=== PATIENT | female | born 1995 | race Caucasian/White ===

== ENCOUNTER 2021-11-12 14:47 | Emergency (ER) | payer MEDICAID, SELFPAY ==
[2021-11-12 14:54] VITALS: BP 137/81; BP 140/83; PULSE 105; PULSE 92; RESP 16; TEMP 36.3; O2SAT 100; BMI 18.7
--- NOTE | 2021-11-12 15:05 | ECG_ITS ---
Test Reason : WEAKNESS Blood Pressure : / mmHG Vent. Rate : 087 BPM Atrial Rate : 087 BPM P-R Int : 122 ms QRS Dur : 086 ms QT Int : 400 ms P-R-T Axes : 047 082 -14 degrees QTc Int : 481 ms Normal sinus rhythm T wave abnormality, consider inferior ischemia Prolonged QT Abnormal ECG No previous ECGs available Referred By: Ashley Mark Electronically Signed By:ROSIO BURTON
--- NOTE | 2021-11-12 15:08 | ED_ITS ---
HPI - Arrhythmia/Palpitations General Chief Complaint: Weakness Stated Complaint: increased hr Time Seen by Provider: 11/12/21 14:55 Source: patient Mode of arrival: EMS Limitations: no limitations History of Present Illness HPI narrative: Patient presents emergency department for evaluation of palpitations. She s tates that palpitations began 1 hour prior to arrival, and has associated intermittent shortness of breath and tingling sensation to the bilateral hands. She reports a history of anemia and the thyroid problem. Last blood transfusion was 1.5 years ago. Not currently taking any medications for her thyroid. Denies possibility of , history of tubal ligation currently menstruating. Denies heavy menstrual bleeding at this time. MD complaint: heart racing Onset (ago): hour(s) Duration: constant Associated symptoms: shortness of breath and paresthesias Related Data Allergies Allergy/AdvReac Type Severity Reaction Status Date / Time Penicillins Allergy Intermediate Unknown Verified 11/12/21 15:08 oxycodone Allergy Unknown Unknown Verified 11/12/21 15:08 codeine Allergy Unknown Verified 11/12/21 15:08 Review of Systems Review of Systems: Constitutional: No weight loss. No fever. No chills. No weakness. No fatigue. Eye: No swelling. No redness. ENT: No sore throat. No rhinorrhea. No nasal congestion. No sore throat. No difficulty swallowing. Skin: No rash. No itching. Cardiovascular: No chest pain. No chest pressure. Positive palpitations. No pedal edema. Respiratory: No shortness of breath. No cough. No sputum production. Gastrointestinal: No anorexia. No nausea. No vomiting. No diarrhea. No abdominal pain. No blood in stool. Genitourinary: No burning micturition. No urinary frequency. No incontinence. Neurologic: No headache. No dizziness. No pre-syncope/ syncope. No unilateral weakness. No ataxia. No numbness. Positive tingling. No change in bowel or bladder control. Musculoskeletal: No muscle pain. No back pain. No joint pain. No stiffness. Hematologic: No bleeding. No bruising. Lymphatics: No enlarged lymph nodes. Psychiatric:No depression. No anxiety. Endocrine: No reports of sweating. No cold or heat intolerance. No polyuria. No polydipsia. Yes all other systems are reviewed and are negative PMFSH Past Medical History Attestation statement: The following information was validated with the patient. Source: old records reviewed Social History Social History Advance Directives: No Advance Directives Information Provided: No Patient : No Physical Exam Vital Signs: Vital Signs: Last Vital Signs Temp 97.4 F 11/12/21 14:54 Pulse 87 11/12/21 16:44 Resp 20 11/12/21 16:44 BP 124/73 11/12/21 16:44 Pulse Ox 100 11/12/21 16:44 O2 Del Method 11/12/21 16:44 BMI result Body Mass Index 18.7 Vital signs have been reviewed as normal and appeared to be correct. Mild hyper tension.? Heart rate normal.? Respiration rate normal. Temperature normal.? Oxygen saturation normal. Appearance: Alert.?Oriented to person, place and time. No acute distress.?Normal affect. Eyes: Pupils equal, round and reactive to light.? ENT: Pharynx normal.?? Neck: Normal inspection.? Neck supple.?? CVS: Heart sounds normal. Mild tachycardia.? Pulses normal.?? Respiratory: No respiratory distress.? Lung sounds clear to auscultation bilat erally?? Abdomen: Soft and non-tender. Normoactive bowel sounds. No pulsatile mass.?? Skin: Skin warm and dry.? Skin appears pale.? Normal skin turgor.?? Extremities: No lower extremity edema.? No calf ttp? Neuro: Moves all extremities spontaneously. Sensation intact bilaterally. No motor deficits Ambulates with normal steady gait. Course Course Course Narrative: Patient is a 26-year-old female with a past medical history of anemia, abnormal thyroid function, presenting for evaluation of palpitations x1 hour. She is overall well appearing, hemodynamically stable mild hypertension and tachycardia with heart rate no greater than 105. Will obtain CBC to evaluate for leukocytosis/ anemia, CMP to evaluate for abnormal electrolytes /abnormal renal function/ abnormal hepatic function, EKG and troponin to evaluate for ischemia/ACS. Urinalysis to evaluate for infection/ . Reevaluation(s) Reevaluation #1: Microcytic anemia hemoglobin 10.8 hematocrit 34.5. CMP is overall unremarkable. EKG with T-wave inversions in the inferior and anterior leads no prior EKGs available for review, patient unaware whether this is been present in the past when asked, no active chest pain, Troponin <3.5, HEART score 0, unlikely ACS. TSH is normal. No further reports of palpitations. Urinalysis unable to be obtained, patient declines waiting to have urinalysis sent, denies possibility of as she has a tubal ligation. Discussed plan of care for patient to establish care with a new primary care provider she has recently moved to this area, discussed reasons that she should return back to the emergency department, all questions were answered, and she was discharged home in stable condition. Time: 16:22 [facility] - Arrhythmia/Palpitations Medical Records Attestation: I reviewed the patient's medical records. Lab Data Attestation: I reviewed the patient's lab results. Result diagrams: 11/12/21 15:43 11/12/21 15:43 Labs: Lab Results 11/12/21 11/12/21 11/12/21 Range/Units 15:43 15:43 15:43 WBC 7.5 (4.8-10.8) X10*3/uL RBC 4.36 (4.20-5.50) X10*6/uL Hgb 10.8 L (12.0-16.0) g/dl Hct 34.5 L (37.0-47.0) % MCV 79.1 L (80.0-98.0) fL MCH 24.8 L (27.0-33.0) pg MCHC 31.3 (31.0-35.0) g/dl RDW 16.3 H (11.0-16.0) % Plt Count 312 (160-400) X10*3/uL MPV 10.0 (9.4-12.3) fL Immature Gran % (Auto) 0.1 (0.0-0.4) % Neut % (Auto) 84.1 H (45-73) % Lymph % (Auto) 10.9 L (20-40) % [place] % (Auto) 4.4 (2-11) % Eos % (Auto) 0.1 (0-4) % Baso % (Auto) 0.4 (0-2) % Lymph # (Auto) 0.8 L (1.2-4.9) X10*3/uL [place] # (Auto) 0.3 (0.1-1.2) X10*3/uL Eos # (Auto) 0.0 (0.0-0.4) X10*3/uL Baso # (Auto) 0.0 (0.0-0.2) X10*3/uL Abs Immat Gran (auto) 0.01 (0.00-0.03) X10*3/uL Absolute Neuts (auto) 6.3 (2.0-8.3) x10*3/uL Absolute Nucleated RBC 0.000 (0.0-0.012) X10*3/uL Nucleated RBC % (auto) 0.0 (0.0-0.2) /100WBC Sodium 139 (135-145) mmol/L Potassium 4.0 (3.3-5.1) mmol/L Chloride 108 (96-108) mmol/L Carbon Dioxide 21 L (22-29) mmol/L Anion Gap 14 (12-20) BUN 7 L (9-16) mg/dL Creatinine 0.73 (0.5-1.4) mg/dL Estim Creat Clear Calc 94.0 Estimated GFR > 60 Random Glucose 92 (60-115) mg/dL Calcium 8.9 (8.4-10.2) mg/dL Magnesium 1.7 (1.6-2.6) mg/dL Total Bilirubin 0.3 (0.0-1.0) mg/dL AST 21 (5-31) U/L ALT 10 (0-31) U/L Alkaline Phosphatase 95 (39-117) U/L Troponin I High Sens < 3.5 (<3.5-17.0) ng/L Total Protein 6.8 (6.5-8.0) g/dL Albumin 4.4 (3.5-5.0) g/dL TSH 0.72 (0.32-4.0) uIU/mL ECG Data Attestation: I personally reviewed and interpreted this ECG as follows: ECG interpretation date: 11/12/21 Prior ECG tracings: not available for review Interpretation: Rate: 87 Rhythm:? Normal sinus rhythm [place]:? Normal Normal P waves.? Normal [place].?? Normal QRS complex.?? ST T wave :? T-wave inversion in inferior and anterior leads, no prior EKGs available. qTC: 481 prior studies:? None available for review. The study has been interpreted contemporaneously by me. Discharge Plan Discharge Clinical Impression: Palpitations, Anemia Patient Disposition: Home, Self-Care Instructions: Heart Palpitations (ED), Anemia (ED) Additional Instructions: As we discussed, you are anemic, you should contact local primary care offices to establish care as a new patient. You may return to the emergency department with any new or worsening symptoms or concerns. Interventions: ED Discharge Assessment Last Done: 11/12/21 17:13 Discharge Date/Time: 11/12/21 17:13
[2021-11-12 15:49] LABS: MANUAL DIFF FLAG NO
[2021-11-12 15:51] LABS: Basophils Percent Auto 0.4 % (0-2); Eosinophils Percent Auto 0.1 % (0-4); Hematocrit 34.5 % (37.0-47.0); Hemoglobin 10.8 g/dl (12.0-16.0); Imm Gran Abs Auto 0.01 X10*3/uL (0.00-0.03); Imm Gran Pct Auto 0.1 % (0.0-0.4); Lymphocytes Absolute Auto 0.8 X10*3/uL (1.2-4.9); Lymphocytes Percent Auto 10.9 % (20-40); Mean Corpuscular HGB Conc 31.3 g/dl (31.0-35.0); Mean Corpuscular Hemoglobin 24.8 pg (27.0-33.0); Mean Corpuscular Volume 79.1 fL (80.0-98.0); Monocytes Absolute Auto 0.3 X10*3/uL (0.1-1.2); Monocytes Percent Auto 4.4 % (2-11); Neutrophils Absolute Auto 6.3 x10*3/uL (2.0-8.3); Neutrophils Percent Auto 84.1 % (45-73); Platelet Count 312 X10*3/uL (160-400); Red Blood Count 4.36 X10*6/uL (4.20-5.50); Red Cell Distribution Width 16.3 % (11.0-16.0); White Blood Count 7.5 X10*3/uL (4.8-10.8)
[2021-11-12 16:19] LABS: Alanine Aminotransferase 10 U/L (0-31); Albumin Level 4.4 g/dL (3.5-5.0); Alkaline Phosphatase 95 U/L (39-117); Anion Gap 14 (12-20); Aspartate Amino Transferase 21 U/L (5-31); Bilirubin Total 0.3 mg/dL (0.0-1.0); Blood Urea Nitrogen 7 mg/dL (9-16); Calcium 8.9 mg/dL (8.4-10.2); Carbon Dioxide 21 mmol/L (22-29); Chloride 108 mmol/L (96-108); Estimated Glomerular Filt Rate > 60; Glucose Random 92 mg/dL (60-115); Magnesium 1.7 mg/dL (1.6-2.6); Sodium 139 mmol/L (135-145); Total Protein 6.8 g/dL (6.5-8.0)
[2021-11-12 16:22] LABS: Troponin-I High Sensitivity < 3.5 ng/L (<3.5-17.0)
[2021-11-12 16:39] LABS: TSH reflex Free T4 0.72 uIU/mL (0.32-4.0)
[2021-11-12 16:44] VITALS: BP 124/73; PULSE 87; RESP 20; O2SAT 100
[2021-11-12 18:35] LABS: Glucose, Whole Blood 97 mg/dL (60-115)
== END 2021-11-12 17:13 | disposition home or self-care (01) ==
PROVIDERS: Nurse Practitioner Family; Emergency Provider Emergency Medicine
DX: R00.2 Palpitations (principal); D64.9 Anemia, unspecified; E07.9 Disorder of thyroid, unspecified
CPT/HCPCS: 36415; 80053; 82947; 83735; 84443; 84484; 85025; 93005; 99283; 99284

== ENCOUNTER 2021-11-26 12:05 | Emergency (ER) | payer MEDICAID, SELFPAY ==
[2021-11-26 12:08] VITALS: BP 120/70; PULSE 84; O2SAT 99
--- NOTE | 2021-11-26 12:10 | ECG_ITS ---
Test Reason : TACHYCARDIA Blood Pressure : / mmHG Vent. Rate : 077 BPM Atrial Rate : 077 BPM P-R Int : 110 ms QRS Dur : 072 ms QT Int : 402 ms P-R-T Axes : 070 079 019 degrees QTc Int : 454 ms poor\ Sinus rhythm with short ND Otherwise normal ECG When compared with ECG of 12-NOV-2021 15:23, T wave inversion no longer evident in Inferior leads T wave inversion no longer evident in Anterior leads Referred By: Rohan Collins Electronically Signed By:JANICE COLE MD
[2021-11-26 12:17] VITALS: BP 115/71; PULSE 70; RESP 18; TEMP 36.1; O2SAT 100; BMI 17.1
[2021-11-26 14:50] LABS: MANUAL DIFF FLAG NO
[2021-11-26 14:54] LABS: Basophils Percent Auto 0.4 % (0-2); Eosinophils Percent Auto 0.1 % (0-4); Hematocrit 35.1 % (37.0-47.0); Hemoglobin 10.9 g/dl (12.0-16.0); Imm Gran Abs Auto 0.02 X10*3/uL (0.00-0.03); Imm Gran Pct Auto 0.3 % (0.0-0.4); Lymphocytes Absolute Auto 1.5 X10*3/uL (1.2-4.9); Lymphocytes Percent Auto 19.5 % (20-40); Mean Corpuscular HGB Conc 31.1 g/dl (31.0-35.0); Mean Corpuscular Hemoglobin 24.4 pg (27.0-33.0); Mean Corpuscular Volume 78.7 fL (80.0-98.0); Mean Platelet Volume 10.5 fL (9.4-12.3); Monocytes Absolute Auto 0.4 X10*3/uL (0.1-1.2); Monocytes Percent Auto 5.8 % (2-11); Neutrophils Absolute Auto 5.5 x10*3/uL (2.0-8.3); Neutrophils Percent Auto 73.9 % (45-73); Platelet Count 291 X10*3/uL (160-400); Red Blood Count 4.46 X10*6/uL (4.20-5.50); Red Cell Distribution Width 15.7 % (11.0-16.0); White Blood Count 7.5 X10*3/uL (4.8-10.8)
[2021-11-26 15:11] LABS: Alanine Aminotransferase 11 U/L (0-31); Albumin Level 4.6 g/dL (3.5-5.0); Alkaline Phosphatase 101 U/L (39-117); Anion Gap 14 (12-20); Aspartate Amino Transferase 24 U/L (5-31); Bilirubin Total 0.9 mg/dL (0.0-1.0); Blood Urea Nitrogen 9 mg/dL (9-16); Calcium 9.3 mg/dL (8.4-10.2); Carbon Dioxide 23 mmol/L (22-29); Chloride 104 mmol/L (96-108); Creatinine Clr Calc Pharmacy 93.7; Estimated Glomerular Filt Rate > 60; Glucose Random 101 mg/dL (60-115); Potassium 4.3 mmol/L (3.3-5.1); Sodium 137 mmol/L (135-145); Total Protein 7.5 g/dL (6.5-8.0)
[2021-11-26 15:14] LABS: Troponin-I High Sensitivity < 3.5 ng/L (<3.5-17.0)
--- NOTE | 2021-11-26 15:40 | ED_ITS ---
HPI - Arrhythmia/Palpitations General Chief Complaint: Arrhythmia/Palpitations Stated Complaint: tachycardia Time Seen by Provider: 11/26/21 15:05 Source: patient Mode of arrival: ambulatory Limitations: no limitations History of Present Illness HPI narrative: 26-year-old female with history of anxiety, asthma, anemia here with reports of episode of chest pain, shortness of breath, palpitations, hand and feet tingling and numbness and cramping which happened earlier today. Symptoms are improved on arrival to the emergency department. Patient reports similar episode 2 weeks ago seen here in the emergency department. Had labs EKG at that time which are reassuring. Patient denies any recent travel. No sick contact. No associated fevers, chills, cough, leg swelling or leg pain. Patient reports she recently moved here with her 3 children and her partner. She reports here trying to find a living situation, a new job. She has children at home that do cause some stress. She also reports stress living with her in-laws. Related Data Previous Rx's Medication Instructions Recorded lorazepam 0.5 mg tablet 0.5 mg PO TID PRN anxiety #10 tabs 11/26/21 Allergies Allergy/AdvReac Type Severity Reaction Status Date / Time Penicillins Allergy Intermediate Unknown Verified 11/12/21 15:08 oxycodone Allergy Unknown Unknown Verified 11/12/21 15:08 codeine Allergy Unknown Verified 11/12/21 15:08 Review of Systems Review of Systems: Yes all other systems are reviewed and are negative Constitutional: Constitutional: Reports no additional constitutional complaints, Denies body ache(s), Denies chills, Denies fever(s), Denies headache(s) and Denies weakness Eyes: Eyes: Reports no additional eye complaints and Denies change in vision ENT: Reports system reviewed and no additional complaints, except as documented, Denies dizziness, Denies headache(s), Denies nasal congestion, Denies nasal discharge and Denies neck pain Cardiovascular: Cardiovascular: Reports no additional cardiovascular complaints, Reports chest pain, Denies leg edema, Reports palpitations and Reports dyspnea Respiratory: Respiratory: Reports no additional respiratory complaints, Denies cough and Reports dyspnea Gastrointestinal: Gastrointestinal: Reports no additional gastrointestinal complaints, Denies abdominal pain, Denies diarrhea, Denies nausea and Denies vomiting Genitourinary: Genitourinary: Reports no additional female genitourinary complaints and Denies urinary incontinence Musculoskeletal: Musculoskeletal: Reports no additional musculoskeletal complaints, Denies back pain, Denies arthralgias, Denies joint swelling, Denies neck pain, Reports numbness and Reports tingling Integumentary/Breasts: Skin/Breast: Reports system reviewed and no additional complaints, except as docu and Denies rash Neurologic: Reports system reviewed and no additional complaints, except as documented, Denies Abnormal speech present, Denies dizziness, Denies head ache(s), Reports numbness, Reports tingling and Denies weakness Endocrine: Endocrine: Reports palpitations [facility] Past Medical History Attestation statement: The following information was validated with the patient. Source: old records reviewed Social History Social History Advance Directives: No Advance Directives Information Provided: No Physical Exam Vital Signs: Vital Signs: Last Vital Signs Temp 97.0 F 11/26/21 12:17 Pulse 70 11/26/21 12:17 Resp 18 11/26/21 12:17 BP 115/71 11/26/21 12:17 Pulse Ox 100 11/26/21 12:17 O2 Del Method 11/26/21 12:17 BMI result Body Mass Index 17.1 Const: General: cooperative, healthy appearing, comfortable and no acute distress Orientation/consciousness: patient oriented x3 Limitations: no limitations HEENT: Head: Yes normal to inspection Ears: hearing grossly normal bilaterally General nose exam: Normal external nose present Face and sinus: Yes normal facial exam Mouth: Normal oral and palatal mucosa present Throat: Yes posterior oropharynx normal Eyes: General: appearance normal, both eyes and all related structures Pupils: Equal, round and reactive pupils present Neck: Neck: Yes normal visual inspection Chest: Chest palpation & inspection: normal inspection of the chest Resp: Effort & Inspection: normal respiratory effort Auscultation: clear to auscultation bilaterally Cardio: Rate: regular rate Rhythm: regular rhythm Peripheral pulses: Peripheral pulses 2+ throughout GI: Inspection: Yes normal to inspection Palpation (GI): Soft to palpation and nontender Auscultation: normal bowel sounds Back/Spine/Pelvis: Thoracic/Lumbar Spine: thoracic and lumbar spine normal to inspection Skin: General skin exam: no rashes or lesions noted Neuro: General: patient oriented x3, no focal motor deficits and normal sensation to monofilament Cranial nerves: Yes Equal, round and reactive pupils present Cognition (Neuro): normal cognition Speech: No Abnormal speech present Gait exam (Neuro): Normal gait present Motor exam (neuro): 5/5 motor strength present throughout Extrem: General: Yes normal to inspection, Yes no pedal edema and Yes no calf tenderness Course Course Course Narrative: Reviewed labs show mild anemia. Unchanged from previous. Additional labs unremarkable. EKG shows no ischemic changes. Patient reports improvement after receiving a dose of lorazepam. Likely anxiety. Recommend follow-up outpatient with primary care doctor. Reviewed worrisome signs and symptoms when to return to the emergency department. Comfortable discharge home. MDM - Arrhythmia/Palpitations MDM Narrative Medical decision making narrative: 26-year-old female here with episode of shortness of breath, chest pain, palpitations and numbness and tingling of bilateral hands and feet which occurred prior to arrival and is now resolved. Patient reports feeling anxious but overall is improved. Normal neuro exam. Vitals are stable. Will check EKG, labs. -low concern for ACS due to age, atypical symptoms. -low concern for PE with no reports of hypoxia, tachypnea, tachycardia and no cl inical findings concerning for DVT Medical Records Attestation: I reviewed the patient's medical records. Lab Data Attestation: I reviewed the patient's lab results. Result diagrams: 11/26/21 14:32 11/26/21 14:32 Labs: Lab Results 11/26/21 11/26/21 11/26/21 Range/Units 14:32 14:32 14:32 WBC 7.5 (4.8-10.8) X10*3/uL RBC 4.46 (4.20-5.50) X10*6/uL Hgb 10.9 L (12.0-16.0) g/dl Hct 35.1 L (37.0-47.0) % MCV 78.7 L (80.0-98.0) fL MCH 24.4 L (27.0-33.0) pg MCHC 31.1 (31.0-35.0) g/dl RDW 15.7 (11.0-16.0) % Plt Count 291 (160-400) X10*3/uL MPV 10.5 (9.4-12.3) fL Immature Gran % (Auto) 0.3 (0.0-0.4) % Neut % (Auto) 73.9 H (45-73) % Lymph % (Auto) 19.5 L (20-40) % [place] % (Auto) 5.8 (2-11) % Eos % (Auto) 0.1 (0-4) % Baso % (Auto) 0.4 (0-2) % Lymph # (Auto) 1.5 (1.2-4.9) X10*3/uL [place] # (Auto) 0.4 (0.1-1.2) X10*3/uL Eos # (Auto) 0.0 (0.0-0.4) X10*3/uL Baso # (Auto) 0.0 (0.0-0.2) X10*3/uL Abs Immat Gran (auto) 0.02 (0.00-0.03) X10*3/uL Absolute Neuts (auto) 5.5 (2.0-8.3) x10*3/uL Absolute Nucleated RBC 0.000 (0.0-0.012) X10*3/uL Nucleated RBC % (auto) 0.0 (0.0-0.2) /100WBC Sodium 137 (135-145) mmol/L Potassium 4.3 (3.3-5.1) mmol/L Chloride 104 (96-108) mmol/L Carbon Dioxide 23 (22-29) mmol/L Anion Gap 14 (12-20) BUN 9 (9-16) mg/dL Creatinine 0.67 (0.5-1.4) mg/dL Estim Creat Clear Calc 93.7 Estimated GFR > 60 Random Glucose 101 (60-115) mg/dL Calcium 9.3 (8.4-10.2) mg/dL Total Bilirubin 0.9 (0.0-1.0) mg/dL AST 24 (5-31) U/L ALT 11 (0-31) U/L Alkaline Phosphatase 101 (39-117) U/L Troponin I High Sens < 3.5 (<3.5-17.0) ng/L Total Protein 7.5 (6.5-8.0) g/dL Albumin 4.6 (3.5-5.0) g/dL ECG Data Attestation: I personally reviewed and interpreted this ECG as follows: ECG interpretation date: 11/26/21 ECG interpretation time: 12:18 Interpretation: Sinus rhythm with short [place] with rate of 77, normal QRS, normal QT Discharge Plan Discharge Clinical Impression: Anxiety Patient Disposition: Home, Self-Care Instructions: Anxiety (ED) Additional Instructions: Your lab work, EKG are reassuring Establish a primary care doctor as discussed Eat frequent small meals throughout the day Drink fluids Prescriptions: New lorazepam 0.5 mg tablet 0.5 mg PO TID PRN (Reason: anxiety) Qty: 10 0RF Referrals: Physician,Unknown J [Primary Care Provider] - Interventions: ED Discharge Assessment Last Done: 11/26/21 15:49 Discharge Date/Time: 11/26/21 15:52
[2021-11-26] MEDS: LORazepam 1 MG TABLET PO (15:50)
== END 2021-11-26 15:52 | disposition home or self-care (01) ==
PROVIDERS: Emergency Provider Emergency Medicine Emergency Medical Services
DX: R00.2 Palpitations (principal); R07.89 Other chest pain; F41.1 Generalized anxiety disorder; F43.0 Acute stress reaction; Z79.899 Other long term (current) drug therapy
CPT/HCPCS: 36415; 80053; 84484; 85025; 93005; 99283

== ENCOUNTER 2022-01-17 01:15 | Emergency (ER) | payer MEDICAID, SELFPAY ==
--- NOTE | 2022-01-17 | ECG_ITS ---
Test Reason : palpations Blood Pressure : / mmHG Vent. Rate : 082 BPM Atrial Rate : 082 BPM P-R Int : 128 ms QRS Dur : 076 ms QT Int : 394 ms P-R-T Axes : 081 067 001 degrees QTc Int : 460 ms Normal sinus rhythm Normal ECG When compared with ECG of 26-NOV-2021 12:18, No significant change was found Referred By: Generic ED Physician Electronically Signed By:DANIEL SCHULZ
[2022-01-17 01:45] VITALS: BP 143/90; PULSE 87; RESP 18; TEMP 36.9; O2SAT 97; BMI 17.8
[2022-01-17 02:20] LABS: MANUAL DIFF FLAG NO
[2022-01-17 02:24] LABS: Basophils Absolute Auto 0.1 X10*3/uL (0.0-0.2); Basophils Percent Auto 0.9 % (0-2); Eosinophils Absolute Auto 0.1 X10*3/uL (0.0-0.4); Eosinophils Percent Auto 1.3 % (0-4); Hematocrit 38.4 % (37.0-47.0); Hemoglobin 12.3 g/dl (12.0-16.0); Imm Gran Abs Auto 0.01 X10*3/uL (0.00-0.03); Imm Gran Pct Auto 0.1 % (0.0-0.4); Lymphocytes Absolute Auto 2.9 X10*3/uL (1.2-4.9); Lymphocytes Percent Auto 41.8 % (20-40); Mean Corpuscular Volume 81.2 fL (80.0-98.0); Mean Platelet Volume 10.7 fL (9.4-12.3); Monocytes Absolute Auto 0.5 X10*3/uL (0.1-1.2); Neutrophils Absolute Auto 3.4 x10*3/uL (2.0-8.3); Neutrophils Percent Auto 48.9 % (45-73); Platelet Count 349 X10*3/uL (160-400); Red Blood Count 4.73 X10*6/uL (4.20-5.50); Red Cell Distribution Width 17.8 % (11.0-16.0)
[2022-01-17 02:38] LABS: Alanine Aminotransferase 12 U/L (0-31); Albumin Level 4.4 g/dL (3.5-5.0); Alkaline Phosphatase 101 U/L (39-117); Anion Gap 15 (12-20); Aspartate Amino Transferase 24 U/L (5-31); Bilirubin Total 0.2 mg/dL (0.0-1.0); Blood Urea Nitrogen 11 mg/dL (9-16); Calcium 9.3 mg/dL (8.4-10.2); Carbon Dioxide 22 mmol/L (22-29); Chloride 103 mmol/L (96-108); Creatinine Clr Calc Pharmacy 59.3; Estimated Glomerular Filt Rate > 60; Glucose Random 98 mg/dL (60-115); Sodium 136 mmol/L (135-145); Total Protein 7.3 g/dL (6.5-8.0)
[2022-01-17 02:41] LABS: Troponin-I High Sensitivity < 3.5 ng/L (<3.5-17.0)
[2022-01-17 02:57] LABS: Thyroid Stimulating Hormone 3.32 uIU/mL (0.32-4.0)
[2022-01-17 03:12] VITALS: BP 110/70; PULSE 74; RESP 14; TEMP 36.8; O2SAT 98
--- NOTE | 2022-01-17 03:23 | ED.GENADULT ---
HPI - General Adult General Chief complaint: General Medical Stated complaint: hyperthyroidism, heart racing,difficulty breathing Time Seen by Provider: 01/17/22 03:15 Source: patient Limitations: no limitations History of Present Illness HPI narrative: This is a 26-year-old female who states she has history of ?subclinical hyperthyroidism?, who complains of her heart racing off and on. The patient states she has been referred to an stained glass painter but cannot see him and pull May. She states she had relocated here from [place] about 3 months ago. She states she has worn a heart monitor in the past, earlier this year for only about 4 days. She also states that she has hot flashes, is chronically losing weight. She states that back when she was 19 she lost a lot of her hair. She notes that she is a mother of 3 healing children and wants to get this issue taken care of as soon as possible. She states she has had thyroid ultrasound in the past. Related Data Previous Rx's Medication Instructions Recorded lorazepam 0.5 mg tablet 0.5 mg PO TID PRN anxiety #10 tabs 11/26/21 Allergies Allergy/AdvReac Type Severity Reaction Status Date / Time Penicillins Allergy Intermediate Unknown Verified 11/12/21 15:08 oxycodone Allergy Unknown Unknown Verified 11/12/21 15:08 codeine Allergy Unknown Verified 11/12/21 15:08 Review of Systems Review of Systems: Yes all other systems are reviewed and are negative Constitutional: Constitutional: Reports as per HPI, Reports fatigue and Denies fever(s) Eyes: Eyes: Reports as per HPI and Reports no additional eye complaints ENT: Reports system reviewed and no additional complaints, except as documented, Reports as per HPI, Denies nasal congestion, Denies nasal discharge and Denies sore throat Cardiovascular: Cardiovascular: Reports as per HPI, Denies chest pain, Reports rapid heart rate and Denies dyspnea Respiratory: Respiratory: Reports as per HPI, Denies cough and Denies dyspnea Gastrointestinal: Gastrointestinal: Reports as per HPI, Denies abdominal pain, Denies diarrhea and Denies vomiting Genitourinary: Genitourinary: Reports as per HPI Musculoskeletal: Musculoskeletal: Reports no additional musculoskeletal complaints Integumentary/Breasts: Skin/Breast: Reports as per HPI and Denies rash Neurologic: Reports as per HPI and Denies focal weakness Psychiatric: Psychiatric: Reports no additional psychiatric complaints and Reports as per HPI Endocrine: Endocrine: Reports no additional endocrine complaints, Reports as per HPI and Reports fatigue Hematologic/Lymphatic: Hematologic/Lymphatic: Reports no additional hematologic/lymphatic complaints, Reports as per HPI and Reports other (No peripheral edema) [facility] Social History Social History Advance Directives: No Physical Exam ED Vital Signs: Vital Signs - 24 hr 01/17/22 01:45 01/17/22 03:12 Temperature 98.4 F 98.3 F Pulse Rate 87 74 Respiratory Rate 18 14 Blood Pressure 143/90 H 110/70 Pulse Oximetry 97 98 Oxygen Delivery Method Room Air Room Air BMI result Body Mass Index 17.8 Const Other: Patient somewhat thin-appearing General: no acute distress Orientation/consciousness: patient oriented x3 HENMT Head: Yes normal to inspection General nose exam: Normal external nose present Mouth: moist mucous membranes Throat: Yes posterior oropharynx normal, Yes tonsils normal and Yes uvula midline Eyes Eyelids: Yes eyelids normal Conjunctivae: conjunctivae normal Pupils: Equal, round and reactive pupils present Neck Neck: Yes supple Resp Effort & Inspection: normal respiratory effort Auscultation: clear to auscultation bilaterally Cardio Rate: regular rate Rhythm: regular rhythm Heart sounds: S1 normal heart sound present, S2 normal heart sound present, no gallops, no murmurs and no rubs GI Inspection: No distended Palpation (GI): Soft to palpation and nontender Auscultation: normal bowel sounds Skin General skin exam: other (Warm and dry) Neuro General: patient oriented x3 and CN's II-XI intact bilaterally Cranial nerves: Yes Equal, round and reactive pupils present Extrem General: Yes no pedal edema Psych Other: Appears somewhat anxious Affect: normal affect Attitude: cooperative Course Course Course Narrative: Patient with complaint of her heart racing at times, has been seen for the same previously, diagnosed with anxiety. Patient states she has subclinical hyperthyroidism. TSH is normal, heart rate is normal, EKG is normal. Patient states she has history of anemia however her CBC is normal here Medical Decision Making Lab Data Lab results reviewed: Yes I reviewed the patient's lab results. Result diagrams: 01/17/22 02:14 01/17/22 02:14 Labs: Lab Results 08/16/22 08/16/22 08/16/22 Range/Units 02:14 02:14 02:14 WBC 7.0 (4.8-10.8) X10*3/uL RBC 4.73 (4.20-5.50) X10*6/uL Hgb 12.3 (12.0-16.0) g/dl Hct 38.4 (37.0-47.0) % MCV 81.2 (80.0-98.0) fL MCH 26.0 L (27.0-33.0) pg MCHC 32.0 (31.0-35.0) g/dl RDW 17.8 H (11.0-16.0) % Plt Count 349 (160-400) X10*3/uL MPV 10.7 (9.4-12.3) fL Immature Gran % (Auto) 0.1 (0.0-0.4) % Neut % (Auto) 48.9 (45-73) % Lymph % (Auto) 41.8 H (20-40) % [place] % (Auto) 7.0 (2-11) % Eos % (Auto) 1.3 (0-4) % Baso % (Auto) 0.9 (0-2) % Lymph # (Auto) 2.9 (1.2-4.9) X10*3/uL [place] # (Auto) 0.5 (0.1-1.2) X10*3/uL Eos # (Auto) 0.1 (0.0-0.4) X10*3/uL Baso # (Auto) 0.1 (0.0-0.2) X10*3/uL Abs Immat Gran (auto) 0.01 (0.00-0.03) X10*3/uL Absolute Neuts (auto) 3.4 (2.0-8.3) x10*3/uL Absolute Nucleated RBC 0.000 (0.0-0.012) X10*3/uL Nucleated RBC % (auto) 0.0 (0.0-0.2) /100WBC Sodium 136 (135-145) mmol/L Potassium 4.0 (3.3-5.1) mmol/L Chloride 103 (96-108) mmol/L Carbon Dioxide 22 (22-29) mmol/L Anion Gap 15 (12-20) BUN 11 (9-16) mg/dL Creatinine 1.07 (0.5-1.4) mg/dL Estim Creat Clear Calc 59.3 Estimated GFR > 60 Random Glucose 98 (60-115) mg/dL Calcium 9.3 (8.4-10.2) mg/dL Total Bilirubin 0.2 (0.0-1.0) mg/dL AST 24 (5-31) U/L ALT 12 (0-31) U/L Alkaline Phosphatase 101 (39-117) U/L Troponin I High Sens < 3.5 (<3.5-17.0) ng/L Total Protein 7.3 (6.5-8.0) g/dL Albumin 4.4 (3.5-5.0) g/dL TSH 3.32 (0.32-4.0) uIU/mL ECG Data Attestation: I personally reviewed and interpreted this ECG as follows: Interpretation: Sinus rhythm with a rate of 82. No ST elevation or depression. No ectopy. Normal QRS axis. Normal EKG Discharge Plan Discharge Clinical Impression: Palpitations Patient Disposition: Home, Self-Care Instructions: Heart Palpitations (ED) Additional Instructions: Follow-up with your primary care physician, and with the stained glass painter. Your TSH level was normal here tonight, as was your blood count. Her heart rate is normal. Your primary care physician may want to have you wear an event monitor for a month to ascertain whether you are having heart arrhythmias (irregular or fast heart rate). Return for any new or worsened symptoms Prescriptions: No Action lorazepam 0.5 mg tablet 0.5 mg PO TID PRN (Reason: anxiety) Qty: 10 0RF
== END 2022-01-17 03:35 | disposition home or self-care (01) ==
PROVIDERS: Emergency Provider Emergency Medicine; PCP Family Medicine
DX: R00.2 Palpitations (principal); R06.02 Shortness of breath; Z79.899 Other long term (current) drug therapy
CPT/HCPCS: 36415; 80053; 84443; 84484; 85025; 93005; 99283; 99284

== ENCOUNTER 2022-02-07 13:06 | Emergency (ER) | payer MEDICAID, SELFPAY ==
--- NOTE | ~2022-02-07 | XR_ITS ---
EXAMINATION: XR CHEST CLINICAL INFORMATION: Chest pain. COMPARISON: None TECHNIQUE: Frontal view of the chest was obtained. FINDINGS: No significant abnormality is noted involving the heart, lungs, mediastinum, bony thorax or soft tissues. XR/XR chest 1V IMPRESSION: Unremarkable examination.
[2022-02-07 13:11] VITALS: BP 120/86; PULSE 98; O2SAT 98
[2022-02-07 13:39] VITALS: BP 129/78; PULSE 87; RESP 18; TEMP 36.6; O2SAT 99; BMI 17.6
--- NOTE | 2022-02-07 13:43 | ECG_ITS ---
Test Reason : CHEST PAIN Blood Pressure : / mmHG Vent. Rate : 084 BPM Atrial Rate : 084 BPM P-R Int : 126 ms QRS Dur : 082 ms QT Int : 386 ms P-R-T Axes : 077 075 -39 degrees QTc Int : 456 ms Normal sinus rhythm T wave abnormality, consider inferior ischemia Abnormal ECG When compared with ECG of 17-JAN-2022 01:24, T wave inversion more evident in Inferior leads Nonspecific T wave abnormality now evident in Anterolateral leads Referred By: Generic ED Physician Electronically Signed By:DANIEL SCHULZ
[2022-02-07 14:02] LABS: MANUAL DIFF FLAG NO
[2022-02-07 14:03] LABS: Basophils Percent Auto 0.6 % (0-2); Eosinophils Percent Auto 0.4 % (0-4); Hematocrit 40.6 % (37.0-47.0); Imm Gran Abs Auto 0.01 X10*3/uL (0.00-0.03); Imm Gran Pct Auto 0.2 % (0.0-0.4); Lymphocytes Absolute Auto 0.9 X10*3/uL (1.2-4.9); Lymphocytes Percent Auto 19.6 % (20-40); Mean Corpuscular Hemoglobin 26.4 pg (27.0-33.0); Mean Corpuscular Volume 82.5 fL (80.0-98.0); Mean Platelet Volume 10.1 fL (9.4-12.3); Monocytes Absolute Auto 0.5 X10*3/uL (0.1-1.2); Monocytes Percent Auto 10.1 % (2-11); Neutrophils Absolute Auto 3.3 x10*3/uL (2.0-8.3); Neutrophils Percent Auto 69.1 % (45-73); Platelet Count 314 X10*3/uL (160-400); Red Blood Count 4.92 X10*6/uL (4.20-5.50); Red Cell Distribution Width 17.2 % (11.0-16.0); White Blood Count 4.7 X10*3/uL (4.8-10.8)
[2022-02-07 14:20] LABS: COVID-19 Test Negative (Negative)
[2022-02-07 14:21] LABS: Troponin-I High Sensitivity < 3.5 ng/L (<3.5-17.0)
[2022-02-07 14:28] LABS: Anion Gap 16 (12-20); Blood Urea Nitrogen 6 mg/dL (9-16); Calcium 9.4 mg/dL (8.4-10.2); Carbon Dioxide 23 mmol/L (22-29); Chloride 105 mmol/L (96-108); Creatinine Clr Calc Pharmacy 80.6; Estimated Glomerular Filt Rate > 60; Glucose Random 84 mg/dL (60-115); Potassium 3.7 mmol/L (3.3-5.1); Sodium 140 mmol/L (135-145)
--- NOTE | 2022-02-07 16:27 | ED_ITS ---
HPI - Chest Pain General Chief Complaint: Chest Pain Stated Complaint: SOB,100% RA FROM PCP OFFICE PER EMS Time Seen by Provider: 02/07/22 16:25 Source: patient Limitations: no limitations History of Present Illness HPI narrative: This is a 26-year-old female with a history of ?subclinical hypothyroidism and ?, as well as anxiety and palpitations, who this morning had felt tingling in her hands, tried to lie down but felt worse with shortness of breath and chest tightness, and when she stood up she felt very dizzy, felt like she was bumping into things. Patient with your primary care physician who took her vital signs and referred her to the emergency department. The patient has been seen here before for similar symptoms, the last time January 17. Patient feels better now, has a little bit of chest pain, denies pleuritic pain, denies any pain or swelling in her legs. She is scheduled to wear a heart monitor next week. She also has follow-up with an sewing teacher in May. The patient is on hydroxyzine, and venlafaxine Related Data Previous Rx's Medication Instructions Recorded lorazepam 0.5 mg tablet 0.5 mg PO TID PRN anxiety #10 tabs 11/26/21 lorazepam 1 mg tablet 1 mg PO TID PRN anxiety #10 tabs 02/07/22 Allergies Allergy/AdvReac Type Severity Reaction Status Date / Time Penicillins Allergy Intermediate Unknown Verified 11/12/21 15:08 oxycodone Allergy Unknown Unknown Verified 11/12/21 15:08 codeine Allergy Unknown Verified 11/12/21 15:08 Review of Systems Review of Systems: Yes all other systems are reviewed and are negative Constitutional: Constitutional: Reports as per HPI and Denies fever(s) Eyes: Eyes: Reports as per HPI and Reports no additional eye complaints ENT: Reports system reviewed and no additional complaints, except as documented, Reports as per HPI, Reports dizziness, Denies nasal congestion, Denies nasal discharge and Denies sore throat Cardiovascular: Cardiovascular: Reports as per HPI, Reports chest pain and Reports dyspnea Respiratory: Respiratory: Reports as per HPI, Denies cough and Reports dyspnea Gastrointestinal: Gastrointestinal: Reports as per HPI, Denies abdominal pain, Denies diarrhea and Denies vomiting Genitourinary: Genitourinary: Reports as per HPI, Denies hematuria, Denies urinary frequency and Denies dysuria Musculoskeletal: Musculoskeletal: Reports no additional musculoskeletal complaints Integumentary/Breasts: Skin/Breast: Reports as per HPI and Denies rash Neurologic: Reports as per HPI, Reports dizziness, Denies focal weakness and Reports paresthesias Psychiatric: Psychiatric: Reports no additional psychiatric complaints and Reports as per HPI Endocrine: Endocrine: Reports no additional endocrine complaints and Reports as per HPI Hematologic/Lymphatic: Hematologic/Lymphatic: Reports no additional mery tologic/lymphatic complaints, Reports as per HPI and Reports other (No peripheral edema) [facility] Social History Social History Advance Directives: No Advance Directives Information Provided: Yes Physical Exam Vital Signs: Vital Signs: Last Vital Signs Temp 98 F 02/07/22 13:39 Pulse 87 02/07/22 13:39 Resp 18 02/07/22 13:39 BP 129/78 02/07/22 13:39 Pulse Ox 99 02/07/22 13:39 O2 Del Method 02/07/22 13:39 BMI result Body Mass Index 17.6 MDM - Chest Pain MDM Narrative Medical decision making narrative: Patient with her 3rd visit here for similar symptoms of palpitations, chest discomfort. Patient does have T-wave changes on her EKG but these appear to be chronic, slightly worse today but could be related to hyperventilation. Patient feels better now. Troponin negative. Heart rate and pulse oximetry normal. No pleuritic symptoms. No lower extremity pain or swelling. Patient has follow-up with cardiac monitoring ordered as well as endocrinology a patient consultation. Patient may benefit from cardiology evaluation, though I suspect that main problem is anxiety, for which she is already on venlafaxine and hydroxyzine. Will prescribe lorazepam to use p.r.n. panic attack Lab Data Attestation: I reviewed the patient's lab results. Result diagrams: 02/07/22 13:48 02/07/22 13:48 Labs: Lab Results 02/07/22 02/07/22 02/07/22 Range/Units 13:48 13:48 13:48 WBC 4.7 L (4.8-10.8) X10*3/uL RBC 4.92 (4.20-5.50) X10*6/uL Hgb 13.0 (12.0-16.0) g/dl Hct 40.6 (37.0-47.0) % MCV 82.5 (80.0-98.0) fL MCH 26.4 L (27.0-33.0) pg MCHC 32.0 (31.0-35.0) g/dl RDW 17.2 H (11.0-16.0) % Plt Count 314 (160-400) X10*3/uL MPV 10.1 (9.4-12.3) fL Immature Gran % (Auto) 0.2 (0.0-0.4) % Neut % (Auto) 69.1 (45-73) % Lymph % (Auto) 19.6 L (20-40) % [place] % (Auto) 10.1 (2-11) % Eos % (Auto) 0.4 (0-4) % Baso % (Auto) 0.6 (0-2) % Lymph # (Auto) 0.9 L (1.2-4.9) X10*3/uL [place] # (Auto) 0.5 (0.1-1.2) X10*3/uL Eos # (Auto) 0.0 (0.0-0.4) X10*3/uL Baso # (Auto) 0.0 (0.0-0.2) X10*3/uL Abs Immat Gran (auto) 0.01 (0.00-0.03) X10*3/uL Absolute Neuts (auto) 3.3 (2.0-8.3) x10*3/uL Absolute Nucleated RBC 0.000 (0.0-0.012) X10*3/uL Nucleated RBC % (auto) 0.0 (0.0-0.2) /100WBC Sodium 140 (135-145) mmol/L Potassium 3.7 (3.3-5.1) mmol/L Chloride 105 (96-108) mmol/L Carbon Dioxide 23 (22-29) mmol/L Anion Gap 16 (12-20) BUN 6 L (9-16) mg/dL Creatinine 0.78 (0.5-1.4) mg/dL Estim Creat Clear Calc 80.6 Estimated GFR > 60 Random Glucose 84 (60-115) mg/dL Calcium 9.4 (8.4-10.2) mg/dL Troponin I High Sens < 3.5 (<3.5-17.0) ng/L COVID-19 ([facility]) (Negative) COVID-19 Clin Com 02/07/22 Range/Units 13:48 WBC (4.8-10.8) X10*3/uL RBC (4.20-5.50) X10*6/uL Hgb (12.0-16.0) g/dl Hct (37.0-47.0) % MCV (80.0-98.0) fL MCH (27.0-33.0) pg MCHC (31.0-35.0) g/dl RDW (11.0-16.0) % Plt Count (160-400) X10*3/uL MPV (9.4-12.3) fL Immature Gran % (Auto) (0.0-0.4) % Neut % (Auto) (45-73) % Lymph % (Auto) (20-40) % [place] % (Auto) (2-11) % Eos % (Auto) (0-4) % Baso % (Auto) (0-2) % Lymph # (Auto) (1.2-4.9) X10*3/uL [place] # (Auto) (0.1-1.2) X10*3/uL Eos # (Auto) (0.0-0.4) X10*3/uL Baso # (Auto) (0.0-0.2) X10*3/uL Abs Immat Gran (auto) (0.00-0.03) X10*3/uL Absolute Neuts (auto) (2.0-8.3) x10*3/uL Absolute Nucleated RBC (0.0-0.012) X10*3/uL Nucleated RBC % (auto) (0.0-0.2) /100WBC Sodium (135-145) mmol/L Potassium (3.3-5.1) mmol/L Chloride (96-108) mmol/L Carbon Dioxide (22-29) mmol/L Anion Gap (12-20) BUN (9-16) mg/dL Creatinine (0.5-1.4) mg/dL Estim Creat Clear Calc Estimated GFR Random Glucose (60-115) mg/dL Calcium (8.4-10.2) mg/dL Troponin I High Sens (<3.5-17.0) ng/L COVID-19 ([facility]) Negative (Negative) COVID-19 Clin Com See Note Imaging Data Chest x-ray: Radiologist's impression: No acute pathology ECG Data ECG #1: Attestation: I personally reviewed and interpreted this ECG as follows: ECG interpretation date: 02/07/22 ECG interpretation time: 16:28 Prior ECG tracings: available for review Interpretation: Sinus rhythm with a rate of 84. Diffuse T-wave changes with T-wave inversion in leads 2 3 and AVF. Compared to 01/17/2022 T-wave inversion more evident in inferior leads Discharge Plan Discharge Clinical Impression: Anxiety, Palpitation Patient Disposition: Home, Self-Care Instructions: Heart Palpitations (ED), Anxiety (ED) Additional Instructions: Follow-up with primary care physician, and where the heart monitor as ordered by your primary care physician. Since your EKG has subtle changes, referral to a receiving tank operator by her primary care physician may be indicated. Prescriptions: New lorazepam 1 mg tablet 1 mg PO TID PRN (Reason: anxiety) Qty: 10 0RF No Action lorazepam 0.5 mg tablet 0.5 mg PO TID PRN (Reason: anxiety) Qty: 10 0RF
== END 2022-02-07 16:56 | disposition home or self-care (01) ==
PROVIDERS: Emergency Provider Emergency Medicine; PCP Family Medicine
DX: R07.89 Other chest pain (principal); R06.02 Shortness of breath; F41.1 Generalized anxiety disorder; F43.0 Acute stress reaction; R00.2 Palpitations; Z20.822 Contact with and (suspected) exposure to COVID-19; Z79.899 Other long term (current) drug therapy
CPT/HCPCS: 36415; 71045; 80048; 84484; 85025; 87635; 93005; 99283; 99284

== ENCOUNTER → 2022-02-15 12:05 | Outpatient (REF) | payer MEDICAID, SELFPAY ==
--- NOTE | 2022-02-15 11:39 | ECG_ITS ---
Hook-up date: 2022-02-15 11:16:00 Duration: 47:57:00 Test Indications: palpitations Medications: 398430 QRS complexes 111 Ventricular ectopics which represent <1 % of total QRS comp. 3 Supraventricular ectopics which represent <1 % of total QRS comp. * Paced QRS complexs which represent % of total QRS comp. VENTRICULAR ECTOPY 105 Isolated 8 Bigeminal Cycles 3 Couplets 0 Runs 0 Beats in Runs * Beats LONGEST at * BPM at :: -- * Beats FASTEST at * BPM at :: -- SUPRAVENTRICULAR ECTOPY 3 Isolated 0 Couplets 0 Runs 0 Beats in Runs * Beats LONGEST at * BPM at :: -- * Beats FASTEST at * BPM at :: -- HEART RATES 67 MIN at 06:39:24 2022-02-16 100 AVG 169 MAX at 22:06:34 2022-02-15 LONGEST RR 1.0320 secs at 11:48:58 2022-02-16 S-T LEVELS Channel 1 - 128 mm at 11:16:00 2022-02-15 - 128 mm at 11:16:00 2022-02-15 Channel 2 - 128 mm at 11:16:00 2022-02-15 - 128 mm at 11:16:00 2022-02-15 Channel 3 - 128 mm at 03:03:51 -- - 128 mm at 03:03:51 Basic rhythm Normal sinus rhythm No long pause or profound bradycardia Frequent Sinus tachycardia , 49% of time HR > 100 bpm Rare Premature ventricular complexes Patient did not report any symptoms in the diary Referred By: Ibeth Lassiter Overread By: JANICE COLE MD
== END ==
LOC: HO.CARD 12:05
PROVIDERS: PCP Family Medicine; Visit Provider Family Medicine
DX: R00.2 Palpitations (principal)
CPT/HCPCS: 36415; 71045; 80048; 80076; 83880; 84443; 84484; 84702; 85025; 85379; 87635; 93005; 93226; 99283

== ENCOUNTER 2022-02-15 12:18 | Emergency (ER) | payer MEDICAID, SELFPAY ==
--- NOTE | ~2022-02-15 | XR_ITS ---
EXAMINATION: XR CHEST CLINICAL INFORMATION: Shortness of breath and chest pain. COMPARISON: Chest radiograph dated from 02/07/2022. TECHNIQUE: Frontal view of the chest was obtained. FINDINGS: No significant abnormality is noted involving the heart, lungs, mediastinum, bony thorax or soft tissues. XR/XR chest 1V IMPRESSION: Unremarkable examination.
--- NOTE | 2022-02-15 12:23 | ECG_ITS ---
Test Reason : chest pain Blood Pressure : / mmHG Vent. Rate : 076 BPM Atrial Rate : 076 BPM P-R Int : 132 ms QRS Dur : 082 ms QT Int : 418 ms P-R-T Axes : 085 076 -14 degrees QTc Int : 470 ms Normal sinus rhythm T wave abnormality, consider inferior ischemia Abnormal ECG When compared with ECG of 07-FEB-2022 13:45, No significant change was found Referred By: Nadia Abad Electronically Signed By:DANIEL SCHULZ
[2022-02-15 12:53] VITALS: BP 133/89; PULSE 76; RESP 18; TEMP 36.6; O2SAT 98; BMI 17.5
[2022-02-15 13:11] LABS: MANUAL DIFF FLAG NO
[2022-02-15 13:17] LABS: Basophils Percent Auto 0.4 % (0-2); Eosinophils Percent Auto 0.6 % (0-4); Hematocrit 38.9 % (37.0-47.0); Hemoglobin 12.8 g/dl (12.0-16.0); Imm Gran Abs Auto 0.01 X10*3/uL (0.00-0.03); Imm Gran Pct Auto 0.2 % (0.0-0.4); Lymphocytes Absolute Auto 1.4 X10*3/uL (1.2-4.9); Lymphocytes Percent Auto 31.1 % (20-40); Mean Corpuscular HGB Conc 32.9 g/dl (31.0-35.0); Mean Corpuscular Hemoglobin 26.8 pg (27.0-33.0); Mean Corpuscular Volume 81.4 fL (80.0-98.0); Mean Platelet Volume 9.7 fL (9.4-12.3); Monocytes Absolute Auto 0.2 X10*3/uL (0.1-1.2); Monocytes Percent Auto 5.2 % (2-11); Neutrophils Absolute Auto 2.9 x10*3/uL (2.0-8.3); Neutrophils Percent Auto 62.5 % (45-73); Platelet Count 306 X10*3/uL (160-400); Red Blood Count 4.78 X10*6/uL (4.20-5.50); Red Cell Distribution Width 16.5 % (11.0-16.0); White Blood Count 4.6 X10*3/uL (4.8-10.8)
[2022-02-15 13:27] LABS: Alanine Aminotransferase 15 U/L (0-31); Albumin Level 4.3 g/dL (3.5-5.0); Alkaline Phosphatase 93 U/L (39-117); Anion Gap 13 (12-20); Aspartate Amino Transferase 25 U/L (5-31); Bilirubin Direct 0.4 mg/dL (0.0-0.5); Bilirubin Total 0.9 mg/dL (0.0-1.0); Blood Urea Nitrogen 5 mg/dL (9-16); Calcium 9.2 mg/dL (8.4-10.2); Carbon Dioxide 25 mmol/L (22-29); Chloride 103 mmol/L (96-108); Estimated Glomerular Filt Rate > 60; Glucose Random 99 mg/dL (60-115); Potassium 3.3 mmol/L (3.3-5.1); Sodium 138 mmol/L (135-145); Total Protein 6.9 g/dL (6.5-8.0)
[2022-02-15 13:29] LABS: COVID-19 Test Negative (Negative); D Dimer High Sensitivity 399 NG/ML
[2022-02-15 13:33] LABS: B Type Natriuretic Peptide 32 pg/mL (<100); Troponin-I High Sensitivity < 3.5 ng/L (<3.5-17.0)
[2022-02-15 13:48] LABS: HCG Quantitative < 2 mIU/mL; TSH reflex Free T4 2.13 uIU/mL (0.32-4.0)
== END 2022-02-15 20:06 | disposition left against medical advice (07) ==
PROVIDERS: Emergency Medicine; Emergency Provider Emergency Medicine; PCP Family Medicine
DX: R07.89 Other chest pain (principal); R42 Dizziness and giddiness; R06.02 Shortness of breath; Z20.822 Contact with and (suspected) exposure to COVID-19; Z79.899 Other long term (current) drug therapy
CPT/HCPCS: 36415; 71045; 80048; 80076; 83880; 84443; 84484; 84702; 85025; 85379; 87635; 93005; 99283

== ENCOUNTER 2022-06-26 09:59 | Emergency (ER) | payer MEDICAID, SELFPAY ==
[2022-06-26 10:03] VITALS: BP 117/36; PULSE 84; RESP 16; TEMP 36.1; O2SAT 97; BMI 23.1
--- NOTE | 2022-06-26 10:03 | ECG_ITS ---
Test Reason : chest pain Blood Pressure : / mmHG Vent. Rate : 077 BPM Atrial Rate : 077 BPM P-R Int : 120 ms QRS Dur : 082 ms QT Int : 412 ms P-R-T Axes : 024 073 -14 degrees QTc Int : 466 ms Normal sinus rhythm T wave abnormality, consider inferior ischemia Abnormal ECG When compared with ECG of 15-FEB-2022 12:31, No significant change was found Referred By: Generic ED Physician Electronically Signed By:ROSIO BURTON
--- NOTE | 2022-06-26 10:12 | ED.CHESTPAIN ---
HPI - Chest Pain General Chief Complaint: Chest Pain Stated Complaint: Chest pain Time Seen by Provider: 06/26/22 10:12 Source: patient Mode of arrival: ambulatory Limitations: no limitations History of Present Illness HPI narrative: Patient is a 26 year old assigned female at with a history of asthma presenting to the emergency department today requesting a refill of her inhaler and states that she has a lump under her left breast. Patient states that over the last month, she has felt as though she has a lump under her left breast. Patient states that she is also out of her albuterol inhaler and her asthma has been acting up. Patient denies any nipple discharge, nipple pain, skin changes to the breast, or any feelings of lumps in the breast tissue or axilla. Patient denies any dizziness, lightheadedness, abdominal pain, nausea, vomiting, fever, chills, blurry vision, double vision, loss of vision, chest pain, difficulty breathing, shortness of breath, back pain, night sweats, pain with urination, increased urinary frequency, increased urinary urgency, blood in her urine or stool, syncope or a near syncopal episode, recent trauma or falls, bowel incontinence, bladder incontinence, bowel retention, bladder retention, or any other complaints at this time. Pain radiation: none Treatment prior to arrival: none Risk Factors Coronary artery disease risk factors: none Thoracic aortic dissection risk factors: none Related Data Previous Rx's Medication Instructions Recorded lorazepam 0.5 mg tablet 0.5 mg PO TID PRN anxiety #10 tabs 11/26/21 lorazepam 1 mg tablet 1 mg PO TID PRN anxiety #10 tabs 02/07/22 albuterol sulfate 90 mcg/actuation 1 inh inhalation QID #8.5 grams 06/26/22 aerosol inhaler Allergies Allergy/AdvReac Type Severity Reaction Status Date / Time Penicillins Allergy Intermediate Unknown Verified 06/26/22 10:05 oxycodone Allergy Unknown Unknown Verified 06/26/22 10:05 codeine Allergy Unknown Verified 06/26/22 10:05 Review of Systems Constitutional: Constitutional: Reports no additional constitutional complaints, Denies chills, Denies fever(s) and Denies night sweats Eyes: Eyes: Reports no additional eye complaints, Denies blurry vision, Denies change in vision, Denies diplopia, Denies eye discharge, Denies loss of vision and Denies eye pain ENT: Denies dizziness Cardiovascular: Cardiovascular: Reports no additional cardiovascular complaints, Denies chest pain, Denies lightheadedness, Denies Loss of Consciousness and Denies dyspnea Respiratory: Respiratory: Reports no additional respiratory complaints and Denies dyspnea Gastrointestinal: Gastrointestinal: Reports no additional gastrointestinal complaints, Denies abdominal pain, Denies melena, Denies hematochezia, Denies change in bowel habits and Denies change in stool character Genitourinary: Genitourinary: Denies hematuria, Denies urinary frequency, Denies dysuria, Denies urinary incontinence, Denies urinary hesitancy and Denies urinary urgency Musculoskeletal: Musculoskeletal: Reports no additional musculoskeletal complaints, Denies numbness and Denies tingling Integumentary/Breasts: Comments: lump under left breast Neurologic: Denies dizziness, Denies loss of vision, Denies numbness and Denies tingling Psychiatric: Psychiatric: Reports no additional psychiatric complaints Endocrine: Endocrine: Reports no additional endocrine complaints Hematologic/Lymphatic: Hematologic/Lymphatic: Reports no additional hematologic/lymphatic complaints Allergic/Immunologic: Allergic/Immunologic: Reports no additional allergic/immunologic complaints [facility] Past Medical History Attestation statement: The following information was validated with the patient. Source: old records reviewed and nursing notes reviewed Surgical History No history of previous surgery Social History Social History Patient Tobacco Use Status: Never used Tobacco Advance Directives: No Advance Directives Information Provided: Yes Physical Exam Vital Signs: Vital Signs: Last Vital Signs Temp 97 F 06/26/22 10:03 Pulse 84 06/26/22 10:03 Resp 16 06/26/22 10:03 BP 117/36 L 06/26/22 10:03 Pulse Ox 97 06/26/22 10:03 O2 Del Method 06/26/22 10:03 BMI result Body Mass Index 23.1 Const: General: cooperative, no acute distress, alert and awake Nutritional Appearance: well nourished Orientation/consciousness: patient oriented x3 Limitations: no limitations HEENT: Head: Yes normal to inspection and Yes atraumatic Ears: hearing grossly normal bilaterally and external ears normal General nose exam: Normal external nose present, no nasal discharge noted and no epistaxis Face and sinus: Yes normal facial exam, No abrasion and No laceration Mouth: Normal oral and palatal mucosa present, no drooling and no muffled voice Eyes: General: appearance normal, both eyes and all related structures Periorbital: periorbital findings normal Eyelids: Yes eyelids normal Conjunctivae: conjunctivae normal Pupils: Equal, round and reactive pupils present EOM: EOMs intact bilaterally Neck: Neck: Yes normal visual inspection, Yes full ROM and Yes no lymphadenopathy Chest: Chest palpation & inspection: normal inspection of the chest and normal palpation of entire chest wall Breast/axilla inspection: normal inspection of the breasts and normal inspection of the axillae Breast/axilla palpation: normal palpation of the breasts, normal palpation of the axillae and no axillary lymphadenopathy Resp: Effort & Inspection: normal respiratory effort and able to speak in complete sentences Auscultation: clear to auscultation bilaterally Cardio: Rate: regular rate Rhythm: regular rhythm GI: Inspection: Yes normal to inspection Palpation (GI): Soft to palpation, not firm, nontender, no guarding and not rigid Neuro: General: patient oriented x3 and moves all extremities Cranial nerves: Yes Equal, round and reactive pupils present Cognition (Neuro): normal cognition Motor exam (neuro): 5/5 motor strength present throughout Sensory Exam: Normal double simultaneous stimulation for sensation Coordination: [id number] test normal Extrem: General: Yes normal to inspection, Yes full ROM and Yes capillary refill normal Psych: Appearance: grossly normal Mental Status: mental status grossly normal Affect: normal affect Attitude: cooperative Thought process: Normal thought process present Thought content: Normal thought content present Insight: Good insight present (Psych) Medical Decision Making Medical Decision Making MDM Narrative: Patient is a 26 year old assigned female at with a history of asthma presenting to the emergency department today with a lump under her left breast. Patient's physical exam was performed with RN at the bed side and showed a fibrous ridge under both breasts with no felt abnormalities. Skin of both breasts was appropriate, no discolorations or textures changes. Patient's EKG was unremarkable. I explained my physical exam findings and all test results to the patient. I answered all questions asked by the patient. I stressed the importance of the patient taking her medication as prescribed. I stressed the importance of the patient following up with her primary care provider. I stressed the importance of the patient returning to the emergency department immediately if her symptoms were to worsen or if she were to develop any dizziness, shortness of breath, difficulty breathing, chest pain, blurry vision, loss of vision, nausea, vomiting, abdominal pain, fever, chills, back pain, or any other complaints. Patient verbalized agreement and understanding with this treatment plan and discharge. Differential Diagnosis Differential Diagnoses: The differential diagnosis associated with the presentation includes normal breast anatomy, fibrous breasts, medication refill Independent Interpretation I performed an independent interpretation of an: EKG Interpretation: Vent. Rate: 077 BPM ? ? Atrial Rate: 077 BPM P-R Int: 120 ms? QRS Dur: 082 ms QT Int: 412 ms ? ? ? P-R-T Axes: 024 073 -14 degrees QTc Int: 466 ms ? Normal sinus rhythm T wave abnormality, consider inferior ischemia Abnormal ECG When compared with ECG of 15-FEB-2022 12:31, No significant change was found DD/ [id number] Discharge Plan Discharge Clinical Impression: Fibrous breast lumps, Asthma Patient Disposition: Home, Self-Care Instructions: Asthma (ED), Fibrocystic Breast Changes (ED) Additional Instructions: Follow up with your primary care provider. Return to the emergency department immediately if your symptoms worsen or if you develop any dizziness, shortness of breath, difficulty breathing, chest pain, blurry vision, loss of vision, nausea, vomiting, abdominal pain, fever, chills, back pain, or any other complaints. Prescriptions: New albuterol sulfate 90 mcg/actuation HFA aerosol inhaler 1 inh inhalation QID Qty: 8.5 0RF No Action lorazepam 0.5 mg tablet 0.5 mg PO TID PRN (Reason: anxiety) Qty: 10 0RF lorazepam 1 mg tablet 1 mg PO TID PRN (Reason: anxiety) Qty: 10 0RF Referrals: Ibeth Lassiter MD [Primary Care Provider] - Stand Alone Forms: Work/School Release Print Language: E[place]re[place]
== END 2022-06-26 10:55 | disposition home or self-care (01) ==
PROVIDERS: Emergency Provider Emergency Medicine; PCP Family Medicine
DX: J45.909 Unspecified asthma, uncomplicated (principal); N60.32 Fibrosclerosis of left breast; N60.31 Fibrosclerosis of right breast
CPT/HCPCS: 93005; 99283

== ENCOUNTER 2022-06-30 09:48 | Outpatient (REF) | payer MEDICAID, SELFPAY ==
--- NOTE | ~2022-06-30 | XR_ITS ---
EXAMINATION: XR CHEST 2 VIEWS CLINICAL INFORMATION: Chest pain. COMPARISON: Chest radiograph dated 02/15/2022. TECHNIQUE: Frontal and lateral views of the chest were obtained. FINDINGS: The heart, great vessels, pulmonary vasculature and mediastinum are normal. The lungs show no focal infiltrate, effusion or pneumothorax. There is no acute osseous abnormality. XR/XR chest 2V IMPRESSION: No active cardiopulmonary disease.
== END 2022-06-30 09:49 | disposition home or self-care (01) ==
LOC: HO.XRAY 09:48
PROVIDERS: PCP Family Medicine; Visit Provider Family Medicine
DX: M94.0 Chondrocostal junction syndrome [Tietze] (principal)
CPT/HCPCS: 71046

== ENCOUNTER 2022-09-18 11:05 | Emergency (ER) | payer MEDICAID, SELFPAY ==
--- NOTE | ~2022-09-18 | XR_ITS ---
EXAMINATION: XR CHEST CLINICAL INFORMATION: Cough COMPARISON: Prior chest June 2022. TECHNIQUE: 2 views of the chest were obtained. FINDINGS: No acute significant abnormality is noted involving the heart, lungs, mediastinum, bony thorax or soft tissues. Metallic objects overlying the anterior chest compatible with nipple piercings XR/XR chest 2V IMPRESSION: Unremarkable examination.
--- NOTE | ~2022-09-18 | CT_ITS ---
EXAMINATION: CT CHEST WITHOUT CONTRAST CLINICAL INFORMATION: Left-sided chest wall pain x3 weeks COMPARISON: Chest x-ray 09/18/2022 TECHNIQUE: Multidetector volumetric CT imaging of the chest was done. Axial MIP volume rendering provided. Sagittal and coronal reformatted images were obtained. This CT examination was performed using dose optimization techniques as appropriate, variously including the following: *Automated exposure control *Adjustment of mA and/or kV according to patient size (this includes techniques or standardized protocols for targeted exams where dose is matched to indication/reason for exam; i.e. extremities or head) *Use of iterative reconstruction technique DLP: 184 mGy-cm FINDINGS: MECHANICAL PROJECT ENGINEER: Well-expanded lungs without acute process. LUNGS: The lungs are well-expanded and clear of acute pneumonic process. There is no pulmonary nodule, mass or consolidation. MEDIASTINUM: The thyroid lobes are symmetrical and normal. The central trachea and bronchi are widely patent. No abnormal size mediastinal or hilar lymph nodes seen. There is residual thymus in the anterior mediastinum. Heart size and the great vessels are normal. No pericardial effusion seen. CORONARY ARTERY CALCIFICATION: None visualized on this study. PLEURA: There is no pleural effusion. No pleural mass or thickening. AXILLA: No lymphadenopathy. The chest wall is unremarkable. There are bilateral nipple rods. UPPER ABDOMEN: Visualized liver, spleen, pancreas and bilateral adrenal glands unremarkable. OSSEOUS STRUCTURES: There is no visible rib fracture. There is unfused the xiphisternum.. CT/CT chest wo IV con IMPRESSION: Unremarkable CT chest. Fleischner guidelines were followed.
[2022-09-18 11:39] VITALS: BP 133/68; PULSE 88; RESP 18; TEMP 36.7; O2SAT 99; BMI 24.9
--- NOTE | 2022-09-18 11:39 | ED_ITS ---
HPI - General Adult General Chief complaint: General Medical <PRISCILLA Cabrera - Last Filed: 09/18/22 11:43> Stated complaint: Chest pain/Nausea/Vomiting <PRISCILLA Cabrera - Last Filed: 09/18/22 11:43> Time Seen by Provider: 09/18/22 18:25 <PRISCILLA Cabrera - Last Filed: 09/18/22 11:43> Source: patient <Jameel Walker MD - Last Filed: 09/18/22 20:15> Mode of arrival: ambulatory <Jameel Walker MD - Last Filed: 09/18/22 20:15> Limitations: no limitations <Jameel Walker MD - Last Filed: 09/18/22 20:15> History of Present Illness HPI narrative: 27-year-old female presents with 2 complaints. First, patient plans of lower extremity pain. This been going on for approximately 3 weeks. The pain is worse with ambulation. She noticed some slightly mottled skin but she is unsure when that started. The pain is bilateral. It is left greater than r ight. The pain does not radiate. Is not associated with any swelling. She denies any numbness or tingling. She denies any weakness. Additionally, patient is complaining of some left lower chest pain. This is also been going on for approximately 3 weeks. The pain is moderate to severe. The pain is intermittent and worse with movement, palpation and deep inspiration. She reports some slight shortness of breath associated with a. She feels like there is a bump in the area of the discomfort. Pain does not radiate. She has no history of PE or DVT. She denies any risk factors for venous thromboembolism. <Jameel Walker MD - Last Filed: 09/18/22 20:15> Related Data Home medications: Previous Rx's Medication Instructions Recorded lorazepam 0.5 mg tablet 0.5 mg PO TID PRN anxiety #10 tabs 11/26/21 lorazepam 1 mg tablet 1 mg PO TID PRN anxiety #10 tabs 02/07/22 albuterol sulfate 90 mcg/actuation 1 inh inhalation QID #8.5 grams 06/26/22 aerosol inhaler meloxicam 15 mg tablet 15 mg PO DAILY #14 tabs 09/18/22 <PRISCILLA Cabrera - Last Filed: 09/18/22 11:43> Allergies/adverse reactions: Allergies Allergy/AdvReac Type Severity Reaction Status Date / Time Penicillins Allergy Intermediate Unknown Verified 06/26/22 10:05 oxycodone Allergy Unknown Unknown Verified 06/26/22 10:05 codeine Allergy Unknown Verified 06/26/22 10:05 <PRISCILLA Cabrera - Last Filed: 09/18/22 11:43> [facility] Past Medical History Surgical History: Surgical History No history of previous surgery <PRISCILLA Cabrera - Last Filed: 09/18/22 11:43> Social History Social History: Social History Patient Tobacco Use Status: Never used Tobacco Advance Directives: No Advance Directives Information Provided: Yes <PRISCILLA Cabrera - Last Filed: 09/18/22 11:43> Physical Exam ED Vital Signs: Vital Signs - 24 hr 09/18/22 11:39 09/18/22 18:20 Temperature 98.0 F Pulse Rate 88 78 Respiratory Rate 18 16 Blood Pressure 133/68 134/71 Pulse Oximetry 99 100 Oxygen Delivery Method Room Air Room Air BMI result Body Mass Index 24.9 <PRISCILLA Cabrera - Last Filed: 09/18/22 11:43> Vital Signs - 24 hr 09/18/22 11:39 09/18/22 18:20 Temperature 98.0 F Pulse Rate 88 78 Respiratory Rate 18 16 Blood Pressure 133/68 134/71 Pulse Oximetry 99 100 Oxygen Delivery Method Room Air Room Air BMI result Body Mass Index 24.9 <Jameel Walker MD - Last Filed: 09/18/22 20:15> GEN: Well developed, no acute distress, alert, oriented HEENT: Normocephalic, atraumatic, normal external ears, nose appears normal, no oropharyngeal edema or exudates Eyes: Normal to appearance Neck: Supple, no lymphadenopathy Respiratory: Talks in complete sentences, no respiratory distress, clear to auscultation bilaterally Cardiovascular: Regular rate and rhythm, no murmurs rubs or gallops Abdomen: Soft, nontender, nondistended, no guarding, no rebound Back: No CVA tenderness Extremities: No clubbing cyanosis or edema Neurologic: No focal neurologic deficits, cranial nerves 2-12 intact, strength is 5/5 bilaterally, gait normal Skin: No rash Chest wall: Point tenderness left midclavicular line lower chest. <Jameel Walker MD - Last Filed: 09/18/22 20:15> Course Course Course Narrative: RME - 27yo female with history of anemia and thyroid problems presenting for left epigastric/ left lower chest pain for months. She endorses vomiting that began today. Patient endorsed constant coughing and occasional phlegm. Patient also complains of bilateral lower leg pain for months. Plan: CXR, labs <PRISCILLA Cabrera - Last Filed: 09/18/22 11:43> Reevaluation(s) Reevaluation #1: Chest x-ray is unremarkable. Lab work does not reveal an etiology of her symptoms. She has normal distal pulses. I doubt patient has peripheral artery disease causing her symptoms although discussed having her follow-up with her primary care provider to order ABIs. Sparse or chest pain, it appears to be musculoskeletal in nature. She has point tenderness. Chest x-ray did not reveal collapse along. Will order CT scan for follow-up and re-evaluate patient. <Jameel Walker MD - Last Filed: 09/18/22 20:15> Time: 19:04 <Jameel Walker MD - Last Filed: 09/18/22 20:15> Reevaluation #2: Discussed results with the patient. She is aware of the findings on CT scan. She will follow up with her primary care provider. Will start her on meloxicam daily for 2 weeks. <Jameel Walker MD - Last Filed: 09/18/22 20:15> Time: 20:14 <Jameel Walker MD - Last Filed: 09/18/22 20:15> Medical Decision Making Medical Decision Making MDM Narrative: 27-year-old female presents with 2 complaints. She has lower extremity pain as well as left-sided chest pain. Examination revealed very reproducible chest wall pain that is most consistent with acute costochondritis or separation of the costochondral area. I doubt PE, DVT, pneumothorax, pleurisy, pericarditis or cardiac etiology. Additionally, patient is complaining of lower extremity pain. She has normal pulses. There is no edema. Doubt DVT or arterial insufficiency. Patient will have routine laboratory analysis, chest x- ray, CT scan of the chest will be considered. <Jameel Walker MD - Last Filed: 09/18/22 20:15> Differential Diagnosis Differential Diagnoses: The differential diagnosis associated with the presentation includes (Chest wall pain, costochondritis, musculoskeletal chest pain, atypical chest pain, cardiac chest pain, angina, less likely PE, pericarditis, venous insufficiency, arterial insufficiency, musculoskeletal lower extremity pain) <Jameel Walker MD - Last Filed: 09/18/22 20:15> Bilateral leg pain, chest wall pain <Jameel Walker MD - Last Filed: 09/18/22 20:15> Admission/Observation Consideration of admission/observation: Escalation of care including admission/observation considered <Jameel Walker MD - Last Filed: 09/18/22 20:15> Lab Data MDM Lab Attestation statement: I reviewed the patient's lab results. <Jameel Walker MD - Last Filed: 09/18/22 20:15> Result Diagrams: 09/18/22 11:50 09/18/22 11:50 <PRISCILLA Cabrera - Last Filed: 09/18/22 11:43> Labs: Lab Results 09/18/22 09/18/22 09/18/22 Range/Units 11:50 11:50 11:50 WBC 7.0 (4.8-10.8) X10*3/uL RBC 5.00 (4.20-5.50) X10*6/uL Hgb 12.2 (12.0-16.0) g/dl Hct 39.1 (37.0-47.0) % MCV 78.2 L (80.0-98.0) fL MCH 24.4 L (27.0-33.0) pg MCHC 31.2 (31.0-35.0) g/dl RDW 16.3 H (11.0-16.0) % Plt Count 332 (160-400) X10*3/uL MPV 9.8 (9.4-12.3) fL Immature Gran % (Auto) 0.3 (0.0-0.4) % Neut % (Auto) 76.9 H (45-73) % Lymph % (Auto) 17.9 L (20-40) % [place] % (Auto) 4.1 (2-11) % Eos % (Auto) 0.1 (0-4) % Baso % (Auto) 0.7 (0-2) % Lymph # (Auto) 1.3 (1.2-4.9) X10*3/uL [place] # (Auto) 0.3 (0.1-1.2) X10*3/uL Eos # (Auto) 0.0 (0.0-0.4) X10*3/uL Baso # (Auto) 0.1 (0.0-0.2) X10*3/uL Abs Immat Gran (auto) 0.02 (0.00-0.03) X10*3/uL Absolute Neuts (auto) 5.4 (2.0-8.3) x10*3/uL Absolute Nucleated RBC 0.000 (0.0-0.012) X10*3/uL Nucleated RBC % (auto) 0.0 (0.0-0.2) /100WBC Sodium 139 (135-145) mmol/L Potassium 4.1 D (3.3-5.1) mmol/L Chloride 107 (96-108) mmol/L Carbon Dioxide 24 (22-29) mmol/L Anion Gap 12 (12-20) BUN 9 (9-16) mg/dL Creatinine 0.69 (0.5-1.4) mg/dL Estim Creat Clear Calc 114.2 Estimated GFR > 60 Random Glucose 89 (60-115) mg/dL Calcium 8.8 (8.4-10.2) mg/dL Magnesium 1.9 (1.6-2.6) mg/dL Total Bilirubin 0.4 (0.0-1.0) mg/dL Direct Bilirubin 0.1 (0.0-0.5) mg/dL AST 24 (5-31) U/L ALT 13 (0-31) U/L Alkaline Phosphatase 113 (39-117) U/L Total Protein 7.0 (6.5-8.0) g/dL Albumin 4.5 (3.5-5.0) g/dL Lipase 15 (8-78) U/L Beta HCG, Quant < 2 mIU/mL Urine Color Urine Appearance Urine pH (5.0-9.0) Ur Specific [place] (1.005-1.025) Urine Protein (Neg-Trace) mg/dL Urine Glucose (UA) (Negative) mg/dL Urine Ketones (Negative) mg/dL Urine Blood (Negative) Urine Nitrite (Negative) Ur Leukocyte Esterase (Negative) Urine RBC (0-2) /HPF Urine WBC (0-5) /HPF Ur Squamous Epith Cells (0-2) /HPF Urine Bacteria (None Seen) Hyaline Casts 09/18/22 Range/Units 15:33 WBC (4.8-10.8) X10*3/uL RBC (4.20-5.50) X10*6/uL Hgb (12.0-16.0) g/dl Hct (37.0-47.0) % MCV (80.0-98.0) fL MCH (27.0-33.0) pg MCHC (31.0-35.0) g/dl RDW (11.0-16.0) % Plt Count (160-400) X10*3/uL MPV (9.4-12.3) fL Immature Gran % (Auto) (0.0-0.4) % Neut % (Auto) (45-73) % Lymph % (Auto) (20-40) % [place] % (Auto) (2-11) % Eos % (Auto) (0-4) % Baso % (Auto) (0-2) % Lymph # (Auto) (1.2-4.9) X10*3/uL [place] # (Auto) (0.1-1.2) X10*3/uL Eos # (Auto) (0.0-0.4) X10*3/uL Baso # (Auto) (0.0-0.2) X10*3/uL Abs Immat Gran (auto) (0.00-0.03) X10*3/uL Absolute Neuts (auto) (2.0-8.3) x10*3/uL Absolute Nucleated RBC (0.0-0.012) X10*3/uL Nucleated RBC % (auto) (0.0-0.2) /100WBC Sodium (135-145) mmol/L Potassium (3.3-5.1) mmol/L Chloride (96-108) mmol/L Carbon Dioxide (22-29) mmol/L Anion Gap (12-20) BUN (9-16) mg/dL Creatinine (0.5-1.4) mg/dL Estim Creat Clear Calc Estimated GFR Random Glucose (60-115) mg/dL Calcium (8.4-10.2) mg/dL Magnesium (1.6-2.6) mg/dL Total Bilirubin (0.0-1.0) mg/dL Direct Bilirubin (0.0-0.5) mg/dL AST (5-31) U/L ALT (0-31) U/L Alkaline Phosphatase (39-117) U/L Total Protein (6.5-8.0) g/dL Albumin (3.5-5.0) g/dL Lipase (8-78) U/L Beta HCG, Quant mIU/mL Urine Color Yellow Urine Appearance Clear Urine pH 7.0 (5.0-9.0) Ur Specific [place] 1.015 (1.005-1.025) Urine Protein Trace (Neg-Trace) mg/dL Urine Glucose (UA) Negative (Negative) mg/dL Urine Ketones >=80 (Negative) mg/dL Urine Blood Trace (Negative) Urine Nitrite Negative (Negative) Ur Leukocyte Esterase Negative (Negative) Urine RBC 0-2 (0-2) /HPF Urine WBC 0-5 (0-5) /HPF Ur Squamous Epith Cells 0-2 (0-2) /HPF Urine Bacteria None Seen (None Seen) Hyaline Casts Not Reportable <PRISCILLA Cabrera - Last Filed: 09/18/22 11:43> Lab Results 09/18/22 09/18/22 09/18/22 Range/Units 11:50 11:50 11:50 WBC 7.0 (4.8-10.8) X10*3/uL RBC 5.00 (4.20-5.50) X10*6/uL Hgb 12.2 (12.0-16.0) g/dl Hct 39.1 (37.0-47.0) % MCV 78.2 L (80.0-98.0) fL MCH 24.4 L (27.0-33.0) pg MCHC 31.2 (31.0-35.0) g/dl RDW 16.3 H (11.0-16.0) % Plt Count 332 (160-400) X10*3/uL MPV 9.8 (9.4-12.3) fL Immature Gran % (Auto) 0.3 (0.0-0.4) % Neut % (Auto) 76.9 H (45-73) % Lymph % (Auto) 17.9 L (20-40) % [place] % (Auto) 4.1 (2-11) % Eos % (Auto) 0.1 (0-4) % Baso % (Auto) 0.7 (0-2) % Lymph # (Auto) 1.3 (1.2-4.9) X10*3/uL [place] # (Auto) 0.3 (0.1-1.2) X10*3/uL Eos # (Auto) 0.0 (0.0-0.4) X10*3/uL Baso # (Auto) 0.1 (0.0-0.2) X10*3/uL Abs Immat Gran (auto) 0.02 (0.00-0.03) X10*3/uL Absolute Neuts (auto) 5.4 (2.0-8.3) x10*3/uL Absolute Nucleated RBC 0.000 (0.0-0.012) X10*3/uL Nucleated RBC % (auto) 0.0 (0.0-0.2) /100WBC Sodium 139 (135-145) mmol/L Potassium 4.1 D (3.3-5.1) mmol/L Chloride 107 (96-108) mmol/L Carbon Dioxide 24 (22-29) mmol/L Anion Gap 12 (12-20) BUN 9 (9-16) mg/dL Creatinine 0.69 (0.5-1.4) mg/dL Estim Creat Clear Calc 114.2 Estimated GFR > 60 Random Glucose 89 (60-115) mg/dL Calcium 8.8 (8.4-10.2) mg/dL Magnesium 1.9 (1.6-2.6) mg/dL Total Bilirubin 0.4 (0.0-1.0) mg/dL Direct Bilirubin 0.1 (0.0-0.5) mg/dL AST 24 (5-31) U/L ALT 13 (0-31) U/L Alkaline Phosphatase 113 (39-117) U/L Total Protein 7.0 (6.5-8.0) g/dL Albumin 4.5 (3.5-5.0) g/dL Lipase 15 (8-78) U/L Beta HCG, Quant < 2 mIU/mL Urine Color Urine Appearance Urine pH (5.0-9.0) Ur Specific [place] (1.005-1.025) Urine Protein (Neg-Trace) mg/dL Urine Glucose (UA) (Negative) mg/dL Urine Ketones (Negative) mg/dL Urine Blood (Negative) Urine Nitrite (Negative) Ur Leukocyte Esterase (Negative) Urine RBC (0-2) /HPF Urine WBC (0-5) /HPF Ur Squamous Epith Cells (0-2) /HPF Urine Bacteria (None Seen) Hyaline Casts 09/18/22 Range/Units 15:33 WBC (4.8-10.8) X10*3/uL RBC (4.20-5.50) X10*6/uL Hgb (12.0-16.0) g/dl Hct (37.0-47.0) % MCV (80.0-98.0) fL MCH (27.0-33.0) pg MCHC (31.0-35.0) g/dl RDW (11.0-16.0) % Plt Count (160-400) X10*3/uL MPV (9.4-12.3) fL Immature Gran % (Auto) (0.0-0.4) % Neut % (Auto) (45-73) % Lymph % (Auto) (20-40) % [place] % (Auto) (2-11) % Eos % (Auto) (0-4) % Baso % (Auto) (0-2) % Lymph # (Auto) (1.2-4.9) X10*3/uL [place] # (Auto) (0.1-1.2) X10*3/uL Eos # (Auto) (0.0-0.4) X10*3/uL Baso # (Auto) (0.0-0.2) X10*3/uL Abs Immat Gran (auto) (0.00-0.03) X10*3/uL Absolute Neuts (auto) (2.0-8.3) x10*3/uL Absolute Nucleated RBC (0.0-0.012) X10*3/uL Nucleated RBC % (auto) (0.0-0.2) /100WBC Sodium (135-145) mmol/L Potassium (3.3-5.1) mmol/L Chloride (96-108) mmol/L Carbon Dioxide (22-29) mmol/L Anion Gap (12-20) BUN (9-16) mg/dL Creatinine (0.5-1.4) mg/dL Estim Creat Clear Calc Estimated GFR Random Glucose (60-115) mg/dL Calcium (8.4-10.2) mg/dL Magnesium (1.6-2.6) mg/dL Total Bilirubin (0.0-1.0) mg/dL Direct Bilirubin (0.0-0.5) mg/dL AST (5-31) U/L ALT (0-31) U/L Alkaline Phosphatase (39-117) U/L Total Protein (6.5-8.0) g/dL Albumin (3.5-5.0) g/dL Lipase (8-78) U/L Beta HCG, Quant mIU/mL Urine Color Yellow Urine Appearance Clear Urine pH 7.0 (5.0-9.0) Ur Specific [place] 1.015 (1.005-1.025) Urine Protein Trace (Neg-Trace) mg/dL Urine Glucose (UA) Negative (Negative) mg/dL Urine Ketones >=80 (Negative) mg/dL Urine Blood Trace (Negative) Urine Nitrite Negative (Negative) Ur Leukocyte Esterase Negative (Negative) Urine RBC 0-2 (0-2) /HPF Urine WBC 0-5 (0-5) /HPF Ur Squamous Epith Cells 0-2 (0-2) /HPF Urine Bacteria None Seen (None Seen) Hyaline Casts Not Reportable <Jameel Walker MD - Last Filed: 09/18/22 20:15> Independent Interpretation I performed an independent interpretation of an: Plain X-Ray (No acute cardiopulmonary disease) <Jameel Walker MD - Last Filed: 09/18/22 20:15> Prescription Management I considered prescription management with: Pain Medication <Jameel Walker MD - Last Filed: 09/18/22 20:15> Discharge Plan Discharge Clinical Impression: Bilateral leg pain, Acute chest wall pain <PRISCLILA Cabrera - Last Filed: 09/18/22 11:43> Patient Disposition: Home, Self-Care <PRISCILLA Cabrera - Last Filed: 09/18/22 11:43> Instructions: Chest Pain (ED), Chest Wall Pain (ED), Leg Pain (ED) <PRISCILLA Cabrera - Last Filed: 09/18/22 11:43> Additional Instructions: You should follow-up with her primary care provider. Her chest pain appears to be musculoskeletal in nature. Should he develop worsening uncontro lled pain or increasing shortness of breath, please return for re-evaluation. Additionally of lower extremity pain. He could consider vascular consultation, orthopedic consultation. Her primary care provider could order ankle-brachial indexes. In the meantime, Tylenol and ibuprofen will be appropriate for pain relief. <PRISCILLA Cabrera - Last Filed: 09/18/22 11:43> Prescriptions: New meloxicam 15 mg tablet 15 mg PO DAILY Qty: 14 0RF No Action lorazepam 0.5 mg tablet 0.5 mg PO TID PRN (Reason: anxiety) Qty: 10 0RF lorazepam 1 mg tablet 1 mg PO TID PRN (Reason: anxiety) Qty: 10 0RF albuterol sulfate 90 mcg/actuation HFA aerosol inhaler 1 inh inhalation QID Qty: 8.5 0RF <PRISCILLA Cabrera - Last Filed: 09/18/22 11:43> Referrals: Ibeth Lassiter MD [Primary Care Provider] - 3 days <PRISCILLA Cabrera - Last Filed: 09/18/22 11:43>
[2022-09-18 11:54] LABS: MANUAL DIFF FLAG NO
[2022-09-18 11:55] LABS: Basophils Absolute Auto 0.1 X10*3/uL (0.0-0.2); Basophils Percent Auto 0.7 % (0-2); Eosinophils Percent Auto 0.1 % (0-4); Hematocrit 39.1 % (37.0-47.0); Hemoglobin 12.2 g/dl (12.0-16.0); Imm Gran Abs Auto 0.02 X10*3/uL (0.00-0.03); Imm Gran Pct Auto 0.3 % (0.0-0.4); Lymphocytes Absolute Auto 1.3 X10*3/uL (1.2-4.9); Lymphocytes Percent Auto 17.9 % (20-40); Mean Corpuscular HGB Conc 31.2 g/dl (31.0-35.0); Mean Corpuscular Hemoglobin 24.4 pg (27.0-33.0); Mean Corpuscular Volume 78.2 fL (80.0-98.0); Mean Platelet Volume 9.8 fL (9.4-12.3); Monocytes Absolute Auto 0.3 X10*3/uL (0.1-1.2); Monocytes Percent Auto 4.1 % (2-11); Neutrophils Absolute Auto 5.4 x10*3/uL (2.0-8.3); Neutrophils Percent Auto 76.9 % (45-73); Platelet Count 332 X10*3/uL (160-400); Red Cell Distribution Width 16.3 % (11.0-16.0)
[2022-09-18 12:15] LABS: Alanine Aminotransferase 13 U/L (0-31); Albumin Level 4.5 g/dL (3.5-5.0); Alkaline Phosphatase 113 U/L (39-117); Anion Gap 12 (12-20); Aspartate Amino Transferase 24 U/L (5-31); Bilirubin Direct 0.1 mg/dL (0.0-0.5); Bilirubin Total 0.4 mg/dL (0.0-1.0); Blood Urea Nitrogen 9 mg/dL (9-16); Calcium 8.8 mg/dL (8.4-10.2); Carbon Dioxide 24 mmol/L (22-29); Chloride 107 mmol/L (96-108); Creatinine Clr Calc Pharmacy 114.2; Estimated Glomerular Filt Rate > 60; Glucose Random 89 mg/dL (60-115); Lipase 15 U/L (8-78); Magnesium 1.9 mg/dL (1.6-2.6); Potassium 4.1 mmol/L (3.3-5.1); Sodium 139 mmol/L (135-145)
[2022-09-18 12:21] LABS: HCG Quantitative < 2 mIU/mL
[2022-09-18 15:43] LABS: Appearance Urine Clear; Color Urine Yellow; Glucose Urine UA Negative (Negative); Leukocyte Esterase Urine Negative (Negative); Nitrite Urine Negative (Negative); Specific Gravity - Urine 1.015 (1.005-1.025); UMIC TRIGGER UACC YES; Urine Blood Trace (Negative); Urine Ketones >=80 mg/dL (Negative); Urine Protein Trace mg/dL (Neg-Trace)
[2022-09-18 16:06] LABS: WBC Urine 0-5 /HPF (0-5)
[2022-09-18 16:07] LABS: Bacteria Urine None Seen (None Seen); RBC Urine 0-2 /HPF (0-2); Squamous Epithelial Cell Urine 0-2 /HPF (0-2)
[2022-09-18 18:20] VITALS: BP 134/71; PULSE 78; RESP 16; O2SAT 100
--- NOTE | 2022-09-18 18:24 | PC.NURSE ---
NEDORSES PAIN IN L LRIB AREA, WHERE THERE IS A LUMP AREA UNDER L BRST HAS BEEN TENDER X 2 MONTHS. ALSO STATES BILAT LEG NUMBNESS X 1 MONTH, DUE FOR CT SCAN IN OCTOBER. LEGS APPEAR DISCOLOURED, SKIN WARM, + PEDAL PULSES.
== END 2022-09-18 20:35 | disposition home or self-care (01) ==
PROVIDERS: Physician Assistant; Emergency Provider Emergency Medicine; PCP Family Medicine
DX: R07.89 Other chest pain (principal); M79.662 Pain in left lower leg; M79.661 Pain in right lower leg; Z79.899 Other long term (current) drug therapy
CPT/HCPCS: 36415; 71046; 71250; 80048; 80076; 81001; 81003; 83690; 83735; 84702; 85025; 99284

== ENCOUNTER 2022-10-02 18:12 | Emergency (ER) | payer MEDICAID, SELFPAY ==
--- NOTE | ~2022-10-02 | CT_ITS ---
EXAMINATION: CT ABDOMEN AND PELVIS WITHOUT CONTRAST CLINICAL INFORMATION: right flank pain, N/V/D. COMPARISON: No pertinent prior studies are available for comparison. TECHNIQUE: Multidetector volumetric imaging was performed from the superior aspect of the liver through the pubic symphysis without contrast per request. Sagittal and coronal reformatted images were obtained on the technologist workstation. This CT examination was performed using dose optimization techniques as appropriate, variously including the following: *Automated exposure control *Adjustment of mA and/or kV according to patient size (this includes techniques or standardized protocols for targeted exams where dose is matched to indication/reason for exam; i.e. extremities or head) *Use of iterative reconstruction technique DLP: 457 mGy-cm. FINDINGS: LUNG BASES: The visualized lung bases are unremarkable. LIVER, GALLBLADDER, BILIARY TREE: The non-contrast liver is normal in size, shape, and attenuation. No focal hepatic lesion or biliary ductal dilatation is present. The gallbladder is unremarkable with no evidence of radiopaque gallstones, gallbladder wall thickening, or obvious pericholecystic inflammatory changes. PANCREAS: Unremarkable. SPLEEN: Unremarkable. ADRENAL GLANDS: Unremarkable. KIDNEYS AND URETERS: The kidneys are normal in size, shape, and attenuation. No hydronephrosis or hydroureter. No perinephric stranding. Tiny 2 mm no hydroureter or ureteric calculi seen nonobstructing calculi incidentally seen in the right lower pole calyx. BLADDER: Completely decompressed GASTROINTESTINAL TRACT: Distal colon is mostly decompressed but I do not appreciate any colonic wall thickening or pericolonic inflammatory changes the appendix is not well delineated although there is a tiny tubular structure which may represent normal-appearing appendix directly adjacent to and inseparable from bowel loops in the right lower quadrant. Visualized small bowel unremarkable ABDOMINAL WALL: No significant hernia is appreciated. LYMPHOVASCULAR STRUCTURES: No lymphadenopathy. The aorta is unremarkable.. PELVIC VISCERA: Unremarkable. OSSEUS STRUCTURES: Unremarkable. CT/CT abdomen pelvis wo IV con IMPRESSION: I do not appreciate any acute intra-abdominal process on this noncontrast study. Tiny nonobstructing right-sided renal calculi are incidentally noted. No obstructive changes to the kidneys. The appendix is not well delineated although there is a tiny tubular structure which may represent a normal-appearing appendix directly adjacent to and inseparable from bowel loops in the right lower quadrant.
[2022-10-02 19:35] LABS: MANUAL DIFF FLAG NO
[2022-10-02 19:38] LABS: Basophils Absolute Auto 0.1 X10*3/uL (0.0-0.2); Basophils Percent Auto 0.7 % (0-2); Eosinophils Percent Auto 0.6 % (0-4); Hemoglobin 13.2 g/dl (12.0-16.0); Imm Gran Abs Auto 0.02 X10*3/uL (0.00-0.03); Imm Gran Pct Auto 0.3 % (0.0-0.4); Lymphocytes Absolute Auto 1.6 X10*3/uL (1.2-4.9); Lymphocytes Percent Auto 21.5 % (20-40); Mean Corpuscular HGB Conc 31.4 g/dl (31.0-35.0); Mean Corpuscular Hemoglobin 24.4 pg (27.0-33.0); Mean Corpuscular Volume 77.8 fL (80.0-98.0); Mean Platelet Volume 10.2 fL (9.4-12.3); Monocytes Absolute Auto 0.4 X10*3/uL (0.1-1.2); Monocytes Percent Auto 5.7 % (2-11); Neutrophils Absolute Auto 5.2 x10*3/uL (2.0-8.3); Neutrophils Percent Auto 71.2 % (45-73); Platelet Count 358 X10*3/uL (160-400); Red Cell Distribution Width 15.6 % (11.0-16.0); White Blood Count 7.2 X10*3/uL (4.8-10.8)
[2022-10-02 20:03] LABS: Alanine Aminotransferase 12 U/L (0-31); Albumin Level 4.8 g/dL (3.5-5.0); Alkaline Phosphatase 126 U/L (39-117); Anion Gap 13 (12-20); Aspartate Amino Transferase 23 U/L (5-31); Bilirubin Direct 0.3 mg/dL (0.0-0.5); Bilirubin Total 0.8 mg/dL (0.0-1.0); Blood Urea Nitrogen 5 mg/dL (9-16); Calcium 9.9 mg/dL (8.4-10.2); Carbon Dioxide 26 mmol/L (22-29); Chloride 103 mmol/L (96-108); Estimated Glomerular Filt Rate > 60; Glucose Random 114 mg/dL (60-115); Lipase 15 U/L (8-78); Potassium 3.9 mmol/L (3.3-5.1); Sodium 138 mmol/L (135-145); Total Protein 7.7 g/dL (6.5-8.0)
[2022-10-02 20:06] LABS: HCG Quantitative < 2 mIU/mL
[2022-10-02 20:28] VITALS: BP 120/72; PULSE 75; RESP 18; TEMP 36.3; O2SAT 98; BMI 24.9
--- NOTE | 2022-10-02 20:28 | ED.ABDPAIN ---
HPI - Abdominal Pain General Chief Complaint: Urogenital-Female <PRISCILLA Cabrera - Last Filed: 10/02/22 20:30> Stated Complaint: abd/back pain <PRISCILLA Cabrera - Last Filed: 10/02/22 20:30> Time Seen by Provider: 10/03/22 02:33 <PRISCILLA Cabrera - Last Filed: 10/02/22 20:30> Source: patient <Franklin Chiu MD - Last Filed: 10/03/22 02:49> Mode of arrival: ambulatory <Franklin Chiu MD - Last Filed: 10/03/22 02:49> Limitations: no limitations <Franklin Chiu MD - Last Filed: 10/03/22 02:49> History of Present Illness HPI narrative: Patient history of kidney stone noticed pain in the right flank since yesterday when she woke up no history of trauma no injuries no urinary complaints no fever or chills no abdominal pain no radiation of the pain pain get worse on movement and palpation <Franklin Chiu MD - Last Filed: 10/03/22 02:49> Related Data Home Medications: Previous Rx's Medication Instructions Recorded lorazepam 0.5 mg tablet 0.5 mg PO TID PRN anxiety #10 tabs 11/26/21 lorazepam 1 mg tablet 1 mg PO TID PRN anxiety #10 tabs 02/07/22 albuterol sulfate 90 mcg/actuation 1 inh inhalation QID #8.5 grams 06/26/22 aerosol inhaler meloxicam 15 mg tablet 15 mg PO DAILY #14 tabs 09/18/22 cyclobenzaprine 10 mg tablet 10 mg PO Q8H #20 tabs 10/03/22 ibuprofen 600 mg tablet 600 mg PO Q6H PRN fever or pain 10/03/22 #30 tabs <PRISCILLA Cabrera - Last Filed: 10/02/22 20:30> Allergies/Adverse Reactions: Allergies Allergy/AdvReac Type Severity Reaction Status Date / Time Penicillins Allergy Intermediate Unknown Verified 10/02/22 20:28 oxycodone Allergy Unknown Unknown Verified 10/02/22 20:28 codeine Allergy Unknown Verified 10/02/22 20:28 <PRISCILLA Cabrera - Last Filed: 10/02/22 20:30> Review of Systems Review of Systems Yes all other systems are reviewed and are negative <Franklin Chiu MD - Last Filed: 10/03/22 02:49> [facility] Past Medical History Surgical History: Surgical History No history of previous surgery <PRISCILLA Cabrera - Last Filed: 10/02/22 20:30> Social History Social History: Social History Patient Tobacco Use Status: Never used Tobacco Advance Directives: No Advance Directives Information Provided: Yes <PRISCILLA Cabrera - Last Filed: 10/02/22 20:30> Physical Exam ED Vital Signs: Vital Signs - 24 hr 10/02/22 20:28 10/03/22 02:27 Temperature 97.4 F 97.6 F Pulse Rate 75 97 Respiratory Rate 18 16 Blood Pressure 120/72 121/62 Pulse Oximetry 98 97 Oxygen Delivery Method Room Air Room Air BMI result Body Mass Index 24.9 <PRISCILLA Cabrera - Last Filed: 10/02/22 20:30> Vital Signs - 24 hr 10/02/22 20:28 10/03/22 02:27 Temperature 97.4 F 97.6 F Pulse Rate 75 97 Respiratory Rate 18 16 Blood Pressure 120/72 121/62 Pulse Oximetry 98 97 Oxygen Delivery Method Room Air Room Air BMI result Body Mass Index 24.9 <Franklin Chiu MD - Last Filed: 10/03/22 02:49> Appearance: Alert. Oriented X3. No acute distress. ENT: Pharynx normal. Oral Mucosa moist Neck: Normal inspection. Neck supple. CVS: Normal heart rate and rhythm. Pulses normal. Respiratory: No respiratory distress. Equal air entry bilateral, no wheezing/rales/rhonchi Abdomen: Soft and nontender. Bowel sounds are present, no mass palpable, right CVA tenderness ++ Skin: Skin warm and dry. Normal skin color. Normal skin turgor. Extremities: No lower extremity edema. No calf tenderness Neuro: Oriented X 3. No motor deficit. <Franklin Chiu MD - Last Filed: 10/03/22 02:49> Course Course Course Narrative: RME - 27 yo female wiht history of kidney stones presents to the ER for evaluation of 2 days of right flank pain along with 4 days of epigastric pain. Also reports 3 days of nausea, vomiting and diarrhea. Currently 7/10 pain. Denies urinary symptoms. Plan: labs, UA, CT scan for further evaluation. <PRISCILLA Cabrera - Last Filed: 10/02/22 20:30> Medical Decision Making Medical Decision Making [facility] Narrative: Patient was stable labs normal urine normal CT scan showing only 2 mm nonobstructive stone in right kidney patient has pain on palpation and movements likely musculoskeletal discharge patient home on ibuprofen and Flexeril <Franklin Chiu MD - Last Filed: 10/03/22 02:49> Lab Data [facility] Lab Attestation statement: I reviewed the patient's lab results. <Franklin Chiu MD - Last Filed: 10/03/22 02:49> Result Diagrams: 10/02/22 19:27 10/02/22 19:27 <PRISCILLA Cabrera - Last Filed: 10/02/22 20:30> Labs: Lab Results 10/02/22 10/02/22 10/02/22 Range/Units 19:27 19:27 23:52 WBC 7.2 (4.8-10.8) X10*3/uL RBC 5.40 (4.20-5.50) X10*6/uL Hgb 13.2 (12.0-16.0) g/dl Hct 42.0 (37.0-47.0) % MCV 77.8 L (80.0-98.0) fL MCH 24.4 L (27.0-33.0) pg MCHC 31.4 (31.0-35.0) g/dl RDW 15.6 (11.0-16.0) % Plt Count 358 (160-400) X10*3/uL MPV 10.2 (9.4-12.3) fL Immature Gran % (Auto) 0.3 (0.0-0.4) % Neut % (Auto) 71.2 (45-73) % Lymph % (Auto) 21.5 (20-40) % [place] % (Auto) 5.7 (2-11) % Eos % (Auto) 0.6 (0-4) % Baso % (Auto) 0.7 (0-2) % Lymph # (Auto) 1.6 (1.2-4.9) X10*3/uL [place] # (Auto) 0.4 (0.1-1.2) X10*3/uL Eos # (Auto) 0.0 (0.0-0.4) X10*3/uL Baso # (Auto) 0.1 (0.0-0.2) X10*3/uL Abs Immat Gran (auto) 0.02 (0.00-0.03) X10*3/uL Absolute Neuts (auto) 5.2 (2.0-8.3) x10*3/uL Absolute Nucleated RBC 0.000 (0.0-0.012) X10*3/uL Nucleated RBC % (auto) 0.0 (0.0-0.2) /100WBC Sodium 138 (135-145) mmol/L Potassium 3.9 (3.3-5.1) mmol/L Chloride 103 (96-108) mmol/L Carbon Dioxide 26 (22-29) mmol/L Anion Gap 13 (12-20) BUN 5 L (9-16) mg/dL Creatinine 0.79 (0.5-1.4) mg/dL Estim Creat Clear Calc TNP Estimated GFR > 60 Random Glucose 114 (60-115) mg/dL Calcium 9.9 D (8.4-10.2) mg/dL Magnesium 2.0 (1.6-2.6) mg/dL Total Bilirubin 0.8 (0.0-1.0) mg/dL Direct Bilirubin 0.3 (0.0-0.5) mg/dL AST 23 (5-31) U/L ALT 12 (0-31) U/L Alkaline Phosphatase 126 H (39-117) U/L Total Protein 7.7 (6.5-8.0) g/dL Albumin 4.8 (3.5-5.0) g/dL Lipase 15 (8-78) U/L Beta HCG, Quant < 2 mIU/mL Urine Color Dark Yellow Urine Appearance Cloudy Urine pH 7.0 (5.0-9.0) Ur Specific Treadwell >= 1.030 H (1.005-1.025) Urine Protein 30 (1+) H (Neg-Trace) mg/dL Urine Glucose (UA) Negative (Negative) mg/dL Urine Ketones 40 (Negative) mg/dL Urine Blood Negative (Negative) Urine Nitrite Negative (Negative) Ur Leukocyte Esterase Negative (Negative) Urine RBC 0-2 (0-2) /HPF Urine WBC 0-5 (0-5) /HPF Ur Squamous Epith Cells 3-5 (0-2) /HPF Calcium Oxalate Crystal Present Urine Bacteria None Seen (None Seen) Hyaline Casts 0-2 (0-2) /LPF <PRISCILLA Cabrera - Last Filed: 10/02/22 20:30> Lab Results 10/02/22 10/02/22 10/02/22 Range/Units 19:27 19:27 23:52 WBC 7.2 (4.8-10.8) X10*3/uL RBC 5.40 (4.20-5.50) X10*6/uL Hgb 13.2 (12.0-16.0) g/dl Hct 42.0 (37.0-47.0) % MCV 77.8 L (80.0-98.0) fL MCH 24.4 L (27.0-33.0) pg MCHC 31.4 (31.0-35.0) g/dl RDW 15.6 (11.0-16.0) % Plt Count 358 (160-400) X10*3/uL MPV 10.2 (9.4-12.3) fL Immature Gran % (Auto) 0.3 (0.0-0.4) % Neut % (Auto) 71.2 (45-73) % Lymph % (Auto) 21.5 (20-40) % [place] % (Auto) 5.7 (2-11) % Eos % (Auto) 0.6 (0-4) % Baso % (Auto) 0.7 (0-2) % Lymph # (Auto) 1.6 (1.2-4.9) X10*3/uL [place] # (Auto) 0.4 (0.1-1.2) X10*3/uL Eos # (Auto) 0.0 (0.0-0.4) X10*3/uL Baso # (Auto) 0.1 (0.0-0.2) X10*3/uL Abs Immat Gran (auto) 0.02 (0.00-0.03) X10*3/uL Absolute Neuts (auto) 5.2 (2.0-8.3) x10*3/uL Absolute Nucleated RBC 0.000 (0.0-0.012) X10*3/uL Nucleated RBC % (auto) 0.0 (0.0-0.2) /100WBC Sodium 138 (135-145) mmol/L Potassium 3.9 (3.3-5.1) mmol/L Chloride 103 (96-108) mmol/L Carbon Dioxide 26 (22-29) mmol/L Anion Gap 13 (12-20) BUN 5 L (9-16) mg/dL Creatinine 0.79 (0.5-1.4) mg/dL Estim Creat Clear Calc TNP Estimated GFR > 60 Random Glucose 114 (60-115) mg/dL Calcium 9.9 D (8.4-10.2) mg/dL Magnesium 2.0 (1.6-2.6) mg/dL Total Bilirubin 0.8 (0.0-1.0) mg/dL Direct Bilirubin 0.3 (0.0-0.5) mg/dL AST 23 (5-31) U/L ALT 12 (0-31) U/L Alkaline Phosphatase 126 H (39-117) U/L Total Protein 7.7 (6.5-8.0) g/dL Albumin 4.8 (3.5-5.0) g/dL Lipase 15 (8-78) U/L Beta HCG, Quant < 2 mIU/mL Urine Color Dark Yellow Urine Appearance Cloudy Urine pH 7.0 (5.0-9.0) Ur Specific T[place] >= 1.030 H (1.005-1.025) Urine Protein 30 (1+) H (Neg-Trace) mg/dL Urine Glucose (UA) Negative (Negative) mg/dL Urine Ketones 40 (Negative) mg/dL Urine Blood Negative (Negative) Urine Nitrite Negative (Negative) Ur Leukocyte Esterase Negative (Negative) Urine RBC 0-2 (0-2) /HPF Urine WBC 0-5 (0-5) /HPF Ur Squamous Epith Cells 3-5 (0-2) /HPF Calcium Oxalate Crystal Present Urine Bacteria None Seen (None Seen) Hyaline Casts 0-2 (0-2) /LPF <Franklin Chiu MD - Last Filed: 10/03/22 02:49> Radiology Impression Discussion of test interpretation with radiology: I have reviewed the radiologist's reading. <Franklin Chiu MD - Last Filed: 10/03/22 02:49> Radiologist Impression: CT/CT abdomen pelvis wo IV con IMPRESSION: I do not appreciate any acute intra-abdominal process on this noncontrast study. Tiny nonobstructing right-sided renal calculi are incidentally noted. No obstructive changes to the kidneys. The appendix is not well delineated although there is a tiny tubular structure which may represent a normal-appearing appendix directly adjacent to and inseparable from bowel loops in the right lower quadrant. <Franklin Chiu MD - Last Filed: 10/03/22 02:49> Discharge Plan Discharge Clinical Impression: Flank pain, acute <PRISCILLA Cabrera - Last Filed: 10/02/22 20:30> Patient Disposition: Home, Self-Care <PRISCILLA Cabrera - Last Filed: 10/02/22 20:30> Instructions: Flank Pain (ED) <PRISCILLA Cabrera - Last Filed: 10/02/22 20:30> Additional Instructions: Cause of flank pain is not very clear likely musculoskeletal the CT scan did not show any obstructive stone Take pain medication and muscle relaxant as prescribed <PRISCILLA Cabrera - Last Filed: 10/02/22 20:30> Prescriptions: New cyclobenzaprine 10 mg tablet 10 mg PO Q8H Qty: 20 0RF ibuprofen 600 mg tablet 600 mg PO Q6H PRN (Reason: fever or pain) Qty: 30 0RF No Action lorazepam 0.5 mg tablet 0.5 mg PO TID PRN (Reason: anxiety) Qty: 10 0RF lorazepam 1 mg tablet 1 mg PO TID PRN (Reason: anxiety) Qty: 10 0RF albuterol sulfate 90 mcg/actuation HFA aerosol inhaler 1 inh inhalation QID Qty: 8.5 0RF meloxicam 15 mg tablet 15 mg PO DAILY Qty: 14 0RF <PRISCILLA Cabrera - Last Filed: 10/02/22 20:30>
--- OUTSIDE RECORDS SUMMARY | 2022-10-02 23:29 | XMS_ITS | Continuity of Care Document ---
Author Name Unknown Organization [facility] ter Address [address] [place] [id number]- Care Team Providers Care Mold Release Worker Name Role Phone Ibeth Lassiter MD Primary Care Physician Encounter [facility] Date(s): 08/16/22 - 08/16/[address] [id number]- Discharge Disposition: A-D/C Walkout Attending Physician: Not on Staff, Attending MD Admitting Physician: Not on Staff, Admitting MD Referring Physician: Not on Staff, Referring MD Allergies, Adverse Reactions, Alerts Substance Reaction Severity Status codeine Active penicillin Active oxyCODONE Active Medications Atarax Tablet By Mouth, 4 times a day, 0 Refills, Maintenance, 08/16/22 20:19:00 EDT, Partial fill upon patient request if the prescription is for a schedule II opioid drug. Start Date: 08/16/22 Status: Ordered Vital Signs Most recent to oldest [Reference Range]: 1 Oxygen Saturation [94-100 %] 100 % (08/16/22 7:51 PM) Pulse Rate [55-90 bpm] 108 bpm *H* (08/16/22 7:51 PM) Respiratory Rate [16-30 br/min] 18 br/mi n (08/16/22 7:51 PM) Mode of Delivery (Oxygen) Room air (08/16/22 7:51 PM) Patient Care team information Care Team Personnel Name: Ibeth Lassiter MD Position: Reference Physician Member Role: PCP Address: Address: [address] [place] [id number]
--- OUTSIDE RECORDS SUMMARY | 2022-10-02 23:29 | XMS_ITS | Continuity of Care Document ---
Author Name Unknown Organization [facility] ter Address [address] [place] [id number]- Care Team Providers Care Optical Technician Name Role Phone Ibeth Lassiter MD Primary Care Physician Encounter [facility] Date(s): 08/16/22 - 08/17/[address] [address]- Encounter Diagnosis Acute chest pain(Final) - 08/17/22 Discharge Disposition: A-D/C Home Attending Physician: Evy Egan MD Admitting Physician: Evy Egan MD Referring Physician: Not on Staff, Referring MD Allergies, Adverse Reactions, Alerts Substance Reaction Severity Status codeine Active penicillin Active oxyCODONE Active Medications Atarax Tablet By Mouth, 4 times a day, 0 Refills, Maintenance, 08/16/22 20:19:00 EDT, Partial fill upon patient request if the prescription is for a schedule II opioid drug. Start Date: 08/16/22 Status: Ordered Results Radiology Reports * Exam Date Time Procedure Performing Provider Status 08/16/22 8:54 PM Chest 2 Views Frontal and Lat Justin Self; Dora (Verified) Notes: (Chest 2 Views Frontal and Lat) Reason For Exam: Shortness of Breath, Fever;Other: RESULT: Chest 2 Views Frontal and Lat Chest 2 Views Frontal and Lat Hx of Present Illness: Shortness of breath. COMPARISON: None. FINDINGS: LINES AND TUBES: None. LUNGS AND PLEURA: Clear lungs. Normal pulmonary vascularity. No pleural effusion. No pneumothorax. HEART, MEDIASTINUM AND NAYELI: Heart is normal in size. Normal mediastinal and hilar contour. BONES AND SOFT TISSUES: No acute abnormality. IMPRESSION: No acute abnormality. WSN: [id number] Ordering Physician: Lucius Elliott Dictated By: Nik Gonzalez MD Dictated Date/Time: 08/16/22 9:06 pm Reviewed By: Nik Gonzalez MD Signed By: Nik Gonzalez MD Signed Date/Time: 08/16/22 9:06 pm Transcribed By: MIIK Transcribed Date/Time: 08/16/22 9:03 pm Vital Signs Most recent to oldest [Reference Range]: 1 2 3 Weight 64 kg (08/16/22 11:57 PM) 64 kg (08/16/22 10:06 PM) 64 kg (08/16/22 8:13 PM) Oxygen Saturation [94-100 %] 100 % (08/16/22 11:57 PM) 97 % (08/16/22 10:06 PM) Pulse Rate [55-90 bpm] 83 bpm (08/16/22 11:57 PM) 96 bpm *H* (08/16/22 10:06 PM) 79 bpm (08/16/22 8:13 PM) Blood Pressure [90-138/55-84 mm Hg] 106/63mm Hg (08/16/22 11:57 PM) 121/84mm Hg (08/16/22 10:06 PM) 123/85mm Hg (08/16/22 8:13 PM) Respiratory Rate [16-30 br/min] 18 br/min (08/16/22 11:57 PM) 19 br/min (08/16/22 10:06 PM) 17 br/min (08/16/22 8:13 PM) Temperature [96.8-100.4 DegF] 98.2 DegF (08/16/22 11:57 PM) 98.5 DegF (08/16/22 10:06 PM) 97.9 DegF (08/16/22 8:13 PM) Mode of Delivery (Oxygen) Room air (08/16/22 11:57 PM) Room air (08/16/22 10:06 PM) Blood pressure sites Arm, left (08/16/22 11:57 PM) Arm, left (08/16/22 10:06 PM) Temperature Route Oral (08/16/22 11:57 PM) Oral (08/16/22 10:06 PM) Oral (08/16/22 8:13 PM) Dry Weight 64 kg (08/16/22 11:57 PM) 64 kg (08/16/22 10:06 PM) 64 kg (08/16/22 8:13 PM) Note * Lucius Elliott MD: PERFORM Event Display: Patient Education Leaflets Authored Date: [id number] Noncardiac Chest Pain ?? [id number] Noncardiac Chest Pain In most cases, people who come to the emergency room with chest pain don???t have a problem with their heart. Instead, the pain is caused by other conditions. It's important for the healthcare team to be sure you are not having a life-threatening cause for chest pain such as: ??? Heart attack ??? Blood clot in the lungs ??? Collapsed lung ??? Ruptured esophagus ??? Tearing of the aorta Once these major causes have been ruled out, you may have further evaluation for other causes of chest pain. These may be problems with the lungs, muscles, bones, digestive tract, nerves, or mental health. They include: ??? Inflammation around the lungs (pleurisy) ??? Collapsed lung (pneumothorax) ??? Lung inflammation (pleuritis or pneumonitis) ??? Fluid around the lung (pleural effusion) ??? Lung cancer (rare cause of chest pain) ??? Inflamed cartilage between the ribs (costochondritis) ??? Fibromyalgia ??? Rheumatoid arthritis ??? Chest wall strain ??? Reflux ??? Stomach ulcer ??? Spasms of the esophagus ??? Gall stones ??? Gallbladder inflammation ??? Panic or anxiety attacks ??? Emotional distress Your pain doesn???t seem to be coming from your heart. But sometimes the signs of a serious problemtake more time to appear. Continue to watch for the warning signs listed below. Home care Follow these guidelines when caring for yourself at home: ??? Rest today and don't do any strenuousactivity. ??? Take any prescribed medicine as directed. ?? Follow-up care Follow up with your healthcare provider as advised. ?? Call 911 Call 911 if any of these occur: ??? A change in the type of pain: if it feels different, becomes more severe, lasts longer, or begins to spread into your shoulder, arm, neck, jaw or back ??? Shortness of breath or increased pain with breathing ??? Weakness, dizziness, or fainting ??? Rapid heart beat ??? Crushing sensation in your chest ?? When to seek medical advice Call your healthcare provider right away if any of these occur: ??? Cough with dark colored sputum (phlegm) or blood ??? Fever of 100.4??F (38??C) or higher, or as directed by your healthcare provider ??? Swelling, pain or redness in one leg ?? Last Reviewed Date: 2021 ?? [id number] [employer]. All rights reserved. This information is not intended as a substitute for professional medical care. Always follow your healthcare professional's instructions. ?? * [employer]SP[employer]ers[employer] , CIS S: TRANSCRIBE Carlos REN, Nik W: VERIFY Event Display: Result: Authored Date: [id number] Chest 2 Views Frontal and Lat Hx of Present Illness: Shortness of breath. COMPARISON: None. FINDINGS: LINES AND TUBES: None. LUNGS AND PLEURA: Clear lungs. Normal pulmonary vascularity. No pleural effusion. No pneumothorax. HEART, MEDIASTINUM AND NAYELI: Heart is normal in size. Normal mediastinal and hilar contour. BONES AND SOFT TISSUES: No acute abnormality. IMPRESSION: No acute abnormality. WSN: [id number] Ordering Physician: Lucius Elliott Dictated By: Nik Gonzalez MD Dictated Date/Time: 08/16/22 9:06 pm Reviewed By: Nik Gonzalez MD Signed By: Nik Gonzalez MD Signed Date/Time: 08/16/22 9:06 pm Transcribed By: MIKI Transcribed Date/Time: 08/16/22 9:03 pm Patient Care team information Care Team Personnel Name: Ibeth Lassiter MD Position: Reference Physician Member Role: PCP Address: Address: [address] [place] [address] Name: Pennie Witt RN Position: [facility] ED RN W/OE and Tasks Member Role: Patient Care Provider Name: Evy Egan MD Position: [facility] ED Medicine MD Member Role: ED Attending Physician Address: Address: [address] [place] [address] Name: Lucius Elliott MD Position: S Resident Member Role: ED Resident Address: Address: [address] [place] [address] Name: Owen Chao RN Position: [facility] ED RN W/OE and Tasks
[2022-10-03 00:11] LABS: Appearance Urine Cloudy; Color Urine Dark Yellow; Glucose Urine UA Negative (Negative); Leukocyte Esterase Urine Negative (Negative); Nitrite Urine Negative (Negative); Specific Gravity - Urine >= 1.030 (1.005-1.025); UMIC TRIGGER UACC YES; Urine Blood Negative (Negative); Urine Ketones 40 mg/dL (Negative); Urine Protein 30 (1+) mg/dL (Neg-Trace)
[2022-10-03 00:22] LABS: Bacteria Urine None Seen (None Seen); Calcium Oxalate Crystals Urine Present; Hyaline Casts Urine 0-2 /LPF (0-2); RBC Urine 0-2 /HPF (0-2); WBC Urine 0-5 /HPF (0-5)
[2022-10-03 02:27] VITALS: BP 121/62; PULSE 97; RESP 16; TEMP 36.4; O2SAT 97
--- NOTE | 2022-10-03 02:28 | MHC.EDTECH ---
THIS PCT JUST ASSUMED CARE OF PATIENT ,VITALS SIGN TAKEN .
[2022-10-03] MEDS: Cyclobenzaprine HCl 10 MG TABLET PO (03:23)
[2022-10-03] MEDS: Ibuprofen 600 MG TABLET PO (03:23)
== END 2022-10-03 03:25 | disposition home or self-care (01) ==
PROVIDERS: Physician Assistant; Emergency Provider Internal Medicine; PCP Family Medicine
DX: R10.13 Epigastric pain (principal); M54.50 Low back pain, unspecified; R11.2 Nausea with vomiting, unspecified; Z79.899 Other long term (current) drug therapy
CPT/HCPCS: 36415; 74176; 80048; 80076; 81001; 83690; 83735; 84702; 85025; 99283; 99284

== ENCOUNTER 2022-10-27 08:31 | Outpatient (REF) | payer MEDICAID, SELFPAY ==
--- NOTE | ~2022-10-27 | CT_ITS ---
EXAMINATION: CT ABDOMEN WITH CONTRAST CLINICAL INFORMATION: Left upper quadrant pain COMPARISON: Previous CT of the abdomen and pelvis October 2022 TECHNIQUE: Contiguous axial thin section helical images of the abdomen were performed following the administration of oral contrast and 85 mL of Omnipaque 350 intravenous contrast. The data set was reformatted in the coronal and sagittal planes and reviewed on an independent workstation. This CT examination was performed using dose optimization techniques as appropriate, variously including the following: *Automated exposure control *Adjustment of mA and/or kV according to patient size (this includes techniques or standardized protocols for targeted exams where dose is matched to indication/reason for exam; i.e. extremities or head) *Use of iterative reconstruction technique DLP: 157 mGy-cm FINDINGS: LUNG BASES: Normal LIVER, GALLBLADDER, AND BILIARY TREE: Normal PANCREAS: Normal SPLEEN: Normal ADRENAL GLANDS AND KIDNEYS: Small nonobstructing right lower pole renal stones measuring 1 to 2 mm. Adrenal glands and kidneys are otherwise normal. BOWEL LOOPS: There is diastasis of the rectus muscles. Small bowel loops are seen in this region. No definite hernia is seen. LYMPH NODES: Normal. VASCULAR: Unremarkable. BONES: Normal CT/CT abdomen w IV con IMPRESSION: Small nonobstructing right renal stone. Diastasis of the rectus muscles. Fleischner guidelines were followed.
[2022-10-27] MEDS: iohexoL 350 MG/ML 100 ML INFUS..BTL 85 ML IV (10:11)
[2022-10-27] MEDS: Barium Sulfate Oral (Vanilla) 450 ML ORAL.SUSP PO (10:11)
== END 2022-10-27 08:32 | disposition home or self-care (01) ==
LOC: HO.CT 08:31
PROVIDERS: PCP Family Medicine; Visit Provider Family Medicine
DX: R10.12 Left upper quadrant pain (principal)
CPT/HCPCS: 74160; Q9967

== ENCOUNTER 2022-12-08 15:29 | Outpatient (REF) | payer MEDICAID, SELFPAY ==
--- NOTE | ~2022-12-08 | US_ITS ---
EXAMINATION: US PELVIS COMPLETE CLINICAL INFORMATION: Pain COMPARISON: CT abdomen pelvis 10/02/2022 TECHNIQUE: Transabdominal and transvaginal imaging was performed. FINDINGS: The uterus is of normal size and echogenicity measuring 8.6 x 4.2 x 5.1 cm. A regular homogeneous endometrium is identified measuring 0.8 cm. Both ovaries are of normal size and echogenicity. The right measures 1.2 x 1.1 x 1.4 cm for a volume of 1.0 mL. The left measures 3.5 x 2.1 x 2.3 cm for a volume of 8.8 mL. There is no pelvic free fluid. US/US pelvic and transvaginal IMPRESSION: Unremarkable pelvic ultrasound.
== END 2022-12-08 15:30 | disposition home or self-care (01) ==
LOC: HO.HMGCX 15:29
PROVIDERS: PCP Family Medicine; Visit Provider Advanced Practice Midwife
DX: N92.0 Excessive and frequent menstruation with regular cycle (principal); R10.2 Pelvic and perineal pain
CPT/HCPCS: 76830; 76856

== ENCOUNTER 2023-01-16 14:26 | Outpatient (REF) | payer MEDICAID, SELFPAY ==
--- NOTE | ~2023-01-16 | US_ITS ---
EXAMINATION: US DIAGNOSTIC ULTRASOUND BREAST, LEFT CLINICAL INFORMATION: Patient complaining of left breast pain lower quadrant 4:00-8:00 axis. COMPARISON: None available. TECHNIQUE: Ultrasound of the left breast is performed in the area indicated by the patient with real-time ashraf scale imaging and color Doppler. FINDINGS: There is no focal suspicious finding. There is no solid mass, architectural abnormality, duct ectasia, or edema in the soft tissue planes. No cystic abnormalities. Only normal fibroglandular breast parenchyma is identified. Results were discussed with the patient at time of visit. US/US breast LT limited mamm only IMPRESSION: No findings suspicious for malignancy. Negative exam. No sonographic correlate to the region of breast pain left breast lower quadrant. Recommend clinical management. ASSESSMENT: BI-RADS 1: Negative RECOMMENDATION: Clinical management.
== END 2023-01-16 14:27 | disposition home or self-care (01) ==
LOC: HO.MAMMO 14:26
PROVIDERS: PCP Family Medicine; Visit Provider Advanced Practice Midwife
DX: N64.4 Mastodynia (principal)
CPT/HCPCS: 76642

== ENCOUNTER → 2023-01-16 14:30 | Outpatient (BNV) | payer MEDICAID, SELFPAY | PROVIDERS: PCP Family Medicine; Visit Provider Radiology Diagnostic Radiology | DX: N64.4 Mastodynia (principal) | CPT/HCPCS: 76642 ==

== ENCOUNTER 2023-02-28 17:25 | Outpatient (REF) | payer MEDICAID, SELFPAY | END 2023-02-28 17:26 | disposition home or self-care (01) | LOC: HO.HHCLNP 17:25 | PROVIDERS: Visit Provider Family Medicine | DX: R35.0 Frequency of micturition (principal) | CPT/HCPCS: 87086 ==

== ENCOUNTER 2023-08-27 09:16 | Emergency (ER) | payer MEDICAID, SELFPAY ==
--- NOTE | ~2023-08-27 | XR_ITS ---
EXAMINATION: XR CHEST CLINICAL INFORMATION: Chest pain COMPARISON: Chest radiograph from 09/18/2022 TECHNIQUE: 2 views of the chest were obtained. FINDINGS: No focal consolidation. No pneumothorax. Trachea is midline. Cardiac mediastinal silhouette is not enlarged. No large pleural effusion. Osseous structures are intact. Soft tissues are unremarkable. Bilateral nipple piercings. XR/XR chest 2V IMPRESSION: No acute cardiopulmonary process.
--- NOTE | 2023-08-27 09:18 | ECG_ITS ---
Test Reason : cp Blood Pressure : / mmHG Vent. Rate : 083 BPM Atrial Rate : 083 BPM P-R Int : 120 ms QRS Dur : 082 ms QT Int : 408 ms P-R-T Axes : 055 052 -29 degrees QTc Int : 479 ms Normal sinus rhythm ST & T wave abnormality, consider inferior ischemia Abnormal ECG When compared with ECG of 26-JUN-2022 10:10, No significant changes seen Referred By: Generic ED Physician Electronically Signed By:Ilia Monte
[2023-08-27 09:29] VITALS: BP 138/99; PULSE 87; RESP 17; TEMP 36.8; O2SAT 99; BMI 25.2
[2023-08-27 09:49] LABS: MANUAL DIFF FLAG NO
[2023-08-27 09:51] LABS: Basophils Absolute Auto 0.1 X10*3/uL (0.0-0.2); Basophils Percent Auto 0.6 % (0-2); Eosinophils Percent Auto 0.4 % (0-4); Hematocrit 40.9 % (37.0-47.0); Imm Gran Abs Auto 0.03 X10*3/uL (0.00-0.03); Imm Gran Pct Auto 0.3 % (0.0-0.4); Lymphocytes Percent Auto 21.9 % (20-40); Mean Corpuscular HGB Conc 34.2 g/dl (31.0-35.0); Mean Corpuscular Hemoglobin 30.2 pg (27.0-33.0); Mean Corpuscular Volume 88.1 fL (80.0-98.0); Mean Platelet Volume 9.7 fL (9.4-12.3); Monocytes Absolute Auto 0.6 X10*3/uL (0.1-1.2); Monocytes Percent Auto 6.5 % (2-11); Neutrophils Absolute Auto 6.3 x10*3/uL (2.0-8.3); Neutrophils Percent Auto 70.3 % (45-73); Platelet Count 371 X10*3/uL (160-400); Red Blood Count 4.64 X10*6/uL (4.20-5.50); Red Cell Distribution Width 15.6 % (11.0-16.0); White Blood Count 8.9 X10*3/uL (4.8-10.8)
[2023-08-27 10:24] LABS: Troponin-I High Sensitivity < 2.7 ng/L (<3.5-17.0)
[2023-08-27 10:27] LABS: Anion Gap 16 (12-20); Blood Urea Nitrogen 4 mg/dL (9-16); Calcium 9.2 mg/dL (8.4-10.2); Carbon Dioxide 22 mmol/L (22-29); Chloride 102 mmol/L (96-108); Estimated Glomerular Filt Rate > 60; Glucose Random 116 mg/dL (60-115); HCG Quantitative < 2 mIU/mL; Magnesium 1.6 mg/dL (1.6-2.6); Potassium 2.9 mmol/L (3.3-5.1); Sodium 137 mmol/L (135-145)
--- NOTE | 2023-08-27 14:04 | ED.GENADULT ---
HPI - General Adult General Chief complaint: General Medical Stated complaint: chest pain high bp Time Seen by Provider: 08/27/23 13:44 Source: patient Mode of arrival: ambulatory Limitations: no limitations History of Present Illness HPI narrative: 28-year-old female presents to the ER for evaluation of elevated blood pressure and pounding headache. She states last night she said she did not feel well. She felt like her blood pressure was off. She took her blood pressure multiple times and it was reading in the 140s/100s. She was having a pounding headache and acute on chronic pain under her left breast. This has been on and off for months and is worse with palpation. She was not short of breath. She states she has been under lot of stress lately. She has 3 children at home. She admits to drinking 6 nips of liquor per day. She wants to quit drinking but is not interested in any acute treatments. She states she has diarrhea almost every day and intermittently vomits. She has poor p.o. intake and has early satiety. No abdominal pain. She had not on any medication for hypertension. She came to the ER once her blood pressure reached 165/115 at home MD complaint: High blood pressure and headache Onset (ago): hour(s) Location: head Radiation: non-radiation Severity: moderate Quality: aching Pain Consistency: now resolved Relieving factors: rest Exacerbating factors: other (Stress) Associated symptoms: headaches, loss of appetite, malaise and nausea/vomiting Treatments prior to arrival: none Related Data Previous Rx's Medication Instructions Recorded lorazepam 0.5 mg tablet 0.5 mg PO TID PRN anxiety #10 tabs 11/26/21 lorazepam 1 mg tablet 1 mg PO TID PRN anxiety #10 tabs 02/07/22 albuterol sulfate 90 mcg/actuation 1 inh inhalation QID #8.5 grams 06/26/22 aerosol inhaler meloxicam 15 mg tablet 15 mg PO DAILY #14 tabs 09/18/22 cyclobenzaprine 10 mg tablet 10 mg PO Q8H #20 tabs 10/03/22 ibuprofen 600 mg tablet 600 mg PO Q6H PRN fever or pain 10/03/22 #30 tabs Allergies Allergy/AdvReac Type Severity Reaction Status Date / Time Penicillins Allergy Intermediate Unknown Verified 10/02/22 20:28 oxycodone Allergy Unknown Unknown Verified 10/02/22 20:28 codeine Allergy Unknown Verified 10/02/22 20:28 Review of Systems Review of Systems: Yes all other systems are reviewed and are negative FORMERLY [facility], [facility] Past Medical History Surgical History No history of previous surgery Social History Social History Patient Tobacco Use Status: Never used Tobacco Smoked in Last 30 Days: No Use of substances other than those prescribed or required for medical reasons: No Advance Directives: No Advance Directives Information Provided: No Patient : No Physical Exam ED Vital Signs: Vital Signs - 24 hr 08/27/23 09:29 08/27/23 14:27 08/27/23 14:41 Temperature 98.2 F 98.7 F Pulse Rate 87 79 80 Respiratory Rate 17 13 17 Blood Pressure 138/99 H 123/87 128/89 Pulse Oximetry 99 94 98 Oxygen Delivery Method Room Air Room Air Room Air BMI result Body Mass Index 25.2 Appearance: Alert. Oriented X3. No acute distress. Head: normocephalic, atraumatic. Eyes: Pupils equal, round and reactive to light. Nonicteric ENT: normal external inspection Neck: Normal inspection. Neck supple. CVS: Normal heart rate and rhythm. Pulses normal. Left anterior chest wall tender to palpation Respiratory: No respiratory distress. Breath sounds normal. Abdomen: Soft and nontender. +BS x4 Skin: Skin warm and dry. Normal skin color. Normal skin turgor. No rashes. Extremities: No lower extremity edema. No joint swelling. Neuro/psych: Oriented X 3. No motor deficit. No sensory deficit. CN II-XII intact. Normal speech and cognition. Medications Administered Discontinued Medications Generic Name Dose Route Start Last Admin Trade Name Freq PRN Reason Stop Dose Admin Potassium Chloride 60 meq 08/27/23 14:01 08/27/23 14:28 Potassium Chloride Er 20 Meq Tab.Er.Prt PO 08/27/23 14:02 60 meq ONCE ONE Administration Medical Decision Making Medical Decision Making MDM Narrative: 28-year-old female presents to the ER for evaluation of elevated blood pressure readings at home along with headache and left-sided chest pains. The chest pain is acute on chronic. It is reproducible on examination. She had a negative troponin here. Her blood pressure was significantly improved on arrival 130s/80s. Repeat blood pressure 128/89 without any intervention. Her lab work was only significant for hypokalemia. Potassium was 2.9. No vomiting today. Her history is significant for alcohol abuse. This is most likely the cause of her hypokalemia. She was given oral repletion in the ER. We discussed importance of cutting back and possible quitting and resources were provided to the patient. She has not interested in acute treatment at this time. At this time patient is stable for discharge home with continued blood pressure monitoring at home. No need for medication initiation today. She is feeling better and is stable for discharge home Differential Diagnosis Differential Diagnoses: The differential diagnosis associated with the presentation includes Alcohol abuse, alcohol dependence, alcohol withdrawal, cluster headache, migraine headache, dehydration Admission/Observation Consideration of admission/observation: Escalation of care including admission/observation considered Lab Data MDM Lab Attestation statement: I reviewed the patient's lab results. Hypokalemia 08/27/23 09:40 08/27/23 09:40 Labs: Lab Results 08/27/23 Range/Units 09:40 WBC 8.9 (4.8-10.8) X10*3/uL RBC 4.64 (4.20-5.50) X10*6/uL Hgb 14.0 (12.0-16.0) g/dl Hct 40.9 (37.0-47.0) % MCV 88.1 (80.0-98.0) fL MCH 30.2 (27.0-33.0) pg MCHC 34.2 (31.0-35.0) g/dl RDW 15.6 (11.0-16.0) % Plt Count 371 (160-400) X10*3/uL MPV 9.7 (9.4-12.3) fL Immature Gran % (Auto) 0.3 (0.0-0.4) % Neut % (Auto) 70.3 (45-73) % Lymph % (Auto) 21.9 (20-40) % [place] % (Auto) 6.5 (2-11) % Eos % (Auto) 0.4 (0-4) % Baso % (Auto) 0.6 (0-2) % Lymph # (Auto) 2.0 (1.2-4.9) X10*3/uL [place] # (Auto) 0.6 (0.1-1.2) X10*3/uL Eos # (Auto) 0.0 (0.0-0.4) X10*3/uL Baso # (Auto) 0.1 (0.0-0.2) X10*3/uL Abs Immat Gran (auto) 0.03 (0.00-0.03) X10*3/uL Absolute Neuts (auto) 6.3 (2.0-8.3) x10*3/uL Absolute Nucleated RBC 0.000 (0.0-0.012) X10*3/uL Nucleated RBC % (auto) 0.0 (0.0-0.2) /100WBC Sodium 137 (135-145) mmol/L Potassium 2.9 L* (3.3-5.1) mmol/L Chloride 102 (96-108) mmol/L Carbon Dioxide 22 (22-29) mmol/L Anion Gap 16 (12-20) BUN 4 L (9-16) mg/dL Creatinine 0.66 (0.5-1.4) mg/dL Estim Creat Clear Calc 119.0 Estimated GFR > 60 Random Glucose 116 H (60-115) mg/dL Calcium 9.2 D (8.4-10.2) mg/dL Magnesium 1.6 (1.6-2.6) mg/dL Troponin I High Sens < 2.7 (<3.5-17.0) ng/L Beta HCG, Quant < 2 mIU/mL Independent Interpretation I performed an independent interpretation of an: EKG and Plain X-Ray Interpretation: EKG with normal sinus rhythm, ventricular rate 83 beats per minute, T-wave inversions in leads 3 and AVF, no ST segment elevations or depressions X-ray reviewed, normal-appearing chest x-ray Radiology Impression Discussion of test interpretation with radiology: I have reviewed the radiologist's reading. Radiologist Impression: EXAMINATION: XR CHEST CLINICAL INFORMATION: Chest pain COMPARISON: Chest radiograph from 09/18/2022 TECHNIQUE: 2 views of the chest were obtained. FINDINGS: No focal consolidation. No pneumothorax. Trachea is midline. Cardiac mediastinal silhouette is not enlarged. No large pleural effusion. Osseous structures are intact. Soft tissues are unremarkable. Bilateral nipple piercings. XR/XR chest 2V IMPRESSION: No acute cardiopulmonary process. External Record Review External record reviewed: Outpatient record, Prior outpatient labs and Prior outpatient radiology Prescription Management I considered prescription management with: Pain Medication and Other (Considered antihypertensive however she was much improved without intervention) Chronic Conditions Patient?s care impacted by: Other (Alcohol abuse) Social Determinants Patient?s care significantly limited by Social Determinants of Health including: Other Social Determinant of Health Critical Care Time Critical Care Time Critical Care Time: No Discharge Plan Discharge Clinical Impression: Hypokalemia, Alcohol abuse, Atypical chest pain Patient Disposition: Home, Self-Care Instructions: Hypokalemia (ED), How to Take a Blood Pressure (ED) Additional Instructions: Your EKG and lab workup today were reassuring against any problems with your heart Your potassium was low Make sure you are eating a well balanced diet - some foods rich in potassium are bananas and raisins. you can also have electrolyte rich drinks like Gatorade Recommend cutting back on your alcohol intake. This will help your overall health Monitor your blood pressure once or twice per day and keep track for your doctor Follow up with your doctor If you develop new or worsening symptoms call 911 or come back to the ER for further evaluation. Prescriptions: No Action lorazepam 0.5 mg tablet 0.5 mg PO TID PRN (Reason: anxiety) Qty: 10 0RF lorazepam 1 mg tablet 1 mg PO TID PRN (Reason: anxiety) Qty: 10 0RF albuterol sulfate 90 mcg/actuation HFA aerosol inhaler 1 inh inhalation QID Qty: 8.5 0RF meloxicam 15 mg tablet 15 mg PO DAILY Qty: 14 0RF cyclobenzaprine 10 mg tablet 10 mg PO Q8H Qty: 20 0RF ibuprofen 600 mg tablet 600 mg PO Q6H PRN (Reason: fever or pain) Qty: 30 0RF Interventions: ED Discharge Assessment Last Done: 08/27/23 14:41 Discharge Date/Time: 08/27/23 14:42
[2023-08-27 14:27] VITALS: BP 123/87; PULSE 79; RESP 13; O2SAT 94
[2023-08-27] MEDS: Potassium Chloride ER 20 MEQ TAB.ER.PRT 60 MEQ PO (14:28)
[2023-08-27 14:41] VITALS: BP 128/89; PULSE 80; RESP 17; TEMP 37.1; O2SAT 98
== END 2023-08-27 14:42 | disposition home or self-care (01) ==
PROVIDERS: Emergency Provider Emergency Medicine; PCP Family Medicine
DX: R07.89 Other chest pain (principal); E87.6 Hypokalemia; F10.10 Alcohol abuse, uncomplicated; R51.9 Headache, unspecified
CPT/HCPCS: 36415; 71046; 80048; 83735; 84484; 84702; 85025; 93005; 99283; 99284

== ENCOUNTER → 2023-08-27 09:18 | Outpatient (BNV) | payer MEDICAID, SELFPAY | PROVIDERS: Emergency Provider Emergency Medicine; PCP Family Medicine; Visit Provider Internal Medicine Cardiovascular Disease | DX: R94.31 Abnormal electrocardiogram [ECG] [EKG] (principal) | CPT/HCPCS: 93010 ==

== ENCOUNTER 2023-09-03 22:45 | Inpatient (IN) | payer MEDICAID, SELFPAY ==
--- NOTE | ~2023-09-03 | CT_ITS ---
EXAMINATION: CT ABDOMEN AND PELVIS WITH CONTRAST CLINICAL INFORMATION: Acute pancreatitis question necrotizing or cysts COMPARISON: 09/04/2023 TECHNIQUE: Multidetector volumetric images were obtained from the superior aspect of the liver through the pubic symphysis following administration 85 mL of Omnipaque 350 intravenous contrast. Sagittal and coronal reformatted images were obtained on the technologist's workstation. Oral contrast: No This CT examination was performed using dose optimization techniques as appropriate, variously including the following: *Automated exposure control *Adjustment of mA and/or kV according to patient size (this includes techniques or standardized protocols for targeted exams where dose is matched to indication/reason for exam; i.e. extremities or head) *Use of iterative reconstruction technique DLP: 480 mGy-cm FINDINGS: LUNG BASES: There is new since previous examination moderate bilateral pleural effusions with adjacent compressive atelectasis. LIVER, GALLBLADDER, AND BILIARY TREE: Liver is of low attenuation due to hepatic steatosis without intrahepatic masses or ductal dilatation. Gallbladder is distended with no obvious stones but increase attenuation of bile due to vicarious excretion of previously injected intravenous contrast PANCREAS: There is significant destruction of the pancreas replaced by fluid due to pancreatic necrosis there are foci of pancreatic tissue seen in the distal body and tail but the most of the body and pancreatic head replaced by fluid. The fluid is extending cephalad and caudad. There is developing thrombosis of portal vein and splenic vein SPLEEN: Unremarkable. ADRENAL GLANDS: Unremarkable. KIDNEYS AND URETERS: There is a nonobstructing punctate calculus in the lower pole of right kidney. The left kidney is unremarkable. BLADDER: Unremarkable. GASTROINTESTINAL TRACT: Loops of bowel are distended due to ileus without perforation or wall thickening. Apparent is unremarkable. ABDOMINAL WALL: No significant hernia is appreciated. LYMPH NODES: Normal. VASCULAR: Unremarkable. PELVIC VISCERA: There is pelvic ascites surrounding uterus. OSSEOUS STRUCTURES: Unremarkable. CT/CT abdomen pelvis w IV con IMPRESSION: Severe pancreatitis with necrosis portal and splenic venous thrombosis Growing amount of ascites and pleural effusion. Bibasilar atelectasis. This critical result was discussed with Matt Syed M.D. at 2:50 PM on 09/07/2023 and it was ascertained that the content and urgency of the report was understood at the time of direct communication. Fleischner guidelines were followed.
--- NOTE | ~2023-09-03 | XR_ITS ---
EXAMINATION: XR CHEST CLINICAL INFORMATION: Hypoxia COMPARISON: Portable chest 08/27/2023 TECHNIQUE: AP upright portable view of the chest was obtained, 2 AP views. 7:55 AM FINDINGS: Lung volumes are low. Increased opacity in the lung bases may be due to compressive atelectasis. Slight increased opacity at the left lung base could be due to atelectasis and/or pneumonia. No interstitial pulmonary edema or pneumothorax. No gross pleural effusion. The patient's right nipple ornament obscure the right cardiophrenic angle. The left costophrenic angle is sharp. The cardiomediastinal silhouette is stable. No acute osseous abnormality. XR/XR chest 1V IMPRESSION: 1. Low lung volumes with bibasilar atelectasis. 2. Left lower lobe atelectasis and/or pneumonia.
--- NOTE | ~2023-09-03 | CT_ITS ---
EXAMINATION: CT ABDOMEN AND PELVIS WITH CONTRAST CLINICAL INFORMATION: Epigastric pain. COMPARISON: 10/27/2022 TECHNIQUE: Multidetector volumetric images were obtained from the superior aspect of the liver through the pubic symphysis following administration 85 mL of Omnipaque 350 intravenous contrast. Sagittal and coronal reformatted images were obtained on the technologist's workstation. Oral contrast: No This CT examination was performed using dose optimization techniques as appropriate, variously including the following: *Automated exposure control *Adjustment of mA and/or kV according to patient size (this includes techniques or standardized protocols for targeted exams where dose is matched to indication/reason for exam; i.e. extremities or head) *Use of iterative reconstruction technique DLP: 502 mGy-cm FINDINGS: LUNG BASES: The visualized lung bases are unremarkable. LIVER, GALLBLADDER, AND BILIARY TREE: The liver is of diminished attenuation. No focal liver lesions are seen. The gallbladder is unremarkable with no evidence of radiopaque gallstones, gallbladder wall thickening, or obvious pericholecystic inflammatory changes. PANCREAS: There is significant infiltration/fluid along the pancreas. The pancreatic parenchyma is of heterogeneous diminished attenuation. SPLEEN: Unremarkable. ADRENAL GLANDS: Unremarkable. KIDNEYS AND URETERS: The kidneys are normal in size, shape, and attenuation. No hydronephrosis, hydroureter, or calculi seen. No perinephric stranding. BLADDER: Unremarkable. GASTROINTESTINAL TRACT: The small and large bowel are unremarkable. The appendix is unremarkable. ABDOMINAL WALL: No significant hernia is appreciated. LYMPH NODES: Normal. VASCULAR: Unremarkable. PELVIC VISCERA: The uterus and adnexal regions are within normal limits. There is minimal free fluid within the pelvis. OSSEOUS STRUCTURES: Unremarkable. CT/CT abdomen pelvis w IV con IMPRESSION: 1. Significant infiltration/fluid along the pancreas consistent with acute pancreatitis. The pancreatic parenchyma is of heterogeneous diminished attenuation. Consider early pancreatic necrosis. 2. Hepatic steatosis. 3. Minimal free fluid within the pelvis. Fleischner guidelines were followed.
[2023-09-03 22:55] VITALS: BP 132/86; PULSE 116; O2SAT 98
[2023-09-03 23:12] LABS: Basophils Absolute Auto 0.1 X10*3/uL (0.0-0.2); Basophils Percent Auto 0.6 % (0-2); Eosinophils Percent Auto 0.1 % (0-4); Hematocrit 42.5 % (37.0-47.0); Imm Gran Abs Auto 0.02 X10*3/uL (0.00-0.03); Imm Gran Pct Auto 0.2 % (0.0-0.4); Lymphocytes Absolute Auto 2.5 X10*3/uL (1.2-4.9); MANUAL DIFF FLAG NO; Mean Corpuscular HGB Conc 35.3 g/dl (31.0-35.0); Mean Corpuscular Hemoglobin 30.4 pg (27.0-33.0); Mean Platelet Volume 9.4 fL (9.4-12.3); Monocytes Absolute Auto 0.4 X10*3/uL (0.1-1.2); Neutrophils Absolute Auto 5.6 x10*3/uL (2.0-8.3); Neutrophils Percent Auto 65.1 % (45-73); Platelet Count 438 X10*3/uL (160-400); Red Blood Count 4.94 X10*6/uL (4.20-5.50); Red Cell Distribution Width 15.9 % (11.0-16.0); White Blood Count 8.6 X10*3/uL (4.8-10.8)
[2023-09-03 23:34] LABS: Alanine Aminotransferase 21 U/L (0-31); Albumin Level 4.1 g/dL (3.5-5.0); Alkaline Phosphatase 163 U/L (39-117); Anion Gap 19 (12-20); Aspartate Amino Transferase 31 U/L (5-31); Bilirubin Total 0.4 mg/dL (0.0-1.0); Blood Urea Nitrogen 5 mg/dL (9-16); Calcium 8.6 mg/dL (8.4-10.2); Carbon Dioxide 20 mmol/L (22-29); Chloride 100 mmol/L (96-108); Estimated Glomerular Filt Rate > 60; Glucose Random 154 mg/dL (60-115); HCG Quantitative < 2 mIU/mL; Magnesium 1.9 mg/dL (1.6-2.6); Potassium 3.1 mmol/L (3.3-5.1); Sodium 136 mmol/L (135-145); Total Protein 7.1 g/dL (6.5-8.0)
[2023-09-03 23:46] VITALS: BP 128/67; PULSE 126; RESP 20; TEMP 37; O2SAT 97; BMI 22.3
[2023-09-03 23:49] LABS: Lipase 275 U/L (8-78)
[2023-09-04] VITALS (13 sets, daily range): BP systolic 133–149; BP diastolic 68–111; PULSE 109–140; RESP 17–32; TEMP 36.5–37.4; O2SAT 96–100
[2023-09-04] MEDS: ondansetron HCL 4 MG/2 ML VIAL IVPUSH (03:06)
[2023-09-04] MEDS: 0.9 % Sodium Chloride 1,000 ML 999 ML IV (03:07)
--- NOTE | 2023-09-04 03:17 | ED.ABDPAIN ---
HPI - Abdominal Pain General Chief Complaint: Abdominal Pain Stated Complaint: NAUSEA VOMITING LIGHTHEADED ABD PAIN Time Seen by Provider: 09/04/23 03:09 Source: patient Mode of arrival: ambulatory Limitations: no limitations History of Present Illness HPI narrative: Patient comes emergency room complaining of nausea vomiting and abdominal pain for almost 24 hours now. Patient denies diarrhea. Patient denies sick contacts Related Data Previous Rx's Medication Instructions Recorded lorazepam 0.5 mg tablet 0.5 mg PO TID PRN anxiety #10 tabs 11/26/21 lorazepam 1 mg tablet 1 mg PO TID PRN anxiety #10 tabs 02/07/22 albuterol sulfate 90 mcg/actuation 1 inh inhalation QID #8.5 grams 06/26/22 aerosol inhaler meloxicam 15 mg tablet 15 mg PO DAILY #14 tabs 09/18/22 cyclobenzaprine 10 mg tablet 10 mg PO Q8H #20 tabs 10/03/22 ibuprofen 600 mg tablet 600 mg PO Q6H PRN fever or pain 10/03/22 #30 tabs Allergies Allergy/AdvReac Type Severity Reaction Status Date / Time Penicillins Allergy Intermediate Unknown Verified 09/03/23 23:46 oxycodone Allergy Unknown Unknown Verified 09/03/23 23:46 codeine Allergy Unknown Verified 09/03/23 23:46 Review of Systems Review of Systems Constitutional : No Weight loss, No Fever, No Chills, No Night Sweats, No Fatigue, No Malaise ENT/Mouth : No Hearing loss, No Ear Pain, No Nasal Congestion, No Sinus Pain, No Hoarseness, No sore throat, No Rhinorrhea, No Swallowing Difficulty Eyes: No Eye Pain, No Swelling, No Redness, No Foreign Body, No Discharge, No Vision Changes Cardiovascular : No Chest Pain, No SOB, No Dyspnea on Exertion, No Orthopnea, No Edema, No Palpitations Respiratory : No Cough, No Sputum, No Wheezing, No Smoke Exposure, No Dyspnea Gastrointestinal : Complaining of nausea vomiting and epigastric pain, no diarrhea Genitourinary : no irregular bleeding, No Dysuria, No Urinary Frequency, No Hematuria, No Urinary Incontinence, No Urgency, complaining of right-sided Flank Pain, No Urinary Flow Changes, No Hesitancy Musculoskeletal : No joint pain, No Myalgias, No Joint Swelling Skin : No Skin Lesions, No rash Neuro : No Weakness, No Numbness, No Paresthesias, No Loss of Consciousness, No Dizziness, No Headache Psych : No Anxiety/Panic, No Depression, No SI/HI/AH/VH, No Social Issues, Heme/Lymph: No Bruising, No Bleeding,No Lymphadenopathy Endocrine : No Polyuria, No Polydipsia, No Temperature Intolerance [facility] Past Medical History Medical History (Updated 09/04/23 @ 04:59 by Nadia Abad MD) Alcohol abuse Asthma Anxiety Surgical History No history of previous surgery Social History Social History Patient Tobacco Use Status: Never used Tobacco Advance Directives: No Advance Directives Information Provided: Yes Physical Exam ED Vital Signs: Vital Signs - 24 hr 09/03/23 23:46 09/04/23 02:53 Temperature 98.6 F Pulse Rate 126 H 140 H Respiratory Rate 20 32 H Blood Pressure 128/67 134/68 Pulse Oximetry 97 96 Oxygen Delivery Method Room Air Room Air BMI result Body Mass Index 22.3 Const Other: Appearance: Alert. Oriented X3. Seems uncomfortable Eyes: Pupils equal, round and reactive to light. ENT: Pharynx normal. Neck: Normal inspection. Neck supple. No lymph nodes noted. No crepitus CVS: Normal heart rate and rhythm. Pulses normal. Normal S1 and S2 Respiratory: No respiratory distress. Breath sounds normal. No Wheezing. No rales Abdomen: Soft , no rigidity, no distention, exaggerated response to very mild palpation in all quadrants Skin: Skin warm and dry. Normal skin color. Normal skin turgor. Extremities: No lower extremity edema. No Lacerations. No Rash Neuro: Oriented X 3. No motor deficit. No sensory deficit. Moving all extremities. No slurred speech. CN 2 through 12 grossly intact Psych: calm, cooperative, normal affect Course Course Course Narrative: -patient was asked not to drink anything . Patient drinking water and vomiting despite asking her not to drink or eat anything until we have the results Medical Decision Making Medical Decision Making MDM Narrative: -receiving IV fluids and Zofran when ketorolac -my interpretation of labs: Normal hematology, chemistry shows a potassium of 3.1, being repleted IV. At this time patient unable to tolerate p.o.. Lipase 275, CT scan pending -patient states that she does not drink that much, only occasionally for nips per day when she drinks -my interpretation of CT scan of the abdomen: Positive for pancreatitis -patient continues vomiting, more pain medication and master medications provided for the patient -I discussed the above-mentioned with our hospitalist Dr. Hedrick, patient being admitted -of note, patient requesting help for alcohol abuse/detox once medically cleared Differential Diagnosis Differential Diagnoses: The differential diagnosis associated with the presentation includes (Pancreatitis, peptic ulcer disease, SBO) Admission/Observation Consideration of admission/observation: Escalation of care including admission/observation considered (Given patient's presentation, patient considered) Consult Healthcare Provider Management of the patient was discussed with: Hospitalist Lab Data MDM Lab Attestation statement: I reviewed the patient's lab results. 09/03/23 23:08 09/03/23 23:08 Labs: Lab Results 09/03/23 09/04/23 Range/Units 23:08 03:53 WBC 8.6 (4.8-10.8) X10*3/uL RBC 4.94 (4.20-5.50) X10*6/uL Hgb 15.0 (12.0-16.0) g/dl Hct 42.5 (37.0-47.0) % MCV 86.0 (80.0-98.0) fL MCH 30.4 (27.0-33.0) pg MCHC 35.3 H (31.0-35.0) g/dl RDW 15.9 (11.0-16.0) % Plt Count 438 H (160-400) X10*3/uL MPV 9.4 (9.4-12.3) fL Immature Gran % (Auto) 0.2 (0.0-0.4) % Neut % (Auto) 65.1 (45-73) % Lymph % (Auto) 29.0 (20-40) % [place] % (Auto) 5.0 (2-11) % Eos % (Auto) 0.1 (0-4) % Baso % (Auto) 0.6 (0-2) % Lymph # (Auto) 2.5 (1.2-4.9) X10*3/uL [place] # (Auto) 0.4 (0.1-1.2) X10*3/uL Eos # (Auto) 0.0 (0.0-0.4) X10*3/uL Baso # (Auto) 0.1 (0.0-0.2) X10*3/uL Abs Immat Gran (auto) 0.02 (0.00-0.03) X10*3/uL Absolute Neuts (auto) 5.6 (2.0-8.3) x10*3/uL Absolute Nucleated RBC 0.000 (0.0-0.012) X10*3/uL Nucleated RBC % (auto) 0.0 (0.0-0.2) /100WBC Sodium 136 (135-145) mmol/L Potassium 3.1 L (3.3-5.1) mmol/L Chloride 100 (96-108) mmol/L Carbon Dioxide 20 L (22-29) mmol/L Anion Gap 19 (12-20) BUN 5 L (9-16) mg/dL Creatinine 0.72 (0.5-1.4) mg/dL Estim Creat Clear Calc TNP Estimated GFR > 60 Random Glucose 154 H (60-115) mg/dL Calcium 8.6 D (8.4-10.2) mg/dL Magnesium 1.9 (1.6-2.6) mg/dL Total Bilirubin 0.4 (0.0-1.0) mg/dL AST 31 (5-31) U/L ALT 21 (0-31) U/L Alkaline Phosphatase 163 H (39-117) U/L Total Protein 7.1 (6.5-8.0) g/dL Albumin 4.1 (3.5-5.0) g/dL Lipase 275 H (8-78) U/L Beta HCG, Quant < 2 mIU/mL Urine Opiates Screen Not Detected (Not Detect) Urine Fentanyl Screen Not Detected (Not Detect) Ur Barbiturates Screen Not Detected (Not Detect) Ur Phencyclidine Scrn Not Detected (Not Detect) Ur Amphetamines Screen Not Detected (Not Detect) U Benzodiazepines Scrn Not Detected (Not Detect) Urine Cocaine Screen Not Detected (Not Detect) U Marijuana (THC) Screen Not Detected (Not Detect) Ethyl Alcohol 164 mg/dL Independent Interpretation I performed an independent interpretation of an: CT Scan Radiology Impression Discussion of test interpretation with radiology: I have reviewed the radiologist's reading. Radiologist Impression: FINDINGS: LUNG BASES: The visualized lung bases are unremarkable. LIVER, GALLBLADDER, AND BILIARY TREE: The liver is of diminished attenuation. No focal liver lesions are seen. The gallbladder is unremarkable with no evidence of radiopaque gallstones, gallbladder wall thickening, or obvious pericholecystic inflammatory changes. PANCREAS: There is significant infiltration/fluid along the pancreas. The pancreatic parenchyma is of heterogeneous diminished attenuation. SPLEEN: Unremarkable. ADRENAL GLANDS: Unremarkable. KIDNEYS AND URETERS: The kidneys are normal in size, shape, and attenuation. No hydronephrosis, hydroureter, or calculi seen. No perinephric stranding. BLADDER: Unremarkable. GASTROINTESTINAL TRACT: The small and large bowel are unremarkable. The appendix is unremarkable. ABDOMINAL WALL: No significant hernia is appreciated. LYMPH NODES: Normal. VASCULAR: Unremarkable. PELVIC VISCERA: The uterus and adnexal regions are within normal limits. There is minimal free fluid within the pelvis. OSSEOUS STRUCTURES: Unremarkable. CT/CT abdomen pelvis w IV con IMPRESSION: 1. Significant infiltration/fluid along the pancreas consistent with acute pancreatitis. The pancreatic parenchyma is of heterogeneous diminished attenuation. Consider early pancreatic necrosis. 2. Hepatic steatosis. 3. Minimal free fluid within the pelvis. Fleischner guidelines were followed. Medications Administered Discontinued Medications Generic Name Dose Route Start Last Admin Trade Name Freq PRN Reason Stop Dose Admin Sodium Chloride 1,000 mls @ 999 mls/hr 09/04/23 03:15 09/04/23 03:07 Ns IV 09/04/23 04:15 999 mls/hr .Q1H1M TRUONG Administration Potassium Chloride 10 meq in 100 mls @ 100 mls/hr 09/04/23 03:16 09/04/23 03:29 Potassium Chloride/H20 IV 09/04/23 04:15 100 mls/hr ONCE ONE Administration Iohexol 85 ml 09/04/23 03:43 09/04/23 03:43 Iohexol 350 Mg/Ml 100 Ml Infus..Btl IV 09/04/23 03:44 85 ml ONCE ONE Administration Ketorolac Tromethamine 30 mg 09/04/23 03:15 09/04/23 03:29 Ketorolac Tromethamine 30 Mg/Ml Vial IVPUSH 04/02/24 03:16 30 mg ONCE ONE Administration Ondansetron HCl 4 mg 09/04/23 03:02 09/04/23 03:06 Ondansetron Hcl 4 Mg/2 Ml Vial IVPUSH 09/04/23 03:03 4 mg ONCE ONE Administration Critical Care Time Critical Care Time Critical Care Time: Yes Total Critical Care Time: 75 Attestation: I have personally provided critical care time. Time includes review of lab data, radiology results, discussion with consultants, and monitoring for potential decompensation. Intervention performed as documented. Discharge Plan Discharge Clinical Impression: Acute pancreatitis, Acute hypokalemia, Alcohol abuse Patient Disposition: Admitted As Inpatient Prescriptions: No Action lorazepam 0.5 mg tablet 0.5 mg PO TID PRN (Reason: anxiety) Qty: 10 0RF lorazepam 1 mg tablet 1 mg PO TID PRN (Reason: anxiety) Qty: 10 0RF albuterol sulfate 90 mcg/actuation HFA aerosol inhaler 1 inh inhalation QID Qty: 8.5 0RF meloxicam 15 mg tablet 15 mg PO DAILY Qty: 14 0RF cyclobenzaprine 10 mg tablet 10 mg PO Q8H Qty: 20 0RF ibuprofen 600 mg tablet 600 mg PO Q6H PRN (Reason: fever or pain) Qty: 30 0RF
[2023-09-04] MEDS: Ketorolac Tromethamine 30 MG/ML VIAL IVPUSH (03:29)
[2023-09-04] MEDS: Potassium Chloride/H20 10 MEQ/100 ML PIGGYBACK 100 MEQ IV (03:29)
[2023-09-04] MEDS: iohexoL 350 MG/ML 100 ML INFUS..BTL 85 ML IV (03:43)
--- NOTE | 2023-09-04 03:58 | PC.NURSE ---
Pt in room, vomiting bile, c/o 10/[address] Discuss[address] with Dr[address] Abad and order for IV fluids and zofran. IV access obtained #20 L-AC. Meds given as ordered. Urine collected and sent to lab. Pt reported to this RN tht she drinks 12 nips of rum daily and would like to quit, wants detox. notified.
[2023-09-04 04:10] LABS: Amphetamine Screen Urine Not Detected (Not Detect); Barbiturates, Urine Not Detected (Not Detect); Benzodiazepines Screen Urine Not Detected (Not Detect); Cannabinoid Screen Urine Not Detected (Not Detect); Cocaine Screen Urine Not Detected (Not Detect); Fentanyl, urine Not Detected (Not Detect); Opiate Screen Urine Not Detected (Not Detect); Phencyclidine Screen Urine Not Detected (Not Detect)
[2023-09-04 04:35] LABS: Ethanol 164 mg/dL
[2023-09-04] MEDS: Prochlorperazine Edisylate 10 MG/2 ML VIAL IVPUSH (04:57)
[2023-09-04] MEDS: Morphine Sulfate 4 MG/ML CARTRIDGE IVPUSH (04:57)
[2023-09-04 06:43] LABS: C Reactive Protein < 0.04 mg/dL (< or = 0.50)
[2023-09-04] MEDS: HYDROmorphone HCl 1 MG/ML SYRINGE 0.5 MG IVPUSH ×2 (07:20→11:31)
--- NOTE | 2023-09-04 07:20 | PC.NURSE ---
pt is alert and oriented, skin appropriate for ethnicity-slightly pale in color, respirations even and unlabored, pt reports all over abd pain 15/10, abd soft but tender, denies nausea at this time, sinus tach on the monitor in the 120's
[2023-09-04] MEDS: 0.9 % Sodium Chloride 1,000 ML 999 ML IVCONT ×2 (07:22→14:32)
[2023-09-04] MEDS: KCl 40 mEq in 0.9 % Sodium Chl 40 MEQ/1,000 ML IV.SOLN 150 MEQ IVCONT (07:24)
[2023-09-04] MEDS: 0.9 % Sodium Chloride Flush 3 ML SYRINGE IVFLUSH (07:24)
--- NOTE | 2023-09-04 08:37 | P.HPHOSP_ITS ---
History of Present Illness Date of Service: 09/04/23 Chief Complaint: Abdominal pain 28/F with alcohol dependence drinks 1 sleeve a day. She presents with acute severe, epigastric pain for nearly 24 hours and associated with nausea and vomitting and not able keep anything down. No fever, no diarrhea. Lab work show Lipase of 275, K 3.1, CT of abdomen and pelvis show finding of acute pancreatitis with possible early necrosis, see details below. Review of Systems 2 Review of Systems: Gen: no fever Resp: no sob, no cough CV: no chest, no PORTER, no leg edema GI: No n/v, no abd pain Neuro: No confusion [facility] Medical History (Updated 09/04/23 @ 04:59 by Nadia Abad MD) Alcohol abuse Asthma Anxiety Surgical History No history of previous surgery Social History Alcohol intake: current Alcohol intake frequency: 3 or more drinks per day Alcohol type: hard liquor Patient Tobacco Use Status: Never used Tobacco Smoked in Last 30 Days: No Use of substances other than those prescribed or required for medical reasons: No Advance Directives: No Advance Directives Information Provided: Yes Patient : No service: No Meds Allergies Allergy/AdvReac Type Severity Reaction Status Date / Time Penicillins Allergy Intermediate Unknown Verified 09/03/23 23:46 oxycodone Allergy Unknown Unknown Verified 09/03/23 23:46 codeine Allergy Unknown Verified 09/03/23 23:46 Active Medications: Current Medications Enoxaparin Sodium (Enoxaparin Sodium 40 Mg/0.4 Ml Syringe) 40 mg SUBCUT Q24H TRUONG Hydromorphone HCl (Hydromorphone Hcl 1 Mg/Ml Syringe) 0.5 mg IVPUSH Q4H PRN; Protocol PRN Reason: Pain, Severe (Pain Scale 7-10) Last Admin: 09/04/23 07:20 Dose: 0.5 mg Potassium Chloride/Sodium Chloride (Kcl 40 Meq In 0.9 % Sodium Chl) 40 meq in 1,000 mls @ 150 mls/hr IVCONT .Q6H40M TRUONG Last Admin: 09/04/23 07:24 Dose: 150 mls/hr Sodium Chloride (0.9 % Sodium Chloride Flush 3 Ml Syringe) 3 ml IVFLUSH QSHIFT TRUONG Last Admin: 09/04/23 07:24 Dose: 3 ml Home Medications Medication Instructions Recorded Confirmed Last Taken Type hydroxyzine pamoate 50 mg capsule 50 mg PO Q6H PRN anxiety 09/04/23 09/04/23 Unknown History Physical Exam 2 Vital Signs and Narrative: Vital Signs: Last Vital Signs Temp 97.7 F 09/04/23 07:18 Pulse 129 H 09/04/23 07:18 Resp 20 09/04/23 07:18 BP 138/95 H 09/04/23 07:18 Pulse Ox 96 09/04/23 07:18 O2 Del Method Room Air 09/04/23 07:18 BMI result Body Mass Index 22.3 Constitutional: Alert, in no distress, Mental Status: Oriented to person, place and time. Eyes: Pupils are equal, round and reactive to light. Ear, Nose and Throat: Oropharynx clear, mucous membranes moist. Respiratory: Clear to auscultation. No wheezing, rales or rhonchi. Cardiovascular: S1 S2 regular. No murmurs, rubs or gallops. Gastrointestinal: Abdomen soft, moderate epig tenderness, non-distended. Normal bowel sounds.?and no guarding Neurologic: Cranial nerves II-XII grossly intact. No focal neurological deficits. Moves all extremities spontaneously.? Skin: No rashes or lesions.? Musculoskeletal: No cyanosis or clubbing. Psychiatric: Normal mood and affect? Results Labs 09/03/23 23:08 09/03/23 23:08 Labs: Laboratory Results - last 24 hr 09/03/23 09/04/23 23:08 03:53 MCV 86.0 MCH 30.4 MCHC 35.3 H RDW 15.9 Plt Count 438 H MPV 9.4 Immature Gran % (Auto) 0.2 Neut % (Auto) 65.1 Lymph % (Auto) 29.0 [place] % (Auto) 5.0 Eos % (Auto) 0.1 Baso % (Auto) 0.6 Lymph # (Auto) 2.5 [place] # (Auto) 0.4 Eos # (Auto) 0.0 Baso # (Auto) 0.1 Abs Immat Gran (auto) 0.02 Absolute Neuts (auto) 5.6 Absolute Nucleated RBC 0.000 Nucleated RBC % (auto) 0.0 Anion Gap 19 Estim Creat Clear Calc TNP Estimated GFR > 60 Random Glucose 154 H Calcium 8.6 D Magnesium 1.9 Total Bilirubin 0.4 AST 31 ALT 21 Alkaline Phosphatase 163 H C-Reactive Protein < 0.04 Total Protein 7.1 Albumin 4.1 Lipase 275 H Beta HCG, Quant < 2 Urine Opiates Screen Not Detected Urine Fentanyl Screen Not Detected Ur Barbiturates Screen Not Detected Ur Phencyclidine Scrn Not Detected Ur Amphetamines Screen Not Detected U Benzodiazepines Scrn Not Detected Urine Cocaine Screen Not Detected U Marijuana (THC) Screen Not Detected Ethyl Alcohol 164 Imaging Radiologist's Impressions: Impressions Abdomen/Pelvis CT 09/04/23 03:45 IMPRESSION: 1. Significant infiltration/fluid along the pancreas consistent with acute pancreatitis. The pancreatic parenchyma is of heterogeneous diminished attenuation. Consider early pancreatic necrosis. 2. Hepatic steatosis. 3. Minimal free fluid within the pelvis. Fleischner guidelines were followed. Assessment and Plan (1) Alcohol abuse: Status: Acute (2) Acute hypokalemia: Status: Acute (3) Acute pancreatitis: Status: Acute Plan / with alcohol use disorder being admitted for acute alcoholic pancreaitis Acute alcoholic pancreatitis -NPO -IVF -Analgesic -Advance diet when pain improvs Hypokalemia--repleted orally, will rechec Alcohol use disorder and high risk for withdrawal -Phenobarbital protocol, folic acid and thiamine replacement -addiction med consult DVT prophylaxis--lovenox Full code Admission for at least 2 midnights for management of acute pancreatits, with IVF while NPO Quality Stroke Does the patient have a stroke diagnosis?: No VTE Prior VTE?: No VTE Risk Level:: Medical - moderate - high VTE Device Contraindication: Treatment Not Indicated VTE Drug Contraindication: N/A - Med Ordered
--- NOTE | 2023-09-04 08:55 | PHA.MEDREC ---
Pharmacy Consult ? Medication Reconciliation Pharmacy has completed the medication reconciliation. Spoke to patient at bedside, poor historian. She mentioned sertraline 50mg but has not filled that since Feb x 30 days and had a more recent fill for fluoxetine 10mg in Mar, provider aware
[2023-09-04] MEDS: Enoxaparin Sodium 40 MG/0.4 ML SYRINGE SUBCUT (08:59)
--- NOTE | 2023-09-04 09:47 | PC.NURSE ---
pt denies nausea and vomiting and c/o strong abd pain 9/10 throughout abdomen. per ALEC Ramirez to give PO meds.
[2023-09-04] MEDS: Thiamine HCL 100 MG TABLET PO (09:49)
[2023-09-04] MEDS: PHENobarbitaL sodium 130 MG/ML IM ONCE 153 MG IM (09:49)
[2023-09-04] MEDS: Folic Acid 1 MG TABLET PO (09:49)
--- NOTE | 2023-09-04 12:04 | MHC.CM.PN ---
CM met with Patient at bedside in the ED. Patient lives in a house with her [employer]p, Tobias, and 3 children ages 3,4,and 9 years of age. Home/self care is the goal and CM has initiated and will follow for dc planning. PCP is Dr. Ibeth Lassiter.
[2023-09-04] MEDS: PHENobarbitaL sodium 65 MG/ML VIAL Q3Hx2 115 MG IM ×2 (13:37→16:00)
--- NOTE | 2023-09-04 14:53 | PM.EVENT ---
Event Note Date of Service: 09/04/23 Event Note: pt remains in sinus tach, with peristnt pain. given IVF, repeat labs and may need repeat imagings if not improving, adjust pain med for better pain, control obtain gi consultation. exam unchanged, abd is soft, epig tendernessk no distention, no guarding at this time. Will continue to closely moitor Time Spent With Patient Time: Total time managing care of this patient today ____ minutes.
[2023-09-04 14:56] LABS: Hematocrit 44.8 % (37.0-47.0); Mean Corpuscular HGB Conc 33.5 g/dl (31.0-35.0); Mean Corpuscular Hemoglobin 30.7 pg (27.0-33.0); Mean Corpuscular Volume 91.8 fL (80.0-98.0); Mean Platelet Volume 9.8 fL (9.4-12.3); Platelet Count 250 X10*3/uL (160-400); Red Blood Count 4.88 X10*6/uL (4.20-5.50); Red Cell Distribution Width 16.4 % (11.0-16.0); White Blood Count 23.2 X10*3/uL (4.8-10.8)
[2023-09-04] MEDS: HYDROmorphone HCl 1 MG/ML SYRINGE IVPUSH (15:09)
--- NOTE | 2023-09-04 15:09 | PC.NURSE ---
dr. Garza called to pts room due to resting HR being consistently above 130. 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 additional labs ordered. Per Dr. Garza, increase Dilaudid to 1.0mg Q4H, and OK to give first dose now
[2023-09-04 15:29] LABS: Anion Gap 20 (12-20); Blood Urea Nitrogen 4 mg/dL (9-16); Calcium 8.5 mg/dL (8.4-10.2); Carbon Dioxide 12 mmol/L (22-29); Chloride 108 mmol/L (96-108); Estimated Glomerular Filt Rate > 60; Glucose Random 184 mg/dL (60-115); Potassium 4.8 mmol/L (3.3-5.1); Sodium 135 mmol/L (135-145)
--- NOTE | 2023-09-04 15:34 | PM.GICN ---
History of Present Illness Data of Consult Service Date: 09/04/23 Requesting physician: Alexandro Yu Primary Care Provider: Ibeth Lassiter MD [facility] Reason for consult: Acute pancreatitis This is a 20-year-old female past medical history of alcohol use disorder, presented to the emergency room for severe abdominal pain and was found to have acute pancreatitis. Gastroenterology has been consulted for further evaluation and management. Patient reports history of heavy drinking for the past 2-3 months. Was drinking least 24 oz of rum every day. Last drink was yesterday morning. In fact, had 1 nip in her bag at the time of assessment as well (which the pt wishes to throw away). Reports pain started suddenly yesterday morning with nausea and vomiting. Has not been able to keep anything down since then. Does not report similar history, although has had intermittent pain in the past which she attributed to gastritis. No family history of pancreatic cancer. [facility] Past Medical History Medical History (Updated 09/04/23 @ 04:59 by Nadia Abad MD) Alcohol abuse Asthma Anxiety Surgical History Surgical History No history of previous surgery Social History Social History Alcohol intake: current Alcohol intake frequency: 3 or more drinks per day Alcohol type: hard liquor Patient Tobacco Use Status: Never used Tobacco Smoked in Last 30 Days: No Use of substances other than those prescribed or required for medical reasons: No Advance Directives: No Advance Directives Information Provided: Yes Patient : No service: No Meds Allergies Allergy/AdvReac Type Severity Reaction Status Date / Time Penicillins Allergy Intermediate Unknown Verified 09/03/23 23:46 oxycodone Allergy Unknown Unknown Verified 09/03/23 23:46 codeine Allergy Unknown Verified 09/03/23 23:46 Active Medications: Current Medications Enoxaparin Sodium (Enoxaparin Sodium 40 Mg/0.4 Ml Syringe) 40 mg SUBCUT Q24H [facility] Last Admin: 09/04/23 08:59 Dose: 40 mg Folic Acid (Folic Acid 1 Mg Tablet) 1 mg PO DAILY ROSEANNA Stop: 09/06/23 09:01 Last Admin: 09/04/23 09:49 Dose: 1 mg Hydromorphone HCl (Hydromorphone Hcl 1 Mg/Ml Syringe) 1 mg IVPUSH Q4H PRN; Protocol PRN Reason: Pain, Severe (Pain Scale 7-10) Last Admin: 09/04/23 15:09 Dose: 1 mg Hydroxyzine HCl (Hydroxyzine Hcl 50 Mg Tablet) 50 mg PO Q6H PRN PRN Reason: anxiety Potassium Chloride/Sodium Chloride (Kcl 40 Meq In 0.9 % Sodium Chl) 40 meq in 1,000 mls @ 150 mls/hr IVCONT .Q6H40M [facility] Last Admin: 09/04/23 07:24 Dose: 150 mls/hr Cefepime HCl 2 gm/ Sodium (Chloride) 50 mls @ 100 mls/hr IV Q8H [facility] Pharmacy Consult (Consult Rx Etoh Phenob Im/Po) 1 each MISCELLANE ONCE PRN; Protocol PRN Reason: Consult order Phenobarbital (Phenobarbital 15 Mg Tablet) 45 mg PO BID [facility] Stop: 09/06/23 09:01 Phenobarbital (Phenobarbital 30 Mg Tablet) 30 mg PO BID [facility] Stop: 09/08/23 09:01 Phenobarbital (Phenobarbital 30 Mg Tablet) 30 mg PO DAILY [facility] Stop: 09/10/23 09:01 Sodium Chloride (0.9 % Sodium Chloride Flush 3 Ml Syringe) 3 ml IVFLUSH QSHIFT [facility] Last Admin: 09/04/23 07:24 Dose: 3 ml Thiamine HCl (Thiamine Hcl 100 Mg Tablet) 100 mg PO DAILY [facility] Stop: 09/06/23 09:01 Last Admin: 09/04/23 09:49 Dose: 100 mg Home Medications Medication Instructions Recorded Confirmed Last Taken Type hydroxyzine pamoate 50 mg capsule 50 mg PO Q6H PRN anxiety 09/04/23 09/04/23 Unknown History Physical Exam Vital Signs: Vital Signs: Last Vital Signs Temp 97.7 F 09/04/23 07:18 Pulse 138 H 09/04/23 13:35 Resp 20 09/04/23 13:35 BP 146/105 H 09/04/23 13:35 Pulse Ox 97 09/04/23 13:35 O2 Del Method Room Air 09/04/23 13:35 BMI result Body Mass Index 22.3 Results Labs 09/04/23 14:39 09/04/23 14:39 Labs: Short CBC 09/03/23 09/04/23 Range/Units 23:08 14:39 WBC 8.6 23.2 H (4.8-10.8) X10*3/uL Hgb 15.0 15.0 (12.0-16.0) g/dl Hct 42.5 44.8 (37.0-47.0) % Plt Count 438 H 250 D (160-400) X10*3/uL BMP 09/03/23 09/04/23 23:08 14:39 Sodium 136 135 Potassium 3.1 L 4.8 D Chloride 100 108 Carbon Dioxide 20 L 12 L BUN 5 L 4 L Creatinine 0.72 0.73 Calcium 8.6 D 8.5 Liver Function 09/03/23 Range/Units 23:08 Total Bilirubin 0.4 (0.0-1.0) mg/dL AST 31 (5-31) U/L ALT 21 (0-31) U/L Alkaline Phosphatase 163 H (39-117) U/L Albumin 4.1 (3.5-5.0) g/dL Assessment and Plan (1) Alcohol abuse: Status: Acute (2) Acute pancreatitis: Status: Acute Plan Has acute interstitial pancreatitis with parenchymal necrosis not ruled out. Appears to be related to alcohol use disorder. Other differentials include biliary pancreatitis, triglyceridemia, hypercalcemia, drug-induced, autoimmune. Plan: -aggressive IV resuscitation with LR 250 per hour today and then reduce to 150cc/h tmrw. Aim for decrease in hematocrit and BUN -ok to cont NPO but introduce CLD tomorrow as tolerated - early enteric nutrition may lower risk of local bacterial complications from AIP -Monitor blood sugars and enforce tight glycemic control -pain management with roseanna tylenol 650 TID and oxy 5mg q6h PRN x2-3 days -serial abd exams -given CT appearance of pancreas, will benefit from repeat imaging in 72h to r/o panc necrosis and peripancreatic fluid -lipid profile, ionized and igG ordered to r/o other causes though less likely. -patient also requested to get rid of the alcohol nip that she has in her bag. RN made aware to ensure proper protocol is followed for discarding this. Thank you for allowing me to participate in her care. Please do not hesitate to reach out for any questions or concerns Procedures Date of Service Date of Service: 09/04/23
[2023-09-04 15:45] LABS: Lipase 476 U/L (8-78); TSH reflex Free T4 1.72 uIU/mL (0.32-4.0)
[2023-09-04 15:48] LABS: Lactic Acid 7.7 mmol/L (0.5-2.0)
[2023-09-04 15:55] LABS: ABG HCO3 12 mmol/L (22-26); ABG pCO2 29 mmHg (32-45); ABG pH 7.21 (7.35-7.45); ABG pO2 106 mmHg (83-108)
[2023-09-04] MEDS: cefEPime HCl 2 GM in 0.9 % Sodium Chloride 50 ML IV (15:59)
[2023-09-04] MEDS: 0.9 % Sodium Chloride 1,769.01 ML 1769.01 ML IV (16:00)
[2023-09-04 16:08] LABS: Beta-Hydroxybutyrate 0.17 mmol/L (0.02-0.27); Cholesterol 127 mg/dL (<200); HDL Cholesterol 48 mg/dL (>40); LDL Cholesterol Calculated 10 mg/dL (<100); Triglycerides 347 mg/dL (<150)
[2023-09-04 16:08] LABS: Estimated Average Glucose 91 mg/dL; Hemoglobin A1c % 4.8 % (<6.0)
--- NOTE | 2023-09-04 16:23 | P.EN_ITS ---
Event Note Date of Service: 09/04/23 Event Note: Patient's repeat lab show WBC of 23 from 8 earlier today, Bicab 12, Lactic acid 7.7, ABG: pH7.2/Co2 29, PO2 106. Repeat Lipase 476, up from 275, TG 347, B- Hydroxybuyrate 0.17.. normal saline bolus, in addition to sepsis protocol, bolus, empiric Cefepime started, Discussed with Optometry Professor and she will be monitored in the ICU Overnight, Time Spent With Patient Time: Total time managing care of this patient today ____ minutes.
--- NOTE | 2023-09-04 16:40 | P.PNCC_ITS ---
Subjective Subjective Date of Service: 09/04/23 Interval History: 28-year-old lady with underlying alcohol dependence admitted today for 1 day history of acute abdominal pain secondary to acute alcoholic pancreatitis with early necrosis, now with worsening acidosis and electrolyte abnormalities, being transferred to intensive care unit for close monitoring. Critical Care Time (minutes): 45 Physical Exam 2 Vital Signs: Vital Signs: Last Vital Signs Temp 99.3 F 09/04/23 16:10 Pulse 128 H 09/04/23 16:10 Resp 18 09/04/23 16:10 BP 135/86 09/04/23 16:10 Pulse Ox 97 09/04/23 16:10 O2 Del Method Room Air 09/04/23 16:10 BMI result Body Mass Index 22.3 Const: General: no acute distress, alert and awake Eyes: Sclerae: sclerae normal EOM: EOMs intact bilaterally Neck: Neck: Yes no lymphadenopathy, Yes trachea midline and Yes supple Resp: Effort & Inspection: tachypneic Auscultation: clear to auscultation bilaterally Cardio: Rate: regular rate Rhythm: regular rhythm Heart sounds: no gallops, no murmurs and no rubs GI: Palpation (GI): Soft to palpation, Tenderness to palpation present (GI) (Mild diffuse), no guarding and not rigid Auscultation: normal bowel sounds Extrem: General: Yes no pedal edema, No clubbing and No cyanosis Objective Data Labs 09/04/23 14:39 09/04/23 14:39 Labs: Laboratory Results - last 24 hr 09/03/23 09/04/23 09/04/23 23:08 03:53 14:36 WBC 8.6 RBC 4.94 Hgb 15.0 Hct 42.5 MCV 86.0 MCH 30.4 MCHC 35.3 H RDW 15.9 Plt Count 438 H MPV 9.4 Immature Gran % (Auto) 0.2 Neut % (Auto) 65.1 Lymph % (Auto) 29.0 [place] % (Auto) 5.0 Eos % (Auto) 0.1 Baso % (Auto) 0.6 Lymph # (Auto) 2.5 [place] # (Auto) 0.4 Eos # (Auto) 0.0 Baso # (Auto) 0.1 Abs Immat Gran (auto) 0.02 Absolute Neuts (auto) 5.6 Absolute Nucleated RBC 0.000 Nucleated RBC % (auto) 0.0 O2 Saturation ABG pH at Pt Temp ABG pCO2 at Pt Temp ABG pO2 at Pt Temp ABG HCO3 ABG Base Excess (Actual) Sodium 136 Potassium 3.1 L Chloride 100 Carbon Dioxide 20 L Anion Gap 19 BUN 5 L Creatinine 0.72 Estim Creat Clear Calc TNP Estimated GFR > 60 Random Glucose 154 H Estimat Average Glucose 91 Hemoglobin A1c % 4.8 Lactic Acid Calcium 8.6 D Magnesium 1.9 Total Bilirubin 0.4 AST 31 ALT 21 Alkaline Phosphatase 163 H C-Reactive Protein < 0.04 Total Protein 7.1 Albumin 4.1 Triglycerides Cholesterol LDL Cholesterol, Calc HDL Cholesterol Lipase 275 H Beta-Hydroxybutyrate TSH Beta HCG, Quant < 2 Urine Opiates Screen Not Detected Urine Fentanyl Screen Not Detected Ur Barbiturates Screen Not Detected Ur Phencyclidine Scrn Not Detected Ur Amphetamines Screen Not Detected U Benzodiazepines Scrn Not Detected Urine Cocaine Screen Not Detected U Marijuana (THC) Screen Not Detected Ethyl Alcohol 164 09/04/23 09/04/23 09/04/23 14:39 15:28 15:47 WBC 23.2 H RBC 4.88 Hgb 15.0 Hct 44.8 MCV 91.8 D MCH 30.7 MCHC 33.5 RDW 16.4 H Plt Count 250 D MPV 9.8 Immature Gran % (Auto) Neut % (Auto) Lymph % (Auto) [place] % (Auto) Eos % (Auto) Baso % (Auto) Lymph # (Auto) [place] # (Auto) Eos # (Auto) Baso # (Auto) Abs Immat Gran (auto) Absolute Neuts (auto) Absolute Nucleated RBC 0.000 Nucleated RBC % (auto) 0.0 O2 Saturation 100.0 ABG pH at Pt Temp 7.21 L ABG pCO2 at Pt Temp 29 L ABG pO2 at Pt Temp 106 ABG HCO3 12 L ABG Base Excess (Actual) -14.0 Sodium 135 Potassium 4.8 D Chloride 108 Carbon Dioxide 12 L Anion Gap 20 BUN 4 L Creatinine 0.73 Estim Creat Clear Calc 99.0 Estimated GFR > 60 Random Glucose 184 H Estimat Average Glucose Hemoglobin A1c % Lactic Acid 7.7 H* Calcium 8.5 Magnesium Total Bilirubin AST ALT Alkaline Phosphatase C-Reactive Protein Total Protein Albumin Triglycerides Cholesterol LDL Cholesterol, Calc HDL Cholesterol Lipase 476 H Beta-Hydroxybutyrate TSH 1.72 Beta HCG, Quant Urine Opiates Screen Urine Fentanyl Screen Ur Barbiturates Screen Ur Phencyclidine Scrn Ur Amphetamines Screen U Benzodiazepines Scrn Urine Cocaine Screen U Marijuana (THC) Screen Ethyl Alcohol 09/04/23 15:49 WBC RBC Hgb Hct MCV MCH MCHC RDW Plt Count MPV Immature Gran % (Auto) Neut % (Auto) Lymph % (Auto) [place] % (Auto) Eos % (Auto) Baso % (Auto) Lymph # (Auto) [place] # (Auto) Eos # (Auto) Baso # (Auto) Abs Immat Gran (auto) Absolute Neuts (auto) Absolute Nucleated RBC Nucleated RBC % (auto) O2 Saturation ABG pH at Pt Temp ABG pCO2 at Pt Temp ABG pO2 at Pt Temp ABG HCO3 ABG Base Excess (Actual) Sodium Potassium Chloride Carbon Dioxide Anion Gap BUN Creatinine Estim Creat Clear Calc Estimated GFR Random Glucose Estimat Average Glucose Hemoglobin A1c % Lactic Acid Calcium Magnesium Total Bilirubin AST ALT Alkaline Phosphatase C-Reactive Protein Total Protein Albumin Triglycerides 347 H Cholesterol 127 LDL Cholesterol, Calc 10 HDL Cholesterol 48 Lipase Beta-Hydroxybutyrate 0.17 TSH Beta HCG, Quant Urine Opiates Screen Urine Fentanyl Screen Ur Barbiturates Screen Ur Phencyclidine Scrn Ur Amphetamines Screen U Benzodiazepines Scrn Urine Cocaine Screen U Marijuana (THC) Screen Ethyl Alcohol Progress Note: A&P Assessment and plan (1) Acute pancreatitis: Status: Acute (2) Alcohol abuse: Status: Acute (3) KIAN (acute kidney injury): Status: Acute Plan Assessment: 28-year-old lady with acute alcoholic pancreatitis clinically worsening 1st 24 hours, now being monitored in the intensive care unit. Plan: Neuro: No acute issues. Cardiac: No acute issues. Pulmonary: No acute issues. Renal: Metabolic lactic acidosis with significant tachypnea. Add bicarbonate drip. Endo: No acute issues. GI: Acute alcoholic pancreatitis with early necrosis. Gastroenterology service care appreciated. Continue IV fluid support. Pain control. ID: No acute issues Heme/Onc: No acute issues. Psych: No acute issues. Miscellaneous: No acute issues. Prophylaxis: Heparin Diet: NPO Critical care time spent: 45 minutes Quality Stroke Does the patient have a stroke diagnosis?: No VTE Prior VTE?: No VTE Risk Level:: Medical - moderate - high VTE Device Contraindication: Treatment Not Indicated VTE Drug Contraindication: N/A - Med Ordered
[2023-09-04 17:31] LABS: Reflex Lactate? Lactic Acid Added
[2023-09-04] MEDS: fentaNYL citrate/PF 100 MCG/2 ML VIAL 50 MCG IVPUSH ×3 (17:36→22:10)
--- NOTE | 2023-09-04 17:38 | PC.NURSE ---
pt reports 10/10 abd pain. prn fentanyl given
[2023-09-04] MEDS: Acetaminophen 1,000 MG/100 ML PIGGYBACK 400 MG IV ×2 (17:40→23:11)
[2023-09-04 17:59] LABS: ~Lactic Acid-LAB USE ONLY 5.4 mmol/L (0.5-2.0)
[2023-09-04] MEDS: Sodium Bicarbonate 8.4% 150 MEQ in Dextrose 5 % 850 ML 250 MEQ IV ×2 (18:28→22:15)
[2023-09-04 19:43] LABS: Reflex Lactate? 2 Y
[2023-09-04 20:09] LABS: ABG Refer to POC result
[2023-09-04] MEDS: PHENobarbitaL 15 MG TABLET 45 MG PO (20:20)
[2023-09-04 20:28] LABS: ~Lactic Acid-LAB USE ONLY 5.6 mmol/L (0.5-2.0)
[2023-09-04 20:31] LABS: Anion Gap 12 (12-20); Blood Urea Nitrogen 4 mg/dL (9-16); Calcium 7.7 mg/dL (8.4-10.2); Carbon Dioxide 15 mmol/L (22-29); Chloride 110 mmol/L (96-108); Creatinine Clr Calc Pharmacy 129.1; Estimated Glomerular Filt Rate > 60; Glucose Random 227 mg/dL (60-115); Potassium 4.4 mmol/L (3.3-5.1); Sodium 133 mmol/L (135-145)
[2023-09-05] VITALS (24 sets, daily range): BP systolic 118–147; BP diastolic 66–111; PULSE 27–133; RESP 18–28; TEMP 36.2–37.1; O2SAT 91–100
[2023-09-05] MEDS: cefEPime HCl 2 GM in 0.9 % Sodium Chloride 50 ML IV ×4 (00:22→23:13)
[2023-09-05] MEDS: fentaNYL citrate/PF 100 MCG/2 ML VIAL 50 MCG IVPUSH ×12 (00:23→23:29)
[2023-09-05] MEDS: 0.9 % Sodium Chloride Flush 3 ML SYRINGE IVFLUSH ×4 (00:26→23:13)
[2023-09-05] MEDS: Calcium Gluconate/NaCl,Iso-Osm 2 GM/100 ML PLAST..BAG IV ×2 (00:31→15:03)
[2023-09-05 01:05] LABS: Lipase 587 U/L (8-78); Magnesium 1.1 mg/dL (1.6-2.6); Phosphorus 1.3 mg/dL (2.7-4.5)
[2023-09-05 01:06] LABS: Lactic Acid 6.3 mmol/L (0.5-2.0)
[2023-09-05] MEDS: Magnesium Sulfate/H2O 2 GM/50 ML PIGGYBACK IV (01:54)
[2023-09-05] MEDS: Potassium Phosphate/NS 15 MMOL/250 ML PLAST..BAG 62.5 MMOL IV ×4 (01:58→15:07)
[2023-09-05 02:36] LABS: Reflex Lactate? Lactic Acid Added
[2023-09-05] MEDS: Sodium Bicarbonate 8.4% 150 MEQ in Dextrose 5 % 850 ML 250 MEQ IV ×3 (02:55→12:05)
[2023-09-05 03:24] LABS: ~Lactic Acid-LAB USE ONLY 5.6 mmol/L (0.5-2.0)
[2023-09-05] MEDS: Acetaminophen 1,000 MG/100 ML PIGGYBACK 400 MG IV (04:36)
[2023-09-05 05:05] LABS: Reflex Lactate? 2 Y
[2023-09-05 05:31] LABS: VBG Base Excess 0.9 mmol/L; VBG HCO3 23 mmol/L (22-26); VBG pCO2 33 mmHg; VBG pH 7.46 (7.32-7.43); VBG pO2 80 mmHg
[2023-09-05 05:32] LABS: Venous Blood Gas Refer to POC result
[2023-09-05 05:38] LABS: MANUAL DIFF FLAG NO
[2023-09-05 05:42] LABS: Basophils Absolute Auto 0.1 X10*3/uL (0.0-0.2); Basophils Percent Auto 0.5 % (0-2); Eosinophils Absolute Auto 0.1 X10*3/uL (0.0-0.4); Eosinophils Percent Auto 0.6 % (0-4); Hematocrit 40.2 % (37.0-47.0); Hemoglobin 13.9 g/dl (12.0-16.0); Imm Gran Abs Auto 0.16 X10*3/uL (0.00-0.03); Lymphocytes Absolute Auto 1.5 X10*3/uL (1.2-4.9); Lymphocytes Percent Auto 8.9 % (20-40); Mean Corpuscular HGB Conc 34.6 g/dl (31.0-35.0); Mean Corpuscular Hemoglobin 30.8 pg (27.0-33.0); Mean Corpuscular Volume 89.1 fL (80.0-98.0); Monocytes Absolute Auto 0.3 X10*3/uL (0.1-1.2); Monocytes Percent Auto 1.8 % (2-11); Neutrophils Absolute Auto 14.5 x10*3/uL (2.0-8.3); Neutrophils Percent Auto 87.2 % (45-73); Platelet Count 153 X10*3/uL (160-400); Red Blood Count 4.51 X10*6/uL (4.20-5.50); Red Cell Distribution Width 15.8 % (11.0-16.0); White Blood Count 16.7 X10*3/uL (4.8-10.8)
[2023-09-05 05:57] LABS: Alanine Aminotransferase 10 U/L (0-31); Albumin Level 2.5 g/dL (3.5-5.0); Alkaline Phosphatase 101 U/L (39-117); Anion Gap 13 (12-20); Aspartate Amino Transferase 29 U/L (5-31); Bilirubin Total 0.8 mg/dL (0.0-1.0); Blood Urea Nitrogen 7 mg/dL (9-16); Calcium 7.9 mg/dL (8.4-10.2); Carbon Dioxide 24 mmol/L (22-29); Chloride 100 mmol/L (96-108); Creatinine Clr Calc Pharmacy 111.3; Estimated Glomerular Filt Rate > 60; Glucose Random 257 mg/dL (60-115); Magnesium 1.8 mg/dL (1.6-2.6); Potassium 3.9 mmol/L (3.3-5.1); Sodium 133 mmol/L (135-145); Total Protein 4.3 g/dL (6.5-8.0)
[2023-09-05 05:59] LABS: ~Lactic Acid-LAB USE ONLY 5.9 mmol/L (0.5-2.0)
[2023-09-05 06:10] LABS: Lipase 550 U/L (8-78)
[2023-09-05] MEDS: Enoxaparin Sodium 40 MG/0.4 ML SYRINGE SUBCUT (08:35)
[2023-09-05] MEDS: Folic Acid 1 MG TABLET PO (08:36)
[2023-09-05] MEDS: Thiamine HCL 100 MG TABLET PO (08:36)
[2023-09-05] MEDS: PHENobarbitaL 15 MG TABLET 45 MG PO ×2 (08:36→20:27)
--- NOTE | 2023-09-05 09:59 | P.PNCC_ITS ---
Subjective Subjective Date of Service: 09/05/23 Interval History: 28-year-old lady with underlying alcohol dependence admitted on 09/04/2023 for 1 day history of acute abdominal pain secondary to acute alcoholic pancreatitis with early necrosis, after admission to telemetry petty patient with worsening acidosis and electrolyte abnormalities, transferred to intensive care unit for close monitoring in the afternoon 09/04/2023. No events overnight. Acidosis resolved. Critical Care Time (minutes): 0 Physical Exam 2 Vital Signs: Vital Signs: Last Vital Signs Temp 98.8 F 09/05/23 08:00 Pulse 113 H 09/05/23 09:00 Resp 25 H 09/05/23 09:00 BP 134/96 H 09/05/23 09:00 Pulse Ox 96 09/05/23 09:00 O2 Del Method Room Air 09/05/23 09:00 BMI result Body Mass Index 22.3 Const: General: no acute distress, alert and awake Eyes: Sclerae: sclerae normal EOM: EOMs intact bilaterally Neck: Neck: Yes no lymphadenopathy, Yes trachea midline and Yes supple Resp: Effort & Inspection: normal respiratory effort and no respiratory distress Auscultation: clear to auscultation bilaterally Cardio: Rate: tachycardic Rhythm: regular rhythm Heart sounds: no gallops, no murmurs and no rubs GI: Palpation (GI): Soft to palpation, Tenderness to palpation present (GI) (Mild diffuse), no guarding and not rigid Auscultation: normal bowel sounds Extrem: General: Yes no pedal edema, No clubbing and No cyanosis Objective Data Labs 09/05/23 05:27 09/05/23 05:27 Labs: Laboratory Results - last 24 hr 09/04/23 09/04/23 09/04/23 14:36 14:39 15:28 WBC 23.2 H RBC 4.88 Hgb 15.0 Hct 44.8 MCV 91.8 D MCH 30.7 MCHC 33.5 RDW 16.4 H Plt Count 250 D MPV 9.8 Immature Gran % (Auto) Neut % (Auto) Lymph % (Auto) [place] % (Auto) Eos % (Auto) Baso % (Auto) Lymph # (Auto) [place] # (Auto) Eos # (Auto) Baso # (Auto) Abs Immat Gran (auto) Absolute Neuts (auto) Absolute Nucleated RBC 0.000 Nucleated RBC % (auto) 0.0 O2 Saturation ABG pH at Pt Temp ABG pCO2 at Pt Temp ABG pO2 at Pt Temp ABG HCO3 ABG Base Excess (Actual) VBG pH VBG pCO2 VBG pO2 VBG HCO3 VBG O2 Saturation VBG Base Excess Sodium 135 Potassium 4.8 D Chloride 108 Carbon Dioxide 12 L Anion Gap 20 BUN 4 L Creatinine 0.73 Estim Creat Clear Calc 99.0 Estimated GFR > 60 Random Glucose 184 H Estimat Average Glucose 91 Hemoglobin A1c % 4.8 Lactic Acid 7.7 H* Lactic Acid F/U @ 2Hr Lactic Acid F/U @ 4Hr Calcium 8.5 Phosphorus Magnesium Total Bilirubin AST ALT Alkaline Phosphatase Total Protein Albumin Triglycerides Cholesterol LDL Cholesterol, Calc HDL Cholesterol Lipase 476 H Beta-Hydroxybutyrate TSH 1.72 09/04/23 09/04/23 09/04/23 15:47 15:49 17:41 WBC RBC Hgb Hct MCV MCH MCHC RDW Plt Count MPV Immature Gran % (Auto) Neut % (Auto) Lymph % (Auto) [place] % (Auto) Eos % (Auto) Baso % (Auto) Lymph # (Auto) [place] # (Auto) Eos # (Auto) Baso # (Auto) Abs Immat Gran (auto) Absolute Neuts (auto) Absolute Nucleated RBC Nucleated RBC % (auto) O2 Saturation 100.0 ABG pH at Pt Temp 7.21 L ABG pCO2 at Pt Temp 29 L ABG pO2 at Pt Temp 106 ABG HCO3 12 L ABG Base Excess (Actual) -14.0 VBG pH VBG pCO2 VBG pO2 VBG HCO3 VBG O2 Saturation VBG Base Excess Sodium Potassium Chloride Carbon Dioxide Anion Gap BUN Creatinine Estim Creat Clear Calc Estimated GFR Random Glucose Estimat Average Glucose Hemoglobin A1c % Lactic Acid Lactic Acid F/U @ 2Hr 5.4 H* Lactic Acid F/U @ 4Hr Calcium Phosphorus Magnesium Total Bilirubin AST ALT Alkaline Phosphatase Total Protein Albumin Triglycerides 347 H Cholesterol 127 LDL Cholesterol, Calc 10 HDL Cholesterol 48 Lipase Beta-Hydroxybutyrate 0.17 TSH 09/04/23 09/05/23 09/05/23 19:57 00:31 02:58 WBC RBC Hgb Hct MCV MCH MCHC RDW Plt Count MPV Immature Gran % (Auto) Neut % (Auto) Lymph % (Auto) [place] % (Auto) Eos % (Auto) Baso % (Auto) Lymph # (Auto) [place] # (Auto) Eos # (Auto) Baso # (Auto) Abs Immat Gran (auto) Absolute Neuts (auto) Absolute Nucleated RBC Nucleated RBC % (auto) O2 Saturation ABG pH at Pt Temp ABG pCO2 at Pt Temp ABG pO2 at Pt Temp ABG HCO3 ABG Base Excess (Actual) VBG pH VBG pCO2 VBG pO2 VBG HCO3 VBG O2 Saturation VBG Base Excess Sodium 133 L Potassium 4.4 Chloride 110 H Carbon Dioxide 15 L Anion Gap 12 BUN 4 L Creatinine 0.56 Estim Creat Clear Calc 129.1 Estimated GFR > 60 Random Glucose 227 H Estimat Average Glucose Hemoglobin A1c % Lactic Acid 6.3 H* Lactic Acid F/U @ 2Hr 5.6 H* Lactic Acid F/U @ 4Hr 5.6 H* Calcium 7.7 L D Phosphorus 1.3 L Magnesium 1.1 L* Total Bilirubin AST ALT Alkaline Phosphatase Total Protein Albumin Triglycerides Cholesterol LDL Cholesterol, Calc HDL Cholesterol Lipase 587 H Beta-Hydroxybutyrate TSH 09/05/23 09/05/23 05:23 05:27 WBC 16.7 H RBC 4.51 Hgb 13.9 Hct 40.2 MCV 89.1 MCH 30.8 MCHC 34.6 RDW 15.8 Plt Count 153 L D MPV 10.0 Immature Gran % (Auto) 1.0 H Neut % (Auto) 87.2 H Lymph % (Auto) 8.9 L [place] % (Auto) 1.8 L Eos % (Auto) 0.6 Baso % (Auto) 0.5 Lymph # (Auto) 1.5 [place] # (Auto) 0.3 Eos # (Auto) 0.1 Baso # (Auto) 0.1 Abs Immat Gran (auto) 0.16 H Absolute Neuts (auto) 14.5 H Absolute Nucleated RBC 0.000 Nucleated RBC % (auto) 0.0 O2 Saturation ABG pH at Pt Temp ABG pCO2 at Pt Temp ABG pO2 at Pt Temp ABG HCO3 ABG Base Excess (Actual) VBG pH 7.46 H VBG pCO2 33 VBG pO2 80 VBG HCO3 23 VBG O2 Saturation 100.0 VBG Base Excess 0.9 Sodium 133 L Potassium 3.9 Chloride 100 Carbon Dioxide 24 Anion Gap 13 BUN 7 L Creatinine 0.65 Estim Creat Clear Calc 111.3 Estimated GFR > 60 Random Glucose 257 H Estimat Average Glucose Hemoglobin A1c % Lactic Acid Lactic Acid F/U @ 2Hr Lactic Acid F/U @ 4Hr 5.9 H* Calcium 7.9 L Phosphorus 2.0 L Magnesium 1.8 Total Bilirubin 0.8 AST 29 ALT 10 Alkaline Phosphatase 101 Total Protein 4.3 L Albumin 2.5 L Triglycerides Cholesterol LDL Cholesterol, Calc HDL Cholesterol Lipase 550 H Beta-Hydroxybutyrate TSH Progress Note: A&P Assessment and plan (1) KIAN (acute kidney injury): Status: Acute (2) Alcohol abuse: Status: Acute (3) Acute pancreatitis: Status: Acute Plan Assessment: 28-year-old lady with acute alcoholic pancreatitis clinically worsening 1st 24 hours, now being monitored in the intensive care unit. Plan: Neuro: No acute issues. Cardiac: No acute issues. Pulmonary: No acute issues. Renal: Metabolic lactic acidosis, resolved. Continue to monitor renal indices and urine output. Endo: No acute issues. GI: Acute alcoholic pancreatitis with early necrosis. Gastroenterology service care appreciated. Continue IV fluid support. Pain control. ID: No acute issues Heme/Onc: No acute issues. Psych: No acute issues. Miscellaneous: No acute issues. Prophylaxis: Heparin Diet: NPO Quality Stroke Does the patient have a stroke diagnosis?: No VTE Prior VTE?: No VTE Risk Level:: Medical - moderate - high VTE Device Contraindication: Treatment Not Indicated VTE Drug Contraindication: N/A - Med Ordered
[2023-09-05] MEDS: hydrOXYzine HCL 50 MG TABLET PO ×2 (11:36→19:34)
--- NOTE | 2023-09-05 13:19 | P.CDIM_ITS ---
PROVIDER RESPONSE TEXT: To clarify, the appropriate diagnosis supported by the clinical indicators: Acute QUERY TEXT: PHYSICIAN'S DOCUMENTATION REQUEST Date of Query: 09/05/2023 01:06 PM EDT Patient Name: Deepti Aguilar Admit Date: 09/04/2023 Dear Matt Syed, A review of the medical record indicates additional documentation may be needed. Please review below and update the documentation accordingly. Clinical Indicators: On 09/05/23, lactic acid 6.3, 5.6, 5.9 Per Critical Care Progress Note 09/05/23: Metabolic lactic acidosis, resolved. Continue to monitor renal indices and urine output Clarify which of the following accurately represents the acuity of the lactic acidosis. Possible options might include: Acute Acute on chronic Compensated Chronic stable condition Remission Other (explain) Clinically unable to determine (explain) Thank you, Hetal Stephen RN Use of terms such as suspected, likely, concern for, or probable (associated with a specific diagnosi s that is being evaluated, monitored, or treated as if it exists) are acceptable and can be coded in the inpatient se tting, when documented at the time of discharge. Please use your independent medical judgment in providing your response. THIS QUERY IS PART OF THE PERMANENT MEDICAL RECORD
[2023-09-05 14:13] LABS: Venous Blood Gas Refer to POC result
[2023-09-05 14:17] LABS: VBG pCO2 43 mmHg; VBG pH 7.56 (7.32-7.43); VBG pO2 70 mmHg
[2023-09-05 14:18] LABS: VBG Base Excess 15.5 mmol/L; VBG HCO3 39 mmol/L (22-26)
[2023-09-05 14:28] LABS: Lactic Acid 4.2 mmol/L (0.5-2.0)
[2023-09-05 14:37] LABS: Alanine Aminotransferase 10 U/L (0-31); Albumin Level 2.2 g/dL (3.5-5.0); Alkaline Phosphatase 83 U/L (39-117); Anion Gap 11 (12-20); Aspartate Amino Transferase 33 U/L (5-31); Blood Urea Nitrogen 8 mg/dL (9-16); Calcium 7.1 mg/dL (8.4-10.2); Carbon Dioxide 33 mmol/L (22-29); Chloride 93 mmol/L (96-108); Creatinine Clr Calc Pharmacy 136.4; Estimated Glomerular Filt Rate > 60; Glucose Random 205 mg/dL (60-115); Potassium 3.7 mmol/L (3.3-5.1); Sodium 133 mmol/L (135-145); Total Protein 4.1 g/dL (6.5-8.0)
[2023-09-05 14:46] LABS: Lipase 523 U/L (8-78)
[2023-09-05 16:03] LABS: Reflex Lactate? Lactic Acid Added
--- NOTE | 2023-09-05 16:05 | MHC.CM.PN ---
Per ICU rounds no discharge today. Patient continues to require IV Dilauded for ab pain. She continues to score 4 on CIWA scale and Phenobarb protocol. DP goal is home with family support. Patient will arrange for transport home Mother. CM will follow..
[2023-09-05 17:24] LABS: ~Lactic Acid-LAB USE ONLY 3.1 mmol/L (0.5-2.0)
[2023-09-05 18:59] LABS: Reflex Lactate? 2 Y
[2023-09-05 19:57] LABS: ~Lactic Acid-LAB USE ONLY 2.5 mmol/L (0.5-2.0)
[2023-09-05 21:31] LABS: Alanine Aminotransferase 12 U/L (0-31); Albumin Level 2.5 g/dL (3.5-5.0); Alkaline Phosphatase 93 U/L (39-117); Anion Gap 14 (12-20); Aspartate Amino Transferase 35 U/L (5-31); Bilirubin Total 1.4 mg/dL (0.0-1.0); Blood Urea Nitrogen 9 mg/dL (9-16); Calcium 7.8 mg/dL (8.4-10.2); Carbon Dioxide 33 mmol/L (22-29); Chloride 91 mmol/L (96-108); Creatinine Clr Calc Pharmacy 144.6; Estimated Glomerular Filt Rate > 60; Glucose Random 144 mg/dL (60-115); Magnesium 1.6 mg/dL (1.6-2.6); Potassium 3.8 mmol/L (3.3-5.1); Sodium 134 mmol/L (135-145); Total Protein 4.7 g/dL (6.5-8.0)
[2023-09-06] VITALS (24 sets, daily range): BP systolic 110–140; BP diastolic 62–101; PULSE 100–145; RESP 18–31; TEMP 36.6–37; O2SAT 93–97; BMI 31.9
[2023-09-06] MEDS: hydrOXYzine HCL 50 MG TABLET PO (02:10)
[2023-09-06] MEDS: fentaNYL citrate/PF 100 MCG/2 ML VIAL 50 MCG IVPUSH ×7 (04:00→23:23)
[2023-09-06 05:47] LABS: VBG Base Excess 14.1 mmol/L; VBG HCO3 38 mmol/L (22-26); VBG pCO2 47 mmHg; VBG pH 7.52 (7.32-7.43); VBG pO2 38 mmHg
[2023-09-06 05:59] LABS: Alanine Aminotransferase 11 U/L (0-31); Albumin Level 2.3 g/dL (3.5-5.0); Alkaline Phosphatase 98 U/L (39-117); Anion Gap 11 (12-20); Aspartate Amino Transferase 35 U/L (5-31); Bilirubin Total 0.9 mg/dL (0.0-1.0); Blood Urea Nitrogen 10 mg/dL (9-16); Calcium 7.9 mg/dL (8.4-10.2); Carbon Dioxide 34 mmol/L (22-29); Chloride 89 mmol/L (96-108); Creatinine Clr Calc Pharmacy 157.1; Estimated Glomerular Filt Rate > 60; Glucose Random 133 mg/dL (60-115); Lipase 418 U/L (8-78); Magnesium 1.6 mg/dL (1.6-2.6); Phosphorus 3.4 mg/dL (2.7-4.5); Potassium 3.9 mmol/L (3.3-5.1); Sodium 130 mmol/L (135-145); Total Protein 4.7 g/dL (6.5-8.0)
[2023-09-06 06:04] LABS: Hematocrit 36.6 % (37.0-47.0); Hemoglobin 12.5 g/dl (12.0-16.0); Mean Corpuscular HGB Conc 34.2 g/dl (31.0-35.0); Mean Corpuscular Hemoglobin 30.1 pg (27.0-33.0); Mean Corpuscular Volume 88.2 fL (80.0-98.0); Mean Platelet Volume 10.2 fL (9.4-12.3); Platelet Count 106 X10*3/uL (160-400); Red Blood Count 4.15 X10*6/uL (4.20-5.50); Red Cell Distribution Width 15.9 % (11.0-16.0); White Blood Count 10.9 X10*3/uL (4.8-10.8)
[2023-09-06 06:14] LABS: Band Neutrophils Percent 14 % (3-5); Lymphocytes Absolute Manual 0.4 X10*3/uL (1.2-4.9); Lymphocytes Percent Manual 4 % (20-40); Monocytes Absolute Manual 0.4 X10*3/uL (0.1-1.2); Monocytes Percent Manual 4 % (2-11); Neutrophils Percent Manual 78 % (45-73)
[2023-09-06 06:16] LABS: Dohle Bodies PRESENT; Large Platelet PRESENT; Platelet Estimate DECREASED (NORMAL); Platelet Morphology Comment NOTED; RBC Morphology NORMAL; Toxic Vacuolation PRESENT
--- NOTE | 2023-09-06 06:23 | PC.NURSE ---
CARE ASSUMED 7PM...ALERT..ORIENTED X3...REMAINS TACHYCARDIC AND TACHYPNEIC AND ELEVATED DBP PER REPORT...MILDLY ANXIOUS...PRN ATARAX FOR ANXIETY AND PRN FENTANYL PER MAR FOR C/O ABDOMINAL PAIN...PER REPORT O2 2 L/M REQUIRED FOR MARGINAL/LOW SAO2 ON DAY SHIFT...SAO2 95-97% WITH O2 2 L/M...TRIALED ON ROOM AIR THIS AM BUT SAO2 88%-89%..LUNGS DIMINISHED BUT NO CRACKLES AUSCULTATED..FLUID BALANCE (+) 12.5 LITERS SINCE ARRIVAL TO ER...ICU PA UPDATED..FOR CXR AND LASIX 20MG IV X1 PER PA
[2023-09-06 06:32] LABS: Venous Blood Gas Refer to POC result
[2023-09-06] MEDS: Furosemide 20 MG/2 ML VIAL IVPUSH (06:39)
[2023-09-06] MEDS: 0.9 % Sodium Chloride Flush 3 ML SYRINGE IVFLUSH ×3 (07:51→23:27)
[2023-09-06] MEDS: cefEPime HCl 2 GM in 0.9 % Sodium Chloride 50 ML IV ×3 (07:51→23:27)
[2023-09-06] MEDS: Folic Acid 1 MG TABLET PO (08:04)
[2023-09-06] MEDS: PHENobarbitaL 15 MG TABLET 45 MG PO (08:04)
[2023-09-06] MEDS: Thiamine HCL 100 MG TABLET PO (08:04)
[2023-09-06] MEDS: Calcium Gluconate/NaCl,Iso-Osm 2 GM/100 ML PLAST..BAG IV (08:35)
[2023-09-06] MEDS: Albumin Human 25 % 100 ML IV ×3 (08:35→19:54)
[2023-09-06] MEDS: Enoxaparin Sodium 40 MG/0.4 ML SYRINGE SUBCUT (08:35)
[2023-09-06] MEDS: Furosemide 40 MG/4 ML VIAL IVPUSH ×2 (08:35→16:02)
--- NOTE | 2023-09-06 09:34 | P.PNCC_ITS ---
Subjective Subjective Date of Service: 09/06/23 Interval History: 28-year-old lady with underlying alcohol dependence admitted on 09/04/2023 for 1 day history of acute abdominal pain secondary to acute alcoholic pancreatitis with early necrosis, after admission to telemetry petty patient with worsening acidosis and electrolyte abnormalities, transferred to intensive care unit for close monitoring in the afternoon 09/04/2023. No events overnight. Critical Care Time (minutes): 0 Physical Exam 2 Vital Signs: Vital Signs: Last Vital Signs Temp 98.0 F 09/06/23 08:00 Pulse 119 H 09/06/23 09:00 Resp 25 H 09/06/23 09:00 BP 140/90 H 09/06/23 09:00 Pulse Ox 95 09/06/23 09:00 O2 Del Method Nasal Cannula 09/06/23 09:00 O2 Flow Rate 2 09/06/23 09:00 BMI result Body Mass Index 31.9 Const: General: no acute distress, alert and awake Eyes: Sclerae: sclerae normal EOM: EOMs intact bilaterally Neck: Neck: Yes no lymphadenopathy, Yes trachea midline and Yes supple Resp: Effort & Inspection: tachypneic Auscultation: crackles bilateral Cardio: Rate: tachycardic Rhythm: regular rhythm Heart sounds: no gallops, no murmurs and no rubs GI: Palpation (GI): Firmness to palpation present (GI), Tenderness to palpation present (GI) (Mild diffuse), no guarding, not rigid and Other GI palpation findings present ( Nontender) Auscultation: normal bowel sounds Extrem: General: No clubbing, No cyanosis and Yes edema (1+ bilateral) Objective Data Labs 09/06/23 04:59 09/06/23 04:59 Labs: Laboratory Results - last 24 hr 09/05/23 09/05/23 09/05/23 13:59 16:59 19:11 WBC RBC Hgb Hct MCV MCH MCHC RDW Plt Count MPV Absolute Nucleated RBC Nucleated RBC % (auto) Neutrophils % (Manual) Band Neutrophils % Lymphocytes % (Manual) Monocytes % (Manual) Abs Neuts (Manual) Lymphocytes # (Manual) Monocytes # (Manual) Toxic Vacuolation Dohle Bodies Platelet Estimate Large Platelets Plt Morphology Comment RBC Morphology VBG pH 7.56 H VBG pCO2 43 VBG pO2 70 VBG HCO3 39 H VBG O2 Saturation 99.0 VBG Base Excess 15.5 Sodium 133 L Potassium 3.7 Chloride 93 L Carbon Dioxide 33 H Anion Gap 11 L BUN 8 L Creatinine 0.53 Estim Creat Clear Calc 136.4 Estimated GFR > 60 Random Glucose 205 H Lactic Acid 4.2 H* Lactic Acid F/U @ 2Hr 3.1 H* Lactic Acid F/U @ 4Hr 2.5 H* Calcium 7.1 L D Phosphorus Magnesium Total Bilirubin 1.0 AST 33 H ALT 10 Alkaline Phosphatase 83 Total Protein 4.1 L Albumin 2.2 L Lipase 523 H 09/05/23 09/06/23 09/06/23 21:09 04:59 05:06 WBC 10.9 H RBC 4.15 L Hgb 12.5 Hct 36.6 L MCV 88.2 MCH 30.1 MCHC 34.2 RDW 15.9 Plt Count 106 L D MPV 10.2 Absolute Nucleated RBC 0.000 Nucleated RBC % (auto) 0.0 Neutrophils % (Manual) 78 H Band Neutrophils % 14 H Lymphocytes % (Manual) 4 L Monocytes % (Manual) 4 Abs Neuts (Manual) 10.0 H Lymphocytes # (Manual) 0.4 L Monocytes # (Manual) 0.4 Toxic Vacuolation PRESENT Dohle Bodies PRESENT Platelet Estimate DECREASED Large Platelets PRESENT Plt Morphology Comment NOTED RBC Morphology NORMAL VBG pH 7.52 H VBG pCO2 47 VBG pO2 38 VBG HCO3 38 H VBG O2 Saturation 67.0 VBG Base Excess 14.1 Sodium 134 L 130 L Potassium 3.8 3.9 Chloride 91 L 89 L Carbon Dioxide 33 H 34 H Anion Gap 14 11 L BUN 9 10 Creatinine 0.50 0.56 Estim Creat Clear Calc 144.6 157.1 Estimated GFR > 60 > 60 Random Glucose 144 H 133 H Lactic Acid Lactic Acid F/U @ 2Hr Lactic Acid F/U @ 4Hr Calcium 7.8 L D 7.9 L Phosphorus 3.0 3.4 Magnesium 1.6 1.6 Total Bilirubin 1.4 H 0.9 AST 35 H 35 H ALT 12 11 Alkaline Phosphatase 93 98 Total Protein 4.7 L 4.7 L Albumin 2.5 L 2.3 L Lipase 418 H Microbiology Microbiology Results: Microbiology 09/04/23 15:28 Blood - Venous Blood Culture - Preliminary No growth after 24 hours. 09/04/23 15:28 Blood - Venous Blood Culture - Preliminary No growth after 24 hours. Progress Note: A&P Assessment and plan (1) Acute respiratory failure with hypoxia: Status: Acute (2) Acute pancreatitis: Status: Acute Plan Assessment: 28-year-old lady with acute alcoholic pancreatitis clinically worsening 1st 24 hours, now being monitored in the intensive care unit. Plan: Neuro: No acute issues. Cardiac: No acute issues. Pulmonary: Acute hypoxic respiratory failure with pulmonary edema secondary to IV fluid resuscitation of underlying pancreatitis, improving with diuresis. Renal: Metabolic lactic acidosis, resolved. Continue to monitor renal indices and urine output. Endo: No acute issues. GI: Acute alcoholic pancreatitis with early necrosis. Gastroenterology service care appreciated. Continue IV fluid support. Pain control. ID: No acute issues Heme/Onc: No acute issues. Psych: No acute issues. Miscellaneous: No acute issues. Prophylaxis: Heparin Diet: Full liquid Quality Stroke Does the patient have a stroke diagnosis?: No VTE Prior VTE?: No VTE Risk Level:: Medical - moderate - high VTE Device Contraindication: Treatment Not Indicated VTE Drug Contraindication: N/A - Med Ordered
[2023-09-06 14:58] LABS: Calcium, Ionized 4.4 mg/dL (4.7-5.5)
[2023-09-06] MEDS: Magnesium Hydrox/Alum Hydrox 30 ML ORAL.SUSP 15 ML PO (16:34)
[2023-09-06] MEDS: PHENobarbitaL 30 MG TABLET PO (20:41)
[2023-09-07] VITALS (19 sets, daily range): BP systolic 109–139; BP diastolic 52–92; PULSE 107–150; RESP 18–27; TEMP 36.4–37.5; O2SAT 92–97; BMI 29.7
[2023-09-07] MEDS: Albumin Human 25 % 100 ML IV (01:59)
[2023-09-07] MEDS: hydrOXYzine HCL 50 MG TABLET PO ×2 (02:11→16:39)
[2023-09-07] MEDS: fentaNYL citrate/PF 100 MCG/2 ML VIAL 50 MCG IVPUSH ×6 (02:12→14:39)
[2023-09-07 05:46] LABS: Hematocrit 25.6 % (37.0-47.0); Hemoglobin 8.9 g/dl (12.0-16.0); Mean Corpuscular HGB Conc 34.8 g/dl (31.0-35.0); Mean Corpuscular Hemoglobin 30.8 pg (27.0-33.0); Mean Corpuscular Volume 88.6 fL (80.0-98.0); Mean Platelet Volume 10.8 fL (9.4-12.3); Platelet Count 65 X10*3/uL (160-400); Red Blood Count 2.89 X10*6/uL (4.20-5.50); Red Cell Distribution Width 16.2 % (11.0-16.0); White Blood Count 6.9 X10*3/uL (4.8-10.8)
[2023-09-07 05:47] LABS: Alanine Aminotransferase 7 U/L (0-31); Albumin Level 3.7 g/dL (3.5-5.0); Alkaline Phosphatase 78 U/L (39-117); Anion Gap 9 (12-20); Aspartate Amino Transferase 30 U/L (5-31); Bilirubin Total 1.2 mg/dL (0.0-1.0); Blood Urea Nitrogen 6 mg/dL (9-16); Calcium 8.7 mg/dL (8.4-10.2); Carbon Dioxide 34 mmol/L (22-29); Chloride 95 mmol/L (96-108); Creatinine Clr Calc Pharmacy 169.2; Estimated Glomerular Filt Rate > 60; Glucose Random 103 mg/dL (60-115); Lipase 283 U/L (8-78); Magnesium 2.1 mg/dL (1.6-2.6); Phosphorus 1.5 mg/dL (2.7-4.5); Potassium 3.4 mmol/L (3.3-5.1); Sodium 135 mmol/L (135-145); Total Protein 5.7 g/dL (6.5-8.0)
[2023-09-07] MEDS: Potassium Phosphate/NS 15 MMOL/250 ML PLAST..BAG 62.5 MMOL IV ×2 (06:24→11:10)
[2023-09-07 06:28] LABS: Band Neutrophils Percent 9 % (3-5); Lymphocytes Percent Manual 15 % (20-40); Macrocytosis 1+ (5-14) /OIF; Monocytes Absolute Manual 0.3 X10*3/uL (0.1-1.2); Monocytes Percent Manual 5 % (2-11); Neutrophils Absolute Manual 5.5 X10*3/uL (2.0-8.3); Neutrophils Percent Manual 71 % (45-73); Nucleated Red Blood Cells 1 /100WBC (0-0); Platelet Estimate DECREASED (NORMAL); Platelet Morphology Comment NORMAL; RBC Morphology NOTED; Spherocytes 1+ (0-2) /OIF
[2023-09-07 06:29] LABS: Basophilic Stippling 1+ (0-2) /OIF; Burr Cells 1+ (0-2) /OIF; Dohle Bodies PRESENT; Polychromasia 1+ (0-2) /OIF; Smudge Cells PRESENT; Toxic Vacuolation PRESENT
[2023-09-07] MEDS: Enoxaparin Sodium 40 MG/0.4 ML SYRINGE SUBCUT (08:24)
[2023-09-07] MEDS: 0.9 % Sodium Chloride Flush 3 ML SYRINGE IVFLUSH (08:25)
[2023-09-07] MEDS: PHENobarbitaL 30 MG TABLET PO (08:25)
--- NOTE | 2023-09-07 09:52 | P.PNCC_ITS ---
Subjective Subjective Date of Service: 09/07/23 Interval History: 28-year-old lady with underlying alcohol dependence admitted on 09/04/2023 for 1 day history of acute abdominal pain secondary to acute alcoholic pancreatitis with early necrosis, after admission to telemetry petty patient with worsening acidosis and electrolyte abnormalities, transferred to intensive care unit for close monitoring in the afternoon 09/04/2023. No events overnight. Improving slowly. Critical Care Time (minutes): 0 Physical Exam 2 Vital Signs: Vital Signs: Last Vital Signs Temp 98.3 F 09/07/23 05:00 Pulse 119 H 09/07/23 08:53 Resp 27 H 09/07/23 08:53 BP 121/71 09/07/23 08:53 Pulse Ox 96 09/07/23 08:53 O2 Del Method Nasal Cannula 09/07/23 08:53 O2 Flow Rate 2 09/07/23 08:53 BMI result Body Mass Index 29.7 Const: General: no acute distress, alert and awake Eyes: Sclerae: sclerae normal EOM: EOMs intact bilaterally Neck: Neck: Yes no lymphadenopathy, Yes trachea midline and Yes supple Resp: Effort & Inspection: normal respiratory effort and no respiratory distress Auscultation: clear to auscultation bilaterally Cardio: Rate: tachycardic Rhythm: regular rhythm Heart sounds: no gallops, no murmurs and no rubs GI: Palpation (GI): Soft to palpation, Tenderness to palpation present (GI) (Mildly diffuse), no guarding and not rigid Auscultation: normal bowel sounds Extrem: General: Yes no pedal edema, No clubbing and No cyanosis Objective Data Labs 09/07/23 05:40 09/07/23 04:35 Labs: Laboratory Results - last 24 hr 09/04/23 09/07/23 09/07/23 15:49 04:35 05:40 WBC 6.9 RBC 2.89 L D Hgb 8.9 L D Hct 25.6 L D MCV 88.6 MCH 30.8 MCHC 34.8 RDW 16.2 H Plt Count 65 L D MPV 10.8 Immature Gran % (Auto) Cancelled Neut % (Auto) Cancelled Lymph % (Auto) Cancelled [place] % (Auto) Cancelled Eos % (Auto) Cancelled Baso % (Auto) Cancelled Lymph # (Auto) Cancelled [place] # (Auto) Cancelled Eos # (Auto) Cancelled Baso # (Auto) Cancelled Abs Immat Gran (auto) Cancelled Absolute Neuts (auto) Cancelled Absolute Nucleated RBC 0.000 Nucleated RBC % (auto) 0.0 Neutrophils % (Manual) 71 Band Neutrophils % 9 H Lymphocytes % (Manual) 15 L Monocytes % (Manual) 5 Abs Neuts (Manual) 5.5 Lymphocytes # (Manual) 1.0 L Monocytes # (Manual) 0.3 Nucleated RBCs 1 H Smudge Cells PRESENT Toxic Vacuolation PRESENT Dohle Bodies PRESENT Platelet Estimate DECREASED Plt Morphology Comment NORMAL RBC Morphology NOTED Polychromasia 1+ (0-2) Basophilic Stippling 1+ (0-2) Macrocytosis 1+ (5-14) Spherocytes 1+ (0-2) [place] Cells 1+ (0-2) Sodium 135 Potassium 3.4 Chloride 95 L Carbon Dioxide 34 H Anion Gap 9 L BUN 6 L Creatinine 0.52 Estim Creat Clear Calc 169.2 Estimated GFR > 60 Random Glucose 103 Calcium 8.7 D Ionized Calcium 4.4 L Phosphorus 1.5 L Magnesium 2.1 Total Bilirubin 1.2 H AST 30 ALT 7 Alkaline Phosphatase 78 Total Protein 5.7 L Albumin 3.7 Lipase 283 H Microbiology Microbiology Results: Microbiology 09/04/23 15:28 Blood - Venous Blood Culture - Preliminary No growth after 48 hours. 09/04/23 15:28 Blood - Venous Blood Culture - Preliminary No growth after 48 hours. Progress Note: A&P Assessment and plan (1) Acute hypokalemia: Status: Acute (2) Alcohol abuse: Status: Acute Plan Assessment: 28-year-old lady with acute alcoholic pancreatitis clinically worsening 1st 24 hours, now being monitored in the intensive care unit. Plan: Neuro: No acute issues. Cardiac: No acute issues. Pulmonary: Acute hypoxic respiratory failure with pulmonary edema secondary to IV fluid resuscitation of underlying pancreatitis, improving with diuresis. Renal: Metabolic lactic acidosis, resolved. Continue to monitor renal indices and urine output. Endo: No acute issues. GI: Acute alcoholic pancreatitis with early necrosis. Gastroenterology service care appreciated. Continue IV fluid support. Pain control. ID: No acute issues Heme/Onc: No acute issues. Psych: No acute issues. Miscellaneous: No acute issues. Prophylaxis: Heparin Diet: Full liquid Quality Stroke Does the patient have a stroke diagnosis?: No VTE Prior VTE?: No VTE Risk Level:: Medical - moderate - high VTE Device Contraindication: Treatment Not Indicated VTE Drug Contraindication: N/A - Med Ordered
--- NOTE | 2023-09-07 10:00 | P.CDIM_ITS ---
PROVIDER RESPONSE TEXT: To clarify, the appropriate diagnosis supported by the clinical indicators: Acute QUERY TEXT: PHYSICIAN'S DOCUMENTATION REQUEST Date of Query: 09/07/2023 08:54 AM EDT Patient Name: Deepti Aguilar Admit Date: 09/04/2023 Dear Matt Syed, A review of the medical record indicates additional documentation may be needed. Please review below and update the documentation accordingly. Clinical Indicators: Per Critical Care Progress Note 09/06/23: pulmonary edema secondary to IVF resuscitation improving with diuresis Clarify which of the following accurately represents the acuity of the Pulmonary edema. Possible options might include: Acute Acute on chronic Compensated Chronic stable condition Remission Other (explain) Clinically unable to determine (explain) Thank you, Hetal Stephen RN Use of terms such as suspected, likely, concern for, or probable (associated with a specific diagnosi s that is being evaluated, monitored, or treated as if it exists) are acceptable and can be coded in the inpatient se tting, when documented at the time of discharge. Please use your independent medical judgment in providing your response. THIS QUERY IS PART OF THE PERMANENT MEDICAL RECORD
[2023-09-07] MEDS: Furosemide 40 MG/4 ML VIAL IVPUSH (10:31)
[2023-09-07] MEDS: iohexoL 350 MG/ML 100 ML INFUS..BTL IV (13:29)
--- NOTE | 2023-09-07 15:51 | PM.EVENT ---
Event Note Date of Service: 09/07/23 Event Note: The patient was seen and evaluated CT scan reviewed showing worsening necrosis with associated Portal and Splenic veins thrombosis Started on Heparin drip get surgical evaluation continue IVF and pain medications Advance diet as tolerated Check UA for reported frequency and pain repeat CMP Time Spent With Patient Time: Total time managing care of this patient today ____ minutes.
[2023-09-07 15:59] LABS: INTERNATIONAL NORM RATIO 1.4 (0.9-1.1); Prothrombin Time 16.8 SEC (11.1-13.3)
[2023-09-07 16:01] LABS: PTT Heparin Drip 39.6 SEC (53-77.9)
[2023-09-07] MEDS: Heparin Sodium,Porcine/1/2NS 25,000 UNIT/250 ML IV.SOLN 11 UNIT IVCONT (16:04)
[2023-09-07 16:18] LABS: Immunoglobulin G Subclass 1 470 mg/dL (382-929); Immunoglobulin G Subclass 2 174 mg/dL (241-700); Immunoglobulin G Subclass 3 71 mg/dL (22-178); Immunoglobulin G Subclass 4 8.7 mg/dL (4-86); Immunoglobulin G Total 731 mg/dL (600-1640)
[2023-09-07] MEDS: HYDROmorphone HCl 1 MG/ML SYRINGE IVPUSH ×3 (16:39→20:28)
--- NOTE | 2023-09-07 16:48 | PM.CNGS ---
History of Present Illness Consult details Consult date: 09/07/23 Narrative: 28F referred for alcohol pancreatitis. She is a known ETOH abuser. According to her [id number], she has been drinking very heavily recently, specifically rhum. She also used to smoke marijuan a lot. She started to have severe abdominal last weekend and eventually was brought to the ED on September 03, 2022. She was admtted to the ICU because of electrolyteimbalance and acidosis and was just transferred to Telemetry now. She does describe abdominal pain,mostly on the upper abdomen. She says that this has been severe as on admission. She is now on full liquid and according to report by nursing, she does have intermittent nausea. She did have a ffup CT today showing that the pancreatic parenchyma is mostly gone and replaced by fluid. She has developed portal vein and splenic thrombosis as well. Review of Systems Constitutional: Constitutional: Denies chills and Denies fever(s) Cardiovascular: Cardiovascular: Denies chest pain Respiratory: Respiratory: Denies cough Gastrointestinal: Gastrointestinal: Reports abdominal pain Genitourinary: Genitourinary: Denies difficulty voiding Psychiatric: Psychiatric: Reports anxiety [facility] Past Medical History Medical History (Updated 09/07/23 @ 17:02 by Jose Rivera MD) Necrotizing pancreatitis Benign tumor of breast Alcohol abuse Asthma Anxiety Surgical History Surgical History No history of previous surgery Social History Social History Household Members: Family Housing: House Do you presently have visiting nurse or other home services: No Alcohol intake: current Alcohol intake frequency: 3 or more drinks per day Alcohol type: hard liquor Patient Tobacco Use Status: Never used Tobacco service: No Meds Allergies Allergy/AdvReac Type Severity Reaction Status Date / Time Penicillins Allergy Intermediate Unknown Verified 09/03/23 23:46 oxycodone Allergy Unknown Unknown Verified 09/03/23 23:46 codeine Allergy Unknown Verified 09/03/23 23:46 Active Medications: Current Medications Heparin Sodium (Porcine) (Heparin Sodium,Porcine 5,000 Unit/Ml Vial) 3,100 unit 40 unit/kg (3100 unit) IVPUSH PROTOCOL BOLUS PRN; Protocol PRN Reason: 40 unit/kg - Heparin Protocol Heparin Sodium (Porcine) (Heparin Sodium,Porcine 5,000 Unit/Ml Vial) 6,300 unit 80 unit/kg (6300 unit) IVPUSH PROTOCOL BOLUS PRN; Protocol PRN Reason: 80 unit/kg - Heparin Protocol Hydromorphone HCl (Hydromorphone Hcl 1 Mg/Ml Syringe) 1 mg IVPUSH Q4H PRN; Protocol PRN Reason: Pain, Severe (Pain Scale 7-10) Last Admin: 09/07/23 16:39 Dose: 1 mg Hydroxyzine HCl (Hydroxyzine Hcl 50 Mg Tablet) 50 mg PO Q6H PRN PRN Reason: anxiety Last Admin: 09/07/23 16:39 Dose: 50 mg Heparin Sodium/Sodium Chloride (Heparin Sodium,Porcine/1/2ns) 25,000 unit in 250 mls @ 0 mls/hr IVCONT .Q0M [facility]; Protocol Last Admin: 09/07/23 16:04 Dose: 14 units/kg/hr, 11 mls/hr Pharmacy Consult (Consult Rx Etoh Phenob Im/Po) 1 each MISCELLANE ONCE PRN; Protocol PRN Reason: Consult order Phenazopyridine HCl (Phenazopyridine Hcl 100 Mg Tablet) 100 mg PO TIDWM [facility] Stop: 09/09/23 12:01 Phenobarbital (Phenobarbital 30 Mg Tablet) 30 mg PO BID [facility] Stop: 09/08/23 09:01 Last Admin: 09/07/23 08:25 Dose: 30 mg Phenobarbital (Phenobarbital 30 Mg Tablet) 30 mg PO DAILY [facility] Stop: 09/10/23 09:01 Sodium Chloride (0.9 % Sodium Chloride Flush 3 Ml Syringe) 3 ml IVFLUSH QSHIFT [facility] Last Admin: 09/07/23 16:10 Dose: Not Given Physical Exam Vital Signs: Vital Signs: Last Vital Signs Temp 98.6 F 09/07/23 16:26 Pulse 123 H 09/07/23 16:26 Resp 18 09/07/23 16:26 BP 127/76 09/07/23 16:26 Pulse Ox 95 09/07/23 16:26 O2 Del Method Nasal Cannula 09/07/23 16:26 O2 Flow Rate 2 09/07/23 16:26 BMI result Body Mass Index 29.7 Const: Other: appears anxious General: no acute distress Resp: Effort & Inspection: normal respiratory effort Cardio: Rate: tachycardic GI: Palpation (GI): Tenderness to palpation present (GI) (diffusely,mostly upper) Results Labs 09/07/23 05:40 09/07/23 04:35 Labs: Abnormal lab results 09/04/23 09/07/23 09/07/23 Range/Units 15:49 04:35 05:40 RBC 2.89 L D (4.20-5.50) X10*6/uL Hgb 8.9 L D (12.0-16.0) g/dl Hct 25.6 L D (37.0-47.0) % RDW 16.2 H (11.0-16.0) % Plt Count 65 L D (160-400) X10*3/uL Band Neutrophils % 9 H (3-5) % Lymphocytes % (Manual) 15 L (20-40) % Lymphocytes # (Manual) 1.0 L (1.2-4.9) X10*3/uL Nucleated RBCs 1 H (0-0) /100WBC PT (11.1-13.3) SEC INR (0.9-1.1) aPTT Heparin Protocol (53-77.9) SEC Chloride 95 L (96-108) mmol/L Carbon Dioxide 34 H (22-29) mmol/L Anion Gap 9 L (12-20) BUN 6 L (9-16) mg/dL Phosphorus 1.5 L (2.7-4.5) mg/dL Total Bilirubin 1.2 H (0.0-1.0) mg/dL Total Protein 5.7 L (6.5-8.0) g/dL Lipase 283 H (8-78) U/L IgG Subclass 2 174 L (241-700) mg/dL 09/07/23 Range/Units 15:15 RBC (4.20-5.50) X10*6/uL Hgb (12.0-16.0) g/dl Hct (37.0-47.0) % RDW (11.0-16.0) % Plt Count (160-400) X10*3/uL Band Neutrophils % (3-5) % Lymphocytes % (Manual) (20-40) % Lymphocytes # (Manual) (1.2-4.9) X10*3/uL Nucleated RBCs (0-0) /100WBC PT 16.8 H (11.1-13.3) SEC INR 1.4 H (0.9-1.1) aPTT Heparin Protocol 39.6 L (53-77.9) SEC Chloride (96-108) mmol/L Carbon Dioxide (22-29) mmol/L Anion Gap (12-20) BUN (9-16) mg/dL Phosphorus (2.7-4.5) mg/dL Total Bilirubin (0.0-1.0) mg/dL Total Protein (6.5-8.0) g/dL Lipase (8-78) U/L IgG Subclass 2 (241-700) mg/dL Short CBC 09/07/23 Range/Units 05:40 WBC 6.9 (4.8-10.8) X10*3/uL Hgb 8.9 L D (12.0-16.0) g/dl Hct 25.6 L D (37.0-47.0) % Plt Count 65 L D (160-400) X10*3/uL BMP 09/07/23 04:35 Sodium 135 Potassium 3.4 Chloride 95 L Carbon Dioxide 34 H BUN 6 L Creatinine 0.52 Calcium 8.7 D Liver Function 09/07/23 Range/Units 04:35 Total Bilirubin 1.2 H (0.0-1.0) mg/dL AST 30 (5-31) U/L ALT 7 (0-31) U/L Alkaline Phosphatase 78 (39-117) U/L Albumin 3.7 (3.5-5.0) g/dL All other labs normal. Imaging Abdomen CT scan report/results: report reviewed and image reviewed CT scan - pelvis: report reviewed and image reviewed Additional studies: Laboratory Results WBC 6.9 X10*3/uL (4.8-10.8) 09/07/23 05:40 RBC 2.89 X10*6/uL (4.20-5.50) L D 09/07/23 05:40 Hgb 8.9 g/dl (12.0-16.0) L D 09/07/23 05:40 Hct 25.6 % (37.0-47.0) L D 09/07/23 05:40 MCV 88.6 fL (80.0-98.0) 09/07/23 05:40 MCH 30.8 pg (27.0-33.0) 09/07/23 05:40 MCHC 34.8 g/dl (31.0-35.0) 09/07/23 05:40 RDW 16.2 % (11.0-16.0) H 09/07/23 05:40 Plt Count 65 X10*3/uL (160-400) L D 09/07/23 05:40 MPV 10.8 fL (9.4-12.3) 09/07/23 05:40 Immature Gran % (Auto) Cancelled 09/07/23 05:40 Neut % (Auto) Cancelled 09/07/23 05:40 Lymph % (Auto) Cancelled 09/07/23 05:40 [place] % (Auto) Cancelled 09/07/23 05:40 Eos % (Auto) Cancelled 09/07/23 05:40 Baso % (Auto) Cancelled 09/07/23 05:40 Lymph # (Auto) Cancelled 09/07/23 05:40 [place] # (Auto) Cancelled 09/07/23 05:40 Eos # (Auto) Cancelled 09/07/23 05:40 Baso # (Auto) Cancelled 09/07/23 05:40 Abs Immat Gran (auto) Cancelled 09/07/23 05:40 Absolute Neuts (auto) Cancelled 09/07/23 05:40 Absolute Nucleated RBC 0.000 X10*3/uL (0.0-0.012) 09/07/23 05:40 Nucleated RBC % (auto) 0.0 /100WBC (0.0-0.2) 09/07/23 05:40 Neutrophils % (Manual) 71 % (45-73) 09/07/23 05:40 Band Neutrophils % 9 % (3-5) H 09/07/23 05:40 Lymphocytes % (Manual) 15 % (20-40) L 09/07/23 05:40 Monocytes % (Manual) 5 % (2-11) 09/07/23 05:40 Abs Neuts (Manual) 5.5 X10*3/uL (2.0-8.3) 09/07/23 05:40 Lymphocytes # (Manual) 1.0 X10*3/uL (1.2-4.9) L 09/07/23 05:40 Monocytes # (Manual) 0.3 X10*3/uL (0.1-1.2) 09/07/23 05:40 Nucleated RBCs 1 /100WBC (0-0) H 09/07/23 05:40 Smudge Cells PRESENT 09/07/23 05:40 Toxic Vacuolation PRESENT 09/07/23 05:40 Dohle Bodies PRESENT 09/07/23 05:40 Platelet Estimate DECREASED (NORMAL) 09/07/23 05:40 Large Platelets PRESENT 09/06/23 04:59 Plt Morphology Comment NORMAL 09/07/23 05:40 RBC Morphology NOTED 09/07/23 05:40 Polychromasia 1+ (0-2) /OIF 09/07/23 05:40 Basophilic Stippling 1+ (0-2) /OIF 09/07/23 05:40 Macrocytosis 1+ (5-14) /OIF 09/07/23 05:40 Spherocytes 1+ (0-2) /OIF 09/07/23 05:40 [place] Cells 1+ (0-2) /OIF 09/07/23 05:40 PT 16.8 SEC (11.1-13.3) H 09/07/23 15:15 INR 1.4 (0.9-1.1) H 09/07/23 15:15 aPTT Heparin Protocol 39.6 SEC (53-77.9) L 09/07/23 15:15 O2 Saturation 100.0 % 09/04/23 15:47 ABG pH at Pt Temp 7.21 (7.35-7.45) L 09/04/23 15:47 ABG pCO2 at Pt Temp 29 mmHg (32-45) L 09/04/23 15:47 ABG pO2 at Pt Temp 106 mmHg (83-108) 09/04/23 15:47 ABG HCO3 12 mmol/L (22-26) L 09/04/23 15:47 ABG Base Excess (Actual) -14.0 mmol/L 09/04/23 15:47 VBG pH 7.52 (7.32-7.43) H 09/06/23 05:06 VBG pCO2 47 mmHg 09/06/23 05:06 VBG pO2 38 mmHg 09/06/23 05:06 VBG HCO3 38 mmol/L (22-26) H 09/06/23 05:06 VBG O2 Saturation 67.0 % 09/06/23 05:06 VBG Base Excess 14.1 mmol/L 09/06/23 05:06 Sodium 135 mmol/L (135-145) 09/07/23 04:35 Potassium 3.4 mmol/L (3.3-5.1) 09/07/23 04:35 Chloride 95 mmol/L (96-108) L 09/07/23 04:35 Carbon Dioxide 34 mmol/L (22-29) H 09/07/23 04:35 Anion Gap 9 (12-20) L 09/07/23 04:35 BUN 6 mg/dL (9-16) L 09/07/23 04:35 Creatinine 0.52 mg/dL (0.5-1.4) 09/07/23 04:35 Estim Creat Clear Calc 169.2 09/07/23 04:35 Estimated GFR > 60 09/07/23 04:35 Random Glucose 103 mg/dL (60-115) 09/07/23 04:35 Estimat Average Glucose 91 mg/dL 09/04/23 14:36 Hemoglobin A1c % 4.8 % (<6.0) 09/04/23 14:36 Lactic Acid 4.2 mmol/L (0.5-2.0) H* 09/05/23 13:59 Lactic Acid F/U @ 2Hr 3.1 mmol/L (0.5-2.0) H* 09/05/23 16:59 Lactic Acid F/U @ 4Hr 2.5 mmol/L (0.5-2.0) H* 09/05/23 19:11 Calcium 8.7 mg/dL (8.4-10.2) D 09/07/23 04:35 Ionized Calcium 4.4 mg/dL (4.7-5.5) L 09/04/23 15:49 Phosphorus 1.5 mg/dL (2.7-4.5) L 09/07/23 04:35 Magnesium 2.1 mg/dL (1.6-2.6) 09/07/23 04:35 Total Bilirubin 1.2 mg/dL (0.0-1.0) H 09/07/23 04:35 AST 30 U/L (5-31) 09/07/23 04:35 ALT 7 U/L (0-31) 09/07/23 04:35 Alkaline Phosphatase 78 U/L (39-117) 09/07/23 04:35 C-Reactive Protein < 0.04 mg/dL (< or = 0.50) 09/03/23 23:08 Total Protein 5.7 g/dL (6.5-8.0) L 09/07/23 04:35 Albumin 3.7 g/dL (3.5-5.0) 09/07/23 04:35 Triglycerides 347 mg/dL (<150) H 09/04/23 15:49 Cholesterol 127 mg/dL (<200) 09/04/23 15:49 LDL Cholesterol, Calc 10 mg/dL (<100) 09/04/23 15:49 HDL Cholesterol 48 mg/dL (>40) 09/04/23 15:49 Lipase 283 U/L (8-78) H 09/07/23 04:35 Beta-Hydroxybutyrate 0.17 mmol/L (0.02-0.27) 09/04/23 15:49 TSH 1.72 uIU/mL (0.32-4.0) 09/04/23 14:39 Beta HCG, Quant < 2 mIU/mL 09/03/23 23:08 Urine Opiates Screen Not Detected (Not Detect) 09/04/23 03:53 Urine Fentanyl Screen Not Detected (Not Detect) 09/04/23 03:53 Ur Barbiturates Screen Not Detected (Not Detect) 09/04/23 03:53 Ur Phencyclidine Scrn Not Detected (Not Detect) 09/04/23 03:53 Ur Amphetamines Screen Not Detected (Not Detect) 09/04/23 03:53 U Benzodiazepines Scrn Not Detected (Not Detect) 09/04/23 03:53 Urine Cocaine Screen Not Detected (Not Detect) 09/04/23 03:53 U Marijuana (THC) Screen Not Detected (Not Detect) 09/04/23 03:53 Ethyl Alcohol 164 mg/dL 09/03/23 23:08 IgG Total 731 mg/dL (600-1640) 09/04/23 15:49 IgG Subclass 1 470 mg/dL (382-929) 09/04/23 15:49 IgG Subclass 2 174 mg/dL (241-700) L 09/04/23 15:49 IgG Subclass 3 71 mg/dL (22-178) 09/04/23 15:49 IgG Subclass 4 8.7 mg/dL (4-86) 09/04/23 15:49 Impressions Chest X-Ray 09/06/23 08:11 IMPRESSION: 1. Low lung volumes with bibasilar atelectasis. 2. Left lower lobe atelectasis and/or pneumonia. Abdomen/Pelvis CT 09/07/23 13:27 IMPRESSION: Severe pancreatitis with necrosis portal and splenic venous thrombosis Growing amount of ascites and pleural effusion. Bibasilar atelectasis. This critical result was discussed with Matt Syed M.D. at 2:50 PM on 09/07/2023 and it was ascertained that the content and urgency of the report was understood at the time of direct communication. Fleischner guidelines were followed. Assessment and Plan (1) Necrotizing pancreatitis: Status: Acute 28F admitted for ETOH pancreatitis. I have reviewed her CT scan images,and her ffup study compared to the inital CT actually shows worsening of her necrotizing pancreatitis. Most of her pancreatic parenchyma is gone and replaced by inflammatory fluid. She remains tachycardic although seems to be hemodynamically stable,and has just been transferred to [facility] from the ICU. She still is signficantly tender and asks for narcotics. The ongoing necrotizing process is concerning. She has also developed portal vein and splenic vein thrombosis. She was just started on heparin drip for this. She has had a drop in Hg earlier, which me be hemodilutional from IV fluid replacement. I would have a very low threshold for transferring her to a tertiary care center for her necrotizing pancreatitis. If there is a high index of suspicion for an infected necrotizing process, she will benefit from debridement. Ideally, she should have needle aspiration for cultures of the pancreatic fluid by IR. She will have senior living sequelae from loss of pancreatic parenchyma including problems with oral intake and nutrition from pancreatic insuffiiciency, and chronic pain. I have explained the above at length with her mother -in-law who also feels she is at high risk for narcotic dependence down the line as she has been getting pain meds during admisson. I have discussed the above with the hospitalist service. Procedures Date of Service Date of Service: 09/11/23
[2023-09-07 17:33] LABS: Appearance Urine Clear; Color Urine Yellow; Glucose Urine UA Negative (Negative); Leukocyte Esterase Urine Negative (Negative); Nitrite Urine Negative (Negative); PH >= 9.0 (5.0-9.0); Specific Gravity - Urine 1.025 (1.005-1.025); UMIC TRIGGER UACC YES; Urine Blood Small (1+) (Negative); Urine Ketones Negative (Negative); Urine Protein 30 (1+) mg/dL (Neg-Trace)
[2023-09-07 17:51] LABS: Bacteria Urine None Seen (None Seen); Hyaline Casts Urine 0-2 /LPF (0-2); RBC Urine 0-2 /HPF (0-2); Squamous Epithelial Cell Urine 0-2 /HPF (0-2); WBC Urine 0-5 /HPF (0-5)
[2023-09-07] MEDS: Lactated Ringers 1,000 ML 150 ML IVCONT (18:28)
--- NOTE | 2023-09-07 19:34 | PM.DS ---
DS: Providers Provider Date of Service: 09/07/23 Date of admission: 09/04/23 06:21 Date of discharge: 09/07/23 Primary care physician: Ibeth Lassiter MD Consults: 09/04/23 08:50 Addiction Medicine Routine Consulting Provider: Addiction Covering Reason for consultation: alcohol dependency Has provider been notified: Yes 09/04/23 15:03 Consult to Gastroenterology Routine Consulting Provider: Gisela Koroma Reason for consultation: acute pancreatitis Has provider been notified: No 09/04/23 15:09 Addiction Medicine Routine Consulting Provider: Addiction Covering Reason for consultation: alcohol dependency Has provider been notified: No 09/07/23 15:40 Consult to General Surgery Routine Consulting Provider: [facility] [place] General Surgeons Reason for consultation: Necrotic pancreatitis for eval and monitoring. DS: Diagnosis Discharge Diagnosis (1) Necrotizing pancreatitis: Status: Acute (2) KIAN (acute kidney injury): Status: Acute (3) Alcohol abuse: Status: Acute DS: Summary Hospital Course Hospital Course: with alcohol dependence drinks 1 sleeve a day. She presents with acute severe, epigastric pain for nearly 24 hours and associated with nausea and vomitting and not able keep anything down. No fever, no diarrhea. Lab work show Lipase of 275, K 3.1, CT of abdomen and pelvis show finding of acute pancreatitis with possible early necrosis; Abdomen/Pelvis CT 09/04/23 03:45 IMPRESSION: 1. Significant infiltration/fluid along the pancreas consistent with acute pancreatitis. The pancreatic parenchyma is of heterogeneous diminished attenuation. Consider early pancreatic necrosis. 2. Hepatic steatosis. 3. Minimal free fluid within the pelvis. Patient admitted on phenobarb protocol for alcohol withdrawal and kept NPO with analgesics and IV fluids. The afternoon of admission patient's condition worsened with a white count increasing to 23,000 and a bicarb of 12 with a lactic acid of 7.7. ABGs demonstrate a pH 7.2 CO2 of 29 and PO2 of 106. Lipase increased to 476. Given these numbers patient was transferred to ICU for more intensive care. Over the next 48 hours she remained hemodynamically stable with correction of PH and divalent; she was transferred out of the ICU on 09/07/2023. She continued to complain of abdominal pain that was worsened along with the tachycardia. Repeat CT of abdomen was done 09/06 @1300: PANCREAS: There is significant destruction of the pancreas replaced by fluid due to pancreatic necrosis there are foci of pancreatic tissue seen in the distal body and tail but the most of the body and pancreatic head replaced by fluid. The fluid is extending cephalad and caudad. There is developing thrombosis of portal vein and splenic vein Patient subsequently started on heparin drip and consult to General surgery was obtained. Discussed with General surgery/GI; given the findings on the recent CT scan and the patient's presentation. .. Patient would benefit from transfer to tertiary care center where pancreatic resection could be performed if necessary. The patient has remained hemodynamically stable at this time and is medically acceptable for transfer to tertiary care facility. Time Attestation Discharge Coordination Time (in mins): 45 Quality: Safe Use of Opioids Does Pt have an Active Cancer Diagnosis on the Problem List?: No Quality: Stroke Does the patient have a stroke diagnosis?: No Physical Exam Vital Signs: Vital Signs: Last Vital Signs Temp 99.5 F 09/07/23 19:27 Pulse 131 H 09/07/23 19:27 Resp 20 09/07/23 19:27 BP 132/72 09/07/23 19:27 Pulse Ox 92 09/07/23 19:27 O2 Del Method Nasal Cannula 09/07/23 19:27 O2 Flow Rate 2 09/07/23 19:27 BMI result Body Mass Index 29.7 Const: Other: Awake alert uncomfortable appearing Resp: Other: Clear to auscultation bilaterally no rales rhonchi or wheezes Cardio: Other: Tachycardic; no S4; positive S1-S2; no S3 murmurs rubs or gallops GI: Other: Slightly distended firm and tender to minimal palpation. Bowel sounds quiet Neuro: Other: Cranial nerves 2-12 grossly intact as tested. Motor is 5/5 all extremities. Sensation is intact. Cognition is appropriate. Gait not observed Extrem: Other: No edema bilaterally DS: Data Data Completed and Pending Labs on day of discharge: Laboratory Results - last 24 hr 09/04/23 09/07/23 09/07/23 15:49 04:35 05:40 WBC 6.9 RBC 2.89 L D Hgb 8.9 L D Hct 25.6 L D MCV 88.6 MCH 30.8 MCHC 34.8 RDW 16.2 H Plt Count 65 L D MPV 10.8 Immature Gran % (Auto) Cancelled Neut % (Auto) Cancelled Lymph % (Auto) Cancelled Shoshone % (Auto) Cancelled Eos % (Auto) Cancelled Baso % (Auto) Cancelled Lymph # (Auto) Cancelled Shoshone # (Auto) Cancelled Eos # (Auto) Cancelled Baso # (Auto) Cancelled Abs Immat Gran (auto) Cancelled Absolute Neuts (auto) Cancelled Absolute Nucleated RBC 0.000 Nucleated RBC % (auto) 0.0 Neutrophils % (Manual) 71 Band Neutrophils % 9 H Lymphocytes % (Manual) 15 L Monocytes % (Manual) 5 Abs Neuts (Manual) 5.5 Lymphocytes # (Manual) 1.0 L Monocytes # (Manual) 0.3 Nucleated RBCs 1 H Smudge Cells PRESENT Toxic Vacuolation PRESENT Dohle Bodies PRESENT Platelet Estimate DECREASED Plt Morphology Comment NORMAL RBC Morphology NOTED Polychromasia 1+ (0-2) Basophilic Stippling 1+ (0-2) Macrocytosis 1+ (5-14) Spherocytes 1+ (0-2) Tawanna Cells 1+ (0-2) PT INR aPTT Heparin Protocol Sodium 135 Potassium 3.4 Chloride 95 L Carbon Dioxide 34 H Anion Gap 9 L BUN 6 L Creatinine 0.52 Estim Creat Clear Calc 169.2 Estimated GFR > 60 Random Glucose 103 Calcium 8.7 D Phosphorus 1.5 L Magnesium 2.1 Total Bilirubin 1.2 H AST 30 ALT 7 Alkaline Phosphatase 78 Total Protein 5.7 L Albumin 3.7 Lipase 283 H Urine Color Urine Appearance Urine pH Ur Specific Occidental Urine Protein Urine Glucose (UA) Urine Ketones Urine Blood Urine Nitrite Ur Leukocyte Esterase Urine RBC Urine WBC Ur Squamous Epith Cells Urine Bacteria Hyaline Casts IgG Total 731 IgG Subclass 1 470 IgG Subclass 2 174 L IgG Subclass 3 71 IgG Subclass 4 8.7 09/07/23 09/07/23 15:15 17:10 WBC RBC Hgb Hct MCV MCH MCHC RDW Plt Count MPV Immature Gran % (Auto) Neut % (Auto) Lymph % (Auto) Shoshone % (Auto) Eos % (Auto) Baso % (Auto) Lymph # (Auto) Shoshone # (Auto) Eos # (Auto) Baso # (Auto) Abs Immat Gran (auto) Absolute Neuts (auto) Absolute Nucleated RBC Nucleated RBC % (auto) Neutrophils % (Manual) Band Neutrophils % Lymphocytes % (Manual) Monocytes % (Manual) Abs Neuts (Manual) Lymphocytes # (Manual) Monocytes # (Manual) Nucleated RBCs Smudge Cells Toxic Vacuolation Dohle Bodies Platelet Estimate Plt Morphology Comment RBC Morphology Polychromasia Basophilic Stippling Macrocytosis Spherocytes Tawanna Cells PT 16.8 H INR 1.4 H aPTT Heparin Protocol 39.6 L Sodium Potassium Chloride Carbon Dioxide Anion Gap BUN Creatinine Estim Creat Clear Calc Estimated GFR Random Glucose Calcium Phosphorus Magnesium Total Bilirubin AST ALT Alkaline Phosphatase Total Protein Albumin Lipase Urine Color Yellow Urine Appearance Clear Urine pH >= 9.0 Ur Specific Occidental 1.025 Urine Protein 30 (1+) H Urine Glucose (UA) Negative Urine Ketones Negative Urine Blood Small (1+) H Urine Nitrite Negative Ur Leukocyte Esterase Negative Urine RBC 0-2 Urine WBC 0-5 Ur Squamous Epith Cells 0-2 Urine Bacteria None Seen Hyaline Casts 0-2 IgG Total IgG Subclass 1 IgG Subclass 2 IgG Subclass 3 IgG Subclass 4 Preliminary micro results at discharge 09/04/23 15:28 Blood Culture - Preliminary Blood - Venous No growth after 48 hours. 09/04/23 15:28 Blood Culture - Preliminary Blood - Venous No growth after 48 hours. Discharge Plan Discharge Anticipated Discharge Date/Time: 09/07/23 20:09 Patient Disposition: [facility] Discharge Diagnosis: Necrotizing pancreatitis Referrals: Ibeth Lassiter MD [Primary Care Provider] - 1 Week Discharge Medications: New heparin (porcine) 5,000 unit/mL Solution 6,300 unit IVPUSH PROTOCOL BOLUS PRN (Reason: 80 Unit/Kg - Heparin Protocol) Qty: 100 0RF heparin (porcine) 5,000 unit/mL Solution 3,100 unit IVPUSH PROTOCOL BOLUS PRN (Reason: 40 Unit/Kg - Heparin Protocol) Qty: 100 0RF hydromorphone 1 mg/mL Syringe 1 mg IVPUSH Q2H PRN (Reason: Pain, Moderate(Pain Scale 4-6)) Qty: 5 0RF Protocol: Hold for RR < HOLD and contact provider for RR < (bpm): 12 Rx Instructions: Partial Fill upon patient request. heparin(porcine) in 0.45% NaCl 25,000 unit/250 mL Parenteral Solution 25,000 unit continuous IV infusion .Q0M Qty: 100 0RF lactated Ringers Parenteral Solution 150 ml IV .per hour 2 Days Rx Instructions: until hemodynamically stable Discontinued hydroxyzine pamoate 50 mg capsule 50 mg PO Q6H PRN (Reason: anxiety) Discharge Orders: Discharge Order (Routine); Ordered 09/07/23 Ordered By: Raphael Apple Diet: NPO Activity on Discharge: bedrest Stand Alone Forms: Patient Portal Discharge page Print Language: Vietnamese Care Plan Goals: Continue heparin drip as ordered; transfer to tertiary care facility Health Concerns: As per receiving facility Plan of Treatment: As ordered Assessment: See discharge summary
[2023-09-07] MEDS: Lactated Ringers 1,000 ML 250 ML IVCONT (20:29)
--- NOTE | 2023-09-07 21:43 | PC.NURSE ---
Pt. drowsy but awake and conversant. Dr. Apple at bedside as pt to be transferred to [facility]. Pt. VVS at this time. Per Dr. Apple, hold Phenobarbitol prior to d/c ambulance ride. Per Dr. Apple Dilaudid ok to give-1mg IV push given at 2027 for 8/10 abd. pain. Stach up to 148 on campus monitor after ambulated from bathroom. Report to ambulance crew at 2029. Heparin drip at 14 units/kg/hr and IVF of LR at 250ml/hr.
[2023-09-10 10:34] LABS: Phosphatidylethanol 16:0-18:1 >400; Phosphatidylethanol 16:0-18:2 >400
== END 2023-09-07 20:30 | disposition short-term general hospital (02) | DRG 282 ==
LOC: HO.ED 09-04 04:59 → HO.EDOVER 09-04 06:38 → HO.ICU 09-04 16:50 → HO.IMC 09-07 14:11
PROVIDERS: Internal Medicine; Internal Medicine Pulmonary Disease; Physician Assistant; Physician Assistant Medical; Admitting Provider Internal Medicine; Emergency Provider Emergency Medicine; PCP Family Medicine; Visit Provider Student in an Organized Health Care Education/Training Program
DX: K85.21 Alcohol induced acute pancreatitis with uninfected necrosis (principal); J96.01 Acute respiratory failure with hypoxia; I81 Portal vein thrombosis; N17.9 Acute kidney failure, unspecified; F10.20 Alcohol dependence, uncomplicated; J81.0 Acute pulmonary edema; I82.890 Acute embolism and thrombosis of other specified veins; E87.6 Hypokalemia; Y90.6 Blood alcohol level of 120-199 mg/100 ml; E87.21 Acute metabolic acidosis; Z79.899 Other long term (current) drug therapy
CPT/HCPCS: 36415; 36600; 71045; 74177; 80048; 80053; 80061; 80307; 80321; 81001; 82010; 82330; 82784; 82803; 83036; 83605; 83690; 83735; 84100; 84443; 84702; 85007; 85025; 85027; 85610; 85730; 86140; 87040; 99285; C1758; J0131; J0613; J0692; J0737; J1170; J1644; J1650; J1885; J1940; J2270; J2405; J2560; J3010; J3475; J3480; J7120; P9047; Q9967

== ENCOUNTER → 2023-09-04 06:21 | Outpatient (BNV) | payer MEDICAID, SELFPAY | PROVIDERS: Admitting Provider Internal Medicine; Emergency Provider Emergency Medicine; PCP Family Medicine; Visit Provider Internal Medicine | DX: F10.10 Alcohol abuse, uncomplicated (principal); K85.90 Acute pancreatitis without necrosis or infection, unspecified | CPT/HCPCS: 99222 ==

== ENCOUNTER → 2023-09-04 06:21 | Outpatient (BNV) | payer MEDICAID, SELFPAY | PROVIDERS: Admitting Provider Internal Medicine; Emergency Provider Emergency Medicine; PCP Family Medicine; Visit Provider Internal Medicine | DX: K85.21 Alcohol induced acute pancreatitis with uninfected necrosis (principal); F10.10 Alcohol abuse, uncomplicated; N17.9 Acute kidney failure, unspecified | CPT/HCPCS: 99223; 99239; 99499 ==

== ENCOUNTER → 2023-09-04 06:21 | Outpatient (BNV) | payer MEDICAID, SELFPAY | PROVIDERS: Admitting Provider Internal Medicine; Emergency Provider Emergency Medicine; PCP Family Medicine; Visit Provider Internal Medicine Pulmonary Disease | DX: K85.20 Alcohol induced acute pancreatitis without necrosis or infection (principal); J96.01 Acute respiratory failure with hypoxia | CPT/HCPCS: 99233; 99291 ==

== ENCOUNTER → 2023-09-04 06:21 | Outpatient (BNV) | payer MEDICAID, SELFPAY | PROVIDERS: Admitting Provider Internal Medicine; Emergency Provider Emergency Medicine; PCP Family Medicine; Visit Provider Surgery | DX: K85.91 Acute pancreatitis with uninfected necrosis, unspecified (principal) | CPT/HCPCS: 99222 ==

== ENCOUNTER 2023-09-18 11:16 | Outpatient (REF) | payer MEDICAID, SELFPAY ==
[2023-09-18 14:28] LABS: MANUAL DIFF FLAG NO
[2023-09-18 14:40] LABS: Basophils Absolute Auto 0.1 X10*3/uL (0.0-0.2); Basophils Percent Auto 0.6 % (0-2); Eosinophils Absolute Auto 0.1 X10*3/uL (0.0-0.4); Eosinophils Percent Auto 1.6 % (0-4); Hematocrit 29.5 % (37.0-47.0); Imm Gran Abs Auto 0.09 X10*3/uL (0.00-0.03); Imm Gran Pct Auto 1.1 % (0.0-0.4); Lymphocytes Absolute Auto 1.8 X10*3/uL (1.2-4.9); Lymphocytes Percent Auto 21.3 % (20-40); Mean Corpuscular HGB Conc 30.5 g/dl (31.0-35.0); Mean Corpuscular Hemoglobin 29.1 pg (27.0-33.0); Mean Corpuscular Volume 95.5 fL (80.0-98.0); Mean Platelet Volume 11.7 fL (9.4-12.3); Monocytes Absolute Auto 0.6 X10*3/uL (0.1-1.2); Monocytes Percent Auto 6.9 % (2-11); Neutrophils Absolute Auto 5.7 x10*3/uL (2.0-8.3); Neutrophils Percent Auto 68.5 % (45-73); Platelet Count 466 X10*3/uL (160-400); Red Blood Count 3.09 X10*6/uL (4.20-5.50); Red Cell Distribution Width 18.6 % (11.0-16.0); White Blood Count 8.3 X10*3/uL (4.8-10.8)
[2023-09-18 14:57] LABS: Estimated Average Glucose 111 mg/dL; Hemoglobin A1c % 5.5 % (<6.0)
[2023-09-18 15:35] LABS: Alanine Aminotransferase 33 U/L (0-31); Albumin Level 3.5 g/dL (3.5-5.0); Alkaline Phosphatase 146 U/L (39-117); Anion Gap 13 (12-20); Aspartate Amino Transferase 40 U/L (5-31); Bilirubin Total 0.3 mg/dL (0.0-1.0); Blood Urea Nitrogen 3 mg/dL (9-16); C Reactive Protein 5.29 mg/dL (< or = 0.50); Calcium 8.8 mg/dL (8.4-10.2); Carbon Dioxide 22 mmol/L (22-29); Chloride 106 mmol/L (96-108); Estimated Glomerular Filt Rate > 60; Glucose Random 107 mg/dL (60-115); Potassium 3.7 mmol/L (3.3-5.1); Sodium 137 mmol/L (135-145); Total Protein 6.8 g/dL (6.5-8.0)
== END 2023-09-18 11:17 | disposition home or self-care (01) ==
LOC: HO.CHCLDS 11:16
PROVIDERS: Visit Provider Internal Medicine
DX: K85.90 Acute pancreatitis without necrosis or infection, unspecified (principal); R73.9 Hyperglycemia, unspecified
CPT/HCPCS: 36415; 80053; 83036; 85025; 86140

== ENCOUNTER 2023-10-18 01:07 | Emergency (ER) | payer MEDICAID, SELFPAY ==
--- NOTE | ~2023-10-18 | CT_ITS ---
EXAMINATION: CT ABDOMEN AND PELVIS WITH CONTRAST CLINICAL INFORMATION: Epigastric pain with history of necrotizing pancreatitis. COMPARISON: CT abdomen/pelvis just over 1 month ago on 09/07/2023 and 09/04/2023. TECHNIQUE: Multidetector volumetric images were obtained from the superior aspect of the liver through the pubic symphysis following administration 85 mL of Omnipaque 350 intravenous contrast. Sagittal and coronal reformatted images were obtained on the technologist's workstation. Oral contrast: No. This CT examination was performed using dose optimization techniques as appropriate, variously including the following: *Automated exposure control *Adjustment of mA and/or kV according to patient size (this includes techniques or standardized protocols for targeted exams where dose is matched to indication/reason for exam; i.e. extremities or head) *Use of iterative reconstruction technique DLP: 438 mGy-cm FINDINGS: LUNG BASES: The previously seen large bilateral pleural effusions and lower lobe atelectasis have resolved. LIVER, GALLBLADDER, AND BILIARY TREE: The liver is enlarged at 18.4 cm in cephalocaudad dimension with markedly decreased attenuation consistent with hepatic steatosis. No focal hepatic lesion or biliary ductal dilatation is present. The gallbladder is unremarkable with no evidence of radiopaque gallstones, gallbladder wall thickening, or obvious pericholecystic inflammatory changes. PANCREAS: A drainage catheter is in a pancreatic fluid collection measuring about 6.3 x 4.5 x 2.7 cm (see martínez images). Some peripancreatic inflammatory change is seen with some mild thickening of the anterior pararenal fascia on the left. When comparison is made to the prior study from 09/07/2023, at which time a catheter was not present, there had been a marked improvement in appearances at that time, the collection was significantly larger measuring at least 14.7 x 5.8 cm in transverse dimension, and hemorrhage was present with blood clot in the collection. A small area of hyperdensity remains in the collection, most likely residual resolving thrombus measuring 2.3 x 2.1 x 2.0 cm (3:24). A drainage catheter is in good position. The previously seen portal vein thrombus appears to have resolved. The splenic vein is attenuated but patent. SPLEEN: The spleen is enlarged at 12.4 cm. ADRENAL GLANDS: Unremarkable. KIDNEYS AND URETERS: The kidneys are normal in size, shape, and attenuation. There is a punctate calculus at the lower pole of the right kidney, unchanged from prior. No hydronephrosis, hydroureter, or additional calculi seen. No perinephric stranding. BLADDER: Unremarkable. GASTROINTESTINAL TRACT: The small and large bowel are unremarkable. The appendix is not seen, but there is no evidence of appendicitis. ABDOMINAL WALL: No significant hernia is appreciated. There is mild diastasis of the rectus muscles in the epigastrium with some mild forward bulging. LYMPH NODES: No retroperitoneal lymphadenopathy. VASCULAR: Please see discussion above regarding portal vein and splenic vein. The aorta and iliofemoral vessels appear normal as does the celiac, SMA and renal arteries. Both ovarian veins are mildly dilated without large pelvic varices. PELVIC VISCERA: The uterus and adnexa are unremarkable. OSSEOUS STRUCTURES: Unremarkable. CT/CT abdomen pelvis w IV con IMPRESSION: 1. Marked improvement in appearances with a drainage catheter in good position in the pancreatic fluid collection. There is a small area of hyperdensity within the collection, most likely residual resolving thrombus. 2. The previously seen portal vein thrombus appears to have resolved. 3. Enlarged fatty liver with mild splenomegaly. 4. Other incidental findings, as described above. Fleischner guidelines were followed.
[2023-10-18 01:36] VITALS: BP 113/72; PULSE 101; RESP 18; TEMP 36.9; O2SAT 98; BMI 22.7
[2023-10-18 02:10] LABS: MANUAL DIFF FLAG NO
[2023-10-18 02:11] LABS: Basophils Absolute Auto 0.1 X10*3/uL (0.0-0.2); Basophils Percent Auto 0.9 % (0-2); Eosinophils Percent Auto 0.3 % (0-4); Hematocrit 37.9 % (37.0-47.0); Hemoglobin 12.4 g/dl (12.0-16.0); Imm Gran Abs Auto 0.02 X10*3/uL (0.00-0.03); Imm Gran Pct Auto 0.3 % (0.0-0.4); Lymphocytes Absolute Auto 1.6 X10*3/uL (1.2-4.9); Mean Corpuscular HGB Conc 32.7 g/dl (31.0-35.0); Mean Corpuscular Hemoglobin 26.8 pg (27.0-33.0); Mean Platelet Volume 9.6 fL (9.4-12.3); Monocytes Absolute Auto 0.5 X10*3/uL (0.1-1.2); Monocytes Percent Auto 5.8 % (2-11); Neutrophils Absolute Auto 5.6 x10*3/uL (2.0-8.3); Neutrophils Percent Auto 71.7 % (45-73); Platelet Count 401 X10*3/uL (160-400); Red Blood Count 4.62 X10*6/uL (4.20-5.50); Red Cell Distribution Width 16.1 % (11.0-16.0); White Blood Count 7.7 X10*3/uL (4.8-10.8)
[2023-10-18 02:26] LABS: Alanine Aminotransferase 28 U/L (0-31); Albumin Level 4.3 g/dL (3.5-5.0); Alkaline Phosphatase 142 U/L (39-117); Anion Gap 17 (12-20); Aspartate Amino Transferase 39 U/L (5-31); Bilirubin Total 0.5 mg/dL (0.0-1.0); Blood Urea Nitrogen 4 mg/dL (9-16); Calcium 9.5 mg/dL (8.4-10.2); Carbon Dioxide 19 mmol/L (22-29); Chloride 106 mmol/L (96-108); Creatinine Clr Calc Pharmacy 111.3; Estimated Glomerular Filt Rate > 60; Glucose Random 121 mg/dL (60-115); Lipase 7 U/L (8-78); Potassium 3.1 mmol/L (3.3-5.1); Sodium 139 mmol/L (135-145); Total Protein 7.4 g/dL (6.5-8.0)
--- NOTE | 2023-10-18 05:39 | ED.ABDPAIN ---
HPI - Abdominal Pain General Chief Complaint: Abdominal Pain Stated Complaint: pancreatic pain Time Seen by Provider: 10/18/23 05:26 Source: patient Mode of arrival: ambulatory Limitations: no limitations History of Present Illness HPI narrative: Patient comes to the emergency room complaining of epigastric pain. Patient states that over last few days, the epigastric pain got worse. Patient was recently discharged from [facility] for necrotizing pancreatitis. Patient states that she has been unable to eat the pain, has lost 23 lb in 3 weeks. Patient also complaining of headache. Patient states that since she was diagnosed with pancreatitis, patient completely stop drinking alcohol. Related Data Previous Rx's ?Medication ?Instructions ?Recorded heparin (porcine) 25,000 unit/250 25,000 unit (250 mL) continuous IV 09/07/23 mL in 0.45 % sodium chloride IV infusion .Q0M #100 mL soln heparin (porcine) 5,000 unit/mL 3,100 unit (0.62 mL) IVPUSH 09/07/23 injection solution PROTOCOL BOLUS PRN 40 Unit/Kg - Heparin Protocol #100 mL heparin (porcine) 5,000 unit/mL 6,300 unit (1.26 mL) IVPUSH 09/07/23 injection solution PROTOCOL BOLUS PRN 80 Unit/Kg - Heparin Protocol #100 mL hydromorphone 1 mg/mL injection 1 mg IVPUSH Q2H PRN Pain, 09/07/23 syringe Moderate(Pain Scale 4-6) #5 mL lactated Ringers 150 ml IV .per hour 2 days 09/07/23 morphine 15 mg immediate release 15 mg PO Q6H PRN pain #14 tabs 10/18/23 tablet ondansetron 4 mg disintegrating 4 mg PO Q6H PRN nausea and 10/18/23 tablet vomiting #10 tabs Allergies Allergy/AdvReac Type Severity Reaction Status Date / Time No Known Allergies Allergy Verified 10/18/23 01:40 Review of Systems Review of Systems Constitutional : No Weight loss, No Fever, No Chills, No Night Sweats, No Fatigue, No Malaise ENT/Mouth : No Hearing loss, No Ear Pain, No Nasal Congestion, No Sinus Pain, No Hoarseness, No sore throat, No Rhinorrhea, No Swallowing Difficulty Eyes: No Eye Pain, No Swelling, No Redness, No Foreign Body, No Discharge, No Vision Changes Cardiovascular : No Chest Pain, No SOB, No Dyspnea on Exertion, No Orthopnea, No Edema, No Palpitations Respiratory : No Cough, No Sputum, No Wheezing, No Smoke Exposure, No Dyspnea Gastrointestinal : Complaining of Nausea, No Vomiting, No Diarrhea, No Constipation, complaining of epigastric pain Genitourinary : no irregular bleeding, No Dysuria, No Urinary Frequency, No Hematuria, No Urinary Incontinence, No Urgency, No Flank Pain, No Urinary Flow Changes, No Hesitancy Musculoskeletal : No joint pain, No Myalgias, No Joint Swelling Skin : No Skin Lesions, No rash Neuro : No Weakness, No Numbness, No Paresthesias, No Loss of Consciousness, No Dizziness, complaining of Headache Psych : No Anxiety/Panic, No Depression, No SI/HI/AH/VH, No Social Issues, Heme/Lymph: No Bruising, No Bleeding,No Lymphadenopathy Endocrine : No Polyuria, No Polydipsia, No Temperature Intolerance PMFSH Past Medical History Medical History Alcohol abuse Necrotizing pancreatitis Benign tumor of breast Alcohol abuse Asthma Anxiety Surgical History No history of previous surgery Social History Social History Household Members: Family Housing: House Do you presently have visiting nurse or other home services: No Alcohol intake: current Alcohol intake frequency: 3 or more drinks per day Alcohol type: hard liquor Patient Tobacco Use Status: Never used Tobacco Advance Directives: No Advance Directives Information Provided: No service: No Physical Exam ED Vital Signs: Vital Signs - 24 hr 10/18/23 01:36 10/18/23 06:01 10/18/23 08:17 Temperature 98.5 F 98.6 F 97.1 F Pulse Rate 101 H 77 68 Respiratory Rate 18 16 14 Blood Pressure 113/72 117/71 117/78 Pulse Oximetry 98 96 98 Oxygen Delivery Method Room Air Room Air Room Air 10/18/23 09:39 10/18/23 11:33 Temperature 97.1 F Pulse Rate 63 63 Respiratory Rate 18 18 Blood Pressure 115/85 115/85 Pulse Oximetry 97 97 Oxygen Delivery Method Room Air BMI result Body Mass Index 22.7 Const Other: Appearance: Alert. Oriented X3. No acute distress. Patient is in sick Eyes: Pupils equal, round and reactive to light. ENT: Pharynx normal. Neck: Normal inspection. Neck supple. No lymph nodes noted. No crepitus CVS: Normal heart rate and rhythm. Pulses normal. Normal S1 and S2 Respiratory: No respiratory distress. Breath sounds normal. No Wheezing. No rales Abdomen: Soft , complaining of epigastric pain to mild palpation. Patient has a drain Skin: Skin warm and dry. Still skin color. Normal skin turgor. Extremities: No lower extremity edema. No Lacerations. No Rash Neuro: Oriented X 3. No motor deficit. No sensory deficit. Moving all extremities. No slurred speech. CN 2 through 12 grossly intact Psych: calm, cooperative, normal affect Course Course Course Narrative: -CT scan pending Reevaluation(s) Reevaluation #1: The patient was signed out to me by the overnight physician pending the results of a CT scan of the abdomen and pelvis. She is a 28-year-old female with a history of alcoholic pancreatitis. Recently she had a severe episode of pancreatitis associated with necrosis and was transferred to [facility] where she had a drain placed by Interventional Radiology. She was discharged from [facility] 2 weeks ago on October 02. She has not had any follow up appointments since then and presented with epigastric pain. Her laboratory evaluation was quite unremarkable. She was treated for her symptoms and a CT was ordered. The CT scan does not show any acute or concerning findings. Overall the CT looks much better than previous CT prior to her transfer to [facility]. Given her unremarkable labs and her unremarkable CT results I do not feel the patient needs to be hospitalized today. I obtained records from [facility] and the patient was supposed to have an appointment with Dr. Scherer of [facility] 2 days ago on October 15. She missed this appointment. She says that she went to the wrong location. I spoke to Dr. Scherer who told me that he would not be the physician responsible for removing the patient is drainage tube. He told me that since the tube had been placed by the interventional radiologist Dr. Driss Cárdenas that would be Dr. Cárdenas who would remove the drain. According to the discharge summary from [facility] the tube should be removed when drainage is less than 10 mL per 24 hours. The patient estimates that she is currently putting out 40-50 mL per 24 hours. I will write a prescription for additional morphine tablets for the patient, also ondansetron. She should contact Dr. Cárdenas's office to make a follow up appointment as well as follow up with Dr. Scherer. She will probably need to follow up with her PCP at the [facility] for pain medication prescriptions however. Medical Decision Making Medical Decision Making [facility] Narrative: -my interpretation of labs: Normal hematology, chemistry shows a potassium of 3.1. Lipase within normal limits. -given patient's recent hospitalization for necrotizing pancreatitis and still has the drain, we will go ahead and order a CT scan. Patient agrees with plan. -patient receiving IV fluids, Zofran, morphine -CT scan pending. -I was informed by the patient and our CTs outdoor emergency care technician that the patient had a CT scan done 2 days ago. We will ask the radiologist's at [facility] for the radiology report for comparison CT scan pending, sign out given to my colleague Dr. Dove Differential Diagnosis Differential Diagnoses: The differential diagnosis associated with the presentation includes (Pancreatitis, SBO, gastritis, gastroenteritis) Admission/Observation Consideration of admission/observation: Escalation of care including admission/observation considered (Given patient's physical exam and recent past medical history, admission/observation considered.) Lab Data 10/18/23 02:06 10/18/23 02:06 Labs: Lab Results 10/18/23 Range/Units 02:06 WBC 7.7 (4.8-10.8) X10*3/uL RBC 4.62 D (4.20-5.50) X10*6/uL Hgb 12.4 D (12.0-16.0) g/dl Hct 37.9 D (37.0-47.0) % MCV 82.0 (80.0-98.0) fL MCH 26.8 L (27.0-33.0) pg MCHC 32.7 (31.0-35.0) g/dl RDW 16.1 H (11.0-16.0) % Plt Count 401 H (160-400) X10*3/uL MPV 9.6 (9.4-12.3) fL Immature Gran % (Auto) 0.3 (0.0-0.4) % Neut % (Auto) 71.7 (45-73) % Lymph % (Auto) 21.0 (20-40) % Dundy % (Auto) 5.8 (2-11) % Eos % (Auto) 0.3 (0-4) % Baso % (Auto) 0.9 (0-2) % Lymph # (Auto) 1.6 (1.2-4.9) X10*3/uL Dundy # (Auto) 0.5 (0.1-1.2) X10*3/uL Eos # (Auto) 0.0 (0.0-0.4) X10*3/uL Baso # (Auto) 0.1 (0.0-0.2) X10*3/uL Abs Immat Gran (auto) 0.02 (0.00-0.03) X10*3/uL Absolute Neuts (auto) 5.6 (2.0-8.3) x10*3/uL Absolute Nucleated RBC 0.000 (0.0-0.012) X10*3/uL Nucleated RBC % (auto) 0.0 (0.0-0.2) /100WBC Sodium 139 (135-145) mmol/L Potassium 3.1 L (3.3-5.1) mmol/L Chloride 106 (96-108) mmol/L Carbon Dioxide 19 L (22-29) mmol/L Anion Gap 17 (12-20) BUN 4 L (9-16) mg/dL Creatinine 0.65 (0.5-1.4) mg/dL Estim Creat Clear Calc 111.3 Estimated GFR > 60 Random Glucose 121 H (60-115) mg/dL Calcium 9.5 D (8.4-10.2) mg/dL Total Bilirubin 0.5 (0.0-1.0) mg/dL AST 39 H (5-31) U/L ALT 28 (0-31) U/L Alkaline Phosphatase 142 H (39-117) U/L C-Reactive Protein 0.19 (< or = 0.50) mg/dL Total Protein 7.4 (6.5-8.0) g/dL Albumin 4.3 (3.5-5.0) g/dL Lipase 7 L (8-78) U/L Medications Administered Discontinued Medications Generic Name Dose Route Start Last Admin Trade Name Freq PRN Reason Stop Dose Admin Diphenhydramine HCl 25 mg 10/18/23 08:11 10/18/23 09:27 Diphenhydramine Hcl 50 Mg/Ml Vial IVPUSH 10/18/23 08:12 25 mg ONCE ONE Administration Droperidol 1.25 mg 10/18/23 07:23 10/18/23 07:31 Droperidol 5 Mg/2 Ml Vial IVPUSH 10/18/23 07:24 1.25 mg ONCE ONE Administration Sodium Chloride 1,000 mls @ 999 mls/hr 10/18/23 05:37 10/18/23 09:06 Ns IVCONT 10/18/23 06:37 Infused .Q1H1M ONE Infusion Potassium Chloride 10 meq in 100 mls @ 100 mls/hr 10/18/23 06:00 10/18/23 09:26 Potassium Chloride/H20 IV 10/18/23 07:59 100 mls/hr Q1H TRUONG Administration Iohexol 85 ml 10/18/23 06:29 10/18/23 06:30 Iohexol 350 Mg/Ml 100 Ml Infus..Btl IV 10/18/23 06:30 85 ml ONCE ONE Administration Morphine Sulfate 4 mg 10/18/23 05:37 10/18/23 06:16 Morphine Sulfate 4 Mg/Ml Cartridge IVPUSH 10/18/23 05:38 4 mg ONCE ONE Administration Protocol Morphine Sulfate 4 mg 10/18/23 07:23 10/18/23 07:31 Morphine Sulfate 4 Mg/Ml Cartridge IVPUSH 10/18/23 07:24 4 mg ONCE ONE Administration Protocol Morphine Sulfate 4 mg 10/18/23 09:09 10/18/23 09:26 Morphine Sulfate 4 Mg/Ml Cartridge IVPUSH 10/18/23 09:10 4 mg ONCE ONE Administration Protocol Ondansetron HCl 4 mg 10/18/23 05:37 10/18/23 06:16 Ondansetron Hcl 4 Mg/2 Ml Vial IVPUSH 10/18/23 05:38 4 mg ONCE ONE Administration Critical Care Time Critical Care Time Critical Care Time: Yes Total Critical Care Time: 45 Attestation: I have personally provided critical care time. Time includes review of lab data, radiology results, discussion with consultants, and monitoring for potential decompensation. Intervention performed as documented. Discharge Plan Discharge Clinical Impression: Acute epigastric pain, History of pancreatitis Patient Disposition: Home, Self-Care Additional Instructions: Your testing in the emergency room today is reassuring. Things seemed to be looking good. Please contact Dr. Driss Cárdenas. He is an interventional radiologist at [facility]. He was the doctor who placed a drain in your pancreas. His office number is [phone]. I would recommend contacting his office to make a follow up appointment to review the status of your drain. Additionally you should contact the [facility] balance wheel arm burnisher Dr. Scherer (full name Kevin Scherer) [phone]. This is the doctor with whom you had an appointment 2 days ago. Please make sure you have an appointment with this specialist as well. Also contact your regular providers at the [facility] to make a follow up appointment. It will likely be the [facility] that arranges any ongoing pain control. Return to the emergency room if significantly worse. Prescriptions: New morphine 15 mg tablet 15 mg PO Q6H PRN (Reason: pain) Qty: 14 0RF Rx Instructions: Partial Fill upon patient request. ondansetron 4 mg tablet,disintegrating 4 mg PO Q6H PRN (Reason: nausea and vomiting) Qty: 10 0RF No Action heparin (porcine) 5,000 unit/mL Solution 6,300 unit IVPUSH PROTOCOL BOLUS PRN (Reason: 80 Unit/Kg - Heparin Protocol) Qty: 100 0RF heparin (porcine) 5,000 unit/mL Solution 3,100 unit IVPUSH PROTOCOL BOLUS PRN (Reason: 40 Unit/Kg - Heparin Protocol) Qty: 100 0RF hydromorphone 1 mg/mL Syringe 1 mg IVPUSH Q2H PRN (Reason: Pain, Moderate(Pain Scale 4-6)) Qty: 5 0RF Protocol: Hold for RR < HOLD and contact provider for RR < (bpm): 12 Rx Instructions: Partial Fill upon patient request. heparin(porcine) in 0.45% NaCl 25,000 unit/250 mL Parenteral Solution 25,000 unit continuous IV infusion .Q0M Qty: 100 0RF lactated Ringers Parenteral Solution 150 ml IV .per hour 2 Days Rx Instructions: until hemodynamically stable Referrals: [facility] [Provider Group] (Pain related to pancreatitis and pancreatic drain) DRISS CÁRDENAS [Physician] - (Pancreatic drain) Interventions: ED Discharge Assessment Last Done: 10/18/23 11:33 Discharge Date/Time: 10/18/23 11:34 Print Language: Georgian
[2023-10-18 06:01] VITALS: BP 117/71; PULSE 77; RESP 16; TEMP 37; O2SAT 96
[2023-10-18] MEDS: ondansetron HCL 4 MG/2 ML VIAL IVPUSH (06:16)
[2023-10-18] MEDS: Morphine Sulfate 4 MG/ML CARTRIDGE IVPUSH ×3 (06:16→09:26)
[2023-10-18] MEDS: 0.9 % Sodium Chloride 1,000 ML 999 ML IVCONT (06:17)
[2023-10-18] MEDS: iohexoL 350 MG/ML 100 ML INFUS..BTL 85 ML IV (06:30)
[2023-10-18] MEDS: Potassium Chloride/H20 10 MEQ/100 ML PIGGYBACK 100 MEQ IV ×2 (06:39→09:26)
[2023-10-18 07:21] LABS: C Reactive Protein 0.19 mg/dL (< or = 0.50)
[2023-10-18] MEDS: droPERidol 5 MG/2 ML VIAL 1.25 MG IVPUSH (07:31)
[2023-10-18 08:17] VITALS: BP 117/78; PULSE 68; RESP 14; TEMP 36.2; O2SAT 98
[2023-10-18] MEDS: diphenhydrAMINE HCL 50 MG/ML VIAL 25 MG IVPUSH (09:27)
--- NOTE | 2023-10-18 09:28 | PC.NURSE ---
Patient states she had a follow up with GI on the of this month, she showed up a few minutes and they would nt see her. She has an appointment scheduled for the end of the month. Patient placed on wash barrel leader for medication infusion
[2023-10-18 09:39] VITALS: BP 115/85; PULSE 63; RESP 18; O2SAT 97
[2023-10-18 11:33] VITALS: BP 115/85; PULSE 63; RESP 18; TEMP 36.2; O2SAT 97
== END 2023-10-18 11:34 | disposition home or self-care (01) ==
PROVIDERS: Emergency Medicine; Emergency Provider Emergency Medicine
DX: R10.13 Epigastric pain (principal); Z87.19 Personal history of other diseases of the digestive system
CPT/HCPCS: 36415; 74177; 80053; 83690; 85025; 86140; 96361; 96374; 96375; 96376; 99284; J1200; J1790; J2270; J2405; J3480; Q9967

== ENCOUNTER 2023-11-23 19:34 | Emergency (ER) | payer MEDICAID, SELFPAY ==
--- NOTE | ~2023-11-23 | CT_ITS ---
EXAMINATION: CT ABDOMEN AND PELVIS WITH CONTRAST CLINICAL INFORMATION: Abdominal pain after pancreatic drain removal. COMPARISON: CT abdomen/pelvis 10/18/2023. TECHNIQUE: Multidetector volumetric images were obtained from the superior aspect of the liver through the pubic symphysis following administration 85 mL of Omnipaque 350 intravenous contrast. Sagittal and coronal reformatted images were obtained on the technologist's workstation. Oral contrast: No This CT examination was performed using dose optimization techniques as appropriate, variously including the following: *Automated exposure control *Adjustment of mA and/or kV according to patient size (this includes techniques or standardized protocols for targeted exams where dose is matched to indication/reason for exam; i.e. extremities or head) *Use of iterative reconstruction technique DLP: 405 mGy-cm FINDINGS: LUNG BASES: The visualized lung bases are unremarkable. LIVER, GALLBLADDER, AND BILIARY TREE: Enlarged liver with decreased parenchymal attenuation consistent with hepatic steatosis. No focal liver lesion. No biliary ductal dilatation. The gallbladder is unremarkable with no evidence of radiopaque gallstones, gallbladder wall thickening, or obvious pericholecystic inflammatory changes. PANCREAS: Redemonstration of complex sequela of necrotizing pancreatitis with significant distortion of the pancreatic bed and multiple collections of [id number] with tethering and distortion of the adjacent stomach, small bowel and retroperitoneum as well as redemonstration of vascular occlusion of the splenic vein and luminal narrowing of the SMV. The size of the collections is slightly decreased compared to 10/18/2023, for example a 4.7 x 2.7 cm collection inferior to the pancreatic body/tail (3:25) previously 5.8 x 2.8 cm, and a more superiorly located 3.7 x 2.3 cm collection adjacent to the pancreatic tail in proximity to the stomach (3:20) previously 4.2 x 2.4 cm. SPLEEN: Upper limits of normal in size measuring 12 cm craniocaudally. ADRENAL GLANDS: Unremarkable. KIDNEYS AND URETERS: Punctate nonobstructive calculus in the lower right kidney. Symmetric nephrograms. Trace right greater than left hydroureteronephrosis. No perinephric fat stranding. BLADDER: Unremarkable. GASTROINTESTINAL TRACT: Wall thickening of the hepatic flexure, transverse and to a lesser extent descending colon with also hyperenhancement. Wall thickening of some loops of the small bowel in the left abdomen. No evidence of bowel obstruction. ABDOMINAL WALL: Anterior abdominal muscular diastases with protrusion of a nonobstructive loop of the small bowel. LYMPH NODES: Redemonstration of enlarged peripancreatic and upper retroperitoneal lymph nodes, most likely reactive in nature. Redemonstration of trace retroperitoneal fatty haziness extending to the pelvis and presacral space. VASCULAR: Slightly increased luminal narrowing of the SMV adjacent to the portosplenic confluence. 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 Evaluation of arterial vascular complications such as pseudoaneurysms, is very limited in the absence of an arterial phase. PELVIC VISCERA: Engorged, tortuous left adnexal vasculature with enlarged left ovarian vein. OSSEOUS STRUCTURES: No acute or aggressive appearing osseous findings. CT/CT abdomen pelvis w IV con IMPRESSION: 1. Redemonstration of complex sequela of necrotizing pancreatitis with regions of [id number]. The size of the collections is slightly decreased compared to 10/18/2023. There is however increased tethering upon the adjacent stomach and small bowel as well as increased luminal narrowing of the SMV adjacent to the portosplenic confluence which could indicate worsening fibrosis and scarring. 2. Nonspecific wall thickening and hyperenhancement of loops of small bowel in the left abdomen as well as colon. Recommend clinical correlation for enterocolitis, this could also be reactive in nature in the context of the complex pancreatic abnormalities. 3. Trace right greater than left hydroureteronephrosis. No evidence of obstructive renal calculi. 4. Hepatomegaly and hepatic steatosis. 5. Enlarged left gonadal veins and left adnexal vasculature suggestive of pelvic venous insufficiency.
[2023-11-23 19:40] VITALS: BP 130/84; PULSE 96; O2SAT 99
[2023-11-23 19:43] VITALS: BP 123/80; PULSE 96; RESP 18; TEMP 36.6; O2SAT 98; BMI 20.6
--- NOTE | 2023-11-23 19:55 | PC.NURSE ---
Pt ca&ox4, no signs of distress. Pt reports 8/10 abd pain Pt tender to light palpation in all 4 areas of abd Pt requested and given warm blanket Plan of care ongoing.
[2023-11-23 20:32] LABS: Basophils Percent Auto 0.4 % (0-2); Eosinophils Percent Auto 0.1 % (0-4); Hematocrit 34.3 % (37.0-47.0); Hemoglobin 11.4 g/dl (12.0-16.0); Imm Gran Abs Auto 0.01 X10*3/uL (0.00-0.03); Imm Gran Pct Auto 0.1 % (0.0-0.4); Lymphocytes Absolute Auto 1.2 X10*3/uL (1.2-4.9); Lymphocytes Percent Auto 16.5 % (20-40); MANUAL DIFF FLAG NO; Mean Corpuscular HGB Conc 33.2 g/dl (31.0-35.0); Mean Corpuscular Volume 78.1 fL (80.0-98.0); Monocytes Absolute Auto 0.4 X10*3/uL (0.1-1.2); Monocytes Percent Auto 5.3 % (2-11); Neutrophils Absolute Auto 5.5 x10*3/uL (2.0-8.3); Neutrophils Percent Auto 77.6 % (45-73); Platelet Count 315 X10*3/uL (160-400); Red Blood Count 4.39 X10*6/uL (4.20-5.50); White Blood Count 7.1 X10*3/uL (4.8-10.8)
[2023-11-23 20:55] LABS: Alanine Aminotransferase 19 U/L (0-31); Albumin Level 3.7 g/dL (3.5-5.0); Alkaline Phosphatase 156 U/L (39-117); Anion Gap 14 (12-20); Aspartate Amino Transferase 20 U/L (5-31); Bilirubin Total 0.3 mg/dL (0.0-1.0); Blood Urea Nitrogen 7 mg/dL (9-16); Calcium 9.6 mg/dL (8.4-10.2); Carbon Dioxide 21 mmol/L (22-29); Chloride 108 mmol/L (96-108); Creatinine Clr Calc Pharmacy 128.4; Estimated Glomerular Filt Rate > 60; Glucose Random 118 mg/dL (60-115); Magnesium 1.9 mg/dL (1.6-2.6); Potassium 3.6 mmol/L (3.3-5.1); Sodium 139 mmol/L (135-145); Total Protein 6.8 g/dL (6.5-8.0)
[2023-11-23 20:58] LABS: HCG Quantitative < 2 mIU/mL
[2023-11-23 21:08] LABS: Influenza A PCR NEGATIVE (Negative); Influenza B PCR NEGATIVE (Negative); Resp Syncy Virus RNA Qual PCR NEGATIVE (Negative); SARS COV2 PCR INHOUSE NEGATIVE (Negative)
--- NOTE | 2023-11-23 21:46 | ED_ITS ---
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 She had a drain for her pancreatic bed placed at [facility] several weeks ago. She had this drain removed at [facility] 4 days ago on Sunday. She says that she comes to the emergency room tonight because she has worsening abdominal pain. She has had some nausea and vomiting. She also says that she has run out of her usual morphine tablets. She has a another prescription waiting for her in the morning. She has not had a fever. Related Data Previous Rx's ?Medication ?Instructions ?Recorded heparin (porcine) 25,000 unit/250 25,000 unit (250 mL) continuous IV 09/07/23 mL in 0.45 % sodium chloride IV infusion .Q0M #100 mL soln heparin (porcine) 5,000 unit/mL 3,100 unit (0.62 mL) IVPUSH 09/07/23 injection solution PROTOCOL BOLUS PRN 40 Unit/Kg - Heparin Protocol #100 mL heparin (porcine) 5,000 unit/mL 6,300 unit (1.26 mL) IVPUSH 09/07/23 injection solution PROTOCOL BOLUS PRN 80 Unit/Kg - Heparin Protocol #100 mL hydromorphone 1 mg/mL injection 1 mg IVPUSH Q2H PRN Pain, 09/07/23 syringe Moderate(Pain Scale 4-6) #5 mL lactated Ringers 150 ml IV .per hour 2 days 09/07/23 morphine 15 mg immediate release 15 mg PO Q6H PRN pain #14 tabs 10/18/23 tablet ondansetron 4 mg disintegrating 4 mg PO Q6H PRN nausea and 10/18/23 tablet vomiting #10 tabs Allergies Allergy/AdvReac Type Severity Reaction Status Date / Time No Known Allergies Allergy Verified 11/23/23 19:46 Review of Systems 2 Review of Systems: Yes all other systems are reviewed and are negative PMFSH Past Medical History Medical History Alcohol abuse Necrotizing pancreatitis Benign tumor of breast Alcohol abuse Asthma Anxiety Surgical History No history of previous surgery Social History Social History Household Members: Family Housing: House Do you presently have visiting nurse or other home services: No Alcohol intake: current Alcohol intake frequency: does not drink Alcohol type: hard liquor Patient Tobacco Use Status: Never used Tobacco Smoked in Last 30 Days: No Use of substances other than those prescribed or required for medical reasons: No Advance Directives: No Advance Directives Information Provided: No Do you have a plan to hurt others: No Plan Patient : No service: No Physical Exam ED Vital Signs: Vital Signs - 24 hr 11/23/23 19:43 11/23/23 22:04 11/23/23 22:47 Temperature 97.9 F Pulse Rate 96 Respiratory Rate 18 12 12 Blood Pressure 123/80 Pulse Oximetry 98 Oxygen Delivery Method Room Air 11/23/23 22:50 11/24/23 00:31 11/24/23 00:37 Temperature 98.0 F Pulse Rate 94 Respiratory Rate 12 14 14 Blood Pressure 120/80 Pulse Oximetry 99 Oxygen Delivery Method Room Air BMI result Body Mass Index 20.6 Const Other: The patient is awake and alert. She states that she has in a great deal of distress although she does not look obviously toxic. HENMT Other: Face is symmetrical. Mucous membranes moist. Eyes Other: Pupils are round equal, conjunctivae clear, extraocular movements intact Neck Other: Moving her neck easily Resp Effort & Inspection: normal respiratory effort Auscultation: clear to auscultation bilaterally Cardio Rate: regular rate Rhythm: regular rhythm Heart sounds: S1 normal heart sound present and S2 normal heart sound present GI Other: The patient reports pain with tenderness of the upper abdomen. Lower abdomen seems soft and nontender. Skin Other: Skin is dry and unremarkable Neuro Other: The patient is awake and alert with a normal mental status. Cranial nerves are grossly intact. She moves her extremities normally. She is grossly neurologically intact. Extrem Other: No peripheral edema Medications Administered Discontinued Medications Generic Name Dose Route Start Last Admin Trade Name Freq PRN Reason Stop Dose Admin Droperidol 1.25 mg 11/23/23 21:52 11/23/23 22:01 Droperidol 5 Mg/2 Ml Vial IVPUSH 11/23/23 21:53 1.25 mg ONCE ONE Administration Sodium Chloride 1,000 mls @ 999 mls/hr 11/23/23 22:00 11/24/23 00:34 Ns IV 11/23/23 23:00 Infused .Q1H1M TRUONG Infusion Iohexol 85 ml 11/23/23 23:00 11/23/23 23:00 Iohexol 350 Mg/Ml 100 Ml Infus..Btl IV 11/23/23 23:01 85 ml ONCE ONE Administration Morphine Sulfate 8 mg 11/23/23 21:52 11/23/23 22:04 Morphine Sulfate 10 Mg/Ml Cartridge IVPUSH 11/23/23 21:53 8 mg ONCE ONE Administration Protocol Morphine Sulfate 8 mg 11/23/23 22:40 11/23/23 22:47 Morphine Sulfate 10 Mg/Ml Cartridge IVPUSH 11/23/23 22:41 8 mg ONCE ONE Administration Protocol Morphine Sulfate 45 mg 11/23/23 23:57 11/24/23 00:29 Morphine Sulfate Immed Release 15 Mg Tablet PO 11/23/23 23:58 45 mg ONCE ONE Administration Medical Decision Making Medical Decision Making MDM Narrative: The patient is a 28-year-old who recently had a case of very complex pancreatitis and was transferred to [facility] where she had a pancreatic drain placed by [facility]. She has a drain in place for several weeks. The drain was removed 4 days ago on Sunday by Dr. Saravia of [facility] at [facility]. She presents to the emergency room today stating that she has had worsening upper abdominal pain over the last couple of days associated with nausea. She had also reported to nursing that she had been out of her pain medications for a few days. According to the PDMP her last prescriptions for oral morphine should have gotten her through yesterday. Apparently she has a prescription waiting for her tomorrow. She was given IV morphine and droperidol for pain as well as IV fluids. Her labs show a normal lipase. She does not have an elevation of her white blood count. She has a mildly elevated CRP. Who was difficult for me to determine whether the patient was here primarily for pain control as she has run out of her pain medications or whether she might actually have an acute worsening of an intra-abdominal process. The patient was treated symptomatically initially. My only medical concern based on her labs was her rise and CRP. When I spoke to the patient after she received 8 mg of IV morphine she said that she was still having significant pain and that she was not here simply because she would run out of her oral morphine. We discussed whether a repeat CT scan should be done and she expressed her desire to have the repeat CT scan done. Three-view CT scan shows a lot of chronic problems related to her pancreatitis but no definite acute complication. I therefore think she is appropriate for discharge. She should follow up with the regular doctor. She is also advised to follow up again with Dr. Scherer the [facility] caustics loader she has already followed up with. Lab Data 11/23/23 20:27 11/23/23 20:27 Labs: Lab Results 11/23/23 11/23/23 Range/Units 20:27 23:52 WBC 7.1 (4.8-10.8) X10*3/uL RBC 4.39 (4.20-5.50) X10*6/uL Hgb 11.4 L (12.0-16.0) g/dl Hct 34.3 L (37.0-47.0) % MCV 78.1 L (80.0-98.0) fL MCH 26.0 L (27.0-33.0) pg MCHC 33.2 (31.0-35.0) g/dl RDW 16.0 (11.0-16.0) % Plt Count 315 (160-400) X10*3/uL MPV 10.0 (9.4-12.3) fL Immature Gran % (Auto) 0.1 (0.0-0.4) % Neut % (Auto) 77.6 H (45-73) % Lymph % (Auto) 16.5 L (20-40) % [place] % (Auto) 5.3 (2-11) % Eos % (Auto) 0.1 (0-4) % Baso % (Auto) 0.4 (0-2) % Lymph # (Auto) 1.2 (1.2-4.9) X10*3/uL [place] # (Auto) 0.4 (0.1-1.2) X10*3/uL Eos # (Auto) 0.0 (0.0-0.4) X10*3/uL Baso # (Auto) 0.0 (0.0-0.2) X10*3/uL Abs Immat Gran (auto) 0.01 (0.00-0.03) X10*3/uL Absolute Neuts (auto) 5.5 (2.0-8.3) x10*3/uL Absolute Nucleated RBC 0.000 (0.0-0.012) X10*3/uL Nucleated RBC % (auto) 0.0 (0.0-0.2) /100WBC Sodium 139 (135-145) mmol/L Potassium 3.6 (3.3-5.1) mmol/L Chloride 108 (96-108) mmol/L Carbon Dioxide 21 L (22-29) mmol/L Anion Gap 14 (12-20) BUN 7 L (9-16) mg/dL Creatinine 0.56 (0.5-1.4) mg/dL Estim Creat Clear Calc 128.4 Estimated GFR > 60 Random Glucose 118 H (60-115) mg/dL Calcium 9.6 (8.4-10.2) mg/dL Magnesium 1.9 (1.6-2.6) mg/dL Total Bilirubin 0.3 (0.0-1.0) mg/dL AST 20 (5-31) U/L ALT 19 (0-31) U/L Alkaline Phosphatase 156 H (39-117) U/L C-Reactive Protein 7.00 H (< or = 0.50) mg/dL Total Protein 6.8 (6.5-8.0) g/dL Albumin 3.7 (3.5-5.0) g/dL Lipase 10 (8-78) U/L Beta HCG, Quant < 2 mIU/mL Urine Color Yellow Urine Appearance Clear Urine pH 7.0 (5.0-9.0) Ur Specific [place] >= 1.030 H (1.005-1.025) Urine Protein Negative (Neg-Trace) mg/dL Urine Glucose (UA) Negative (Negative) mg/dL Urine Ketones Negative (Negative) mg/dL Urine Blood Negative (Negative) Urine Nitrite Negative (Negative) Ur Leukocyte Esterase Negative (Negative) Ethyl Alcohol < 10 mg/dL Influenza Type A (PCR) NEGATIVE (Negative) Influenza Type B (PCR) NEGATIVE (Negative) RSV RNA Qual (PCR) NEGATIVE (Negative) SARS-CoV-2 RNA (RT-PCR) NEGATIVE (Negative) Discharge Plan Discharge Clinical Impression: Abdominal pain, Chronic pancreatitis Patient Disposition: Home, Self-Care Additional Instructions: Please coal picker your new prescription for morphine tablets this morning. Stay in touch with your primary care doctor. Also plan on following up with the caustics loader who his senior previously. I believe this is Dr. Kevin Scherer of [facility]. Phone number [phone]. We have updated your CT scan images to the [facility] system so the [facility] doctor should be able to see the CT scan as well. If significantly worse you should get checked again. Given the complexity of your case and the previous management at [facility] it might be frances to go to [facility] if you feel significantly worse. In any event you should get checked again if worse. Prescriptions: No Action heparin (porcine) 5,000 unit/mL Solution 6,300 unit IVPUSH PROTOCOL BOLUS PRN (Reason: 80 Unit/Kg - Heparin Protocol) Qty: 100 0RF heparin (porcine) 5,000 unit/mL Solution 3,100 unit IVPUSH PROTOCOL BOLUS PRN (Reason: 40 Unit/Kg - Heparin Protocol) Qty: 100 0RF hydromorphone 1 mg/mL Syringe 1 mg IVPUSH Q2H PRN (Reason: Pain, Moderate(Pain Scale 4-6)) Qty: 5 0RF Protocol: Hold for RR < HOLD and contact provider for RR < (bpm): 12 Rx Instructions: Partial Fill upon patient request. heparin(porcine) in 0.45% NaCl 25,000 unit/250 mL Parenteral Solution 25,000 unit continuous IV infusion .Q0M Qty: 100 0RF lactated Ringers Parenteral Solution 150 ml IV .per hour 2 Days Rx Instructions: until hemodynamically stable morphine 15 mg tablet 15 mg PO Q6H PRN (Reason: pain) Qty: 14 0RF Rx Instructions: Partial Fill upon patient request. ondansetron 4 mg tablet,disintegrating 4 mg PO Q6H PRN (Reason: nausea and vomiting) Qty: 10 0RF Referrals: Kevin Scherer [Other] Ibeth Lassiter MD [Primary Care Provider] - (pancreatitis follow-up) Interventions: ED Discharge Assessment Last Done: 11/24/23 00:37 Discharge Date/Time: 11/24/23 00:41 Print Language: Guamanian
[2023-11-23] MEDS: droPERidol 5 MG/2 ML VIAL 1.25 MG IVPUSH (22:01)
[2023-11-23 22:04] VITALS: RESP 12
[2023-11-23] MEDS: Morphine Sulfate 10 MG/ML CARTRIDGE 8 MG IVPUSH ×2 (22:04→22:47)
[2023-11-23] MEDS: 0.9 % Sodium Chloride 1,000 ML 999 ML IV (22:05)
[2023-11-23 22:09] LABS: Ethanol < 10 mg/dL; Lipase 10 U/L (8-78)
--- NOTE | 2023-11-23 22:11 | PC.NURSE ---
Pt medicated per aug. Plan of care ongoing.
[2023-11-23 22:47] VITALS: RESP 12
[2023-11-23 22:50] VITALS: RESP 12
--- NOTE | 2023-11-23 22:50 | PC.NURSE ---
Pt medicated per aug. Pt with CT Plan of care ongoing.
[2023-11-23] MEDS: iohexoL 350 MG/ML 100 ML INFUS..BTL 85 ML IV (23:00)
--- NOTE | 2023-11-23 23:03 | PC.NURSE ---
Pt back from CT. Plan of care ongoing.
--- NOTE | 2023-11-23 23:41 | PC.NURSE ---
Pt ambulated to restroom with a steady gait. Pts IV bleeding at tubing. Pts IV cleaned and new transparent dressing placed. Plan of care ongoing.
--- NOTE | 2023-11-23 23:54 | PC.NURSE ---
UA collected and sent.
[2023-11-23 23:57] LABS: Appearance Urine Clear; Color Urine Yellow; Glucose Urine UA Negative (Negative); Leukocyte Esterase Urine Negative (Negative); Nitrite Urine Negative (Negative); Specific Gravity - Urine >= 1.030 (1.005-1.025); Urine Blood Negative (Negative); Urine Ketones Negative (Negative); Urine Protein Negative (Neg-Trace)
[2023-11-24] MEDS: Morphine Sulfate Immed Release 15 MG TABLET 45 MG PO (00:29)
[2023-11-24 00:31] VITALS: RESP 14
--- NOTE | 2023-11-24 00:34 | PC.NURSE ---
Pt medicated per aug. Pt advised not to drive or handle any machinery. Plan of care ongoing.
[2023-11-24 00:37] VITALS: BP 120/80; PULSE 94; RESP 14; TEMP 36.7; O2SAT 99
== END 2023-11-24 00:41 | disposition home or self-care (01) ==
PROVIDERS: Physician Assistant Medical; Emergency Provider Emergency Medicine; PCP Family Medicine
DX: K86.1 Other chronic pancreatitis (principal); R11.2 Nausea with vomiting, unspecified; R10.9 Unspecified abdominal pain; Z03.818 Encounter for observation for suspected exposure to other biological agents ruled out; Z79.899 Other long term (current) drug therapy
CPT/HCPCS: 0241U; 74177; 80053; 80307; 81003; 83690; 83735; 84702; 85025; 86140; 96361; 96374; 96375; 96376; 99284; 99285; J1790; J2270; Q9967

== ENCOUNTER 2023-12-29 09:03 | Emergency (ER) | payer MEDICAID, SELFPAY ==
--- NOTE | ~2023-12-29 | CT_ITS ---
EXAMINATION: CT ABDOMEN AND PELVIS WITH CONTRAST CLINICAL INFORMATION: Pain. Nausea and vomiting. History of necrotizing pancreatitis. COMPARISON: CT abdomen pelvis November 23, 2023 TECHNIQUE: Multidetector volumetric images were obtained from the superior aspect of the liver through the pubic symphysis following administration 85 mL of Omnipaque 350 intravenous contrast. Sagittal and coronal reformatted images were obtained on the technologist's workstation. Oral contrast: No This CT examination was performed using dose optimization techniques as appropriate, variously including the following: *Automated exposure control *Adjustment of mA and/or kV according to patient size (this includes techniques or standardized protocols for targeted exams where dose is matched to indication/reason for exam; i.e. extremities or head) *Use of iterative reconstruction technique DLP: 389 mGy-cm FINDINGS: Visualized lung bases demonstrate minimal dependent atelectasis. The liver is enlarged and demonstrates diffusely decreased attenuation. The gallbladder is normal in appearance. A well demarcated pancreas is not identified. There does appear to be some atrophic pancreatic tissue of the pancreatic head and proximal body. Previously present multiple pancreatic fluid collections demonstrate significant interval decrease in size although a few tiny pancreatic fluid pockets persist. Mild peripancreatic stranding is chronic appearing. Similar splenic enlargement. The splenic vein is again suspected to be occluded. Symmetrically enhancing kidneys without hydronephrosis. A few small nonobstructing right renal calculi are again noted. The adrenal glands are unremarkable. The stomach is decompressed and therefore not accurately evaluated. Normal caliber loops of small and large bowel. There remains some mild circumferential wall thickening of the left: Which is nonspecific but suspected to be reactive in nature. Normal caliber abdominal aorta. Dilated refluxing left ovarian vein is again noted with associated periuterine varices. The bladder demonstrates normal distention. Unremarkable CT appearance of the uterus. Trace amount of free pelvic fluid, often times physiologic. No gross free pelvic fluid. No inguinal lymphadenopathy. No acute osseous abnormality. CT/CT abdomen pelvis w IV con IMPRESSION: 1. Previously present multiple pancreatic fluid collections demonstrate significant interval decrease in size although a few tiny pancreatic fluid pockets persist. Mild peripancreatic stranding is chronic appearing. The pancreas is overall atrophic. 2. Hepatosplenomegaly with diffusely decreased liver attenuation suggesting hepatic steatosis. Correlation with liver enzymes recommended. 3. Nonobstructing right renal calculi. No hydronephrosis. 4. Dilated refluxing left ovarian vein with associated periuterine varices. 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 Fleischner guidelines were followed.
[2023-12-29 09:10] VITALS: BP 110/79; PULSE 93; RESP 18; TEMP 36.3; O2SAT 100; BMI 20.6
--- NOTE | 2023-12-29 09:27 | ECG_ITS ---
Test Reason : ABD PAIN Blood Pressure : / mmHG Vent. Rate : 085 BPM Atrial Rate : 085 BPM P-R Int : 134 ms QRS Dur : 080 ms QT Int : 392 ms P-R-T Axes : 053 067 -01 degrees QTc Int : 466 ms Normal sinus rhythm Nonspecific T wave abnormality Prolonged QT Abnormal ECG When compared with ECG of 27-AUG-2023 09:18, No significant change was found Referred By: Ashley Mark Electronically Signed By:ROSIO BURTON
--- NOTE | 2023-12-29 09:43 | ED.ABDPAIN ---
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 She has been followed by [facility] with her gastroenterology to, in the past she has had a drain interventional radiology which was subsequently removed. She reports that she has been compliant with her oral morphine IR, she takes 30-45 mg by mouth 3 times daily as needed, but states she typically only needs to take it 1 or 2 times a day. She has been experienced a significant decrease in appetite, nausea and vomiting as well as oily diarrhea. Denies alcohol consumption states she has not drank since she was ?diagnosed?. She was most recently seen in this emergency department 11/23/2023 for worsening pain nausea vomiting and had ran out of her morphine tablets, her workup was overall unremarkable when compared to her baseline labs and CT imaging, she was recommended to follow-up with [facility] gastroenterology; Dr. Scherer Related Data Previous Rx's ?Medication ?Instructions ?Recorded heparin (porcine) 25,000 unit/250 25,000 unit (250 mL) continuous IV 09/07/23 mL in 0.45 % sodium chloride IV infusion .Q0M #100 mL soln heparin (porcine) 5,000 unit/mL 3,100 unit (0.62 mL) IVPUSH 09/07/23 injection solution PROTOCOL BOLUS PRN 40 Unit/Kg - Heparin Protocol #100 mL heparin (porcine) 5,000 unit/mL 6,300 unit (1.26 mL) IVPUSH 09/07/23 injection solution PROTOCOL BOLUS PRN 80 Unit/Kg - Heparin Protocol #100 mL hydromorphone 1 mg/mL injection 1 mg IVPUSH Q2H PRN Pain, 09/07/23 syringe Moderate(Pain Scale 4-6) #5 mL lactated Ringers 150 ml IV .per hour 2 days 09/07/23 morphine 15 mg immediate release 15 mg PO Q6H PRN pain #14 tabs 10/18/23 tablet ondansetron 4 mg disintegrating 4 mg PO Q6H PRN nausea and 10/18/23 tablet vomiting #10 tabs Allergies Allergy/AdvReac Type Severity Reaction Status Date / Time No Known Allergies Allergy Verified 12/29/23 09:12 Review of Systems Review of Systems Yes all other systems are reviewed and are negative [facility] Past Medical History Attestation statement: The following information was validated with the patient. Source: old records reviewed Medical History Alcohol abuse Necrotizing pancreatitis Benign tumor of breast Alcohol abuse Asthma Anxiety Surgical History No history of previous surgery Social History Social History Household Members: Family Housing: House Do you presently have visiting nurse or other home services: No Alcohol intake: former Patient Tobacco Use Status: Never used Tobacco Smoked in Last 30 Days: No Use of substances other than those prescribed or required for medical reasons: Yes Substance Use Type: Marijuana Substance Use Frequency: Daily Any prior treatment program specific to substance use: No Advance Directives: No Do you have a plan to hurt others: No Plan Patient : No service: No Physical Exam ED Vital Signs: Vital Signs - 24 hr 12/29/23 09:10 12/29/23 10:29 12/29/23 12:26 Temperature 97.4 F 97.6 F 97.7 F Pulse Rate 93 74 64 Respiratory Rate 18 18 16 Blood Pressure 110/79 119/78 106/65 Pulse Oximetry 100 98 99 Oxygen Delivery Method Room Air Room Air Room Air BMI result Body Mass Index 20.6 Course Reevaluation(s) Reevaluation #1: CT of the abdomen and pelvis reveals significant interval decrease of the previously seen pancreatic fluid collections, mild peripancreatic stranding remains that appears chronic. Her CBC is without leukocytosis, she has a mild microcytic anemia that does not meet transfusion criteria, no thrombocytopenia. No electrolyte derangement, no KIAN, LFTs are at baseline, CRP is normal, lipase within normal range. Urinalysis without evidence of infection and hCG is negative. Viral panel is negative. At this time feel that she is appropriate for discharge, I recommend that she have close outpatient follow-up particularly with her outside contractor sales through [facility], advised her to continue taking her oral morphine tablets. Time: 12:04 Medical Decision Making Medical Decision Making MDM Narrative: Patient is a 28-year-old female with past medical history of complex pancreatitis, history of cyst with subsequent pancreatic drain and removal in November of 2023. She presents today for reported progressive worsening of her pain, poor appetite, nausea vomiting and oily diarrhea as per HPI. She appears uncomfortable on examination, however her abdomen is soft, there is no rigidity or guarding, tenderness is primarily to the upper abdomen. Will obtain CBC to evaluate for leukocytosis/ anemia, CMP and lipase to evaluate for abnormal electrolytes /abnormal renal function/ abnormal hepatic/biliary function, CT of the abdomen and pelvis, hCG, and Urinalysis. On review of her [employer] she most recently received a prescription for morphine sulfate IR tablets on 12/18/2023 for a 14 day supply, this should cover her until 01/01/2024 and she reports that she does have remaining tablets at home Differential Diagnosis Differential Diagnoses: The differential diagnosis associated with the presentation includes Pancreatitis, pancreatic cyst, gastroenteritis, cholecystitis, viral syndrome Admission/Observation Consideration of admission/observation: Escalation of care including admission/observation considered Lab Data MDM Lab Attestation statement: I reviewed the patient's lab results. 12/29/23 09:43 12/29/23 09:43 Labs: Lab Results 12/29/23 Range/Units 09:43 WBC 6.2 (4.8-10.8) X10*3/uL RBC 4.35 (4.20-5.50) X10*6/uL Hgb 10.6 L (12.0-16.0) g/dl Hct 33.4 L (37.0-47.0) % MCV 76.8 L (80.0-98.0) fL MCH 24.4 L (27.0-33.0) pg MCHC 31.7 (31.0-35.0) g/dl RDW 15.3 (11.0-16.0) % Plt Count 234 D (160-400) X10*3/uL MPV 10.5 (9.4-12.3) fL Immature Gran % (Auto) 0.2 (0.0-0.4) % Neut % (Auto) 72.1 (45-73) % Lymph % (Auto) 20.9 (20-40) % George % (Auto) 5.8 (2-11) % Eos % (Auto) 0.5 (0-4) % Baso % (Auto) 0.5 (0-2) % Lymph # (Auto) 1.3 (1.2-4.9) X10*3/uL George # (Auto) 0.4 (0.1-1.2) X10*3/uL Eos # (Auto) 0.0 (0.0-0.4) X10*3/uL Baso # (Auto) 0.0 (0.0-0.2) X10*3/uL Abs Immat Gran (auto) 0.01 (0.00-0.03) X10*3/uL Absolute Neuts (auto) 4.5 (2.0-8.3) x10*3/uL Absolute Nucleated RBC 0.000 (0.0-0.012) X10*3/uL Nucleated RBC % (auto) 0.0 (0.0-0.2) /100WBC PT 15.5 H (11.1-13.3) SEC INR 1.3 H (0.9-1.1) Sodium 140 (135-145) mmol/L Potassium 4.0 (3.3-5.1) mmol/L Chloride 109 H (96-108) mmol/L Carbon Dioxide 19 L (22-29) mmol/L Anion Gap 16 (12-20) BUN 5 L (9-16) mg/dL Creatinine 0.66 (0.5-1.4) mg/dL Estim Creat Clear Calc 109.1 Estimated GFR > 60 Random Glucose 119 H (60-115) mg/dL Calcium 9.5 (8.4-10.2) mg/dL Magnesium 1.9 (1.6-2.6) mg/dL Total Bilirubin 0.3 (0.0-1.0) mg/dL AST 33 H (5-31) U/L ALT 26 (0-31) U/L Alkaline Phosphatase 128 H (39-117) U/L C-Reactive Protein 0.26 (< or = 0.50) mg/dL Total Protein 7.0 (6.5-8.0) g/dL Albumin 4.0 (3.5-5.0) g/dL Lipase 11 (8-78) U/L Urine Color Yellow Urine Appearance Cloudy Urine pH 7.0 (5.0-9.0) Ur Specific [place] 1.025 (1.005-1.025) Urine Protein Trace (Neg-Trace) mg/dL Urine Glucose (UA) Negative (Negative) mg/dL Urine Ketones Negative (Negative) mg/dL Urine Blood Negative (Negative) Urine Nitrite Negative (Negative) Ur Leukocyte Esterase Negative (Negative) Urine Test NEGATIVE (NEGATIVE) Influenza Type A (PCR) NEGATIVE (Negative) Influenza Type B (PCR) NEGATIVE (Negative) RSV RNA Qual (PCR) NEGATIVE (Negative) SARS-CoV-2 RNA (RT-PCR) NEGATIVE (Negative) Radiology Impression Discussion of test interpretation with radiology: I have reviewed the radiologist's reading. Radiologist Impression: CT/CT abdomen pelvis w IV con IMPRESSION: 1. Previously present multiple pancreatic fluid collections demonstrate significant interval decrease in size although a few tiny pancreatic fluid pockets persist. Mild peripancreatic stranding is chronic appearing. The pancreas is overall atrophic. 2. Hepatosplenomegaly with diffusely decreased liver attenuation suggesting hepatic steatosis. Correlation with liver enzymes recommended. 3. Nonobstructing right renal calculi. No hydronephrosis. 4. Dilated refluxing left ovarian vein with associated periuterine varices. 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 External Record Review External record reviewed: Outpatient record and Other ([employer] see narrative above) Prescription Management I considered prescription management with: Pain Medication (Chronically prescribed) Chronic Conditions Patient?s care impacted by: Other (Chronic pancreatitis) Medications Administered Discontinued Medications Generic Name Dose Route Start Last Admin Trade Name Freq PRN Reason Stop Dose Admin Droperidol 1.25 mg 12/29/23 09:27 12/29/23 09:48 Droperidol 5 Mg/2 Ml Vial IVPUSH 12/29/23 09:28 1.25 mg ONCE ONE Administration Sodium Chloride 1,000 mls @ 999 mls/hr 12/29/23 09:45 12/29/23 11:15 Ns IV 12/29/23 10:45 Infused .Q1H1M TRUONG Infusion Iohexol 100 ml 12/29/23 10:42 12/29/23 10:42 Iohexol 350 Mg/Ml 100 Ml Infus..Btl IV 12/29/23 10:43 85 ml ONCE ONE Administration Morphine Sulfate 4 mg 12/29/23 09:27 12/29/23 09:48 Morphine Sulfate 4 Mg/Ml Cartridge IVPUSH 12/29/23 09:28 4 mg ONCE ONE Administration Protocol Morphine Sulfate 4 mg 12/29/23 10:36 12/29/23 11:05 Morphine Sulfate 4 Mg/Ml Cartridge IVPUSH 12/29/23 10:37 4 mg ONCE ONE Administration Protocol Critical Care Time Critical Care Time Critical Care Time: Yes Total Critical Care Time: 35 Attestation: I personally attest to this critical care time spent taking care of the patient exclusive of all other billable procedures was approximately 35 minutes including initial evaluation of patient, ordering tests, IV morphine and re-evaluation, medical consultation, documentation, re-evaluation. Discharge Plan Discharge Clinical Impression: Chronic pancreatitis Patient Disposition: Home, Self-Care Instructions: Pancreatitis (ED) Additional Instructions: It is recommended that you continue taking your oral morphine as prescribed from your doctor. Have close outpatient follow-up with your primary care doctor, also advised that you contact your outside contractor sales in [facility], Dr. Scherer 1st thing next week for follow-up. Your CT scan today shows significant improvement when compared to your prior imaging from last month. If you feel as though your symptoms continue to become worse or you have any new or worsening symptoms or concerns you may all way return to the emergency department at your discretion for evaluation. However given the complexity of your history and your specialist being at [facility] it may be frances to seek evaluation there. Prescriptions: No Action heparin (porcine) 5,000 unit/mL Solution 6,300 unit IVPUSH PROTOCOL BOLUS PRN (Reason: 80 Unit/Kg - Heparin Protocol) Qty: 100 0RF heparin (porcine) 5,000 unit/mL Solution 3,100 unit IVPUSH PROTOCOL BOLUS PRN (Reason: 40 Unit/Kg - Heparin Protocol) Qty: 100 0RF hydromorphone 1 mg/mL Syringe 1 mg IVPUSH Q2H PRN (Reason: Pain, Moderate(Pain Scale 4-6)) Qty: 5 0RF Protocol: Hold for RR < HOLD and contact provider for RR < (bpm): 12 Rx Instructions: Partial Fill upon patient request. heparin(porcine) in 0.45% NaCl 25,000 unit/250 mL Parenteral Solution 25,000 unit continuous IV infusion .Q0M Qty: 100 0RF lactated Ringers Parenteral Solution 150 ml IV .per hour 2 Days Rx Instructions: until hemodynamically stable morphine 15 mg tablet 15 mg PO Q6H PRN (Reason: pain) Qty: 14 0RF Rx Instructions: Partial Fill upon patient request. ondansetron 4 mg tablet,disintegrating 4 mg PO Q6H PRN (Reason: nausea and vomiting) Qty: 10 0RF Referrals: Ibeth Lassiter MD [Primary Care Provider] - Interventions: ED Discharge Assessment Last Done: 12/29/23 12:26 Discharge Date/Time: 12/29/23 12:27 Print Language: Welsh
[2023-12-29] MEDS: Morphine Sulfate 4 MG/ML CARTRIDGE IVPUSH ×2 (09:48→11:05)
[2023-12-29] MEDS: droPERidol 5 MG/2 ML VIAL 1.25 MG IVPUSH (09:48)
[2023-12-29] MEDS: 0.9 % Sodium Chloride 1,000 ML 999 ML IV (09:49)
[2023-12-29 09:50] LABS: MANUAL DIFF FLAG NO
[2023-12-29 09:52] LABS: Basophils Percent Auto 0.5 % (0-2); Eosinophils Percent Auto 0.5 % (0-4); Hematocrit 33.4 % (37.0-47.0); Hemoglobin 10.6 g/dl (12.0-16.0); Imm Gran Abs Auto 0.01 X10*3/uL (0.00-0.03); Imm Gran Pct Auto 0.2 % (0.0-0.4); Lymphocytes Absolute Auto 1.3 X10*3/uL (1.2-4.9); Lymphocytes Percent Auto 20.9 % (20-40); Mean Corpuscular HGB Conc 31.7 g/dl (31.0-35.0); Mean Corpuscular Hemoglobin 24.4 pg (27.0-33.0); Mean Corpuscular Volume 76.8 fL (80.0-98.0); Mean Platelet Volume 10.5 fL (9.4-12.3); Monocytes Absolute Auto 0.4 X10*3/uL (0.1-1.2); Monocytes Percent Auto 5.8 % (2-11); Neutrophils Absolute Auto 4.5 x10*3/uL (2.0-8.3); Neutrophils Percent Auto 72.1 % (45-73); Platelet Count 234 X10*3/uL (160-400); Red Blood Count 4.35 X10*6/uL (4.20-5.50); Red Cell Distribution Width 15.3 % (11.0-16.0); White Blood Count 6.2 X10*3/uL (4.8-10.8)
[2023-12-29 09:53] LABS: Appearance Urine Cloudy; Color Urine Yellow; Glucose Urine UA Negative (Negative); Leukocyte Esterase Urine Negative (Negative); Nitrite Urine Negative (Negative); Specific Gravity - Urine 1.025 (1.005-1.025); Urine Blood Negative (Negative); Urine Ketones Negative (Negative); Urine Protein Trace mg/dL (Neg-Trace)
--- NOTE | 2023-12-29 09:54 | PC.NURSE ---
pt a&ox3, c/o 02/11 abd pain, iv inserted, labs drawn, ekg performed, nasal swab performed, pt medicated for nausea/pain, pt awaiting CT scan, call [place] within reach, will continue to monitor
[2023-12-29 09:57] LABS: INTERNATIONAL NORM RATIO 1.3 (0.9-1.1); Prothrombin Time 15.5 SEC (11.1-13.3)
[2023-12-29 09:59] LABS: UPreg QC Valid YES; Urine Pregnancy NEGATIVE (NEGATIVE)
[2023-12-29 10:28] LABS: Alanine Aminotransferase 26 U/L (0-31); Alkaline Phosphatase 128 U/L (39-117); Anion Gap 16 (12-20); Aspartate Amino Transferase 33 U/L (5-31); Bilirubin Total 0.3 mg/dL (0.0-1.0); Blood Urea Nitrogen 5 mg/dL (9-16); C Reactive Protein 0.26 mg/dL (< or = 0.50); Calcium 9.5 mg/dL (8.4-10.2); Carbon Dioxide 19 mmol/L (22-29); Chloride 109 mmol/L (96-108); Creatinine Clr Calc Pharmacy 109.1; Estimated Glomerular Filt Rate > 60; Glucose Random 119 mg/dL (60-115); Lipase 11 U/L (8-78); Magnesium 1.9 mg/dL (1.6-2.6); Sodium 140 mmol/L (135-145)
[2023-12-29 10:29] VITALS: BP 119/78; PULSE 74; RESP 18; TEMP 36.4; O2SAT 98
[2023-12-29] MEDS: iohexoL 350 MG/ML 100 ML INFUS..BTL IV (10:42)
[2023-12-29 11:04] LABS: Influenza A PCR NEGATIVE (Negative); Influenza B PCR NEGATIVE (Negative); Resp Syncy Virus RNA Qual PCR NEGATIVE (Negative); SARS COV2 PCR INHOUSE NEGATIVE (Negative)
--- NOTE | 2023-12-29 11:06 | PC.NURSE ---
pt had continued 8/10 pain, provider notified and pt mediated for pain
[2023-12-29 12:26] VITALS: BP 106/65; PULSE 64; RESP 16; TEMP 36.5; O2SAT 99
== END 2023-12-29 12:27 | disposition home or self-care (01) ==
PROVIDERS: Nurse Practitioner Family; Emergency Provider Emergency Medicine; PCP Family Medicine
DX: K86.1 Other chronic pancreatitis (principal); R11.2 Nausea with vomiting, unspecified; F10.10 Alcohol abuse, uncomplicated; Y90.9 Presence of alcohol in blood, level not specified; Z03.818 Encounter for observation for suspected exposure to other biological agents ruled out; J45.909 Unspecified asthma, uncomplicated
CPT/HCPCS: 0241U; 74177; 80053; 81003; 81025; 83690; 83735; 85025; 85610; 86140; 93005; 96361; 96374; 96375; 96376; 99284; 99285; J1790; J2270; Q9967

== ENCOUNTER → 2023-12-29 09:27 | Outpatient (BNV) | payer MEDICAID, SELFPAY | PROVIDERS: Emergency Provider Emergency Medicine; PCP Family Medicine; Visit Provider Internal Medicine | DX: R94.31 Abnormal electrocardiogram [ECG] [EKG] (principal) | CPT/HCPCS: 93010 ==

== ENCOUNTER 2024-01-11 16:05 | Emergency (ER) | payer MEDICAID, SELFPAY ==
[2024-01-11 16:07] VITALS: BP 118/80; PULSE 120; O2SAT 98
[2024-01-11 17:41] VITALS: BP 117/64; PULSE 104; RESP 16; TEMP 36.5; O2SAT 97; BMI 19.8
[2024-01-11 18:28] LABS: MANUAL DIFF FLAG NO
[2024-01-11 18:35] LABS: Basophils Absolute Auto 0.1 X10*3/uL (0.0-0.2); Basophils Percent Auto 0.6 % (0-2); Eosinophils Absolute Auto 0.1 X10*3/uL (0.0-0.4); Eosinophils Percent Auto 0.7 % (0-4); Hematocrit 38.9 % (37.0-47.0); Hemoglobin 12.6 g/dl (12.0-16.0); Imm Gran Abs Auto 0.03 X10*3/uL (0.00-0.03); Imm Gran Pct Auto 0.3 % (0.0-0.4); Lymphocytes Absolute Auto 2.2 X10*3/uL (1.2-4.9); Mean Corpuscular HGB Conc 32.4 g/dl (31.0-35.0); Mean Corpuscular Hemoglobin 24.4 pg (27.0-33.0); Mean Corpuscular Volume 75.4 fL (80.0-98.0); Mean Platelet Volume 10.5 fL (9.4-12.3); Monocytes Absolute Auto 0.4 X10*3/uL (0.1-1.2); Neutrophils Absolute Auto 7.9 x10*3/uL (2.0-8.3); Neutrophils Percent Auto 73.4 % (45-73); Platelet Count 356 X10*3/uL (160-400); Red Blood Count 5.16 X10*6/uL (4.20-5.50); Red Cell Distribution Width 15.6 % (11.0-16.0); White Blood Count 10.7 X10*3/uL (4.8-10.8)
[2024-01-11 18:40] LABS: Ethanol < 10 mg/dL
[2024-01-11 18:51] LABS: Alanine Aminotransferase 26 U/L (0-31); Albumin Level 4.6 g/dL (3.5-5.0); Alkaline Phosphatase 134 U/L (39-117); Anion Gap 13 (12-20); Aspartate Amino Transferase 33 U/L (5-31); Bilirubin Direct < 0.2 mg/dL (0.0-0.5); Bilirubin Total 0.2 mg/dL (0.0-1.0); Blood Urea Nitrogen 8 mg/dL (9-16); Calcium 10.2 mg/dL (8.4-10.2); Carbon Dioxide 22 mmol/L (22-29); Chloride 107 mmol/L (96-108); Creatinine Clr Calc Pharmacy 98.9; Estimated Glomerular Filt Rate > 60; Glucose Random 120 mg/dL (60-115); Lipase 9 U/L (8-78); Magnesium 2.2 mg/dL (1.6-2.6); Potassium 4.2 mmol/L (3.3-5.1); Sodium 138 mmol/L (135-145); Total Protein 7.9 g/dL (6.5-8.0)
[2024-01-11 18:53] LABS: Appearance Urine Clear; Color Urine Yellow; Glucose Urine UA Negative (Negative); Leukocyte Esterase Urine Negative (Negative); Nitrite Urine Negative (Negative); Specific Gravity - Urine 1.015 (1.005-1.025); Urine Blood Negative (Negative); Urine Ketones Negative (Negative); Urine Protein Negative (Neg-Trace)
[2024-01-11 18:55] LABS: HCG Quantitative < 2 mIU/mL
[2024-01-11 19:12] LABS: Influenza A PCR NEGATIVE (Negative); Influenza B PCR NEGATIVE (Negative); Resp Syncy Virus RNA Qual PCR NEGATIVE (Negative); SARS COV2 PCR INHOUSE NEGATIVE (Negative)
--- NOTE | 2024-01-11 22:38 | ED.GENADULT ---
HPI - General Adult General Chief complaint: Headache Stated complaint: abdominal pain Time Seen by Provider: 01/11/24 22:38 History of Present Illness ED Provider: Derrell MOROCHO narrative: Patient is a 28-year-old female who has a history of pancreatitis with complications including necrotizing pancreatitis. Earlier this year she had a drain placed for several weeks. The patient has had a lot of problems with chronic pains related to her pancreatitis and is on chronic oral morphine. The patient comes to the emergency room today saying that her abdominal pain is worse than usual despite her usual morphine. She is also complaining of a headache that is like a migraine headache and which has been bothering her for a week and is worse than her usual migraines. Related Data Previous Rx's ?Medication ?Instructions ?Recorded heparin (porcine) 25,000 unit/250 25,000 unit (250 mL) continuous IV 09/07/23 mL in 0.45 % sodium chloride IV infusion .Q0M #100 mL soln heparin (porcine) 5,000 unit/mL 3,100 unit (0.62 mL) IVPUSH 09/07/23 injection solution PROTOCOL BOLUS PRN 40 Unit/Kg - Heparin Protocol #100 mL heparin (porcine) 5,000 unit/mL 6,300 unit (1.26 mL) IVPUSH 09/07/23 injection solution PROTOCOL BOLUS PRN 80 Unit/Kg - Heparin Protocol #100 mL hydromorphone 1 mg/mL injection 1 mg IVPUSH Q2H PRN Pain, 09/07/23 syringe Moderate(Pain Scale 4-6) #5 mL lactated Ringers 150 ml IV .per hour 2 days 09/07/23 morphine 15 mg immediate release 15 mg PO Q6H PRN pain #14 tabs 10/18/23 tablet ondansetron 4 mg disintegrating 4 mg PO Q6H PRN nausea and 10/18/23 tablet vomiting #10 tabs Allergies Allergy/AdvReac Type Severity Reaction Status Date / Time No Known Allergies Allergy Verified 01/11/24 17:42 Review of Systems Review of Systems: Yes all other systems are reviewed and are negative [facility] Past Medical History Medical History Alcohol abuse Necrotizing pancreatitis Benign tumor of breast Alcohol abuse Asthma Anxiety Surgical History No history of previous surgery Social History Social History Household Members: Family Housing: House Do you presently have visiting nurse or other home services: No Alcohol intake: former Patient Tobacco Use Status: Never used Tobacco Smoked in Last 30 Days: No Use of substances other than those prescribed or required for medical reasons: No Substance Use Type: Marijuana Advance Directives: No Advance Directives Information Provided: No service: No Physical Exam ED Vital Signs: Vital Signs - 24 hr 01/11/24 17:41 01/12/24 00:00 01/12/24 00:23 Temperature 97.7 F 97.8 F 97.8 F Pulse Rate 104 H 72 72 Respiratory Rate 16 18 18 Blood Pressure 117/64 106/66 106/66 Pulse Oximetry 97 97 97 Oxygen Delivery Method Room Air Room Air Room Air BMI result Body Mass Index 19.8 Const Other: The patient is awake, alert, cooperative. She was in a darkened room. She did not seem in acute distress. HENMT Other: Face is symmetrical. Mucous membranes moist. Eyes Other: Pupils are round equal, conjunctivae clear Neck Other: Moving her neck easily Resp Effort & Inspection: normal respiratory effort Auscultation: clear to auscultation bilaterally Cardio Rate: regular rate Rhythm: regular rhythm Heart sounds: S1 normal heart sound present and S2 normal heart sound present GI Other: Abdomen is soft. There is epigastric tenderness. Skin Other: Skin is dry and unremarkable Neuro Other: The patient is awake and alert with a normal mental status. Cranial nerves are grossly intact. She moves her extremities normally. Extrem Other: No calf swelling or tenderness Medications Administered Discontinued Medications Generic Name Dose Route Start Last Admin Trade Name Freq PRN Reason Stop Dose Admin Droperidol 1.25 mg 01/11/24 22:42 01/11/24 23:02 Droperidol 5 Mg/2 Ml Vial IVPUSH 01/11/24 22:43 1.25 mg ONCE ONE Administration Droperidol 1.25 mg 01/11/24 23:55 01/11/24 23:59 Droperidol 5 Mg/2 Ml Vial IVPUSH 01/11/24 23:56 1.25 mg ONCE ONE Administration Sodium Chloride 1,000 mls @ 999 mls/hr 01/11/24 22:45 01/12/24 00:09 Ns IV 01/11/24 23:45 Infused .Q1H1M TRUONG Infusion Ketorolac Tromethamine 10 mg 01/11/24 22:42 01/11/24 22:58 Ketorolac Tromethamine 15 Mg/Ml Vial IVPUSH 01/11/24 22:43 10 mg ONCE ONE Administration Morphine Sulfate 8 mg 01/11/24 22:42 01/11/24 23:01 Morphine Sulfate 10 Mg/Ml Cartridge IVPUSH 01/11/24 22:43 8 mg ONCE ONE Administration Protocol Morphine Sulfate 8 mg 01/11/24 23:55 01/12/24 00:00 Morphine Sulfate 10 Mg/Ml Cartridge IVPUSH 01/11/24 23:56 8 mg ONCE ONE Administration Protocol Medical Decision Making Medical Decision Making [facility] Narrative: The patient is a 28-year-old female who has a history of significant problems with alcoholic pancreatitis. Earlier this year she required surgical drains and had a long hospitalization at [facility]. ?She has subsequently had a few ER visits for abdominal pains here and had negative CT scans. She returns with a complaint of epigastric pain. She also complains of a migraine headache. Her labs are unremarkable. She was treated symptomatically and ultimately discharged. Lab Data 01/11/24 18:20 01/11/24 18:20 Labs: Lab Results 01/11/24 01/11/24 Range/Units 18:20 18:28 WBC 10.7 (4.8-10.8) X10*3/uL RBC 5.16 (4.20-5.50) X10*6/uL Hgb 12.6 (12.0-16.0) g/dl Hct 38.9 (37.0-47.0) % MCV 75.4 L (80.0-98.0) fL MCH 24.4 L (27.0-33.0) pg MCHC 32.4 (31.0-35.0) g/dl RDW 15.6 (11.0-16.0) % Plt Count 356 D (160-400) X10*3/uL MPV 10.5 (9.4-12.3) fL Immature Gran % (Auto) 0.3 (0.0-0.4) % Neut % (Auto) 73.4 H (45-73) % Lymph % (Auto) 21.0 (20-40) % [place] % (Auto) 4.0 (2-11) % Eos % (Auto) 0.7 (0-4) % Baso % (Auto) 0.6 (0-2) % Lymph # (Auto) 2.2 (1.2-4.9) X10*3/uL [place] # (Auto) 0.4 (0.1-1.2) X10*3/uL Eos # (Auto) 0.1 (0.0-0.4) X10*3/uL Baso # (Auto) 0.1 (0.0-0.2) X10*3/uL Abs Immat Gran (auto) 0.03 (0.00-0.03) X10*3/uL Absolute Neuts (auto) 7.9 (2.0-8.3) x10*3/uL Absolute Nucleated RBC 0.000 (0.0-0.012) X10*3/uL Nucleated RBC % (auto) 0.0 (0.0-0.2) /100WBC Sodium 138 (135-145) mmol/L Potassium 4.2 (3.3-5.1) mmol/L Chloride 107 (96-108) mmol/L Carbon Dioxide 22 (22-29) mmol/L Anion Gap 13 (12-20) BUN 8 L (9-16) mg/dL Creatinine 0.70 (0.5-1.4) mg/dL Estim Creat Clear Calc 98.9 Estimated GFR > 60 Random Glucose 120 H (60-115) mg/dL Calcium 10.2 D (8.4-10.2) mg/dL Magnesium 2.2 (1.6-2.6) mg/dL Total Bilirubin 0.2 (0.0-1.0) mg/dL Direct Bilirubin < 0.2 (0.0-0.5) mg/dL AST 33 H (5-31) U/L ALT 26 (0-31) U/L Alkaline Phosphatase 134 H (39-117) U/L Total Protein 7.9 (6.5-8.0) g/dL Albumin 4.6 (3.5-5.0) g/dL Lipase 9 (8-78) U/L Beta HCG, Quant < 2 mIU/mL Urine Color Yellow Urine Appearance Clear Urine pH 7.0 (5.0-9.0) Ur Specific [place] 1.015 (1.005-1.025) Urine Protein Negative (Neg-Trace) mg/dL Urine Glucose (UA) Negative (Negative) mg/dL Urine Ketones Negative (Negative) mg/dL Urine Blood Negative (Negative) Urine Nitrite Negative (Negative) Ur Leukocyte Esterase Negative (Negative) Ethyl Alcohol < 10 mg/dL Influenza Type A (PCR) NEGATIVE (Negative) Influenza Type B (PCR) NEGATIVE (Negative) RSV RNA Qual (PCR) NEGATIVE (Negative) SARS-CoV-2 RNA (RT-PCR) NEGATIVE (Negative) Discharge Plan Discharge Clinical Impression: Abdominal pain, Headache Patient Disposition: Home, Self-Care Additional Instructions: Your laboratory testing today was reassuring. 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 Prescriptions: No Action heparin (porcine) 5,000 unit/mL Solution 6,300 unit IVPUSH PROTOCOL BOLUS PRN (Reason: 80 Unit/Kg - Heparin Protocol) Qty: 100 0RF heparin (porcine) 5,000 unit/mL Solution 3,100 unit IVPUSH PROTOCOL BOLUS PRN (Reason: 40 Unit/Kg - Heparin Protocol) Qty: 100 0RF hydromorphone 1 mg/mL Syringe 1 mg IVPUSH Q2H PRN (Reason: Pain, Moderate(Pain Scale 4-6)) Qty: 5 0RF Protocol: Hold for RR < HOLD and contact provider for RR < (bpm): 12 Rx Instructions: Partial Fill upon patient request. heparin(porcine) in 0.45% NaCl 25,000 unit/250 mL Parenteral Solution 25,000 unit continuous IV infusion .Q0M Qty: 100 0RF lactated Ringers Parenteral Solution 150 ml IV .per hour 2 Days Rx Instructions: until hemodynamically stable morphine 15 mg tablet 15 mg PO Q6H PRN (Reason: pain) Qty: 14 0RF Rx Instructions: Partial Fill upon patient request. ondansetron 4 mg tablet,disintegrating 4 mg PO Q6H PRN (Reason: nausea and vomiting) Qty: 10 0RF Referrals: Ibeth Lassiter MD [Primary Care Provider] - (abdominal pain, headache) Interventions: ED Discharge Assessment Last Done: 01/12/24 00:23 Discharge Date/Time: 01/12/24 00:25 Print Language: Bulgarian
[2024-01-11] MEDS: Ketorolac Tromethamine 15 MG/ML VIAL 10 MG IVPUSH (22:58)
[2024-01-11] MEDS: 0.9 % Sodium Chloride 1,000 ML 999 ML IV (22:58)
[2024-01-11] MEDS: Morphine Sulfate 10 MG/ML CARTRIDGE 8 MG IVPUSH (23:01)
[2024-01-11] MEDS: droPERidol 5 MG/2 ML VIAL 1.25 MG IVPUSH ×2 (23:02→23:59)
[2024-01-12] VITALS: BP 106/66; PULSE 72; RESP 18; TEMP 36.6; O2SAT 97
[2024-01-12] MEDS: Morphine Sulfate 10 MG/ML CARTRIDGE 8 MG IVPUSH
[2024-01-12 00:23] VITALS: BP 106/66; PULSE 72; RESP 18; TEMP 36.6; O2SAT 97
== END 2024-01-12 00:25 | disposition home or self-care (01) ==
PROVIDERS: Physician Assistant Medical; Emergency Provider Emergency Medicine; PCP Family Medicine
DX: R10.9 Unspecified abdominal pain (principal); R51.9 Headache, unspecified; F10.10 Alcohol abuse, uncomplicated; K85.20 Alcohol induced acute pancreatitis without necrosis or infection; Y90.0 Blood alcohol level of less than 20 mg/100 ml; J45.909 Unspecified asthma, uncomplicated; F12.90 Cannabis use, unspecified, uncomplicated; Z03.818 Encounter for observation for suspected exposure to other biological agents ruled out; Z79.899 Other long term (current) drug therapy
CPT/HCPCS: 0241U; 36415; 80048; 80076; 80307; 81003; 83690; 83735; 84702; 85025; 96361; 96374; 96375; 96376; 99284; 99285; J1790; J1885; J2270

== ENCOUNTER 2024-02-18 01:20 | Emergency (ER) | payer MEDICAID, SELFPAY ==
[2024-02-18 01:42] VITALS: BP 120/60; BP 130/84; PULSE 82; PULSE 84; RESP 16; TEMP 36.9; O2SAT 98; BMI 19.5
--- NOTE | 2024-02-18 01:53 | ED_ITS ---
HPI - Abdominal Pain General Chief Complaint: Abdominal Pain Stated Complaint: LUQ ABD PAIN Time Seen by Provider: 02/18/24 01:40 Source: patient Mode of arrival: EMS Limitations: no limitations History of Present Illness ED Provider: ender MOROCHO narrative: Patient's alcoholic induced necrotizing pancreatitis started in 09/07/2023 status post cyst drainage pain to the ER multiple times for abdominal pain last time was seen here on 01/10 had MRI last week by GI which showed scars and small amount of fluid collection comes here as been having increased pain for last few hours with nausea no vomiting no diarrhea no fever no chills pain is in mid abdomen radiating to the back similar to that in the past patient is on morphine at home Related Data Previous Rx's ?Medication ?Instructions ?Recorded heparin (porcine) 25,000 unit/250 25,000 unit (250 mL) continuous IV 09/07/23 mL in 0.45 % sodium chloride IV infusion .Q0M #100 mL soln heparin (porcine) 5,000 unit/mL 3,100 unit (0.62 mL) IVPUSH 09/07/23 injection solution PROTOCOL BOLUS PRN 40 Unit/Kg - Heparin Protocol #100 mL heparin (porcine) 5,000 unit/mL 6,300 unit (1.26 mL) IVPUSH 09/07/23 injection solution PROTOCOL BOLUS PRN 80 Unit/Kg - Heparin Protocol #100 mL hydromorphone 1 mg/mL injection 1 mg IVPUSH Q2H PRN Pain, 09/07/23 syringe Moderate(Pain Scale 4-6) #5 mL lactated Ringers 150 ml IV .per hour 2 days 09/07/23 morphine 15 mg immediate release 15 mg PO Q6H PRN pain #14 tabs 10/18/23 tablet ondansetron 4 mg disintegrating 4 mg PO Q6H PRN nausea and 10/18/23 tablet vomiting #10 tabs Allergies Allergy/AdvReac Type Severity Reaction Status Date / Time No Known Allergies Allergy Verified 02/18/24 01:46 Review of Systems Review of Systems Yes all other systems are reviewed and are negative PMFSH Past Medical History Medical History Alcohol abuse Necrotizing pancreatitis Benign tumor of breast Alcohol abuse Asthma Anxiety Surgical History No history of previous surgery Social History Social History Household Members: Family Housing: House Do you presently have visiting nurse or other home services: No Alcohol intake: former Patient Tobacco Use Status: Never used Tobacco Substance Use Type: Marijuana Advance Directives: No Advance Directives Information Provided: Yes Do you have a plan to hurt others: No Plan service: No Physical Exam ED Vital Signs: Vital Signs - 24 hr 02/18/24 01:42 02/18/24 04:03 Temperature 98.5 F 97.9 F Pulse Rate 84 72 Respiratory Rate 16 16 Blood Pressure 130/84 104/63 Pulse Oximetry 98 97 Oxygen Delivery Method Room Air Room Air BMI result Body Mass Index 19.5 Appearance: Alert. Oriented X3. No acute distress. Eyes: PERRLA, No Nystagmus ENT: Pharynx normal. Oral Mucosa moist Neck: Normal inspection. Neck supple. CVS: Normal heart rate and rhythm. Pulses normal. Respiratory: No respiratory distress. Equal air entry bilateral, no wheezing/rales/rhonchi Abdomen: Soft and tenderness mid abdomen no rebound tenderness Bowel sounds are present, no mass palpable, no CVA tenderness Skin: Skin warm and dry. Normal skin color. Normal skin turgor. Extremities: No lower extremity edema. No calf tenderness Neuro: Oriented X 3. No motor deficit. Medical Decision Making Medical Decision Making [facility] Narrative: Patient with pain of chronic pancreatitis improved after morphine taking p.o. fluids now feeling much better lipase is normal patient is supposed to see development expert feels comfortable to go home and follow up as outpatient Lab Data [facility] Lab Attestation statement: I reviewed the patient's lab results. 02/18/24 02:04 02/18/24 02:04 Labs: Lab Results 02/18/24 02/18/24 Range/Units 02:04 02:33 WBC 8.8 (4.8-10.8) X10*3/uL RBC 4.90 (4.20-5.50) X10*6/uL Hgb 12.3 (12.0-16.0) g/dl Hct 38.0 (37.0-47.0) % MCV 77.6 L (80.0-98.0) fL MCH 25.1 L (27.0-33.0) pg MCHC 32.4 (31.0-35.0) g/dl RDW 17.0 H (11.0-16.0) % Plt Count 254 D (160-400) X10*3/uL MPV 11.8 (9.4-12.3) fL Immature Gran % (Auto) 0.2 (0.0-0.4) % Neut % (Auto) 60.8 (45-73) % Lymph % (Auto) 30.9 (20-40) % [place] % (Auto) 6.6 (2-11) % Eos % (Auto) 0.9 (0-4) % Baso % (Auto) 0.6 (0-2) % Lymph # (Auto) 2.7 (1.2-4.9) X10*3/uL [place] # (Auto) 0.6 (0.1-1.2) X10*3/uL Eos # (Auto) 0.1 (0.0-0.4) X10*3/uL Baso # (Auto) 0.1 (0.0-0.2) X10*3/uL Abs Immat Gran (auto) 0.02 (0.00-0.03) X10*3/uL Absolute Neuts (auto) 5.3 (2.0-8.3) x10*3/uL Absolute Nucleated RBC 0.000 (0.0-0.012) X10*3/uL Nucleated RBC % (auto) 0.0 (0.0-0.2) /100WBC Sodium 141 (135-145) mmol/L Potassium 3.3 D (3.3-5.1) mmol/L Chloride 110 H (96-108) mmol/L Carbon Dioxide 21 L (22-29) mmol/L Anion Gap 13 (12-20) BUN 8 L (9-16) mg/dL Creatinine 0.74 (0.5-1.4) mg/dL Estim Creat Clear Calc 92.1 Estimated GFR > 60 Random Glucose 116 H (60-115) mg/dL Calcium 9.5 D (8.4-10.2) mg/dL Total Bilirubin 0.4 (0.0-1.0) mg/dL AST 36 H (5-31) U/L ALT 50 H (0-31) U/L Alkaline Phosphatase 128 H (39-117) U/L Total Protein 7.1 (6.5-8.0) g/dL Albumin 4.4 (3.5-5.0) g/dL Lipase 11 (8-78) U/L Urine Color Yellow Urine Appearance Cloudy Urine pH 6.5 (5.0-9.0) Ur Specific [place] 1.025 (1.005-1.025) Urine Protein Negative (Neg-Trace) mg/dL Urine Glucose (UA) Negative (Negative) mg/dL Urine Ketones Trace (Negative) mg/dL Urine Blood Negative (Negative) Urine Nitrite Negative (Negative) Ur Leukocyte Esterase Negative (Negative) External Record Review External record reviewed: Inpatient record and Prior outpatient labs Medications Administered Discontinued Medications Generic Name Dose Route Start Last Admin Trade Name Freq PRN Reason Stop Dose Admin Diphenhydramine HCl 25 mg 02/18/24 03:24 02/18/24 03:27 Diphenhydramine Hcl 50 Mg/Ml Vial IVPUSH 02/18/24 03:25 25 mg ONCE ONE Administration Sodium Chloride 1,000 mls @ 999 mls/hr 02/18/24 01:54 02/18/24 03:24 Ns IV 02/18/24 02:54 Infused .Q1H1M ONE Infusion Morphine Sulfate 4 mg 02/18/24 01:54 02/18/24 02:20 Morphine Sulfate 4 Mg/Ml Cartridge IVPUSH 02/18/24 01:55 4 mg ONCE ONE Administration Protocol Morphine Sulfate 4 mg 02/18/24 03:03 02/18/24 03:12 Morphine Sulfate 4 Mg/Ml Cartridge IVPUSH 02/18/24 03:04 4 mg ONCE ONE Administration Protocol Ondansetron HCl 4 mg 02/18/24 01:54 02/18/24 02:20 Ondansetron Hcl 4 Mg/2 Ml Vial IVPUSH 02/18/24 01:55 4 mg ONCE ONE Administration Discharge Plan Discharge Clinical Impression: Chronic pancreatitis Patient Disposition: Home, Self-Care Instructions: Pancreatitis (ED) Additional Instructions: Continue pain medication and follow with development expert Prescriptions: No Action heparin (porcine) 5,000 unit/mL Solution 6,300 unit IVPUSH PROTOCOL BOLUS PRN (Reason: 80 Unit/Kg - Heparin Protocol) Qty: 100 0RF heparin (porcine) 5,000 unit/mL Solution 3,100 unit IVPUSH PROTOCOL BOLUS PRN (Reason: 40 Unit/Kg - Heparin Protocol) Qty: 100 0RF hydromorphone 1 mg/mL Syringe 1 mg IVPUSH Q2H PRN (Reason: Pain, Moderate(Pain Scale 4-6)) Qty: 5 0RF Protocol: Hold for RR < HOLD and contact provider for RR < (bpm): 12 Rx Instructions: Partial Fill upon patient request. heparin(porcine) in 0.45% NaCl 25,000 unit/250 mL Parenteral Solution 25,000 unit continuous IV infusion .Q0M Qty: 100 0RF lactated Ringers Parenteral Solution 150 ml IV .per hour 2 Days Rx Instructions: until hemodynamically stable morphine 15 mg tablet 15 mg PO Q6H PRN (Reason: pain) Qty: 14 0RF Rx Instructions: Partial Fill upon patient request. ondansetron 4 mg tablet,disintegrating 4 mg PO Q6H PRN (Reason: nausea and vomiting) Qty: 10 0RF Print Language: Greenlandic
[2024-02-18 02:09] LABS: MANUAL DIFF FLAG NO
[2024-02-18 02:11] LABS: Basophils Absolute Auto 0.1 X10*3/uL (0.0-0.2); Basophils Percent Auto 0.6 % (0-2); Eosinophils Absolute Auto 0.1 X10*3/uL (0.0-0.4); Eosinophils Percent Auto 0.9 % (0-4); Hemoglobin 12.3 g/dl (12.0-16.0); Imm Gran Abs Auto 0.02 X10*3/uL (0.00-0.03); Imm Gran Pct Auto 0.2 % (0.0-0.4); Lymphocytes Absolute Auto 2.7 X10*3/uL (1.2-4.9); Lymphocytes Percent Auto 30.9 % (20-40); Mean Corpuscular HGB Conc 32.4 g/dl (31.0-35.0); Mean Corpuscular Hemoglobin 25.1 pg (27.0-33.0); Mean Corpuscular Volume 77.6 fL (80.0-98.0); Mean Platelet Volume 11.8 fL (9.4-12.3); Monocytes Absolute Auto 0.6 X10*3/uL (0.1-1.2); Monocytes Percent Auto 6.6 % (2-11); Neutrophils Absolute Auto 5.3 x10*3/uL (2.0-8.3); Neutrophils Percent Auto 60.8 % (45-73); Platelet Count 254 X10*3/uL (160-400); White Blood Count 8.8 X10*3/uL (4.8-10.8)
[2024-02-18] MEDS: 0.9 % Sodium Chloride 1,000 ML 999 ML IV (02:20)
[2024-02-18] MEDS: Morphine Sulfate 4 MG/ML CARTRIDGE IVPUSH ×2 (02:20→03:12)
[2024-02-18] MEDS: ondansetron HCL 4 MG/2 ML VIAL IVPUSH (02:20)
[2024-02-18 02:23] LABS: Alanine Aminotransferase 50 U/L (0-31); Albumin Level 4.4 g/dL (3.5-5.0); Alkaline Phosphatase 128 U/L (39-117); Anion Gap 13 (12-20); Aspartate Amino Transferase 36 U/L (5-31); Bilirubin Total 0.4 mg/dL (0.0-1.0); Blood Urea Nitrogen 8 mg/dL (9-16); Calcium 9.5 mg/dL (8.4-10.2); Carbon Dioxide 21 mmol/L (22-29); Chloride 110 mmol/L (96-108); Creatinine Clr Calc Pharmacy 92.1; Estimated Glomerular Filt Rate > 60; Glucose Random 116 mg/dL (60-115); Lipase 11 U/L (8-78); Potassium 3.3 mmol/L (3.3-5.1); Sodium 141 mmol/L (135-145); Total Protein 7.1 g/dL (6.5-8.0)
[2024-02-18 02:40] LABS: Appearance Urine Cloudy; Color Urine Yellow; Glucose Urine UA Negative (Negative); Leukocyte Esterase Urine Negative (Negative); Nitrite Urine Negative (Negative); PH 6.5 (5.0-9.0); Specific Gravity - Urine 1.025 (1.005-1.025); Urine Blood Negative (Negative); Urine Ketones Trace mg/dL (Negative); Urine Protein Negative (Neg-Trace)
[2024-02-18] MEDS: diphenhydrAMINE HCL 50 MG/ML VIAL 25 MG IVPUSH (03:27)
[2024-02-18 04:03] VITALS: BP 104/63; PULSE 72; RESP 16; TEMP 36.6; O2SAT 97
[2024-02-18 05:03] VITALS: BP 104/63; PULSE 72; RESP 16; TEMP 36.6; O2SAT 97
== END 2024-02-18 05:04 | disposition home or self-care (01) ==
PROVIDERS: Emergency Provider Internal Medicine
DX: K86.1 Other chronic pancreatitis (principal); R10.12 Left upper quadrant pain; R11.2 Nausea with vomiting, unspecified; Z79.899 Other long term (current) drug therapy
CPT/HCPCS: 36415; 80053; 81003; 83690; 85025; 96361; 96374; 96375; 96376; 99284; J1200; J2270; J2405

== ENCOUNTER 2024-02-29 10:42 | Outpatient (REF) | payer MEDICAID, SELFPAY ==
[2024-02-29 14:48] LABS: Estimated Average Glucose 105 mg/dL; Hemoglobin A1c % 5.3 % (<6.0)
[2024-02-29 14:59] LABS: Alanine Aminotransferase 27 U/L (0-31); Albumin Level 4.3 g/dL (3.5-5.0); Alkaline Phosphatase 127 U/L (39-117); Aspartate Amino Transferase 27 U/L (5-31); Bilirubin Direct 0.2 mg/dL (0.0-0.5); Bilirubin Total 0.4 mg/dL (0.0-1.0); Cholesterol 112 mg/dL (<200); HDL Cholesterol 40 mg/dL (>40); Iron 32 mcg/dL (30-160); LDL Cholesterol Calculated 54 mg/dL (<100); Percent Iron Saturation 11 % (15-50); Total Iron Binding Capacity 297 mcg/dL (228-428); Total Protein 7.2 g/dL (6.5-8.0); Triglycerides 94 mg/dL (<150); Unsaturated Iron Binding 265 ug/dL
[2024-02-29 15:03] LABS: Ferritin 25 ng/mL (10-122); TSH reflex Free T4 2.93 uIU/mL (0.32-4.0); Vitamin D 25-OH Total 16.5 ng/mL (>30)
== END 2024-02-29 10:43 | disposition home or self-care (01) ==
LOC: HO.CHCLDS 10:42
PROVIDERS: Visit Provider Family Medicine
DX: E13.9 Other specified diabetes mellitus without complications (principal); S36.209S Unspecified injury of unspecified part of pancreas, sequela
CPT/HCPCS: 36415; 80061; 80076; 82306; 82728; 83036; 83540; 84443

== ENCOUNTER 2024-03-13 11:12 | Outpatient (REF) | payer MEDICAID, SELFPAY ==
--- NOTE | ~2024-03-13 | US_ITS ---
EXAMINATION:US PELVIS TRANSABDOMINAL AND TRANSVAGINAL CLINICAL INFORMATION: PELVIC PAIN,H/O OVARIAN CYSTS COMPARISON: No priors available. LMP: February 18, 2024 FINDINGS: UTERUS: The uterus is anteverted. Size: 7.1 x 3.8 x 5.1 cm. Uterine mass: There is no uterine mass. Cervix: Grossly unremarkable. Endometrium: No ultrasound evidence of endometrial lesion. endometrial thickness measures 0.8 cm ADNEXA: Normal Right ovary: Normal in size. Left ovary: Normal in size. There are small follicles the largest 1.6 cm. Doppler exam: Normal Doppler flow identified in both ovaries. FREE FLUID: Trace amount of free fluid. OTHER FINDINGS: None US/US pelvic and transvaginal IMPRESSION: Normal pelvic ultrasound. Electronically signed by: Thuan Bravo MD 05/01/2024 10:27 AM [facility]
== END 2024-03-13 11:13 | disposition home or self-care (01) ==
LOC: HO.US 11:12
PROVIDERS: PCP Family Medicine; Visit Provider Family Medicine
DX: R10.2 Pelvic and perineal pain (principal)
CPT/HCPCS: 76830; 76856

== ENCOUNTER 2024-03-13 11:50 | Emergency (ER) | payer MEDICAID, SELFPAY ==
[2024-03-13] VITALS (7 sets, daily range): BP systolic 99–122; BP diastolic 58–76; PULSE 86–110; RESP 14–20; TEMP 36.5–36.9; O2SAT 97–100; BMI 19.6
--- NOTE | ~2024-03-13 | CT_ITS ---
EXAMINATION: CT ABDOMEN AND PELVIS WITH CONTRAST CLINICAL INFORMATION: Epigastric abdominal pain , history of acute pancreatitis in September 2023. COMPARISON: Abdominal CT of 12/29/2023 TECHNIQUE: Multidetector volumetric images were obtained from the superior aspect of the liver through the pubic symphysis following administration 85 mL of Omnipaque 350 intravenous contrast. Sagittal and coronal reformatted images were obtained on the technologist's workstation. Oral contrast: No This CT examination was performed using dose optimization techniques as appropriate, variously including the following: *Automated exposure control *Adjustment of mA and/or kV according to patient size (this includes techniques or standardized protocols for targeted exams where dose is matched to indication/reason for exam; i.e. extremities or head) *Use of iterative reconstruction technique DLP: 377 mGy-cm FINDINGS: LUNG BASES: The visualized lung bases are unremarkable. LIVER, GALLBLADDER, AND BILIARY TREE: The liver is normal in size, shape, and attenuation. No focal hepatic lesion or biliary ductal dilatation is present. The portal vein is patent. The gallbladder is unremarkable with no evidence of radiopaque gallstones, gallbladder wall thickening, or obvious pericholecystic inflammatory changes. PANCREAS: The pancreas is somewhat atrophic. There is poorly defined low density soft tissue extending anteriorly from the pancreatic body towards the stomach, though considerably improved from prior CTs dating to 11/23/2023 and 10/18/2023 when a pseudocyst was evident in this location. On the current examination, no residual discrete fluid collection is evident and peripancreatic infiltration has considerably decreased. SPLEEN: Unremarkable. ADRENAL GLANDS: Unremarkable. KIDNEYS AND URETERS: The kidneys are normal in size, shape, and attenuation. No hydronephrosis, hydroureter, or calculi seen. No perinephric stranding. BLADDER: Unremarkable. GASTROINTESTINAL TRACT: The small and large bowel are unremarkable. The appendix is not visualized. ABDOMINAL WALL: No significant hernia is appreciated. LYMPH NODES: Normal. VASCULAR: Unremarkable. PELVIC VISCERA: Unremarkable. OSSEOUS STRUCTURES: Unremarkable. CT/CT abdomen pelvis w IV con IMPRESSION: 1. Atrophic pancreas with soft tissue infiltration extending from the pancreatic neck towards the stomach, at the site of previously seen extensive pancreatic necrosis and pseudocyst formation. The current findings likely reflect the sequela of the previously much more severe pancreatitis. No abscess, drainable collection or pseudocyst is visualized. Continued surveillance is recommended to confirm further resolution of this peripancreatic soft tissue lesion. MRI might also be of benefit as clinically warranted to exclude other infiltrative processes, which although not suspected, would be difficult to exclude. Fleischner guidelines were followed. Electronically signed by: Cory Olsen MD 03/13/2024 06:47 PM EDT
--- NOTE | 2024-03-13 11:53 | ED_ITS ---
HPI - General Adult General Chief complaint: Abdominal Pain Stated complaint: Abd pain Time Seen by Provider: 03/13/24 14:33 Source: patient and old records reviewed Mode of arrival: ambulatory Limitations: no limitations History of Present Illness ED Provider: JAIME MOROCHO narrative: 28 yo female with PMH of anxiety, necrotizing pancreatitis back in September due to ETOH use here with 5 days of upper abdominal pain n/v and feels like she has pancreatitis again she adamantly denies she is drinking. No fevers, no diarrhea. Was referred she states by her [facility] GI doctor. MD complaint: abdominal pain Onset (ago): day(s) (5) Location: abdomen Radiation: back Severity: moderate Quality: aching Pain Consistency: constant Relieving factors: none Exacerbating factors: eating and movement Associated symptoms: loss of appetite, malaise and nausea/vomiting Treatments prior to arrival: none Related Data Previous Rx's ?Medication ?Instructions ?Recorded heparin (porcine) 25,000 unit/250 25,000 unit (250 mL) continuous IV 09/07/23 mL in 0.45 % sodium chloride IV infusion .Q0M #100 mL soln heparin (porcine) 5,000 unit/mL 3,100 unit (0.62 mL) IVPUSH 09/07/23 injection solution PROTOCOL BOLUS PRN 40 Unit/Kg - Heparin Protocol #100 mL heparin (porcine) 5,000 unit/mL 6,300 unit (1.26 mL) IVPUSH 09/07/23 injection solution PROTOCOL BOLUS PRN 80 Unit/Kg - Heparin Protocol #100 mL hydromorphone 1 mg/mL injection 1 mg IVPUSH Q2H PRN Pain, 09/07/23 syringe Moderate(Pain Scale 4-6) #5 mL lactated Ringers 150 ml IV .per hour 2 days 09/07/23 morphine 15 mg immediate release 15 mg PO Q6H PRN pain #14 tabs 10/18/23 tablet ondansetron 4 mg disintegrating 4 mg PO Q6H PRN nausea and 10/18/23 tablet vomiting #10 tabs Allergies Allergy/AdvReac Type Severity Reaction Status Date / Time No Known Allergies Allergy Verified 03/13/24 11:55 Review of Systems 2 Review of Systems: Constitutional : No Weight loss, No Fever, No Chills ENT/Mouth : No sore throat, No Rhinorrhea Eyes: No Swelling, No Redness Cardiovascular : No Chest Pain, No SOB, NoEdema Respiratory : No Cough, No Sputum, No Wheezing Gastrointestinal : Positive Nausea, Positive Vomiting, no Diarrhea, positive abdominal Pain, No Hematochezia, No Melena Genitourinary : No Dysuria, No Urinary Frequency, No Hematuria, No Urgency Musculoskeletal : No joint pain, No Myalgias, No Joint Swelling Skin : No Skin Lesions, No rash Neuro : No Weakness, No Numbness, No Dizziness, No Headache Psych : No Anxiety/Panic, No Depression All other systems reviewed and are negative. PENDING SALE TO [facility] Past Medical History Attestation statement: The following information was validated with the patient. Source: old records reviewed Medical History Alcohol abuse Necrotizing pancreatitis Benign tumor of breast Alcohol abuse Asthma Anxiety Surgical History No history of previous surgery Social History Social History Household Members: Family Housing: House Do you presently have visiting nurse or other home services: No Alcohol intake: former Patient Tobacco Use Status: Never used Tobacco Substance Use Type: Marijuana Advance Directives: No Advance Directives Information Provided: Yes service: No Physical Exam ED Vital Signs: Vital Signs - 24 hr 03/13/24 11:53 03/13/24 14:29 03/13/24 15:54 Temperature 97.7 F Pulse Rate 110 H 96 Respiratory Rate 20 14 16 Blood Pressure 122/73 116/76 Pulse Oximetry 100 100 Oxygen Delivery Method Room Air Room Air BMI result Body Mass Index 19.6 Appearance: Alert. Oriented X3. No acute distress. Eyes: Pupils equal, round and reactive to light. ENT: Pharynx normal. Neck: Normal inspection. Neck supple. CVS: Normal heart rate and rhythm. Pulses normal. Respiratory: No respiratory distress. Breath sounds normal. Abdomen: Soft and moderate epigastric ttp no rebound or guarding Skin: Skin warm and dry. Normal skin color. Normal skin turgor. Extremities: No lower extremity edema. No calf ttp Neuro: Oriented X 3. No motor deficit. No sensory deficit. Course Course Course Narrative: This is a rapid medical exam performed by Marla Arrieta NP: Additional HPI, ROS, PE not included below will be deferred to primary provider. Patient is a 28-year-old female with history of chronic necrotizing pancreatitis with pancreatic cyst, has had drain in the past presenting with abdominal pain. Saw GI at [facility] yesterday. Reports liquid/oily orange stool. Has outpatient CT ordered for tomorrow. Plan: labs, UA Medications Administered Discontinued Medications Generic Name Dose Route Start Last Admin Trade Name Nahun PRN Reason Stop Dose Admin Famotidine 20 mg 03/13/24 15:31 03/13/24 15:54 Famotidine/Pf 20 Mg/2 Ml Vial IVPUSH 03/13/24 15:32 20 mg ONCE ONE Administration Hydromorphone HCl 1 mg 03/13/24 15:19 03/13/24 15:54 Hydromorphone Hcl 1 Mg/Ml Syringe IVPUSH 03/13/24 15:20 1 mg ONCE ONE Administration Protocol Lactated Ringer's 1,000 mls @ 999 mls/hr 03/13/24 15:13 03/13/24 15:54 Lr IV 03/13/24 16:13 999 mls/hr .Q1H1M ONE Administration Ondansetron HCl 4 mg 03/13/24 15:19 03/13/24 15:54 Ondansetron Hcl 4 Mg/2 Ml Vial IVPUSH 03/13/24 15:20 4 mg ONCE ONE Administration Medical Decision Making Medical Decision Making [facility] Narrative: 28 yo female with PMH of anxiety, necrotizing pancreatitis here with c/o abdominal pain n/v and concern for pancreatitis again. No fevers, no diarrhea. She will get labs, CT scan, IVF and IV dilaudid. Patient is not toxic. Denies any ETOH use since last bout in September Differential Diagnosis Differential Diagnoses: The differential diagnosis associated with the presentation includes gastritis, abdominal pain, pancreatitis, pseudocyst Admission/Observation Consideration of admission/observation: Escalation of care including admission/observation considered Lab Data MDM Lab Attestation statement: I reviewed the patient's lab results. 03/13/24 14:41 03/13/24 14:41 Labs: Lab Results 03/13/24 03/13/24 Range/Units 14:41 14:47 WBC 10.0 (4.8-10.8) X10*3/uL RBC 5.62 H (4.20-5.50) X10*6/uL Hgb 14.4 (12.0-16.0) g/dl Hct 44.2 (37.0-47.0) % MCV 78.6 L (80.0-98.0) fL MCH 25.6 L (27.0-33.0) pg MCHC 32.6 (31.0-35.0) g/dl RDW 17.0 H (11.0-16.0) % Plt Count 243 (160-400) X10*3/uL MPV 11.3 (9.4-12.3) fL Immature Gran % (Auto) 0.4 (0.0-0.4) % Neut % (Auto) 66.4 (45-73) % Lymph % (Auto) 28.2 (20-40) % [place] % (Auto) 3.9 (2-11) % Eos % (Auto) 0.6 (0-4) % Baso % (Auto) 0.5 (0-2) % Lymph # (Auto) 2.8 (1.2-4.9) X10*3/uL [place] # (Auto) 0.4 (0.1-1.2) X10*3/uL Eos # (Auto) 0.1 (0.0-0.4) X10*3/uL Baso # (Auto) 0.1 (0.0-0.2) X10*3/uL Abs Immat Gran (auto) 0.04 H (0.00-0.03) X10*3/uL Absolute Neuts (auto) 6.7 (2.0-8.3) x10*3/uL Absolute Nucleated RBC 0.000 (0.0-0.012) X10*3/uL Nucleated RBC % (auto) 0.0 (0.0-0.2) /100WBC Sodium 141 (135-145) mmol/L Potassium 3.9 (3.3-5.1) mmol/L Chloride 108 (96-108) mmol/L Carbon Dioxide 24 (22-29) mmol/L Anion Gap 13 (12-20) BUN 8 L (9-16) mg/dL Creatinine 0.77 (0.5-1.4) mg/dL Estim Creat Clear Calc 88.7 Estimated GFR > 60 Random Glucose 121 H (60-115) mg/dL Calcium 10.3 H D (8.4-10.2) mg/dL Magnesium 2.4 (1.6-2.6) mg/dL Total Bilirubin 0.3 (0.0-1.0) mg/dL AST 25 (5-31) U/L ALT 25 (0-31) U/L Alkaline Phosphatase 160 H (39-117) U/L Lactate Dehydrogenase 177 (122-220) U/L Total Protein 8.6 H (6.5-8.0) g/dL Albumin 5.1 H (3.5-5.0) g/dL Amylase 77 (28-100) U/L Lipase 8 (8-78) U/L Beta HCG, Quant < 2 mIU/mL Urine Color Yellow Urine Appearance Turbid Urine pH 7.5 (5.0-9.0) Ur Specific [place] 1.025 (1.005-1.025) Urine Protein Trace (Neg-Trace) mg/dL Urine Glucose (UA) Negative (Negative) mg/dL Urine Ketones Negative (Negative) mg/dL Urine Blood Negative (Negative) Urine Nitrite Negative (Negative) Ur Leukocyte Esterase Negative (Negative) Ethyl Alcohol < 10 mg/dL External Record Review External record reviewed: Inpatient record Discharge Plan Discharge Clinical Impression: Abdominal pain Patient Disposition: Still a Patient Prescriptions: No Action heparin (porcine) 5,000 unit/mL Solution 6,300 unit IVPUSH PROTOCOL BOLUS PRN (Reason: 80 Unit/Kg - Heparin Protocol) Qty: 100 0RF heparin (porcine) 5,000 unit/mL Solution 3,100 unit IVPUSH PROTOCOL BOLUS PRN (Reason: 40 Unit/Kg - Heparin Protocol) Qty: 100 0RF hydromorphone 1 mg/mL Syringe 1 mg IVPUSH Q2H PRN (Reason: Pain, Moderate(Pain Scale 4-6)) Qty: 5 0RF Protocol: Hold for RR < HOLD and contact provider for RR < (bpm): 12 Rx Instructions: Partial Fill upon patient request. heparin(porcine) in 0.45% NaCl 25,000 unit/250 mL Parenteral Solution 25,000 unit continuous IV infusion .Q0M Qty: 100 0RF lactated Ringers Parenteral Solution 150 ml IV .per hour 2 Days Rx Instructions: until hemodynamically stable morphine 15 mg tablet 15 mg PO Q6H PRN (Reason: pain) Qty: 14 0RF Rx Instructions: Partial Fill upon patient request. ondansetron 4 mg tablet,disintegrating 4 mg PO Q6H PRN (Reason: nausea and vomiting) Qty: 10 0RF Print Language: Citizen Of [place]
[2024-03-13 14:46] LABS: MANUAL DIFF FLAG NO
[2024-03-13 14:48] LABS: Basophils Absolute Auto 0.1 X10*3/uL (0.0-0.2); Basophils Percent Auto 0.5 % (0-2); Eosinophils Absolute Auto 0.1 X10*3/uL (0.0-0.4); Eosinophils Percent Auto 0.6 % (0-4); Hematocrit 44.2 % (37.0-47.0); Hemoglobin 14.4 g/dl (12.0-16.0); Imm Gran Abs Auto 0.04 X10*3/uL (0.00-0.03); Imm Gran Pct Auto 0.4 % (0.0-0.4); Lymphocytes Absolute Auto 2.8 X10*3/uL (1.2-4.9); Lymphocytes Percent Auto 28.2 % (20-40); Mean Corpuscular HGB Conc 32.6 g/dl (31.0-35.0); Mean Corpuscular Hemoglobin 25.6 pg (27.0-33.0); Mean Corpuscular Volume 78.6 fL (80.0-98.0); Mean Platelet Volume 11.3 fL (9.4-12.3); Monocytes Absolute Auto 0.4 X10*3/uL (0.1-1.2); Monocytes Percent Auto 3.9 % (2-11); Neutrophils Absolute Auto 6.7 x10*3/uL (2.0-8.3); Neutrophils Percent Auto 66.4 % (45-73); Platelet Count 243 X10*3/uL (160-400); Red Blood Count 5.62 X10*6/uL (4.20-5.50)
[2024-03-13 14:54] LABS: Appearance Urine Turbid; Color Urine Yellow; Glucose Urine UA Negative (Negative); Leukocyte Esterase Urine Negative (Negative); Nitrite Urine Negative (Negative); PH 7.5 (5.0-9.0); Specific Gravity - Urine 1.025 (1.005-1.025); Urine Blood Negative (Negative); Urine Ketones Negative (Negative); Urine Protein Trace mg/dL (Neg-Trace)
[2024-03-13 15:08] LABS: Amylase 77 U/L (28-100); Lactate Dehydrogenase 177 U/L (122-220)
[2024-03-13 15:15] LABS: Alanine Aminotransferase 25 U/L (0-31); Albumin Level 5.1 g/dL (3.5-5.0); Alkaline Phosphatase 160 U/L (39-117); Anion Gap 13 (12-20); Aspartate Amino Transferase 25 U/L (5-31); Bilirubin Total 0.3 mg/dL (0.0-1.0); Blood Urea Nitrogen 8 mg/dL (9-16); Calcium 10.3 mg/dL (8.4-10.2); Carbon Dioxide 24 mmol/L (22-29); Chloride 108 mmol/L (96-108); Creatinine Clr Calc Pharmacy 88.7; Estimated Glomerular Filt Rate > 60; Ethanol < 10 mg/dL; Glucose Random 121 mg/dL (60-115); Lipase 8 U/L (8-78); Magnesium 2.4 mg/dL (1.6-2.6); Potassium 3.9 mmol/L (3.3-5.1); Sodium 141 mmol/L (135-145); Total Protein 8.6 g/dL (6.5-8.0)
[2024-03-13 15:16] LABS: HCG Quantitative < 2 mIU/mL
[2024-03-13] MEDS: Famotidine/PF 20 MG/2 ML VIAL IVPUSH (15:54)
[2024-03-13] MEDS: Lactated Ringers 1,000 ML 999 ML IV (15:54)
[2024-03-13] MEDS: HYDROmorphone HCl 1 MG/ML SYRINGE IVPUSH (15:54)
[2024-03-13] MEDS: ondansetron HCL 4 MG/2 ML VIAL IVPUSH (15:54)
[2024-03-13] MEDS: iohexoL 350 MG/ML 100 ML INFUS..BTL IV (16:44)
[2024-03-13] MEDS: HYDROmorphone HCl 2 MG/ML VIAL IVPUSH (18:31)
== END 2024-03-13 19:52 | disposition home or self-care (01) ==
PROVIDERS: Registered Nurse Emergency; Emergency Provider Internal Medicine; PCP Family Medicine
DX: R10.10 Upper abdominal pain, unspecified (principal); R11.2 Nausea with vomiting, unspecified; Z79.899 Other long term (current) drug therapy
CPT/HCPCS: 36415; 74177; 80053; 80307; 81003; 82150; 83615; 83690; 83735; 84702; 85025; 96361; 96374; 96375; 96376; 99283; 99284; J1171; J2405; J7120; Q9967

== ENCOUNTER 2024-04-08 01:54 | Emergency (ER) | payer MEDICAID, SELFPAY ==
[2024-04-08 02:05] VITALS: BP 120/90; PULSE 107; RESP 18; TEMP 36.7; O2SAT 99; BMI 20.1
[2024-04-08 02:21] LABS: Basophils Absolute Auto 0.1 X10*3/uL (0.0-0.2); Basophils Percent Auto 0.6 % (0-2); Eosinophils Absolute Auto 0.1 X10*3/uL (0.0-0.4); Hematocrit 38.7 % (37.0-47.0); Hemoglobin 12.3 g/dl (12.0-16.0); Imm Gran Abs Auto 0.01 X10*3/uL (0.00-0.03); Imm Gran Pct Auto 0.1 % (0.0-0.4); Lymphocytes Absolute Auto 1.7 X10*3/uL (1.2-4.9); Lymphocytes Percent Auto 21.7 % (20-40); MANUAL DIFF FLAG NO; Mean Corpuscular HGB Conc 31.8 g/dl (31.0-35.0); Mean Corpuscular Hemoglobin 25.3 pg (27.0-33.0); Mean Corpuscular Volume 79.6 fL (80.0-98.0); Mean Platelet Volume 10.5 fL (9.4-12.3); Monocytes Absolute Auto 0.4 X10*3/uL (0.1-1.2); Monocytes Percent Auto 5.1 % (2-11); Neutrophils Absolute Auto 5.6 x10*3/uL (2.0-8.3); Neutrophils Percent Auto 71.5 % (45-73); Platelet Count 345 X10*3/uL (160-400); Red Blood Count 4.86 X10*6/uL (4.20-5.50); Red Cell Distribution Width 15.9 % (11.0-16.0); White Blood Count 7.8 X10*3/uL (4.8-10.8)
[2024-04-08 02:38] LABS: Alanine Aminotransferase 48 U/L (0-31); Albumin Level 3.9 g/dL (3.5-5.0); Alkaline Phosphatase 149 U/L (39-117); Anion Gap 14 (12-20); Aspartate Amino Transferase 34 U/L (5-31); Bilirubin Total 0.2 mg/dL (0.0-1.0); Blood Urea Nitrogen 4 mg/dL (9-16); Calcium 9.2 mg/dL (8.4-10.2); Carbon Dioxide 22 mmol/L (22-29); Chloride 109 mmol/L (96-108); Creatinine Clr Calc Pharmacy 111.4; Estimated Glomerular Filt Rate > 60; Glucose Random 131 mg/dL (60-115); Lipase < 4 U/L (8-78); Potassium 3.7 mmol/L (3.3-5.1); Sodium 141 mmol/L (135-145); Total Protein 6.7 g/dL (6.5-8.0)
--- NOTE | 2024-04-08 03:51 | PC.NURSE ---
Pt brought to [facility] 2 for treatment assumed care of pt at this time. Endorsing mid abd pain post pancreatic stent placement at [facility], unrelieved with meds at home. N/V/D. Denies fever, denies urinary symptoms. IV access obtained, awaiting primary provider eval, aware of plan of care.
[2024-04-08] MEDS: 0.9 % Sodium Chloride 1,000 ML 999 ML IV (05:02)
[2024-04-08] MEDS: ondansetron HCL 4 MG/2 ML VIAL IVPUSH (05:02)
[2024-04-08] MEDS: HYDROmorphone HCl 1 MG/ML SYRINGE IVPUSH (05:02)
--- NOTE | 2024-04-08 05:07 | PC.NURSE ---
Pt medicated per MAR, plan for transfer to [facility], pt aware of plan of care.
[2024-04-08 05:17] VITALS: BP 121/78; PULSE 87; RESP 16; O2SAT 100
--- NOTE | 2024-04-08 05:28 | ED.ABDPAIN ---
HPI - Abdominal Pain General Chief Complaint: Abdominal Pain Stated Complaint: pancreatic pain Time Seen by Provider: 04/08/24 04:21 Source: patient Mode of arrival: ambulatory Limitations: no limitations History of Present Illness ED Provider: DR. Malik HPI narrative: 28-year-old female s/p pancreatic stent on 03/[address] Abraham at [facility] for pancreatic duct stenosis complicated with pancreatitis and severe pain patient required multiple admission to [facility] in the past, presented today with severe abdominal pain and nausea with vomiting. Related Data Previous Rx's ?Medication ?Instructions ?Recorded heparin (porcine) 25,000 unit/250 25,000 unit (250 mL) continuous IV 09/07/23 mL in 0.45 % sodium chloride IV infusion .Q0M #100 mL soln heparin (porcine) 5,000 unit/mL 3,100 unit (0.62 mL) IVPUSH 09/07/23 injection solution PROTOCOL BOLUS PRN 40 Unit/Kg - Heparin Protocol #100 mL heparin (porcine) 5,000 unit/mL 6,300 unit (1.26 mL) IVPUSH 09/07/23 injection solution PROTOCOL BOLUS PRN 80 Unit/Kg - Heparin Protocol #100 mL hydromorphone 1 mg/mL injection 1 mg IVPUSH Q2H PRN Pain, 09/07/23 syringe Moderate(Pain Scale 4-6) #5 mL lactated Ringers 150 ml IV .per hour 2 days 09/07/23 morphine 15 mg immediate release 15 mg PO Q6H PRN pain #14 tabs 10/18/23 tablet ondansetron 4 mg disintegrating 4 mg PO Q6H PRN nausea and 10/18/23 tablet vomiting #10 tabs Allergies Allergy/AdvReac Type Severity Reaction Status Date / Time No Known Allergies Allergy Verified 04/08/24 02:08 Review of Systems Review of Systems All other systems are reviewed and are negative Constitutional: Reports as per HPI and Reports no additional constitutional complaints Eyes: Reports as per HPI and Reports no additional eye complaints Reports system reviewed and no additional complaints, except as documented Cardiovascular: Reports as per HPI and Reports no additional cardiovascular complaints Respiratory: Reports as per HPI and Reports no additional respiratory complaints Gastrointestinal: Reports as per HPI and Reports no additional gastrointestinal complaints Genitourinary: Reports no additional female genitourinary complaints Musculoskeletal: Reports no additional musculoskeletal complaints Skin/Breast: Reports system reviewed and no additional complaints, except as docu Psychiatric: Reports no additional psychiatric complaints Endocrine: Reports no additional endocrine complaints Hematologic/Lymphatic: Reports no additional hematologic/lymphatic complaints Allergic/Immunologic: Reports no additional allergic/immunologic complaints Reports system reviewed and no additional complaints, except as documented and Reports Abnormal speech present [facility] Past Medical History Medical History Alcohol abuse Necrotizing pancreatitis Benign tumor of breast Alcohol abuse Asthma Anxiety Surgical History No history of previous surgery Social History Social History Household Members: Family Housing: House Do you presently have visiting nurse or other home services: No Alcohol intake: former Patient Tobacco Use Status: Never used Tobacco Smoked in Last 30 Days: No Substance Use Type: Marijuana Advance Directives: No Advance Directives Information Provided: Yes Do you have a plan to hurt others: No Plan Patient : No service: No Physical Exam ED Vital Signs: Vital Signs - 24 hr 04/08/24 02:05 04/08/24 05:17 Temperature 98.1 F Pulse Rate 107 H 87 Respiratory Rate 18 16 Blood Pressure 120/90 H 121/78 Pulse Oximetry 99 100 Oxygen Delivery Method Room Air Room Air BMI result Body Mass Index 20.1 Vital signs have been reviewed and appear to be correct. Blood pressure elevated. Heart rate normal. Respiratory rate normal. Temperature normal. Oxygen saturation normal. Appearance: Alert. Oriented X3. No acute distress. Head: Normal external exam. Normocephalic. Atraumatic. No Garza signs noted. No raccoon eyes noted Eyes: PERRLA. EOMI. Conjunctiva and sclera normal. Eyelids normal. ENT: TM's Normal. Pharynx normal. Uvula midline. Moist mucous membranes. No trismus noted. No drooling noted. No muffled voice noted. Neck: Normal inspection. Neck supple. FROM. No adenopathy. Thyroid Normal. No meningeal signs. No neck mass noted. CVS: Normal heart rate and rhythm. Heart sound normal. No murmurs noted. Pulses normal throughout. Respiratory: No respiratory distress. Painless inspiration. Breath sounds normal. No wheezes/rales/rhonchi noted. Chest nontender. No accessory muscle usage noted or decreased air movement noted. Abdomen: Severe epigastric abdominal tenderness, voluntarily guarding, no rebound tenderness Bowel sounds normal in all 4 quadrants. No distention noted. No organomegaly noted. No visible injury noted. Back: No CVA tenderness. Full range of motion noted. Skin: Skin warm and dry. Normal skin color. Normal skin turgor. No rashes/lesions/lacerations noted. Extremities: No lower extremity edema. Extremities exhibit normal range of motion. Extremities nontender. Neuro: Oriented X 3. Cranial nerve exam: II-XII are grossly intact No motor deficit. No sensory deficit. Reflexes normal. Course Reevaluation(s) Reevaluation #1: S/p pancreatic stent placed by Dr. Abraham at [facility] complicated with multiple admission for acute pancreatitis, the case discussed with Dr. Mynor MCCANN from [facility] who accepted the patient patient will be transferred to the medical service for continuation of care at [facility] accepted by . Time: 06:34 Medical Decision Making Differential Diagnosis Differential Diagnoses: The differential diagnosis associated with the presentation includes (Acute pancreatitis intractable vomiting, electrolyte derangement, severe anemia.) Admission/Observation Consideration of admission/observation: Escalation of care including admission/observation considered Consult Healthcare Provider Management of the patient was discussed with: Hospitalist (dr Cabral) and Assistant Engineer (Dr. Lowe) Lab Data MDM Lab Attestation statement: I reviewed the patient's lab results. 04/08/24 02:17 04/08/24 02:17 Labs: Lab Results 04/08/24 04/08/24 Range/Units 02:17 06:20 WBC 7.8 (4.8-10.8) X10*3/uL RBC 4.86 (4.20-5.50) X10*6/uL Hgb 12.3 (12.0-16.0) g/dl Hct 38.7 (37.0-47.0) % MCV 79.6 L (80.0-98.0) fL MCH 25.3 L (27.0-33.0) pg MCHC 31.8 (31.0-35.0) g/dl RDW 15.9 (11.0-16.0) % Plt Count 345 D (160-400) X10*3/uL MPV 10.5 (9.4-12.3) fL Immature Gran % (Auto) 0.1 (0.0-0.4) % Neut % (Auto) 71.5 (45-73) % Lymph % (Auto) 21.7 (20-40) % [place] % (Auto) 5.1 (2-11) % Eos % (Auto) 1.0 (0-4) % Baso % (Auto) 0.6 (0-2) % Lymph # (Auto) 1.7 (1.2-4.9) X10*3/uL [place] # (Auto) 0.4 (0.1-1.2) X10*3/uL Eos # (Auto) 0.1 (0.0-0.4) X10*3/uL Baso # (Auto) 0.1 (0.0-0.2) X10*3/uL Abs Immat Gran (auto) 0.01 (0.00-0.03) X10*3/uL Absolute Neuts (auto) 5.6 (2.0-8.3) x10*3/uL Absolute Nucleated RBC 0.000 (0.0-0.012) X10*3/uL Nucleated RBC % (auto) 0.0 (0.0-0.2) /100WBC Sodium 141 (135-145) mmol/L Potassium 3.7 (3.3-5.1) mmol/L Chloride 109 H (96-108) mmol/L Carbon Dioxide 22 (22-29) mmol/L Anion Gap 14 (12-20) BUN 4 L (9-16) mg/dL Creatinine 0.63 (0.5-1.4) mg/dL Estim Creat Clear Calc 111.4 Estimated GFR > 60 Random Glucose 131 H (60-115) mg/dL Calcium 9.2 D (8.4-10.2) mg/dL Total Bilirubin 0.2 (0.0-1.0) mg/dL AST 34 H (5-31) U/L ALT 48 H (0-31) U/L Alkaline Phosphatase 149 H (39-117) U/L Total Protein 6.7 (6.5-8.0) g/dL Albumin 3.9 (3.5-5.0) g/dL Lipase < 4 L (8-78) U/L Urine Color Yellow Urine Appearance Clear Urine pH >= 9.0 (5.0-9.0) Ur Specific [place] 1.015 (1.005-1.025) Urine Protein Negative (Neg-Trace) mg/dL Urine Glucose (UA) Negative (Negative) mg/dL Urine Ketones Negative (Negative) mg/dL Urine Blood Negative (Negative) Urine Nitrite Negative (Negative) Ur Leukocyte Esterase Negative (Negative) Urine Test NEGATIVE (NEGATIVE) Medications Administered Discontinued Medications Generic Name Dose Route Start Last Admin Trade Name Freq PRN Reason Stop Dose Admin Hydromorphone HCl 1 mg 04/08/24 04:40 04/08/24 05:02 Hydromorphone Hcl 1 Mg/Ml Syringe IVPUSH 04/08/24 04:41 1 mg ONCE ONE Administration Protocol Sodium Chloride 1,000 mls @ 999 mls/hr 04/08/24 04:40 04/08/24 05:02 Ns IV 04/08/24 05:40 999 mls/hr .Q1H1M ONE Administration Ondansetron HCl 4 mg 04/08/24 04:40 04/08/24 05:02 Ondansetron Hcl 4 Mg/2 Ml Vial IVPUSH 04/08/24 04:41 4 mg ONCE ONE Administration Discharge Plan Discharge Clinical Impression: Abdominal pain Patient Disposition: [facility] Transfer Details: to medical floor Prescriptions: No Action heparin (porcine) 5,000 unit/mL Solution 6,300 unit IVPUSH PROTOCOL BOLUS PRN (Reason: 80 Unit/Kg - Heparin Protocol) Qty: 100 0RF heparin (porcine) 5,000 unit/mL Solution 3,100 unit IVPUSH PROTOCOL BOLUS PRN (Reason: 40 Unit/Kg - Heparin Protocol) Qty: 100 0RF hydromorphone 1 mg/mL Syringe 1 mg IVPUSH Q2H PRN (Reason: Pain, Moderate(Pain Scale 4-6)) Qty: 5 0RF Protocol: Hold for RR < HOLD and contact provider for RR < (bpm): 12 Rx Instructions: Partial Fill upon patient request. heparin(porcine) in 0.45% NaCl 25,000 unit/250 mL Parenteral Solution 25,000 unit continuous IV infusion .Q0M Qty: 100 0RF lactated Ringers Parenteral Solution 150 ml IV .per hour 2 Days Rx Instructions: until hemodynamically stable morphine 15 mg tablet 15 mg PO Q6H PRN (Reason: pain) Qty: 14 0RF Rx Instructions: Partial Fill upon patient request. ondansetron 4 mg tablet,disintegrating 4 mg PO Q6H PRN (Reason: nausea and vomiting) Qty: 10 0RF Print Language: [place]
[2024-04-08 06:27] LABS: UPreg QC Valid YES
[2024-04-08 06:28] LABS: Appearance Urine Clear; Color Urine Yellow; Glucose Urine UA Negative (Negative); Leukocyte Esterase Urine Negative (Negative); Nitrite Urine Negative (Negative); PH >= 9.0 (5.0-9.0); Specific Gravity - Urine 1.015 (1.005-1.025); Urine Blood Negative (Negative); Urine Ketones Negative (Negative); Urine Pregnancy NEGATIVE (NEGATIVE); Urine Protein Negative (Neg-Trace)
== END 2024-04-08 07:28 | disposition short-term general hospital (02) ==
PROVIDERS: Emergency Provider Emergency Medicine
DX: R10.2 Pelvic and perineal pain (principal); R11.2 Nausea with vomiting, unspecified; Z79.899 Other long term (current) drug therapy
CPT/HCPCS: 36415; 80053; 81003; 81025; 83690; 85025; 96361; 96374; 96375; 99284; 99285; J1171; J2405

== ENCOUNTER 2024-04-17 07:19 | Emergency (ER) | payer MEDICAID, SELFPAY ==
[2024-04-17 07:25] VITALS: BP 128/76; PULSE 91; RESP 20; TEMP 36.9; O2SAT 98; BMI 19.7
[2024-04-17 07:38] LABS: MANUAL DIFF FLAG NO
[2024-04-17 07:40] LABS: Basophils Absolute Auto 0.1 X10*3/uL (0.0-0.2); Basophils Percent Auto 0.8 % (0-2); Eosinophils Absolute Auto 0.1 X10*3/uL (0.0-0.4); Eosinophils Percent Auto 0.5 % (0-4); Hematocrit 39.9 % (37.0-47.0); Hemoglobin 13.1 g/dl (12.0-16.0); Imm Gran Abs Auto 0.03 X10*3/uL (0.00-0.03); Imm Gran Pct Auto 0.3 % (0.0-0.4); Lymphocytes Absolute Auto 2.1 X10*3/uL (1.2-4.9); Lymphocytes Percent Auto 20.1 % (20-40); Mean Corpuscular HGB Conc 32.8 g/dl (31.0-35.0); Mean Corpuscular Hemoglobin 26.1 pg (27.0-33.0); Mean Corpuscular Volume 79.6 fL (80.0-98.0); Mean Platelet Volume 10.9 fL (9.4-12.3); Monocytes Absolute Auto 0.5 X10*3/uL (0.1-1.2); Neutrophils Absolute Auto 7.7 x10*3/uL (2.0-8.3); Neutrophils Percent Auto 73.3 % (45-73); Platelet Count 255 X10*3/uL (160-400); Red Blood Count 5.01 X10*6/uL (4.20-5.50); Red Cell Distribution Width 16.2 % (11.0-16.0); White Blood Count 10.5 X10*3/uL (4.8-10.8)
[2024-04-17 07:45] VITALS: BP 122/81; PULSE 77; RESP 18; TEMP 36.7; O2SAT 100
[2024-04-17 07:58] LABS: Alanine Aminotransferase 42 U/L (0-31); Albumin Level 4.2 g/dL (3.5-5.0); Alkaline Phosphatase 152 U/L (39-117); Anion Gap 13 (12-20); Aspartate Amino Transferase 39 U/L (5-31); Bilirubin Total 0.3 mg/dL (0.0-1.0); Blood Urea Nitrogen 10 mg/dL (9-16); Calcium 9.4 mg/dL (8.4-10.2); Carbon Dioxide 22 mmol/L (22-29); Chloride 107 mmol/L (96-108); Creatinine Clr Calc Pharmacy 89.3; Estimated Glomerular Filt Rate > 60; Glucose Random 133 mg/dL (60-115); Lipase 7 U/L (8-78); Sodium 138 mmol/L (135-145); Total Protein 7.1 g/dL (6.5-8.0)
[2024-04-17 07:59] LABS: Appearance Urine Cloudy; Color Urine Yellow; Glucose Urine UA Negative (Negative); Leukocyte Esterase Urine Negative (Negative); Nitrite Urine Negative (Negative); Specific Gravity - Urine 1.025 (1.005-1.025); Urine Blood Negative (Negative); Urine Ketones Negative (Negative); Urine Protein Negative (Neg-Trace)
[2024-04-17 08:01] LABS: UPreg QC Valid YES; Urine Pregnancy NEGATIVE (NEGATIVE)
[2024-04-17 08:09] LABS: Amphetamine Screen Urine Not Detected (Not Detect); Barbiturates, Urine Not Detected (Not Detect); Benzodiazepines Screen Urine Not Detected (Not Detect); Buprenorphine Scr Not Detected (Not Detect); Cannabinoid Screen Urine POSITIVE (Not Detect); Cocaine Screen Urine Not Detected (Not Detect); Fentanyl, urine Not Detected (Not Detect); Methadone Screen, Urine Not Detected (Not Detect); Opiate Screen Urine POSITIVE (Not Detect); Oxycodone Screen Urine Not Detected (Not Detect); Phencyclidine Screen Urine Not Detected (Not Detect)
[2024-04-17 10:08] VITALS: BP 116/82; PULSE 71; RESP 17; TEMP 36.8; O2SAT 100
--- NOTE | 2024-04-17 11:41 | ED.ABDPAIN ---
HPI - Abdominal Pain General Chief Complaint: Abdominal Pain Stated Complaint: pancreas problem Time Seen by Provider: 04/17/24 07:54 Source: patient History of Present Illness ED Provider: Eduardo MOROCHO narrative: 28-year-old female who arrives with history of necrotizing pancreatitis in September, she has recently undergone as stenting of her pancreas in [facility] on 03/31 and states that she has continued to have pain afterwards. She is followed by Dr. Lassiter who is her primary care doctor and petroleum inspector was Dr. Sheldon and Dr. Abraham. Related Data Previous Rx's ?Medication ?Instructions ?Recorded heparin (porcine) 25,000 unit/250 25,000 unit (250 mL) continuous IV 09/07/23 mL in 0.45 % sodium chloride IV infusion .Q0M #100 mL soln heparin (porcine) 5,000 unit/mL 3,100 unit (0.62 mL) IVPUSH 09/07/23 injection solution PROTOCOL BOLUS PRN 40 Unit/Kg - Heparin Protocol #100 mL heparin (porcine) 5,000 unit/mL 6,300 unit (1.26 mL) IVPUSH 09/07/23 injection solution PROTOCOL BOLUS PRN 80 Unit/Kg - Heparin Protocol #100 mL hydromorphone 1 mg/mL injection 1 mg IVPUSH Q2H PRN Pain, 09/07/23 syringe Moderate(Pain Scale 4-6) #5 mL lactated Ringers 150 ml IV .per hour 2 days 09/07/23 morphine 15 mg immediate release 15 mg PO Q6H PRN pain #14 tabs 10/18/23 tablet ondansetron 4 mg disintegrating 4 mg PO Q6H PRN nausea and 10/18/23 tablet vomiting #10 tabs omeprazole 20 mg capsule,delayed 20 mg PO DAILY #30 caps 04/17/24 release Allergies Allergy/AdvReac Type Severity Reaction Status Date / Time No Known Allergies Allergy Verified 04/17/24 07:26 Review of Systems Review of Systems Pertinent positives and negatives as stated in HPI PMFSH Past Medical History Medical History Alcohol abuse Necrotizing pancreatitis Benign tumor of breast Alcohol abuse Asthma Anxiety Surgical History No history of previous surgery Social History Social History Household Members: Family Housing: House Do you presently have visiting nurse or other home services: No Alcohol intake: former Patient Tobacco Use Status: Never used Tobacco Smoked in Last 30 Days: No Use of substances other than those prescribed or required for medical reasons: Yes Substance Use Type: Marijuana Advance Directives: No Advance Directives Information Provided: Yes Patient : No service: No Physical Exam ED Vital Signs: Vital Signs - 24 hr 04/17/24 07:25 04/17/24 07:45 04/17/24 10:08 Temperature 98.5 F 98.1 F 98.3 F Pulse Rate 91 77 71 Respiratory Rate 20 18 17 Blood Pressure 128/76 122/81 116/82 Pulse Oximetry 98 100 100 Oxygen Delivery Method Room Air Room Air Room Air BMI result Body Mass Index 19.7 VITAL SIGNS: Reviewed. GENERAL: Well developed, well nourished, in no acute distress. HEAD: Normocephalic/atraumatic EYES: PERRLA, EOMI EARS: Ext canals without abnormality NOSE: Nares patent bilateral OROPHARYNX: no oral lesions noted, posterior pharynx clear NECK: Supple, no adenopathy LUNGS: Normal breath sounds. No adventitious sounds or accessory muscle use. SpO2<100> CARDIOVASCULAR: Regular rate and rhythm without noted murmurs ABDOMEN: Soft, non-tender, non-distended with bowel sounds. MUSCULOSKELETAL: No tenderness, deformities, or effusions noted on gross inspection. EXTREMITIES: No cyanosis, clubbing or edema. SKIN: Inspection of the skin reveals no rashes NEUROLOGIC: Alert and oriented x 4. Strength and sensation to light touch were grossly intact x 4. Medical Decision Making Medical Decision Making MDM Narrative: 28-year-old female with history and clinical presentation, DX: Chronic pain uncontrolled, will reach out to Dr. Lassiter and Dr. Scherer for better clarification regarding patient's persistent epigastric pain it does sound like she has been on chronic morphine which they recently decreased proximally 2 months ago and she states that the pain has not been well controlled since her procedure on 03/31. Patient otherwise has no constitutional symptoms but is requesting pain medication. 1240: I spoke with Dr Scherer and states he couldn't get in and cause post-ERCP pancreatitis, recommended to PCP to refer for pain management, call GI office for appointment and will refer to pancreatic specialist for further evaluation because no abnormalities were noted by the GI team. I reviewed and interpreted all investigations there is no evidence of acute infection, anemia, thrombocytopenia. There is no demonstrate KIAN/electrolyte derangements and patient's liver enzymes are chronically stable and there is no elevation of the lipase. I did review CT scan from 04/13 which was negative for acute pancreatitis, patient is otherwise afebrile, no tachycardia or hypotension noted. Patient was provided with her prescribed morphine as well as a GI cocktail, the latter was at her request as she reports significant gastritis. She is otherwise discharged and will cc a copy of this note over to Dr. Lassiter as well as Dr. Scherer. Differential Diagnosis Differential Diagnoses: The differential diagnosis associated with the presentation includes See above Admission/Observation Consideration of admission/observation: Escalation of care including admission/observation considered Patient not meeting inpatient level of care. Consult Healthcare Provider Management of the patient was discussed with: Racetrack Steward See above Lab Data MDM Lab Attestation statement: I reviewed the patient's lab results. See above 04/17/24 07:33 04/17/24 07:33 Labs: Lab Results 04/17/24 04/17/24 Range/Units 07:33 07:51 WBC 10.5 (4.8-10.8) X10*3/uL RBC 5.01 (4.20-5.50) X10*6/uL Hgb 13.1 (12.0-16.0) g/dl Hct 39.9 (37.0-47.0) % MCV 79.6 L (80.0-98.0) fL MCH 26.1 L (27.0-33.0) pg MCHC 32.8 (31.0-35.0) g/dl RDW 16.2 H (11.0-16.0) % Plt Count 255 D (160-400) X10*3/uL MPV 10.9 (9.4-12.3) fL Immature Gran % (Auto) 0.3 (0.0-0.4) % Neut % (Auto) 73.3 H (45-73) % Lymph % (Auto) 20.1 (20-40) % [place]cculloch % (Auto) 5.0 (2-11) % Eos % (Auto) 0.5 (0-4) % Baso % (Auto) 0.8 (0-2) % Lymph # (Auto) 2.1 (1.2-4.9) X10*3/uL [place] # (Auto) 0.5 (0.1-1.2) X10*3/uL Eos # (Auto) 0.1 (0.0-0.4) X10*3/uL Baso # (Auto) 0.1 (0.0-0.2) X10*3/uL Abs Immat Gran (auto) 0.03 (0.00-0.03) X10*3/uL Absolute Neuts (auto) 7.7 (2.0-8.3) x10*3/uL Absolute Nucleated RBC 0.000 (0.0-0.012) X10*3/uL Nucleated RBC % (auto) 0.0 (0.0-0.2) /100WBC Sodium 138 (135-145) mmol/L Potassium 4.0 (3.3-5.1) mmol/L Chloride 107 (96-108) mmol/L Carbon Dioxide 22 (22-29) mmol/L Anion Gap 13 (12-20) BUN 10 (9-16) mg/dL Creatinine 0.77 (0.5-1.4) mg/dL Estim Creat Clear Calc 89.3 Estimated GFR > 60 Random Glucose 133 H (60-115) mg/dL Calcium 9.4 (8.4-10.2) mg/dL Total Bilirubin 0.3 (0.0-1.0) mg/dL AST 39 H (5-31) U/L ALT 42 H (0-31) U/L Alkaline Phosphatase 152 H (39-117) U/L Total Protein 7.1 (6.5-8.0) g/dL Albumin 4.2 (3.5-5.0) g/dL Lipase 7 L (8-78) U/L Urine Color Yellow Urine Appearance Cloudy Urine pH 7.0 (5.0-9.0) Ur Specific Sawyer 1.025 (1.005-1.025) Urine Protein Negative (Neg-Trace) mg/dL Urine Glucose (UA) Negative (Negative) mg/dL Urine Ketones Negative (Negative) mg/dL Urine Blood Negative (Negative) Urine Nitrite Negative (Negative) Ur Leukocyte Esterase Negative (Negative) Urine Test NEGATIVE (NEGATIVE) Urine Opiates Screen POSITIVE H (Not Detect) Ur Buprenorphine Scrn Not Detected (Not Detect) ng/mL Ur Oxycodone Screen Not Detected (Not Detect) ng/mL Urine Methadone Screen Not Detected (Not Detect) ng/mL Urine Fentanyl Screen Not Detected (Not Detect) Ur Barbiturates Screen Not Detected (Not Detect) Ur Phencyclidine Scrn Not Detected (Not Detect) Ur Amphetamines Screen Not Detected (Not Detect) U Benzodiazepines Scrn Not Detected (Not Detect) Urine Cocaine Screen Not Detected (Not Detect) U Marijuana (THC) Screen POSITIVE H (Not Detect) External Record Review External record reviewed: Prior outpatient labs, Prior outpatient radiology and Outside ED record Medications Administered Generic Name Dose Route Start Last Admin Trade Name Freq PRN Reason Stop Dose Admin Sodium Chloride 1,000 mls @ 999 mls/hr 04/17/24 11:45 04/17/24 12:22 Ns IV 04/17/24 12:45 999 mls/hr .Q1H1M TRUONG Administration Discontinued Medications Generic Name Dose Route Start Last Admin Trade Name Freq PRN Reason Stop Dose Admin Al Hydroxide/Mg Hydroxide 30 ml 04/17/24 12:19 04/17/24 12:30 Magnesium Hydrox/Alum Hydrox 30 Ml Oral.Susp PO 04/17/24 12:20 30 ml ONCE ONE Administration Lidocaine HCl 10 ml 04/17/24 12:19 04/17/24 12:30 Lidocaine Hcl Viscous 2 % 15 Ml Solution MUCOUS MEM 04/17/24 12:20 10 ml ONCE ONE Administration Morphine Sulfate 15 mg 04/17/24 12:19 04/17/24 12:29 Morphine Sulfate Immed Release 15 Mg Tablet PO 04/17/24 12:20 15 mg ONCE ONE Administration Sucralfate 1 gm 04/17/24 12:19 04/17/24 12:30 Sucralfate Oral Suspension 1 Gm/10 Ml Oral.Susp PO 04/17/24 12:20 1 gm ONCE ONE Administration Critical Care Time Critical Care Time Critical Care Time: Yes Total Critical Care Time: 60 Attestation: I personally attest to this time spent taking care of the patient. Discharge Plan Discharge Clinical Impression: Gastritis, Chronic epigastric pain, Elevated liver transaminase level Patient Disposition: Home, Self-Care Instructions: Gastritis (ED), Diet for Stomach Ulcers and Gastritis (ED), Epigastric Pain (ED) Additional Instructions: Resume all home medications as prescribed. I discussed your situation with your GI doctor, Dr. Scherer, who recommends that you call the office today to set up an appointment for re-evaluation and he will be referring you to a pancreatic specialist for further evaluation. You need to follow-up with Dr. Lassiter, your primary care doctor, as it is also recommended that you may need to be further evaluated for pain management. Please make those phone calls today. You are also receiving a prescription for omeprazole to help with the gastritis. Your workup was otherwise negative today. Prescriptions: New omeprazole 20 mg capsule,delayed release(DR/EC) 20 mg PO DAILY Qty: 30 0RF No Action heparin (porcine) 5,000 unit/mL Solution 6,300 unit IVPUSH PROTOCOL BOLUS PRN (Reason: 80 Unit/Kg - Heparin Protocol) Qty: 100 0RF heparin (porcine) 5,000 unit/mL Solution 3,100 unit IVPUSH PROTOCOL BOLUS PRN (Reason: 40 Unit/Kg - Heparin Protocol) Qty: 100 0RF hydromorphone 1 mg/mL Syringe 1 mg IVPUSH Q2H PRN (Reason: Pain, Moderate(Pain Scale 4-6)) Qty: 5 0RF Protocol: Hold for RR < HOLD and contact provider for RR < (bpm): 12 Rx Instructions: Partial Fill upon patient request. heparin(porcine) in 0.45% NaCl 25,000 unit/250 mL Parenteral Solution 25,000 unit continuous IV infusion .Q0M Qty: 100 0RF lactated Ringers Parenteral Solution 150 ml IV .per hour 2 Days Rx Instructions: until hemodynamically stable morphine 15 mg tablet 15 mg PO Q6H PRN (Reason: pain) Qty: 14 0RF Rx Instructions: Partial Fill upon patient request. ondansetron 4 mg tablet,disintegrating 4 mg PO Q6H PRN (Reason: nausea and vomiting) Qty: 10 0RF Referrals: Ibeth Lassiter MD [Primary Care Provider] - Print Language: Colombian
[2024-04-17] MEDS: 0.9 % Sodium Chloride 1,000 ML 999 ML IV (12:22)
[2024-04-17] MEDS: Morphine Sulfate Immed Release 15 MG TABLET PO (12:29)
[2024-04-17] MEDS: Lidocaine HCl Viscous 2 % 15 ML SOLUTION 10 ML MUCOUS MEM (12:30)
[2024-04-17] MEDS: Sucralfate Oral Suspension 1 GM/10 ML ORAL.SUSP PO (12:30)
[2024-04-17] MEDS: Magnesium Hydrox/Alum Hydrox 30 ML ORAL.SUSP PO (12:30)
[2024-04-17 13:09] VITALS: BP 116/82; PULSE 71; RESP 17; TEMP 36.8; O2SAT 100
== END 2024-04-17 13:10 | disposition home or self-care (01) ==
PROVIDERS: Emergency Provider Student in an Organized Health Care Education/Training Program; PCP Family Medicine
DX: R10.9 Unspecified abdominal pain (principal); G89.29 Other chronic pain; K29.70 Gastritis, unspecified, without bleeding; R10.13 Epigastric pain; R74.01 Elevation of levels of liver transaminase levels; Z79.899 Other long term (current) drug therapy; Z51.81 Encounter for therapeutic drug level monitoring
CPT/HCPCS: 36415; 80053; 80307; 81003; 81025; 83690; 85025; 99283; 99284

== ENCOUNTER 2024-05-08 23:11 | Emergency (ER) | payer MEDICAID, SELFPAY ==
--- NOTE | ~2024-05-08 | CT_ITS ---
EXAMINATION: CT ABDOMEN AND PELVIS WITH CONTRAST CLINICAL INFORMATION: Pain and distention. History of pancreatitis. COMPARISON: January 12, 2024 TECHNIQUE: Multidetector volumetric images were obtained from the superior aspect of the liver through the pubic symphysis following administration 85 mL of Omnipaque 350 intravenous contrast. Sagittal and coronal reformatted images were obtained on the technologist's workstation. Oral contrast: No This CT examination was performed using dose optimization techniques as appropriate, variously including the following: *Automated exposure control *Adjustment of mA and/or kV according to patient size (this includes techniques or standardized protocols for targeted exams where dose is matched to indication/reason for exam; i.e. extremities or head) *Use of iterative reconstruction technique DLP: 412 mGy-cm FINDINGS: LUNG BASES: The visualized lung bases are unremarkable. LIVER, GALLBLADDER, AND BILIARY TREE: The liver is normal in size, shape, and attenuation. There is no focal liver lesion. There is mild intrahepatic biliary air. A common bile duct stent is in place. The gallbladder is unremarkable with no evidence of radiopaque gallstones, gallbladder wall thickening, or obvious pericholecystic inflammatory changes. PANCREAS: Mild pancreatic duct dilatation. The pancreas is otherwise grossly within normal limits. SPLEEN: Unremarkable. ADRENAL GLANDS: Unremarkable. KIDNEYS AND URETERS: The kidneys are normal in size, shape, and attenuation. No hydronephrosis, hydroureter, or calculi seen. No perinephric stranding. BLADDER: Unremarkable. GASTROINTESTINAL TRACT: There is significant amount of retained stool noted throughout the colon. There are also prominent fluid-filled possibly mildly thickened small bowel loops throughout. The appendix is not identified. ABDOMINAL WALL: No significant hernia is appreciated. LYMPH NODES: Normal. VASCULAR: Unremarkable. PELVIC VISCERA: Unremarkable. OSSEOUS STRUCTURES: Unremarkable. CT/CT abdomen pelvis w IV con IMPRESSION: 1. Significant amount of retained stool noted throughout the colon. Prominent fluid-filled small bowel loops throughout. No evidence for obstruction. 2. Common bile duct stent in place. Mild intrahepatic biliary air. Mild pancreatic duct dilatation. The pancreas is otherwise grossly within normal limits. Fleischner guidelines were followed. Electronically signed by: Akil Austin MD 05/09/2024 02:37 [place] [facility] [place]
[2024-05-08 23:20] VITALS: BP 120/84; PULSE 103; O2SAT 98
[2024-05-08 23:25] VITALS: BP 110/53; PULSE 103; RESP 16; TEMP 36.7; O2SAT 98; BMI 23.3
--- NOTE | 2024-05-08 23:59 | ED.ABDPAIN ---
HPI - Abdominal Pain General Chief Complaint: Abdominal Pain Stated Complaint: stomach pains/bloating Time Seen by Provider: 05/08/24 23:20 Source: patient Mode of arrival: ambulatory Limitations: no limitations History of Present Illness ED Provider: DR. Malik HPI narrative: 28-year-old female came in for evaluation of 1 day history of abdominal pain that it wax and wane patient feels abdominal distension and bloating associated with nausea but no vomiting. No fever, no chills, normal bowel movements with no diarrhea, no blood in the stool. No dysuria, no frequency urination, no blood in the urine. Related Data Previous Rx's ?Medication ?Instructions ?Recorded heparin (porcine) 25,000 unit/250 25,000 unit (250 mL) continuous IV 09/07/23 mL in 0.45 % sodium chloride IV infusion .Q0M #100 mL soln heparin (porcine) 5,000 unit/mL 3,100 unit (0.62 mL) IVPUSH 09/07/23 injection solution PROTOCOL BOLUS PRN 40 Unit/Kg - Heparin Protocol #100 mL heparin (porcine) 5,000 unit/mL 6,300 unit (1.26 mL) IVPUSH 09/07/23 injection solution PROTOCOL BOLUS PRN 80 Unit/Kg - Heparin Protocol #100 mL hydromorphone 1 mg/mL injection 1 mg IVPUSH Q2H PRN Pain, 09/07/23 syringe Moderate(Pain Scale 4-6) #5 mL lactated Ringers 150 ml IV .per hour 2 days 09/07/23 morphine 15 mg immediate release 15 mg PO Q6H PRN pain #14 tabs 10/18/23 tablet ondansetron 4 mg disintegrating 4 mg PO Q6H PRN nausea and 10/18/23 tablet vomiting #10 tabs omeprazole 20 mg capsule,delayed 20 mg PO DAILY #30 caps 04/17/24 release Allergies Allergy/AdvReac Type Severity Reaction Status Date / Time No Known Allergies Allergy Verified 05/08/24 23:25 Review of Systems Review of Systems All other systems are reviewed and are negative Constitutional: Reports as per HPI and Reports no additional constitutional complaints Eyes: Reports as per HPI and Reports no additional eye complaints Reports system reviewed and no additional complaints, except as documented Cardiovascular: Reports as per HPI and Reports no additional cardiovascular complaints Respiratory: Reports as per HPI and Reports no additional respiratory complaints Gastrointestinal: Reports as per HPI and Reports no additional gastrointestinal complaints Genitourinary: Reports no additional female genitourinary complaints Musculoskeletal: Reports no additional musculoskeletal complaints Skin/Breast: Reports system reviewed and no additional complaints, except as docu Psychiatric: Reports no additional psychiatric complaints Endocrine: Reports no additional endocrine complaints Hematologic/Lymphatic: Reports no additional hematologic/lymphatic complaints Allergic/Immunologic: Reports no additional allergic/immunologic complaints Reports system reviewed and no additional complaints, except as documented and Reports Abnormal speech present [facility] Past Medical History Medical History Alcohol abuse Necrotizing pancreatitis Benign tumor of breast Alcohol abuse Asthma Anxiety Surgical History No history of previous surgery Social History Social History Household Members: Family Housing: House Do you presently have visiting nurse or other home services: No Alcohol intake: former Patient Tobacco Use Status: Never used Tobacco Substance Use Type: Marijuana Advance Directives: No Advance Directives Information Provided: Yes Do you have a plan to hurt others: No Plan service: No Physical Exam ED Vital Signs: Vital Signs - 24 hr 05/08/24 23:25 05/09/24 01:26 Temperature 98.0 F 98.0 F Pulse Rate 103 H 100 Respiratory Rate 16 18 Blood Pressure 110/53 L 106/56 L Pulse Oximetry 98 96 Oxygen Delivery Method Room Air Room Air BMI result Body Mass Index 23.3 Vital signs have been reviewed and appear to be correct. Blood pressure elevated. Heart rate normal. Respiratory rate normal. Temperature normal. Oxygen saturation normal. Appearance: Alert. Oriented X3. No acute distress. Head: Normal external exam. Normocephalic. Atraumatic. No Garza signs noted. No raccoon eyes noted Eyes: PERRLA. EOMI. Conjunctiva and sclera normal. Eyelids normal. ENT: TM's Normal. Pharynx normal. Uvula midline. Moist mucous membranes. No trismus noted. No drooling noted. No muffled voice noted. Neck: Normal inspection. Neck supple. FROM. No adenopathy. Thyroid Normal. No meningeal signs. No neck mass noted. CVS: Normal heart rate and rhythm. Heart sound normal. No murmurs noted. Pulses normal throughout. Respiratory: No respiratory distress. Painless inspiration. Breath sounds normal. No wheezes/rales/rhonchi noted. Chest nontender. No accessory muscle usage noted or decreased air movement noted. Abdomen: Soft and nontender. Bowel sounds normal in all 4 quadrants. No distention noted. No organomegaly noted. No visible injury noted. Back: No CVA tenderness. Full range of motion noted. Skin: Skin warm and dry. Normal skin color. Normal skin turgor. No rashes/lesions/lacerations noted. Extremities: No lower extremity edema. Extremities exhibit normal range of motion. Extremities nontender. Neuro: Oriented X 3. Cranial nerve exam: II-XII are grossly intact No motor deficit. No sensory deficit. Reflexes normal. Course Reevaluation(s) Reevaluation #1: 28-year-old female history of necrotizing pancreatitis awaiting for CT abdomen pelvis signed out to Dr. Chiu. Time: 01:39 Medical Decision Making Differential Diagnosis Differential Diagnoses: The differential diagnosis associated with the presentation includes (Acute on chronic pancreatitis, pseudo cyst, necrotizing pancreatitis, gastritis, kidney stone, appendicitis, colitis, severe anemia, electrolyte derangement.) Admission/Observation Consideration of admission/observation: Escalation of care including admission/observation considered Lab Data MDM Lab Attestation statement: I reviewed the patient's lab results. 05/09/24 00:15 05/09/24 00:15 Labs: Lab Results 05/09/24 Range/Units 00:15 WBC 7.4 (4.8-10.8) X10*3/uL RBC 4.00 L D (4.20-5.50) X10*6/uL Hgb 10.3 L D (12.0-16.0) g/dl Hct 32.0 L (37.0-47.0) % MCV 80.0 (80.0-98.0) fL MCH 25.8 L (27.0-33.0) pg MCHC 32.2 (31.0-35.0) g/dl RDW 15.3 (11.0-16.0) % Plt Count 271 (160-400) X10*3/uL MPV 10.5 (9.4-12.3) fL Immature Gran % (Auto) 0.3 (0.0-0.4) % Neut % (Auto) 49.5 (45-73) % Lymph % (Auto) 39.4 (20-40) % [place] % (Auto) 7.1 (2-11) % Eos % (Auto) 3.0 (0-4) % Baso % (Auto) 0.7 (0-2) % Lymph # (Auto) 2.9 (1.2-4.9) X10*3/uL [place] # (Auto) 0.5 (0.1-1.2) X10*3/uL Eos # (Auto) 0.2 (0.0-0.4) X10*3/uL Baso # (Auto) 0.1 (0.0-0.2) X10*3/uL Abs Immat Gran (auto) 0.02 (0.00-0.03) X10*3/uL Absolute Neuts (auto) 3.7 (2.0-8.3) x10*3/uL Absolute Nucleated RBC 0.000 (0.0-0.012) X10*3/uL Nucleated RBC % (auto) 0.0 (0.0-0.2) /100WBC Sodium 141 (135-145) mmol/L Potassium 3.7 (3.3-5.1) mmol/L Chloride 111 H (96-108) mmol/L Carbon Dioxide 23 (22-29) mmol/L Anion Gap 11 L (12-20) BUN 7 L (9-16) mg/dL Creatinine 0.70 (0.5-1.4) mg/dL Estim Creat Clear Calc 103.3 Estimated GFR > 60 Random Glucose 146 H (60-115) mg/dL Lactic Acid 2.2 H* (0.5-2.0) mmol/L Calcium 8.4 D (8.4-10.2) mg/dL Total Bilirubin 0.1 (0.0-1.0) mg/dL Direct Bilirubin < 0.2 (0.0-0.5) mg/dL AST 43 H (5-31) U/L ALT 57 H (0-31) U/L Alkaline Phosphatase 120 H (39-117) U/L Troponin I High Sens < 2.7 (<3.5-17.0) ng/L Total Protein 6.2 L (6.5-8.0) g/dL Albumin 3.8 (3.5-5.0) g/dL Lipase 7 L (8-78) U/L Beta HCG, Quant < 2 mIU/mL Ethyl Alcohol < 10 mg/dL Medications Administered Discontinued Medications Generic Name Dose Route Start Last Admin Trade Name Freq PRN Reason Stop Dose Admin Iohexol 85 ml 05/09/24 01:28 05/09/24 01:29 Iohexol 350 Mg/Ml 100 Ml Infus..Btl IV 05/09/24 01:29 85 ml ONCE ONE Administration Morphine Sulfate 2 mg 05/09/24 00:35 05/09/24 00:46 Morphine Sulfate 2 Mg/Ml Cartridge IVPUSH 05/09/24 00:36 2 mg ONCE ONE Administration Protocol Discharge Plan Discharge Clinical Impression: Abdominal pain, Chronic pancreatitis Patient Disposition: Still a Patient Prescriptions: No Action heparin (porcine) 5,000 unit/mL Solution 6,300 unit IVPUSH PROTOCOL BOLUS PRN (Reason: 80 Unit/Kg - Heparin Protocol) Qty: 100 0RF heparin (porcine) 5,000 unit/mL Solution 3,100 unit IVPUSH PROTOCOL BOLUS PRN (Reason: 40 Unit/Kg - Heparin Protocol) Qty: 100 0RF hydromorphone 1 mg/mL Syringe 1 mg IVPUSH Q2H PRN (Reason: Pain, Moderate(Pain Scale 4-6)) Qty: 5 0RF Protocol: Hold for RR < HOLD and contact provider for RR < (bpm): 12 Rx Instructions: Partial Fill upon patient request. heparin(porcine) in 0.45% NaCl 25,000 unit/250 mL Parenteral Solution 25,000 unit continuous IV infusion .Q0M Qty: 100 0RF lactated Ringers Parenteral Solution 150 ml IV .per hour 2 Days Rx Instructions: until hemodynamically stable morphine 15 mg tablet 15 mg PO Q6H PRN (Reason: pain) Qty: 14 0RF Rx Instructions: Partial Fill upon patient request. ondansetron 4 mg tablet,disintegrating 4 mg PO Q6H PRN (Reason: nausea and vomiting) Qty: 10 0RF omeprazole 20 mg capsule,delayed release(DR/EC) 20 mg PO DAILY Qty: 30 0RF Print Language: Burkinan
[2024-05-09 00:23] LABS: MANUAL DIFF FLAG NO
[2024-05-09 00:24] LABS: Basophils Absolute Auto 0.1 X10*3/uL (0.0-0.2); Basophils Percent Auto 0.7 % (0-2); Eosinophils Absolute Auto 0.2 X10*3/uL (0.0-0.4); Hemoglobin 10.3 g/dl (12.0-16.0); Imm Gran Abs Auto 0.02 X10*3/uL (0.00-0.03); Imm Gran Pct Auto 0.3 % (0.0-0.4); Lymphocytes Absolute Auto 2.9 X10*3/uL (1.2-4.9); Lymphocytes Percent Auto 39.4 % (20-40); Mean Corpuscular HGB Conc 32.2 g/dl (31.0-35.0); Mean Corpuscular Hemoglobin 25.8 pg (27.0-33.0); Mean Platelet Volume 10.5 fL (9.4-12.3); Monocytes Absolute Auto 0.5 X10*3/uL (0.1-1.2); Monocytes Percent Auto 7.1 % (2-11); Neutrophils Absolute Auto 3.7 x10*3/uL (2.0-8.3); Neutrophils Percent Auto 49.5 % (45-73); Platelet Count 271 X10*3/uL (160-400); Red Cell Distribution Width 15.3 % (11.0-16.0); White Blood Count 7.4 X10*3/uL (4.8-10.8)
[2024-05-09] MEDS: Morphine Sulfate 2 MG/ML CARTRIDGE IVPUSH ×2 (00:46→02:01)
[2024-05-09 00:50] LABS: Lactic Acid 2.2 mmol/L (0.5-2.0)
[2024-05-09 00:53] LABS: Troponin-I High Sensitivity < 2.7 ng/L (<3.5-17.0)
[2024-05-09 00:54] LABS: Alanine Aminotransferase 57 U/L (0-31); Albumin Level 3.8 g/dL (3.5-5.0); Alkaline Phosphatase 120 U/L (39-117); Anion Gap 11 (12-20); Aspartate Amino Transferase 43 U/L (5-31); Bilirubin Direct < 0.2 mg/dL (0.0-0.5); Bilirubin Total 0.1 mg/dL (0.0-1.0); Blood Urea Nitrogen 7 mg/dL (9-16); Calcium 8.4 mg/dL (8.4-10.2); Carbon Dioxide 23 mmol/L (22-29); Chloride 111 mmol/L (96-108); Creatinine Clr Calc Pharmacy 103.3; Estimated Glomerular Filt Rate > 60; Ethanol < 10 mg/dL; Glucose Random 146 mg/dL (60-115); HCG Quantitative < 2 mIU/mL; Lipase 7 U/L (8-78); Potassium 3.7 mmol/L (3.3-5.1); Sodium 141 mmol/L (135-145); Total Protein 6.2 g/dL (6.5-8.0)
[2024-05-09 01:26] VITALS: BP 106/56; PULSE 100; RESP 18; TEMP 36.7; O2SAT 96
[2024-05-09] MEDS: iohexoL 350 MG/ML 100 ML INFUS..BTL 85 ML IV (01:29)
[2024-05-09] MEDS: bisacodyL 5 MG TABLET.DR 10 MG PO (02:05)
[2024-05-09] MEDS: Milk of Magnesia 30 ML ORAL.SUSP PO (02:05)
[2024-05-09 02:22] LABS: Reflex Lactate? Lactic Acid Added
--- NOTE | 2024-05-09 03:00 | PC.NURSE ---
this rn assumed care of pt @ 0115 from ed 4 pt calm and cooperative awaiting ed disposition at this time dr handley made aware pt continues to report pain no new orders
[2024-05-09 03:10] LABS: ~Lactic Acid-LAB USE ONLY 2.1 mmol/L (0.5-2.0)
[2024-05-09 03:56] LABS: Appearance Urine Clear; Color Urine Yellow; Glucose Urine UA Negative (Negative); Leukocyte Esterase Urine Negative (Negative); Nitrite Urine Negative (Negative); Specific Gravity - Urine >= 1.030 (1.005-1.025); Urine Blood Negative (Negative); Urine Ketones Negative (Negative); Urine Protein Negative (Neg-Trace)
[2024-05-09 04:07] LABS: Amphetamine Screen Urine Not Detected (Not Detect); Barbiturates, Urine Not Detected (Not Detect); Benzodiazepines Screen Urine Not Detected (Not Detect); Buprenorphine Scr Not Detected (Not Detect); Cannabinoid Screen Urine POSITIVE (Not Detect); Cocaine Screen Urine Not Detected (Not Detect); Fentanyl, urine Not Detected (Not Detect); Methadone Screen, Urine Not Detected (Not Detect); Opiate Screen Urine POSITIVE (Not Detect); Oxycodone Screen Urine Not Detected (Not Detect); Phencyclidine Screen Urine Not Detected (Not Detect)
[2024-05-09 04:46] LABS: Reflex Lactate? 2 Y
[2024-05-09 05:03] VITALS: BP 96/57; PULSE 84; RESP 16; TEMP 36.6; O2SAT 98
[2024-05-09 05:10] VITALS: BP 96/57; PULSE 84; RESP 16; TEMP 36.6; O2SAT 98
--- OUTSIDE RECORDS SUMMARY | 2024-05-14 04:31 | XMS_ITS | Continuity of Care Document ---
Author Organization [facility] Address [address] [place] [phone]- Support Name Relationship Address Phone PETE ACOSTA domestic partner Unknown Unavaila ble [place] [facility] [place] 05/01/24 [facility] [address] [place] [address]- Encounter Type: Triage Allergies, Adverse Reactions, Alerts No Known Allergies Medications Creon 36,000 units oral delayed release capsule TAKE 1 CAPSULE BY MOUTH THREE TIMES DAILY TAKE WITH MEAL AND SNACK Start Date: 04/08/24 Status: Ordered Repeat number: 1 docusate-senna 50 mg-187 mg oral tablet TAKE 2 TABLETS BY MOUTH ONCE DAILY Start Date: 04/08/24 Status: Ordered Repeat number: 1 hydrOXYzine pamoate 50 mg oral capsule TAKE 1 CAPSULE BY MOUTH EVERY 6 HOURS NEEDED FOR ANXIETY Start Date: 04/08/24 Status: Ordered Repeat number: 1 Lyrica 100 mg oral capsule 1 capsule = 100 mg, By Mouth, 2 times a day, # 60 capsule, 2 Refills, Maintenance, 03/03/24 10:12:00PM EDT, Capsule, [facility] #[id number], Partial fill upon patient request if the prescriptionis for a schedule II opioid drug., 163, cm, 01/31/24 10:48:00 EDT, Height, 54.5, kg, 11/19/23 9:16:00 EDT, Dry Weight Start Date: 03/03/24 Status: Ordered Quantity: 60.0 Unit: capsule Repeat number: 3 mirtazapine 7.5 mg oral tablet TAKE ONE TABLET AT BEDTIME Start Date: 04/08/24 Status: Ordered Repeat number: 1 morphine 15 mg oral tablet, immediate release 1 tablet = 15 mg, By Mouth, Every 12 hours, AND 1 TABLET ONCE PER DAY Start Date: 04/02/24 Status: Ordered Repeat number: 1 naloxone 4 mg/0.1 mL nasal spray ADMINISTER 1 SPRAY INTO AFFECTED NOSTRILS IF NEEDED FOR OPIOID REVERSAL. MAY REPEAT EVERY 2-3 MINUTES IF NEEDED. Start Date: 04/08/24 Status: Ordered Repeat number: 1 pantoprazole 40 mg oral delayed release tablet 1 tablet = 40 mg, By Mouth, Daily, # 30 tablet, 0 Refills, Maintenance, 04/08/24 9:58:00 AM EST, EC Tablet Start Date: 04/08/24 Status: Ordered Quantity: 30.0 Unit: tablet Repeat number: 1 polyethylene glycol 3350 oral powder for reconstitution MIX AND TAKE 17GM BY MOUTH ONCE DAILY Start Date: 04/08/24 Status: Ordered Repeat number: 1 traMADol 50 mg oral tablet 1 tablet = 50 mg, By Mouth, Every 6 hours, PRN for pain, # 60 tablet, 0 Refills, Maintenance, 04/17/24 7:45:00 AM EST, Tablet, [facility] #[id number], Partial fill upon patient request if the prescription is for a schedule II opioid drug., 163, cm, 03/31/24 9:52:00 EDT, Height, 50, kg, 03/31/24 9:52:00 EDT, Dry Weight Start Date: 04/17/24 Status: Ordered Quantity: 60.0 Unit: tablet Repeat number: 1 Problem List Condition Confirmation Course Effective Dates Status Health [facility] Informant Hypokalemia Confirmed Active Social History Social History Type Response Smoking Status Never (less than 100 in lifetime) entered on: 09/25/23 Sex Sex Representation Female (finding) Patient Care team information Care Team Personnel Name: Briseyda Melton RN Position: [facility] RN Member Role: Primary Care Nurse Name: Ena Obrien RN Position: [facility] RN Member Role: Primary Care Nurse Name: Tammie Zamudio RN Position: S RN Member Role: Primary Care Nurse Name: Dai Pham RN Position: S RN Member Role: Primary Care Nurse Name: Yumiko Ontiveros RN Position: S RN Member Role: Primary Care Nurse Name: Vinicio Carr RN Position: S RN Member Role: Primary Care Nurse Name: Earle Coyne RN Position: S RN Member Role: Primary Care Nurse Name: Saritha Prado RN Position: S RN Member Role: Primary Care Nurse Name: Micaela Abad RN Position: [facility] RN Member Role: Primary Care Nurse Name: Sudha Black LPN Position: [facility] RN Member Role: Primary Care Nurse Name: Marlon Michelle RN Position: [facility] RN Member Role: Primary Care Nurse Name: Noelle Gill RN Position: [facility] RN Member Role: Primary Care Nurse Name: Tiana Galicia RN Position: [facility] RN Member Role: Primary Care Nurse Name: Doreen Doe LPN Position: [facility] RN Member Role: Primary Care Nurse Name: Nelda Martin LPN Position: [facility] RN Member Role: Primary Care Nurse Care Team Related Persons Name: PETE ACOSTA Insurance Providers Guarantor name: [facility] [employer] [facility] Information #: 1 Payer: [employer] Current Member Number: NA Policy Number: NA Group Number: NA
--- OUTSIDE RECORDS SUMMARY | 2024-05-14 04:31 | XMS_ITS | Continuity of Care Document ---
Author Organization [facility] Address [address] [place] [phone]- Encounter [facility] [place] Date(s): 03/14/24 - 04/13/24 [facility] [address] [place] [address]- Allergies, Adverse Reactions, Alerts No Known Allergies Medications Creon 36,000 units oral delayed release capsule TAKE 1 CAPSULE BY MOUTH THREE TIMES DAILY TAKE WITH MEAL AND SNACK Start Date: 04/08/24 Status: Ordered docusate-senna 50 mg-187 mg oral tablet TAKE 2 TABLETS BY MOUTH ONCE DAILY Start Date: 04/08/24 Status: Ordered hydrOXYzine pamoate 50 mg oral capsule TAKE 1 CAPSULE BY MOUTH EVERY 6 HOURS NEEDED FOR ANXIETY Start Date: 04/08/24 Status: Ordered Lyrica 100 mg oral capsule 1 capsule = 100 mg, By Mouth, 2 times a day, # 60 capsule, 2 Refills, Maintenance, 03/03/24 22:12:00 EDT, Capsule, [facility] #[id number], Partial fill upon patient request if the prescription is for a schedule II opioid drug., 163, cm, 01/31/24... Start Date: 03/03/24 Status: Ordered mirtazapine 7.5 mg oral tablet TAKE ONE TABLET AT BEDTIME Start Date: 04/08/24 Status: Ordered morphine 15 mg oral tablet, immediate release 1 tablet = 15 mg, By Mouth, Every 12 hours, AND 1 TABLET ONCE PER DAY Start Date: 04/02/24 Status: Ordered naloxone 4 mg/0.1 mL nasal spray ADMINISTER 1 SPRAY INTO AFFECTED NOSTRILS IF NEEDED FOR OPIOID REVERSAL. MAY REPEAT EVERY 2-3 MINUTES IF NEEDED. Start Date: 04/08/24 Status: Ordered pantoprazole 40 mg oral delayed release tablet 1 tablet = 40 mg, By Mouth, Daily, # 30 tablet, 0 Refills, Maintenance, 04/08/24 9:58:00 EST, EC Tablet Start Date: 04/08/24 Status: Ordered polyethylene glycol 3350 oral powder for reconstitution MIX AND TAKE 17GM BY MOUTH ONCE DAILY Start Date: 04/08/24 Status: Ordered Problem List Condition Confirmation Course Effective Dates Status Health [facility] Inform[facility] Hypokalemia Confirmed Active Social History Social History Type Response Smoking Status Never (less than 100 in lifetime) entered on: 09/25/23 Sex Patient Care team information Care Team Personnel Name: Briseyda Melton RN Position: S RN Member Role: Primary Care Nurse Name: Ena Obrien RN Position: S RN Member Role: Primary [...] Care Nurse Name: Micaela Abad RN Position: S RN Member Role: Primary Care Nurse Name: Sudha Black LPN Position: S RN Member Role: Primary Care Nurse Name: Marlon Michelle RN Position: S RN Member Role: Primary Care Nurse Name: Noelle Gill RN Position: S RN Member Role: Primary Care Nurse Name: Tiana Galicia RN Position: S RN Member Role: Primary Care Nurse Name: Doreen Doe LPN Position: S RN Member Role: Primary Care Nurse Name: Nelda Martin LPN Position: S RN Member Role: Primary Care Nurse Care Team Related Persons Name: PETE ACOSTA Address: home [address] [facility] [place] [address]
--- OUTSIDE RECORDS SUMMARY | 2024-05-14 04:31 | XMS_ITS | Continuity of Care Document ---
Author Organization [facility] Address [address] [place] [address]- [id number] Date[facility] 03/13/24 - 04/12/24 [facility] [address] [place] [address]- Allergies, Adverse Reactions, Alerts No Known Allergies [...] 2 Refills, Maintenance, 03/03/24 22:12:00 EDT, Capsule, [facility] #[id number], Partial fill upon patient request if the [...] Persons Name: PETE ACOSTA Address: home [address] [place] [id number]
--- OUTSIDE RECORDS SUMMARY | 2024-05-14 04:31 | XMS_ITS | Continuity of Care Document ---
Author Organization [facility] Address [address] [place] [address]- Support Name Relationship Address Phone PETE ACOSTA domestic partner Unknown Unavaila ble [place] [facility] [place]18/24 [facility] [address] [place] [address]- Encounter Type: Triage Allergies, Adverse Reactions, Alerts [...] 2 Refills, Maintenance, 03/03/24 10:12:00PM EDT, Capsule, [facility] #[id number], Partial fill upon patient request if the [...] Refills, Maintenance, 04/17/24 7:45:00 AM EST, Tablet, [facility] #[id number], Partial fill upon patient request if the [...] Team Personnel Name: Briseyda Melton RN Position: [facility] RN Member Role: Primary Care Nurse Name: Ena Obrien RN Position: [facility] RN Member Role: Primary Care Nurse Name: Tammie Zamudio RN Position: S RN Member Role: Primary Care Nurse Name: Dai Pham RN Position: S RN Member Role: Primary Care Nurse Name: Yumiko Ontiveros RN Position: S RN Member Role: Primary Care Nurse Name: Vinicio Carr RN Position: S RN Member Role: Primary Care Nurse Name: Earle Coyne RN Position: [facility] RN Member Role: Primary Care Nurse Name: Saritha Prado RN Position: [facility] RN Member Role: Primary Care Nurse Name: Micaela Abad RN Position: [facility] RN Member Role: Primary Care Nurse Name: Sudha Black LPN Position: [facility] RN Member Role: Primary Care Nurse Name: Marlon Michelle RN Position: [facility] RN Member Role: Primary Care Nurse Name: Noelle Gill RN Position: [facility] RN Member Role: Primary Care Nurse Name: Tiana Galicia RN Position: [facility] RN Member Role: Primary Care Nurse Name: Doreen Doe LPN Position: [facility] RN Member Role: Primary Care Nurse Name: Nelda Martin LPN Position: [facility] RN Member Role: Primary Care Nurse Care Team Related Persons Name: PETE ACOSTA Insurance Providers Guarantor name: [facility] Information #: 1 [facility] Member Number: NA Policy Number: NA Group Number: NA
--- OUTSIDE RECORDS SUMMARY | 2024-05-14 04:31 | XMS_ITS | Continuity of Care Document ---
Author Organization [facility] Address [address] [place] [address]- Support Name Relationship Address Phone PETE ACOSTA domestic partner Unknown Unavaila ble En[place] [facility] [place] Date(s): 04/04/24 - 05/04/24 [facility] [address] [place] [address]- Encounter Type: Triage Allergies, Adverse Reactions, Alerts [...] 2 Refills, Maintenance, 03/03/24 10:12:00PM EDT, Capsule, [facility] #[id number], Partial fill upon patient request if the [...] Refills, Maintenance, 04/17/24 7:45:00 AM EST, Tablet, [facility] #[id number], Partial fill upon patient request if the [...] Team Personnel Name: Briseyda Melton RN Position: [facility] RN Member Role: Primary Care Nurse Name: Ena Obrien RN Position: [facility] RN Member Role: Primary Care Nurse Name: Tammie Zamudio RN Position: S RN Member Role: Primary Care Nurse Name: Dai Pham RN Position: S RN Member Role: Primary Care Nurse Name: Yumiko Ontiveros RN Position: S RN Member Role: Primary Care Nurse Name: Vinicio Carr RN Position: S RN Member Role: Primary Care Nurse Name: Earle Coyne RN Position: [facility] RN Member Role: Primary Care Nurse Name: Saritha Prado RN Position: [facility] RN Member Role: Primary Care Nurse Name: Micaela Abad RN Position: [facility] RN Member Role: Primary Care Nurse Name: Sudha Black LPN Position: [facility] RN Member Role: Primary Care Nurse Name: Marlon Michelle RN Position: [facility] RN Member Role: Primary Care Nurse Name: Noelle Gill RN Position: [facility] RN Member Role: Primary Care Nurse Name: Tiana Galicia RN Position: [facility] RN Member Role: Primary Care Nurse Name: Doreen Doe LPN Position: [facility] RN Member Role: Primary Care Nurse Name: Nelda Martin LPN Position: [facility] RN Member Role: Primary Care Nurse Care Team Related Persons Name: PETE ACOSTA Insurance Providers Guarantor name: [facility] Information #: 1 Payer: [facility] Member Number: NA Policy Number: NA Group Number: NA
--- OUTSIDE RECORDS SUMMARY | 2024-05-14 04:31 | XMS_ITS | Continuity of Care Document ---
Author Organization [facility] Address [address] [place] [address]- Support Name Relationship Address Phone PETE ACOSTA domestic partner Unknown Unavaila ble Encounter [facility] [place] Date(s): 03/03/24 - 04/20/24 [facility] [address] [place] [address]- Attending Physician: Kevin Scherer DO Admitting Physician: Kevin Scherer DO Encounter Type: Pre-OutPatient One Time Allergies, Adverse Reactions, Alerts No Known Allergies [...] 2 Refills, Maintenance, 03/03/24 10:12:00PM EDT, Capsule, [facility] #[id number], Partial fill upon patient request if the [...] Refills, Maintenance, 04/17/24 7:45:00 AM EST, Tablet, [facility] #[id number], Partial fill upon patient request if the [...] Team Personnel Name: Briseyda Melton RN Position: [facility] RN Member Role: Primary Care Nurse Name: Ena Obrien RN Position: [facility] RN Member Role: Primary Care Nurse Name: Tammie Zamudio RN Position: [facility] RN Member Role: Primary Care Nurse Name: Dai Pham RN Position: S RN Member Role: Primary Care Nurse Name: Yumiko Ontiveros RN Position: S RN Member Role: Primary Care Nurse Name: Vinicio Carr RN Position: [facility] RN Member Role: Primary Care Nurse Name: Earle Coyne RN Position: [facility] RN Member Role: Primary Care Nurse Name: Saritha Prado RN Position: [facility] RN Member Role: Primary Care Nurse Name: Micaela Abad RN Position: [facility] RN Member Role: Primary Care Nurse Name: Sudha Black LPN Position: [facility] RN Member Role: Primary Care Nurse Name: Marlon Michelle RN Position: [facility] RN Member Role: Primary Care Nurse Name: Noelle Gill RN Position: [facility] RN Member Role: Primary Care Nurse Name: Tiana Galicia RN Position: [facility] RN Member Role: Primary Care Nurse Name: Doreen Doe LPN Position: [facility] RN Member Role: Primary Care Nurse Name: Nelda Martin LPN Position: [facility] RN Member Role: Primary Care Nurse Care Team Related Persons Name: PETE ACOSTA Insurance Providers Guarantor name: [facility] [employer] [facility] Information #: 1 Payer: [employer] Member Number: [id number] Policy Number: NA Group Number: NA Health Plan Information #: 2 Payer: [facility] Member Number: [id number] Policy Number: NA Group Number: NA
--- OUTSIDE RECORDS SUMMARY | 2024-05-14 04:31 | XMS_ITS | Continuity of Care Document ---
Author Organization [facility] Address [address] [place] [address]- Support Name Relationship Address Phone PETE ACOSTA domestic partner Unknown Unavaila ble En[place] [facility] [place] 02/19/24 - 05/03/24 [facility] [address] [place] [address]- Attending Physician: Kevin Scherer DO Admitting Physician: [...] 2 Refills, Maintenance, 03/03/24 10:12:00PM EDT, Capsule, [facility] #[id number], Partial fill upon patient request if the [...] Refills, Maintenance, 04/17/24 7:45:00 AM EST, Tablet, [facility] #[id number], Partial fill upon patient request if the [...] Team Personnel Name: Briseyda Melton RN Position: [facility] RN Member Role: Primary Care Nurse Name: Ena Obrien RN Position: [facility] RN Member Role: Primary Care Nurse Name: Tammie Zamudio RN Position: [facility] RN Member Role: Primary Care Nurse Name: Dai Pham RN Position: S RN Member Role: Primary Care Nurse Name: Yumiko Ontiveros RN Position: S RN Member Role: Primary Care Nurse Name: Vinicio Carr RN Position: [facility] RN Member Role: Primary Care Nurse Name: Earle Coyne RN Position: [facility] RN Member Role: Primary Care Nurse Name: Saritha Prado RN Position: [facility] RN Member Role: Primary Care Nurse Name: Micaela Abad RN Position: [facility] RN Member Role: Primary Care Nurse Name: Sudha Black LPN Position: [facility] RN Member Role: Primary Care Nurse Name: Marlon Michelle RN Position: [facility] RN Member Role: Primary Care Nurse Name: Noelle Gill RN Position: [facility] RN Member Role: Primary Care Nurse Name: Tiana Galicia RN Position: [facility] RN Member Role: Primary Care Nurse Name: Doreen Doe LPN Position: [facility] RN Member Role: Primary Care Nurse Name: Nelda Martin LPN Position: [facility] RN Member Role: Primary Care Nurse Care Team Related Persons Name: PETE ACOSTA Insurance Providers Guarantor name: [facility] [employer] [facility] Information #: 1 Payer: [employer] Member Number: [id number] Policy Number: NA Group Number: NA Health Plan Information #: 2 Payer: [facility] Member Number: [id number] Policy Number: NA Group Number: NA
--- OUTSIDE RECORDS SUMMARY | 2024-05-14 04:31 | XMS_ITS | Continuity of Care Document ---
Author Organization [facility] Address [address] [place] [address]- Support Name Relationship Address Phone PETE ACOSTA domestic partner Unknown Unavaila ble [place] [facility] [place] 04/03/24 - 05/03/24 [facility] [address] [place] [address]- Encounter Type: Triage Allergies, Adverse Reactions, Alerts [...] 2 Refills, Maintenance, 03/03/24 10:12:00PM EDT, Capsule, [facility] #[id number], Partial fill upon patient request if the [...] Refills, Maintenance, 04/17/24 7:45:00 AM EST, Tablet, [facility] #[id number], Partial fill upon patient request if the [...] Team Personnel Name: Briseyda Melton RN Position: [facility] RN Member Role: Primary Care Nurse Name: Ena Obrien RN Position: [facility] RN Member Role: Primary Care Nurse Name: Tammie Zamudio RN Position: [facility] RN Member Role: Primary Care Nurse Name: Dai Pham RN Position: S RN Member Role: Primary Care Nurse Name: Yumiko Ontiveros RN Position: S RN Member Role: Primary Care Nurse Name: Vinicio Carr RN Position: [facility] RN Member Role: Primary Care Nurse Name: Earle Coyne RN Position: [facility] RN Member Role: Primary Care Nurse Name: Saritha Prado RN Position: [facility] RN Member Role: Primary Care Nurse Name: Micaela Abad RN Position: [facility] RN Member Role: Primary Care Nurse Name: Sudha Black LPN Position: [facility] RN Member Role: Primary Care Nurse Name: Marlon Michelle RN Position: [facility] RN Member Role: Primary Care Nurse Name: Noelle Gill RN Position: [facility] RN Member Role: Primary Care Nurse Name: Tiana Galicia RN Position: [facility] RN Member Role: Primary Care Nurse Name: Doreen Doe LPN Position: [facility] RN Member Role: Primary Care Nurse Name: Nelda Martin LPN Position: [facility] RN Member Role: Primary Care Nurse Care Team Related Persons Name: PETE ACOSTA Insurance Providers Guarantor name: [facility] Information #: 1 [facility] Member Number: NA Policy Number: NA Group Number: NA
== END 2024-05-09 05:20 | disposition home or self-care (01) ==
PROVIDERS: Emergency Provider Emergency Medicine; PCP Family Medicine
DX: R10.9 Unspecified abdominal pain (principal); K86.1 Other chronic pancreatitis; R14.0 Abdominal distension (gaseous)
CPT/HCPCS: 36415; 74177; 80048; 80076; 80307; 81003; 83605; 83690; 84484; 84702; 85025; 87040; 96374; 96375; 99284; J2270; Q9967

== ENCOUNTER 2024-06-05 16:44 | Emergency (ER) | payer MEDICAID, SELFPAY ==
[2024-06-05 17:02] VITALS: BP 118/78; PULSE 99; O2SAT 99
[2024-06-05 17:03] VITALS: BP 110/73; PULSE 117; RESP 19; TEMP 36.6; O2SAT 98; BMI 22.3
--- NOTE | 2024-06-05 17:07 | ED.GENADULT ---
HPI - General Adult General Chief complaint: Abdominal Pain Stated complaint: PANCREATITIS PAIN History of Present Illness HPI narrative: Patient left before completion of treatment by ED provider. Related Data Previous Rx's ?Medication ?Instructions ?Recorded heparin (porcine) 25,000 unit/250 25,000 unit (250 mL) continuous IV 09/07/23 mL in 0.45 % sodium chloride IV infusion .Q0M #100 mL soln heparin (porcine) 5,000 unit/mL 3,100 unit (0.62 mL) IVPUSH 09/07/23 injection solution PROTOCOL BOLUS PRN 40 Unit/Kg - Heparin Protocol #100 mL heparin (porcine) 5,000 unit/mL 6,300 unit (1.26 mL) IVPUSH 09/07/23 injection solution PROTOCOL BOLUS PRN 80 Unit/Kg - Heparin Protocol #100 mL hydromorphone 1 mg/mL injection 1 mg IVPUSH Q2H PRN Pain, 09/07/23 syringe Moderate(Pain Scale 4-6) #5 mL lactated Ringers 150 ml IV .per hour 2 days 09/07/23 morphine 15 mg immediate release 15 mg PO Q6H PRN pain #14 tabs 10/18/23 tablet ondansetron 4 mg disintegrating 4 mg PO Q6H PRN nausea and 10/18/23 tablet vomiting #10 tabs omeprazole 20 mg capsule,delayed 20 mg PO DAILY #30 caps 04/17/24 release Allergies Allergy/AdvReac Type Severity Reaction Status Date / Time No Known Allergies Allergy Verified 06/05/24 17:05 [facility] Past Medical History Medical History Alcohol abuse Necrotizing pancreatitis Benign tumor of breast Alcohol abuse Asthma Anxiety Surgical History No history of previous surgery Social History Social History Household Members: Family Housing: House Do you presently have visiting nurse or other home services: No Alcohol intake: former Patient Tobacco Use Status: Never used Tobacco Substance Use Type: Marijuana Advance Directives: No Advance Directives Information Provided: No Do you have a plan to hurt others: No Plan service: No Physical Exam ED Vital Signs: Vital Signs - 24 hr 06/05/24 17:03 Temperature 98 F Pulse Rate 117 H Respiratory Rate 19 Blood Pressure 110/73 Pulse Oximetry 98 Oxygen Delivery Method Room Air BMI result Body Mass Index 22.3 Course Course Course Narrative: RME: 28-year-old female presents to ED for epigastric abdominal pain. Patient believes she has a pancreatitis exacerbation. Patient has history of pancreatitis due to alcohol. Patient denies any recent drinking. Labs ordered. Medical Decision Making Lab Data 06/05/24 17:41 06/05/24 17:41 Labs: Lab Results 06/05/24 06/05/24 Range/Units 17:41 17:46 WBC 9.8 (4.8-10.8) X10*3/uL RBC 4.63 (4.20-5.50) X10*6/uL Hgb 11.9 L (12.0-16.0) g/dl Hct 37.0 (37.0-47.0) % MCV 79.9 L (80.0-98.0) fL MCH 25.7 L (27.0-33.0) pg MCHC 32.2 (31.0-35.0) g/dl RDW 14.3 (11.0-16.0) % Plt Count 308 (160-400) X10*3/uL MPV 11.0 (9.4-12.3) fL Immature Gran % (Auto) 0.4 (0.0-0.4) % Neut % (Auto) 84.1 H (45-73) % Lymph % (Auto) 12.5 L (20-40) % [place] % (Auto) 2.7 (2-11) % Eos % (Auto) 0.0 (0-4) % Baso % (Auto) 0.3 (0-2) % Lymph # (Auto) 1.2 (1.2-4.9) X10*3/uL [place] # (Auto) 0.3 (0.1-1.2) X10*3/uL Eos # (Auto) 0.0 (0.0-0.4) X10*3/uL Baso # (Auto) 0.0 (0.0-0.2) X10*3/uL Abs Immat Gran (auto) 0.04 H (0.00-0.03) X10*3/uL Absolute Neuts (auto) 8.2 (2.0-8.3) x10*3/uL Absolute Nucleated RBC 0.000 (0.0-0.012) X10*3/uL Nucleated RBC % (auto) 0.0 (0.0-0.2) /100WBC Sodium 138 (135-145) mmol/L Potassium 3.9 (3.3-5.1) mmol/L Chloride 108 (96-108) mmol/L Carbon Dioxide 22 (22-29) mmol/L Anion Gap 12 (12-20) BUN 9 (9-16) mg/dL Creatinine 0.69 (0.5-1.4) mg/dL Estim Creat Clear Calc 104.8 Estimated GFR > 60 Random Glucose 141 H (60-115) mg/dL Calcium 9.2 D (8.4-10.2) mg/dL Total Bilirubin 0.3 (0.0-1.0) mg/dL AST 41 H (5-31) U/L ALT 62 H (0-31) U/L Alkaline Phosphatase 173 H (39-117) U/L Total Protein 7.4 (6.5-8.0) g/dL Albumin 4.4 (3.5-5.0) g/dL Lipase 5 L (8-78) U/L Beta HCG, Quant < 2 mIU/mL Urine Color Yellow Urine Appearance Clear Urine pH 6.5 (5.0-9.0) Ur Specific [place] 1.025 (1.005-1.025) Urine Protein Negative (Neg-Trace) mg/dL Urine Glucose (UA) Negative (Negative) mg/dL Urine Ketones Negative (Negative) mg/dL Urine Blood Negative (Negative) Urine Nitrite Negative (Negative) Ur Leukocyte Esterase Negative (Negative) Urine Test NEGATIVE (NEGATIVE) Influenza Type A (PCR) NEGATIVE (Negative) Influenza Type B (PCR) NEGATIVE (Negative) RSV RNA Qual (PCR) NEGATIVE (Negative) SARS-CoV-2 RNA (RT-PCR) POSITIVE A (Negative) S. pyogenes GrpA TWIN Negative (Negative) Discharge Plan Discharge Clinical Impression: Abdominal pain Patient Disposition: Left W/O Completing Treatment Prescriptions: No Action heparin (porcine) 5,000 unit/mL Solution 6,300 unit IVPUSH PROTOCOL BOLUS PRN (Reason: 80 Unit/Kg - Heparin Protocol) Qty: 100 0RF heparin (porcine) 5,000 unit/mL Solution 3,100 unit IVPUSH PROTOCOL BOLUS PRN (Reason: 40 Unit/Kg - Heparin Protocol) Qty: 100 0RF hydromorphone 1 mg/mL Syringe 1 mg IVPUSH Q2H PRN (Reason: Pain, Moderate(Pain Scale 4-6)) Qty: 5 0RF Protocol: Hold for RR < HOLD and contact provider for RR < (bpm): 12 Rx Instructions: Partial Fill upon patient request. heparin(porcine) in 0.45% NaCl 25,000 unit/250 mL Parenteral Solution 25,000 unit continuous IV infusion .Q0M Qty: 100 0RF lactated Ringers Parenteral Solution 150 ml IV .per hour 2 Days Rx Instructions: until hemodynamically stable morphine 15 mg tablet 15 mg PO Q6H PRN (Reason: pain) Qty: 14 0RF Rx Instructions: Partial Fill upon patient request. ondansetron 4 mg tablet,disintegrating 4 mg PO Q6H PRN (Reason: nausea and vomiting) Qty: 10 0RF omeprazole 20 mg capsule,delayed release(DR/EC) 20 mg PO DAILY Qty: 30 0RF Discharge Date/Time: 06/05/24 21:25
[2024-06-05 17:54] LABS: MANUAL DIFF FLAG NO
[2024-06-05 18:02] LABS: Appearance Urine Clear; Color Urine Yellow; Glucose Urine UA Negative (Negative); Leukocyte Esterase Urine Negative (Negative); Nitrite Urine Negative (Negative); PH 6.5 (5.0-9.0); Specific Gravity - Urine 1.025 (1.005-1.025); Urine Blood Negative (Negative); Urine Ketones Negative (Negative); Urine Protein Negative (Neg-Trace)
[2024-06-05 18:03] LABS: UPreg QC Valid YES; Urine Pregnancy NEGATIVE (NEGATIVE)
[2024-06-05 18:03] LABS: IDNOW Serial# 08D9AD1C; Strep A Nucleic Acid Negative (Negative)
[2024-06-05 18:06] LABS: Basophils Percent Auto 0.3 % (0-2); Hemoglobin 11.9 g/dl (12.0-16.0); Imm Gran Abs Auto 0.04 X10*3/uL (0.00-0.03); Imm Gran Pct Auto 0.4 % (0.0-0.4); Lymphocytes Absolute Auto 1.2 X10*3/uL (1.2-4.9); Lymphocytes Percent Auto 12.5 % (20-40); Mean Corpuscular HGB Conc 32.2 g/dl (31.0-35.0); Mean Corpuscular Hemoglobin 25.7 pg (27.0-33.0); Mean Corpuscular Volume 79.9 fL (80.0-98.0); Monocytes Absolute Auto 0.3 X10*3/uL (0.1-1.2); Monocytes Percent Auto 2.7 % (2-11); Neutrophils Absolute Auto 8.2 x10*3/uL (2.0-8.3); Neutrophils Percent Auto 84.1 % (45-73); Platelet Count 308 X10*3/uL (160-400); Red Blood Count 4.63 X10*6/uL (4.20-5.50); Red Cell Distribution Width 14.3 % (11.0-16.0); White Blood Count 9.8 X10*3/uL (4.8-10.8)
[2024-06-05 18:24] LABS: Alanine Aminotransferase 62 U/L (0-31); Albumin Level 4.4 g/dL (3.5-5.0); Alkaline Phosphatase 173 U/L (39-117); Anion Gap 12 (12-20); Aspartate Amino Transferase 41 U/L (5-31); Bilirubin Total 0.3 mg/dL (0.0-1.0); Blood Urea Nitrogen 9 mg/dL (9-16); Calcium 9.2 mg/dL (8.4-10.2); Carbon Dioxide 22 mmol/L (22-29); Chloride 108 mmol/L (96-108); Creatinine Clr Calc Pharmacy 104.8; Estimated Glomerular Filt Rate > 60; Glucose Random 141 mg/dL (60-115); Lipase 5 U/L (8-78); Potassium 3.9 mmol/L (3.3-5.1); Sodium 138 mmol/L (135-145); Total Protein 7.4 g/dL (6.5-8.0)
[2024-06-05 18:27] LABS: HCG Quantitative < 2 mIU/mL
[2024-06-05 18:38] LABS: Influenza A PCR NEGATIVE (Negative); Influenza B PCR NEGATIVE (Negative); Resp Syncy Virus RNA Qual PCR NEGATIVE (Negative); SARS COV2 PCR INHOUSE POSITIVE (Negative)
--- NOTE | 2024-06-05 21:24 | PC.NURSE ---
viscose cellar charge hand attempted to call patient numerous times with no response
== END 2024-06-05 21:25 | disposition left against medical advice (07) ==
PROVIDERS: Physician Assistant; Emergency Provider Emergency Medicine
DX: K85.90 Acute pancreatitis without necrosis or infection, unspecified (principal); R10.13 Epigastric pain; R10.2 Pelvic and perineal pain; Z79.899 Other long term (current) drug therapy; Z03.818 Encounter for observation for suspected exposure to other biological agents ruled out
CPT/HCPCS: 0241U; 80053; 81003; 81025; 83690; 84702; 85025; 87651; 99282; 99283

== ENCOUNTER 2024-06-06 10:35 | Emergency (ER) | payer MEDICAID, SELFPAY ==
[2024-06-06 10:49] VITALS: BP 114/67; PULSE 94; RESP 18; TEMP 36.8; O2SAT 98; BMI 22.1
--- NOTE | 2024-06-06 11:01 | ED.GENADULT ---
HPI - General Adult General Chief complaint: Abdominal Pain Stated complaint: Abd pain Time Seen by Provider: 06/06/24 15:32 Source: patient Mode of arrival: ambulatory Limitations: no limitations History of Present Illness ED Provider: Rafael Trejo PA-C HPI narrative: 28 yo female with history of ETOH use disorder, now sober x4 months, history of necrotizing pancreatitis in September who presents to the ER for evaluation of epigatric abdominal pain, N/V/D for the last 3 days. Seen here yesterday but left before completing treatment. Labs from yesterday show she is COVID positive. She has been coughing, having muscle aches, headaches and generally not feeling well. She was worried about her pancreas being inflamed again prompting her ER evaluation. complaint: N/V/D Onset (ago): day(s) (3) Location: abdomen Radiation: non-radiation Severity: moderate Quality: aching Pain Consistency: constant Relieving factors: none Exacerbating factors: eating Associated symptoms: cough, fever/chills, headaches, loss of appetite, malaise, nausea/vomiting and weakness Treatments prior to arrival: none Related Data Previous Rx's ?Medication ?Instructions ?Recorded heparin (porcine) 25,000 unit/250 25,000 unit (250 mL) continuous IV 09/07/23 mL in 0.45 % sodium chloride IV infusion .Q0M #100 mL soln heparin (porcine) 5,000 unit/mL 3,100 unit (0.62 mL) IVPUSH 09/07/23 injection solution PROTOCOL BOLUS PRN 40 Unit/Kg - Heparin Protocol #100 mL heparin (porcine) 5,000 unit/mL 6,300 unit (1.26 mL) IVPUSH 09/07/23 injection solution PROTOCOL BOLUS PRN 80 Unit/Kg - Heparin Protocol #100 mL hydromorphone 1 mg/mL injection 1 mg IVPUSH Q2H PRN Pain, 09/07/23 syringe Moderate(Pain Scale 4-6) #5 mL lactated Ringers 150 ml IV .per hour 2 days 09/07/23 morphine 15 mg immediate release 15 mg PO Q6H PRN pain #14 tabs 10/18/23 tablet ondansetron 4 mg disintegrating 4 mg PO Q6H PRN nausea and 10/18/23 tablet vomiting #10 tabs omeprazole 20 mg capsule,delayed 20 mg PO DAILY #30 caps 11/14/24 release omeprazole 20 mg capsule,delayed 20 mg PO DAILY #10 caps 06/06/24 release ondansetron 4 mg disintegrating 4 mg PO Q8H PRN nausea and 06/06/24 tablet vomiting #7 tabs Allergies Allergy/AdvReac Type Severity Reaction Status Date / Time No Known Allergies Allergy Verified 06/06/24 10:51 Review of Systems Review of Systems: Yes all other systems are reviewed and are negative [facility] Past Medical History Medical History Alcohol abuse Necrotizing pancreatitis Benign tumor of breast Alcohol abuse Asthma Anxiety Surgical History No history of previous surgery Social History Social History Household Members: Family Housing: House Do you presently have visiting nurse or other home services: No Alcohol intake: former Patient Tobacco Use Status: Never used Tobacco Substance Use Type: Marijuana Advance Directives: No Advance Directives Information Provided: No Do you have a plan to hurt others: No Plan service: No Physical Exam ED Vital Signs: Vital Signs - 24 hr 06/06/24 10:49 06/06/24 15:24 Temperature 98.3 F 98.0 F Pulse Rate 94 99 Respiratory Rate 18 16 Blood Pressure 114/67 107/61 Pulse Oximetry 98 98 Oxygen Delivery Method Room Air Room Air BMI result Body Mass Index 22.1 Course Course Course Narrative: This is a rapid medical exam performed by Marla Arrieta NP: Additional HPI, ROS, PE not included below will be deferred to primary provider. Patient is a 28-year-old female with history of alcoholic pancreatitis presenting with complaint of upper abdominal pain, nausea, vomiting and diarrhea for several days. States has not been drinking alcohol for months. Plan: labs, US Medications Administered Discontinued Medications Generic Name Dose Route Start Last Admin Trade Name Freq PRN Reason Stop Dose Admin Al Hydroxide/Mg Hydroxide 30 ml 06/06/24 15:37 06/06/24 15:52 Magnesium Hydrox/Alum Hydrox 30 Ml Oral.Susp PO 06/06/24 15:38 30 ml ONCE ONE Administration Belladonna Alkaloids/Phenobarbital 10 ml 06/06/24 15:37 06/06/24 15:52 Phenobarb/Hyoscy/Atropine/Scop 10 Ml Elixir PO 06/06/24 15:38 10 ml ONCE ONE Administration Dicyclomine HCl 10 mg 06/06/24 16:51 06/06/24 17:10 Dicyclomine Hcl 10 Mg Capsule PO 06/06/24 16:52 10 mg ONCE ONE Administration Ketorolac Tromethamine 30 mg 06/06/24 17:41 06/06/24 18:06 Ketorolac Tromethamine 30 Mg/Ml Vial IM 06/06/24 17:42 30 mg ONCE ONE Administration Lidocaine HCl 15 ml 06/06/24 15:37 06/06/24 15:52 Lidocaine Hcl Viscous 2 % 15 Ml Solution MUCOUS MEM 06/06/24 15:38 15 ml ONCE ONE Administration Omeprazole 40 mg 06/06/24 16:51 06/06/24 17:10 Omeprazole 40 Mg Capsule. PO 06/06/24 16:52 40 mg ONCE ONE Administration Ondansetron HCl 4 mg 06/06/24 16:52 06/06/24 17:10 Ondansetron Odt 4 Mg Tab.Rapdis TRANSLINGU 06/06/24 16:53 4 mg ONCE ONE Administration Medical Decision Making Medical Decision Making MDM Narrative: 20-year-old female with history of former alcohol use, history of necrotizing pancreatitis in September who presents to the ER for evaluation of epigastric abdominal pain, nausea, vomiting, diarrhea, body aches and headaches for the last 3 days. She was concerned about recurrent pancreatitis although she has been sober from alcohol. She has also had a cough and subjective fever and chills. On arrival to the ER patient is hemodynamically stable, afebrile, saturating well on room air. Labs from yesterday show she is COVID positive. Informed her of the results, denies any known sick contacts. Lab work otherwise reassuring with a negative lipase. She was given GI cocktail with some improvement in her abdominal discomfort. She was tolerating p.o.. She reported some ongoing discomfort so additional symptomatic meds were given with good effect. Patient is feeling better. At this time she is stable for discharge home with supportive care and antiemetics. Patient agrees with plan return precautions were discussed Differential Diagnosis Differential Diagnoses: The differential diagnosis associated with the presentation includes Gastritis, GERD, perforated viscus, pancreatitis, cholecystitis Admission/Observation Consideration of admission/observation: Escalation of care including admission/observation considered Lab Data MDM Lab Attestation statement: I reviewed the patient's lab results. Mild anemia, negative lipase, mildly elevated LFTs which is chronic 06/06/24 12:12 06/06/24 12:12 Labs: Lab Results 06/06/24 06/06/24 Range/Units 12:12 12:13 WBC 8.2 (4.8-10.8) X10*3/uL RBC 4.30 (4.20-5.50) X10*6/uL Hgb 10.9 L (12.0-16.0) g/dl Hct 34.9 L (37.0-47.0) % MCV 81.2 (80.0-98.0) fL MCH 25.3 L (27.0-33.0) pg MCHC 31.2 (31.0-35.0) g/dl RDW 14.3 (11.0-16.0) % Plt Count 257 (160-400) X10*3/uL MPV 11.0 (9.4-12.3) fL Immature Gran % (Auto) 0.5 H (0.0-0.4) % Neut % (Auto) 81.2 H (45-73) % Lymph % (Auto) 11.6 L (20-40) % [place] % (Auto) 5.2 (2-11) % Eos % (Auto) 1.0 (0-4) % Baso % (Auto) 0.5 (0-2) % Lymph # (Auto) 1.0 L (1.2-4.9) X10*3/uL [place] # (Auto) 0.4 (0.1-1.2) X10*3/uL Eos # (Auto) 0.1 (0.0-0.4) X10*3/uL Baso # (Auto) 0.0 (0.0-0.2) X10*3/uL Abs Immat Gran (auto) 0.04 H (0.00-0.03) X10*3/uL Absolute Neuts (auto) 6.7 (2.0-8.3) x10*3/uL Absolute Nucleated RBC 0.000 (0.0-0.012) X10*3/uL Nucleated RBC % (auto) 0.0 (0.0-0.2) /100WBC PT 11.6 (10.9-12.4) SEC INR 1.0 (0.9-1.1) Sodium 138 (135-145) mmol/L Potassium 3.8 (3.3-5.1) mmol/L Chloride 111 H (96-108) mmol/L Carbon Dioxide 22 (22-29) mmol/L Anion Gap 9 L (12-20) BUN 9 (9-16) mg/dL Creatinine 0.62 (0.5-1.4) mg/dL Estim Creat Clear Calc 116.6 Estimated GFR > 60 Random Glucose 131 H (60-115) mg/dL Calcium 8.4 D (8.4-10.2) mg/dL Magnesium 2.0 (1.6-2.6) mg/dL Total Bilirubin 0.3 (0.0-1.0) mg/dL AST 32 H (5-31) U/L ALT 46 H (0-31) U/L Alkaline Phosphatase 163 H (39-117) U/L Total Protein 7.0 (6.5-8.0) g/dL Albumin 4.2 (3.5-5.0) g/dL Amylase 73 (28-100) U/L Lipase 6 L (8-78) U/L Beta HCG, Quant < 2 mIU/mL Urine Color Yellow Urine Appearance Clear Urine pH 6.0 (5.0-9.0) Ur Specific [place] >= 1.030 H (1.005-1.025) Urine Protein Trace (Neg-Trace) mg/dL Urine Glucose (UA) Negative (Negative) mg/dL Urine Ketones Trace (Negative) mg/dL Urine Blood Negative (Negative) Urine Nitrite Negative (Negative) Ur Leukocyte Esterase Trace H (Negative) Urine RBC 0-2 (0-2) /HPF Urine WBC 0-5 (0-5) /HPF Ur Squamous Epith Cells 3-5 (0-2) /HPF Calcium Oxalate Crystal Present Urine Bacteria None Seen (None Seen) Hyaline Casts 0-2 (0-2) /LPF Ethyl Alcohol < 10 mg/dL Influenza Type A (PCR) NEGATIVE (Negative) Influenza Type B (PCR) NEGATIVE (Negative) RSV RNA Qual (PCR) NEGATIVE (Negative) SARS-CoV-2 RNA (RT-PCR) POSITIVE A (Negative) External Record Review External record reviewed: Inpatient record, Outpatient record, Prior outpatient labs and Prior outpatient radiology Tests considered The following testing was considered but not selected: Considered ultrasound of her right upper quadrant however she has negative Chau sign, she has a biliary stent in place already on prior imaging, low suspicion for acute cholecystitis without fevers or leukocytosis Prescription Management I considered prescription management with: Pain Medication Chronic Conditions Patient?s care impacted by: Other (ETOH disorder) Critical Care Time Critical Care Time Critical Care Time: No Discharge Plan Discharge Clinical Impression: COVID-19 Patient Disposition: Home, Self-Care Instructions: COVID-19 (Coronavirus Disease 2019) (ED) Additional Instructions: You were found to be COVID-19 POSITIVE today. Your exam and oxygen levels were normal. Your labs showed low pancreas levels which is not consistent with acute pancreatitis. Rest. Drink plenty of fluids. Do not go out in public while you are not feeling well. Take over the counter cold/flu medications as needed for your symptoms. Take Tylenol and/or Motrin as needed for fevers and body aches. Recommend rest and plenty of oral hydration. Stick to a bland diet like soup and toast while you are not feeling well. Take the prescribed medication as needed for nausea. Recommend over the counter Pepto Bismol or Imodium for upset stomach and diarrhea. Follow up with your doctor next week. If you develop new or worsening symptoms call 911 or come back to the ER for further evaluation. Prescriptions: New ondansetron 4 mg tablet,disintegrating 4 mg PO Q8H PRN (Reason: nausea and vomiting) Qty: 7 0RF omeprazole 20 mg capsule,delayed release(DR/EC) 20 mg PO DAILY Qty: 10 0RF No Action heparin (porcine) 5,000 unit/mL Solution 6,300 unit IVPUSH PROTOCOL BOLUS PRN (Reason: 80 Unit/Kg - Heparin Protocol) Qty: 100 0RF heparin (porcine) 5,000 unit/mL Solution 3,100 unit IVPUSH PROTOCOL BOLUS PRN (Reason: 40 Unit/Kg - Heparin Protocol) Qty: 100 0RF hydromorphone 1 mg/mL Syringe 1 mg IVPUSH Q2H PRN (Reason: Pain, Moderate(Pain Scale 4-6)) Qty: 5 0RF Protocol: Hold for RR < HOLD and contact provider for RR < (bpm): 12 Rx Instructions: Partial Fill upon patient request. heparin(porcine) in 0.45% NaCl 25,000 unit/250 mL Parenteral Solution 25,000 unit continuous IV infusion .Q0M Qty: 100 0RF lactated Ringers Parenteral Solution 150 ml IV .per hour 2 Days Rx Instructions: until hemodynamically stable morphine 15 mg tablet 15 mg PO Q6H PRN (Reason: pain) Qty: 14 0RF Rx Instructions: Partial Fill upon patient request. ondansetron 4 mg tablet,disintegrating 4 mg PO Q6H PRN (Reason: nausea and vomiting) Qty: 10 0RF omeprazole 20 mg capsule,delayed release(DR/EC) 20 mg PO DAILY Qty: 30 0RF Referrals: Ibeth Lassiter MD [Primary Care Provider] - Print Language: Bengali
[2024-06-06 12:20] LABS: MANUAL DIFF FLAG NO
[2024-06-06 12:23] LABS: Appearance Urine Clear; Color Urine Yellow; Glucose Urine UA Negative (Negative); Leukocyte Esterase Urine Trace (Negative); Nitrite Urine Negative (Negative); Specific Gravity - Urine >= 1.030 (1.005-1.025); UMIC TRIGGER UACC YES; Urine Blood Negative (Negative); Urine Ketones Trace mg/dL (Negative); Urine Protein Trace mg/dL (Neg-Trace)
[2024-06-06 12:23] LABS: Basophils Percent Auto 0.5 % (0-2); Eosinophils Absolute Auto 0.1 X10*3/uL (0.0-0.4); Hematocrit 34.9 % (37.0-47.0); Hemoglobin 10.9 g/dl (12.0-16.0); Imm Gran Abs Auto 0.04 X10*3/uL (0.00-0.03); Imm Gran Pct Auto 0.5 % (0.0-0.4); Lymphocytes Percent Auto 11.6 % (20-40); Mean Corpuscular HGB Conc 31.2 g/dl (31.0-35.0); Mean Corpuscular Hemoglobin 25.3 pg (27.0-33.0); Mean Corpuscular Volume 81.2 fL (80.0-98.0); Monocytes Absolute Auto 0.4 X10*3/uL (0.1-1.2); Monocytes Percent Auto 5.2 % (2-11); Neutrophils Absolute Auto 6.7 x10*3/uL (2.0-8.3); Neutrophils Percent Auto 81.2 % (45-73); Platelet Count 257 X10*3/uL (160-400); Red Cell Distribution Width 14.3 % (11.0-16.0); White Blood Count 8.2 X10*3/uL (4.8-10.8)
[2024-06-06 12:27] LABS: Prothrombin Time 11.6 SEC (10.9-12.4)
[2024-06-06 12:32] LABS: Bacteria Urine None Seen (None Seen); Calcium Oxalate Crystals Urine Present; Hyaline Casts Urine 0-2 /LPF (0-2); RBC Urine 0-2 /HPF (0-2); WBC Urine 0-5 /HPF (0-5)
[2024-06-06 13:01] LABS: Amylase 73 U/L (28-100); Ethanol < 10 mg/dL
[2024-06-06 13:03] LABS: Alanine Aminotransferase 46 U/L (0-31); Albumin Level 4.2 g/dL (3.5-5.0); Alkaline Phosphatase 163 U/L (39-117); Anion Gap 9 (12-20); Aspartate Amino Transferase 32 U/L (5-31); Bilirubin Total 0.3 mg/dL (0.0-1.0); Blood Urea Nitrogen 9 mg/dL (9-16); Calcium 8.4 mg/dL (8.4-10.2); Carbon Dioxide 22 mmol/L (22-29); Chloride 111 mmol/L (96-108); Creatinine Clr Calc Pharmacy 116.6; Estimated Glomerular Filt Rate > 60; Glucose Random 131 mg/dL (60-115); Lipase 6 U/L (8-78); Potassium 3.8 mmol/L (3.3-5.1); Sodium 138 mmol/L (135-145)
[2024-06-06 13:06] LABS: Influenza A PCR NEGATIVE (Negative); Influenza B PCR NEGATIVE (Negative); Resp Syncy Virus RNA Qual PCR NEGATIVE (Negative); SARS COV2 PCR INHOUSE POSITIVE (Negative)
[2024-06-06 13:08] LABS: HCG Quantitative < 2 mIU/mL
[2024-06-06 15:24] VITALS: BP 107/61; PULSE 99; RESP 16; TEMP 36.7; O2SAT 98
[2024-06-06] MEDS: Magnesium Hydrox/Alum Hydrox 30 ML ORAL.SUSP PO (15:52)
[2024-06-06] MEDS: PHENobarb/Hyoscy/Atropine/Scop 10 ML ELIXIR PO (15:52)
[2024-06-06] MEDS: Lidocaine HCl Viscous 2 % 15 ML SOLUTION MUCOUS MEM (15:52)
--- NOTE | 2024-06-06 16:00 | PC.NURSE ---
pt c/o 02/11 abd pain, pt medicated for pain per order
--- OUTSIDE RECORDS SUMMARY | 2024-06-06 16:36 | XMS_ITS | Continuity of Care Document ---
Author Organization [facility] ter Address [address] [place] [id number]- Support Name Relationship Address Phone PETE ACOSTA domestic partner Unknown Unavaila OC Camacho Other Unknown Unavailable Encounter [facility] Date(s): 05/22/24 - 05/25/[address] [address]- Encounter Diagnosis Hematemesis(Final) - 05/22/24 Hematemesis(Final) - 05/22/24 Discharge Disposition: A-D/C Home Attending Physician: Bhargavi REN, Gustavo Posadas Admitting Physician: Franki REN, Shahram Lopes Referring Physician: Not on Staff, Referring MD Encounter Type: Disch IP Allergies, Adverse Reactions, Alerts No Known Allergies Medications Acetaminophen Tablet 650 mg, Tablet, By Mouth, Every 4 hours, PRN for Pain , Mild, Temperature Greater than 100.5, Routine, 05/22/24 4:30:00 AM EST Start Date: 05/22/24 Stop Date: 05/26/24 Status: Discontinued Repeat number: 1 Creon 36,000 units oral delayed release capsule 1 capsule, By Mouth, 3 times a day, swallow whole or sprinkle contents over a teaspoonful of applesauce, # 270 capsule, 0 Refills, Maintenance, 05/22/24 8:57:00 AM EST, CR Capsule, Partial fill upon patient request if the prescription is for a schedule II opioid drug. Start Date: 05/22/24 Status: Ordered Quantity: 270.0 Unit: capsule Repeat number: 1 HYDROmorphone Inj 0.5 mg, Injection, IV Push Slowly, Every 4 hours, PRN for Pain , Severe, Routine, 05/23/24 1:37:00 PM EST Start Date: 05/23/24 Stop Date: 05/26/24 Status: Discontinued Repeat number: 1 hydrOXYzine pamoate 50 mg oral capsule 1 capsule = 50 mg, By Mouth, Every 6 hours, PRN as needed for anxiety Start Date: 04/08/24 Status: Ordered Repeat number: 1 MiraLax oral powder for reconstitution = 17 Gm, By Mouth, Daily, PRN Constipation, for 30 days, # 238 Gm, 0 Refills, Acute 06/24/24 1:58:00PM EST, 05/25/24 1:58:00 PM EST, REC Powder, [id number], Partial fill upon patientrequest if the prescription is for a schedule II opioid drug., 17 Gm By Mouth Daily,x30 days,PRN:Constipation, 160, cm, 05/25/24 0:23:00 EST, Height, 58, kg, 05/22/24 8:15:00 EST, Dry Weight Start Date: 05/25/24 Stop Date: 06/24/24 Status: Ordered Quantity: 238.0 Unit: g Repeat number: 1 Indication: Personal history of other diseases of the digestive system morphine 15 mg oral tablet, immediate release 1.5 tablet = 22.5 mg, By Mouth, Every 12 hours, 0 Refills Start Date: 05/22/24 Status: Ordered Repeat number: 1 olanzapine 20 mg oral tablet, disintegrating 1 tablet = 20 mg, Sublingual, Daily at bedtime, allow tablet to dissolve on tongue Start Date: 05/12/24 Status: Ordered Repeat number: 1 pantoprazole 40 mg oral delayed release tablet 1 tablet = 40 mg, By Mouth, 2 times a day, PRN as needed, # 112 tablet, 0 Refills, Maintenance, 05/25/24 1:59:00 PM EST, EC Tablet, 160, cm, 05/25/24 0:23:00 EST, Height, 58, kg, 05/22/24 8:15:00 EST, Dry Weight Start Date: 05/25/24 Stop Date: 07/20/24 Status: Ordered Quantity: 112.0 Unit: tablet Repeat number: 1 Indication: Other gastritis with bleeding pregabalin 100 mg oral capsule 1 capsule = 100 mg, By Mouth, 2 times a day, 0 Refills, Maintenance, 05/22/24 8:57:00 AM EST, Capsule, Partial fill upon patient request if the prescription is for a schedule II opioid drug. Start Date: 05/22/24 Status: Ordered Repeat number: 1 traMADol 50 mg oral tablet 1 tablet = 50 mg, By Mouth, Every 6 hours, PRN for pain, Maintenance, 05/22/24 3:09:00 PM EST, Tablet, Partial fill upon patient request if the prescription is for a schedule II opioid drug. Start Date: 05/22/24 Status: Ordered Repeat number: 1 Problem List Condition Confirmation Course Effective Dates Status [facility] atus Informant Hematemesis Confirmed Active Hypokalemia Confirmed Active Results Radiology Reports * Exam Date Time Procedure Performing Provider Status 05/21/24 11:[address] Abd/Pelvis W/ IV Contrast Only Lin Ayers; Auth (Verified) Notes: (CT Abd/Pelvis W/ IV Contrast Only) Reason For Exam: epigastric pain, recent cholecystectomy;Other: RESULT: CT Abd/Pelvis W/ IV Contrast Only CT Abd/Pelvis W/ IV Contrast Only Hx of Present Illness: vomiting and had her gall bladder removed last week tonight she got nauseousand threw up and states it was bright red blood. has a history of pancreatitis; Reason: Status postcholecystectomy 05/13/2024 TECHNIQUE: Spiral CT through the abdomen and pelvis with IV contrast formatted in 3 planes. 100 cc of Isovue 300 was administered intravenously. This study was performed without oral contrast. Weight-based protocol using automatic tube modulation was used to optimize exposure parameters. CTDIvol Body: 11.10 mGy, DLP Body: 585 mGy*cm. COMPARISON: 05/11/2024 and multiple priors FINDINGS: [place] Findings, Lines and Tubes: None. Visualized Chest: Lung bases are clear. No pleural effusion. The heart is normal in size. No pericardial effusion. Diaphragm: Normal. Liver: Diffuse low-attenuation throughout the liver parenchyma consistent with hepatic steatosis. No evidence of mass. Gallbladder: Absent consistent with prior cholecystectomy. 1.5 x 2.4 x 0.8 cm soft tissue density in the gallbladder fossa (series 201, image 46). No rim enhancement or surrounding inflammatory changes. Bile ducts: Stent in the common bile duct. No biliary ductal dilation. Spleen: Normal. Pancreas: 0.9 x 0.9 cm rounded cystic lesion at the pancreatic head anteriorly likely representing a pseudocyst. (Series 201, image 38). No main pancreatic ductal dilation or surrounding inflammatorychanges. Adrenal glands: Normal. Kidneys and ureters: No hydronephrosis, stones, or suspicious masses. Bladder: Normal. Reproductive organs: Unremarkable. Stomach, small bowel, and large bowel: Mild to moderate stool retention throughout the colon. Normal caliber small and large bowel without evidence of obstruction or inflammation. Appendix: Not seen, but no evidence of appendicitis. Peritoneum and retroperitoneum: No ascites or pneumoperitoneum. No omental or mesenteric lesions. Lymph nodes: No enlarged lymph nodes. Blood vessels: Normal. No aneurysm. No evidence of venous thrombosis. Abdominal and pelvic wall: Fat stranding along the port incision site without evidence of fluid collection or other complication. Bones: No acute abnormality. IMPRESSION: 1. Status post cholecystectomy. 2.4 cm complex density in the gallbladder fossa in the setting of recent cholecystectomy likely represents residual blood products. Differential diagnosis would also include phlegmonous changes. Recommend correlating with patient's lab values to exclude infection. 2. 9 mm likely pseudocyst in the anterior pancreatic body new since 05/11/2024. No peripancreatic inflammatory changes or edema. 3. Hepatic steatosis. 4. [id number] stool retention throughout the colon. Preliminary results were conveyed via telephone by Dr. Hays to PRISCILLA Jimenez on 05/22/2024 at 12:03 AM with understanding acknowledged. I have personally reviewed the images and I agree with this report. WSN: [id number] Ordering Physician: Nelda Rosen Dictated By: Chadwick Hays MD Dictated Date/Time: 05/22/24 7:45 am Reviewed By: Arcadio Baxter MD Signed By: Arcadio Baxter MD Signed Date/Time: 05/22/24 7:50 am Transcribed By: MIKI Transcribed Date/Time: 05/22/24 0:59 am * Exam Date Time Procedure Performing Provider Status 05/21/24 11:06 PM Chest Portable Aguilar , Marvin; Aut h (Verified) Notes: (Chest Portable) Reason For Exam: Shortness of Breath RESULT: Chest Portable Chest Portable INDICATION: Vomiting and had her gall bladder removed last week tonight she got nauseous and threw up and states it was bright red blood. Patient has a history of pancreatitis; Reason: Shortness of Breath. COMPARISON: 08/16/2022. FINDINGS: LINES AND TUBES: None. LUNGS AND PLEURA: The lungs are clear. No pleural effusion. No pneumothorax. HEART, MEDIASTINUM AND NAYELI: Normal. BONES AND SOFT TISSUES: Normal. IMPRESSION: Normal. I have personally reviewed the images and I agree with this report. WSN: [id number] Ordering Physician: Nelda Rosen Dictated By: Lui Shipley MD Dictated Date/Time: 05/21/24 11:09 p Reviewed By: Dimple Bernardo MD Signed By: Dimple Bernardo MD Signed Date/Time: 05/21/24 11:14 pm Transcribed By: MIKI Transcribed Date/Time: 05/21/24 11:08 pm Vital Signs Most recent to oldest [Reference Range]: 1 2 3 Height 160 cm (05/25/24 12:23 AM) 160 cm (05/24/24 8:15 PM) 160 cm (05/24/24 12:09 AM) Weight 58 kg (05/23/24 2:45 PM) 58 kg (05/22/24 8:03 AM) Oxygen Saturation [94-100 %] 100 % (05/25/24 12:00 PM) 100 % (05/25/24 7:00 AM) 97 % (05/25/24 12:23 AM) Pulse Rate [55-90 bpm] 72 bpm (05/25/24 12:00 PM) 93 bpm *H* (05/25/24 7:00 AM) 88 bpm (05/25/24 12:23 AM) Body Mass Index [18.5-24.99 kg/m2] 22.66 kg/m2 (05/23/24 2:45 PM) 22.66 kg/m2 (05/22/24 8:03 AM) Blood Pressure [90-138/55-84 mm Hg] 105/48mm Hg (05/25/24 12:00 PM) 120/65mm Hg (05/25/24 7:00 AM) 102/55mm Hg (05/25/24 12:23 AM) Respiratory Rate [16-30 br/min] 17 br/min (05/25/24 12:09 PM) 18 br/min (05/25/24 11:39 AM) 18 br/min (05/25/24 10:50 AM) Temperature [96.8-100.4 DegF] 97.9 DegF (12/22/24 12:00 PM) 98.1 DegF (05/25/24 7:00 AM) 98.6 DegF (05/25/24 12:23 AM) Mode of Delivery (Oxygen) Room air (05/25/24 12:00 PM) Room air (05/25/24 7:00 AM) Room air (05/25/24 12:23 AM) Blood pressure sites Arm, left (05/25/24 12:00 PM) Arm, left (05/25/24 7:00 AM) Arm, left (05/25/24 12:23 AM) Temperature Route Oral (05/25/24 12:00 PM) Oral (05/25/24 7:00 AM) Oral (05/25/24 12:23 AM) Dry Weight 58 kg (05/22/24 8:03 AM) Social History Social History Type Response Smoking Status Never (less than 100 in lifetime) entered on: 09/25/23 Sex Sex Representation Female (finding) Admission evaluation note * Sonia REN, Danielle Atkinson: PERFORM, MODIFY, MODIFY Event Display: Admission Note Authored Date: [id number] Patient: ??AGUILAR, CORRINE ? Age:??28 Years?Sex:??Female?:??1995?? Chief Complaint/Reason for Consultation Abdominal pain, hematemesis History of Present Illness 28-year-old female with a past medical history of EtOH abuse, has not used alcohol since September, EtOH associated pancreatitis, splenic/portal venous thrombosis, history of necrotizing pancreatitis requiring IR percutaneous drainage,?? disconnected pancreatic duct syndrome, post ERCP pancreatitis and chronic pancreatitis, recent acute cholecystitis, s/p robotic-assisted laparoscopic cholecystectomydone on 05/13 comes to the emergency room for 1 episode of hematemesis yesterday around 7 PM, 05/21/2024.?? Patient states that she has been having acute on chronic worsening of epigastric discomfortfor the past 2 days although does not report any nausea or vomiting until yesterday.?? States that out of the blue, suddenly, she vomited about half cup of blood mixed with vomitus.?? Endorses sharp abdominal pain, 02/11 with partial relief with IV Dilaudid As a part of workup, she had a chest x-ray that was nonacute, CT abdomen/pelvis was done that showed status postcholecystectomy and a 2.4 cm complex density in the gallbladder fossa in the setting ofrecent cholecystectomy likely represents residual blood products. Differential diagnosis would alsoinclude phlegmonous changes.?? 9 mm likely pseudocyst in the anterior pancreatic body new since 05/11. No peripancreatic inflammatory changes or edema.?? Hepatic steatosis and mild to moderate stool retention throughout the colon.?? Patient does not have a history of esophageal varices. Given this abnormal findings on CT, surgical consultation was requested who suggested that there was no acute surgical intervention needed and recommended GI consult for hematemesis.?? GI consultation has been requested During my evaluation of the patient, she is resting peacefully, afebrile, blood pressure 100/52 andsaturating 99% on room air I do not have any new labs since yesterday night, however hemoglobin was 11.1 at presentation, hematocrit was 34.9, there was no leukocytosis, white count was 8.8 and platelet count was 294.?? Sodiumwas 136, potassium was 3.5, chloride/bicarb 100/25, BUN/creatinine 7/0.59.?? Does have elevated alk phos???162 but otherwise lipase was lower???8.?? AST/ALT 29/45, normal serum lactate, serum blood test negative, COVID swab negative ?? Interventions performed???she has received several doses of IV Dilaudid, IV pantoprazole IV Zofran and has been given 2 L of saline bolus ?? Admitted for hematemesis, acute on chronic epigastric pain, chronic pancreatitis Review of Systems GEN: ??Denies any issues with sleep, fatigue or changes in wt. HEENT: Denies runny nose, dry mouth, ??sore throat or changes to his vision. CV: Denies CP, palpitations, edema or orthopnea. PULM: Denies any SOB, wheezing, cough.? ABD:??Positive for nausea, vomiting, epigastric discomfort,??hematemesis as mentioned above. ??Denies any changes to bowel habits or stool character : Denies dysuria, polyuria, or hematuria. EXT: Denies any joint pain, stiffness, numbness or tingling.?? PSYCH: Denies any depression or anxiety. Objective Vital Signs?? Temperature: 97.6 DegF (05/22/24 08:03:00) Temperature: 97.8 DegF (05/22/24 08:03:00) Temperature Route: Oral (05/22/24 08:03:00) Temperature Route: Oral (05/22/24 08:03:00) Pulse Rate: 68 bpm (05/22/24 08:03:00) Pulse Rate: 68 bpm (05/22/24 08:03:00) Respiratory Rate: 17 br/min (05/22/24 08:03:00) Respiratory Rate: 17 br/min (05/22/24 08:03:00) Systolic Blood Pressure: 100 mm Hg (05/22/24 08:03:00) Systolic Blood Pressure: 100 mm Hg (05/22/24 08:03:00) Diastolic Blood Pressure:??52 mm Hg??Low (05/22/24 08:03:00) Diastolic Blood Pressure:??52 mm Hg??Low (05/22/24 08:03:00) Blood pressure sites: Arm, left (05/22/24 08:03:00) Blood pressure sites: Arm, left (05/22/24 08:03:00) Mean Arterial Pressure: 68 mm Hg (05/22/24 08:03:00) Mean Arterial Pressure: 68 mm Hg (05/22/24 08:03:00) Pulse Pressure: 48 mm Hg (05/22/24 08:03:00) Pulse Pressure: 48 mm Hg (05/22/24 08:03:00) Oxygen Saturation: 99 % (05/22/24 08:03:00) Mode of Delivery (Oxygen): Room air (05/22/24 08:03:00) Early Warning Score: 3 (05/22/24 08:16:11) ? Intake/Output? No Data Available ? Physical Exam ? General Appearance: This is a young woman, alert awake oriented x 3 during my evaluation,??resting in bed comfortably, does not appear to be in any acute distress Eyes: EOMI. KRISTOPHER. No scleral icterus. ENT: ??MM moist. Dentition intact.?? Cardiovascular: RRR S1 and S2 heard with no M/R/G. No JVD. Respiratory: ??Breath sounds clear to auscultation bilaterally. No wheezing. Good air movement throughout both lungs. GI: Abdomen is soft, epigastric??tenderness noted, nondistended, bowel sounds are present, no organomegaly??on my exam MS: ??No edema or erythema in the lower extremities. No wounds seen on the feet. Peripheral sensation intact. No spinal or paraspinal tenderness. ??No CVA tenderness. Skin:??No rashes seen on chest, abdomen, or back. ? Neuro: ??No slurred speech. Upper extremity strength equal bilaterally with 5/5 strength in flexion, extension and maintenance dispatcher. ??Lower extremity strength equal bilaterally with 5/5 strength. ??Reflexes 2+ throughout. ?? Psych: Alert and oriented x3. Appropriate and pleasant.?? Lines: Peripheral IV in place.?? Assessment/Plan Diagnoses Anxiety ??(F41.9) Chronic alcoholic pancreatitis ??(K86.0) Hematemesis ??(K92.0) Hematemesis ??(K92.0) Hematemesis ??(K92.0) Splenic vein thrombosis ??(I82.890) Pancreatic pseudocyst ?? Assessment:??28-year-old female with a past medical history of EtOH abuse, has not used alcohol since September, EtOH associated pancreatitis, splenic/portal venous thrombosis, history of necrotizing pancreatitis requiring IR percutaneous drainage,??disconnected pancreatic duct syndrome, post ERCP pancreatitis and chronic pancreatitis, recent acute cholecystitis, s/p robotic-assisted laparoscopic cholecystectomy done on 05/13 comes to the emergency room for 1 episode of hematemesis yesterday around7 PM, 05/21/2024. Admitted for hematemesis, acute on chronic epigastric pain, chronic pancreatitis ?? Hematemesis (K92.0):??1 episode of??hematemesis yesterday around??7 PM, no episodes??since.?? No history of??esophageal varices, denies active alcohol use. Differential diagnoses include??PUD/Dasia-Chandlre tear, esophagitis/gastritis Maintain n.p.o., IV PPI twice daily. Stat CBC, as needed IV??Zofran.?? She is hemodynamically stable and has had no episodes??since yesterday. GI consult requested for??consideration of EGD ?? Addendum???2:17 PM???patient seen by GI, n.p.o. after midnight, EGD tomorrow ?? Chronic alcoholic pancreatitis (K86.0):??Patient has chronic alcoholic pancreatitis, currently lipase is not elevated??and there is no peripancreatic inflammation on CT.??Will continue Creon,??IV fluids ordered. Patient is on morphine IR at home??oral morphine ordered at home dose along with as needed IV Dilaudid for??pain. along with as needed IV Zofran for nausea/vomiting.??Continue pregabalin. Additionally, constipation??could be contributing to pain, scheduled??MiraLAX and senna ordered. ??As needed??bisacodyl suppository ordered as well as per GI recommendation. ?? Abnormal CT findings??? CT abdomen/pelvis was done that showed status postcholecystectomy and a 2.4 cm complex density in the gallbladder fossa in the setting of recent cholecystectomy likely represents residual blood products. Differential diagnosis would also include phlegmonous changes.?? 9 mm likely pseudocyst in the anterior pancreatic body new since 05/11/2024. No peripancreatic inflammatory changes or edema.?? Hepatic steatosis and mild to moderate stool retention throughout the colon.?? Patient does not have a history of esophageal varices. Given this abnormal findings on CT, surgical consultation was requested who suggested that there was no acute surgical intervention needed and recommended GI consult for hematemesis.?? GI consultation has been requested ?? Splenic vein thrombosis (I82.890):??Not on Eliquis anymore ?? Anxiety (F41.9):??As needed hydroxyzine ordered.??Also takes olanzapine, continue. ?? VTE Prophylaxis:??Ambulatory patient.??Will provide pneumoboots.??No chemical DVT prophylaxis in the setting of hematemesis ?VTE Prophylaxis Assessment:??VTE Prophylaxis Ordered ?? Discharge Planning:??Pending GI eval,??could potentially be discharged in a day or 2 ?? Ongoing Medical Necessity:??Pending GI eval ?? Code Status:??Full code ?Order Code Status:??Code Status Ordered ? Estimated Discharge Date: 05/23/2024??or 05/24/2024 ? Histories Allergies Allergies ?(Active and Proposed Allergies Only) NKA? (Severity: Unknown severity, Onset: Unknown) ? Past Medical History/Problem List Active Problems(2) Hematemesis Hypokalemia ? Past Surgical History Cholecystectomy ? Social History Alcohol Details:??Use: Past. Substance Abuse Details:??Use: Never. Tobacco Details:??Use: Never (less than 100 in lifetime). ? Family History Mat. Grandmother: Diabetes mellitus ? Medications Home Medications HydrOXYzine (hydrOXYzine pamoate 50 mg oral capsule)?TAKE 1 CAPSULE BY MOUTH EVERY 6 HOURS NEEDED FOR ANXIETY Mirtazapine (mirtazapine 7.5 mg oral tablet)?TAKE ONE TABLET AT BEDTIME Morphine (morphine 15 mg oral tablet, immediate release)?1?tab(s)?15?Milligram?By Mouth?Every 12 hours?AND 1 TABLET ONCE PER DAY?2?30 Morphine (morphine 15 mg oral tablet, immediate release)?TAKE 1&1/2 TABLETS EVERY 12 HOURS Olanzapine (olanzapine 20 mg oral tablet, disintegrating)?DISSOLVE 1 TABLET ON THE TONGUE AT BEDTIME Pancrelipase (Creon 36,000 units oral delayed release capsule)?1?capsule?By Mouth?3 times a day?swallow whole or sprinkle contents over a teaspoonful of applesauce Pantoprazole (pantoprazole 40 mg oral delayed release tablet)?1?tab(s)?40?Milligram Pregabalin (pregabalin 100 mg oral capsule)?1?capsule?100?Milligram?By Mouth?2 times a day ? Results Recent Labs BLOOD COUNT & DIFF WBC 8.8 k/mm3 ()?? 05/21/2024 21:58 RBC 4.34 m/mm3 ()?? 05/21/2024 21:58 Hgb 11.1 Gm/dL (Low)?? 05/21/2024 21:58 Hct 34.9 % (Low)?? 05/21/2024 21:58 MCV 80.4 femtoliters ()?? 05/21/2024 21:58 MCH 25.6 pg (Low)?? 05/21/2024 21:58 MCHC 31.8 Gm/dL (Low)?? 05/21/2024 21:58 Platelet Count 294 k/mm3 ()?? 05/21/2024 21:58 RDW-SD 42.8 femtoliters ()?? 05/21/2024 21:58 MPV 11.0 femtoliters ()?? 05/21/2024 21:58 Nucleated RBC (Automated) 0.0 #/100 WBC'S ()?? 05/21/2024 21:58 Abs. NRBC 0.0 k/mm3 ()?? 05/21/2024 21:58 Abs. Neut 5.5 k/mm3 ()?? 05/21/2024 21:58 Abs. Lymph 2.6 k/mm3 ()?? 05/21/2024 21:58 Abs. Vigo 0.5 k/mm3 ()?? 05/21/2024 21:58 Abs. Eo 0.1 k/mm3 ()?? 05/21/2024 21:58 Abs. Baso 0.0 k/mm3 ()?? 05/21/2024 21:58 Neut % 62.4 % ()?? 05/21/2024 21:58 Lymph % 29.7 % ()?? 05/21/2024 21:58 Vigo % 6.2 % ()?? 05/21/2024 21:58 Eos % 1.1 % ()?? 05/21/2024 21:58 Baso % 0.3 % ()?? 05/21/2024 21:58 Imm Gran 0.3 % ()?? 05/21/2024 21:58 Abs. Imm Gran 0.0 k/mm3 ()?? 05/21/2024 21:58 ?? CHEM GENERAL Sodium 136 mmol/L ()?? 05/21/2024 21:58 Potassium 3.5 mmol/L (Low)?? 05/21/2024 21:58 Chloride 100 mmol/L ()?? 05/21/2024 21:58 Bicarbonate Level 25 mmol/L ()?? 05/21/2024 21:58 Anion Gap 11 ()?? 05/21/2024 21:58 Glucose Level 100 mg/dL (High)?? 05/21/2024 21:58 BUN 7 mg/dL ()?? 05/21/2024 21:58 Creatinine-Blood 0.59 mg/dL ()?? 05/21/2024 21:58 Estimated GFR Creatinine 126 ML/MIN/1.73 M2 ()?? 05/21/2024 21:58 Calcium 9.2 mg/dL ()?? 05/21/2024 21:58 Protein, Total 7.3 Gm/dL ()?? 05/21/2024 21:58 Albumin 4.4 Gm/dL ()?? 05/21/2024 21:58 AG Ratio 1.5 ()?? 05/21/2024 21:58 Alkaline Phosphatase 162 units/L (High)?? 05/21/2024 21:58 Lipase 8 units/L (Low)?? 05/21/2024 21:58 AST (SGOT) 29 units/L ()?? 05/21/2024 21:58 ALT (SGPT) 45 units/L (High)?? 05/21/2024 21:58 Bilirubin, Total 0.3 mg/dL ()?? 05/21/2024 21:58 Lactate 1.3 mmol/L ()?? 05/21/2024 21:58 ?? ENDOCRINE/TUMOR MARKER Blood <1 mIU/mL ()?? 05/21/2024 21:58 ?? URINE OTHER Est Creatinine Clearance 117.39 mL/min ()?? 05/22/2024 08:16 ?? VIROLOGY COVID-19 by RT-PCR NEGATIVE ()?? 05/22/2024 04:15 ? Urinalysis Est Creatinine Clearance: 117.39 mL/min (08:16) ? Hospital Progress note * Trinh Hoover RN: VERIFY, PERFORM, SIGN Event Display: Progress Note Hospital Authored Date: Patient: CORRINE AGUILAR Age: 28 years Sex: Female : 1995 Associated Diagnoses: None Author: Trinh Hoover RN Patient A & Ox4, able to make needs known, answering all questions appropriately. Reporting 10 out of 0-10 pain in her abdomen, medications given with some effect. Denying nausea or vomiting. Tolerating diet and medications po, with good appetite, eating 90-100% of meals. Monitoring POC per orders. +BS. Continent of both, no voiding issues noted. Skin intact with past surgical 4 lap site scars in abdomen, +pulses, no BLE edema, dry, warm to touch with color matching ethnicity. Independent in room , steady gait and able to change position in bed. +Pneumo boots at times. On room air no s/s of hypoxia, such as cyanosis, or SOB. Education on incentive spirometer given to patient. Iv flushed, standard care completed, patent. Education salon professional latham and fall precautions given. Bed lowest locked position, with call latham, maintenance dispatcher socks and bed alarm on. Will continue hourly rounding. See CIS for further information. Plan of care ongoing. Findings Problem Related to Alteration in Comfort : Alteration in Comfort/new 05/25/2024 12:04 EST Alteration in Comfort Related to Disease process Goals & Outcomes: Comfort Pt will report acceptable level of comfort & pain control, Pt will state importance of adhering to pain strategy regime, Pt will demonstrate necessary skills to manage pain, Non-verbal indicators will indicate comfort/pain control Interventions Implemented: Comfort Assess pain using appropriate pain scale/tools, Assess aggravating factors & prevent them accordingly, Assess alleviating factors & promote them accordingly BH Goals/Interventions, Comfort Yes Comfort, Problem Start 05/25/2024 8:00 Reviewed plan with, Comfort Patient Patient Progression, Comfort Pt progressing according to plan Comfort, Problem Ongoing Yes . Alteration in Gastrointestinal : Alteration in Gastrointestinal Func/new 05/25/2024 12:03 EST Alteration in GI status Related to Pancreatitis Goals & Outcomes, Gastrointestinal Establish a regular pattern of elimination for pt, Nutritional intake is adequate for metabolic needs, Pt will achieve normal/improved fluid balance, Pt will have a bowel movement prior to discharge, Pt will maintain adequate GI function appropriate for pt, Ptwill maintain normal elimination patterns, Pt will resume/maintain adequate hemodynamic status, Pt w ill tolerate age appropriate diet prior to discharge Interventions, Gastrointestinal Assess/monitor abdomen for distention, tenderness, Assess/monitor abdominal girth & bowel function, Assess/monitor bowel pattern, bowel sounds, flatus, Assess/monitor number of bowel movements, Assess/monitor color, quantity, quality, consistency of stoo, Assess/monitor pt for nausea, vomiting, Assess/monitor effects of re-hydration, Assess/monitor intake &output, Assess if pt tolerating diet, DVT prophylaxis as ordered BH Goals/Interventions, Gastrointestinal Yes Gastrointestinal, Problem Start 05/25/2024 7:00 Reviewed plan with, Gastrointestinal Patient Patient Progression, Gastrointestinal Pt progressing according to plan . Falls Risk Assessment 05/25/2024 8:00 EST Fall Elimination No impairment Fall Agitation/Anxiety/Depression No impairment Fall Related Sign/Symptom/Condition None Fall Cognitive Limitations No impairment Fall Sensory and Physical Function No impairment Fall High Risk for Injury None of the above Total Falls Risk Score 0 Fall Risk Level No Risk Falls Prevention Plan for Low Risk Bed in lowest locked position, Provide patient/family falls prevention education, Evaluate footwear & ensure patient has non-skid slippers, Place personal care items & call latham within reach, Instruct patient/family to request assistance with ambulatio, Instruct patient/family not to get up without assistance, Supervise the patient when ambulating or making transfers, Check that needs are met to minimize attempts to get up, Hourly rounds, Ensure safe & uncluttered environment, Communicate falls risk to all providers . * Briseyda Ramsey RN: MODIFY, SIGN, VERIFY, PERFORM Event Display: Progress Note Hospital Authored Date: Patient: CORRINE AGUILAR Age: 28 years Sex: Female : 1995 Associated Diagnoses: None Author: Briseyda Ramsey RN Findings Problem Related to Alteration in Gastrointestinal : Alteration in Gastrointestinal Func/new 05/25/2024 1:00 EST Alteration in GI status Related to Gastritis, Pancreatitis Goals & Outcomes, Gastrointestinal Establish a regular pattern of elimination for pt, Nutritional intake is adequate for metabolic needs, Pt will achieve normal/improved fluid balance, Pt will have a bowel movement prior to discharge, Pt will maintain adequate GI function appropriate for pt, Ptwill maintain normal elimination patterns, Pt will resume/maintain adequate hemodynamic status, Pt w ill tolerate age appropriate diet prior to discharge Interventions, Gastrointestinal Assess/monitor abdomen for distention, tenderness, Assess/monitor abdominal girth & bowel function, Assess/monitor bowel pattern, bowel sounds, flatus, Assess/monitor number of bowel movements, Assess/monitor color, quantity, quality, consistency of stoo, Assess/monitor pt for nausea, vomiting, Assess/monitor effects of re-hydration, Assess/monitor intake &output, Assess if pt tolerating diet, Elevate HOB to facilitate lung expansion, prevent aspiration,Teach Pt/caregiver re: importance of bowel regime, Teach/encourage deep breath & cough exercises BH Goals/Interventions, Gastrointestinal Yes Gastrointestinal, Problem Start 05/22/2024 8:22 Reviewed plan with, Gastrointestinal Patient Patient Progression, Gastrointestinal Pt progressing according to plan . Evaluation Pt A&Ox4. Medications administered per AUG. Denies SOB, N/V/D, and chest pain. C/o pain 02/11 inabdomen and epigastic area, prn and scheduled medications given with some effect. Pt requested medsto help her sleep due to melatonin not helping, provider ordered trazodone, given with good effect.Tolerating diet well. Safety protocols maintained. Frequent rounding observed. Call light within reach.. * Rosa Rahman RN: VERIFY, PERFORM, SIGN Event Display: Progress Note Hospital Authored Date: Patient: CORRINE AGUILAR Age: 28 years Sex: Female : 1995 Associated Diagnoses: None Author: Rosa Rahman RN Findings Problem Related to Alteration in Gastrointestinal : Alteration in Gastrointestinal Func/new 05/24/2024 6:00 EST Alteration in GI status Related to Gastritis, Pancreatitis Goals & Outcomes, Gastrointestinal Establish a regular pattern of elimination for pt, Nutritional intake is adequate for metabolic needs, Pt will achieve normal/improved fluid balance, Pt will have a bowel movement prior to discharge, Pt will maintain adequate GI function appropriate for pt, Ptwill maintain normal elimination patterns, Pt will resume/maintain adequate hemodynamic status, Pt w ill tolerate age appropriate diet prior to discharge Interventions, Gastrointestinal Assess/monitor abdomen for distention, tenderness, Assess/monitor abdominal girth & bowel function, Assess/monitor bowel pattern, bowel sounds, flatus, Assess/monitor number of bowel movements, Assess/monitor color, quantity, quality, consistency of stoo, Assess/monitor pt for nausea, vomiting BH Goals/Interventions, Gastrointestinal Yes Gastrointestinal, Problem Start 05/22/2024 8:22 Reviewed plan with, Gastrointestinal Patient Patient Progression, Gastrointestinal Pt progressing according to plan . Evaluation Patient is alert and oriented to person, place, time, and event. Patient assessment done per biophysical flowsheet and medicated per AUG. Patient denies any shortness of breath or chest pain. Patientdoes endorse abdominal pain in the epigastric region of 02/11. Patient advanced from a clear liquid diet to a regular diet. Tolerated well with no nausea, no vomitting, no increased pain. Patient sleeping on and off throughout shift. Patient bed is in the lowest position, wheels locked, call light withinr each, upper rails raised, bed alarm on. Patient plan of care is on going. . Consult note * Gaurav REN, Raphael Atkinson: PERFORM, MODIFY, MODIFY, MODIFY Event Display: Consultation Note Authored Date: [id number] Patient: ??AGUILAR, CORRINE ? Age:??28 Years?Sex:??Female?:??1995?? 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 ?? Patient presented yesterday with one day of epigastric pain, nausea and one episode of??hematemesis, 1/2 cup of blood loss.??No melena or hematochezia. No tobacco use and no alcohol use since September. No NSAID use.? Of note she had ERCP on 03/21/2024 for disconnected pancreatic duct with 2.4 cm fluid collection attail (MRCP 02/11/2024). 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 No prior EGD. ?? Vital signs stable. Hgb 11.1 from 9.1 last week. MCV 80. Plt 294. BUN/Cr normal. Lipase 8. ALT 45, alk phos 162, LFTs otherwise unremarkable. CT abd shows 2.4 cm density in GB fossa, likely representing residual blood, and a 9 mm pseudocyst in pancreatic body, new since 05/11/2024. No peripancreatic inflammatory changes or edema. Mild to moderate stool retention. ?? Review of Systems ROS per HPI Physical Exam Vitals & Measurements T:??97.8?F?? TMIN:??97.6?F?? TMAX:??97.9?F?? HR:??64??(Peripheral)?? RR:??17?? BP:??88/40?? SpO2:??100%?? WT:??58??kg?? General:??No acute distress. Well developed HEENT:??Moist mucus membranes. Anicteric sclera Respiratory:??Speaking comfortably. Not dyspneic Cardiovascular:??Normal rate, regular rhythm, no murmurs?? GI/Abdomen:??Normal active bowel sounds, soft, non-tender, non-distended Extremities:??No edema. No clubbing or cyanosis. Skin:??No jaundice. No rash Neurologic:??Alert & Oriented. Moves all extremities.?? 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 GI is consulted for UGIB and pancreatitis.? Hematemesis Differential is broad and includes PUD/esophagitis/gastritis/duodenitis, AVM, Dieulafoy, polyp/neoplasm. No ongoing??bleed, hemoglobin is stable, and??no hemodynamic compromise. She has an??ERCP??scheduled on June 09 but prefers??to have EGD sooner for her bleeding. ?? Recommendations: -EGD tomorrow -IV pantoprazole 40 mg BID -Continue to hold Eliquis -Diet as tolerated, NPO after MN -Monitor H&H; keep??hgb above 7 -Monitor for hemodynamic instability ?? Abdominal pain Constipation We are consulted for pancreatitis. Patient does not meet criteria for pancreatitis given low lipaselevel and absence of??pancreatic inflammation on CT. She also has not had alcohol since September. Her pain can be in the context of constipation (stool burden seen on CT). ?? Recommendations: -Scheduled bowel regimen including miralax, senna, PRN bisacodyl suppostiroy -Continued abstinence from alcohol ?? Disconnected pancreatic duct syndrome ?? Recommendations: -Outpatient ERCP as scheduled on 05/09/2024 for removal of CBD stone ?? Patient discussed with??attending physician??Dr. Scherer ?? Raphael Nolasco MD?? Gastroenterology Fellow - PGY 6 ?? Problem List/Past Medical History Ongoing Hematemesis Hypokalemia Procedure/Surgical History prior ercp Medications Inpatient 0.9% NaCL 1,000 mL, 1000 mL, IV Infusion Acetaminophen Tablet, 650 mg, By Mouth, Every 4 hours, PRN Dextrose 50% Inj Syringe (25Gm), 12.5 Gm, IV Push Slowly, Every 20 minutes, PRN Dextrose 50% Inj Syringe (25Gm), 25 Gm, IV Push Slowly, Every 15 minutes, PRN Docusate Sodium Capsule, 100 mg= 1 capsule, By Mouth, 2 times a day, PRN Glucagon Inj, 1 mg, Intramuscular, Once, PRN Glucose Gel, 15 Gm, By Mouth, Every 20 minutes, PRN Glucose Gel, 30 Gm, By Mouth, Every 20 minutes, PRN HYDROmorphone Inj, 1 mg= 1 mL, IV Push Slowly, Every 4 hours, PRN hydrOXYzine pamoate 25 mg oral capsule, 50 mg, By Mouth, Every 6 hours, PRN Influenza, Trivalent Vaccine, 0.5 mL, Intramuscular, Once Melatonin Tablet, 3 mg, By Mouth, Daily at bedtime, PRN MiraLax Powder, 17 Gm= 1 pack/packet, By Mouth, Daily, PRN mirtazapine 15 mg oral tablet, 7.5 mg, By Mouth, Daily at bedtime NaCL 0.9% Flush, 3 mL, IV Push, Every 8 hours NaCL 0.9% Flush, 3 mL, IV Push, Every 8 hours, PRN olanzapine 10 mg oral tablet, disintegrating, 20 mg, Sublingual, Daily at bedtime Ondansetron Inj, 4 mg, IV Push, Once, PRN Pancrelipase Capsule, 61178 units= 1 capsule, By Mouth, 3 times a day with meals Pancrelipase Capsule, 66690 units= 1 capsule, By Mouth, 3 times a day with meals Pantoprazole Inj, 40 mg, IV Push Slowly, Every 12 hours pregabalin 50 mg oral capsule, 100 mg, By Mouth, 2 times a day Robitussin DM Liquid, 10 mL, By Mouth, Every 4 hours, PRN Senna Tablet, 8.6 mg= 1 tablet, By Mouth, 2 times a day, PRN Simethicone Tablet, 80 mg, Chew, 3 times a day, PRN Home Creon 36,000 units oral delayed release capsule, 1 capsule, By Mouth, 3 times a day hydrOXYzine pamoate 50 mg oral capsule mirtazapine 7.5 mg oral tablet morphine 15 mg oral tablet, immediate release, 30 mg= 2 tablet, By Mouth, Every 12 hours morphine 15 mg oral tablet, immediate release olanzapine 20 mg oral tablet, disintegrating pantoprazole 40 mg oral delayed release tablet, 40 mg= 1 tablet pregabalin 100 mg oral capsule, 100 mg= 1 capsule, By Mouth, 2 times a day Allergies NKA Social History Alcohol Use: Past. Substance Abuse Use: Never. Tobacco Use: Never (less than 100 in lifetime). Family History Diabetes mellitus: Mat. Grandmother. Lab Results Test Name Test Result Date/Time WBC 5.8 k/mm3 05/22/2024 10:22 EST Hgb 10.7 Gm/dL 05/22/2024 10:22 EST Platelet Count 253 k/mm3 05/22/2024 10:22 EST Sodium 140 mmol/L 05/22/2024 10:22 EST Potassium 3.9 mmol/L 05/22/2024 10:22 EST Glucose Level 104 mg/dL 05/22/2024 10:22 EST BUN 4 mg/dL 05/22/2024 10:22 EST Creatinine-Blood 0.47 mg/dL 05/22/2024 10:22 EST Estimated GFR Creatinine 133 ML/MIN/1.73 M2 05/22/2024 10:22 EST * Kevin Scherer DO Tri: PERFORM Event Display: Consultation Note Authored Date: GI Attending Note: ?? The patient was seen, examined and discussed with the??fellow. I have personally reviewed all of the labs and imaging. Additionally, I personally created the assessment and plan of care on rounds anddelineated in the above note. Additional comments as below: ?? no additions ?? Please call with questions or concerns. Thank you for allowing me to participate in this patient's care. ?? Kevin Scherer DO [facility] [address] [place] [address], [address] [place] [address] * Siva REN, Laine Ring: PERFORM Event Display: Consultation Note Authored Date: [id number] Patient: ??LIZ, CORRINE ? Age:??28 Years?Sex:??Female?:??1995?? Chief Complaint Consulting Provider: PRISCILLA Jimenez Reason for Consult: Hematemesis Vascular??Surgeon: Doug Reddy MD History of Present Illness Ms. Aguilar is a 28yo female with hx of chronic alcohol use (quit drinking Sep, 2023), chronic tobaccouse (4.5yrs of 1ppd tobacco use), x1, left breast lumpectomy, splenic/ portal vein thrombosis (initially on Eliquis, but has not taken since December,), necrotizing pancreatitis requiring IR percutaneous drainage (2023, with removal of drain in 2023), disconnected pancreatic ductsyndrome s/p biliary sphincterotomy with placement of CBD stent due to stricture??(2023). Pt has multiple admissions to the??hospital??due to abdominal pain. She follows with GI closely as an outp atient, who are concerned for pancreatic ductal HTN due to persistent abdominal pain??despite pain regimen. She is recently s/p lap tracy on 05/13, without any immediate complications. She is now returning to the hospital due to abdominal pain and hematemesis, for which general surgery was consulted. Labs notable for K 3.5, alk phos 162, ALT 45. CT with pseudocyst.? Upon my evaluation, she is resting comfortably in bed and in no acute distress. She tells me that she experienced abdominal pain, with associated 20cc of hematemesis last night, after she had a burrito. She denies any fevers/ chills. She tells me that her abdominal pain continues to bother, and s he??remains on??60mg daily of morphine??for pain control. She is ambulating well, and denies any chest pain, shortness of breath, or lightheadedness. Remained hemodynamically stable throughout my evaluation. ? Review of Systems A comprehensive review of system was completed, and is either negative or as indicated above.?? Physical Exam Vitals & Measurements T:??97.9?F?? HR:??72??(Peripheral)?? RR:??14?? BP:??105/69?? SpO2:??99%?? Constitutional: Alert, in no distress. Mental Status: Oriented to person, place and time. Head: Normocephalic. Eyes: Extraocular muscles intact. Ear, Nose and Throat: Oropharynx clear, mucous membranes moist. Trachea midline. Neck: Supple, Full range of motion. Respiratory: Clear to auscultation. No wheezing, rales or rhonchi. Cardiovascular: RRR Gastrointestinal: soft/ compressible, generalized mild tenderness, with moderate tenderness in the epigastric region. No rebound or guarding. Genitourinary: No costovertebral angle tenderness. Neurologic: Moves all extremities spontaneously. Sensation intact bilaterally. Skin: No rashes or lesions. No petechiae or purpura.?? Musculoskeletal: No cyanosis or clubbing. No gross deformities. Normal range of motion. Assessment/Plan Ms. Aguilar is a 28yo female with hx of pancreatitis, who is presenting with abdominal pain and hematemesis,??for which general surgery was consulted. I have??carefully reviewed the CT A/P.??It is mostly notable for pseudocyst. No acute surgical??intervention at this time. Recommend GI c/s for hematemesis. Rest of care per ED. ? Case discussed with Dr. Barry MCCRARY [id number] ?? Problem List/Past Medical History Ongoing Hypokalemia Procedure/Surgical History No qualifying data available. Home Medications Docusate-Senna: TAKE 2 TABLETS BY MOUTH ONCE DAILY HydrOXYzine: TAKE 1 CAPSULE BY MOUTH EVERY 6 HOURS NEEDED FOR ANXIETY Mirtazapine: TAKE ONE TABLET AT BEDTIME Morphine: 30 mg = 2 tablet, By Mouth, Every 12 hours nalOXONE: ADMINISTER 1 SPRAY INTO AFFECTED NOSTRILS IF NEEDED FOR OPIOID REVERSAL. MAY REPEAT EVERY2-3 MINUTES IF NEEDED. Olanzapine: DISSOLVE 1 TABLET ON THE TONGUE AT BEDTIME Pancrelipase: TAKE 1 CAPSULE BY MOUTH THREE TIMES DAILY TAKE WITH MEAL AND SNACK Pantoprazole: 40 mg = 1 tablet, By Mouth, Daily Polyethylene Glycol 3350: MIX AND TAKE 17GM BY MOUTH ONCE DAILY Pregabalin: 100 mg = 1 capsule, By Mouth, 2 times a day Tramadol: 50 mg = 1 tablet, By Mouth, Every 6 hours, PRN (for pain) Allergies NKA Social History Alcohol Use: Past. Substance Abuse Use: Never. Tobacco Use: Never (less than 100 in lifetime). Family History Mat. Grandmother: Diabetes mellitus Lab Results Labs Last 24 Hours BLOOD COUNT & DIFF ? Event Name?? Event Result?? Date/Time?? WBC 8.8 k/mm3 05/21/24 21:58:00 RBC 4.34 m/mm3 05/21/24 21:58:00 Hgb 11.1 Gm/dL??Low 05/21/24 21:58:00 Hct 34.9 %??Low 05/21/24 21:58:00 MCV 80.4 femtoliters 05/21/24 21:58:00 MCH 25.6 pg??Low 05/21/24 21:58:00 MCHC 31.8 Gm/dL??Low 05/21/24 21:58:00 Platelet Count 294 k/mm3 05/21/24 21:58:00 MPV 11 femtoliters 05/21/24 21:58:00 Nucleated RBC (Automated) 0 #/100 WBC'S 05/21/24 21:58:00 ? CHEM GENERAL ? Event Name?? Event Result?? Date/Time?? Sodium 136 mmol/L 05/21/24 21:58:00 Chloride 100 mmol/L 05/21/24 21:58:00 Bicarbonate Level 25 mmol/L 05/21/24 21:58:00 Anion Gap 11 05/21/24 21:58:00 Glucose Level 100 mg/dL??High 05/21/24 21:58:00 BUN 7 mg/dL 05/21/24 21:58:00 Creatinine-Blood 0.59 mg/dL 05/21/24 21:58:00 Alkaline Phosphatase 162 units/L??High 05/21/24 21:58:00 Lipase 8 units/L??Low 05/21/24 21:58:00 AST (SGOT) 29 units/L 05/21/24 21:58:00 ALT (SGPT) 45 units/L??High 05/21/24 21:58:00 Bilirubin, Total 0.3 mg/dL 05/21/24 21:58:00 ? Note * Trinh Hoover RN: PERFORM Event Display: Discharge/Transfer Note Hospital Authored Date: [id number] Nursing Discharge Note Entered On: 05/25/2024 17:43 EST Performed On: 05/25/2024 17:43 EST by Trinh Hoover RN Nursing Discharge Note 2 Discharge Time : 05/25/2024 17:40 EST Discharge Level of Care at Discharge : Home/Long Term/Foster Care Patient Left Unit Via : Wheelchair Patient Accompanied Off Unit with : Responsible adult DC Instructions Provided & Signed by Pt : Yes Patient Understands D/C Instructions : Yes Patient Instructions Discharge Signed : Yes Did Pt have Specialty Bed or Wound Vac : No Kiko GALLEGOS, Trinh - 05/25/2024 17:43 EST * Bhargavi REN, Gustavo D: PERFORM Event Display: Discharge/Transfer Note Hospital Authored Date: [id number] Patient: ??AGUILAR, CORRINE ? Age:??28 Years?Sex:??Female?:??1995?? Patient Information Discharge Location: S1 Primary Care Physician:?? Admit Date/Time: 05/22/2024 04:00 Discharge Disposition Discharge Disposition: ?? Discharge Diagnosis Hematemesis (K92.0) Hematemesis (K92.0) Hematemesis (K92.0) Chronic alcoholic pancreatitis (K86.0) Anxiety (F41.9) Splenic vein thrombosis (I82.890) History of constipation (Z87.19) Erosive gastritis with hemorrhage (K29.61) Erosive gastritis (K29.60) _ Discharge Medications HydrOXYzine (hydrOXYzine pamoate 50 mg oral capsule)?TAKE 1 CAPSULE BY MOUTH EVERY 6 HOURS NEEDED FOR ANXIETY?1?capsule?50?Milligram?By Mouth?Every 6 hours?as needed?as needed for anxiety Morphine (morphine 15 mg oral tablet, immediate release)?TAKE 1&1/2 TABLETS EVERY 12 HOURS?1.5?tab(s)?22.5?Milligram?By Mouth?Every 12 hours Olanzapine (olanzapine 20 mg oral tablet, disintegrating)?DISSOLVE 1 TABLET ON THE TONGUE AT BEDT MAGAN?1?tab(s)?20?Milligram?Sublingual?Daily at bedtime?allow tablet to dissolveon tongue Pancrelipase (Creon 36,000 units oral delayed release capsule)?1?capsule?By Mouth?3 times a day?swallow whole or sprinkle contents over a teaspoonful of applesauce Pantoprazole (pantoprazole 40 mg oral delayed release tablet)?1?tab(s)?40?Milligram?By Mouth?2 times a day?as needed?as needed?for 8?week(s) Polyethylene Glycol 3350 (MiraLax oral powder for reconstitution)?17?gram?By Mouth?Daily?as needed?Constipation?for 30?Days Pregabalin (pregabalin 100 mg oral capsule)?1?capsule?100?Milligram?By Mouth?2 times a day Tramadol (traMADol 50 mg oral tablet)?1?tab(s)?50?Milligram?By Mouth?Every 6 hours?as needed?for pain ? Allergies Allergies ?(Active and Proposed Allergies Only) NKA? (Severity: Unknown severity, Onset: Unknown) ? Future Appointments Sunday 7:30 AM EST ?? Where: [facility] Status: Pending Sunday 6:00 AM EST ?? Where: [facility] [address] [place] [address]- Status: Pending Sunday 10:45 AM EST ?? With: Kevin Scherer DO Where: [facility] [address] [place] [address]- Status: Pending Hospital Course ??28-year-old female with a past medical history of EtOH abuse, has not used alcohol since September, EtOH associated pancreatitis, splenic/portal venous thrombosis, history of necrotizing pancreatitis requiring IR percutaneous drainage,??disconnected pancreatic duct syndrome, post ERCP pancreatitis and chronic pancreatitis, recent acute cholecystitis, s/p robotic-assisted laparoscopic cholecystectomy done on 05/13 comes to the emergency room for 1 episode of hematemesis yesterday around 7 PM, 05/21/2024. Admitted for hematemesis, acute on chronic epigastric pain, chronic pancreatitis ?? Hematemesis (K92.0):?? Erosive gastritis 1 episode of??hematemesis prior to presentation No episodes since then No history of??esophageal varices, denies active alcohol use.?? Status post EGD finding of erosive gastritis, GI recommended 40 mg twice daily of??Protonix for 8 weeks Patient will follow-up outpatient Follow up with Dr. Scherer in early Jun for ERCP and??stent removal.? Abdominal pain Chronic alcoholic pancreatitis (K86.0):?? Recent acute cholecystitis, s/p robotic-assisted laparoscopic cholecystectomy 05/13 ?? Patient has chronic alcoholic pancreatitis, history of necrotizing pancreatitis requiring IR percutaneous drainage,??disconnected pancreatic duct syndrome post ERCP pancreatitis and chronic pancreatitis, recent acute cholecystitis, s/p robotic-assisted laparoscopic cholecystectomy done on 05/13 currently lipase is not elevated?? Abnormal CT findings?? CT abdomen/pelvis was done that showed status postcholecystectomy and a 2.4 cm complex density in the gallbladder fossa in the setting of recent cholecystectomy likely represents residual blood products. Differential diagnosis would also include phlegmonous changes.?? 9 mm likely pseudocyst in the anterior pancreatic body new since 05/11/2024. No peripancreatic inflammatory changes or edema.?? Hepatic steatosis and mild to moderate stool retention throughout the colon.?? Today 05/24 : Reported some chills after advancing diet to monitor if any fever??low threshold to ??start antibiotics ?? Continue Creon.to advance diet as tolerated Patient is on morphine IR at home??oral morphine ordered at home dose along with as needed IV Dilaudid for??pain. along with as needed IV Zofran for nausea/vomiting. Continue pregabalin. Given this abnormal findings on CT----surgical consultation was requested who suggested that there was no acute surgical intervention needed and recommended GI consult for hematemesis.,? Monitor for any sings of infection with low threshold starting antibiotics Follow up with Dr. Scherer in early Jun for ERCP and??stent removal ? Gall bladder fossa collection ?: ??Reviewed by surgery nurse hospitalization, likely postprocedure collection??currently patient without any symptoms, no white count, no right upper quadrant tenderness on my exam today??.Patient has been advised to monitor her symptoms at home if there is worsening abdominal pain or fever or chills to present to the ER immediately ?? 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 ?? Patient seen at bedside. ??Appears comfortable is able to tolerate diet??well. ??Denies any nausea vomiting chest pain or shortness of breath.?? He is agreeable for discharge,??called patient's life partner and updated about postdischarge plan of care. Objective Assessment and Plan Discharge Planning:? Vital Signs?? Temperature: 97.9 DegF (05/25/24 12:00:00) Temperature Route: Oral (05/25/24 12:00:00) Pulse Rate: 72 bpm (05/25/24 12:00:00) Respiratory Rate: 17 br/min (05/25/24 12:09:00) Systolic Blood Pressure: 105 mm Hg (05/25/24 12:00:00) Diastolic Blood Pressure:??48 mm Hg??Low (05/25/24 12:00:00) Blood pressure sites: Arm, left (05/25/24 12:00:00) Mean Arterial Pressure: 71 mm Hg (05/25/24 00:23:00) Pulse Pressure: 57 mm Hg (05/25/24 12:00:00) Oxygen Saturation: 100 % (05/25/24 12:00:00) Mode of Delivery (Oxygen): Room air (05/25/24 12:00:00) Early Warning Score: 2 (05/25/24 13:12:47) ? . Physical Exam General: Is appears comfortable in no distress HEENT: ??mucous mucous membranes appear wet, PERRLA Cardiovascular: S1-S2 heard no murmurs appreciated Respiratory: CTA without any wheezing or crackles anteriorly GI:??Mild epigastric tenderness, no right upper quadrant tenderness,??no distention, no obvious hepatosplenomegaly Neuro: AOx3 plus date of , able to raise all extremities on commands Psych: Appears calm without any agitation Surgical Procedures Gastroscopy (EGD) Diagnostic 05/23/2024 15:03 Pending Results Lactic Acid Level ordered on 05/21/2024 Pathology Tissue Request ordered on 05/23/2024 Follow-Up Appointments Added Follow Up ?Time Frame ?Comments [facility] [phone]?1 week?If you do not have primary care physician please call at the number provided??if you wish to establish care??with [facility] PCP. Patient Instructions 1.?? 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 #2. ??If you develop fever chills or worsening abdominal pain. ??Please come back to the ER Post Discharge Care Diet: ??Regular Diet ?? Activity: ??Ambulate with assistance 3 times a day unless otherwise specified ?? Discharge ?05/25/24 14:02:00 EST ?Order Comment:?? Home Health Face to Face ^HomeHealthFTF Results Discharge Labs BLOOD COUNT & DIFF WBC 6.5 k/mm3 ()?? 05/25/2024 07:56 RBC 4.12 m/mm3 (Low)?? 05/25/2024 07:56 Hgb 10.7 Gm/dL (Low)?? 05/25/2024 07:56 Hct 33.7 % (Low)?? 05/25/2024 07:56 MCV 81.8 femtoliters ()?? 05/25/2024 07:56 MCH 26.0 pg (Low)?? 05/25/2024 07:56 MCHC 31.8 Gm/dL (Low)?? 05/25/2024 07:56 Platelet Count 296 k/mm3 ()?? 05/25/2024 07:56 RDW-SD 44.1 femtoliters ()?? 05/25/2024 07:56 MPV 10.6 femtoliters ()?? 05/25/2024 07:56 Nucleated RBC (Automated) 0.0 #/100 WBC'S ()?? 05/25/2024 07:56 Abs. NRBC 0.0 k/mm3 ()?? 05/25/2024 07:56 Abs. Neut 5.5 k/mm3 ()?? 05/21/2024 21:58 Abs. Lymph 2.6 k/mm3 ()?? 05/21/2024 21:58 Abs. Vigo 0.5 k/mm3 ()?? 05/21/2024 21:58 Abs. Eo 0.1 k/mm3 ()?? 05/21/2024 21:58 Abs. Baso 0.0 k/mm3 ()?? 05/21/2024 21:58 Neut % 62.4 % ()?? 05/21/2024 21:58 Lymph % 29.7 % ()?? 05/21/2024 21:58 Vigo % 6.2 % ()?? 05/21/2024 21:58 Eos % 1.1 % ()?? 05/21/2024 21:58 Baso % 0.3 % ()?? 05/21/2024 21:58 Imm Gran 0.3 % ()?? 05/21/2024 21:58 Abs. Imm Gran 0.0 k/mm3 ()?? 05/21/2024 21:58 ?? CHEM GENERAL Sodium 138 mmol/L ()?? 05/25/2024 07:56 Potassium 3.7 mmol/L ()?? 05/25/2024 07:56 Chloride 104 mmol/L ()?? 05/25/2024 07:56 Bicarbonate Level 25 mmol/L ()?? 05/25/2024 07:56 Anion Gap 9 ()?? 05/25/2024 07:56 Glucose Level 139 mg/dL (High)?? 05/25/2024 07:56 Glucose, POC 199 mg/dL (High)?? 05/25/2024 09:20 BUN 4 mg/dL (Low)?? 05/25/2024 07:56 Creatinine-Blood 0.54 mg/dL ()?? 05/25/2024 07:56 Estimated GFR Creatinine 129 ML/MIN/1.73 M2 ()?? 05/25/2024 07:56 Calcium 9.0 mg/dL ()?? 05/25/2024 07:56 Phosphorus 3.8 mg/dL ()?? 05/25/2024 07:56 Magnesium 1.8 mg/dL ()?? 05/25/2024 07:56 Protein, Total 6.4 Gm/dL ()?? 05/25/2024 07:56 Albumin 3.8 Gm/dL ()?? 05/25/2024 07:56 AG Ratio 1.5 ()?? 05/21/2024 21:58 Alkaline Phosphatase 144 units/L (High)?? 05/25/2024 07:56 Lipase 8 units/L (Low)?? 05/21/2024 21:58 AST (SGOT) 25 units/L ()?? 05/25/2024 07:56 ALT (SGPT) 27 units/L ()?? 05/25/2024 07:56 Bilirubin, Total 0.2 mg/dL ()?? 05/25/2024 07:56 Bilirubin, Direct 0.1 mg/dL ()?? 05/25/2024 07:56 Bilirubin, Indirect 0.1 mg/dL ()?? 05/25/2024 07:56 Lactate 1.8 mmol/L ()?? 05/25/2024 07:56 ?? ENDOCRINE/TUMOR MARKER Blood <1 mIU/mL ()?? 05/21/2024 21:58 ? URINE OTHER Est Creatinine Clearance 128.26 mL/min ()?? 05/25/2024 08:42 ? VIROLOGY COVID-19 by RT-PCR NEGATIVE ()?? 05/22/2024 04:15 ? Procedure ?Procedure Note??05/23/2024 15:31 by Moiz Garcia MD ?Impression: 1.??Erosive gastritis??- s/p biopsy. Likely the source of bleeding in the setting of anticoagulation. 2.??Mild??Portal hypertensive gastrophathy.?? 3. Biliary stent??- not removed. ?? Plan: 1.?Await path results. 2.?Stop Etoh use. 3.?Follow up with Dr. Scherer in early Jun for ERCP and??stent removal.?? 4.??Monitor H&H, transfuse as needed. PPI BID for??8 weeks. 5.??GI will sign off. ?? Image ?CT Abd/Pelvis W/ IV Contrast Only??05/21/2024 23:44 by Lin Ayers ?IMPRESSION: 1. Status post cholecystectomy. 2.4 cm complex density in the gallbladderfossa in the setting of recent cholecystectomy likely represents residual blood products. Differential diagnosis would also include phlegmonous changes. Recommend correlating with patient's lab values to exclude infection. 2. 9 mm likely pseudocyst in the anterior pancreatic body new since 05/11/2024. No peripancreatic inflammatory changes or edema. 3. Hepatic steatosis. 4. Bmse-wi-uxmgsyze stool retention throughout the colon. ?XR Chest Portable??05/21/2024 23:06 by Marvin Aguilar ?IMPRESSION: Normal. ?? Consult ?General Surgery Consult H & P??05/22/2024 03:38 by Siva REN, Laine Ring ?Gastroenterology Consult Note??05/22/2024 13:37 by Raphael Nolasco MD ? 40 minutes spent on discharge * Trinh Hoover RN: PERFORM Event Display: Patient Education/Instruction Authored Date: [id number] Inpatient Adult Discharge Instructions. [place] [id number] Name: CORRINE AGUILAR : 1995?? Visit: 05/22/2024 04:00?? Current Date: 05/25/2024 15:33 ?? Account: [id number]?? Inpatient Adult Discharge Instructions We would like to thank you for allowing us to assist you with your healthcare needs. The following includes patient education materials and information regarding your injury/illness. Our entire staffstrives to provide an excellent experience for our patients and their families. PLEASE ENSURE YOU FOLLOW-UP PER THE INSTRUCTIONS BELOW! ?? YOUR OPINION IS IMPORTANT TO US! Please complete the survey you may receive by mail or email. Your feedback will be used to make improvements to the healthcare experiences of our patients and their families. Surveys are administered by Natanael U[employer], [employer]. ?? If further treatment with your primary care physician or another doctor is recommended, it is important for you to keep the appointment. Call your primary care physician or return to the Emergency Department immediately if your condition worsens, fails to improve, or new symptoms develop. If you need to find a doctor, you can call [facility] for a referral at [phone] or toll free at [phone]) or log in to [email or web address].. ?? [facility], in keeping with [facility] guidance, no longer requires face masks for staff, patientsor visitors in most situations. Similiar to time spent indoors at other locations, there is the chance that you were exposed to repiratory viruses during your time with us (such as flu or COVID-19). If you develop symptoms concerning for a viral respiratory infection, please seek testing (and treatment if indicated) from your medical provider or home test kit. ?? You can view and manage your care through the patient portal or by using a health care rafa of your choosing. [employer] is a website that allows you to securely view your medical information including your hospital discharge summary, office visit summaries, medications and follow-up visits. You can also request appointments, renew medications, and request access to your medical information using a health care rafa of your choosing, or just ask a question. You can enroll at [email or web address] or register during your next office visit. You have been discharged from [facility], Patient Care Unit: S1??. If you have any questions regarding these instructions, including results of studies pending, afteryou leave, please call us and we will be happy to assist you 25/12. [facility] Your Care Team Attending Physician Gustavo Burk MD?? Consulting Providers Gustavo Burk MD?? Discharging Providers Gustavo Burk MD Reason for Your Visit pancreatitis, ?UGIB?? Your Diagnosis Anxiety Chronic alcoholic pancreatitis Erosive gastritis Erosive gastritis with hemorrhage Hematemesis History of constipation Splenic vein thrombosis Tests Performed Below is a partial list of the tests performed during your hospitalization. You may have had other tests and procedures not included in this list. Please discuss all test results with your provider. Basic Metabolic Panel BUN Calcium Level CBC CBC w/ Differential Comprehensive Metabolic Panel COVID-19 (Novel Coronavirus), Rapid PCR Creatinine Electrolytes Glucose Level GLUCOSE POC Lactate Level Lipase Liver Function Panel Mg Level Phosphorus Level Serum Quantitative CT Abd/Pelvis W/ IV Contrast Only XR Chest Portable BUN?? Basic Metabolic Panel?? Beta HCG Serum (Females Only) ( Serum Quantitative)?? CBC?? CBC w/ Differential?? COVID-19 (Novel Coronavirus), Rapid PCR?? CT Abd/Pelvis W/ IV Contrast Only?? Calcium Level?? Comprehensive Metabolic Panel?? Creatinine?? Electrolytes?? Glucose Level?? Glucose POC?? Hepatic Function Panel (Liver Function Panel)?? Lactic Acid Level (Lactate Level)?? Lipase?? Magnesium Level (Mg Level)?? Pathology Tissue Request ()?? Phosphorus Level?? Chest Portable (XR Chest Portable)?? Primary Care Provider [phone]?? Advance Directive Health Care Proxy on File Yes - Health Care Proxy Discharge Vitals Temperature: 97.9 DegF Height: 160 cm Pulse Rate: 72 bpm Weight: 58 kg Respiratory Rate: 17 br/min Body Mass Index: 22.66 kg/m2 Systolic Blood Pressure: 105 mm Hg Body surface area: 1.61 Diastolic Blood Pressure:??48 mm Hg??Low ?? Oxygen Saturation: 100 % ?? Studies Pending All studies ordered during this hospital stay have been completed unless listed below. Please discuss all pending results with your provider listed above in these instructions. ?? Lactic Acid Level (Lactate Level)?? Pathology Tissue Request ()?? What to do next Instructions From Your Doctor 1.?? 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 #2. ??If you develop fever chills or worsening abdominal pain. ??Please come back to the ER ?? Orders??:Regular Diet :Ambulate with assistance ??3 times a day ??unless otherwise specified? 05/25/24 14:02:00 EST?? Scheduled Follow-Up Appointments Sunday 7:30 AM EST ?? Where: [facility] Status: Pending Sunday 6:00 AM EST ?? Where: [facility] [address] [place] [address]- Status: Pending Sunday 10:45 AM EST ?? With: Kevin Scherer DO Where: [facility] [address] [place] [id number]- Status: Pending You Need to Schedule the Following Appointments Follow [facility] with[facility] [phone] When:??Within 1 week Why: If you do not have primary care physician please call at the number provided??if you wish to establish care??with [facility] PCP. Discharge Medications CORRINE AGUILAR :1995 Visit Date:05/22/2024 Medications: Please continue your medications until treatment is completed or stopped by your provider. Medications not listed below should be discontinued. Discuss any questions related to medications with your provider. What How Much When Why Instructions Next Dose Changed HydrOXYzine (hydrOXYzine pamoate 50 mg oral capsule) 1 capsule Oral Every 6 hours as needed for as needed for anxiety As instructed, last given 10am Changed Morphine (morphine 15 mg oral tablet, immediate release) 1.5 tab(s) Oral Every 12 hours As instructed, last given 09:50am Changed Olanzapine (olanzapine 20 mg oral tablet, disintegrating) 1 tab(s) Sublingual Daily at Bedtime allow tablet to dissolve on tongue ?? 05/25 8pm Changed Pancrelipase (Creon 36,000 units oral delayed release capsule) 1 capsule Oral 3 times a day swallow whole or sprinkle contents over a teaspoonful of applesauce ?? As instructed Changed Pantoprazole (pantoprazole 40 mg oral delayed release tablet) 1 tab(s) Oral Twice a day as needed for as needed Erosive gastritis with hemorrhage Duration: 8 week(s) Pickup at [id number] As instructed Changed Polyethylene Glycol 3350 (MiraLax oral powder for reconstitution) 17 gram Oral Daily as needed for Constipation History of constipation Duration: 30 Days Pickup at [id number] As instructed, not given today per request Changed Pregabalin (pregabalin 100 mg oral capsule) 1 capsule Oral Twice a day 05/25 9pm Changed Tramadol (traMADol 50 mg oral tablet) 1 tab(s) Oral Every 6 hours as needed for for pain As instructed, not given today ?? Pharmacy Information [id number]: [address] [place] [address] [phone] ?? What When Comments Stop Taking Docusate-Senna (docusate-senna 50 mg-187 mg oral tablet) TAKE 2 TABLETS BY MOUTH ONCE DAILY ?? Stop Taking nalOXONE (naloxone 4 mg/ 0.1 mL nasal spray) ADMINISTER 1 SPRAY INTO AFFECTED NOSTRILS IF NEEDED FOR OPIOID REVERSAL. MAY REPEAT EVERY 2-3 MINUTES IF NEEDED. ?? Prescription Given During Visit Pantoprazole (pantoprazole 40 mg oral delayed release tablet) - 1 tablet = 40 mg, By Mouth, 2 timesa day, # 112 tablet, 0 Refills, [facility][id number], [address] [place] [phone]?? Polyethylene Glycol 3350 (MiraLax oral powder for reconstitution) - 17 Gm, By Mouth, Daily, # 238 Gm, 0 Refills, [facility] #[id number], [address] [place] [phone]?? Laboratory Results Below is a partial list of the most recent Laboratory test results done prior to this discharge. You may have had other tests and procedures not included in this list. Please discuss all test resultswith your provider. Est Creatinine Clearance - 128.26 mL/min (05/25/2024) Basic Metabolic Panel (05/25/2024) ???Sodium - 138 mmol/L???Potassium - 3.7 mmol/L???Chloride - 104 mmol/L???Bicarbonate Level - 25 mmol/L???Anion Gap - 9???Glucose Level - 139 mg/dL???BUN - 4 mg/dL???Creatinine-Blood - 0.54 mg/dL???Estimated GFR Creatinine - 129 ML/MIN/1.73 M2???Calcium - 9.0 mg/dL BUN (05/23/2024) ???BUN - 3 mg/dL Calcium Level (05/23/2024) ???Calcium - 8.9 mg/dL CBC (05/25/2024) ???WBC - 6.5 k/mm3???RBC - 4.12 m/mm3???Hgb - 10.7 Gm/dL???Hct - 33.7 %???MCV - 81.8 femtoliters???MCH - 26.0 pg???MCHC - 31.8 Gm/dL???Platelet Count - 296 k/mm3???RDW-SD - 44.1 femtoliters???MPV - 10.6 femtoliters???Nucleated RBC (Automated) - 0.0 #/100 WBC'S???Abs. NRBC - 0.0 k/mm3 CBC w/ Differential (05/21/2024) ???WBC - 8.8 k/mm3???RBC - 4.34 m/mm3???Hgb - 11.1 Gm/dL???Hct - 34.9 %???MCV - 80.4 femtoliters???MCH - 25.6 pg???MCHC - 31.8 Gm/dL???Platelet Count - 294 k/mm3???RDW-SD - 42.8 femtoliters???MPV - 11.0 femtoliters???Nucleated RBC (Automated) - 0.0 #/100 WBC'S???Abs. NRBC - 0.0 k/mm3???Abs. Neut - 5.5 k/mm3???Abs. Lymph - 2.6 k/mm3???Abs. Vigo - 0.5 k/mm3???Abs. Eo - 0.1 k/mm3???Abs. Baso - 0.0 k/mm3???Neut % - 62.4 %???Lymph % - 29.7 %???Vigo % - 6.2 %???Eos % - 1.1 %???Baso % - 0.3 %???Imm Gran - 0.3 %???Abs. Imm Gran - 0.0 k/mm3 Comprehensive Metabolic Panel (05/21/2024) ???Sodium - 136 mmol/L???Potassium - 3.5 mmol/L???Chloride - 100 mmol/L???Bicarbonate Level - 25 mmol/L???Anion Gap - 11???Glucose Level - 100 mg/dL???BUN - 7 mg/dL???Creatinine-Blood - 0.59 mg/dL???Estimated GFR Creatinine - 126 ML/MIN/1.73 M2???Calcium - 9.2 mg/dL???Protein, Total - 7.3 Gm/dL???Al bumin - 4.4 Gm/dL???AG Ratio - 1.5???Alkaline Phosphatase - 162 units/L???AST (SGOT) - 29 units/L???ALT (SGPT) - 45 units/L???Bilirubin, Total - 0.3 mg/dL COVID-19 (Novel Coronavirus), Rapid PCR (05/22/2024) ???COVID-19 by RT-PCR - NEGATIVE Creatinine (05/23/2024) ???Creatinine-Blood - 0.50 mg/dL???Estimated GFR Creatinine - 131 ML/MIN/1.73 M2 Electrolytes (05/23/2024) ???Sodium - 140 mmol/L???Potassium - 4.2 mmol/L???Chloride - 107 mmol/L???Bicarbonate Level - 19 mmol/L???Anion Gap - 14 Glucose Level (05/23/2024) ???Glucose Level - 120 mg/dL GLUCOSE POC (05/25/2024) ???Glucose, POC - 199 mg/dL Lactate Level (05/25/2024) ???Lactate - 1.8 mmol/L Lipase (05/21/2024) ???Lipase - 8 units/L Liver Function Panel (05/25/2024) ???Protein, Total - 6.4 Gm/dL???Albumin - 3.8 Gm/dL???Alkaline Phosphatase - 144 units/L???AST (SGOT) - 25 units/L???ALT (SGPT) - 27 units/L???Bilirubin, Total - 0.2 mg/dL???Bilirubin, Direct - 0.1 mg/dL???Bilirubin, Indirect - 0.1 mg/dL Mg Level (05/25/2024) ???Magnesium - 1.8 mg/dL Phosphorus Level (05/25/2024) ???Phosphorus - 3.8 mg/dL Serum Quantitative (05/21/2024) ? ?Blood - <1 mIU/mL You will be contacted within 72 hours with your results. Immunizations This Visit Not Given Vaccine Commentsinfluenza virus vaccine, inactivated Patient Refuses Allergies (NKA means No Known Allergies) NKA Problems Active Problems??(2) Hematemesis?? Hypokalemia?? Education Materials Below is the list of Educational Leaflet Providered with your Discharge Instructions. Valuables and Belongings I fully understand and agree that [facility] accepts no responsibility for all my personal property including clothing, toilet articles, radios, jewelry, dentures, hearing aids, rings, money, or any other property that is in my possession or is brought to me after admission. I understand certain valuables may be placed in a hospital safe for a short period of time. I understand that the hospital is not liable for loss or damage due to accident, fire, or other natural occurrence while said property is in the safe. I accept full responsibility for any personal property that I keep with me, and will not hold the hospital responsible in case of loss or disappearance. I acknowledge that i have been encouraged to send valuables and belongings home. ?? Date for Pt to Sign Valuables/Belongings: 05/22/24 02:44:00 ?? Other Discharge Information ? Pulmonary Rehab Status?? Pulmonary Rehab Discharge Status?? Respiratory Rate: 17 br/min ? Common Emergency Awareness Tips IS IT A STROKE? Act FAST and Check for these signs: FACE Does the face look uneven? ARM Does one arm drift down? SPEECH Does their speech sound strange? TIME Call at any sign of stroke ?? Heart Attack Signs Chest discomfort: Most heart attacks involve discomfort in the center of the chest and lasts more than a few minutes, or goes away and comes back. It can feel like uncomfortable pressure, squeezing, fullness or pain. Discomfort in upper body: Symptoms can include pain or discomfort in one or both arms, back, neck, jaw or stomach. Shortness of breath: With or without discomfort. Other signs: Breaking out in a cold sweat, nausea, or lightheaded. Remember, MINUTES DO MATTER. If you experience any of these heart attack warning signs, call to get immediate medical attention! ?? Smoking can increase your chances of developing chronic health problems and can cause harmful effects to other family members in your house. If you smoke, you are strongly encouraged to quit. Please call [facility] Link at [phone] or [phone] or log in to [email or web address] for referrals to smoking cessation programs. ?? 464 Suicide & Crisis Lifeline is available 25/12 if you or someone you know needs to find a reason to keep living. By calling 574 you'll be connected to a skilled, trained counselor at a crisis center in your area. INPATIENT DISCHARGE INSTRUCTIONS SIGNATURE PAGE CORRINE AGUILAR Location:[facility] Registration Date and Time:05/22/2024 04:00 EST Attending Physician: Bhargavi REN, Gustavo Posadas, I CORRINE AGUILAR, have received the above patient education materials/instructions and have verbalized understanding. If ambulance or transport services are being used I further acknowledge being given a choice of service. ?? If you need to contact me, please call me at this number: . Patient/Digital Analytics Manager Name: Patient/Digital Analytics Manager Signature: Relationship to Patient: Witness Name/Signature: Date: Patient Care team information Care Team Personnel Name: Charmaine Miguel RN Position: S RN Member Role: Primary Care Nurse Name: Briseyda Ramsey RN Position: S RN Member Role: Primary Care Nurse Name: Fifi Dickson Position: S RN Member Role: Primary Care Nurse Name: Briseyda Melton RN Position: S RN Member Role: Primary Care Nurse Name: Iam Nolbe RN Position: S RN Member Role: Primary Care Nurse Name: Ena Obrien RN Position: [facility] RN W/OE and Tasks Member Role: Primary Care Nurse Name: Tammie Zamudio RN Position: [facility] RN Member Role: Primary Care Nurse Name: Dai Pham RN Position: S RN Member Role: Primary Care Nurse Name: Yumiko Ontiveros RN Position: S RN Member Role: Primary Care Nurse Name: Alyssa Abdi RN Position: S RN Member Role: Primary [...] RN Member Role: Primary Care Nurse Name: Mary Feranndes RN Position: [facility] RN Member Role: Primary Care Nurse Name: Marlon Michelle RN Position: [facility] RN Member Role: Primary Care Nurse Name: Noelle Gill RN Position: [facility] RN Member Role: Primary Care Nurse Name: Tiana Galicia RN Position: [facility] RN Member Role: Primary Care Nurse Name: Divya Aguilar RN Position: [facility] RN Member Role: Primary Care Nurse Name: Doreen Doe LPN Position: [facility] RN Member Role: Primary Care Nurse Name: Rosa Rahman RN Position: [facility] RN Member Role: Primary Care Nurse Name: Nelda Martin LPN Position: [facility] RN Member Role: Primary Care Nurse Name: Cory Parker RN Position: [facility] RN Member Role: Primary Care Nurse Care Team Related Persons Name: OC SANCHEZ Name: PETE ACOSTA Insurance Providers Guarantor name: [facility] [place] Plan Information #: 1 Payer: [employer] Member Number: [id number] Policy Number: NA Group Number: NA Health Plan Information #: 2 Payer: [facility] Member Number: [id number] Policy Number: NA Group Number: NA
--- OUTSIDE RECORDS SUMMARY | 2024-06-06 16:36 | XMS_ITS | Continuity of Care Document ---
Author Organization [facility] Address [address] [place] [id number]- Support Name Relationship Address Phone PETE ACOSTA domestic partner Unknown Unavaila ble En[place] [facility] [place]): 04/16/24 - 05/16/24 [facility] [address] [place] [id number]- Encounter Type: Triage Allergies, Adverse Reactions, Alerts [...] 2 Refills, Maintenance, 03/03/24 10:12:00PM EDT, Capsule, [id number], Partial fill upon patient request if the [...] morphine 15 mg oral tablet, immediate release 2 tablet = 30 mg, By Mouth, Every 12 hours, 0 Refills Start Date: 04/02/24 Status: Ordered Repeat number: 1 naloxone 4 mg/0.1 mL nasal spray ADMINISTER 1 SPRAY INTO AFFECTED NOSTRILS IF NEEDED FOR OPIOID REVERSAL. MAY REPEAT EVERY 2-3 MINUTES IF NEEDED. Start Date: 04/08/24 Status: Ordered Repeat number: 1 olanzapine 20 mg oral tablet, disintegrating DISSOLVE 1 TABLET ON THE TONGUE AT BEDTIME Start Date: 05/12/24 Status: Ordered Repeat number: [...] Refills, Maintenance, 04/17/24 7:45:00 AM EST, Tablet, [facility] #[id number], Partial fill upon patient request if the [...] Team Personnel Name: Charmaine Miguel RN Position: [facility] RN Member Role: Primary Care Nurse Name: Briseyda Melton RN Position: [facility] RN Member Role: Primary Care Nurse Name: Iam Noble RN Position: [facility] RN Member Role: Primary Care Nurse Name: Ena Obrien RN Position: [facility] ED RN W/OE and Tasks Member Role: Primary Care Nurse Name: Tammie Zamudio RN Position: [facility] RN Member Role: Primary Care Nurse Name: Dai Pham RN Position: [facility] RN Member Role: Primary Care Nurse Name: Yumiko Ontiveros RN Position: [facility] RN Member Role: Primary Care Nurse Name: Vinicio Carr RN Position: [facility] RN Member Role: Primary Care Nurse Name: Earle Coyne RN Position: [facility] RN Member Role: Primary Care Nurse Name: Saritha Prado RN Position: [facility] RN Member Role: Primary Care Nurse Name: Micaela Abad RN Position: [facility] RN Member Role: Primary Care Nurse Name: Sudha Black LPN Position: [facility] RN Member Role: Primary Care Nurse Name: Mary Fernandes RN Position: [facility] RN Member Role: Primary Care Nurse Name: Marlon Michelle RN Position: [facility] RN Member Role: Primary Care Nurse Name: Noelle Gill RN Position: [facility] RN Member Role: Primary Care Nurse Name: Tiana Galicia RN Position: [facility] RN Member Role: Primary Care Nurse Name: Divya Aguilar RN Position: [facility] RN Member Role: Primary Care Nurse Name: Doreen Doe LPN Position: [facility] RN Member Role: Primary Care Nurse Name: Nelda Martin LPN Position: [facility] RN Member Role: Primary Care Nurse Name: Cory Parker RN Position: [facility] RN Member Role: Primary Care Nurse Care Team Related Persons Name: PETE ACOSTA Insurance Providers Guarantor name: [facility] Information #: 1 [facility] Member Number: NA Policy Number: NA Group Number: NA
--- OUTSIDE RECORDS SUMMARY | 2024-06-06 16:36 | XMS_ITS | Continuity of Care Document ---
Author Organization [facility] ter Address [address] [place] [id number]- Support Name Relationship Address Phone PETE ACOSTA domestic partner Unknown Unavaila ble [place] [facility] [place] [id number] Date(s): 05/12/24 - 05/15/[address] [address] Discharge Disposition: A-D/C Home Attending Physician: Winsome Saunders MD Admitting Physician: Rodrigo Avila DO Referring Physician: Not on Staff, Referring MD [...] 2 Refills, Maintenance, 03/03/24 10:12:00PM EDT, Capsule, [facility] #[id number], Partial fill upon patient request if the [...] Date: 04/02/24 Status: Ordered Repeat number: 1 MorPHINE Immediate Release Tablet 30 mg, Tablet, By Mouth, 05/15/24 12:00:00 PM EST Start Date: 05/15/24 Stop Date: 05/15/24 Status: Completed Repeat number: 1 naloxone 4 mg/0.1 mL [...] Refills, Maintenance, 04/17/24 7:45:00 AM EST, Tablet, [facility] #[id number], Partial fill upon patient request if the prescription is for a schedule II opioid drug., 163, cm, 03/31/24 9:52:00 EDT, Height, 50, kg, 03/31/24 9:52:00 EDT, Dry Weight Start Date: 04/17/24 Status: Ordered Quantity: 60.0 Unit: tablet Repeat number: 1 Problem List Condition Confirmation Course Effective Dates Status Health [facility] at[facility] Informant Hypokalemia Confirmed Active Results Radiology Reports * Exam Date Time Procedure Performing Provider Status 05/11/24 11:[address] Abd/Pelvis W/ IV Contrast Only Heidy Shipman; Auth (Verified) Notes: (CT Abd/Pelvis W/ IV Contrast Only) Reason For Exam: LLQ abdominal pain;Other: RESULT: CT Abd/Pelvis W/ IV Contrast Only CT Abd/Pelvis W/ IV Contrast Only Hx of Present Illness: abd pain; Reason: Other:; LLQ abdominal pain; Clinical Question(s): Diverticulitis; Order Comment: Patient unable to tolerate PO contrast. TECHNIQUE: Spiral CT through the abdomen and pelvis with IV contrast formatted in 3 planes. 100 cc of Isovue 300 was administered intravenously. This study was performed without oral contrast. Weight-based protocol using automatic tube modulation was used to optimize exposure parameters. COMPARISON: None. FINDINGS: Inbound Sales Consultant View Findings, Lines and Tubes: The pancreatic stent appears to possibly have slightly changed in position. The tip now appears to be most likely located within the pancreatic head is posteriorly in the duodenum which was identified on the previous examination. Visualized Chest: Lung bases are clear. No pleural effusion. The heart is normal in size. No pericardial effusion. Diaphragm: Normal. Liver: Diffuse low-attenuation throughout the liver parenchyma consistent with hepatic steatosis. No evidence of mass. Gallbladder: Compared to the previous examination, the gallbladder now appears distended. Cystic duct appears distended. There does appear to be some air within the cystic duct. There is gallbladder wall thickening/pericholecystic fluid. Bile ducts: Prominent. Spleen: Normal. Pancreas: Normal. Adrenal glands: Normal. Kidneys and ureters: No hydronephrosis, stones, or suspicious masses. Bladder: The bladder wall appears somewhat hazy. Correlate clinically regarding cystitis. Reproductive organs: Unremarkable. Stomach, small bowel, and large bowel: Normal. Appendix: Not seen, but no evidence of appendicitis. Peritoneum and retroperitoneum: No ascites or pneumoperitoneum. No omental or mesenteric lesions. Lymph nodes: No enlarged lymph nodes. Blood vessels: Normal. No aneurysm. No evidence of venous thrombosis. Abdominal and pelvic wall: Unremarkable. Bones: No acute abnormality. IMPRESSION: Suspected mild pancreatic stent migration with the tip now appearing to be within the head of the pancreas. Diffuse gallbladder wall edema as well as distended gallbladder. Air is noted within the common bile duct and cystic duct region. Haziness of nondistended bladder could represent cystitis. Diffuse fatty infiltration of the liver. No other acute abnormality identified. WSN: [id number] Ordering Physician: Fifi Patel Dictated By: Iban Cárdenas MD Dictated Date/Time: 05/11/24 11:28 p Reviewed By: Iban Cárdenas MD Signed By: Iban Cárdenas MD Signed Date/Time: 05/11/24 11:28 pm Transcribed By: MIKI Transcribed Date/Time: 05/11/24 11:20 pm Vital Signs Most recent to oldest [Reference Range]: 1 2 3 Height 162 cm (05/15/24 10:12 AM) 162 cm (05/15/24 6:55 AM) 162 cm (05/14/24 11:33 PM) Weight 56.8 kg (05/15/24 7:43 AM) 57.0 kg (05/14/24 8:19 AM) 58 kg (05/13/24 3:31 PM) Oxygen Saturation [94-100 %] 100 % (05/15/24 10:12 AM) 98 % (05/15/24 6:55 AM) 98 % (05/14/24 11:33 PM) Pulse Rate [55-90 bpm] 66 bpm (05/15/24 10:12 AM) 84 bpm (05/15/24 6:55 AM) 94 bpm *H* (05/14/24 11:33 PM) Body Mass Index [18.5-24.99 kg/m2] 22.1 kg/m2 (05/13/24 3:31 PM) 22.1 kg/m2 (05/13/24 5:06 AM) 22.1 kg/m2 (05/12/24 1:49 AM) Blood Pressure [90-138/55-84 mm Hg] 103/63mm Hg (05/15/24 10:12 AM) 96/58mm Hg (05/15/24 6:55 AM) 96/53mm Hg (05/14/24 11:33 PM) Respiratory Rate [16-30 br/min] 16 br/min (05/15/24 12:30 PM) 18 br/min (05/15/24 10:12 AM) 20 br/min (05/15/24 6:55 AM) Temperature [96.8-100.4 DegF] 97.2 DegF (05/15/24 10:12 AM) 97.4 DegF (05/15/24 6:55 AM) 98.1 DegF (05/14/24 11:33 PM) Liters per Minute 6 L/min (05/13/24 6:00 PM) Mode of Delivery (Oxygen) Room air (05/15/24 10:12 AM) Room air (05/15/24 6:55 AM) Room air (05/14/24 11:33 PM) Blood pressure sites Arm, left (05/15/24 10:12 AM) Arm, left (05/15/24 6:55 AM) Arm, left (05/14/24 11:33 PM) Temperature Route Oral (05/15/24 10:12 AM) Oral (05/15/24 6:55 AM) Oral (05/14/24 11:33 PM) Dry Weight 58 kg (05/13/24 5:06 AM) 58 kg (05/12/24 1:49 AM) Weight Obtained Via Standing scale (05/15/24 7:43 AM) Standing scale (05/14/24 8:19 AM) Bed scale (05/13/24 5:06 AM) Dry Weight Obtained Via Bed scale (05/13/24 5:06 AM) Social History Social History Type Response Smoking Status Never (less than 100 in lifetime) entered on: 09/25/23 Sex Sex Representation Female (finding) History and physical note * Shannan REN, Karina A: PERFORM Event Display: History and Physical Hospital Authored Date: Patient: ??AGUILAR, CORRINE ? Age:??28 Years?Sex:??Female?:??1995?? Chief Complaint/Reason for Consultation Pancreatitis since september, started at 1pm, morphine not working at home, LUQ pain, N/V. History of Present Illness 05/12 ?? 28-year-old female with PMH including alcohol use disorder, alcohol associated chronic pancreatitis, h/o necrotizing pancreatitis, splenic/portal vein thrombosis, pancreatic pseudocyst s/p IR??percutaneous drainage, disconnected pancreatic duct syndrome, s/p ERCP with biliary sphincterotomy and biliary stent placement (Dr. Abraham 03/31/2024, attempt to cannulate PD was unsuccessful) and was followed by mild post ERCP pancreatitis, hepatic steatosis, asthma, ?hypothyroidism (not on meds), anemia, anxiety.?? Patient presented to ER with abdominal pain. ?? The patient says that she is having abdominal pain for about 2 days.?? The pain is in the epigastric area, localized, no radiation, severe 9/10, continuous, dull aching pain, no aggravating or relieving factors.?? Associate with nausea/vomiting, vomited about 7 times, no blood.?? No diarrhea.?? Denies any urinary symptoms.?? No fever, chill, cough, chest pain, shortness of breath. ?? Patient tells me that since she has had pancreatitis back in September of this year she has not had anyfurther alcohol use.?? Denies tobacco/drugs.?? No family history of pancreas related malignancy. ?? In ER patient was hemodynamically stable, afebrile.?? Labs shows mild leukocytosis 13.7, [id number], platelets normal, mild hypokalemia 3.5, normal anion gap metabolic acidosis, normal creatinine, normal lipase.?? Normal lactate.?? Bilirubin normal.?? AST 53, ALT 65, alkaline phosphatase 157, ALT is slightly higher than previous values.?? Alcohol not detected.?? negative.?? UA negative for infection.?? EKG showed sinus rhythm with heart rate of 92, QTc 477, T wave abnormality noted in inferior and lateral leads. ?? CT scan of the abdomen: IMPRESSION: Suspected mild pancreatic stent migration with the tip now appearing to be within the head of the pancreas. Diffuse gallbladder wall edema as well as distended gallbladder. Air is noted within the common bile duct and cystic duct region. Haziness of nondistended bladder could represent cystitis. Diffuse fatty infiltration of the liver. No other acute abnormality identified. ?? ER documented that they spoke with GI who will follow the patient during inpatient stay.?? Patient admitted for further evaluation. ?? Review of Systems All systems reviewed and negative except as in HPI. Objective Measurements?? Height: 162 cm (05/12/24) Weight: 58 kg (05/12/24) Dry Weight: 58 kg (05/12/24) Body Mass Index: 22.1 kg/m2 (05/12/24) ? Vital Signs?? Temperature: 97.7 DegF (05/12/24 01:49:00) Temperature Route: Oral (05/12/24 01:49:00) Pulse Rate: 81 bpm (05/12/24 01:49:00) Respiratory Rate: 18 br/min (05/12/24 03:07:00) Systolic Blood Pressure: 123 mm Hg (05/12/24 01:49:00) Diastolic Blood Pressure: 75 mm Hg (05/12/24 01:49:00) Blood pressure sites: Arm, right (05/12/24 01:49:00) Mean Arterial Pressure: 91 mm Hg (05/12/24 01:49:00) Pulse Pressure: 48 mm Hg (05/12/24 01:49:00) Oxygen Saturation: 98 % (05/12/24 01:49:00) Mode of Delivery (Oxygen): Room air (05/12/24 01:49:00) Early Warning Score: 2 (05/12/24 03:10:44) ? Physical Exam Constitutional: ??Alert,??no acute distress, co-operative, lying on the bed, saturating well on room air. ?? Mental state: Oriented x 3. Head: ??Normocephalic, atraumatic. ?? Eye:?No discharge. ENT: No discharge. Neck: ??Supple,??no JVD. Cardiovascular: ??S1, S2. Regular rhythm. No MRG. Respiratory: ??Lungs are clear to auscultation b/l, No RRR. ?? Gastrointestinal: ??Soft, tender over epigastric area, Non distended, ??Normal bowel sounds.?? Genitourinary: No costovertebral angle tenderness. Neurological: ??Cranial nerves intact. Motor and sensory intact.?? Back: ??Nontender. Musculoskeletal: ??Normal ROM.?? No edema Hematology: No lymphadenopathy Skin: ??Warm, dry. Psychiatric: ??Cooperative.?? 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 Assessment:??28-year-old female with PMH including alcohol use disorder, alcohol associated chronicpancreatitis, h/o necrotizing pancreatitis, splenic/portal vein thrombosis, pancreatic pseudocyst s/p IR??percutaneous drainage, disconnected pancreatic duct syndrome, s/p ERCP with biliary sphincterotomy and biliary stent placement (Dr. Abraham 03/31/2024, attempt to cannulate PD was unsuccessful) and was followed by mild post ERCP pancreatitis, hepatic steatosis, asthma, ?hypothyroidism (not on meds), anemia, anxiety.??Patient presented to ER with abdominal pain. ?? Abdominal pain (R10.9):??- Vomiting (R11.10):??- Migration of pancreatic stent (T85.528A):??- Chronic alcoholic pancreatitis (K86.0):??- History of alcohol use (Z87.898):??- Hypokalemia: Normal anion gap metabolic acidosis: Patient with history of alcohol induced??pancreatitis, chronic pancreatitis, necrotizing pancreatitis,??pancreatic pseudocyst,??ERCP induced pancreatitis.??Patient recently had ERCP,??suspected pancreatic duct stenosis,??unable to cannulate??PD,??then had??biliary stent placement.??Now presents with??worsening pain in the epigastric area??for 2 days along with nausea/vomiting.??Mild leukocytosis.??No fever.??CT scan showing normal pancreas,??lipase normal.??Mild transaminitis, slightly worse than baseline.??Gallbladder distended,??wall thickened,??pericholecystic fluid noted.??Also some air within the??cystic duct.??Cannot complete rule out??ascending infection. ?? N.p.o. Pain control with Dilaudid. Cont pregabalin. IV fluid hydration. I will cover with Zosyn??pending further evaluation by GI. Mild hypokalemia noted, replace potassium, check magnesium. Monitor??liver enzymes??and bilirubin. Resume pancrelipase when on diet. GI consult requested. Patient says that she does not take alcohol anymore, sober since September. ? Splenic vein thrombosis (I82.890):??As per patient not on eliquis anymore. PVT (portal vein thrombosis) (I81):??As per patient not on eliquis anymore. ?? Asthma (J45.909):??Nebs as needed. Hypothyroidism (E03.9):??Previously??documented.??Not on meds.?? Anemia (D64.9):??Monitor h/h Anxiety: Hydroxyzine prn. GERD: PPI ?? VTE Prophylaxis:??heparin s/c ?VTE Prophylaxis Assessment:??VTE Prophylaxis Ordered ?? Discharge Planning:? Code Status:??full code ?Order Code Status:??Code Status Ordered ? Estimated Discharge Date ? Histories Allergies Allergies ?(Active and Proposed Allergies Only) NKA? (Severity: Unknown severity, Onset: Unknown) ? Past Medical History/Problem List Active Problems(1) Hypokalemia ? Past Surgical History No surgery history documented. ? Social History Alcohol Details:??Use: Past. Substance Abuse Details:??Use: Never. Tobacco Details:??Use: Never (less than 100 in lifetime). ? Family History Mat. Grandmother: Diabetes mellitus ? Medications Home Medications Docusate-Senna (docusate-senna 50 mg-187 mg oral tablet)?TAKE 2 TABLETS BY MOUTH ONCE DAILY HydrOXYzine (hydrOXYzine pamoate 50 mg oral capsule)?TAKE 1 CAPSULE BY MOUTH EVERY 6 HOURS NEEDED FOR ANXIETY Mirtazapine (mirtazapine 7.5 mg oral tablet)?TAKE ONE TABLET AT BEDTIME Morphine (morphine 15 mg oral tablet, immediate release)?1?tab(s)?15?Milligram?By Mouth?Every 12 hours?AND 1 TABLET ONCE PER DAY nalOXONE (naloxone 4 mg/0.1 mL nasal spray)?ADMINISTER 1 SPRAY INTO AFFECTED NOSTRILS IF NEEDED FOR OPIOID REVERSAL. MAY REPEAT EVERY 2-3 MINUTES IF NEEDED. Pancrelipase (Creon 36,000 units oral delayed release capsule)?TAKE 1 CAPSULE BY MOUTH THREE TIMES DAILY TAKE WITH MEAL AND SNACK Pantoprazole (pantoprazole 40 mg oral delayed release tablet)?1?tab(s)?40?Milligram?By Mouth?Daily Polyethylene Glycol 3350 (polyethylene glycol 3350 oral powder for reconstitution)?MIX AND TAKE 17GM BY MOUTH ONCE DAILY Pregabalin (Lyrica 100 mg oral capsule)?1?capsule?100?Milligram?By Mouth?2 times a day Tramadol (traMADol 50 mg oral tablet)?1?tab(s)?50?Milligram?By Mouth?Every 6 hours?as needed?for pain ? Inpatient Medications Medications (15) Active SCHEDULED: (5) Heparin 5000 units/mL Inj (1 mL) (Heparin Inj) ??5,000 units 1 mL, Subcutaneous Injection, 3 times a day NaCl 0.9% Flush 3ml (NaCL 0.9% Flush) ??3 mL, IV Push, Every 8 hours Pantoprazole 40 mg EC Tablet (pantoprazole 40 mg oral delayed release tablet) ??40 mg, By Mouth, Daily Piperacillin/Tazobactam 3.375 Gm Inj (Zosyn Extended IVPB) ??3.375 Gm, IVPB, Every 8 hours Pregabalin 50 mg Capsule (Lyrica 50 mg oral capsule) ??100 mg, By Mouth, 2 times a day CONTINUOUS: (1) NaCL 0.9% 1000 mL w/KCL 20 mEq 1,000 mL (NaCL 0.9% 1000mL w/KCL 20mEq 1,000 mL) ??1,000 mL, IV Infusion, 100 mL/hr PRN: (9) Acetaminophen 325 mg Tablet (Acetaminophen Tablet) ??650 mg, By Mouth, Every 4 hours Docusate Sodium 100 mg Capsule (Docusate Sodium Capsule) ??100 mg 1 capsule, By Mouth, 2 times a day HYDROmorphone 1 mg/mL Inj Syringe (Dilaudid Inj) ??1 mg 1 mL, IV Push Slowly, Every 4 hours HydrOXYzine Pamoate 25mg Capsule (hydrOXYzine pamoate 25 mg oral capsule) ??50 mg, By Mouth, Every 6 hours Melatonin 3 mg Tablet (Melatonin Tablet) ??3 mg, By Mouth, Daily at bedtime NaCl 0.9% Flush 3ml (NaCL 0.9% Flush) ??3 mL, IV Push, Every 8 hours Polyethylene Glycol 17 Gm Powder (MiraLax Powder) ??17 Gm 1 pack/packet, By Mouth, Daily Senna Tablet ??8.6 mg 1 tablet, By Mouth, 2 times a day Simethicone 80 mg Chewable Tablet (Simethicone Tablet) ??80 mg, Chew, 3 times a day ? Results Recent Labs BLOOD COUNT & DIFF WBC 13.7 k/mm3 (High)?? 05/11/2024 22:04 RBC 4.69 m/mm3 ()?? 05/11/2024 22:04 Hgb 12.1 Gm/dL ()?? 05/11/2024 22:04 Hct 38.0 % ()?? 05/11/2024 22:04 MCV 81.0 femtoliters ()?? 05/11/2024 22:04 MCH 25.8 pg (Low)?? 05/11/2024 22:04 MCHC 31.8 Gm/dL (Low)?? 05/11/2024 22:04 Platelet Count 258 k/mm3 ()?? 05/11/2024 22:04 RDW-SD 43.5 femtoliters ()?? 05/11/2024 22:04 MPV 10.8 femtoliters ()?? 05/11/2024 22:04 Nucleated RBC (Automated) 0.0 #/100 WBC'S ()?? 05/11/2024 22:04 Abs. NRBC 0.0 k/mm3 ()?? 05/11/2024 22:04 Abs. Neut 11.3 k/mm3 (High)?? 05/11/2024 22:04 Abs. Lymph 1.6 k/mm3 ()?? 05/11/2024 22:04 Abs. [place] 0.6 k/mm3 ()?? 05/11/2024 22:04 Abs. Eo 0.0 k/mm3 ()?? 05/11/2024 22:04 Abs. Baso 0.1 k/mm3 ()?? 05/11/2024 22:04 Neut % 82.7 % (High)?? 05/11/2024 22:04 Lymph % 11.7 % (Low)?? 05/11/2024 22:04 [place] % 4.5 % ()?? 05/11/2024 22:04 Eos % 0.2 % ()?? 05/11/2024 22:04 Baso % 0.4 % ()?? 05/11/2024 22:04 Imm Gran 0.5 % ()?? 05/11/2024 22:04 Abs. Imm Gran 0.1 k/mm3 ()?? 05/11/2024 22:04 ?? CHEM GENERAL Sodium 137 mmol/L ()?? 05/11/2024 22:04 Potassium 3.5 mmol/L (Low)?? 05/11/2024 22:04 Chloride 102 mmol/L ()?? 05/11/2024 22:04 Bicarbonate Level 19 mmol/L (Low)?? 05/11/2024 22:04 Anion Gap 16 ()?? 05/11/2024 22:04 Glucose Level 128 mg/dL (High)?? 05/11/2024 22:04 BUN 10 mg/dL ()?? 05/11/2024 22:04 Creatinine-Blood 0.48 mg/dL (Low)?? 05/11/2024 22:04 Estimated GFR Creatinine 132 ML/MIN/1.73 M2 ()?? 05/11/2024 22:04 Calcium 9.2 mg/dL ()?? 05/11/2024 22:04 Protein, Total 7.0 Gm/dL ()?? 05/11/2024 22:04 Albumin 4.4 Gm/dL ()?? 05/11/2024 22:04 AG Ratio 1.7 ()?? 05/11/2024 22:04 Alkaline Phosphatase 157 units/L (High)?? 05/11/2024 22:04 Lipase 8 units/L (Low)?? 05/11/2024 22:04 AST (SGOT) 53 units/L (High)?? 05/11/2024 22:04 ALT (SGPT) 65 units/L (High)?? 05/11/2024 22:04 Bilirubin, Total 0.4 mg/dL ()?? 05/11/2024 22:04 Lactate 1.6 mmol/L ()?? 05/11/2024 22:04 ?? ENDOCRINE/TUMOR MARKER Blood <1 mIU/mL ()?? 05/11/2024 22:04 ?? HEME OTHER Hold Blue Top SPECIMEN DISCARDED AFTER 4 HOURS. ()?? 05/11/2024 22:04 ?? TOXICOLOGY/TDM Ethanol, Serum or Plasma NONE DETECTED mg/dL ()?? 05/11/2024 22:04 ?? UA/URINALYSIS Appear/Color, Urine YELLOW ()?? 05/11/2024 22:00 Specific [place], Urine 1.032 (High)?? 05/11/2024 22:00 pH, Urine 6.0 ()?? 05/11/2024 22:00 Albumin, Urine 1+ (Abnormal)?? 05/11/2024 22:00 Glucose, Urine NEGATIVE ()?? 05/11/2024 22:00 Ketones, Urine 1+ (Abnormal)?? 05/11/2024 22:00 Bilirubin, Urine NEGATIVE ()?? 05/11/2024 22:00 Hemoglobin, Urine NEGATIVE ()?? 05/11/2024 22:00 Nitrite, Urine POSITIVE (Abnormal)?? 05/11/2024 22:00 Leukocyte, Urine NEGATIVE ()?? 05/11/2024 22:00 Urobilinogen NORMAL mg/dL ()?? 05/11/2024 22:00 WBC's, Urine 4 /HPF ()?? 05/11/2024 22:00 RBC's, Urine 2 /HPF ()?? 05/11/2024 22:00 Bacteria MODERATE HPF (Abnormal)?? 05/11/2024 22:00 Squamous Epith 2 /HPF ()?? 05/11/2024 22:00 Mucus SLIGHT /LPF ()?? 05/11/2024 22:00 Hold Urine Culture Testing available 48 hours from time of collection. ()?? 05/11/2024 22:00 ?? URINE OTHER Est Creatinine Clearance 149.28 mL/min ()?? 05/12/2024 01:59 ? EKG study * Event Display: ECG 12-Lead Authored Date: Please click on pdf link to open report * Event Display: ECG 12-Lead Authored Date: Ventricular Rate: 92 BPM Atrial Rate: 92 BPM P-R Interval: 134 ms QRS Duration: 80 ms Q-T Interval: 386 ms QTC Calculation(Bazett): 477 ms P Preble: 77 degrees R Preble: 68 degrees T Preble: -28 degrees Normal sinus rhythm Possible Lateral infarct , age undetermined T wave abnormality, consider inferior ischemia T wave abnormality, consider anterior ischemia Abnormal ECG When compared with ECG of 02-Apr-2024 00:49, Inverted T waves have replaced nonspecific T wave abnormality in Inferior leads T wave inversion now evident in Anterior leads QT has lengthened Confirmed by TRANG REN, [facility] ([id number]) on 05/12/2024 8:44:52 AM [place] * Tito Alvarado DO: PERFORM Event Display: [facility] Authored Date: Patient: ??AGUILAR, CORRINE ? Age:??28 Years?Sex:??Female?:??1995?? Subjective No acute overnight events. ?? Patient seen bedside this morning 05/14. She endorsed 20/10 abdominal pain, predominately in the RLQ and LLQ. She denied any fevers, chills, chest pain, palpitations, SOB. She reported she has been urinating well, without any pain. She mentioned she is passing gas, but has not had a bowel movement yet since the procedure. No other questions or concerns. ?? Patient seen with rest of treatment team later in the day. She was amenable to transitioning to oral pain medication control: scheduled home morphine IR 30mg q12 hours with prn 5mg oxycodone q6. She voiced preferring to stay in the hospital another day. Anticipated discharge 05/15. ?? Reached out to surgery team??to confirm d/c of Zosyn (Today was day 3). ?? Review of Systems Objective Vital Signs?? Temperature: 98.2 DegF (05/14/24 17:00:00) Temperature Route: Oral (05/14/24 17:00:00) Pulse Rate: 71 bpm (05/14/24 17:00:00) Heart Rate Monitored: 84 bpm (05/13/24 19:26:49) Respiratory Rate: 18 br/min (05/14/24 17:00:00) Systolic Blood Pressure: 104 mm Hg (05/14/24 17:00:00) Diastolic Blood Pressure: 64 mm Hg (05/14/24 17:00:00) Blood pressure sites: Arm, right (05/14/24:00:00) Mean Arterial Pressure: 77 mm Hg (05/14/24 06:01:00) Pulse Pressure: 40 mm Hg (05/14/24 17:00:00) Oxygen Saturation: 99 % (05/14/24 17:00:00) Mode of Delivery (Oxygen): Room air (05/14/24 17:00:00) Early Warning Score: 0 (05/14/24 18:03:33) ? Physical Exam Constitutional: Alert, in no distress. Mental Status: Oriented to person, place and time. Head: Normocephalic. Eyes: Extraocular muscles intact. Ear, Nose and Throat: Oropharynx clear, mucous membranes moist. Trachea midline. Neck: Supple, Full range of motion. Respiratory: CTAB Cardiovascular: RRR. Normal S1??+ S2, no murmurs, rubs, or gallops. Gastrointestinal: Abdomen soft, mildly distended. Diffuse tenderness no palpation. No rebound tenderness, no guarding, no rigidity. Neurologic: Moves all extremities spontaneously. Sensation intact bilaterally. Skin: No rashes or lesions. Musculoskeletal: Normal range of motion. Results Recent Labs BACTERIOLOGY Urine Culture Results Final report (Abnormal)?? 05/11/2024 22:00 Urine Culture Isolate 1 Klebsiella pneumoniae (Abnormal)?? 05/11/2024 22:00 Urine Cult Antimicrobial Susceptibility Comment ()?? 05/11/2024 22:00 ?? CHEM GENERAL Sodium 137 mmol/L ()?? 05/13/2024 03:01 Potassium 4.1 mmol/L ()?? 05/13/2024 03:01 Chloride 105 mmol/L ()?? 05/13/2024 03:01 Bicarbonate Level 22 mmol/L ()?? 05/13/2024 03:01 Anion Gap 10 ()?? 05/13/2024 03:01 Glucose Level 101 mg/dL (High)?? 05/13/2024 03:01 BUN 4 mg/dL (Low)?? 05/13/2024 03:01 Creatinine-Blood 0.51 mg/dL ()?? 05/13/2024 03:01 Estimated GFR Creatinine 130 ML/MIN/1.73 M2 ()?? 05/13/2024 03:01 Calcium 8.7 mg/dL ()?? 05/13/2024 03:01 Protein, Total 5.6 Gm/dL (Low)?? 05/14/2024 06:23 Albumin 3.5 Gm/dL ()?? 05/14/2024 06:23 Alkaline Phosphatase 146 units/L (High)?? 05/14/2024 06:23 AST (SGOT) 83 units/L (High)?? 05/14/2024 06:23 ALT (SGPT) 108 units/L (High)?? 05/14/2024 06:23 Bilirubin, Total 0.5 mg/dL ()?? 05/14/2024 06:23 Bilirubin, Direct 0.2 mg/dL ()?? 05/14/2024 06:23 Bilirubin, Indirect 0.3 mg/dL ()?? 05/14/2024 06:23 ?? URINE OTHER Est Creatinine Clearance 140.50 mL/min ()?? 05/13/2024 04:13 ? Assessment/Plan 28-year-old female with PMH including alcohol use disorder, alcohol associated chronic pancreatitis, h/o necrotizing pancreatitis, splenic/portal vein thrombosis, pancreatic pseudocyst s/p IR??percutaneous drainage, disconnected pancreatic duct syndrome, s/p ERCP with biliary sphincterotomy and biliary stent placement (Dr. Abraham 03/31/2024, attempt to cannulate PD was unsuccessful) and was followed by mild post ERCP pancreatitis, hepatic steatosis, asthma, hypothyroidism (not on meds), anemia,anxiety.??Patient presented to ER with abdominal pain on 05/11. CT showed mild pancreatic stent migration, gall bladder wall edema and distention, air in common bile duct, question of cystitis, and fatty infiltration of liver. GI was consulted, biliary stent appeared??in appropriate position. General surgery was consulted for acute cholecystitis, started on Zosyn. Patient is s/p??lap tracy done on05/13. ?? Abdominal pain (R10.9):?? Chronic alcoholic pancreatitis (K86.0):?? History of alcohol use (Z87.898):?? Acute cholecystitis (K81.0) S/P lap tracy done on 05/13 without any complications. Patient is on chronic opioids at home. Was getting IV Dilaudid 1mg q 3 hours prn for abdominal pain. Transitioned to oral pain control today. Noguarding, rigidity, rebound tenderness on physical exam. Zosyn d/c??on day 3 after??confirming with??surgery team. IV hydration d/c. Patient tolerating??diet well. Patient reports sobriety since September 2023.? Plan: - Low fat diet - Appropriate for discharge from surgical standpoint - Follow up in [facility]/Trauma Clinic in 1-2 weeks - D/C Zosyn, on day 3 - D/C IV Dilaudid - Restart??home Morphine IR 30mg BID, scheduled - Oxycodone 5mg q6 PRN for breakthrough pain - Continue home Lyrica ?? 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 ?? Transaminitis (74.01) Elevated compared to baseline. S/P lap tracy 05/13. -Continue to monitor - Surgery signed off ?? Chronic/Resolved Conditions: Vomiting (R11.10):??Resolved Splenic vein thrombosis (I82.890):??As per patient not on Eliquis anymore. PVT (portal vein thrombosis) (I81):??As per patient not on Eliquis anymore. Asthma (J45.909):??Nebs as needed. Hypothyroidism (E03.9):??Previously??documented.??Not on meds.?? Anemia (D64.9):??Currently stable Anxiety: Hydroxyzine prn. Patient reports she takes Zyprexa for anxiety as well, denies other psychiatric history. Insomnia: Remeron GERD: PPI ?? VTE Prophylaxis:??heparin s/c Code Status:??full code Diet:??Low Fat ? Case and plan discussed with attending physician, Dr. Saunders. ?? Tito Alvarado D.O. PGY-1 Department of Psychiatry [facility] Pager [phone] * Chip REN, Winsome: PERFORM Event Display: Progress Note Hospital Authored Date: Attending Attestation:??I have seen and examined this patient on date of service. ??I have discussed the case and its management with the resident and agree with the findings and plan as documented in the resident???s note. * Alana Barriga MD: PERFORM Event Display: Progress Note Hospital Authored Date: Patient: ??AGUILAR, CORRINE ? Age:??28 Years?Sex:??Female?:??1995?? Subjective Patient was seen and examined on morning rounds. She was sleeping comfortably in bed. She is POD1 robotic-assisted cholecystectomy. She continues to endorse abdominal pain, but is tolerating a diet without nausea or vomiting and appears well. Port sites are c/d/i with surgical glue. Abdomen is soft, mildly distended and appropriately TTP. She denies any N/V, fevers, chills, chest pain or SOB. Review of Systems A comprehensive ROS was completed and was negative or as stated above. Physical Exam Vitals & Measurements T:??98.2?F?? HR:??77??(Peripheral)?? RR:??14?? BP:??103/64?? SpO2:??100%?? HT:??162??cm?? WT:??57.0??kg?? BMI:??22.1?? Constitutional: Alert, in no distress. Mental Status: Oriented to person, place and time. Head: Normocephalic. Eyes: Extraocular muscles intact. Ear, Nose and Throat: Oropharynx clear, mucous membranes moist. Trachea midline. Neck: Supple, Full range of motion. Respiratory: No wheezing, no cough, no evidence of respiratory distress. On RA. Cardiovascular: RRR. Gastrointestinal: Abdomen soft, appropriately tender, mildly distended. Port sites c/d/i with overlying skin glue. Neurologic: Moves all extremities spontaneously. Sensation intact bilaterally. Skin: No rashes or lesions. Musculoskeletal: Normal range of motion. Assessment/Plan Ms. Aguilar [...] due to persistent abdominal pain??despite pain regimen. Admitted to the hospital on 05/11. Labs notable for leukocytosis to 13.7 with neutrophilic shift to 82.7, Alk phos 157, AST/ ALT to 53/ 65. CT with distended and thickened??gallbladder for which general surgery was consulted. She was taken to the OR yesterday (05/13) for robotic-assisted laparoscopic cholecystectomy. Patient tolerated the operation well with no complications. Postoperatively she continues to have some abdominal pain but is otherwise feeling well, ambulating, tolerating adiet, passing gas and voiding appropriately. She is stable for discharge from a surgical perspective. ?? Recs: - Low fat diet - Appropriate for discharge from surgical standpoint - ACS will sign off at this time - Follow up in ACS/Trauma Clinic in 1-2 weeks - Rest of care per primary team ?? Discussed with Dr. Colon Please page [phone] with questions or concerns ?? Intake and Output Intake and Output Results?? This visit (24 hour periods starting at 07:00 EST)? 05/14/24 *?? 05/13/24?? 05/12/24?? Total Summary?Intake mL?? --?? 2,654?? 2,862?Output mL?? --?? --?? --?Fluid Balance ?? --?? 2,654?? 2,862?? Intake (3)?Oral Fluids mL?? --?? 454?? 462?Other IV mL?? --?? 100?? --?Potassium Chloride-Sodium Chloride 1,000 mL mL?? --?? 2,100?? 2,400?Total?? --?? 2,654?? 2,862?? Output (0)? Counts (2)?Oral Fluids mL?? --?? 454?? 462?Urine Count ?? --?? 5?? 5? * This column has not completed the indicated time period.?? Labs Last 24 Hours CHEM GENERAL ? Event Name?? Event Result?? Date/Time?? Alkaline Phosphatase 146 units/L??High 05/14/24 06:23:00 AST (SGOT) 83 units/L??High 05/14/24 06:23:00 ALT (SGPT) 108 units/L??High 05/14/24 06:23:00 Bilirubin, Total 0.5 mg/dL 05/14/24 06:23:00 Bilirubin, Direct 0.2 mg/dL 05/14/24 06:23:00 Bilirubin, Indirect 0.3 mg/dL 05/14/24 06:23:00 ? * Kelly Rose RN: VERIFY, PERFORM, SIGN Event Display: Progress Note Hospital Authored Date: Patient: CORRINE AGUILAR [facility]: [id number] Age: 28 years Sex: Female : 1995 Associated Diagnoses: None Author: Rose GALLEGOS, Kelly Findings Evaluation Patient A+Ox4. Patient had cholecystectomy today. 4 lap tracy sites were noted post op, although PACU documented 5 sites. This was communicated to overnight surgery provider. VSS. Respirations were ranging from 12-14 post op, Jose C [employer] BUILD[employer] SUPERVISOR was notified and said that it was okay to administer PRN Dilaudid Q3H. Respirations increased to 16 as shift went on. Tolerating Dilaudid well. Diet advanced per [employer] BUILD[employer] SUPERVISOR/surgical provider. Patient tolerating diet well. Bed locked and in lowest position. Call latham within reach. Patient safety remained.. Consult note * Siva REN, Vitalis C: PERFORM, MODIFY, MODIFY, MODIFY Event Display: Consultation Note Authored Date: Patient: ??CORRINE AGUILAR ? Age:??28 Years?Sex:??Female?:??1995?? Chief Complaint Consulting Provider: Alexandria Carranza DO Reason for Consult: Abdominal pain General Surgeon: Carmen San MD History of Present Illness Ms. Aguilar [...] due to persistent abdominal pain??despite pain regimen. Admitted to the hospital on 05/11. Labs notable for leukocytosis to 13.7 with neutrophilic shift to 82.7, Alk phos 157, AST/ ALT to 53/ 65. CT with distended gallbladder and migration of pancreatic stent,??for which general surgery was consulted. ?? Upon my evaluation, she is resting comfortably in bed and in no acute distress. She tells me that her symptoms have progressively??worsened overtime, with associated nausea/ emesis. Her last PO intake was dinner tonight. She had broth,??with some n/v.??She denies any fevers. She tells me that she??takes 60mg daily of morphine??for pain control. She used to take Lyrica and Eliquis,??but has since discontinued??these medications. She is ambulating well, and denies any chest pain, shortness of breath, or lightheadedness. Remained hemodynamically stable throughout my evaluation. ? Review of Systems A comprehensive review of system was completed, and is either negative or as indicated above.?? Physical Exam Vitals & Measurements T:??97.6?F?? HR:??73??(Peripheral)?? RR:??18?? BP:??107/68?? SpO2:??100%?? HT:??162??cm?? WT:??58??kg?? BMI:??22.1?? Constitutional: Alert, in no distress. Mental Status: [...] pancreatitis, who is presenting with abdominal pain for which general surgery was consulted. I have??carefully reviewed the CT A/P. There is distended gallbladderwith wall thickening.??There are surrounding inflammatory changes as well. I suspect that progressively worsening pain is secondary to gallbladder pathology, and we will plan for laparoscopic cholecystectomy tomorrow. Continue ABx,??pain??control, and NPO@MN for OR. ? Case discussed with Dr. San EGZahida [id number] Problem List/Past Medical History Ongoing Hypokalemia Procedure/Surgical History No qualifying data available. Home Medications Docusate-Senna: TAKE 2 TABLETS BY MOUTH ONCE DAILY HydrOXYzine: TAKE 1 CAPSULE BY MOUTH EVERY 6 HOURS NEEDED FOR ANXIETY Mirtazapine: TAKE ONE TABLET AT BEDTIME Morphine: 15 mg = 1 tablet, By Mouth, Every 12 hours, AND 1 TABLET ONCE PER DAY nalOXONE: ADMINISTER 1 SPRAY INTO AFFECTED NOSTRILS [...] ? Event Name?? Event Result?? Date/Time?? WBC 13.7 k/mm3??High 05/11/24 22:04:00 RBC 4.69 m/mm3 05/11/24 22:04:00 Hgb 12.1 Gm/dL 05/11/24 22:04:00 Hct 38 % 05/11/24 22:04:00 MCV 81 femtoliters 05/11/24 22:04:00 MCH 25.8 pg??Low 05/11/24 22:04:00 MCHC 31.8 Gm/dL??Low 05/11/24 22:04:00 Platelet Count 258 k/mm3 05/11/24 22:04:00 MPV 10.8 femtoliters 05/11/24 22:04:00 Nucleated RBC (Automated) 0 #/100 WBC'S 05/11/24 22:04:00 ? CHEM GENERAL ? Event Name?? Event Result?? Date/Time?? Sodium 138 mmol/L 05/12/24 13:18:00 Chloride 102 mmol/L 05/12/24 13:18:00 Bicarbonate Level 23 mmol/L 05/12/24 13:18:00 Anion Gap 13 05/12/24 13:18:00 Glucose Level 120 mg/dL??High 05/12/24 13:18:00 BUN 7 mg/dL 05/12/24 13:18:00 Creatinine-Blood 0.57 mg/dL 05/12/24 13:18:00 Magnesium 1.8 mg/dL 05/11/24 22:04:00 Alkaline Phosphatase 157 units/L??High 05/11/24 22:04:00 Lipase 8 units/L??Low 05/11/24 22:04:00 AST (SGOT) 53 units/L??High 05/11/24 22:04:00 ALT (SGPT) 65 units/L??High 05/11/24 22:04:00 Bilirubin, Total 0.4 mg/dL 05/11/24 22:04:00 ? * Moiz Garcia MD: MODIFY Moiz Garcia MD: MODIFY Event Display: Consultation Note Authored Date: Patient: ??AGUILAR, CORRINE ? Age:??28 Years?Sex:??Female?:??1995?? Referrring Provider Not on Staff, Referring MD Amanda NP Chief Complaint Pancreatitis since september, started at 1pm, morphine not working at home, LUQ pain, N/V. 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 GI is consulted for abdominal pain. ?? The patient reports that she has been living with??epigastric pain.?? Yesterday she had sudden increase in her pain. ??She has not been eating for 2 days.?? Denies fever or chills.?? Has not been drinking??since February. ?? ERCP 03/31: Was found to have papillary stenosis.?? Unable to gain pancreatic duct as this was wired guided techniques, biliary access was obtained and attempt for pancreatic duct access.?? Cholangiogram demonstrated sluggish contrast drainage and with the potential to facilitate later pancreatic duct access, biliary sphincterotomy was performed with placement of 10 Romanian by 7 cm plastic biliarystent. The plan was to repeat MRCP in mid May and then likely??remove the biliary stent and attempt to place a PD stent in 6 weeks ?? Prior to that ERCP the patient was evaluated at the GI clinic for abdominal pain.?? There was a concern about pancreatic ductal hypertension and despite being on Lyrica and opioids she continues to have pain.?? Afternoons did not improve her symptoms. ?? CT abdomen pelvis with IV contrast 05/11 with suspected mild pancreatic stent migration with the tipnow appearing within the head of the pancreas.?? Gallbladder appears distended with wall thickening/pericholecystic fluid.?? Fatty liver. ?? Labs with WBC count 13.7, hemoglobin 12.1, AST 53, ALT 65, alk phos 157, T. bili 0.4.?? Lipase 8.?? Negative serum ethanol. Review of Systems Negative except as above.?? Physical Exam Vitals & Measurements T:??97.6?F?? TMIN:??97.5?F?? TMAX:??98?F?? HR:??73??(Peripheral)?? RR:??17?? BP:??107/68??SpO2:??100%?? WT:??58??kg?? General:??No acute distress. Well developed HEENT:??Moist mucus membranes. Anicteric sclera Respiratory:??Speaking comfortably. Not dyspneic Cardiovascular:??Normal rate, regular rhythm, no murmurs?? GI/Abdomen:??soft, upper abdominal tenderness more in the epigastric area but also on R and L upperquadrants , non-distended Extremities:??No edema. No clubbing or cyanosis. Skin:??No jaundice. No rash Neurologic:??Alert & Oriented. Moves all extremities.?? 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 ?? Imaging reviewed. The patient has only biliary stent that appears??in appropriate position. GB with??thickened jaffe and pericholecystic fluid. ?? -General Surgery consulted to rule out acute cholecystitis -GI will??sign??off. ?? Plan discussed with primary team.?? Patient discussed with??attending physician? Kristyn Irving MD?? Gastroenterology Fellow - PGY 4 ?? Addendum: I have seen and evaluated this patient. ??I have discussed the case and its management with??fellow/resident??and agree with the findings and plan as documented in the note above.??Consult surgery for cholecystitis. GI will sign off. ?? Moiz Garcia MD Problem List/Past Medical History Ongoing Hypokalemia Medications Inpatient Acetaminophen Tablet, 650 mg, By Mouth, Every 4 hours, PRN Dilaudid Inj, 1 mg= 1 mL, IV Push Slowly, Every 3 hours, PRN Docusate Sodium Capsule, 100 mg= 1 capsule, By Mouth, 2 times a day, PRN Heparin Inj, 5000 units= 1 mL, Subcutaneous Injection, 3 times a day hydrOXYzine pamoate 25 mg oral capsule, 50 mg, By Mouth, Every 6 hours, PRN Lyrica 50 mg oral capsule, 100 mg, By Mouth, 2 times a day Melatonin Tablet, 3 mg, By Mouth, Daily at bedtime, PRN MiraLax Powder, 17 Gm= 1 pack/packet, By Mouth, Daily, PRN NaCL 0.9% 1000mL w/KCL 20mEq 1,000 mL, 1000 mL, IV Infusion NaCL 0.9% Flush, 3 mL, IV Push, Every 8 hours NaCL 0.9% Flush, 3 mL, IV Push, Every 8 hours, PRN pantoprazole 40 mg oral delayed release tablet, 40 mg, By Mouth, Daily Senna Tablet, 8.6 mg= 1 tablet, By Mouth, 2 times a day, PRN Simethicone Tablet, 80 mg, Chew, 3 times a day, PRN Zosyn Extended IVPB, 3.375 Gm, IVPB, Every 8 hours Home Creon 36,000 units oral delayed release capsule docusate-senna 50 mg-187 mg oral tablet hydrOXYzine pamoate 50 mg oral capsule Lyrica 100 mg oral capsule, 100 mg= 1 capsule, By Mouth, 2 times a day, 2 refills mirtazapine 7.5 mg oral tablet morphine 15 mg oral tablet, immediate release, 15 mg= 1 tablet, By Mouth, Every 12 hours naloxone 4 mg/0.1 mL nasal spray pantoprazole 40 mg oral delayed release tablet, 40 mg= 1 tablet, By Mouth, Daily polyethylene glycol 3350 oral powder for reconstitution traMADol 50 mg oral tablet, 50 mg= 1 tablet, By Mouth, Every 6 hours, PRN Allergies NKA Social History Alcohol Use: Past. Substance Abuse Use: Never. Tobacco Use: Never (less than 100 in lifetime). Family History Diabetes mellitus: Mat. Grandmother. Note * Mary Fernandes RN: PERFORM Event Display: Discharge/Transfer Note Hospital Authored Date: Nursing Discharge Note Entered On: 05/15/2024 12:47 EST Performed On: 05/15/2024 12:50 EST by Mary Fernandes RN Nursing Discharge Note 2 Discharge Time : 05/15/2024 12:50 EST Discharge Level of Care at Discharge : Home/Intermediate/Foster Care Patient Left Unit Via : Wheelchair Patient Accompanied Off Unit with : Responsible adult DC Instructions Provided & Signed by Pt : Yes Patient Understands D/C Instructions : Yes Patient Instructions Discharge Signed : Yes Did Pt have Specialty Bed or Wound Vac : No Mary Fernandes RN - 05/15/2024 12:47 EST * Winsome Saunders MD: MODIFY Winsome Saunders MD: MODIFY, MODIFY, MODIFY Event Display: Discharge/Transfer Note Hospital Authored Date: [id number] Patient: ??CORRINE AGUILAR ? Age:??28 Years?Sex:??Female?:??1995?? Patient Information Discharge Location: S15 Primary Care Physician:?? Admit Date/Time: 05/12/2024 00:14 Discharge Disposition Discharge Disposition: Home: No Services Discharge Diagnosis Acute cholecystitis (K81.0), s/p robotic-assisted laparoscopic cholecystectomy on 05/13. ?? 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) History of alcohol use (Z87.898) Chronic alcoholic pancreatitis (K86.0) Asthma (J45.909) PVT (portal vein thrombosis) (I81) Splenic vein thrombosis (I82.890) Anemia (D64.9) Hypothyroidism (E03.9) Acute cholecystitis (K81.0) Transaminitis (R74.01) _ Discharge Medications Docusate-Senna (docusate-senna 50 mg-187 mg oral tablet)?TAKE 2 TABLETS BY MOUTH ONCE DAILY HydrOXYzine (hydrOXYzine pamoate 50 mg oral capsule)?TAKE 1 CAPSULE BY MOUTH EVERY 6 HOURS NEEDED FOR ANXIETY Mirtazapine (mirtazapine 7.5 mg oral tablet)?TAKE ONE TABLET AT BEDTIME Morphine (morphine 15 mg oral tablet, immediate release)?1?tab(s)?15?Milligram?By Mouth?Every 12 hours?? nalOXONE (naloxone 4 mg/0.1 mL nasal spray)?ADMINISTER 1 SPRAY INTO AFFECTED NOSTRILS IF NEEDED FOR OPIOID REVERSAL. MAY REPEAT EVERY 2-3 MINUTES IF NEEDED. Olanzapine (olanzapine 20 mg oral tablet, disintegrating)?DISSOLVE 1 TABLET ON THE TONGUE AT BEDTIME Pancrelipase (Creon 36,000 units oral delayed release capsule)?TAKE 1 CAPSULE BY MOUTH THREE TIMES DAILY TAKE WITH MEAL AND SNACK Pantoprazole (pantoprazole 40 mg oral delayed release tablet)?1?tab(s)?40?Milligram?By Mouth?Daily Polyethylene Glycol 3350 (polyethylene glycol 3350 oral powder for reconstitution)?MIX AND TAKE 17GM BY MOUTH ONCE DAILY Pregabalin (Lyrica 100 mg oral capsule)?1?capsule?100?Milligram?By Mouth?2 times a day Tramadol (traMADol 50 mg oral tablet)?1?tab(s)?50?Milligram?By Mouth?Every 6 hours?as needed?for pain ? Medications Started None Medications Discontinued None Doses Changed Patient was instructed that she can take her home morphine dose of 30mg TID instead of BID for the next 3 days if needed for pain s/p cholecystectomy. Afterwards, she can return to her original regimen of 30mg BID. Allergies Allergies ?(Active and Proposed Allergies Only) NKA? (Severity: Unknown severity, Onset: Unknown) ? PCP Follow-Up/Heads-Up Patient was admitted for acute cholecystitis, s/p robotic-assisted laparoscopic cholecystectomy done on 05/13. She is off antibiotics, tolerated the procedure well without complications. She has had a bowel movement since the procedure, is tolerating her diet, voiding without complications, and is able to get out of bed and ambulate without any difficulties. Pain is under control. ?? GI confirmed her stent is in the proper location. ?? Please follow-up with your patient regarding her abdominal pain. She was instructed that she can take her home morphine TID rather than BID if needed for the next 3 days for further pain management before returning to her original regimen of BID. Future Appointments Sunday 10:40 AM EST ?? With: John Colon DO Where: [facility] [address] [place] [id number]- Status: Pending Sunday 7:30 AM EST ?? Where: [facility] Status: Pending Sunday 10:45 AM EST ?? With: Scherer Kevin BRADSHAW Where: [facility] [address] [place] [id number]- Status: Pending Hospital Course 28-year-old female with PMH including alcohol use disorder, alcohol associated chronic pancreatitis, h/o necrotizing pancreatitis, splenic/portal vein thrombosis, pancreatic pseudocyst s/p IR percutaneous drainage, disconnected pancreatic duct syndrome, s/p ERCP with biliary sphincterotomy and biliary stent placement (Dr. Abraham 03/31/2024, attempt to cannulate PD was unsuccessful) and was followed by mild post ERCP pancreatitis, hepatic steatosis, asthma, hypothyroidism (not on meds), anemia, anxiety. Patient presented to ER with abdominal pain on 05/11. CT showed mild pancreatic stent migration, gall bladder wall edema and distention, air in common bile duct, question of cystitis, and fatty infiltration of liver. GI was consulted, biliary stent appeared in appropriate position. General surgery was consulted for acute cholecystitis, started on Zosyn. On 05/13, patient underwent robotic-assisted laparoscopic cholecystectomy. Patient tolerated the operation well with no complications. Zo syn was d/c on day 3 per surgery team recommendations, surgery deemed patient stable from their perspective. Patient was transitioned from IV Dilaudid to her home morphine regimen, with prn oxycodonefor breakthrough pain. ?? On day of discharge, patient was tolerating her diet well, voiding well, and had a bowel movement the day prior. Her pain was manageable. She was hemodynamically stable and otherwise found to be appropriate for discharge. She was instructed that she can take her home morphine TID rather than BID ifneeded for the next 3 days for further pain management. No other alterations to her medication regim en, no new medications added. ? Acute cholecystitis (K81.0) Abdominal pain (R10.9): Chronic alcoholic pancreatitis (K86.0): History of alcohol use (Z87.898): ? Recommendations: - Low fat diet - Follow up in ACS/Trauma Clinic in 1-2 weeks - Can take home morphine dose TID rather than BID for next 3 days if needed for abdominal pain s/p cholecystectomy - Continue home Lyrica ?? 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 ?? Transaminases (74.01) ??- Continue to monitor ??- Down trending after cholecystectomy ? Chronic/Resolved Conditions: Vomiting (R11.10): Resolved Splenic vein thrombosis (I82.890): As per patient not on Eliquis anymore. PVT (portal vein thrombosis) (I81): As per patient not on Eliquis anymore. Asthma (J45.909): Nebs as needed. Hypothyroidism (E03.9): Previously documented. Not on meds. Anemia (D64.9): Currently stable Anxiety: Hydroxyzine prn. Patient reports she takes Zyprexa for anxiety as well, denies other psychiatric history. Insomnia: Remeron GERD: PPI ?? Objective Vital Signs?? Temperature: 97.2 DegF (05/15/24 10:12:00) Temperature Route: Oral (05/15/24 10:12:00) Pulse Rate: 66 bpm (05/15/24 10:12:00) Respiratory Rate: 18 br/min (05/15/24 10:12:00) Systolic Blood Pressure: 103 mm Hg (05/15/24 10:12:00) Diastolic Blood Pressure: 63 mm Hg (05/15/24 10:12:00) Blood pressure sites: Arm, left (05/15/24 10:12:00) Mean Arterial Pressure: 76 mm Hg (05/15/24 10:12:00) Pulse Pressure: 40 mm Hg (05/15/24 10:12:00) Oxygen Saturation: 100 % (05/15/24 10:12:00) Mode of Delivery (Oxygen): Room air (05/15/24 10:12:00) Early Warning Score: 3 (05/15/24 06:55:59) ? . Physical Exam Constitutional: Alert, in no distress. Mental Status: Oriented to person, place and time. Head: Normocephalic. Eyes: Extraocular muscles intact. Ear, Nose and Throat: Oropharynx clear, mucous membranes moist. Trachea midline. Neck: Supple, Full range of motion. Respiratory: CTAB Cardiovascular: RRR. Normal S1??+ S2, no murmurs, rubs, or gallops. Gastrointestinal: Abdomen soft, mildly distended. Mild Diffuse tenderness to palpation. No rebound tenderness, no guarding, no rigidity. Neurologic: Moves all extremities spontaneously. Sensation intact bilaterally. Skin: No rashes or lesions. Musculoskeletal: Normal range of motion. Surgical Procedures Robotic XI Cholecystectomy Laparoscopic 05/13/2024 16:11 Consultants GI: Dr. Kristyn Irving + Dr. Moiz Garcia General Surgery: Dr. John Colon Patient Education Titles [employer] Patient Education - Discharge Instructions for Laparoscopic Gallbladder Removal Surgery (Cholecystectomy)?? [employer] Patient Education - Cholecystectomy?? [employer] Patient Education - Cholecystitis (Presumed)?? [employer] Patient Education - Discharge Instructions for Laparoscopic Gallbladder Removal Surgery (Cholecystectomy)?? Follow-Up Appointments Added Follow Up ?Time Frame ?Comments Maikol REN, Ibeth?1 to 2 weeks Follow up in [facility] in 1-2 weeks Patient Instructions You were admitted for abdominal pain, and were found to have inflammation of your gallbladder. Yourgallbladder was removed by the surgery team, and the procedure went well without any complications.Please follow up with your surgeon in 1-2 weeks after discharge. In the mean-time, please continue your low fat diet.? For the next 3 days, you can take your morphine dose (30mg) three times a day instead of twice for pain control. After that, please resume your normal home regimen of 30mg every 12 hours. No other changes to your medications. No new medications started.? If you experience a return in severity of your abdominal pain, with fevers, chills, nausea, vomiting, please come back to the ED.?? Post Discharge Care Diet: ??Low Fat 50 Gram Non Cardiac Diet ?? Activity: ??As tolerated ?? Code Status: ??Full ?? Condition: ??Stable ?? Results Discharge Labs BACTERIOLOGY Urine Culture Results Final report (Abnormal)?? 05/11/2024 22:00 Urine Culture Specimen Source URINE ()?? 05/11/2024 22:00 Urine Culture Isolate 1 Klebsiella pneumoniae (Abnormal)?? 05/11/2024 22:00 Urine Cult Antimicrobial Susceptibility Comment ()?? 05/11/2024 22:00 ?? BLOOD COUNT & DIFF WBC 4.5 k/mm3 ()?? 05/15/2024 05:10 RBC 3.55 m/mm3 (Low)?? 05/15/2024 05:10 Hgb 9.1 Gm/dL (Low)?? 05/15/2024 05:10 Hct 29.3 % (Low)?? 05/15/2024 05:10 MCV 82.5 femtoliters ()?? 05/15/2024 05:10 MCH 25.6 pg (Low)?? 05/15/2024 05:10 MCHC 31.1 Gm/dL (Low)?? 05/15/2024 05:10 Platelet Count 181 k/mm3 ()?? 05/15/2024 05:10 RDW-SD 45.6 femtoliters ()?? 05/15/2024 05:10 MPV 10.8 femtoliters ()?? 05/15/2024 05:10 Nucleated RBC (Automated) 0.0 #/100 WBC'S ()?? 05/15/2024 05:10 Abs. NRBC 0.0 k/mm3 ()?? 05/15/2024 05:10 Abs. Neut 11.3 k/mm3 (High)?? 05/11/2024 22:04 Abs. Lymph 1.6 k/mm3 ()?? 05/11/2024 22:04 Abs. [place] 0.6 k/mm3 ()?? 05/11/2024 22:04 Abs. Eo 0.0 k/mm3 ()?? 05/11/2024 22:04 Abs. Baso 0.1 k/mm3 ()?? 05/11/2024 22:04 Neut % 82.7 % (High)?? 05/11/2024 22:04 Lymph % 11.7 % (Low)?? 05/11/2024 22:04 [place] % 4.5 % ()?? 05/11/2024 22:04 Eos % 0.2 % ()?? 05/11/2024 22:04 Baso % 0.4 % ()?? 05/11/2024 22:04 Imm Gran 0.5 % ()?? 05/11/2024 22:04 Abs. Imm Gran 0.1 k/mm3 ()?? 05/11/2024 22:04 ?? CHEM GENERAL Sodium 138 mmol/L ()?? 05/15/2024 05:10 Potassium 3.6 mmol/L ()?? 05/15/2024 05:10 Chloride 106 mmol/L ()?? 05/15/2024 05:10 Bicarbonate Level 23 mmol/L ()?? 05/15/2024 05:10 Anion Gap 9 ()?? 05/15/2024 05:10 Glucose Level 150 mg/dL (High)?? 05/15/2024 05:10 Glucose, POC 114 mg/dL (High)?? 05/12/2024 18:03 BUN 6 mg/dL ()?? 05/15/2024 05:10 Creatinine-Blood 0.53 mg/dL ()?? 05/15/2024 05:10 Estimated GFR Creatinine 129 ML/MIN/1.73 M2 ()?? 05/15/2024 05:10 Calcium 8.5 mg/dL (Low)?? 05/15/2024 05:10 Magnesium 1.8 mg/dL ()?? 05/11/2024 22:04 Protein, Total 5.9 Gm/dL (Low)?? 05/15/2024 05:10 Albumin 3.6 Gm/dL ()?? 05/15/2024 05:10 AG Ratio 1.6 ()?? 05/15/2024 05:10 Alkaline Phosphatase 143 units/L (High)?? 05/15/2024 05:10 Lipase 8 units/L (Low)?? 05/11/2024 22:04 AST (SGOT) 56 units/L (High)?? 05/15/2024 05:10 ALT (SGPT) 88 units/L (High)?? 05/15/2024 05:10 Bilirubin, Total 0.3 mg/dL ()?? 05/15/2024 05:10 Bilirubin, Direct 0.2 mg/dL ()?? 05/14/2024 06:23 Bilirubin, Indirect 0.3 mg/dL ()?? 05/14/2024 06:23 Lactate 1.6 mmol/L ()?? 05/11/2024 22:04 ? ENDOCRINE/TUMOR MARKER Blood <1 mIU/mL ()?? 05/11/2024 22:04 ? HEME OTHER Hold Lavender Top SPECIMEN DISCARDED AFTER 24 HOURS. ()?? 05/14/2024 06:23 Hold Blue Top SPECIMEN DISCARDED AFTER 4 HOURS. ()?? 05/11/2024 22:04 ?? TOXICOLOGY/TDM Ethanol, Serum or Plasma NONE DETECTED mg/dL ()?? 05/11/2024 22:04 ? UA/URINALYSIS Appear/Color, Urine YELLOW ()?? 05/11/2024 22:00 Specific [place], Urine 1.032 (High)?? 05/11/2024 22:00 pH, Urine 6.0 ()?? 05/11/2024 22:00 Albumin, Urine 1+ (Abnormal)?? 05/11/2024 22:00 Glucose, Urine NEGATIVE ()?? 05/11/2024 22:00 Ketones, Urine 1+ (Abnormal)?? 05/11/2024 22:00 Bilirubin, Urine NEGATIVE ()?? 05/11/2024 22:00 Hemoglobin, Urine NEGATIVE ()?? 05/11/2024 22:00 Nitrite, Urine POSITIVE (Abnormal)?? 05/11/2024 22:00 Leukocyte, Urine NEGATIVE ()?? 05/11/2024 22:00 Urobilinogen NORMAL mg/dL ()?? 05/11/2024 22:00 WBC's, Urine 4 /HPF ()?? 05/11/2024 22:00 RBC's, Urine 2 /HPF ()?? 05/11/2024 22:00 Bacteria MODERATE HPF (Abnormal)?? 05/11/2024 22:00 Squamous Epith 2 /HPF ()?? 05/11/2024 22:00 Mucus SLIGHT /LPF ()?? 05/11/2024 22:00 Hold Urine Culture Testing available 48 hours from time of collection. ()?? 05/11/2024 22:00 Hold Urine Testing Available 24 hours from Time of Collection ()?? 05/11/2024 22:00 ?? URINE OTHER Est Creatinine Clearance 135.20 mL/min ()?? 05/15/2024 06:08 ? Case and plan discussed with attending physician, Dr. Saunders ?? Tito Alvarado D.O. PGY-1 Department of Psychiatry [facility] [employer] Pager [phone] * Winsome Saunders MD: PERFORM Event Display: Discharge/Transfer Note Hospital Authored Date: Attending Attestation:??I have seen and examined this patient on date of service. ??I have discussed the case and its management with the resident and agree with the findings and plan as documented in the resident???s discharge note. * Mary Fernandes RN: PERFORM Event Display: Patient Education/Instruction Authored Date: Inpatient Adult Discharge Instructions. [address] [address] Name: CORRINE AGUILAR : 1995?? Visit: 05/12/2024 00:14?? Current Date: 05/15/2024 12:40 ?? Account: [id number]?? Inpatient Adult Discharge Instructions We would like [...] and their families. Surveys are administered by [employer] ?? If further treatment with your primary care physician or another doctor is recommended, it is important for you to keep the appointment. Call your primary care physician or return to the Emergency Department immediately if your condition worsens, fails to improve, or new symptoms develop. If you need to find a doctor, you can call [facility] [employer] for a referral at [phone] or toll free at [phone] or log in to [email or web address].. ?? [facility], in keeping with [facility] guidance, no longer requires face masks [...] a health care rafa of your choosing. [employer] is a website that allows you to securely view your medical information including your hospital discharge summary, office visit summaries, medications and follow-up visits. You can also request appointments, renew medications, and request access to your medical information using a health care rafa of your choosing, or just ask a question. You can enroll at [email or web address] or register during your next office visit. You have been discharged from [facility], Patient Care Unit: S15??. If you have any questions regarding these instructions, including results of studies pending, afteryou leave, please call us and we will be happy to assist you 25/12. [facility] Your Care Team Attending Physician Winsome Saunders MD?? Consulting Providers Winsome Saunders MD?? Discharging Providers Tito Alvarado DO Reason for Your Visit Pancreatitis since september, started at 1pm, morphine not working at home, LUQ pain, N/V.?? Your Diagnosis Abdominal pain Abdominal pain Acute cholecystitis Anemia Asthma Chronic alcoholic pancreatitis History of alcohol use Hypothyroidism Migration of pancreatic stent PVT (portal vein thrombosis) Splenic vein thrombosis Transaminitis Vomiting Tests Performed Below is a partial list of the tests performed during your hospitalization. You may have had other tests and procedures not included in this list. Please discuss all test results with your provider. Basic Metabolic Panel CBC CBC w/ Differential Comprehensive Metabolic Panel ETHANOL GLUCOSE POC Hold Blue Top Tube HOLD LAVENDER TUBE HOLD URINE, HEMATOLOGY Lactic Acid Level LFT's LIPASE MAGNESIUM BLOOD QUANTITATIVE Urinalysis w/hold for Urine Culture Urine Culture Result Urine Culture, Routine CT Abd/Pelvis W/ IV Contrast Only Add On Lab Order?? Basic Metabolic Panel?? Beta HCG Serum (Females Only) ( BLOOD QUANTITATIVE)?? CBC?? CBC w/ Differential?? CT Abd/Pelvis W/ IV Contrast Only?? Comprehensive Metabolic Panel?? Ethanol Level (ETHANOL)?? Glucose POC?? Hepatic Function Panel (LFT's)?? Hold Blue Top Tube?? Hold Lavender Top Tube (HOLD LAVENDER TUBE)?? Hold Urine (HOLD URINE, HEMATOLOGY)?? Lactic Acid Level?? Lipase?? Magnesium Level (MAGNESIUM)?? Pathology Tissue Request ()?? Urinalysis w/hold for Urine Culture?? Urine Culture (Urine Culture, Routine)?? Urine Culture Result?? Primary Care Provider [phone]?? Advance Directive Health Care Proxy on File Yes - Health Care Proxy Discharge Vitals Temperature: 97.2 DegF Height: 162 cm Pulse Rate: 66 bpm Weight: 56.8 kg Respiratory Rate: 16 br/min Body Mass Index: 22.1 kg/m2 Systolic Blood Pressure: 103 mm Hg Body surface area: 1.62 Diastolic Blood Pressure: 63 mm Hg ?? Oxygen Saturation: 100 % ?? Studies Pending All studies ordered during this hospital stay have been completed unless listed below. Please discuss all pending results with your provider listed above in these instructions. ?? Add On Lab Order?? Pathology Tissue Request ()?? What to do next Instructions From Your Doctor You were admitted for abdominal pain, and were found to have inflammation of your gallbladder. Yourgallbladder was removed by the surgery team, and the procedure went well without any complications.Please follow up with your surgeon in 1-2 weeks after discharge. In the mean-time, please continue your low fat diet.? For the next 3 days, you can take your morphine dose (30mg) three times a day instead of twice for pain control. After that, please resume your normal home regimen of 30mg every 12 hours. No other changes to your medications. No new medications started.? If you experience a return in severity of your abdominal pain, with fevers, chills, nausea, vomiting, please come back to the ED.? Orders??:Low Fat 50 Gram Non Cardiac Diet :As tolerated Status:Full :Stable?? , ??05/15/24 12:38:00 EST?? Scheduled Follow-Up Appointments Valdemar Dec. 20, 2024 10:40 AM EST ?? With: John Colon DO Where: [facility] [address] [place] [address]- Status: Pending Sunday 7:30 AM EST ?? Where: [facility] Status: Pending Sunday 10:45 AM EST ?? With: Kevin Scherer DO Where: [facility] [address] [place] [address]- Status: Pending You Need to Schedule the Following Appointments Follow Up with??Ibeth Lassiter MD When:??Within 1 to 2 weeks Discharge Medications CORRINE AGUILAR :1995 Visit Date:05/12/2024 Medications: Please continue your medications until treatment is completed or stopped by your provider. Medications not listed below should be discontinued. Discuss any questions related to medications with your provider. What How Much When Instructions Next Dose Unchanged Docusate-Senna (docusate- senna 50 mg-187 mg oral tablet) TAKE 2 TABLETS BY MOUTH ONCE DAILY ?? 05/16/24 Unchanged HydrOXYzine (hydrOXYzine pamoate 50 mg oral capsule) TAKE 1 CAPSULE BY MOUTH EVERY 6 HOURS NEEDED FOR ANXIETY ?? as needed per instruction Unchanged Mirtazapine (mirtazapine 7.5 mg oral tablet) TAKE ONE TABLET AT BEDTIME ?? 05/15/24 bedtime Unchanged Morphine (morphine 15 mg oral tablet, immediate release) 2 tab(s) Oral Every 12 hours ?? 05/16/24 midnight Unchanged nalOXONE (naloxone 4 mg/ 0.1 mL nasal spray) ADMINISTER 1 SPRAY INTO AFFECTED NOSTRILS IF NEEDED FOR OPIOID REVERSAL. MAY REPEAT EVERY 2-3 MINUTES IF NEEDED. ?? as needed per instruction Unchanged Olanzapine (olanzapine 20 mg oral tablet, disintegrating) DISSOLVE 1 TABLET ON THE TONGUE AT BEDTIME ?? 05/15/24 bedtime Unchanged Pancrelipase (Creon 36,000 units oral delayed release capsule) TAKE 1 CAPSULE BY MOUTH THREE TIMES DAILY TAKE WITH MEAL AND SNACK ?? 05/15/24 with major meals Unchanged Pantoprazole (pantoprazole 40 mg oral delayed release tablet) 1 tab(s) Oral Daily 05/16/24 Unchanged Polyethylene Glycol 3350 (polyethylene glycol 3350 oral powder for reconstitution) MIX AND TAKE 17GM BY MOUTH ONCE DAILY ?? 05/16/24 Unchanged Pregabalin (Lyrica 100 mg oral capsule) 1 capsule Oral Twice a day 05/15/24 9 pm Unchanged Tramadol (traMADol 50 mg oral tablet) 1 tab(s) Oral Every 6 hours as needed for for pain as needed per instruciton Prescription Given During Visit No new medications prescribed at time of discharge.?? Laboratory Results Below is a partial list of the most recent Laboratory test results done prior to this discharge. You may have had other tests and procedures not included in this list. Please discuss all test resultswith your provider. Est Creatinine Clearance - 135.20 mL/min (05/15/2024) Basic Metabolic Panel (05/13/2024) ???Sodium - 137 mmol/L???Potassium - 4.1 mmol/L???Chloride - 105 mmol/L???Bicarbonate Level - 22 mmol/L???Anion Gap - 10???Glucose Level - 101 mg/dL???BUN - 4 mg/dL???Creatinine-Blood - 0.51 mg/dL???Estimated GFR Creatinine - 130 ML/MIN/1.73 M2???Calcium - 8.7 mg/dL CBC (05/15/2024) ???WBC - 4.5 k/mm3???RBC - 3.55 m/mm3???Hgb - 9.1 Gm/dL???Hct - 29.3 %???MCV - 82.5 femtoliters???MCH - 25.6 pg???MCHC - 31.1 Gm/dL???Platelet Count - 181 k/mm3???RDW-SD - 45.6 femtoliters???MPV - 10.8 femtoliters???Nucleated RBC (Automated) - 0.0 #/100 WBC'S???Abs. NRBC - 0.0 k/mm3 CBC w/ Differential (05/11/2024) ???WBC - 13.7 k/mm3???RBC - 4.69 m/mm3???Hgb - 12.1 Gm/dL???Hct - 38.0 %???MCV - 81.0 femtoliters???MCH - 25.8 pg???MCHC - 31.8 Gm/dL???Platelet Count - 258 k/mm3???RDW-SD - 43.5 femtoliters???MPV - 10.8 femtoliters???Nucleated RBC (Automated) - 0.0 #/100 WBC'S???Abs. NRBC - 0.0 k/mm3???Abs. Neut -11.3 k/mm3???Abs. Lymph - 1.6 k/mm3???Abs. [place] - 0.6 k/mm3???Abs. Eo - 0.0 k/mm3???Abs. Baso - 0.1k/mm3???Neut % - 82.7 %???Lymph % - 11.7 %???[place] % - 4.5 %???Eos % - 0.2 %???Baso % - 0.4 %???Imm Gran - 0.5 %???Abs. Imm Gran - 0.1 k/mm3 Comprehensive Metabolic Panel (05/15/2024) ???Sodium - 138 mmol/L???Potassium - 3.6 mmol/L???Chloride - 106 mmol/L???Bicarbonate Level - 23 mmol/L???Anion Gap - 9???Glucose Level - 150 mg/dL???BUN - 6 mg/dL???Creatinine-Blood - 0.53 mg/dL???Estimated GFR Creatinine - 129 ML/MIN/1.73 M2???Calcium - 8.5 mg/dL???Protein, Total - 5.9 Gm/dL???Alb umin - 3.6 Gm/dL???AG Ratio - 1.6???Alkaline Phosphatase - 143 units/L???AST (SGOT) - 56 units/L???ALT (SGPT) - 88 units/L???Bilirubin, Total - 0.3 mg/dL ETHANOL (05/11/2024) ???Ethanol, Serum or Plasma - NONE DETECTED GLUCOSE POC (05/12/2024) ???Glucose, POC - 114 mg/dL Hold Blue Top Tube (05/11/2024) ???Hold Blue Top - SPECIMEN DISCARDED AFTER 4 HOURS. HOLD LAVENDER TUBE (05/14/2024) ???Hold Lavender Top - SPECIMEN DISCARDED AFTER 24 HOURS. HOLD URINE, HEMATOLOGY (05/11/2024) ???Hold Urine - Testing Available 24 hours from Time of Collection Lactic Acid Level (05/11/2024) ???Lactate - 1.6 mmol/L LFT's (05/14/2024) ???Protein, Total - 5.6 Gm/dL???Albumin - 3.5 Gm/dL???Alkaline Phosphatase - 146 units/L???AST (SGOT) - 83 units/L???ALT (SGPT) - 108 units/L???Bilirubin, Total - 0.5 mg/dL???Bilirubin, Direct - 0.2 mg/dL???Bilirubin, Indirect - 0.3 mg/dL LIPASE (05/11/2024) ???Lipase - 8 units/L MAGNESIUM (05/11/2024) ???Magnesium - 1.8 mg/dL BLOOD QUANTITATIVE (05/11/2024) ? ?Blood - <1 mIU/mL Urinalysis w/hold for Urine Culture (05/11/2024) ???Appear/Color, Urine - YELLOW???Specific [place], Urine - 1.032???pH, Urine - 6.0???Albumin, Urine - 1+???Glucose, Urine - NEGATIVE???Ketones, Urine - 1+???Bilirubin, Urine - NEGATIVE???Hemoglobin,Urine - NEGATIVE???Nitrite, Urine - POSITIVE???Leukocyte, Urine - NEGATIVE???Urobilinogen - NORMAL???WBC's, Urine - 4 /HPF???RBC's, Urine - 2 /HPF???Bacteria - MODERATE???Squamous Epith - 2 /HPF???Mucus - SLIGHT???Hold Urine Culture - Testing available 48 hours from time of collection. Urine Culture Result (05/11/2024) ???Urine Culture Isolate 1 - Klebsiella pneumoniae???Urine Cult Antimicrobial Susceptibility - Comment Urine Culture, Routine (05/11/2024) ???Urine Culture Results - Final report???Urine Culture Specimen Source - URINE You will be contacted within 72 hours with your results. Allergies (NKA means No Known Allergies) NKA Problems Active Problems??(1) Hypokalemia?? Education Materials Below is the list of Educational Leaflet Providered with your Discharge Instructions. [employer] Patient Education - Discharge Instructions for Laparoscopic Gallbladder Removal Surgery (Cholecystectomy)?? [employer] Patient Education - Cholecystectomy?? [employer] Patient Education - Cholecystitis (Presumed)?? Web[employer] Patient Education - Discharge Instructions for Laparoscopic Gallbladder Removal Surgery (Cholecystectomy)?? Valuables and Belongings I fully understand and agree that [facility] accepts no responsibility for all my personal [...] to send valuables and belongings home. ?? Review of Valuable and Belonging List: With patient Disposition of Belongings: Valuables Locked Date for Pt to Sign Valuables/Belongings: 05/15/24 10:12:00 ?? Other Discharge Information ? Case Management Discharge Plan?? Discharge Plan?? Discharge Level of Care at Discharge: Home/Intermediate/Foster Care ?? Pulmonary Rehab Status?? Pulmonary Rehab Discharge Status?? Respiratory Rate: 16 br/min ? Common Emergency Awareness Tips IS [...] are strongly encouraged to quit. Please call [facility] [employer] Link at [phone] or [phone] ([phone]) or log in to [email or web address] for referrals to smoking cessation programs. ?? 844 Suicide & Crisis Lifeline is available 25/12 if you or someone you know needs to find a reason to keep living. By calling 424 you'll be connected to a skilled, trained counselor at a crisis center in your area. INPATIENT DISCHARGE INSTRUCTIONS SIGNATURE PAGE CORRINE AGUILAR Location:[facility] Registration Date and Time:05/12/2024 00:14 EST Attending Physician: Chip REN, [facility], I CORRINE AGUILAR, have received the above patient education materials/instructions and have verbalized understanding. If ambulance or transport services are being used I further acknowledge being given a choice of service. ?? If you need to contact me, please call me at this number: . Patient/Department Head [employer] Name: Patient/Department Head [employer] Signature: Relationship to Patient: Witness Name/Signature: Date: * Tito Alvarado DO: PERFORM Event Display: Patient Education Leaflets Authored Date: Discharge Instructions for Laparoscopic Gallbladder Removal Surgery (Cholecystectomy) ?? [id number] Discharge Instructions for Laparoscopic Gallbladder Removal Surgery (Cholecystectomy) You had surgery to remove your gallbladder. This is called a cholecystectomy. You had the surgery done with laparoscopy. This means it was done with several small incisions. People who have the surgery done this way often recover more quickly. They may have less pain than with open gallbladder surgery.?? If your surgeon used a surgical robot to do the procedure, several small incisions were made to remove your gallbladder. The recovery for robotic surgery is generally the same as for a laparoscopy. You can live a full and healthy life without your gallbladder. This includes eating the foods and doing the things you enjoyed before. Below are guidelines for home care after surgery. Home care To care for yourself at home:? Get plenty of rest. Don???t worry if you feel tired for the first couple of weeks after your surgery. Fatigue is common. Nap when you feel tired.? Wash the skin around your cut (incision) daily with mild soap and water. It's??OK to shower the day after your surgery unless your healthcare provider says not to. ??? Eat your normal diet. But don't eat rich, greasy, or spicy food for a few days. Many surgeons advise a low-fat diet for the first month after surgery. Don???t eat fried food during this time. ??? You can walk around the house, do office work, climb stairs, or ride in a car if you feel able to do so. ??? Ask someone to drive you to your appointments for the next 3 days[address]???[address] until you have stopped taking pain medicine. Make sure you can step on the brake pedal with no delay. ??? Eat more fiber and use a stool softener if you are constipated. Pain medicine can cause constipation. Talk with your provider if you need more help. ??? Don???t sit in a bathtub, swimming pool, or hot tub until your healthcare provider says it???s safe. Wait until the incision is closed. Wait until any surgical tubes (drains) are removed. ?? Follow-up care Make a follow-up appointment with your surgeon as advised. Call your healthcare provider if these symptoms don???t go away within 1 week after your surgery: ??? Extreme tiredness (fatigue) ??? Pain around the incision ??? Diarrhea or constipation ??? Loss of appetite ?? When to call your healthcare provider Call your healthcare provider right away if you have any of these: ??? Yellowing of your eyes or skin (jaundice) ??? Chills ??? Fever of 100.4??F (38??C) or higher, or as directed by your provider? Redness or swelling of the incision ??? Fluid leaking or a bad smell from the incision ??? Incision pain that gets worse ??? Dark or rust-colored urine ??? Stool that is light in color instead of brown ??? Increasing belly pain ??? Rectal bleeding ??? Trouble breathing or shortness of breath ???Leg swelling ?? Last Reviewed Date: 2024 ?? [id number] [employer]. All rights reserved. This information is not intended as a substitute for professional medical care. Always follow your healthcare professional's instructions. ?? * Tito Alvarado DO: PERFORM Event Display: Patient Education Leaflets Authored Date: [id number] Cholecystectomy ?? [id number] Cholecystectomy You???ve had painful attacks caused by gallstones. To treat the problem, your healthcare provider wants to remove your gallbladder. This surgery is called a cholecystectomy. Taking out the gallbladder can ease pain. It will also help stop future attacks. You can live a healthy life without your gallbladder. You may also be able to go back to eating foods you liked before your gallbladder problemsstarted. Before your surgery To get ready: ??? Tell your provider what medicines you take. Include both prescription and zwvd-pcl-iyomard medicines. Also include vitamins, herbs, and supplements. Tell them if you take prescription blood thinners. This includes warfarin, clopidogrel, and aspirin. ??? Have any tests your provider asks for, such as blood work or imaging. ??? Follow all directions you're given for not eating or drinking before your surgery. You??may need to take some medicine with sips of water. Talk with yourprovider. ??? You'll be asked to sign an informed consent document. Signing the form means you understand the surgery. It means you agree to the procedure. Be sure all of your questions are answered before you sign the form. ?? The day of surgery When you arrive, you'll get ready for surgery: ??? An IV (intravenous) line will be put into a veinin your arm or hand. This gives you fluids and medicine. ??? An anesthesiologist will talk with youabout anesthesia. This is medicine used to prevent pain. You'll get general anesthesia. This puts you into a deep sleep during the procedure. ?? During surgery There are??2 methods for taking out the gallbladder. Your healthcare provider will choose which wayis??best for you: ??? Laparoscopic cholecystectomy. This is most common. During surgery, 2 to 4 small cuts (incisions) are made. A thin tube with a camera is used. This is called a laparoscope. The scope is put through 1 of the cuts. It sends images to a video screen. Tiny tools for surgery are put through other cuts. The gallbladder is taken out using the scope and these tools. ??? Open cholecystectomy. One larger incision is made. The surgeon sees and works through this cut. Open surgery is most often used when scarring or other factors make it a better choice for you. In some cases, your provider may need to change from laparoscopic to open surgery during the procedure. Clips close off the duct connecting the gallbladder to the bile duct. The gallbladder is then removed. ?? After surgery You'll be sent to a recovery room to wake up from the anesthesia. You'll likely go home the same day. In some cases, you'll need to stay overnight. If you had open cholecystectomy, you may need to stay in the hospital for a few days.??When you're released to go home, have a family member or friend ready to drive you. If you're told to take medicines after surgery, do so as told. If you're told to do breathing exercises, do them as advised. You'll be scheduled for a follow-up visit. ?? Risks and possible complications of gallbladder surgery All surgeries have risks. The risks of gallbladder surgery include: ??? Bleeding ??? Infection ??? Injury to the common bile duct or nearby organs ??? Blood clots in the legs ??? Bile leaks ??? Hernia at incision site ??? Pneumonia ?? When to call the healthcare provider Call your surgeon if you have these symptoms: ??? Fever of 100.4??F (38.0??C) or higher, or as advised by your provider ??? Redness, pain, or fluid leaking at the incision site ??? Yellow color to your skin or eyes (jaundice) ??? Severe pain or cramping in your belly ??? Vomiting that continues and unable to keep down fluids ??? No bowel movement within 3 days ??? Trouble peeing ??? Mild or short-term rectal bleeding ??? Leg swelling ?? Call 911 Call 911 if you have any of these: ??? Sudden shortness of breath or trouble breathing ??? A lot of bleeding, or bleeding for a long time ?? Last Reviewed Date: 2023 ?? [id number] [employer]. All rights reserved. This information is not intended as a substitute for professional medical care. Always follow your healthcare professional's instructions. ?? * Tito Alvarado DO: PERFORM Event Display: Patient Education Leaflets Authored Date: [id number] Cholecystitis (Presumed) ?? [id number] Cholecystitis (Presumed) Your belly (abdominal) pain may be due to an inflammation and possible infection in the gallbladder. This is called cholecystitis. The gallbladder is a small sac under the liver. It stores and releases bile. Bile is a fluid??made in the liver??that helps with digesting fat. Eating fatty food stimulates the gallbladder to contract and release the bile.??Gallstones??may form in this sac??(called cholelithiasis). Most people don't have symptoms. But if??the stone moves and blocks bile from leavingthe gallbladder, it can cause pain and even an infection.??The infection is called cholecystitis.??Bile sludge without a stone can also cause cholecystitis. To help be sure of the diagnosis, you may need to have an ultrasound, CT scan, or other special test. Several things increase the risk of developing gallstones: ??? Being a woman ??? Being obese ??? Being older ??? Losing or gaining weight quickly ??? Having ahigh-calorie diet ??? Being ??? Using hormone therapy ??? Having diabetes The most common symptoms are: ??? Belly pain, cramping, aching ??? Upset stomach (nausea), vomiting ??? Fever Many illnesses can cause these symptoms. Gallbladder pain is called biliary colic and often starts in the upper right side of your belly. The pain can also be in the top middle part of the belly. Sometimes it can spread to your right shoulder, back, and arm. It often starts suddenly, becomes more intense quickly, and then slowly decreases and goes away over a couple of hours. Older adults and people with diabetes may have trouble showing exactly where the pain is.??The pain may occur after meals, especially fatty meals. Home care ??? If you have short periods of gallbladder pain that go away, this is called biliary colic. You may be sent home to rest in bed and follow a clear liquid diet until the pain, upset stomach, and vomiting go away. Call your healthcare provider for a follow-up appointment. Biliary colic can keep coming back and can cause acute cholecystitis. ??? Antibiotics and other medicine may be prescribed. Take these exactly as directed. ??? You can take acetaminophen or ibuprofen for pain, unlessyou were given a different pain medicine to use. Talk with your provider before using these medicines if you: o Have chronic liver or kidney disease o Ever had a stomach ulcer or GI (gastrointestinal) bleeding o Are taking blood-thinner medicines ??? Fat in your diet makes the gallbladder contract and may cause more pain. Don't have any fat in your diet over the next 2 days. Follow a low-fat dietafter that. If you are overweight, a low-fat diet will help you lose weight. ?? Call 911 Call 911 if you have ongoing symptoms that don't get better, or if you get a fever with your symptoms. You may have acute cholecystitis. This is not a condition that should be treated at home. You should go to the emergency room. Often surgery to remove the gallbladder (cholecystectomy) is needed. ?? Follow-up care An infection in the gallbladder is a serious problem and must be watched carefully. Keep any appointments made to have further testing and to see a general surgeon. See your healthcare provider for another exam in the next 1 to 2 days, or as advised. Once cholecystitis has occurred, removing the gallbladder is often needed to prevent a recurrence. You can talk with your provider about this at your follow-up visit.??If you were hospitalized for cholecystitis, your gallbladder may be taken out during that same hospital stay. Gallstones that aren't causing infection or symptoms often don't need surgery. ?? When to get medical advice Call your healthcare provider if any of these occur: ??? Repeated vomiting ??? Belly swelling ??? Pain lasting more than 6 hours ??? Fever of 100.4??F (38??C) or higher, or as advised by your provider ??? Shaking chills ??? Weakness, dizziness, or fainting ??? Dark yellow pee (urine) or poop (stool) that's light ashraf or dewey-colored ??? Yellow color of the skin or eyes (jaundice) ??? Chest, arm, back, neck, or jaw pain ?? Last Reviewed Date: 2022 ?? [id number] [employer]. All rights reserved. This information is not intended as a substitute for professional medical care. Always follow your healthcare professional's instructions. ?? Patient Care team information Care Team Personnel Name: Charmaine Miguel RN Position: [facility] RN Member Role: Primary Care Nurse Name: Briseyda Melton RN Position: [facility] RN Member Role: Primary Care Nurse Name: Iam Noble RN Position: [facility] RN Member Role: Primary Care Nurse Name: Ena Obrien RN Position: [facility] RAFITA RN W/OE and Tasks Member Role: Primary Care Nurse Name: Tammie Zamudio RN Position: [facility] RN Member Role: Primary Care Nurse Name: Dai Pham RN Position: [facility] RN Member Role: Primary Care Nurse Name: Yumiko Ontiveros RN Position: [facility] RN Member Role: Primary Care Nurse Name: Vinicio Carr RN Position: [facility] RN Member Role: Primary Care Nurse Name: Earle Coyne RN Position: [facility] RN Member Role: Primary Care Nurse Name: Saritha Prado RN Position: [facility] RN Member Role: Primary Care Nurse Name: Micaela Abad RN Position: [facility] RN Member Role: Primary Care Nurse Name: Sofia LOPEZ, Sudha Position: [facility] RN Member Role: Primary Care Nurse Name: Mary Fernandes RN Position: [facility] RN Member Role: Primary Care Nurse Name: Marlon Michelle RN Position: [facility] RN Member Role: Primary Care Nurse Name: Noelle Gill RN Position: [facility] RN Member Role: Primary Care Nurse Name: Tiana Galicia RN Position: [facility] RN Member Role: Primary Care Nurse Name: Divya Aguilar RN Position: [facility] RN Member Role: Primary Care Nurse Name: Doreen Doe LPN Position: [facility] RN Member Role: Primary Care Nurse Name: Nelda Martin LPN Position: [facility] RN Member Role: Primary Care Nurse Name: Cory Parker RN Position: [facility] RN Member Role: Primary Care Nurse Care Team Related Persons Name: PETE ACOSTA Insurance Providers Guarantor name: [facility] Health Plan Information #: 1 Payer: [employer] Member Number: [id number] Policy Number: NA Group Number: NA Health Plan Information #: 2 Payer: [employer] Member Number: [id number] Policy Number: NA Group Number: NA
--- OUTSIDE RECORDS SUMMARY | 2024-06-06 16:37 | XMS_ITS ---
[facility] Organization [facility] Care Team Providers Care Documentation Writer Name Role Phone MADELYN ADAMES Unavailable Unavailable PARISA AMEZQUITA Unavailable Unavailable ERINTYANALILIA, CARLEE Unavailable Unavailable FELA RODRIGUEZ Unavailable Unavailabl e Unavailable Unavailable Unavailable VOLNEY, SHANNON LALITO Unavailable Unavailabl e VOLROS, SHANNON LALITO Unavailable Unavailabl e JAROCHO ABBAIS Unavailable Unavailable WHITINGJESUSIRASEMA Unavailable Unavailable JAROCHO ABBASI Unavailable Unavailable FELA RODRIGUEZ Unavailable Unavailabl e TAMASDAN, CHERRY Unavailable Unavailable YIN LOPES Unavailable Unavailable KETTYLE, CARLEE Unavailable Unavailable MIQUEL EPÑA Unavailable Unavailable MADELYN HERNANDEZ Unavailable Unavailable MADELYN HERNANDEZ Unavailable Unavailable Ibeth Lassiter MD Primary Care Provider Allergies Allergy Classification Reported Allergen(s) Allergy Type Date of Onset Reaction(s) Care Provider Facility Opioid Agonists (20 sources) codeine Allergy to drug 09-07-19 24 Anaphylaxis Hector Del Toro RN Work Phone: [facility] Work Phone: Penicillins (antibiotic) (12 sources) Penicillins Allergy to drug 09-07-19 24 Anaphylaxis [facility] Unclassified (2 sources) ALLERGIES NOT ON FILE PARISA AMEZQUITA [facility] Encounters Encounter Date Encounter Type Encounter Diagnosis Care Pro vider Facility Start: 09-12-2023 12:00-0400 Evaluation and management of inpatient [facility] Start: 09-11-2023 12:00-0400 Evaluation and management of inpatient [facility] Start: 09-08-2023 12:00-0400 Evaluation and management of inpatient MADELYN HERNANDEZ [facility] Start: 09-07-2023 22:18-0400 Emergency department patient visit Necrotizing Pancreatitis JAROCHO WHITING [facility] Start: 09-07-2023 22:180400 End: 09-15-2023 14:090400 Evaluation and management of inpatient Acute pancreatitis with uninfected necrosis, unspecified MADELYN Abbasi MD Work Phone: Irasema Whiting MD Work Phone: Fela Rodriguez MD Work Phone: Miquel Peña MD Work Phone: Shannon Mitchell MD Work Phone: Madelyn Adames DO Work Phone: [facility] Comment on above: Necrotizing pancreatitis (Primary Dx); Acute abdominal pain [facility] Medications Current Medications Medication Drug Class(es) Dates Sig (Normalized) Sig (Original) acetaminophen 325 MG Oral Tablet (1 source) Start: 09-10-2023 take 1 tablet by mouth every eight hours as needed acetaminophen (TYLENOL) tablet 975 mg apixaban 5 MG Oral Tablet (1 source) Factor Xa Inhibitor Start: 09-14-2023 End: 10-14-2023 take 1 tablet by mouth twice daily Take 1 tablet (5 mg total) by mouth 2 (two) times a day. bisacodyl 10 MG Rectal Suppository (1 source) Stimulant Laxative Start: 09-08-2023 take 10 mg rectal route every twenty-four hours as needed bisacodyl (DULCOLAX) suppository 10 mg calcium carbonate 500 MG Chewable Tablet (2 sources) Start: 09-08-2023 End: 10-15-2023 Chew 1 tablet (500 mg total) 4 (four) times a day as needed for indigestion or heartburn. docusate sodium 50 MG / sennosides, INTERMEDIATE 8.6 MG Oral Tablet (2 sources) Start: 09-14-2023 End: 10-14-2023 take 8.6-50 mg by mouth once daily as needed Take 2 tablets by mouth nightly as needed for constipation. Start: 09-08-2023 senna-docusate (SENNA-S) 8.6-50 MG tablet 2 tablet 0.8 ML enoxaparin sodium 100 MG/ML Prefilled Syringe (1 source) Low Molecular Weight Heparin Start: 09-09-2023 enoxaparin (LOVENOX) syringe 70 mg folic acid 1 MG Oral Tablet (2 sources) Start: 09-08-2023 End: 10-15-2023 take 1 tablet by mouth once daily Take 1 tablet (1 mg total) by mouth daily. lactulose 667 MG/ML Oral Solution (1 source) Osmotic Laxative Start: 09-08-2023 take 30 mL by mouth every four hours as needed lactulose (ENULOSE) 10 gm/15 mL solution 20 g methocarbamol 500 MG Oral Tablet (3 sources) Muscle Relaxant Start: 09-14-2023 End: 09-22-2023 take 2 tablets by mouth four times daily as needed for muscle spasms Take 2 tablets (1,000 mg total) by mouth 4 (four) times a day as needed for muscle spasms. Start: 09-13-2023 methocarbamol (ROBAXIN) tablet 1,000 mg Start: 09-10-2023 End: 09-13-2023 methocarbamol (ROBAXIN) tabl et 750 mg morphine sulfate 30 MG Oral Tablet (7 sources) Opioid Agonist Start: 09-14-2023 Take 0.5-1 tab lets (15-30 mg total) by mouth 4 times daily (every 6 hours) as needed for severe pain. Start: 09-12-2023 End: 09-19-2023 take 30 mg by mouth every four hours as needed morphine (ROXANOL) 10 mg/5 mL solution 30 mg Start: 09-11-2023 End: 09-12-2023 take 20 mg by mouth every four hours as needed morphine (ROXANOL) 10 mg/5 mL solution 20 mg Start: 09-10-2023 End: 09-11-2023 take 20 mg by mouth every four hours morphine (ROXANOL) 10 mg/5 mL solution 20 mg Start: 09-10-2023 End: 09-14-2023 take 3 mg intravenously every four hours as needed morphine preservative free 10 mg/mL injection 3 mg multivitamin with minerals Tab tablet (1 source) Start: 09-15-2023 End: 10-15-2023 take 1 tablet by mouth once daily Take 1 tablet by mouth daily. multivitamin with minerals tablet 1 tablet (1 source) Start: 09-08-2023 multivitamin with minerals tablet 1 tablet 1 ML naloxone hydrochloride 0.4 MG/ML Injection (1 source) Opioid Antagonist Start: 09-08-2023 naloxone (NARCAN) 0.4 mg/mL injection 0.4 mg polyethylene glycol [id number] [id number] MG Powder for Oral Solution (3 sources) Osmotic Laxative Start: 09-10-2023 End: 10-14-2023 take 1 dose by mouth once daily as needed for constipation Take 1 packet (17 g total) by mouth daily as needed for constipation. pregabalin 100 MG Oral Capsule (4 sources) Start: 09-13-2023 End: 09-24-2023 take 1 capsule by mouth three times daily Take 1 capsule (100 mg total) by mouth 3 (three) times a day. Start: 09-10-2023 End: 09-13-2023 pregabalin (LYRICA) capsule 75 mg Start: 09-10-2023 End: 09-10-2023 pregabalin (LYRICA) capsule 50 mg thiamine 100 MG Oral Tablet (3 sources) Start: 09-15-2023 End: 10-15-2023 take 2 tablets by mouth once daily Take 2 tablets (200 mg total) by mouth daily. Start: 09-13-2023 thiamine monon itrate (VITAMIN B-1) tablet 200 mg Start: 09-08-2023 End: 09-12-2023 thiamine (VITAMIN B-1) injec tion 200 mg Completed/Discontinued Medications Medication Drug Class(es) Dates Sig (Normalized) Sig (Original) 50 ML argatroban 1 MG/ML Injection (1 source) Direct Thrombin Inhibitor, Anti-coagulant Start: 09-08-2023 End: 09-09-2023 argatroban IV infusion 50 mg in 50 mL NS (premix) 500 ML heparin sodium, porcine 50 UNT/ML Injection (1 source) Unfractionated Heparin, Anti-coagulant Start: 09-08-2023 End: 09-08-2023 heparin (porcine) IV infusion 25,000 units in 500 mL 0.45% NaCl (premix) 1 ML hydromorphone hydrochloride 1 MG/ML Cartridge (4 sources) Opioid Agonist Start: 09-09-2023 End: 09-09-2023 HYDROmorphone (DILAUDID) injection 0.2 mg Start: 09-09-2023 End: 09-10-2023 take 0.5 mg intravenously every four hours as needed HYDROmorphone (DILAUDID) injection 0.5 mg Start: 09-08-2023 End: 09-09-2023 take 0.2 mg intravenously every four hours as needed HYDROmorphone (DILAUDID) injection 0.2 mg iohexol (OMNIPAQUE) 350 mg/mL injection 80 mL (1 source) Start: 09-12-2023 End: 09-12-2023 iohexol (OMNIPAQUE) 350 mg/mL injection 80 mL 1 ML ketorolac tromethamine 30 MG/ML Cartridge (1 source) Nonsteroidal Anti-inflammatory Drug, Cyclooxygenase Inhibitor Start: 09-08-2023 End: 09-13-2023 take 15 mg intravenously every six hours as needed ketorolac (TORADOL) injection 15 mg Microencapsulated potassium chloride 20 MEQ Extended Release Oral Tablet (6 sources) Start: 09-13-2023 End: 09-13-2023 potassium chloride (KLOR-CON M20) CR tablet 40 mEq Start: 09-11-2023 End: 09-11-2023 potassium chloride (KLOR-CON M20) CR tablet 40 mEq Start: 09-09-2023 End: 09-09-2023 potassium chloride (KLOR-CON ) packet 40 mEq Start: 09-08-2023 End: 09-08-2023 potassium chloride (KLOR-CON ) packet 40 mEq Start: 09-08-2023 End: 09-08-2023 potassium chloride (KLOR-CON ) packet 20 mEq Start: 09-07-2023 End: 09-08-2023 potassium chloride IVPB 10 m Eq in 100 mL SW (premix) Payers Date Payer Normalized Payer Policy ID [facility] 100 [id number] [facility] Plan of Treatment Date Care Activity Detail Author Start: 02-02-2023 COVID-19 Vaccine (1 - 2023-24 season) COVID-19 Vaccine ( season) [facility] Start: 01-02-2023 Administration of influenza vaccine Influenza Vaccine [facility] Start: 2016 Microscopic observat ion [Identifier] in Cervix by Cyto stain Pap Smear (Ages 21-65) [facility] Start: 2014 DTaP/Tdap/Td Vaccine s (1 - Tdap) DTaP/Tdap/Td Vaccines (1 - Tdap) [facility] Start: 2014 Hepatitis B Vaccines (1 of 3 - 19+ 3-dose series) Hepatitis B Vaccines (1 of 3 - 19+ 3-dose series) [facility] Start: 2008 HIV Screening HIV Screening [facility] Start: 2001 Pneumococcal Vaccine : Pediatric (0-5 Years) and At-Risk Patients (6 to 64 Years) (1 of 2 - PCV) Pneumococcal Vaccine: Pediatric (0-5 Years) and At-Risk Patients (6 to 64 Years) (1 of 2 - PCV) [facility] Start: 1995 Hepatitis C screening Hepatiti s C Virus Screening [facility] ETHAN Archive for refe rence only CR ETHAN Archive for reference only CR Imaging Routine 09/07/2023 until discontinued, 1 completed [facility] Comment on above: 09/07/2023 until dis continued, 1 completed ETH[facility] Archive for refe rence only CT ETHAN Archive for reference only CT Imaging Routine 09/07/2023 until discontinued, 1 completed [facility] Work Phone: Comment on above: 09/07/2023 until dis continued, 1 completed ETHAN Archive for refe rence only CT ETHAN Archive for reference only CT Imaging Routine 09/08/2023 until discontinued, 1 completed [facility] Comment on above: 09/08/2023 until dis continued, 1 completed End: 09-07-2023 Nasal Cannula (Supplemental Oxygen) Starting Rate: 2 LPM; Maximum Rate: 4 LPM; Maintain O2 Sat >/= (%): 90 Nasal Cannula (Supplemental Oxygen) Starting Rate: 2 LPM; Maximum Rate: 4 LPM; Maintain O2 Sat >/= (%): 90 Respiratory Care Routine Continuous until discontinued starting 09/07/2023 [facility] Comment on above: Continuous until dis continued starting 09/07/2023 Problems Active Problems Problem Classification Problem Date Last Recorded Documented Date Chronic Condition Indicator Provider Unclassified (13 sources) Necrotizing Pancreatitis 09-07-2023 PARISA AMEZQUITA Past or Other Problems Problem Classification Problem Date Last Recorded Documented Date Chronic Condition Indicator Provider Abdominal pain (5 sources) Unspecified abdominal pain; Translations: [Abdominal pain, unspecified site] 09-15-2023 Episodic MADELYN ADAMES Pancreatic disorders (not diabetes) (7 sources) Acute pancreatitis with uninfected necrosis, unspecified; Translations: [Acute pancreatitis] 09-15-2023 Episodic IRASEMA WHITING Phlebitis; thrombophlebitis and thromboembolism (2 sources) Acute thrombosis of splenic vein; Translations: [Acute embolism and thrombosis of other specified veins] 09-11-2023 Episodic Jarocho Abbasi MD Work Phone: Residual codes; unclassified (2 sources) Other acute pain 09-15-2023 Episodic MADELYN ADAMES Residual codes; unclassified (2 sources) Alcoholism; Translations: [Alcohol use, unspecified, uncomplicated] 09-11-2023 Episodic Shannon Mitchell MD Work Phone: Procedures Date Procedure Procedure Detail Performing Clinician Start: 09-15-2023 Basic metabolic 2000 panel - Serum or Plasma completed Madelyn Killian Gerald DO Work Phone: Start: 09-15-2023 C reactive protein [Mass/volume] in Serum or Plasma completed Madelyn Killian Gerald DO Work Phone: Start: 09-15-2023 Complete blood count without differential completed Madelyn Killian Adames DO Work Phone: Start: 09-15-2023 TYPE AND SCREEN completed Madelyn Maria D Adames DO Work Phone: Start: 09-14-2023 C reactive protein [Mass/volume] in Serum or Plasma completed Madelyn Adames DO Work Phone: Start: 09-14-2023 Comprehensive metabolic panel completed Madelyn Maria D Gerald DO Work Phone: Start: 09-13-2023 Basic metabolic panel calcium total completed Shannon Mitchell MD Work Phone: Start: 09-13-2023 C reactive protein [Mass/volume] in Serum or Plasma completed Shannon Mitchell MD Work Phone: Start: 09-12-2023 Ct abdomen w/o & w/contrast material completed Shannon Mithcell MD Work Phone: Start: 09-12-2023 Basic metabolic 2000 panel - Serum or Plasma completed Shannon Mitchell MD Work Phone: Start: 09-12-2023 Blood count complete auto&auto difrntl wbc completed Shannon Mitchell MD Work Phone: Start: 09-12-2023 C reactive protein [Mass/volume] in Serum or Plasma completed Shannon Mitchell MD Work Phone: Start: 09-11-2023 Glucose quantitative blood xcpt reagent strip completed Shannon Mitchell MD Work Phone: Start: 09-11-2023 Glucose quantitative blood xcpt reagent strip completed Shannon Mitchell MD Work Phone: Start: 09-11-2023 Glucose quantitative blood xcpt reagent strip completed Shannon Mitchell MD Work Phone: Start: 09-11-2023 Choriogonadotropin ( test) [Presence] in Urine completed Shannon Mitchell MD Work Phone: Start: 09-11-2023 Glucose quantitative blood xcpt reagent strip completed Shannon Mitchell MD Work Phone: Start: 09-11-2023 C reactive protein [Mass/volume] in Serum or Plasma completed Keeley Jacinto MD Work Phone: Start: 09-11-2023 Comprehensive metabolic panel completed Gaetano izaguirer MD Work Phone: Start: 09-11-2023 Magnesium [Mass/volume] in Serum or Plasma completed Gaetano Alberto MD Work Phone: Start: 09-11-2023 Phosphate [Mass/volume] in Serum or Plasma completed Gaetano Alberto MD Work Phone: Start: 09-11-2023 Glucose quantitative blood xcpt reagent strip completed Shannon Mitchell MD Work Phone: Start: 09-10-2023 Glucose quantitative blood xcpt reagent strip completed Shannon Mitchell MD Work Phone: Start: 09-10-2023 Glucose quantitative blood xcpt reagent strip completed Miquel Peña MD Work Phone: Start: 09-10-2023 Glucose quantitative blood xcpt reagent strip completed Fela Rodriguez MD Work Phone: Start: 09-10-2023 Erythrocyte sedimentation rate completed Luly Ferrer MD Work Phone: Start: 09-10-2023 Glucose quantitative blood xcpt reagent strip completed Fela Rodriguez MD Work Phone: Start: 09-10-2023 Glucose quantitative blood xcpt reagent strip completed Fela Rodriguez MD Work Phone: Start: 09-10-2023 End: 09-10-2023 Basic metabolic panel calcium total completed Alfredo Salcedo MD Work Phone: Start: 09-10-2023 C reactive protein [Mass/volume] in Serum or Plasma completed Fela Rodriguez MD Work Phone: Start: 09-10-2023 Lactate [Moles/volume] in Serum or Plasma completed Alfredo Salcedo MD Work Phone: Start: 09-10-2023 Lipase [Enzymatic activity/volume] in Serum or Plasma completed Fela Rodriguez MD Work Phone: Start: 09-10-2023 Magnesium [Mass/volume] in Serum or Plasma completed Alfredo Salcedo MD Work Phone: Start: 09-10-2023 Phosphate [Mass/volume] in Serum or Plasma completed Alfredo Salcedo MD Work Phone: Start: 09-10-2023 Glucose quantitative blood xcpt reagent strip completed Fela Rodriguez MD Work Phone: Start: 09-09-2023 Glucose quantitative blood xcpt reagent strip completed Fela Rodriguez MD Work Phone: Start: 09-09-2023 Glucose quantitative blood xcpt reagent strip completed Fela Rodriguez MD Work Phone: Start: 09-09-2023 Glucose quantitative blood xcpt reagent strip completed Fela Rodriguez MD Work Phone: Start: 09-09-2023 Glucose quantitative blood xcpt reagent strip completed Fela Rodriguez MD Work Phone: Start: 09-09-2023 End: 09-09-2023 Basic metabolic panel calcium total completed Gaetano Alberto MD Work Phone: Start: 09-09-2023 Magnesium [Mass/volume] in Serum or Plasma completed Gaetano Alberto MD Work Phone: Start: 09-09-2023 Phosphate [Mass/volume] in Serum or Plasma completed Gaetano Alberto MD Work Phone: Start: 09-08-2023 End: 09-09-2023 Glucose quantitative blood xcpt reagent strip completed Fela Rodriguez MD Work Phone: Start: 09-08-2023 End: 09-08-2023 Glucose quantitative blood xcpt reagent strip completed Fela Rodriguez MD Work Phone: Start: 09-08-2023 Dup-scan xtr veins complete bilateral study completed Gaetano Alberto MD Work Phone: Start: 09-08-2023 End: 09-08-2023 Glucose quantitative blood xcpt reagent strip completed Fela Rodriguez MD Work Phone: Start: 09-08-2023 Portable XR Chest Views completed Gaetano Alberto MD Work Phone: Start: 09-08-2023 Antibody identification platelet antibodies completed Gaetano Alberto MD Work Phone: Start: 09-08-2023 Glucose quantitative blood xcpt reagent strip completed Fela Rodriguez MD Work Phone: Start: 09-08-2023 Heparin assay completed Fela Rodriguez MD Work Phone: Start: 09-08-2023 Glucose quantitative blood xcpt reagent strip completed Fela Rodriguez MD Work Phone: Start: 09-08-2023 Bacteria identified in Blood by Culture completed Fela Rodriguez MD Work Phone: Start: 09-08-2023 Bacteria identified in Blood by Culture completed Fela Rodriguez MD Work Phone: Start: 09-08-2023 Comprehensive metabolic panel completed Fela Rodriguez MD Work Phone: Start: 09-08-2023 Magnesium [Mass/volume] in Serum or Plasma completed Fela Rodriguez MD Work Phone: Start: 09-08-2023 Phosphate [Mass/volume] in Serum or Plasma completed Fela Rodriguez MD Work Phone: Start: 09-08-2023 Triglyceride [Mass/volume] in Serum or Plasma completed Shawn Bajwa MD Work Phone: Start: 09-08-2023 ETHAN ARCHIVE FOR REFERENCE ONLY CR completed Estefanía Burgos MD Work Phone: Start: 09-08-2023 End: 09-08-2023 ETHAN ARCHIVE FOR REFERENCE ONLY CT completed Estefanía Burgos MD Work Phone: Start: 09-07-2023 12 lead ECG completed Jarocho Abbasi MD Work Phone: Start: 09-07-2023 Urnls dip stick/tablet rgnt auto w/o microscopy completed Jarocho Abbasi MD Work Phone: Start: 09-07-2023 (REPORT) POC, BLOOD GAS, VENOUS completed Irasema Whiting MD Work Phone: Start: 09-07-2023 Portable XR Chest Views completed Jarocho Abbasi MD Work Phone: Start: 09-07-2023 Amylase [Enzymatic activity/volume] in Serum or Plasma completed Jarocho Abbasi MD Work Phone: Start: 09-07-2023 End: 09-07-2023 Comprehensive metabolic panel completed Jarocho kraft MD Work Phone: Start: 09-07-2023 Lactate [Moles/volume] in Serum or Plasma completed Jarocho Abbasi MD Work Phone: Start: 09-07-2023 Lipase [Enzymatic activity/volume] in Serum or Plasma completed Jarocho Abbasi MD Work Phone: Start: 09-07-2023 Magnesium [Mass/volume] in Serum or Plasma completed Jarocho Abbasi MD Work Phone: Start: 09-07-2023 Natriuretic peptide B [Mass/volume] in Serum or Plasma completed Jarocho Abbasi MD Work Phone: Start: 09-07-2023 Procalcitonin [Mass/volume] in Serum or Plasma by Immunoassay completed Jarocho Abbasi MD Work Phone: Start: 09-07-2023 ETHAN ARCHIVE FOR REFERENCE ONLY CR completed Gaetano Alberto MD Work Phone: Start: 09-07-2023 ETHAN ARCHIVE FOR REFERENCE ONLY CT completed Gaetano Alberto MD Work Phone: Results Test Name Value Interpretation Reference Range Facility Date Time Result Note BASIC METABOLIC PANELon 09-02 Urea nitrogen/Creat inine [Mass ratio] Not calculated [facility] 09-14 08:18 -0400 BUN/Creatinine Ratio Not calculated 10.0 - 25.0 Ratio 09/15/2023 8:18 AM [facility] Calcium [Mass/Vol] 9.0 mg/dL 8.7 - 10.5 mg/dL [facility] 09-14 08:18 -0400 Calcium 9.0 8.7 - 10.5 mg/dL 09/15/2023 8:18 AM [facility] Chloride [Moles/Vol] 104 mmol/L 98 - 107 mmol/L [facility] 09-14 08:18 -0400 Chloride 104 98 - 107 mmol/L 09/15/2023 8:18 AM EDT [facility] CO2 [Moles/Vol] 25 mmol/L 20 - 31 mmol/L [facility] 09-14 08:18 0400 CO2 25 20 - 31 mmol/L 09/15/2023 8:18 AM [facility] Creatinine [Mass/Vol] 0.5 mg/dL Low 0.6 - 1.0 mg/dL [facility] 09-14 08:18 0400 Creatinine 0.5 (L) 0.6 - 1.0 mg/dL 09/15/2023 8:18 AM [facility] Glucose [Mass/Vol] 132 mg/dL High 74 - 106 mg/dL [facility] 09-14 08:18 0400 Glucose 132 (H) 74 - 106 mg/dL 09/15/2023 8:18 AM T [facility] Comment on above: Fasting: <100 mg/dL, Non-Fasting: <200 m g/dL (ADA 2005) Potassium [Moles/Vol] 3.9 mmol/L 3.4 - 4.5 mmol/L [facility] 09-14 08:18 0400 Potassium 3.9 3.4 - 4.5 mmol/L 09/15/2023 8:18 AM [facility] Sodium [Moles/Vol] 136 mmol/L 136 - 145 mmol/L [facility] 09-14 08:18 0400 Sodium 136 136 - 145 mmol/L 09/15/2023 8:18 AM [facility] Urea nitrogen [Mass/Vol] <5 >NINF mg/dL Low 9 - 23 mg/dL [facility] 09-14 08:18 0400 Blood Urea Nitrogen (BUN) <5 (L) 9 - 23 mg/dL 09/15/2023 8:18 AM [facility] GFR/1.73 sq M.predicted CKD-EPI (S/P/Bld) [Vol rate/Area] <PINF >90 59 - PINF [facility] 09-14 08:18 0400 eGFR >90 >59 09/15/2023 8:18 AM T [facility] Comment on above: CKD-EPI (2020) in mL/min/1.73 sq meters. Anion gap (Bld) [Moles/Vol] 7 5 - 15 [facility] 09-14 08:18 -0400 Anion Gap 7 5 - 15 09/15/2023 8:18 AM T [facility] C-Reactive Proteinon 024 CRP [Mass/Vol] 14.30 mg/dL High NINF - 1.00 mg/dL [facility] 09-14 08:18 -0400 C-Reactive Protein 14.30 (H) <1.00 mg/dL 09/15/2023 8:18 AM T [facility] COMPLETE BLOOD COUNT, WITHOU T DIFFERENTIALon 09-15-2023 RBC Auto (Bld) [#/Vol] 2.79 Low [facility] 09-14 07:26 -0400 Red Blood Cell Count 2.79 (L) 4.00 - 5.40 Mil/uL 09/15/2023 7:26 AM T [facility] Hematocrit Auto (Bld) [Volume fraction] 25.9 % Low 35.0 - 47.0 % [facility] 09-14 07:26 -0400 Hematocrit 25.9 (L) 35.0 - 47.0 % 09/15/2023 7:26 AM [facility] Hemoglobin (Bld) [Mass/Vol] 8.0 g/dL Low 11.7 - 15.7 g/dL [facility] 09-14 07:26 -0400 Hemoglobin 8.0 (L) 11.7 - 15.7 g/dL 09/15/2023 7:26 AM T [facility] MCH Auto (RBC) [Entitic mass] 28.7 pg 26.0 - 34.0 pg [facility] 09-14 07:26 -0400 MCH 28.7 26.0 - 34.0 pg 09/15/2023 7:26 AM EDT [facility] MCHC Auto (RBC) [Mass/Vol] 30.9 g/dL 30.0 - 36.0 g/dL [facility] 09-14 07:26 -0400 MCHC 30.9 30.0 - 36.0 g/dL 09/15/2023 7:26 AM T [facility] MCV Auto (RBC) [Entitic vol] 93 fL 80 - 100 fL [facility] 09-14 07:26 -0400 MCV 93 80 - 100 fL 09/15/2023 7:26 AM T [facility] Nucleated RBC/100 WBC Auto (Bld) [Ratio] 0.3 High [facility] 09-14 07:26 -0400 nRBC 0.3 (H) 0.0 - 0.1 /100 WBC 09/15/2023 7:26 AM T [facility] Platelet mean volume Auto (Bld) [Entitic vol] 11.4 fL 7.5 - 12.5 fL [facility] 09-14 07:26 -0400 MPV 11.4 7.5 - 12.5 fL 09/15/2023 7:26 AM T [facility] Platelets Auto (Bld) [#/Vol] 394 [facility] 09-14 07:26 -0400 Platelet Count 394 150 - 450 Thou/uL 09/15/2023 7:26 AM T [facility] Erythrocyte distribution width Auto (RBC) [Ratio] 18.1 % High 11.5 - 14.5 % [facility] 09-14 07:26 -0400 RDW 18.1 (H) 11.5 - 14.5 % 09/15/2023 7:26 AM T [facility] WBC Auto (Bld) [#/Vol] 10.1 [facility] 09-14 07:26 -0400 White Blood Cell Count 10.1 4.0 - 11.0 Thou/uL 09/15/2023 7:26 AM T [facility] Nucleated RBC Auto (Bld) [#/Vol] 0.03 High [facility] 09-14 07:26 -0400 nRBC, Absolute 0.03 (H) 0.00 - 0.02 Thou/uL 09/15/2023 7:26 AM EDT [facility] Emergency Department (DEEDS) variableson 09-15-2023 Interpretation and review of laboratory results Abnormal [facility] 09-14 08:18 -0400 No Panel Informationon 09-14 [facility] 09-14 08:20 -0400 Type and Screenon 09-15-2023 ABO and Rh group (Bld) Blood group A Rh(D) negative [facility] 09-14 08:20 -0400 ABO/Rh A NEGATIVE 09/15/2023 8:20 AM EDT [facility] Blood group antibody screen Ql Negative [facility] 09-14 08:20 -0400 Antibody Screen NEGATIVE 09/15/2023 8:20 AM EDT [facility] Specimen Expiration 09/18/2023 [facility] 09-14 08:20 -0400 Specimen Expiration 09/18/2023 09/15/2023 8:20 AM EDT [facility] Blood Bank Comment Second Sample needed for Blood Transfusion [facility] 09-14 08:20 -0400 Blood Bank Comment Second Sample needed for Blood Transfusion 09/15/2023 8:20 AM EDT [facility] C-Reactive Proteinon 024 CRP [Mass/Vol] 19.60 mg/dL High NINF - 1.00 mg/dL [facility] 09-13 07:36 -0400 C-Reactive Protein 19.60 (H) <1.00 mg/dL 09/14/2023 7:36 AM EDT [facility] Complete Blood Count, with D ifferentialon 09-14-2023 Basophils Auto (Bld) [#/Vol] 0.05 [facility] 09-13 06:55 -0400 Abs Basophils Auto 0.05 0.00 - 0.20 Thou/uL 09/14/2023 6:55 AM EDT [facility] Basophils/100 WBC Auto (Bld) 0.3 % [facility] 09-13 06:55 -0400 Basophils Auto 0.3 % 09/14/2023 6:55 AM EDT [facility] Eosinophils Auto (Bld) [#/Vol] 0.22 [facility] 09-13 06:55 -0400 Abs Eosinophils Auto 0.22 0.00 - 0.70 Thou/uL 09/14/2023 6:55 AM EDT [facility] Eosinophils/10 0 WBC Auto (Bld) 1.5 % [facility] 09-13 06:55 -0400 Eosinophils Auto 1.5 % 09/14/2023 6:55 AM EDT [facility] RBC Auto (Bld) [#/Vol] 2.76 Low [facility] 09-13 06:55 -0400 Red Blood Cell Count 2.76 (L) 4.00 - 5.40 Mil/uL 09/14/2023 6:55 AM T [facility] Hematocrit Auto (Bld) [Volume fraction] 26.0 % Low 35.0 - 47.0 % [facility] 09-13 06:55 -0400 Hematocrit 26.0 (L) 35.0 - 47.0 % 09/14/2023 6:55 AM T [facility] Hemoglobin (Bld) [Mass/Vol] 8.1 g/dL Low 11.7 - 15.7 g/dL [facility] 09-13 06:55 -0400 Hemoglobin 8.1 (L) 11.7 - 15.7 g/dL 09/14/2023 6:55 AM T [facility] Lymphocytes Auto (Bld) [#/Vol] 1.67 [facility] 09-13 06:55 -0400 Abs Lymphocytes Auto 1.67 1.50 - 4.50 Thou/uL 09/14/2023 6:55 AM EDT [facility] Lymphocytes/10 0 WBC Auto (Bld) 11.5 % [facility] 09-13 06:55 -0400 Lymphocytes Auto 11.5 % 09/14/2023 6:55 AM EDT [facility] MCH Auto (RBC) [Entitic mass] 29.3 pg 26.0 - 34.0 pg [facility] 09-13 06:55 -0400 MCH 29.3 26.0 - 34.0 pg 09/14/2023 6:55 AM EDT [facility] MCHC Auto (RBC) [Mass/Vol] 31.2 g/dL 30.0 - 36.0 g/dL [facility] 09-13 06:55 -0400 MCHC 31.2 30.0 - 36.0 g/dL 09/14/2023 6:55 AM EDT [facility] MCV Auto (RBC) [Entitic vol] 94 fL 80 - 100 fL [facility] 09-13 06:55 -0400 MCV 94 80 - 100 fL 09/14/2023 6:55 AM EDT [facility] Monocytes Auto (Bld) [#/Vol] 0.79 [facility] 09-13 06:55 -0400 Abs Monocytes Auto 0.79 0.20 - 1.50 Thou/uL 09/14/2023 6:55 AM EDT [facility] Monocytes/100 WBC Auto (Bld) 5.4 % [facility] 09-13 06:55 -0400 Monocytes Auto 5.4 % 09/14/2023 6:55 AM EDT [facility] Neutrophils Auto (Bld) [#/Vol] 11.50 High [facility] 09-13 06:55 -0400 Abs Neutrophils Auto 11.50 (H) 2.00 - 7.50 Thou/uL 09/14/2023 6:55 AM EDT [facility] Neutrophils/10 0 WBC Auto (Bld) 79.3 % [facility] 09-13 06:55 -0400 Neutrophils Auto 79.3 % 09/14/2023 6:55 AM EDT [facility] Nucleated RBC/100 WBC Auto (Bld) [Ratio] 0.3 High [facility] 09-13 06:55 -0400 nRBC 0.3 (H) 0.0 - 0.1 /100 WBC 09/14/2023 6:55 AM EDT [facility] Platelet mean volume Auto (Bld) [Entitic vol] 11.1 fL 7.5 - 12.5 fL [facility] 09-13 06:55 -0400 MPV 11.1 7.5 - 12.5 fL 09/14/2023 6:55 AM EDT [facility] Platelets Auto (Bld) [#/Vol] 448 [facility] 09-13 06:55 -0400 Platelet Count 448 150 - 450 Thou/uL 09/14/2023 6:55 AM EDT [facility] Erythrocyte distribution width Auto (RBC) [Ratio] 18.3 % High 11.5 - 14.5 % [facility] 09-13 06:55 -0400 RDW 18.3 (H) 11.5 - 14.5 % 09/14/2023 6:55 AM EDT [facility] WBC Auto (Bld) [#/Vol] 14.5 High [facility] 09-13 06:55 -0400 White Blood Cell Count 14.5 (H) 4.0 - 11.0 Thou/uL 09/14/2023 6:55 AM T [facility] Nucleated RBC Auto (Bld) [#/Vol] 0.04 High [facility] 09-13 06:55 -0400 nRBC, Absolute 0.04 (H) 0.00 - 0.02 Thou/uL 09/14/2023 6:55 AM EDT [facility] Immature granulocytes/1 00 WBC Auto (Bld) 2.0 % [facility] 09-13 06:55 -0400 Immature Granulocytes 2.0 % 09/14/2023 6:55 AM EDT [facility] Immature granulocytes Auto (Bld) [#/Vol] 0.29 High [facility] 09-13 06:55 -0400 Abs Immature Granulocytes 0.29 (H) 0.00 - 0.10 Thou/uL 09/14/2023 6:55 AM EDT [facility] Comprehensive Metabolic Pane tammie 09-14-2023 ALT [Catalytic activity/Vol] 75 U/L High 7 - 35 U/L [facility] 09-13 07:36 -0400 Alanine Aminotrans (ALT) 75 (H) 7 - 35 U/L 09/14/2023 7:36 AM T [facility] Albumin [Mass/Vol] 3.9 g/dL 3.4 - 4.8 g/dL [facility] 09-13 07:36 -0400 Albumin 3.9 3.4 - 4.8 g/dL 09/14/2023 7:36 AM EDT [facility] ALP [Catalytic activity/Vol] 189 U/L High 32 - 122 U/L [facility] 09-13 07:36 -0400 Alkaline Phosphatase 189 (H) 32 - 122 U/L 09/14/2023 7:36 AM T [facility] AST [Catalytic activity/Vol] 95 U/L High NINF - 34 U/L [facility] 09-13 07:36 -0400 Aspartate Aminotrans (AST) 95 (H) <34 U/L 09/14/2023 7:36 AM EDT [facility] Bilirubin [Mass/Vol] 0.5 mg/dL 0.3 - 1.2 mg/dL [facility] 09-13 07:36 -0400 Bilirubin, Total 0.5 0.3 - 1.2 mg/dL 09/14/2023 7:36 AM T [facility] Urea nitrogen/Creat inine [Mass ratio] Not calculated [facility] 09-13 07:36 -0400 BUN/Creatinine Ratio Not calculated 10.0 - 25.0 Ratio 09/14/2023 7:36 AM T [facility] Calcium [Mass/Vol] 8.6 mg/dL Low 8.7 - 10.5 mg/dL [facility] 09-13 07:36 -0400 Calcium 8.6 (L) 8.7 - 10.5 mg/dL 09/14/2023 7:36 AM T [facility] Chloride [Moles/Vol] 103 mmol/L 98 - 107 mmol/L [facility] 09-13 07:36 -0400 Chloride 103 98 - 107 mmol/L 09/14/2023 7:36 AM EDT [facility] CO2 [Moles/Vol] 28 mmol/L 20 - 31 mmol/L [facility] 09-13 07:36 -0400 CO2 28 20 - 31 mmol/L 09/14/2023 7:36 AM EDT [facility] Creatinine [Mass/Vol] 0.5 mg/dL Low 0.6 - 1.0 mg/dL [facility] 09-13 07:36 -0400 Creatinine 0.5 (L) 0.6 - 1.0 mg/dL 09/14/2023 7:36 AM T [facility] Glucose [Mass/Vol] 132 mg/dL High 74 - 106 mg/dL [facility] 09-13 07:36 -0400 Glucose 132 (H) 74 - 106 mg/dL 09/14/2023 7:36 AM T [facility] Comment on above: Fasting: <100 mg/dL, Non-Fasting: <200 m g/dL (ADA 2005) Potassium [Moles/Vol] 4.0 mmol/L 3.4 - 4.5 mmol/L [facility] 09-13 07:36 -0400 Potassium 4.0 3.4 - 4.5 mmol/L 09/14/2023 7:36 AM [facility] Protein [Mass/Vol] 6.6 g/dL 5.7 - 8.2 g/dL [facility] 09-13 07:36 -0400 Protein, Total 6.6 5.7 - 8.2 g/dL 09/14/2023 7:36 AM EDT [facility] Sodium [Moles/Vol] 136 mmol/L 136 - 145 mmol/L [facility] 09-13 07:36 -0400 Sodium 136 136 - 145 mmol/L 09/14/2023 7:36 AM [facility] Urea nitrogen [Mass/Vol] <5 >NINF mg/dL Low 9 - 23 mg/dL [facility] 09-13 07:36 -0400 Blood Urea Nitrogen (BUN) <5 (L) 9 - 23 mg/dL 09/14/2023 7:36 AM EDT [facility] GFR/1.73 sq M.predicted CKD-EPI (S/P/Bld) [Vol rate/Area] <PINF >90 59 - PINF [facility] 09-13 07:36 -0400 eGFR >90 >59 09/14/2023 7:36 AM EDT [facility] Comment on above: CKD-EPI (2020) in mL/min/1.73 sq meters. Globulin Calc (S) [Mass/Vol] 2.7 g/dL 1.5 - 3.9 g/dL [facility] 09-13 07:36 -0400 Globulin 2.7 1.5 - 3.9 g/dL 09/14/2023 7:36 AM EDT [facility] Albumin/Globul in [Mass ratio] 1.4 Low [facility] 09-13 07:36 -0400 Albumin/Globuli n Ratio 1.4 (L) 1.5 - 2.5 Ratio 09/14/2023 7:36 AM EDT [facility] Anion gap (Bld) [Moles/Vol] 5 5 - 15 [facility] 09-13 07:36 -0400 Anion Gap 5 5 - 15 09/14/2023 7:36 AM EDT [facility] Emergency Department (DEEDS) variableson 09-14-2023 Interpretation and review of laboratory results Abnormal [facility] 09-13 07:36 -0400 No Panel Informationon 09-13 [facility] 09-13 07:36 -0400 Basic Metabolic Panel (AM)on 09-13-2023 Urea nitrogen/Creat inine [Mass ratio] Not calculated [facility] 09-12 06:57 -0400 BUN/Creatinine Ratio Not calculated 10.0 - 25.0 Ratio 09/13/2023 6:57 AM EDT [facility] Calcium [Mass/Vol] 8.7 mg/dL 8.7 - 10.5 mg/dL [facility] 09-12 06:57 -0400 Calcium 8.7 8.7 - 10.5 mg/dL 09/13/2023 6:57 AM EDT [facility] Chloride [Moles/Vol] 102 mmol/L 98 - 107 mmol/L [facility] 09-12 06:57 -0400 Chloride 102 98 - 107 mmol/L 09/13/2023 6:57 AM EDT [facility] CO2 [Moles/Vol] 27 mmol/L 20 - 31 mmol/L [facility] 09-12 06:57 -0400 CO2 27 20 - 31 mmol/L 09/13/2023 6:57 AM EDT [facility] Creatinine [Mass/Vol] 0.5 mg/dL Low 0.6 - 1.0 mg/dL [facility] 09-12 06:57 -0400 Creatinine 0.5 (L) 0.6 - 1.0 mg/dL 09/13/2023 6:57 AM T [facility] Glucose [Mass/Vol] 134 mg/dL High 74 - 106 mg/dL [facility] 09-12 06:57 -0400 Glucose 134 (H) 74 - 106 mg/dL 09/13/2023 6:57 AM T [facility] Comment on above: Fasting: <100 mg/dL, Non-Fasting: <200 m g/dL (ADA 2005) Potassium [Moles/Vol] 3.3 mmol/L Low 3.4 - 4.5 mmol/L [facility] 09-12 06:57 -0400 Potassium 3.3 (L) 3.4 - 4.5 mmol/L 09/13/2023 6:57 AM EDT [facility] Sodium [Moles/Vol] 136 mmol/L 136 - 145 mmol/L [facility] 09-12 06:57 -0400 Sodium 136 136 - 145 mmol/L 09/13/2023 6:57 AM EDT [facility] Urea nitrogen [Mass/Vol] <5 >NINF mg/dL Low 9 - 23 mg/dL [facility] 04-11 -2024 06:57 -0400 Blood Urea Nitrogen (BUN) <5 (L) 9 - 23 mg/dL 09/13/2023 6:57 AM EDT [facility] GFR/1.73 sq M.predicted CKD-EPI (S/P/Bld) [Vol rate/Area] <PINF >90 59 - PINF [facility] 09-12 06:57 -0400 eGFR >90 >59 09/13/2023 6:57 AM EDT [facility] Comment on above: CKD-EPI (2020) in mL/min/1.73 sq meters. Anion gap (Bld) [Moles/Vol] 7 5 - 15 [facility] 09-12 06:57 -0400 Anion Gap 7 5 - 15 09/13/2023 6:57 AM EDT [facility] C-Reactive Proteinon 024 CRP [Mass/Vol] 23.50 mg/dL High NINF - 1.00 mg/dL [facility] 09-12 06:57 -0400 C-Reactive Protein 23.50 (H) <1.00 mg/dL 09/13/2023 6:57 AM EDT [facility] Complete Blood Count, with D ifferential (AM)on 09-13-2023 Basophils Auto (Bld) [#/Vol] 0.07 [facility] 09-12 06:45 -0400 Abs Basophils Auto 0.07 0.00 - 0.20 Thou/uL 09/13/2023 6:45 AM EDT [facility] Basophils/100 WBC Auto (Bld) 0.4 % [facility] 09-12 06:45 -0400 Basophils Auto 0.4 % 09/13/2023 6:45 AM EDT [facility] Eosinophils Auto (Bld) [#/Vol] 0.25 [facility] 09-12 06:45 -0400 Abs Eosinophils Auto 0.25 0.00 - 0.70 Thou/uL 09/13/2023 6:45 AM EDT [facility] Eosinophils/10 0 WBC Auto (Bld) 1.5 % [facility] 09-12 06:45 -0400 Eosinophils Auto 1.5 % 09/13/2023 6:45 AM EDT [facility] RBC Auto (Bld) [#/Vol] 2.92 Low [facility] 09-12 06:45 -0400 Red Blood Cell Count 2.92 (L) 4.00 - 5.40 Mil/uL 09/13/2023 6:45 AM EDT [facility] Hematocrit Auto (Bld) [Volume fraction] 27.4 % Low 35.0 - 47.0 % [facility] 09-12 06:45 -0400 Hematocrit 27.4 (L) 35.0 - 47.0 % 09/13/2023 6:45 AM EDT [facility] Hemoglobin (Bld) [Mass/Vol] 8.5 g/dL Low 11.7 - 15.7 g/dL [facility] 09-12 06:45 -0400 Hemoglobin 8.5 (L) 11.7 - 15.7 g/dL 09/13/2023 6:45 AM EDT [facility] Lymphocytes Auto (Bld) [#/Vol] 2.35 [facility] 09-12 06:45 -0400 Abs Lymphocytes Auto 2.35 1.50 - 4.50 Thou/uL 09/13/2023 6:45 AM EDT [facility] Lymphocytes/10 0 WBC Auto (Bld) 14.4 % [facility] 09-12 06:45 -0400 Lymphocytes Auto 14.4 % 09/13/2023 6:45 AM EDT [facility] MCH Auto (RBC) [Entitic mass] 29.1 pg 26.0 - 34.0 pg [facility] 09-12 06:45 -0400 MCH 29.1 26.0 - 34.0 pg 09/13/2023 6:45 AM EDT [facility] MCHC Auto (RBC) [Mass/Vol] 31.0 g/dL 30.0 - 36.0 g/dL [facility] 09-12 06:45 -0400 MCHC 31.0 30.0 - 36.0 g/dL 09/13/2023 6:45 AM EDT [facility] MCV Auto (RBC) [Entitic vol] 94 fL 80 - 100 fL [facility] 09-12 06:45 -0400 MCV 94 80 - 100 fL 09/13/2023 6:45 AM EDT [facility] Monocytes Auto (Bld) [#/Vol] 1.05 [facility] 09-12 06:45 -0400 Abs Monocytes Auto 1.05 0.20 - 1.50 Thou/uL 09/13/2023 6:45 AM EDT [facility] Monocytes/100 WBC Auto (Bld) 6.4 % [facility] 09-12 06:45 -0400 Monocytes Auto 6.4 % 09/13/2023 6:45 AM EDT [facility] Neutrophils Auto (Bld) [#/Vol] 12.07 High [facility] 09-12 06:45 -0400 Abs Neutrophils Auto 12.07 (H) 2.00 - 7.50 Thou/uL 09/13/2023 6:45 AM EDT [facility] Neutrophils/10 0 WBC Auto (Bld) 74.2 % [facility] 09-12 06:45 -0400 Neutrophils Auto 74.2 % 09/13/2023 6:45 AM EDT [facility] Nucleated RBC/100 WBC Auto (Bld) [Ratio] 0.4 High [facility] 09-12 06:45 -0400 nRBC 0.4 (H) 0.0 - 0.1 /100 WBC 09/13/2023 6:45 AM EDT [facility] Platelet mean volume Auto (Bld) [Entitic vol] 11.2 fL 7.5 - 12.5 fL [facility] 09-12 06:45 -0400 MPV 11.2 7.5 - 12.5 fL 09/13/2023 6:45 AM EDT [facility] Platelets Auto (Bld) [#/Vol] 485 High [facility] 09-12 06:45 -0400 Platelet Count 485 (H) 150 - 450 Thou/uL 09/13/2023 6:45 AM EDT [facility] Erythrocyte distribution width Auto (RBC) [Ratio] 18.0 % High 11.5 - 14.5 % [facility] 09-12 06:45 -0400 RDW 18.0 (H) 11.5 - 14.5 % 09/13/2023 6:45 AM EDT [facility] WBC Auto (Bld) [#/Vol] 16.3 High [facility] 09-12 06:45 -0400 White Blood Cell Count 16.3 (H) 4.0 - 11.0 Thou/uL 09/13/2023 6:45 AM EDT [facility] Nucleated RBC Auto (Bld) [#/Vol] 0.06 High [facility] 09-12 06:45 -0400 nRBC, Absolute 0.06 (H) 0.00 - 0.02 Thou/uL 09/13/2023 6:45 AM EDT [facility] Immature granulocytes/1 00 WBC Auto (Bld) 3.1 % [facility] 09-12 06:45 -0400 Immature Granulocytes 3.1 % 09/13/2023 6:45 AM EDT [facility] Immature granulocytes Auto (Bld) [#/Vol] 0.50 High [facility] 09-12 06:45 -0400 Abs Immature Granulocytes 0.50 (H) 0.00 - 0.10 Thou/uL 09/13/2023 6:45 AM EDT [facility] Emergency Department (DEEDS) variableson 09-13-2023 Interpretation and review of laboratory results Abnormal [facility] 09-12 06:57 -0400 No Panel Informationon 09-12 [facility] 09-12 06:57 -0400 BASIC METABOLIC PANELon 09-02 Urea nitrogen/Creat inine [Mass ratio] Not calculated [facility] 09-11 08:26 -0400 BUN/Creatinine Ratio Not calculated 10.0 - 25.0 Ratio 09/12/2023 8:26 AM EDT [facility] Calcium [Mass/Vol] 8.4 mg/dL Low 8.7 - 10.5 mg/dL [facility] 09-11 08:0400 Calcium 8.4 (L) 8.7 - 10.5 mg/dL 09/12/2023 8:26 AM T [facility] Chloride [Moles/Vol] 103 mmol/L 98 - 107 mmol/L [facility] 09-11 08:26 0400 Chloride 103 98 - 107 mmol/L 09/12/2023 8:26 AM T [facility] CO2 [Moles/Vol] 26 mmol/L 20 - 31 mmol/L [facility] 09-11 08:0400 CO2 26 20 - 31 mmol/L 09/12/2023 8:26 AM [facility] Creatinine [Mass/Vol] 0.4 mg/dL Low 0.6 - 1.0 mg/dL [facility] 09-11 08:0400 Creatinine 0.4 (L) 0.6 - 1.0 mg/dL 09/12/2023 8:26 AM [facility] Glucose [Mass/Vol] 127 mg/dL High 74 - 106 mg/dL [facility] 09-11 08:26 0400 Glucose 127 (H) 74 - 106 mg/dL 09/12/2023 8:26 AM [facility] Comment on above: Fasting: <100 mg/dL, Non-Fasting: <200 m g/dL (ADA 2005) Potassium [Moles/Vol] 3.5 mmol/L 3.4 - 4.5 mmol/L [facility] 09-11 08:26 0400 Potassium 3.5 3.4 - 4.5 mmol/L 09/12/2023 8:26 AM T [facility] Sodium [Moles/Vol] 136 mmol/L 136 - 145 mmol/L [facility] 09-11 08:0400 Sodium 136 136 - 145 mmol/L 09/12/2023 8:26 AM T [facility] Urea nitrogen [Mass/Vol] <5 >NINF mg/dL Low 9 - 23 mg/dL [facility] 09-11 08:26 -0400 Blood Urea Nitrogen (BUN) <5 (L) 9 - 23 mg/dL 09/12/2023 8:26 AM EDT [facility] GFR/1.73 sq M.predicted CKD-EPI (S/P/Bld) [Vol rate/Area] <PINF >90 59 - PINF [facility] 09-11 08:26 -0400 eGFR >90 >59 09/12/2023 8:26 AM EDT [facility] Comment on above: CKD-EPI (2020) in mL/min/1.73 sq meters. 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 There are hypodense regions within the collection which appears somewhat similar to the prior exam and probably represent hemorrhagic components. Overall, most of the components of the lateral collections are unchanged in size, noting that there is a portion in the RIGHT inferior aspect along the mesentery which has mildly increased in size. Note that there is no obvious extravasation of contrast, but the patient would be at risk for pseudoaneurysm formation and continued follow-up of the patient's hemodynamic status is recommended. 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 Bilateral pleural effusions LEFT nonobstructing nephrolithiasis . These findings were discussed with SHANNON MITCHELL via secure text messenger at 09/12/2023 12:28 PM. [facility] 09-11 12:28 -0400 Continued findings of hemorrhagic necrosis related to the patient's pancreatitis. There are hypodense regions within the collection which appears somewhat similar to the prior exam and probably represent hemorrhagic components. Overall, most of the components of the lateral collections are unchanged in size, noting that there is a portion in the RIGHT inferior aspect along the mesentery which has mildly increased in size. Note that there is no obvious extravasation of contrast, but the patient would be at risk for pseudoaneurysm formation and continued follow-up of the patient's hemodynamic status is recommended. 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 Bilateral pleural effusions LEFT nonobstructing nephrolithiasis . These findings were discussed with SHANNON MITCHELL via secure text messenger at 09/12/2023 12:28 PM. Madhu Rider MD - 09/12/2023 CLINICAL INFORMATION: Necrotizing pancreatitis - interval evaluation - CRP and leukocytosis persistently elevated. Persistent abdominal pain COMPARISON: CT abdomen and pelvis 09/07/2023 and 09/04/2023 TECHNIQUE: CT Abdomen without and with contrast. IV Contrast: 80 mL Omnipaque 350. Protocol: Protocol: Protocol: Pancreas. Oral Contrast: Not given. Dose modulation and/or iterative reconstruction was utilized to minimize dose. FINDINGS: Lower Chest: There is patchy groundglass opacities in the RIGHT lower lobe. Bilateral pleural effusions. Liver: No focal lesions. Intrahepatic biliary ducts are normal. Gallbladder/Doni iary: Distended. Extrahepatic biliary ducts are normal. Spleen: Unremarkable. 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 There is a pancreatic and peripancreatic fluid collections. There is no gas. The pancreatic collection is well demarcated with an enhancing wall, with multiple loculated areas all of which probably communicate with each other. A lesser sac component of the collection on series 2, image 25 measures 9.9 x 7.1 cm compared with 10 x 6.2 cm on the prior exam and contains some hyperdense material probably indicating hemorrhagic products. Another component anterior to the hemorrhagic pancreatic tissue on image 34 measures 8.4 x 4 cm, previously 8.3 x 4.6 cm. Another slightly inferior to this on the RIGHT within the mesenteric region on image 39 measures 8 x 4.8 cm, previously 6.7 x 3.9 cm.. There is a filling defect in the portal and extending to the splenic vein likely thrombosis (series 2 image 26 and series 7, image 54). Adrenals: Unremarkable. Kidneys: RIGHT lower pole 3 and 2 mm nonobstructing stone. LEFT kidney is unremarkable. No hydronephrosis. Retroperitoneum : Unremarkable. No adenopathy. Gastrointestina l: There is mild distended small bowel loops likely ileus. No obstruction. Bones: No acute or suspicious abnormalities. IMPRESSION: Continued findings of hemorrhagic necrosis related to the patient's pancreatitis. There are hypodense regions within the collection which appears somewhat similar to the prior exam and probably represent hemorrhagic components. Overall, most of the components of the lateral collections are unchanged in size, noting that there is a portion in the RIGHT inferior aspect along the mesentery which has mildly increased in size. Note that there is no obvious extravasation of contrast, but the patient would be at risk for pseudoaneurysm formation and continued follow-up of the patient's hemodynamic status is recommended. 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 Bilateral pleural effusions LEFT nonobstructing nephrolithiasis . These findings were discussed with SHANNON MITCHELL via secure text messenger at 09/12/2023 12:28 PM. [facility] 09-11 12:28 -0400 Madhu Rider MD - 09/12/2023 CLINICAL INFORMATION: Necrotizing pancreatitis - interval evaluation - CRP and leukocytosis persistently elevated. Persistent abdominal pain COMPARISON: CT abdomen and pelvis 09/07/2023 and 09/04/2023 TECHNIQUE: CT Abdomen without and with contrast. IV Contrast: 80 mL Omnipaque 350. Protocol: Protocol: Protocol: Pancreas. Oral Contrast: Not given. Dose modulation and/or iterative reconstruction was utilized to minimize dose. FINDINGS: Lower Chest: There is patchy groundglass opacities in the RIGHT lower lobe. Bilateral pleural effusions. Liver: No focal lesions. Intrahepatic biliary ducts are normal. Gallbladder/Doni iary: Distended. Extrahepatic biliary ducts are normal. Spleen: Unremarkable. 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 There is a pancreatic and peripancreatic fluid collections. There is no gas. The pancreatic collection is well demarcated with an enhancing wall, with multiple loculated areas all of which probably communicate with each other. A lesser sac component of the collection on series 2, image 25 measures 9.9 x 7.1 cm compared with 10 x 6.2 cm on the prior exam and contains some hyperdense material probably indicating hemorrhagic products. Another component anterior to the hemorrhagic pancreatic tissue on image 34 measures 8.4 x 4 cm, previously 8.3 x 4.6 cm. Another slightly inferior to this on the RIGHT within the mesenteric region on image 39 measures 8 x 4.8 cm, previously 6.7 x 3.9 cm.. There is a filling defect in the portal and extending to the splenic vein likely thrombosis (series 2 image 26 and series 7, image 54). Adrenals: Unremarkable. Kidneys: RIGHT lower pole 3 and 2 mm nonobstructing stone. LEFT kidney is unremarkable. No hydronephrosis. Retroperitoneum : Unremarkable. No adenopathy. Gastrointestina l: There is mild distended small bowel loops likely ileus. No obstruction. Bones: No acute or suspicious abnormalities. IMPRESSION: Continued findings of hemorrhagic necrosis related to the patient's pancreatitis. There are hypodense regions within the collection which appears somewhat similar to the prior exam and probably represent hemorrhagic components. Overall, most of the components of the lateral collections are unchanged in size, noting that there is a portion in the RIGHT inferior aspect along the mesentery which has mildly increased in size. Note that there is no obvious extravasation of contrast, but the patient would be at risk for pseudoaneurysm formation and continued follow-up of the patient's hemodynamic status is recommended. 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 Bilateral pleural effusions LEFT nonobstructing nephrolithiasis . These findings were discussed with SHANNON MITCHELL via secure text messenger at 09/12/2023 12:28 PM. [facility] 09-11 12:28 -0400 Radiology Study observation (narrative) [facility] Complete Blood Count, with D ifferential (AM)on 09-12-2023 Basophils Auto (Bld) [#/Vol] 0.04 [facility] 09-11 07:33 -0400 Abs Basophils Auto 0.04 0.00 - 0.20 Thou/uL 09/12/2023 7:33 AM EDT [facility] Basophils/100 WBC Auto (Bld) 0.2 % [facility] 09-11 07:33 -0400 Basophils Auto 0.2 % 09/12/2023 7:33 AM T [facility] Eosinophils Auto (Bld) [#/Vol] 0.30 [facility] 09-11 07:33 -0400 Abs Eosinophils Auto 0.30 0.00 - 0.70 Thou/uL 09/12/2023 7:33 AM EDT [facility] Eosinophils/10 0 WBC Auto (Bld) 1.8 % [facility] 09-11 07:33 -0400 Eosinophils Auto 1.8 % 09/12/2023 7:33 AM T [facility] RBC Auto (Bld) [#/Vol] 2.67 Low [facility] 09-11 07:33 -0400 Red Blood Cell Count 2.67 (L) 4.00 - 5.40 Mil/uL 09/12/2023 7:33 AM T [facility] Hematocrit Auto (Bld) [Volume fraction] 24.9 % Low 35.0 - 47.0 % [facility] 09-11 07:33 -0400 Hematocrit 24.9 (L) 35.0 - 47.0 % 09/12/2023 7:33 AM T [facility] Hemoglobin (Bld) [Mass/Vol] 7.9 g/dL Low 11.7 - 15.7 g/dL [facility] 09-11 07:33 -0400 Hemoglobin 7.9 (L) 11.7 - 15.7 g/dL 09/12/2023 7:33 AM T [facility] Lymphocytes Auto (Bld) [#/Vol] 2.02 [facility] 09-11 07:33 -0400 Abs Lymphocytes Auto 2.02 1.50 - 4.50 Thou/uL 09/12/2023 7:33 AM T [facility] Lymphocytes/10 0 WBC Auto (Bld) 12.4 % [facility] 09-11 07:33 -0400 Lymphocytes Auto 12.4 % 09/12/2023 7:33 AM EDT [facility] MCH Auto (RBC) [Entitic mass] 29.6 pg 26.0 - 34.0 pg [facility] 09-11 07:33 -0400 MCH 29.6 26.0 - 34.0 pg 09/12/2023 7:33 AM EDT [facility] MCHC Auto (RBC) [Mass/Vol] 31.7 g/dL 30.0 - 36.0 g/dL [facility] 09-11 07:33 -0400 MCHC 31.7 30.0 - 36.0 g/dL 09/12/2023 7:33 AM EDT [facility] MCV Auto (RBC) [Entitic vol] 93 fL 80 - 100 fL [facility] 09-11 07:33 -0400 MCV 93 80 - 100 fL 09/12/2023 7:33 AM EDT [facility] Monocytes Auto (Bld) [#/Vol] 0.96 [facility] 09-11 07:33 -0400 Abs Monocytes Auto 0.96 0.20 - 1.50 Thou/uL 09/12/2023 7:33 AM EDT [facility] Monocytes/100 WBC Auto (Bld) 5.9 % [facility] 09-11 07:33 -0400 Monocytes Auto 5.9 % 09/12/2023 7:33 AM EDT [facility] Neutrophils Auto (Bld) [#/Vol] 12.30 High [facility] 09-11 07:33 -0400 Abs Neutrophils Auto 12.30 (H) 2.00 - 7.50 Thou/uL 09/12/2023 7:33 AM EDT [facility] Neutrophils/10 0 WBC Auto (Bld) 75.2 % [facility] 09-11 07:33 -0400 Neutrophils Auto 75.2 % 09/12/2023 7:33 AM EDT [facility] Nucleated RBC/100 WBC Auto (Bld) [Ratio] 0.3 High [facility] 09-11 07:33 -0400 nRBC 0.3 (H) 0.0 - 0.1 /100 WBC 09/12/2023 7:33 AM EDT [facility] Platelet mean volume Auto (Bld) [Entitic vol] 11.0 fL 7.5 - 12.5 fL [facility] 09-11 07:33 -0400 MPV 11.0 7.5 - 12.5 fL 09/12/2023 7:33 AM EDT [facility] Platelets Auto (Bld) [#/Vol] 465 [facility] 09-11 07:33 -0400 Platelet Count 465 (H) 150 - 450 Thou/uL 09/12/2023 7:33 AM T [facility] Erythrocyte distribution width Auto (RBC) [Ratio] 18.0 % High 11.5 - 14.5 % [facility] 09-11 07:33 -0400 RDW 18.0 (H) 11.5 - 14.5 % 09/12/2023 7:33 AM EDT [facility] WBC Auto (Bld) [#/Vol] 16.4 [facility] 09-11 07:33 -0400 White Blood Cell Count 16.4 (H) 4.0 - 11.0 Thou/uL 09/12/2023 7:33 AM T [facility] Nucleated RBC Auto (Bld) [#/Vol] 0.05 [facility] 09-11 07:33 -0400 nRBC, Absolute 0.05 (H) 0.00 - 0.02 Thou/uL 09/12/2023 7:33 AM EDT [facility] Immature granulocytes/1 00 WBC Auto (Bld) 4.5 % [facility] 09-11 07:33 -0400 Immature Granulocytes 4.5 % 09/12/2023 7:33 AM T [facility] Immature granulocytes Auto (Bld) [#/Vol] 0.73 [facility] 09-11 07:33 -0400 Abs Immature Granulocytes 0.73 (H) 0.00 - 0.10 Thou/uL 09/12/2023 7:33 AM EDT [facility] Emergency Department (DEEDS) variableson 09-12-2023 Interpretation and review of laboratory results Abnormal [facility] 09-11 08:26 -0400 No Panel Informationon 09-11 [facility] 09-11 08:26 -0400 Beta-hCG, Qualitative, Urine on 09-11-2023 HCG ( test) Ql (U) Negative Negative [facility] 09-10 12:32 -0400 Beta-hCG, Qualitative, Urine Negative Negative 09/11/2023 12:32 PM EDT [facility] C-Reactive Proteinon 024 CRP [Mass/Vol] 25.00 mg/dL High NINF - 1.00 mg/dL [facility] 09-10 06:11 -0400 C-Reactive Protein 25.00 (H) <1.00 mg/dL 09/11/2023 6:11 AM EDT [facility] Complete Blood Count, with D ifferentialon 09-11-2023 Basophils Auto (Bld) [#/Vol] 0.08 [facility] 09-10 05:59 -0400 Abs Basophils Auto 0.08 0.00 - 0.20 Thou/uL 09/11/2023 5:59 AM EDT [facility] Basophils/100 WBC Auto (Bld) 0.5 % [facility] 09-10 05:59 -0400 Basophils Auto 0.5 % 09/11/2023 5:59 AM EDT [facility] Eosinophils Auto (Bld) [#/Vol] 0.29 [facility] 09-10 05:59 -0400 Abs Eosinophils Auto 0.29 0.00 - 0.70 Thou/uL 09/11/2023 5:59 AM EDT [facility] Eosinophils/10 0 WBC Auto (Bld) 2.0 % [facility] 09-10 05:59 -0400 Eosinophils Auto 2.0 % 09/11/2023 5:59 AM EDT [facility] RBC Auto (Bld) [#/Vol] 2.67 Low [facility] 09-10 05:59 -0400 Red Blood Cell Count 2.67 (L) 4.00 - 5.40 Mil/uL 09/11/2023 5:57 AM EDT [facility] Hematocrit Auto (Bld) [Volume fraction] 24.4 % Low 35.0 - 47.0 % [facility] 09-10 05:59 -0400 Hematocrit 24.4 (L) 35.0 - 47.0 % 09/11/2023 5:57 AM EDT [facility] Hemoglobin (Bld) [Mass/Vol] 8.0 g/dL Low 11.7 - 15.7 g/dL [facility] 09-10 05:59 -0400 Hemoglobin 8.0 (L) 11.7 - 15.7 g/dL 09/11/2023 5:57 AM T [facility] Lymphocytes Auto (Bld) [#/Vol] 1.78 [facility] 09-10 05:59 -0400 Abs Lymphocytes Auto 1.78 1.50 - 4.50 Thou/uL 09/11/2023 5:59 AM EDT [facility] Lymphocytes/10 0 WBC Auto (Bld) 12.1 % [facility] 09-10 05:59 -0400 Lymphocytes Auto 12.1 % 09/11/2023 5:59 AM T [facility] MCH Auto (RBC) [Entitic mass] 30.0 pg 26.0 - 34.0 pg [facility] 09-10 05:59 -0400 MCH 30.0 26.0 - 34.0 pg 09/11/2023 5:57 AM EDT [facility] MCHC Auto (RBC) [Mass/Vol] 32.8 g/dL 30.0 - 36.0 g/dL [facility] 09-10 05:59 -0400 MCHC 32.8 30.0 - 36.0 g/dL 09/11/2023 5:57 AM T [facility] MCV Auto (RBC) [Entitic vol] 91 fL 80 - 100 fL [facility] 09-10 05:59 -0400 MCV 91 80 - 100 fL 09/11/2023 5:57 AM EDT [facility] Monocytes Auto (Bld) [#/Vol] 1.24 [facility] 09-10 05:59 -0400 Abs Monocytes Auto 1.24 0.20 - 1.50 Thou/uL 09/11/2023 5:59 AM EDT [facility] Monocytes/100 WBC Auto (Bld) 8.4 % [facility] 09-10 05:59 -0400 Monocytes Auto 8.4 % 09/11/2023 5:59 AM EDT [facility] Neutrophils Auto (Bld) [#/Vol] 10.56 High [facility] 09-10 05:59 -0400 Abs Neutrophils Auto 10.56 (H) 2.00 - 7.50 Thou/uL 09/11/2023 5:59 AM EDT [facility] Neutrophils/10 0 WBC Auto (Bld) 71.9 % [facility] 09-10 05:59 -0400 Neutrophils Auto 71.9 % 09/11/2023 5:59 AM EDT [facility] Nucleated RBC/100 WBC Auto (Bld) [Ratio] 0.3 High [facility] 09-10 05:59 -0400 nRBC 0.3 (H) 0.0 - 0.1 /100 WBC 09/11/2023 5:57 AM EDT [facility] Platelet mean volume Auto (Bld) [Entitic vol] 11.1 fL 7.5 - 12.5 fL [facility] 09-10 05:59 -0400 MPV 11.1 7.5 - 12.5 fL 09/11/2023 5:57 AM EDT [facility] Platelets Auto (Bld) [#/Vol] 403 [facility] 09-10 05:59 -0400 Platelet Count 403 150 - 450 Thou/uL 09/11/2023 5:57 AM EDT [facility] Erythrocyte distribution width Auto (RBC) [Ratio] 17.4 % High 11.5 - 14.5 % [facility] 09-10 05:59 -0400 RDW 17.4 (H) 11.5 - 14.5 % 09/11/2023 5:57 AM EDT [facility] WBC Auto (Bld) [#/Vol] 14.7 High [facility] 09-10 05:59 -0400 White Blood Cell Count 14.7 (H) 4.0 - 11.0 Thou/uL 09/11/2023 5:57 AM EDT [facility] Nucleated RBC Auto (Bld) [#/Vol] 0.04 [facility] 09-10 05:59 -0400 nRBC, Absolute 0.04 (H) 0.00 - 0.02 Thou/uL 09/11/2023 5:57 AM T [facility] Immature granulocytes/1 00 WBC Auto (Bld) 5.1 % [facility] 09-10 05:59 -0400 Immature Granulocytes 5.1 % 09/11/2023 5:59 AM EDT [facility] Immature granulocytes Auto (Bld) [#/Vol] 0.75 [facility] 09-10 05:59 -0400 Abs Immature Granulocytes 0.75 (H) 0.00 - 0.10 Thou/uL 09/11/2023 5:59 AM T [facility] Comprehensive Metabolic Pane tammie 09-11-2023 ALT [Catalytic activity/Vol] 44 U/L High 7 - 35 U/L [facility] 09-10 06:11 -0400 Alanine Aminotrans (ALT) 44 (H) 7 - 35 U/L 09/11/2023 6:11 AM T [facility] Albumin [Mass/Vol] 3.7 g/dL 3.4 - 4.8 g/dL [facility] 09-10 06:11 -0400 Albumin 3.7 3.4 - 4.8 g/dL 09/11/2023 6:11 AM T [facility] ALP [Catalytic activity/Vol] 218 U/L High 32 - 122 U/L [facility] 09-10 06:11 -0400 Alkaline Phosphatase 218 (H) 32 - 122 U/L 09/11/2023 6:11 AM EDT [facility] AST [Catalytic activity/Vol] 86 U/L High NINF - 34 U/L [facility] 09-10 06:11 -0400 Aspartate Aminotrans (AST) 86 (H) <34 U/L 09/11/2023 6:11 AM T [facility] Bilirubin [Mass/Vol] 0.7 mg/dL 0.3 - 1.2 mg/dL [facility] 09-10 06:11 -0400 Bilirubin, Total 0.7 0.3 - 1.2 mg/dL 09/11/2023 6:11 AM T [facility] Urea nitrogen/Creat inine [Mass ratio] Not calculated [facility] 09-10 06:11 0400 BUN/Creatinine Ratio Not calculated 10.0 - 25.0 Ratio 09/11/2023 6:11 AM T [facility] Calcium [Mass/Vol] 8.3 mg/dL Low 8.7 - 10.5 mg/dL [facility] 09-10 06:11 -0400 Calcium 8.3 (L) 8.7 - 10.5 mg/dL 09/11/2023 6:11 AM T [facility] Chloride [Moles/Vol] 102 mmol/L 98 - 107 mmol/L [facility] 09-10 06:11 -0400 Chloride 102 98 - 107 mmol/L 09/11/2023 6:11 AM T [facility] CO2 [Moles/Vol] 27 mmol/L 20 - 31 mmol/L [facility] 09-10 06:11 -0400 CO2 27 20 - 31 mmol/L 09/11/2023 6:11 AM T [facility] Creatinine [Mass/Vol] 0.5 mg/dL Low 0.6 - 1.0 mg/dL [facility] 09-10 06:11 -0400 Creatinine 0.5 (L) 0.6 - 1.0 mg/dL 09/11/2023 6:11 AM [facility] Glucose [Mass/Vol] 131 mg/dL High 74 - 106 mg/dL [facility] 09-10 06:11 0400 Glucose 131 (H) 74 - 106 mg/dL 09/11/2023 6:11 AM [facility] Comment on above: Fasting: <100 mg/dL, Non-Fasting: <200 m g/dL (ADA 2004) Potassium [Moles/Vol] 3.3 mmol/L Low 3.4 - 4.5 mmol/L [facility] 09-10 06:11 -0400 Potassium 3.3 (L) 3.4 - 4.5 mmol/L 09/11/2023 6:11 AM [facility] Protein [Mass/Vol] 6.0 g/dL 5.7 - 8.2 g/dL [facility] 09-10 06:11 -0400 Protein, Total 6.0 5.7 - 8.2 g/dL 09/11/2023 6:11 AM [facility] Sodium [Moles/Vol] 136 mmol/L 136 - 145 mmol/L [facility] 09-10 06:11 -0400 Sodium 136 136 - 145 mmol/L 09/11/2023 6:11 AM [facility] Urea nitrogen [Mass/Vol] <5 >NINF mg/dL Low 9 - 23 mg/dL [facility] 09-10 06:11 -0400 Blood Urea Nitrogen (BUN) <5 (L) 9 - 23 mg/dL 09/11/2023 6:11 AM [facility] GFR/1.73 sq M.predicted CKD-EPI (S/P/Bld) [Vol rate/Area] <PINF >90 59 - PINF [facility] 09-10 06:11 -0400 eGFR >90 >59 09/11/2023 6:11 AM [facility] Comment on above: CKD-EPI (2020) in mL/min/1.73 sq meters. Globulin Calc (S) [Mass/Vol] 2.3 g/dL 1.5 - 3.9 g/dL [facility] 09-10 06:11 -0400 Globulin 2.3 1.5 - 3.9 g/dL 09/11/2023 6:11 AM EDT [facility] Albumin/Globul in [Mass ratio] 1.6 [facility] 09-10 06:11 -0400 Albumin/Globuli n Ratio 1.6 1.5 - 2.5 Ratio 09/11/2023 6:11 AM EDT [facility] Anion gap (Bld) [Moles/Vol] 7 5 - 15 [facility] 09-10 06:11 -0400 Anion Gap 7 5 - 15 09/11/2023 6:11 AM EDT [facility] Emergency Department (DEEDS) variableson 09-11-2023 Interpretation and review of laboratory results Abnormal [facility] 09-10 06:11 -0400 MAGNESIUMon 09-11-2023 Magnesium [Mass/Vol] 2.0 mg/dL 1.6 - 2.6 mg/dL [facility] 09-10 06:11 -0400 Magnesium 2.0 1.6 - 2.6 mg/dL 09/11/2023 6:11 AM EDT [facility] No Panel Informationon 09-10 [facility] 09-10 12:32 -0400 [facility] 09-10 06:11 -0400 PHOSPHORUSon 09-11-2023 Phosphate [Mass/Vol] 3.0 mg/dL 2.4 - 5.1 mg/dL [facility] 09-10 06:11 -0400 Phosphorus 3.0 2.4 - 5.1 mg/dL 09/11/2023 6:11 AM EDT [facility] POCT Glucose, Fingerstickon 09-11-2023 Glucose (Bld) [Mass/Vol] 126 mg/dL High 65 - 99 mg/dL [facility] 09-10 20:06 -0400 POC Glucose 126 (H) 65 - 99 mg/dL 09/11/2023 8:06 PM EDT [facility] Glucose (Bld) [Mass/Vol] 131 mg/dL High 65 - 99 mg/dL [facility] 09-10 16:57 -0400 POC Glucose 131 (H) 65 - 99 mg/dL 09/11/2023 4:57 PM EDT [facility] Glucose (Bld) [Mass/Vol] 130 mg/dL High 65 - 99 mg/dL [facility] 09-10 11:48 -0400 POC Glucose 130 (H) 65 - 99 mg/dL 09/11/2023 11:48 AM EDT [facility] Glucose (Bld) [Mass/Vol] 120 mg/dL High 65 - 99 mg/dL [facility] 09-10 08:00 -0400 POC Glucose 120 (H) 65 - 99 mg/dL 09/11/2023 8:00 AM T [facility] Glucose (Bld) [Mass/Vol] 117 mg/dL High 65 - 99 mg/dL [facility] 09-10 04:19 -0400 POC Glucose 117 (H) 65 - 99 mg/dL 09/11/2023 4:19 AM EDT [facility] Interpretation and review of laboratory results Abnormal [facility] 09-10 20:06 -0400 [facility] 09-10 20:06 -0400 Interpretation and review of laboratory results Abnormal [facility] 09-10 16:57 -0400 [facility] 09-10 16:57 -0400 Interpretation and review of laboratory results Abnormal [facility] 09-10 11:48 -0400 Interpretation and review of laboratory results Abnormal [facility] 09-10 08:00 -0400 [facility] 09-10 08:00 -0400 Interpretation and review of laboratory results Abnormal [facility] 09-10 04:19 -0400 [facility] 09-10 04:19 -0400 BASIC METABOLIC PANELon 04-0 Urea nitrogen/Creat inine [Mass ratio] Not calculated [facility] 09-09 04:46 -0400 BUN/Creatinine Ratio Not calculated 10.0 - 25.0 Ratio 09/10/2023 4:46 AM EDT [facility] Calcium [Mass/Vol] 8.6 mg/dL Low 8.7 - 10.5 mg/dL [facility] 09-09 04:46 -0400 Calcium 8.6 (L) 8.7 - 10.5 mg/dL 09/10/2023 4:46 AM T [facility] Chloride [Moles/Vol] 104 mmol/L 98 - 107 mmol/L [facility] 09-09 04:46 -0400 Chloride 104 98 - 107 mmol/L 09/10/2023 4:46 AM T [facility] CO2 [Moles/Vol] 23 mmol/L 20 - 31 mmol/L [facility] 09-09 04:46 -0400 CO2 23 20 - 31 mmol/L 09/10/2023 4:46 AM [facility] Creatinine [Mass/Vol] 0.5 mg/dL Low 0.6 - 1.0 mg/dL [facility] 09-09 04:46 -0400 Creatinine 0.5 (L) 0.6 - 1.0 mg/dL 09/10/2023 4:46 AM [facility] Glucose [Mass/Vol] 111 mg/dL High 74 - 106 mg/dL [facility] 09-09 04:46 -0400 Glucose 111 (H) 74 - 106 mg/dL 09/10/2023 4:46 AM [facility] Comment on above: Fasting: <100 mg/dL, Non-Fasting: <200 m g/dL (ADA 2005) Potassium [Moles/Vol] 3.9 mmol/L 3.4 - 4.5 mmol/L [facility] 09-09 04:46 -0400 Potassium 3.9 3.4 - 4.5 mmol/L 09/10/2023 4:46 AM [facility] Sodium [Moles/Vol] 134 mmol/L Low 136 - 145 mmol/L [facility] 09-09 04:46 -0400 Sodium 134 (L) 136 - 145 mmol/L 09/10/2023 4:46 AM [facility] Urea nitrogen [Mass/Vol] <5 >NINF mg/dL Low 9 - 23 mg/dL [facility] 09-09 04:46 -0400 Blood Urea Nitrogen (BUN) <5 (L) 9 - 23 mg/dL 09/10/2023 4:46 AM EDT [facility] GFR/1.73 sq M.predicted CKD-EPI (S/P/Bld) [Vol rate/Area] <PINF >90 59 - PINF [facility] 09-09 04:46 -0400 eGFR >90 >59 09/10/2023 4:46 AM T [facility] Comment on above: CKD-EPI (2020) in mL/min/1.73 sq meters. Anion gap (Bld) [Moles/Vol] 7 5 - 15 [facility] 09-09 04:46 -0400 Anion Gap 7 5 - 15 09/10/2023 4:46 AM T [facility] Interpretation and review of laboratory results Abnormal [facility] 09-09 04:46 -0400 C-REACTIVE PROTEINon 024 CRP [Mass/Vol] 30.10 mg/dL High NINF - 1.00 mg/dL [facility] 09-09 12:55 -0400 C-Reactive Protein 30.10 (H) <1.00 mg/dL 09/10/2023 12:55 PM EDT [facility] Complete Blood Count, with D ifferentialon 09-10-2023 Basophils Auto (Bld) [#/Vol] 0.07 [facility] 09-09 04:09 -0400 Abs Basophils Auto 0.07 0.00 - 0.20 Thou/uL 09/10/2023 4:09 AM T [facility] Basophils/100 WBC Auto (Bld) 0.7 % [facility] 09-09 04:09 -0400 Basophils Auto 0.7 % 09/10/2023 4:09 AM T [facility] Eosinophils Auto (Bld) [#/Vol] 0.20 [facility] 09-09 04:09 -0400 Abs Eosinophils Auto 0.20 0.00 - 0.70 Thou/uL 09/10/2023 4:09 AM EDT [facility] Eosinophils/10 0 WBC Auto (Bld) 1.9 % [facility] 09-09 04:09 -0400 Eosinophils Auto 1.9 % 09/10/2023 4:09 AM EDT [facility] RBC Auto (Bld) [#/Vol] 3.07 Low [facility] 09-09 04:09 -0400 Red Blood Cell Count 3.07 (L) 4.00 - 5.40 Mil/uL 09/10/2023 4:09 AM T [facility] Hematocrit Auto (Bld) [Volume fraction] 28.4 % Low 35.0 - 47.0 % [facility] 09-09 04:09 -0400 Hematocrit 28.4 (L) 35.0 - 47.0 % 09/10/2023 4:09 AM EDT [facility] Hemoglobin (Bld) [Mass/Vol] 9.1 g/dL Low 11.7 - 15.7 g/dL [facility] 09-09 04:09 -0400 Hemoglobin 9.1 (L) 11.7 - 15.7 g/dL 09/10/2023 4:09 AM T [facility] Lymphocytes Auto (Bld) [#/Vol] 1.36 Low [facility] 09-09 04:09 -0400 Abs Lymphocytes Auto 1.36 (L) 1.50 - 4.50 Thou/uL 09/10/2023 4:09 AM EDT [facility] Lymphocytes/10 0 WBC Auto (Bld) 12.7 % [facility] 09-09 04:09 -0400 Lymphocytes Auto 12.7 % 09/10/2023 4:09 AM T [facility] MCH Auto (RBC) [Entitic mass] 29.6 pg 26.0 - 34.0 pg [facility] 09-09 04:09 -0400 MCH 29.6 26.0 - 34.0 pg 09/10/2023 4:09 AM EDT [facility] MCHC Auto (RBC) [Mass/Vol] 32.0 g/dL 30.0 - 36.0 g/dL [facility] 09-09 04:09 0400 MCHC 32.0 30.0 - 36.0 g/dL 09/10/2023 4:09 AM EDT [facility] MCV Auto (RBC) [Entitic vol] 93 fL 80 - 100 fL [facility] 09-09 04:0400 MCV 93 80 - 100 fL 09/10/2023 4:09 AM EDT [facility] Monocytes Auto (Bld) [#/Vol] 1.23 [facility] 09-09 04:09 0400 Abs Monocytes Auto 1.23 0.20 - 1.50 Thou/uL 09/10/2023 4:09 AM EDT [facility] Monocytes/100 WBC Auto (Bld) 11.5 % [facility] 09-09 04:09 0400 Monocytes Auto 11.5 % 09/10/2023 4:09 AM EDT [facility] Neutrophils Auto (Bld) [#/Vol] 7.41 [facility] 09-09 04:09 0400 Abs Neutrophils Auto 7.41 2.00 - 7.50 Thou/uL 09/10/2023 4:09 AM EDT [facility] Neutrophils/10 0 WBC Auto (Bld) 69.0 % [facility] 09-09 04:0400 Neutrophils Auto 69.0 % 09/10/2023 4:09 AM EDT [facility] Platelet mean volume Auto (Bld) [Entitic vol] 11.5 fL 7.5 - 12.5 fL [facility] 09-09 04:0400 MPV 11.5 7.5 - 12.5 fL 09/10/2023 4:09 AM EDT [facility] Platelets Auto (Bld) [#/Vol] 276 [facility] 09-09 04:09 0400 Platelet Count 276 150 - 450 Thou/uL 09/10/2023 4:09 AM EDT [facility] Erythrocyte distribution width Auto (RBC) [Ratio] 17.5 % High 11.5 - 14.5 % [facility] 09-09 04:09 -0400 RDW 17.5 (H) 11.5 - 14.5 % 09/10/2023 4:09 AM EDT [facility] WBC Auto (Bld) [#/Vol] 10.7 [facility] 09-09 04:09 -0400 White Blood Cell Count 10.7 4.0 - 11.0 Thou/uL 09/10/2023 4:09 AM EDT [facility] Immature granulocytes/1 00 WBC Auto (Bld) 4.2 % [facility] 09-09 04:09 -0400 Immature Granulocytes 4.2 % 09/10/2023 4:09 AM EDT [facility] Immature granulocytes Auto (Bld) [#/Vol] 0.45 High [facility] 09-09 04:09 -0400 Abs Immature Granulocytes 0.45 (H) 0.00 - 0.10 Thou/uL 09/10/2023 4:09 AM EDT [facility] Emergency Department (DEEDS) variableson 09-10-2023 Interpretation and review of laboratory results Abnormal [facility] 09-09 13:24 -0400 Interpretation and review of laboratory results Abnormal [facility] 09-09 08:38 -0400 LIPASEon 09-10-2023 Lipase [Catalytic activity/Vol] 56 U/L High 12 - 53 U/L [facility] 09-09 08:38 -0400 Lipase 56 (H) 12 - 53 U/L 09/10/2023 8:38 AM EDT [facility] Lactic Acid, Plasma (Routine )on 09-10-2023 Lactate [Moles/Vol] 1.0 mmol/L 0.5 - 1.9 mmol/L [facility] 09-09 04:42 -0400 Lactic Acid 1.0 0.5 - 1.9 mmol/L 09/10/2023 4:42 AM EDT [facility] MAGNESIUMon 04-08-2024 Magnesium [Mass/Vol] 2.1 mg/dL 1.6 - 2.6 mg/dL [facility] 09-09 04:46 -0400 Magnesium 2.1 1.6 - 2.6 mg/dL 09/10/2023 4:46 AM EDT [facility] No Panel Informationon 09-09 [facility] 09-09 13:24 -0400 [facility] 09-09 08:38 -0400 [facility] 09-09 04:46 -0400 PHOSPHORUSon 09-10-2023 Phosphate [Mass/Vol] 2.4 mg/dL 2.4 - 5.1 mg/dL [facility] 09-09 04:46 -0400 Phosphorus 2.4 2.4 - 5.1 mg/dL 09/10/2023 4:46 AM EDT [facility] POCT Glucose, Fingerstickon 09-10-2023 Glucose (Bld) [Mass/Vol] 157 mg/dL High 65 - 99 mg/dL [facility] 09-09 23:53 -0400 POC Glucose 157 (H) 65 - 99 mg/dL 09/10/2023 11:53 PM EDT [facility] Glucose (Bld) [Mass/Vol] 124 mg/dL High 65 - 99 mg/dL [facility] 09-09 19:57 -0400 POC Glucose 124 (H) 65 - 99 mg/dL 09/10/2023 7:57 PM EDT [facility] Glucose (Bld) [Mass/Vol] 114 mg/dL High 65 - 99 mg/dL [facility] 09-09 17:06 -0400 POC Glucose 114 (H) 65 - 99 mg/dL 09/10/2023 5:06 PM EDT [facility] Glucose (Bld) [Mass/Vol] 118 mg/dL High 65 - 99 mg/dL [facility] 09-09 11:44 -0400 POC Glucose 118 (H) 65 - 99 mg/dL 09/10/2023 11:44 AM EDT [facility] Glucose (Bld) [Mass/Vol] 104 mg/dL High 65 - 99 mg/dL [facility] 09-09 07:44 -0400 POC Glucose 104 (H) 65 - 99 mg/dL 09/10/2023 7:44 AM EDT [facility] Glucose (Bld) [Mass/Vol] 102 mg/dL High 65 - 99 mg/dL [facility] 09-09 04:12 -0400 POC Glucose 102 (H) 65 - 99 mg/dL 09/10/2023 4:12 AM EDT [facility] Glucose (Bld) [Mass/Vol] 135 mg/dL High 65 - 99 mg/dL [facility] 09-09 00:07 -0400 POC Glucose 135 (H) 65 - 99 mg/dL 09/10/2023 12:07 AM EDT [facility] Interpretation and review of laboratory results Abnormal [facility] 09-09 23:53 -0400 [facility] 09-09 23:53 -0400 Interpretation and review of laboratory results Abnormal [facility] 09-09 19:57 -0400 [facility] 09-09 19:57 -0400 Interpretation and review of laboratory results Abnormal [facility] 09-09 17:06 -0400 [facility] 09-09 17:06 -0400 Interpretation and review of laboratory results Abnormal [facility] 09-09 11:44 -0400 [facility] 09-09 11:44 -0400 Interpretation and review of laboratory results Abnormal [facility] 09-09 00:07 -0400 [facility] 09-09 00:07 -0400 Sed Rateon 09-10-2023 ESR Westergren method (Bld) [Velocity] 84 High [facility] 09-09 13:24 -0400 Sedimentation Rate 84 (H) 0 - 20 MM/HR 09/10/2023 1:24 PM EDT [facility] BASIC METABOLIC PANELon 04-0 Urea nitrogen/Creat inine [Mass ratio] Not calculated [facility] 09-08 05:48 -0400 BUN/Creatinine Ratio Not calculated 10.0 - 25.0 Ratio 09/09/2023 5:48 AM EDT [facility] Calcium [Mass/Vol] 9.5 mg/dL 8.7 - 10.5 mg/dL [facility] 09-08 05:48 -0400 Calcium 9.5 8.7 - 10.5 mg/dL 09/09/2023 5:48 AM EDT [facility] Chloride [Moles/Vol] 99 mmol/L 98 - 107 mmol/L [facility] 09-08 05:48 -0400 Chloride 99 98 - 107 mmol/L 09/09/2023 5:48 AM EDT [facility] CO2 [Moles/Vol] 27 mmol/L 20 - 31 mmol/L [facility] 09-08 05:48 -0400 CO2 27 20 - 31 mmol/L 09/09/2023 5:48 AM EDT [facility] Creatinine [Mass/Vol] 0.5 mg/dL Low 0.6 - 1.0 mg/dL [facility] 09-08 05:48 -0400 Creatinine 0.5 (L) 0.6 - 1.0 mg/dL 09/09/2023 5:48 AM EDT [facility] Glucose [Mass/Vol] 106 mg/dL 74 - 106 mg/dL [facility] 09-08 05:48 -0400 Glucose 106 74 - 106 mg/dL 09/09/2023 5:48 AM EDT [facility] Comment on above: Fasting: <100 mg/dL, Non-Fasting: <200 m g/dL (ADA 2005) Potassium [Moles/Vol] 3.1 mmol/L Low 3.4 - 4.5 mmol/L [facility] 09-08 05:48 -0400 Potassium 3.1 (L) 3.4 - 4.5 mmol/L 09/09/2023 5:48 AM EDT [facility] Sodium [Moles/Vol] 135 mmol/L Low 136 - 145 mmol/L [facility] 09-08 05:48 -0400 Sodium 135 (L) 136 - 145 mmol/L 09/09/2023 5:48 AM EDT [facility] Urea nitrogen [Mass/Vol] <5 >NINF mg/dL Low 9 - 23 mg/dL [facility] 09-08 05:48 -0400 Blood Urea Nitrogen (BUN) <5 (L) 9 - 23 mg/dL 09/09/2023 5:48 AM EDT [facility] GFR/1.73 sq M.predicted CKD-EPI (S/P/Bld) [Vol rate/Area] <PINF >90 59 - PINF [facility] 09-08 05:48 -0400 eGFR >90 >59 09/09/2023 5:48 AM EDT [facility] Comment on above: CKD-EPI (2020) in mL/min/1.73 sq meters. Anion gap (Bld) [Moles/Vol] 9 5 - 15 [facility] 09-08 05:48 -0400 Anion Gap 9 5 - 15 09/09/2023 5:48 AM EDT [facility] Complete Blood Count, with D ifferentialon 09-09-2023 Basophils Auto (Bld) [#/Vol] 0.1 [facility] 09-08 05:58 -0400 Abs Basophils Man 0.1 0.0 - 0.2 Thou/uL 09/09/2023 5:58 AM EDT [facility] Basophils/100 WBC Auto (Bld) 1 % [facility] 09-08 05:58 -0400 Basophils Man 1 % 09/09/2023 5:58 AM EDT [facility] RBC Auto (Bld) [#/Vol] 3.31 Low [facility] 09-08 05:58 -0400 Red Blood Cell Count 3.31 (L) 4.00 - 5.40 Mil/uL 09/09/2023 5:20 AM EDT [facility] Hematocrit Auto (Bld) [Volume fraction] 30.7 % Low 35.0 - 47.0 % [facility] 09-08 05:58 -0400 Hematocrit 30.7 (L) 35.0 - 47.0 % 09/09/2023 5:20 AM EDT [facility] Hemoglobin (Bld) [Mass/Vol] 9.9 g/dL Low 11.7 - 15.7 g/dL [facility] 09-08 05:58 -0400 Hemoglobin 9.9 (L) 11.7 - 15.7 g/dL 09/09/2023 5:20 AM EDT [facility] Lymphocytes Auto (Bld) [#/Vol] 1.2 Low [facility] 09-08 05:58 -0400 Abs Lymphocytes Man 1.2 (L) 1.5 - 4.5 Thou/uL 09/09/2023 5:58 AM EDT [facility] Lymphocytes/10 0 WBC Auto (Bld) 12 % [facility] 09-08 05:58 -0400 Lymphocytes Man 12 % 09/09/2023 5:58 AM EDT [facility] MCH Auto (RBC) [Entitic mass] 29.9 pg 26.0 - 34.0 pg [facility] 09-08 05:58 -0400 MCH 29.9 26.0 - 34.0 pg 09/09/2023 5:20 AM EDT [facility] MCHC Auto (RBC) [Mass/Vol] 32.2 g/dL 30.0 - 36.0 g/dL [facility] 09-08 05:58 -0400 MCHC 32.2 30.0 - 36.0 g/dL 09/09/2023 5:20 AM EDT [facility] MCV Auto (RBC) [Entitic vol] 93 fL 80 - 100 fL [facility] 09-08 05:58 -0400 MCV 93 80 - 100 fL 09/09/2023 5:20 AM EDT [facility] Metamyelocytes /100 WBC Manual cnt (Bld) 1 % [facility] 09-08 05:58 -0400 Metamyelocytes 1 % 09/09/2023 5:58 AM EDT [facility] Monocytes Auto (Bld) [#/Vol] 1.1 [facility] 09-08 05:58 -0400 Abs Monocytes Man 1.1 0.2 - 1.5 Thou/uL 09/09/2023 5:58 AM EDT [facility] Monocytes/100 WBC Auto (Bld) 11 % [facility] 09-08 05:58 -0400 Monocytes Man 11 % 09/09/2023 5:58 AM EDT [facility] Myelocytes/100 WBC Manual cnt (Bld) 2 % [facility] 09-08 05:58 -0400 Myelocytes 2 % 09/09/2023 5:58 AM EDT [facility] Neutrophils Auto (Bld) [#/Vol] 7.1 [facility] 09-08 05:58 -0400 Abs Neutrophils Count (ANC) 7.1 2.0 - 7.5 Thou/uL 09/09/2023 5:58 AM EDT [facility] Band form neutrophils Manual cnt (Bld) [#/Vol] 3 % [facility] 09-08 05:58 -0400 Bands Man 3 % 09/09/2023 5:58 AM EDT [facility] Nucleated RBC/100 WBC Auto (Bld) [Ratio] 0.2 High [facility] 09-08 05:58 -0400 nRBC 0.2 (H) 0.0 - 0.1 /100 WBC 09/09/2023 5:20 AM EDT [facility] Platelet mean volume Auto (Bld) [Entitic vol] 11.8 fL 7.5 - 12.5 fL [facility] 09-08 05:58 -0400 MPV 11.8 7.5 - 12.5 fL 09/09/2023 5:20 AM EDT [facility] Platelets Auto (Bld) [#/Vol] 142 Low [facility] 09-08 05:58 -0400 Platelet Count 142 (L) 150 - 450 Thou/uL 09/09/2023 5:20 AM EDT [facility] Erythrocyte distribution width Auto (RBC) [Ratio] 17.2 % High 11.5 - 14.5 % [facility] 09-08 05:58 -0400 RDW 17.2 (H) 11.5 - 14.5 % 09/09/2023 5:20 AM EDT [facility] WBC Auto (Bld) [#/Vol] 9.7 [facility] 09-08 05:58 -0400 White Blood Cell Count 9.7 4.0 - 11.0 Thou/uL 09/09/2023 5:20 AM EDT [facility] Nucleated RBC Auto (Bld) [#/Vol] 0.02 [facility] 09-08 05:58 -0400 nRBC, Absolute 0.02 0.00 - 0.02 Thou/uL 09/09/2023 5:20 AM EDT [facility] Segmented neutrophils/10 0 WBC (Bld) 70 % [facility] 09-08 05:58 -0400 Neutrophils Man 70 % 09/09/2023 5:58 AM EDT [facility] Myelocytes Manual cnt (Bld) [#/Vol] 0.2 High 0 Thou/uL [facility] 09-08 05:58 -0400 Abs Myelocytes 0.2 (H) 0 Thou/uL 09/09/2023 5:58 AM EDT [facility] Metamyelocytes Manual cnt (Bld) [#/Vol] 0.1 High 0 Thou/uL [facility] 09-08 05:58 -0400 Abs Metamyelocytes 0.1 (H) 0 Thou/uL 09/09/2023 5:58 AM EDT [facility] Polychromasia LM Ql (Bld) Occasional [facility] 09-08 05:58 -0400 Polychromasia Occasional 09/09/2023 5:58 AM EDT [facility] Interpretation and review of laboratory results Abnormal [facility] 09-08 05:58 -0400 MAGNESIUMon 09-09-2023 Magnesium [Mass/Vol] 2.4 mg/dL 1.6 - 2.6 mg/dL [facility] 09-08 05:48 -0400 Magnesium 2.4 1.6 - 2.6 mg/dL 09/09/2023 5:48 AM EDT [facility] No Panel Informationon 09-08 [facility] 09-08 05:58 -0400 PHOSPHORUSon 09-09-2023 Phosphate [Mass/Vol] 2.8 mg/dL 2.4 - 5.1 mg/dL [facility] 09-08 05:48 -0400 Phosphorus 2.8 2.4 - 5.1 mg/dL 09/09/2023 5:48 AM EDT [facility] POCT Glucose, Fingerstickon 09-09-2023 Glucose (Bld) [Mass/Vol] 132 mg/dL High 65 - 99 mg/dL [facility] 09-08 20:16 -0400 POC Glucose 132 (H) 65 - 99 mg/dL 09/09/2023 8:16 PM EDT [facility] Glucose (Bld) [Mass/Vol] 110 mg/dL High 65 - 99 mg/dL [facility] 09-08 16:00 -0400 POC Glucose 110 (H) 65 - 99 mg/dL 09/09/2023 4:00 PM EDT [facility] Glucose (Bld) [Mass/Vol] 121 mg/dL High 65 - 99 mg/dL [facility] 09-08 11:35 -0400 POC Glucose 121 (H) 65 - 99 mg/dL 09/09/2023 11:35 AM EDT [facility] Glucose (Bld) [Mass/Vol] 125 mg/dL High 65 - 99 mg/dL [facility] 09-08 08:23 -0400 POC Glucose 125 (H) 65 - 99 mg/dL 09/09/2023 8:23 AM EDT [facility] Glucose (Bld) [Mass/Vol] 122 mg/dL High 65 - 99 mg/dL [facility] 09-08 04:03 -0400 POC Glucose 122 (H) 65 - 99 mg/dL 09/09/2023 4:03 AM EDT [facility] Interpretation and review of laboratory results Abnormal [facility] 09-08 20:16 -0400 [facility] 09-08 20:16 -0400 Interpretation and review of laboratory results Abnormal [facility] 09-08 16:00 -0400 [facility] 09-08 16:00 -0400 Interpretation and review of laboratory results Abnormal [facility] 09-08 11:35 -0400 [facility] 09-08 11:35 -0400 Interpretation and review of laboratory results Abnormal [facility] 09-08 08:23 -0400 [facility] 09-08 08:23 -0400 Interpretation and review of laboratory results Abnormal [facility] 09-08 04:03 -0400 [facility] 09-08 04:03 -0400 Partial Thromboplastin Time (PTT)on 09-09-2023 aPTT Coag (PPP) [Time] 76 High [facility] 09-08 00:41 -0400 Partial Thromboplastin Time (PTT) 76 (H) 26 - 37 seconds 09/09/2023 12:41 AM EDT [facility] Anticoagulant ARGATROBAN (OR BIVALIRUDIN) [facility] 09-08 00:41 -0400 Anticoagulant ARGATROBAN (OR BIVALIRUDIN) 09/08/2023 8:43 PM EDT [facility] Interpretation and review of laboratory results Abnormal [facility] 09-08 00:41 -0400 [facility] 09-08 00:41 -0400 BLOOD CULTURE Peripheralon 0 09-08-2023 Microorganism identified Cx Nom (Specimen) Sterile after 5 days [facility] 09-12 09:43 -0400 Culture Sterile after 5 days 09/13/2023 9:43 AM EDT [facility] 09-12 09:43 -0400 Complete Blood Count, with D ifferential (Early AM)on 09-08-2023 Basophils Auto (Bld) [#/Vol] 0.06 [facility] 09-07 05:20 -0400 Abs Basophils Auto 0.06 0.00 - 0.20 Thou/uL 09/08/2023 5:20 AM EDT [facility] Basophils/100 WBC Auto (Bld) 0.6 % [facility] 09-07 05:20 -0400 Basophils Auto 0.6 % 09/08/2023 5:20 AM EDT [facility] Eosinophils Auto (Bld) [#/Vol] 0.10 [facility] 09-07 05:20 -0400 Abs Eosinophils Auto 0.10 0.00 - 0.70 Thou/uL 09/08/2023 5:20 AM EDT [facility] Eosinophils/10 0 WBC Auto (Bld) 1.1 % [facility] 09-07 05:20 -0400 Eosinophils Auto 1.1 % 09/08/2023 5:20 AM EDT [facility] RBC Auto (Bld) [#/Vol] 2.97 Low [facility] 09-07 05:20 -0400 Red Blood Cell Count 2.97 (L) 4.00 - 5.40 Mil/uL 09/08/2023 5:20 AM EDT [facility] Hematocrit Auto (Bld) [Volume fraction] 27.2 % Low 35.0 - 47.0 % [facility] 09-07 05:20 -0400 Hematocrit 27.2 (L) 35.0 - 47.0 % 09/08/2023 5:20 AM EDT [facility] Hemoglobin (Bld) [Mass/Vol] 9.1 g/dL Low 11.7 - 15.7 g/dL [facility] 09-07 05:20 -0400 Hemoglobin 9.1 (L) 11.7 - 15.7 g/dL 09/08/2023 5:20 AM EDT [facility] Lymphocytes Auto (Bld) [#/Vol] 1.02 Low [facility] 09-07 05:20 -0400 Abs Lymphocytes Auto 1.02 (L) 1.50 - 4.50 Thou/uL 09/08/2023 5:20 AM EDT [facility] Lymphocytes/10 0 WBC Auto (Bld) 10.9 % [facility] 09-07 05:20 -0400 Lymphocytes Auto 10.9 % 09/08/2023 5:20 AM EDT [facility] MCH Auto (RBC) [Entitic mass] 30.6 pg 26.0 - 34.0 pg [facility] 09-07 05:20 -0400 MCH 30.6 26.0 - 34.0 pg 09/08/2023 5:20 AM EDT [facility] MCHC Auto (RBC) [Mass/Vol] 33.5 g/dL 30.0 - 36.0 g/dL [facility] 09-07 05:20 -0400 MCHC 33.5 30.0 - 36.0 g/dL 09/08/2023 5:20 AM EDT [facility] MCV Auto (RBC) [Entitic vol] 92 fL 80 - 100 fL [facility] 09-07 05:20 -0400 MCV 92 80 - 100 fL 09/08/2023 5:20 AM EDT [facility] Monocytes Auto (Bld) [#/Vol] 1.23 [facility] 09-07 05:20 -0400 Abs Monocytes Auto 1.23 0.20 - 1.50 Thou/uL 09/08/2023 5:20 AM EDT [facility] Monocytes/100 WBC Auto (Bld) 13.1 % [facility] 09-07 05:20 -0400 Monocytes Auto 13.1 % 09/08/2023 5:20 AM EDT [facility] Neutrophils Auto (Bld) [#/Vol] 6.65 [facility] 09-07 05:20 -0400 Abs Neutrophils Auto 6.65 2.00 - 7.50 Thou/uL 09/08/2023 5:20 AM EDT [facility] Neutrophils/10 0 WBC Auto (Bld) 70.9 % [facility] 09-07 05:20 -0400 Neutrophils Auto 70.9 % 09/08/2023 5:20 AM EDT [facility] Nucleated RBC/100 WBC Auto (Bld) [Ratio] 0.4 High [facility] 09-07 05:20 -0400 nRBC 0.4 (H) 0.0 - 0.1 /100 WBC 09/08/2023 5:20 AM EDT [facility] Platelet mean volume Auto (Bld) [Entitic vol] 11.0 fL 7.5 - 12.5 fL [facility] 09-07 05:20 -0400 MPV 11.0 7.5 - 12.5 fL 09/08/2023 5:20 AM EDT [facility] Platelets Auto (Bld) [#/Vol] 86 Low [facility] 09-07 05:20 -0400 Platelet Count 86 (L) 150 - 450 Thou/uL 09/08/2023 5:20 AM T [facility] Erythrocyte distribution width Auto (RBC) [Ratio] 17.1 % High 11.5 - 14.5 % [facility] 09-07 05:20 -0400 RDW 17.1 (H) 11.5 - 14.5 % 09/08/2023 5:20 AM EDT [facility] WBC Auto (Bld) [#/Vol] 9.4 [facility] 09-07 05:20 -0400 White Blood Cell Count 9.4 4.0 - 11.0 Thou/uL 09/08/2023 5:20 AM T [facility] Nucleated RBC Auto (Bld) [#/Vol] 0.04 High [facility] 09-07 05:20 -0400 nRBC, Absolute 0.04 (H) 0.00 - 0.02 Thou/uL 09/08/2023 5:20 AM EDT [facility] Immature Platelet Fraction 9.8 % High 1.2 - 8.6 % [facility] 09-07 05:20 -0400 Immature Platelet Fraction 9.8 (H) 1.2 - 8.6 % 09/08/2023 5:20 AM EDT [facility] Immature granulocytes/1 00 WBC Auto (Bld) 3.4 % [facility] 09-07 05:20 -0400 Immature Granulocytes 3.4 % 09/08/2023 5:20 AM EDT [facility] Immature granulocytes Auto (Bld) [#/Vol] 0.32 High [facility] 09-07 05:20 -0400 Abs Immature Granulocytes 0.32 (H) 0.00 - 0.10 Thou/uL 09/08/2023 5:20 AM EDT [facility] Complete Blood Count, withou t Differential (Routine)on 09-08-2023 RBC Auto (Bld) [#/Vol] 2.84 Low [facility] 09-07 15:57 -0400 Red Blood Cell Count 2.84 (L) 4.00 - 5.40 Mil/uL 09/08/2023 3:57 PM EDT [facility] Hematocrit Auto (Bld) [Volume fraction] 26.0 % Low 35.0 - 47.0 % [facility] 09-07 15:57 -0400 Hematocrit 26.0 (L) 35.0 - 47.0 % 09/08/2023 3:57 PM EDT [facility] Hemoglobin (Bld) [Mass/Vol] 8.6 g/dL Low 11.7 - 15.7 g/dL [facility] 09-07 15:57 -0400 Hemoglobin 8.6 (L) 11.7 - 15.7 g/dL 09/08/2023 3:57 PM EDT [facility] MCH Auto (RBC) [Entitic mass] 30.3 pg 26.0 - 34.0 pg [facility] 09-07 15:57 -0400 MCH 30.3 26.0 - 34.0 pg 09/08/2023 3:57 PM EDT [facility] MCHC Auto (RBC) [Mass/Vol] 33.1 g/dL 30.0 - 36.0 g/dL [facility] 09-07 15:57 -0400 MCHC 33.1 30.0 - 36.0 g/dL 09/08/2023 3:57 PM EDT [facility] MCV Auto (RBC) [Entitic vol] 92 fL 80 - 100 fL [facility] 09-07 15:57 -0400 MCV 92 80 - 100 fL 09/08/2023 3:57 PM EDT [facility] Platelet mean volume Auto (Bld) [Entitic vol] 11.2 fL 7.5 - 12.5 fL [facility] 09-07 15:57 -0400 MPV 11.2 7.5 - 12.5 fL 09/08/2023 3:57 PM EDT [facility] Platelets Auto (Bld) [#/Vol] 98 Low [facility] 09-07 15:57 -0400 Platelet Count 98 (L) 150 - 450 Thou/uL 09/08/2023 3:57 PM EDT [facility] Erythrocyte distribution width Auto (RBC) [Ratio] 17.2 % High 11.5 - 14.5 % [facility] 09-07 15:57 -0400 RDW 17.2 (H) 11.5 - 14.5 % 09/08/2023 3:57 PM EDT [facility] WBC Auto (Bld) [#/Vol] 10.2 [facility] 09-07 15:57 -0400 White Blood Cell Count 10.2 4.0 - 11.0 Thou/uL 09/08/2023 3:57 PM EDT [facility] Immature Platelet Fraction 12.3 % High 1.2 - 8.6 % [facility] 09-07 15:57 -0400 Immature Platelet Fraction 12.3 (H) 1.2 - 8.6 % 09/08/2023 3:57 PM EDT [facility] Comprehensive Metabolic Pane tammie 09-08-2023 ALT [Catalytic activity/Vol] 11 U/L 7 - 35 U/L [facility] 09-07 05:32 -0400 Alanine Aminotrans (ALT) 11 7 - 35 U/L 09/08/2023 5:32 AM EDT [facility] Albumin [Mass/Vol] 3.6 g/dL 3.4 - 4.8 g/dL [facility] 09-07 05:32 -0400 Albumin 3.6 3.4 - 4.8 g/dL 09/08/2023 5:32 AM EDT [facility] ALP [Catalytic activity/Vol] 153 U/L High 32 - 122 U/L [facility] 09-07 05:32 -0400 Alkaline Phosphatase 153 (H) 32 - 122 U/L 09/08/2023 5:32 AM EDT [facility] AST [Catalytic activity/Vol] 45 U/L High NINF - 34 U/L [facility] 09-07 05:32 -0400 Aspartate Aminotrans (AST) 45 (H) <34 U/L 09/08/2023 5:32 AM EDT [facility] Bilirubin [Mass/Vol] 0.9 mg/dL 0.3 - 1.2 mg/dL [facility] 09-07 05:32 -0400 Bilirubin, Total 0.9 0.3 - 1.2 mg/dL 09/08/2023 5:32 AM EDT [facility] Urea nitrogen/Creat inine [Mass ratio] Not calculated [facility] 09-07 05:32 -0400 BUN/Creatinine Ratio Not calculated 10.0 - 25.0 Ratio 09/08/2023 5:32 AM EDT [facility] Calcium [Mass/Vol] 8.6 mg/dL Low 8.7 - 10.5 mg/dL [facility] 09-07 05:32 -0400 Calcium 8.6 (L) 8.7 - 10.5 mg/dL 09/08/2023 5:32 AM EDT [facility] Chloride [Moles/Vol] 99 mmol/L 98 - 107 mmol/L [facility] 09-07 05:32 -0400 Chloride 99 98 - 107 mmol/L 09/08/2023 5:32 AM EDT [facility] CO2 [Moles/Vol] 29 mmol/L 20 - 31 mmol/L [facility] 09-07 05:32 -0400 CO2 29 20 - 31 mmol/L 09/08/2023 5:32 AM EDT [facility] Creatinine [Mass/Vol] 0.4 mg/dL Low 0.6 - 1.0 mg/dL [facility] 09-07 05:32 -0400 Creatinine 0.4 (L) 0.6 - 1.0 mg/dL 09/08/2023 5:32 AM T [facility] Glucose [Mass/Vol] 95 mg/dL 74 - 106 mg/dL [facility] 09-07 05:32 -0400 Glucose 95 74 - 106 mg/dL 09/08/2023 5:32 AM EDT [facility] Comment on above: Fasting: <100 mg/dL, Non-Fasting: <200 m g/dL (ADA 2005) Potassium [Moles/Vol] 3.4 mmol/L 3.4 - 4.5 mmol/L [facility] 09-07 05:32 -0400 Potassium 3.4 3.4 - 4.5 mmol/L 09/08/2023 5:32 AM [facility] Protein [Mass/Vol] 5.6 g/dL Low 5.7 - 8.2 g/dL [facility] 09-07 05:32 -0400 Protein, Total 5.6 (L) 5.7 - 8.2 g/dL 09/08/2023 5:32 AM T [facility] Sodium [Moles/Vol] 134 mmol/L Low 136 - 145 mmol/L [facility] 09-07 05:32 -0400 Sodium 134 (L) 136 - 145 mmol/L 09/08/2023 5:32 AM T [facility] Urea nitrogen [Mass/Vol] <5 >NINF mg/dL Low 9 - 23 mg/dL [facility] 09-07 05:32 -0400 Blood Urea Nitrogen (BUN) <5 (L) 9 - 23 mg/dL 09/08/2023 5:32 AM T [facility] GFR/1.73 sq M.predicted CKD-EPI (S/P/Bld) [Vol rate/Area] <PINF >90 59 - PINF [facility] 09-07 05:32 -0400 eGFR >90 >59 09/08/2023 5:32 AM T [facility] Comment on above: CKD-EPI (2020) in mL/min/1.73 sq meters. Globulin Calc (S) [Mass/Vol] 2.0 g/dL 1.5 - 3.9 g/dL [facility] 09-07 05:32 -0400 Globulin 2.0 1.5 - 3.9 g/dL 09/08/2023 5:32 AM EDT [facility] Albumin/Globul in [Mass ratio] 1.8 [facility] 09-07 05:32 -0400 Albumin/Globuli n Ratio 1.8 1.5 - 2.5 Ratio 09/08/2023 5:32 AM EDT [facility] Anion gap (Bld) [Moles/Vol] 6 5 - 15 [facility] 09-07 05:32 -0400 Anion Gap 6 5 - 15 09/08/2023 5:32 AM EDT [facility] Emergency Department (DEEDS) variableson 09-08-2023 Interpretation and review of laboratory results Abnormal [facility] 09-07 05:32 -0400 ETHAN Archive for reference on ly CTon 09-08-2023 This order has been auto-finalized and does not contain a result. [facility] 09-07 01:41 -0400 This order has been auto-finalized and does not contain a result. Heparin Assay (Anti Xa)on LMW Heparin Chromogenic method Qn (PPP) 0.32 IU/mL [facility] 09-07 10:37 -0400 Anti Xa 0.32 IU/mL 09/08/2023 10:37 AM EDT [facility] Comment on above: (NOTE) Heparin Thromboembolic/Standard/Full Dose Protocol: Therapeutic Range: Age 18+: 0.30 - 0.70 IU/mL Age 0 - 17: 0.35 - 0.70 IU/mL Heparin Cardiac/Low Dose Protocol: Therapeutic Range: 0.30 - 0.50 IU/mL Low Molecular Weight Heparin: Therapeutic Range: Age 18+: 0.50 - 1.50 IU/mL Age 0 - 17: 0.50 - 1.00 IU/mL Anticoagulant IV HEPARIN, UNFRACTIONATED [facility] 09-07 10:37 -0400 Anticoagulant IV HEPARIN, UNFRACTIONATED 09/08/2023 3:58 AM EDT [facility] 09-07 10:37 -0400 Heparin PF4 Ab Screen Reflex Serotonin Release Assayon 09-08-2023 Heparin PF4 Antibody Negative Negative [facility] 09-08 10:14 -0400 Heparin PF4 Antibody Negative Negative 09/09/2023 10:14 AM EDT [facility] Comment on above: Negative Screen, reflex testing not eric cated. [facility] 09-08 10:14 -0400 MAGNESIUMon 09-08-2023 Magnesium [Mass/Vol] 2.0 mg/dL 1.6 - 2.6 mg/dL [facility] 09-07 05:32 -0400 Magnesium 2.0 1.6 - 2.6 mg/dL 09/08/2023 5:32 AM EDT [facility] No Panel Informationon 09-07 [facility] 09-07 05:32 -0400 PHOSPHORUSon 09-08-2023 Phosphate [Mass/Vol] 2.9 mg/dL 2.4 - 5.1 mg/dL [facility] 09-07 05:32 -0400 Phosphorus 2.9 2.4 - 5.1 mg/dL 09/08/2023 5:32 AM EDT [facility] POCT Glucose, Fingerstickon 09-08-2023 Glucose (Bld) [Mass/Vol] 119 mg/dL High 65 - 99 mg/dL [facility] 09-08 00:05 -0400 POC Glucose 119 (H) 65 - 99 mg/dL 09/09/2023 12:05 AM EDT [facility] Glucose (Bld) [Mass/Vol] 119 mg/dL High 65 - 99 mg/dL [facility] 09-07 20:13 -0400 POC Glucose 119 (H) 65 - 99 mg/dL 09/08/2023 8:13 PM EDT [facility] Glucose (Bld) [Mass/Vol] 110 mg/dL High 65 - 99 mg/dL [facility] 09-07 16:23 -0400 POC Glucose 110 (H) 65 - 99 mg/dL 09/08/2023 4:23 PM EDT [facility] Glucose (Bld) [Mass/Vol] 130 mg/dL High 65 - 99 mg/dL [facility] 09-07 11:46 -0400 POC Glucose 130 (H) 65 - 99 mg/dL 09/08/2023 11:46 AM EDT [facility] Glucose (Bld) [Mass/Vol] 87 mg/dL 65 - 99 mg/dL [facility] 09-07 08:03 -0400 POC Glucose 87 65 - 99 mg/dL 09/08/2023 8:03 AM EDT [facility] Interpretation and review of laboratory results Abnormal [facility] 09-07 20:13 -0400 [facility] 09-07 20:13 -0400 Interpretation and review of laboratory results Abnormal [facility] 09-07 16:23 -0400 [facility] 09-07 16:23 -0400 Interpretation and review of laboratory results Abnormal [facility] 09-07 11:46 -0400 [facility] 09-07 11:46 -0400 [facility] 09-07 08:03 -0400 Partial Thromboplastin Time (PTT)on 09-08-2023 aPTT Coag (PPP) [Time] 78 High [facility] 09-07 19:55 -0400 Partial Thromboplastin Time (PTT) 78 (H) 26 - 37 seconds 09/08/2023 7:55 PM EDT [facility] aPTT Coag (PPP) [Time] 50 High [facility] 09-07 05:13 -0400 Partial Thromboplastin Time (PTT) 50 (H) 26 - 37 seconds 09/08/2023 5:13 AM EDT [facility] Anticoagulant ARGATROBAN (OR BIVALIRUDIN) [facility] 09-07 19:55 -0400 Anticoagulant ARGATROBAN (OR BIVALIRUDIN) 09/08/2023 4:18 PM EDT [facility] Protime-INRon 09-08-2023 INR Coag (PPP) [Relative time] 1.5 [facility] 09-07 05:13 -0400 INR 1.5 09/08/2023 5:13 AM T [facility] Comment on above: INR Therapeutic Ranges: Standard dose an ticoagulant 2.0 to 3.0, High dose anticoagulant 2.5-3.5. PT Coag (PPP) [Time] 16.6 High [facility] 09-07 05:13 -0400 Prothrombin Time (PT) 16.6 (H) 10.0 - 13.5 seconds 09/08/2023 5:13 AM T [facility] Anticoagulant IV HEPARIN, UNFRACTIONATED [facility] 09-07 05:13 -0400 Anticoagulant IV HEPARIN, UNFRACTIONATED 09/08/2023 3:27 AM T [facility] Triglycerideson 09-08-2023 Triglyceride [Mass/Vol] 174 mg/dL High NINF - 150 mg/dL [facility] 09-07 05:32 -0400 Triglycerides 174 (H) <150 mg/dL 09/08/2023 5:32 AM EDT [facility] US Venous Duplex Legs-Bilate ral (DVT)on 09-08-2023 No evidence of acute deep vein thrombosis. [facility] 09-07 17:09 -0400 No evidence of acute deep vein thrombosis. CLINICAL INFORMATION: Rule out DVT COMPARISON: None. TECHNIQUE: Real-time scanning of the bilateral lower extremity deep venous systems was performed assessing ashraf scale appearance, color and duplex Doppler flow and compressibility . FINDINGS: The bilateral distal external iliac veins demonstrate normal color flow. The common femoral, proximal deep femoral, proximal greater saphenous, femoral and popliteal veins show normal color flow and compressibility . The visualized calf veins also demonstrate normal color flow and are compressible. No Alegre's cyst. RADIOLOGY [facility] 09-07 17:09 -0400 CLINICAL INFORMATION: Rule out DVT COMPARISON: None. TECHNIQUE: Real-time scanning of the bilateral lower extremity deep venous systems was performed assessing ashraf scale appearance, color and duplex Doppler flow and compressibility . FINDINGS: The bilateral distal external iliac veins demonstrate normal color flow. The common femoral, proximal deep femoral, proximal greater saphenous, femoral and popliteal veins show normal color flow and compressibility . The visualized calf veins also demonstrate normal color flow and are compressible. No Alegre's cyst. Madhu Rider MD - 09/08/2023 CLINICAL INFORMATION: Rule out DVT COMPARISON: None. TECHNIQUE: Real-time scanning of the bilateral lower extremity deep venous systems was performed assessing ashraf scale appearance, color and duplex Doppler flow and compressibility . FINDINGS: The bilateral distal external iliac veins demonstrate normal color flow. The common femoral, proximal deep femoral, proximal greater saphenous, femoral and popliteal veins show normal color flow and compressibility . The visualized calf veins also demonstrate normal color flow and are compressible. No Alegre's cyst. IMPRESSION: No evidence of acute deep vein thrombosis. [facility] 09-07 17:09 -0400 Madhu Rider MD - 09/08/2023 CLINICAL INFORMATION: Rule out DVT COMPARISON: None. TECHNIQUE: Real-time scanning of the bilateral lower extremity deep venous systems was performed assessing ashraf scale appearance, color and duplex Doppler flow and compressibility . FINDINGS: The bilateral distal external iliac veins demonstrate normal color flow. The common femoral, proximal deep femoral, proximal greater saphenous, femoral and popliteal veins show normal color flow and compressibility . The visualized calf veins also demonstrate normal color flow and are compressible. No Alegre's cyst. IMPRESSION: No evidence of acute deep vein thrombosis. Radiology Study observation (narrative) [facility] US Venous Duplex Legs-Bilate ral (DVT)Ordered By: Madhu Rider on 09-08-2023 [facility] Work Phone: 09-07 17:09 -0400 XR Chest 1 view-Portableon 0 09-08-2023 Similar to previous study. [facility] 09-07 14:26 -0400 Similar to previous study. CLINICAL INFORMATION: Hypoxia COMPARISON: CXR - 09/07/23. TECHNIQUE: AP view of the chest. FINDINGS: Heart/Mediastin um: The cardiac silhouette is unchanged. The mediastinal contours are relatively stable. Lungs: Persistent retrocardiac and right infrahilar/basi lar opacities, similar to previous study. No effusion is evident. Osseous Structures: No acute abnormalities. [facility] 09-07 14:26 -0400 CLINICAL INFORMATION: Hypoxia COMPARISON: CXR - 09/07/23. TECHNIQUE: AP view of the chest. FINDINGS: Heart/Mediastin um: The cardiac silhouette is unchanged. The mediastinal contours are relatively stable. Lungs: Persistent retrocardiac and right infrahilar/basi lar opacities, similar to previous study. No effusion is evident. Osseous Structures: No acute abnormalities. Yogesh Calvillo MD - 09/08/2023 CLINICAL INFORMATION: Hypoxia COMPARISON: CXR - 09/07/23. TECHNIQUE: AP view of the chest. FINDINGS: Heart/Mediastin um: The cardiac silhouette is unchanged. The mediastinal contours are relatively stable. Lungs: Persistent retrocardiac and right infrahilar/basi lar opacities, similar to previous study. No effusion is evident. Osseous Structures: No acute abnormalities. IMPRESSION: Similar to previous study. [facility] 09-07 14:26 -0400 Yogesh Calvillo MD - 09/08/2023 CLINICAL INFORMATION: Hypoxia COMPARISON: CXR - 09/07/23. TECHNIQUE: AP view of the chest. FINDINGS: Heart/Mediastin um: The cardiac silhouette is unchanged. The mediastinal contours are relatively stable. Lungs: Persistent retrocardiac and right infrahilar/basi lar opacities, similar to previous study. No effusion is evident. Osseous Structures: No acute abnormalities. IMPRESSION: Similar to previous study. [facility] 09-07 14:26 -0400 Radiology Study observation (narrative) [facility] Amylaseon 09-07-2023 Amylase [Catalytic activity/Vol] 90 U/L 30 - 118 U/L [facility] 09-06 23:24 -0400 Amylase 90 30 - 118 U/L 09/07/2023 11:24 PM EDT [facility] B-type Natriuretic Peptideon 09-07-2023 Natriuretic peptide B [Mass/Vol] 49 pg/mL 0 - 99 pg/mL [facility] 09-06 23:17 -0400 B-Type Natriuretic Peptide 49 0 - 99 pg/mL 09/07/2023 11:17 PM EDT [facility] Complete Blood Count, with D ifferentialon 09-07-2023 Basophils Auto (Bld) [#/Vol] 0.05 [facility] 09-06 23:07 -0400 Abs Basophils Auto 0.05 0.00 - 0.20 Thou/uL 09/07/2023 11:07 PM EDT [facility] Basophils/100 WBC Auto (Bld) 0.5 % [facility] 09-06 23:07 -0400 Basophils Auto 0.5 % 09/07/2023 11:07 PM EDT [facility] Eosinophils Auto (Bld) [#/Vol] 0.09 [facility] 09-06 23:07 -0400 Abs Eosinophils Auto 0.09 0.00 - 0.70 Thou/uL 09/07/2023 11:07 PM EDT [facility] Eosinophils/10 0 WBC Auto (Bld) 0.9 % [facility] 09-06 23:07 -0400 Eosinophils Auto 0.9 % 09/07/2023 11:07 PM EDT [facility] RBC Auto (Bld) [#/Vol] 3.04 Low [facility] 09-06 23:07 -0400 Red Blood Cell Count 3.04 (L) 4.00 - 5.40 Mil/uL 09/07/2023 11:07 PM EDT [facility] Hematocrit Auto (Bld) [Volume fraction] 27.7 % Low 35.0 - 47.0 % [facility] 09-06 23:07 -0400 Hematocrit 27.7 (L) 35.0 - 47.0 % 09/07/2023 11:07 PM EDT [facility] Hemoglobin (Bld) [Mass/Vol] 9.3 g/dL Low 11.7 - 15.7 g/dL [facility] 09-06 23:07 -0400 Hemoglobin 9.3 (L) 11.7 - 15.7 g/dL 09/07/2023 11:07 PM EDT [facility] Lymphocytes Auto (Bld) [#/Vol] 1.53 [facility] 09-06 23:07 -0400 Abs Lymphocytes Auto 1.53 1.50 - 4.50 Thou/uL 09/07/2023 11:07 PM EDT [facility] Lymphocytes/10 0 WBC Auto (Bld) 15.1 % [facility] 09-06 23:07 -0400 Lymphocytes Auto 15.1 % 09/07/2023 11:07 PM EDT [facility] MCH Auto (RBC) [Entitic mass] 30.6 pg 26.0 - 34.0 pg [facility] 09-06 23:07 -0400 MCH 30.6 26.0 - 34.0 pg 09/07/2023 11:07 PM EDT [facility] MCHC Auto (RBC) [Mass/Vol] 33.6 g/dL 30.0 - 36.0 g/dL [facility] 09-06 23:07 -0400 MCHC 33.6 30.0 - 36.0 g/dL 09/07/2023 11:07 PM EDT [facility] MCV Auto (RBC) [Entitic vol] 91 fL 80 - 100 fL [facility] 09-06 23:07 -0400 MCV 91 80 - 100 fL 09/07/2023 11:07 PM EDT [facility] Monocytes Auto (Bld) [#/Vol] 1.13 [facility] 09-06 23:07 -0400 Abs Monocytes Auto 1.13 0.20 - 1.50 Thou/uL 09/07/2023 11:07 PM EDT [facility] Monocytes/100 WBC Auto (Bld) 11.1 % [facility] 09-06 23:07 -0400 Monocytes Auto 11.1 % 09/07/2023 11:07 PM EDT [facility] Neutrophils Auto (Bld) [#/Vol] 7.01 [facility] 09-06 23:07 -0400 Abs Neutrophils Auto 7.01 2.00 - 7.50 Thou/uL 09/07/2023 11:07 PM EDT [facility] Neutrophils/10 0 WBC Auto (Bld) 69.1 % [facility] 09-06 23:07 -0400 Neutrophils Auto 69.1 % 09/07/2023 11:07 PM EDT [facility] Nucleated RBC/100 WBC Auto (Bld) [Ratio] 0.6 High [facility] 09-06 23:07 -0400 nRBC 0.6 (H) 0.0 - 0.1 /100 WBC 09/07/2023 11:07 PM EDT [facility] Platelet mean volume Auto (Bld) [Entitic vol] 10.7 fL 7.5 - 12.5 fL [facility] 09-06 23:07 -0400 MPV 10.7 7.5 - 12.5 fL 09/07/2023 11:07 PM EDT [facility] Platelets Auto (Bld) [#/Vol] 83 Low [facility] 09-06 23:07 -0400 Platelet Count 83 (L) 150 - 450 Thou/uL 09/07/2023 11:07 PM EDT [facility] Erythrocyte distribution width Auto (RBC) [Ratio] 16.9 % High 11.5 - 14.5 % [facility] 09-06 23:07 -0400 RDW 16.9 (H) 11.5 - 14.5 % 09/07/2023 11:07 PM EDT [facility] WBC Auto (Bld) [#/Vol] 10.2 [facility] 09-06 23:07 -0400 White Blood Cell Count 10.2 4.0 - 11.0 Thou/uL 09/07/2023 11:07 PM EDT [facility] Nucleated RBC Auto (Bld) [#/Vol] 0.06 High [facility] 09-06 23:07 -0400 nRBC, Absolute 0.06 (H) 0.00 - 0.02 Thou/uL 09/07/2023 11:07 PM T [facility] Immature Platelet Fraction 6.9 % 1.2 - 8.6 % [facility] 09-06 23:07 -0400 Immature Platelet Fraction 6.9 1.2 - 8.6 % 09/07/2023 11:07 PM EDT [facility] Immature granulocytes/1 00 WBC Auto (Bld) 3.3 % [facility] 09-06 23:07 -0400 Immature Granulocytes 3.3 % 09/07/2023 11:07 PM EDT [facility] Immature granulocytes Auto (Bld) [#/Vol] 0.34 High [facility] 09-06 23:07 -0400 Abs Immature Granulocytes 0.34 (H) 0.00 - 0.10 Thou/uL 09/07/2023 11:07 PM EDT [facility] Comprehensive Metabolic Pane l (STAT)on 09-07-2023 ALT [Catalytic activity/Vol] 10 U/L 7 - 35 U/L [facility] 09-06 23:24 -0400 Alanine Aminotrans (ALT) 10 7 - 35 U/L 09/07/2023 11:24 PM EDT [facility] Albumin [Mass/Vol] 3.7 g/dL 3.4 - 4.8 g/dL [facility] 09-06 23:24 -0400 Albumin 3.7 3.4 - 4.8 g/dL 09/07/2023 11:24 PM EDT [facility] ALP [Catalytic activity/Vol] 140 U/L High 32 - 122 U/L [facility] 09-06 23:24 -0400 Alkaline Phosphatase 140 (H) 32 - 122 U/L 09/07/2023 11:24 PM EDT [facility] AST [Catalytic activity/Vol] 41 U/L High NINF - 34 U/L [facility] 09-06 23:24 -0400 Aspartate Aminotrans (AST) 41 (H) <34 U/L 09/07/2023 11:24 PM EDT [facility] Bilirubin [Mass/Vol] 1.0 mg/dL 0.3 - 1.2 mg/dL [facility] 09-06 23:24 -0400 Bilirubin, Total 1.0 0.3 - 1.2 mg/dL 09/07/2023 11:24 PM EDT [facility] Urea nitrogen/Creat inine [Mass ratio] Not calculated [facility] 09-06 23:24 -040 BUN/Creatinine Ratio Not calculated 10.0 - 25.0 Ratio 09/07/2023 11:24 PM EDT [facility] Calcium [Mass/Vol] 8.5 mg/dL Low 8.7 - 10.5 mg/dL [facility] 09-06 23:24 -0400 Calcium 8.5 (L) 8.7 - 10.5 mg/dL 09/07/2023 11:24 PM EDT [facility] Chloride [Moles/Vol] 98 mmol/L 98 - 107 mmol/L [facility] 09-06 23:24 -0400 Chloride 98 98 - 107 mmol/L 09/07/2023 11:24 PM EDT [facility] CO2 [Moles/Vol] 30 mmol/L 20 - 31 mmol/L [facility] 09-06 23:24 -0400 CO2 30 20 - 31 mmol/L 09/07/2023 11:24 PM EDT [facility] Creatinine [Mass/Vol] 0.4 mg/dL Low 0.6 - 1.0 mg/dL [facility] 09-06 23:24 -0400 Creatinine 0.4 (L) 0.6 - 1.0 mg/dL 09/07/2023 11:24 PM EDT [facility] Glucose [Mass/Vol] 107 mg/dL High 74 - 106 mg/dL [facility] 09-06 23:24 -0400 Glucose 107 (H) 74 - 106 mg/dL 09/07/2023 11:24 PM EDT [facility] Comment on above: Fasting: <100 mg/dL, Non-Fasting: <200 m g/dL (ADA 2005) Fasting: <100 mg/dL, Non-Fasting: <200 mg/dL (ADA 2005) CORRECTED ON 09/06 AT 2324: PREVIOUSLY REPORTED 107 Fasting: <100 mg/dL, Non Fasting: <200 mg/dL (ADA 2005) Potassium [Moles/Vol] 2.8 mmol/L Critically low 3.4 - 4.5 mmol/L [facility] 09-06 23:24 -0400 Potassium 2.8 (LL) 3.4 - 4.5 mmol/L 09/07/2023 11:24 PM EDT [facility] Comment on above: Critical result called to and read back by BEVERLEY Ring [email or web address] 09.07.23 RAMÍREZ Pool Protein [Mass/Vol] 5.7 g/dL 5.7 - 8.2 g/dL [facility] 09-06 23:24 -0400 Protein, Total 5.7 5.7 - 8.2 g/dL 09/07/2023 11:24 PM EDT [facility] Sodium [Moles/Vol] 135 mmol/L Low 136 - 145 mmol/L [facility] 09-06 23:24 -0400 Sodium 135 (L) 136 - 145 mmol/L 09/07/2023 11:22 PM EDT [facility] Urea nitrogen [Mass/Vol] <5 >NINF mg/dL Low 9 - 23 mg/dL [facility] 09-06 23:24 -0400 Blood Urea Nitrogen (BUN) <5 (L) 9 - 23 mg/dL 09/07/2023 11:24 PM EDT [facility] GFR/1.73 sq M.predicted CKD-EPI (S/P/Bld) [Vol rate/Area] <PINF >90 59 - PINF [facility] 09-06 23:24 -0400 eGFR >90 >59 09/07/2023 11:24 PM EDT [facility] Comment on above: CKD-EPI (2020) in mL/min/1.73 sq meters. Globulin Calc (S) [Mass/Vol] 2.0 g/dL 1.5 - 3.9 g/dL [facility] 09-06 23:24 -0400 Globulin 2.0 1.5 - 3.9 g/dL 09/07/2023 11:24 PM EDT [facility] Albumin/Globul in [Mass ratio] 1.8 [facility] 09-06 23:24 -0400 Albumin/Globuli n Ratio 1.8 1.5 - 2.5 Ratio 09/07/2023 11:22 PM EDT [facility] Anion gap (Bld) [Moles/Vol] 7 5 - 15 [facility] 09-06 23:24 -0400 Anion Gap 7 5 - 15 09/07/2023 11:22 PM EDT [facility] ECG 12 leadOrdered By: Neel Carreno on 09-07-2023 Ventricular rate 114 BPM [facility] Work Phone: [phone] 09-07 11:37 -0400 Ventricular rate 114 BPM EKG [facility] Atrial rate 114 BPM [facility] Work Phone: [phone] 09-07 11:37 -0400 Atrial rate 114 BPM EKG [facility] QRS duration 82 ms [facility] Work Phone: [phone] 09-07 11:37 -0400 QRS duration 82 ms EKG [facility] QTC calculation (Bazett) 562 ms [facility] Work Phone: [phone] 09-07 11:37 -0400 QTC calculation (Bazett) 562 ms EKG [facility] P axis 41 degrees [facility] Work Phone: [phone] 09-07 11:37 -0400 P axis 41 degrees EKG [facility] R axis 39 degrees [facility] Work Phone: [phone] 09-07 11:37 -0400 R axis 39 degrees EKG [facility] T axis -12 degrees [facility] Work Phone: [phone] 09-07 11:37 -0400 T axis -12 degrees EKG [facility] Work Phone: [phone] 09-07 11:37 -0400 ECG 12 leadon 09-07-[address] and T wave abnormality Prolonged QT Abnormal ECG No previous ECGs available Confirmed by MD Carreno Joseph ([id number]) on 09/08/2023 11:37:13 AM EKG [facility] 09-07 11:37 -[address] and T wave abnormality Prolonged QT Abnormal ECG No previous ECGs available Confirmed by MD Carreno Joseph ([id number]) on 09/08/2023 11:37:13 AM Sherwin Carreno MD - 09/08/[address] and T wave abnormality Prolonged QT Abnormal ECG No previous ECGs available Confirmed by MD Carreno Joseph ([id number]) on 09/08/2023 11:37:13 AM [facility] 09-07 11:37 -0400 Sherwin Carreno MD - 09/08/[address] and T wave abnormality Prolonged QT Abnormal ECG No previous ECGs available Confirmed by MD Carreno Joseph ([id number]) on 09/08/2023 11:37:13 AM Emergency Department (DEEDS) variableson 09-07-2023 Interpretation and review of laboratory results Abnormal [facility] 09-06 23:25 -0400 ETHAN Archive for reference on ly CRon 09-07-2023 This order has been auto-finalized and does not contain a result. [facility] 09-06 20:20 -0400 This order has been auto-finalized and does not contain a result. Lactic Acid, Plasma (STAT)on 09-07-2023 Lactate [Moles/Vol] 0.8 mmol/L 0.5 - 1.9 mmol/L [facility] 09-06 23:12 -0400 Lactic Acid 0.8 0.5 - 1.9 mmol/L 09/07/2023 11:12 PM EDT [facility] Lipaseon 09-07-2023 Lipase [Catalytic activity/Vol] 96 U/L High 12 - 53 U/L [facility] 09-06 23:24 -0400 Lipase 96 (H) 12 - 53 U/L 09/07/2023 11:24 PM EDT [facility] Magnesiumon 09-07-2023 Magnesium [Mass/Vol] 1.9 mg/dL 1.6 - 2.6 mg/dL [facility] 09-06 23:24 -0400 Magnesium 1.9 1.6 - 2.6 mg/dL 09/07/2023 11:24 PM EDT [facility] No Panel Informationon 09-06 [facility] 09-06 23:25 -0400 POCT, Blood Gas, Venouson Sample Type VENOUS [facility] 09-06 23:02 -0400 Sample Type VENOUS 09/07/2023 11:02 PM EDT [facility] pH (BldV) 7.55 [facility] 09-06 23:02 -0400 Venous Blood PH 7.55 09/07/2023 11:02 PM EDT [facility] CO2 (BldV) [Partial pressure] 36 mmHG [facility] 09-06 23:02 -0400 Venous pCO2 36 mmHG 09/07/2023 11:02 PM EDT [facility] Oxygen (BldV) [Partial pressure] 73 mmHG [facility] 09-06 23:02 -0400 Venous pO2 73 mmHG 09/07/2023 11:02 PM EDT [facility] HCO3, Ash 32.0 mmol/L [facility] 09-06 23:02 -0400 HCO3, Ash 32.0 mmol/L 09/07/2023 11:02 PM EDT [facility] SaO2% Calculated from oxygen partial pressure (BldV) [Mass fraction] 99.0 % [facility] 09-06 23:02 -0400 O2 Saturation, Venous 99.0 % 09/07/2023 11:02 PM EDT [facility] Base Excess 8.7 mmol/L [facility] 09-06 23:02 -0400 Base Excess 8.7 mmol/L 09/07/2023 11:02 PM EDT [facility] Liter Flow, I-STAT 2.0 [facility] 09-06 23:02 -0400 Liter Flow, I-STAT 2.0 09/07/2023 11:02 PM EDT [facility] Comment VENOUS [facility] 09-06 23:02 -0400 Comment VENOUS 09/07/2023 11:02 PM EDT [facility] PROCALCITONINon 09-07-2023 Procalcitonin IA [Mass/Vol] 18.68 ng/mL High NINF - 0.05 ng/mL [facility] 09-07 01:03 -0400 Procalcitonin 18.68 (H) <0.05 ng/mL 09/08/2023 1:03 AM EDT [facility] Interpretation and review of laboratory results Abnormal [facility] 09-07 01:03 -0400 [facility] 09-07 01:03 -0400 Protime-INR (Routine)on INR Coag (PPP) [Relative time] 1.4 [facility] 09-06 23:25 -0400 INR 1.4 09/07/2023 11:25 PM EDT [facility] Comment on above: INR Therapeutic Ranges: Standard dose an ticoagulant 2.0 to 3.0, High dose anticoagulant 2.5-3.5. PT Coag (PPP) [Time] 16.2 High [facility] 09-06 23:25 -0400 Prothrombin Time (PT) 16.2 (H) 10.0 - 13.5 seconds 09/07/2023 11:25 PM EDT [facility] Anticoagulant IV HEPARIN, UNFRACTIONATED, BEING HELD [facility] 09-06 23:25 -0400 Anticoagulant IV HEPARIN, UNFRACTIONATED, BEING HELD 09/07/2023 10:59 PM EDT [facility] Troponin I, High Sensitivity (STAT)on 09-07-2023 Troponin I.cardiac DL <= 0.01 ng/mL [Mass/Vol] 7 ng/L NINF - 34 ng/L [facility] 09-06 23:16 -0400 Troponin I, High Sensitivity 7 <34 ng/L 09/07/2023 11:16 PM EDT [facility] Delta (HS Troponin I) NO PREVIOUS RESULT [facility] 09-06 23:16 -0400 Delta (HS Troponin I) NO PREVIOUS RESULT 09/07/2023 11:16 PM EDT [facility] Urinalysis with Reflex to Mi croscopicon 09-07-2023 RBC LM.HPF (Urine sed) [#/Area] 71 High [facility] 09-06 23:22 -0400 RBC 71 (H) 0 - 4 per hpf 09/07/2023 11:22 PM EDT [facility] Hemoglobin Test strip Ql (U) Large Abnormal Negative [facility] 09-06 23:22 -0400 Blood Large (A) Negative 09/07/2023 11:22 PM EDT [facility] Hyaline casts LM.LPF (Urine sed) [#/Area] 0 [facility] 09-06 23:22 -0400 Hyaline Casts 0 0 - 4 per lpf 09/07/2023 11:22 PM EDT [facility] Leukocyte esterase Test strip Ql (U) Negative Negative [facility] 09-06 23:22 -0400 Leukocyte Esterase Negative Negative 09/07/2023 11:22 PM EDT [facility] WBC LM.HPF (Urine sed) [#/Area] 2 [facility] 09-06 23:22 -0400 WBC 2 0 - 4 per hpf 09/07/2023 11:22 PM EDT [facility] Nitrite Test strip Ql (U) Negative Negative [facility] 09-06 23:22 -0400 Nitrite Negative Negative 09/07/2023 11:22 PM EDT [facility] Protein Test strip (U) [Mass/Vol] Small (30 mg/dL) Abnormal Negative [facility] 09-06 23:22 -0400 Protein Small (30 mg/dL) (A) Negative 09/07/2023 11:22 PM EDT [facility] Specific gravity Test strip (U) [Rel density] 1.013 1.003 - 1.030 [facility] 09-06 23:22 -0400 Specific [place] 1.013 1.003 - 1.030 09/07/2023 11:22 PM EDT [facility] Epithelial cells.squamous LM.HPF (Urine sed) [#/Area] 3 per hpf [facility] 09-06 23:22 -0400 Squamous Epithelial Cells 3 per hpf 09/07/2023 11:22 PM EDT [facility] Clarity (U) Clear [facility] 09-06 23:22 -0400 Clarity Clear 09/07/2023 11:22 PM EDT [facility] Color (U) Yellow [facility] 09-06 23:22 -0400 Color Yellow 09/07/2023 11:22 PM EDT [facility] pH Test strip (U) 8.5 High 5.0 - 8.0 [facility] 09-06 23:22 -0400 pH 8.5 (H) 5.0 - 8.0 09/07/2023 11:22 PM EDT [facility] Glucose Test strip (U) [Mass/Vol] Negative 0 - 99 mg/dL [facility] 09-06 23:22 -0400 Glucose Negative 0 - 99 mg/dL 09/07/2023 11:22 PM EDT [facility] Ketones Test strip (U) [Mass/Vol] Negative Negative [facility] 09-06 23:22 -0400 Ketones Negative Negative 09/07/2023 11:22 PM EDT [facility] Urobilinogen Test strip (U) [Mass/Vol] 1.0 EU/dL 0.2 - 1.0 EU/dL [facility] 09-06 23:22 -0400 Urobilinogen 1.0 0.2 - 1.0 EU/dL 09/07/2023 11:22 PM EDT [facility] Bilirubin Test strip (U) [Mass/Vol] Negative Negative [facility] 09-06 23:22 -0400 Bilirubin Negative Negative 09/07/2023 11:22 PM EDT [facility] Bacteria LM Ql (Urine sed) Negative Negative [facility] 09-06 23:22 -0400 Bacteria Negative Negative 09/07/2023 11:22 PM EDT [facility] XR Chest 1 view-Portableon 0 09-07-2023 Mild hazy opacity of the lung bases and in the LEFT retrocardiac region, may reflect areas of atelectasis. Superimposed pneumonia cannot be excluded. Recommend attention to follow-up for resolution. I agree with the above resident preliminary report. If this exam was interpreted by a resident, I personally reviewed the image(s) and resident's interpretation and agree with the findings. [facility] 09-07 07:24 -0400 Mild hazy opacity of the lung bases and in the LEFT retrocardiac region, may reflect areas of atelectasis. Superimposed pneumonia cannot be excluded. Recommend attention to follow-up for resolution. I agree with the above resident preliminary report. If this exam was interpreted by a resident, I personally reviewed the image(s) and resident's interpretation and agree with the findings. CLINICAL INFORMATION: sob, hypoxia COMPARISON: Chest x-ray 09/06/2023. TECHNIQUE: AP view of the chest. FINDINGS: Heart/Mediastin um: The cardiac silhouette is unchanged. The mediastinal contours are relatively stable. Lungs: Mild hazy opacities in the lung bases and in the LEFT retrocardiac region, may reflect areas of atelectasis. No pleural effusions. Osseous Structures: No acute abnormalities. [facility] 09-07 07:24 -0400 CLINICAL INFORMATION: sob, hypoxia COMPARISON: Chest x-ray 09/06/2023. TECHNIQUE: AP view of the chest. FINDINGS: Heart/Mediastin um: The cardiac silhouette is unchanged. The mediastinal contours are relatively stable. Lungs: Mild hazy opacities in the lung bases and in the LEFT retrocardiac region, may reflect areas of atelectasis. No pleural effusions. Osseous Structures: No acute abnormalities. Yogesh Calvillo MD - 09/08/2023 CLINICAL INFORMATION: sob, hypoxia COMPARISON: Chest x-ray 09/06/2023. TECHNIQUE: AP view of the chest. FINDINGS: Heart/Mediastin um: The cardiac silhouette is unchanged. The mediastinal contours are relatively stable. Lungs: Mild hazy opacities in the lung bases and in the LEFT retrocardiac region, may reflect areas of atelectasis. No pleural effusions. Osseous Structures: No acute abnormalities. IMPRESSION: Mild hazy opacity of the lung bases and in the LEFT retrocardiac region, may reflect areas of atelectasis. Superimposed pneumonia cannot be excluded. Recommend attention to follow-up for resolution. I agree with the above resident preliminary report. If this exam was interpreted by a resident, I personally reviewed the image(s) and resident's interpretation and agree with the findings. [facility] 09-07 07:24 -0400 Yogesh Calvillo MD - 09/08/2023 CLINICAL INFORMATION: sob, hypoxia COMPARISON: Chest x-ray 09/06/2023. TECHNIQUE: AP view of the chest. FINDINGS: Heart/Mediastin um: The cardiac silhouette is unchanged. The mediastinal contours are relatively stable. Lungs: Mild hazy opacities in the lung bases and in the LEFT retrocardiac region, may reflect areas of atelectasis. No pleural effusions. Osseous Structures: No acute abnormalities. IMPRESSION: Mild hazy opacity of the lung bases and in the LEFT retrocardiac region, may reflect areas of atelectasis. Superimposed pneumonia cannot be excluded. Recommend attention to follow-up for resolution. I agree with the above resident preliminary report. If this exam was interpreted by a resident, I personally reviewed the image(s) and resident's interpretation and agree with the findings. Radiology Study observation (narrative) [facility] XR Chest 1 view-PortableOrde red By: Yogesh Calvillo on 09-07-2023 [facility] Work Phone: 09-07 07:69 -0400 No Panel Information APPT STATUS (PVISIT) : [id number]~(S OT) SEXUAL ORIENTATION: Heterosexual (straight)~(CRAIG T_STATUS) APPT STATUS: 6 [facility] APPT STATUS (PVISIT) : [id number]~(S OT) SEXUAL ORIENTATION: Heterosexual (straight)~(CRAIG T_STATUS) APPT STATUS: 1 [facility] (PVISIT) : [id number] [facility] SEXUAL ORIENTATION (PVISIT) : [id number]~(S OT) SEXUAL ORIENTATION: Heterosexual (straight) [facility] REG ADDL ENC CATEGORY 1 (PVISIT) : [id number]~(S OT) SEXUAL ORIENTATION: Heterosexual (straight)~(PCP NOTIFY) REG ADDL ENC CATEGORY 1: Yes-notify [facility] Social History Date Type Detail Facility Start: 09-08-2023 Tobacco smoking status NHIS Ex-smoker [facility] Work Phone: Start: 09-08-2023 Tobacco use and exposure Smokeless tobacco non-user [facility] Start: 09-08-2023 Alcohol intake Current drinker of alcohol (finding) [facility] Start: 09-08-2023 History of Social function [facility] Work Phone: Start: 09-08-2023 [facility] Utilities [facility] Work Phone: Start: 09-07-2023 Gender identity Identifies as female gender (finding) [facility] Start: 09-07-2023 Sexual orientation Heterosexual (finding) [facility] Start: 09-07-2023 Alcohol Comment 10-12 nips per day [facility] Start: 1995 [facility] of [facility] use Current smoker [facility] History of tobacco use Cigarette Smoker H [facility] Has the [facility], or [employer] threatened to shut off services in your home in past 12Mo No [facility] Work Phone: How often to you hav e a drink containing alcohol? 4 or more times a week [facility] Work Phone: How many standard dr inks containing alcohol do you have on a typical day? 10 or more [facility] How often do you hav e 6 or more drinks on 1 occasion? Daily or almost daily [facility] How hard is it for y ou to pay for the very basics like food, housing, medical care, and heating Not very hard [facility] (I/We) worried carey er (my/our) food would run out before (I/we) got money to buy more. Never true [facility] In the past 12 month s, has lack of transportation kept you from medical appointments or from getting medications? No [facility] Vital Signs Date Time Vital Sign Value Performing Clinician Facility 09-15-2023 08:03-0400 Body temperature 97.9 [degF] Jarocho Abbasi MD Work Phone: [facility] 09-15-2023 08:03-0400 BP (Blood pressure) 124/74mm[Hg] Jarocho Abbasi MD Work Phone: [facility] 09-15-2023 08:03-0400 Heart rate 101 /min Jarocho Abbasi MD Work Phone: [facility] 09-15-2023 08:03-0400 Respiratory rate 18 /min Jarocho Abbasi MD Work Phone: [facility] 09-15-2023 08:03-0400 SaO2% (BldA) [Mass fraction] 100 % Jarocho Abbasi MD Work Phone: [facility] 09-10-2023 05:00-0400 Body mass index (BMI) [Ratio] 26.94 kg/m2 Jarocho Abbasi MD Work Phone: [facility] 09-10-2023 05:00-0400 Body weight 71.2 kg Jarocho Abbasi MD Work Phone: [facility] 09-08-2023 04:00-0400 Body height 162.6 cm Jarocho Abbasi MD Work Phone: [facility] Clinical Notes 09-07-2023 to 09-15-2023 Radha Bojorquez MD - 09/15/2023 11:54 AM PRISCILLA Rowell - 09/14/2023 4:10 PM Wilbert Adames DO - 09/14/2023 4:07 PM Lindy Patel APRN - 09/14/2023 11:27 AM EDT Note Date & Type Note Facility 09-15-2023 History of Present illness Narrative Images from the original note were not included. Gastroenterology Progress Note Principal Problem: Acute pancreatitis with infected necrosis, unspecified (POA: Yes) Active Problems: Alcohol use disorder (POA: Unknown) Acute thrombosis of splenic vein (POA: Unknown) Resolved Problems: 28 y.o. Assessment & Plan Assessment 1. Severe alcoholic induced pancreatitis with peripancreatic collections as well as splenic vein thrombosis. 2. Rectal bleeding most likely anorectal, no further bleeding through the night she had 3-4 bowel movements in the last 12 hours. H&H low but stable Plan 1. As discussed with the medical team patient can be discharged but will need close follow-up in the medical and GI clinics. Will need to monitor labs and possible reassess fluid collection in the future depending on her medical course. 2. I implored the patient to discontinue alcohol I explained to her the gravity of her illness and the high likelihood of if she were to continue drinking. She is the mother of 3 1 child is autistic. She does need alcohol counseling she states that she will discontinue drinking. 3. As needed hemorrhoidal creams and/or suppositories Subjective Patient reports that she still has some mild upper abdominal pain but nothing severe. Appetite is gradually improving her stools are semiformed but not bloody and not acholic. Objective Meds Current Facility-Administered Medications: acetaminophen (TYLENOL) tablet 975 mg, 975 mg, Oral, Q8H PRN, Gaetano Alberto MD bisacodyl (DULCOLAX) suppository 10 mg, 10 mg, Rectal, Daily PRN, Gaetano Alberto MD calcium carbonate (TUMS) chewable tablet 500 mg, 500 mg, Oral, 4x Daily PRN, Gaetano Alberto MD, 500 mg at 09/14/23 2133 [Provider Held] enoxaparin (LOVENOX) syringe 70 mg, 1 mg/kg, Subcutaneous, Q12H, Gaetano Alberto MD, 70 mg at 09/14/23 0943 folic acid (FOLVITE) tablet 1 mg, 1 mg, Oral, Daily, Gaetano Alberto MD, 1 mg at 09/15/23 0928 lactulose (ENULOSE) 10 gm/15 mL solution 20 g, 30 mL, Oral, Q4H PRN, Gaetano Alberto MD methocarbamol (ROBAXIN) tablet 1,000 mg, 1,000 mg, Oral, 4x Daily, Carla Gonzalez APRN, 1,000 mg at 09/15/23927 morphine (ROXANOL) 10 mg/5 mL solution 30 mg, 30 mg, Oral, Q4H PRN, Carla Gonzalez APRN, 30 mg at 09/15/23 0930 multivitamin with minerals tablet 1 tablet, 1 tablet, Oral, Daily, Gaetano Alberto MD, 1 tablet at 09/15/23 0928 naloxone (NARCAN) 0.4 mg/mL injection 0.4 mg, 0.4 mg, Intravenous, Q5 Min PRN, Gaetano Alberto MD polyethylene glycol (miraLAx) packet 17 g, 17 g, Oral, Daily, Gaetano Alberto MD, 17 g at 09/14/23 0943 pregabalin (LYRICA) capsule 100 mg, 100 mg, Oral, TID, Carla Gonzalez APRN, 100 mg at 09/15/23927 senna-docusate (SENNA-S) 8.6-50 MG tablet 2 tablet, 2 tablet, Oral, Nightly, Gaetano Alberto MD, 2 tablet at 09/14/23 210 thiamine mononitrate (VITAMIN B-1) tablet 200 mg, 200 mg, Oral, Daily, Shannon Mitchell MD, 200 mg at 09/15/23 09 Last Vitals Pulse:(!) 101,Resp:18,BP:124/74,SpO2:100 %,Weight:71.2 kg (156 lb 15.5 oz) Temp Last 24 hrs: Temp Min: 97.9 ?F (36.6 ?C) Max: 99.5 ?F (37.5 ?C) Intake/Output Summary (Last 24 hours) at 09/15/2023 1154 Last data filed at 09/15/2023 0427 Gross per 24 hour Intake 1360 ml Output -- Net 1360 ml Physical Exam; pale appearing alert female General appearance: alert and cooperative Eyes: conjunctivae/corneas clear. No icterus ENT: No lymphadenopathy. Moist mucous membranes Lungs: clear to auscultation bilaterally, good excursion Heart: regular rate and rhythm Abdomen: Soft, nondistended, epigastric and bilateral upper quadrant tenderness no guarding no rebound Extremities: extremities normal, atraumatic, no cyanosis or edema Skin: Skin color, texture, turgor normal. No stigmata of chronic liver disease Neurologic: Grossly normal, no asterixis Relevant data reviewed Results from last 7 days Lab Units 09/15/23 0631 09/14/23 0610 09/13/23 0531 WHITE BLOOD CELL COUNT Thou/uL 10.1 14.5* 16.3* HEMOGLOBIN g/dL 8.0* 8.1* 8.5* HEMATOCRIT % 25.9* 26.0* 27.4* PLATELET COUNT Thou/uL 394 448 485* Lab Results Component Value Date GLUC 132 (H) 09/15/2023 CALCIUM 9.0 09/15/2023 NA 136 09/15/2023 K 3.9 09/15/2023 CO2 25 09/15/2023 CL 104 09/15/2023 BUN <5 (L) 09/15/2023 CREAT 0.5 (L) 09/15/2023 Results from last 7 days Lab Units 09/10/23 0403 LIPASE U/L 56* Lab Results Component Value Date INR 1.5 09/08/2023 INR 1.4 09/07/2023 Results from last 7 days Lab Units 09/14/23 0610 09/11/23 0532 ALT U/L 75* 44* AST U/L 95* 86* ALK PHOS U/L 189* 218* BILIRUBIN TOTAL mg/dL 0.5 0.7 MELD 3.0: 13 at 09/10/2023 4:03 AM MELD-Na: 11 at 09/10/2023 4:03 AM Calculated from: Serum Creatinine: 0.5 mg/dL (Using min of 1 mg/dL) at 09/10/2023 4:03 AM Serum Sodium: 134 mmol/L at 09/10/2023 4:03 AM Total Bilirubin: 0.9 mg/dL (Using min of 1 mg/dL) at 09/08/2023 4:23 AM Serum Albumin: 3.6 g/dL (Using max of 3.5 g/dL) at 09/08/2023 4:23 AM INR(ratio): 1.5 at 09/08/2023 4:23 AM Age at listing (hypothetical): 28 years Sex: Female at 09/10/2023 4:[address] Abdomen with and without IV contrast Result Date: 09/12/2023 CLINICAL INFORMATION: Necrotizing pancreatitis - interval evaluation - CRP and leukocytosis persistently elevated. Persistent abdominal pain COMPARISON: CT abdomen and pelvis 09/07/2023 and 09/04/2023 TECHNIQUE: CT Abdomen without and with contrast. IV Contrast: 80 mL Omnipaque 350. Protocol: Protocol: Protocol: Pancreas. Oral Contrast: Not given. Dose modulation and/or iterative reconstruction was utilized to minimize dose. FINDINGS: Lower Chest: There is patchy groundglass opacities in the RIGHT lower lobe. Bilateral pleural effusions. Liver: No focal lesions. Intrahepatic biliary ducts are normal. Gallbladder/Biliary: Distended. Extrahepatic biliary ducts are normal. Spleen: Unremarkable. Pancreas/vasculature/Peritoneum: There is pancreatic necrosis more than 50%, visualizing pancreatic tissue at the level of head and body. There is a pancreatic and peripancreatic fluid collections. There is no gas. The pancreatic collection is well demarcated with an enhancing wall, with multiple loculated areas all of which probably communicate with each other. A lesser sac component of the collection on series 2, image 25 measures 9.9 x 7.1 cm compared with 10 x 6.2 cm on the prior exam and contains some hyperdense material probably indicating hemorrhagic products. Another component anterior to the hemorrhagic pancreatic tissue on image 34 measures 8.4 x 4 cm, previously 8.3 x 4.6 cm. Another slightly inferior to this on the RIGHT within the mesenteric region on image 39 measures 8 x 4.8 cm, previously 6.7 x 3.9 cm.. There is a filling defect in the portal and extending to the splenic vein likely thrombosis (series 2 image 26 and series 7, image 54). Adrenals: Unremarkable. Kidneys: RIGHT lower pole 3 and 2 mm nonobstructing stone. LEFT kidney is unremarkable. No hydronephrosis. Retroperitoneum: Unremarkable. No adenopathy. Gastrointestinal: There is mild distended small bowel loops likely ileus. No obstruction. Bones: No acute or suspicious abnormalities. Continued findings of hemorrhagic necrosis related to the patient's pancreatitis. There are hypodense regions within the collection which appears somewhat similar to the prior exam and probably represent hemorrhagic components. Overall, most of the components of the lateral collections are unchanged in size, noting that there is a portion in the RIGHT inferior aspect along the mesentery which has mildly increased in size. Note that there is no obvious extravasation of contrast, but the patient would be at risk for pseudoaneurysm formation and continued follow-up of the patient's hemodynamic status is recommended. 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 Bilateral pleural effusions LEFT nonobstructing nephrolithiasis. These findings were discussed with SHANNON MITCHELL via secure text messenger at 09/12/2023 12:28 PM. US Venous Duplex Legs-Bilateral (DVT) Result Date: 09/08/2023 CLINICAL INFORMATION: Rule out DVT COMPARISON: None. TECHNIQUE: Real-time scanning of the bilateral lower extremity deep venous systems was performed assessing ashraf scale appearance, color and duplex Doppler flow and compressibility. FINDINGS: The bilateral distal external iliac veins demonstrate normal color flow. The common femoral, proximal deep femoral, proximal greater saphenous, femoral and popliteal veins show normal color flow and compressibility. The visualized calf veins also demonstrate normal color flow and are compressible. No Alegre's cyst. No evidence of acute deep vein thrombosis. XR Chest 1 view-Portable Result Date: 09/08/2023 CLINICAL INFORMATION: Hypoxia COMPARISON: CXR - 09/07/23. TECHNIQUE: AP view of the chest. FINDINGS: Heart/Mediastinum: The cardiac silhouette is unchanged. The mediastinal contours are relatively stable. Lungs: Persistent retrocardiac and right infrahilar/basilar opacities, similar to previous study. No effusion is evident. Osseous Structures: No acute abnormalities. Similar to previous study. XR Chest 1 view-Portable Result Date: 09/08/2023 CLINICAL INFORMATION: sob, hypoxia COMPARISON: Chest x-ray 09/06/2023. TECHNIQUE: AP view of the chest. FINDINGS: Heart/Mediastinum: The cardiac silhouette is unchanged. The mediastinal contours are relatively stable. Lungs: Mild hazy opacities in the lung bases and in the LEFT retrocardiac region, may reflect areas of atelectasis. No pleural effusions. Osseous Structures: No acute abnormalities. Mild hazy opacity of the lung bases and in the LEFT retrocardiac region, may reflect areas of atelectasis. Superimposed pneumonia cannot be excluded. Recommend attention to follow-up for resolution. I agree with the above resident preliminary report. If this exam was interpreted by a resident, I personally reviewed the image(s) and resident's interpretation and agree with the findings. [facility] Archive for reference only CT Result Date: 09/08/2023 This order has been auto-finalized and does not contain a result. [facility] Archive for reference only CR Result Date: 09/08/2023 This order has been auto-finalized and does not contain a result. [facility] Archive for reference only CT Result Date: 09/08/2023 This order has been auto-finalized and does not contain a result. [facility] Archive for reference only CR Result Date: 09/07/2023 This order has been auto-finalized and does not contain a result. [facility] Archive for reference only CT Result Date: 09/07/2023 This order has been auto-finalized and does not contain a result. Sign Radha Bojorquez MD 09/15/2023 11:54 AM Images from the original note were not included. Gastroenterology Progress Note SUBJECTIVE GI was recalled to see the patient. She was about to be discharged home when she went to have a bowel movement and noticed that there was bright red blood per rectum in the toilet and on the toilet paper when wiping. She has been experiencing some lower abdominal cramping. She states that the bowel movements have been normal. She had a bowel movement earlier today without bleeding. She denies any dizziness, chest pain/palpitations. Review of Systems Constitutional: Negative for appetite change and unexpected weight change. HENT: Negative for trouble swallowing. Respiratory: Negative for cough and shortness of breath. Cardiovascular: Negative for chest pain and palpitations. Gastrointestinal: Positive for abdominal pain, anal bleeding and blood in stool. Negative for constipation, diarrhea, nausea and vomiting. Endocrine: Negative for polyuria. Genitourinary: Negative for dysuria. OBJECTIVE Physical Exam Pulse:100,Resp:18,BP:111/71,SpO2 :97 %,Weight:71.2 kg (156 lb 15.5 oz) Temp Last 24 hrs: Temp Min: 98.2 ?F (36.8 ?C) Max: 99.2 ?F (37.3 ?C) Intake/Output Summary (Last 24 hours) at 09/14/2023 1611 Last data filed at 09/14/2023 1230 Gross per 24 hour Intake 1720 ml Output -- Net 1720 ml Physical Exam Vitals and nursing note reviewed. Constitutional: Appearance: Normal appearance. HENT: Head: Normocephalic. Eyes: General: No scleral icterus. Cardiovascular: Rate and Rhythm: Normal rate and regular rhythm. Heart sounds: Normal heart sounds. Pulmonary: Effort: Pulmonary effort is normal. Breath sounds: Normal breath sounds. Abdominal: General: Abdomen is flat. Bowel sounds are normal. Palpations: Abdomen is soft. There is no mass. Tenderness: There is abdominal tenderness (Generalized). There is no guarding or rebound. Genitourinary: Rectum: External hemorrhoid present. Comments: Digital rectal exam was refused by the patient. Musculoskeletal: Right lower leg: No edema. Left lower leg: No edema. Skin: General: Skin is warm and dry. Coloration: Skin is not jaundiced. Neurological: General: No focal deficit present. Mental Status: She is alert and oriented to person, place, and time. Meds [Provider Held] enoxaparin (LOVENOX) injection for treatment, 1 mg/kg, Subcutaneous, Q12H folic acid, 1 mg, Oral, Daily methocarbamol, 1,000 mg, Oral, 4x Daily multivitamin with minerals, 1 tablet, Oral, Daily polyethylene glycol, 17 g, Oral, Daily pregabalin, 100 mg, Oral, TID senna-docusate, 2 tablet, Oral, Nightly thiamine, 200 mg, Oral, Daily Relevant data reviewed: Results from last 7 days Lab Units 09/14/23 0610 09/13/23 0531 09/12/23 0652 WHITE BLOOD CELL COUNT Thou/uL 14.5* 16.3* 16.4* HEMOGLOBIN g/dL 8.1* 8.5* 7.9* HEMATOCRIT % 26.0* 27.4* 24.9* PLATELET COUNT Thou/uL 448 485* 465* Results from last 7 days Lab Units 09/14/23 0610 GLUCOSE mg/dL 132* CALCIUM mg/dL 8.6* SODIUM mmol/L 136 POTASSIUM mmol/L 4.0 CO2 mmol/L 28 CHLORIDE mmol/L 103 BUN mg/dL <5* CREATININE mg/dL 0.5* Results from last 7 days Lab Units 09/10/23 0403 LIPASE U/L 56* Results from last 7 days Lab Units 09/08/23 0423 09/07/23 2301 INR 1.5 1.4 Results from last 7 days Lab Units 09/14/23 0610 ALT U/L 75* AST U/L 95* ALK PHOS U/L 189* BILIRUBIN TOTAL mg/dL 0.5 MELD 3.0: 13 at 09/10/2023 4:03 AM MELD-Na: 11 at 09/10/2023 4:03 AM Calculated from: Serum Creatinine: 0.5 mg/dL (Using min of 1 mg/dL) at 09/10/2023 4:03 AM Serum Sodium: 134 mmol/L at 09/10/2023 4:03 AM Total Bilirubin: 0.9 mg/dL (Using min of 1 mg/dL) at 09/08/2023 4:23 AM Serum Albumin: 3.6 g/dL (Using max of 3.5 g/dL) at 09/08/2023 4:23 AM INR(ratio): 1.5 at 09/08/2023 4:23 AM Age at listing (hypothetical): 28 years Sex: Female at 09/10/2023 4:03 AM ASSESSMENT & PLAN Assessment 28-year-old female who was admitted for alcoholic pancreatitis and peripancreatic fluid collections as well as splenic vein thrombosis. She experienced acute right red blood per rectum this afternoon and has been experiencing lower abdominal cramping. On examination she has an external hemorrhoid which I suspect is the etiology to her bright red blood per rectum. She refused internal rectal examination. Problem List: 2023-09: Alcohol use disorder 2023-09: Acute thrombosis of splenic vein 2023-09: Acute pancreatitis with infected necrosis, unspecified Plan Check STAT CBC. If rectal bleeding persists, obtain CTA of the abdomen and pelvis. Would keep n.p.o. after midnight in case endoscopic evaluation is needed. Sign PRISCILLA Fernández 09/14/2023 4:11 PM Associated attestation - Adelso Gill MD - 09/14/2023 4:48 PM EDT The patient was evaluated with Mr. Borjas. I agree with his consultation note, findings, assessment and plan. Please see our prior note for assessment of her peripancreatic fluid collection and its management. Today, the patient was noted to have bright red blood per rectum in the toilet and on the toilet paper. Rectal exam performed but mostly inspection showed hemorrhoid. Patient's discharge was canceled by the primary team and she will be monitored overnight with repeat H&H in the morning. We have agreed that if there is any evidence of recurrent GI bleed, a CTA should be considered. Adelso Gill MD Chief Complaint: Abdominal pain Subjective Seen and examined numerous times throughout the day on 09/14/2023. Patient resting comfortably in bed. Initially plan was for discharge home today. I discussed the patient's care with her PCP, Dr. Lassiter today. Just prior to discharge however, patient had a large bloody bowel movement, thus discharge was canceled. Objective Last Vitals Pulse:100,Resp:18,BP:111/71,SpO2 :97 %,O2 Device: room air (none), , Weight:71.2 kg (156 lb 15.5 oz) Body mass index is 26.94 kg/m?. Temp Last 24 hrs: Temp Min: 98.2 ?F (36.8 ?C) Max: 99.2 ?F (37.3 ?C) Physical Exam Gen: Adult female in no acute distress CVS: Regular rate and rhythm without murmur Resp: Clear to auscultation bilaterally. No significant wheezes or crackles. Abdomen/GI: Bowel sounds present but diminished. Abdomen continues to be mildly distended, however better compared to yesterday Ext: No significant peripheral edema. Neuro/psych: Alert and oriented x 3. Affect appropriate for current situation. Patient seen moving all 4 extremities independently. Relevant data reviewed Results from last 7 days Lab Units 09/14/23 0610 09/13/23 0531 09/12/23 0652 WHITE BLOOD CELL COUNT Thou/uL 14.5* 16.3* 16.4* HEMOGLOBIN g/dL 8.1* 8.5* 7.9* HEMATOCRIT % 26.0* 27.4* 24.9* PLATELET COUNT Thou/uL 448 485* 465* Results from last 7 days Lab Units 09/14/23 0610 09/13/23 0531 09/12/23 0652 SODIUM mmol/L 136 136 136 POTASSIUM mmol/L 4.0 3.3* 3.5 CHLORIDE mmol/L 103 102 103 CO2 mmol/L 28 27 26 BUN mg/dL <5* <5* <5* CREATININE mg/dL 0.5* 0.5* 0.4* EGFR >90 >90 >90 GLUCOSE mg/dL 132* 134* 127* CALCIUM mg/dL 8.6* 8.7 8.4* Results from last 7 days Lab Units 09/14/23 0610 ALK PHOS U/L 189* BILIRUBIN TOTAL mg/dL 0.5 ALBUMIN g/dL 3.9 ALT U/L 75* AST U/L 95* Results from last 7 days Lab Units 09/11/23 0532 MAGNESIUM mg/dL 2.0 Lab Results Component Value Date CALCIUM 8.6 (L) 09/14/2023 PHOS 3.0 09/11/2023 Results from last 7 days Lab Units 09/08/23 0423 INR 1.5 Results from last 7 days Lab Units 09/07/23 2243 TROPONIN I, HIGH SENSITIVITY ng/L 7 Glucose Date Value Ref Range Status 09/14/2023 132 (H) 74 - 106 mg/dL Final Comment: Fasting: <100 mg/dL, Non-Fasting: <200 mg/dL (ADA 2004) 09/13/2023 134 (H) 74 - 106 mg/dL Final Comment: Fasting: <100 mg/dL, Non-Fasting: <200 mg/dL (ADA 2004) 09/12/2023 127 (H) 74 - 106 mg/dL Final Comment: Fasting: <100 mg/dL, Non-Fasting: <200 mg/dL (ADA 2004) 09/11/2023 131 (H) 74 - 106 mg/dL Final Comment: Fasting: <100 mg/dL, Non-Fasting: <200 mg/dL (ADA 2004) POC Glucose Date Value Ref Range Status 09/11/2023 126 (H) 65 - 99 mg/dL Final 09/11/2023 131 (H) 65 - 99 mg/dL Final 09/11/2023 130 (H) 65 - 99 mg/dL Final 09/11/2023 120 (H) 65 - 99 mg/dL Final Inpatient Medications [Provider Held] enoxaparin (LOVENOX) injection for treatment, 1 mg/kg, Subcutaneous, Q12H folic acid, 1 mg, Oral, Daily methocarbamol, 1,000 mg, Oral, 4x Daily multivitamin with minerals, 1 tablet, Oral, Daily polyethylene glycol, 17 g, Oral, Daily pregabalin, 100 mg, Oral, TID senna-docusate, 2 tablet, Oral, Nightly thiamine, 200 mg, Oral, Daily acetaminophen (TYLENOL) tablet 975 mg 975 mg bisacodyl (DULCOLAX) suppository 10 mg 10 mg calcium carbonate (TUMS) chewable tablet 500 mg 500 mg lactulose (ENULOSE) 10 gm/15 mL solution 20 g 30 mL morphine (ROXANOL) 10 mg/5 mL solution 30 mg 30 mg naloxone (NARCAN) 0.4 mg/mL injection 0.4 mg 0.4 mg Assessment & Plan 28-y/o F w?anxiety and alcohol??Use?disorder who presented on 09/03/2023 to with severe abdominal pain, nausea, and vomiting. ?She was found to have pancreatitis that evolved into necrotizing pancreatitis. 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 ?She was transferred to [facility] for higher level of care. ? #?Acute?Necrotizing pancreatitis?2/2 alcohol use disorder # Bright red blood per rectum -?On admission?to??patient was?found to have interstitial pancreatitis with hepatic steatosis, minimal free fluid within the pelvis, and early necrosis along with elevated lipase. -??CT a/p?09/06 showed extensive necrotizing pancreatitis along with a pancreatic fluid collection. - Patient transferred to [facility] ICU - there appears to have been a component of volume overload and she was given lasix.? -?Procalcitonin 18.68.??Triglycerides 174.? - GI and surgery on board during this admission -?CRP is persistent - WBC continues to be elevated - Abdominal pain is persistent - CT a/p with hemorrhagic necrosis, about the same size although there is one portion along the mesentery which has mildly increased in size. No obvious PDA formation however per radiology many vessels are running through the area. -Blood cultures sterile after 5 days 09/13: Numerous events throughout the day. This morning's labs were reviewed and leukocytosis continues to improve with WBC count of 14.5. Hemoglobin essentially stable at 8.1 and CRP continues to be downtrending. No major electrolyte abnormalities today. Patient was initially planned for discharge home, however prior to discharging she had a large bloody bowel movement with bright red blood seen by nursing staff. Afterwards patient remains hemodynamically stable. Patient was reexamined at the bedside and abdominal exam unchanged from this morning. I discussed the patient's care with steeplechase jockey, Dr. Gill. At this time we will hold Lovenox and if the patient has repeat episode of bright red blood per rectum will get stat CT angio abdomen to evaluate for an active GI bleed. PCP Follow-up information: I spoke with the patient's PCP today, Dr. Lassiter. Dr. Lassiter was able to arrange for the patient to have an appointment at the clinic ext Sunday09/18/2023 at 9 AM and clinic is aware of the need to likely continue prescribing pain medications given her ongoing pancreatitis. Patient scheduled to see Dr. Ng at that visit. PCP office is requesting a fax of the discharge summary to [phone] PCP office contact phone number is Plan: -Appreciate recommendations from pain management. Plan will be for patient to go on p.o. morphine on discharge -Holding Lovenox for now as below -Will continue to trend CBC and electrolytes -?Trend CRP - low fat diet -?Serial examination of abdomen -If the patient has a repeat episode of bright red blood per rectum will get stat CT angio abdomen and pelvis to evaluate for an active bleed. If bleeding is identified patient will likely then need intervention from GI versus IR -Per GI, no current indication for endoscopic intervention/endoscopic drainage as patient is currently without overt sepsis. -Per general surgery, also ideally should not be any surgical intervention for pancreatitis unless development of abdominal compartment syndrome or uncontrolled bleeding. If worsening of leukocytosis, fevers, or hemodynamic instability will get repeat CT scan of abdomen #?Acute?Splenic vein and portal vein thrombosis -?CT scan noted developing thrombosis of the portal vein and splenic vein.?? -??PF4 came back negative and argatroban was discontinued. 09/13: As above patient had an episode of bright red blood per rectum this afternoon. Will be holding Lovenox. On discharge plan would be for transition to Eliquis and outpatient pharmacy aware of need to use coupon for this. ? -?Holding Lovenox - Transition to eliquis?upon DC or when hemoglobin is stable? #?Alcohol use disorder -?Reported that she drank about 8-9 nips of rum every day for the last month. ? - Counseled on??alcohol usage -PO thiamine 200 mg daily -?Multivitamin and folic acid daily ?? #?Acute hypoxic respiratory failure?(resolved) -Breathing well on room air #?Sinus tachycardia -?Mostly secondary to abdominal pain. ? -?Will continue on telemetry -?Follow-up inpatient pain management consult #??Hypokalemia - improved - will continue to trend and replete as needed? ? #?Normocytic anemia Hemoglobin?stable but downtrending? -Trend CBC and transfuse to maintain hemoglobin greater than 7 ? #?Thrombocytopenia?(resolved) VTE Time Out IMPROVE SCORE: 2 (09/08/2023 2:03 AM) Interpretation - High Risk Chemical Prophylaxis enoxaparin (LOVENOX) syringe 70 mg Subcutaneous Every 12 hours [ORDER ON HOLD or LAST DOSE HELD - Please Review] Enoxaparin Sodium 70 mg Last dose 09/14/2023 9:43 AM Mechanical Prophylaxis SCDs are ordered - Bilateral (Knee High) Patient currently has an VISHAL of 09/14/2023 Click to update the Expected Discharge Date Communication Patient DISPO pending stability of H&H given hematochezia Madelyn Adames DO 09/14/2023 4:07 PM I have spent 85 minutes face to face/on the unit on today's visit, of which more than 50% of the time was spent on counseling and /or co-ordination care which included review of the patient's chart, direct evaluation of the patient at the bedside multiple times throughout the day, coordination with case management, discussion with consulting providers, discussion with the patient's PCP, and additional charting/documentation Pain Management Progress Note Subjective Patient seen and evaluated during morning rounds Resting comfortably in bed, no acute distress Reports abdominal pain, distention; well controlled with morphine (oral or IV) Oral morphine 30 mg taken three times, IV morphine 3 mg taken 3 times in the last 24 hours Hopeful to be discharged home today, misses her family I am never going to touch alcohol again, this pain is worse than childbirth Review of Systems Constitutional: Negative for chills, fatigue and fever. Respiratory: Negative for cough, shortness of breath and wheezing. Cardiovascular: Negative for chest pain and leg swelling. Gastrointestinal: Positive for abdominal distention and abdominal pain. Negative for constipation, diarrhea and vomiting. Genitourinary: Negative for difficulty urinating. Musculoskeletal: Positive for back pain. Negative for neck pain. Skin: Negative for wound. Neurological: Negative for dizziness, weakness, numbness and headaches. Hematological: Negative for adenopathy. Psychiatric/Behavioral: Negative for sleep disturbance. Objective Last Vitals Pulse:98,Resp:17,BP:119/78,SpO2: 100 %,Weight:71.2 kg (156 lb 15.5 oz) Temp Last 24 hrs: Temp Min: 98.2 ?F (36.8 ?C) Max: 99 ?F (37.2 ?C) Intake/Output Summary (Last 24 hours) at 09/14/2023 1127 Last data filed at 09/13/2023 2000 Gross per 24 hour Intake 784 ml Output 0 ml Net 784 ml Physical Exam Constitutional: Appearance: Normal appearance. She is normal weight. HENT: Mouth/Throat: Mouth: Mucous membranes are moist. Eyes: Pupils: Pupils are equal, round, and reactive to light. Pulmonary: Effort: Pulmonary effort is normal. Breath sounds: No wheezing or rhonchi. Abdominal: General: Abdomen is protuberant. There is distension. Tenderness: There is abdominal tenderness. Musculoskeletal: General: No swelling or tenderness. Skin: General: Skin is dry. Neurological: Mental Status: She is alert and oriented to person, place, and time. Sensory: Sensation is intact. Motor: Motor function is intact. Psychiatric: Mood and Affect: Mood normal. Behavior: Behavior normal. Behavior is cooperative. Medications No medications prior to admission. Current Facility-Administered Medications: acetaminophen (TYLENOL) tablet 975 mg, 975 mg, Oral, Q8H PRN, Gaetano Alberto MD bisacodyl (DULCOLAX) suppository 10 mg, 10 mg, Rectal, Daily PRN, Gaetano Alberto MD calcium carbonate (TUMS) chewable tablet 500 mg, 500 mg, Oral, 4x Daily PRN, Gaetano Alberto MD, 500 mg at 09/14/23 1007 enoxaparin (LOVENOX) syringe 70 mg, 1 mg/kg, Subcutaneous, Q12H, Gaetano Alberto MD, 70 mg at 09/14/23 0943 folic acid (FOLVITE) tablet 1 mg, 1 mg, Oral, Daily, Gaetano Alberto MD, 1 mg at 09/14/23 0944 lactulose (ENULOSE) 10 gm/15 mL solution 20 g, 30 mL, Oral, Q4H PRN, Gaetano Alberto MD methocarbamol (ROBAXIN) tablet 1,000 mg, 1,000 mg, Oral, 4x Daily, Carla Gonzalez APRN, 1,000 mg at 09/14/23 0945 morphine (ROXANOL) 10 mg/5 mL solution 30 mg, 30 mg, Oral, Q4H PRN, Carla Gonzalez APRN, 30 mg at 09/14/23 0946 multivitamin with minerals tablet 1 tablet, 1 tablet, Oral, Daily, Gaetano Alberto MD, 1 tablet at 09/14/23 0945 naloxone (NARCAN) 0.4 mg/mL injection 0.4 mg, 0.4 mg, Intravenous, Q5 Min PRN, Gaetano Alberto MD polyethylene glycol (miraLAx) packet 17 g, 17 g, Oral, Daily, Gaetano Alberto MD, 17 g at 09/14/23 0943 pregabalin (LYRICA) capsule 100 mg, 100 mg, Oral, TID, Carla Gonzalez, [employer]SEM[employer]ER, 100 mg at 09/14/23 0945 senna-docusate (SENNA-S) 8.6-50 MG tablet 2 tablet, 2 tablet, Oral, Nightly, Gaetano Alberto MD, 2 tablet at 09/13/23 214 thiamine mononitrate (VITAMIN B-1) tablet 200 mg, 200 mg, Oral, Daily, Shannon Mitchell MD, 200 mg at 09/14/23 0946 Other testing: Relevant data reviewed Results from last 7 days Lab Units 09/14/23 0610 WHITE BLOOD CELL COUNT Thou/uL 14.5* HEMOGLOBIN g/dL 8.1* HEMATOCRIT % 26.0* PLATELET COUNT Thou/uL 448 Results from last 7 days Lab Units 09/14/23 0610 SODIUM mmol/L 136 POTASSIUM mmol/L 4.0 CHLORIDE mmol/L 103 CO2 mmol/L 28 BUN mg/dL <5* CREATININE mg/dL 0.5* EGFR >90 GLUCOSE mg/dL 132* CALCIUM mg/dL 8.6* No results found for: ETOH , AMPHTQTU , BENZOU , CANNAB , COCAINE , OPIATE , OXYCODONEUR . No results found. Assessment: 28-year-old female patient being medically managed for: 1. Intractable abdominal pain 2. Necrotizing pancreatitis 3. 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 Severe alcohol use disorder 5. Anxiety Plan: 1. Patient has been seen and evaluated by the multidisciplinary team including emergency medicine, critical care, surgery, gastroenterology, internal medicine during their hospitalization 2. Patient with history of anxiety, severe alcohol use disorder, who presented with intractable abdominal pain in the context of severe necrotizing pancreatitis 3. Continue multimodal pain control approach: continue morphine 30 mg every 4 hours as needed for moderate to severe pain with holding parameters; discontinue IV morphine in anticipation for discharge; continue Lyrica 100 mg 3 times daily for neuropathic pain and Robaxin 1000 milligrams 4 times daily for muscle spasms 4. Continue prophylactic bowel regimen to prevent opioid-induced constipation 5. Activity as tolerated, encourage out of bed and mobilization, incentive spirometry while on bedrest 6. Main plan per primary team - discussed with Dr Adames and patient 7. Prescriptions for morphine 30 mg #24 tablets, robaxin 500 mg #60 tablets, lyrica 100 mg #30 capsules sent to the [facility] outpatient pharmacy to fill prior to going home to [place] - transition care to PCP upon discharge as [place] out of state During the day of the visit, a total of 50 minutes was spent, with more than 50% spent with the patient to discuss the plan of care, including the following: - Interviewing & examining the patient - Chart review in preparation for the visit - I have personally reviewed the subspecialty notes and conversed with consulting physicians including but not limited to internal medicine, GI, critical care, surgery - I have personally reviewed the CT [employer]GER on 09/14/23 - Documenting in the patient record - Reviewing labs & radiology - Medication reconciliation with parenteral medication to be instituted in terms of IV morphine - Reviewing medication regimen and prescribing necessary medications for discharge - Counseling including medication side effects and dependency potential - Coordination of care including coordinating follow up appointments (PCP) Hope Patel APRN 09/14/2023 11:27 AM Available via [employer] Chief Complaint: Abdominal pain Subjective Seen examined at the bedside at approximately noon on 09/13/2023. Patient's sister at the bedside today. Currently the patient reports that she continues to have significant abdominal pain. She does continue to require IV pain medication for breakthrough pain. Discussed potential planning for returning home in the near future with the patient. Objective Last Vitals Pulse:(!) 114,Resp:18,BP:123/79,SpO2:98 %,O2 Device: room air (none), , Weight:71.2 kg (156 lb 15.5 oz) Body mass index is 26.94 kg/m?. Temp Last 24 hrs: Temp Min: 98.3 ?F (36.8 ?C) Max: 100.1 ?F (37.8 ?C) Physical Exam Gen: Adult female in no acute distress CVS: Regular rate and rhythm without murmur Resp: Clear to auscultation bilaterally. No significant wheezes or crackles. Abdomen/GI: Bowel sounds present but diminished. Abdomen is distended and tender to palpation throughout Ext: No significant peripheral edema. Neuro/psych: Alert and oriented x 3. Affect appropriate for current situation. Patient seen moving all 4 extremities independently. Relevant data reviewed Results from last 7 days Lab Units 09/13/23 0531 09/12/23 0652 09/11/23 0532 WHITE BLOOD CELL COUNT Thou/uL 16.3* 16.4* 14.7* HEMOGLOBIN g/dL 8.5* 7.9* 8.0* HEMATOCRIT % 27.4* 24.9* 24.4* PLATELET COUNT Thou/uL 485* 465* 403 Results from last 7 days Lab Units 09/13/23 0531 09/12/23 0652 09/11/23 0758 09/11/23 0532 SODIUM mmol/L 136 136 -- 136 POTASSIUM mmol/L 3.3* 3.5 -- 3.3* CHLORIDE mmol/L 102 103 -- 102 CO2 mmol/L 27 26 -- 27 BUN mg/dL <5* <5* -- <5* CREATININE mg/dL 0.5* 0.4* -- 0.5* EGFR >90 >90 -- >90 GLUCOSE mg/dL 134* 127* -- 131* GLUCOSE, POC -- -- < > -- CALCIUM mg/dL 8.7 8.4* -- 8.3* < > = values in this interval not displayed. Results from last 7 days Lab Units 09/11/23 0532 ALK PHOS U/L 218* BILIRUBIN TOTAL mg/dL 0.7 ALBUMIN g/dL 3.7 ALT U/L 44* AST U/L 86* Results from last 7 days Lab Units 09/11/23 0532 MAGNESIUM mg/dL 2.0 Lab Results Component Value Date CALCIUM 8.7 09/13/2023 PHOS 3.0 09/11/2023 Results from last 7 days Lab Units 09/08/23 0423 INR 1.5 Results from last 7 days Lab Units 09/07/23 2243 TROPONIN I, HIGH SENSITIVITY ng/L 7 Glucose Date Value Ref Range Status 09/13/2023 134 (H) 74 - 106 mg/dL Final Comment: Fasting: <100 mg/dL, Non-Fasting: <200 mg/dL (ADA 2004) 09/12/2023 127 (H) 74 - 106 mg/dL Final Comment: Fasting: <100 mg/dL, Non-Fasting: <200 mg/dL (ADA 2004) 09/11/2023 131 (H) 74 - 106 mg/dL Final Comment: Fasting: <100 mg/dL, Non-Fasting: <200 mg/dL (ADA 2004) 09/10/2023 111 (H) 74 - 106 mg/dL Final Comment: Fasting: <100 mg/dL, Non-Fasting: <200 mg/dL (ADA 2004) POC Glucose Date Value Ref Range Status 09/11/2023 126 (H) 65 - 99 mg/dL Final 09/11/2023 131 (H) 65 - 99 mg/dL Final 09/11/2023 130 (H) 65 - 99 mg/dL Final 09/11/2023 120 (H) 65 - 99 mg/dL Final Inpatient Medications enoxaparin (LOVENOX) injection for treatment, 1 mg/kg, Subcutaneous, Q12H folic acid, 1 mg, Oral, Daily methocarbamol, 1,000 mg, Oral, 4x Daily multivitamin with minerals, 1 tablet, Oral, Daily polyethylene glycol, 17 g, Oral, Daily pregabalin, 100 mg, Oral, TID senna-docusate, 2 tablet, Oral, Nightly thiamine, 200 mg, Oral, Daily acetaminophen (TYLENOL) tablet 975 mg 975 mg bisacodyl (DULCOLAX) suppository 10 mg 10 mg calcium carbonate (TUMS) chewable tablet 500 mg 500 mg lactulose (ENULOSE) 10 gm/15 mL solution 20 g 30 mL morphine (ROXANOL) 10 mg/5 mL solution 30 mg 30 mg morphine preservative free 10 mg/mL injection 3 mg 3 mg naloxone (NARCAN) 0.4 mg/mL injection 0.4 mg 0.4 mg Assessment & Plan 28-y/o F w?anxiety and alcohol??Use?disorder who presented on 09/03/2023 to with severe abdominal pain, nausea, and vomiting. ?She was found to have pancreatitis that evolved into necrotizing pancreatitis. 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 ?She was transferred to [facility] for higher level of care. ? #?Acute?Necrotizing pancreatitis?2/2 alcohol use disorder -?On admission?to??patient was?found to have interstitial pancreatitis with hepatic steatosis, minimal free fluid within the pelvis, and early necrosis along with elevated lipase. -??CT a/p?09/06 showed extensive necrotizing pancreatitis along with a pancreatic fluid collection. - Patient transferred to [facility] ICU - there appears to have been a component of volume overload and she was given lasix.? -?Procalcitonin 18.68.??Triglycerides 174.? - GI and surgery on board during this admission - CRP is persistent - WBC continues to be elevated - Abdominal pain is persistent - CT a/p with hemorrhagic necrosis, about the same size although there is one portion along the mesentery which has mildly increased in size. No obvious PDA formation however per radiology many vessels are running through the area. -Blood cultures sterile after 5 days ? Plan: -Appreciate recommendations from pain management. Patient will need a pain medication regimen that she could be discharged on which would then need to be continued by her PCP back in [place]. -Patient will need continued monitoring of hemoglobin - particularly while AC is on board -Per GI, no current indication for endoscopic intervention/endoscopic drainage as patient is currently without overt sepsis. -Per general surgery, also ideally should not be any surgical intervention for pancreatitis unless development of abdominal compartment syndrome or uncontrolled bleeding. If worsening of leukocytosis, fevers, or hemodynamic instability will get repeat CT scan of abdomen -?Trend CRP - low fat diet -?Serial examination of abdomen #?Alcohol use disorder -?Reported that she drank about 8-9 nips of rum every day for the last month. ? - Counseled on??alcohol usage -PO thiamine 200 mg daily -?Multivitamin and folic acid daily ?? 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 -??PF4 came back negative and argatroban was discontinued. ? -?Continue on therapeutic Lovenox - Transition to eliquis?upon DC or when hemoglobin is stable ? #?Acute hypoxic respiratory failure?(resolved) -Breathing well on room air #?Sinus tachycardia -?Mostly secondary to abdominal pain. ? -?Will continue on telemetry -?Follow-up inpatient pain management consult #??Hypokalemia - will continue to trend and replete as needed? ? #?Normocytic anemia Hemoglobin stable but downtrending -Trend CBC ? #?Thrombocytopenia?(resolved) Platelet count 485 VTE Time Out IMPROVE SCORE: 2 (09/08/2023 2:03 AM) Interpretation - High Risk Chemical Prophylaxis enoxaparin (LOVENOX) syringe 70 mg Subcutaneous Every 12 hours Enoxaparin Sodium 70 mg Last dose 09/13/2023 10:45 AM Mechanical Prophylaxis SCDs are ordered - Bilateral (Knee High) Patient currently has an VISHAL of 09/14/2023 Click to update the Expected Discharge Date Communication patient's sister updated at the bedside on 09/12 DISPO pending improvement in pain control and also disposition planning. Call has been made to the patient's PCP who will be in the office tomorrow 09/13. Will need to discuss with the PCP the urgency of follow-up for this patient and continuation of pain control medications when she does return to [place] Madelyn Adames DO 09/13/2023 5:03 PM I have spent 55 minutes face to face/on the unit on today's visit, of which more than 50% of the time was spent on counseling and /or co-ordination care which included review of the patient's chart, direct evaluation of the patient at the bedside, discussion with the patient's family members, discussion with consulting providers and additional physician team members, and additional charting/documentation. Pain Management Progress Note Principal Problem: Acute pancreatitis with infected necrosis, unspecified (POA: Yes) Active Problems: Alcohol use disorder (POA: Unknown) Acute thrombosis of splenic vein (POA: Unknown) Resolved Problems: Subjective Patient seen and evaluated during morning rounds Resting comfortably in bed, no acute distress Continues to endorse severe abdominal pain, rated 9/10 Has received 5 doses of p.o. morphine 30 mg and 2 doses of IV morphine in the last 24 hours Denies any opiate related side effects, including constipation, had bowel movement today Repeat CT abdomen yesterday with hemorrhagic necrosis, about the same size although there is one portion along the mesentery which has mildly increased in size, surgery consulted-no acute surgical intervention recommended, GI recommending follow-up outpatient unless patient develops signs of sepsis Review of Systems Constitutional: Negative for chills, fatigue and fever. Respiratory: Negative for cough, shortness of breath and wheezing. Cardiovascular: Negative for chest pain and leg swelling. Gastrointestinal: Positive for abdominal distention and abdominal pain. Negative for constipation, diarrhea and vomiting. Genitourinary: Negative for difficulty urinating. Musculoskeletal: Negative for back pain and neck pain. Skin: Negative for wound. Neurological: Negative for dizziness, weakness, numbness and headaches. Hematological: Negative for adenopathy. Psychiatric/Behavioral: Negative for sleep disturbance. Objective Last Vitals Pulse:97,Resp:19,BP:119/78,SpO2: 100 %,Weight:71.2 kg (156 lb 15.5 oz) Temp Last 24 hrs: Temp Min: 98.5 ?F (36.9 ?C) Max: 100.1 ?F (37.8 ?C) Intake/Output Summary (Last 24 hours) at 09/13/2023 1229 Last data filed at 09/13/2023 1000 Gross per 24 hour Intake 1090 ml Output 0 ml Net 1090 ml Physical Exam Constitutional: Appearance: Normal appearance. HENT: Mouth/Throat: Mouth: Mucous membranes are moist. Eyes: Pupils: Pupils are equal, round, and reactive to light. Pulmonary: Effort: Pulmonary effort is normal. Breath sounds: No wheezing or rhonchi. Abdominal: General: Abdomen is protuberant. There is distension. Tenderness: There is abdominal tenderness. There is guarding. Musculoskeletal: General: No swelling or tenderness. Skin: General: Skin is dry. Neurological: Mental Status: She is alert and oriented to person, place, and time. Sensory: Sensation is intact. Motor: Motor function is intact. Psychiatric: Mood and Affect: Mood normal. Behavior: Behavior normal. Behavior is cooperative. Medications No medications prior to admission. Current Facility-Administered Medications: acetaminophen (TYLENOL) tablet 975 mg, 975 mg, Oral, Q8H PRN, Gaetano Alberto MD bisacodyl (DULCOLAX) suppository 10 mg, 10 mg, Rectal, Daily PRN, Gaetano Alberto MD calcium carbonate (TUMS) chewable tablet 500 mg, 500 mg, Oral, 4x Daily PRN, Gaetano Alberto MD, 500 mg at 09/13/23 0153 enoxaparin (LOVENOX) syringe 70 mg, 1 mg/kg, Subcutaneous, Q12H, Gaetano Alberto MD, 70 mg at 09/13/23 1045 folic acid (FOLVITE) tablet 1 mg, 1 mg, Oral, Daily, Gaetano Alberto MD, 1 mg at 09/13/23 0924 lactulose (ENULOSE) 10 gm/15 mL solution 20 g, 30 mL, Oral, Q4H PRN, Gaetano Alberto MD methocarbamol (ROBAXIN) tablet 750 mg, 750 mg, Oral, TID, Gaetano Alberto MD, 750 mg at 09/13/23 0924 morphine (ROXANOL) 10 mg/5 mL solution 30 mg, 30 mg, Oral, Q4H PRN, Carla Gonzalez APRN, 30 mg at 09/13/23 0939 morphine preservative free 10 mg/mL injection 3 mg, 3 mg, Intravenous, Q4H PRN, Madelyn Killian Gerald, , 3 mg at 09/13/23 0622 multivitamin with minerals tablet 1 tablet, 1 tablet, Oral, Daily, Gaetano Alberto MD, 1 tablet at 09/13/23 0925 naloxone (NARCAN) 0.4 mg/mL injection 0.4 mg, 0.4 mg, Intravenous, Q5 Min PRN, Gaetano Alberto MD polyethylene glycol (miraLAx) packet 17 g, 17 g, Oral, Daily, Gaetano Alberto MD, 17 g at 09/10/23 1030 pregabalin (LYRICA) capsule 75 mg, 75 mg, Oral, BID, Gaetano Alberto MD, 75 mg at 09/13/23 09 senna-docusate (SENNA-S) 8.6-50 MG tablet 2 tablet, 2 tablet, Oral, Nightly, Gaetano Alberto MD, 2 tablet at 09/12/232013 thiamine mononitrate (VITAMIN B-1) tablet 200 mg, 200 mg, Oral, Daily, Shannon Mitchell MD, 200 mg at 09/13/23 0925 Other testing: Relevant data reviewed Results from last 7 days Lab Units 09/13/23 0531 WHITE BLOOD CELL COUNT Thou/uL 16.3* HEMOGLOBIN g/dL 8.5* HEMATOCRIT % 27.4* PLATELET COUNT Thou/uL 485* Results from last 7 days Lab Units 09/13/23 0531 SODIUM mmol/L 136 POTASSIUM mmol/L 3.3* CHLORIDE mmol/L 102 CO2 mmol/L 27 BUN mg/dL <5* CREATININE mg/dL 0.5* EGFR >90 GLUCOSE mg/dL 134* CALCIUM mg/dL 8.7 No results found for: ETOH , AMPHTQTU , BENZOU , CANNAB , COCAINE , OPIATE , OXYCODONEUR . US Venous Duplex Legs-Bilateral (DVT) Result Date: 09/08/2023 CLINICAL INFORMATION: Rule out DVT COMPARISON: None. TECHNIQUE: Real-time scanning of the bilateral lower extremity deep venous systems was performed assessing ashraf scale appearance, color and duplex Doppler flow and compressibility. FINDINGS: The bilateral distal external iliac veins demonstrate normal color flow. The common femoral, proximal deep femoral, proximal greater saphenous, femoral and popliteal veins show normal color flow and compressibility. The visualized calf veins also demonstrate normal color flow and are compressible. No Alegre's cyst. No evidence of acute deep vein thrombosis. XR Chest 1 view-Portable Result Date: 09/08/2023 CLINICAL INFORMATION: Hypoxia COMPARISON: CXR - 09/07/23. TECHNIQUE: AP view of the chest. FINDINGS: Heart/Mediastinum: The cardiac silhouette is unchanged. The mediastinal contours are relatively stable. Lungs: Persistent retrocardiac and right infrahilar/basilar opacities, similar to previous study. No effusion is evident. Osseous Structures: No acute abnormalities. Similar to previous study. XR Chest 1 view-Portable Result Date: 09/08/2023 CLINICAL INFORMATION: sob, hypoxia COMPARISON: Chest x-ray 09/06/2023. TECHNIQUE: AP view of the chest. FINDINGS: Heart/Mediastinum: The cardiac silhouette is unchanged. The mediastinal contours are relatively stable. Lungs: Mild hazy opacities in the lung bases and in the LEFT retrocardiac region, may reflect areas of atelectasis. No pleural effusions. Osseous Structures: No acute abnormalities. Mild hazy opacity of the lung bases and in the LEFT retrocardiac region, may reflect areas of atelectasis. Superimposed pneumonia cannot be excluded. Recommend attention to follow-up for resolution. I agree with the above resident preliminary report. If this exam was interpreted by a resident, I personally reviewed the image(s) and resident's interpretation and agree with the findings. Assessment: 28-year-old female patient being medically managed for: 1. Intractable abdominal pain 2. Necrotizing pancreatitis 3. 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 Severe alcohol use disorder 5. Anxiety Plan: 1. Patient has been seen and evaluated by the multidisciplinary team including emergency medicine, critical care, surgery, gastroenterology, internal medicine during their hospitalization 2. Patient with history of anxiety, severe alcohol use disorder, who presented with intractable abdominal pain in the context of severe necrotizing pancreatitis 3. Continue multimodal pain control approach: Liquid morphine solution 30 mg every 4 hours as needed based on numeric pain scale with holding parameters; IV morphine 3 mg as needed for breakthrough pain; increase Lyrica to 100 mg 3 times daily for neuropathic pain and increase Robaxin to 1000 milligrams 4 times daily for muscle spasms 4. Continue prophylactic bowel regimen to prevent opioid-induced constipation 5. Activity as tolerated, encourage out of bed and mobilization, incentive spirometry while on bedrest 6. Main plan per primary team 7. Upon hospital discharge, patient may receive a 5 to 7-day prescription for opiate-based medications per [place] state guidelines During the day of the visit, a total of 35 minutes was spent, with more than 50% spent with the patient to discuss the plan of care, including the following: - Interviewing & examining the patient - Chart review in preparation for the visit - I have personally reviewed the subspecialty notes and conversed with consulting physicians including but not limited to critical care, surgery, gastroenterology, internal medicine - I have personally reviewed the CT [employer]NAGER - Documenting in the patient record - Reviewing labs & radiology - Medication reconciliation with parenteral medication to be instituted in terms of IV morphine - Counseling including medication side effects and dependency potential Carla Gonzalez APRN 09/13/2023 12:29 PM Available via [employer] Summary: Pharmacy IV to PO Interchange Corrine Aguilar is a 28 y.o. female who qualifies for IV to PO therapy conversion. Inclusion & exclusion criteria per the Pharmacist Automatic Intravenous to Oral Conversion protocol have been evaluated. Given current status, patient has been determined to be eligible for conversion. Will change existing order for intravenous Thiamine to oral per protocol. Divya Bowens Title: Pharmacist Automatic Intravenous to Oral Conversion_[facility] Purpose: Agents included in this policy are eligible for automatic conversion from intravenous to oral formulation by the pharmacist if inclusion criteria and no exclusion criteria are met. Scope: Pharmacists Procedure: Pharmacists will screen inpatient medication orders for opportunity to convert the agents highlighted below from intravenous (IV) to oral (PO) form. Patients will be considered eligible for conversion if no exclusion criteria are present and if inclusion criteria are met. The Pharmacist Automatic Antimicrobial Renal Dose Adjustment_[facility] should be referenced for dosing recommendations for antimicrobials. All non-antimicrobial agents are 1:1 dosing conversions, excluding levothyroxine. Please see the conversion table below for levothyroxine IV to PO conversion recommendations. Pharmacists will discontinue intravenous orders as p er protocol: no cosign required and enter the oral formulation as p er protocol: no cosign required . IV to PO conversions for antimicrobials should be documented as ivents in Epic under A ntimicrobial stewardship with the subtype I V to PO . All other agents should be documented as “Route change with the subtype I V to PO . Ivents must be copied into the chart as a progress note. Antimicrobials eligible for IV to PO Conversion Azithromycin Ciprofloxacin Clindamycin Doxycycline Fluconazole Levofloxacin Linezolid Metronidazole Sulfamethoxazole/trimethoprim (round to nearest tablet strength) Non-antimicrobials eligible for IV to PO Conversion Famotidine Folic Acid Levetiracetam Levothyroxine Multivitamin Pantoprazole Thiamine Levothyroxine Intravenous to Oral Conversion Recommendations Intravenous Twice Weekly Dose Oral Total Daily Dose 50 mcg 25 mcg 100 mcg 37.5 mcg 125 mcg 50 mcg 150 mcg 62.5 mcg 175 mcg 75 mcg 225 mcg 87.5 mcg 250 mcg 100 mcg 275 mcg 112.5 mcg 300 mcg 125 mcg 325 mcg 137.5 mcg 375 mcg 150 mcg 400 mcg 162.5 mcg 425 mcg 175 mcg 450 mcg 187.5 mcg 500 mcg 200 mcg 550 mcg 212.5 mcg 575 mcg 225 mcg 600 mcg 250 mcg Exclusions ICU patients (contact provider prior to making conversions) Patient is NPO Severe nausea, vomiting, or severe diarrhea (including C. difficile infection) Patient receiving vasopressors Nasogastric suctioning Patient receiving chronic total parenteral nutrition Surgery within 24 hours Malabsorption syndrome Meningitis Endocarditis Bacteremia/Fungemia Osteomyelitis Neutropenia Inclusions Patients taking other medications orally or patients labeled as N PO except meds may be converted to oral formulations OR Patient is able to eat or tolerate enteral feeds with minimal residuals Definitions: Ivent: an ivent is a means of documentation in [facility] viewable only to pharmacists. Called by medicine regarding repeat CT findings concern for hemorrhagic pancreatitis. H/H has been stable, tachycardic but otherwise hemodynamically stable. Imaging reviewed with Dr. Moraes; collections actually appear stable to somewhat improved. No air in collections to suggest infected pancreatic necrosis. WBC likely from reactive inflammatory response No acute surgical intervention. Continue provide supportive care. If there is concern for infected pancreatic necrosis (rising WBC, fevers, hemodynamic instability) re-CT scan to evaluate for air within the collections. Additional management defer to GI. Ideally there should not be surgical intervention for pancreatitis unless patient develops abdominal compartment syndrome or uncontrollable bleeding. Pain Management Progress Note Principal Problem: Acute pancreatitis with infected necrosis, unspecified (POA: Yes) Active Problems: Alcohol use disorder (POA: Unknown) Acute thrombosis of splenic vein (POA: Unknown) Resolved Problems: Subjective Patient seen and evaluated during morning rounds Resting comfortably in bed, no acute distress Continues to endorse significant abdominal pain with only minimal relief from analgesic regimen Has received 4 doses of p.o. morphine 20 mg and 3 doses of IV morphine in the last 24 hours Denies any opiate related side effects, including constipation, had 2 bowel movements overnight Repeat CT abdomen ordered for today Review of Systems Constitutional: Negative for chills, fatigue and fever. Respiratory: Negative for cough, shortness of breath and wheezing. Cardiovascular: Negative for chest pain and leg swelling. Gastrointestinal: Positive for abdominal distention and abdominal pain. Negative for constipation, diarrhea and vomiting. Genitourinary: Negative for difficulty urinating. Musculoskeletal: Negative for back pain and neck pain. Skin: Negative for wound. Neurological: Negative for dizziness, weakness, numbness and headaches. Hematological: Negative for adenopathy. Psychiatric/Behavioral: Negative for sleep disturbance. Objective Last Vitals Pulse:(!) 101,Resp:18,BP:118/80,SpO2:95 %,Weight:71.2 kg (156 lb 15.5 oz) Temp Last 24 hrs: Temp Min: 98.4 ?F (36.9 ?C) Max: 99 ?F (37.2 ?C) Intake/Output Summary (Last 24 hours) at 09/12/2023 1157 Last data filed at 09/12/2023 0900 Gross per 24 hour Intake 480 ml Output -- Net 480 ml Physical Exam Constitutional: Appearance: Normal appearance. HENT: Mouth/Throat: Mouth: Mucous membranes are moist. Eyes: Pupils: Pupils are equal, round, and reactive to light. Pulmonary: Effort: Pulmonary effort is normal. Breath sounds: No wheezing or rhonchi. Abdominal: General: Abdomen is protuberant. There is distension. Tenderness: There is abdominal tenderness. There is guarding. Musculoskeletal: General: No swelling or tenderness. Skin: General: Skin is dry. Neurological: Mental Status: She is alert and oriented to person, place, and time. Sensory: Sensation is intact. Motor: Motor function is intact. Psychiatric: Mood and Affect: Mood normal. Behavior: Behavior normal. Behavior is cooperative. Medications No medications prior to admission. Current Facility-Administered Medications: acetaminophen (TYLENOL) tablet 975 mg, 975 mg, Oral, Q8H PRN, Gaetano Alberto MD bisacodyl (DULCOLAX) suppository 10 mg, 10 mg, Rectal, Daily PRN, Gaetano Alberto MD calcium carbonate (TUMS) chewable tablet 500 mg, 500 mg, Oral, 4x Daily PRN, Gaetano Alberto MD, 500 mg at 09/12/23 1130 enoxaparin (LOVENOX) syringe 70 mg, 1 mg/kg, Subcutaneous, Q12H, Gaetano Alberto MD, 70 mg at 09/12/23 0959 folic acid (FOLVITE) tablet 1 mg, 1 mg, Oral, Daily, Gaetano Alberto MD, 1 mg at 09/12/23 0959 ketorolac (TORADOL) injection 15 mg, 15 mg, Intravenous, Q6H PRN, Gaetano Alberto MD, 15 mg at 09/11/23 0449 lactulose (ENULOSE) 10 gm/15 mL solution 20 g, 30 mL, Oral, Q4H PRN, Gaetano Alberto MD methocarbamol (ROBAXIN) tablet 750 mg, 750 mg, Oral, TID, Gaetano Alberto MD, 750 mg at 09/12/23 0959 morphine (ROXANOL) 10 mg/5 mL solution 30 mg, 30 mg, Oral, Q4H PRN, Carla Gonzalez APRN morphine preservative free 10 mg/mL injection 3 mg, 3 mg, Intravenous, Q4H PRN, Carla Gonzalez APRN, 3 mg at 09/12/23 1130 multivitamin with minerals tablet 1 tablet, 1 tablet, Oral, Daily, Gaetano Alberto MD, 1 tablet at 09/12/23 0959 naloxone (NARCAN) 0.4 mg/mL injection 0.4 mg, 0.4 mg, Intravenous, Q5 Min PRN, Gaetano Alberto MD polyethylene glycol (miraLAx) packet 17 g, 17 g, Oral, Daily, Gaetano Alberto MD, 17 g at 09/10/23 1030 pregabalin (LYRICA) capsule 75 mg, 75 mg, Oral, BID, Gaetano Alberto MD, 75 mg at 09/12/23 0959 senna-docusate (SENNA-S) 8.6-50 MG tablet 2 tablet, 2 tablet, Oral, Nightly, Gaetano Alberto MD, 2 tablet at 09/11/232021 thiamine (VITAMIN B-1) injection 200 mg, 200 mg, Intravenous, Daily, Gaetano Alberto MD, 200 mg at 09/12/23 0959 Other testing: Relevant data reviewed Results from last 7 days Lab Units 09/12/23 0652 WHITE BLOOD CELL COUNT Thou/uL 16.4* HEMOGLOBIN g/dL 7.9* HEMATOCRIT % 24.9* PLATELET COUNT Thou/uL 465* Results from last 7 days Lab Units 09/12/23 0652 SODIUM mmol/L 136 POTASSIUM mmol/L 3.5 CHLORIDE mmol/L 103 CO2 mmol/L 26 BUN mg/dL <5* CREATININE mg/dL 0.4* EGFR >90 GLUCOSE mg/dL 127* CALCIUM mg/dL 8.4* No results found for: ETOH , AMPHTQTU , BENZOU , CANNAB , COCAINE , OPIATE , OXYCODONEUR . US Venous Duplex Legs-Bilateral (DVT) Result Date: 09/08/2023 CLINICAL INFORMATION: Rule out DVT COMPARISON: None. TECHNIQUE: Real-time scanning of the bilateral lower extremity deep venous systems was performed assessing ashraf scale appearance, color and duplex Doppler flow and compressibility. FINDINGS: The bilateral distal external iliac veins demonstrate normal color flow. The common femoral, proximal deep femoral, proximal greater saphenous, femoral and popliteal veins show normal color flow and compressibility. The visualized calf veins also demonstrate normal color flow and are compressible. No Alegre's cyst. No evidence of acute deep vein thrombosis. XR Chest 1 view-Portable Result Date: 09/08/2023 CLINICAL INFORMATION: Hypoxia COMPARISON: CXR - 09/07/23. TECHNIQUE: AP view of the chest. FINDINGS: Heart/Mediastinum: The cardiac silhouette is unchanged. The mediastinal contours are relatively stable. Lungs: Persistent retrocardiac and right infrahilar/basilar opacities, similar to previous study. No effusion is evident. Osseous Structures: No acute abnormalities. Similar to previous study. XR Chest 1 view-Portable Result Date: 09/08/2023 CLINICAL INFORMATION: sob, hypoxia COMPARISON: Chest x-ray 09/06/2023. TECHNIQUE: AP view of the chest. FINDINGS: Heart/Mediastinum: The cardiac silhouette is unchanged. The mediastinal contours are relatively stable. Lungs: Mild hazy opacities in the lung bases and in the LEFT retrocardiac region, may reflect areas of atelectasis. No pleural effusions. Osseous Structures: No acute abnormalities. Mild hazy opacity of the lung bases and in the LEFT retrocardiac region, may reflect areas of atelectasis. Superimposed pneumonia cannot be excluded. Recommend attention to follow-up for resolution. I agree with the above resident preliminary report. If this exam was interpreted by a resident, I personally reviewed the image(s) and resident's interpretation and agree with the findings. Assessment: 28-year-old female patient being medically managed for: 1. Intractable abdominal pain 2. Necrotizing pancreatitis 3. 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 Severe alcohol use disorder 5. Anxiety Plan: 1. Patient has been seen and evaluated by the multidisciplinary team including emergency medicine, critical care, surgery, gastroenterology, internal medicine during their hospitalization 2. Patient with history of anxiety, severe alcohol use disorder, who presented with intractable abdominal pain in the context of severe necrotizing pancreatitis 3. Continue multimodal pain control approach: Liquid morphine solution increasing to 30 mg every 4 hours as needed based on numeric pain scale with holding parameters; decrease IV morphine to 3 mg as needed for breakthrough pain; continue Lyrica 75 mg twice daily for neuropathic pain and Robaxin-750 milligrams 3 times daily for muscle spasms; IV Toradol 4. Continue prophylactic bowel regimen to prevent opioid-induced constipation 5. Activity as tolerated, encourage out of bed and mobilization, incentive spirometry while on bedrest 6. Main plan per primary team 7. Upon hospital discharge, patient may receive a 5 to 7-day prescription for opiate-based medications per [place] state guidelines During the day of the visit, a total of 35 minutes was spent, with more than 50% spent with the patient to discuss the plan of care, including the following: - Interviewing & examining the patient - Chart review in preparation for the visit - I have personally reviewed the subspecialty notes and conversed with consulting physicians including but not limited to critical care, surgery, gastroenterology, internal medicine - I have personally reviewed the CT [employer] OFFICE MANAGER - Documenting in the patient record - Reviewing labs & radiology - Medication reconciliation with parenteral medication to be instituted in terms of IV morphine - Counseling including medication side effects and dependency potential Carla Gonzalez APRN 09/12/2023 11:57 AM Available via [employer] Images from the original note were not included. Gastroenterology Progress Note SUBJECTIVE Patient seen and examined Continues to report upper abdominal pain Tolerating diet OBJECTIVE Physical Exam Pulse:(!) 101,Resp:18,BP:118/80,SpO2:95 %,Weight:71.2 kg (156 lb 15.5 oz) Temp Last 24 hrs: Temp Min: 98.4 ?F (36.9 ?C) Max: 99 ?F (37.2 ?C) Physical Exam Cardiovascular: Rate and Rhythm: Normal rate. Abdominal: General: Bowel sounds are normal. Palpations: Abdomen is soft. Neurological: Mental Status: She is alert. Meds Scheduled Meds: enoxaparin (LOVENOX) injection for treatment, 1 mg/kg, Subcutaneous, Q12H folic acid, 1 mg, Oral, Daily methocarbamol, 750 mg, Oral, TID multivitamin with minerals, 1 tablet, Oral, Daily polyethylene glycol, 17 g, Oral, Daily pregabalin, 75 mg, Oral, BID senna-docusate, 2 tablet, Oral, Nightly thiamine, 200 mg, Intravenous, Daily Continuous Infusions: PRN Meds: acetaminophen bisacodyl calcium carbonate ketorolac lactulose morphine morphine naloxone Recent Labs: Results from last 7 days Lab Units 09/12/23 0652 09/11/23 0532 09/10/23 0403 WHITE BLOOD CELL COUNT Thou/uL 16.4* 14.7* 10.7 HEMOGLOBIN g/dL 7.9* 8.0* 9.1* HEMATOCRIT % 24.9* 24.4* 28.4* PLATELET COUNT Thou/uL 465* 403 276 MCV fL 93 91 93 Results from last 7 days Lab Units 09/12/23 0652 09/11/23 0532 09/10/23 0403 SODIUM mmol/L 136 136 134* POTASSIUM mmol/L 3.5 3.3* 3.9 CHLORIDE mmol/L 103 102 104 CO2 mmol/L 26 27 23 BUN mg/dL <5* <5* <5* CREATININE mg/dL 0.4* 0.5* 0.5* CALCIUM mg/dL 8.4* 8.3* 8.6* EGFR >90 >90 >90 Results from last 7 days Lab Units 09/11/23 0532 09/10/23 0403 09/08/23 0423 09/07/23 2243 AST U/L 86* -- 45* 41* ALT U/L 44* -- 11 10 ALK PHOS U/L 218* -- 153* 140* BILIRUBIN TOTAL mg/dL 0.7 -- 0.9 1.0 ALBUMIN g/dL 3.7 -- 3.6 3.7 PROTEIN, TOTAL g/dL 6.0 -- 5.6* 5.7 LIPASE U/L -- 56* -- 96* Imaging Studies: Procedures: ASSESSMENT & PLAN Assessment 28 y.o female with PMH of ETOH use disorder who is admitted with severe pancreatitis and peripancreatic fluid collections c/b with splenic and portal vein thrombosis. ? She continues to have abdominal pain Plan Analgesic as needed Diet as tolerated She is scheduled for repeat abdominal CT (? Pseudocyst) Will follow-up abdominal CT Signed: PRISCILLA Moya 09/12/2023 9:08 AM Associated attestation - Adelso Gill MD - 09/12/2023 4:38 PM EDT The patient was seen and examined with Mr Healy. I agree with his consultation note, findings, assessment and plan. Briefly, the patient is a 28-year-old female with alcoholic pancreatitis and peripancreatic fluid collections as well as splanchnic vein thrombosis. WBC count has been rising but CRP has downtrending. The patient has evidence of pancreatitis and post pancreatitis sequelae including peripancreatic fluid collections. We reviewed the images and discussed our overall impression of patient's condition and treatment recommendations.. We discussed the natural history of the pancreatic fluid collections.We went over the nomenclature and difference of Pancreatic pseudocyst and WON. Furthermore, we added that typically these fluid collections tend to resolve on their own and interventions are not indicated. However, we added that intervention is needed when patients are symptomatic and we see supportive image findings. Typically we wait for atleast 8 weeks since the onset of symptoms or if the patient is symptomatic with signs of sepsis/ fever/ chills). Currently, the patient is not without signs of sepsis and the collections haven't completely matured for endoscopic drainage. Furthermore, If we were to perform endoscopic drainage, the patient will need multiple procedures and this should be planned with a GI physician locally in her area of residence. However, if she develops any signs of sepsis, this will need to performed more urgently here. Adelso Gill MD Chief Complaint: Necrotizing pancreatitis Subjective Patient seen and examined at bedside Feels bloated, had some straining with bowel movement Hemoglobin has downtrended. WBC is uptrending Tolerating PO intake however has quite a bit of abdominal pain Objective Last Vitals Pulse:(!) 101,Resp:18,BP:118/80,SpO2:95 %,O2 Device: room air (none), , Weight:71.2 kg (156 lb 15.5 oz) Body mass index is 26.94 kg/m?. Temp Last 24 hrs: Temp Min: 98.4 ?F (36.9 ?C) Max: 99 ?F (37.2 ?C) Physical Exam Gen: Young female laying in bed in [facility] ENT:No oral lesions moist oral mucosa noted Resp: CTAB Cardio: RRR, No murmurs GI: Abdomen is distended and tender to palpation Extremities: no clubbing cyanosis or edema, warm extremities Affect: normal Neuro: moves all extremities spontaneously, no overt focal deficits Relevant data reviewed Results from last 7 days Lab Units 09/12/23 0652 09/11/23 0532 09/10/23 0403 WHITE BLOOD CELL COUNT Thou/uL 16.4* 14.7* 10.7 HEMOGLOBIN g/dL 7.9* 8.0* 9.1* HEMATOCRIT % 24.9* 24.4* 28.4* PLATELET COUNT Thou/uL 465* 403 276 Results from last 7 days Lab Units 09/11/23200409/11/23 0758 09/11/23 0532 09/10/23 0408 09/10/23 0403 09/09/23 0821 09/09/23 0434 SODIUM mmol/L -- -- 136 -- 134* -- 135* POTASSIUM mmol/L -- -- 3.3* -- 3.9 -- 3.1* CHLORIDE mmol/L -- -- 102 -- 104 -- 99 CO2 mmol/L -- -- 27 -- 23 -- 27 BUN mg/dL -- -- <5* -- <5* -- <5* CREATININE mg/dL -- -- 0.5* -- 0.5* -- 0.5* EGFR -- -- >90 -- >90 -- >90 GLUCOSE mg/dL -- -- 131* -- 111* -- 106 GLUCOSE, POC mg/dL 126* < > -- < > -- < > -- CALCIUM mg/dL -- -- 8.3* -- 8.6* -- 9.5 < > = values in this interval not displayed. Results from last 7 days Lab Units 09/11/23 0532 ALK PHOS U/L 218* BILIRUBIN TOTAL mg/dL 0.7 ALBUMIN g/dL 3.7 ALT U/L 44* AST U/L 86* Results from last 7 days Lab Units 09/11/23 0532 MAGNESIUM mg/dL 2.0 Lab Results Component Value Date CALCIUM 8.3 (L) 09/11/2023 PHOS 3.0 09/11/2023 Results from last 7 days Lab Units 09/08/23 0423 INR 1.5 Results from last 7 days Lab Units 09/07/23 2243 TROPONIN I, HIGH SENSITIVITY ng/L 7 Glucose Date Value Ref Range Status 09/11/2023 131 (H) 74 - 106 mg/dL Final Comment: Fasting: <100 mg/dL, Non-Fasting: <200 mg/dL (ADA 2004) 09/10/2023 111 (H) 74 - 106 mg/dL Final Comment: Fasting: <100 mg/dL, Non-Fasting: <200 mg/dL (ADA 2004) 09/09/2023 106 74 - 106 mg/dL Final Comment: Fasting: <100 mg/dL, Non-Fasting: <200 mg/dL (ADA 2004) 09/08/2023 95 74 - 106 mg/dL Final Comment: Fasting: <100 mg/dL, Non-Fasting: <200 mg/dL (ADA 2004) POC Glucose Date Value Ref Range Status 09/11/2023 126 (H) 65 - 99 mg/dL Final 09/11/2023 131 (H) 65 - 99 mg/dL Final 09/11/2023 130 (H) 65 - 99 mg/dL Final 09/11/2023 120 (H) 65 - 99 mg/dL Final Inpatient Medications enoxaparin (LOVENOX) injection for treatment, 1 mg/kg, Subcutaneous, Q12H folic acid, 1 mg, Oral, Daily methocarbamol, 750 mg, Oral, TID multivitamin with minerals, 1 tablet, Oral, Daily polyethylene glycol, 17 g, Oral, Daily pregabalin, 75 mg, Oral, BID senna-docusate, 2 tablet, Oral, Nightly thiamine, 200 mg, Intravenous, Daily acetaminophen (TYLENOL) tablet 975 mg 975 mg bisacodyl (DULCOLAX) suppository 10 mg 10 mg calcium carbonate (TUMS) chewable tablet 500 mg 500 mg ketorolac (TORADOL) injection 15 mg 15 mg lactulose (ENULOSE) 10 gm/15 mL solution 20 g 30 mL morphine (ROXANOL) 10 mg/5 mL solution 20 mg 20 mg morphine preservative free 10 mg/mL injection 5 mg 5 mg naloxone (NARCAN) 0.4 mg/mL injection 0.4 mg 0.4 mg Imaging Studies ? CT a/p Continued findings of hemorrhagic necrosis related to the patient's pancreatitis. There are hypodense regions within the collection which appears somewhat similar to the prior exam and probably represent hemorrhagic components. Overall, most of the components of the lateral collections are unchanged in size, noting that there is a portion in the RIGHT inferior aspect along the mesentery which has mildly increased in size. ? Note that there is no obvious extravasation of contrast, but the patient would be at risk for pseudoaneurysm formation and continued follow-up of the patient's hemodynamic status is recommended. ? 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 ? Bilateral pleural effusions ? LEFT nonobstructing nephrolithiasis. ? These findings were discussed with SHANNON MITCHELL via secure text messenger at 09/12/2023 12:28 PM. Assessment & Plan 28-y/o F w anxiety and alcohol Use disorder who presented on 09/03/2023 to with severe abdominal pain, nausea, and vomiting. ?She was found to have pancreatitis that evolved into necrotizing pancreatitis. 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 ?She was transferred to [facility] for higher level of care. ? #?Acute Necrotizing pancreatitis 2/2 alcohol use disorder - On admission to patient was found to have interstitial pancreatitis with hepatic steatosis, minimal free fluid within the pelvis, and early necrosis along with elevated lipase. - CT a/p 09/06 showed extensive necrotizing pancreatitis along with a pancreatic fluid collection. - Patient transferred to [facility] ICU - there appears to have been a component of volume overload and she was given lasix. - Procalcitonin 18.68.??Triglycerides 174.? - GI and surgery on board during this admission - CRP is persistent - WBC is uptrending - Abdominal pain is persistent - CT a/p with hemorrhagic necrosis, about the same size although there is one portion along the mesentery which has mildly increased in size. No obvious PDA formation however per radiology many vessels are running through the area. There is downtrend of hemoglobin and patient is on AC for management of splenic and portal vein thrombosis ? - Discussed results of CT scan with patient. Need continued monitoring of hemoglobin - particularly while AC is on board - CT scan reviewed with GI - Call to gen surg RE CT - Trend CRP - Afebrile however leukocytosis is trending up - although possible stress reaction/reaction from widespread necrosis she is at risk for infected necrosis - will d/w ID - Advanced to low fat diet - Serial examination of abdomen - Follow-up blood cultures ? # Alcohol use disorder - Reported that she drank about 8-9 nips of rum every day for the last month. ? - Counseled on alcohol usage - IV thiamine 200 mg daily - Multivitamin and folic acid daily ? ? #?Acute Splenic vein and portal vein thrombosis - CT scan noted developing thrombosis of the portal vein and splenic vein.?? - ?PF4 came back negative and argatroban was discontinued. ? - Continue on therapeutic Lovenox - Transition to eliquis upon DC or when hemoglobin is stable ? # Acute hypoxic respiratory failure?(resolved) -Breathing well on room air #?Sinus tachycardia - Mostly secondary to abdominal pain. ? - Will continue on telemetry - Follow-up inpatient pain management consult # ?Hypokalemia - Repleted ? ? # Normocytic anemia Hemoglobin downtrending -Trend CBC ? # Thrombocytopenia?(resolved) Platelet count 465 ? VTE Time Out IMPROVE SCORE: 2 (09/08/2023 2:03 AM) Interpretation - High Risk Chemical Prophylaxis enoxaparin (LOVENOX) syringe 70 mg Subcutaneous Every 12 hours Heparin (Porcine) in NaCl, Enoxaparin Sodium 70 mg Last dose 09/11/2023 11:39 PM Mechanical Prophylaxis SCDs are ordered - Bilateral (Knee High) Patient currently has an VISHAL of 09/14/2023 Click to update the Expected Discharge Date Communication W patient above DISPO Needs more inpatient care Shannon Mitchell MD 09/12/2023 8:13 AM Pain Management Progress Note Principal Problem: Acute pancreatitis with infected necrosis, unspecified (POA: Yes) Resolved Problems: Subjective Patient seen and evaluated during morning rounds Resting comfortably in bed, no acute distress Continues to endorse significant abdominal pain, currently rated 8.5/10, as well as significant distention Remains on morphine 20 mg every 4 hours ATC and has received 3 doses of IV morphine in the last 24 hours Denies any opiate related side effects, including constipation Review of Systems Constitutional: Negative for chills, fatigue and fever. Respiratory: Negative for cough, shortness of breath and wheezing. Cardiovascular: Negative for chest pain and leg swelling. Gastrointestinal: Positive for abdominal distention and abdominal pain. Negative for constipation, diarrhea and vomiting. Genitourinary: Negative for difficulty urinating. Musculoskeletal: Negative for back pain and neck pain. Skin: Negative for wound. Neurological: Negative for dizziness, weakness, numbness and headaches. Hematological: Negative for adenopathy. Psychiatric/Behavioral: Negative for sleep disturbance. Objective Last Vitals Pulse:74,Resp:18,BP:137/71,SpO2: 99 %,Weight:71.2 kg (156 lb 15.5 oz) Temp Last 24 hrs: Temp Min: 98.2 ?F (36.8 ?C) Max: 99.8 ?F (37.7 ?C) No intake or output data in the 24 hours ending 09/11/23 1311 Physical Exam Constitutional: Appearance: Normal appearance. HENT: Mouth/Throat: Mouth: Mucous membranes are moist. Eyes: Pupils: Pupils are equal, round, and reactive to light. Pulmonary: Effort: Pulmonary effort is normal. Breath sounds: No wheezing or rhonchi. Abdominal: General: Abdomen is protuberant. There is distension. Tenderness: There is abdominal tenderness. There is guarding. Musculoskeletal: General: No swelling or tenderness. Skin: General: Skin is dry. Neurological: Mental Status: She is alert and oriented to person, place, and time. Sensory: Sensation is intact. Motor: Motor function is intact. Psychiatric: Mood and Affect: Mood normal. Behavior: Behavior normal. Behavior is cooperative. Medications No medications prior to admission. Current Facility-Administered Medications: acetaminophen (TYLENOL) tablet 975 mg, 975 mg, Oral, Q8H PRN, Gaetano Alberto MD bisacodyl (DULCOLAX) suppository 10 mg, 10 mg, Rectal, Daily PRN, Gaetano Alberto MD calcium carbonate (TUMS) chewable tablet 500 mg, 500 mg, Oral, 4x Daily PRN, Gaetano Alberto MD, 500 mg at 09/10/23 2259 enoxaparin (LOVENOX) syringe 70 mg, 1 mg/kg, Subcutaneous, Q12H, Gaetano Alberto MD, 70 mg at 09/11/23 0947 folic acid (FOLVITE) tablet 1 mg, 1 mg, Oral, Daily, Gaetano Alberto MD, 1 mg at 09/11/23 0947 ketorolac (TORADOL) injection 15 mg, 15 mg, Intravenous, Q6H PRN, Gaetano Alberto MD, 15 mg at 09/11/23 0449 lactulose (ENULOSE) 10 gm/15 mL solution 20 g, 30 mL, Oral, Q4H PRN, Gaetano Alberto MD methocarbamol (ROBAXIN) tablet 750 mg, 750 mg, Oral, TID, Gaetano Alberto MD, 750 mg at 09/11/23 0947 morphine (ROXANOL) 10 mg/5 mL solution 20 mg, 20 mg, Oral, Q4H PRN, Carla Gonzalez APRN morphine preservative free 10 mg/mL injection 5 mg, 5 mg, Intravenous, Q4H PRN, Carla Gonzalez APRN multivitamin with minerals tablet 1 tablet, 1 tablet, Oral, Daily, Gaetano Alberto MD, 1 tablet at 09/11/23 0947 naloxone (NARCAN) 0.4 mg/mL injection 0.4 mg, 0.4 mg, Intravenous, Q5 Min PRN, Gaetano Alberto MD polyethylene glycol (miraLAx) packet 17 g, 17 g, Oral, Daily, Gaetano Alberto MD, 17 g at 09/10/23 1030 pregabalin (LYRICA) capsule 75 mg, 75 mg, Oral, BID, Gaetano Alberto MD, 75 mg at 09/11/23 0947 senna-docusate (SENNA-S) 8.6-50 MG tablet 2 tablet, 2 tablet, Oral, Nightly, Gaetano Alberto MD, 2 tablet at 09/10/23 2247 thiamine (VITAMIN B-1) injection 200 mg, 200 mg, Intravenous, Daily, Gaetano Alberto MD, 200 mg at 09/11/23 0947 Other testing: Relevant data reviewed Results from last 7 days Lab Units 09/11/23 0532 WHITE BLOOD CELL COUNT Thou/uL 14.7* HEMOGLOBIN g/dL 8.0* HEMATOCRIT % 24.4* PLATELET COUNT Thou/uL 403 Results from last 7 days Lab Units 09/11/23 1144 09/11/23 0758 09/11/23 0532 SODIUM mmol/L -- -- 136 POTASSIUM mmol/L -- -- 3.3* CHLORIDE mmol/L -- -- 102 CO2 mmol/L -- -- 27 BUN mg/dL -- -- <5* CREATININE mg/dL -- -- 0.5* EGFR -- -- >90 GLUCOSE mg/dL -- -- 131* GLUCOSE, POC mg/dL 130* < > -- CALCIUM mg/dL -- -- 8.3* < > = values in this interval not displayed. No results found for: ETOH , AMPHTQTU , BENZOU , CANNAB , COCAINE , OPIATE , OXYCODONEUR . US Venous Duplex Legs-Bilateral (DVT) Result Date: 09/08/2023 CLINICAL INFORMATION: Rule out DVT COMPARISON: None. TECHNIQUE: Real-time scanning of the bilateral lower extremity deep venous systems was performed assessing ashraf scale appearance, color and duplex Doppler flow and compressibility. FINDINGS: The bilateral distal external iliac veins demonstrate normal color flow. The common femoral, proximal deep femoral, proximal greater saphenous, femoral and popliteal veins show normal color flow and compressibility. The visualized calf veins also demonstrate normal color flow and are compressible. No Alegre's cyst. No evidence of acute deep vein thrombosis. XR Chest 1 view-Portable Result Date: 09/08/2023 CLINICAL INFORMATION: Hypoxia COMPARISON: CXR - 09/07/23. TECHNIQUE: AP view of the chest. FINDINGS: Heart/Mediastinum: The cardiac silhouette is unchanged. The mediastinal contours are relatively stable. Lungs: Persistent retrocardiac and right infrahilar/basilar opacities, similar to previous study. No effusion is evident. Osseous Structures: No acute abnormalities. Similar to previous study. XR Chest 1 view-Portable Result Date: 09/08/2023 CLINICAL INFORMATION: sob, hypoxia COMPARISON: Chest x-ray 09/06/2023. TECHNIQUE: AP view of the chest. FINDINGS: Heart/Mediastinum: The cardiac silhouette is unchanged. The mediastinal contours are relatively stable. Lungs: Mild hazy opacities in the lung bases and in the LEFT retrocardiac region, may reflect areas of atelectasis. No pleural effusions. Osseous Structures: No acute abnormalities. Mild hazy opacity of the lung bases and in the LEFT retrocardiac region, may reflect areas of atelectasis. Superimposed pneumonia cannot be excluded. Recommend attention to follow-up for resolution. I agree with the above resident preliminary report. If this exam was interpreted by a resident, I personally reviewed the image(s) and resident's interpretation and agree with the findings. Assessment: 28-year-old female patient being medically managed for: 1. Intractable abdominal pain 2. Necrotizing pancreatitis 3. 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 Severe alcohol use disorder 5. Anxiety Plan: 1. Patient has been seen and evaluated by the multidisciplinary team including emergency medicine, critical care, surgery, gastroenterology, internal medicine during their hospitalization 2. Patient with history of anxiety, severe alcohol use disorder, who presented with intractable abdominal pain in the context of severe necrotizing pancreatitis 3. Continue multimodal pain control approach: Morphine 20 mg every 4 hours as needed based on numeric pain scale with holding parameters; increase IV morphine to 5 mg as needed for breakthrough pain; continue Lyrica 75 mg twice daily for neuropathic pain and Robaxin-750 milligrams 3 times daily for muscle spasms; IV Toradol 4. Continue prophylactic bowel regimen to prevent opioid-induced constipation 5. Activity as tolerated, encourage out of bed and mobilization, incentive spirometry while on bedrest 6. Main plan per primary team 7. Upon hospital discharge, patient may receive a 5 to 7-day prescription for opiate-based medications per [place] state guidelines During the day of the visit, a total of 35 minutes was spent, with more than 50% spent with the patient to discuss the plan of care, including the following: - Interviewing & examining the patient - Chart review in preparation for the visit - I have personally reviewed the subspecialty notes and conversed with consulting physicians including but not limited to critical care, surgery, gastroenterology, internal medicine - I have personally reviewed the CT [employer] on 09/11/23 - Documenting in the patient record - Reviewing labs & radiology - Medication reconciliation with parenteral medication to be instituted in terms of IV morphine - Counseling including medication side effects and dependency potential Carla Gonzalez APRN 09/11/2023 1:11 PM Available via [employer] Chief Complaint: Acute pancreatitis Subjective Patient seen and examined at bedside this morning Still having abdominal pain - has received IV analgesics in the last 24 hours Willing to try solid foods Denies nausea, vomiting, headache Objective Last Vitals Pulse:74,Resp:18,BP:137/71,SpO2: 99 %,O2 Device: room air (none), , Weight:71.2 kg (156 lb 15.5 oz) Body mass index is 26.94 kg/m?. Temp Last 24 hrs: Temp Min: 98.2 ?F (36.8 ?C) Max: 99.8 ?F (37.7 ?C) Physical Exam Gen: Young female in NAD ENT:No oral lesions moist oral mucosa noted Resp: CTAB Cardio: RRR, No murmurs GI: Abdomen is distended and tender on palpation Extremities: no clubbing cyanosis or edema, warm extremities Affect: normal Neuro: moves all extremities spontaneously, no overt focal deficits Relevant data reviewed Results from last 7 days Lab Units 09/11/23 0532 09/10/2340209/09/23433 WHITE BLOOD CELL COUNT Thou/uL 14.7* 10.7 9.7 HEMOGLOBIN g/dL 8.0* 9.1* 9.9* HEMATOCRIT % 24.4* 28.4* 30.7* PLATELET COUNT Thou/uL 403 276 142* Results from last 7 days Lab Units 09/11/23 0758 09/11/23 0532 09/10/23 0408 09/10/23 0403 09/09/23 0809/09/23433 SODIUM mmol/L -- 136 -- 134* -- 135* POTASSIUM mmol/L -- 3.3* -- 3.9 -- 3.1* CHLORIDE mmol/L -- 102 -- 104 -- 99 CO2 mmol/L -- 27 -- 23 -- 27 BUN mg/dL -- <5* -- <5* -- <5* CREATININE mg/dL -- 0.5* -- 0.5* -- 0.5* EGFR -- >90 -- >90 -- >90 GLUCOSE mg/dL -- 131* -- 111* -- 106 GLUCOSE, POC mg/dL 120* -- < > -- < > -- CALCIUM mg/dL -- 8.3* -- 8.6* -- 9.5 < > = values in this interval not displayed. Results from last 7 days Lab Units 09/11/23 0532 ALK PHOS U/L 218* BILIRUBIN TOTAL mg/dL 0.7 ALBUMIN g/dL 3.7 ALT U/L 44* AST U/L 86* Results from last 7 days Lab Units 09/11/23 0532 MAGNESIUM mg/dL 2.0 Lab Results Component Value Date CALCIUM 8.3 (L) 09/11/2023 PHOS 3.0 09/11/2023 Results from last 7 days Lab Units 09/08/23 0423 INR 1.5 Results from last 7 days Lab Units 09/07/23 2243 TROPONIN I, HIGH SENSITIVITY ng/L 7 Glucose Date Value Ref Range Status 09/11/2023 131 (H) 74 - 106 mg/dL Final Comment: Fasting: <100 mg/dL, Non-Fasting: <200 mg/dL (ADA 2004) 09/10/2023 111 (H) 74 - 106 mg/dL Final Comment: Fasting: <100 mg/dL, Non-Fasting: <200 mg/dL (ADA 2004) 09/09/2023 106 74 - 106 mg/dL Final Comment: Fasting: <100 mg/dL, Non-Fasting: <200 mg/dL (ADA 2004) 09/08/2023 95 74 - 106 mg/dL Final Comment: Fasting: <100 mg/dL, Non-Fasting: <200 mg/dL (ADA 2004) POC Glucose Date Value Ref Range Status 09/11/2023 120 (H) 65 - 99 mg/dL Final 09/11/2023 117 (H) 65 - 99 mg/dL Final 09/10/2023 157 (H) 65 - 99 mg/dL Final 09/10/2023 124 (H) 65 - 99 mg/dL Final Inpatient Medications enoxaparin (LOVENOX) injection for treatment, 1 mg/kg, Subcutaneous, Q12H folic acid, 1 mg, Oral, Daily methocarbamol, 750 mg, Oral, TID morphine, 20 mg, Oral, Q4H multivitamin with minerals, 1 tablet, Oral, Daily polyethylene glycol, 17 g, Oral, Daily pregabalin, 75 mg, Oral, BID senna-docusate, 2 tablet, Oral, Nightly thiamine, 200 mg, Intravenous, Daily acetaminophen (TYLENOL) tablet 975 mg 975 mg bisacodyl (DULCOLAX) suppository 10 mg 10 mg calcium carbonate (TUMS) chewable tablet 500 mg 500 mg ketorolac (TORADOL) injection 15 mg 15 mg lactulose (ENULOSE) 10 gm/15 mL solution 20 g 30 mL morphine preservative free 10 mg/mL injection 4 mg 4 mg naloxone (NARCAN) 0.4 mg/mL injection 0.4 mg 0.4 mg Imaging Studies - Assessment & Plan 28-y/o F w anxiety and alcohol Use disorder who presented on 09/03/2023 to with severe abdominal pain, nausea, and vomiting. She was found to have pancreatitis that evolved into necrotizing pancreatitis. Her course has been complicated by portal vein and splenic vein thrombosis. She was transferred to [facility] for higher level of care. ? # Acute Necrotizing pancreatitis 2/2 alcohol use disorder - On admission to patient was found to have interstitial pancreatitis with hepatic steatosis, minimal free fluid within the pelvis, and early necrosis along with elevated lipase. - CT a/p 09/06 showed extensive necrotizing pancreatitis along with a pancreatic fluid collection. - Patient transferred to [facility] ICU - there appears to have been a component of volume overload and she was given lasix. - Procalcitonin 18.68. Triglycerides 174. - GI and surgery on board during this admission - CRP is trending down however WBC is trending up - Discussed extensively with GI today - Per GI recommendation would defer CT abdomen/pelvis until the AM - Follow-up inpatient pain management - Trend CRP - Advanced to low fat diet - Serial examination of abdomen - Follow-up blood cultures ? # Alcohol use disorder - Reported that she drank about 8-9 nips of rum every day for the last month. 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 - PF4 came back negative and argatroban was discontinued. - Continue on therapeutic Lovenox - Transition to eliquis # Acute hypoxic respiratory failure (resolved) -Breathing well on room air # Sinus tachycardia - Mostly secondary to abdominal pain. - Will continue on telemetry - Follow-up inpatient pain management consult # Hypokalemia - Repleted ? # Normocytic anemia Hemoglobin 9.1. -Trend CBC ? # Thrombocytopenia (resolved) Platelet count 276. ? VTE Time Out IMPROVE SCORE: 2 (09/08/2023 2:03 AM) Interpretation - High Risk Chemical Prophylaxis enoxaparin (LOVENOX) syringe 70 mg Subcutaneous Every 12 hours Heparin (Porcine) in NaCl, Enoxaparin Sodium 70 mg Last dose 09/10/2023 10:39 PM Mechanical Prophylaxis SCDs are ordered - Bilateral (Knee High) Patient currently has an VISHAL of 09/12/2023 Click to update the Expected Discharge Date Communication w patient at bedside DISPO Pending CRP in the AM Shannon Mitchell MD 09/11/2023 8:25 AM Images from the original note were not included. Gastroenterology Progress Note SUBJECTIVE Patient seen and examined Continues to have abdominal pain, however, pain somewhat less today OBJECTIVE Physical Exam Pulse:74,Resp:18,BP:137/71,SpO2: 99 %,Weight:71.2 kg (156 lb 15.5 oz) Temp Last 24 hrs: Temp Min: 98.2 ?F (36.8 ?C) Max: 99.8 ?F (37.7 ?C) Physical Exam Cardiovascular: Rate and Rhythm: Normal rate. Abdominal: General: Bowel sounds are normal. Palpations: Abdomen is soft. Neurological: Mental Status: She is alert. Meds Scheduled Meds: enoxaparin (LOVENOX) injection for treatment, 1 mg/kg, Subcutaneous, Q12H folic acid, 1 mg, Oral, Daily methocarbamol, 750 mg, Oral, TID morphine, 20 mg, Oral, Q4H multivitamin with minerals, 1 tablet, Oral, Daily polyethylene glycol, 17 g, Oral, Daily pregabalin, 75 mg, Oral, BID senna-docusate, 2 tablet, Oral, Nightly thiamine, 200 mg, Intravenous, Daily Continuous Infusions: PRN Meds: acetaminophen bisacodyl calcium carbonate ketorolac lactulose morphine naloxone Recent Labs: Results from last 7 days Lab Units 09/11/23 0532 09/10/23 0403 09/09/23 0434 WHITE BLOOD CELL COUNT Thou/uL 14.7* 10.7 9.7 HEMOGLOBIN g/dL 8.0* 9.1* 9.9* HEMATOCRIT % 24.4* 28.4* 30.7* PLATELET COUNT Thou/uL 403 276 142* MCV fL 91 93 93 Results from last 7 days Lab Units 09/11/23 0532 09/10/23 0403 09/09/23 0434 SODIUM mmol/L 136 134* 135* POTASSIUM mmol/L 3.3* 3.9 3.1* CHLORIDE mmol/L 102 104 99 CO2 mmol/L 27 23 27 BUN mg/dL <5* <5* <5* CREATININE mg/dL 0.5* 0.5* 0.5* CALCIUM mg/dL 8.3* 8.6* 9.5 EGFR >90 >90 >90 Results from last 7 days Lab Units 09/11/23 0532 09/10/23 0403 09/08/23 0423 09/07/23 2243 AST U/L 86* -- 45* 41* ALT U/L 44* -- 11 10 ALK PHOS U/L 218* -- 153* 140* BILIRUBIN TOTAL mg/dL 0.7 -- 0.9 1.0 ALBUMIN g/dL 3.7 -- 3.6 3.7 PROTEIN, TOTAL g/dL 6.0 -- 5.6* 5.7 LIPASE U/L -- 56* -- 96* Imaging Studies: Procedures: ASSESSMENT & PLAN Assessment 28 y.o female with PMH of ETOH use disorder who is admitted with severe pancreatitis and peripancreatic fluid collections c/b with splenic and portal vein thrombosis. She continues to have abdominal pain, however, pain is somewhat less today Plan Continue analgesic as needed Continue anticoagulation Trend CRP Low-fat diet Signed: PRISCILLA Moya 09/11/2023 8:22 AM Associated attestation - Gentry Wang MD - 09/11/2023 5:33 PM EDT The patient was seen and examined with Mr Healy. I agree with his consultation note, findings, assessment and plan. Transferred to the general medicine service. Signed out to hospitalist attending, Dr. Peña. Ms. Aguilar is a 28-year-old female with anxiety and alcohol disorder who presented on 09/03/2023 to with severe abdominal pain, nausea, and vomiting. She was found to have pancreatitis that evolved into necrotizing pancreatitis. Her course has been complicated by portal vein and splenic vein thrombosis. She was transferred to [facility] for higher level of care. On admission at outside hospital, found to have interstitial pancreatitis with hepatic steatosis, minimal free fluid within the pelvis, and early necrosis along with elevated lipase. CT scan on 09/06 showed extensive necrotizing pancreatitis along with a pancreatic fluid collection. Patient has received pain management by inpatient pain management service. Gastroenterology and surgery have both evaluated the patient. No current intervention. Diet is being advanced as tolerated. For her thrombosis, patient was switched from heparin to argatroban and then to Lovenox as there was initially concern of HIT but PF4 antibodies came back negative. Will need monitoring for complications of necrotizing pancreatitis. Patient and her family have expressed interest in the patient transferring back to hospital in [place] for closer social support as family is based there. Plan: - Trend CRP - Interval CT scans - Follow-up pain management - Advance diet as tolerated - Serial examination of abdomen - Follow-up blood cultures - Continue on therapeutic Lovenox Please see the note from the attending and resident for further details and additional components of the plan. Keshav Sosa MD Internal Medicine, PGY-1 09/10/2023 5:25 PM Available on [employer] Text Summary: Family Communication Spoke with the patient's aunt at bedside. Provided updates and answered questions. They expressed that they would like for the patient to be transferred back to [place] if she is on the general medicine floor. RN stated that she spoke with the patient's mother and patient's father as well. Keshav Sosa MD Internal Medicine, PGY-1 09/10/2023 3:49 PM Available on [employer] Text Images from the original note were not included. Gastroenterology Progress Note SUBJECTIVE Patient seen and examined Continues to have abdominal pain OBJECTIVE Physical Exam Pulse:(!) 120,Resp:(!) 21,BP:132/81,SpO2:95 %,Weight:71.2 kg (156 lb 15.5 oz) Temp Last 24 hrs: Temp Min: 98.2 ?F (36.8 ?C) Max: 99.8 ?F (37.7 ?C) Physical Exam Cardiovascular: Rate and Rhythm: Normal rate. Abdominal: General: Bowel sounds are normal. Palpations: Abdomen is soft. Tenderness: There is abdominal tenderness. Neurological: Mental Status: She is alert. Meds Scheduled Meds: enoxaparin (LOVENOX) injection for treatment, 1 mg/kg, Subcutaneous, Q12H folic acid, 1 mg, Oral, Daily methocarbamol, 750 mg, Oral, TID multivitamin with minerals, 1 tablet, Oral, Daily pregabalin, 50 mg, Oral, BID senna-docusate, 2 tablet, Oral, Nightly thiamine, 200 mg, Intravenous, Daily Continuous Infusions: PRN Meds: acetaminophen bisacodyl calcium carbonate HYDROmorphone ketorolac lactulose naloxone Recent Labs: Results from last 7 days Lab Units 09/10/23 0403 09/09/23 04309/08/23 1531 WHITE BLOOD CELL COUNT Thou/uL 10.7 9.7 10.2 HEMOGLOBIN g/dL 9.1* 9.9* 8.6* HEMATOCRIT % 28.4* 30.7* 26.0* PLATELET COUNT Thou/uL 276 142* 98* MCV fL 93 93 92 Results from last 7 days Lab Units 09/10/233 09/09/234 09/08/23 0423 SODIUM mmol/L 134* 135* 134* POTASSIUM mmol/L 3.9 3.1* 3.4 CHLORIDE mmol/L 104 99 99 CO2 mmol/L 23 27 29 BUN mg/dL <5* <5* <5* CREATININE mg/dL 0.5* 0.5* 0.4* CALCIUM mg/dL 8.6* 9.5 8.6* EGFR >90 >90 >90 Results from last 7 days Lab Units 09/10/2340209/08/23 0423 09/07/23 2243 AST U/L -- 45* 41* ALT U/L -- 11 10 ALK PHOS U/L -- 153* 140* BILIRUBIN TOTAL mg/dL -- 0.9 1.0 ALBUMIN g/dL -- 3.6 3.7 PROTEIN, TOTAL g/dL -- 5.6* 5.7 LIPASE U/L 56* -- 96* Imaging Studies: Abdominal CT dated 09/07/2023 PANCREAS: There is significant destruction of the pancreas replaced?by fluid due to pancreatic necrosis there are foci of pancreatic tissue ? seen in the distal body and tail but the most of the body and ? pancreatic head replaced by fluid. The fluid is extending cephalad and caudad. ? ? There is developing thrombosis of portal vein and splenic vein ? SPLEEN: Unremarkable IMPRESSION: ? Severe pancreatitis with necrosis portal and splenic venous thrombosis ? Growing amount of ascites and pleural effusion. Bibasilar atelectasis. ? Procedures: ASSESSMENT & PLAN Assessment 28-year-old female with history of EtOH use disorder presenting with severe pancreatitis and significant fluid collections replacing most of the pancreas. This has been complicated by thrombosis of splenic and portal vein possible confluence affecting SMV. ? She did develop thrombocytopenia and therefore heparin drip was discontinued. Patient is now on lovenox She continues to have abdominal pain Plan Trend CRP Hydration Analgesic as needed Low-fat diet as tolerated Consider repeating abdominal CT Signed: PRISCILLA Moya 09/10/2023 9:08 AM Associated attestation - Adelso Gill MD - 09/10/2023 1:09 PM EDT The patient was seen and examined with Mr Healy. I agree with his consultation note, findings, assessment and plan. Briefly, the patient is a 28 y.o female with PMH of ETOH use disorder who is admitted with severe pancreatitis and peripancreatic fluid collections c/b with splenic and portal vein thrombosis. Please continue supportive care, trend CRP, low fat diet. Interval imaging depending on CRP trend and clinical course. Continue AC. Adelso Gill MD Summary: Surgery Progress Note Surgery Progress Note Subjective Patient seen for morning rounds. Continues to have diffuse, significant abdominal pain in all quadrants with radiation to her back. She getting fair relief with current analgesia regimen. He has been tolerating a clear liquid diet without issue or worsening of nausea. She has been able to get out of bed and ambulate in her room. She is voiding freely without any urinary symptoms. She notes bowel sounds and flatus with a bowel movement yesterday. ROS: Constitutional: No fever, + chills. Respiratory: No shortness of breath Cardiovascular: No chest pain, No palpitations. Gastrointestinal: + nausea, No vomiting, No diarrhea, No heartburn. Genitourinary: No dysuria, No urinary frequency, No urinary urgency. Musculoskeletal: No joint pain, No muscle pain Neurologic: Alert and oriented x 4. Objective Last Vitals Pulse:(!) 113,Resp:19,BP:117/66,SpO2:92 %,Weight:71.2 kg (156 lb 15.5 oz) Temp Last 24 hrs: Temp Min: 98.4 ?F (36.9 ?C) Max: 99.8 ?F (37.7 ?C) Intake/Output Summary (Last 24 hours) at 09/10/2023 1648 Last data filed at 09/10/2023 0800 Gross per 24 hour Intake 580 ml Output 1200 ml Net -620 ml PHYSICAL EXAM: General: Alert and Oriented x3. No acute distress but obvious discomfort Cardiovascular: Regular rate and rhythm. No murmur. Respiratory: Lungs clear to auscultation bilaterally. Abdomen: Positive bowel sounds. Soft, mottled. Tender to palpation all quadrants. Mildly distended. Extremities: No cyanosis. No edema. Skin: Warm & Dry. No rashes. DIAGNOSTICS: Diagnostic Data: White Blood Cell Count Date Value Ref Range Status 09/10/2023 10.7 4.0 - 11.0 Thou/uL Final Hemoglobin Date Value Ref Range Status 09/10/2023 9.1 (L) 11.7 - 15.7 g/dL Final Hematocrit Date Value Ref Range Status 09/10/2023 28.4 (L) 35.0 - 47.0 % Final Platelet Count Date Value Ref Range Status 09/10/2023 276 150 - 450 Thou/uL Final Lab Results Component Value Date NA 134 (L) 09/10/2023 K 3.9 09/10/2023 CL 104 09/10/2023 CO2 23 09/10/2023 BUN <5 (L) 09/10/2023 CREAT 0.5 (L) 09/10/2023 GLUC 118 (H) 09/10/2023 GLUC 111 (H) 09/10/2023 Lab Results Component Value Date CALCIUM 8.6 (L) 09/10/2023 MG 2.1 09/10/2023 PHOS 2.4 09/10/2023 Assessment & Plan Assessment: 28F with severe necrotizing pancreatitis with associated ascites, as well as non-occlusive thrombus of splenic vein, portal vein, SMV near the confluence with splenic/portal veins. Plan: Necrotizing pancreatitis, severe: No suggestion of abdominal compartment syndrome. No leukocytosis and remains afebrile. Ongoing supportive care Mesenteric venous thrombus: Continues on therapeutic Lovenox ID: No antibiotics warranted PAIN/NAUSEA MANAGEMENT: Multimodal regimen, consider pain management consult for improved control DIET: Tolerating clear liquids BOWEL FUNCTION: Continue bowel regimen ACTIVITY: As tolerated, encourage out of bed to chair and ambulation LABS/DIAGNOSTICS: Noted. Repeat in AM. CM/SW: Services to be determined DISPOSITION: Okay to transition out of PCU. Surgery to sign off at this time. Please reconsult as necessary Dr. Moraes in to see patient and aware of above VTE Time Out IMPROVE SCORE: 2 (09/08/2023 2:03 AM) Interpretation - High Risk Chemical Prophylaxis enoxaparin (LOVENOX) syringe 70 mg Subcutaneous Every 12 hours Heparin (Porcine) in NaCl, Enoxaparin Sodium 70 mg Last dose 09/10/2023 10:29 AM Mechanical Prophylaxis SCDs are ordered Mechanical VTE prophylaxis NOT ordered. Click here to order if appropriate Mechanical Prophylaxis Contraindication: None - I will order SCDs Sign PRISCILLA Ng 09/10/2023 4:48 PM Associated attestation - Carlee Moraes MD - 09/10/2023 7:27 PM EDT ACT Surgery Attending Attestation Patient discussed with PRISCILLA Chong. I agree with the note as documented below. 28F admitted with severe necrotizing pancreatitis. Seems to be improving. No evidence of abdominal compartment syndrome or infected pancreatic necrosis. Continue care per primary/GI. Please call us back with questions or concerns. Carlee Moraes MD Acute Care/Trauma Surgery [phone] Critical Care Progress Note HPI / Subjective 28 y o F w ongoing alcohol abuse, anxiety, tubal ligation presents on 09/06 as a transfer from [facility] for management of acute necrotizing pancreatitis. She initially presents on 09/02 w abd pain, n, vomiting in setting of elevated lipase (523) and lactate 7. A 2nd repeat CT abd done prior to transfer (09/05) is + for extensive pancreatic necrosis with replacement of pancreatic head by flui as well as portal vein thrombosis and splenic vein thrombosis. subsequently initiated on heparin drip. Overnight event: none Assessment & Plan 1- acute necrotizing pancreatitis 2- portal V and splenic V thrombosis 3- thombocytopenia 4- alcohol abuse 5- at risk for abd compartment syndrome Neuro: 1- pain: currently on toradol and dilaudid PRN, Dr Hawk following Cardiovasc/Resp: 1- HD stable, sinus tachycardia from pain 100-110 2- Resp stable for now, on room air 3- Portal V and splenic V thrombosis: sec to pancreatitis (found in 20% of severe acute pancreatitis) - PF4AB neg for HIT, on LMWH - at risk for mesenteric ischemia, f/u lactate closely as clinically indicated (pain, hypotension...) ID: 1- currently HD stable, no fever, no leukocytosis, currently no indication for abx. Discussed w GI and sx GI: 1- clear liquid diet, does not tolerate PO diet 2- at risk for ischemic bowel and abd compartment syndrome, will cont to monitor clinically, cont full AC 3- pancreatitis: possible collection on CT ?, fine needle aspiration vs necrosecotmy are considerations as per GI Renal: 1- external cath Hemato: 1- thrombocytopenia: possibly sec to alcohol, improving, PF4ab neg for HIT 2- lower extremities neg for DVT Prophylaxis: -DVT (LMWH) Code Status: full code Doing well clinically, on room air, no underlying sepsis, can be managed on the floor if no indication for fine needle aspiration today. Will discuss w GI/Sx Critical Care Time Spent: 45 minutes Objective Last Vitals: Pulse:(!) 105, Resp:(!) 23, BP:BP Min: 119/79 Max: 130/74 MAP: SpO2:94 % CVP: Temp Last 24 hrs: Temp Min: 98.2 ?F (36.8 ?C) Max: 98.5 ?F (36.9 ?C) Physical Exam: AOx3, follows command No focal deficit Tachycardic BS bilat, no wheezing Abd is soft, painful on palpation Periumbilical levido reticularis No leg swelling Intake & Output Intake/Output Summary (Last 24 hours) at 09/10/2023 0811 Last data filed at 09/10/2023 0600 Gross per 24 hour Intake 1038.92 ml Output 2100 ml Net -1061.08 ml Lines: Peripheral IV - Single Lumen (Adult) 09/07/23 2250 median vein (underside of arm), left 22 gauge (Active) Present on admission no 09/08/23 0200 Indication/Daily Review of Necessity medication therapy, intermittent 09/08/23 0200 Site Preparation/Maintenance dressing: dry and intact 09/08/23 0200 Securement sterile tape strips, secured with 09/08/23 0200 Patency/Maintenance scrubbed needleless connector prior to use;flushed without difficulty 09/08/23 0200 Pump Type and Serial Number infusion pump 09/08/23 0200 NS Flush Volume 10 mL 09/08/23 0400 Phlebitis 0-->no symptoms 09/08/23 0200 Infiltration 0-->no symptoms 09/08/23 0200 Peripheral IV - Single Lumen (Adult) 09/08/23 0000 22 gauge (Active) Present on admission no 09/08/23 0400 Indication/Daily Review of Necessity medication therapy, intermittent 09/08/23 0400 Site Preparation/Maintenance dressing: dry and intact 09/08/23 040 Securement sterile tape strips, secured with 09/08/23 0400 Patency/Maintenance scrubbed needleless connector prior to use;flushed without difficulty 09/08/23 0400 Pump Type and Serial Number infusion pump 09/08/23 0400 NS Flush Volume 10 mL 09/08/23 0400 Phlebitis 0-->no symptoms 09/08/23 040 Infiltration 0-->no symptoms 09/08/23 0400 Drains: Urethral Catheter (Adult) 09/08/23 0100 (Active) Daily Review of Necessity need for frequent and accurate urine output measurements 09/08/23 040 Hygiene urethral catheter care done 09/08/23 040 Securement secured to upper leg with adhesive device 09/08/23 040 Tolerance no signs/symptoms of discomfort 09/08/23 040 Urine Output (mL) 100 09/08/23 0900 Imaging Studies Sign Madelyn Hernandez MD 09/10/2023 8:11 AM Images from the original note were not included. CRITICAL CARE PROGRESS NOTE CC: Necrotizing pancreatitis SUBJECTIVE DAY #2. Overnight, she continues to have abdominal pain despite Dilaudid and Keralac. She states that she is having difficulty eating. No nausea or vomiting but after 25% of her meals, she feels full and has increased abdominal pain. Spoke with the patient's aunt at bedside. Provided updates and answered questions. They are interested in being transferred back to [place] as soon as possible for social support. OBJECTIVE HR (!) 107 RR 20 BP 119/79 SpO2 95 % O2 Device: room air (none) Weight 70.4 kg (155 lb 3.3 oz) Body mass index is 26.64 kg/m?. Temp Min: 98.2 ?F (36.8 ?C) Max: 99.1 ?F (37.3 ?C) Vitals: Tachycardic, normothermic Gen: Lying in bed, in no apparent distress Eye: Anicteric sclera HENT: Oral mucosa is mildly dry. No cervical lymphadenopathy appreciated. CVS: S1 and S2 noted. Regular rate and rhythm. Resp: Bilateral breath sounds appreciated. Normal work of breathing on room air. GI: Soft, tender to palpation diffusely, no guarding noted. Walzel sign noted. See image of abdomen below. Ext: No bilateral lower extremity edema noted. Neuro: Alert and oriented x 3. Moving all extremities spontaneously. Psych: Mood and manner appropriate to clinical situation. Image of Abdomen Peripheral IV - Single Lumen (Adult) 09/07/23 2250 median vein (underside of arm), left 22 gauge (Active) Number of days: 1 Peripheral IV - Single Lumen (Adult) 09/08/23 0000 22 gauge (Active) Number of days: 0 Urethral Catheter (Adult) 09/08/23 0100 (Active) Number of days: 0 Urethral Catheter (Adult) 09/08/23 0100 (Active) Number of days: 0 Urethral Catheter (Adult) 09/08/23 0100 (Active) Number of days: 0 Pertinent Labs: WBC 10.7, hemoglobin 9.1, sodium 134, creatinine 0.5, heparin PF4 antibody negative, blood glucose within appropriate range, blood cultures remain sterile, Labs: Lab Results Component Value Date WBC 10.7 09/10/2023 HGB 9.1 (L) 09/10/2023 HCT 28.4 (L) 09/10/2023 MCV 93 09/10/2023 PLT 276 09/10/2023 Lab Results Component Value Date GLUC 102 (H) 09/10/2023 CALCIUM 8.6 (L) 09/10/2023 NA 134 (L) 09/10/2023 K 3.9 09/10/2023 CO2 23 09/10/2023 CL 104 09/10/2023 BUN <5 (L) 09/10/2023 CREAT 0.5 (L) 09/10/2023 Results from last 7 days Lab Units 09/10/23 0403 HEMOGLOBIN g/dL 9.1* WHITE BLOOD CELL COUNT Thou/uL 10.7 PLATELET COUNT Thou/uL 276 Results from last 7 days Lab Units 09/10/23 0408 09/10/23 0403 SODIUM mmol/L -- 134* POTASSIUM mmol/L -- 3.9 CO2 mmol/L -- 23 CHLORIDE mmol/L -- 104 MAGNESIUM mg/dL -- 2.1 PHOSPHORUS mg/dL -- 2.4 BUN mg/dL -- <5* CREATININE mg/dL -- 0.5* GLUCOSE mg/dL -- 111* GLUCOSE, POC mg/dL 102* -- Results from last 7 days Lab Units 09/07/23 2243 TROPONIN I, HIGH SENSITIVITY ng/L 7 Results from last 7 days Lab Units 09/07/23 2301 COLOR UA Yellow CLARITY UA Clear SPECIFIC GRAVITY UA 1.013 PH UA 8.5* PROTEIN UA Small (30 mg/dL)* GLUCOSE, URINE mg/dL Negative KETONES UA Negative BLOOD UA Large* NITRITE UA Negative LEUKOCYTE ESTERASE UA Negative BILIRUBIN UA Negative Imaging Studies No new images Medications Medications Scheduled Medication Ordered Dose/Rate, Route, Frequency Last Action enoxaparin (LOVENOX) syringe 70 mg 1 mg/kg, SC, Q12H Given, 70 mg at 09/088 folic acid (FOLVITE) tablet 1 mg 1 mg, PO, Daily Given, 1 mg at 09/08 846 multivitamin with minerals tablet 1 tablet 1 tablet, PO, Daily Given, 1 tablet at 09/08 846 senna-docusate (SENNA-S) 8.6-50 MG tablet 2 tablet 2 tablet, PO, Nightly Ordered thiamine (VITAMIN B-1) injection 200 mg 200 mg, IV, Daily Given, 200 mg at 09/08 846 PRN Medication Ordered Dose/Rate, Route, Frequency Last Action bisacodyl (DULCOLAX) suppository 10 mg 10 mg, RE, Daily PRN Ordered calcium carbonate (TUMS) chewable tablet 500 mg 500 mg, PO, 4x Daily PRN Given, 500 mg at 09/08 193 HYDROmorphone (DILAUDID) injection 0.5 mg 0.5 mg, IV, Q4H PRN Given, 0.5 mg at 09/09 022 ketorolac (TORADOL) injection 15 mg 15 mg, IV, Q6H PRN Given, 15 mg at 09/09 0616 lactulose (ENULOSE) 10 gm/15 mL solution 20 g 30 mL, PO, Q4H PRN Ordered naloxone (NARCAN) 0.4 mg/mL injection 0.4 mg 0.4 mg, IV, Q5 Min PRN Ordered ASSESSMENT & PLAN Ms. Aguilar is a 28-year-old female with anxiety and alcohol disorder who presented on 09/03/2023 to with severe abdominal pain, nausea, and vomiting. She was found to have pancreatitis that evolved into necrotizing pancreatitis. Her course has been complicated by portal vein and splenic vein thrombosis. She was transferred to [facility] for higher level of care. Neuro/Psych: Alcohol use disorder Reported that she drank about 8-9 nips of rum every day for the last month. Alert and oriented x 3 - Provided counseling regarding alcohol usage - IV thiamine 200 mg daily - Multivitamin and folic acid daily Resp: Acute hypoxic respiratory failure (resolved) -Breathing well on room air CV: Sinus tachycardia Mostly secondary to abdominal pain. - Will continue on telemetry -Follow-up inpatient pain management consult GI: Necrotizing pancreatitis On admission, found to have interstitial pancreatitis with hepatic steatosis, minimal free fluid within the pelvis, and early necrosis along with elevated lipase. CT scan on 09/06 showed extensive necrotizing pancreatitis along with a pancreatic fluid collection. Etiology of pancreatitis 2/2 alcohol use disorder. Spoke with Keaton with GI who stated that no needle aspiration is needed. No current intervention as per surgery. Procalcitonin 18.68. Triglycerides 174. -Follow-up inpatient pain management -Trend CRP - Continue advancing to full liquid diet and low-fat diet as tolerated -Will do interval imaging depending on CRP trend and clinical course -Serial examination of abdomen - Follow-up blood cultures Renal/Metabolic/endocrine: Hypokalemia (resolved) K 3.9. ID: - Low threshold for antibiotics if the patient decompensates Rheum/MSK: - No active issues Heme/Onc: Splenic vein and portal vein thrombosis CT scan noted developing thrombosis of the portal vein and splenic vein. This is secondary to intimal inflammation 2/2 pancreatitis leading to platelet aggregation and thrombosis. PF4 came back negative and argatroban was discontinued. -Continue on therapeutic Lovenox Normocytic anemia Hemoglobin 9.1. -Trend CBC Thrombocytopenia (resolved) Platelet count 276. Code Status: Full Code Fluids/Feeding: Diet Clear Liquid VTE Prophylaxis VTE Time Out IMPROVE SCORE: 2 (09/08/2023 2:03 AM) Interpretation - High Risk Chemical Prophylaxis enoxaparin (LOVENOX) syringe 70 mg Subcutaneous Every 12 hours Heparin (Porcine) in NaCl, Enoxaparin Sodium 70 mg Last dose 09/09/2023 10:58 PM Sign Trish Sosa MD Internal Medicine, PGY-1 09/10/2023 6:34 AM Available on [place] Text Associated attestation - Madelyn Hernandez MD - 09/10/2023 2:00 PM EDT Attestation to the resident note with the same day of service: I have seen and examined the patient. I have reviewed the relevant labs, radiologic studies and independent crop consultant notes. Please refer to my note. Gastroenterology Progress Note Principal Problem: Acute pancreatitis with infected necrosis, unspecified (POA: Yes) Resolved Problems: 28 y.o. female Assessment & Plan Assessment 28-year-old female with alcoholism presenting with severe pancreatitis and significant fluid collections replacing most of the pancreas. This has been complicated by thrombosis of splenic and portal vein possible confluence affecting SMV. She did develop thrombocytopenia and therefore heparin drip was discontinued. Patient is now on Argatroban. Plan Continue supportive measures and analgesia. Continue to monitor temp curve and WBC as this will serve as surrogate markers for possible development of infected necrosis. Continue to monitor glucose, liver chemistries and calcium closely. Please obtain CRP level as this will help monitor overall inflammatory response. Patient has been tolerating clear liquids and may advance now to full liquid diet. Will advance slowly as she still has significant abdominal pain. Subjective Patient seen earlier on rounds today. Still has ongoing abdominal pain and distention. Still rating the pain is quite severe possibly a bit better. Has been tolerating clears and pudding. No complaints of nausea or vomiting. Has had 2 soft stools since yesterday. No evidence of melena or hematochezia. Objective Meds Current Facility-Administered Medications: bisacodyl (DULCOLAX) suppository 10 mg, 10 mg, Rectal, Daily PRN, Estefanía Burgos MD calcium carbonate (TUMS) chewable tablet 500 mg, 500 mg, Oral, 4x Daily PRN, Shawn Bajwa MD, 500 mg at 09/09/23 0219 enoxaparin (LOVENOX) syringe 70 mg, 1 mg/kg, Subcutaneous, Q12H, Luly Ferrer MD, 70 mg at 09/09/23 1124 folic acid (FOLVITE) tablet 1 mg, 1 mg, Oral, Daily, Shawn Bajwa MD, 1 mg at 09/09/23 0847 HYDROmorphone (DILAUDID) injection 0.5 mg, 0.5 mg, Intravenous, Q4H PRN, Luly Ferrer MD, 0.5 mg at 09/09/23 1143 ketorolac (TORADOL) injection 15 mg, 15 mg, Intravenous, Q6H PRN, Gaetano Alberto MD, 15 mg at 09/09/23 1038 lactulose (ENULOSE) 10 gm/15 mL solution 20 g, 30 mL, Oral, Q4H PRN, Estefanía Burgos MD multivitamin with minerals tablet 1 tablet, 1 tablet, Oral, Daily, Shawn Bajwa MD, 1 tablet at 09/09/23 0847 naloxone (NARCAN) 0.4 mg/mL injection 0.4 mg, 0.4 mg, Intravenous, Q5 Min PRN, Estefanía Burgos MD senna-docusate (SENNA-S) 8.6-50 MG tablet 2 tablet, 2 tablet, Oral, Nightly, Estefanía Burgos MD thiamine (VITAMIN B-1) injection 200 mg, 200 mg, Intravenous, Daily, Estefanía Burgos MD, 200 mg at 09/09/23 0847 Last Vitals Pulse:(!) 114,Resp:(!) 24,BP:136/75,SpO2:96 %,Weight:70.4 kg (155 lb 3.3 oz) Temp Last 24 hrs: Temp Min: 98.5 ?F (36.9 ?C) Max: 99.1 ?F (37.3 ?C) Intake/Output Summary (Last 24 hours) at 09/09/2023 1318 Last data filed at 09/09/2023 1052 Gross per 24 hour Intake 1373.91 ml Output 1600 ml Net -226.09 ml Physical Exam General appearance: alert and cooperative Eyes: conjunctivae/corneas clear. No icterus ENT: No lymphadenopathy. Moist mucous membranes Lungs: clear to auscultation bilaterally Heart: regular rate and rhythm, S1, S2 normal, no murmur, click, rub or gallop Abdomen: Firm and distended without guarding or rebound but diffuse tenderness; she does have Ha'ssign. Extremities: extremities normal, atraumatic, no cyanosis or edema Skin: Skin color, texture, turgor normal. No stigmata of chronic liver disease Neurologic: Grossly normal, no asterixis Relevant data reviewed Results from last 7 days Lab Units 09/09/23 0434 09/08/23 1531 09/08/23 0423 WHITE BLOOD CELL COUNT Thou/uL 9.7 10.2 9.4 HEMOGLOBIN g/dL 9.9* 8.6* 9.1* HEMATOCRIT % 30.7* 26.0* 27.2* PLATELET COUNT Thou/uL 142* 98* 86* Results from last 7 days Lab Units 09/09/23 1132 09/09/23 0821 09/09/23 0434 GLUCOSE mg/dL -- -- 106 GLUCOSE, POC mg/dL 121* < > -- CALCIUM mg/dL -- -- 9.5 SODIUM mmol/L -- -- 135* POTASSIUM mmol/L -- -- 3.1* CO2 mmol/L -- -- 27 CHLORIDE mmol/L -- -- 99 BUN mg/dL -- -- <5* CREATININE mg/dL -- -- 0.5* < > = values in this interval not displayed. Results from last 7 days Lab Units 09/07/23 2243 LIPASE U/L 96* Results from last 7 days Lab Units 09/08/23 0423 09/07/23 2301 INR 1.5 1.4 Results from last 7 days Lab Units 09/08/23 0423 ALT U/L 11 AST U/L 45* ALK PHOS U/L 153* BILIRUBIN TOTAL mg/dL 0.9 MELD 3.0: 13 at 09/09/2023 4:34 AM MELD-Na: 11 at 09/09/2023 4:34 AM Calculated from: Serum Creatinine: 0.5 mg/dL (Using min of 1 mg/dL) at 09/09/2023 4:34 AM Serum Sodium: 135 mmol/L at 09/09/2023 4:34 AM Total Bilirubin: 0.9 mg/dL (Using min of 1 mg/dL) at 09/08/2023 4:23 AM Serum Albumin: 3.6 g/dL (Using max of 3.5 g/dL) at 09/08/2023 4:23 AM INR(ratio): 1.5 at 09/08/2023 4:23 AM Age at listing (hypothetical): 28 years Sex: Female at 09/09/2023 4:34 AM Blood Products - last 72 hours Blood Administration View: 09/06/23 1318 to 09/09/23 1318 (72 Hours) Sort by: Time None Sign Panchito Sanders MD 09/09/2023 1:18 PM Critical Care Progress Note Chief Complaint: Follow up for Acute pancreatitis with infected necrosis, unspecified DAY #1. Subjective No overnight events. Patient is morning reported that her pain has not improved despite the pain medications, no associated nausea and vomiting tolerated the liquid diet well. Objective Last Vitals Pulse:(!) 124,Resp:(!) 23,BP:(!) 153/75,SpO2:97 % O2 Device: room air (none) , Weight:70.4 kg (155 lb 3.3 oz) Temp Last 24 hrs: Temp Min: 98.2 ?F (36.8 ?C) Max: 99.1 ?F (37.3 ?C) Last temp: 98.2 ?F (36.8 ?C) (Axillary) Physical Exam GENERAL: Patient, lying in bed, in no apparent distress CARDIAC: Regular rate and rhythm. Normal S1/S2. No murmurs,rubs or gallops. Nopedal edema. RESP: Adequate chest expansion, Lungs clear to auscultation, without crackles,wheezes or rhonchi. GI: Normoactive bowel sounds, abdomen soft, non tender and non distended SKIN/ MSK: Pulses +2 in both upper and lower extremities. Ecchymosis around umbilical area NEURO: Alert and oriented x3, moves all extremities with no gross asymmetries 24hr Intake and Output Intake/Output Summary (Last 24 hours) at 09/09/2023 1409 Last data filed at 09/09/2023 1052 Gross per 24 hour Intake 1373.91 ml Output 1550 ml Net -176.09 ml Lines: Peripheral IV - Single Lumen (Adult) 09/07/23 2250 median vein (underside of arm), left 22 gauge (Active) Present on admission no 09/08/231999 Indication/Daily Review of Necessity medication therapy, intermittent 09/08/231999 Site Preparation/Maintenance dressing: dry and intact 09/08/231999 Securement sterile tape strips, secured with 09/08/231999 Patency/Maintenance flushed without difficulty;applied port protector to unused lumens and access points;scrubbed needleless connector prior to use 09/08/231999 Pump Type and Serial Number infusion pump 09/08/231999 NS Flush Volume 5 mL 09/08/231999 Phlebitis 0-->no symptoms 09/08/231999 Infiltration 0-->no symptoms 09/08/231999 Peripheral IV - Single Lumen (Adult) 09/08/23 0000 22 gauge (Active) Present on admission no 09/08/23 0800 Indication/Daily Review of Necessity medication therapy, intermittent 09/08/231999 Site Preparation/Maintenance dressing: dry and intact 09/08/231999 Securement sterile tape strips, secured with 09/08/231999 Patency/Maintenance flushed without difficulty;applied port protector to unused lumens and access points;scrubbed needleless connector prior to use 09/08/231999 Pump Type and Serial Number infusion pump 09/08/231999 NS Flush Volume 5 mL 09/08/231999 Phlebitis 0-->no symptoms 09/08/231999 Infiltration 0-->no symptoms 09/08/231999 Drains: Labs Results from last 7 days Lab Units 09/09/23 0434 09/08/23 1531 09/08/23 0423 WHITE BLOOD CELL COUNT Thou/uL 9.7 10.2 9.4 HEMOGLOBIN g/dL 9.9* 8.6* 9.1* HEMATOCRIT % 30.7* 26.0* 27.2* PLATELET COUNT Thou/uL 142* 98* 86* Results from last 7 days Lab Units 09/09/23 1132 09/09/23 0821 09/09/23 0434 09/08/23 0802 09/08/23 04209/07/23 2243 SODIUM mmol/L -- -- 135* -- 134* 135* POTASSIUM mmol/L -- -- 3.1* -- 3.4 2.8* CHLORIDE mmol/L -- -- 99 -- 99 98 CO2 mmol/L -- -- 27 -- 29 30 BUN mg/dL -- -- <5* -- <5* <5* CREATININE mg/dL -- -- 0.5* -- 0.4* 0.4* EGFR -- -- >90 -- >90 >90 GLUCOSE mg/dL -- -- 106 -- 95 107* GLUCOSE, POC mg/dL 121* < > -- < > -- -- CALCIUM mg/dL -- -- 9.5 -- 8.6* 8.5* < > = values in this interval not displayed. Results from last 7 days Lab Units 09/07/233 TROPONIN I, HIGH SENSITIVITY ng/L 7 No results found for: CKTOTAL , CKMB , CKMBINDEX Results from last 7 days Lab Units 09/09/23433 MAGNESIUM mg/dL 2.4 Lab Results Component Value Date ALT 11 09/08/2023 AST 45 (H) 09/08/2023 ALKPHOS 153 (H) 09/08/2023 BILITOT 0.9 09/08/2023 Lab Results Component Value Date LIPASE 96 (H) 09/07/2023 Results from last 7 days Lab Units 09/07/23 224 AMYLASE U/L 90 Pain Management Panel There is no flowsheet data to display. No results found for: PROBNP Results from last 7 days Lab Units 09/07/23 2243 LACTIC ACID mmol/L 0.8 Results from last 7 days Lab Units 09/07/23 2301 COLOR UA Yellow CLARITY UA Clear SPECIFIC GRAVITY UA 1.013 PH UA 8.5* PROTEIN UA Small (30 mg/dL)* GLUCOSE, URINE mg/dL Negative KETONES UA Negative BLOOD UA Large* NITRITE UA Negative LEUKOCYTE ESTERASE UA Negative BILIRUBIN UA Negative Recent Cultures: Culture Date Value Ref Range Status 09/08/2023 Sterile after 1 day Preliminary 09/08/2023 Sterile after 1 day Preliminary ABG: No results for input(s): PHA , PCO2 , PO2 , HCO3 in the last 72 hours. Imaging Studies US Venous Duplex Legs-Bilateral (DVT) Result Date: 09/08/2023 CLINICAL INFORMATION: Rule out DVT COMPARISON: None. TECHNIQUE: Real-time scanning of the bilateral lower extremity deep venous systems was performed assessing ashraf scale appearance, color and duplex Doppler flow and compressibility. FINDINGS: The bilateral distal external iliac veins demonstrate normal color flow. The common femoral, proximal deep femoral, proximal greater saphenous, femoral and popliteal veins show normal color flow and compressibility. The visualized calf veins also demonstrate normal color flow and are compressible. No Alegre's cyst. No evidence of acute deep vein thrombosis. XR Chest 1 view-Portable Result Date: 09/08/2023 CLINICAL INFORMATION: Hypoxia COMPARISON: CXR - 09/07/23. TECHNIQUE: AP view of the chest. FINDINGS: Heart/Mediastinum: The cardiac silhouette is unchanged. The mediastinal contours are relatively stable. Lungs: Persistent retrocardiac and right infrahilar/basilar opacities, similar to previous study. No effusion is evident. Osseous Structures: No acute abnormalities. Similar to previous study. XR Chest 1 view-Portable Result Date: 09/08/2023 CLINICAL INFORMATION: sob, hypoxia COMPARISON: Chest x-ray 09/06/2023. TECHNIQUE: AP view of the chest. FINDINGS: Heart/Mediastinum: The cardiac silhouette is unchanged. The mediastinal contours are relatively stable. Lungs: Mild hazy opacities in the lung bases and in the LEFT retrocardiac region, may reflect areas of atelectasis. No pleural effusions. Osseous Structures: No acute abnormalities. Mild hazy opacity of the lung bases and in the LEFT retrocardiac region, may reflect areas of atelectasis. Superimposed pneumonia cannot be excluded. Recommend attention to follow-up for resolution. I agree with the above resident preliminary report. If this exam was interpreted by a resident, I personally reviewed the image(s) and resident's interpretation and agree with the findings. [facility] Archive for reference only CT Result Date: 09/08/2023 This order has been auto-finalized and does not contain a result. [facility] Archive for reference only CR Result Date: 09/08/2023 This order has been auto-finalized and does not contain a result. [facility] Archive for reference only CT Result Date: 09/08/2023 This order has been auto-finalized and does not contain a result. [facility] Archive for reference only CR Result Date: 09/07/2023 This order has been auto-finalized and does not contain a result. [facility] Archive for reference only CT Result Date: 09/07/2023 This order has been auto-finalized and does not contain a result. Medications Scheduled Meds: enoxaparin (LOVENOX) injection for treatment, 1 mg/kg, Subcutaneous, Q12H folic acid, 1 mg, Oral, Daily multivitamin with minerals, 1 tablet, Oral, Daily senna-docusate, 2 tablet, Oral, Nightly thiamine, 200 mg, Intravenous, Daily Continuous Infusions: PRN Meds: bisacodyl calcium carbonate HYDROmorphone ketorolac lactulose naloxone Assessment & Plan Assessment 28-year-old female with past medical history of alcohol use disorder presented from on 09/03/2023, with severe abdominal pain nausea and vomiting diagnosed with pancreatitis complicated by necrotizing pancreatitis, portal vein and splenic vein thrombosis transferred to [facility] Neurological Alert and x 3 Alcohol use disorder Usually drinks 8-9 nips of rum every month. Has been drinking alcohol since 7 years. S/p phenobarbital protocol at . -Continue with thiamine multivitamin folic acid daily Cardiology Sinus tachycardia -Around 110s to 115, could be possibly from pain Respiratory Acute hypoxic respiratory failure-resolved -Secondary pleural effusion could be from pancreatitis. -Currently on room air -Active mobilization. Gastroenterology Necrotizing pancreatitis complicated by mesenteric and portal vein thrombosis CT abdomen pelvis at -showed's concerns for acute interstitial pancreatitis with hepatic steatosis with free fluid within the pelvis and early signs of necrosis. CT scan on 09/06-reported destruction of pancreas with pancreatic necrosis Plan -Advance to full liquid diet and regular diet as tolerated. -GI consulted-CT scan consistent with acute necrotizing pancreatitis, will progress to walled off necrosis, no intervention as of now. -Pain management with Dilaudid and ketorolac. -PF4 antibodies negative, discontinued argobatran -Started on therapeutic Lovenox Renal -No active issues Infectious Disease No signs of infection as of now, no indication for antibiotics. Metabolic/Endocrine No active issues Heme/Onc Portal and splenic vein thrombosis S/p heparin drip Continue with therapeutic Lovenox. Thrombocytopenia Improved to 140s No concerns for HIT, PF4 antibodies negative -s/p Argobatran drip -Initiated anticoagulation with therapeutic Lovenox Diet:Advance diet as tolerated Diet Regular DVT Prophylaxis: VTE Time Out IMPROVE SCORE: 2 (09/08/2023 2:03 AM) Interpretation - High Risk Chemical Prophylaxis enoxaparin (LOVENOX) syringe 70 mg Subcutaneous Every 12 hours Chemical VTE prophylaxis NOT ordered. Click here to order if appropriate Heparin (Porcine) in NaCl, Enoxaparin Sodium 70 mg Last dose 09/09/2023 11:24 AM Mechanical Prophylaxis Mechanical VTE prophylaxis NOT ordered. Click here to order if appropriate Code Status Procedures Full Code DISCLAIMER: This chart was created using [employer] dictation software. Efforts were made by me to ensure accuracy, however some errors may be present due to limitations of this technology and occasionally words are not transcribed as intended. The above case has been discussed with the attending physician. Notes and Addendum to Follow : Keshav Jacinto MD PGY2 Internal Medicine Resident. 09/09/2023 2:09 PM Associated attestation - Madelyn Hernandez MD - 09/10/2023 1:51 PM EDT Attestation to the resident note with the same day of service: I have seen and examined the patient. I have reviewed the relevant labs, radiologic studies and independent crop consultant notes. Please refer to my note. Surgery Progress Note Subjective Reports ongoing abdominal pain, distention, no significant change (better or worse). Tolerating CLD without problems. Feeling hungry. ROS: Constitutional: No fever, No chills. Respiratory: No shortness of breath, No cough, No wheezing. Cardiovascular: No chest pain, No palpitations. Gastrointestinal: As above. Genitourinary: No dysuria, No urinary frequency, No urinary urgency. Musculoskeletal: No joint pain, No muscle pain Neurologic: Alert and oriented x 4. Objective Last Vitals Pulse:(!) 111,Resp:(!) 22,BP:137/71,SpO2:97 %,Weight:70.4 kg (155 lb 3.3 oz) Temp Last 24 hrs: Temp Min: 98.5 ?F (36.9 ?C) Max: 99.1 ?F (37.3 ?C) Intake/Output Summary (Last 24 hours) at 09/09/2023 0855 Last data filed at 09/09/2023 0800 Gross per 24 hour Intake 1294.99 ml Output 1650 ml Net -355.01 ml PHYSICAL EXAM: General: Alert and Oriented x3. No acute distress. Color appears significantly better today vs yesterday. Cardiovascular: Regular rate and rhythm. No murmur. Respiratory: Lungs clear to auscultation bilaterally. Abdomen: Abdomen significantly distended, full but not firm (compressible). Diffusely tender to palpation without involuntary guarding or rebound tenderness. Extremities: No cyanosis. No edema. Skin: Warm & Dry. No rashes. DIAGNOSTICS: Diagnostic Data: White Blood Cell Count Date Value Ref Range Status 09/09/2023 9.7 4.0 - 11.0 Thou/uL Final Hemoglobin Date Value Ref Range Status 09/09/2023 9.9 (L) 11.7 - 15.7 g/dL Final Hematocrit Date Value Ref Range Status 09/09/2023 30.7 (L) 35.0 - 47.0 % Final Platelet Count Date Value Ref Range Status 09/09/2023 142 (L) 150 - 450 Thou/uL Final Lab Results Component Value Date NA 135 (L) 09/09/2023 K 3.1 (L) 09/09/2023 CL 99 09/09/2023 CO2 27 09/09/2023 BUN <5 (L) 09/09/2023 CREAT 0.5 (L) 09/09/2023 GLUC 125 (H) 09/09/2023 GLUC 106 09/09/2023 Lab Results Component Value Date CALCIUM 9.5 09/09/2023 MG 2.4 09/09/2023 PHOS 2.8 09/09/2023 Lab Results Component Value Date AST 45 (H) 09/08/2023 ALT 11 09/08/2023 ALKPHOS 153 (H) 09/08/2023 BILITOT 0.9 09/08/2023 ALBUMIN 3.6 09/08/2023 PROT 5.6 (L) 09/08/2023 Lab Results Component Value Date COLORUA Yellow 09/07/2023 CLARITYUA Clear 09/07/2023 SPECGRAVUA 1.013 09/07/2023 PHUA 8.5 (H) 09/07/2023 PROTEINUA Small (30 mg/dL) (A) 09/07/2023 GLUCUA Negative 09/07/2023 KETONESUA Negative 09/07/2023 BLOODUA Large (A) 09/07/2023 NITRITEUA Negative 09/07/2023 LEUKOCYTESUA Negative 09/07/2023 BILIUA Negative 09/07/2023 No results found for: AMPHTQTU , BARBIT , BENZOU , BUPRE , CANNAB , COCAINE , METHU , OPIATE , OXYCODONE , PCP , LABPROP Lab Results Component Value Date CREAT 0.5 (L) 09/09/2023 US Venous Duplex Legs-Bilateral (DVT) Narrative: CLINICAL INFORMATION: Rule out DVT COMPARISON: None. TECHNIQUE: Real-time scanning of the bilateral lower extremity deep venous systems was performed assessing ashraf scale appearance, color and duplex Doppler flow and compressibility. FINDINGS: The bilateral distal external iliac veins demonstrate normal color flow. The common femoral, proximal deep femoral, proximal greater saphenous, femoral and popliteal veins show normal color flow and compressibility. The visualized calf veins also demonstrate normal color flow and are compressible. No Alegre's cyst. Impression: No evidence of acute deep vein thrombosis. XR Chest 1 view-Portable Narrative: CLINICAL INFORMATION: Hypoxia COMPARISON: CXR - 09/07/23. TECHNIQUE: AP view of the chest. FINDINGS: Heart/Mediastinum: The cardiac silhouette is unchanged. The mediastinal contours are relatively stable. Lungs: Persistent retrocardiac and right infrahilar/basilar opacities, similar to previous study. No effusion is evident. Osseous Structures: No acute abnormalities. Impression: Similar to previous study. XR Chest 1 view-Portable Narrative: CLINICAL INFORMATION: sob, hypoxia COMPARISON: Chest x-ray 09/06/2023. TECHNIQUE: AP view of the chest. FINDINGS: Heart/Mediastinum: The cardiac silhouette is unchanged. The mediastinal contours are relatively stable. Lungs: Mild hazy opacities in the lung bases and in the LEFT retrocardiac region, may reflect areas of atelectasis. No pleural effusions. Osseous Structures: No acute abnormalities. Impression: Mild hazy opacity of the lung bases and in the LEFT retrocardiac region, may reflect areas of atelectasis. Superimposed pneumonia cannot be excluded. Recommend attention to follow-up for resolution. I agree with the above resident preliminary report. If this exam was interpreted by a resident, I personally reviewed the image(s) and resident's interpretation and agree with the findings. [facility] Archive for reference only CT This order has been auto-finalized and does not contain a result. [facility] Archive for reference only CT This order has been auto-finalized and does not contain a result. [facility] Archive for reference only CR This order has been auto-finalized and does not contain a result. Assessment & Plan Assessment: 28F with severe necrotizing pancreatitis with associated ascites, as well as non-occlusive thrombus of splenic vein, portal vein, SMV near the confluence with splenic/portal veins. Transitioned from heparin gtt to argatroban gtt due to thrombocytopenia, concern for HIT. Plan: - Mesenteric venous thrombosis: Continue anticoagulation - Severe necrotizing pancreatitis: No indication of abdominal compartment syndrome at this time. No evidence of infected pancreatic necrosis. Appreciate excellent input from GI. Tolerating CLD and hungry, think it is reasonable to advance diet today. - Remainder of care per ICU. - Surgery will continue to follow. Sign Carlee Moraes MD 09/09/2023 8:55 AM Critical Care Progress Note HPI / Subjective 28 y o F w ongoing alcohol abuse, anxiety, tubal ligation presents on 09/06 as a transfer from [facility] for management of acute necrotizing pancreatitis. She initially presents on 09/02 w abd pain, n, vomiting in setting of elevated lipase (523) and lactate 7. A 2nd repeat CT abd done prior to transfer (09/05) is + for extensive pancreatic necrosis with replacement of pancreatic head by flui as well as portal vein thrombosis and splenic vein thrombosis. subsequently initiated on heparin drip. Overnight event: none Assessment & Plan 1- acute necrotizing pancreatitis 2- portal V and splenic V thrombosis 3- thombocytopenia 4- alcohol abuse 5- at risk for abd compartment syndrome Neuro: 1- pain controlled w toradol and dilaudid PRN Cardiovasc/Resp: 1- HD stable, sinus tachycardia from pain 100-110 2- Resp stable for now, on room air 3- Portal V and splenic V thrombosis: sec to pancreatitis (found in 20% of severe acute pancreatitis) - PF4AB neg for HIT, stop artgatroban, start LMWH - at risk for mesenteric ischemia, f/u lactate closely as clinically indicated (pain, hypotension...) ID: 1- currently HD stable, no fever, no leukocytosis, low threshold to start empiric abx if clinical deterioration. Discussed w GI and sx GI: 1- full liquid as tolerated 2- at risk for ischemic bowel and abd compartment syndrome, will cotn to monitor clinically, cont full AC 3- pancreatitis: possible collection on CT ?, fine needle aspiration vs necrosecotmy are considerations as per GI Renal: 1- external cath Hemato: 1- thrombocytopenia: possibly sec to alcohol, improving, PF4ab neg for HIT 2- lower extremities neg for DVT Prophylaxis: -DVT (LMWH) Code Status: full code Cont close monitoring, potential for deterioration however seems to be stable so far, good mentation, HD stable on room air. Critical Care Time Spent: 45 minutes Objective Last Vitals: Pulse:(!) 104, Resp:18, BP:BP Min: 124/74 Max: 134/73 MAP: SpO2:96 % CVP: Temp Last 24 hrs: Temp Min: 98.5 ?F (36.9 ?C) Max: 99.4 ?F (37.4 ?C) Physical Exam: AOx3, follows command No focal deficit Tachycardic BS bilat, no wheezing Abd is soft, painful on palpation Periumbilical levido reticularis No leg swelling Intake & Output Intake/Output Summary (Last 24 hours) at 09/09/2023 0749 Last data filed at 09/09/2023 0700 Gross per 24 hour Intake 1048.39 ml Output 1750 ml Net -701.61 ml Lines: Peripheral IV - Single Lumen (Adult) 04/05/24 2250 median vein (underside of arm), left 22 gauge (Active) Present on admission no 09/08/23 0200 Indication/Daily Review of Necessity medication therapy, intermittent 09/08/23 0200 Site Preparation/Maintenance dressing: dry and intact 09/08/23 0200 Securement sterile tape strips, secured with 09/08/23 0200 Patency/Maintenance scrubbed needleless connector prior to use;flushed without difficulty 09/08/23 0200 Pump Type and Serial Number infusion pump 09/08/23 0200 NS Flush Volume 10 mL 09/08/23 0400 Phlebitis 0-->no symptoms 09/08/23 020 Infiltration 0-->no symptoms 09/08/23 0200 Peripheral IV - Single Lumen (Adult) 09/08/23 0000 22 gauge (Active) Present on admission no 09/08/23 0400 Indication/Daily Review of Necessity medication therapy, intermittent 09/08/23 0400 Site Preparation/Maintenance dressing: dry and intact 09/08/23 040 Securement sterile tape strips, secured with 09/08/23 0400 Patency/Maintenance scrubbed needleless connector prior to use;flushed without difficulty 09/08/23 0400 Pump Type and Serial Number infusion pump 09/08/23 0400 NS Flush Volume 10 mL 09/08/23 0400 Phlebitis 0-->no symptoms 09/08/23 040 Infiltration 0-->no symptoms 09/08/23 0400 Drains: Urethral Catheter (Adult) 09/08/23 0100 (Active) Daily Review of Necessity need for frequent and accurate urine output measurements 09/08/23 040 Hygiene urethral catheter care done 09/08/23 040 Securement secured to upper leg with adhesive device 09/08/23 040 Tolerance no signs/symptoms of discomfort 09/08/23 040 Urine Output (mL) 100 09/08/23 0900 Imaging Studies Sign Madelyn Hernandez MD 09/09/2023 7:49 AM Surgery Progress Note Subjective Patient seen and examined on morning rounds. Transferred from outside hospital with significant pancreatitis, splenic vein thrombosis. On heparin drip. Reports ongoing severe abdominal pain and distention. Does not report any difference in symptoms over the last 1 to 2 days. Tolerating clear liquids. Objective Last Vitals Pulse:(!) 109,Resp:20,BP:134/82,SpO2:97 %,Weight:73.3 kg (161 lb 9.6 oz) Temp Last 24 hrs: Temp Min: 98.4 ?F (36.9 ?C) Max: 99.4 ?F (37.4 ?C) Intake/Output Summary (Last 24 hours) at 09/08/2023 1327 Last data filed at 09/08/2023 1100 Gross per 24 hour Intake 489.84 ml Output 2150 ml Net -1660.16 ml PHYSICAL EXAM: General: Alert and Oriented x3. Mild distress. Appears pale. Cardiovascular: Tachycardic, regular rhythm. Respiratory: Respirations even and non-labored, speaking in full sentences. Abdomen: Abdomen protuberant, full. Is compressible. Diffusely tender without rebound or involuntary guarding. Extremities: No cyanosis. No edema. Skin: Warm & Dry. No rashes. DIAGNOSTICS: Diagnostic Data: White Blood Cell Count Date Value Ref Range Status 09/08/2023 9.4 4.0 - 11.0 Thou/uL Final Hemoglobin Date Value Ref Range Status 09/08/2023 9.1 (L) 11.7 - 15.7 g/dL Final Hematocrit Date Value Ref Range Status 09/08/2023 27.2 (L) 35.0 - 47.0 % Final Platelet Count Date Value Ref Range Status 09/08/2023 86 (L) 150 - 450 Thou/uL Final Lab Results Component Value Date NA 134 (L) 09/08/2023 K 3.4 09/08/2023 CL 99 09/08/2023 CO2 29 09/08/2023 BUN <5 (L) 09/08/2023 CREAT 0.4 (L) 09/08/2023 GLUC 130 (H) 09/08/2023 GLUC 95 09/08/2023 Lab Results Component Value Date CALCIUM 8.6 (L) 09/08/2023 MG 2.0 09/08/2023 PHOS 2.9 09/08/2023 Lab Results Component Value Date AST 45 (H) 09/08/2023 ALT 11 09/08/2023 ALKPHOS 153 (H) 09/08/2023 BILITOT 0.9 09/08/2023 ALBUMIN 3.6 09/08/2023 PROT 5.6 (L) 09/08/2023 Lab Results Component Value Date COLORUA Yellow 09/07/2023 CLARITYUA Clear 09/07/2023 SPECGRAVUA 1.013 09/07/2023 PHUA 8.5 (H) 09/07/2023 PROTEINUA Small (30 mg/dL) (A) 09/07/2023 GLUCUA Negative 09/07/2023 KETONESUA Negative 09/07/2023 BLOODUA Large (A) 09/07/2023 NITRITEUA Negative 09/07/2023 LEUKOCYTESUA Negative 09/07/2023 BILIUA Negative 09/07/2023 No results found for: AMPHTQTU , BARBIT , BENZOU , BUPRE , CANNAB , COCAINE , METHU , OPIATE , OXYCODONE , PCP , LABPROP Lab Results Component Value Date CREAT 0.4 (L) 09/08/2023 XR Chest 1 view-Portable Narrative: CLINICAL INFORMATION: sob, hypoxia COMPARISON: Chest x-ray 09/06/2023. TECHNIQUE: AP view of the chest. FINDINGS: Heart/Mediastinum: The cardiac silhouette is unchanged. The mediastinal contours are relatively stable. Lungs: Mild hazy opacities in the lung bases and in the LEFT retrocardiac region, may reflect areas of atelectasis. No pleural effusions. Osseous Structures: No acute abnormalities. Impression: Mild hazy opacity of the lung bases and in the LEFT retrocardiac region, may reflect areas of atelectasis. Superimposed pneumonia cannot be excluded. Recommend attention to follow-up for resolution. I agree with the above resident preliminary report. If this exam was interpreted by a resident, I personally reviewed the image(s) and resident's interpretation and agree with the findings. [facility] Archive for reference only CT This order has been auto-finalized and does not contain a result. [facility] Archive for reference only CT This order has been auto-finalized and does not contain a result. [facility] Archive for reference only CR This order has been auto-finalized and does not contain a result. Assessment & Plan Assessment: 28F transferred from outside hospital with severe necrotizing pancreatitis and associated thrombosis seen in her splenic, superior mesenteric, and portal veins. Plan: Necrotizing pancreatitis: Currently with significant pancreatic necrosis, no evidence of infection, no evidence of drainable peripancreatic fluid collection. No evidence of compartment syndrome at this time, suspect patient is in the recovery phase so should continue to improve. Continue supportive care, agree with early enteral feeding. Mesenteric vein and portal vein thrombosis: Continue with anticoagulation, will monitor for venous mesenteric ischemia however she has had a low normal lactic acid level and does not have evidence of significant ischemia on outside hospital CTA. Will monitor. Appreciate excellent care by ICU, input from gastroenterology. Surgery will continue to perform serial abdominal exams and closely monitor. Sign Carlee Moraes MD 09/08/2023 1:27 PM Critical Care Progress Note HPI / Subjective 28 y o F w ongoing alcohol abuse, anxiety, tubal ligation presents on 09/06 as a transfer from [facility] for management of acute necrotizing pancreatitis. She initially presents on 09/02 w abd pain, n, vomiting in setting of elevated lipase (523) and lactate 7. A 2nd repeat CT abd done prior to transfer (09/05) is + for extensive pancreatic necrosis with replacement of pancreatic head by flui as well as portal vein thrombosis and splenic vein thrombosis. subsequently initiated on heparin drip. Clinically she HD stable on 2l nc but complains of a distended and painful abdomen. Assessment & Plan 1- acute necrotizing pancreatitis 2- portal V and splenic V thrombosis 3- thombocytopenia 4- alcohol abuse 5- at risk for abd compartment syndrome Neuro: 1- was previously on CIWA protocol 2- pain controlled w dilaudid PRN Cardiovasc/Resp: 1- HD stable, sinus tachycardia 2- Resp stable for now, high risk of clinical deterioration w intubation/fluid overload, ARDS. 3- Portal V and splenic V thrombosis: sec to pancreatitis - change heparin drip to LMWH - at risk for mesenteric ischemia, f/u lactate closely as clinically indicated (pain, hypotension...) ID: 1- currently HD stable, no fever, no leukocytosis, low threshold to start empiric abx if clinical deterioration. Discussed w GI GI: 1- clear liquid as tolerated 2- at risk for ischemic bowel and abd compartment syndrome, will cotn to monitor clinically 3- pancreatitis: possible collection on CT ?, fine needle aspiration vs necrosecotmy are considerations as per GI Renal: 1- change hui cath to external cath Hemato: 1- thrombocytopenia: possibly sec to alcohol, however was 438 on admission at [facility], now with PV and asplenic thrombosis. HIT score with intermediate risk, will send PF4ab. Change heparin drip to LMWH (less risk of HIT) if further decline in plat count or DVT + lower extremities then will change to argatroban for high suspicion of HIT. Prophylaxis: -DVT (LMWH) Code Status: full code Cont close monitoring, potential for clinical deterioration Critical Care Time Spent: 50 minutes Objective Last Vitals: Pulse:(!) 126, Resp:(!) 23, BP:BP Min: 126/68 Max: 143/86 MAP: SpO2:96 % CVP: Temp Last 24 hrs: Temp Min: 98.4 ?F (36.9 ?C) Max: 99.4 ?F (37.4 ?C) Physical Exam: AOx3, follows command No focal deficit Tachycardic BS bilat, no wheezing Abd is soft, painful on palpation [place] sign (multiple pre-ecchymotic spots) No leg swelling Intake & Output Intake/Output Summary (Last 24 hours) at 09/08/2023 0907 Last data filed at 09/08/2023 0900 Gross per 24 hour Intake 479.84 ml Output 1950 ml Net -1470.16 ml Lines: Peripheral IV - Single Lumen (Adult) 09/07/23 2250 median vein (underside of arm), left 22 gauge (Active) Present on admission no 09/08/23 020 Indication/Daily Review of Necessity medication therapy, intermittent 09/08/23 020 Site Preparation/Maintenance dressing: dry and intact 09/08/23199 Securement sterile tape strips, secured with 09/08/23199 Patency/Maintenance scrubbed needleless connector prior to use;flushed without difficulty 09/08/23199 Pump Type and Serial Number infusion pump 09/08/23 020 NS Flush Volume 10 mL 09/08/23 0400 Phlebitis 0-->no symptoms 09/08/23199 Infiltration 0-->no symptoms 09/08/23 0200 Peripheral IV - Single Lumen (Adult) 09/08/23 0000 22 gauge (Active) Present on admission no 09/08/23399 Indication/Daily Review of Necessity medication therapy, intermittent 09/08/23 040 Site Preparation/Maintenance dressing: dry and intact 09/08/23 040 Securement sterile tape strips, secured with 09/08/23 040 Patency/Maintenance scrubbed needleless connector prior to use;flushed without difficulty 09/08/23399 Pump Type and Serial Number infusion pump 09/08/23 040 NS Flush Volume 10 mL 09/08/23399 Phlebitis 0-->no symptoms 09/08/23399 Infiltration 0-->no symptoms 09/08/23399 Drains: Urethral Catheter (Adult) 09/08/23 0100 (Active) Daily Review of Necessity need for frequent and accurate urine output measurements 09/08/23399 Hygiene urethral catheter care done 09/08/23399 Securement secured to upper leg with adhesive device 09/08/23399 Tolerance no signs/symptoms of discomfort 09/08/23399 Urine Output (mL) 100 09/08/23 0900 Imaging Studies Sign Madelyn Hernandez MD 09/08/2023 9:07 AM CRITICAL CARE PROGRESS NOTE CC: Necrotizing pancreatitis SUBJECTIVE DAY #0. This morning, the patient states that she still feels pain in her abdomen and has some soreness in her back as well. In addition, she states that she feels like she needs to urinate but no she has a Hui in. She states that she has no nausea or vomiting. She does not feel tremulous or confused. She feels very regretful about her alcohol usage. She states that she feels that the pain is much more well-managed. RN stated that the patient is having some vaginal spotting as well. OBJECTIVE HR (!) 109 RR 20 BP 134/82 SpO2 97 % O2 Device: nasal cannula Flow (L/min) (Oxygen Therapy): 2 Weight 73.3 kg (161 lb 9.6 oz) Body mass index is 27.74 kg/m?. Temp Min: 98.4 ?F (36.9 ?C) Max: 99.4 ?F (37.4 ?C) Vitals: Tachycardic, on 2 L nasal cannula Continuous infusion: Heparin drip Gen: Lying in bed, in no apparent distress Eye: Anicteric sclera HENT: Oral mucosa is dry. No cervical lymphadenopathy appreciated. CVS: S1 and S2 noted. Regular rate and rhythm. Resp: Bilateral breath sounds appreciated. Normal work of breathing on 2 L nasal cannula. GI: Soft, very tender to palpation diffusely, Ext: No bilateral lower extremity edema noted. Neuro: Alert and oriented x 3. Moving all extremities spontaneously. Psych: Mood and manner appropriate to clinical situation. Peripheral IV - Single Lumen (Adult) 09/07/23 2250 median vein (underside of arm), left 22 gauge (Active) Number of days: 1 Peripheral IV - Single Lumen (Adult) 09/08/23 0000 22 gauge (Active) Number of days: 0 Urethral Catheter (Adult) 09/08/23 0100 (Active) Number of days: 0 Urethral Catheter (Adult) 09/08/23 0100 (Active) Number of days: 0 Urethral Catheter (Adult) 09/08/23 010 (Active) Number of days: 0 Pertinent Labs: WBC 9.4, hemoglobin 9.1, sodium 134, potassium 3.4, creatinine 0.4, AST 45, alk phos 153, triglycerides 174, procalcitonin 18.68, urine study with RBCs. Last VBG 7.5 Labs: Lab Results Component Value Date WBC 9.4 09/08/2023 HGB 9.1 (L) 09/08/2023 HCT 27.2 (L) 09/08/2023 MCV 92 09/08/2023 PLT 86 (L) 09/08/2023 Lab Results Component Value Date GLUC 130 (H) 09/08/2023 CALCIUM 8.6 (L) 09/08/2023 NA 134 (L) 09/08/2023 K 3.4 09/08/2023 CO2 29 09/08/2023 CL 99 09/08/2023 BUN <5 (L) 09/08/2023 CREAT 0.4 (L) 09/08/2023 Results from last 7 days Lab Units 09/08/23 0423 HEMOGLOBIN g/dL 9.1* WHITE BLOOD CELL COUNT Thou/uL 9.4 PLATELET COUNT Thou/uL 86* Results from last 7 days Lab Units 09/08/23 1143 09/08/23 0802 09/08/23 0423 SODIUM mmol/L -- -- 134* POTASSIUM mmol/L -- -- 3.4 CO2 mmol/L -- -- 29 CHLORIDE mmol/L -- -- 99 MAGNESIUM mg/dL -- -- 2.0 PHOSPHORUS mg/dL -- -- 2.9 BUN mg/dL -- -- <5* CREATININE mg/dL -- -- 0.4* GLUCOSE mg/dL -- -- 95 GLUCOSE, POC mg/dL 130* < > -- < > = values in this interval not displayed. Results from last 7 days Lab Units 09/07/23 2243 TROPONIN I, HIGH SENSITIVITY ng/L 7 Results from last 7 days Lab Units 09/07/23 2301 COLOR UA Yellow CLARITY UA Clear SPECIFIC GRAVITY UA 1.013 PH UA 8.5* PROTEIN UA Small (30 mg/dL)* GLUCOSE, URINE mg/dL Negative KETONES UA Negative BLOOD UA Large* NITRITE UA Negative LEUKOCYTE ESTERASE UA Negative BILIRUBIN UA Negative Imaging Studies 09/07/2023 chest x-ray Mild hazy opacity of lung bases in the left retrocardiac region, concern for atelectasis. Superimposed pneumonia cannot be excluded. Medications Medications Scheduled Medication Ordered Dose/Rate, Route, Frequency Last Action enoxaparin (LOVENOX) syringe 70 mg 1 mg/kg, SC, Q12H Ordered folic acid (FOLVITE) tablet 1 mg 1 mg, PO, Daily Given, 1 mg at 09/07 809 multivitamin with minerals tablet 1 tablet 1 tablet, PO, Daily Given, 1 tablet at 09/07 809 senna-docusate (SENNA-S) 8.6-50 MG tablet 2 tablet 2 tablet, PO, Nightly Ordered thiamine (VITAMIN B-1) injection 200 mg 200 mg, IV, Daily Given, 200 mg at 09/07 809 PRN Medication Ordered Dose/Rate, Route, Frequency Last Action bisacodyl (DULCOLAX) suppository 10 mg 10 mg, RE, Daily PRN Ordered calcium carbonate (TUMS) chewable tablet 500 mg 500 mg, PO, 4x Daily PRN Given, 500 mg at 09/07 1139 HYDROmorphone (DILAUDID) injection 0.2 mg 0.2 mg, IV, Q4H PRN Given, 0.2 mg at 09/07 1310 ketorolac (TORADOL) injection 15 mg 15 mg, IV, Q6H PRN Given, 15 mg at 09/07 1030 lactulose (ENULOSE) 10 gm/15 mL solution 20 g 30 mL, PO, Q4H PRN Ordered naloxone (NARCAN) 0.4 mg/mL injection 0.4 mg 0.4 mg, IV, Q5 Min PRN Ordered ASSESSMENT & PLAN Ms. Aguilar is a 28-year-old female with anxiety and alcohol disorder who presented on 09/03/2023 to with severe abdominal pain, nausea, and vomiting. She was found to have pancreatitis that evolved into necrotizing pancreatitis. Her course has been complicated by portal vein and splenic vein thrombosis. She was transferred to [facility] for higher level of care. Neuro/Psych: Alcohol use disorder Reported that she drank about 8-9 nips of rum every day for the last month. She has been drinking alcohol for the last 7 years. Was on the phenobarbital protocol at . Alert and oriented x 3 - Will provide counseling regarding alcohol usage - IV thiamine 200 mg daily - Multivitamin and folic acid daily Resp: Acute hypoxic respiratory failure Most likely secondary to pleural effusion noted on imaging. - Continue supplemental oxygen -Aggressively mobilize, out of bed to chair - Once electrolyte abnormalities are corrected, can try IV Lasix to decrease effusion CV: Sinus tachycardia Mostly secondary to abdominal pain. - Will continue on telemetry GI: Necrotizing pancreatitis Admission CT at showed acute interstitial pancreatitis with hepatic steatosis, minimal free fluid within the pelvis, and early necrosis. She received lactated Ringer's and was found to have elevated lipase and electrolyte abnormalities. CT scan on 09/06 showed destruction of pancreas replaced with fluid 2/2 pancreatic necrosis. No current surgical invention. Lactate downtrending from 7 to in the 2 range. Procalcitonin 18.68. Triglycerides 174. -Follow-up blood cultures - Will change Hui to pure wick for accurate urine output to monitor for abdominal compartment syndrome -Started clear liquid diet -Continue IV hydromorphone until pain management consult -Inpatient pain management consult -Low threshold for antibiotics Renal/Metabolic/endocrine: Hypokalemia - Trend BMP ID: - Low threshold for antibiotics if the patient decompensates Rheum/MSK: - No active issues Heme/Onc: Splenic vein and portal vein thrombosis CT scan noted developing thrombosis of the portal vein and splenic vein. -Continue heparin drip Normocytic anemia Hemoglobin 9.1, MCV 92 -Trend CBC Thrombocytopenia Platelet count 86. Down from 438 on admission at . Most likely secondary to inflammatory process. - Trend CBC - If below 10, infuse platelets Code Status: Full Code Fluids/Feeding: Diet NPO; Meds, Ice chips, Sips of clears VTE Prophylaxis VTE Time Out IMPROVE SCORE: 2 (09/08/2023 2:03 AM) Interpretation - High Risk Chemical Prophylaxis enoxaparin (LOVENOX) syringe 70 mg Subcutaneous Every 12 hours Sign Trish Sosa MD Internal Medicine, PGY-1 09/08/2023 1:44 PM Available on [employer] Text Associated attestation - Madelyn Hernandez MD - 09/10/2023 1:48 PM EDT Attestation to the resident note with the same day of service: I have seen and examined the patient. I have reviewed the relevant labs, radiologic studies and independent crop consultant notes. Please refer to my note. documented in this encounter [facility] 09-15-2023 Plan of care note Plan of Care Reviewed With: patient Progress: improving Outcome Evaluation: Pt. awake, alert, ambulating in hallway independently. Appetite: Excellent. Pt. reports pain abdominal area. Pain meds administered as ordered. Pt. reports 3 bowel movements last evening and no blood in stool. Pt. reports boyfriend coming from [place]. to pick her up for discharge. Pt. has insurance from [facility]. Spoke with MD and CM regarding pts ability to pay for prescribed meds. CM met with pt. and they will have the meds paid for. Ghazala Herron 09/15/2023 11:47 AM [facility] Work Phone: 09-15-2023 Miscellaneous Notes Plan of Care Reviewed With: patient Progress: improving Outcome Evaluation: Pt. awake, alert, ambulating in hallway independently. Appetite: Excellent. Pt. reports pain abdominal area. Pain meds administered as ordered. Pt. reports 3 bowel movements last evening and no blood in stool. Pt. reports boyfriend coming from [facility]. to pick her up for discharge. Pt. has insurance from [facility]. Spoke with MD and CM regarding pts ability to pay for prescribed meds. CM met with pt. and they will have the meds paid for. Ghazala Herron 09/15/2023 11:47 AM Plan of Care Reviewed With: patient Progress: no change Outcome Evaluation: Pt medicated for c/o abdominal pain with good effect. Pt reports no blood with bowel movement during this shift. No further complaints as of this time. Safety measures maintained. Angela Sandoval 09/15/2023 2:38 AM Problem: Adult Inpatient Plan of Care Goal: Plan of Care Review Outcome: Progressing Flowsheets (Taken 09/14/2023 1820) Progress: no change Outcome Evaluation: Patient medicated per mar, verbalized complaints of harman blood in stool observed by nurse. MD notified discharge cancelled pending evaluation. VSS, sitting up in bed, bed in low position call latham in reach. Goal: Patient-Specific Goal (Individualized) Outcome: Progressing Goal: Absence of Hospital-Acquired Illness or Injury Outcome: Progressing Goal: Optimal Comfort and Wellbeing Outcome: Progressing Shobha Manning 09/14/2023 6:32 PM Case Management Care Plan Note Final Discharge Plan: 01 - home or self-care Summary: Discussed case at daily progression rounds and again later with Attending. Pt is for discharge home and family will be transporting pt home. Per Attending, pt has appt with her PCP this coming Sunday. Patient/Family in Agreement with Plan: yes (09/14/2023 1:55 PM) Final Discharge Disposition Code: 01 - home or self-care (09/14/2023 1:55 PM) No data recorded Antonia Barajas 09/14/2023 1:56 PM Problem: Adult Inpatient Plan of Care Goal: Plan of Care Review Flowsheets (Taken 09/14/2023 0753) Outcome Evaluation: Assumed care of pt at 2330. pt in bed. Ice pack refilled per pt request. Snack and sandwich given per pt request. Roxanol admin per order x1 this shift, Morphine 3mg IV admin x1 for breakthrough pain. At time of admin IV, pt requested icepack. WORKDAY DIRECTOR called and ice pack given to patient. Outcome Evaluation: Assumed care of pt at 2330. pt in bed. Ice pack refilled per pt request. Snack and sandwich given per pt request. Roxanol admin per order x1 this shift, Morphine 3mg IV admin x1 for breakthrough pain. At time of admin IV, pt requested icepack. WORKDAY DIRECTOR called and ice pack given to patient. Doug Ribeiro 09/14/2023 8:02 AM Note started in error Plan of Care Reviewed With: patient Progress: no change Outcome Evaluation: assumed care of pt this AM. pt is alert, vss, meds given as ordered. morphine given for pain PRN. pt still complains of abdominal pain. ct scan pending. pt ambualates in room and to bathroom, had a BM today. safety maintained, call latham within reach. Shobha Toussaint 09/12/2023 12:43 PM Problem: Pain Acute Goal: Optimal Pain Control and Function Outcome: Not Progressing Pt alert, oriented x4, anxious @ times with persistent abd pain, pain med regimen in progress, Pt V. Interventions ineffective, multiple loose stools s/p Laxative, Pt admits to straining to have BM, Pt encouraged to refrain from stated behavior, V.U., emotional support provided. Lisa Car 09/12/2023 6:53 AM Problem: Adult Inpatient Plan of Care Goal: Plan of Care Review Outcome: Progressing Goal: Patient-Specific Goal (Individualized) Outcome: Progressing Goal: Absence of Hospital-Acquired Illness or Injury Outcome: Progressing Goal: Optimal Comfort and Wellbeing Outcome: Progressing Goal: Readiness for Transition of Care Outcome: Progressing Problem: Skin Injury Risk Increased Goal: Skin Health and Integrity Outcome: Progressing Lisa Car 09/12/2023 6:52 AM Met with pt in room [facility]. Introduced NCM role. Has PCP in [place]. Pt will need transport home upon discharge. Antonia Barajas 09/11/2023 4:01 PM Progress: no change Outcome Evaluation: pt admitted to unit Alert and oriented x4 c/o of pain in abd distened, no resp distress. Currently on clear liquid diet, pt is able to abulate to br with misael. Scd to lower extremities, slight bruising to upper arms otherwise skin is intact. Safety measures maintained POC ongoing. Merline Rasmussen 09/10/2023 6:31 PM Plan of Care Reviewed With: patient Problem: Adult Inpatient Plan of Care Goal: Plan of Care Review Outcome: Progressing Flowsheets (Taken 09/10/2023 8445) Plan of Care Reviewed With: patient Outcome Evaluation: Assumed care at 0700, received report from Jenny GALLEGOS. Pt A/O x4, VSS. C/O abdominal pain scheduled Morphine and PRN Morphine given various times with minimal effect. Medications administered per MAR orders. Clear liquid diet maintained. Ambulated pt in hallway. Pt transferred from PCU to , report given to Merline GALLEGOS. Transferred off unit on bed. Safety maintained, all belongings taken. Adriana Veliz 09/10/2023 5:57 PM Type: (Inpt/Obs): 09/08/2023 Date of Admission: 09/08/2023 Admitting Dx: Acute pancreatitis with infected necrosis, unspecified [K85.92] HPI: 28F significant daily alcohol use, presented to [facility] with abdominal pain, vomiting, found to have acute pancreatitis, had baseline ct scan to support this, elevated lipase. Pt was fluid resuscitated (unclear total ins). Did initially make a lactate of 7 which downtrended to 2 range. Tx'd for alcohol withdrawal with phenobarbital. Given lasix for volume overload in review of DC summary. Was in the ICU there for part of the admission.? On 09/05, pt had ct abdomen and pelvis showing extensive pancreatic necrosis with replacement of pancreatic head by fluid, portal vein thrombosis and splenic vein thrombosis. Started on heparin at the referring institution. ? Pt transferred on 2L NC, no vasopressors. Reports severe abdominal and flank pain. Impression: Acute necrotizing pancreatitis Acute portal vein thrombosis Acute splenic vein thrombosis Alcohol dependence Hyponatremia Hypokalemia? Plan: Neuro - pain control with PRN iv hydromorphone, pain consult, does not appear to be actively withdrawing and previously received phenobarbital, hold on standing benzo/barbituates? CV - tachycardic, not in shock, lactate cleared to 0.8, volume overloaded with 3rd spacing, moderate + pleural effusions bilaterally Judicious iv fluids Would hold on diuretics at this time MAP goal is >65? Pulm - 2L NC, bilateral pleural effusion, chest splinting with high risk to develop pneumonia, not distressed ? GI 1. Acute necrotizing pancreatitis from alcohol use - check TG from admission labs, cautious fluids 2. Severe abdominal pain - at risk for developing abdominal compartment syndrome, consulted surgery, bladder pressure confounded by non-intubated/non-passive status but if intubated will measure 3. Acute portal and splenic vein thrombosis from pancreatic inflammation - resume heparin infusion, monitor anti-Xa per protocol 4. At risk for ischemic bowel, case d/w surgery, serial abdominal exams, pt has cleared lactate and has no current signs of shock 5. At risk for other complications of pancreatitis including infection, for now will walsh-culture patient, hold on abx; if needed would generally favor carbapenem 6. NPO? Renal Hui, hypervolemic hyponatremia, hypokalemia (replete), judicious fluids, volume overloaded? ID See above? Endo Glucose checks Q4H? Heme Trend CBC in particular platelet count, would be very early for HIT but closely monitor trend? DVT ppx heparin infusion ? Full code Vitals: T 99.3-133/78-112-20 with 02 sat 80% and placed on 2L NC Labs/Diagnostics: WBC 10 HGB 9 PLT 83 Na 135 K 2.8 Scr 0.4 BUN <5 Ca 8.5 AST 41 ALT 10 Alk Phos 140 Lipase 96 Procalcitonin 18 VBG 7.55/36/73/32 Orders/Treatment Plan: telemetry, continuous pulse oximetry, glucose POCT q4h, daily weights, supplemental 02 204 LPM to maintain 02 sat >/=90%, progressive mobility, strict I & 0, hui Medications: KCL IV bolus x 4, Klor po x 2, Folic acid po daily, MVI po daily, Thiamine IV daily, IV Heparin gtt transitioned to IV Argatroban gtt, IV LR-KCL40 @ 100cc/hr, TUMS po qid prn x 3, Dilaudid IV q4h prn x 4, Toradol IV q6h prn x 3 Bed Type: ICU Summary: Case Mgmt Problem: Adult Inpatient Plan of Care Goal: Readiness for Transition of Care Outcome: Progressing Case Management Care Plan Note Summary: Met with patient; admitted 09/06 from for management of acute necrotizing pancreatitis. Pt lives with her s.o. and children in a house in [place], [place]. Uses not DME, no HCS. Pt functions independently except for driving; her s.o. is able to drive. Hx etoh use d/o. Recommendations: anticipate home with family once medically able Admission Type: inpatient Clinical Trial: not applicable Hearing Difficulty or Deaf: no Wear Glasses or Blind: yes Concentrating, Remembering or Making Decisions Difficulty: no Difficulty Communicating: no Difficulty Eating/Swallowing: no Doing Errands Independently Difficulty (such as shopping): yes Errands Management: s.o. drives for errands and appointments Equipment Currently Used at Home: none Change in Functional Status Since Onset of Current Illness/Injury: yes Current Activity Tolerance: moderate Medications: independent Meal Preparation: independent Housekeeping: independent Laundry: independent Shopping: independent Urmila Cardenas 09/08/2023 3:59 PM Pt arrived accompanied by ED RN and tech. A+Ox4, VSS as charted; only complaining of abdominal discomfort. Medicated per AUG. Skin CDI, HOST/HOSTESS GROUND scan completed. Pt educated to unit and POC. No other questions or concerns levied at this time. Safety maintained. Marlon Uribe 09/08/2023 5:08 AM documented in this encounter [facility] 09-15-2023 Hospital course Narrative Inpatient Discharge Summary Patient Demographics CORRINE AGUILAR 1995 28 y.o. Allergies Allergen Reactions Codeine Anaphylaxis Oxycodone Anaphylaxis Penicillins Anaphylaxis Admission Date: 09/07/2023 Admitting Provider: Fela Rodriguez MD Discharge Provider: Madelyn Adames DO Primary Care Physician at Discharge: Ibeth Lassiter MD Discharge Date: 09/15/2023 Primary Discharge Diagnosis Acute necrotizing pancreatitis Secondary Discharge Diagnosis Past Medical History: Diagnosis Date Alcohol abuse Asthma Bright red blood per rectum Acute splenic vein and portal vein thrombosis Acute hypoxic respiratory failure Sinus tachycardia Hypokalemia Normocytic anemia Thrombocytopenia Procedure and Studies during Hospitalization: CT abdomen with and without contrast, chest x-rays, lower extremity reflux ultrasound Consultations: Gastroenterology Pain management General surgery Medical ICU Discharge Medications Discharge Medications New Medications Sig apixaban 5 MG tablet Commonly known as: ELIQUIS Take 1 tablet (5 mg total) by mouth 2 (two) times a day. Quantity: 60 tablet calcium carbonate 500 MG chewable tablet Commonly known as: TUMS Chew 1 tablet (500 mg total) 4 (four) times a day as needed for indigestion or heartburn. folic acid 1 MG tablet Commonly known as: FOLVITE Take 1 tablet (1 mg total) by mouth daily. Quantity: 30 tablet methocarbamol 500 MG tablet Commonly known as: ROBAXIN Take 2 tablets (1,000 mg total) by mouth 4 (four) times a day as needed for muscle spasms. Quantity: 60 tablet morphine 30 MG tablet Commonly known as: MSIR Take 0.5-1 tablets (15-30 mg total) by mouth 4 times daily (every 6 hours) as needed for severe pain. Quantity: 24 tablet multivitamin with minerals Tabs tablet Take 1 tablet by mouth daily. Quantity: 30 tablet polyethylene glycol 17 g packet Commonly known as: miraLAx Take 1 packet (17 g total) by mouth daily as needed for constipation. Quantity: 30 packet pregabalin 100 MG capsule Commonly known as: LYRICA Take 1 capsule (100 mg total) by mouth 3 (three) times a day. Quantity: 30 capsule senna-docusate 8.6-50 MG Commonly known as: SENNA-S Take 2 tablets by mouth nightly as needed for constipation. Quantity: 60 tablet thiamine mononitrate 100 MG tablet Commonly known as: VITAMIN B-1 Take 2 tablets (200 mg total) by mouth daily. Quantity: 60 tablet Followup: Ibeth Lassiter MD [address] [place] [id number] Follow up on 09/26/2023 at 2:15pm ; [address] [place] [address] Follow up tests Patient should have repeat CBC, CMP, and CRP follow-up approximately 4 days after discharge for a total Code Status: Full Code HPI 28-y/o F w?anxiety and alcohol??Use?disorder who presented on 09/03/2023 to with severe abdominal pain, nausea, and vomiting. ?She was found to have pancreatitis that evolved into necrotizing pancreatitis. 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 Patient also received phenobarb protocol for alcohol withdrawal while at . Repeat imaging at outside facility showed significant destruction of pancreas with replacement of fluid due to pancreatic necrosis in addition to developing portal vein and splenic vein thrombosis which then prompted the transfer to [facility] for higher level of care. Hospital Course On presentation to [facility] the patient was tachycardic but otherwise hemodynamically stable. She was admitted to the medical ICU admission labs were notable for significant. Hypokalemia, and elevated inflammatory markers including procalcitonin. Patient was started on a heparin drip for management of splenic and portal vein thromboses. She was evaluated by general surgery and gastroenterology given the necrotizing pancreatitis. Recommendations from both surgery and GI ultimately were for nonoperative management unless absolutely necessary if the patient developed more severe complications such as abdominal compartment syndrome. There was concern for thrombocytopenia thus the patient was briefly transitioned to argatroban if she was at risk of DIC. the patient was also evaluated by pain management given her severe abdominal pain related to the pancreatitis. Inflammatory markers including CRP were trended which were considerably elevated but eventually did downtrend. HIT and PF4 antibodies were negative, thus patient was transitioned to Lovenox for anticoagulation. The hospital stay was also notable for an episode of bright red blood per rectum which did not recur and the patient's hemoglobin nonetheless remained stable. On the day of discharge, the patient is afebrile and hemodynamically stable and is being discharged home back to [place] with plan to follow-up with her PCP next week and she will also require follow-up with gastroenterology when back at [place] with coordination of this per PCP. #?Acute?Necrotizing pancreatitis?2/2 alcohol use disorder # Bright red blood per rectum -?On admission?to??patient was?found to have interstitial pancreatitis with hepatic steatosis, minimal free fluid within the pelvis, and early necrosis along with elevated lipase. -??CT a/p?09/06 showed extensive necrotizing pancreatitis along with a pancreatic fluid collection. - Patient transferred to [facility] ICU - there appears to have been a component of volume overload and she was given lasix.? -?Procalcitonin 18.68.??Triglycerides 174.? - GI and surgery on board during this admission -CRP and WBC count both elevated but eventually down trended - Abdominal pain is improving - Repeat CT a/p with hemorrhagic necrosis, about the same size although there is one portion along the mesentery which has mildly increased in size. No obvious PDA formation however per radiology many vessels are running through the area.? -Blood cultures sterile -Patient had an episode of bright red blood per rectum. She remained hemodynamically stable after this and labs obtained on the day of discharge show continued stability of hemoglobin. The patient was reevaluated by gastroenterology with physical exam consistent with small hemorrhoid. ? PCP Follow-up information: I spoke with the patient's PCP, Dr. Lassiter. Dr. Lassiter was able to arrange for the patient to have an appointment at the clinic ext Sunday09/18/2023 at 9 AM and clinic is aware of the need to likely continue prescribing pain medications given her ongoing pancreatitis. Patient scheduled to see Dr. Ng at that visit. PCP office is requesting a fax of the discharge summary to [phone] PCP office contact phone number is ? Plan: -Appreciate recommendations from pain management. ? Plan will be for patient to go on p.o. morphine on discharge. Will also be on Lyrica and methocarbamol -Transition to apixaban for therapeutic anticoagulation -Would continue bowel regimen to try to avoid constipation -PCP follow-up and patient should establish care with gastroenterology once back in [place] -Would recommend repeat labs during the week after discharge including CBC, CMP, CRP ? 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 -??PF4 came back negative and argatroban was discontinued ? Plan: - Transition to [facility]?upon DC ? #?Alcohol use disorder -?Reported that she drank about 8-9 nips of rum every day for the last month. ? - Counseled on??alcohol usage -PO?thiamine 200 mg daily -?Multivitamin and folic acid daily -PCP follow up ?? #?Acute hypoxic respiratory failure?(resolved) -Breathing well on room air #?Sinus tachycardia - improved -?Mostly secondary to abdominal pain. ? -Continue multimodal analgesia regimen #??Hypokalemia - improved ? #?Normocytic anemia - stable -Recommend outpatient repeat labs as above ? #?Thrombocytopenia?(resolved) Platelet count 394 on the day of discharge Physical Exam: Last Vitals Pulse:(!) 101,Resp:18,BP:124/74,SpO2:100 %,O2 Device: room air (none), , Weight:71.2 kg (156 lb 15.5 oz) Body mass index is 26.94 kg/m?. Temp Last 24 hrs: Temp Min: 97.9 ?F (36.6 ?C) Max: 99.5 ?F (37.5 ?C) Gen: adult female in no acute distress CVS: Regular rate and rhythm without murmur Resp: Clear to auscultation bilaterally Abdomen/GI: Bowel sounds present. Abdomen mildly distended. Abdomen continues to be mild to moderately tender to palpation throughout but most prominently in the epigastric region. Ext: No peripheral edema Neuro/psych: Alert and oriented x 3 Labs Results from last 7 days Lab Units 09/15/23 0631 09/14/23 0610 09/13/23 0531 WHITE BLOOD CELL COUNT Thou/uL 10.1 14.5* 16.3* HEMOGLOBIN g/dL 8.0* 8.1* 8.5* HEMATOCRIT % 25.9* 26.0* 27.4* PLATELET COUNT Thou/uL 394 448 485* Results from last 7 days Lab Units 09/15/23 0631 09/14/23 0610 09/13/23 0531 SODIUM mmol/L 136 136 136 POTASSIUM mmol/L 3.9 4.0 3.3* CHLORIDE mmol/L 104 103 102 CO2 mmol/L 25 28 27 BUN mg/dL <5* <5* <5* CREATININE mg/dL 0.5* 0.5* 0.5* EGFR >90 >90 >90 GLUCOSE mg/dL 132* 132* 134* CALCIUM mg/dL 9.0 8.6* 8.7 Results from last 7 days Lab Units 09/14/23 0610 ALK PHOS U/L 189* BILIRUBIN TOTAL mg/dL 0.5 ALBUMIN g/dL 3.9 ALT U/L 75* AST U/L 95* Results from last 7 days Lab Units 09/11/23 0532 MAGNESIUM mg/dL 2.0 Lab Results Component Value Date CALCIUM 9.0 09/15/2023 PHOS 3.0 09/11/[address] Abdomen with and without IV contrast Final Result Continued findings of hemorrhagic necrosis related to the patient's pancreatitis. There are hypodense regions within the collection which appears somewhat similar to the prior exam and probably represent hemorrhagic components. Overall, most of the components of the lateral collections are unchanged in size, noting that there is a portion in the RIGHT inferior aspect along the mesentery which has mildly increased in size. Note that there is no obvious extravasation of contrast, but the patient would be at risk for pseudoaneurysm formation and continued follow-up of the patient's hemodynamic status is recommended. 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 Bilateral pleural effusions LEFT nonobstructing nephrolithiasis. These findings were discussed with SHANNON MITCHELL via secure text messenger at 09/12/2023 12:28 PM. US Venous Duplex Legs-Bilateral (DVT) Final Result No evidence of acute deep vein thrombosis. XR Chest 1 view-Portable Final Result Similar to previous study. [facility] Archive for reference only CT Final Result ETH[facility] Archive for reference only CR Final Result [facility] Archive for reference only CT Final Result XR Chest 1 view-Portable Final Result Mild hazy opacity of the lung bases and in the LEFT retrocardiac region, may reflect areas of atelectasis. Superimposed pneumonia cannot be excluded. Recommend attention to follow-up for resolution. I agree with the above resident preliminary report. If this exam was interpreted by a resident, I personally reviewed the image(s) and resident's interpretation and agree with the findings. [facility] Archive for reference only CT Final Result [facility] Archive for reference only CR Final Result Incidental findings: As Above Tests Pending at Discharge: None Condition on Discharge: Fair Discharge Disposition: Home Time to coordinate discharge: 60 min Madelyn Adames DO 09/15/2023 11:00 AM documented in this encounter [facility] 09-15-2023 Plan of care note Plan of Care Reviewed With: patient Progress: no change Outcome Evaluation: Pt medicated for c/o abdominal pain with good effect. Pt reports no blood with bowel movement during this shift. No further complaints as of this time. Safety measures maintained. Angela Sandoval 09/15/2023 2:38 AM [facility] Work Phone: 09-14-2023 Plan of care note Problem: Adult Inpatient Plan of Care Goal: Plan of Care Review Outcome: Progressing Flowsheets (Taken 09/14/2023 1820) Progress: no change Outcome Evaluation: Patient medicated per mar, verbalized complaints of harman blood in stool observed by nurse. MD notified discharge cancelled pending evaluation. VSS, sitting up in bed, bed in low position call latham in reach. Goal: Patient-Specific Goal (Individualized) Outcome: Progressing Goal: Absence of Hospital-Acquired Illness or Injury Outcome: Progressing Goal: Optimal Comfort and Wellbeing Outcome: Progressing Shobha Manning 09/14/2023 6:32 PM [facility] Work Phone: 09-14-2023 Plan of care note Case Management Care Plan Note Final Discharge Plan: 01 - home or self-care Summary: Discussed case at daily progression rounds and again later with Attending. Pt is for discharge home and family will be transporting pt home. Per Attending, pt has appt with her PCP this coming Sunday. Patient/Family in Agreement with Plan: yes (09/14/2023 1:55 PM) Final Discharge Disposition Code: 01 - home or self-care (09/14/2023 1:55 PM) No data recorded Antonia Barajas 09/14/2023 1:56 PM [facility] Work Phone: 09-14-2023 Plan of care note Problem: Adult Inpatient Plan of Care Goal: Plan of Care Review Flowsheets (Taken 09/14/2023 0753) Outcome Evaluation: Assumed care of pt at 2330. pt in bed. Ice pack refilled per pt request. Snack and sandwich given per pt request. Roxanol admin per order x1 this shift, Morphine 3mg IV admin x1 for breakthrough pain. At time of admin IV, pt requested icepack. WORKDAY DIRECTOR called and ice pack given to patient. Outcome Evaluation: Assumed care of pt at 2330. pt in bed. Ice pack refilled per pt request. Snack and sandwich given per pt request. Roxanol admin per order x1 this shift, Morphine 3mg IV admin x1 for breakthrough pain. At time of admin IV, pt requested icepack. WORKDAY DIRECTOR called and ice pack given to patient. Doug Ribeiro 09/14/2023 8:02 AM [facility] Work Phone: 09-13-2023 Progress note Formatting of t his note might be different from the original. Note started in error [facility] 09-12-2023 Plan of care note Plan of Care Reviewed With: patient Progress: no change Outcome Evaluation: assumed care of pt this AM. pt is alert, vss, meds given as ordered. morphine given for pain PRN. pt still complains of abdominal pain. ct scan pending. pt ambualates in room and to bathroom, had a BM today. safety maintained, call latham within reach. Shobha Toussaint 09/12/2023 12:43 PM [facility] Work Phone: 09-12-2023 Note CLINICAL INFORMATION : Necrotizing pancreatitis - interval evaluation - CRP and leukocytosis persistently elevated. Persistent abdominal pain COMPARISON: ?CT abdomen and pelvis 09/07/2023 and 09/04/2023 TECHNIQUE: ?CT Abdomen without and with contrast. ?IV Contrast: ?80 mL Omnipaque 350. Protocol: Protocol: Protocol: Pancreas. Oral Contrast: Not given. ?Dose modulation and/or iterative reconstruction was utilized to minimize dose. FINDINGS: Lower Chest: There is patchy groundglass opacities in the RIGHT lower lobe. Bilateral pleural effusions. Liver: No focal lesions. Intrahepatic biliary ducts are normal. Gallbladder/Biliary: Distended. Extrahepatic biliary ducts are normal. Spleen: Unremarkable. Pancreas/vasculature/Peritoneum: There is pancreatic necrosis more than 50%, visualizing pancreatic tissue at the level of head and body. There is a pancreatic and peripancreatic fluid collections. There is no gas. The pancreatic collection is well demarcated with an enhancing wall, with multiple loculated areas all of which probably communicate with each other. A lesser sac component of the collection on series 2, image 25 measures 9.9 x 7.1 cm compared with 10 x 6.2 cm on the prior exam and contains some hyperdense material probably indicating hemorrhagic products. Another component anterior to the hemorrhagic pancreatic tissue on image 34 measures 8.4 x 4 cm, previously 8.3 x 4.6 cm. Another slightly inferior to this on the RIGHT within the mesenteric region on image 39 measures 8 x 4.8 cm, previously 6.7 x 3.9 cm.. There is a filling defect in the portal and extending to the splenic vein likely thrombosis (series 2 image 26 and series 7, image 54). Adrenals: Unremarkable. Kidneys: ?RIGHT lower pole 3 and 2 mm nonobstructing stone. LEFT kidney is unremarkable. ?No hydronephrosis. Retroperitoneum: Unremarkable. No adenopathy. Gastrointestinal: There is mild distended small bowel loops likely ileus. ?No obstruction. Bones: ?No acute or suspicious abnormalities. ? ? [facility] 09-12-2023 Plan of care note Problem: Pain Acute Goal: Optimal Pain Control and Function Outcome: Not Progressing Pt alert, oriented x4, anxious @ times with persistent abd pain, pain med regimen in progress, Pt V. Interventions ineffective, multiple loose stools s/p Laxative, Pt admits to straining to have BM, Pt encouraged to refrain from stated behavior, V.U., emotional support provided. Lisa Car 09/12/2023 6:53 AM [facility] Work Phone: 09-12-2023 Plan of care note Problem: Adult Inpatient Plan of Care Goal: Plan of Care Review Outcome: Progressing Goal: Patient-Specific Goal (Individualized) Outcome: Progressing Goal: Absence of Hospital-Acquired Illness or Injury Outcome: Progressing Goal: Optimal Comfort and Wellbeing Outcome: Progressing Goal: Readiness for Transition of Care Outcome: Progressing Problem: Skin Injury Risk Increased Goal: Skin Health and Integrity Outcome: Progressing Lisa Car 09/12/2023 6:52 AM [facility] 09-11-2023 Plan of care note Met with pt in room [facility]. Introduced NCM role. [place] PCP in [place]. Pt will need transport home upon discharge. Antonia Barajas 09/11/2023 4:01 PM [facility] 09-10-2023 Plan of care note Progress: no change Outcome Evaluation: pt admitted to unit Alert and oriented x4 c/o of pain in abd distened, no resp distress. Currently on clear liquid diet, pt is able to abulate to br with misael. Scd to lower extremities, slight bruising to upper arms otherwise skin is intact. Safety measures maintained POC ongoing. Merline Rasmussen 09/10/2023 6:31 PM [facility] Work Phone: 09-10-2023 Plan of care note Plan of Care Reviewed With: patient Problem: Adult Inpatient Plan of Care Goal: Plan of Care Review Outcome: Progressing Flowsheets (Taken 09/10/2023 1755) Plan of Care Reviewed With: patient Outcome Evaluation: Assumed care at 0700, received report from Jenny GALLEGOS. Pt A/O x4, VSS. C/O abdominal pain scheduled Morphine and PRN Morphine given various times with minimal effect. Medications administered per MAR orders. Clear liquid diet maintained. Ambulated pt in hallway. Pt transferred from PCU to , report given to Merline GALLEGOS. Transferred off unit on bed. Safety maintained, all belongings taken. Adriana Veliz 09/10/2023 5:57 PM [facility] Work Phone: 09-10-2023 Consult note Associated Order (s): IP CONSULT TO PAIN MANAGEMENT PROVIDER Pain Management Consult Note Date of Consult: 09/10/2023 Patient's Primary Care Provider: Ibeth Lassiter MD Physician Requesting Consult: Fela Rodriguez MD Reason for Consultation: Intractable Abdominal Pain Name: Corrine Aguilar Age: 28 y.o. Sex: female Principal Problem: Acute pancreatitis with infected necrosis, unspecified (POA: Yes) Resolved Problems: History of Present Illness: Tia female with past medical history of only anxiety disorder and hyperthyroidism presented to our facility as a transfer from [facility] in [place] For management of acute necrotizing pancreatitis. She initially presented on September 02 with abdominal pain nausea and vomiting in the setting of elevated lipase and with a lactate of 7. A repeat CT scan done prior to the transfer showed evidence of extensive pancreatic necrosis with replacement of the pancreatic head by fluid level along with associated portal vein and splenic vein thrombosis. 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 She is currently on argatroban. The patient's reports that she continues to have severe abdominal pain with back radiation and inability to tolerate any p.o. intake. Time of my evaluations the patient's reports abdominal pain with a visceral component in the epigastric area is radiating to the back. She continues to have some mild nausea however no vomiting since admitted to our facility and remained monitored in the intensive care unit. The CT SCHOOL OFFICE MANAGER have been reviewed and is longer as well as the SCHOOL OFFICE MANAGER from [place] with no medications available in the last 2 years. Past Medical History Past Medical History: Diagnosis Date Alcohol abuse Asthma Past Surgical History Past Surgical History: Procedure Laterality Date SECTION 05/21/2020 Cammy Chanel MD Family History The patient is engaged she has 3 children at the age 94 and 3 and 9 siblings apparently in good health, not she has twin sisters both of the diabetes. Both of her parents are alive mother at the age of 68 and father at the age of 63 with history of drug addictions hep hepatitis C Social History The patient is not working she had various jobs before her current unemployment she had a history of smoking for approximately 5 years duration but she quit approximately 5 years ago and she reports she is drinking constantly for the last month and a half buying 12 nebs consuming them 16 arose while playing games and subsequently using the rest. She does however reports she has never been enrolled in alcohol detox programs in the past. The patient denies any history of illicit drug use she has never been enrolled in methadone Suboxone or medical marijuana program. Subjective: Review of Systems Constitutional: Negative for chills, fatigue and fever. Respiratory: Negative for cough, shortness of breath and wheezing. Cardiovascular: Negative for chest pain and leg swelling. Gastrointestinal: Positive for abdominal distention, abdominal pain and nausea. Negative for constipation, diarrhea and vomiting. Genitourinary: Negative for difficulty urinating. Musculoskeletal: Negative for back pain and neck pain. Skin: Negative for wound. Neurological: Negative for dizziness, weakness, numbness and headaches. Hematological: Negative for adenopathy. Psychiatric/Behavioral: Negative for sleep disturbance. Objective: Vitals Vitals: 09/10/23 0500 09/10/23 0600 09/10/23 0800 09/10/23 1200 BP: 128/77 132/81 128/71 BP Location: Right arm Right arm Patient Position: Lying Lying Pulse: (!) 105 (!) 120 (!) 109 Resp: (!) 23 (!) 21 (!) 23 Temp: 99.8 ?F (37.7 ?C) 98.7 ?F (37.1 ?C) TempSrc: Oral Oral SpO2: 94% 95% 94% Weight: 71.2 kg (156 lb 15.5 oz) Height: Physical Exam Constitutional: General: She is in acute distress. Appearance: Normal appearance. HENT: Mouth/Throat: Mouth: Mucous membranes are moist. Eyes: Pupils: Pupils are equal, round, and reactive to light. Pulmonary: Effort: Pulmonary effort is normal. Breath sounds: No wheezing or rhonchi. Abdominal: General: There is distension. Tenderness: There is abdominal tenderness. There is guarding. Musculoskeletal: General: No swelling or tenderness. Skin: General: Skin is dry. Neurological: Mental Status: She is alert and oriented to person, place, and time. Sensory: Sensation is intact. Motor: Motor function is intact. Psychiatric: Mood and Affect: Mood normal. Behavior: Behavior normal. Behavior is cooperative. Allergies Allergen Reactions Codeine Anaphylaxis Oxycodone Anaphylaxis Penicillins Anaphylaxis Medications No medications prior to admission. Current Facility-Administered Medications: acetaminophen (TYLENOL) tablet 975 mg, 975 mg, Oral, Q8H PRN, Gaetano Saholi, MD bisacodyl (DULCOLAX) suppository 10 mg, 10 mg, Rectal, Daily PRN, Estefanía Burgos MD calcium carbonate (TUMS) chewable tablet 500 mg, 500 mg, Oral, 4x Daily PRN, Shawn Bajwa MD, 500 mg at 09/10/23 1211 enoxaparin (LOVENOX) syringe 70 mg, 1 mg/kg, Subcutaneous, Q12H, Luly Ferrer MD, 70 mg at 09/10/23 1029 folic acid (FOLVITE) tablet 1 mg, 1 mg, Oral, Daily, Shawn Bjawa MD, 1 mg at 09/10/23 0859 ketorolac (TORADOL) injection 15 mg, 15 mg, Intravenous, Q6H PRN, Gaetano Alberto MD, 15 mg at 09/10/23 0616 lactulose (ENULOSE) 10 gm/15 mL solution 20 g, 30 mL, Oral, Q4H PRN, Estefanía Burgos MD methocarbamol (ROBAXIN) tablet 750 mg, 750 mg, Oral, TID, Gaetano Alberto MD, 750 mg at 09/10/23 0859 morphine (ROXANOL) 10 mg/5 mL solution 20 mg, 20 mg, Oral, Q4H, Luly Ferrer MD, 20 mg at 09/10/23 1029 morphine preservative free 10 mg/mL injection 4 mg, 4 mg, Intravenous, Q4H PRN, Luly Ferrer MD, 4 mg at 09/10/23 1148 multivitamin with minerals tablet 1 tablet, 1 tablet, Oral, Daily, Shawn Bajwa MD, 1 tablet at 09/10/23 0859 naloxone (NARCAN) 0.4 mg/mL injection 0.4 mg, 0.4 mg, Intravenous, Q5 Min PRN, Estefanía Burgos MD polyethylene glycol (miraLAx) packet 17 g, 17 g, Oral, Daily, Keeley Jacinto MD, 17 g at 09/10/23 1030 pregabalin (LYRICA) capsule 75 mg, 75 mg, Oral, BID, Luly Ferrer MD senna-docusate (SENNA-S) 8.6-50 MG tablet 2 tablet, 2 tablet, Oral, Nightly, Estefanía Burgos MD thiamine (VITAMIN B-1) injection 200 mg, 200 mg, Intravenous, Daily, Estefanía Burgos MD, 200 mg at 09/10/23 0859 Intake/Output Summary (Last 24 hours) at 09/10/2023 1302 Last data filed at 09/10/2023 0800 Gross per 24 hour Intake 840 ml Output 1450 ml Net -610 ml Results from last 7 days Lab Units 09/10/23 0403 WHITE BLOOD CELL COUNT Thou/uL 10.7 HEMOGLOBIN g/dL 9.1* HEMATOCRIT % 28.4* PLATELET COUNT Thou/uL 276 Results from last 7 days Lab Units 09/10/23 1140 09/10/23 0408 09/10/23 0403 SODIUM mmol/L -- -- 134* POTASSIUM mmol/L -- -- 3.9 CHLORIDE mmol/L -- -- 104 CO2 mmol/L -- -- 23 BUN mg/dL -- -- CREATININE mg/dL -- -- 0.5* EGFR -- -- >90 GLUCOSE mg/dL -- -- 111* GLUCOSE, POC mg/dL 118* < > -- CALCIUM mg/dL -- -- 8.6* < > = values in this interval not displayed. US Venous Duplex Legs-Bilateral (DVT) Result Date: 09/08/2023 CLINICAL INFORMATION: Rule out DVT COMPARISON: None. TECHNIQUE: Real-time scanning of the bilateral lower extremity deep venous systems was performed assessing ashraf scale appearance, color and duplex Doppler flow and compressibility. FINDINGS: The bilateral distal external iliac veins demonstrate normal color flow. The common femoral, proximal deep femoral, proximal greater saphenous, femoral and popliteal veins show normal color flow and compressibility. The visualized calf veins also demonstrate normal color flow and are compressible. No Alegre's cyst. No evidence of acute deep vein thrombosis. XR Chest 1 view-Portable Result Date: 09/08/2023 CLINICAL INFORMATION: Hypoxia COMPARISON: CXR - 09/07/23. TECHNIQUE: AP view of the chest. FINDINGS: Heart/Mediastinum: The cardiac silhouette is unchanged. The mediastinal contours are relatively stable. Lungs: Persistent retrocardiac and right infrahilar/basilar opacities, similar to previous study. No effusion is evident. Osseous Structures: No acute abnormalities. Similar to previous study. XR Chest 1 view-Portable Result Date: 09/08/2023 CLINICAL INFORMATION: sob, hypoxia COMPARISON: Chest x-ray 09/06/2023. TECHNIQUE: AP view of the chest. FINDINGS: Heart/Mediastinum: The cardiac silhouette is unchanged. The mediastinal contours are relatively stable. Lungs: Mild hazy opacities in the lung bases and in the LEFT retrocardiac region, may reflect areas of atelectasis. No pleural effusions. Osseous Structures: No acute abnormalities. Mild hazy opacity of the lung bases and in the LEFT retrocardiac region, may reflect areas of atelectasis. Superimposed pneumonia cannot be excluded. Recommend attention to follow-up for resolution. I agree with the above resident preliminary report. If this exam was interpreted by a resident, I personally reviewed the image(s) and resident's interpretation and agree with the findings. [facility] Archive for reference only CT Result Date: 09/08/2023 This order has been auto-finalized and does not contain a result. ETHAN Archive for reference only CR Result Date: 09/08/2023 This order has been auto-finalized and does not contain a result. ETHAN Archive for reference only CT Result Date: 09/08/2023 This order has been auto-finalized and does not contain a result. ETHAN Archive for reference only CR Result Date: 09/07/2023 This order has been auto-finalized and does not contain a result. ETHAN Archive for reference only CT Result Date: 09/07/2023 This order has been auto-finalized and does not contain a result. Assessment: 28 yo Female medically managed for 1. Intractable abdominal pain 2. Necrotizing pancreatitis with replacement of the pancreatic head 3. 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 Alcohol use disorder severe 5. Anxiety disorder Plan: 1. Patient has been seen and evaluated by the multidisciplinary team including ICU, syrgery, gastroetherology during their hospitalization 2. Patient with inactable abdominal pain in the context of severe necrotizing pancreatitis 3. Recommend multimodal pain control approach: -Patient's with intolerance to oxycodone in the past and reported intolerance to codeine however only is anxiety side effects -Would rotate analgesic regimen to the morphine on the higher dose due to her significant pathology process within the abdominal area as with intravenous morphine until the pain is relatively better controlled. -Antineuropathic medications and adjuvants muscle relaxer should be contemplated -Patient's status post nonsteroidal anti-inflammatory drugs utilizations -Currently on low molecular weight heparin so not a candidate for nonsteroidal anti-inflammatory drugs 4. Initiate prophylactic bowel regimen to prevent opioid-induced constipation 5. Activity as tolerated, encourage out of bed and mobilization, incentive spirometry while on bedrest 6. Main plan per primary team 7. Condition remained critical due to her extensive intra-abdominal pathology and the consequences of this hospitalizations long-term have been explained to the patient's during today's visit. Thank you for this consult. We will continue to follow this patient throughout their hospitalization. During this visit, the time spent included the following: Review of pertinent imaging studies and independently interpreting results, obtaining and reviewing separately obtained history, performing pertinent physical examination, reviewing imaging studies with the patient/family, counseling and educating the patient/family, ordering imaging studies, discussing referrals to other healthcare professionals and documenting clinical information in the electronic medical record. - I have personally reviewed the subspecialty notes and conversed with consulting physicians including but not limited to boiler coverer helper and gastroenterology - I have personally reviewed the CT SCHOOL OFFICE MANAGER on 09/10/23 - Medication reconciliation with parenteral medication to be instituted in terms of IV Morphine - Counseling including medication side effects and dependency potential Cherry Gomez MD 09/10/2023 1:02 PM Available via [facility] Work Phone: 09-10-2023 Consult note Associated Order (s): IP CONSULT TO PAIN MANAGEMENT PROVIDER Pain Management Consult Note Date of Consult: 09/10/2023 Patient's Primary Care Provider: Ibeth Lassiter MD Physician Requesting Consult: Fela Rodriguez MD Reason for Consultation: Intractable Abdominal Pain Name: Corrine Aguilar Age: 28 y.o. Sex: female Principal Problem: Acute pancreatitis with infected necrosis, unspecified (POA: Yes) Resolved Problems: History of Present Illness: Tia female with past medical history of only anxiety disorder and hyperthyroidism presented to our facility as a transfer from [facility] in [place] For management of acute necrotizing pancreatitis. She initially presented on September 02 with abdominal pain nausea and vomiting in the setting of elevated lipase and with a lactate of 7. A repeat CT scan done prior to the transfer showed evidence of extensive pancreatic necrosis with replacement of the pancreatic head by fluid level along with associated portal vein and splenic vein thrombosis. 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 She is currently on argatroban. The patient's reports that she continues to have severe abdominal pain with back radiation and inability to tolerate any p.o. intake. Time of my evaluations the patient's reports abdominal pain with a visceral component in the epigastric area is radiating to the back. She continues to have some mild nausea however no vomiting since admitted to our facility and remained monitored in the intensive care unit. The CT SCHOOL OFFICE MANAGER have been reviewed and is longer as well as the SCHOOL OFFICE MANAGER from [place] with no medications available in the last 2 years. Past Medical History Past Medical History: Diagnosis Date Alcohol abuse Asthma Past Surgical History Past Surgical History: Procedure Laterality Date SECTION 05/21/2020 Cammy Chanel MD Family History The patient is engaged she has 3 children at the age 94 and 3 and 9 siblings apparently in good health, not she has twin sisters both of the diabetes. Both of her parents are alive mother at the age of 68 and father at the age of 63 with history of drug addictions hep hepatitis C Social History The patient is not working she had various jobs before her current unemployment she had a history of smoking for approximately 5 years duration but she quit approximately 5 years ago and she reports she is drinking constantly for the last month and a half buying 12 nebs consuming them 16 arose while playing games and subsequently using the rest. She does however reports she has never been enrolled in alcohol detox programs in the past. The patient denies any history of illicit drug use she has never been enrolled in methadone Suboxone or medical marijuana program. Subjective: Review of Systems Constitutional: Negative for chills, fatigue and fever. Respiratory: Negative for cough, shortness of breath and wheezing. Cardiovascular: Negative for chest pain and leg swelling. Gastrointestinal: Positive for abdominal distention, abdominal pain and nausea. Negative for constipation, diarrhea and vomiting. Genitourinary: Negative for difficulty urinating. Musculoskeletal: Negative for back pain and neck pain. Skin: Negative for wound. Neurological: Negative for dizziness, weakness, numbness and headaches. Hematological: Negative for adenopathy. Psychiatric/Behavioral: Negative for sleep disturbance. Objective: Vitals Vitals: 09/10/23 0500 09/10/23 0600 09/10/23 0800 09/10/23 1200 BP: 128/77 132/81 128/71 BP Location: Right arm Right arm Patient Position: Lying Lying Pulse: (!) 105 (!) 120 (!) 109 Resp: (!) 23 (!) 21 (!) 23 Temp: 99.8 ?F (37.7 ?C) 98.7 ?F (37.1 ?C) TempSrc: Oral Oral SpO2: 94% 95% 94% Weight: 71.2 kg (156 lb 15.5 oz) Height: Physical Exam Constitutional: General: She is in acute distress. Appearance: Normal appearance. HENT: Mouth/Throat: Mouth: Mucous membranes are moist. Eyes: Pupils: Pupils are equal, round, and reactive to light. Pulmonary: Effort: Pulmonary effort is normal. Breath sounds: No wheezing or rhonchi. Abdominal: General: There is distension. Tenderness: There is abdominal tenderness. There is guarding. Musculoskeletal: General: No swelling or tenderness. Skin: General: Skin is dry. Neurological: Mental Status: She is alert and oriented to person, place, and time. Sensory: Sensation is intact. Motor: Motor function is intact. Psychiatric: Mood and Affect: Mood normal. Behavior: Behavior normal. Behavior is cooperative. Allergies Allergen Reactions Codeine Anaphylaxis Oxycodone Anaphylaxis Penicillins Anaphylaxis Medications No medications prior to admission. Current Facility-Administered Medications: acetaminophen (TYLENOL) tablet 975 mg, 975 mg, Oral, Q8H PRN, Gaetano Alberto MD bisacodyl (DULCOLAX) suppository 10 mg, 10 mg, Rectal, Daily PRN, Estefanía Burgos MD calcium carbonate (TUMS) chewable tablet 500 mg, 500 mg, Oral, 4x Daily PRN, Shawn Bajwa MD, 500 mg at 09/10/23 1211 enoxaparin (LOVENOX) syringe 70 mg, 1 mg/kg, Subcutaneous, Q12H, Luly Ferrer MD, 70 mg at 09/10/23 1029 folic acid (FOLVITE) tablet 1 mg, 1 mg, Oral, Daily, Shawn Bajwa MD, 1 mg at 09/10/23 0859 ketorolac (TORADOL) injection 15 mg, 15 mg, Intravenous, Q6H PRN, Gaetano Alberto MD, 15 mg at 09/10/23 0616 lactulose (ENULOSE) 10 gm/15 mL solution 20 g, 30 mL, Oral, Q4H PRN, Estefanía Burgos MD methocarbamol (ROBAXIN) tablet 750 mg, 750 mg, Oral, TID, Gaetano Alberto MD, 750 mg at 09/10/23 0859 morphine (ROXANOL) 10 mg/5 mL solution 20 mg, 20 mg, Oral, Q4H, Luly Ferrer MD, 20 mg at 09/10/23 1029 morphine preservative free 10 mg/mL injection 4 mg, 4 mg, Intravenous, Q4H PRN, Luly Ferrer MD, 4 mg at 09/10/23 1148 multivitamin with minerals tablet 1 tablet, 1 tablet, Oral, Daily, Shawn Bajwa MD, 1 tablet at 09/10/23 0859 naloxone (NARCAN) 0.4 mg/mL injection 0.4 mg, 0.4 mg, Intravenous, Q5 Min PRN, Etsefanía Burgos MD polyethylene glycol (miraLAx) packet 17 g, 17 g, Oral, Daily, Keeley Jacinto MD, 17 g at 09/10/23 1030 pregabalin (LYRICA) capsule 75 mg, 75 mg, Oral, BID, Luly Ferrer MD senna-docusate (SENNA-S) 8.6-50 MG tablet 2 tablet, 2 tablet, Oral, Nightly, Estefanía Burgos MD thiamine (VITAMIN B-1) injection 200 mg, 200 mg, Intravenous, Daily, Estefanía Burgos MD, 200 mg at 09/10/23 0859 Intake/Output Summary (Last 24 hours) at 09/10/2023 1302 Last data filed at 09/10/2023 0800 Gross per 24 hour Intake 840 ml Output 1450 ml Net -610 ml Results from last 7 days Lab Units 09/10/23 0403 WHITE BLOOD CELL COUNT Thou/uL 10.7 HEMOGLOBIN g/dL 9.1* HEMATOCRIT % 28.4* PLATELET COUNT Thou/uL 276 Results from last 7 days Lab Units 09/10/23 1140 09/10/23 0408 09/10/23 0403 SODIUM mmol/L -- -- 134* POTASSIUM mmol/L -- -- 3.9 CHLORIDE mmol/L -- -- 104 CO2 mmol/L -- -- 23 BUN mg/dL -- -- <5* CREATININE mg/dL -- -- 0.5* EGFR -- -- >90 GLUCOSE mg/dL -- -- 111* GLUCOSE, POC mg/dL 118* < > -- CALCIUM mg/dL -- -- 8.6* < > = values in this interval not displayed. US Venous Duplex Legs-Bilateral (DVT) Result Date: 09/08/2023 CLINICAL INFORMATION: Rule out DVT COMPARISON: None. TECHNIQUE: Real-time scanning of the bilateral lower extremity deep venous systems was performed assessing ashraf scale appearance, color and duplex Doppler flow and compressibility. FINDINGS: The bilateral distal external iliac veins demonstrate normal color flow. The common femoral, proximal deep femoral, proximal greater saphenous, femoral and popliteal veins show normal color flow and compressibility. The visualized calf veins also demonstrate normal color flow and are compressible. No Alegre's cyst. No evidence of acute deep vein thrombosis. XR Chest 1 view-Portable Result Date: 09/08/2023 CLINICAL INFORMATION: Hypoxia COMPARISON: CXR - 09/07/23. TECHNIQUE: AP view of the chest. FINDINGS: Heart/Mediastinum: The cardiac silhouette is unchanged. The mediastinal contours are relatively stable. Lungs: Persistent retrocardiac and right infrahilar/basilar opacities, similar to previous study. No effusion is evident. Osseous Structures: No acute abnormalities. Similar to previous study. XR Chest 1 view-Portable Result Date: 09/08/2023 CLINICAL INFORMATION: sob, hypoxia COMPARISON: Chest x-ray 09/06/2023. TECHNIQUE: AP view of the chest. FINDINGS: Heart/Mediastinum: The cardiac silhouette is unchanged. The mediastinal contours are relatively stable. Lungs: Mild hazy opacities in the lung bases and in the LEFT retrocardiac region, may reflect areas of atelectasis. No pleural effusions. Osseous Structures: No acute abnormalities. Mild hazy opacity of the lung bases and in the LEFT retrocardiac region, may reflect areas of atelectasis. Superimposed pneumonia cannot be excluded. Recommend attention to follow-up for resolution. I agree with the above resident preliminary report. If this exam was interpreted by a resident, I personally reviewed the image(s) and resident's interpretation and agree with the findings. ETHAN Archive for reference only CT Result Date: 09/08/2023 This order has been auto-finalized and does not contain a result. ETHAN Archive for reference only CR Result Date: 09/08/2023 This order has been auto-finalized and does not contain a result. ETHAN Archive for reference only CT Result Date: 09/08/2023 This order has been auto-finalized and does not contain a result. ETHAN Archive for reference only CR Result Date: 09/07/2023 This order has been auto-finalized and does not contain a result. ETHAN Archive for reference only CT Result Date: 09/07/2023 This order has been auto-finalized and does not contain a result. Assessment: 28 yo Female medically managed for 1. Intractable abdominal pain 2. Necrotizing pancreatitis with replacement of the pancreatic head 3. 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 Alcohol use disorder severe 5. Anxiety disorder Plan: 1. Patient has been seen and evaluated by the multidisciplinary team including ICU, syrgery, gastroetherology during their hospitalization 2. Patient with inactable abdominal pain in the context of severe necrotizing pancreatitis 3. Recommend multimodal pain control approach: -Patient's with intolerance to oxycodone in the past and reported intolerance to codeine however only is anxiety side effects -Would rotate analgesic regimen to the morphine on the higher dose due to her significant pathology process within the abdominal area as with intravenous morphine until the pain is relatively better controlled. -Antineuropathic medications and adjuvants muscle relaxer should be contemplated -Patient's status post nonsteroidal anti-inflammatory drugs utilizations -Currently on low molecular weight heparin so not a candidate for nonsteroidal anti-inflammatory drugs 4. Initiate prophylactic bowel regimen to prevent opioid-induced constipation 5. Activity as tolerated, encourage out of bed and mobilization, incentive spirometry while on bedrest 6. Main plan per primary team 7. Condition remained critical due to her extensive intra-abdominal pathology and the consequences of this hospitalizations long-term have been explained to the patient's during today's visit. Thank you for this consult. We will continue to follow this patient throughout their hospitalization. During this visit, the time spent included the following: Review of pertinent imaging studies and independently interpreting results, obtaining and reviewing separately obtained history, performing pertinent physical examination, reviewing imaging studies with the patient/family, counseling and educating the patient/family, ordering imaging studies, discussing referrals to other healthcare professionals and documenting clinical information in the electronic medical record. - I have personally reviewed the subspecialty notes and conversed with consulting physicians including but not limited to boiler coverer helper and gastroenterology - I have personally reviewed the CT SCHOOL OFFICE MANAGER on 09/10/23 - Medication reconciliation with parenteral medication to be instituted in terms of IV Morphine - Counseling including medication side effects and dependency potential Cherry Gomez MD 09/10/2023 1:02 PM Available via [facility] Associated Order(s): IP CONSULT TO PAIN MANAGEMENT PROVIDER Images from the original note were not included. Gastroenterology Consult Note Date of Consult: 09/08/2023 Patient's Primary Care Physician: Ibeth Lassiter MD Physician Requesting Consult: Ambika Patient's Accreditation Manager: none Encounter Provider: Panchito Sanders MD Name: Corrine Aguilar Age: 28 y.o. Sex: female REASON FOR CONSULT: Abdominal pain and pancreatitis HISTORY OF PRESENT ILLNESS Ms. Aguilar is a 28 y.o. female who was admitted and transferred to [facility] from in [place] due to significant necrotizing pancreatitis and abdominal pain. Per the patient and the medical record she began experiencing increasing abdominal pain and distention on September 02. She reports that she had been drinking heavily over the past 1-2 months. Consuming approximately 16 to 20 ounces of alcohol a day. On the day of admission to she had significant abdominal pain, nausea and vomiting. Initial imaging demonstrated significant replacement of the pancreas by fluid collection concerning for early walled off necrosis. She had significant hepatic steatosis as well. Patient was started on IV hydration with colloid consisting of lactated Ringer's. Patient was noted to have positive alcohol level along with a significant high anion gap metabolic acidosis. She was admitted to ICU there. Lactic acid trending downward but with sustained lipase level and ongoing acute kidney injury. She developed significant thrombocytopenia as well with platelets dropping to 65,000 and hemoglobin from 12.5 to 8.9 g. Patient developed progressive hypoxemia with evidence of possible pulmonary edema on chest x-ray which responded to IV furosemide. Repeat CT scan showing significant pancreatic destruction and replacement by necrosis. There was development of portal vein thrombosis. Patient is currently denying any fever or chills. Complaining of abdominal pain without radiation. Currently without any nausea or vomiting either. PAST MEDICAL HISTORY Past Medical History: Diagnosis Date Alcohol abuse Asthma PAST SURGICAL HISTORY No past surgical history on file. FAMILY HISTORY Her family history is not on file. SOCIAL HISTORY Ms. Aguilar reports current alcohol use. No history on file for tobacco use and drug use. ALLERGIES Codeine, Oxycodone, and Penicillins MEDICATIONS There are no discharge medications for this patient. Current inpatient medications: Folic acid Multivitamin potassium chloride Packet 40 mill equivalent Potassium chloride IVP 10 mill equivalent Senna-docusate (senna-S) 8.6/50 mg tablet 2 tablet Thiamine (vitamin B1) injection 200 mg Heparin (porcine) IV infusion 25,000 units and 500 mL 0.45% NaCl (premix) REVIEW OF SYSTEMS Review of Systems PHYSICAL EXAM Vitals: 09/08/23 0700 09/08/23 0800 09/08/23 0900 09/08/23 1100 BP: 138/87 129/86 132/81 134/82 BP Location: Right arm Patient Position: Lying Pulse: (!) 115 (!) 111 (!) 126 (!) 109 Resp: 20 17 (!) 23 20 Temp: 99.4 ?F (37.4 ?C) TempSrc: Axillary SpO2: 98% 97% 96% 97% Weight: Height: Intake/Output Summary (Last 24 hours) at 09/08/2023 1233 Last data filed at 09/08/2023 1100 Gross per 24 hour Intake 489.84 ml Output 2150 ml Net -1660.16 ml Physical Exam General appearance: alert and cooperative Eyes: no icterus ENT: moist mucous membranes Lungs: clear to auscultation bilaterally Heart: regular rate and rhythm, S1, S2 normal, no murmur, click, rub or gallop Abdomen: soft, non-tender, non-distended, (+) bowel sounds; (+) Ha's sign Extremities: no clubbing, cyanosis or edema Skin: normal color, texture, turgor; no stigmata of chronic liver disease Neurologic: grossly normal, A&O x 3, no asterixis RELEVANT LABS AND IMAGING Labs: Lab Results Component Value Date WBC 9.4 09/08/2023 HGB 9.1 (L) 09/08/2023 HCT 27.2 (L) 09/08/2023 PLT 86 (L) 09/08/2023 Lab Results Component Value Date NA 134 (L) 09/08/2023 K 3.4 09/08/2023 CL 99 09/08/2023 CO2 29 09/08/2023 BUN <5 (L) 09/08/2023 CREAT 0.4 (L) 09/08/2023 GLUC 130 (H) 09/08/2023 GLUC 95 09/08/2023 Lab Results Component Value Date AST 45 (H) 09/08/2023 ALT 11 09/08/2023 ALKPHOS 153 (H) 09/08/2023 BILITOT 0.9 09/08/2023 ALBUMIN 3.6 09/08/2023 PROT 5.6 (L) 09/08/2023 LABGLOB 2.0 09/08/2023 AGRATIO 1.8 09/08/2023 Lab Results Component Value Date PTT 50 (H) 09/08/2023 LABPROT 16.6 (H) 09/08/2023 INR 1.5 09/08/2023 Lab Results Component Value Date COLORUA Yellow 09/07/2023 CLARITYUA Clear 09/07/2023 SPECGRAVUA 1.013 09/07/2023 PHUA 8.5 (H) 09/07/2023 PROTEINUA Small (30 mg/dL) (A) 09/07/2023 GLUCUA Negative 09/07/2023 KETONESUA Negative 09/07/2023 BLOODUA Large (A) 09/07/2023 NITRITEUA Negative 09/07/2023 LEUKOCYTESUA Negative 09/07/2023 BILIUA Negative 09/07/2023 Lab Results Component Value Date AMYLASE 90 09/07/2023 Lab Results Component Value Date LIPASE 96 (H) 09/07/2023 No results found for: CRP Lab Results Component Value Date TRIG 174 (H) 09/08/2023 No results found for: AMPHTQTU , BARBIT , BENZOU , BUPRE , CANNAB , COCAINE , METHU , OPIATE , OXYCODONE , PCP , LABPROP Lab Results Component Value Date CREAT 0.4 (L) 09/08/2023 Imaging Studies: ?[address] ?[place] [address] ?XRay Report ? Signed ? ?? Patient: Corrine Aguilar ?MR#: [id number] ? 5 ? : 1995 ?Acct:[id number] ? Age/Sex: 28 / F ?ADM Date: 09/04/23 ? Loc: HO.ICU ?253-1 ? Attending Dr: Matt Syed MD ? Ordering Physician: Steven Riddle ? Date of Service: 09/06/23 ? Procedure(s): XR chest 1V ? Accession Number(s): [id number] ? ?? cc: Steven Riddle; Ibeth Lassiter MD ? EXAMINATION: ? XR CHEST ? ?? CLINICAL INFORMATION: ? Hypoxia ? ?? COMPARISON: ? Portable chest 08/27/2023 ? ?? TECHNIQUE: ? AP upright portable view of the chest was obtained, 2 AP views. 7:55 AM ? ?? FINDINGS: ? Lung?volumes are low. Increased opacity in the lung bases may be due to ? compressive atelectasis. Slight increased opacity at the left lung base ? could be due to atelectasis and/or pneumonia. No interstitial pulmonary ? edema or pneumothorax. No gross pleural effusion. The patient's right ? nipple ornament obscure the right cardiophrenic angle. The left ? costophrenic angle is sharp. The cardiomediastinal silhouette is ? stable. No acute osseous abnormality. ? XR/XR chest?1V ? IMPRESSION: ? 1. ?Low lung volumes with bibasilar atelectasis. ? 2. ?Left lower lobe atelectasis and/or pneumonia. ? Dictated By: ?Maria C Ribeiro MD ? Signed By: ?<Electronically signed by Maria C Ribeiro MD in OV> ?09/06/2334 ? DD/ ? TD/TT: ? [facility]: ?[address] ?[place] [address] ? CT Scan Report ? Signed ? ?? Patient: Celio Aguilarah ?MR#: [id number] ? 5 ? : 1995 ?Acct:[id number] ? Age/Sex: 28 / F ?ADM Date: 09/04/23 ? Loc: HO.IMC ?469-1 ? Attending Dr: Tom Boyle MD ? Ordering Physician: Matt Syed MD ? Date of Service: 09/07/23 ? Procedure(s): CT abdomen pelvis w IV con ? Accession Number(s): [id number] ? ?? cc: Matt Syed MD; Ibeth Lassiter MD ? EXAMINATION: ? CT ABDOMEN AND PELVIS WITH CONTRAST ? CLINICAL INFORMATION: ? Acute pancreatitis question necrotizing or cysts ? COMPARISON: ? 09/04/2023 ? ?? TECHNIQUE: ? Multidetector volumetric images were obtained from the superior aspect ? of the liver through the pubic symphysis following administration 85 mL ? of Omnipaque 350 intravenous contrast. Sagittal and coronal reformatted ? images were obtained on the technologist's workstation. ? ? Oral contrast: No ? ?? This CT examination was performed using dose optimization techniques as ? appropriate, variously including the following: ? *Automated exposure control ? *Adjustment of mA and/or kV according to patient size (this includes ? techniques or standardized protocols for targeted exams where dose is ? matched to indication/reason for exam; i.e. extremities or head) ? *Use of iterative reconstruction technique ? ?? DLP: ? 480 mGy-cm ? ?? FINDINGS: ? LUNG BASES: There is new since previous examination moderate bilateral ? pleural effusions with adjacent compressive atelectasis. ? LIVER, GALLBLADDER, AND BILIARY TREE: Liver is of low attenuation due ? to hepatic steatosis without intrahepatic masses or ductal dilatation. ? Gallbladder is distended with no obvious stones but increase ? attenuation of bile due to vicarious excretion of previously injected ? intravenous contrast ? PANCREAS: There is significant destruction of the pancreas replaced?by ? fluid due to pancreatic necrosis there are foci of pancreatic tissue ? seen in the distal body and tail but the most of the body and ? pancreatic head replaced by fluid. The fluid is extending cephalad and ? caudad. ? ? There is developing thrombosis of portal vein and splenic vein ? SPLEEN: Unremarkable. ? ADRENAL GLANDS: Unremarkable. ? KIDNEYS AND URETERS: There is a nonobstructing punctate calculus in the ? lower pole of right kidney. The left kidney is unremarkable. ? BLADDER: Unremarkable. ? GASTROINTESTINAL TRACT: Loops of bowel are distended due to ileus ? without perforation or wall thickening. Apparent is unremarkable. ? ABDOMINAL WALL: No significant hernia is appreciated. ? LYMPH NODES: Normal. ? ?? VASCULAR: Unremarkable. ? ?? PELVIC VISCERA: There is pelvic ascites surrounding uterus. ? OSSEOUS STRUCTURES: Unremarkable. ? CT/CT abdomen pelvis w IV con ? IMPRESSION: ? Severe pancreatitis with necrosis portal and splenic venous thrombosis ? Growing amount of ascites and pleural effusion. Bibasilar atelectasis. ? ?? This critical result was discussed with Matt Syed M.D. at 2:50 PM ? on 09/07/2023 and it was ascertained that the content and urgency of ? the report was understood at the time of direct communication. ? Fleischner guidelines were followed. ? Dictated By: ?Ke Jauregui MD ? Signed By: ?<Electronically signed by Ke Jauregui MD in OV> ? 09/07/23 1453 ? DD/ 1327 ? TD/TT: ? Warp Dyeing Tender: ? ASSESSMENT & PLAN Assessment and plan: In summary this is a 28-year-old female admitted to [facility] today for management of progressive pancreatitis with significant both local and systemic complications from her acute pancreatitis. The etiology of her acute pancreatitis is related to her significant alcohol consumption which has led to direct toxic effects on the pancreas with activation of cytokine and immune directed injury. It appears that her pancreatitis currently is of the hemorrhagic-necrotizing type having originally presented more as interstitial/edematous pancreatitis. She had presented with acute respiratory distress syndrome that appears to be responding to management. Currently she is only on nasal cannula. Will continue to monitor closely. Currently she has not had any development of acute kidney injury from her pancreatitis. However, we should continue to monitor her kidney function closely along with her electrolytes and monitoring of fluid status.. On CT scan she has significant necrosis and replacement of the pancreas with fluid collections. She may progress towards a walled off necrosis. WOPN is a diagnosis from chronic pancreatitis lasting 4weeks or longer. At this time I do not believe that the necrosis is infected. Patient does not appear to have any systemic inflammatory response at this time. But would continue to monitor CRP serially. She has significant abdominal pain at this time. Would continue with analgesia as you have been doing. Patient's last blood sugar was 95. Would continue to monitor this closely. Would run serial fingersticks every 6 hours. Patients often develop significant hyperglycemia requiring insulin infusion. More systemic effects from severe pancreatitis would be compartment syndrome as well as disseminated intravascular coagulation (DIC). She does have development of splenic vein thrombosis. For now, can continue with heparin infusion and monitoring closely as she may develop hemorrhagic changes given her thrombocytopenia. With respect to nutrition, early enteral feeding is preferred. Patient is currently tolerating clears without any nausea or vomiting. Would have surgery follow along closely. Would consider endoscopic necrosectomy if patient deteriorates. Sign: Panchito Sanders MD 09/08/2023 12:33 PM Associated Order(s): IP CONSULT TO GENERAL SURGERY SURGERY CONSULT Patient Name: Corrine Aguilar Patient Age: 28 y.o. Patient Gender: female Patient : 1995 Requesting Physician: Dr. Rodriguez Consulting Physician: Dr Lopes Reason for Consult: necrotizing pancreatitis Arrival Date:09/07/2023 10:18 PM Evaluation date & time: 09/08/23 320AM CHIEF COMPLAINT: abdominal pain x1 week HISTORY OF THE PRESENT ILLNESS: 28F Phx of ETOH use transferred here from [place] for necrotizing pancreatitis. She presented to [place] on 09/02 for severe abdominal pain, N/V. Was noted to have elevated lipase, ETOH level of 164, lactate of 7.2, metabolic acidosis on ABG. On HD#4 she deteriorated with hypoxia, pulmonary edema and alcohol withdrawal symptoms requiring phenobarbital. Repeat CT on 09/06 showed worsening pancreatitis necrosis and portal vein & splenic vein thromboses. Currently patient has diffuse abdominal pain. No N/V. States last BM was Sunday which is abnormal for her. Last drink was Sunday. Typically drinks 8 nips daily. No prior abdominal surgeries. PAST MEDICAL HISTORY: Past Medical History: Diagnosis Date Alcohol abuse Asthma SURGICAL HISTORY: No past surgical history on file. FAMILY HISTORY: No family history on file. SOCIAL HISTORY: Social History Tobacco Use Smoking Status Not on file Smokeless Tobacco Not on file Social History Substance and Sexual Activity Alcohol Use Yes Comment: 10-12 nips per day Social History Substance and Sexual Activity Drug Use Not on file MEDICATIONS: Current Facility-Administered Medications: bisacodyl (DULCOLAX) suppository 10 mg, 10 mg, Rectal, Daily PRN, Estefanía Burgos MD folic acid (FOLVITE) tablet 1 mg, 1 mg, Oral, Daily, Shawn Bajwa MD heparin (porcine) 1000 unit/mL injection 1,500 Units, 20 Units/kg, Intravenous, Q6H PRN, Shawn Bajwa MD heparin (porcine) 1000 unit/mL injection 2,200 Units, 30 Units/kg, Intravenous, Q6H PRN, Shawn Bajwa MD heparin (porcine) IV infusion 25,000 units in 500 mL 0.45% NaCl (premix), 15 Units/kg/hr, Intravenous, Continuous, Shawn Bajwa MD HYDROmorphone (DILAUDID) injection 0.2 mg, 0.2 mg, Intravenous, Q4H PRN, Estefanía Burgos MD, 0.2 mg at 09/08/23 0117 [Provider Held] lactated ringers with KCl 40 mEq/L (LR-KCL40) infusion, 100 mL/hr, Intravenous, Continuous, Shawn Bajwa MD, Stopped at 09/08/23 0249 lactulose (ENULOSE) 10 gm/15 mL solution 20 g, 30 mL, Oral, Q4H PRN, Estefanía Burgos MD multivitamin with minerals tablet 1 tablet, 1 tablet, Oral, Daily, Shawn Bajwa MD naloxone (NARCAN) 0.4 mg/mL injection 0.4 mg, 0.4 mg, Intravenous, Q5 Min PRN, Estefanía Burgos MD potassium chloride (KLOR-CON) packet 20 mEq, 20 mEq, Oral, Once, Shawn Bajwa MD senna-docusate (SENNA-S) 8.6-50 MG tablet 2 tablet, 2 tablet, Oral, Nightly, Estefanía Burgos MD thiamine (VITAMIN B-1) injection 200 mg, 200 mg, Intravenous, Daily, Estefanía Burgos MD ALLERGIES: Allergies Allergen Reactions Codeine Anaphylaxis Oxycodone Anaphylaxis Penicillins Anaphylaxis Objective VITAL SIGNS: (!) 109,Resp:19,BP:130/75,SpO2:98 %,Weight:73.3 kg (161 lb 9.6 oz) PHYSICAL EXAM: GENERAL: Alert and oriented x 3 in NAD HEENT: Normocephalic, atraumatic. PEERLA Mouth: Mucous membranes are moist Neck: FROM. Trachea midline. CARDIAC: Sinus tachycardia LUNGS: 2L NC. Decreased breath sounds at b/l bases. ABD/GI: Striae on abdomen. Abdomen full but compressible. Moderately distended without guarding or rebound. Bilateral flank tenderness. : hui draining clear yellow urine. MUSCULOSKELETAL: Moving all 4 extremities with equal strength and sensation. VASC: 2+ radial and DP pulses bilaterally SKIN: C/D/I NEURO: II - XII grossly intact DIAGNOSTIC DATA: White Blood Cell Count Date Value Ref Range Status 09/07/2023 10.2 4.0 - 11.0 Thou/uL Final Hemoglobin Date Value Ref Range Status 09/07/2023 9.3 (L) 11.7 - 15.7 g/dL Final Hematocrit Date Value Ref Range Status 09/07/2023 27.7 (L) 35.0 - 47.0 % Final Platelet Count Date Value Ref Range Status 09/07/2023 83 (L) 150 - 450 Thou/uL Final Lab Results Component Value Date NA 135 (L) 09/07/2023 K 2.8 (LL) 09/07/2023 CL 98 09/07/2023 CO2 30 09/07/2023 BUN <5 (L) 09/07/2023 CREAT 0.4 (L) 09/07/2023 GLUC 107 (H) 09/07/2023 Lab Results Component Value Date CALCIUM 8.5 (L) 09/07/2023 MG 1.9 09/07/2023 Lab Results Component Value Date AST 41 (H) 09/07/2023 ALT 10 09/07/2023 ALKPHOS 140 (H) 09/07/2023 BILITOT 1.0 09/07/2023 ALBUMIN 3.7 09/07/2023 PROT 5.7 09/07/2023 Lab Results Component Value Date COLORUA Yellow 09/07/2023 CLARITYUA Clear 09/07/2023 SPECGRAVUA 1.013 09/07/2023 PHUA 8.5 (H) 09/07/2023 PROTEINUA Small (30 mg/dL) (A) 09/07/2023 GLUCUA Negative 09/07/2023 KETONESUA Negative 09/07/2023 BLOODUA Large (A) 09/07/2023 NITRITEUA Negative 09/07/2023 LEUKOCYTESUA Negative 09/07/2023 BILIUA Negative 09/07/2023 ETHAN Archive for reference only CT This order has been auto-finalized and does not contain a result. ETHAN Archive for reference only CT This order has been auto-finalized and does not contain a result. ETHAN Archive for reference only CR This order has been auto-finalized and does not contain a result. Assessment & Plan Assessment: 28F transferred here for alcohol induced necrotizing pancreatitis an portal vein, splenic vein thromboses. She is tachycardic, and requiring 2L NC but BP is WNL. She has distended, full abdomen but it is still compressible. Diffuse tenderness but no harman peritoneal signs. Labs here significant for thrombocytopenia, hypokalemia and elevated procalcitonin. Lactate and renal function WNL. Imaging uploaded showing necrotizing pancreatitis with significant amount of abdominal free fluid. I see the protal vein and splenic vein thromboses. On my review, it appears there is also possibly a small non-occlusive clot in the proximal superior mesenteric vein? No evidence of bowel ischemia. Plan: Recommend heparin drip for thromboses Pt at risk for developing abdominal compartment syndrome and ischemic bowel. Will continue to follow along if patient deteriorates. Discussed with boiler coverer helper that if pt deteriorates and requires intubation, to measure bladder pressure while paralyzed. Will ask our radiology team to review and formally read the images. ID: elevated procalcitonin. Low threshold to start antibiotics. PULM: monitor respiratory status RENAL: Monitor renal function and urine output. PAIN/NAUSEA MANAGEMENT: Co-Morbidities: monitor for any further alcohol withdrawal DIET: recommend NPO, can have some ice chips ACTIVITY: ambulate LABS/DIAGNOSTICS: replete electrolytes Discussed with Dr. Lopes VTE Time Out IMPROVE SCORE: 2 (09/08/2023 2:03 AM) Interpretation - High Risk Chemical Prophylaxis heparin (porcine) IV infusion 25,000 units in 500 mL 0.45% NaCl (premix) Intravenous Continuous heparin (porcine) 1000 unit/mL injection 2,200 Units Intravenous Every 6 hours PRN heparin (porcine) 1000 unit/mL injection 1,500 Units Intravenous Every 6 hours PRN Mechanical Prophylaxis PRISCILLA Weston 09/08/2023 3:44 AM Associated attestation - Yin Lopes MD - 09/08/2023 6:21 AM EDT Attending: I have personally interviewed and examined the patient and I agree with CRAIG note and plan unless otherwise noted below. Pt with abdominal pain sincce Sunday. ETOH intake regularly. Last drink Sunday. No withdrawal. DX of alcoholic pancreatitis. Transferred here for management of necrotizing pancreatitis. On exam. Pt with abd pain . Blood pressure 135/76, pulse (!) 108, temperature 98.8 ?F (37.1 ?C), temperature source Oral, resp. rate 18, height 1.626 m (5' 4 ), weight 73.3 kg (161 lb 9.6 oz), SpO2 97%. Interactive. No oxygen requirement. Firm full abd. Some tympany. No nausea. Tender throughout and on flanks. Moves all four. Results from last 7 days Lab Units 09/08/23 0423 WHITE BLOOD CELL COUNT Thou/uL 9.4 HEMOGLOBIN g/dL 9.1* HEMATOCRIT % 27.2* PLATELET COUNT Thou/uL 86* IMMATURE GRANULOCYTES % 3.4 IMMATURE GRANULOCYTES ABSOLUTE Thou/uL 0.32* NEUTROS PCT % 70.9 NEUTROS ABS Thou/uL 6.65 LYMPHS PCT % 10.9 LYMPHS ABS Thou/uL 1.02* MONOS PCT % 13.1 MONOS ABS Thou/uL 1.23 EOS PCT % 1.1 EOS ABS Thou/uL 0.10 BASOS PCT % 0.6 BASOS ABS Thou/uL 0.06 Results from last 7 days Lab Units 09/08/23 0423 SODIUM mmol/L 134* POTASSIUM mmol/L 3.4 CHLORIDE mmol/L 99 CO2 mmol/L 29 BUN mg/dL <5* CREATININE mg/dL 0.4* EGFR >90 GLUCOSE mg/dL 95 CALCIUM mg/dL 8.6* CT: Thromboses as noted in pa note. Necrotizing pancreatitis. A?P Necrotizing pancreatitis. Potential smv thrombis. Pt without pain out of proportion to exam. Anticoagulation. Sips. IVF> Pain control. Moniotr in icu. No emergent surgical intervention. documented in this encounter [facility] 09-10-2023 manager public Note Type: (Inpt/Obs): 09/08/2023 Date of Admission: 09/08/2023 Admitting Dx: Acute pancreatitis with infected necrosis, unspecified [K85.92] HPI: 28F significant daily alcohol use, presented to [facility] with abdominal pain, vomiting, found to have acute pancreatitis, had baseline ct scan to support this, elevated lipase. Pt was fluid resuscitated (unclear total ins). Did initially make a lactate of 7 which downtrended to 2 range. Tx'd for alcohol withdrawal with phenobarbital. Given lasix for volume overload in review of DC summary. Was in the ICU there for part of the admission.? On 09/05, pt had ct abdomen and pelvis showing extensive pancreatic necrosis with replacement of pancreatic head by fluid, portal vein thrombosis and splenic vein thrombosis. Started on heparin at the referring institution. ? Pt transferred on 2L NC, no vasopressors. Reports severe abdominal and flank pain. Impression: Acute necrotizing pancreatitis Acute portal vein thrombosis Acute splenic vein thrombosis Alcohol dependence Hyponatremia Hypokalemia? Plan: Neuro - pain control with PRN iv hydromorphone, pain consult, does not appear to be actively withdrawing and previously received phenobarbital, hold on standing benzo/barbituates? CV - tachycardic, not in shock, lactate cleared to 0.8, volume overloaded with 3rd spacing, moderate + pleural effusions bilaterally Judicious iv fluids Would hold on diuretics at this time MAP goal is >65? Pulm - 2L NC, bilateral pleural effusion, chest splinting with high risk to develop pneumonia, not distressed ? GI 1. Acute necrotizing pancreatitis from alcohol use - check TG from admission labs, cautious fluids 2. Severe abdominal pain - at risk for developing abdominal compartment syndrome, consulted surgery, bladder pressure confounded by non-intubated/non-passive status but if intubated will measure 3. Acute portal and splenic vein thrombosis from pancreatic inflammation - resume heparin infusion, monitor anti-Xa per protocol 4. At risk for ischemic bowel, case d/w surgery, serial abdominal exams, pt has cleared lactate and has no current signs of shock 5. At risk for other complications of pancreatitis including infection, for now will walsh-culture patient, hold on abx; if needed would generally favor carbapenem 6. NPO? Renal Hui, hypervolemic hyponatremia, hypokalemia (replete), judicious fluids, volume overloaded? ID See above? Endo Glucose checks Q4H? Heme Trend CBC in particular platelet count, would be very early for HIT but closely monitor trend? DVT ppx heparin infusion ? Full code Vitals: T 99.3-133/78-112-20 with 02 sat 80% and placed on 2L NC Labs/Diagnostics: WBC 10 HGB 9 PLT 83 Na 135 K 2.8 Scr 0.4 BUN AST 41 ALT 10 Alk Phos 140 Lipase 96 Procalcitonin 18 VBG 7.55/36/73/32 Orders/Treatment Plan: telemetry, continuous pulse oximetry, glucose POCT q4h, daily weights, supplemental 02 204 LPM to maintain 02 sat >/=90%, progressive mobility, strict I & 0, hui Medications: KCL IV bolus x 4, Klor po x 2, Folic acid po daily, MVI po daily, Thiamine IV daily, IV Heparin gtt transitioned to IV Argatroban gtt, IV LR-KCL40 @ 100cc/hr, TUMS po qid prn x 3, Dilaudid IV q4h prn x 4, Toradol IV q6h prn x 3 Bed Type: ICU [facility] ED Work Phone: 09-08-2023 Plan of care note Summary: Brianna Palacio Problem: Adult Inpatient Plan of Care Goal: Readiness for Transition of Care Outcome: Progressing Case Management Care Plan Note Summary: Met with patient; admitted 09/06 from for management of acute necrotizing pancreatitis. Pt lives with her s.o. and children in a house in [place], [place]. Uses not DME, no HCS. Pt functions independently except for driving; her s.o. is able to drive. Hx etoh use d/o. Recommendations: anticipate home with family once medically able Admission Type: inpatient Clinical Trial: not applicable Hearing Difficulty or Deaf: no Wear Glasses or Blind: yes Concentrating, Remembering or Making Decisions Difficulty: no Difficulty Communicating: no Difficulty Eating/Swallowing: no Doing Errands Independently Difficulty (such as shopping): yes Errands Management: s.o. drives for errands and appointments Equipment Currently Used at Home: none Change in Functional Status Since Onset of Current Illness/Injury: yes Current Activity Tolerance: moderate Medications: independent Meal Preparation: independent Housekeeping: independent Laundry: independent Shopping: independent Urmila Cardenas 09/08/2023 3:59 PM [facility] ED 09-08-2023 Consult note Associated Order (s): IP CONSULT TO PAIN MANAGEMENT PROVIDER Images from the original note were not included. Gastroenterology Consult Note Date of Consult: 09/08/2023 Patient's Primary Care Physician: Ibeth Lassiter MD Physician Requesting Consult: Ambika Patient's Accreditation Manager: none Encounter Provider: Panchito Sanders MD Name: Corrine Aguilar Age: 28 y.o. Sex: female REASON FOR CONSULT: Abdominal pain and pancreatitis HISTORY OF PRESENT ILLNESS Ms. Aguilar is a 28 y.o. female who was admitted and transferred to [facility] from in [place] due to significant necrotizing pancreatitis and abdominal pain. Per the patient and the medical record she began experiencing increasing abdominal pain and distention on September 02. She reports that she had been drinking heavily over the past 1-2 months. Consuming approximately 16 to 20 ounces of alcohol a day. On the day of admission to she had significant abdominal pain, nausea and vomiting. Initial imaging demonstrated significant replacement of the pancreas by fluid collection concerning for early walled off necrosis. She had significant hepatic steatosis as well. Patient was started on IV hydration with colloid consisting of lactated Ringer's. Patient was noted to have positive alcohol level along with a significant high anion gap metabolic acidosis. She was admitted to ICU there. Lactic acid trending downward but with sustained lipase level and ongoing acute kidney injury. She developed significant thrombocytopenia as well with platelets dropping to 65,000 and hemoglobin from 12.5 to 8.9 g. Patient developed progressive hypoxemia with evidence of possible pulmonary edema on chest x-ray which responded to IV furosemide. Repeat CT scan showing significant pancreatic destruction and replacement by necrosis. There was development of portal vein thrombosis. Patient is currently denying any fever or chills. Complaining of abdominal pain without radiation. Currently without any nausea or vomiting either. PAST MEDICAL HISTORY Past Medical History: Diagnosis Date Alcohol abuse Asthma PAST SURGICAL HISTORY No past surgical history on file. FAMILY HISTORY Her family history is not on file. SOCIAL HISTORY Ms. Aguilar reports current alcohol use. No history on file for tobacco use and drug use. ALLERGIES Codeine, Oxycodone, and Penicillins MEDICATIONS There are no discharge medications for this patient. Current inpatient medications: Folic acid Multivitamin potassium chloride Packet 40 mill equivalent Potassium chloride IVP 10 mill equivalent Senna-docusate (senna-S) 8.6/50 mg tablet 2 tablet Thiamine (vitamin B1) injection 200 mg Heparin (porcine) IV infusion 25,000 units and 500 mL 0.45% NaCl (premix) REVIEW OF SYSTEMS Review of Systems PHYSICAL EXAM Vitals: 09/08/23 0700 09/08/23 0800 09/08/23 0900 09/08/23 1100 BP: 138/87 129/86 132/81 134/82 BP Location: Right arm Patient Position: Lying Pulse: (!) 115 (!) 111 (!) 126 (!) 109 Resp: 20 17 (!) 23 20 Temp: 99.4 ?F (37.4 ?C) TempSrc: Axillary SpO2: 98% 97% 96% 97% Weight: Height: Intake/Output Summary (Last 24 hours) at 09/08/2023 1233 Last data filed at 09/08/2023 1100 Gross per 24 hour Intake 489.84 ml Output 2150 ml Net -1660.16 ml Physical Exam General appearance: alert and cooperative Eyes: no icterus ENT: moist mucous membranes Lungs: clear to auscultation bilaterally Heart: regular rate and rhythm, S1, S2 normal, no murmur, click, rub or gallop Abdomen: soft, non-tender, non-distended, (+) bowel sounds; (+) Ha's sign Extremities: no clubbing, cyanosis or edema Skin: normal color, texture, turgor; no stigmata of chronic liver disease Neurologic: grossly normal, A&O x 3, no asterixis RELEVANT LABS AND IMAGING Labs: Lab Results Component Value Date WBC 9.4 09/08/2023 HGB 9.1 (L) 09/08/2023 HCT 27.2 (L) 09/08/2023 PLT 86 (L) 09/08/2023 Lab Results Component Value Date NA 134 (L) 09/08/2023 K 3.4 09/08/2023 CL 99 09/08/2023 CO2 29 09/08/2023 BUN CREAT 0.4 (L) 09/08/2023 GLUC 130 (H) 09/08/2023 GLUC 95 09/08/2023 Lab Results Component Value Date AST 45 (H) 09/08/2023 ALT 11 09/08/2023 ALKPHOS 153 (H) 09/08/2023 BILITOT 0.9 09/08/2023 ALBUMIN 3.6 09/08/2023 PROT 5.6 (L) 09/08/2023 LABGLOB 2.0 09/08/2023 AGRATIO 1.8 09/08/2023 Lab Results Component Value Date PTT 50 (H) 09/08/2023 LABPROT 16.6 (H) 09/08/2023 INR 1.5 09/08/2023 Lab Results Component Value Date COLORUA Yellow 09/07/2023 CLARITYUA Clear 09/07/2023 SPECGRAVUA 1.013 09/07/2023 PHUA 8.5 (H) 09/07/2023 PROTEINUA Small (30 mg/dL) (A) 09/07/2023 GLUCUA Negative 09/07/2023 KETONESUA Negative 09/07/2023 BLOODUA Large (A) 09/07/2023 NITRITEUA Negative 09/07/2023 LEUKOCYTESUA Negative 09/07/2023 BILIUA Negative 09/07/2023 Lab Results Component Value Date AMYLASE 90 09/07/2023 Lab Results Component Value Date LIPASE 96 (H) 09/07/2023 No results found for: CRP Lab Results Component Value Date TRIG 174 (H) 09/08/2023 No results found for: AMPHTQTU , BARBIT , BENZOU , BUPRE , CANNAB , COCAINE , METHU , OPIATE , OXYCODONE , PCP , LABPROP Lab Results Component Value Date CREAT 0.4 (L) 09/08/2023 Imaging Studies: ?[address] ?[place] [address] ?XRay Report ? Signed ? Patient: Aguilar,Corrine ?MR#: [id number] ? 5 ? : 1995 ?Acct:[id number] ? ? ? Age/Sex: 28 / F ?ADM Date: 09/04/23 ? ? Loc: HO.ICU ?253-1 ? Attending Dr: Matt Syed MD ? Ordering Physician: Steven Riddle ? Date of Service: 09/06/23 ? Procedure(s): XR chest 1V ? Accession Number(s): [id number] ? cc: Steven Riddle; Ibeth Lassiter MD ? EXAMINATION: ? XR CHEST ? CLINICAL INFORMATION: ? Hypoxia ? COMPARISON: ? Portable chest 08/27/2023 ? TECHNIQUE: ? AP upright portable view of the chest was obtained, 2 AP views. 7:55 AM ? FINDINGS: ? Lung?volumes are low. Increased opacity in the lung bases may be due to ? compressive atelectasis. Slight increased opacity at the left lung base ? could be due to atelectasis and/or pneumonia. No interstitial pulmonary ? edema or pneumothorax. No gross pleural effusion. The patient's right ? nipple ornament obscure the right cardiophrenic angle. The left ? costophrenic angle is sharp. The cardiomediastinal silhouette is ? stable. No acute osseous abnormality. ? XR/XR chest?1V ? IMPRESSION: ? 1. ?Low lung volumes with bibasilar atelectasis. ? 2. ?Left lower lobe atelectasis and/or pneumonia. ? Dictated By: ?Maria C Ribeiro MD ? Signed By: ?09/06/23 0834 ? DD/ 0811 ? TD/TT: ? Warp Dyeing Tender: ?[address] ?[place] [address] ? CT Scan Report ? Signed ? Patient: Corrine Aguilar ?MR#: [id number] ? 5 ? : 1995 ?Acct:[id number] ? ? ? Age/Sex: 28 / F ?ADM Date: 09/04/23 ? ? Loc: .[facility] ?469-1 ? Attending Dr: Tom Boyle MD ? Ordering Physician: Matt Syed MD ? Date of Service: 09/07/23 ? Procedure(s): CT abdomen pelvis w IV con ? Accession Number(s): [id number] ? cc: Matt Syed MD; Ibeth Lassiter MD ? EXAMINATION: ? CT ABDOMEN AND PELVIS WITH CONTRAST ? ? CLINICAL INFORMATION: ? Acute pancreatitis question necrotizing or cysts ? ? COMPARISON: ? 09/04/2023 ? TECHNIQUE: ? Multidetector volumetric images were obtained from the superior aspect ? of the liver through the pubic symphysis following administration 85 mL ? of Omnipaque 350 intravenous contrast. Sagittal and coronal reformatted ? images were obtained on the technologist's workstation. ? ? Oral contrast: No ? This CT examination was performed using dose optimization techniques as ? appropriate, variously including the following: ? *Automated exposure control ? *Adjustment of mA and/or kV according to patient size (this includes ? techniques or standardized protocols for targeted exams where dose is ? matched to indication/reason for exam; i.e. extremities or head) ? *Use of iterative reconstruction technique ? DLP: ? 480 mGy-cm ? FINDINGS: ? LUNG BASES: There is new since previous examination moderate bilateral ? pleural effusions with adjacent compressive atelectasis. ? ? LIVER, GALLBLADDER, AND BILIARY TREE: Liver is of low attenuation due ? to hepatic steatosis without intrahepatic masses or ductal dilatation. ? Gallbladder is distended with no obvious stones but increase ? attenuation of bile due to vicarious excretion of previously injected ? intravenous contrast ? ? PANCREAS: There is significant destruction of the pancreas replaced?by ? fluid due to pancreatic necrosis there are foci of pancreatic tissue ? seen in the distal body and tail but the most of the body and ? pancreatic head replaced by fluid. The fluid is extending cephalad and ? caudad. ? ? There is developing thrombosis of portal vein and splenic vein SPLEEN: Unremarkable. ? ? ADRENAL GLANDS: Unremarkable. ? ? KIDNEYS AND URETERS: There is a nonobstructing punctate calculus in the ? lower pole of right kidney. The left kidney is unremarkable. ? ? BLADDER: Unremarkable. ? ? GASTROINTESTINAL TRACT: Loops of bowel are distended due to ileus ? without perforation or wall thickening. Apparent is unremarkable. ? ? ABDOMINAL WALL: No significant hernia is appreciated. ? ? LYMPH NODES: Normal. ? VASCULAR: Unremarkable. ? PELVIC VISCERA: There is pelvic ascites surrounding uterus. ? ? OSSEOUS STRUCTURES: Unremarkable. ? ? CT/CT abdomen pelvis w IV con ? IMPRESSION: ? Severe pancreatitis with necrosis portal and splenic venous thrombosis ? Growing amount of ascites and pleural effusion. Bibasilar atelectasis. ? This critical result was discussed with Matt Syed M.D. at 2:50 PM ? on 09/07/2023 and it was ascertained that the content and urgency of ? the report was understood at the time of direct communication. ? Fleischner guidelines were followed. ? Dictated By: ?Ke Jauregui MD ? Signed By: ? 09/07/23 1453 ? DD/ 1327 ? TD/TT: ? [employer] Dye[employer] Tender: ? ASSESSMENT & PLAN Assessment and plan: In summary this is a 28-year-old female admitted to [facility] today for management of progressive pancreatitis with significant both local and systemic complications from her acute pancreatitis. The etiology of her acute pancreatitis is related to her significant alcohol consumption which has led to direct toxic effects on the pancreas with activation of cytokine and immune directed injury. It appears that her pancreatitis currently is of the hemorrhagic-necrotizing type having originally presented more as interstitial/edematous pancreatitis. She had presented with acute respiratory distress syndrome that appears to be responding to management. Currently she is only on nasal cannula. Will continue to monitor closely. Currently she has not had any development of acute kidney injury from her pancreatitis. However, we should continue to monitor her kidney function closely along with her electrolytes and monitoring of fluid status.. On CT scan she has significant necrosis and replacement of the pancreas with fluid collections. She may progress towards a walled off necrosis. WOPN is a diagnosis from chronic pancreatitis lasting 4weeks or longer. At this time I do not believe that the necrosis is infected. Patient does not appear to have any systemic inflammatory response at this time. But would continue to monitor CRP serially. She has significant abdominal pain at this time. Would continue with analgesia as you have been doing. Patient's last blood sugar was 95. Would continue to monitor this closely. Would run serial fingersticks every 6 hours. Patients often develop significant hyperglycemia requiring insulin infusion. More systemic effects from severe pancreatitis would be compartment syndrome as well as disseminated intravascular coagulation (DIC). She does have development of splenic vein thrombosis. For now, can continue with heparin infusion and monitoring closely as she may develop hemorrhagic changes given her thrombocytopenia. With respect to nutrition, early enteral feeding is preferred. Patient is currently tolerating clears without any nausea or vomiting. Would have surgery follow along closely. Would consider endoscopic necrosectomy if patient deteriorates. Sign: Panchito Sanders MD 09/08/2023 12:33 PM [facility] 09-08-2023 Note 128 [facility] Work Phone: P-R interval 128 ms EKG [facility] 09-08-2023 Note 408 [facility] Work Phone: Q-T interval 408 ms EKG [facility] 09-08-2023 Plan of care note Pt arrived accompanied by ED RN and tech. A+Ox4, VSS as charted; only complaining of abdominal discomfort. Medicated per AUG. Skin CDI, HOST/HOSTESS GROUND scan completed. Pt educated to unit and POC. No other questions or concerns levied at this time. Safety maintained. Marlon Uribe 09/08/2023 5:08 AM [facility] 09-08-2023 History and physical note Transferred from [facility] in [place] for acute necrotizing pancreatitis. See resident note separately for more granular review of outside hospital course. 28F significant daily alcohol use, presented to [facility] with abdominal pain, vomiting, found to have acute pancreatitis, had baseline ct scan to support this, elevated lipase. Pt was fluid resuscitated (unclear total ins). Did initially make a lactate of 7 which downtrended to 2 range. Tx'd for alcohol withdrawal with phenobarbital. Given lasix for volume overload in review of DC summary. Was in the ICU there for part of the admission. On 09/05, pt had ct abdomen and pelvis showing extensive pancreatic necrosis with replacement of pancreatic head by fluid, portal vein thrombosis and splenic vein thrombosis. Started on heparin at the referring institution. Pt transferred on 2L NC, no vasopressors. Reports severe abdominal and flank pain. Exam: 98.4 HR 119 130/75 98% 2L NC Appears acutely ill but not distressed Oral mucosa dry No scleral icterus Lungs diminished air entry bilaterally CV tachy, regular, S1, S2 Abd diffusely tender, soft, distended, non-rigid Ext warm, brisk cap refill to all fingers and toes, 2+ radial, PT/DP pulses Labs: WBC 10 HGB 9 PLT 83 Na 135 K 2.8 Scr 0.4 BUN AST 41 ALT 10 Alk Phos 140 Lipase 96 Procalcitonin 18 VBG 7.55/36/73/32 CT abdomen and pelvis from 09/03 and again on 09/05 reviewed as above Impression: Acute necrotizing pancreatitis Acute portal vein thrombosis Acute splenic vein thrombosis Alcohol dependence Hyponatremia Hypokalemia Plan: Neuro - pain control with PRN iv hydromorphone, pain consult, does not appear to be actively withdrawing and previously received phenobarbital, hold on standing benzo/barbituates CV - tachycardic, not in shock, lactate cleared to 0.8, volume overloaded with 3rd spacing, moderate + pleural effusions bilaterally Judicious iv fluids Would hold on diuretics at this time MAP goal is >65 Pulm - 2L NC, bilateral pleural effusion, chest splinting with high risk to develop pneumonia, not distressed GI 1. Acute necrotizing pancreatitis from alcohol use - check TG from admission labs, cautious fluids 2. Severe abdominal pain - at risk for developing abdominal compartment syndrome, consulted surgery, bladder pressure confounded by non-intubated/non-passive status but if intubated will measure 3. Acute portal and splenic vein thrombosis from pancreatic inflammation - resume heparin infusion, monitor anti-Xa per protocol 4. At risk for ischemic bowel, case d/w surgery, serial abdominal exams, pt has cleared lactate and has no current signs of shock 5. At risk for other complications of pancreatitis including infection, for now will walsh-culture patient, hold on abx; if needed would generally favor carbapenem 6. NPO Renal Hui, hypervolemic hyponatremia, hypokalemia (replete), judicious fluids, volume overloaded ID See above Endo Glucose checks Q4H Heme Trend CBC in particular platelet count, would be very early for HIT but closely monitor trend DVT ppx heparin infusion Full code Case d/w CLC, referring MD, surgery Dr. Lopes in detail CCT = 45 minutes excluding procedures for 09/08/2023. At high risk for further decompensation [facility] Work Phone: 09-08-2023 History and physical note Transferred from [facility] in [place] for acute necrotizing pancreatitis. See resident note separately for more granular review of outside hospital course. 28F significant daily alcohol use, presented to [facility] with abdominal pain, vomiting, found to have acute pancreatitis, had baseline ct scan to support this, elevated lipase. Pt was fluid resuscitated (unclear total ins). Did initially make a lactate of 7 which downtrended to 2 range. Tx'd for alcohol withdrawal with phenobarbital. Given lasix for volume overload in review of DC summary. Was in the ICU there for part of the admission. On 09/05, pt had ct abdomen and pelvis showing extensive pancreatic necrosis with replacement of pancreatic head by fluid, portal vein thrombosis and splenic vein thrombosis. Started on heparin at the referring institution. Pt transferred on 2L NC, no vasopressors. Reports severe abdominal and flank pain. Exam: 98.4 HR 119 130/75 98% 2L NC Appears acutely ill but not distressed Oral mucosa dry No scleral icterus Lungs diminished air entry bilaterally CV tachy, regular, S1, S2 Abd diffusely tender, soft, distended, non-rigid Ext warm, brisk cap refill to all fingers and toes, 2+ radial, PT/DP pulses Labs: WBC 10 HGB 9 PLT 83 Na 135 K 2.8 Scr 0.4 BUN <5 Ca 8.5 AST 41 ALT 10 Alk Phos 140 Lipase 96 Procalcitonin 18 VBG 7.55/36/73/32 CT abdomen and pelvis from 09/03 and again on 09/05 reviewed as above Impression: Acute necrotizing pancreatitis Acute portal vein thrombosis Acute splenic vein thrombosis Alcohol dependence Hyponatremia Hypokalemia Plan: Neuro - pain control with PRN iv hydromorphone, pain consult, does not appear to be actively withdrawing and previously received phenobarbital, hold on standing benzo/barbituates CV - tachycardic, not in shock, lactate cleared to 0.8, volume overloaded with 3rd spacing, moderate + pleural effusions bilaterally Judicious iv fluids Would hold on diuretics at this time MAP goal is >65 Pulm - 2L NC, bilateral pleural effusion, chest splinting with high risk to develop pneumonia, not distressed GI 1. Acute necrotizing pancreatitis from alcohol use - check TG from admission labs, cautious fluids 2. Severe abdominal pain - at risk for developing abdominal compartment syndrome, consulted surgery, bladder pressure confounded by non-intubated/non-passive status but if intubated will measure 3. Acute portal and splenic vein thrombosis from pancreatic inflammation - resume heparin infusion, monitor anti-Xa per protocol 4. At risk for ischemic bowel, case d/w surgery, serial abdominal exams, pt has cleared lactate and has no current signs of shock 5. At risk for other complications of pancreatitis including infection, for now will walsh-culture patient, hold on abx; if needed would generally favor carbapenem 6. NPO Renal Hui, hypervolemic hyponatremia, hypokalemia (replete), judicious fluids, volume overloaded ID See above Endo Glucose checks Q4H Heme Trend CBC in particular platelet count, would be very early for HIT but closely monitor trend DVT ppx heparin infusion Full code Case d/w CLC, referring , surgery Dr. Lopes in detail CCT = 45 minutes excluding procedures for 09/08/2023. At high risk for further decompensation Critical Care H&P Note Date of Consult: 09/08/2023 Patient's Primary Care Provider: Ibeth Lassiter MD Reason for Consultation: Necrotizing pancreatitis Admit Date: 09/07/2023 10:18 PM HPI / Subjective Chief Complaint: Necrotizing pancreatitis 28 yo F with PMHx of anxiety and alcohol use disorder transferred from [facility] for management of necrotizing pancreatitis. Patient was admitted at [facility] on 09/02 with co severe abdominal pain, nausea and vomiting. Her on admission CT was concerning for acute interstitial pancreatitis with possible early necrosis, hepatic steatosis, minimal free fluid within the pelvis. She was treated with IV LR 250/hr on day 1 and was reduced to 150cc/hr on day 2. On admission significant lab work up lipase of 275 and K+ 3.1, ethyl alcohol -164, lactic acid-7.2. Rest of the labs 09/02: Plt-438, Anion gap 19, bilirubin 0.4, AST - 31, ALT - 21, CRP- <0.04, Cr - 0.72, Utox negative of drugs Given high anion gap metabolic acidosis she was admitted to the ICU. - Lactic acid trend 7.7 --> 4.2-->3.1-->2.5 - Lipase trend --> 275 --> 523--->418-->283 - Cr trend --0.72-->0.54-->0.50 - Platelet trend -->438 --> 354-->106-->65 - Hb trend -->12.5-->8.9 - ABG on admission: 7.2/29/106/12 - WBC on admission: 02167 - Blood cultures - negative On day 4 of hospitalization patient was noted to be hypoxemic, had pulmonary edema on chest x ray, received few doses of IV lasix. Patient was also on phenobarbital protocol during the hospital stay for alcohol withdrawal. Repeat CT scan on 09/06 showed significant destruction of the pancreas replaced by fluid due to pancreatic necrosis. Most of the body and pancreatic head replaced by fluid. Also noted to have developing thrombosis of portal vein and splenic vein. Hence patient was transferred to [facility] for higher level of care. On admission vitals Temp 99.3, HR 112, RR 20, BP 133/78, SpO2 80% on room air. Labs significant for hypokalemia-2.8, procalcitonin 18.68, lactic acid - 0.8. Patient admitted to ICU for further management of necrotizing pancreatitis Social Hx: doesn't smoke, no h/o IV drug use, has been consuming alcohol 6-7 years, over the last one month drinking 8-9 nips of rum every day PHYSICAL EXAM: General examination: Patient is alert and oriented to time place and person, pallor present, no icterus, normal extraocular movements, normal pupillary reflex, no facial asymmetry noted, oral mucosa dry, no JVD, no carotid bruit, no thyromegaly Cardiovascular examination: S1-S2 heard, tachycardic, regular in rhythm, no lower extremity edema, no murmurs, no gallops Respiratory examination: Bilateral equal air entry, decreased breath sounds in the b/l lower lobes, not in respiratory distress, symmetric chest wall expansion Abdominal examination: Abdomen soft, diffuse tenderness present, flank tenderness present, bowel sounds present, no organomegaly on palpation Neurological examination: No focal neurological deficits present, upper and lower extremity strength 5/5, no sensory deficits present Assessment & Plan Principal Problem: Acute pancreatitis with infected necrosis, unspecified (POA: Yes) Resolved Problems: 28 yo F with PMHx of anxiety and alcohol use disorder transferred from [facility] for management of necrotizing pancreatitis. 1- Necrotizing pancreatitis 2- Hypokalemia 3- Thrombocytopenia 4- Splenic vein and portal vein thrombosis 5- Anemia 6- Pleural effusion 7- Sinus tachycardia 8- Alcohol use disorder Plan Neuro/psych #Alcohol use disorder - s/p phenobarb protocol at [facility] - Currently no signs of withdrawl - patient is alert and oriented to time place and person - No focal neurological deficits present Cardiovascular: # Sinus tachycardia Etiology: Could be secondary to severe abdominal pain - No other active cardiovascular issues present Resp: # Acute hypoxemic respiratory failure - Etiology: Secondary to pleural effusion - Currently on 2L NC Plan: - Can try IV lasix once electrolyte abnormalities are corrected ID: - Currently not suspecting any active infection - Pro calcitonin - 18.68. Low threshold for starting antibiotics given severe necrotizing pancreatitis. GI: # Necrotizing pancreatitis # Splenic vein and portal vein thrombosis Patient was admitted at [facility] on 09/02 with co severe abdominal pain, nausea and vomiting. Her on admission CT was concerning for acute interstitial pancreatitis with possible early necrosis, hepatic steatosis, minimal free fluid within the pelvis. She was treated with IV LR 250/hr on day 1 and was reduced to 150cc/hr on day 2. On admission significant lab work up lipase of 275 and K+ 3.1, ethyl alcohol -164, lactic acid-7.2. Rest of the labs 09/02: Plt-438, Anion gap 19, bilirubin 0.4, AST - 31, ALT - 21, CRP- <0.04, Cr - 0.72, Utox negative of drugs [facility] labs: Given high anion gap metabolic acidosis she was admitted to the ICU. - Lactic acid trend 7.7 --> 4.2-->3.1-->2.5 - Lipase trend --> 275 --> 523--->418-->283 - Cr trend --0.72-->0.54-->0.50 - Platelet trend -->438 --> 354-->106-->65 - Hb trend -->12.5-->8.9 - ABG on admission: 7.2/29/106/12 - WBC on admission: 85622 - Blood cultures - negative Current admission significant labs: hypokalemia-2.8, procalcitonin 18.68, lactic acid - 0.8. Plan: - Surgical consult pending - On heparin drip for splenic and portal vein thrombosis - IV thiamine 200 mg daily - Multivitamin and folic acid daily - Hui in place accurate urine output - FU blood cultures Renal: # Hypokalemia - s/p 50 meq K+ - BMP Q 12 hours Endo: - No active issues Other: Prophylaxis: -DVT - On heparin drip Code Status: Full code Objective Medications [email or web address]@ Allergies Allergen Reactions Codeine Anaphylaxis Oxycodone Anaphylaxis Penicillins Anaphylaxis Vitals: 09/07/23 2238 09/07/23 2239 09/08/23 0104 BP: 133/78 132/84 BP Location: Right arm Patient Position: Lying Pulse: (!) 112 (!) 121 Resp: 20 (!) 26 Temp: 99.3 ?F (37.4 ?C) 98.4 ?F (36.9 ?C) TempSrc: Oral Oral SpO2: (!) 80% 97% 95% Hemodynamic Parameters: Intake & Output: Date 09/07/23 1500 - 09/08/23 0659 09/08/23 0700 - 09/09/23 0659 Shift 9449-6579 4252-1841 24 Hour Total 4402-5184 4887-8215 6775-0403 24 Hour Total INTAKE IV Piggyback 100 100 Volume (mL) (potassium chloride IVPB 10 mEq in 100 mL SW (premix)) 100 100 Shift Total 100 100 OUTPUT Urine 150 150 Urine 150 150 Shift Total 150 150 NET -50 -50 Weight (kg) Current Ventilator/Noninvasive Ventilator/Oxygen Settings: Relevant data reviewed: Results from last 7 days Lab Units 09/07/23 2243 WHITE BLOOD CELL COUNT Thou/uL 10.2 HEMOGLOBIN g/dL 9.3* HEMATOCRIT % 27.7* PLATELET COUNT Thou/uL 83* IMMATURE GRANULOCYTES % 3.3 IMMATURE GRANULOCYTES ABSOLUTE Thou/uL 0.34* NEUTROS PCT % 69.1 NEUTROS ABS Thou/uL 7.01 LYMPHS PCT % 15.1 LYMPHS ABS Thou/uL 1.53 MONOS PCT % 11.1 MONOS ABS Thou/uL 1.13 EOS PCT % 0.9 EOS ABS Thou/uL 0.09 BASOS PCT % 0.5 BASOS ABS Thou/uL 0.05 arterial blood gases basic metabolic panel Imaging Studies: Shawn Bajwa MD 09/08/2023 2:05 AM Associated attestation - Fela Rodriguez MD - 09/08/2023 5:05 AM EDT Teaching Attending Attestation: I have seen and evaluated the patient and discussed case with the ICU team. Labs, imaging, and other data has been reviewed in detail. Please see my additional comments documented separately. documented in this encounter [facility] 09-08-2023 Consult note Associated Order (s): IP CONSULT TO GENERAL SURGERY SURGERY CONSULT Patient Name: Corrine Aguilar Patient Age: 28 y.o. Patient Gender: female Patient : 1995 Requesting Physician: Dr. Rodriguez Consulting Physician: Dr Lopes Reason for Consult: necrotizing pancreatitis Arrival Date:09/07/2023 10:18 PM Evaluation date & time: 09/08/23 320AM CHIEF COMPLAINT: abdominal pain x1 week HISTORY OF THE PRESENT ILLNESS: 28F Phx of ETOH use transferred here from [place] for necrotizing pancreatitis. She presented to [place] on 09/02 for severe abdominal pain, N/V. Was noted to have elevated lipase, ETOH level of 164, lactate of 7.2, metabolic acidosis on ABG. On HD#4 she deteriorated with hypoxia, pulmonary edema and alcohol withdrawal symptoms requiring phenobarbital. Repeat CT on 09/06 showed worsening pancreatitis necrosis and portal vein & splenic vein thromboses. Currently patient has diffuse abdominal pain. No N/V. States last BM was Sunday which is abnormal for her. Last drink was Sunday. Typically drinks 8 nips daily. No prior abdominal surgeries. PAST MEDICAL HISTORY: Past Medical History: Diagnosis Date Alcohol abuse Asthma SURGICAL HISTORY: No past surgical history on file. FAMILY HISTORY: No family history on file. SOCIAL HISTORY: Social History Tobacco Use Smoking Status Not on file Smokeless Tobacco Not on file Social History Substance and Sexual Activity Alcohol Use Yes Comment: 10-12 nips per day Social History Substance and Sexual Activity Drug Use Not on file MEDICATIONS: Current Facility-Administered Medications: bisacodyl (DULCOLAX) suppository 10 mg, 10 mg, Rectal, Daily PRN, Estefanía Burgos MD folic acid (FOLVITE) tablet 1 mg, 1 mg, Oral, Daily, Shawn Bajwa MD heparin (porcine) 1000 unit/mL injection 1,500 Units, 20 Units/kg, Intravenous, Q6H PRN, Shawn Bajwa MD heparin (porcine) 1000 unit/mL injection 2,200 Units, 30 Units/kg, Intravenous, Q6H PRN, Shawn Bajwa MD heparin (porcine) IV infusion 25,000 units in 500 mL 0.45% NaCl (premix), 15 Units/kg/hr, Intravenous, Continuous, Shawn Bajwa MD HYDROmorphone (DILAUDID) injection 0.2 mg, 0.2 mg, Intravenous, Q4H PRN, Estefanía Burgos MD, 0.2 mg at 09/08/23 0117 [Provider Held] lactated ringers with KCl 40 mEq/L (LR-KCL40) infusion, 100 mL/hr, Intravenous, Continuous, Shawn Bajwa MD, Stopped at 09/08/23 0249 lactulose (ENULOSE) 10 gm/15 mL solution 20 g, 30 mL, Oral, Q4H PRN, Estefanía Burgos MD multivitamin with minerals tablet 1 tablet, 1 tablet, Oral, Daily, Shawn Bajwa MD naloxone (NARCAN) 0.4 mg/mL injection 0.4 mg, 0.4 mg, Intravenous, Q5 Min PRN, Estefanía Burgos MD potassium chloride (KLOR-CON) packet 20 mEq, 20 mEq, Oral, Once, Shawn Bajwa MD senna-docusate (SENNA-S) 8.6-50 MG tablet 2 tablet, 2 tablet, Oral, Nightly, Estefanía Burgos MD thiamine (VITAMIN B-1) injection 200 mg, 200 mg, Intravenous, Daily, Estefanía Burgos MD ALLERGIES: Allergies Allergen Reactions Codeine Anaphylaxis Oxycodone Anaphylaxis Penicillins Anaphylaxis Objective VITAL SIGNS: (!) 109,Resp:19,BP:130/75,SpO2:98 %,Weight:73.3 kg (161 lb 9.6 oz) PHYSICAL EXAM: GENERAL: Alert and oriented x 3 in NAD HEENT: Normocephalic, atraumatic. PEERLA Mouth: Mucous membranes are moist Neck: FROM. Trachea midline. CARDIAC: Sinus tachycardia LUNGS: 2L NC. Decreased breath sounds at b/l bases. ABD/GI: Striae on abdomen. Abdomen full but compressible. Moderately distended without guarding or rebound. Bilateral flank tenderness. : hui draining clear yellow urine. MUSCULOSKELETAL: Moving all 4 extremities with equal strength and sensation. VASC: 2+ radial and DP pulses bilaterally SKIN: C/D/I NEURO: II - XII grossly intact DIAGNOSTIC DATA: White Blood Cell Count Date Value Ref Range Status 09/07/2023 10.2 4.0 - 11.0 Thou/uL Final Hemoglobin Date Value Ref Range Status 09/07/2023 9.3 (L) 11.7 - 15.7 g/dL Final Hematocrit Date Value Ref Range Status 09/07/2023 27.7 (L) 35.0 - 47.0 % Final Platelet Count Date Value Ref Range Status 09/07/2023 83 (L) 150 - 450 Thou/uL Final Lab Results Component Value Date NA 135 (L) 09/07/2023 K 2.8 (LL) 09/07/2023 CL 98 09/07/2023 CO2 30 09/07/2023 BUN CREAT 0.4 (L) 09/07/2023 GLUC 107 (H) 09/07/2023 Lab Results Component Value Date CALCIUM 8.5 (L) 09/07/2023 MG 1.9 09/07/2023 Lab Results Component Value Date AST 41 (H) 09/07/2023 ALT 10 09/07/2023 ALKPHOS 140 (H) 09/07/2023 BILITOT 1.0 09/07/2023 ALBUMIN 3.7 09/07/2023 PROT 5.7 09/07/2023 Lab Results Component Value Date COLORUA Yellow 09/07/2023 CLARITYUA Clear 09/07/2023 SPECGRAVUA 1.013 09/07/2023 PHUA 8.5 (H) 09/07/2023 PROTEINUA Small (30 mg/dL) (A) 09/07/2023 GLUCUA Negative 09/07/2023 KETONESUA Negative 09/07/2023 BLOODUA Large (A) 09/07/2023 NITRITEUA Negative 09/07/2023 LEUKOCYTESUA Negative 09/07/2023 BILIUA Negative 09/07/2023 ETHAN Archive for reference only CT This order has been auto-finalized and does not contain a result. ETHAN Archive for reference only CT This order has been auto-finalized and does not contain a result. ETHAN Archive for reference only CR This order has been auto-finalized and does not contain a result. Assessment & Plan Assessment: 28F transferred here for alcohol induced necrotizing pancreatitis an portal vein, splenic vein thromboses. She is tachycardic, and requiring 2L NC but BP is WNL. She has distended, full abdomen but it is still compressible. Diffuse tenderness but no harman peritoneal signs. Labs here significant for thrombocytopenia, hypokalemia and elevated procalcitonin. Lactate and renal function WNL. Imaging uploaded showing necrotizing pancreatitis with significant amount of abdominal free fluid. I see the protal vein and splenic vein thromboses. On my review, it appears there is also possibly a small non-occlusive clot in the proximal superior mesenteric vein? No evidence of bowel ischemia. Plan: Recommend heparin drip for thromboses Pt at risk for developing abdominal compartment syndrome and ischemic bowel. Will continue to follow along if patient deteriorates. Discussed with boiler coverer helper that if pt deteriorates and requires intubation, to measure bladder pressure while paralyzed. Will ask our radiology team to review and formally read the images. ID: elevated procalcitonin. Low threshold to start antibiotics. PULM: monitor respiratory status RENAL: Monitor renal function and urine output. PAIN/NAUSEA MANAGEMENT: Co-Morbidities: monitor for any further alcohol withdrawal DIET: recommend NPO, can have some ice chips ACTIVITY: ambulate LABS/DIAGNOSTICS: replete electrolytes Discussed with Dr. Lopes VTE Time Out IMPROVE SCORE: 2 (09/08/2023 2:03 AM) Interpretation - High Risk Chemical Prophylaxis heparin (porcine) IV infusion 25,000 units in 500 mL 0.45% NaCl (premix) Intravenous Continuous heparin (porcine) 1000 unit/mL injection 2,200 Units Intravenous Every 6 hours PRN heparin (porcine) 1000 unit/mL injection 1,500 Units Intravenous Every 6 hours PRN Mechanical Prophylaxis PRISCILLA Weston 09/08/2023 3:44 AM Associated attestation - Yin Lopes MD - 09/08/2023 6:21 AM EDT Attending: I have personally interviewed and examined the patient and I agree with CRAIG note and plan unless otherwise noted below. Pt with abdominal pain sincce Sunday. ETOH intake regularly. Last drink Sunday. No withdrawal. DX of alcoholic pancreatitis. Transferred here for management of necrotizing pancreatitis. On exam. Pt with abd pain . Blood pressure 135/76, pulse (!) 108, temperature 98.8 ?F (37.1 ?C), temperature source Oral, resp. rate 18, height 1.626 m (5' 4 ), weight 73.3 kg (161 lb 9.6 oz), SpO2 97%. Interactive. No oxygen requirement. Firm full abd. Some tympany. No nausea. Tender throughout and on flanks. Moves all four. Results from last 7 days Lab Units 09/08/23 0423 WHITE BLOOD CELL COUNT Thou/uL 9.4 HEMOGLOBIN g/dL 9.1* HEMATOCRIT % 27.2* PLATELET COUNT Thou/uL 86* IMMATURE GRANULOCYTES % 3.4 IMMATURE GRANULOCYTES ABSOLUTE Thou/uL 0.32* NEUTROS PCT % 70.9 NEUTROS ABS Thou/uL 6.65 LYMPHS PCT % 10.9 LYMPHS ABS Thou/uL 1.02* MONOS PCT % 13.1 MONOS ABS Thou/uL 1.23 EOS PCT % 1.1 EOS ABS Thou/uL 0.10 BASOS PCT % 0.6 BASOS ABS Thou/uL 0.06 Results from last 7 days Lab Units 09/08/23 0423 SODIUM mmol/L 134* POTASSIUM mmol/L 3.4 CHLORIDE mmol/L 99 CO2 mmol/L 29 BUN mg/dL CREATININE mg/dL 0.4* EGFR >90 GLUCOSE mg/dL 95 CALCIUM mg/dL 8.6* CT: Thromboses as noted in pa note. Necrotizing pancreatitis. A?P Necrotizing pancreatitis. Potential smv thrombis. Pt without pain out of proportion to exam. Anticoagulation. Sips. IVF> Pain control. Moniotr in icu. No emergent surgical intervention. [facility] 09-08-2023 History and physical note Critical Care H&P Note Date of Consult: 09/08/2023 Patient's Primary Care Provider: Ibeth Lassiter MD Reason for Consultation: Necrotizing pancreatitis Admit Date: 09/07/2023 10:18 PM HPI / Subjective Chief Complaint: Necrotizing pancreatitis 28 yo F with PMHx of anxiety and alcohol use disorder transferred from [facility] for management of necrotizing pancreatitis. Patient was admitted at [facility] on 09/02 with co severe abdominal pain, nausea and vomiting. Her on admission CT was concerning for acute interstitial pancreatitis with possible early necrosis, hepatic steatosis, minimal free fluid within the pelvis. She was treated with IV LR 250/hr on day 1 and was reduced to 150cc/hr on day 2. On admission significant lab work up lipase of 275 and K+ 3.1, ethyl alcohol -164, lactic acid-7.2. Rest of the labs 09/02: Plt-438, Anion gap 19, bilirubin 0.4, AST - 31, ALT - 21, CRP- Given high anion gap metabolic acidosis she was admitted to the ICU. - Lactic acid trend 7.7 --> 4.2-->3.1-->2.5 - Lipase trend --> 275 --> 523--->418-->283 - Cr trend --0.72-->0.54-->0.50 - Platelet trend -->438 --> 354-->106-->65 - Hb trend -->12.5-->8.9 - ABG on admission: 7.2//106/12 - WBC on admission: 98731 - Blood cultures - negative On day 4 of hospitalization patient was noted to be hypoxemic, had pulmonary edema on chest x ray, received few doses of IV lasix. Patient was also on phenobarbital protocol during the hospital stay for alcohol withdrawal. Repeat CT scan on 09/06 showed significant destruction of the pancreas replaced by fluid due to pancreatic necrosis. Most of the body and pancreatic head replaced by fluid. Also noted to have developing thrombosis of portal vein and splenic vein. Hence patient was transferred to [facility] for higher level of care. On admission vitals Temp 99.3, HR 112, RR 20, BP 133/78, SpO2 80% on room air. Labs significant for hypokalemia-2.8, procalcitonin 18.68, lactic acid - 0.8. Patient admitted to ICU for further management of necrotizing pancreatitis Social Hx: doesn't smoke, no h/o IV drug use, has been consuming alcohol 6-7 years, over the last one month drinking 8-9 nips of rum every day PHYSICAL EXAM: General examination: Patient is alert and oriented to time place and person, pallor present, no icterus, normal extraocular movements, normal pupillary reflex, no facial asymmetry noted, oral mucosa dry, no JVD, no carotid bruit, no thyromegaly Cardiovascular examination: S1-S2 heard, tachycardic, regular in rhythm, no lower extremity edema, no murmurs, no gallops Respiratory examination: Bilateral equal air entry, decreased breath sounds in the b/l lower lobes, not in respiratory distress, symmetric chest wall expansion Abdominal examination: Abdomen soft, diffuse tenderness present, flank tenderness present, bowel sounds present, no organomegaly on palpation Neurological examination: No focal neurological deficits present, upper and lower extremity strength 5/5, no sensory deficits present Assessment & Plan Principal Problem: Acute pancreatitis with infected necrosis, unspecified (POA: Yes) Resolved Problems: 28 yo F with PMHx of anxiety and alcohol use disorder transferred from [facility] for management of necrotizing pancreatitis. 1- Necrotizing pancreatitis 2- Hypokalemia 3- Thrombocytopenia 4- Splenic vein and portal vein thrombosis 5- Anemia 6- Pleural effusion 7- Sinus tachycardia 8- Alcohol use disorder Plan Neuro/psych #Alcohol use disorder - s/p phenobarb protocol at [facility] - Currently no signs of withdrawl - patient is alert and oriented to time place and person - No focal neurological deficits present Cardiovascular: # Sinus tachycardia Etiology: Could be secondary to severe abdominal pain - No other active cardiovascular issues present Resp: # Acute hypoxemic respiratory failure - Etiology: Secondary to pleural effusion - Currently on 2L NC Plan: - Can try IV lasix once electrolyte abnormalities are corrected ID: - Currently not suspecting any active infection - Pro calcitonin - 18.68. Low threshold for starting antibiotics given severe necrotizing pancreatitis. GI: # Necrotizing pancreatitis # Splenic vein and portal vein thrombosis Patient was admitted at [facility] on 09/02 with co severe abdominal pain, nausea and vomiting. Her on admission CT was concerning for acute interstitial pancreatitis with possible early necrosis, hepatic steatosis, minimal free fluid within the pelvis. She was treated with IV LR 250/hr on day 1 and was reduced to 150cc/hr on day 2. On admission significant lab work up lipase of 275 and K+ 3.1, ethyl alcohol -164, lactic acid-7.2. Rest of the labs 09/02: Plt-438, Anion gap 19, bilirubin 0.4, AST - 31, ALT - 21, CRP- [facility] labs: Given high anion gap metabolic acidosis she was admitted to the ICU. - Lactic acid trend 7.7 --> 4.2-->3.1-->2.5 - Lipase trend --> 275 --> 523--->418-->283 - Cr trend --0.72-->0.54-->0.50 - Platelet trend -->438 --> 354-->106-->65 - Hb trend -->12.5-->8.9 - ABG on admission: 7.2/29/106/12 - WBC on admission: 81374 - Blood cultures - negative Current admission significant labs: hypokalemia-2.8, procalcitonin 18.68, lactic acid - 0.8. Plan: - Surgical consult pending - On heparin drip for splenic and portal vein thrombosis - IV thiamine 200 mg daily - Multivitamin and folic acid daily - Hui in place accurate urine output - FU blood cultures Renal: # Hypokalemia - s/p 50 meq K+ - BMP Q 12 hours Endo: - No active issues Other: Prophylaxis: -DVT - On heparin drip Code Status: Full code Objective Medications [email or web address] [email or web address] Allergen Reactions Codeine Anaphylaxis Oxycodone Anaphylaxis Penicillins Anaphylaxis Vitals: 09/07/23 2238 09/07/23 2239 09/08/23 0104 BP: 133/78 132/84 BP Location: Right arm Patient Position: Lying Pulse: (!) 112 (!) 121 Resp: 20 (!) 26 Temp: 99.3 ?F (37.4 ?C) 98.4 ?F (36.9 ?C) TempSrc: Oral Oral SpO2: (!) 80% 97% 95% Hemodynamic Parameters: Intake & Output: Date 09/07/23 1500 - 09/08/23 0659 09/08/23 0700 - 09/09/23 0659 Shift 7477-2327 3422-8528 24 Hour Total 4821-9420 5295-7042 6888-2772 24 Hour Total INTAKE IV Piggyback 100 100 Volume (mL) (potassium chloride IVPB 10 mEq in 100 mL SW (premix)) 100 100 Shift Total 100 100 OUTPUT Urine 150 150 Urine 150 150 Shift Total 150 150 NET -50 -50 Weight (kg) Current Ventilator/Noninvasive Ventilator/Oxygen Settings: Relevant data reviewed: Results from last 7 days Lab Units 09/07/23 2243 WHITE BLOOD CELL COUNT Thou/uL 10.2 HEMOGLOBIN g/dL 9.3* HEMATOCRIT % 27.7* PLATELET COUNT Thou/uL 83* IMMATURE GRANULOCYTES % 3.3 IMMATURE GRANULOCYTES ABSOLUTE Thou/uL 0.34* NEUTROS PCT % 69.1 NEUTROS ABS Thou/uL 7.01 LYMPHS PCT % 15.1 LYMPHS ABS Thou/uL 1.53 MONOS PCT % 11.1 MONOS ABS Thou/uL 1.13 EOS PCT % 0.9 EOS ABS Thou/uL 0.09 BASOS PCT % 0.5 BASOS ABS Thou/uL 0.05 arterial blood gases basic metabolic panel Imaging Studies: Shawn Bajwa MD 09/08/2023 2:05 AM Associated attestation - Fela Rodriguez MD - 09/08/2023 5:05 AM EDT Teaching Attending Attestation: I have seen and evaluated the patient and discussed case with the ICU team. Labs, imaging, and other data has been reviewed in detail. Please see my additional comments documented separately. [employer] Work Phone: 09-08-2023 Emergency department Note S Situation Corrine Aguilar is a 28 y.o. female with a chief complaint of Necrotizing Pancreatitis Corrine Aguilar is being admitted to ICU with an admitting diagnosis of 1. Necrotizing pancreatitis . Covid PUI?: No Covid Test?: N/A Fall risk? YES Remote Telemetry?: Yes ALL PATIENTS BEING TRANSPORTED TO LEVEL 6 WITH A TELEMETRY ORDER NEED TO BE TRANSPORTED WITH AN RN AND ZOLL. OVERFLOW PATIENTS TO LEVEL 6 FOR NONTELEMTRY REASONS DO NOT NEED AN RN OR ZOLL FOR TRANSPORT. Cardiac rhythm: Normal Sinus Rhythm Sepsis work up initiated? NO. B Background Past Medical History: Corrine Aguilar has a past medical history of Alcohol abuse and Asthma. Past Surgical History: Corrine Aguilar has no past surgical history on file. Allergies: Corrine Aguilar is allergic to codeine, oxycodone, and penicillins. DNR on file? No Swallow Evaluation done prior to PO? N/A NIH Scale done? No Stated Reason for Visit: (S) ARIELLE from [facility] telemetry unit (accepted by MD Rodriguez in [facility] ICU to decide on pt's level of care) for necrotizing pancreatitis and developing thrombis of the portal vein. Pt has has been at [facility] since September 02 with c/o abdominal pain. History of alcoholism (for the last 2 months pt has been drinking 10-12 nips per day and blacking out). Denies SI/HI. Pt arrived on heparin which was DC'd in ED. PT awake, alert, oriented, c/o continued abdominal pain. Pt was receiving dilaudid q2 hours. A Assessment Vital Signs: Corrine Aguilar's oral temperature is 99.3 ?F (37.4 ?C). Her blood pressure is 133/78 and her pulse is 112 (abnormal). Her respiration is 20 and oxygen saturation is 97%. Activity: activity as tolerated Diet: NPO Hui: No IV: #22 Left Forearm Prehospital IV?: Yes O2: 2 liters/min via nasal cannula Isolation: None Precautions: none Radiology: ETHAN Archive for reference only CT Final Result ETHAN Archive for reference only CR Final Result XR Chest 1 view-Portable (Results Pending) Medications potassium chloride IVPB 10 mEq in 100 mL SW (premix) (10 mEq Intravenous New Bag 09/07/23 0222) Labs: Admission on 09/07/2023 Component Date Value Ref Range Status White Blood Cell Count 09/07/2023 10.2 4.0 - 11.0 Thou/uL Final Platelet Count 09/07/2023 83 (L) 150 - 450 Thou/uL Final Hemoglobin 09/07/2023 9.3 (L) 11.7 - 15.7 g/dL Final Hematocrit 09/07/2023 27.7 (L) 35.0 - 47.0 % Final Red Blood Cell Count 09/07/2023 3.04 (L) 4.00 - 5.40 Mil/uL Final MCV 09/07/2023 91 80 - 100 fL Final MCH 09/07/2023 30.6 26.0 - 34.0 pg Final MCHC 09/07/2023 33.6 30.0 - 36.0 g/dL Final RDW 09/07/2023 16.9 (H) 11.5 - 14.5 % Final MPV 09/07/2023 10.7 7.5 - 12.5 fL Final nRBC 09/07/2023 0.6 (H) 0.0 - 0.1 /100 WBC Final nRBC, Absolute 09/07/2023 0.06 (H) 0.00 - 0.02 Thou/uL Final Immature Platelet Fraction 09/07/2023 6.9 1.2 - 8.6 % Final Neutrophils Auto 09/07/2023 69.1 % Final Immature Granulocytes 09/07/2023 3.3 % Final Lymphocytes Auto 09/07/2023 15.1 % Final Monocytes Auto 09/07/2023 11.1 % Final Eosinophils Auto 09/07/2023 0.9 % Final Basophils Auto 09/07/2023 0.5 % Final Abs Neutrophils Auto 09/07/2023 7.01 2.00 - 7.50 Thou/uL Final Abs Immature Granulocytes 09/07/2023 0.34 (H) 0.00 - 0.10 Thou/uL Final Abs Lymphocytes Auto 09/07/2023 1.53 1.50 - 4.50 Thou/uL Final Abs Monocytes Auto 09/07/2023 1.13 0.20 - 1.50 Thou/uL Final Abs Eosinophils Auto 09/07/2023 0.09 0.00 - 0.70 Thou/uL Final Abs Basophils Auto 09/07/2023 0.05 0.00 - 0.20 Thou/uL Final Glucose 09/07/2023 107 (H) 74 - 106 mg/dL Corrected Blood Urea Nitrogen (BUN) 09/07/2023 Creatinine 09/07/2023 0.4 (L) 0.6 - 1.0 mg/dL Final eGFR 09/07/2023 >90 >59 Final Sodium 09/07/2023 135 (L) 136 - 145 mmol/L Final Potassium 09/07/2023 2.8 (LL) 3.4 - 4.5 mmol/L Final Chloride 09/07/2023 98 98 - 107 mmol/L Final CO2 09/07/2023 30 20 - 31 mmol/L Final Calcium 09/07/2023 8.5 (L) 8.7 - 10.5 mg/dL Final Alkaline Phosphatase 09/07/2023 140 (H) 32 - 122 U/L Final Aspartate Aminotrans (AST) 09/07/2023 41 (H) Alanine Aminotrans (ALT) 09/07/2023 10 7 - 35 U/L Final Bilirubin, Total 09/07/2023 1.0 0.3 - 1.2 mg/dL Final Protein, Total 09/07/2023 5.7 5.7 - 8.2 g/dL Final Albumin 09/07/2023 3.7 3.4 - 4.8 g/dL Final BUN/Creatinine Ratio 09/07/2023 Not calculated 10.0 - 25.0 Ratio Final Globulin 09/07/2023 2.0 1.5 - 3.9 g/dL Final Albumin/Globulin Ratio 09/07/2023 1.8 1.5 - 2.5 Ratio Final Anion Gap 09/07/2023 7 5 - 15 Final B-Type Natriuretic Peptide 09/07/2023 49 0 - 99 pg/mL Final Ventricular rate 09/07/2023 114 BPM Preliminary Atrial rate 09/07/2023 114 BPM Preliminary P-R interval 09/07/2023 128 ms Preliminary QRS duration 09/07/2023 82 ms Preliminary Q-T interval 09/07/2023 408 ms Preliminary QTC calculation (Bazett) 09/07/2023 562 ms Preliminary P axis 09/07/2023 41 degrees Preliminary R axis 09/07/2023 39 degrees Preliminary T axis 09/07/2023 -12 degrees Preliminary Troponin I, High Sensitivity 09/07/2023 7 Delta (HS Troponin I) 09/07/2023 NO PREVIOUS RESULT Final Lipase 09/07/2023 96 (H) 12 - 53 U/L Final Amylase 09/07/2023 90 30 - 118 U/L Final Lactic Acid 09/07/2023 0.8 0.5 - 1.9 mmol/L Final Color 09/07/2023 Yellow Final Clarity 09/07/2023 Clear Final Specific [place] 09/07/2023 1.013 1.003 - 1.030 Final pH 09/07/2023 8.5 (H) 5.0 - 8.0 Final Leukocyte Esterase 09/07/2023 Negative Negative Final Nitrite 09/07/2023 Negative Negative Final Protein 09/07/2023 Small (30 mg/dL) (A) Negative Final Glucose 09/07/2023 Negative 0 - 99 mg/dL Final Ketones 09/07/2023 Negative Negative Final Blood 09/07/2023 Large (A) Negative Final Urobilinogen 09/07/2023 1.0 0.2 - 1.0 EU/dL Final Bilirubin 09/07/2023 Negative Negative Final WBC 09/07/2023 2 0 - 4 per hpf Final RBC 09/07/2023 71 (H) 0 - 4 per hpf Final Bacteria 09/07/2023 Negative Negative Final Squamous Epithelial Cells 09/07/2023 3 per hpf Final Hyaline Casts 09/07/2023 0 0 - 4 per lpf Final Magnesium 09/07/2023 1.9 1.6 - 2.6 mg/dL Final Anticoagulant 09/07/2023 IV HEPARIN, UNFRACTIONATED, BEING HELD Final Prothrombin Time (PT) 09/07/2023 16.2 (H) 10.0 - 13.5 seconds Final INR 09/07/2023 1.4 Final Sample Type 09/07/2023 VENOUS Final Venous Blood PH 09/07/2023 7.55 Final Venous pCO2 09/07/2023 36 mmHG Final Venous pO2 09/07/2023 73 mmHG Final HCO3, Ash 09/07/2023 32.0 mmol/L Final O2 Saturation, Venous 09/07/2023 99.0 % Final Base Excess 09/07/2023 8.7 mmol/L Final Liter Flow, I-STAT 09/07/2023 2.0 Final Comment 09/07/2023 VENOUS Final ED Interventions/Updates: Pt transferred from ICU of outside hospital for inabilty to care for pt. Pt binge drinking for months post , now with abd swelling and necrotizing pancreatitis. Transferred for eval and workup. Was on heparin drip on arrival, then stopped, bolused with significant fluids then diuresed, now with hypo-K, getting repleted. Admission to unit for further treatment. R Recommendation Oustanding Tests/Medications/Labs: Pt stable for transport? Yes Nurse: Arben Wu RN Date: 09/08/2023 Time: 12:06 AM Phone: Arben Wu RN 09/08/23 0011 [facility] Work Phone: 09-08-2023 Emergency department Note S Situation Corrine Aguilar is a 28 y.o. female with a chief complaint of Necrotizing Pancreatitis Corrine Aguilar is being admitted to ICU with an admitting diagnosis of 1. Necrotizing pancreatitis . Covid PUI?: No Covid Test?: N/A Fall risk? YES Remote Telemetry?: Yes ALL PATIENTS BEING TRANSPORTED TO LEVEL 6 WITH A TELEMETRY ORDER NEED TO BE TRANSPORTED WITH AN RN AND ZOLL. OVERFLOW PATIENTS TO LEVEL 6 FOR NONTELEMTRY REASONS DO NOT NEED AN RN OR ZOLL FOR TRANSPORT. Cardiac rhythm: Normal Sinus Rhythm Sepsis work up initiated? NO. B Background Past Medical History: Corrine Aguilar has a past medical history of Alcohol abuse and Asthma. Past Surgical History: Corrine Aguilar has no past surgical history on file. Allergies: Corrine Aguilar is allergic to codeine, oxycodone, and penicillins. DNR on file? No Swallow Evaluation done prior to PO? N/A NIH Scale done? No Stated Reason for Visit: (S) CALEBA from [facility] telemetry unit (accepted by MD Rodriguez in [facility] ICU to decide on pt's level of care) for necrotizing pancreatitis and developing thrombis of the portal vein. Pt has has been at [facility] since September 02 with c/o abdominal pain. History of alcoholism (for the last 2 months pt has been drinking 10-12 nips per day and blacking out). Denies SI/HI. Pt arrived on heparin which was DC'd in ED. PT awake, alert, oriented, c/o continued abdominal pain. Pt was receiving dilaudid q2 hours. A Assessment Vital Signs: Corrine Aguilar's oral temperature is 99.3 ?F (37.4 ?C). Her blood pressure is 133/78 and her pulse is 112 (abnormal). Her respiration is 20 and oxygen saturation is 97%. Activity: activity as tolerated Diet: NPO Hui: No IV: #22 Left Forearm Prehospital IV?: Yes O2: 2 liters/min via nasal cannula Isolation: None Precautions: none Radiology: ETHAN Archive for reference only CT Final Result ETHAN Archive for reference only CR Final Result XR Chest 1 view-Portable (Results Pending) Medications potassium chloride IVPB 10 mEq in 100 mL SW (premix) (10 mEq Intravenous New Bag 09/07/23 6762) Labs: Admission on 09/07/2023 Component Date Value Ref Range Status White Blood Cell Count 09/07/2023 10.2 4.0 - 11.0 Thou/uL Final Platelet Count 09/07/2023 83 (L) 150 - 450 Thou/uL Final Hemoglobin 09/07/2023 9.3 (L) 11.7 - 15.7 g/dL Final Hematocrit 09/07/2023 27.7 (L) 35.0 - 47.0 % Final Red Blood Cell Count 09/07/2023 3.04 (L) 4.00 - 5.40 Mil/uL Final MCV 09/07/2023 91 80 - 100 fL Final MCH 09/07/2023 30.6 26.0 - 34.0 pg Final MCHC 09/07/2023 33.6 30.0 - 36.0 g/dL Final RDW 09/07/2023 16.9 (H) 11.5 - 14.5 % Final MPV 09/07/2023 10.7 7.5 - 12.5 fL Final nRBC 09/07/2023 0.6 (H) 0.0 - 0.1 /100 WBC Final nRBC, Absolute 09/07/2023 0.06 (H) 0.00 - 0.02 Thou/uL Final Immature Platelet Fraction 09/07/2023 6.9 1.2 - 8.6 % Final Neutrophils Auto 09/07/2023 69.1 % Final Immature Granulocytes 09/07/2023 3.3 % Final Lymphocytes Auto 09/07/2023 15.1 % Final Monocytes Auto 09/07/2023 11.1 % Final Eosinophils Auto 09/07/2023 0.9 % Final Basophils Auto 09/07/2023 0.5 % Final Abs Neutrophils Auto 09/07/2023 7.01 2.00 - 7.50 Thou/uL Final Abs Immature Granulocytes 09/07/2023 0.34 (H) 0.00 - 0.10 Thou/uL Final Abs Lymphocytes Auto 09/07/2023 1.53 1.50 - 4.50 Thou/uL Final Abs Monocytes Auto 09/07/2023 1.13 0.20 - 1.50 Thou/uL Final Abs Eosinophils Auto 09/07/2023 0.09 0.00 - 0.70 Thou/uL Final Abs Basophils Auto 09/07/2023 0.05 0.00 - 0.20 Thou/uL Final Glucose 09/07/2023 107 (H) 74 - 106 mg/dL Corrected Blood Urea Nitrogen (BUN) 09/07/2023 <5 (L) 9 - 23 mg/dL Final Creatinine 09/07/2023 0.4 (L) 0.6 - 1.0 mg/dL Final eGFR 09/07/2023 >90 >59 Final Sodium 09/07/2023 135 (L) 136 - 145 mmol/L Final Potassium 09/07/2023 2.8 (LL) 3.4 - 4.5 mmol/L Final Chloride 09/07/2023 98 98 - 107 mmol/L Final CO2 09/07/2023 30 20 - 31 mmol/L Final Calcium 09/07/2023 8.5 (L) 8.7 - 10.5 mg/dL Final Alkaline Phosphatase 09/07/2023 140 (H) 32 - 122 U/L Final Aspartate Aminotrans (AST) 09/07/2023 41 (H) <34 U/L Final Alanine Aminotrans (ALT) 09/07/2023 10 7 - 35 U/L Final Bilirubin, Total 09/07/2023 1.0 0.3 - 1.2 mg/dL Final Protein, Total 09/07/2023 5.7 5.7 - 8.2 g/dL Final Albumin 09/07/2023 3.7 3.4 - 4.8 g/dL Final BUN/Creatinine Ratio 09/07/2023 Not calculated 10.0 - 25.0 Ratio Final Globulin 09/07/2023 2.0 1.5 - 3.9 g/dL Final Albumin/Globulin Ratio 09/07/2023 1.8 1.5 - 2.5 Ratio Final Anion Gap 09/07/2023 7 5 - 15 Final B-Type Natriuretic Peptide 09/07/2023 49 0 - 99 pg/mL Final Ventricular rate 09/07/2023 114 BPM Preliminary Atrial rate 09/07/2023 114 BPM Preliminary P-R interval 09/07/2023 128 ms Preliminary QRS duration 09/07/2023 82 ms Preliminary Q-T interval 09/07/2023 408 ms Preliminary QTC calculation (Bazett) 09/07/2023 562 ms Preliminary P axis 09/07/2023 41 degrees Preliminary R axis 09/07/2023 39 degrees Preliminary T axis 09/07/2023 -12 degrees Preliminary Troponin I, High Sensitivity 09/07/2023 7 <34 ng/L Final Delta (HS Troponin I) 09/07/2023 NO PREVIOUS RESULT Final Lipase 09/07/2023 96 (H) 12 - 53 U/L Final Amylase 09/07/2023 90 30 - 118 U/L Final Lactic Acid 09/07/2023 0.8 0.5 - 1.9 mmol/L Final Color 09/07/2023 Yellow Final Clarity 09/07/2023 Clear Final Specific [place] 09/07/2023 1.013 1.003 - 1.030 Final pH 09/07/2023 8.5 (H) 5.0 - 8.0 Final Leukocyte Esterase 09/07/2023 Negative Negative Final Nitrite 09/07/2023 Negative Negative Final Protein 09/07/2023 Small (30 mg/dL) (A) Negative Final Glucose 09/07/2023 Negative 0 - 99 mg/dL Final Ketones 09/07/2023 Negative Negative Final Blood 09/07/2023 Large (A) Negative Final Urobilinogen 09/07/2023 1.0 0.2 - 1.0 EU/dL Final Bilirubin 09/07/2023 Negative Negative Final WBC 09/07/2023 2 0 - 4 per hpf Final RBC 09/07/2023 71 (H) 0 - 4 per hpf Final Bacteria 09/07/2023 Negative Negative Final Squamous Epithelial Cells 09/07/2023 3 per hpf Final Hyaline Casts 09/07/2023 0 0 - 4 per lpf Final Magnesium 09/07/2023 1.9 1.6 - 2.6 mg/dL Final Anticoagulant 09/07/2023 IV HEPARIN, UNFRACTIONATED, BEING HELD Final Prothrombin Time (PT) 09/07/2023 16.2 (H) 10.0 - 13.5 seconds Final INR 09/07/2023 1.4 Final Sample Type 09/07/2023 VENOUS Final Venous Blood PH 09/07/2023 7.55 Final Venous pCO2 09/07/2023 36 mmHG Final Venous pO2 09/07/2023 73 mmHG Final HCO3, Ash 09/07/2023 32.0 mmol/L Final O2 Saturation, Venous 09/07/2023 99.0 % Final Base Excess 09/07/2023 8.7 mmol/L Final Liter Flow, I-STAT 09/07/2023 2.0 Final Comment 09/07/2023 VENOUS Final ED Interventions/Updates: Pt transferred from ICU of outside hospital for inabilty to care for pt. Pt binge drinking for months post , now with abd swelling and necrotizing pancreatitis. Transferred for eval and workup. Was on heparin drip on arrival, then stopped, bolused with significant fluids then diuresed, now with hypo-K, getting repleted. Admission to unit for further treatment. R Recommendation Oustanding Tests/Medications/Labs: Pt stable for transport? Yes Nurse: Arben Wu RN Date: 09/08/2023 Time: 12:06 AM Phone: Arben Wu RN 09/08/23 0011 History Chief Complaint Patient presents with Necrotizing Pancreatitis HPI: Associated symptoms and Additional history: 28-year-old female who presents emergency department for evaluation of abdominal pain in the setting of recent diagnosis of necrotizing pancreatitis and portal vein thrombosis. Patient transferred from outside hospital on heparin drip, has been receiving antibiotics for alcoholic pancreatitis with suspected necrosis. Additional HPI Past Medical History: Diagnosis Date Alcohol abuse Asthma No past surgical history on file. No family history on file. Social History Substance Use Topics Alcohol use: Yes Comment: 10-12 nips per day Review of Systems Constitutional: Negative for chills and fever. HENT: Negative for postnasal drip, rhinorrhea and sore throat. Eyes: Negative for pain and visual disturbance. Respiratory: Negative for cough and shortness of breath. Cardiovascular: Negative for chest pain and palpitations. Gastrointestinal: Positive for abdominal pain. Negative for diarrhea, nausea and vomiting. Endocrine: Negative for polydipsia and polyuria. Genitourinary: Negative for dysuria and flank pain. Musculoskeletal: Negative for back pain and neck pain. Skin: Negative for pallor and rash. Neurological: Negative for dizziness and headaches. Psychiatric/Behavioral: Negative for confusion. Physical Exam BP 133/78 Pulse (!) 112 Temp 99.3 ?F (37.4 ?C) (Oral) Resp 20 SpO2 97% Physical Exam Vitals and nursing note reviewed. Constitutional: General: She is not in acute distress. Appearance: She is well-developed. HENT: Head: Normocephalic and atraumatic. Eyes: Conjunctiva/sclera: Conjunctivae normal. Pupils: Pupils are equal, round, and reactive to light. Neck: Vascular: No JVD. Trachea: No tracheal deviation. Cardiovascular: Rate and Rhythm: Normal rate and regular rhythm. Heart sounds: Normal heart sounds. No murmur heard. No friction rub. No gallop. Pulmonary: Effort: Pulmonary effort is normal. No respiratory distress. Breath sounds: Normal breath sounds. No wheezing or rales. Chest: Chest wall: No tenderness. Abdominal: General: Bowel sounds are normal. There is distension. Palpations: Abdomen is rigid. Tenderness: There is generalized abdominal tenderness. There is no guarding or rebound. Lower abdomen with lacy rash Musculoskeletal: General: No tenderness. Normal range of motion. Cervical back: Normal range of motion. Skin: General: Skin is warm and dry. Findings: No rash. Neurological: General: No focal deficit present. Mental Status: She is alert and oriented to person, place, and time. Psychiatric: Behavior: Behavior normal. ED Course Final diagnoses: None MDM: Number and Complexity of Problems Addressed MDM Detail: DDx: Necrotizing pancreatitis abdominal compartment syndrome less likely hypertriglyceridemia. Question of heparin-induced thrombocytopenia. 28-year-old female presents emergency department for evaluation of abdominal pain as a transfer from the outside hospital. Patient offers no acute complaints. Amount and Complexity of Data Records reviewed from external provider, facility, or healthcare organization: PCP visit 03/30/2023 History obtained from other source -see HPI for details: Medical Records Independent Interpretation of Diagnostic study by ED clinician: Laboratory Test, Radiology and EKG ekg independent visualization and interpreted by myself dictated below Discussion with Other Healthcare Provider: ICU attending Prescription Medication Management: Prescription Written to be Filled at Pharmacy, Administration of Prescription Strength Medication and Current Prescription Medications Reviewed and Continued Risk of Complications and/or Morbidity or Mortality of Patient Management Critical Care ECG Independent Visualization Date and Time Interpretation ECG Findings Previous ECG Reviewed Comparison to Electronic Interpretation User 09/07/232322 sinus tach 114 prolonged qt 562 no acute ischemic changes -- -- GRIFFIN Whiting MD 09/08/233 Critical potassium 2.8, MD aware. Hector Del Toro RN 09/07/232323 Report given to ED RN Arben Del Toro RN 09/07/23 5841 RT at bedside collecting VBG from this RN Hector Del Toro RN 09/07/23 133 Repeat labs pend, pt resting in bed, c/o abdominal pain, updated on POC. Hector Del Toro RN 09/07/23 411 Pt's o2 sat found to be 80% on room air, placed on 2L and now 97% Hector Del Toro RN 09/07/23 3951 documented in this encounter [facility] 09-07-2023 Physician Emergency department Note History Chief Complaint Patient presents with Necrotizing Pancreatitis HPI: Associated symptoms and Additional history: 28-year-old female who presents emergency department for evaluation of abdominal pain in the setting of recent diagnosis of necrotizing pancreatitis and portal vein thrombosis. Patient transferred from outside hospital on heparin drip, has been receiving antibiotics for alcoholic pancreatitis with suspected necrosis. Additional HPI Past Medical History: Diagnosis Date Alcohol abuse Asthma No past surgical history on file. No family history on file. Social History Substance Use Topics Alcohol use: Yes Comment: 10-12 nips per day Review of Systems Constitutional: Negative for chills and fever. HENT: Negative for postnasal drip, rhinorrhea and sore throat. Eyes: Negative for pain and visual disturbance. Respiratory: Negative for cough and shortness of breath. Cardiovascular: Negative for chest pain and palpitations. Gastrointestinal: Positive for abdominal pain. Negative for diarrhea, nausea and vomiting. Endocrine: Negative for polydipsia and polyuria. Genitourinary: Negative for dysuria and flank pain. Musculoskeletal: Negative for back pain and neck pain. Skin: Negative for pallor and rash. Neurological: Negative for dizziness and headaches. Psychiatric/Behavioral: Negative for confusion. Physical Exam BP 133/78 Pulse (!) 112 Temp 99.3 ?F (37.4 ?C) (Oral) Resp 20 SpO2 97% Physical Exam Vitals and nursing note reviewed. Constitutional: General: She is not in acute distress. Appearance: She is well-developed. HENT: Head: Normocephalic and atraumatic. Eyes: Conjunctiva/sclera: Conjunctivae normal. Pupils: Pupils are equal, round, and reactive to light. Neck: Vascular: No JVD. Trachea: No tracheal deviation. Cardiovascular: Rate and Rhythm: Normal rate and regular rhythm. Heart sounds: Normal heart sounds. No murmur heard. No friction rub. No gallop. Pulmonary: Effort: Pulmonary effort is normal. No respiratory distress. Breath sounds: Normal breath sounds. No wheezing or rales. Chest: Chest wall: No tenderness. Abdominal: General: Bowel sounds are normal. There is distension. Palpations: Abdomen is rigid. Tenderness: There is generalized abdominal tenderness. There is no guarding or rebound. Lower abdomen with lacy rash Musculoskeletal: General: No tenderness. Normal range of motion. Cervical back: Normal range of motion. Skin: General: Skin is warm and dry. Findings: No rash. Neurological: General: No focal deficit present. Mental Status: She is alert and oriented to person, place, and time. Psychiatric: Behavior: Behavior normal. ED Course Final diagnoses: None MDM: Number and Complexity of Problems Addressed MDM Detail: DDx: Necrotizing pancreatitis abdominal compartment syndrome less likely hypertriglyceridemia. Question of heparin-induced thrombocytopenia. 28-year-old female presents emergency department for evaluation of abdominal pain as a transfer from the outside hospital. Patient offers no acute complaints. Amount and Complexity of Data Records reviewed from external provider, facility, or healthcare organization: PCP visit 03/30/2023 History obtained from other source -see HPI for details: Medical Records Independent Interpretation of Diagnostic study by ED clinician: Laboratory Test, Radiology and EKG ekg independent visualization and interpreted by myself dictated below Discussion with Other Healthcare Provider: ICU attending Prescription Medication Management: Prescription Written to be Filled at Pharmacy, Administration of Prescription Strength Medication and Current Prescription Medications Reviewed and Continued Risk of Complications and/or Morbidity or Mortality of Patient Management Critical Care ECG Independent Visualization Date and Time Interpretation ECG Findings Previous ECG Reviewed Comparison to Electronic Interpretation User 09/07/232322 sinus tach 114 prolonged qt 562 no acute ischemic changes -- -- GRIFFIN Whiting MD 09/08/23 0043 [facility] 09-07-2023 Emergency department Note Critical potassium 2.8, aware. Hector Del Toro RN 09/07/232323 [facility] 09-07-2023 Emergency department Note Report given to ED RN Arben Del Toro RN 09/07/232310 [facility] 09-07-2023 Emergency department Note RT at bedside collecting VBG from this RN Hector Del Toro RN 09/07/232258 [facility] 09-07-2023 Emergency department Note Repeat labs pend, pt resting in bed, c/o abdominal pain, updated on POC. Hector Del Toro RN 09/07/232249 [facility] ED 09-07-2023 Emergency department Note Pt's o2 sat found to be 80% on room air, placed on 2L and now 97% Hector Del Toro RN 09/07/232238 [facility] ED Evaluation note Diagnosis Acute pancreatitis with infected necrosis, unspecified- Primary Necrotizing pancreatitis Acute pancreatitis Acute abdominal pain Abdominal pain, unspecified site Alcohol use disorder Acute thrombosis of splenic vein [facility] Reason Comments Necrotizing Pancreatitis * Auth/Cert (Routine) Specialty Diagnoses / Procedures Referred By Suman t Referred To Contact Diagnoses Acute pancreatitis with infected necrosis, unspecified Necrotizing Pancreatitis Procedures N/A Referral ID Status Reason Start Date Expiration Date Visits Re quested Visits Authorized [id number] 1 1 [facility] Advance Directives Date Activated Date Inactivated Comments 09/08/2023 12:13 AM Additional Source Comments Scheduled Active and Recently Administ ered Medications (unrecognized section and content) Medication Order 09/13/2023 09/14/2023 09/15/2023 enoxaparin (LOVENOX) syringe 70 mg 70 mg (rounded from 70.4 mg = 1 mg/kg 70.4 kg), Subcutaneous, Every 12 hours, First dose on Sun09/09/23 at 1100, Not for use in patients receiving dialysis., Indication for Anticoagulation: Other, Specify: Splenic and portal vein thrombosis, On hold since Sun09/14/2023 at 1550 until manually unheld 1045 (Given - Provider: Maria C Chavarria, RN)2224 (Given - Provider: Prisca Harmon, EL) 0943 (Given - Provider: Shobha Manning, EL)1550 (Provider Held - Provider: Madelyn Adames DO - Reason: Change in lab value)2300 (Not Given - Provider: Angela Kerns RN - Reason: See Provider Order) 1100 (Not Given - Provider: Ghazala Herron, EL - Reason: See Provider Order)2300 (Dose Auto Held - Provider: Madelyn Adames DO) folic acid (FOLVITE) tablet 1 mg 1 mg, Oral, Daily, First dose on 09/08/23 at 0900 0924 (Given - Provider: Maria C Chavarria, EL) 0944 (Given - Provider: Shobha Manning, EL) 0928 (Given - Provider: Ghazala Herron, EL) methocarbamol (ROBAXIN) tablet 1,000 mg 1,000 mg, Oral, 4 times daily, First dose (after last modification) on Linda 09/13/23 at 1300 1414 (Given - Provider: Shobha Toussaint, EL)1924 (Given - Provider: Rosa Mosqueda RN)2149 (Given - Provider: Prisca Harmon, EL) 0945 (Given - Provider: Shobha Manning RN)1331 (Given - Provider: Shobha Manning RN)1801 (Given - Provider: Shobha Manning RN)2106 (Given - Provider: Angela Kerns RN) 0928 (Given - Provider: Ghazala Herron, EL)1223 (Given - Provider: Ghazala Herron RN)1800 (Due)2200 (Due) methocarbamol (ROBAXIN) tablet 750 mg (CANCELED) 750 mg, Oral, 3 times daily, First dose on Sun09/10/23 at 0800 0924 (Given - Provider: Maria C Chavarria, EL) multivitamin with minerals tablet 1 tablet 1 tablet, Oral, Daily, First dose on Sun09/08/23 at 0900 0925 (Given - Provider: Maria C Chavarria RN) 0945 (Given - Provider: Shobha Manning RN) 0928 (Given - Provider: Ghazala Herron RN) polyethylene glycol (miraLAx) packet 17 g 17 g, Oral, Daily, First dose on Sun09/10/23 at 1030, Stir and dissolve in 4-8 oz of fluids. 0925 (Not Given - Provider: Maria C Chavarria RN - Reason: Patient/family refused) 0943 (Given - Provider: Shobha Manning RN) 0928 (Not Given - Provider: Ghazala Herron RN - Reason: Patient/family refused) potassium chloride (KLOR-CON M20) CR tablet 40 mEq (COMPLETED) 40 mEq, Oral, Once, On Sun09/13/23 at 0830, For 1 dose, Swallow tablets whole; do not crush, chew, or suck on tablet. Take with meals and a full glass of water or other liquid to minimize the risk of GI irritation. Swallow tablets whole; do not crush, chew, or suck on tablet. Take with meals and a full glass of water or other liquid to minimize the risk of GI irritation. 0926 (Given - Provider: Maria C Chavarria RN) pregabalin (LYRICA) capsule 100 mg 100 mg, Oral, 3 times daily, First dose (after last modification) on Sun09/13/23 at 1400 1414 (Given - Provider: Shobha Toussaint, EL)214 (Given - Provider: Prisca Harmon, EL) 0945 (Given - Provider: Shobha Manning, RN)133 (Given - Provider: Shobha Manning RN)2105 (Given - Provider: Angela Kerns RN) 0928 (Given - Provider: Ghazala Herron, RN)133 (Given - Provider: Ghazala Herron, EL)2200 (Due) pregabalin (LYRICA) capsule 75 mg (CANCELED) 75 mg, Oral, 2 times daily, First dose (after last modification) on 09/10/23 at 2100 0926 (Given - Provider: Maria C Chavarria RN) senna-docusate (SENNA-S) 8.6-50 MG tablet 2 tablet 2 tablet, Oral, Nightly, First dose on 09/08/23 at 2100, Hold for diarrhea 2148 (Given - Provider: Prisca Harmon RN) 2105 (Given - Provider: Angela Kerns RN) 2099 (Due) thiamine mononitrate (VITAMIN B-1) tablet 200 mg 200 mg, Oral, Daily, First dose on Linda 09/13/23 at 0900 0925 (Given - Provider: Maria C Chavarria RN) 0946 (Given - Provider: Shobha Manning RN) 0927 (Given - Provider: Ghazala Herron, EL) PRN Medication Order 09/13/2023 09/14/2023 09/15/2023 acetaminophen (TYLENOL) tablet 975 mg 975 mg, Oral, Every 8 hours PRN, mild pain 1-3, Starting on 09/10/23 at 0642 bisacodyl (DULCOLAX) suppository 10 mg 10 mg, Rectal, Daily PRN, constipation, if no bowel movement by day 2, Starting on 09/08/23 at 0010 calcium carbonate (TUMS) chewable tablet 500 mg 500 mg, Oral, 4 times daily PRN, indigestion, heartburn, Starting on 09/08/23 at 0512 0153 (Given - Provider: Rodrigo Rapp RN)1924 (Given - Provider: Rosa Mosqueda RN)2231 (Given - Provider: Prisca Harmon RN) 1007 (Given - Provider: Shobha Manning RN)2133 (Given - Provider: Angela Kerns RN) 1223 (Given - Provider: Ghazala Herron, EL) lactulose (ENULOSE) 10 gm/15 mL solution 20 g 20 g (30 mL), Oral, Every 4 hours PRN, constipation, if no bowel movment by day 3, Starting on Sun09/08/23 at 0010, Administer until bowel movement morphine (ROXANOL) 10 mg/5 mL solution 30 mg 30 mg, Oral, Every 4 hours PRN, moderate to moderately severe pain 4-6, severe to excruciating pain 7-10, Starting on Sun09/12/23 at 1121, For 168 hours, Hold for sedation, RR<10 0048 (Given - Provider: Rodrigo Rapp RN)0455 (Given - Provider: Rodrigo Rapp RN)0939 (Given - Provider: Rosa Mosqueda RN)1414 (Given - Provider: Shobha Toussaint RN)1956 (Given - Provider: Prisca Harmon, EL) 0946 (Given - Provider: Shobha Manning, EL)1510 (Given - Provider: Shobha Manning, EL)1921 (Given - Provider: Shobha Manning RN) 0027 (Given - Provider: Angela Kerns RN)0432 (Given - Provider: Angela Sandoval V, EL)0930 (Given - Provider: Ghazala Herron, EL) morphine preservative free 10 mg/mL injection 3 mg (CANCELED) 3 mg, Intravenous, Every 4 hours PRN, breakthrough pain, Starting on Sun09/12/23 at 1121, For 168 hours, Hold for sedation, RR<10 0622 (Given - Provider: Rodrigo Rapp RN)0806 (Provider Held - Provider: Shannon Mitchell MD - Reason: Other - Comment required)1205 (Provider Unheld - Provider: Madelyn Adames DO)1733 (Given - Provider: Rosa Mosqueda RN)2231 (Given - Provider: Prisca Harmon RN) 0600 (Given - Provider: Noeline A Quintin, RN) naloxone (NARCAN) 0.4 mg/mL injection 0.4 mg 0.4 mg, Intravenous, Every 5 min PRN, opioid reversal, respiratory depression, Starting on 09/08/23 at 0010, Notify provider if administered Care Teams (unrecognized sec tion and content) Documentation Writer Relationship Specialty Start Date End Date Ibeth Lassiter MD [address] [place] [address] PCP - General Family Medicine 09/07/23 This clinical document has been generated using [employer] software that has been certified by the Office of the National Coordinator for Health Information Technology (ONC 15.99.04.3023.Diam.31.00.0.390267) and the National Committee for Ux Visual Designer (NCQA, as an eMeasure certified technology). FOR RECORDS PERTAINING TO PATIENTS WHO ARE OR HAVE BEEN ENROLLED IN A CHEMICAL DEPENDENCY/SUBSTANCEABUSE PROGRAM, SOME INFORMATION MAY BE OMITTED. This clinical summary was aggregated from multiple sources. Caution should be exercised in using it in the provision of clinical care. This summary normalizes information from multiple sources, and as a consequence, information in this document may materially change the coding, format and clinical context of patient data. In addition, data may be omitted in some cases. CLINICAL DECISIONS SHOULD BE BASED ON THE PRIMARY CLINICAL RECORDS. [employer] provides no warranty or guarantee of the accuracy or completeness of information in this document.The following information is based on time limited clinical information
--- OUTSIDE RECORDS SUMMARY | 2024-06-06 16:38 | XMS_ITS ---
[facility] Organization [facility] [facility], [facility] Care Team Providers Care Fire Prevention Inspector Name Role Phone MADELYN ADAMES Unavailable Unavailable PARISA AMEZQUITA Unavailable Unavailable ERINTYANALILIA, CARLEE Unavailable Unavailable FELA RODRIGUEZ Unavailable Unavailabl e Unavailable Unavailable Unavailable VOLNEY, SHANNON LALITO Unavailable Unavailabl e VOLROS, SHANNON LALITO Unavailable Unavailabl e JAROCHO ABBASI Unavailable Unavailable WHITINGJESUSIRASEMA Unavailable Unavailable JAROCHO ABBASI Unavailable Unavailable FELA RODRIGUEZ Unavailable Unavailabl e TAMASDAN, CHERRY Unavailable Unavailable YIN LOPES Unavailable Unavailable KETTYLE, CARLEE Unavailable Unavailable MIQUEL PEÑA Unavailable Unavailable MADELYN HERNANDEZ Unavailable Unavailable MADELYN HERNANDEZ Unavailable Unavailable Ibeth Lassiter MD Primary Care Provider Allergies Allergy Classification Reported Allergen(s) Allergy Type Date of Onset Reaction(s) Care Provider Facility Opioid Agonists (20 sources) codeine Allergy to drug 09-07-19 24 Anaphylaxis Hector Del Toro RN Work Phone: [facility] Work Phone: Penicillins (antibiotic) (12 sources) Penicillins Allergy to drug 09-07-19 24 Anaphylaxis [facility] Unclassified (2 sources) ALLERGIES NOT ON FILE PARISA AMEZQUITA [facility] Encounters Encounter Date Encounter Type Encounter Diagnosis Care Pro vider Facility Start: 09-12-2023 12:00-0400 Evaluation and management of inpatient [facility] Start: 09-11-2023 12:00-0400 Evaluation and management of inpatient [facility] Start: 09-08-2023 12:00-0400 Evaluation and management of inpatient MADELYN HERNANDEZ [facility] Start: 09-07-2023 22:18-0400 Emergency department patient visit Necrotizing Pancreatitis JAROCHO WHITING [facility] Start: 09-07-2023 22:180400 End: 09-15-2023 14:090400 Evaluation and management of inpatient Acute pancreatitis with uninfected necrosis, unspecified MADELYN Abbasi MD Work Phone: Irasema Whiting MD Work Phone: Fela Rodriguez MD Work Phone: Miquel Peña MD Work Phone: Shannon Mitchell MD Work Phone: Madelyn Adames DO Work Phone: [facility] Comment on above: Necrotizing pancreatitis (Primary Dx); Acute abdominal pain [facility] Medications Current Medications Medication Drug [...] heartburn. docusate sodium 50 MG / sennosides, [facility]URSING HOME 8.6 MG Oral Tablet (2 sources) Start: [...] mg/mL injection 0.4 mg polyethylene glycol 3350 [id number] MG Powder for Oral Solution (3 sources) [...] Payers Date Payer Normalized Payer Policy ID [facility] [employer] 100 [id number] [facility] Plan of Treatment Date Care Activity Detail Author Start: 02-02-2023 COVID-19 Vaccine (1 - 2023-24 season) COVID-19 Vaccine ( season) [facility] Start: 01-02-2023 Administration of influenza vaccine Influenza Vaccine [facility] Start: 2016 Microscopic observat ion [Identifier] in Cervix by Cyto stain Pap Smear (Ages 21-65) [facility] Start: 2014 DTaP/Tdap/Td Vaccine s (1 - Tdap) DTaP/Tdap/Td Vaccines (1 - Tdap) [facility] Start: 2014 Hepatitis B Vaccines (1 of 3 - 19+ 3-dose series) Hepatitis B Vaccines (1 of 3 - 19+ 3-dose series) [facility] Start: 2008 HIV Screening HIV Screening [facility] Start: 2001 Pneumococcal Vaccine : Pediatric (0-5 Years) and At-Risk Patients (6 to 64 Years) (1 of 2 - PCV) Pneumococcal Vaccine: Pediatric (0-5 Years) and At-Risk Patients (6 to 64 Years) (1 of 2 - PCV) [facility] Start: 1995 Hepatitis C screening Hepatiti s C Virus Screening [facility] ETHAN Archive for refe rence only CR ETHAN Archive for reference only CR Imaging Routine 09/07/2023 until discontinued, 1 completed [facility] Comment on above: 09/07/2023 until dis continued, 1 completed [facility] for refe rence only CT ETH[facility] Archive for reference only CT Imaging Routine 09/07/2023 until discontinued, 1 completed [facility] Work Phone: Comment on above: 09/07/2023 until dis continued, 1 completed [facility] for refe rence only CT ETH[facility] Archive for reference only CT Imaging Routine 09/08/2023 until discontinued, 1 completed [facility] Comment on above: 09/08/2023 until dis continued, 1 completed End: 09-07-2023 Nasal Cannula (Supplemental Oxygen) Starting Rate: 2 LPM; Maximum Rate: 4 LPM; Maintain O2 Sat >/= (%): 90 Nasal Cannula (Supplemental Oxygen) Starting Rate: 2 LPM; Maximum Rate: 4 LPM; Maintain O2 Sat >/= (%): 90 Respiratory Care Routine Continuous until discontinued starting 09/07/2023 [facility] Comment on above: Continuous until dis continued [...] abdomen w/o & w/contrast material completed Shannon Mitchell MD Work Phone: Start: 09-12-2023 Basic metabolic [...] Start: 09-11-2023 Comprehensive metabolic panel completed Gaetano izaguirre MD Work Phone: Start: 09-11-2023 Magnesium [Mass/volume] [...] Urea nitrogen/Creat inine [Mass ratio] Not calculated [facility] 09-14 08:18 -0400 BUN/Creatinine Ratio Not calculated 10.0 - 25.0 Ratio 09/15/2023 8:18 AM [facility] Calcium [Mass/Vol] 9.0 mg/dL 8.7 - 10.5 mg/dL [facility] 09-14 08:18 -0400 Calcium 9.0 8.7 - 10.5 mg/dL 09/15/2023 8:18 AM [facility] Chloride [Moles/Vol] 104 mmol/L 98 - 107 mmol/L [facility] 09-14 08:18 -0400 Chloride 104 98 - 107 mmol/L 09/15/2023 8:18 AM [facility] CO2 [Moles/Vol] 25 mmol/L 20 - 31 mmol/L [facility] 09-14 08:18 0400 CO2 25 20 - 31 mmol/L 09/15/2023 8:18 AM [facility] Creatinine [Mass/Vol] 0.5 mg/dL Low 0.6 - 1.0 mg/dL [facility] 09-14 08:18 0400 Creatinine 0.5 (L) 0.6 - 1.0 mg/dL 09/15/2023 8:18 AM [facility] Glucose [Mass/Vol] 132 mg/dL High 74 - 106 mg/dL [facility] 09-14 08:18 0400 Glucose 132 (H) 74 - 106 mg/dL 09/15/2023 8:18 AM T [facility] Comment on above: Fasting: <100 mg/dL, Non-Fasting: <200 m g/dL (ADA 2005) Potassium [Moles/Vol] 3.9 mmol/L 3.4 - 4.5 mmol/L [facility] 09-14 08:18 0400 Potassium 3.9 3.4 - 4.5 mmol/L 09/15/2023 8:18 AM [facility] Sodium [Moles/Vol] 136 mmol/L 136 - 145 mmol/L [facility] 09-14 08:18 0400 Sodium 136 136 - 145 mmol/L 09/15/2023 8:18 AM [facility] Urea nitrogen [Mass/Vol] <5 >NINF mg/dL Low 9 - 23 mg/dL [facility] 09-14 08:18 0400 Blood Urea Nitrogen (BUN) <5 (L) 9 - 23 mg/dL 09/15/2023 8:18 AM [facility] GFR/1.73 sq M.predicted CKD-EPI (S/P/Bld) [Vol rate/Area] <PINF >90 59 - PINF [facility] 09-14 08:18 0400 eGFR >90 >59 09/15/2023 8:18 AM [facility] Comment on above: CKD-EPI (2020) in mL/min/1.73 sq meters. Anion gap (Bld) [Moles/Vol] 7 5 - 15 [facility] 09-14 08:18 -0400 Anion Gap 7 5 - 15 09/15/2023 8:18 AM T [facility] C-Reactive Proteinon 024 CRP [Mass/Vol] 14.30 mg/dL High NINF - 1.00 mg/dL [facility] 09-14 08:18 -0400 C-Reactive Protein 14.30 (H) <1.00 mg/dL 09/15/2023 8:18 AM [facility] COMPLETE BLOOD COUNT, WITHOU T DIFFERENTIALon 09-15-2023 RBC Auto (Bld) [#/Vol] 2.79 Low [facility] 09-14 07:26 -0400 Red Blood Cell Count 2.79 (L) 4.00 - 5.40 Mil/uL 09/15/2023 7:26 AM [facility] Hematocrit Auto (Bld) [Volume fraction] 25.9 % Low 35.0 - 47.0 % [facility] 09-14 07:26 -0400 Hematocrit 25.9 (L) 35.0 - 47.0 % 09/15/2023 7:26 AM [facility] Hemoglobin (Bld) [Mass/Vol] 8.0 g/dL Low 11.7 - 15.7 g/dL [facility] 09-14 07:26 -0400 Hemoglobin 8.0 (L) 11.7 - 15.7 g/dL 09/15/2023 7:26 AM T [facility] MCH Auto (RBC) [Entitic mass] 28.7 pg 26.0 - 34.0 pg [facility] 09-14 07:26 -0400 MCH 28.7 26.0 - 34.0 pg 09/15/2023 7:26 AM [facility] MCHC Auto (RBC) [Mass/Vol] 30.9 g/dL 30.0 - 36.0 g/dL [facility] 09-14 07:26 -0400 MCHC 30.9 30.0 - 36.0 g/dL 09/15/2023 7:26 AM T [facility] MCV Auto (RBC) [Entitic vol] 93 fL 80 - 100 fL [facility] 09-14 07:26 -0400 MCV 93 80 - 100 fL 09/15/2023 7:26 AM [facility] Nucleated RBC/100 WBC Auto (Bld) [Ratio] 0.3 High [facility] 09-14 07:26 -0400 nRBC 0.3 (H) 0.0 - 0.1 /100 WBC 09/15/2023 7:26 AM [facility] Platelet mean volume Auto (Bld) [Entitic vol] 11.4 fL 7.5 - 12.5 fL [facility] 09-14 07:26 -0400 MPV 11.4 7.5 - 12.5 fL 09/15/2023 7:26 AM [facility] Platelets Auto (Bld) [#/Vol] 394 [facility] 09-14 07:26 -0400 Platelet Count 394 150 - 450 Thou/uL 09/15/2023 7:26 AM [facility] Erythrocyte distribution width Auto (RBC) [Ratio] 18.1 % High 11.5 - 14.5 % [facility] 09-14 07:26 -0400 RDW 18.1 (H) 11.5 - 14.5 % 09/15/2023 7:26 AM [facility] WBC Auto (Bld) [#/Vol] 10.1 [facility] 09-14 07:26 -0400 White Blood Cell Count 10.1 4.0 - 11.0 Thou/uL 09/15/2023 7:26 AM [facility] Nucleated RBC Auto (Bld) [#/Vol] 0.03 High [facility] 09-14 07:26 -0400 nRBC, Absolute 0.03 (H) 0.00 - 0.02 Thou/uL 09/15/2023 7:26 AM [facility] Emergency Department (DEEDS) variableson 09-15-2023 Interpretation and review of laboratory results Abnormal [facility] 09-14 08:18 -0400 No Panel Informationon 09-14 [facility] 09-14 08:20 -0400 Type and Screenon 09-15-2023 ABO and Rh group (Bld) Blood group A Rh(D) negative [facility] 09-14 08:20 -0400 ABO/Rh A NEGATIVE 09/15/2023 8:20 AM [facility] Blood group antibody screen Ql Negative [facility] 09-14 08:20 -0400 Antibody Screen NEGATIVE 09/15/2023 8:20 AM [facility] Specimen Expiration 09/18/2023 [facility] 09-14 08:20 -0400 Specimen Expiration 09/18/2023 09/15/2023 8:20 AM [facility] Blood Bank Comment Second Sample needed for Blood Transfusion [facility] 09-14 08:20 -0400 Blood Bank Comment Second Sample needed for Blood Transfusion 09/15/2023 8:20 AM [facility] C-Reactive Proteinon 024 CRP [Mass/Vol] 19.60 mg/dL High NINF - 1.00 mg/dL [facility] 09-13 07:36 -0400 C-Reactive Protein 19.60 (H) <1.00 mg/dL 09/14/2023 7:36 AM [facility] Complete Blood Count, with D ifferentialon 09-14-2023 Basophils Auto (Bld) [#/Vol] 0.05 [facility] 09-13 06:55 -0400 Abs Basophils Auto 0.05 0.00 - 0.20 Thou/uL 09/14/2023 6:55 AM [facility] Basophils/100 WBC Auto (Bld) 0.3 % [facility] 09-13 06:55 -0400 Basophils Auto 0.3 % 09/14/2023 6:55 AM [facility] Eosinophils Auto (Bld) [#/Vol] 0.22 [facility] 09-13 06:55 -0400 Abs Eosinophils Auto 0.22 0.00 - 0.70 Thou/uL 09/14/2023 6:55 AM [facility] Eosinophils/10 0 WBC Auto (Bld) 1.5 % [facility] 09-13 06:55 -0400 Eosinophils Auto 1.5 % 09/14/2023 6:55 AM [facility] RBC Auto (Bld) [#/Vol] 2.76 Low [facility] 09-13 06:55 -0400 Red Blood Cell Count 2.76 (L) 4.00 - 5.40 Mil/uL 09/14/2023 6:55 AM T [facility] Hematocrit Auto (Bld) [Volume fraction] 26.0 % Low 35.0 - 47.0 % [facility] 09-13 06:55 -0400 Hematocrit 26.0 (L) 35.0 - 47.0 % 09/14/2023 6:55 AM [facility] Hemoglobin (Bld) [Mass/Vol] 8.1 g/dL Low 11.7 - 15.7 g/dL [facility] 09-13 06:55 -0400 Hemoglobin 8.1 (L) 11.7 - 15.7 g/dL 09/14/2023 6:55 AM [facility] Lymphocytes Auto (Bld) [#/Vol] 1.67 [facility] 09-13 06:55 -0400 Abs Lymphocytes Auto 1.67 1.50 - 4.50 Thou/uL 09/14/2023 6:55 AM [facility] Lymphocytes/10 0 WBC Auto (Bld) 11.5 % [facility] 09-13 06:55 -0400 Lymphocytes Auto 11.5 % 09/14/2023 6:55 AM [facility] MCH Auto (RBC) [Entitic mass] 29.3 pg 26.0 - 34.0 pg [facility] 09-13 06:55 -0400 MCH 29.3 26.0 - 34.0 pg 09/14/2023 6:55 AM [facility] MCHC Auto (RBC) [Mass/Vol] 31.2 g/dL 30.0 - 36.0 g/dL [facility] 09-13 06:55 -0400 MCHC 31.2 30.0 - 36.0 g/dL 09/14/2023 6:55 AM [facility] MCV Auto (RBC) [Entitic vol] 94 fL 80 - 100 fL [facility] 09-13 06:55 -0400 MCV 94 80 - 100 fL 09/14/2023 6:55 AM [facility] Monocytes Auto (Bld) [#/Vol] 0.79 [facility] 09-13 06:55 -0400 Abs Monocytes Auto 0.79 0.20 - 1.50 Thou/uL 09/14/2023 6:55 AM [facility] Monocytes/100 WBC Auto (Bld) 5.4 % [facility] 09-13 06:55 -0400 Monocytes Auto 5.4 % 09/14/2023 6:55 AM [facility] Neutrophils Auto (Bld) [#/Vol] 11.50 High [facility] 09-13 06:55 -0400 Abs Neutrophils Auto 11.50 (H) 2.00 - 7.50 Thou/uL 09/14/2023 6:55 AM [facility] Neutrophils/10 0 WBC Auto (Bld) 79.3 % [facility] 09-13 06:55 -0400 Neutrophils Auto 79.3 % 09/14/2023 6:55 AM [facility] Nucleated RBC/100 WBC Auto (Bld) [Ratio] 0.3 High [facility] 09-13 06:55 -0400 nRBC 0.3 (H) 0.0 - 0.1 /100 WBC 09/14/2023 6:55 AM [facility] Platelet mean volume Auto (Bld) [Entitic vol] 11.1 fL 7.5 - 12.5 fL [facility] 09-13 06:55 -0400 MPV 11.1 7.5 - 12.5 fL 09/14/2023 6:55 AM [facility] Platelets Auto (Bld) [#/Vol] 448 [facility] 09-13 06:55 -0400 Platelet Count 448 150 - 450 Thou/uL 09/14/2023 6:55 AM [facility] Erythrocyte distribution width Auto (RBC) [Ratio] 18.3 % High 11.5 - 14.5 % [facility] 09-13 06:55 -0400 RDW 18.3 (H) 11.5 - 14.5 % 09/14/2023 6:55 AM [facility] WBC Auto (Bld) [#/Vol] 14.5 High [facility] 09-13 06:55 -0400 White Blood Cell Count 14.5 (H) 4.0 - 11.0 Thou/uL 09/14/2023 6:55 AM T [facility] Nucleated RBC Auto (Bld) [#/Vol] 0.04 High [facility] 09-13 06:55 -0400 nRBC, Absolute 0.04 (H) 0.00 - 0.02 Thou/uL 09/14/2023 6:55 AM [facility] Immature granulocytes/1 00 WBC Auto (Bld) 2.0 % [facility] 09-13 06:55 -0400 Immature Granulocytes 2.0 % 09/14/2023 6:55 AM [facility] Immature granulocytes Auto (Bld) [#/Vol] 0.29 High [facility] 09-13 06:55 -0400 Abs Immature Granulocytes 0.29 (H) 0.00 - 0.10 Thou/uL 09/14/2023 6:55 AM [facility] Comprehensive Metabolic Pane tammie 09-14-2023 ALT [Catalytic activity/Vol] 75 U/L High 7 - 35 U/L [facility] 09-13 07:36 -0400 Alanine Aminotrans (ALT) 75 (H) 7 - 35 U/L 09/14/2023 7:36 AM T [facility] Albumin [Mass/Vol] 3.9 g/dL 3.4 - 4.8 g/dL [facility] 09-13 07:36 -0400 Albumin 3.9 3.4 - 4.8 g/dL 09/14/2023 7:36 AM [facility] ALP [Catalytic activity/Vol] 189 U/L High 32 - 122 U/L [facility] 09-13 07:36 -0400 Alkaline Phosphatase 189 (H) 32 - 122 U/L 09/14/2023 7:36 AM T [facility] AST [Catalytic activity/Vol] 95 U/L High NINF - 34 U/L [facility] 09-13 07:36 -0400 Aspartate Aminotrans (AST) 95 (H) <34 U/L 09/14/2023 7:36 AM [facility] Bilirubin [Mass/Vol] 0.5 mg/dL 0.3 - 1.2 mg/dL [facility] 09-13 07:36 -0400 Bilirubin, Total 0.5 0.3 - 1.2 mg/dL 09/14/2023 7:36 AM T [facility] Urea nitrogen/Creat inine [Mass ratio] Not calculated [facility] 09-13 07:36 -0400 BUN/Creatinine Ratio Not calculated 10.0 - 25.0 Ratio 09/14/2023 7:36 AM T [facility] Calcium [Mass/Vol] 8.6 mg/dL Low 8.7 - 10.5 mg/dL [facility] 09-13 07:36 -0400 Calcium 8.6 (L) 8.7 - 10.5 mg/dL 09/14/2023 7:36 AM T [facility] Chloride [Moles/Vol] 103 mmol/L 98 - 107 mmol/L [facility] 09-13 07:36 -0400 Chloride 103 98 - 107 mmol/L 09/14/2023 7:36 AM [facility] CO2 [Moles/Vol] 28 mmol/L 20 - 31 mmol/L [facility] 09-13 07:36 -0400 CO2 28 20 - 31 mmol/L 09/14/2023 7:36 AM [facility] Creatinine [Mass/Vol] 0.5 mg/dL Low 0.6 - 1.0 mg/dL [facility] 09-13 07:36 -0400 Creatinine 0.5 (L) 0.6 - 1.0 mg/dL 09/14/2023 7:36 AM T [facility] Glucose [Mass/Vol] 132 mg/dL High 74 - 106 mg/dL [facility] 09-13 07:36 -0400 Glucose 132 (H) 74 - 106 mg/dL 09/14/2023 7:36 AM T [facility] Comment on above: Fasting: <100 mg/dL, Non-Fasting: <200 m g/dL (ADA 2005) Potassium [Moles/Vol] 4.0 mmol/L 3.4 - 4.5 mmol/L [facility] 09-13 07:36 -0400 Potassium 4.0 3.4 - 4.5 mmol/L 09/14/2023 7:36 AM [facility] Protein [Mass/Vol] 6.6 g/dL 5.7 - 8.2 g/dL [facility] 09-13 07:36 -0400 Protein, Total 6.6 5.7 - 8.2 g/dL 09/14/2023 7:36 AM [facility] Sodium [Moles/Vol] 136 mmol/L 136 - 145 mmol/L [facility] 09-13 07:36 -0400 Sodium 136 136 - 145 mmol/L 09/14/2023 7:36 AM [facility] Urea nitrogen [Mass/Vol] <5 >NINF mg/dL Low 9 - 23 mg/dL [facility] 09-13 07:36 -0400 Blood Urea Nitrogen (BUN) <5 (L) 9 - 23 mg/dL 09/14/2023 7:36 AM [facility] GFR/1.73 sq M.predicted CKD-EPI (S/P/Bld) [Vol rate/Area] <PINF >90 59 - PINF [facility] 09-13 07:36 -0400 eGFR >90 >59 09/14/2023 7:36 AM [facility] Comment on above: CKD-EPI (2020) in mL/min/1.73 sq meters. Globulin Calc (S) [Mass/Vol] 2.7 g/dL 1.5 - 3.9 g/dL [facility] 09-13 07:36 -0400 Globulin 2.7 1.5 - 3.9 g/dL 09/14/2023 7:36 AM [facility] Albumin/Globul in [Mass ratio] 1.4 Low [facility] 09-13 07:36 -0400 Albumin/Globuli n Ratio 1.4 (L) 1.5 - 2.5 Ratio 09/14/2023 7:36 AM [facility] Anion gap (Bld) [Moles/Vol] 5 5 - 15 [facility] 09-13 07:36 -0400 Anion Gap 5 5 - 15 09/14/2023 7:36 AM [facility] Emergency Department (DEEDS) variableson 09-14-2023 Interpretation and review of laboratory results Abnormal [facility] 09-13 07:36 -0400 No Panel Informationon 09-13 [facility] 09-13 07:36 -0400 Basic Metabolic Panel (AM)on 09-13-2023 Urea nitrogen/Creat inine [Mass ratio] Not calculated [facility] 09-12 06:57 -0400 BUN/Creatinine Ratio Not calculated 10.0 - 25.0 Ratio 09/13/2023 6:57 AM [facility] Calcium [Mass/Vol] 8.7 mg/dL 8.7 - 10.5 mg/dL [facility] 09-12 06:57 -0400 Calcium 8.7 8.7 - 10.5 mg/dL 09/13/2023 6:57 AM [facility] Chloride [Moles/Vol] 102 mmol/L 98 - 107 mmol/L [facility] 09-12 06:57 -0400 Chloride 102 98 - 107 mmol/L 09/13/2023 6:57 AM [facility] CO2 [Moles/Vol] 27 mmol/L 20 - 31 mmol/L [facility] 09-12 06:57 -0400 CO2 27 20 - 31 mmol/L 09/13/2023 6:57 AM [facility] Creatinine [Mass/Vol] 0.5 mg/dL Low 0.6 - 1.0 mg/dL [facility] 09-12 06:57 -0400 Creatinine 0.5 (L) 0.6 - 1.0 mg/dL 09/13/2023 6:57 AM T [facility] Glucose [Mass/Vol] 134 mg/dL High 74 - 106 mg/dL [facility] 09-12 06:57 -0400 Glucose 134 (H) 74 - 106 mg/dL 09/13/2023 6:57 AM T [facility] Comment on above: Fasting: <100 mg/dL, Non-Fasting: <200 m g/dL (ADA 2005) Potassium [Moles/Vol] 3.3 mmol/L Low 3.4 - 4.5 mmol/L [facility] 09-12 06:57 -0400 Potassium 3.3 (L) 3.4 - 4.5 mmol/L 09/13/2023 6:57 AM [facility] Sodium [Moles/Vol] 136 mmol/L 136 - 145 mmol/L [facility] 09-12 06:57 -0400 Sodium 136 136 - 145 mmol/L 09/13/2023 6:57 AM [facility] Urea nitrogen [Mass/Vol] <5 >NINF mg/dL Low 9 - 23 mg/dL [facility] 04-11 -2024 06:57 -0400 Blood Urea Nitrogen (BUN) <5 (L) 9 - 23 mg/dL 09/13/2023 6:57 AM [facility] GFR/1.73 sq M.predicted CKD-EPI (S/P/Bld) [Vol rate/Area] <PINF >90 59 - PINF [facility] 09-12 06:57 -0400 eGFR >90 >59 09/13/2023 6:57 AM [facility] Comment on above: CKD-EPI (2020) in mL/min/1.73 sq meters. Anion gap (Bld) [Moles/Vol] 7 5 - 15 [facility] 09-12 06:57 -0400 Anion Gap 7 5 - 15 09/13/2023 6:57 AM [facility] C-Reactive Proteinon 024 CRP [Mass/Vol] 23.50 mg/dL High NINF - 1.00 mg/dL [facility] 09-12 06:57 -0400 C-Reactive Protein 23.50 (H) <1.00 mg/dL 09/13/2023 6:57 AM [facility] Complete Blood Count, with D ifferential (AM)on 09-13-2023 Basophils Auto (Bld) [#/Vol] 0.07 [facility] 09-12 06:45 -0400 Abs Basophils Auto 0.07 0.00 - 0.20 Thou/uL 09/13/2023 6:45 AM [facility]T [facility] Basophils/100 WBC Auto (Bld) 0.4 % [facility] 09-12 06:45 -0400 Basophils Auto 0.4 % 09/13/2023 6:45 AM [facility] Eosinophils Auto (Bld) [#/Vol] 0.25 [facility] 09-12 06:45 -0400 Abs Eosinophils Auto 0.25 0.00 - 0.70 Thou/uL 09/13/2023 6:45 AM [facility]T [facility] Eosinophils/10 0 WBC Auto (Bld) 1.5 % [facility] 09-12 06:45 -0400 Eosinophils Auto 1.5 % 09/13/2023 6:45 AM [facility] RBC Auto (Bld) [#/Vol] 2.92 Low [facility] 09-12 06:45 -0400 Red Blood Cell Count 2.92 (L) 4.00 - 5.40 Mil/uL 09/13/2023 6:45 AM [facility]T [facility] Hematocrit Auto (Bld) [Volume fraction] 27.4 % Low 35.0 - 47.0 % [facility] 09-12 06:45 -0400 Hematocrit 27.4 (L) 35.0 - 47.0 % 09/13/2023 6:45 AM [facility] Hemoglobin (Bld) [Mass/Vol] 8.5 g/dL Low 11.7 - 15.7 g/dL [facility] 09-12 06:45 -0400 Hemoglobin 8.5 (L) 11.7 - 15.7 g/dL 09/13/2023 6:45 AM [facility] Lymphocytes Auto (Bld) [#/Vol] 2.35 [facility] 09-12 06:45 -0400 Abs Lymphocytes Auto 2.35 1.50 - 4.50 Thou/uL 09/13/2023 6:45 AM [facility]T [facility] Lymphocytes/10 0 WBC Auto (Bld) 14.4 % [facility] 09-12 06:45 -0400 Lymphocytes Auto 14.4 % 09/13/2023 6:45 AM EDT [facility] MCH Auto (RBC) [Entitic mass] 29.1 pg 26.0 - 34.0 pg [facility] 09-12 06:45 -0400 MCH 29.1 26.0 - 34.0 pg 09/13/2023 6:45 AM EDT [facility] MCHC Auto (RBC) [Mass/Vol] 31.0 g/dL 30.0 - 36.0 g/dL [facility] 09-12 06:45 -0400 MCHC 31.0 30.0 - 36.0 g/dL 09/13/2023 6:45 AM EDT [facility] MCV Auto (RBC) [Entitic vol] 94 fL 80 - 100 fL [facility] 09-12 06:45 -0400 MCV 94 80 - 100 fL 09/13/2023 6:45 AM EDT [facility] Monocytes Auto (Bld) [#/Vol] 1.05 [facility] 09-12 06:45 -0400 Abs Monocytes Auto 1.05 0.20 - 1.50 Thou/uL 09/13/2023 6:45 AM EDT [facility] Monocytes/100 WBC Auto (Bld) 6.4 % [facility] 09-12 06:45 -0400 Monocytes Auto 6.4 % 09/13/2023 6:45 AM EDT [facility] Neutrophils Auto (Bld) [#/Vol] 12.07 High [facility] 09-12 06:45 -0400 Abs Neutrophils Auto 12.07 (H) 2.00 - 7.50 Thou/uL 09/13/2023 6:45 AM EDT [facility] Neutrophils/10 0 WBC Auto (Bld) 74.2 % [facility] 09-12 06:45 -0400 Neutrophils Auto 74.2 % 09/13/2023 6:45 AM EDT [facility] Nucleated RBC/100 WBC Auto (Bld) [Ratio] 0.4 High [facility] 09-12 06:45 -0400 nRBC 0.4 (H) 0.0 - 0.1 /100 WBC 09/13/2023 6:45 AM EDT [facility] Platelet mean volume Auto (Bld) [Entitic vol] 11.2 fL 7.5 - 12.5 fL [facility] 09-12 06:45 -0400 MPV 11.2 7.5 - 12.5 fL 09/13/2023 6:45 AM EDT [facility] Platelets Auto (Bld) [#/Vol] 485 High [facility] 09-12 06:45 -0400 Platelet Count 485 (H) 150 - 450 Thou/uL 09/13/2023 6:45 AM EDT [facility] [facility] Erythrocyte distribution width Auto (RBC) [Ratio] 18.0 % High 11.5 - 14.5 % [facility] 09-12 06:45 -0400 RDW 18.0 (H) 11.5 - 14.5 % 09/13/2023 6:45 AM EDT [facility] WBC Auto (Bld) [#/Vol] 16.3 High [facility] 09-12 06:45 -0400 White Blood Cell Count 16.3 (H) 4.0 - 11.0 Thou/uL 09/13/2023 6:45 AM EDT [facility] Nucleated RBC Auto (Bld) [#/Vol] 0.06 High [facility] 09-12 06:45 -0400 nRBC, Absolute 0.06 (H) 0.00 - 0.02 Thou/uL 09/13/2023 6:45 AM EDT [facility] Immature granulocytes/1 00 WBC Auto (Bld) 3.1 % [facility] 09-12 06:45 -0400 Immature Granulocytes 3.1 % 09/13/2023 6:45 AM EDT [facility] Immature granulocytes Auto (Bld) [#/Vol] 0.50 High [facility] 09-12 06:45 -0400 Abs Immature Granulocytes 0.50 (H) 0.00 - 0.10 Thou/uL 09/13/2023 6:45 AM EDT [facility] Emergency Department (DEEDS) variableson 09-13-2023 Interpretation and review of laboratory results Abnormal [facility] 09-12 06:57 -0400 No Panel Informationon 09-12 [facility] 09-12 06:57 -0400 BASIC METABOLIC PANELon 09-02 Urea nitrogen/Creat inine [Mass ratio] Not calculated [facility] 09-11 08:26 -0400 BUN/Creatinine Ratio Not calculated 10.0 - 25.0 Ratio 09/12/2023 8:26 AM EDT [facility] Calcium [Mass/Vol] 8.4 mg/dL Low 8.7 - 10.5 mg/dL [facility] 09-11 08:0400 Calcium 8.4 (L) 8.7 - 10.5 mg/dL 09/12/2023 8:26 AM T [facility] Chloride [Moles/Vol] 103 mmol/L 98 - 107 mmol/L [facility] 09-11 08:26 0400 Chloride 103 98 - 107 mmol/L 09/12/2023 8:26 AM T [facility] CO2 [Moles/Vol] 26 mmol/L 20 - 31 mmol/L [facility] 09-11 08:0400 CO2 26 20 - 31 mmol/L 09/12/2023 8:26 AM [facility] Creatinine [Mass/Vol] 0.4 mg/dL Low 0.6 - 1.0 mg/dL [facility] 09-11 08:0400 Creatinine 0.4 (L) 0.6 - 1.0 mg/dL 09/12/2023 8:26 AM [facility] Glucose [Mass/Vol] 127 mg/dL High 74 - 106 mg/dL [facility] 09-11 08:26 0400 Glucose 127 (H) 74 - 106 mg/dL 09/12/2023 8:26 AM [facility] Comment on above: Fasting: <100 mg/dL, Non-Fasting: <200 m g/dL (ADA 2005) Potassium [Moles/Vol] 3.5 mmol/L 3.4 - 4.5 mmol/L [facility] 09-11 08:26 0400 Potassium 3.5 3.4 - 4.5 mmol/L 09/12/2023 8:26 AM T [facility] Sodium [Moles/Vol] 136 mmol/L 136 - 145 mmol/L [facility] 09-11 08:0400 Sodium 136 136 - 145 mmol/L 09/12/2023 8:26 AM T [facility] Urea nitrogen [Mass/Vol] <5 >NINF mg/dL Low 9 - 23 mg/dL [facility] 09-11 08:26 -0400 Blood Urea Nitrogen (BUN) <5 (L) 9 - 23 mg/dL 09/12/2023 8:26 AM EDT [facility] GFR/1.73 sq M.predicted CKD-EPI (S/P/Bld) [Vol rate/Area] <PINF >90 59 - PINF [facility] 09-11 08:26 -0400 eGFR >90 >59 09/12/2023 8:26 AM EDT [facility] Comment on above: CKD-EPI (2020) in mL/min/1.73 sq meters. Anion gap (Bld) [Moles/Vol] 6 5 - 15 [facility] 09-11 08:26 -0400 Anion Gap 6 5 - 15 09/12/2023 8:26 AM EDT [facility] C-Reactive Proteinon 024 CRP [Mass/Vol] 25.00 mg/dL High NINF - 1.00 mg/dL [facility] 09-11 07:51 -0400 C-Reactive Protein 25.00 (H) <1.00 mg/dL 09/12/2023 7:51 AM EDT [facility] CT Abdomen with and without IV contraston [...] secure text messenger at 09/12/2023 12:28 PM. [facility] 09-11 12:28 -0400 Madhu Rider MD - [...] secure text messenger at 09/12/2023 12:28 PM. [facility] 09-11 12:28 -0400 Radiology Study observation (narrative) [facility] Complete Blood Count, with D ifferential (AM)on 09-12-2023 Basophils Auto (Bld) [#/Vol] 0.04 [facility] 09-11 07:33 -0400 Abs Basophils Auto 0.04 0.00 - 0.20 Thou/uL 09/12/2023 7:33 AM EDT [facility] Basophils/100 WBC Auto (Bld) 0.2 % [facility] 09-11 07:33 -0400 Basophils Auto 0.2 % 09/12/2023 7:33 AM T [facility] Eosinophils Auto (Bld) [#/Vol] 0.30 [facility] 09-11 07:33 -0400 Abs Eosinophils Auto 0.30 0.00 - 0.70 Thou/uL 09/12/2023 7:33 AM EDT [facility] Eosinophils/10 0 WBC Auto (Bld) 1.8 % [facility] 09-11 07:33 -0400 Eosinophils Auto 1.8 % 09/12/2023 7:33 AM T [facility] RBC Auto (Bld) [#/Vol] 2.67 Low [facility] 09-11 07:33 -0400 Red Blood Cell Count 2.67 (L) 4.00 - 5.40 Mil/uL 09/12/2023 7:33 AM T [facility] Hematocrit Auto (Bld) [Volume fraction] 24.9 % Low 35.0 - 47.0 % [facility] 09-11 07:33 -0400 Hematocrit 24.9 (L) 35.0 - 47.0 % 09/12/2023 7:33 AM T [facility] Hemoglobin (Bld) [Mass/Vol] 7.9 g/dL Low 11.7 - 15.7 g/dL [facility] 09-11 07:33 -0400 Hemoglobin 7.9 (L) 11.7 - 15.7 g/dL 09/12/2023 7:33 AM T [facility] Lymphocytes Auto (Bld) [#/Vol] 2.02 [facility] 09-11 07:33 -0400 Abs Lymphocytes Auto 2.02 1.50 - 4.50 Thou/uL 09/12/2023 7:33 AM T [facility] Lymphocytes/10 0 WBC Auto (Bld) 12.4 % [facility] 09-11 07:33 -0400 Lymphocytes Auto 12.4 % 09/12/2023 7:33 AM EDT [facility] MCH Auto (RBC) [Entitic mass] 29.6 pg 26.0 - 34.0 pg [facility] 09-11 07:33 -0400 MCH 29.6 26.0 - 34.0 pg 09/12/2023 7:33 AM EDT [facility] MCHC Auto (RBC) [Mass/Vol] 31.7 g/dL 30.0 - 36.0 g/dL [facility] 09-11 07:33 -0400 MCHC 31.7 30.0 - 36.0 g/dL 09/12/2023 7:33 AM EDT [facility] MCV Auto (RBC) [Entitic vol] 93 fL 80 - 100 fL [facility] 09-11 07:33 -0400 MCV 93 80 - 100 fL 09/12/2023 7:33 AM EDT [facility] Monocytes Auto (Bld) [#/Vol] 0.96 [facility] 09-11 07:33 -0400 Abs Monocytes Auto 0.96 0.20 - 1.50 Thou/uL 09/12/2023 7:33 AM EDT [facility] Monocytes/100 WBC Auto (Bld) 5.9 % [facility] 09-11 07:33 -0400 Monocytes Auto 5.9 % 09/12/2023 7:33 AM EDT [facility] Neutrophils Auto (Bld) [#/Vol] 12.30 High [facility] 09-11 07:33 -0400 Abs Neutrophils Auto 12.30 (H) 2.00 - 7.50 Thou/uL 09/12/2023 7:33 AM EDT [facility] Neutrophils/10 0 WBC Auto (Bld) 75.2 % [facility] 09-11 07:33 -0400 Neutrophils Auto 75.2 % 09/12/2023 7:33 AM EDT [facility] Nucleated RBC/100 WBC Auto (Bld) [Ratio] 0.3 High [facility] 09-11 07:33 -0400 nRBC 0.3 (H) 0.0 - 0.1 /100 WBC 09/12/2023 7:33 AM EDT [facility] Platelet mean volume Auto (Bld) [Entitic vol] 11.0 fL 7.5 - 12.5 fL [facility] 09-11 07:33 -0400 MPV 11.0 7.5 - 12.5 fL 09/12/2023 7:33 AM EDT [facility] Platelets Auto (Bld) [#/Vol] 465 [facility] 09-11 07:33 -0400 Platelet Count 465 (H) 150 - 450 Thou/uL 09/12/2023 7:33 AM T [facility] Erythrocyte distribution width Auto (RBC) [Ratio] 18.0 % High 11.5 - 14.5 % [facility] 09-11 07:33 -0400 RDW 18.0 (H) 11.5 - 14.5 % 09/12/2023 7:33 AM EDT [facility] WBC Auto (Bld) [#/Vol] 16.4 [facility] 09-11 07:33 -0400 White Blood Cell Count 16.4 (H) 4.0 - 11.0 Thou/uL 09/12/2023 7:33 AM T [facility] Nucleated RBC Auto (Bld) [#/Vol] 0.05 [facility] 09-11 07:33 -0400 nRBC, Absolute 0.05 (H) 0.00 - 0.02 Thou/uL 09/12/2023 7:33 AM EDT [facility] Immature granulocytes/1 00 WBC Auto (Bld) 4.5 % [facility] 09-11 07:33 -0400 Immature Granulocytes 4.5 % 09/12/2023 7:33 AM T [facility] Immature granulocytes Auto (Bld) [#/Vol] 0.73 [facility] 09-11 07:33 -0400 Abs Immature Granulocytes 0.73 (H) 0.00 - 0.10 Thou/uL 09/12/2023 7:33 AM EDT [facility] Emergency Department (DEEDS) variableson 09-12-2023 Interpretation and review of laboratory results Abnormal [facility] 09-11 08:26 -0400 No Panel Informationon 09-11 [facility] 09-11 08:26 -0400 Beta-hCG, Qualitative, Urine on 09-11-2023 HCG ( test) Ql (U) Negative Negative [facility] 09-10 12:32 -0400 Beta-hCG, Qualitative, Urine Negative Negative 09/11/2023 12:32 PM EDT [facility] C-Reactive Proteinon 024 CRP [Mass/Vol] 25.00 mg/dL High NINF - 1.00 mg/dL [facility] 09-10 06:11 -0400 C-Reactive Protein 25.00 (H) <1.00 mg/dL 09/11/2023 6:11 AM EDT [facility] Complete Blood Count, with D ifferentialon 09-11-2023 Basophils Auto (Bld) [#/Vol] 0.08 [facility] 09-10 05:59 -0400 Abs Basophils Auto 0.08 0.00 - 0.20 Thou/uL 09/11/2023 5:59 AM EDT [facility] Basophils/100 WBC Auto (Bld) 0.5 % [facility] 09-10 05:59 -0400 Basophils Auto 0.5 % 09/11/2023 5:59 AM EDT [facility] Eosinophils Auto (Bld) [#/Vol] 0.29 [facility] 09-10 05:59 -0400 Abs Eosinophils Auto 0.29 0.00 - 0.70 Thou/uL 09/11/2023 5:59 AM EDT [facility] Eosinophils/10 0 WBC Auto (Bld) 2.0 % [facility] 09-10 05:59 -0400 Eosinophils Auto 2.0 % 09/11/2023 5:59 AM EDT [facility] RBC Auto (Bld) [#/Vol] 2.67 Low [facility] 09-10 05:59 -0400 Red Blood Cell Count 2.67 (L) 4.00 - 5.40 Mil/uL 09/11/2023 5:57 AM EDT [facility] Hematocrit Auto (Bld) [Volume fraction] 24.4 % Low 35.0 - 47.0 % [facility] 09-10 05:59 -0400 Hematocrit 24.4 (L) 35.0 - 47.0 % 09/11/2023 5:57 AM EDT [facility] Hemoglobin (Bld) [Mass/Vol] 8.0 g/dL Low 11.7 - 15.7 g/dL [facility] 09-10 05:59 -0400 Hemoglobin 8.0 (L) 11.7 - 15.7 g/dL 09/11/2023 5:57 AM T [facility] Lymphocytes Auto (Bld) [#/Vol] 1.78 [facility] 09-10 05:59 -0400 Abs Lymphocytes Auto 1.78 1.50 - 4.50 Thou/uL 09/11/2023 5:59 AM EDT [facility] Lymphocytes/10 0 WBC Auto (Bld) 12.1 % [facility] 09-10 05:59 -0400 Lymphocytes Auto 12.1 % 09/11/2023 5:59 AM T [facility] MCH Auto (RBC) [Entitic mass] 30.0 pg 26.0 - 34.0 pg [facility] 09-10 05:59 -0400 MCH 30.0 26.0 - 34.0 pg 09/11/2023 5:57 AM EDT [facility] MCHC Auto (RBC) [Mass/Vol] 32.8 g/dL 30.0 - 36.0 g/dL [facility] 09-10 05:59 -0400 MCHC 32.8 30.0 - 36.0 g/dL 09/11/2023 5:57 AM T [facility] MCV Auto (RBC) [Entitic vol] 91 fL 80 - 100 fL [facility] 09-10 05:59 -0400 MCV 91 80 - 100 fL 09/11/2023 5:57 AM EDT [facility] Monocytes Auto (Bld) [#/Vol] 1.24 [facility] 09-10 05:59 -0400 Abs Monocytes Auto 1.24 0.20 - 1.50 Thou/uL 09/11/2023 5:59 AM EDT [facility] Monocytes/100 WBC Auto (Bld) 8.4 % [facility] 09-10 05:59 -0400 Monocytes Auto 8.4 % 09/11/2023 5:59 AM EDT [facility] Neutrophils Auto (Bld) [#/Vol] 10.56 High [facility] 09-10 05:59 -0400 Abs Neutrophils Auto 10.56 (H) 2.00 - 7.50 Thou/uL 09/11/2023 5:59 AM EDT [facility] Neutrophils/10 0 WBC Auto (Bld) 71.9 % [facility] 09-10 05:59 -0400 Neutrophils Auto 71.9 % 09/11/2023 5:59 AM EDT [facility] Nucleated RBC/100 WBC Auto (Bld) [Ratio] 0.3 High [facility] 09-10 05:59 -0400 nRBC 0.3 (H) 0.0 - 0.1 /100 WBC 09/11/2023 5:57 AM EDT [facility] Platelet mean volume Auto (Bld) [Entitic vol] 11.1 fL 7.5 - 12.5 fL [facility] 09-10 05:59 -0400 MPV 11.1 7.5 - 12.5 fL 09/11/2023 5:57 AM EDT [facility] Platelets Auto (Bld) [#/Vol] 403 [facility] 09-10 05:59 -0400 Platelet Count 403 150 - 450 Thou/uL 09/11/2023 5:57 AM EDT [facility] Erythrocyte distribution width Auto (RBC) [Ratio] 17.4 % High 11.5 - 14.5 % [facility] 09-10 05:59 -0400 RDW 17.4 (H) 11.5 - 14.5 % 09/11/2023 5:57 AM EDT [facility] WBC Auto (Bld) [#/Vol] 14.7 High [facility] 09-10 05:59 -0400 White Blood Cell Count 14.7 (H) 4.0 - 11.0 Thou/uL 09/11/2023 5:57 AM EDT [facility] Nucleated RBC Auto (Bld) [#/Vol] 0.04 [facility] 09-10 05:59 -0400 nRBC, Absolute 0.04 (H) 0.00 - 0.02 Thou/uL 09/11/2023 5:57 AM T [facility] Immature granulocytes/1 00 WBC Auto (Bld) 5.1 % [facility] 09-10 05:59 -0400 Immature Granulocytes 5.1 % 09/11/2023 5:59 AM EDT [facility] Immature granulocytes Auto (Bld) [#/Vol] 0.75 [facility] 09-10 05:59 -0400 Abs Immature Granulocytes 0.75 (H) 0.00 - 0.10 Thou/uL 09/11/2023 5:59 AM T [facility] Comprehensive Metabolic Pane tammie 09-11-2023 ALT [Catalytic activity/Vol] 44 U/L High 7 - 35 U/L [facility] 09-10 06:11 -0400 Alanine Aminotrans (ALT) 44 (H) 7 - 35 U/L 09/11/2023 6:11 AM T [facility] Albumin [Mass/Vol] 3.7 g/dL 3.4 - 4.8 g/dL [facility] 09-10 06:11 -0400 Albumin 3.7 3.4 - 4.8 g/dL 09/11/2023 6:11 AM T [facility] ALP [Catalytic activity/Vol] 218 U/L High 32 - 122 U/L [facility] 09-10 06:11 -0400 Alkaline Phosphatase 218 (H) 32 - 122 U/L 09/11/2023 6:11 AM EDT [facility] AST [Catalytic activity/Vol] 86 U/L High NINF - 34 U/L [facility] 09-10 06:11 -0400 Aspartate Aminotrans (AST) 86 (H) <34 U/L 09/11/2023 6:11 AM T [facility] Bilirubin [Mass/Vol] 0.7 mg/dL 0.3 - 1.2 mg/dL [facility] 09-10 06:11 -0400 Bilirubin, Total 0.7 0.3 - 1.2 mg/dL 09/11/2023 6:11 AM T [facility] Urea nitrogen/Creat inine [Mass ratio] Not calculated [facility] 09-10 06:11 0400 BUN/Creatinine Ratio Not calculated 10.0 - 25.0 Ratio 09/11/2023 6:11 AM T [facility] Calcium [Mass/Vol] 8.3 mg/dL Low 8.7 - 10.5 mg/dL [facility] 09-10 06:11 -0400 Calcium 8.3 (L) 8.7 - 10.5 mg/dL 09/11/2023 6:11 AM T [facility] Chloride [Moles/Vol] 102 mmol/L 98 - 107 mmol/L [facility] 09-10 06:11 -0400 Chloride 102 98 - 107 mmol/L 09/11/2023 6:11 AM T [facility] CO2 [Moles/Vol] 27 mmol/L 20 - 31 mmol/L [facility] 09-10 06:11 -0400 CO2 27 20 - 31 mmol/L 09/11/2023 6:11 AM T [facility] Creatinine [Mass/Vol] 0.5 mg/dL Low 0.6 - 1.0 mg/dL [facility] 09-10 06:11 -0400 Creatinine 0.5 (L) 0.6 - 1.0 mg/dL 09/11/2023 6:11 AM [facility] Glucose [Mass/Vol] 131 mg/dL High 74 - 106 mg/dL [facility] 09-10 06:11 0400 Glucose 131 (H) 74 - 106 mg/dL 09/11/2023 6:11 AM [facility] Comment on above: Fasting: <100 mg/dL, Non-Fasting: <200 m g/dL (ADA 2004) Potassium [Moles/Vol] 3.3 mmol/L Low 3.4 - 4.5 mmol/L [facility] 09-10 06:11 -0400 Potassium 3.3 (L) 3.4 - 4.5 mmol/L 09/11/2023 6:11 AM [facility] Protein [Mass/Vol] 6.0 g/dL 5.7 - 8.2 g/dL [facility] 09-10 06:11 -0400 Protein, Total 6.0 5.7 - 8.2 g/dL 09/11/2023 6:11 AM [facility] Sodium [Moles/Vol] 136 mmol/L 136 - 145 mmol/L [facility] 09-10 06:11 -0400 Sodium 136 136 - 145 mmol/L 09/11/2023 6:11 AM [facility] Urea nitrogen [Mass/Vol] <5 >NINF mg/dL Low 9 - 23 mg/dL [facility] 09-10 06:11 -0400 Blood Urea Nitrogen (BUN) <5 (L) 9 - 23 mg/dL 09/11/2023 6:11 AM [facility] GFR/1.73 sq M.predicted CKD-EPI (S/P/Bld) [Vol rate/Area] <PINF >90 59 - PINF [facility] 09-10 06:11 -0400 eGFR >90 >59 09/11/2023 6:11 AM [facility] Comment on above: CKD-EPI (2020) in mL/min/1.73 sq meters. Globulin Calc (S) [Mass/Vol] 2.3 g/dL 1.5 - 3.9 g/dL [facility] 09-10 06:11 -0400 Globulin 2.3 1.5 - 3.9 g/dL 09/11/2023 6:11 AM EDT [facility] Albumin/Globul in [Mass ratio] 1.6 [facility] 09-10 06:11 -0400 Albumin/Globuli n Ratio 1.6 1.5 - 2.5 Ratio 09/11/2023 6:11 AM EDT [facility] Anion gap (Bld) [Moles/Vol] 7 5 - 15 [facility] 09-10 06:11 -0400 Anion Gap 7 5 - 15 09/11/2023 6:11 AM EDT [facility] Emergency Department ([facility]ED[facility]) variableson 09-11-2023 Interpretation and review of laboratory results Abnormal [facility] 09-10 06:11 -0400 MAGNESIUMon 09-11-2023 Magnesium [Mass/Vol] 2.0 mg/dL 1.6 - 2.6 mg/dL [facility] 09-10 06:11 -0400 Magnesium 2.0 1.6 - 2.6 mg/dL 09/11/2023 6:11 AM EDT [facility] No Panel Informationon 09-10 [facility] 09-10 12:32 -0400 [facility] 09-10 06:11 -0400 PHOSPHORUSon 09-11-2023 Phosphate [Mass/Vol] 3.0 mg/dL 2.4 - 5.1 mg/dL [facility] 09-10 06:11 -0400 Phosphorus 3.0 2.4 - 5.1 mg/dL 09/11/2023 6:11 AM EDT [facility] POCT Glucose, Fingerstickon 09-11-2023 Glucose (Bld) [Mass/Vol] 126 mg/dL High 65 - 99 mg/dL [facility] 09-10 20:06 -0400 POC Glucose 126 (H) 65 - 99 mg/dL 09/11/2023 8:06 PM EDT [facility] Glucose (Bld) [Mass/Vol] 131 mg/dL High 65 - 99 mg/dL [facility] 09-10 16:57 -0400 POC Glucose 131 (H) 65 - 99 mg/dL 09/11/2023 4:57 PM EDT [facility] Glucose (Bld) [Mass/Vol] 130 mg/dL High 65 - 99 mg/dL [facility] 09-10 11:48 -0400 POC Glucose 130 (H) 65 - 99 mg/dL 09/11/2023 11:48 AM EDT [facility] Glucose (Bld) [Mass/Vol] 120 mg/dL High 65 - 99 mg/dL [facility] 09-10 08:00 -0400 POC Glucose 120 (H) 65 - 99 mg/dL 09/11/2023 8:00 AM T [facility] Glucose (Bld) [Mass/Vol] 117 mg/dL High 65 - 99 mg/dL [facility] 09-10 04:19 -0400 POC Glucose 117 (H) 65 - 99 mg/dL 09/11/2023 4:19 AM EDT [facility] Interpretation and review of laboratory results Abnormal [facility] 09-10 20:06 -0400 [facility] 09-10 20:06 -0400 Interpretation and review of laboratory results Abnormal [facility] 09-10 16:57 -0400 [facility] 09-10 16:57 -0400 Interpretation and review of laboratory results Abnormal [facility] 09-10 11:48 -0400 Interpretation and review of laboratory results Abnormal [facility] 09-10 08:00 -0400 [facility] 09-10 08:00 -0400 Interpretation and review of laboratory results Abnormal [facility] 09-10 04:19 -0400 [facility] 09-10 04:19 -0400 BASIC METABOLIC PANELon 04-0 Urea nitrogen/Creat inine [Mass ratio] Not calculated [facility] 09-09 04:46 -0400 BUN/Creatinine Ratio Not calculated 10.0 - 25.0 Ratio 09/10/2023 4:46 AM EDT [facility] Calcium [Mass/Vol] 8.6 mg/dL Low 8.7 - 10.5 mg/dL [facility] 09-09 04:46 -0400 Calcium 8.6 (L) 8.7 - 10.5 mg/dL 09/10/2023 4:46 AM T [facility] Chloride [Moles/Vol] 104 mmol/L 98 - 107 mmol/L [facility] 09-09 04:46 -0400 Chloride 104 98 - 107 mmol/L 09/10/2023 4:46 AM T [facility] CO2 [Moles/Vol] 23 mmol/L 20 - 31 mmol/L [facility] 09-09 04:46 -0400 CO2 23 20 - 31 mmol/L 09/10/2023 4:46 AM [facility] Creatinine [Mass/Vol] 0.5 mg/dL Low 0.6 - 1.0 mg/dL [facility] 09-09 04:46 -0400 Creatinine 0.5 (L) 0.6 - 1.0 mg/dL 09/10/2023 4:46 AM [facility] Glucose [Mass/Vol] 111 mg/dL High 74 - 106 mg/dL [facility] 09-09 04:46 -0400 Glucose 111 (H) 74 - 106 mg/dL 09/10/2023 4:46 AM [facility] Comment on above: Fasting: <100 mg/dL, Non-Fasting: <200 m g/dL (ADA 2005) Potassium [Moles/Vol] 3.9 mmol/L 3.4 - 4.5 mmol/L [facility] 09-09 04:46 -0400 Potassium 3.9 3.4 - 4.5 mmol/L 09/10/2023 4:46 AM [facility] Sodium [Moles/Vol] 134 mmol/L Low 136 - 145 mmol/L [facility] 09-09 04:46 -0400 Sodium 134 (L) 136 - 145 mmol/L 09/10/2023 4:46 AM [facility] Urea nitrogen [Mass/Vol] <5 >NINF mg/dL Low 9 - 23 mg/dL [facility] 09-09 04:46 -0400 Blood Urea Nitrogen (BUN) <5 (L) 9 - 23 mg/dL 09/10/2023 4:46 AM EDT [facility] GFR/1.73 sq M.predicted CKD-EPI (S/P/Bld) [Vol rate/Area] <PINF >90 59 - PINF [facility] 09-09 04:46 -0400 eGFR >90 >59 09/10/2023 4:46 AM T [facility] Comment on above: CKD-EPI (2020) in mL/min/1.73 sq meters. Anion gap (Bld) [Moles/Vol] 7 5 - 15 [facility] 09-09 04:46 -0400 Anion Gap 7 5 - 15 09/10/2023 4:46 AM T [facility] Interpretation and review of laboratory results Abnormal [facility] 09-09 04:46 -0400 C-REACTIVE PROTEINon 024 CRP [Mass/Vol] 30.10 mg/dL High NINF - 1.00 mg/dL [facility] 09-09 12:55 -0400 C-Reactive Protein 30.10 (H) <1.00 mg/dL 09/10/2023 12:55 PM EDT [facility] Complete Blood Count, with D ifferentialon 09-10-2023 Basophils Auto (Bld) [#/Vol] 0.07 [facility] 09-09 04:09 -0400 Abs Basophils Auto 0.07 0.00 - 0.20 Thou/uL 09/10/2023 4:09 AM T [facility] Basophils/100 WBC Auto (Bld) 0.7 % [facility] 09-09 04:09 -0400 Basophils Auto 0.7 % 09/10/2023 4:09 AM T [facility] Eosinophils Auto (Bld) [#/Vol] 0.20 [facility] 09-09 04:09 -0400 Abs Eosinophils Auto 0.20 0.00 - 0.70 Thou/uL 09/10/2023 4:09 AM EDT [facility] Eosinophils/10 0 WBC Auto (Bld) 1.9 % [facility] 09-09 04:09 -0400 Eosinophils Auto 1.9 % 09/10/2023 4:09 AM EDT [facility] RBC Auto (Bld) [#/Vol] 3.07 Low [facility] 09-09 04:09 -0400 Red Blood Cell Count 3.07 (L) 4.00 - 5.40 Mil/uL 09/10/2023 4:09 AM T [facility] Hematocrit Auto (Bld) [Volume fraction] 28.4 % Low 35.0 - 47.0 % [facility] 09-09 04:09 -0400 Hematocrit 28.4 (L) 35.0 - 47.0 % 09/10/2023 4:09 AM EDT [facility] Hemoglobin (Bld) [Mass/Vol] 9.1 g/dL Low 11.7 - 15.7 g/dL [facility] 09-09 04:09 -0400 Hemoglobin 9.1 (L) 11.7 - 15.7 g/dL 09/10/2023 4:09 AM T [facility] Lymphocytes Auto (Bld) [#/Vol] 1.36 Low [facility] 09-09 04:09 -0400 Abs Lymphocytes Auto 1.36 (L) 1.50 - 4.50 Thou/uL 09/10/2023 4:09 AM EDT [facility] Lymphocytes/10 0 WBC Auto (Bld) 12.7 % [facility] 09-09 04:09 -0400 Lymphocytes Auto 12.7 % 09/10/2023 4:09 AM T [facility] MCH Auto (RBC) [Entitic mass] 29.6 pg 26.0 - 34.0 pg [facility] 09-09 04:09 -0400 MCH 29.6 26.0 - 34.0 pg 09/10/2023 4:09 AM EDT [facility] MCHC Auto (RBC) [Mass/Vol] 32.0 g/dL 30.0 - 36.0 g/dL [facility] 09-09 04:09 0400 MCHC 32.0 30.0 - 36.0 g/dL 09/10/2023 4:09 AM EDT [facility] MCV Auto (RBC) [Entitic vol] 93 fL 80 - 100 fL [facility] 09-09 04:0400 MCV 93 80 - 100 fL 09/10/2023 4:09 AM EDT [facility] Monocytes Auto (Bld) [#/Vol] 1.23 [facility] 09-09 04:09 0400 Abs Monocytes Auto 1.23 0.20 - 1.50 Thou/uL 09/10/2023 4:09 AM EDT [facility] Monocytes/100 WBC Auto (Bld) 11.5 % [facility] 09-09 04:09 0400 Monocytes Auto 11.5 % 09/10/2023 4:09 AM EDT [facility] Neutrophils Auto (Bld) [#/Vol] 7.41 [facility] 09-09 04:09 0400 Abs Neutrophils Auto 7.41 2.00 - 7.50 Thou/uL 09/10/2023 4:09 AM EDT [facility] Neutrophils/10 0 WBC Auto (Bld) 69.0 % [facility] 09-09 04:0400 Neutrophils Auto 69.0 % 09/10/2023 4:09 AM EDT [facility] Platelet mean volume Auto (Bld) [Entitic vol] 11.5 fL 7.5 - 12.5 fL [facility] 09-09 04:0400 MPV 11.5 7.5 - 12.5 fL 09/10/2023 4:09 AM EDT [facility] Platelets Auto (Bld) [#/Vol] 276 [facility] 09-09 04:09 0400 Platelet Count 276 150 - 450 Thou/uL 09/10/2023 4:09 AM EDT [facility] Erythrocyte distribution width Auto (RBC) [Ratio] 17.5 % High 11.5 - 14.5 % [facility] 09-09 04:09 -0400 RDW 17.5 (H) 11.5 - 14.5 % 09/10/2023 4:09 AM EDT [facility] WBC Auto (Bld) [#/Vol] 10.7 [facility] 09-09 04:09 -0400 White Blood Cell Count 10.7 4.0 - 11.0 Thou/uL 09/10/2023 4:09 AM EDT [facility] Immature granulocytes/1 00 WBC Auto (Bld) 4.2 % [facility] 09-09 04:09 -0400 Immature Granulocytes 4.2 % 09/10/2023 4:09 AM EDT [facility] Immature granulocytes Auto (Bld) [#/Vol] 0.45 High [facility] 09-09 04:09 -0400 Abs Immature Granulocytes 0.45 (H) 0.00 - 0.10 Thou/uL 09/10/2023 4:09 AM EDT [facility] Emergency Department (DEEDS) variableson 09-10-2023 Interpretation and review of laboratory results Abnormal [facility] 09-09 13:24 -0400 Interpretation and review of laboratory results Abnormal [facility] 09-09 08:38 -0400 LIPASEon 09-10-2023 Lipase [Catalytic activity/Vol] 56 U/L High 12 - 53 U/L [facility] 09-09 08:38 -0400 Lipase 56 (H) 12 - 53 U/L 09/10/2023 8:38 AM EDT [facility] Lactic Acid, Plasma (Routine )on 09-10-2023 Lactate [Moles/Vol] 1.0 mmol/L 0.5 - 1.9 mmol/L [facility] 09-09 04:42 -0400 Lactic Acid 1.0 0.5 - 1.9 mmol/L 09/10/2023 4:42 AM EDT [facility] MAGNESIUMon 04-08-2024 Magnesium [Mass/Vol] 2.1 mg/dL 1.6 - 2.6 mg/dL [facility] 09-09 04:46 -0400 Magnesium 2.1 1.6 - 2.6 mg/dL 09/10/2023 4:46 AM EDT [facility] No Panel Informationon 09-09 [facility] 09-09 13:24 -0400 [facility] 09-09 08:38 -0400 [facility] 09-09 04:46 -0400 PHOSPHORUSon 09-10-2023 Phosphate [Mass/Vol] 2.4 mg/dL 2.4 - 5.1 mg/dL [facility] 09-09 04:46 -0400 Phosphorus 2.4 2.4 - 5.1 mg/dL 09/10/2023 4:46 AM EDT [facility] POCT Glucose, Fingerstickon 09-10-2023 Glucose (Bld) [Mass/Vol] 157 mg/dL High 65 - 99 mg/dL [facility] 09-09 23:53 -0400 POC Glucose 157 (H) 65 - 99 mg/dL 09/10/2023 11:53 PM EDT [facility] Glucose (Bld) [Mass/Vol] 124 mg/dL High 65 - 99 mg/dL [facility] 09-09 19:57 -0400 POC Glucose 124 (H) 65 - 99 mg/dL 09/10/2023 7:57 PM EDT [facility] Glucose (Bld) [Mass/Vol] 114 mg/dL High 65 - 99 mg/dL [facility] 09-09 17:06 -0400 POC Glucose 114 (H) 65 - 99 mg/dL 09/10/2023 5:06 PM EDT [facility] Glucose (Bld) [Mass/Vol] 118 mg/dL High 65 - 99 mg/dL [facility] 09-09 11:44 -0400 POC Glucose 118 (H) 65 - 99 mg/dL 09/10/2023 11:44 AM EDT [facility] Glucose (Bld) [Mass/Vol] 104 mg/dL High 65 - 99 mg/dL [facility] 09-09 07:44 -0400 POC Glucose 104 (H) 65 - 99 mg/dL 09/10/2023 7:44 AM EDT [facility] Glucose (Bld) [Mass/Vol] 102 mg/dL High 65 - 99 mg/dL [facility] 09-09 04:12 -0400 POC Glucose 102 (H) 65 - 99 mg/dL 09/10/2023 4:12 AM EDT [facility] Glucose (Bld) [Mass/Vol] 135 mg/dL High 65 - 99 mg/dL [facility] 09-09 00:07 -0400 POC Glucose 135 (H) 65 - 99 mg/dL 09/10/2023 12:07 AM EDT [facility] Interpretation and review of laboratory results Abnormal [facility] 09-09 23:53 -0400 [facility] 09-09 23:53 -0400 Interpretation and review of laboratory results Abnormal [facility] 09-09 19:57 -0400 [facility] 09-09 19:57 -0400 Interpretation and review of laboratory results Abnormal [facility] 09-09 17:06 -0400 [facility] 09-09 17:06 -0400 Interpretation and review of laboratory results Abnormal [facility] 09-09 11:44 -0400 [facility] 09-09 11:44 -0400 Interpretation and review of laboratory results Abnormal [facility] 09-09 00:07 -0400 [facility] 09-09 00:07 -0400 Sed Rateon 09-10-2023 ESR Westergren method (Bld) [Velocity] 84 High [facility] 09-09 13:24 -0400 Sedimentation Rate 84 (H) 0 - 20 MM/HR 09/10/2023 1:24 PM EDT [facility] BASIC METABOLIC PANELon 04-0 Urea nitrogen/Creat inine [Mass ratio] Not calculated [facility] 09-08 05:48 -0400 BUN/Creatinine Ratio Not calculated 10.0 - 25.0 Ratio 09/09/2023 5:48 AM EDT [facility] Calcium [Mass/Vol] 9.5 mg/dL 8.7 - 10.5 mg/dL [facility] 09-08 05:48 -0400 Calcium 9.5 8.7 - 10.5 mg/dL 09/09/2023 5:48 AM EDT [facility] Chloride [Moles/Vol] 99 mmol/L 98 - 107 mmol/L [facility] 09-08 05:48 -0400 Chloride 99 98 - 107 mmol/L 09/09/2023 5:48 AM EDT [facility] CO2 [Moles/Vol] 27 mmol/L 20 - 31 mmol/L [facility] 09-08 05:48 -0400 CO2 27 20 - 31 mmol/L 09/09/2023 5:48 AM EDT [facility] Creatinine [Mass/Vol] 0.5 mg/dL Low 0.6 - 1.0 mg/dL [facility] 09-08 05:48 -0400 Creatinine 0.5 (L) 0.6 - 1.0 mg/dL 09/09/2023 5:48 AM EDT [facility] Glucose [Mass/Vol] 106 mg/dL 74 - 106 mg/dL [facility] 09-08 05:48 -0400 Glucose 106 74 - 106 mg/dL 09/09/2023 5:48 AM EDT [facility] Comment on above: Fasting: <100 mg/dL, Non-Fasting: <200 m g/dL (ADA 2005) Potassium [Moles/Vol] 3.1 mmol/L Low 3.4 - 4.5 mmol/L [facility] 09-08 05:48 -0400 Potassium 3.1 (L) 3.4 - 4.5 mmol/L 09/09/2023 5:48 AM EDT [facility] Sodium [Moles/Vol] 135 mmol/L Low 136 - 145 mmol/L [facility] 09-08 05:48 -0400 Sodium 135 (L) 136 - 145 mmol/L 09/09/2023 5:48 AM EDT [facility] Urea nitrogen [Mass/Vol] <5 >NINF mg/dL Low 9 - 23 mg/dL [facility] 09-08 05:48 -0400 Blood Urea Nitrogen (BUN) <5 (L) 9 - 23 mg/dL 09/09/2023 5:48 AM EDT [facility] GFR/1.73 sq M.predicted CKD-EPI (S/P/Bld) [Vol rate/Area] <PINF >90 59 - PINF [facility] 09-08 05:48 -0400 eGFR >90 >59 09/09/2023 5:48 AM EDT [facility] Comment on above: CKD-EPI (2020) in mL/min/1.73 sq meters. Anion gap (Bld) [Moles/Vol] 9 5 - 15 [facility] 09-08 05:48 -0400 Anion Gap 9 5 - 15 09/09/2023 5:48 AM EDT [facility] Complete Blood Count, with D ifferentialon 09-09-2023 Basophils Auto (Bld) [#/Vol] 0.1 [facility] 09-08 05:58 -0400 Abs Basophils Man 0.1 0.0 - 0.2 Thou/uL 09/09/2023 5:58 AM EDT [facility] Basophils/100 WBC Auto (Bld) 1 % [facility] 09-08 05:58 -0400 Basophils Man 1 % 09/09/2023 5:58 AM EDT [facility] RBC Auto (Bld) [#/Vol] 3.31 Low [facility] 09-08 05:58 -0400 Red Blood Cell Count 3.31 (L) 4.00 - 5.40 Mil/uL 09/09/2023 5:20 AM EDT [facility] Hematocrit Auto (Bld) [Volume fraction] 30.7 % Low 35.0 - 47.0 % [facility] 09-08 05:58 -0400 Hematocrit 30.7 (L) 35.0 - 47.0 % 09/09/2023 5:20 AM EDT [facility] Hemoglobin (Bld) [Mass/Vol] 9.9 g/dL Low 11.7 - 15.7 g/dL [facility] 09-08 05:58 -0400 Hemoglobin 9.9 (L) 11.7 - 15.7 g/dL 09/09/2023 5:20 AM EDT [facility] Lymphocytes Auto (Bld) [#/Vol] 1.2 Low [facility] 09-08 05:58 -0400 Abs Lymphocytes Man 1.2 (L) 1.5 - 4.5 Thou/uL 09/09/2023 5:58 AM EDT [facility] Lymphocytes/10 0 WBC Auto (Bld) 12 % [facility] 09-08 05:58 -0400 Lymphocytes Man 12 % 09/09/2023 5:58 AM EDT [facility] MCH Auto (RBC) [Entitic mass] 29.9 pg 26.0 - 34.0 pg [facility] 09-08 05:58 -0400 MCH 29.9 26.0 - 34.0 pg 09/09/2023 5:20 AM EDT [facility] MCHC Auto (RBC) [Mass/Vol] 32.2 g/dL 30.0 - 36.0 g/dL [facility] 09-08 05:58 -0400 MCHC 32.2 30.0 - 36.0 g/dL 09/09/2023 5:20 AM EDT [facility] MCV Auto (RBC) [Entitic vol] 93 fL 80 - 100 fL [facility] 09-08 05:58 -0400 MCV 93 80 - 100 fL 09/09/2023 5:20 AM EDT [facility] Metamyelocytes /100 WBC Manual cnt (Bld) 1 % [facility] 09-08 05:58 -0400 Metamyelocytes 1 % 09/09/2023 5:58 AM EDT [facility] Monocytes Auto (Bld) [#/Vol] 1.1 [facility] 09-08 05:58 -0400 Abs Monocytes Man 1.1 0.2 - 1.5 Thou/uL 09/09/2023 5:58 AM EDT [facility] Monocytes/100 WBC Auto (Bld) 11 % [facility] 09-08 05:58 -0400 Monocytes Man 11 % 09/09/2023 5:58 AM EDT [facility] Myelocytes/100 WBC Manual cnt (Bld) 2 % [facility] 09-08 05:58 -0400 Myelocytes 2 % 09/09/2023 5:58 AM EDT [facility] Neutrophils Auto (Bld) [#/Vol] 7.1 [facility] 09-08 05:58 -0400 Abs Neutrophils Count (ANC) 7.1 2.0 - 7.5 Thou/uL 09/09/2023 5:58 AM EDT [facility] Band form neutrophils Manual cnt (Bld) [#/Vol] 3 % [facility] 09-08 05:58 -0400 Bands Man 3 % 09/09/2023 5:58 AM EDT [facility] Nucleated RBC/100 WBC Auto (Bld) [Ratio] 0.2 High [facility] 09-08 05:58 -0400 nRBC 0.2 (H) 0.0 - 0.1 /100 WBC 09/09/2023 5:20 AM EDT [facility] Platelet mean volume Auto (Bld) [Entitic vol] 11.8 fL 7.5 - 12.5 fL [facility] 09-08 05:58 -0400 MPV 11.8 7.5 - 12.5 fL 09/09/2023 5:20 AM EDT [facility] Platelets Auto (Bld) [#/Vol] 142 Low [facility] 09-08 05:58 -0400 Platelet Count 142 (L) 150 - 450 Thou/uL 09/09/2023 5:20 AM EDT [facility] Erythrocyte distribution width Auto (RBC) [Ratio] 17.2 % High 11.5 - 14.5 % [facility] 09-08 05:58 -0400 RDW 17.2 (H) 11.5 - 14.5 % 09/09/2023 5:20 AM EDT [facility] WBC Auto (Bld) [#/Vol] 9.7 [facility] 09-08 05:58 -0400 White Blood Cell Count 9.7 4.0 - 11.0 Thou/uL 09/09/2023 5:20 AM EDT [facility] Nucleated RBC Auto (Bld) [#/Vol] 0.02 [facility] 09-08 05:58 -0400 nRBC, Absolute 0.02 0.00 - 0.02 Thou/uL 09/09/2023 5:20 AM EDT [facility] Segmented neutrophils/10 0 WBC (Bld) 70 % [facility] 09-08 05:58 -0400 Neutrophils Man 70 % 09/09/2023 5:58 AM EDT [facility] Myelocytes Manual cnt (Bld) [#/Vol] 0.2 High 0 Thou/uL [facility] 09-08 05:58 -0400 Abs Myelocytes 0.2 (H) 0 Thou/uL 09/09/2023 5:58 AM EDT [facility] Metamyelocytes Manual cnt (Bld) [#/Vol] 0.1 High 0 Thou/uL [facility] 09-08 05:58 -0400 Abs Metamyelocytes 0.1 (H) 0 Thou/uL 09/09/2023 5:58 AM EDT [facility] Polychromasia LM Ql (Bld) Occasional [facility] 09-08 05:58 -0400 Polychromasia Occasional 09/09/2023 5:58 AM EDT [facility] Interpretation and review of laboratory results Abnormal [facility] 09-08 05:58 -0400 MAGNESIUMon 09-09-2023 Magnesium [Mass/Vol] 2.4 mg/dL 1.6 - 2.6 mg/dL [facility] 09-08 05:48 -0400 Magnesium 2.4 1.6 - 2.6 mg/dL 09/09/2023 5:48 AM EDT [facility] No Panel Informationon 09-08 [facility] 09-08 05:58 -0400 PHOSPHORUSon 09-09-2023 Phosphate [Mass/Vol] 2.8 mg/dL 2.4 - 5.1 mg/dL [facility] 09-08 05:48 -0400 Phosphorus 2.8 2.4 - 5.1 mg/dL 09/09/2023 5:48 AM EDT [facility] POCT Glucose, Fingerstickon 09-09-2023 Glucose (Bld) [Mass/Vol] 132 mg/dL High 65 - 99 mg/dL [facility] 09-08 20:16 -0400 POC Glucose 132 (H) 65 - 99 mg/dL 09/09/2023 8:16 PM EDT [facility] Glucose (Bld) [Mass/Vol] 110 mg/dL High 65 - 99 mg/dL [facility] 09-08 16:00 -0400 POC Glucose 110 (H) 65 - 99 mg/dL 09/09/2023 4:00 PM EDT [facility] Glucose (Bld) [Mass/Vol] 121 mg/dL High 65 - 99 mg/dL [facility] 09-08 11:35 -0400 POC Glucose 121 (H) 65 - 99 mg/dL 09/09/2023 11:35 AM EDT [facility] Glucose (Bld) [Mass/Vol] 125 mg/dL High 65 - 99 mg/dL [facility] 09-08 08:23 -0400 POC Glucose 125 (H) 65 - 99 mg/dL 09/09/2023 8:23 AM EDT [facility] Glucose (Bld) [Mass/Vol] 122 mg/dL High 65 - 99 mg/dL [facility] 09-08 04:03 -0400 POC Glucose 122 (H) 65 - 99 mg/dL 09/09/2023 4:03 AM EDT [facility] Interpretation and review of laboratory results Abnormal [facility] 09-08 20:16 -0400 [facility] 09-08 20:16 -0400 Interpretation and review of laboratory results Abnormal [facility] 09-08 16:00 -0400 [facility] 09-08 16:00 -0400 Interpretation and review of laboratory results Abnormal [facility] 09-08 11:35 -0400 [facility] 09-08 11:35 -0400 Interpretation and review of laboratory results Abnormal [facility] 09-08 08:23 -0400 [facility] 09-08 08:23 -0400 Interpretation and review of laboratory results Abnormal [facility] 09-08 04:03 -0400 [facility] 09-08 04:03 -0400 Partial Thromboplastin Time (PTT)on 09-09-2023 aPTT Coag (PPP) [Time] 76 High [facility] 09-08 00:41 -0400 Partial Thromboplastin Time (PTT) 76 (H) 26 - 37 seconds 09/09/2023 12:41 AM EDT [facility] Anticoagulant ARGATROBAN (OR BIVALIRUDIN) [facility] 09-08 00:41 -0400 Anticoagulant ARGATROBAN (OR BIVALIRUDIN) 09/08/2023 8:43 PM EDT [facility] Interpretation and review of laboratory results Abnormal [facility] 09-08 00:41 -0400 [facility] 09-08 00:41 -0400 BLOOD CULTURE Peripheralon 0 09-08-2023 Microorganism identified Cx Nom (Specimen) Sterile after 5 days [facility] 09-12 09:43 -0400 Culture Sterile after 5 days 09/13/2023 9:[address] [facility] 09-12 09:43 -0400 Complete Blood Count, with D ifferential (Early AM)on 09-08-2023 Basophils Auto (Bld) [#/Vol] 0.06 [facility] 09-07 05:20 -0400 Abs Basophils Auto 0.06 0.00 - 0.20 Thou/uL 09/08/2023 5:20 AM EDT [facility] Basophils/100 WBC Auto (Bld) 0.6 % [facility] 09-07 05:20 -0400 Basophils Auto 0.6 % 09/08/2023 5:20 AM EDT [facility] Eosinophils Auto (Bld) [#/Vol] 0.10 [facility] 09-07 05:20 -0400 Abs Eosinophils Auto 0.10 0.00 - 0.70 Thou/uL 09/08/2023 5:20 AM EDT [facility] Eosinophils/10 0 WBC Auto (Bld) 1.1 % [facility] 09-07 05:20 -0400 Eosinophils Auto 1.1 % 09/08/2023 5:20 AM EDT [facility] RBC Auto (Bld) [#/Vol] 2.97 Low [facility] 09-07 05:20 -0400 Red Blood Cell Count 2.97 (L) 4.00 - 5.40 Mil/uL 09/08/2023 5:20 AM EDT [facility] Hematocrit Auto (Bld) [Volume fraction] 27.2 % Low 35.0 - 47.0 % [facility] 09-07 05:20 -0400 Hematocrit 27.2 (L) 35.0 - 47.0 % 09/08/2023 5:20 AM EDT [facility] Hemoglobin (Bld) [Mass/Vol] 9.1 g/dL Low 11.7 - 15.7 g/dL [facility] 09-07 05:20 -0400 Hemoglobin 9.1 (L) 11.7 - 15.7 g/dL 09/08/2023 5:20 AM EDT [facility] Lymphocytes Auto (Bld) [#/Vol] 1.02 Low [facility] 09-07 05:20 -0400 Abs Lymphocytes Auto 1.02 (L) 1.50 - 4.50 Thou/uL 09/08/2023 5:20 AM EDT [facility] Lymphocytes/10 0 WBC Auto (Bld) 10.9 % [facility] 09-07 05:20 -0400 Lymphocytes Auto 10.9 % 09/08/2023 5:20 AM EDT [facility] MCH Auto (RBC) [Entitic mass] 30.6 pg 26.0 - 34.0 pg [facility] 09-07 05:20 -0400 MCH 30.6 26.0 - 34.0 pg 09/08/2023 5:20 AM EDT [facility] MCHC Auto (RBC) [Mass/Vol] 33.5 g/dL 30.0 - 36.0 g/dL [facility] 09-07 05:20 -0400 MCHC 33.5 30.0 - 36.0 g/dL 09/08/2023 5:20 AM EDT [facility] MCV Auto (RBC) [Entitic vol] 92 fL 80 - 100 fL [facility] 09-07 05:20 -0400 MCV 92 80 - 100 fL 09/08/2023 5:20 AM EDT [facility] Monocytes Auto (Bld) [#/Vol] 1.23 [facility] 09-07 05:20 -0400 Abs Monocytes Auto 1.23 0.20 - 1.50 Thou/uL 09/08/2023 5:20 AM EDT [facility] Monocytes/100 WBC Auto (Bld) 13.1 % [facility] 09-07 05:20 -0400 Monocytes Auto 13.1 % 09/08/2023 5:20 AM EDT [facility] Neutrophils Auto (Bld) [#/Vol] 6.65 [facility] 09-07 05:20 -0400 Abs Neutrophils Auto 6.65 2.00 - 7.50 Thou/uL 09/08/2023 5:20 AM EDT [facility] Neutrophils/10 0 WBC Auto (Bld) 70.9 % [facility] 09-07 05:20 -0400 Neutrophils Auto 70.9 % 09/08/2023 5:20 AM EDT [facility] Nucleated RBC/100 WBC Auto (Bld) [Ratio] 0.4 High [facility] 09-07 05:20 -0400 nRBC 0.4 (H) 0.0 - 0.1 /100 WBC 09/08/2023 5:20 AM EDT [facility] Platelet mean volume Auto (Bld) [Entitic vol] 11.0 fL 7.5 - 12.5 fL [facility] 09-07 05:20 -0400 MPV 11.0 7.5 - 12.5 fL 09/08/2023 5:20 AM EDT [facility] Platelets Auto (Bld) [#/Vol] 86 Low [facility] 09-07 05:20 -0400 Platelet Count 86 (L) 150 - 450 Thou/uL 09/08/2023 5:20 AM T [facility] Erythrocyte distribution width Auto (RBC) [Ratio] 17.1 % High 11.5 - 14.5 % [facility] 09-07 05:20 -0400 RDW 17.1 (H) 11.5 - 14.5 % 09/08/2023 5:20 AM EDT [facility] WBC Auto (Bld) [#/Vol] 9.4 [facility] 09-07 05:20 -0400 White Blood Cell Count 9.4 4.0 - 11.0 Thou/uL 09/08/2023 5:20 AM T [facility] Nucleated RBC Auto (Bld) [#/Vol] 0.04 High [facility] 09-07 05:20 -0400 nRBC, Absolute 0.04 (H) 0.00 - 0.02 Thou/uL 09/08/2023 5:20 AM EDT [facility] Immature Platelet Fraction 9.8 % High 1.2 - 8.6 % [facility] 09-07 05:20 -0400 Immature Platelet Fraction 9.8 (H) 1.2 - 8.6 % 09/08/2023 5:20 AM EDT [facility] Immature granulocytes/1 00 WBC Auto (Bld) 3.4 % [facility] 09-07 05:20 -0400 Immature Granulocytes 3.4 % 09/08/2023 5:20 AM EDT [facility] Immature granulocytes Auto (Bld) [#/Vol] 0.32 High [facility] 09-07 05:20 -0400 Abs Immature Granulocytes 0.32 (H) 0.00 - 0.10 Thou/uL 09/08/2023 5:20 AM EDT [facility] Complete Blood Count, withou t Differential (Routine)on 09-08-2023 RBC Auto (Bld) [#/Vol] 2.84 Low [facility] 09-07 15:57 -0400 Red Blood Cell Count 2.84 (L) 4.00 - 5.40 Mil/uL 09/08/2023 3:57 PM EDT [facility] Hematocrit Auto (Bld) [Volume fraction] 26.0 % Low 35.0 - 47.0 % [facility] 09-07 15:57 -0400 Hematocrit 26.0 (L) 35.0 - 47.0 % 09/08/2023 3:57 PM EDT [facility] Hemoglobin (Bld) [Mass/Vol] 8.6 g/dL Low 11.7 - 15.7 g/dL [facility] 09-07 15:57 -0400 Hemoglobin 8.6 (L) 11.7 - 15.7 g/dL 09/08/2023 3:57 PM EDT [facility] MCH Auto (RBC) [Entitic mass] 30.3 pg 26.0 - 34.0 pg [facility] 09-07 15:57 -0400 MCH 30.3 26.0 - 34.0 pg 09/08/2023 3:57 PM EDT [facility] MCHC Auto (RBC) [Mass/Vol] 33.1 g/dL 30.0 - 36.0 g/dL [facility] 09-07 15:57 -0400 MCHC 33.1 30.0 - 36.0 g/dL 09/08/2023 3:57 PM EDT [facility] MCV Auto (RBC) [Entitic vol] 92 fL 80 - 100 fL [facility] 09-07 15:57 -0400 MCV 92 80 - 100 fL 09/08/2023 3:57 PM EDT [facility] Platelet mean volume Auto (Bld) [Entitic vol] 11.2 fL 7.5 - 12.5 fL [facility] 09-07 15:57 -0400 MPV 11.2 7.5 - 12.5 fL 09/08/2023 3:57 PM EDT [facility] Platelets Auto (Bld) [#/Vol] 98 Low [facility] 09-07 15:57 -0400 Platelet Count 98 (L) 150 - 450 Thou/uL 09/08/2023 3:57 PM EDT [facility] Erythrocyte distribution width Auto (RBC) [Ratio] 17.2 % High 11.5 - 14.5 % [facility] 09-07 15:57 -0400 RDW 17.2 (H) 11.5 - 14.5 % 09/08/2023 3:57 PM EDT [facility] WBC Auto (Bld) [#/Vol] 10.2 [facility] 09-07 15:57 -0400 White Blood Cell Count 10.2 4.0 - 11.0 Thou/uL 09/08/2023 3:57 PM EDT [facility] Immature Platelet Fraction 12.3 % High 1.2 - 8.6 % [facility] 09-07 15:57 -0400 Immature Platelet Fraction 12.3 (H) 1.2 - 8.6 % 09/08/2023 3:57 PM EDT [facility] Comprehensive Metabolic Pane tammie 09-08-2023 ALT [Catalytic activity/Vol] 11 U/L 7 - 35 U/L [facility] 09-07 05:32 -0400 Alanine Aminotrans (ALT) 11 7 - 35 U/L 09/08/2023 5:32 AM EDT [facility] Albumin [Mass/Vol] 3.6 g/dL 3.4 - 4.8 g/dL [facility] 09-07 05:32 -0400 Albumin 3.6 3.4 - 4.8 g/dL 09/08/2023 5:32 AM EDT [facility] ALP [Catalytic activity/Vol] 153 U/L High 32 - 122 U/L [facility] 09-07 05:32 -0400 Alkaline Phosphatase 153 (H) 32 - 122 U/L 09/08/2023 5:32 AM EDT [facility] AST [Catalytic activity/Vol] 45 U/L High NINF - 34 U/L [facility] 09-07 05:32 -0400 Aspartate Aminotrans (AST) 45 (H) <34 U/L 09/08/2023 5:32 AM EDT [facility] Bilirubin [Mass/Vol] 0.9 mg/dL 0.3 - 1.2 mg/dL [facility] 09-07 05:32 -0400 Bilirubin, Total 0.9 0.3 - 1.2 mg/dL 09/08/2023 5:32 AM EDT [facility] Urea nitrogen/Creat inine [Mass ratio] Not calculated [facility] 09-07 05:32 -0400 BUN/Creatinine Ratio Not calculated 10.0 - 25.0 Ratio 09/08/2023 5:32 AM EDT [facility] Calcium [Mass/Vol] 8.6 mg/dL Low 8.7 - 10.5 mg/dL [facility] 09-07 05:32 -0400 Calcium 8.6 (L) 8.7 - 10.5 mg/dL 09/08/2023 5:32 AM EDT [facility] Chloride [Moles/Vol] 99 mmol/L 98 - 107 mmol/L [facility] 09-07 05:32 -0400 Chloride 99 98 - 107 mmol/L 09/08/2023 5:32 AM EDT [facility] CO2 [Moles/Vol] 29 mmol/L 20 - 31 mmol/L [facility] 09-07 05:32 -0400 CO2 29 20 - 31 mmol/L 09/08/2023 5:32 AM EDT [facility] Creatinine [Mass/Vol] 0.4 mg/dL Low 0.6 - 1.0 mg/dL [facility] 09-07 05:32 -0400 Creatinine 0.4 (L) 0.6 - 1.0 mg/dL 09/08/2023 5:32 AM T [facility] Glucose [Mass/Vol] 95 mg/dL 74 - 106 mg/dL [facility] 09-07 05:32 -0400 Glucose 95 74 - 106 mg/dL 09/08/2023 5:32 AM EDT [facility] Comment on above: Fasting: <100 mg/dL, Non-Fasting: <200 m g/dL (ADA 2005) Potassium [Moles/Vol] 3.4 mmol/L 3.4 - 4.5 mmol/L [facility] 09-07 05:32 -0400 Potassium 3.4 3.4 - 4.5 mmol/L 09/08/2023 5:32 AM [facility] Protein [Mass/Vol] 5.6 g/dL Low 5.7 - 8.2 g/dL [facility] 09-07 05:32 -0400 Protein, Total 5.6 (L) 5.7 - 8.2 g/dL 09/08/2023 5:32 AM T [facility] Sodium [Moles/Vol] 134 mmol/L Low 136 - 145 mmol/L [facility] 09-07 05:32 -0400 Sodium 134 (L) 136 - 145 mmol/L 09/08/2023 5:32 AM T [facility] Urea nitrogen [Mass/Vol] <5 >NINF mg/dL Low 9 - 23 mg/dL [facility] 09-07 05:32 -0400 Blood Urea Nitrogen (BUN) <5 (L) 9 - 23 mg/dL 09/08/2023 5:32 AM T [facility] GFR/1.73 sq M.predicted CKD-EPI (S/P/Bld) [Vol rate/Area] <PINF >90 59 - PINF [facility] 09-07 05:32 -0400 eGFR >90 >59 09/08/2023 5:32 AM T [facility] Comment on above: CKD-EPI (2020) in mL/min/1.73 sq meters. Globulin Calc (S) [Mass/Vol] 2.0 g/dL 1.5 - 3.9 g/dL [facility] 09-07 05:32 -0400 Globulin 2.0 1.5 - 3.9 g/dL 09/08/2023 5:32 AM EDT [facility] Albumin/Globul in [Mass ratio] 1.8 [facility] 09-07 05:32 -0400 Albumin/Globuli n Ratio 1.8 1.5 - 2.5 Ratio 09/08/2023 5:32 AM EDT [facility] Anion gap (Bld) [Moles/Vol] 6 5 - 15 [facility] 09-07 05:32 -0400 Anion Gap 6 5 - 15 09/08/2023 5:32 AM EDT [facility] Emergency Department (DEEDS) variableson 09-08-2023 Interpretation and review of laboratory results Abnormal [facility] 09-07 05:32 -0400 ETHAN Archive for reference on ly CTon 09-08-2023 This order has been auto-finalized and does not contain a result. [facility] 09-07 01:41 -0400 This order has been auto-finalized and does not contain a result. Heparin Assay (Anti Xa)on LMW Heparin Chromogenic method Qn (PPP) 0.32 IU/mL [facility] 09-07 10:37 -0400 Anti Xa 0.32 IU/mL 09/08/2023 10:37 AM EDT [facility] Comment on above: (NOTE) Heparin Thromboembolic/Standard/Full Dose Protocol: Therapeutic Range: Age 18+: 0.30 - 0.70 IU/mL Age 0 - 17: 0.35 - 0.70 IU/mL Heparin Cardiac/Low Dose Protocol: Therapeutic Range: 0.30 - 0.50 IU/mL Low Molecular Weight Heparin: Therapeutic Range: Age 18+: 0.50 - 1.50 IU/mL Age 0 - 17: 0.50 - 1.00 IU/mL Anticoagulant IV HEPARIN, UNFRACTIONATED [facility] 09-07 10:37 -0400 Anticoagulant IV HEPARIN, UNFRACTIONATED 09/08/2023 3:58 AM EDT [facility] [facility] 09-07 10:37 -0400 Heparin PF4 Ab Screen Reflex Serotonin Release Assayon 09-08-2023 Heparin PF4 Antibody Negative Negative [facility] 09-08 10:14 -0400 Heparin PF4 Antibody Negative Negative 09/09/2023 10:[address] [facility] Comment on above: Negative Screen, reflex testing not eric cated. [facility] 09-08 10:14 -0400 MAGNESIUMon 09-08-2023 Magnesium [Mass/Vol] 2.0 mg/dL 1.6 - 2.6 mg/dL [facility] 09-07 05:32 -0400 Magnesium 2.0 1.6 - 2.6 mg/dL 09/08/2023 5:32 AM EDT [facility] No Panel Informationon 09-07 [facility] 09-07 05:32 -0400 PHOSPHORUSon 09-08-2023 Phosphate [Mass/Vol] 2.9 mg/dL 2.4 - 5.1 mg/dL [facility] 09-07 05:32 -0400 Phosphorus 2.9 2.4 - 5.1 mg/dL 09/08/2023 5:32 AM EDT [facility] POCT Glucose, Fingerstickon 09-08-2023 Glucose (Bld) [Mass/Vol] 119 mg/dL High 65 - 99 mg/dL [facility] 09-08 00:05 -0400 POC Glucose 119 (H) 65 - 99 mg/dL 09/09/2023 12:05 AM EDT [facility] Glucose (Bld) [Mass/Vol] 119 mg/dL High 65 - 99 mg/dL [facility] 09-07 20:13 -0400 POC Glucose 119 (H) 65 - 99 mg/dL 09/08/2023 8:13 PM EDT [facility] Glucose (Bld) [Mass/Vol] 110 mg/dL High 65 - 99 mg/dL [facility] 09-07 16:23 -0400 POC Glucose 110 (H) 65 - 99 mg/dL 09/08/2023 4:23 PM EDT [facility] Glucose (Bld) [Mass/Vol] 130 mg/dL High 65 - 99 mg/dL [facility] 09-07 11:46 -0400 POC Glucose 130 (H) 65 - 99 mg/dL 09/08/2023 11:46 AM EDT [facility] Glucose (Bld) [Mass/Vol] 87 mg/dL 65 - 99 mg/dL [facility] 09-07 08:03 -0400 POC Glucose 87 65 - 99 mg/dL 09/08/2023 8:03 AM EDT [facility] Interpretation and review of laboratory results Abnormal [facility] 09-07 20:13 -0400 [facility] 09-07 20:13 -0400 Interpretation and review of laboratory results Abnormal [facility] 09-07 16:23 -0400 [facility] 09-07 16:23 -0400 Interpretation and review of laboratory results Abnormal [facility] 09-07 11:46 -0400 [facility] 09-07 11:46 -0400 [facility] 09-07 08:03 -0400 Partial Thromboplastin Time (PTT)on 09-08-2023 aPTT Coag (PPP) [Time] 78 High [facility] 09-07 19:55 -0400 Partial Thromboplastin Time (PTT) 78 (H) 26 - 37 seconds 09/08/2023 7:55 PM EDT [facility] aPTT Coag (PPP) [Time] 50 High [facility] 09-07 05:13 -0400 Partial Thromboplastin Time (PTT) 50 (H) 26 - 37 seconds 09/08/2023 5:13 AM EDT [facility] Anticoagulant ARGATROBAN (OR BIVALIRUDIN) [facility] 09-07 19:55 -0400 Anticoagulant ARGATROBAN (OR BIVALIRUDIN) 09/08/2023 4:18 PM EDT [facility] Protime-INRon 09-08-2023 INR Coag (PPP) [Relative time] 1.5 [facility] 09-07 05:13 -0400 INR 1.5 09/08/2023 5:13 AM T [facility] Comment on above: INR Therapeutic Ranges: Standard dose an ticoagulant 2.0 to 3.0, High dose anticoagulant 2.5-3.5. PT Coag (PPP) [Time] 16.6 High [facility] 09-07 05:13 -0400 Prothrombin Time (PT) 16.6 (H) 10.0 - 13.5 seconds 09/08/2023 5:13 AM T [facility] Anticoagulant IV HEPARIN, UNFRACTIONATED [facility] 09-07 05:13 -0400 Anticoagulant IV HEPARIN, UNFRACTIONATED 09/08/2023 3:27 AM T [facility] Triglycerideson 09-08-2023 Triglyceride [Mass/Vol] 174 mg/dL High NINF - 150 mg/dL [facility] 09-07 05:32 -0400 Triglycerides 174 (H) <150 mg/dL 09/08/2023 5:32 AM EDT [facility] US Venous Duplex Legs-Bilate ral (DVT)on 09-08-2023 [...] No evidence of acute deep vein thrombosis. [facility] 09-07 17:09 -0400 Madhu Rider MD - [...] deep vein thrombosis. Radiology Study observation (narrative) [facility] US Venous Duplex Legs-Bilate ral (DVT)Ordered By: Madhu Rider on 09-08-2023 [facility] Work Phone: 09-07 17:09 -0400 XR Chest [...] acute abnormalities. IMPRESSION: Similar to previous study. [facility] 09-07 14:26 -0400 Yogesh Calvillo MD - 09/08/2023 CLINICAL INFORMATION: Hypoxia COMPARISON: CXR - 09/07/23. TECHNIQUE: AP view of the chest. FINDINGS: Heart/Mediastin um: The cardiac silhouette is unchanged. The mediastinal contours are relatively stable. Lungs: Persistent retrocardiac and right infrahilar/basi lar opacities, similar to previous study. No effusion is evident. Osseous Structures: No acute abnormalities. IMPRESSION: Similar to previous study. [facility] 09-07 14:26 -0400 Radiology Study observation (narrative) [facility] Amylaseon 09-07-2023 Amylase [Catalytic activity/Vol] 90 U/L 30 - 118 U/L [facility] 09-06 23:24 -0400 Amylase 90 30 - 118 U/L 09/07/2023 11:24 PM EDT [facility] B-type Natriuretic Peptideon 09-07-2023 Natriuretic peptide B [Mass/Vol] 49 pg/mL 0 - 99 pg/mL [facility] 09-06 23:17 -0400 B-Type Natriuretic Peptide 49 0 - 99 pg/mL 09/07/2023 11:17 PM EDT [facility] Complete Blood Count, with D ifferentialon 09-07-2023 Basophils Auto (Bld) [#/Vol] 0.05 [facility] 09-06 23:07 -0400 Abs Basophils Auto 0.05 0.00 - 0.20 Thou/uL 09/07/2023 11:07 PM EDT [facility] Basophils/100 WBC Auto (Bld) 0.5 % [facility] 09-06 23:07 -0400 Basophils Auto 0.5 % 09/07/2023 11:07 PM EDT [facility] Eosinophils Auto (Bld) [#/Vol] 0.09 [facility] 09-06 23:07 -0400 Abs Eosinophils Auto 0.09 0.00 - 0.70 Thou/uL 09/07/2023 11:07 PM EDT [facility] Eosinophils/10 0 WBC Auto (Bld) 0.9 % [facility] 09-06 23:07 -0400 Eosinophils Auto 0.9 % 09/07/2023 11:07 PM EDT [facility] RBC Auto (Bld) [#/Vol] 3.04 Low [facility] 09-06 23:07 -0400 Red Blood Cell Count 3.04 (L) 4.00 - 5.40 Mil/uL 09/07/2023 11:07 PM EDT [facility] Hematocrit Auto (Bld) [Volume fraction] 27.7 % Low 35.0 - 47.0 % [facility] 09-06 23:07 -0400 Hematocrit 27.7 (L) 35.0 - 47.0 % 09/07/2023 11:07 PM EDT [facility] Hemoglobin (Bld) [Mass/Vol] 9.3 g/dL Low 11.7 - 15.7 g/dL [facility] 09-06 23:07 -0400 Hemoglobin 9.3 (L) 11.7 - 15.7 g/dL 09/07/2023 11:07 PM EDT [facility] Lymphocytes Auto (Bld) [#/Vol] 1.53 [facility] 09-06 23:07 -0400 Abs Lymphocytes Auto 1.53 1.50 - 4.50 Thou/uL 09/07/2023 11:07 PM EDT [facility] Lymphocytes/10 0 WBC Auto (Bld) 15.1 % [facility] 09-06 23:07 -0400 Lymphocytes Auto 15.1 % 09/07/2023 11:07 PM EDT [facility] MCH Auto (RBC) [Entitic mass] 30.6 pg 26.0 - 34.0 pg [facility] 09-06 23:07 -0400 MCH 30.6 26.0 - 34.0 pg 09/07/2023 11:07 PM EDT [facility] MCHC Auto (RBC) [Mass/Vol] 33.6 g/dL 30.0 - 36.0 g/dL [facility] 09-06 23:07 -0400 MCHC 33.6 30.0 - 36.0 g/dL 09/07/2023 11:07 PM EDT [facility] MCV Auto (RBC) [Entitic vol] 91 fL 80 - 100 fL [facility] 09-06 23:07 -0400 MCV 91 80 - 100 fL 09/07/2023 11:07 PM EDT [facility] Monocytes Auto (Bld) [#/Vol] 1.13 [facility] 09-06 23:07 -0400 Abs Monocytes Auto 1.13 0.20 - 1.50 Thou/uL 09/07/2023 11:07 PM EDT [facility] Monocytes/100 WBC Auto (Bld) 11.1 % [facility] 09-06 23:07 -0400 Monocytes Auto 11.1 % 09/07/2023 11:07 PM EDT [facility] Neutrophils Auto (Bld) [#/Vol] 7.01 [facility] 09-06 23:07 -0400 Abs Neutrophils Auto 7.01 2.00 - 7.50 Thou/uL 09/07/2023 11:07 PM EDT [facility] Neutrophils/10 0 WBC Auto (Bld) 69.1 % [facility] 09-06 23:07 -0400 Neutrophils Auto 69.1 % 09/07/2023 11:07 PM EDT [facility] Nucleated RBC/100 WBC Auto (Bld) [Ratio] 0.6 High [facility] 09-06 23:07 -0400 nRBC 0.6 (H) 0.0 - 0.1 /100 WBC 09/07/2023 11:07 PM EDT [facility] Platelet mean volume Auto (Bld) [Entitic vol] 10.7 fL 7.5 - 12.5 fL [facility] 09-06 23:07 -0400 MPV 10.7 7.5 - 12.5 fL 09/07/2023 11:07 PM EDT [facility] Platelets Auto (Bld) [#/Vol] 83 Low [facility] 09-06 23:07 -0400 Platelet Count 83 (L) 150 - 450 Thou/uL 09/07/2023 11:07 PM EDT [facility] Erythrocyte distribution width Auto (RBC) [Ratio] 16.9 % High 11.5 - 14.5 % [facility] 09-06 23:07 -0400 RDW 16.9 (H) 11.5 - 14.5 % 09/07/2023 11:07 PM EDT [facility] WBC Auto (Bld) [#/Vol] 10.2 [facility] 09-06 23:07 -0400 White Blood Cell Count 10.2 4.0 - 11.0 Thou/uL 09/07/2023 11:07 PM EDT [facility] Nucleated RBC Auto (Bld) [#/Vol] 0.06 High [facility] 09-06 23:07 -0400 nRBC, Absolute 0.06 (H) 0.00 - 0.02 Thou/uL 09/07/2023 11:07 PM T [facility] Immature Platelet Fraction 6.9 % 1.2 - 8.6 % [facility] 09-06 23:07 -0400 Immature Platelet Fraction 6.9 1.2 - 8.6 % 09/07/2023 11:07 PM EDT [facility] Immature granulocytes/1 00 WBC Auto (Bld) 3.3 % [facility] 09-06 23:07 -0400 Immature Granulocytes 3.3 % 09/07/2023 11:07 PM EDT [facility] Immature granulocytes Auto (Bld) [#/Vol] 0.34 High [facility] 09-06 23:07 -0400 Abs Immature Granulocytes 0.34 (H) 0.00 - 0.10 Thou/uL 09/07/2023 11:07 PM EDT [facility] Comprehensive Metabolic Pane l (STAT)on 09-07-2023 ALT [Catalytic activity/Vol] 10 U/L 7 - 35 U/L [facility] 09-06 23:24 -0400 Alanine Aminotrans (ALT) 10 7 - 35 U/L 09/07/2023 11:24 PM EDT [facility] Albumin [Mass/Vol] 3.7 g/dL 3.4 - 4.8 g/dL [facility] 09-06 23:24 -0400 Albumin 3.7 3.4 - 4.8 g/dL 09/07/2023 11:24 PM EDT [facility] ALP [Catalytic activity/Vol] 140 U/L High 32 - 122 U/L [facility] 09-06 23:24 -0400 Alkaline Phosphatase 140 (H) 32 - 122 U/L 09/07/2023 11:24 PM EDT [facility] AST [Catalytic activity/Vol] 41 U/L High NINF - 34 U/L [facility] 09-06 23:24 -0400 Aspartate Aminotrans (AST) 41 (H) <34 U/L 09/07/2023 11:24 PM EDT [facility] Bilirubin [Mass/Vol] 1.0 mg/dL 0.3 - 1.2 mg/dL [facility] 09-06 23:24 -0400 Bilirubin, Total 1.0 0.3 - 1.2 mg/dL 09/07/2023 11:24 PM EDT [facility] Urea nitrogen/Creat inine [Mass ratio] Not calculated [facility] 09-06 23:24 -040 BUN/Creatinine Ratio Not calculated 10.0 - 25.0 Ratio 09/07/2023 11:24 PM EDT [facility] Calcium [Mass/Vol] 8.5 mg/dL Low 8.7 - 10.5 mg/dL [facility] 09-06 23:24 -0400 Calcium 8.5 (L) 8.7 - 10.5 mg/dL 09/07/2023 11:24 PM EDT [facility] Chloride [Moles/Vol] 98 mmol/L 98 - 107 mmol/L [facility] 09-06 23:24 -0400 Chloride 98 98 - 107 mmol/L 09/07/2023 11:24 PM EDT [facility] CO2 [Moles/Vol] 30 mmol/L 20 - 31 mmol/L [facility] 09-06 23:24 -0400 CO2 30 20 - 31 mmol/L 09/07/2023 11:24 PM EDT [facility] Creatinine [Mass/Vol] 0.4 mg/dL Low 0.6 - 1.0 mg/dL [facility] 09-06 23:24 -0400 Creatinine 0.4 (L) 0.6 - 1.0 mg/dL 09/07/2023 11:24 PM EDT [facility] Glucose [Mass/Vol] 107 mg/dL High 74 - 106 mg/dL [facility] 09-06 23:24 -0400 Glucose 107 (H) 74 - 106 mg/dL 09/07/2023 11:24 PM EDT [facility] Comment on above: Fasting: <100 mg/dL, Non-Fasting: <200 m g/dL (ADA 2005) Fasting: <100 mg/dL, Non-Fasting: <200 mg/dL (ADA 2005) CORRECTED ON 09/06 AT 2324: PREVIOUSLY REPORTED 107 Fasting: <100 mg/dL, Non Fasting: <200 mg/dL (ADA 2005) Potassium [Moles/Vol] 2.8 mmol/L Critically low 3.4 - 4.5 mmol/L [facility] 09-06 23:24 -0400 Potassium 2.8 (LL) 3.4 - 4.5 mmol/L 09/07/2023 11:24 PM EDT [facility] Comment on above: Critical result called to and read back by BEVERLEY Ring [email or web address] 09.07.23 RAMÍREZ Pool Protein [Mass/Vol] 5.7 g/dL 5.7 - 8.2 g/dL [facility] 09-06 23:24 -0400 Protein, Total 5.7 5.7 - 8.2 g/dL 09/07/2023 11:24 PM EDT [facility] Sodium [Moles/Vol] 135 mmol/L Low 136 - 145 mmol/L [facility] 09-06 23:24 -0400 Sodium 135 (L) 136 - 145 mmol/L 09/07/2023 11:22 PM EDT [facility] Urea nitrogen [Mass/Vol] <5 >NINF mg/dL Low 9 - 23 mg/dL [facility] 09-06 23:24 -0400 Blood Urea Nitrogen (BUN) <5 (L) 9 - 23 mg/dL 09/07/2023 11:24 PM EDT [facility] GFR/1.73 sq M.predicted CKD-EPI (S/P/Bld) [Vol rate/Area] <PINF >90 59 - PINF [facility] 09-06 23:24 -0400 eGFR >90 >59 09/07/2023 11:24 PM EDT [facility] Comment on above: CKD-EPI (2020) in mL/min/1.73 sq meters. Globulin Calc (S) [Mass/Vol] 2.0 g/dL 1.5 - 3.9 g/dL [facility] 09-06 23:24 -0400 Globulin 2.0 1.5 - 3.9 g/dL 09/07/2023 11:24 PM EDT [facility] Albumin/Globul in [Mass ratio] 1.8 [facility] 09-06 23:24 -0400 Albumin/Globuli n Ratio 1.8 1.5 - 2.5 Ratio 09/07/2023 11:22 PM EDT [facility] Anion gap (Bld) [Moles/Vol] 7 5 - 15 [facility] 09-06 23:24 -0400 Anion Gap 7 5 - 15 09/07/2023 11:22 PM EDT [facility] ECG 12 leadOrdered By: Neel Carreno on 09-07-2023 Ventricular rate 114 BPM [facility] Work Phone: [phone] 09-07 11:37 -0400 Ventricular rate 114 BPM EKG [facility] Atrial rate 114 BPM [facility] Work Phone: [phone] 09-07 11:37 -0400 Atrial rate 114 BPM EKG [facility] QRS duration 82 ms [facility] Work Phone: [phone] 09-07 11:37 -0400 QRS duration 82 ms EKG [facility] QTC calculation (Bazett) 562 ms [facility] Work Phone: [phone] 09-07 11:37 -0400 QTC calculation (Bazett) 562 ms EKG [facility] P axis 41 degrees [facility] Work Phone: [phone] 09-07 11:37 -0400 P axis 41 degrees EKG [facility] R axis 39 degrees [facility] Work Phone: [phone] 09-07 11:37 -0400 R axis 39 degrees EKG [facility] T axis -12 degrees [facility] Work Phone: [phone] 09-07 11:37 -0400 T axis -12 degrees EKG [facility] Work Phone: [phone] 09-07 11:37 -0400 ECG 12 leadon 09-07-[address] and T wave abnormality Prolonged QT Abnormal ECG No previous ECGs available Confirmed by MD Carreno Joseph ([id number]) on 09/08/2023 11:37:13 AM EKG [facility] 09-07 11:37 -[address] and T wave abnormality Prolonged QT Abnormal ECG No previous ECGs available Confirmed by MD Carreno Joseph ([id number]) on 09/08/2023 11:37:13 AM Sherwin Carreno MD - 09/08/[address] and T wave abnormality Prolonged QT Abnormal ECG No previous ECGs available Confirmed by MD Carreno Joseph ([id number]) on 09/08/2023 11:37:13 AM [facility] 09-07 11:37 -0400 Sherwin Carreno MD - 09/08/[address] and T wave abnormality Prolonged QT Abnormal ECG No previous ECGs available Confirmed by MD Carreno Joseph ([id number]) on 09/08/2023 11:37:13 AM Emergency Department (DEEDS) variableson 09-07-2023 Interpretation and review of laboratory results Abnormal [facility] 09-06 23:25 -0400 ETHAN Archive for reference on ly CRon 09-07-2023 This order has been auto-finalized and does not contain a result. [facility] 09-06 20:20 -0400 This order has been auto-finalized and does not contain a result. Lactic Acid, Plasma (STAT)on 09-07-2023 Lactate [Moles/Vol] 0.8 mmol/L 0.5 - 1.9 mmol/L [facility] 09-06 23:12 -0400 Lactic Acid 0.8 0.5 - 1.9 mmol/L 09/07/2023 11:12 PM EDT [facility] Lipaseon 09-07-2023 Lipase [Catalytic activity/Vol] 96 U/L High 12 - 53 U/L [facility] 09-06 23:24 -0400 Lipase 96 (H) 12 - 53 U/L 09/07/2023 11:24 PM EDT [facility] Magnesiumon 09-07-2023 Magnesium [Mass/Vol] 1.9 mg/dL 1.6 - 2.6 mg/dL [facility] 09-06 23:24 -0400 Magnesium 1.9 1.6 - 2.6 mg/dL 09/07/2023 11:24 PM EDT [facility] No Panel Informationon 09-06 [facility] 09-06 23:25 -0400 POCT, Blood Gas, Venouson Sample Type VENOUS [facility] 09-06 23:02 -0400 Sample Type VENOUS 09/07/2023 11:02 PM EDT [facility] pH (BldV) 7.55 [facility] 09-06 23:02 -0400 Venous Blood PH 7.55 09/07/2023 11:02 PM EDT [facility] CO2 (BldV) [Partial pressure] 36 mmHG [facility] 09-06 23:02 -0400 Venous pCO2 36 mmHG 09/07/2023 11:02 PM EDT [facility] Oxygen (BldV) [Partial pressure] 73 mmHG [facility] 09-06 23:02 -0400 Venous pO2 73 mmHG 09/07/2023 11:02 PM EDT [facility] HCO3, Ash 32.0 mmol/L [facility] 09-06 23:02 -0400 HCO3, Ash 32.0 mmol/L 09/07/2023 11:02 PM EDT [facility] SaO2% Calculated from oxygen partial pressure (BldV) [Mass fraction] 99.0 % [facility] 09-06 23:02 -0400 O2 Saturation, Venous 99.0 % 09/07/2023 11:02 PM EDT [facility] Base Excess 8.7 mmol/L [facility] 09-06 23:02 -0400 Base Excess 8.7 mmol/L 09/07/2023 11:02 PM EDT [facility] Liter Flow, I-STAT 2.0 [facility] 09-06 23:02 -0400 Liter Flow, I-STAT 2.0 09/07/2023 11:02 PM EDT [facility] Comment VENOUS [facility] 09-06 23:02 -0400 Comment VENOUS 09/07/2023 11:02 PM EDT [facility] PROCALCITONINon 09-07-2023 Procalcitonin IA [Mass/Vol] 18.68 ng/mL High NINF - 0.05 ng/mL [facility] 09-07 01:03 -0400 Procalcitonin 18.68 (H) <0.05 ng/mL 09/08/2023 1:03 AM EDT [facility] Interpretation and review of laboratory results Abnormal [facility] 09-07 01:03 -0400 [facility] 09-07 01:03 -0400 Protime-INR (Routine)on INR Coag (PPP) [Relative time] 1.4 [facility] 09-06 23:25 -0400 INR 1.4 09/07/2023 11:25 PM EDT [facility] Comment on above: INR Therapeutic Ranges: Standard dose an ticoagulant 2.0 to 3.0, High dose anticoagulant 2.5-3.5. PT Coag (PPP) [Time] 16.2 High [facility] 09-06 23:25 -0400 Prothrombin Time (PT) 16.2 (H) 10.0 - 13.5 seconds 09/07/2023 11:25 PM EDT [facility] Anticoagulant IV HEPARIN, UNFRACTIONATED, BEING HELD [facility] 09-06 23:25 -0400 Anticoagulant IV HEPARIN, UNFRACTIONATED, BEING HELD 09/07/2023 10:59 PM EDT [facility] Troponin I, High Sensitivity (STAT)on 09-07-2023 Troponin I.cardiac DL <= 0.01 ng/mL [Mass/Vol] 7 ng/L NINF - 34 ng/L [facility] 09-06 23:16 -0400 Troponin I, High Sensitivity 7 <34 ng/L 09/07/2023 11:16 PM EDT [facility] Delta (HS Troponin I) NO PREVIOUS RESULT [facility] 09-06 23:16 -0400 Delta (HS Troponin I) NO PREVIOUS RESULT 09/07/2023 11:16 PM EDT [facility] Urinalysis with Reflex to Mi croscopicon 09-07-2023 RBC LM.HPF (Urine sed) [#/Area] 71 High [facility] 09-06 23:22 -0400 RBC 71 (H) 0 - 4 per hpf 09/07/2023 11:22 PM EDT [facility] Hemoglobin Test strip Ql (U) Large Abnormal Negative [facility] 09-06 23:22 -0400 Blood Large (A) Negative 09/07/2023 11:22 PM EDT [facility] Hyaline casts LM.LPF (Urine sed) [#/Area] 0 [facility] 09-06 23:22 -0400 Hyaline Casts 0 0 - 4 per lpf 09/07/2023 11:22 PM EDT [facility] Leukocyte esterase Test strip Ql (U) Negative Negative [facility] 09-06 23:22 -0400 Leukocyte Esterase Negative Negative 09/07/2023 11:22 PM EDT [facility] WBC LM.HPF (Urine sed) [#/Area] 2 [facility] 09-06 23:22 -0400 WBC 2 0 - 4 per hpf 09/07/2023 11:22 PM EDT [facility] Nitrite Test strip Ql (U) Negative Negative [facility] 09-06 23:22 -0400 Nitrite Negative Negative 09/07/2023 11:22 PM EDT [facility] Protein Test strip (U) [Mass/Vol] Small (30 mg/dL) Abnormal Negative [facility] 09-06 23:22 -0400 Protein Small (30 mg/dL) (A) Negative 09/07/2023 11:22 PM EDT [facility] Specific gravity Test strip (U) [Rel density] 1.013 1.003 - 1.030 [facility] 09-06 23:22 -0400 Specific [place] 1.013 1.003 - 1.030 09/07/2023 11:22 PM EDT [facility] Epithelial cells.squamous LM.HPF (Urine sed) [#/Area] 3 per hpf [facility] 09-06 23:22 -0400 Squamous Epithelial Cells 3 per hpf 09/07/2023 11:22 PM EDT [facility] Clarity (U) Clear [facility] 09-06 23:22 -0400 Clarity Clear 09/07/2023 11:22 PM EDT [facility] Color (U) Yellow [facility] 09-06 23:22 -0400 Color Yellow 09/07/2023 11:22 PM EDT [facility] pH Test strip (U) 8.5 High 5.0 - 8.0 [facility] 09-06 23:22 -0400 pH 8.5 (H) 5.0 - 8.0 09/07/2023 11:22 PM EDT [facility] Glucose Test strip (U) [Mass/Vol] Negative 0 - 99 mg/dL [facility] 09-06 23:22 -0400 Glucose Negative 0 - 99 mg/dL 09/07/2023 11:22 PM EDT [facility] Ketones Test strip (U) [Mass/Vol] Negative Negative [facility] 09-06 23:22 -0400 Ketones Negative Negative 09/07/2023 11:22 PM EDT [facility] Urobilinogen Test strip (U) [Mass/Vol] 1.0 EU/dL 0.2 - 1.0 EU/dL [facility] 09-06 23:22 -0400 Urobilinogen 1.0 0.2 - 1.0 EU/dL 09/07/2023 11:22 PM EDT [facility] Bilirubin Test strip (U) [Mass/Vol] Negative Negative [facility] 09-06 23:22 -0400 Bilirubin Negative Negative 09/07/2023 11:22 PM EDT [facility] Bacteria LM Ql (Urine sed) Negative Negative [facility] 09-06 23:22 -0400 Bacteria Negative Negative 09/07/2023 11:22 PM EDT [facility] XR Chest 1 view-Portableon 0 09-07-2023 Mild [...] resident's interpretation and agree with the findings. [facility] 09-07 07:24 -0400 Yogesh Calvillo MD - [...] with the findings. Radiology Study observation (narrative) [facility] XR Chest 1 view-PortableOrde red By: Yogesh Calvillo on 09-07-2023 [facility] Work Phone: 09-07 07:28 -0400 No Panel Information APPT STATUS (PVISIT) : [id number]~(S OT) SEXUAL ORIENTATION: Heterosexual (straight)~(CRAIG T_STATUS) APPT STATUS: 6 [facility] APPT STATUS (PVISIT) : [id number]~(S OT) SEXUAL ORIENTATION: Heterosexual (straight)~(CRAIG T_STATUS) APPT STATUS: 1 [facility] (PVISIT) : [id number] [facility] SEXUAL ORIENTATION (PVISIT) : [id number]~(S OT) SEXUAL ORIENTATION: Heterosexual (straight) [facility] REG ADDL ENC CATEGORY 1 (PVISIT) : [id number]~(S OT) SEXUAL ORIENTATION: Heterosexual (straight)~(PCP NOTIFY) REG ADDL ENC CATEGORY 1: Yes-notify [facility] Social History Date Type Detail Facility Start: 09-08-2023 Tobacco smoking status NHIS Ex-smoker [facility] Work Phone: Start: 09-08-2023 Tobacco use and exposure Smokeless tobacco non-user [facility] Start: 09-08-2023 Alcohol intake Current drinker of alcohol (finding) [facility] Start: 09-08-2023 History of Social function [facility] Work Phone: Start: 09-08-2023 [facility] Utilities [facility] Work Phone: Start: 09-07-2023 Gender identity Identifies as female gender (finding) [facility] Start: 09-07-2023 Sexual orientation Heterosexual (finding) [facility] re Start: 09-07-2023 Alcohol Comment 10-12 nips per day [facility] Start: 1995 [facility] History of tobacco use Current smoker [facility] History of tobacco use Cigarette Smoker [facility] Has the [facility], or [facility] threatened to shut off services in your home in past 12Mo No [facility] Work Phone: How often to you hav e a drink containing alcohol? 4 or more times a week [facility] Work Phone: How many standard dr inks containing alcohol do you have on a typical day? 10 or more [facility] How often do you hav e 6 or more drinks on 1 occasion? Daily or almost daily [facility] How hard is it for y ou to pay for the very basics like food, housing, medical care, and heating Not very hard [facility] (I/We) worried carey er (my/our) food would run out before (I/we) got money to buy more. Never true [facility] In the past 12 month s, has lack of transportation kept you from medical appointments or from getting medications? No [facility] Vital Signs Date Time Vital Sign Value Performing Clinician Facility 09-15-2023 08:03-0400 Body temperature 97.9 [degF] Jarocho Abbasi MD Work Phone: [facility] 09-15-2023 08:03-0400 BP (Blood pressure) 124/74mm[Hg] Jarocho Abbasi MD Work Phone: [facility] 09-15-2023 08:03-0400 Heart rate 101 /min Jarocho Abbasi MD Work Phone: [facility] 09-15-2023 08:03-0400 Respiratory rate 18 /min Jarocho Abbasi MD Work Phone: [facility] 09-15-2023 08:03-0400 SaO2% (BldA) [Mass fraction] 100 % Jarocho Abbasi MD Work Phone: [facility] 09-10-2023 05:00-0400 Body mass index (BMI) [Ratio] 26.94 kg/m2 Jarocho Abbasi MD Work Phone: [facility] 09-10-2023 05:00-0400 Body weight 71.2 kg Jarocho Abbasi MD Work Phone: [facility] 09-08-2023 04:00-0400 Body height 162.6 cm Jarocho Abbasi MD Work Phone: [facility] Clinical Notes 09-07-2023 to 09-15-2023 Radha Bojorquez [...] and alcohol??Use?disorder who presented on 09/03/2023 to [facility] with severe abdominal pain, nausea, and vomiting. ?She was found to have pancreatitis that evolved into necrotizing pancreatitis. 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 ?She was transferred to [facility] for higher level of care. ? #?Acute?Necrotizing pancreatitis?2/2 alcohol use disorder # Bright red blood per rectum -?On admission?to?[facility]?patient was?found to have interstitial pancreatitis with hepatic steatosis, minimal free fluid within the pelvis, and early necrosis along with elevated lipase. -??CT a/p?09/06 showed extensive necrotizing pancreatitis along with a pancreatic fluid collection. - Patient transferred to [facility] ICU - there appears to have been [...] morning. I discussed the patient's care with pin drafter operator, Dr. Gill. At this time we will [...] a fax of the discharge summary to [phone] PCP office contact phone number is Plan: [...] mg, 100 mg, Oral, TID, Carla Gonzalez, VOLUNTEER RECRUITMENT COORDINATOR, 100 mg at 09/14/23 0945 senna-docusate (SENNA-S) [...] 100 mg #30 capsules sent to the [facility] outpatient pharmacy to fill prior to going home to [place] - transition care to PCP upon discharge [...] - I have personally reviewed the CT INDEPENDENT TRADER on 09/14/23 - Documenting in the patient [...] Patel APRN 09/14/2023 11:27 AM Available via SmartVault Chief Complaint: Abdominal pain Subjective Seen examined [...] and alcohol??Use?disorder who presented on 09/03/2023 to [facility] with severe abdominal pain, nausea, and vomiting. ?She was found to have pancreatitis that evolved into necrotizing pancreatitis. 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 ?She was transferred to [facility] for higher level of care. ? #?Acute?Necrotizing pancreatitis?2/2 alcohol use disorder -?On admission?to?[facility]?patient was?found to have interstitial pancreatitis with hepatic steatosis, minimal free fluid within the pelvis, and early necrosis along with elevated lipase. -??CT a/p?09/06 showed extensive necrotizing pancreatitis along with a pancreatic fluid collection. - Patient transferred to [facility] ICU - there appears to have been [...] be continued by her PCP back in [place]. -Patient will need continued monitoring of hemoglobin [...] control medications when she does return to [place] Madelyn Adames DO 09/13/2023 5:03 PM I [...] to 7-day prescription for opiate-based medications per [place] state guidelines During the day of the [...] - I have personally reviewed the CT INDEPENDENT TRADER - Documenting in the patient record - Reviewing labs & radiology - Medication reconciliation with parenteral medication to be instituted in terms of IV morphine - Counseling including medication side effects and dependency potential Carla Gonzalez APRN 09/13/2023 12:29 PM Available via SmartVault Summary: Pharmacy IV to PO Interchange Corrine [...] Bowens Title: Pharmacist Automatic Intravenous to Oral Conversion_[facility] Purpose: Agents included in this policy are [...] met. The Pharmacist Automatic Antimicrobial Renal Dose Adjustment_[facility] should be referenced for dosing recommendations for [...] ivent is a means of documentation in [facility] viewable only to pharmacists. Called by medicine [...] to 7-day prescription for opiate-based medications per [place] state guidelines During the day of the [...] - I have personally reviewed the CT INDEPENDENT TRADER - Documenting in the patient record - Reviewing labs & radiology - Medication reconciliation with parenteral medication to be instituted in terms of IV morphine - Counseling including medication side effects and dependency potential Carla Gonzalez APRN 09/12/2023 11:57 AM Available via SmartVault Images from the original note were not [...] Gen: Young female laying in bed in [facility] ENT:No oral lesions moist oral [...] Use disorder who presented on 09/03/2023 to [facility] with severe abdominal pain, nausea, and vomiting. ?She was found to have pancreatitis that evolved into necrotizing pancreatitis. 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 ?She was transferred to [facility] for higher level of care. ? #?Acute Necrotizing pancreatitis 2/2 alcohol use disorder - On admission to [facility] patient was found to have interstitial pancreatitis with hepatic steatosis, minimal free fluid within the pelvis, and early necrosis along with elevated lipase. - CT a/p 09/06 showed extensive necrotizing pancreatitis along with a pancreatic fluid collection. - Patient transferred to [facility] ICU - there appears to have been [...] to 7-day prescription for opiate-based medications per [place] state guidelines During the day of the [...] - I have personally reviewed the CT INDEPENDENT TRADER on 09/11/23 - Documenting in the patient record - Reviewing labs & radiology - Medication reconciliation with parenteral medication to be instituted in terms of IV morphine - Counseling including medication side effects and dependency potential Carla Gonzalez APRN 09/11/2023 1:11 PM Available via [employer]Vault Chief Complaint: Acute pancreatitis Subjective Patient seen [...] Use disorder who presented on 09/03/2023 to [facility] with severe abdominal pain, nausea, and vomiting. She was found to have pancreatitis that evolved into necrotizing pancreatitis. Her course has been complicated by portal vein and splenic vein thrombosis. She was transferred to [facility] for higher level of care. ? # Acute Necrotizing pancreatitis 2/2 alcohol use disorder - On admission to [facility] patient was found to have interstitial pancreatitis with hepatic steatosis, minimal free fluid within the pelvis, and early necrosis along with elevated lipase. - CT a/p 09/06 showed extensive necrotizing pancreatitis along with a pancreatic fluid collection. - Patient transferred to [facility] ICU - there appears to have been [...] alcohol disorder who presented on 09/03/2023 to [facility] with severe abdominal pain, nausea, and vomiting. She was found to have pancreatitis that evolved into necrotizing pancreatitis. Her course has been complicated by portal vein and splenic vein thrombosis. She was transferred to [facility] for higher level of care. On admission [...] the patient transferring back to hospital in [place] for closer social support as family is [...] Medicine, PGY-1 09/10/2023 5:25 PM Available on Echola Text Summary: Family Communication Spoke with the patient's aunt at bedside. Provided updates and answered questions. They expressed that they would like for the patient to be transferred back to [place] if she is on the general medicine floor. RN stated that she spoke with the patient's mother and patient's father as well. Keshav Sosa MD Internal Medicine, PGY-1 09/10/2023 3:49 PM Available on [employer]ch[employer] Text Images from the original note were [...] concerns. Carlee Moraes MD Acute Care/Trauma Surgery [phone] Critical Care Progress Note HPI / Subjective 28 y o F w ongoing alcohol abuse, anxiety, tubal ligation presents on 09/06 as a transfer from [facility] for management of acute necrotizing [...] are interested in being transferred back to [place] as soon as possible for social support. [...] alcohol disorder who presented on 09/03/2023 to [facility] with severe abdominal pain, nausea, and vomiting. She was found to have pancreatitis that evolved into necrotizing pancreatitis. Her course has been complicated by portal vein and splenic vein thrombosis. She was transferred to [facility] for higher level of care. Neuro/Psych: Alcohol [...] Medicine, PGY-1 09/10/2023 6:34 AM Available on [employer]ch[employer] Text Associated attestation - Madelyn Hernandez MD - 09/10/2023 2:00 PM EDT Attestation to the resident note with the same day of service: I have seen and examined the patient. I have reviewed the relevant labs, radiologic studies and strategic consultant notes. Please refer to my note. [...] history of alcohol use disorder presented from [facility] on 09/03/2023, with severe abdominal pain nausea and vomiting diagnosed with pancreatitis complicated by necrotizing pancreatitis, portal vein and splenic vein thrombosis transferred to [facility] Neurological Alert and x 3 Alcohol use disorder Usually drinks 8-9 nips of rum every month. Has been drinking alcohol since 7 years. S/p phenobarbital protocol at [facility]. -Continue with thiamine multivitamin folic acid daily Cardiology Sinus tachycardia -Around 110s to 115, could be possibly from pain Respiratory Acute hypoxic respiratory failure-resolved -Secondary pleural effusion could be from pancreatitis. -Currently on room air -Active mobilization. 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 Efforts were made by me [...] reviewed the relevant labs, radiologic studies and strategic consultant notes. Please refer to my note. [...] presents on 09/06 as a transfer from [facility] for management of acute necrotizing [...] presents on 09/06 as a transfer from [facility] for management of acute necrotizing [...] alcohol, however was 438 on admission at [facility], now with PV and asplenic [...] wheezing Abd is soft, painful on palpation [place] sign (multiple pre-ecchymotic spots) No leg swelling [...] alcohol disorder who presented on 09/03/2023 to [facility] with severe abdominal pain, nausea, and vomiting. She was found to have pancreatitis that evolved into necrotizing pancreatitis. Her course has been complicated by portal vein and splenic vein thrombosis. She was transferred to [facility] for higher level of care. Neuro/Psych: Alcohol use disorder Reported that she drank about 8-9 nips of rum every day for the last month. She has been drinking alcohol for the last 7 years. Was on the phenobarbital protocol at [facility]. Alert and oriented x 3 - Will [...] telemetry GI: Necrotizing pancreatitis Admission CT at [facility] showed acute interstitial pancreatitis with hepatic steatosis, [...] 86. Down from 438 on admission at [facility]. Most likely secondary to inflammatory process. - [...] Medicine, PGY-1 09/08/2023 1:44 PM Available on [email or web address] Text Associated attestation - Madelyn Hernandez MD - 09/10/2023 1:48 PM EDT Attestation to the resident note with the same day of service: I have seen and examined the patient. I have reviewed the relevant labs, radiologic studies and strategic consultant notes. Please refer to my note. documented in this encounter [facility] 09-15-2023 Plan of care note Plan of Care Reviewed With: patient Progress: improving Outcome Evaluation: Pt. awake, alert, ambulating in hallway independently. Appetite: Excellent. Pt. reports pain abdominal area. Pain meds administered as ordered. Pt. reports 3 bowel movements last evening and no blood in stool. Pt. reports boyfriend coming from [employer]. to pick her up for discharge. Pt. has insurance from [facility]. Spoke with MD and CM regarding pts ability to pay for prescribed meds. CM met with pt. and they will have the meds paid for. Ghazala Herron 09/15/2023 11:47 AM [facility] Work Phone: 09-15-2023 Miscellaneous Notes Plan of Care Reviewed With: patient Progress: improving Outcome Evaluation: Pt. awake, alert, ambulating in hallway independently. Appetite: Excellent. Pt. reports pain abdominal area. Pain meds administered as ordered. Pt. reports 3 bowel movements last evening and no blood in stool. Pt. reports boyfriend coming from [facility]. to pick her up for discharge. Pt. has insurance from [facility]. Spoke with MD and CM regarding pts [...] time of admin IV, pt requested icepack. SECURED ENTRANCE MONITOR called and ice pack given to patient. Outcome Evaluation: Assumed care of pt at 2330. pt in bed. Ice pack refilled per pt request. Snack and sandwich given per pt request. Roxanol admin per order x1 this shift, Morphine 3mg IV admin x1 for breakthrough pain. At time of admin IV, pt requested icepack. SECURED ENTRANCE MONITOR called and ice pack given to patient. [...] 6:52 AM Met with pt in room [facility]. Introduced NCM role. Has PCP in [place]. Pt will need transport home upon discharge. [...] Care Review Outcome: Progressing Flowsheets (Taken 09/10/2023 6275) Plan of Care Reviewed With: patient Outcome [...] 28F significant daily alcohol use, presented to [facility] with abdominal pain, vomiting, found to [...] Summary: Met with patient; admitted 09/06 from [facility] for management of acute necrotizing pancreatitis. Pt lives with her s.o. and children in a house in [place], [place]. Uses not DME, no HCS. Pt [...] abdominal discomfort. Medicated per AUG. Skin CDI, LINE MAINTAINER scan completed. Pt educated to unit and POC. No other questions or concerns levied at this time. Safety maintained. Marlon Uribe 09/08/2023 5:08 AM documented in this encounter [facility] 09-15-2023 Hospital course Narrative Inpatient Discharge Summary [...] Quantity: 60 tablet Followup: Ibeth Lassiter MD [address] [place] [id number] Follow up on 09/26/2023 at 2:15pm ; [address] [place] [address] Follow up tests Patient should have repeat CBC, CMP, and CRP follow-up approximately 4 days after discharge for a total Code Status: Full Code HPI 28-y/o F w?anxiety and alcohol??Use?disorder who presented on 09/03/2023 to [facility] with severe abdominal pain, nausea, and vomiting. ?She was found to have pancreatitis that evolved into necrotizing pancreatitis. 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 Patient also received phenobarb protocol for alcohol withdrawal while at [facility]. Repeat imaging at outside facility showed significant destruction of pancreas with replacement of fluid due to pancreatic necrosis in addition to developing portal vein and splenic vein thrombosis which then prompted the transfer to [facility] for higher level of care. Hospital Course On presentation to [facility] the patient was tachycardic but otherwise hemodynamically [...] and is being discharged home back to [place] with plan to follow-up with her PCP next week and she will also require follow-up with gastroenterology when back at [place] with coordination of this per PCP. #?Acute?Necrotizing pancreatitis?2/2 alcohol use disorder # Bright red blood per rectum -?On admission?to?[facility]?patient was?found to have interstitial pancreatitis with hepatic steatosis, minimal free fluid within the pelvis, and early necrosis along with elevated lipase. -??CT a/p?09/06 showed extensive necrotizing pancreatitis along with a pancreatic fluid collection. - Patient transferred to [facility] ICU - there appears to have been [...] a fax of the discharge summary to [phone] PCP office contact phone number is ? Plan: -Appreciate recommendations from pain management. ? Plan will be for patient to go on p.o. morphine on discharge. Will also be on Lyrica and methocarbamol -Transition to apixaban for therapeutic anticoagulation -Would continue bowel regimen to try to avoid constipation -PCP follow-up and patient should establish care with gastroenterology once back in [place] -Would recommend repeat labs during the week after discharge including CBC, CMP, CRP ? 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 -??PF4 came back negative and argatroban was discontinued ? Plan: - Transition to [facility]?upon DC ? #?Alcohol use disorder -?Reported [...] 09/15/2023 11:00 AM documented in this encounter [facility] 09-15-2023 Plan of care note Plan of Care Reviewed With: patient Progress: no change Outcome Evaluation: Pt medicated for c/o abdominal pain with good effect. Pt reports no blood with bowel movement during this shift. No further complaints as of this time. Safety measures maintained. Angela Sandoval 09/15/2023 2:38 AM [facility] Work Phone: 09-14-2023 Plan of care note [...] Outcome: Progressing Shobha Manning 09/14/2023 6:32 PM [facility] Work Phone: 09-14-2023 Plan of [...] data recorded Antonia Barajas 09/14/2023 1:56 PM [facility] Work Phone: 09-14-2023 Plan of [...] time of admin IV, pt requested icepack. SECURED ENTRANCE MONITOR called and ice pack given to patient. Outcome Evaluation: Assumed care of pt at 2330. pt in bed. Ice pack refilled per pt request. Snack and sandwich given per pt request. Roxanol admin per order x1 this shift, Morphine 3mg IV admin x1 for breakthrough pain. At time of admin IV, pt requested icepack. SECURED ENTRANCE MONITOR called and ice pack given to patient. Doug Ribeiro 09/14/2023 8:02 AM [facility] Work Phone: 09-13-2023 Progress note Formatting of t his note might be different from the original. Note started in error [facility] 09-12-2023 Plan of care note Plan of [...] within reach. Shobha Toussaint 09/12/2023 12:43 PM [facility] Work Phone: 09-12-2023 Note CLINICAL INFORMATION : [...] support provided. Lisa Car 09/12/2023 6:53 AM [facility] Work Phone: 09-12-2023 Plan of care note [...] Outcome: Progressing Lisa Car 09/12/2023 6:52 AM [facility] 09-11-2023 Plan of care note Met with pt in room [facility]. Introduced NCM role. Has PCP in [place]. Pt will need transport home upon discharge. Antonia Barajas 09/11/2023 4:01 PM [facility] 09-10-2023 Plan of care note Progress: no [...] POC ongoing. Merline Rasmussen 09/10/2023 6:31 PM [facility] Work Phone: 09-10-2023 Plan of care note [...] belongings taken. Adriana Veliz 09/10/2023 5:57 PM [facility] Work Phone: 09-10-2023 Consult note Associated Order [...] to our facility as a transfer from [facility] in [place] For management of acute necrotizing pancreatitis. She [...] in the intensive care unit. The CT INDEPENDENT TRADER have been reviewed and is longer as well as the INDEPENDENT TRADER from [place] with no medications available in the last [...] consulting physicians including but not limited to concrete building assembler and gastroenterology - I have personally reviewed the CT INDEPENDENT TRADER on 09/10/23 - Medication reconciliation with parenteral medication to be instituted in terms of IV Morphine - Counseling including medication side effects and dependency potential Cherry Gomez MD 09/10/2023 1:02 PM Available via [employer] [facility] Work Phone: 09-10-2023 Consult note Associated Order [...] to our facility as a transfer from [facility] in [place] For management of acute necrotizing pancreatitis. She [...] in the intensive care unit. The CT INDEPENDENT TRADER have been reviewed and is longer as well as the INDEPENDENT TRADER from [place] with no medications available in the last [...] consulting physicians including but not limited to concrete building assembler and gastroenterology - I have personally reviewed the CT INDEPENDENT TRADER on 09/10/23 - Medication reconciliation with parenteral medication to be instituted in terms of IV Morphine - Counseling including medication side effects and dependency potential Cherry Gomez MD 09/10/2023 1:02 PM Available via [employer]Vault Associated Order(s): IP CONSULT TO PAIN MANAGEMENT PROVIDER Images from the original note were not included. Gastroenterology Consult Note Date of Consult: 09/08/2023 Patient's Primary Care Physician: Ibeth Lassiter MD Physician Requesting Consult: Ambika Patient's Fuse Spooler: none Encounter Provider: Panchito aSnders MD Name: Corrine Aguilar Age: 28 y.o. Sex: female REASON FOR CONSULT: Abdominal pain and pancreatitis HISTORY OF PRESENT ILLNESS Ms. Aguilar is a 28 y.o. female who was admitted and transferred to [facility] from [facility] in [place] due to significant necrotizing pancreatitis and abdominal pain. Per the patient and the medical record she began experiencing increasing abdominal pain and distention on September 02. She reports that she had been drinking heavily over the past 1-2 months. Consuming approximately 16 to 20 ounces of alcohol a day. On the day of admission to [facility] she had significant abdominal pain, nausea and [...] Date CREAT 0.4 (L) 09/08/2023 Imaging Studies: ? ? ? [facility] ?[address] ?[place] [address] ?XRay Report ? Signed ? ?? Patient: Corrine Aguilar ?MR#: [id number] ? 5 ? : 1995 ?Acct:[id number] ? Age/Sex: 28 / F ?ADM Date: 09/04/23 ? Loc: HO.ICU ?253-1 ? Attending Dr: Matt Syed MD ? Ordering Physician: Steven Riddle ? Date of Service: 09/06/23 ? Procedure(s): XR chest 1V ? Accession Number(s): [id number] ? ?? cc: Steven Riddle; Ibeth Lassiter [...] OV> ?09/06/2334 ? DD/ ? TD/TT: ? Anatomical Embalmer: ? [facility] ?[address] ?[place] [address] ? [address] Scan Report ? Signed ? ?? Patient: Celio Aguilarah ?MR#: [id number] ? 5 ? : 1995 ?Acct:[id number] ? Age/Sex: 28 / F ?ADM Date: 09/04/23 ? Loc: HO.IMC ?469-1 ? Attending Dr: Tom Boyle MD ? Ordering Physician: Matt Syed MD ? Date of Service: 09/07/23 ? Procedure(s): CT abdomen pelvis w IV con ? Accession Number(s): [id number] ? ?? cc: Matt Syed MD; Ibeth [...] 1453 ? DD/ 1327 ? TD/TT: ? Anatomical Embalmer: ? ASSESSMENT & PLAN Assessment and plan: In summary this is a 28-year-old female admitted to [facility] today for management of progressive pancreatitis [...] Phx of ETOH use transferred here from [place] for necrotizing pancreatitis. She presented to [place] on 09/02 for severe abdominal pain, N/V. [...] follow along if patient deteriorates. Discussed with concrete building assembler that if pt deteriorates and requires intubation, [...] emergent surgical intervention. documented in this encounter [facility] 09-10-2023 construction safety manager Note Type: (Inpt/Obs): 09/08/2023 Date of Admission: 09/08/2023 Admitting Dx: Acute pancreatitis with infected necrosis, unspecified [K85.92] HPI: 28F significant daily alcohol use, presented to [facility] with abdominal pain, vomiting, found to [...] q6h prn x 3 Bed Type: ICU [facility] Work Phone: 09-08-2023 Plan of care note Summary: Brianna Palacio Problem: Adult Inpatient Plan of Care Goal: Readiness for Transition of Care Outcome: Progressing Case Management Care Plan Note Summary: Met with patient; admitted 09/06 from [facility] for management of acute necrotizing pancreatitis. Pt lives with her s.o. and children in a house in [place], [place]. Uses not DME, no HCS. Pt [...] Shopping: independent Urmila Cardenas 09/08/2023 3:59 PM [facility] 09-08-2023 Consult note Associated Order (s): IP CONSULT TO PAIN MANAGEMENT PROVIDER Images from the original note were not included. Gastroenterology Consult Note Date of Consult: 09/08/2023 Patient's Primary Care Physician: Ibeth Lassiter MD Physician Requesting Consult: Ambika Patient's Fuse Spooler: none Encounter Provider: Panchito Sanders MD Name: Corrine Aguilar Age: 28 y.o. Sex: female REASON FOR CONSULT: Abdominal pain and pancreatitis HISTORY OF PRESENT ILLNESS Ms. Aguilar is a 28 y.o. female who was admitted and transferred to [facility] from [facility] in [place] due to significant necrotizing pancreatitis and abdominal pain. Per the patient and the medical record she began experiencing increasing abdominal pain and distention on September 02. She reports that she had been drinking heavily over the past 1-2 months. Consuming approximately 16 to 20 ounces of alcohol a day. On the day of admission to [facility] she had significant abdominal pain, nausea and [...] Date CREAT 0.4 (L) 09/08/2023 Imaging Studies: ? ? ? [facility] ?[address] ?[place] [address] ?XRay Report ? Signed ? Patient: Aguilar,Corrine ?MR#: [id number] ? 5 ? : 1995 ?Acct:[id number] ? ? ? Age/Sex: 28 / F ?ADM Date: 09/04/23 ? ? Loc: HO.ICU ?253-1 ? Attending Dr: Matt Syed MD ? Ordering Physician: Steven Riddle ? Date of Service: 09/06/23 ? Procedure(s): XR chest 1V ? Accession Number(s): [id number] ? cc: Steven Riddle; Ibeth Lassiter MD [...] 0834 ? DD/ 0811 ? TD/TT: ? Anatomical Embalmer: ? [facility] ?[address] ?[place] [address] ? CT Scan Report ? Signed ? Patient: Corrine Aguilar ?MR#: [id number] ? 5 ? : 1995 ?Acct:[id number] ? ? ? Age/Sex: 28 / F ?ADM Date: 09/04/23 ? ? Loc: .[facility] ?469-1 ? Attending Dr: Tom Boyle MD ? Ordering Physician: Matt Syed MD ? Date of Service: 09/07/23 ? Procedure(s): CT abdomen pelvis w IV con ? Accession Number(s): [id number] ? cc: Matt Syed MD; Ibeth Lassiter [...] 1453 ? DD/ 1327 ? TD/TT: ? Anatomical Embalmer: ? ASSESSMENT & PLAN Assessment and plan: In summary this is a 28-year-old female admitted to [facility] today for management of progressive pancreatitis [...] Sign: Panchito Sanders MD 09/08/2023 12:33 PM [facility] 09-08-2023 Note 128 [facility] Work Phone: P-R interval 128 ms EKG [facility] 09-08-2023 Note 408 [facility] Work Phone: Q-T interval 408 ms EKG [facility] 09-08-2023 Plan of care note Pt arrived accompanied by ED RN and tech. A+Ox4, VSS as charted; only complaining of abdominal discomfort. Medicated per AUG. Skin CDI, LINE MAINTAINER scan completed. Pt educated to unit and POC. No other questions or concerns levied at this time. Safety maintained. Marlon Uribe 09/08/2023 5:08 AM [facility] 09-08-2023 History and physical note Transferred from [facility] in [place] for acute necrotizing pancreatitis. See resident note separately for more granular review of outside hospital course. 28F significant daily alcohol use, presented to [facility] with abdominal pain, vomiting, found to [...] At high risk for further decompensation T [facility] Work Phone: 09-08-2023 History and physical note Transferred from [facility] in [place] for acute necrotizing pancreatitis. See resident note separately for more granular review of outside hospital course. 28F significant daily alcohol use, presented to [facility] with abdominal pain, vomiting, found to [...] anxiety and alcohol use disorder transferred from [facility] for management of necrotizing pancreatitis. Patient was admitted at [facility] on 09/02 with co severe abdominal [...] on admission: 7.2/29/106/12 - WBC on admission: 53438 - Blood cultures - negative On day [...] splenic vein. Hence patient was transferred to [facility] for higher level of care. On admission [...] anxiety and alcohol use disorder transferred from [facility] for management of necrotizing pancreatitis. 1- Necrotizing pancreatitis 2- Hypokalemia 3- Thrombocytopenia 4- Splenic vein and portal vein thrombosis 5- Anemia 6- Pleural effusion 7- Sinus tachycardia 8- Alcohol use disorder Plan Neuro/psych #Alcohol use disorder - s/p phenobarb protocol at [facility] - Currently no signs of withdrawl [...] portal vein thrombosis Patient was admitted at [facility] on 09/02 with co severe abdominal [...] Cr - 0.72, Utox negative of drugs [facility] labs: Given high anion gap metabolic acidosis she was admitted to the ICU. - Lactic acid trend 7.7 --> 4.2-->3.1-->2.5 - Lipase trend --> 275 --> 523--->418-->283 - Cr trend --0.72-->0.54-->0.50 - Platelet trend -->438 --> 354-->106-->65 - Hb trend -->12.5-->8.9 - ABG on admission: 7.2/29/106/12 - WBC on admission: 13415 - Blood cultures - negative Current admission [...] 0659 09/08/23 0700 - 09/09/23 0659 Shift 2667-1187 6918-4444 24 Hour Total 3456-3532 1416-2891 5879-1922 24 Hour Total INTAKE IV Piggyback 100 [...] comments documented separately. documented in this encounter [facility] 09-08-2023 Consult note Associated Order (s): IP [...] Phx of ETOH use transferred here from [place] for necrotizing pancreatitis. She presented to [place] on 09/02 for severe abdominal pain, N/V. [...] follow along if patient deteriorates. Discussed with concrete building assembler that if pt deteriorates and requires intubation, [...] Moniotr in icu. No emergent surgical intervention. [facility] 09-08-2023 History and physical note Critical Care H&P Note Date of Consult: 09/08/2023 Patient's Primary Care Provider: Ibeth Lassiter MD Reason for Consultation: Necrotizing pancreatitis Admit Date: 09/07/2023 10:18 PM HPI / Subjective Chief Complaint: Necrotizing pancreatitis 28 yo F with PMHx of anxiety and alcohol use disorder transferred from [facility] for management of necrotizing pancreatitis. Patient was admitted at [facility] on 09/02 with co severe abdominal [...] on admission: 7.2//106/12 - WBC on admission: 28702 - Blood cultures - negative On day [...] splenic vein. Hence patient was transferred to [facility] for higher level of care. On admission [...] anxiety and alcohol use disorder transferred from [facility] for management of necrotizing pancreatitis. 1- Necrotizing pancreatitis 2- Hypokalemia 3- Thrombocytopenia 4- Splenic vein and portal vein thrombosis 5- Anemia 6- Pleural effusion 7- Sinus tachycardia 8- Alcohol use disorder Plan Neuro/psych #Alcohol use disorder - s/p phenobarb protocol at [facility] - Currently no signs of withdrawl [...] portal vein thrombosis Patient was admitted at [facility] on 09/02 with co severe abdominal [...] AST - 31, ALT - 21, CRP- [facility] labs: Given high anion gap metabolic acidosis she was admitted to the ICU. - Lactic acid trend 7.7 --> 4.2-->3.1-->2.5 - Lipase trend --> 275 --> 523--->418-->283 - Cr trend --0.72-->0.54-->0.50 - Platelet trend -->438 --> 354-->106-->65 - Hb trend -->12.5-->8.9 - ABG on admission: 7.2/29/106/12 - WBC on admission: 48004 - Blood cultures - negative Current admission [...] 0659 09/08/23 0700 - 09/09/23 0659 Shift 3512-7020 8428-2425 24 Hour Total 4639-0699 0823-1931 0269-7363 24 Hour Total INTAKE IV Piggyback 100 [...] Please see my additional comments documented separately. [facility] Work Phone: 09-08-2023 Emergency department Note S [...] Stated Reason for Visit: (S) ARIELLE from [facility] telemetry unit (accepted by MD Rodriguez in [facility] ICU to decide on pt's level of care) for necrotizing pancreatitis and developing thrombis of the portal vein. Pt has has been at [facility] since September 02 with c/o abdominal pain. [...] (premix) (10 mEq Intravenous New Bag 09/07/23 9492) Labs: Admission on 09/07/2023 Component Date Value [...] Yellow Final Clarity 09/07/2023 Clear Final Specific [place] 09/07/2023 1.013 1.003 - 1.030 Final pH [...] AM Phone: Arben Wu RN 09/08/23 0011 [facility] Work Phone: 09-08-2023 Emergency department Note S [...] Stated Reason for Visit: (S) CALEBA from [facility] telemetry unit (accepted by MD Rodriguez in [facility] ICU to decide on pt's level of care) for necrotizing pancreatitis and developing thrombis of the portal vein. Pt has has been at [facility] since September 02 with c/o abdominal pain. [...] (premix) (10 mEq Intravenous New Bag 09/07/23 7899) Labs: Admission on 09/07/2023 Component Date Value [...] Yellow Final Clarity 09/07/2023 Clear Final Specific [place] 09/07/2023 1.013 1.003 - 1.030 Final pH [...] ED RN Arben Del Toro RN 09/07/23 5121 RT at bedside collecting VBG from this RN Hector Del Toro RN 09/07/23 611 Repeat labs pend, pt resting in bed, c/o abdominal pain, updated on POC. Hector Del Toro RN 09/07/23 938 Pt's o2 sat found to be 80% on room air, placed on 2L and now 97% Hector Del Toro RN 09/07/23 1256 documented in this encounter [facility] 09-07-2023 Physician Emergency department Note History Chief [...] -- -- GRIFFIN Whiting MD 09/08/23 0043 [facility] 09-07-2023 Emergency department Note Critical potassium 2.8, aware. Hector Del Toro RN 09/07/232323 T [facility] 09-07-2023 Emergency department Note Report given to ED RN Arben Del Toro RN 09/07/232310 [facility] 09-07-2023 Emergency department Note RT at bedside collecting VBG from this RN Hector Del Toro RN 09/07/232258 [facility] 09-07-2023 Emergency department Note Repeat labs pend, pt resting in bed, c/o abdominal pain, updated on POC. Hector Del Toro RN 09/07/232249 [facility] 09-07-2023 Emergency department Note Pt's o2 sat found to be 80% on room air, placed on 2L and now 97% Hector Del Toro RN 09/07/232238 [facility] Evaluation note Diagnosis Acute pancreatitis with infected necrosis, unspecified- Primary Necrotizing pancreatitis Acute pancreatitis Acute abdominal pain Abdominal pain, unspecified site Alcohol use disorder Acute thrombosis of splenic vein documented in this encounter [facility]* Reason Comments Necrotizing Pancreatitis * Auth/Cert (Routine) Specialty Diagnoses / Procedures Referred By Suman t Referred To Contact Diagnoses Acute pancreatitis with infected necrosis, unspecified Necrotizing Pancreatitis Procedures N/A Referral ID Status Reason Start Date Expiration Date Visits Re quested Visits Authorized [id number] 1 1 [facility] Advance Directives Date Activated Date Inactivated Comments [...] Care Teams (unrecognized sec tion and content) Fire Prevention Inspector Relationship Specialty Start Date End Date Ibeth Lassiter MD [address] [place] [address] PCP - General Family Medicine 09/07/23 This clinical document has been generated using [employer] software that has been certified by the Office of the National Coordinator for Health Information Technology (ONC 15.99.04.3023.Diam.31.00.0.870565) and the National Committee for Particleboard Factory Worker (NCQA, as an eMeasure certified technology). FOR [...] BE BASED ON THE PRIMARY CLINICAL RECORDS. [employer] provides no warranty or guarantee of the accuracy or completeness of information in this document.The following information is based on time limited clinical information
[2024-06-06] MEDS: Dicyclomine HCl 10 MG CAPSULE PO (17:10)
[2024-06-06] MEDS: Omeprazole 40 MG CAPSULE.DR PO (17:10)
[2024-06-06] MEDS: Ondansetron ODT 4 MG TAB.RAPDIS TRANSLINGU (17:10)
[2024-06-06] MEDS: Ketorolac Tromethamine 30 MG/ML VIAL IM (18:06)
--- NOTE | 2024-06-06 18:08 | PC.NURSE ---
pt medicated for pain per order
[2024-06-06 18:55] VITALS: BP 102/55; PULSE 95; RESP 16; TEMP 36.8; O2SAT 97
== END 2024-06-06 18:56 | disposition home or self-care (01) ==
PROVIDERS: Physician Assistant Medical; Registered Nurse Emergency; Emergency Provider Emergency Medicine; PCP Family Medicine
DX: U07.1 COVID-19 (principal); R10.10 Upper abdominal pain, unspecified; F10.11 Alcohol abuse, in remission
CPT/HCPCS: 0241U; 36415; 80053; 80307; 81001; 82150; 83690; 83735; 84702; 85025; 85610; 96372; 99284; J1885

== ENCOUNTER 2024-06-15 23:20 | Emergency (ER) | payer MEDICAID, SELFPAY ==
--- NOTE | ~2024-06-15 | CT_ITS ---
CLINICAL HISTORY: worsening epigastric pain, hx chronic pancreatitis CT abdomen and pelvis with contrast Comparison: 05/09/2024 Findings: No consolidation or effusion. The gallbladder is absent. No intrahepatic biliary ductal dilatation. Common bile duct is within normal limits. Interval removal of biliary stent and resolution of intrahepatic pneumobilia. The spleen is unremarkable. Pancreas appears similar to previous examination pancreatic tail not visualized slight prominence of pancreatic duct but otherwise the pancreas within normal limits with no peripancreatic inflammatory stranding or pancreatic calcifications. Adrenal glands and kidneys are unremarkable. No ureteral stones and no hydronephrosis or hydroureter. No bowel obstruction, pneumoperitoneum, or pneumatosis. Circumferential rectal wall thickening with no perirectal stranding of uncertain significance. Appendix not visualized. Uterus within normal limits. 1 cm left ovarian cyst likely physiologic right ovarian follicles. Abdominal aorta is normal in size No acute fracture. IMPRESSION: 1. No acute findings. 2. Interval removal of biliary stent and resolution of intrahepatic pneumobilia. This document has been electronically signed by: Nancy Ramirez MD on 06/16/2024 04:18:32
[2024-06-15 23:22] VITALS: BP 114/68; PULSE 90; RESP 16; TEMP 37.1; O2SAT 100; BMI 21.8
--- OUTSIDE RECORDS SUMMARY | 2024-06-15 23:23 | XMS_ITS | Continuity of Care Document ---
Author Organization [facility] ter Address [address] [place] [address]- Support Name Relationship Address Phone PETE ACOSTA domestic partner Unknown Unavaila OC Camacho Other Unknown Unavailable Encounter [facility] Date(s): 06/12/24 - 06/12/[address] [address]- Discharge Disposition: A-D/C Walkout Attending Physician: Not on Staff, Attending MD Admitting Physician: Not on Staff, Admitting MD Referring Physician: Not on Staff, Referring MD Encounter Type: Disch ES Allergies, Adverse Reactions, Alerts No Known Allergies Medications bismuth subsalicylate 262 mg oral tablet 2 tablet = 524 mg, Chew, 4 times a day, for 14 days, # 112 tablet, 0 Refills, Acute 06/16/24 10:31:00 PM EST, 06/02/24 10:31:00 PM EST, Tablet, [facility] #[id number], Partial fill upon patient request if the prescription is for a schedule II opioid drug., 160, cm, 05/25/24 0:23:00 EST, Height,58, kg, 05/22/24 8:15:00 EST, Dry Weight Start Date: 06/02/24 Stop Date: 06/16/24 Status: Ordered Quantity: 112.0 Unit: tablet Repeat number: 1 Creon 36,000 units oral [...] Quantity: 270.0 Unit: capsule Repeat number: 1 hydrOXYzine pamoate 50 mg oral capsule 1 capsule = 50 mg, By Mouth, Every 6 hours, PRN as needed for anxiety Start Date: 04/08/24 Status: Ordered Repeat number: 1 metroNIDAZOLE 500 mg oral tablet 1 tablet = 500 mg, By Mouth, Every 8 hours, for 14 days, # 42 tablet, 0 Refills, Acute 06/16/24 10:31:00 PM EST, 06/02/24 10:31:00 PM EST, Tablet, [facility] #[id number], Partial fill upon patient request if the prescription is for a schedule II opioid drug., 160, cm, 05/25/24 0:23:00 EST, Height, 58, kg, 05/22/24 8:15:00 EST, Dry Weight Start Date: 06/02/24 Stop Date: 06/16/24 Status: Ordered Quantity: 42.0 Unit: tablet Repeat number: 1 MiraLax oral powder for reconstitution = 17 Gm, By Mouth, Daily, PRN Constipation, for 30 days, # 238 Gm, 0 Refills, Acute 06/24/24 1:58:00PM EST, 05/25/24 1:58:00 PM EST, REC Powder, [facility] #[id number], Partial fill upon patientrequest if the prescription [...] Date: 05/22/24 Status: Ordered Repeat number: 1 tetracycline 500 mg oral capsule 1 capsule = 500 mg, By Mouth, Every 6 hours, for 14 days, # 56 capsule, 0 Refills, Acute 06/16/24 10:31:00 PM EST, 06/02/24 10:31:00 PM EST, Capsule, [id number], Partial fill upon patient request if the prescription is for a schedule II opioid drug., 160, cm, 05/25/24 0:23:00 EST, Height, 58, kg, 05/22/24 8:15:00 EST, Dry Weight Start Date: 06/02/24 Stop Date: 06/16/24 Status: Ordered Quantity: 56.0 Unit: capsule Repeat number: 1 traMADol 50 mg oral tablet 1 tablet = 50 mg, By Mouth, Every 6 hours, PRN for pain, Maintenance, 05/22/24 3:09:00 PM EST, Tablet, Partial fill upon patient request if the prescription is for a schedule II opioid drug. Start Date: 05/22/24 Status: Ordered Repeat number: 1 Problem List Condition Confirmation Course Effective Dates Status Health [facility] Informant Hematemesis Confirmed Active Hypokalemia Confirmed Active Social History Social History Type Response Smoking Status Never (less than 100 in lifetime) entered on: 09/25/23 Sex Sex Representation Female (finding) Patient Care team information Care Team Personnel Name: Charmaine Miguel RN Position: [facility] RN Member Role: Primary Care Nurse Name: Briseyda Ramsey RN Position: S RN Member Role: Primary Care Nurse Name: Fifi Dickson Position: [facility] RN Member Role: Primary Care Nurse Name: Briseyda Melton RN Position: [facility] RN Member Role: Primary Care Nurse Name: Iam Noble RN Position: [facility] RN Member Role: Primary Care Nurse Name: Ena Obrien RN Position: [facility] ED RN W/OE and Tasks Member Role: Primary Care Nurse Name: Tammie Zamudio RN Position: [facility] RN Member Role: Primary Care Nurse Name: Dai Pham RN Position: [facility] RN Member Role: Primary Care Nurse Name: Yumiko Ontiveros RN Position: [facility] RN Member Role: Primary Care Nurse Name: Alyssa Abdi RN Position: [facility] RN Member Role: Primary Care Nurse Name: Vinicio Carr RN Position: [facility] RN Member Role: Primary Care Nurse Name: Earle Coyne RN Position: [facility] RN Member Role: Primary Care Nurse Name: Saritha Prado RN Position: [facility] RN Member Role: Primary Care Nurse Name: Micaela Abad RN Position: [facility] RN Member Role: Primary Care Nurse Name: Sudha Black LPN Position: [facility] RN Member Role: Primary Care Nurse Name: Mary Fernandes RN Position: [facility] RN Member Role: Primary Care Nurse Name: Marlon Michelle RN Position: [facility] RN Member Role: Primary Care Nurse Name: Noelle Gill RN Position: [facility] RN Member Role: Primary Care Nurse Name: Tiana Galicia RN Position: [facility] RN Member Role: Primary Care Nurse Name: Divya Aguilar RN Position: [facility] RN Member Role: Primary Care Nurse Name: Doreen Doe LPN Position: [facility] RN Member Role: Primary Care Nurse Name: Rosa Rahman RN Position: [facility] RN Member Role: Primary Care Nurse Name: Nelda Martin LPN Position: [facility] RN Member Role: Primary Care Nurse Name: Cory Parker RN Position: [facility] RN Member Role: Primary Care Nurse Care Team Related Persons Name: OC SANCHEZ Name: PETE ACOSTA Insurance Providers Guarantor name: CORRINE HILL Health Plan Information #: 1 Payer: SELF [employer]URANCE Member Number: [id number] Policy Number: NA Group Number: NA Health Plan Information #: 2 Payer: SELF PAY INSURANCE Member Number: [id number] Policy Number: NA Group Number: NA
--- OUTSIDE RECORDS SUMMARY | 2024-06-15 23:23 | XMS_ITS | Continuity of Care Document ---
Author Organization [facility] Address [address] [place] [address] [address] [place] [address]- Support Name Relationship Address Phone PETE ACOSTA domestic partner Unknown Unavaila ble OC SANCHEZ Other Unknown Unavailable Encounter [facility] Date(s): 05/14/24 - 06/13/[address] [place] [address]- Attending Physician: Moody Buck Admitting Physician: Moody Buck Referring Physician: AdmtrMoody Encounter Type: Triage Allergies, Adverse Reactions, Alerts No Known Allergies Medications bismuth subsalicylate 262 mg oral tablet 2 tablet = 524 mg, Chew, 4 times a day, for 14 days, # 112 tablet, 0 Refills, Acute 06/16/24 10:31:00 PM EST, 06/02/24 10:31:00 PM EST, Tablet, [facility] #[id number], Partial fill upon patient request if the [...] PM EST, 06/02/24 10:31:00 PM EST, Tablet, [facility] #[id number], Partial fill upon patient request if the [...] EST, 05/25/24 1:58:00 PM EST, REC Powder, [facility] #[id number], Partial fill upon patientrequest if the prescription [...] PM EST, 06/02/24 10:31:00 PM EST, Capsule, [facility] #[id number], Partial fill upon patient request if the [...] Primary Care Nurse Name: Fifi Dickson Position: [facility] RN Member Role: Primary Care Nurse Name: Briseyda Melton RN Position: [facility] RN Member Role: Primary Care Nurse Name: Iam Noble RN Position: [facility] RN Member Role: Primary Care Nurse Name: Ena Obrien RN Position: [facility] ED RN W/OE and Tasks Member Role: Primary Care Nurse Name: Tammie Zamudio RN Position: [facility] RN Member Role: Primary Care Nurse Name: Dai Pham RN Position: [facility] RN Member Role: Primary Care Nurse Name: Yumiko Ontiveros RN Position: [facility] RN Member Role: Primary Care Nurse Name: Alyssa Abdi RN Position: [facility] RN Member Role: Primary Care Nurse Name: Vinicio Carr RN Position: [facility] RN Member Role: Primary Care Nurse Name: Earle Coyne RN Position: [facility] RN Member Role: Primary Care Nurse Name: Saritha Prado RN Position: [facility] RN Member Role: Primary Care Nurse Name: Micaela Abad RN Position: [facility] RN Member Role: Primary Care Nurse Name: Sofia LOPEZ, Sudha Position: [facility] RN Member Role: Primary Care Nurse Name: Mary Fernandes RN Position: [facility] RN Member Role: Primary Care Nurse Name: Marlon Michelle RN Position: [facility] RN Member Role: Primary Care Nurse Name: Noelle Gill RN Position: [facility] RN Member Role: Primary Care Nurse Name: Tiana Galicia RN Position: [facility] RN Member Role: Primary Care Nurse Name: Divya Aguilar RN Position: [facility] RN Member Role: Primary Care Nurse Name: oDreen Doe LPN Position: [facility] RN Member Role: Primary Care Nurse Name: Rosa Rahman RN Position: [facility] RN Member Role: Primary Care Nurse Name: Nelda Martin LPN Position: [facility] RN Member Role: Primary Care Nurse Name: Cory Parker RN Position: [facility] RN Member Role: Primary Care Nurse Care Team Related Persons Name: OC SANHCEZ Name: PETE ACOSTA Insurance Providers Guarantor name: [facility] Information #: 1 Payer: SELF PAY INSURANCE Member Number: NA Policy Number: NA Group Number: NA
--- OUTSIDE RECORDS SUMMARY | 2024-06-15 23:23 | XMS_ITS | Continuity of Care Document ---
Author Organization [facility] ter Address [address] [place] [address]- Support Name Relationship Address Phone SHERWIN ACOSTA domestic partner Unknown Unavaila OC Camacho Other Unknown Unavailable Encounter [facility] Date(s): 06/09/24 - 06/09/[address] [address] Discharge Disposition: A-D/C Home Attending Physician: Kevin Scherer DO Admitting Physician: Kevin Scherer DO Referring Physician: Kevin Scherer DO Encounter Type: Disch Daystay Allergies, Adverse Reactions, Alerts No Known Allergies Medications bismuth subsalicylate 262 mg oral tablet 2 tablet = 524 mg, Chew, 4 times a day, for 14 days, # 112 tablet, 0 Refills, Acute 06/16/24 10:31:00 PM EST, 06/02/24 10:31:00 PM EST, [id number], Partial fill upon patient request if the [...] PM EST, 06/02/24 10:31:00 PM EST, Tablet, [facility][id number], Partial fill upon patient request if the [...] EST, 05/25/24 1:58:00 PM EST, REC Powder, [id number], Partial fill upon patientrequest if the prescription [...] PM EST, 06/02/24 10:31:00 PM EST, Capsule, [facility] #[id number], Partial fill upon patient request if the [...] Exam Date Time Procedure Performing Provider Status 06/09/24 8:15 AM C-Arm < 1 Hour Garima Pinto; Auth ( Verified) Notes: (C-Arm < 1 Hour) Reason For Exam: STENT REMOVAL RESULT: C-Arm < 1 Hour ERCP Both Ducts, C-Arm < 1 Hour INDICATION: Reason: STENT REMOVAL COMPARISONS: None TECHNIQUE: Fluoroscopy support was provided. There was no radiologist in attendance. FLUOROSCOPY TIME: 54.1 seconds EXPOSURE: 2.4908 Gycm2 (Dose Area Product) TECHNOLOGIST TIME: 35 minutes FINDINGS: Fluoroscopy was performed and a total of 7 spot films of the right upper quadrant were obtained during the procedure. Biliary stent was removed. Please refer to operative report for further details. IMPRESSION: See above. WSN: [id number] Ordering Physician: Kevin Scherer Dictated By: Sherwin Espinosa MD Dictated Date/Time: 06/09/24 8:53 am Reviewed By: Sherwin Espinosa MD Signed By: Sherwin Espinosa MD Signed Date/Time: 06/09/24 8:53 am Transcribed By: MIKI Transcribed Date/Time: 06/09/24 8:52 am * Exam Date Time Procedure Performing Provider Status 06/09/24 8:15 AM ERCP Both Ducts Blair , Garima; Auth (Verified) Notes: (ERCP Both Ducts) Reason For Exam: STENT REMOVAL RESULT: ERCP Both Ducts ERCP Both Ducts, C-Arm < 1 Hour INDICATION: Reason: STENT REMOVAL COMPARISONS: None TECHNIQUE: Fluoroscopy support was provided. There was no radiologist in attendance. FLUOROSCOPY TIME: 54.1 seconds EXPOSURE: 2.4908 Gycm2 (Dose Area Product) TECHNOLOGIST TIME: 35 minutes FINDINGS: Fluoroscopy was performed and a total of 7 spot films of the right upper quadrant were obtained during the procedure. Biliary stent was removed. Please refer to operative report for further details. IMPRESSION: See above. WSN: [id number] Ordering Physician: Kevin Scherer Dictated By: Sherwin Espinosa MD Dictated Date/Time: 06/09/24 8:53 am Reviewed By: Sherwin Espinosa MD Signed By: Sherwin Espinosa MD Signed Date/Time: 06/09/24 8:53 am Transcribed By: MIKI Transcribed Date/Time: 06/09/24 8:52 am Vital Signs Most recent to oldest [Reference Range]: 1 2 3 Height 163 cm (06/09/24 7:21 AM) Oxygen Saturation [94-100 %] 98 % (06/09/24 8:46 AM) 100 % (06/09/24 8:40 AM) 100 % (06/09/24 8:31 AM) Pulse Rate [55-90 bpm] 80 bpm (06/09/24 7:21 AM) Blood Pressure [90-138/55-84 mm Hg] 116/81mm Hg (06/09/24 8:46 AM) 101/71mm Hg (06/09/24 8:40 AM) 104/72mm Hg (06/09/24 8:31 AM) Respiratory Rate [16-30 br/min] 18 br/min (06/09/24 8:46 AM) 18 br/min (06/09/24 8:40 AM) 18 br/min (06/09/24 8:31 AM) Temperature [96.8-100.4 DegF] 98.1 DegF (06/09/24 8:16 AM) 97.8 DegF (06/09/24 7:21 AM) Liters per Minute 8 L/min (06/09/24 8:16 AM) Mode of Delivery (Oxygen) Room air (06/09/24 8:46 AM) Room air (06/09/24 8:40 AM) Room air (06/09/24 8:31 AM) Blood pressure sites Arm, left (06/09/24 8:46 AM) Arm, left (06/09/24 8:40 AM) Arm, left (06/09/24 8:31 AM) Temperature Route Temporal (06/09/24 8:16 AM) Temporal (06/09/24 7:21 AM) Dry Weight 57.9 kg (06/09/24 7:21 AM) Dry Weight Obtained Via Patient/family s tated (06/09/24 7:21 AM) Social History Social History Type Response Smoking Status Never (less than 100 in lifetime) entered on: 09/25/23 Sex Sex Representation Female (finding) Note * Dai Williamson RN: PERFORM Event Display: Discharge/Transfer Note Hospital Authored Date: [id number] Nursing Discharge Note Entered On: 06/09/2024 8:13 EST Performed On: 06/09/2024 8:13 EST by Dai Williamson RN Nursing Discharge Note 2 Discharge Time : 06/09/2024 9:13 EST [facility], [facility] - 06/09/2024 9:13 EST Discharge Level of Care at Discharge : Home/Residential/Foster Care Patient Left Unit Via : Wheelchair Patient Accompanied Off Unit with : Responsible adult DC Instructions Provided & Signed by Pt : Yes Patient Understands D/C Instructions : Yes Patient Instructions Discharge Signed : Yes Did Pt have Specialty Bed or Wound Vac : No Dai Williamson RN - 06/09/2024 8:13 EST * Dai Williamson RN: PERFORM Event Display: Patient Education/Instruction Authored Date: [id number] Surgery Adult Discharge Instructions [address] [address] Name: CORRINE HILL : 1995?? Visit: 06/09/2024 07:01?? Current Date: 06/09/2024 08:13 ?? Account: [id number]?? Surgery Discharge Instructions We would like to thank [...] and their families. Surveys are administered by [employer] ?? If further treatment with your primary care physician or another doctor is recommended, it is important for you to keep the appointment. Call your primary care physician or return to the Emergency Department immediately if your condition worsens, fails to improve, or new symptoms develop. If you need to find a doctor, you can call [facility] [employer] [facility] for a referral at [phone] or toll free at [phone]) or log in to [email or web address].. ?? [facility], in keeping with [facility] guidance, no longer requires face masks [...] a health care rafa of your choosing. [employer] is a website that allows you to securely view your medical information including your hospital discharge summary, office visit summaries, medications and follow-up visits. You can also request appointments, renew medications, and request access to your medical information using a health care rafa of your choosing, or just ask a question. You are entitled to know the individuals who participated in your treatment. This information is available within your medical record and will be provided upon your request. You can enroll at [email or web address] or register d uring your next office visit. You have been discharged from [facility], Patient Care Unit: ENDO??. If you have any questions regarding these instructions after you leave, please call us and we will be happy to assist you. [facility] Your Care Team Attending Physician Kevin Scherer DO?? Discharging Providers Kevin Scherer DO Reason for Admission PANCREATIC DUCT STRICTUREBILE DUCT STENT REMOVAL Primary Care Provider [phone]?? Advance Directive Health Care Proxy on File Yes - Health Care Proxy What to do next Instructions From Your Doctor ?? Orders?? Daystay Protocol, ??06/09/24 7:21:00 EST?? Scheduled Follow-Up Appointments Sunday 6:00 AM EST ?? Where: [facility] [address] [place] [address]- Status: Pending Sunday 10:45 AM EST ?? With: Kevin Scherer DO Where: [facility] [place] [address]- Status: Pending You Need to Schedule the Following Appointments Follow Up with??Follow up with primary care as needed Discharge Medications CORRINE HILL :1995 Visit Date:06/09/2024 Medications: Please continue your medications until treatment is completed or stopped by your provider. You may resume your daily prescription medications. Discuss any questions related to medications with your provider. What How Much When Why Instructions Next Dose Unchanged Bismuth Subsalicylate (bismuth subsalicylate 262 mg oral tablet) 2 tab(s) Chew 4 times a day Duration: 14 Days Unchanged HydrOXYzine (hydrOXYzine pamoate 50 mg oral capsule) 1 capsule Oral Every 6 hours as needed for as needed for anxiety Unchanged Metronidazole (metroNIDAZOLE 500 mg oral tablet) 1 tab(s) Oral Every 8 hours Duration: 14 Days Unchanged Morphine (morphine 15 mg oral tablet, immediate release) 1.5 tab(s) Oral Every 12 hours Unchanged Olanzapine (olanzapine 20 mg oral tablet, disintegrating) 1 tab(s) Sublingual Daily at Bedtime allow tablet to dissolve on tongue ?? Unchanged Pancrelipase (Creon 36,000 units oral delayed release capsule) 1 capsule Oral 3 times a day swallow whole or sprinkle contents over a teaspoonful of applesauce ?? Unchanged Pantoprazole (pantoprazole 40 mg oral delayed release tablet) 1 tab(s) Oral Twice a day as needed for as needed Erosive gastritis with hemorrhage Duration: 8 week(s) Unchanged Polyethylene Glycol 3350 (MiraLax oral powder for reconstitution) 17 gram Oral Daily as needed for Constipation History of constipation Duration: 30 Days Unchanged Pregabalin (pregabalin 100 mg oral capsule) 1 capsule Oral Twice a day Unchanged Tetracycline (tetracycline 500 mg oral capsule) 1 capsule Oral Every 6 hours Duration: 14 Days Unchanged Tramadol (traMADol 50 mg oral tablet) 1 tab(s) Oral Every 6 hours as needed for for pain Allergies (NKA means No Known Allergies) NKA Education Materials Below is the list of Educational Leaflet Providered with your Discharge Instructions. [employer] Patient Education - Surgery Medical Daystay Surgical Overnight Discharge Instructions?? Valuables and Belongings I fully understand and agree that [facility] accepts no responsibility for all my [...] encouraged to send valuables and belongings home. ? Other Discharge Information ? Case Management Discharge Plan?? Discharge Plan?? Discharge Level of Care at Discharge: Home/Residential/Foster Care ?? Pulmonary Rehab Status?? Pulmonary Rehab Discharge Status?? Respiratory Rate:??14 br/min??Low ? Common Emergency Awareness Tips IS IT [...] are strongly encouraged to quit. Please call [facility] [employer] [facility] at [phone] or [phone]) or log in to [email or web address] for referrals to smoking cessation programs. ?? The National Suicide Prevention Hotline is available 25/12 if you or someone you know needs to find a reason to keep living. By calling 3-782-476-PaperKarma (0590) you'll be connected to a skilled, trained counselor at a crisis center in your area. SURGERY DISCHARGE INSTRUCTIONS SIGNATURE ALICIA CORRINE HILL Location:[facility] Registration Date and Time:06/09/2024 07:01 EST Attending Physician: Kevin Scherer DO, I CORRINE HILL, have received the above patient education materials/instructions and have verbalized understanding. If ambulance or transport services are being used I further acknowledge being given a choice of service. ?? If you need to contact me, please call me at this number: . Patient/Napping Machine Operator Name: Patient/Napping Machine Operator Signature: Relationship to Patient: Witness Name/Signature: Date: * Dai Williamson RN: PERFORM, SIGN, VERIFY Event Display: Patient Education Handout Authored Date: [id number] * Dai Williamson RN: PERFORM Event Display: Patient Education Leaflets Authored Date: [id number] Surgery Medical Daystay Surgical Overnight Discharge Instructions ?? 295 Medical Daystay/Surgical Overnight Discharge Instructions ? Since your coordination and judgment may be altered by medication and/or anesthesia, a responsible adult must drive you home from the hospital. ? If you have received medication for pain or sedation while under our care, you should not drive, operate machinery, drink alcohol, or sign any legal documents for 24 hours.?? You should have someone with you at home tonight. ? Remain at home the day of discharge.?? You may be up and about unless otherwise instructed by your physician. ? You may resume your daily prescription medication schedule.?? Any depressant medication should be avoided for 24 hours unless otherwise instructed by your surgeon or anesthesiologist. ? Call your physician for a follow-up appointment.? If you experience unusual or severe pain not relied by your pain medication, excessive bleedingor drainage, persistent nausea and vomiting, excessive swelling or redness, foul odor from incisionsite or fever over 100.6F, you need to call your physician. ? A follow-up phone call by a nurse will be made the day after your procedure.?? If you have stayed with us over night, you will not be receiving a follow-up phone call. ? Nausea and vomiting are a common side effect of prescription pain medication.?? We recommend that pills are not taken on an empty stomach.?? While taking any prescription pain medication you should not drive or drink alcohol. ? Patient Care team information Care Team Personnel Name: Charmaine Miguel RN Position: [facility] RN Member Role: Primary Care Nurse Name: Briseyda Ramsey RN Position: S RN Member Role: Primary Care Nurse Name: Fifi Dickson Position: [facility] RN Member Role: Primary Care Nurse Name: Briseyda Melton RN Position: [facility] RN Member Role: Primary Care Nurse Name: Iam Noble RN Position: [facility] RN Member Role: Primary Care Nurse Name: Ena Obrien RN Position: [facility] ED RN W/OE and Tasks Member Role: Primary Care Nurse Name: Tammie Zamudio RN Position: [facility] RN Member Role: Primary Care Nurse Name: Dai Pham RN Position: [facility] RN Member Role: Primary Care Nurse Name: Yumiko Ontiveros RN Position: [facility] RN Member Role: Primary Care Nurse Name: Alyssa Abdi RN Position: [facility] RN Member Role: Primary Care Nurse Name: Vinicio Carr RN Position: [facility] RN Member Role: Primary Care Nurse Name: Earle Coyne RN Position: [facility] RN Member Role: Primary Care Nurse Name: Saritha Prado RN Position: [facility] RN Member Role: Primary Care Nurse Name: Micaela Abad RN Position: [facility] RN Member Role: Primary Care Nurse Name: Sofia LOPEZ, Sudha Position: [facility] RN Member Role: Primary Care Nurse Name: Mary Fernandes RN Position: [facility] RN Member Role: Primary Care Nurse Name: Marlon Michelle RN Position: [facility] RN Member Role: Primary Care Nurse Name: Noelle Gill RN Position: [facility] RN Member Role: Primary Care Nurse Name: Tiana Galicia RN Position: [facility] RN Member Role: Primary Care Nurse Name: Divya Aguilar RN Position: [facility] RN Member Role: Primary Care Nurse Name: Doreen Doe LPN Position: [facility] RN Member Role: Primary Care Nurse Name: Rosa Rahman RN Position: [facility] RN Member Role: Primary Care Nurse Name: Nelda Martin LPN Position: [facility] RN Member Role: Primary Care Nurse Name: Cory Parker RN Position: [facility] RN Member Role: Primary Care Nurse Care Team Related Persons Name: OC SANCHEZ Name: SHERWIN ACOSTA Insurance Providers Guarantor name: CORRINE HILL Health Plan Information #: 1 Payer[facility] Member Number: [id number] Policy Number: NA Group Number: NA Health Plan Information #: 2 Payer: [employer] Member Number: [id number] Policy Number: NA Group Number: NA
[2024-06-15 23:50] LABS: MANUAL DIFF FLAG NO
[2024-06-15 23:52] LABS: Basophils Percent Auto 0.5 % (0-2); Eosinophils Absolute Auto 0.1 X10*3/uL (0.0-0.4); Eosinophils Percent Auto 1.6 % (0-4); Hematocrit 38.8 % (37.0-47.0); Hemoglobin 12.4 g/dl (12.0-16.0); Imm Gran Abs Auto 0.03 X10*3/uL (0.00-0.03); Imm Gran Pct Auto 0.4 % (0.0-0.4); Lymphocytes Absolute Auto 3.1 X10*3/uL (1.2-4.9); Lymphocytes Percent Auto 37.2 % (20-40); Mean Corpuscular Hemoglobin 25.2 pg (27.0-33.0); Mean Corpuscular Volume 78.7 fL (80.0-98.0); Mean Platelet Volume 10.5 fL (9.4-12.3); Monocytes Absolute Auto 0.5 X10*3/uL (0.1-1.2); Monocytes Percent Auto 5.5 % (2-11); Neutrophils Absolute Auto 4.5 x10*3/uL (2.0-8.3); Neutrophils Percent Auto 54.8 % (45-73); Platelet Count 322 X10*3/uL (160-400); Red Blood Count 4.93 X10*6/uL (4.20-5.50); Red Cell Distribution Width 14.2 % (11.0-16.0); White Blood Count 8.3 X10*3/uL (4.8-10.8)
[2024-06-15 23:54] LABS: Appearance Urine Clear; Color Urine Yellow; Glucose Urine UA Negative (Negative); Leukocyte Esterase Urine Negative (Negative); Nitrite Urine Negative (Negative); PH 6.5 (5.0-9.0); Specific Gravity - Urine >= 1.030 (1.005-1.025); Urine Blood Negative (Negative); Urine Ketones Negative (Negative); Urine Protein Negative (Neg-Trace)
[2024-06-15 23:55] LABS: UPreg QC Valid YES; Urine Pregnancy NEGATIVE (NEGATIVE)
[2024-06-16 00:12] LABS: Alanine Aminotransferase 38 U/L (0-31); Albumin Level 4.4 g/dL (3.5-5.0); Alkaline Phosphatase 168 U/L (39-117); Anion Gap 11 (12-20); Aspartate Amino Transferase 31 U/L (5-31); Bilirubin Direct < 0.2 mg/dL (0.0-0.5); Bilirubin Total 0.2 mg/dL (0.0-1.0); Blood Urea Nitrogen 12 mg/dL (9-16); Calcium 8.9 mg/dL (8.4-10.2); Carbon Dioxide 21 mmol/L (22-29); Chloride 111 mmol/L (96-108); Creatinine Clr Calc Pharmacy 92.7; Estimated Glomerular Filt Rate > 60; Glucose Random 113 mg/dL (60-115); Lipase 9 U/L (8-78); Potassium 3.7 mmol/L (3.3-5.1); Sodium 139 mmol/L (135-145); Total Protein 7.6 g/dL (6.5-8.0)
--- NOTE | 2024-06-16 02:29 | ED.ABDPAIN ---
HPI - Abdominal Pain General Chief Complaint: Abdominal Pain Stated Complaint: pancreas pain Time Seen by Provider: 06/16/24 02:13 Source: patient Mode of arrival: ambulatory Limitations: no limitations History of Present Illness ED Provider: Dr. Nadia Abad HPI narrative: patient comes to the emergency room complaining of chronic epigastric pain. Patient has history of chronic necrotizing pancreatitis. Patient states that she is always in pain. However, today it is worse than usual. Patient denies vomiting or diarrhea. No fever chills. She states that she gets prescribed morphine for home. However today the pain is worse than usual. Patient states that since she had episode of necrotizing pancreatitis in September of 2023, she stopped drinking altogether. Related Data Previous Rx's ?Medication ?Instructions ?Recorded heparin (porcine) 25,000 unit/250 25,000 unit (250 mL) continuous IV 09/07/23 mL in 0.45 % sodium chloride IV infusion .Q0M #100 mL soln heparin (porcine) 5,000 unit/mL 3,100 unit (0.62 mL) IVPUSH 09/07/23 injection solution PROTOCOL BOLUS PRN 40 Unit/Kg - Heparin Protocol #100 mL heparin (porcine) 5,000 unit/mL 6,300 unit (1.26 mL) IVPUSH 09/07/23 injection solution PROTOCOL BOLUS PRN 80 Unit/Kg - Heparin Protocol #100 mL hydromorphone 1 mg/mL injection 1 mg IVPUSH Q2H PRN Pain, 09/07/23 syringe Moderate(Pain Scale 4-6) #5 mL lactated Ringers 150 ml IV .per hour 2 days 09/07/23 morphine 15 mg immediate release 15 mg PO Q6H PRN pain #14 tabs 10/18/23 tablet ondansetron 4 mg disintegrating 4 mg PO Q6H PRN nausea and 10/18/23 tablet vomiting #10 tabs omeprazole 20 mg capsule,delayed 20 mg PO DAILY #30 caps 04/17/24 release omeprazole 20 mg capsule,delayed 20 mg PO DAILY #10 caps 06/06/24 release ondansetron 4 mg disintegrating 4 mg PO Q8H PRN nausea and 06/06/24 tablet vomiting #7 tabs Allergies Allergy/AdvReac Type Severity Reaction Status Date / Time No Known Allergies Allergy Verified 06/15/24 23:24 Review of Systems Review of Systems Constitutional : No Weight loss, No Fever, No Chills, No Night Sweats, No Fatigue, No Malaise ENT/Mouth : No Hearing loss, No Ear Pain, No Nasal Congestion, No Sinus Pain, No Hoarseness, No sore throat, No Rhinorrhea, No Swallowing Difficulty Eyes: No Eye Pain, No Swelling, No Redness, No Foreign Body, No Discharge, No Vision Changes Cardiovascular : No Chest Pain, No SOB, No Dyspnea on Exertion, No Orthopnea, No Edema, No Palpitations Respiratory : No Cough, No Sputum, No Wheezing, No Smoke Exposure, No Dyspnea Gastrointestinal : No Nausea, No Vomiting, No Diarrhea, No Constipation, Complaining of chronic epigastric pain, no hematochezia Genitourinary : no irregular bleeding, No Dysuria, No Urinary Frequency, No Hematuria, No Urinary Incontinence, No Urgency, No Flank Pain, No Urinary Flow Changes, No Hesitancy Musculoskeletal : No joint pain, No Myalgias, No Joint Swelling Skin : No Skin Lesions, No rash Neuro : No Weakness, No Numbness, No Paresthesias, No Loss of Consciousness, No Dizziness, No Headache Psych : No Anxiety/Panic, No Depression, No SI/HI/AH/VH, No Social Issues, Heme/Lymph: No Bruising, No Bleeding,No Lymphadenopathy Endocrine : No Polyuria, No Polydipsia, No Temperature Intolerance [facility] Past Medical History Medical History Alcohol abuse Necrotizing pancreatitis Benign tumor of breast Alcohol abuse Asthma Anxiety Surgical History No history of previous surgery Social History Social History Household Members: Family Housing: House Do you presently have visiting nurse or other home services: No Alcohol intake: former Patient Tobacco Use Status: Never used Tobacco Smoked in Last 30 Days: No Use of substances other than those prescribed or required for medical reasons: No Substance Use Type: Marijuana Advance Directives: No Advance Directives Information Provided: Yes Do you have a plan to hurt others: No Plan Patient : No service: No Physical Exam ED Vital Signs: Vital Signs - 24 hr 06/15/24 23:22 Temperature 98.8 F Pulse Rate 90 Respiratory Rate 16 Blood Pressure 114/68 Pulse Oximetry 100 Oxygen Delivery Method Room Air BMI result Body Mass Index 21.8 Const Other: Appearance: Alert. Oriented X3. No acute distress. Eyes: Pupils equal, round and reactive to light. ENT: Pharynx normal. Neck: Normal inspection. Neck supple. No lymph nodes noted. No crepitus CVS: Normal heart rate and rhythm. Pulses normal. Normal S1 and S2 Respiratory: No respiratory distress. Breath sounds normal. No Wheezing. No rales Abdomen: Soft , tenderness to palpation, slight distention, no rebound or guarding. Skin: Skin warm and dry. Normal skin color. Normal skin turgor. Extremities: No lower extremity edema. No Lacerations. No Rash Neuro: Oriented X 3. No motor deficit. No sensory deficit. Moving all extremities. No slurred speech. CN 2 through 12 grossly intact Psych: calm, cooperative, normal affect Course Course Course Narrative: Patient receiving IV fluids, morphine Zofran due to patient's history of amputation pancreatitis, we will obtain a CT scan, make sure that she is not developing cyst / pseudocyst floor another infection. Medical Decision Making Medical Decision Making [facility] Narrative: My interpretation of labs: Patient's hematology and chemistry do not show any acute abnormality, lipase is normal. I reviewed patient's mass PAD, patient does get scheduled prescribed morphine p.o. CT scan does not show any acute abnormality. Differential Diagnosis Differential Diagnoses: The differential diagnosis associated with the presentation includes ( Chronic pancreatitis, pseudocyst, acute on chronic pancreatitis, SBO, perforated ulcer) Admission/Observation Consideration of admission/observation: Escalation of care including admission/observation considered ( given patient's initial presentation, admission/ observation was considered) Lab Data [facility] Lab Attestation statement: I reviewed the patient's lab results. 06/15/24 23:43 06/15/24 23:43 Labs: Lab Results 06/15/24 06/15/24 Range/Units 23:42 23:43 WBC 8.3 (4.8-10.8) X10*3/uL RBC 4.93 (4.20-5.50) X10*6/uL Hgb 12.4 (12.0-16.0) g/dl Hct 38.8 (37.0-47.0) % MCV 78.7 L (80.0-98.0) fL MCH 25.2 L (27.0-33.0) pg MCHC 32.0 (31.0-35.0) g/dl RDW 14.2 (11.0-16.0) % Plt Count 322 D (160-400) X10*3/uL MPV 10.5 (9.4-12.3) fL Immature Gran % (Auto) 0.4 (0.0-0.4) % Neut % (Auto) 54.8 (45-73) % Lymph % (Auto) 37.2 (20-40) % [place] % (Auto) 5.5 (2-11) % Eos % (Auto) 1.6 (0-4) % Baso % (Auto) 0.5 (0-2) % Lymph # (Auto) 3.1 (1.2-4.9) X10*3/uL [place] # (Auto) 0.5 (0.1-1.2) X10*3/uL Eos # (Auto) 0.1 (0.0-0.4) X10*3/uL Baso # (Auto) 0.0 (0.0-0.2) X10*3/uL Abs Immat Gran (auto) 0.03 (0.00-0.03) X10*3/uL Absolute Neuts (auto) 4.5 (2.0-8.3) x10*3/uL Absolute Nucleated RBC 0.000 (0.0-0.012) X10*3/uL Nucleated RBC % (auto) 0.0 (0.0-0.2) /100WBC Sodium 139 (135-145) mmol/L Potassium 3.7 (3.3-5.1) mmol/L Chloride 111 H (96-108) mmol/L Carbon Dioxide 21 L (22-29) mmol/L Anion Gap 11 L (12-20) BUN 12 (9-16) mg/dL Creatinine 0.78 (0.5-1.4) mg/dL Estim Creat Clear Calc 92.7 Estimated GFR > 60 Random Glucose 113 (60-115) mg/dL Calcium 8.9 (8.4-10.2) mg/dL Total Bilirubin 0.2 (0.0-1.0) mg/dL Direct Bilirubin < 0.2 (0.0-0.5) mg/dL AST 31 (5-31) U/L ALT 38 H (0-31) U/L Alkaline Phosphatase 168 H (39-117) U/L Total Protein 7.6 (6.5-8.0) g/dL Albumin 4.4 (3.5-5.0) g/dL Lipase 9 (8-78) U/L Urine Color Yellow Urine Appearance Clear Urine pH 6.5 (5.0-9.0) Ur Specific [place] >= 1.030 H (1.005-1.025) Urine Protein Negative (Neg-Trace) mg/dL Urine Glucose (UA) Negative (Negative) mg/dL Urine Ketones Negative (Negative) mg/dL Urine Blood Negative (Negative) Urine Nitrite Negative (Negative) Ur Leukocyte Esterase Negative (Negative) Urine Test NEGATIVE (NEGATIVE) Independent Interpretation I performed an independent interpretation of an: CT Scan Radiology Impression Discussion of test interpretation with radiology: I have reviewed the radiologist's reading. Radiologist Impression: No consolidation or effusion. The gallbladder is absent. No intrahepatic biliary ductal dilatation. Common bile duct is within normal limits. Interval removal of biliary stent and resolution of intrahepatic pneumobilia. The spleen is unremarkable. Pancreas appears similar to previous examination pancreatic tail not visualized slight prominence of pancreatic duct but otherwise the pancreas within normal limits with no peripancreatic inflammatory stranding or pancreatic calcifications. Adrenal glands and kidneys are unremarkable. No ureteral stones and no hydronephrosis or hydroureter. No bowel obstruction, pneumoperitoneum, or pneumatosis. Circumferential rectal wall thickening with no perirectal stranding of uncertain significance. Appendix not visualized. Uterus within normal limits. 1 cm left ovarian cyst likely physiologic right ovarian follicles. Abdominal aorta is normal in size No acute fracture. IMPRESSION: 1. No acute findings. 2. Interval removal of biliary stent and resolution of intrahepatic pneumobilia. Medications Administered Discontinued Medications Generic Name Dose Route Start Last Admin Trade Name Freq PRN Reason Stop Dose Admin Sodium Chloride 1,000 mls @ 999 mls/hr 06/16/24 02:27 06/16/24 04:09 Ns IVCONT 06/16/24 03:27 Infused .Q1H1M ONE Infusion Iohexol 85 ml 06/16/24 03:25 06/16/24 03:25 Iohexol 350 Mg/Ml 100 Ml Infus..Btl IV 06/16/24 03:26 85 ml ONCE ONE Administration Morphine Sulfate 4 mg 06/16/24 02:27 06/16/24 03:03 Morphine Sulfate 4 Mg/Ml Cartridge IVPUSH 06/16/24 02:28 4 mg ONCE ONE Administration Protocol Ondansetron HCl 4 mg 06/16/24 02:27 06/16/24 03:03 Ondansetron Hcl 4 Mg/2 Ml Vial IVPUSH 06/16/24 02:28 4 mg ONCE ONE Administration Critical Care Time Critical Care Time Critical Care Time: Yes Total Critical Care Time: 45 Attestation: I have personally provided critical care time. Time includes review of lab data, radiology results, discussion with consultants, and monitoring for potential decompensation. Intervention performed as documented. Discharge Plan Discharge Clinical Impression: Chronic abdominal pain Patient Disposition: Home, Self-Care Instructions: Abdominal Pain (ED) Additional Instructions: Please follow-up with your primary care physician tomorrow. If you have any worsening or new symptoms, please return to the emergency room or call 911 Prescriptions: No Action heparin (porcine) 5,000 unit/mL Solution 6,300 unit IVPUSH PROTOCOL BOLUS PRN (Reason: 80 Unit/Kg - Heparin Protocol) Qty: 100 0RF heparin (porcine) 5,000 unit/mL Solution 3,100 unit IVPUSH PROTOCOL BOLUS PRN (Reason: 40 Unit/Kg - Heparin Protocol) Qty: 100 0RF hydromorphone 1 mg/mL Syringe 1 mg IVPUSH Q2H PRN (Reason: Pain, Moderate(Pain Scale 4-6)) Qty: 5 0RF Protocol: Hold for RR < HOLD and contact provider for RR < (bpm): 12 Rx Instructions: Partial Fill upon patient request. heparin(porcine) in 0.45% NaCl 25,000 unit/250 mL Parenteral Solution 25,000 unit continuous IV infusion .Q0M Qty: 100 0RF lactated Ringers Parenteral Solution 150 ml IV .per hour 2 Days Rx Instructions: until hemodynamically stable morphine 15 mg tablet 15 mg PO Q6H PRN (Reason: pain) Qty: 14 0RF Rx Instructions: Partial Fill upon patient request. ondansetron 4 mg tablet,disintegrating 4 mg PO Q6H PRN (Reason: nausea and vomiting) Qty: 10 0RF omeprazole 20 mg capsule,delayed release(DR/EC) 20 mg PO DAILY Qty: 30 0RF ondansetron 4 mg tablet,disintegrating 4 mg PO Q8H PRN (Reason: nausea and vomiting) Qty: 7 0RF omeprazole 20 mg capsule,delayed release(DR/EC) 20 mg PO DAILY Qty: 10 0RF Print Language: Sammarinese
[2024-06-16] MEDS: 0.9 % Sodium Chloride 1,000 ML 999 ML IVCONT (02:53)
[2024-06-16] MEDS: Morphine Sulfate 4 MG/ML CARTRIDGE IVPUSH (03:03)
[2024-06-16] MEDS: ondansetron HCL 4 MG/2 ML VIAL IVPUSH (03:03)
--- NOTE | 2024-06-16 03:05 | PC.NURSE ---
pt medicated per mar. Iv placed
[2024-06-16] MEDS: iohexoL 350 MG/ML 100 ML INFUS..BTL 85 ML IV (03:25)
[2024-06-16 04:31] VITALS: BP 120/62; PULSE 78; RESP 16; TEMP 36.6; O2SAT 99
== END 2024-06-16 04:32 | disposition home or self-care (01) ==
PROVIDERS: Emergency Provider Emergency Medicine; PCP Family Medicine
DX: G89.29 Other chronic pain (principal); R10.13 Epigastric pain; K86.1 Other chronic pancreatitis
CPT/HCPCS: 36415; 74177; 80053; 81003; 81025; 82248; 83690; 85025; 96361; 96374; 96375; 99284; 99285; J2270; J2405; Q9967

== ENCOUNTER → 2024-06-16 02:27 | Outpatient (BNV) | payer MEDICAID, SELFPAY | PROVIDERS: Emergency Provider Emergency Medicine; PCP Family Medicine; Visit Provider Specialist | DX: R10.13 Epigastric pain (principal); K86.1 Other chronic pancreatitis | CPT/HCPCS: 74177 ==

== ENCOUNTER 2024-07-05 00:08 | Observation (INO) | payer MEDICAID, SELFPAY ==
[2024-07-05] VITALS (9 sets, daily range): BP systolic 95–128; BP diastolic 44–76; PULSE 69–98; RESP 14–18; TEMP 36.3–37.1; O2SAT 95–99; BMI 24.3
--- NOTE | ~2024-07-05 | CT_ITS ---
CLINICAL HISTORY: pain, hx nec. pancreatitis CT Abdomen and Pelvis W Contrast COMPARISON: CT - CT ABDOMEN PELVIS W IV CON - 07/05/24 01:43 EST FINDINGS: Normal liver. Normal spleen. Normal kidneys. Normal adrenal glands. 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 Enhancing mass in the pancreatic body measuring 2.3 x 1.7 cm (series 4, image 167). No evidence of acute pancreatitis. Status post cholecystectomy. No abnormal biliary dilation. Air-fluid levels in nondistended small bowel. No mucosal thickening. No evidence of obstruction. Normal appendix. Mild diffuse bladder wall thickening. Unremarkable uterus. No ascites. No pneumoperitoneum. No lymphadenopathy. No acute fracture. No abdominal aortic aneurysm. IMPRESSION: Mass in the pancreatic body. Malignancy cannot be excluded. Consider nonemergent enhanced pancreatic MRI if not worked up in the past. Air-fluid levels in nondistended small bowel, which could be due to enteritis or dysmotility. Possible cystitis. This document has been electronically signed by: Sacha Mckeon MD on 07/05/2024 02:58:11
--- NOTE | ~2024-07-05 | MR_ITS ---
CLINICAL HISTORY: Chronic pancreatitis, abnormal CT of pancreas MR abdomen with and without gadolinium Comparison: None Findings: The pancreas appears chronically deformed with poorly seen pancreatic neck and absent pancreatic tail. There is a block of remaining pancreatic tissue in the body corresponding to the suspected mass noted on the prior CT report. There is no significant pancreatic ductal dilatation. The patient is status post cholecystectomy with associated mild intrahepatic and extrahepatic biliary ductal dilatation. There is no evidence of choledocholithiasis. The liver is otherwise unremarkable. The rest of the solid organs are within normal limits. No ascites. The visualized bowel is unremarkable. The bones and soft tissues are within normal limits. The lung bases unremarkable. IMPRESSION: No definite pancreatic mass. The enhancing area in question on the prior CT represents residual pancreatic tissue in a significantly deformed pancreas either related to necrosis, resection or atrophy in the setting of chronic pancreatitis. The pancreatic tail is absent. This document has been electronically signed by: Castro Gomez MD on 07/06/2024 11:32:23
[2024-07-05 00:37] LABS: MANUAL DIFF FLAG NO
[2024-07-05 00:42] LABS: Appearance Urine Cloudy; Color Urine Yellow; Glucose Urine UA Negative (Negative); Leukocyte Esterase Urine Moderate (2+) (Negative); Nitrite Urine Negative (Negative); PH 6.5 (5.0-9.0); UMIC TRIGGER UACC YES; Urine Blood Negative (Negative); Urine Ketones Negative (Negative); Urine Protein Trace mg/dL (Neg-Trace)
[2024-07-05 00:43] LABS: Basophils Percent Auto 0.4 % (0-2); Eosinophils Percent Auto 0.6 % (0-4); Hematocrit 34.9 % (37.0-47.0); Hemoglobin 11.4 g/dl (12.0-16.0); Imm Gran Abs Auto 0.01 X10*3/uL (0.00-0.03); Imm Gran Pct Auto 0.1 % (0.0-0.4); Lymphocytes Absolute Auto 1.8 X10*3/uL (1.2-4.9); Lymphocytes Percent Auto 25.8 % (20-40); Mean Corpuscular HGB Conc 32.7 g/dl (31.0-35.0); Mean Corpuscular Hemoglobin 25.3 pg (27.0-33.0); Mean Corpuscular Volume 77.6 fL (80.0-98.0); Mean Platelet Volume 10.2 fL (9.4-12.3); Monocytes Absolute Auto 0.4 X10*3/uL (0.1-1.2); Monocytes Percent Auto 6.1 % (2-11); Neutrophils Absolute Auto 4.6 x10*3/uL (2.0-8.3); Platelet Count 275 X10*3/uL (160-400); Red Cell Distribution Width 14.4 % (11.0-16.0); White Blood Count 6.8 X10*3/uL (4.8-10.8)
[2024-07-05 00:44] LABS: Bacteria Urine 3+ (None Seen); Hyaline Casts Urine 0-2 /LPF (0-2); RBC Urine 0-2 /HPF (0-2); Squamous Epithelial Cell Urine 0-2 /HPF (0-2); UACC Culture Trigger YES; WBC Urine >50 /HPF (0-5)
[2024-07-05 00:55] LABS: Alkaline Phosphatase 134 U/L (39-117); Anion Gap 13 (12-20); Aspartate Amino Transferase 59 U/L (5-31); Bilirubin Total 0.2 mg/dL (0.0-1.0); Blood Urea Nitrogen 7 mg/dL (9-16); Carbon Dioxide 20 mmol/L (22-29); Chloride 110 mmol/L (96-108); Creatinine Clr Calc Pharmacy 114.8; Estimated Glomerular Filt Rate > 60; Glucose Random 165 mg/dL (60-115); Lipase 5 U/L (8-78); Sodium 139 mmol/L (135-145)
[2024-07-05 01:07] LABS: Alanine Aminotransferase 47 U/L (0-31)
--- NOTE | 2024-07-05 01:08 | ED_ITS ---
HPI - Abdominal Pain General Chief Complaint: Abdominal Pain Stated Complaint: ABDOMINAL PAIN Time Seen by Provider: 07/05/24 01:07 Source: patient Limitations: no limitations History of Present Illness ED Provider: Katarzyna Hui PA-C HPI narrative: 28-year-old female with past history of prior alcohol abuse, necrotizing pancreatitis, presents with the abdominal pain times 3-4 days. Pain primarily over epigastric to mid abdomen is nonradiating. Associated abdominal bloating, nausea and diarrhea. No sick contacts with the same symptoms. Denies fever. Patient no longer consumes alcohol. Related Data Previous Rx's ?Medication ?Instructions ?Recorded heparin (porcine) 25,000 unit/250 25,000 unit (250 mL) continuous IV 09/07/23 mL in 0.45 % sodium chloride IV infusion .Q0M #100 mL soln heparin (porcine) 5,000 unit/mL 3,100 unit (0.62 mL) IVPUSH 09/07/23 injection solution PROTOCOL BOLUS PRN 40 Unit/Kg - Heparin Protocol #100 mL heparin (porcine) 5,000 unit/mL 6,300 unit (1.26 mL) IVPUSH 09/07/23 injection solution PROTOCOL BOLUS PRN 80 Unit/Kg - Heparin Protocol #100 mL hydromorphone 1 mg/mL injection 1 mg IVPUSH Q2H PRN Pain, 09/07/23 syringe Moderate(Pain Scale 4-6) #5 mL lactated Ringers 150 ml IV .per hour 2 days 09/07/23 morphine 15 mg immediate release 15 mg PO Q6H PRN pain #14 tabs 10/18/23 tablet ondansetron 4 mg disintegrating 4 mg PO Q6H PRN nausea and 10/18/23 tablet vomiting #10 tabs omeprazole 20 mg capsule,delayed 20 mg PO DAILY #30 caps 04/17/24 release omeprazole 20 mg capsule,delayed 20 mg PO DAILY #10 caps 06/06/24 release ondansetron 4 mg disintegrating 4 mg PO Q8H PRN nausea and 06/06/24 tablet vomiting #7 tabs Allergies Allergy/AdvReac Type Severity Reaction Status Date / Time No Known Allergies Allergy Verified 07/05/24 00:15 Review of Systems Review of Systems Yes all other systems are reviewed and are negative Constitutional: Denies fatigue and Denies fever(s) Cardiovascular: Denies chest pain and Denies dyspnea Respiratory: Denies cough and Denies dyspnea Gastrointestinal: Reports abdominal pain, Reports diarrhea, Reports nausea and Denies vomiting Endocrine: Denies fatigue PMF Past Medical History Attestation statement: The following information was validated with the patient. Medical History Alcohol abuse Necrotizing pancreatitis Benign tumor of breast Alcohol abuse Asthma Anxiety Surgical History No history of previous surgery Social History Social History Household Members: Family Housing: House Do you presently have visiting nurse or other home services: No Alcohol intake: former Patient Tobacco Use Status: Never used Tobacco Smoked in Last 30 Days: No Use of substances other than those prescribed or required for medical reasons: No Substance Use Type: Marijuana Advance Directives: No Advance Directives Information Provided: No Patient : No service: No Physical Exam ED Vital Signs: Vital Signs - 24 hr 07/05/24 00:15 Temperature 98.8 F Pulse Rate 94 Respiratory Rate 16 Blood Pressure 110/67 Pulse Oximetry 98 Oxygen Delivery Method Room Air BMI result Body Mass Index 24.3 Const Other: Alert, ill-appearing Orientation/consciousness: patient oriented x3 Resp Effort & Inspection: normal respiratory effort Cardio Other: Normal peripheral perfusion GI Other: Abdomen is subtly protuberant yet soft, moderate generalized tenderness to palpation with mild involuntary guarding. Skin Other: Warm dry no rash Neuro General: patient oriented x3, no focal motor deficits and CN's II-XI intact bilaterally Psych Other: Cooperative Course Reevaluation(s) Reevaluation #1: I discussed findings with the patient, she is extremely tearful, she is calling her . She understands that she should be admitted. The morphine was ineffective, we will be giving Dilaudid Time: 03:13 Medical Decision Making Medical Decision Making MDM Narrative: 28-year-old female with past history of prior alcohol abuse, necrotizing pancreatitis, presents with the abdominal pain times 3-4 days. Pain primarily over epigastric to mid abdomen is nonradiating. Associated abdominal bloating, nausea and diarrhea. No sick contacts with the same symptoms. Denies fever. Patient no longer consumes alcohol. Problem: Chronic pancreatitis History: Per patient I have considered the following differential diagnoses: Viral gastroenteritis, cholecystitis, biliary colic, gastritis, pancreatitis, necrotizing pancreatitis Plan: Given distribution of discomfort I am considering biliary versus gastric versus pancreatic etiology as cause for symptoms. I am most concerned for necrotizing pancreatitis, the patient has had it in the past. She appears unwell, with a concerning abdominal exam. We will be obtaining a CT scan, giving IV fluid antiemetic and high-dose morphine for her pain. I have independently reviewed the following tests: Labs: No leukocytosis, not anemic, no electrolyte abnormality, lipase 5, LFTs are at baseline CT abdomen and pelvis:MPRESSION: Mass in the pancreatic body. Malignancy cannot be excluded. Consider nonemergent enhanced pancreatic MRI if not worked up in the past. Air-fluid levels in nondistended small bowel, which could be due to enteritis or dysmotility. Possible cystitis. This document has been electronically signed by: Sacha Mckeon MD on 07/05/2024 02:58:11 Lab Data 07/05/24 00:29 07/05/24 00:29 Labs: Lab Results 07/05/24 Range/Units 00:29 WBC 6.8 (4.8-10.8) X10*3/uL RBC 4.50 (4.20-5.50) X10*6/uL Hgb 11.4 L (12.0-16.0) g/dl Hct 34.9 L (37.0-47.0) % MCV 77.6 L (80.0-98.0) fL MCH 25.3 L (27.0-33.0) pg MCHC 32.7 (31.0-35.0) g/dl RDW 14.4 (11.0-16.0) % Plt Count 275 (160-400) X10*3/uL MPV 10.2 (9.4-12.3) fL Immature Gran % (Auto) 0.1 (0.0-0.4) % Neut % (Auto) 67.0 (45-73) % Lymph % (Auto) 25.8 (20-40) % [place] % (Auto) 6.1 (2-11) % Eos % (Auto) 0.6 (0-4) % Baso % (Auto) 0.4 (0-2) % Lymph # (Auto) 1.8 (1.2-4.9) X10*3/uL [place] # (Auto) 0.4 (0.1-1.2) X10*3/uL Eos # (Auto) 0.0 (0.0-0.4) X10*3/uL Baso # (Auto) 0.0 (0.0-0.2) X10*3/uL Abs Immat Gran (auto) 0.01 (0.00-0.03) X10*3/uL Absolute Neuts (auto) 4.6 (2.0-8.3) x10*3/uL Absolute Nucleated RBC 0.000 (0.0-0.012) X10*3/uL Nucleated RBC % (auto) 0.0 (0.0-0.2) /100WBC Sodium 139 (135-145) mmol/L Potassium 4.0 (3.3-5.1) mmol/L Chloride 110 H (96-108) mmol/L Carbon Dioxide 20 L (22-29) mmol/L Anion Gap 13 (12-20) BUN 7 L (9-16) mg/dL Creatinine 0.63 (0.5-1.4) mg/dL Estim Creat Clear Calc 114.8 Estimated GFR > 60 Random Glucose 165 H (60-115) mg/dL Calcium 9.0 (8.4-10.2) mg/dL Total Bilirubin 0.2 (0.0-1.0) mg/dL AST 59 H (5-31) U/L ALT 47 H (0-31) U/L Alkaline Phosphatase 134 H (39-117) U/L Total Protein 7.0 (6.5-8.0) g/dL Albumin 4.0 (3.5-5.0) g/dL Lipase 5 L (8-78) U/L Beta HCG, Quant < 2 mIU/mL Urine Color Yellow Urine Appearance Cloudy Urine pH 6.5 (5.0-9.0) Ur Specific [place] 1.020 (1.005-1.025) Urine Protein Trace (Neg-Trace) mg/dL Urine Glucose (UA) Negative (Negative) mg/dL Urine Ketones Negative (Negative) mg/dL Urine Blood Negative (Negative) Urine Nitrite Negative (Negative) Ur Leukocyte Esterase Moderate (2+) H (Negative) Urine RBC 0-2 (0-2) /HPF Urine WBC >50 H (0-5) /HPF Ur Squamous Epith Cells 0-2 (0-2) /HPF Urine Bacteria 3+ (None Seen) Hyaline Casts 0-2 (0-2) /LPF Medications Administered Discontinued Medications Generic Name Dose Route Start Last Admin Trade Name Freq PRN Reason Stop Dose Admin Sodium Chloride 1,000 mls @ 999 mls/hr 07/05/24 01:30 07/05/24 01:43 Ns IV 07/05/24 02:30 999 mls/hr .Q1H1M TRUONG Administration Iohexol 85 ml 07/05/24 02:00 07/05/24 02:01 Iohexol 350 Mg/Ml 100 Ml Infus..Btl IV 07/05/24 02:01 85 ml ONCE ONE Administration Morphine Sulfate 8 mg 07/05/24 01:33 07/05/24 01:44 Morphine Sulfate 10 Mg/Ml Cartridge IVPUSH 07/05/24 01:34 8 mg ONCE ONE Administration Protocol Ondansetron HCl 4 mg 07/05/24 01:29 07/05/24 01:43 Ondansetron Hcl 4 Mg/2 Ml Vial IVPUSH 07/05/24 01:30 4 mg ONCE ONE Administration Discharge Plan Discharge Prescriptions: No Action heparin (porcine) 5,000 unit/mL Solution 6,300 unit IVPUSH PROTOCOL BOLUS PRN (Reason: 80 Unit/Kg - Heparin Protocol) Qty: 100 0RF heparin (porcine) 5,000 unit/mL Solution 3,100 unit IVPUSH PROTOCOL BOLUS PRN (Reason: 40 Unit/Kg - Heparin Protocol) Qty: 100 0RF hydromorphone 1 mg/mL Syringe 1 mg IVPUSH Q2H PRN (Reason: Pain, Moderate(Pain Scale 4-6)) Qty: 5 0RF Protocol: Hold for RR < HOLD and contact provider for RR < (bpm): 12 Rx Instructions: Partial Fill upon patient request. heparin(porcine) in 0.45% NaCl 25,000 unit/250 mL Parenteral Solution 25,000 unit continuous IV infusion .Q0M Qty: 100 0RF lactated Ringers Parenteral Solution 150 ml IV .per hour 2 Days Rx Instructions: until hemodynamically stable morphine 15 mg tablet 15 mg PO Q6H PRN (Reason: pain) Qty: 14 0RF Rx Instructions: Partial Fill upon patient request. ondansetron 4 mg tablet,disintegrating 4 mg PO Q6H PRN (Reason: nausea and vomiting) Qty: 10 0RF omeprazole 20 mg capsule,delayed release(DR/EC) 20 mg PO DAILY Qty: 30 0RF ondansetron 4 mg tablet,disintegrating 4 mg PO Q8H PRN (Reason: nausea and vomiting) Qty: 7 0RF omeprazole 20 mg capsule,delayed release(DR/EC) 20 mg PO DAILY Qty: 10 0RF Print Language: Ukrainian
[2024-07-05 01:37] LABS: HCG Quantitative < 2 mIU/mL
[2024-07-05] MEDS: 0.9 % Sodium Chloride 1,000 ML 999 ML IV (01:43)
[2024-07-05] MEDS: ondansetron HCL 4 MG/2 ML VIAL IVPUSH (01:43)
[2024-07-05] MEDS: Morphine Sulfate 10 MG/ML CARTRIDGE 8 MG IVPUSH (01:44)
[2024-07-05] MEDS: iohexoL 350 MG/ML 100 ML INFUS..BTL 85 ML IV (02:01)
[2024-07-05] MEDS: HYDROmorphone HCl 1 MG/ML SYRINGE IVPUSH ×6 (03:32→22:41)
--- NOTE | 2024-07-05 03:36 | P.HPHOSP_ITS ---
History of Present Illness Date of Service: 07/05/24 Chief Complaint: epigastric pain 28F PMH alcohol dependence now sober since 09/21/2022, chronic alcoholic pancreatitis, splenic/portal vein thrombosis, history of necrotizing pancreatitis requiring IR percutaneous drainage, complicated by disconnected pancreatic duct syndrome, presented with epigastric pain. Patient states pain has been going on for 1-2 days, 03/13, associated with diarrhea. Not relieved by morphine or Creon. Denies nausea or vomiting. Denies fever or chills. Also notes dysuria. In ED CT abdomen shows mass in the pancreatic body, no acute pancreatitis, air-fluid levels in nondistended small bowel could be related to enteritis or dysmotility, as well as signs of cystitis. UA with pyuria and bacteriuria Review of Systems 2 Review of Systems: Yes all other systems are reviewed and are negative COUNT INCLUDES THE [facility] Medical History Alcohol abuse Necrotizing pancreatitis Benign tumor of breast Alcohol abuse Asthma Anxiety Surgical History No history of previous surgery Social History Household Members: Family Housing: House Do you presently have visiting nurse or other home services: No Alcohol intake: former Patient Tobacco Use Status: Never used Tobacco Smoked in Last 30 Days: No Use of substances other than those prescribed or required for medical reasons: No Substance Use Type: Marijuana Advance Directives: No Advance Directives Information Provided: No Patient : No service: No Meds Allergies Allergy/AdvReac Type Severity Reaction Status Date / Time No Known Allergies Allergy Verified 07/05/24 00:15 Active Medications: Current Medications Lipase/Protease/Amylase (Lipase/Prot/Amylase 24/76/120k 1 Cap Capsule.Dr) 1 cap PO TIDWM TRUONG Enoxaparin Sodium (Enoxaparin Sodium 40 Mg/0.4 Ml Syringe) 40 mg SUBCUT Q24H TRUONG Hydromorphone HCl (Hydromorphone Hcl 1 Mg/Ml Syringe) 1 mg IVPUSH Q3H PRN; Protocol PRN Reason: Pain, Severe (Pain Scale 7-10) Mirtazapine (Mirtazapine 15 Mg Tablet) 15 mg PO BEDTIME TRUONG Morphine Sulfate (Morphine Sulfate Er 15 Mg Tablet.Er) 15 mg PO Q8H TRUONG Oxycodone HCl (Oxycodone Hcl Immed Release 5 Mg Tablet) 5 mg PO Q4H PRN PRN Reason: Pain, Moderate(Pain Scale 4-6) Pregabalin (Pregabalin 100 Mg Capsule) 100 mg PO BID [facility] Physical Exam 2 Vital Signs and Narrative: Vital Signs: Last Vital Signs Temp 98.8 F 07/05/24 00:15 Pulse 94 07/05/24 00:15 Resp 16 07/05/24 00:15 BP 110/67 07/05/24 00:15 Pulse Ox 98 07/05/24 00:15 O2 Del Method Room Air 07/05/24 00:15 BMI result Body Mass Index 24.3 General: AO X 3, in discomfort Resp: CTA bilateral, no accessory muscles used CVS: S1,S2,RRR GI: soft, tender, non distended Neuro: motor grossly intact, alert Psych: appropriate affect, appropriate insight Results Labs 07/05/24 00:29 07/05/24 00:29 Labs: Laboratory Results - last 24 hr 07/05/24 00:29 MCV 77.6 L MCH 25.3 L MCHC 32.7 RDW 14.4 Plt Count 275 MPV 10.2 Immature Gran % (Auto) 0.1 Neut % (Auto) 67.0 Lymph % (Auto) 25.8 Arthur % (Auto) 6.1 Eos % (Auto) 0.6 Baso % (Auto) 0.4 Lymph # (Auto) 1.8 Arthur # (Auto) 0.4 Eos # (Auto) 0.0 Baso # (Auto) 0.0 Abs Immat Gran (auto) 0.01 Absolute Neuts (auto) 4.6 Absolute Nucleated RBC 0.000 Nucleated RBC % (auto) 0.0 Anion Gap 13 Estim Creat Clear Calc 114.8 Estimated GFR > 60 Random Glucose 165 H Calcium 9.0 Total Bilirubin 0.2 AST 59 H ALT 47 H Alkaline Phosphatase 134 H Total Protein 7.0 Albumin 4.0 Lipase 5 L Beta HCG, Quant < 2 Urine Color Yellow Urine Appearance Cloudy Urine pH 6.5 Ur Specific [place] 1.020 Urine Protein Trace Urine Glucose (UA) Negative Urine Ketones Negative Urine Blood Negative Urine Nitrite Negative Ur Leukocyte Esterase Moderate (2+) H Urine RBC 0-2 Urine WBC >50 H Ur Squamous Epith Cells 0-2 Urine Bacteria 3+ Hyaline Casts 0-2 Assessment and Plan (1) Pancreatic mass: Status: Acute Plan 28F PMH alcohol dependence now sober since 09/21/2022, chronic alcoholic pancreatitis, splenic/portal vein thrombosis, history of necrotizing pancreatitis requiring IR percutaneous drainage, complicated by disconnected pancreatic duct syndrome, presented with epigastric pain Chronic alcoholic pancreatitis with acute decompensation IV opiates for breakthrough pain, continue baseline MS Contin Patient reports good appetite will continue with a regular solids Continue pancreatic enzymes UTI Ceftriaxone, follow up cultures Pancreatic mass on CT scan GI eval, question inpatient versus outpatient MRI DVT prophylaxis with Lovenox Full Code Quality Stroke Does the patient have a stroke diagnosis?: No VTE Prior VTE?: No VTE Risk Level:: Medical - moderate - high VTE Device Contraindication: Treatment Not Indicated VTE Drug Contraindication: N/A - Med Ordered
[2024-07-05] MEDS: cefTRIAXone sodium 1 GM VIAL IVPUSH (04:11)
[2024-07-05] MEDS: oxyCODONE HCl Immed Release 5 MG TABLET PO ×3 (04:59→20:13)
--- NOTE | 2024-07-05 07:30 | P.EN_ITS ---
Event Note Date of Service: 07/05/24 Event Note: Pt seen/examined, labs, meds, imging reviewed. has some epig tenderness on exam. vitals reviewed and unremarkable. 28F PMH alcohol dependence now sober since 09/21/2022, chronic alcoholic pancreatitis, splenic/portal vein thrombosis, history of necrotizing pancrea titis requiring IR percutaneous drainage, complicated by disconnected pancreatic duct syndrome, presented with epigastric pain Chronic alcoholic pancreatitis with acute decompensation IV opiates for breakthrough pain, continue baseline MS Contin Patient reports good appetite will continue with a regular solids Continue pancreatic enzymes UTI Ceftriaxone, follow up cultures Pancreatic mass on CT scan GI to advise further testing DVT prophylaxis with Lovenox, early ambulation med rec pending Time Spent With Patient Time: Total time managing care of this patient today ____ minutes.
[2024-07-05] MEDS: Lipase/Prot/Amylase 24/76/120K 1 CAP CAPSULE.DR PO ×3 (07:56→17:05)
[2024-07-05] MEDS: Pregabalin 100 MG CAPSULE PO ×2 (07:56→20:12)
[2024-07-05] MEDS: Morphine Sulfate ER 15 MG TABLET.ER PO ×2 (07:56→15:59)
[2024-07-05] MEDS: 0.9 % Sodium Chloride Flush 3 ML SYRINGE IVFLUSH ×3 (09:26→20:14)
--- NOTE | 2024-07-05 11:29 | PHA.MEDREC ---
Addendum entered by Alyssia Craven [facility] 07/05/24 12:37: [facility] reviewed Addendum entered by Ranjana Bhandari 07/05/24 12:05: Abx, bismuth, and ppi all prescribed from voting machine repairer. Original Note: Pharmacy Consult ? Medication Reconciliation Pharmacy has completed the medication reconciliation. Spoke with patient to confirm medications. She has not been taking Creon at home. She was prescribed 2 antibiotics - tetracycline 500 mg q6h x14 days and metronidazole 500 mg q8h x14 days. She reports she never started tetracycline and has been taking metronidazole 1 tab once daily for a UTI. She also has a prescription for bismuth chewable tabs x 14 days but she said she is not taking that. She reports taking her pantoprazole bid prn for heartburn. Roshni said she was unable to refill pantoprazole due to insurance requiring a 90 DS refill, her prescriber sent an rx for omeprazole but insurance does not cover it either. Antibiotics and bismuth picked up 06/05/24 and pantoprazole picked up 05/29/24 per Roshni.
[2024-07-05] MEDS: Flu Vacc TS2024-25(6mos up)/PF 0.5 ML SYRINGE IM (12:23)
--- NOTE | 2024-07-05 18:54 | P.EN_ITS ---
Event Note Date of Service: 07/05/24 Event Note: GI Consult-Full note dictated. History from patient, RN, and EMR. Imp: Acute/Chronic pancreatitis with complicated course due to previous EtOH. Followed by [facility] GI, Dr. Scherer. She has chronic pain with recent increase in symptoms but no lab or CT evidence of acute pancreatitis. CT describes a new lesion . I doubt neoplasm but needs to be assessed. She presently appears very comfortable and she just finished her dinner tray. Rec: MRI/MRCP tomorrow if they can do it on a Sunday. If it can't be done tomorrow I told the patient that she can go home if she is feeling up to it and call Dr. Scherer at [facility] on Sunday. He can arrange it there for her as an outpatient, unless she has already had imaging there that describes similar findings and therefore she may not need it. D/W patient in detail and she is comfortable with this plan. Thanks. Time Spent With Patient Time: Total time managing care of this patient today ____ minutes.
[2024-07-05] MEDS: Mirtazapine 15 MG TABLET PO (20:12)
[2024-07-06] MEDS: Morphine Sulfate ER 15 MG TABLET.ER PO ×2 (00:16→07:37)
[2024-07-06] MEDS: Milk of Magnesia 30 ML ORAL.SUSP PO (00:16)
[2024-07-06] MEDS: OLANZapine ODT 10 MG TAB.RAPDIS 20 MG TRANSLINGU (00:41)
--- NOTE | 2024-07-06 02:48 | CONS_ITS ---
DATE OF SERVICE: 07/05/2024 REASON FOR CONSULTATION: History of pancreatitis and abnormal CT scan of pancreas. HISTORY OF PRESENT ILLNESS: This has been obtained from the patient and the medical record. Unfortunately I do not have any of her [facility] records for review. The patient is a 28-year-old female with a previous history of alcohol abuse with reported sobriety since September of 2023. At that time, she was admitted here with severe pancreatitis with associated necrosis. She required transfer to [facility], where she describes undergoing at least 1 percutaneous drainage of the pancreas. She has had numerous ER visits subsequent to that for abdominal pain. She describes being followed by Dr. Scherer in the GI department at [facility] and describes undergoing endoscopic ultrasounds and other procedures with him. She describes undergoing a cholecystectomy in May at [facility]. At that time, it appears that she had a biliary stent placed according to a CT scan that was obtained in the ER here in May. That stent was subsequently removed. She may have had a pancreatic duct stent based on her description of her course at [facility] as well. In any event, she reports that things were at her baseline in regard to abdominal pain on her outpatient regimen of daily pain medication including morphine. However, due to increasing pain and some diarrhea, she came to the ER yesterday and was admitted. CT scan in the ER describes an enhancing mass in the pancreatic body measuring 2.3 x 1.7 cm, which appears to be a new finding compared to at least the CT scan here from June 16. On the CT scan done on admission here, there was no sign of any surrounding inflammation nor fluid. There is no biliary dilatation. Her lipase level in the ER was only 5. She is on Creon at home. MEDICATIONS: At home included hydroxyzine, mirtazapine, morphine, olanzapine, Zofran, pregabalin. Her medications here include acetaminophen, Tums, IV ceftriaxone, Lovenox, Dilaudid p.r.n., Creon. Remeron, morphine extended release, oxycodone and pregabalin. PAST MEDICAL HISTORY: Necrotizing pancreatitis due to alcohol abuse in September of 2023. This was treated at [facility] with percutaneous drainage. She has been followed by Dr. Scherer at [facility] GI. Asthma. She denies any history of heart disease, diabetes, stroke, nor kidney disease. She had her gallbladder removed in May 2024. SOCIAL HISTORY: She currently does not use alcohol at all. She has 3 children. FAMILY HISTORY: Noncontributory. REVIEW OF SYSTEMS: CONSTITUTIONAL: She has been feeling fairly well prior to this admission due to the increasing pain. CARDIAC: No chest pain. PULMONARY: No coughing or hemoptysis. GI: As above. URINARY: No dysuria. No hematuria. NEUROLOGIC: No headache or seizures. PHYSICAL EXAMINATION: GENERAL: The patient is a pleasant, alert, comfortable-appearing female. She is lying comfortably in bed. She just finished her dinner without any ill effects. SKIN: Warm and dry. Nonjaundiced. ABDOMEN: Soft, nondistended and nontender other than some mild epigastric tenderness to palpation. There is no rebound or guarding. EXTREMITIES: Without edema. LABORATORY DATA: White blood cell count 6.8, hemoglobin 11.4, and platelets 275,000. Sodium 139, potassium 4.0, chloride 110, CO2 of 20, BUN 7, and creatinine 0.6. Total bilirubin 0.2, AST 59, ALT 47, alkaline phosphatase 134, albumin 4.0, and lipase 5. test negative. Her CT scan describes an enhancing mass in the pancreatic body, measuring 2.3 x 1.7 cm in size, but no evidence of acute pancreatitis. There is no biliary dilatation. IMPRESSION: At the present time, the patient appears quite stable and comfortable. She does not show any laboratory evidence or CT evidence of acute pancreatitis. However, the CT scan findings of the possible mass may represent some increased changes due to some baseline residual abnormality in her pancreas and/or underlying pancreatitis due to her reported increased pain. I doubt this represents a neoplasm given her young age, but I do think it needs to be assessed since it appears to be new as compared to other studies from previous imaging studies here. However, I did review with her that given her extensive evaluation at [facility]. she may very well have had MRIs there describing similar findings. At this point, she appears very stable and is tolerating her diet. I have ordered a MRI with MRCP for tomorrow if it is able to be done on a Sunday. I did advise her that if it cannot be done tomorrow and she is otherwise feeling stable, she could go home and follow up with Dr. Scherer at [facility] to see if he thinks she needs to have it done at his facility. Again, she may have already had a study there and therefore may not even need this study done. From her description it sounds like she has also had endoscopic ultrasounds, but depending upon the workup of this current possible lesion she may need a followup endoscopic ultrasound as well. This has been reviewed with the patient in detail and she is comfortable with the plan. Thanks for the consultation. MD BINTA Vick/DERECK / [phone] MTDD
[2024-07-06] MEDS: cefTRIAXone sodium 1 GM VIAL IVPUSH (03:23)
[2024-07-06] MEDS: HYDROmorphone HCl 1 MG/ML SYRINGE IVPUSH ×2 (03:29→10:52)
[2024-07-06 03:53] VITALS: BP 97/59; PULSE 87; RESP 18; TEMP 36.3; O2SAT 97
[2024-07-06 06:32] LABS: Hematocrit 41.2 % (37.0-47.0); Hemoglobin 12.6 g/dl (12.0-16.0); Mean Corpuscular HGB Conc 30.6 g/dl (31.0-35.0); Mean Corpuscular Hemoglobin 24.7 pg (27.0-33.0); Mean Corpuscular Volume 80.6 fL (80.0-98.0); Mean Platelet Volume 10.6 fL (9.4-12.3); Platelet Count 243 X10*3/uL (160-400); Red Blood Count 5.11 X10*6/uL (4.20-5.50); Red Cell Distribution Width 14.4 % (11.0-16.0); White Blood Count 6.6 X10*3/uL (4.8-10.8)
[2024-07-06 06:57] LABS: Alanine Aminotransferase 56 U/L (0-31); Albumin Level 4.5 g/dL (3.5-5.0); Alkaline Phosphatase 153 U/L (39-117); Anion Gap 15 (12-20); Aspartate Amino Transferase 50 U/L (5-31); Bilirubin Direct < 0.2 mg/dL (0.0-0.5); Bilirubin Total 0.2 mg/dL (0.0-1.0); Blood Urea Nitrogen 9 mg/dL (9-16); Calcium 9.3 mg/dL (8.4-10.2); Carbon Dioxide 24 mmol/L (22-29); Chloride 105 mmol/L (96-108); Creatinine Clr Calc Pharmacy 104.8; Estimated Glomerular Filt Rate > 60; Glucose Random 118 mg/dL (60-115); Lipase 5 U/L (8-78); Magnesium 2.4 mg/dL (1.6-2.6); Potassium 4.1 mmol/L (3.3-5.1); Sodium 140 mmol/L (135-145); Total Protein 7.8 g/dL (6.5-8.0)
[2024-07-06] MEDS: Lipase/Prot/Amylase 24/76/120K 1 CAP CAPSULE.DR PO ×2 (07:37→12:02)
[2024-07-06] MEDS: Acetaminophen 325 MG TABLET 650 MG PO (07:37)
[2024-07-06] MEDS: Pregabalin 100 MG CAPSULE PO (07:37)
[2024-07-06] MEDS: 0.9 % Sodium Chloride Flush 3 ML SYRINGE IVFLUSH (07:38)
[2024-07-06] MEDS: Enoxaparin Sodium 40 MG/0.4 ML SYRINGE SUBCUT (07:39)
[2024-07-06 07:53] VITALS: BP 105/62; PULSE 84; RESP 16; TEMP 37.1; O2SAT 99
--- NOTE | 2024-07-06 09:20 | MHC.CM.PN ---
CM met with Patient at bedside and addressed CAPONE with her, providing Patient with the original and a copy has been placed on the chart. Patient lives in a house with her Mother & Father-Law, her Fiance and her 4 year old Daughter. Home/self care is Patient's goal and CM has initiated and will follow for dc planning. PCP is Dr. Ibeth Lassiter and Tobias will transport to home.
[2024-07-06] MEDS: oxyCODONE HCl Immed Release 5 MG TABLET PO (10:32)
[2024-07-06] MEDS: gadobutroL 7.5 ML VIAL IVPUSH (10:34)
--- NOTE | 2024-07-06 12:04 | PM.DS ---
DS: Providers Provider Date of Service: 07/06/24 Date of admission: 07/05/24 03:34 Date of discharge: 07/06/24 Primary care physician: Ibeth Lassiter MD Consults: 07/05/24 03:32 Consult to Gastroenterology Routine Consulting Provider: Chris Chandler Reason for consultation: chronic pancreatitis, pancreas mass DS: Diagnosis Discharge Diagnosis (1) Pancreatic mass: Status: Acute DS: Summary Hospital Course Hospital Course: Chief Complaint: Epigastric pain History of Present Illness: A 28-year-old female with a past medical history of alcohol dependence (sober since 09/21/2022), chronic alcoholic pancreatitis, splenic/portal vein thrombosis, and a history of necrotizing pancreatitis requiring IR percutaneous drainage?complicated by disconnected pancreatic duct syndrome?presented with epigastric pain.The patient reports that the pain has been present for 1?2 days, rated 10/10, and is associated with diarrhea. The pain has not been relieved by morphine or Creon. She denies nausea, vomiting, fever, or chills. However, she notes dysuria. Emergency Department Course: A CT abdomen revealed a mass in the pancreatic body, no signs of acute pancreatitis, air-fluid levels in a nondistended small bowel (possibly related to enteritis or dysmotility), and findings suggestive of cystitis. Urinalysis showed pyuria and bacteriuria. The patient was admitted and started on ceftriaxone for a urinary tract infection. Hospital course: A GI consultation was obtained due to concern for a pancreatic mass. Subsequent MRCP showed no definite pancreatic mass. The previously noted enhancing area on CT likely represents residual pancreatic tissue within a significantly deformed pancreas, possibly related to necrosis, prior resection, or atrophy in the setting of chronic pancreatitis. The pancreatic tail was noted to be absent. The patient?s pain has significantly improved, and she is tolerating a regular diet. She is advised to follow up with her support representative, Dr. Scherer, at [facility]. Her presentation is most consistent with [id number] pancreatitis and a UTI. She will be discharged with oral Cefuroxime (Ceftin) to complete a total of 5 days of antibiotic therapy. Urine culture is growing a Gram-negative dotty, with sensitivities pending; however, she is clinically responding to ceftriaxone and currently reports no urinary symptoms. Final diagnoses: Acute on chronic pancreatitis UTI Epigastric pain Time Attestation Discharge Coordination Time (in mins): 35 Quality: Safe Use of Opioids Does Pt have an Active Cancer Diagnosis on the Problem List?: No Quality: Stroke Does the patient have a stroke diagnosis?: No Physical Exam Vital Signs: Vital Signs: Last Vital Signs Temp 98.8 F 07/06/24 07:53 Pulse 84 07/06/24 07:53 Resp 16 07/06/24 07:53 BP 105/62 07/06/24 07:53 Pulse Ox 99 07/06/24 07:53 O2 Del Method Room Air 07/06/24 07:53 BMI result Body Mass Index 24.3 Const: Other: General: AO X 3, no acute distress Resp: CTA bilateral CVS: S1,S2,RRR GI: +BS, NT, no distention Skin: No rash Neuro: motor grossly intact Psych: appropriate affect DS: Data Data Completed and Pending Completed studies during hospitalization [Text1]: Procedures Detoxification Services for Substance Abuse Treatment (09/04/23) Labs on day of discharge: Laboratory Results - last 24 hr 07/06/24 06:25 WBC 6.6 RBC 5.11 Hgb 12.6 Hct 41.2 MCV 80.6 MCH 24.7 L MCHC 30.6 L RDW 14.4 Plt Count 243 MPV 10.6 Absolute Nucleated RBC 0.000 Nucleated RBC % (auto) 0.0 Sodium 140 Potassium 4.1 Chloride 105 Carbon Dioxide 24 Anion Gap 15 BUN 9 Creatinine 0.69 Estim Creat Clear Calc 104.8 Estimated GFR > 60 Random Glucose 118 H Calcium 9.3 Magnesium 2.4 Total Bilirubin 0.2 Direct Bilirubin < 0.2 AST 50 H ALT 56 H Alkaline Phosphatase 153 H Total Protein 7.8 Albumin 4.5 Lipase 5 L Preliminary micro results at discharge 07/05/24 Unknown Urine Culture - Preliminary Urine clean catch - Clean Catch Midstream Gram negative dotty Discharge Plan Discharge Anticipated Discharge Date/Time: 07/06/24 12:04 Patient Disposition: Home, Self-Care Discharge Diagnosis: Pancreatitis, UTI Referrals: Ibeth Lassiter MD [Primary Care Provider] - 1 Week Discharge Medications: New cefuroxime axetil 250 mg tablet 250 mg PO BID 3 Days Qty: 6 0RF Rx Instructions: next dose tomorrow morning Continued ibuprofen 800 mg tablet 800 mg PO Q8H PRN (Reason: Pain) hydroxyzine pamoate 50 mg capsule 50 mg PO Q6H PRN (Reason: anxiety) tramadol 50 mg tablet 50 mg PO Q6H PRN (Reason: pain) olanzapine 20 mg tablet,disintegrating 20 mg PO BEDTIME pantoprazole 40 mg tablet,delayed release (DR/EC) 40 mg PO BID PRN (Reason: Heartburn) mirtazapine 15 mg tablet 15 mg PO BEDTIME morphine 15 mg tablet 22.5 mg PO Q12H pregabalin 100 mg capsule 100 mg PO BID metronidazole 500 mg tablet 500 mg PO Q8H Patient Comments: patient reports she has been taking 1 tab once daily tetracycline 500 mg capsule 500 mg PO Q6H Patient Comments: patient reports she has not been taking bismuth subsalicylate 262 mg tablet,chewable 2 tab PO QID Patient Comments: patient reports she has not been taking ondansetron 4 mg tablet,disintegrating 4 mg PO Q8H PRN (Reason: nausea and vomiting) Qty: 7 0RF Discharge Orders: Discharge Order (Routine); Ordered 07/06/24 Ordered By: Alexandro Garza Diet: Advance to usual diet Activity on Discharge: As tolerated Stand Alone Forms: Patient Portal Discharge page Print Language: French Care Plan Goals: recovery from uti, and acute on chronic pancreatitis Health Concerns: uti recurrent pancreatitis what was thought to be a pancreatic mass, turned out not to be a mass on the MRI Plan of Treatment: take Cefuroxime for UTI Follow up with your primary care doctor and your GI doctor Gilmer at [facility], call for appointment. avoid alcohol Assessment: see above
--- NOTE | 2024-07-06 12:29 | MHC.CM.PN ---
Patient has been medically cleared for dc to home today, self care.
[2024-07-08 08:32] LABS: Carbohydrate Antigen 19-9 32 U/mL (<34)
== END 2024-07-06 13:39 | disposition home or self-care (01) ==
LOC: HO.ED 03:14 → HO.EDOVER 03:38 → HO.S3 10:38
PROVIDERS: Internal Medicine; Physician Assistant Medical; Admitting Provider Internal Medicine; Emergency Provider Emergency Medicine; PCP Family Medicine; Visit Provider Internal Medicine
DX: K86.0 Alcohol-induced chronic pancreatitis (principal); N39.0 Urinary tract infection, site not specified; R10.13 Epigastric pain; R11.0 Nausea; R19.7 Diarrhea, unspecified; R93.89 Abnormal findings on diagnostic imaging of other specified body structures; Z79.899 Other long term (current) drug therapy
CPT/HCPCS: 36415; 74177; 74183; 80048; 80053; 80076; 81001; 83690; 83735; 84702; 85025; 85027; 86301; 87086; 87186; 90471; 90656; 96361; 96372; 96374; 96375; 96376; 99221; 99285; A9585; J0696; J1171; J1650; J2270; J2405; Q9967

== ENCOUNTER → 2024-07-05 01:28 | Outpatient (BNV) | payer MEDICAID, SELFPAY | PROVIDERS: Emergency Provider Emergency Medicine; PCP Family Medicine; Visit Provider Radiology Diagnostic Radiology | DX: K86.1 Other chronic pancreatitis (principal) | CPT/HCPCS: 74177 ==

== ENCOUNTER 2024-07-05 03:34 | Outpatient (BNV) | payer MEDICAID, SELFPAY | END 2024-07-06 08:00 | PROVIDERS: Admitting Provider Internal Medicine; Emergency Provider Emergency Medicine; PCP Family Medicine; Visit Provider Radiology Diagnostic Radiology | DX: K86.1 Other chronic pancreatitis (principal) | CPT/HCPCS: 74183 ==

== ENCOUNTER → 2024-07-05 03:34 | Outpatient (BNV) | payer MEDICAID, SELFPAY | PROVIDERS: Admitting Provider Internal Medicine; Emergency Provider Emergency Medicine; PCP Family Medicine; Visit Provider Internal Medicine | DX: K86.0 Alcohol-induced chronic pancreatitis (principal) | CPT/HCPCS: 99223; 99239; 99499 ==

== ENCOUNTER 2024-07-11 02:00 | Emergency (ER) | payer MEDICAID, SELFPAY ==
[2024-07-11 02:04] VITALS: BP 120/80; PULSE 111; O2SAT 100
[2024-07-11 02:11] VITALS: BP 122/73; PULSE 103; RESP 20; TEMP 36.8; O2SAT 98; BMI 23.2
[2024-07-11 02:25] LABS: Basophils Percent Auto 0.6 % (0-2); Eosinophils Percent Auto 0.3 % (0-4); Hematocrit 35.9 % (37.0-47.0); Hemoglobin 11.8 g/dl (12.0-16.0); Imm Gran Abs Auto 0.01 X10*3/uL (0.00-0.03); Imm Gran Pct Auto 0.1 % (0.0-0.4); Lymphocytes Absolute Auto 1.8 X10*3/uL (1.2-4.9); Lymphocytes Percent Auto 25.8 % (20-40); MANUAL DIFF FLAG NO; Mean Corpuscular HGB Conc 32.9 g/dl (31.0-35.0); Mean Corpuscular Hemoglobin 25.3 pg (27.0-33.0); Mean Platelet Volume 10.6 fL (9.4-12.3); Monocytes Absolute Auto 0.3 X10*3/uL (0.1-1.2); Monocytes Percent Auto 4.4 % (2-11); Neutrophils Absolute Auto 4.7 x10*3/uL (2.0-8.3); Neutrophils Percent Auto 68.8 % (45-73); Platelet Count 250 X10*3/uL (160-400); Red Blood Count 4.66 X10*6/uL (4.20-5.50); Red Cell Distribution Width 14.6 % (11.0-16.0); White Blood Count 6.9 X10*3/uL (4.8-10.8)
[2024-07-11 02:45] LABS: Alanine Aminotransferase 51 U/L (0-31); Albumin Level 4.3 g/dL (3.5-5.0); Anion Gap 13 (12-20); Aspartate Amino Transferase 34 U/L (5-31); Bilirubin Total 0.2 mg/dL (0.0-1.0); Blood Urea Nitrogen 9 mg/dL (9-16); Calcium 8.9 mg/dL (8.4-10.2); Carbon Dioxide 18 mmol/L (22-29); Chloride 111 mmol/L (96-108); Creatinine Clr Calc Pharmacy 111.3; Estimated Glomerular Filt Rate > 60; Glucose Random 126 mg/dL (60-115); HCG Quantitative < 2 mIU/mL; Lipase 7 U/L (8-78); Potassium 3.4 mmol/L (3.3-5.1); Sodium 139 mmol/L (135-145); Total Protein 7.6 g/dL (6.5-8.0)
[2024-07-11 02:46] LABS: Alkaline Phosphatase 150 U/L (39-117)
--- NOTE | 2024-07-11 04:32 | ED_ITS ---
HPI - Abdominal Pain General Chief Complaint: Abdominal Pain Stated Complaint: Pain from Pancreatitis & Headache x5 hours Time Seen by Provider: 07/11/24 03:50 Source: patient Mode of arrival: ambulatory Limitations: no limitations History of Present Illness ED Provider: HPI narrative: Patient's history of your recurrent pancreatitis just discharged on 07/06/2024 had MRI of the abdomen which showed chronic changes in the pancreas comes back as still having the pain patient is taking morphine p.o. no nausea no vomiting no fever no chills Related Data Home Medications ?Medication ?Instructions ?Recorded ?Confirmed bismuth subsalicylate 262 mg 2 tab PO QID 07/05/24 07/05/24 chewable tablet hydroxyzine pamoate 50 mg capsule 50 mg PO Q6H PRN anxiety 07/05/24 07/05/24 ibuprofen 800 mg tablet 800 mg PO Q8H PRN Pain 07/05/24 07/05/24 metronidazole 500 mg tablet 500 mg PO Q8H 07/05/24 07/05/24 mirtazapine 15 mg tablet 15 mg PO BEDTIME 07/05/24 07/05/24 morphine 15 mg immediate release 22.5 mg PO Q12H 07/05/24 07/05/24 tablet olanzapine 20 mg disintegrating 20 mg PO BEDTIME 07/05/24 07/05/24 tablet pantoprazole 40 mg tablet,delayed 40 mg PO BID PRN Heartburn 07/05/24 07/05/24 release pregabalin 100 mg capsule 100 mg PO BID 07/05/24 07/05/24 tetracycline 500 mg capsule 500 mg PO Q6H 07/05/24 07/05/24 tramadol 50 mg tablet 50 mg PO Q6H PRN pain 07/05/24 07/05/24 Previous Rx's ?Medication ?Instructions ?Recorded ondansetron 4 mg disintegrating 4 mg PO Q8H PRN nausea and 06/06/24 tablet vomiting #7 tabs cefuroxime axetil 250 mg tablet 250 mg PO BID 3 days #6 tabs 07/06/24 Allergies Allergy/AdvReac Type Severity Reaction Status Date / Time No Known Allergies Allergy Verified 07/11/24 02:14 Review of Systems Review of Systems Yes all other systems are reviewed and are negative PMFSH Past Medical History Medical History Alcohol abuse Necrotizing pancreatitis Benign tumor of breast Alcohol abuse Asthma Anxiety Surgical History No history of previous surgery Social History Social History Household Members: Family Housing: House Do you presently have visiting nurse or other home services: No Alcohol intake: former Patient Tobacco Use Status: Never used Tobacco Substance Use Type: Marijuana Advance Directives: No Do you have a plan to hurt others: No Plan service: No Physical Exam ED Vital Signs: Vital Signs - 24 hr 07/11/24 02:11 07/11/24 04:56 Temperature 98.3 F 98.4 F Pulse Rate 103 H 84 Respiratory Rate 20 16 Blood Pressure 122/73 115/77 Pulse Oximetry 98 98 Oxygen Delivery Method Room Air Room Air BMI result Body Mass Index 23.2 Appearance: Alert. Oriented X3. No acute distress. Eyes: No pallor or icterus ENT: Pharynx normal. Oral Mucosa moist Neck: Normal inspection. Neck supple. CVS: Normal heart rate and rhythm. Pulses normal. Respiratory: No respiratory distress. Equal air entry bilateral, no wheezing/rales/rhonchi Abdomen: Soft and mild tenderness mid abdomen and epigastric area Bowel sounds are present, no mass palpable, no CVA tenderness Skin: Skin warm and dry. Normal skin color. Normal skin turgor. Extremities: No lower extremity edema. No calf tenderness Neuro: Oriented X 3. No motor deficit. Medical Decision Making Medical Decision Making [facility] Narrative: Patient with history of chronic pancreatitis with recent MRI negative for any fluid collection labs are stable patient does have pain medication at home no nausea no vomiting patient advised to continue her pain medication Lab Data [facility] Lab Attestation statement: I reviewed the patient's lab results. 07/11/24 02:18 07/11/24 02:18 Labs: Lab Results 07/11/24 Range/Units 02:18 WBC 6.9 (4.8-10.8) X10*3/uL RBC 4.66 (4.20-5.50) X10*6/uL Hgb 11.8 L (12.0-16.0) g/dl Hct 35.9 L (37.0-47.0) % MCV 77.0 L (80.0-98.0) fL MCH 25.3 L (27.0-33.0) pg MCHC 32.9 (31.0-35.0) g/dl RDW 14.6 (11.0-16.0) % Plt Count 250 (160-400) X10*3/uL MPV 10.6 (9.4-12.3) fL Immature Gran % (Auto) 0.1 (0.0-0.4) % Neut % (Auto) 68.8 (45-73) % Lymph % (Auto) 25.8 (20-40) % [place] % (Auto) 4.4 (2-11) % Eos % (Auto) 0.3 (0-4) % Baso % (Auto) 0.6 (0-2) % Lymph # (Auto) 1.8 (1.2-4.9) X10*3/uL [place] # (Auto) 0.3 (0.1-1.2) X10*3/uL Eos # (Auto) 0.0 (0.0-0.4) X10*3/uL Baso # (Auto) 0.0 (0.0-0.2) X10*3/uL Abs Immat Gran (auto) 0.01 (0.00-0.03) X10*3/uL Absolute Neuts (auto) 4.7 (2.0-8.3) x10*3/uL Absolute Nucleated RBC 0.000 (0.0-0.012) X10*3/uL Nucleated RBC % (auto) 0.0 (0.0-0.2) /100WBC Sodium 139 (135-145) mmol/L Potassium 3.4 (3.3-5.1) mmol/L Chloride 111 H (96-108) mmol/L Carbon Dioxide 18 L (22-29) mmol/L Anion Gap 13 (12-20) BUN 9 (9-16) mg/dL Creatinine 0.65 (0.5-1.4) mg/dL Estim Creat Clear Calc 111.3 Estimated GFR > 60 Random Glucose 126 H (60-115) mg/dL Calcium 8.9 (8.4-10.2) mg/dL Total Bilirubin 0.2 (0.0-1.0) mg/dL AST 34 H (5-31) U/L ALT 51 H (0-31) U/L Alkaline Phosphatase 150 H (39-117) U/L Total Protein 7.6 (6.5-8.0) g/dL Albumin 4.3 (3.5-5.0) g/dL Lipase 7 L (8-78) U/L Beta HCG, Quant < 2 mIU/mL Medications Administered Discontinued Medications Generic Name Dose Route Start Last Admin Trade Name Freq PRN Reason Stop Dose Admin Morphine Sulfate 15 mg 07/11/24 04:37 07/11/24 04:53 Morphine Sulfate Immed Release 15 Mg Tablet PO 07/11/24 04:38 15 mg ONCE ONE Administration Discharge Plan Discharge Clinical Impression: Abdominal pain Patient Disposition: Home, Self-Care Instructions: Chronic Abdominal Pain (ED) Additional Instructions: Your chronic abdominal pain from pancreatitis at this time there is no evidence of acute inflammation drink plenty of fluids take your pain medication as prescribed by your PCP Prescriptions: No Action ibuprofen 800 mg tablet 800 mg PO Q8H PRN (Reason: Pain) hydroxyzine pamoate 50 mg capsule 50 mg PO Q6H PRN (Reason: anxiety) tramadol 50 mg tablet 50 mg PO Q6H PRN (Reason: pain) olanzapine 20 mg tablet,disintegrating 20 mg PO BEDTIME pantoprazole 40 mg tablet,delayed release (DR/EC) 40 mg PO BID PRN (Reason: Heartburn) mirtazapine 15 mg tablet 15 mg PO BEDTIME morphine 15 mg tablet 22.5 mg PO Q12H pregabalin 100 mg capsule 100 mg PO BID metronidazole 500 mg tablet 500 mg PO Q8H Patient Comments: patient reports she has been taking 1 tab once daily tetracycline 500 mg capsule 500 mg PO Q6H Patient Comments: patient reports she has not been taking bismuth subsalicylate 262 mg tablet,chewable 2 tab PO QID Patient Comments: patient reports she has not been taking cefuroxime axetil 250 mg tablet 250 mg PO BID 3 Days Qty: 6 0RF Rx Instructions: next dose tomorrow morning ondansetron 4 mg tablet,disintegrating 4 mg PO Q8H PRN (Reason: nausea and vomiting) Qty: 7 0RF Interventions: ED Discharge Assessment Last Done: 07/11/24 04:56 Discharge Date/Time: 07/11/24 04:57 Print Language: Yakut
[2024-07-11] MEDS: Morphine Sulfate Immed Release 15 MG TABLET PO (04:53)
[2024-07-11 04:56] VITALS: BP 115/77; PULSE 84; RESP 16; TEMP 36.9; O2SAT 98
== END 2024-07-11 04:57 | disposition home or self-care (01) ==
PROVIDERS: Emergency Provider Internal Medicine; PCP Family Medicine
DX: R10.9 Unspecified abdominal pain (principal); R51.9 Headache, unspecified; Z79.899 Other long term (current) drug therapy
CPT/HCPCS: 36415; 80053; 83690; 84702; 85025; 99283

== ENCOUNTER 2024-07-16 06:18 | Observation (INO) | payer MEDICAID, SELFPAY ==
--- NOTE | ~2024-07-16 | US_ITS ---
EXAMINATION: US ABDOMEN COMPLETE CLINICAL INFORMATION: . Left upper quadrant pain. History of pancreatitis.. COMPARISON: Correlated to MRI dated July 06, [address] dated July 05, 2024. TECHNIQUE: Real-time imaging of the abdominal viscera using grayscale and color Doppler technique. FINDINGS: PANCREAS: No peripancreatic fluid collections. Inadequate evaluation of the entirety. ABDOMINAL AORTA: The proximal, mid, and distal segments are normal in caliber. INFERIOR VENA CAVA: Visualized portions are normal. LIVER: Liver measures 15 cm. No nodular contour. No solid or cystic lesion. Normal echotexture. No intrahepatic biliary ductal dilatation. GALLBLADDER: Status post cholecystectomy. COMMON BILE DUCT: 6 mm in diameter.. RIGHT KIDNEY: 10 cm. Normal echotexture. Normal renal cortical thickness. No hydronephrosis. No solid or cystic lesion. Normal flow on color Doppler interrogation of the renal hilum. LEFT KIDNEY: 11 cm. Normal echotexture. Normal renal cortical thickness. No hydronephrosis. No solid or cystic lesion. Normal flow on color Doppler interrogation of the renal hilum. SPLEEN: 12 cm.. FREE FLUID: None. US/US abdomen complete IMPRESSION: Status post cholecystectomy. No hydronephrosis in either kidney. No ascites. Up to normal limits spleen size. Normal liver. Inadequate evaluation of the pancreas. Electronically signed by: Ryan Wilkins MD 07/16/2024 03:28 PM [place]
[2024-07-16 06:38] VITALS: BP 114/75; PULSE 90; RESP 17; TEMP 36.5; O2SAT 97; BMI 21.2
[2024-07-16 07:13] LABS: MANUAL DIFF FLAG NO
[2024-07-16 07:16] LABS: Basophils Percent Auto 0.6 % (0-2); Eosinophils Absolute Auto 0.1 X10*3/uL (0.0-0.4); Eosinophils Percent Auto 0.7 % (0-4); Hematocrit 38.9 % (37.0-47.0); Hemoglobin 12.5 g/dl (12.0-16.0); Imm Gran Abs Auto 0.01 X10*3/uL (0.00-0.03); Imm Gran Pct Auto 0.1 % (0.0-0.4); Lymphocytes Absolute Auto 1.9 X10*3/uL (1.2-4.9); Lymphocytes Percent Auto 28.2 % (20-40); Mean Corpuscular HGB Conc 32.1 g/dl (31.0-35.0); Mean Corpuscular Hemoglobin 24.8 pg (27.0-33.0); Mean Platelet Volume 10.2 fL (9.4-12.3); Monocytes Absolute Auto 0.4 X10*3/uL (0.1-1.2); Monocytes Percent Auto 5.5 % (2-11); Neutrophils Absolute Auto 4.3 x10*3/uL (2.0-8.3); Neutrophils Percent Auto 64.9 % (45-73); Platelet Count 309 X10*3/uL (160-400); Red Blood Count 5.05 X10*6/uL (4.20-5.50); Red Cell Distribution Width 14.8 % (11.0-16.0); White Blood Count 6.7 X10*3/uL (4.8-10.8)
[2024-07-16 07:27] LABS: Alanine Aminotransferase 26 U/L (0-31); Albumin Level 4.4 g/dL (3.5-5.0); Alkaline Phosphatase 159 U/L (39-117); Anion Gap 12 (12-20); Aspartate Amino Transferase 21 U/L (5-31); Bilirubin Total 0.2 mg/dL (0.0-1.0); Blood Urea Nitrogen 9 mg/dL (9-16); Calcium 8.8 mg/dL (8.4-10.2); Carbon Dioxide 20 mmol/L (22-29); Chloride 112 mmol/L (96-108); Creatinine Clr Calc Pharmacy 106.3; Estimated Glomerular Filt Rate > 60; Glucose Random 135 mg/dL (60-115); Lipase 6 U/L (8-78); Potassium 3.8 mmol/L (3.3-5.1); Sodium 140 mmol/L (135-145); Total Protein 7.6 g/dL (6.5-8.0)
--- NOTE | 2024-07-16 13:29 | ED.ABDPAIN ---
HPI - Abdominal Pain General Chief Complaint: Abdominal Pain Stated Complaint: pancreatitis? Time Seen by Provider: 07/16/24 12:36 Source: patient and RN notes reviewed Mode of arrival: ambulatory Limitations: no limitations History of Present Illness ED Provider: Dai Torrez PA-C HPI narrative: This is a 28-year-old female, with a past medical history of prior alcohol abuse, chronic alcoholic pancreatitis, splenic/portal vein thrombosis, history of necrotizing pancreatitis requiring IR percutaneous drainage, complicated by disconnected pancreatic duct syndrome who presents emergency department with complaints of acute onset epigastric pain x1 day with nausea and diarrhea. Patient currently is on morphine 45 mg by mouth daily for chronic abdominal pain. She states that the pain was unmanageable however did not take any morphine today. Her next appointment with outpatient GI is not until August. She is still able to eat. She does report some nausea and diarrhea. No bloody or black stool. No fevers, chills, chest pain, shortness of breath, or urinary symptoms. She was previously seen on July 05, 2024 where she had a CT scan revealing mass and pancreatic body, and recommended MRI, air-fluid levels in nondistended small bowel, which could be attributed to enteritis or dysmotility. Given this finding, she was admitted. During this admission, a GI consult was obtained, MRI showed no definitive pancreatic mass. GI specialist also notes that CT scan abnormality was likely due to prior resection, or atrophy due to chronic pancreatitis. 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 Presentation at that time likely acute on chronic pancreatitis and a urinary tract infection. She was then seen on July 11, 2024, and was discharged from the emergency room after normal labs. Related Data Home Medications ?Medication ?Instructions ?Recorded ?Confirmed bismuth subsalicylate 262 mg 2 tab PO QID 07/05/24 07/05/24 chewable tablet hydroxyzine pamoate 50 mg capsule 50 mg PO Q6H PRN anxiety 07/05/24 07/05/24 ibuprofen 800 mg tablet 800 mg PO Q8H PRN Pain 07/05/24 07/05/24 metronidazole 500 mg tablet 500 mg PO Q8H 07/05/24 07/05/24 mirtazapine 15 mg tablet 15 mg PO BEDTIME 07/05/24 07/05/24 morphine 15 mg immediate release 22.5 mg PO Q12H 07/05/24 07/05/24 tablet olanzapine 20 mg disintegrating 20 mg PO BEDTIME 07/05/24 07/05/24 tablet pantoprazole 40 mg tablet,delayed 40 mg PO BID PRN Heartburn 07/05/24 07/05/24 release pregabalin 100 mg capsule 100 mg PO BID 07/05/24 07/05/24 tetracycline 500 mg capsule 500 mg PO Q6H 07/05/24 07/05/24 tramadol 50 mg tablet 50 mg PO Q6H PRN pain 07/05/24 07/05/24 Previous Rx's ?Medication ?Instructions ?Recorded ondansetron 4 mg disintegrating 4 mg PO Q8H PRN nausea and 06/06/24 tablet vomiting #7 tabs cefuroxime axetil 250 mg tablet 250 mg PO BID 3 days #6 tabs 07/06/24 Allergies Allergy/AdvReac Type Severity Reaction Status Date / Time No Known Allergies Allergy Verified 07/16/24 06:40 Review of Systems Review of Systems Yes all other systems are reviewed and are negative Constitutional: Reports as per [facility] Past Medical History Medical History Alcohol abuse Necrotizing pancreatitis Benign tumor of breast Alcohol abuse Asthma Anxiety Surgical History No history of previous surgery Social History Social History Household Members: Family Housing: House Do you presently have visiting nurse or other home services: No Alcohol intake: former Patient Tobacco Use Status: Never used Tobacco Substance Use Type: Marijuana Advance Directives: No Advance Directives Information Provided: Yes Do you have a plan to hurt others: No Plan service: No Physical Exam ED Vital Signs: Vital Signs - 24 hr 07/16/24 06:38 07/16/24 14:29 Temperature 97.7 F 97.9 F Pulse Rate 90 82 Respiratory Rate 17 16 Blood Pressure 114/75 100/68 Pulse Oximetry 97 97 Oxygen Delivery Method Room Air Room Air BMI result Body Mass Index 21.2 Const General: cooperative, comfortable and no acute distress Orientation/consciousness: patient oriented x3 Limitations: no limitations HENMT Head: Yes normal to inspection, Yes normocephalic and Yes atraumatic Ears: hearing grossly normal bilaterally General nose exam: Normal external nose present Face and sinus: Yes normal facial exam Mouth: Normal oral and palatal mucosa present, oropharynx normal and moist mucous membranes Throat: Yes posterior oropharynx normal Eyes General: appearance normal, both eyes and all related structures Eyelids: Yes eyelids normal Conjunctivae: conjunctivae normal Sclerae: sclerae normal Pupils: Equal, round and reactive pupils present EOM: EOMs intact bilaterally Neck Neck: Yes normal visual inspection, Yes full ROM and Yes no lymphadenopathy Lymphatic: no lymphadenopathy noted Chest Chest palpation & inspection: normal inspection of the chest Resp Effort & Inspection: normal respiratory effort and able to speak in complete sentences Auscultation: clear to auscultation bilaterally, no crackles, no rales, no rhonchi and no wheezes Cardio Rate: regular rate Rhythm: regular rhythm Heart sounds: S1 normal heart sound present and S2 normal heart sound present GI Other: Tenderness palpation along the epigastrium and left upper quadrant, guarding noted, no rebound. Normoactive bowel sounds present in all 4 quadrants. Inspection: Yes normal to inspection Skin General skin exam: no rashes or lesions noted Trauma: no lacerations or abrasions Wounds: no wounds Neuro General: patient oriented x3 and moves all extremities Cranial nerves: Yes Equal, round and reactive pupils present Extrem General: Yes normal to inspection Right upper extremity: normal to inspection Left upper extremity: normal to inspection Right lower extremity: normal to inspection Left lower extremity: normal to inspection Course Reevaluation(s) Reevaluation #1: Ultrasound returns, status post cholecystectomy, no hydronephrosis in either kidney, no ascites, up to normal limits spleen size, normal liver, inadequate evaluation of pancreas however no peripancreatic fluid collections noted. Time: 15:36 Reevaluation #2: Patient was given 2 doses of morphine as well as Dilaudid. Patient appears to be much more comfortable however patient states that her pain is not well controlled. She would like to be admitted to the hospital for intractable abdominal pain. I discussed with patient that she should follow-up with her GI specialist outpatient, and see if they are able to move her appointment up sooner to be seen. She states that she is not comfortable with being discharged home given her pain. Will discussed with hospitalist for possible admission due to intractable abdominal pain. Time: 18:09 Reevaluation #3: Patient admitted for observation through the hospital service for intractable abdominal pain secondary to chronic pancreatitis. Time: 18:27 Medical Decision Making Medical Decision Making [facility] Narrative: This is a 28-year-old female, with a past medical history of prior alcohol abuse, chronic alcoholic pancreatitis, splenic/portal vein thrombosis, history of necrotizing pancreatitis requiring IR percutaneous drainage, complicated by disconnected pancreatic duct syndrome who presents emergency department with complaints of acute onset epigastric pain x1 day with nausea and diarrhea. On arrival, vital signs within normal limits. Patient's abdomen is soft, with tenderness palpation in the left upper quadrant, with guarding. She was not taking any pain medication today. Labs were obtained prior to my assessment, she has no leukocytosis, stable H&H, chemistry revealing no significant electrolyte derangement. Slight elevation in alk phos at 159, this is chronic for her. Normal lipase. Patient chronically has abdominal pain, and has been seen here many times for similar symptoms, she had a negative MRI performed at her last hospital admission. I inquired on what brought her today as she states that this is chronic pain she states that she could not tolerate the pain anymore but did not take any pain medication today. Will treat symptomatically with IV morphine, will also obtain ultrasound of the abdomen. Deferring CT scan at this time as she has had many CT scans in the past and an MRI recently, and patient reports that this is similar to her acute exacerbation of her abdominal pain she was had with pancreatitis in the past. Differential Diagnosis Differential Diagnoses: The differential diagnosis associated with the presentation includes Viral gastroenteritis, acute on chronic abdominal pain, necrotizing pancreatitis, cholecystitis-unlikely as patient had a cholecystectomy, gastritis. Admission/Observation Consideration of admission/observation: Escalation of care including admission/observation considered Lab Data [facility] Lab Attestation statement: I reviewed the patient's lab results. See [facility] 07/16/24 07:07 07/16/24 07:07 Labs: Lab Results 07/16/24 Range/Units 07:07 WBC 6.7 (4.8-10.8) X10*3/uL RBC 5.05 (4.20-5.50) X10*6/uL Hgb 12.5 (12.0-16.0) g/dl Hct 38.9 (37.0-47.0) % MCV 77.0 L (80.0-98.0) fL MCH 24.8 L (27.0-33.0) pg MCHC 32.1 (31.0-35.0) g/dl RDW 14.8 (11.0-16.0) % Plt Count 309 (160-400) X10*3/uL MPV 10.2 (9.4-12.3) fL Immature Gran % (Auto) 0.1 (0.0-0.4) % Neut % (Auto) 64.9 (45-73) % Lymph % (Auto) 28.2 (20-40) % [place] % (Auto) 5.5 (2-11) % Eos % (Auto) 0.7 (0-4) % Baso % (Auto) 0.6 (0-2) % Lymph # (Auto) 1.9 (1.2-4.9) X10*3/uL [place] # (Auto) 0.4 (0.1-1.2) X10*3/uL Eos # (Auto) 0.1 (0.0-0.4) X10*3/uL Baso # (Auto) 0.0 (0.0-0.2) X10*3/uL Abs Immat Gran (auto) 0.01 (0.00-0.03) X10*3/uL Absolute Neuts (auto) 4.3 (2.0-8.3) x10*3/uL Absolute Nucleated RBC 0.000 (0.0-0.012) X10*3/uL Nucleated RBC % (auto) 0.0 (0.0-0.2) /100WBC Sodium 140 (135-145) mmol/L Potassium 3.8 (3.3-5.1) mmol/L Chloride 112 H (96-108) mmol/L Carbon Dioxide 20 L (22-29) mmol/L Anion Gap 12 (12-20) BUN 9 (9-16) mg/dL Creatinine 0.68 (0.5-1.4) mg/dL Estim Creat Clear Calc 106.3 Estimated GFR > 60 Random Glucose 135 H (60-115) mg/dL Calcium 8.8 (8.4-10.2) mg/dL Total Bilirubin 0.2 (0.0-1.0) mg/dL AST 21 (5-31) U/L ALT 26 (0-31) U/L Alkaline Phosphatase 159 H (39-117) U/L Total Protein 7.6 (6.5-8.0) g/dL Albumin 4.4 (3.5-5.0) g/dL Lipase 6 L (8-78) U/L Beta HCG, Quant < 2 mIU/mL Radiology Impression Discussion of test interpretation with radiology: I have reviewed the radiologist's reading. External Record Review External record reviewed: Inpatient record, Office record, Outpatient record, Prior outpatient labs, Prior outpatient radiology, Primary care record and Outside ED record Medications Administered Discontinued Medications Generic Name Dose Route Start Last Admin Trade Name Freq PRN Reason Stop Dose Admin Hydromorphone HCl 1 mg 07/16/24 16:47 07/16/24 17:39 Hydromorphone Hcl 1 Mg/Ml Syringe IVPUSH 07/16/24 16:48 1 mg ONCE ONE Administration Protocol Sodium Chloride 1,000 mls @ 999 mls/hr 07/16/24 15:40 07/16/24 17:16 Ns IV 07/16/24 16:40 Infused .Q1H1M ONE Infusion Morphine Sulfate 4 mg 07/16/24 13:57 07/16/24 14:33 Morphine Sulfate 4 Mg/Ml Cartridge IVPUSH 07/16/24 13:58 4 mg ONCE ONE Administration Protocol Morphine Sulfate 4 mg 07/16/24 15:38 07/16/24 16:15 Morphine Sulfate 4 Mg/Ml Cartridge IVPUSH 07/16/24 15:39 4 mg ONCE ONE Administration Protocol Discharge Plan Discharge Clinical Impression: Intractable abdominal pain, Chronic pancreatitis Patient Disposition: Admitted As Inpatient Print Language: Yoruba
--- OUTSIDE RECORDS SUMMARY | 2024-07-16 13:55 | XMS_ITS | Encounter Summary ---
Author Organization [employer] Address [address] [facility] [address] [place] [address] Care Team Providers Care Field Cane Scale Clerk Name Role Phone Ibeth Lassiter MD Primary Care Provider [phone] Reason for Visit * Reason Onset Date Comments Medication Question 05/16/2024 Encounter Details Date Type Department Care Team ([facility] st Contact Info) Description 05/16/2024 Telephone [facility] [address] [place] [address] Ibeth Lassiter MD [address] [place] [address] Medication Question Social History Tobacco Use Types Packs/Day Years Used Date Smoking Tobacco: Never Passive Smoke Exposure: Never Smokeless Tobacco: Never Alcohol Use Standard Drinks/Week Comments Never 0 (1 standard drink = 0.6 oz pur e alcohol) Depression Answer Date Recorded Patient Health Questionnaire-9 Score 24 11/08/2023 Patient Health Questionnaire-9 Score 24 11/08/2023 Last PHQ-9: Questionnaire Data Not on file 0 11/08/2023 Housing Stability Answer Date Recorded What is your housing situation today? I have sobeida montes 11/01/[address] you li ve. Do you have problems with any of the following? None of the above 11/01/2023 Food Insecurity Answer Date Recorded Within the past 12 months, y ou worried that your food would run out before you got money to buy more: Never True 11/01/2023 Within the past 12 months,th e food you bought just didn't last and you didn't have enough money to get more: Never True Transportation Answer Date Recorded In the past 12 months, has l ack of transportation kept you from medical appts, meetings, work or from getting things needed for daily living? No 11/01/2023 Utilities Answer Date Recorded In the past 12 months, has t he electric, gas, oil or water company threatened to shut off services in your home? No 11/01/2023 Depression Answer Date Recorded Patient Health Questionnaire-2 Score 6 11/08/2023 Internet Access Answer Date Recorded Internet Access Q1 Yes 04/07/2024 Internet Access Q2 Not on file 04/07/2024 Comments No Sex and Gender Information Value Date Recorded Sex Assigned at Female 04/03/2022 10:40 AM EDT Legal Sex Female 10:40 AM EDT Gender Identity Female 04/03/2022 10:40 AM EDT Sexual Orientation Bisexual 06/30/2022 4: 50 PM EST Sexual Orientation Straight 06/30/2022 4: 50 PM EST documented as of this encounter Miscellaneous Notes * Telephone Encounter - Ghazala Hussein RN - 05/23/2024 11:00 AM EST TC AM left message to return call to [facility] * Telephone Encounter - Ibeth Lassiter MD - 05/22/2024 1:45 PM EST Just tablet, she was suppose to be on liquid but the pharmacy said they didn't have it available. * Telephone Encounter - Ghazala Hussein RN - 05/22/2024 11:49 AM EST Patient has been taking 15mg tab morphine, there is also an order for liquid morphine. Would you like patient to take both? * Telephone Encounter - Damon Hoover - 05/16/2024 12:21 PM EST Tc from pt requesting a call back regarding medication morphine 10 MG/5ML solution. Pt states that the Pharmacy told them They didn't have the Solution and that it would be difficult to find it because a lot of Pharmacy around don't have it. Contact pt at [phone] documented in this encounter Plan of Treatment Upcoming Encounters Date Type Department Care Team (Late st Contact Info) Description 07/24/2024 2:30 PM EST Clinical Support [facility] [address] [place] [address] Anastasiia Ocampo, EL [address] [place] [address] 09/10/2024 11:30 AM EDT Office Visit [facility] [address] [place] [address] Rosalina Mathews MD [address] [place] [address] documented as of this encounter Visit Diagnoses Not on filedocumented in this encounter Additional Health Concerns Assessment Noted Time PHQ-9 Depression Total Score: 24 024 3:55 PM EDT documented as of this encounter Care Teams Field Cane Scale Clerk Relationship Specialty Start Date End Date Ibeth Lassiter MD [address] [place] [address] PCP - General Family Medicine 12/16/21 documented as of this encounter
--- OUTSIDE RECORDS SUMMARY | 2024-07-16 13:55 | XMS_ITS | Encounter Summary ---
Author Organization [employer] Address [address] [place] [address] Care Team Providers Care Machine Scallop Cutter Name Role Phone Ibeth Lassiter MD Primary Care Provider [phone] Encounter Details Date Type Department Care Team (Latest Contact Info) Description 07/11/2024 Travel Social History Tobacco Use Types Packs/Day Years Used Date Smoking Tobacco: Never Passive Smoke Exposure: Never Smokeless Tobacco: Never Alcohol Use Standard Drinks/Week Comments Never 0 (1 standard drink = 0.6 oz pur e alcohol) Depression Answer Date Recorded Patient Health Questionnaire-9 Score 22 06/06/2024 Patient Health Questionnaire-9 Score 22 06/06/2024 Last PHQ-9: Questionnaire Data Not on file 0 06/06/2024 Housing Stability Answer Date Recorded What is [...] Date Recorded Patient Health Questionnaire-2 Score 6 06/06/2024 Internet Access Answer Date Recorded Internet Access [...] PM EST documented as of this encounter Plan of Treatment Upcoming Encounters Date Type Department Care Team (Late st Contact Info) Description 07/24/2024 2:30 PM EST Clinical Support [facility] [address] [place] [address] Anastasiia Ocampo RN 505 [place] [address] 09/10/2024 11:30 AM EDT Office Visit [facility] [address] [place] [address] Rosalina Mathews MD [address] [place] [address] documented as of this encounter Visit Diagnoses Not on filedocumented in this encounter Additional Health Concerns Assessment Noted Time PHQ-9 Depression Total Score: 22 025 10:04 AM EST documented as of this encounter Care Teams Machine Scallop Cutter Relationship Specialty Start Date End Date Ibeth Lassiter MD [address] [place] [address] PCP - General Family Medicine 12/16/21 documented as of this encounter
--- OUTSIDE RECORDS SUMMARY | 2024-07-16 13:55 | XMS_ITS | Encounter Summary ---
Author Organization [employer] Address [address] [facility] 7t [place] [address] Care Team Providers Care Commercial Lending Relationship Manager Name Role Phone Ibeth Lassiter MD Primary Care Provider [phone] Reason for Visit * Reason Comments Care Coordination Outreach Encounter Details Date Type Department Care Team (Latest Contact Info) Description 06/17/2024 Patient Outreach [facility] [address] [place] [address] Ibeth Lassiter MD [address] [place] [address] Care Coordination (Outreach) Social History Tobacco Use Types Packs/Day Years [...] PM EST documented as of this encounter Progress Notes * Gloria Sandoval - 06/17/2024 2:14 PM EST CHW Gloria Sandoval placed outbound call to patient for follow up call on SDOH needs. No answer at this time. LVM introducing herself from [facility] CM Department. Requested call back. CHW reinforced direct contact information or CM for any additional questions or concerns and extended clinic hours on Mondays and Wednesdays, and Walk-In Urgent Care Located in [facility] of [facility]. Patient provided with after-hours line for [facility], , which offer night timetriage service and option to transfer to continuity coordinator provider if needed. CHW will attempt another follow up call within 10 days. documented in this encounter Plan of Treatment Upcoming Encounters Date Type Department Care Team ([facility] st Contact Info) Description 07/24/2024 2:30 PM EST Clinical Support [facility]ED[facility] [address] [place] [address] Anastasiia Ocampo, RN [address] [place] [address] 09/10/2024 11:30 AM EDT Office Visit [facility] [address] [place] [address] Rosalina Mathews MD [address] [place] [address] documented as of this encounter Visit Diagnoses Not on filedocumented in this encounter Additional Health Concerns Assessment Noted Time PHQ-9 Depression Total Score: 025 10:04 AM EST documented as of this encounter Care Teams Commercial Lending Relationship Manager Relationship Specialty Start Date End Date Ibeth Lassiter MD [address] [place] [address] PCP - General Family Medicine 12/16/21 documented as of this encounter
--- OUTSIDE RECORDS SUMMARY | 2024-07-16 13:55 | XMS_ITS | Encounter Summary ---
Author Organization [employer] Address [address] [facility] 7t [place] [address] Care Team Providers Care Tours Captain Name Role Phone Ibeth Lassiter MD Primary Care Provider [phone] Reason for Visit * Reason Comments Care Coordination Outreach Encounter Details Date Type Department Care Team (Latest Contact Info) Description 07/02/2024 Patient Outreach [facility] & PEDS [address] [place] [address] Ibeth Lasstier MD [address] [place] [address] Care Coordination (Outreach) Social History Tobacco Use [...] encounter Progress Notes * Gloria Sandoval - 07/02/2024 9:46 AM EST CHW Gloria Sandoval placed outbound call to patient to follow up on SDOH needs. Patient's name, and address confirmed. Patient states is doing well. No further questions or concerns. CHW reinforced direct contact information or CM for any additional questions or concerns and extended clinic hours on Mondays and Wednesdays, and Walk-In Urgent Care Located in [facility] of [facility]. Patient provided with after-hours line for [facility], , which offer night time triage service and option to transfer to steam conditioner filling provider if needed. Patient verbalizes understanding, and able to repeat back to medical technical writer. A follow up call willbe placed within 10 days, patient agrees with plan. documented in this encounter Plan of Treatment Upcoming Encounters Date Type Department Care Team (Late st Contact Info) Description 07/24/2024 2:30 PM EST Clinical Support [facility] MED & PED[facility] [address] [place] [address] Anastasiia Ocampo, RN [address] [place] [address] 09/10/2024 11:30 AM EDT Office Visit [facility] MED & PEDS [address] [place] [address] Rosalina Mathews MD [address] [place] [address] documented as of this encounter Visit Diagnoses Not on filedocumented in this encounter Additional Health Concerns Assessment Noted Time PHQ-9 Depression Total Score: 22 025 10:04 AM EST documented as of this encounter Care Teams Tours Captain Relationship Specialty Start Date End Date Ibeth Lassiter MD [address] [place] [address] PCP - General Family Medicine 12/16/21 documented as of this encounter
--- OUTSIDE RECORDS SUMMARY | 2024-07-16 13:55 | XMS_ITS | Encounter Summary ---
Author Organization [employer] Address [address] [facility] 7t [place] [address] Care Team Providers Care Ibm Mainframe Developer Name Role Phone Ibeth Lassiter MD Primary Care Provider [phone] Encounter Details Date Type Department Care Team (Late st Contact Info) Description 07/16/2024 Orders Only GENERIC EXTERNAL DATA DEPARTMENT Provider, Generic External Data Social History Tobacco Use Types Packs/Day Years [...] is your housing situation today? I have sobeidaminoo montes 11/01/[address] you [...] Upcoming Encounters Date Type Department Care Team ([facility] st Contact Info) Description 07/24/2024 2:30 PM EST Clinical Support [facility] [address] [place] [address] Anastasiia Ocampo RN [address] [place] [address] 09/10/2024 11:30 AM EDT Office Visit [facility] [address] [place] [address] Rosalina Mathews MD [address] [place] [address] documented as of this encounter Procedures Procedure Name Priority Date/Time Associated Diagnosis Comments CBC WITH AUTO DIFFERENTIAL Routine 07/16/2024 7:07 AM EST LIPASE Routine 07/16/2024 7:07 AM EST COMPREHENSIVE METABOLIC PANEL Routine 07/16/2024 7:07 AM EST documented in this encounter Results * (ABNORMAL) Lipase (07/16/2024 7:07 AM EST) Lipase 6(L) 8 - 78 U/L [facility] 07/16/2024 7:07 AM EST 07/16/2024 7:12 AM EST us Generic External Data Provider LAB BLOOD ORDERAB LES Final Result [facility] [address] [place] [address] [phone] * (ABNORMAL) Comprehensive Metabolic Panel (07/16/2024 7:07 AM EST) Sodium 140 135 - 145 mmol/L [facility] Potassium 3.8 3.3 - 5.1 mmol/L [facility] Chloride 112(H) 96 - 108 mmol/L [facility] Carbon Dioxide 20(L) 22 - 29 mmol/L [facility] Anion Gap 12 12 - 20 [facility] Urea Nitrogen (BUN) 9 9 - 16 mg/dL [facility] Creatinine, Serum 0.68 0.5 - 1.4 mg/dL [facility] Creatinine Clr Calc Pharmacy 106.3 [facility] Comment:Provided height and weight: 162.56 cm,56.1 kg.eGFR (calculated from the MDRD study equation) and eCrCl(calculated from the Cockcroft-Gault equation) are based ondifferent parameters and may not yield comparable results.If eCrCl result is absurd, please check patient'sheight/weight. Estimated Glomerular Filt Rate >60 [facility] Comment:Chronic Kidney Disea se: Estimated GFR < 60 mL/min/1.08t8Sieqht Kidney Disease: Estimated GFR < 15 mL/min/1.73m2 Glucose 135(H) 60 - 115 mg/dL [facility] Calcium 8.8 8.4 - 10.2 mg/dL [facility] Bilirubin, Total 0.2 0.0 - 1.0 mg/dL [facility] Aspartate Amino Transferase 21 5 - 31 U/L [facility] Alanine Aminotransferase 26 0 - 31 U/L [facility] Total Protein 7.6 6.5 - 8.0 g/dL [facility] Albumin Level 4.4 3.5 - 5.0 g/dL [facility] Alkaline Phosphatase 159(H) 39 - 117 U/L [facility] 07/16/2024 7:07 AM EST 07/16/2024 7:12 AM EST us Generic External Data Provider LAB BLOOD ORDERAB LES Final Result [facility] [address] [place] [address] [phone] * (ABNORMAL) CBC auto differential (07/16/2024 7:07 AM EST) White Blood Count 6.7 4.8 - 10.8 X10*3/uL [facility] Red Blood Count 5.05 4.20 - 5.50 X10*6/uL [facility] Hemoglobin 12.5 12.0 - 16.0 g/dl [facility] Hematocrit 38.9 37.0 - 47.0 % [facility] Mean Corpuscular Volume 77.0(L) 80.0 - 98.0 fL [facility] Mean Corpuscular Hemoglobin 24.8(L) 27.0 - 33.0 pg [facility] Mean Corpuscular HGB Conc 32.1 31.0 - 35.0 g/dl [facility] Red Cell Distribution Width 14.8 11.0 - 16.0 % [facility] Platelet Count 309 160 - 400 X10*3/uL [facility] Mean Platelet Volume 10.2 9.4 - 12.3 fL [facility] Neutrophils Percent Auto 64.9 45 - 73 % [facility] Imm Gran Pct Auto 0.1 0.0 - 0.4 % [facility] Lymphocytes Percent Auto 28.2 20 - 40 % [facility] Monocytes Percent Auto 5.5 2 - 11 % [facility] Eosinophils Percent Auto 0.7 0 - 4 % [facility] Basophils Percent Auto 0.6 0 - 2 % [facility] NRBC Pct Auto 0.0 0.0 - 0.2 /100WBC [facility] Neutrophils Absolute Auto 4.3 2.0 - 8.3 x10*3/uL [facility] Imm Gran Abs Auto 0.01 0.00 - 0.03 X10*3/uL [facility] Lymphocytes Absolute Auto 1.9 1.2 - 4.9 X10*3/uL [facility] Monocytes Absolute Auto 0.4 0.1 - 1.2 X10*3/uL [facility] Eosinophils Absolute Auto 0.1 0.0 - 0.4 X10*3/uL [facility] Basophils Absolute Auto 0.0 0.0 - 0.2 X10*3/uL [facility] NRBC Abs Auto 0.000 0.0 - 0.012 X10*3/uL [facility] 07/16/2024 7:07 AM EST 07/16/2024 7:12 AM EST us Generic External Data Provider LAB BLOOD ORDERAB LES Final Result Performing Organization Address City/State/[facility] Co de Phone Number [facility] [address] [place] [address] [phone] documented in this encounter Visit Diagnoses Not on filedocumented in this encounter Additional Health Concerns Assessment Noted Time PHQ-9 Depression Total Score: 22 025 10:04 AM EST documented as of this encounter Care Teams Ibm Mainframe Developer Relationship Specialty Start Date End Date Ibeth Lassiter MD [address] [place] [address] PCP - General Family Medicine 12/16/21 documented as of this encounter
--- OUTSIDE RECORDS SUMMARY | 2024-07-16 13:55 | XMS_ITS | Encounter Summary ---
Author Organization [employer] Address [address] [place] [address] Care Team Providers Care Optical Lathe Operator Name Role Phone Ibeth Lassiter MD Primary Care Provider [phone] Reason for Visit * Reason Comments Med Refill Encounter Details Date Type Department Care Team ([facility] st Contact Info) Description 06/19/2024 Refill [facility] [address] [place] [address] Ibeth Lassiter MD [address] [place], [place] [phone] Alcohol-induced chronic pancreatitis (CMS/HCC) Social History Tobacco Use Types Packs/Day Years [...] your housing situation today? I have sobeida sing 11/01/[address] you li [...] Description 07/24/2024 2:30 PM EST Clinical Support [facility] [address] [place] [address] Anastasiia Ocampo, EL [address] [place] [address] 09/10/2024 11:30 AM EDT Office Visit [facility] [address] [place] [address] Rosalina Mathews MD [address] [place] [address] documented as of this encounter Visit Diagnoses Diagnosis Alcohol-induced chronic pancreatitis (CMS/HCC) Chronic pancreatitis documented in this encounter Additional Health Concerns Assessment Noted Time PHQ-9 Depression Total Score: 22 025 10:04 AM EST documented as of this encounter Care Teams Optical Lathe Operator Relationship Specialty Start Date End Date Ibeth Lassiter MD [address] [place] [address] PCP - General Family Medicine 12/16/21 documented as of this encounter
--- OUTSIDE RECORDS SUMMARY | 2024-07-16 13:55 | XMS_ITS | Encounter Summary ---
Author Organization [employer] Address [address] [facility] 7t [place] [address] Care Team Providers Care Finance Specialist Name Role Phone Ibeth Lassiter MD Primary Care Provider [phone] Reason for Visit * Reason Comments Care Coordination Outreach Encounter Details Date Type Department Care Team (Latest Contact Info) Description 07/11/2024 Patient Outreach [facility] [address] [place] [address] Ibeth Lassiter MD [address] [place] [address] Care Coordination (Outreach) Social History Tobacco Use [...] encounter Progress Notes * Gloria Sandoval - 07/11/2024 12:20 PM EST CHW Gloria Sandoval placed outbound call to patient for follow up on SDOH needs. Patient's name, and address confirmed. Patient states is doing well. No further questions or concerns. CHW reinforced direct contact information for any additional questions or concerns and extended clinic hours on Mondays and Wednesdays, and Walk-In Urgent Care Located in [facility] of [facility]. Patient provided with after-hours line for [facility], , which offer night time triage service and option to transfer to optoelectronic technician provider if needed. CHW discussed with the patient progress made in the CHW Program. Patient notified is being graduated from the Care Management-CHW Program. Patient was educated on how to receive SDOH services in the future. Patient agrees with the plan and will contact us if any future needs arise. documented in this encounter Plan of Treatment Upcoming Encounters Date Type Department Care Team ([facility] st Contact Info) Description 07/24/2024 2:30 PM EST Clinical Support [facility] MED & PEDS [address] [place] [address] Anastasiia Ocampo, EL [address] [place] [address] 09/10/2024 11:30 AM EDT Office Visit [facility] [address] [place] [address] Rosalina Mathews MD [address] [place] [address] documented as of this encounter Visit Diagnoses Not on filedocumented in this encounter Additional Health Concerns Assessment Noted Time PHQ-9 Depression Total Score: 22 025 10:04 AM EST documented as of this encounter Care Teams Finance Specialist Relationship Specialty Start Date End Date Ibeth Lassiter MD [address] [place] [address] PCP - General Family Medicine 12/16/21 documented as of this encounter
--- OUTSIDE RECORDS SUMMARY | 2024-07-16 13:55 | XMS_ITS | Encounter Summary ---
Author Organization [employer] Address [address] [facility] 7t [place] [address] Care Team Providers Care Surface Miner Name Role Phone Ibeth Lassiter MD Primary Care Provider [phone] Reason for Visit * Reason Onset Date Comments Chart Prep 06/18/2024 Encounter Details Date Type Department Care Team ([facility] st Contact Info) Description 06/18/2024 Telephone [facility] & PEDS [address] [place], [place] [phone] Ibeth Lassiter MD [address] [place] [address] Chart Prep Social History Tobacco Use Types Packs/Day Years [...] encounter Miscellaneous Notes * Telephone Encounter - Pooja Brand [place] - 06/18/2024 4:35 PM EST Chart Prep Labs: done Images: done Vaccines due: yes Referrals: n/a Screenings: n/a Overdue care gaps: Glucose, disability screening documented in this encounter Plan of Treatment Upcoming Encounters Date Type Department Care Team (Late st Contact Info) Description 07/24/2024 2:30 PM EST Clinical Support [facility] & P[facility]S [address] [place] [address] Anastasiia Ocampo RN [address] [place] [address] 09/10/2024 11:30 AM EDT Office Visit [facility] PED[facility] [address] [place] [address] Rosalina Mathews MD [address] [place] [address] documented as of this encounter Visit Diagnoses Not on filedocumented in this encounter Additional Health Concerns Assessment Noted Time PHQ-9 Depression Total Score: 22 025 10:04 AM EST documented as of this encounter Care Teams Surface Miner Relationship Specialty Start Date End Date Ibeth Lassiter MD [address] [place] [address] PCP - General Family Medicine 12/16/21 documented as of this encounter
--- OUTSIDE RECORDS SUMMARY | 2024-07-16 13:55 | XMS_ITS | Encounter Summary ---
Author Organization [employer] Address [address] 7t [place] [address] Care Team Providers Care Buckle And Button Maker Name Role Phone Ibeth Lassiter MD Primary Care Provider [phone] Encounter Details Date Type Department Care Team (Late st Contact Info) Description 06/16/2024 Orders Only [facility] External Provider, [facility] Social History Tobacco Use Types Packs/Day Years [...] Upcoming Encounters Date Type Department Care Team ([facility] st Contact Info) Description 07/24/2024 2:30 PM EST Clinical Support [facility] MED & PEDS [address] [place] [address] Anastasiia Ocampo RN 505 [place] [address] 09/10/2024 11:30 AM EDT Office Visit [facility] MED & PEDS [address] [place] [address] Rosalina Mathews MD 505 [place] [address] documented as of this encounter Procedures Procedure Name Priority Date/Time Associated Diagnosis Comments CT ABDOMEN PELVIS W CONTRAST Routine 06/16/2024 4:18 AM EST documented in this encounter Results * CT Abdomen Pelvis w/ Contrast (06/16/2024 4:18 AM EST) Anatomical Region Laterality Modality Body, Pelvis, Abdomen Computed T omography 06/16/2024 4:18 AM EST Narrative 06/16/2024 4:19 AM EST ? [facility] ?[address] ?[place] [address] ? CT Scan Report ? Signed ? Patient: Aguilar,Deepti ?MR#: [id number] ?? 5 ? : 1995 ?Acct:[id number] ? Age/Sex: 28 / F ?ADM Date: /13/25 ? Loc: HO.ED ? Attending Dr: ? Ordering Physician: Nadia Abad MD ?? Date of Service: 06/16/24 ?? Procedure(s): CT abdomen pelvis w IV con ?? Accession Number(s): [id number] ? cc: Nadia Abad MD; Ibeth Lassiter MD ? Report Number: ?? [id number]: Total DLP = ??405.00 mGy-cm ? CLINICAL HISTORY: worsening epigastric pain, hx chronic pancreatitis ? CT abdomen and pelvis with contrast ? Comparison: 05/09/2024 ? Findings: ?? No consolidation or effusion. ? The gallbladder is absent. No intrahepatic biliary ductal dilatation. ?? Common bile duct is within normal limits. ?? Interval removal of biliary stent and resolution of intrahepatic ?? pneumobilia. ?? The spleen is unremarkable. Pancreas appears similar to previous ?? examination pancreatic tail not visualized slight prominence of pancreatic ?? duct but otherwise the pancreas within normal limits with no ?? peripancreatic inflammatory stranding or pancreatic calcifications. ?? Adrenal glands and kidneys are unremarkable. No ureteral stones and no ?? hydronephrosis or hydroureter. ? No bowel obstruction, pneumoperitoneum, or pneumatosis. ?? Circumferential rectal wall thickening with no perirectal stranding of ?? uncertain significance. ?? Appendix not visualized. Uterus within normal limits. 1 cm left ovarian ?? cyst likely physiologic right ovarian follicles. ?? Abdominal aorta is normal in size ?? No acute fracture. ? IMPRESSION: ?? 1. No acute findings. ? 2. Interval removal of biliary stent and resolution of intrahepatic ?? pneumobilia. ? This document has been electronically signed by: Nancy Ramirez MD on ?? 06/16/2024 04:18:32 ? Dictated By: ?Nancy Ramirez MD ? Signed By: ?<Electronically signed by Nancy Ramirez MD in OV> ? 06/16/24 0419 ? DD/ 0418 ? TD/TT: 06/16/24 0418 ? Recording Studio Setup Worker: ? Procedure Note Yumiko Shaffer - 06/16/[address] [address] [address] Scan Report Signed Patient: Deepti Aguilar#: [id number] 5 : 1995Acct:[id number] Age/Sex: 28 / FADM Date: 06/16/24 Loc: HO.ED Attending Dr: Ordering Physician: Nadia Abad MD Date of Service: 06/16/24 Procedure(s): CT abdomen pelvis w IV con Accession Number(s): [id number] cc: Nadia Abad MD; Ibeth Lassiter MD Report Number: [id number]: Total DLP = 405.00 mGy-cm CLINICAL HISTORY: worsening epigastric pain, hx chronic pancreatitis CT abdomen and pelvis with contrast Comparison: 05/09/2024 Findings: No consolidation or effusion. The gallbladder is absent. No intrahepatic biliary ductal dilatation. Common bile duct is within normal limits. Interval removal of biliary stent and resolution of intrahepatic pneumobilia. The spleen is unremarkable. Pancreas appears similar to previous examination pancreatic tail not visualized slight prominence of pancreatic duct but otherwise the pancreas within normal limits with no peripancreatic inflammatory stranding or pancreatic calcifications. Adrenal glands and kidneys are unremarkable. No ureteral stones and no hydronephrosis or hydroureter. No bowel obstruction, pneumoperitoneum, or pneumatosis. Circumferential rectal wall thickening with no perirectal stranding of uncertain significance. Appendix not visualized. Uterus within normal limits. 1 cm left ovarian cyst likely physiologic right ovarian follicles. Abdominal aorta is normal in size No acute fracture. IMPRESSION: 1. No acute findings. 2. Interval removal of biliary stent and resolution of intrahepatic pneumobilia. This document has been electronically signed by: Nnacy Ramirez MD on 06/16/2024 04:18:32 Dictated By: Nancy Ramirez MD Signed By: <Electronically signed by Nancy Ramirez MD in OV> 06/16/24 0419 DD/ TD/TT: 06/16/24417 Recording Studio Setup Worker: [facility] External Provider IMG CT PROCEDURES Final Result documented in this encounter Visit Diagnoses Not on filedocumented in this encounter Additional Health Concerns Assessment Noted Time PHQ-9 Depression Total Score: 22 025 10:04 AM EST documented as of this encounter Care Teams Buckle And Button Maker Relationship Specialty Start Date End Date Ibeth Lassiter MD [address] [place] [address] PCP - General Family Medicine 12/16/21 documented as of this encounter
--- OUTSIDE RECORDS SUMMARY | 2024-07-16 13:55 | XMS_ITS | Encounter Summary ---
Author Organization [employer] Address [address] [facility] 7t [place] [address] Care Team Providers Care Eye Clinic Manager Name Role Phone Ibeth Lassiter MD Primary Care Provider [phone] Reason for Visit * Reason Comments Transition Of Care (Tcm) Encounter Details Date Type Department Care Team ([facility] st Contact Info) Description 07/11/2024 Patient Outreach [facility] MEDICINE [address] [place] [address] Ibeth Lassiter MD [address] [place] [address] Transition Of Care (Tcm) Social History Tobacco Use Types Packs/Day Years [...] as of this encounter Progress Notes * Susan Mills RN - 07/11/2024 9:18 AM EST Transition of Care Note Deepti Aguilar is going through a recent transition of care. documented in this encounter Plan of Treatment Upcoming Encounters Date Type Department Care Team (Late st Contact Info) Description 07/24/2024 2:30 PM EST Clinical Support [facility] MED & PEDS [address] [place] [address] Anastasiia Ocampo RN 505 [place] [address] 09/10/2024 11:30 AM EDT Office Visit [facility] MED & PEDS [address] [place] [address] Rosalina Mathews MD 505 [place] [address] documented as of this encounter Visit Diagnoses Not on filedocumented in this encounter Additional Health Concerns Assessment Noted Time PHQ-9 Depression Total Score: 22 025 10:04 AM EST documented as of this encounter Care Teams Eye Clinic Manager Relationship Specialty Start Date End Date Ibeth Lassiter MD [address] [place] [address] PCP - General Family Medicine 12/16/21 documented as of this encounter
--- OUTSIDE RECORDS SUMMARY | 2024-07-16 13:55 | XMS_ITS | Encounter Summary ---
Author Organization [employer] Address [address] 7t [place] [address] Care Team Providers Care Collision Center Manager Name Role Phone Ibeth Lassiter MD Primary Care Provider Encounter Details Date Type Department Care Team ([facility] st Contact Info) Description 06/30/2024 Telephone [facility] MED & PEDS [address] [place] [address] Anastasiia Ocamop, EL [address] [place], [place] Social History Tobacco Use Types Packs/Day Years [...] encounter Miscellaneous Notes * Telephone Encounter - Rosa Wright - 06/30/2024 1:52 PM EST Tc from pt returning call. * Telephone Encounter - Anastasiia Ocampo RN - 06/30/2024 1:25 PM EST TC to pt to r/s CREDIT INTERVIEWER [place]. No answer. Lvm for pt to c/b and r/s appt. documented in this encounter Plan of Treatment Upcoming Encounters Date Type Department Care Team (Late st Contact Info) Description 07/24/2024 2:30 PM EST Clinical Support [facility] MED & PEDS [address] [place] [address] Anastasiia Ocampo, EL [address] [place] [address] 09/10/2024 11:30 AM EDT Office Visit [facility] MED & PEDS [address] [place] [address] Rosalina Mathews MD [address] [place] [address] documented as of this encounter Visit Diagnoses Not on filedocumented in this encounter Additional Health Concerns Assessment Noted Time PHQ-9 Depression Total Score: 22 025 10:04 AM EST documented as of this encounter Care Teams Collision Center Manager Relationship Specialty Start Date End Date Ibeth Lassiter MD [address] [place] [address] PCP - General Family Medicine 12/16/21 documented as of this encounter
--- OUTSIDE RECORDS SUMMARY | 2024-07-16 13:55 | XMS_ITS | Encounter Summary ---
Author Organization [employer] Address [address] [facility] 7t [place] [address] Care Team Providers Care Information Technology Teacher Name Role Phone Ibeth Lassiter MD Primary Care Provider [phone] Reason for Visit * Reason Onset Date Comments Hospital Follow-up 07/08/2024 Care Coordination 07/08/2024 C3 program g raduation. Encounter Details Date Type Department Care Team ([facility] Contact Info) Description 07/08/[address] [facility] MED & PEDS [address] [place] [address] Ibeth Lassiter MD [address] [place] [address] Hospital Follow-up; Care Coordination (C3 program graduation.) Social History Tobacco Use Types Packs/Day Years [...] encounter Miscellaneous Notes * Telephone Encounter - Doreen Johnston RN - 07/09/2024 11:37 AM EST CM Doreen Johnston RN and Gloria Sandoval placed outbound call to patient. Patient's name, and address confirmed. Patient states is doing well with no recent illnesses or emergency room visits. Pt denies worsening epigastric pain. Pt states she picked up morphine refilled by covering provider during last office visit. Pt states she has been taking medication as prescribed. Pt denies depression oranxiety at this time. CM reminded pt of all her upcoming appt and encouraged to follow up with PCP as needed. No further questions or concerns. CM reinforced direct contact information or CHW for any additional questions or concerns. Education provided on [facility]. Patient provided with after-hours line for [facility], , which offer night time triage service and option to transfer to electronic service technician provider if needed. CM discussed with the patient progress made towards established goals. Patient notified is being graduated from the Care Management Program. Patient was educated on how to receive care management services in the future. Patient agrees with the plan and will contact us if any future needs arise. JORDAN Johnston RN, sent notification to PCP Dr. Lassiter to inform that patient has completed C3 Adult Complex Care program with goals partially/fully met at this time. * Telephone Encounter - Catie Moreau - 07/08/2024 9:51 AM EST Tc from [facility] certified caregiver with [employer] requesting a HDF appt. Hospital: [facility] Date of admission: 07/04/24 Discharge date: 07/06/24 Diagnosed: Abdominal [ain Contact pt at [phone] documented in this encounter Plan of Treatment Upcoming Encounters Date Type Department Care Team (Late st Contact Info) Description 07/24/2024 2:30 PM EST Clinical Support [facility] MED & PEDS [address] [place] [address] Anastasiia Ocampo RN [address] [place] [address] 09/10/2024 11:30 AM EDT Office Visit [facility] MED & PEDS [address] [place] [address] Rosalina Mathews MD [address] [place] [address] documented as of this encounter Visit Diagnoses Not on filedocumented in this encounter Additional Health Concerns Assessment Noted Time PHQ-9 Depression Total Score: 22 025 10:04 AM EST documented as of this encounter Care Teams Information Technology Teacher Relationship Specialty Start Date End Date Ibeth Lassiter MD [address] [place] [address] PCP - General Family Medicine 12/16/21 documented as of this encounter
--- OUTSIDE RECORDS SUMMARY | 2024-07-16 13:55 | XMS_ITS | Encounter Summary ---
Author Organization [employer] Address [address] [facility] 7t [place] [address] Care Team Providers Care Varnish Filterer Name Role Phone Ibeth Lassiter MD Primary Care Provider [phone] Reason for Visit * Reason Comments Transition Of Care (Tcm) Encounter Details Date Type Department Care Team ([facility] st Contact Info) Description 06/16/2024 Patient Outreach [facility] MEDICINE [address] [place] [address] Ibeth Lassiter MD [address] [place] [address] Transition Of Care (Tcm) Social History Tobacco [...] as of this encounter Progress Notes * Danis Forte RN - 06/16/2024 10:08 AM EST 06/16/24 1009 Hospital Discharges and Admission for [facility] Type of Visit Emergency Department Date of Admission/Visit 06/16/24 (12:44 am) Date of Discharge 06/16/24 (4:32 am) Facility [facility] Diagnosis Pancreas pain Disposition Discharged Home * Kandis Martínez RN - 06/16/2024 10:08 AM EST Transition of Care Note Deepti is going through a recent transition of care. Hospital Discharges and Admission for [facility] Type of Visit: Emergency Department Date of Admission/Visit: 06/16/24 (12:44 am) Date of Discharge: 06/16/24 (4:32 am) Facility: [facility] Diagnosis: Pancreas pain Disposition: Discharged Home Follow-Up Actions Follow-Up Needed: Provider appointment Follow-Up Outcome: Spoke to Patient Initial Contact Date: 06/16/24 The full discharge summary is in progress via Medical Records request. Recent Visits Date Type Provider Dept 06/02/24 Office Visit Ibeth Lassiter MD [facility] Med & Peds 02/29/24 Office Visit Ibeth Lassiter MD [facility] Med & Peds 02/14/24 Office Visit Ibeth Lassiter MD [facility] Med & Peds 11/08/23 Office Visit Ibeth Lassiter MD [facility] Med & Peds 10/25/23 Office Visit Ibeth Lassiter MD [facility] Med & Peds 09/24/23 Office Visit Ibeth Lassiter MD [facility] Med & Peds 09/18/23 Office Visit Zara gN MD [facility] Med & Peds 03/30/23 Office Visit Ibeth Lassiter MD [facility] Med & Peds 02/28/23 Office Visit Ibeth Lassiter MD [facility] Med & Peds Showing recent visits within past 540 days with a meds authorizing provider and meeting all other requirements Future Appointments Date Type Provider Dept 06/19/24 Appointment Solis Lennon MD [facility] Med & Peds Showing future appointments within next 150 days with a meds authorizing provider and meeting all other requirements documented in this encounter Plan of Treatment Upcoming Encounters Date Type Department Care Team (Late st Contact Info) Description 07/24/2024 2:30 PM EST Clinical Support [facility] MED & PEDS [address] [place] [address] Anastasiia Ocampo, EL [address] [place] [address] 09/10/2024 11:30 AM EDT Office Visit [facility] MED & PEDS [address] [place] [address] Rosalina Mathews MD [address] [place] [address] documented as of this encounter Visit Diagnoses Not on filedocumented in this encounter Additional Health Concerns Assessment Noted Time PHQ-9 Depression Total Score: 22 025 10:04 AM EST documented as of this encounter Care Teams Varnish Filterer Relationship Specialty Start Date End Date Ibeth Lassiter MD [address] [place] [address] PCP - General Family Medicine 12/16/21 documented as of this encounter
--- OUTSIDE RECORDS SUMMARY | 2024-07-16 13:55 | XMS_ITS | Encounter Summary ---
Author Organization [employer] Address [address] [facility] 7t [place] [address] Care Team Providers Care Rod Hanger Name Role Phone Ibeth Lassiter MD Primary Care Provider [phone] Reason for Visit * Reason Onset Date Comments Results 03/27/2024 Care Coordination 03/27/2024 C3 initial a ssessment/ enrollment Encounter Details Date Type Department Care Team ([facility] Contact Info) Description 03/27/2024 Telephone [facility] MED & PEDS [address] [place] [address] Ibeth Lassiter MD [address] [place] [address] Results; Care Coordination ([facility] initial assessment/ enrollment) Social History Tobacco Use Types Packs/Day Years [...] Recorded Patient Health Questionnaire-2 Score 6 11/08/2023 Comments No Sex and Gender Information Value Date Recorded Sex Assigned at Female 04/03/2022 10:40 AM EDT Legal Sex Female 10:40 AM EDT Gender Identity Female 04/03/2022 10:40 AM EDT Sexual Orientation Bisexual 06/30/2022 4: 50 PM EST Sexual Orientation Straight 06/30/2022 4: 50 PM EST documented as of this encounter Miscellaneous Notes * Telephone Encounter - Doreen Johnston RN - 04/10/2024 9:47 AM EST JORDAN Johnston RN, provided notification to PCP Dr. Lassiter of patient's enrollment into C3 Complex Care Program. JORDAN Johnston RN, completed care plan and sent to HIM to be scanned into the medical record. PCP notified and awaiting review from provider. CM plan is to remind pt of her appointments and review office visit with pt to ensure compliance with recommendations. CM plan is to assist pt with PT1 transportation to aid in compliance to her medical appointments CM plan to provide health education of pt's medical condition and management. CM plan to assess pt for depression during f/u calls and assist pt with resources if needed. * Telephone Encounter - Doreen Johnston RN - 04/10/2024 9:46 AM EST JORDAN Johnston RN placed outbound call to patient for agreed upon time for initial assessment for enrollment into Adult Care Management Program. Patient's name, , and address were verified. Patient is 28 year old female with medical history significant for anxiety, alcohol use disorder, epigastric pain, major depressive disorder. Pt states she has an upcoming MRI of the pancreas on 04/23/24and then she will be scheduled a f/u appointment with the GI specialist. According to pt, she will need assistance with transportation to her appointment. Pt will be enrolled with PT1 for transportation. Pt states she was hospitalized about 2 days ago [place] [facility] [place]. Pt states she triesto avoid spicy food which triggers the pain. t states she is supposed to wear eyeglasses due to difficulty with her vision but hasn't seen the access control specialist in a very long time. CM will mail a list of access control specialist to pt's address on file and pt advise to call and schedule an appointment. Pt states she has seen the dentist within 12 months. According to pt, she has lost a lot of pain due to theepigastric pain. Also, she doesn't take any vitamins or supplement and do not exercise due to the pain. Pt states she takes Morphine for the pain with good effect. Pt states she feels safe in her home and denies drinking or smoking at this time. Pt states she is compliance with all her medications and denies any side effect of her medications. Pt reports depression and states she is coping well at this time. Pt states she has the number for crisis and encourage to call when needed. Pt denies SI/ at this time. Pt declined when offered to be connected to a therapist. Pt express personal goals of compliant with all her appointment and also to call and reconnect to optometry once she receives the list of providers. CM plan is to remind pt of her appointments and review office visit with pt to ensure compliance with recommendations. CM plan is to assist pt with PT1 transportation to aid in compliance to her medical appointments CM plan to provide health education of pt's medical condition and management. CM plan to assess pt for depression during f/u calls and assist pt with resources if needed. Care management program explained and contact information given. Patient verbalizes understanding, and able to repeat back to senior grant writer. A follow up call will be placed within 10 days, patient agrees with plan. * Telephone Encounter - Nancy Aguilar RN - 04/02/2024 3:[address] was ordered by outside provider. Upon pt chart review, pt is currently admitted [place] [facility] for Abd pain after biliary stent placement. Pt to f/u once discharged. * Telephone Encounter - Catie Prieto - 03/27/2024 2:17 PM EDT TC from pt requesting call back regarding Results. Type of results: Ultrasound Date when done: 2 weeks ago Facility[place] [facility] Contact pt at [phone] documented in this encounter Plan of Treatment Upcoming Encounters Date Type Department Care Team (Late st Contact Info) Description 07/24/2024 2:30 PM EST Clinical Support [facility] MED & PEDS [address] [place] [address] Anastasiia Ocampo RN [address] [place] [address] 09/10/2024 11:30 AM EDT Office Visit [facility] MED & PEDS [address] [place] [address] Rosalina Mathews MD [address] [place] [address] documented as of this encounter Visit Diagnoses Not on filedocumented in this encounter Additional Health Concerns Assessment Noted Time PHQ-9 Depression Total Score: 24 024 3:55 PM EDT documented as of this encounter Care Teams Rod Hanger Relationship Specialty Start Date End Date Ibeth Lassiter MD [address] [place] [address] PCP - General Family Medicine 12/16/21 documented as of this encounter
--- OUTSIDE RECORDS SUMMARY | 2024-07-16 13:55 | XMS_ITS | Encounter Summary ---
Author Organization [employer] Address [address] [facility] 7t [place] [address] Care Team Providers Care Conveyor Feeder Offbearer Name Role Phone Ibeth Lassiter MD Primary Care Provider [phone] Reason for Visit * Reason Onset Date Comments Appointment Request 06/27/2024 Encounter Details Date Type Department Care Team ([facility] st Contact Info) Description 06/27/2024 Telephone [facility] MEDICINE [address] [place] [address] Ibeth Lassiter MD [address] [place] [address] Appointment Request Social History Tobacco Use Types Packs/Day Years [...] encounter Miscellaneous Notes * Telephone Encounter - Damon Hoover - 06/27/2024 4:06 PM EST Tc from pt requesting to R/s appt from 06/12. Contact pt at [phone] documented in this encounter Plan of Treatment Upcoming Encounters Date Type Department Care Team ([facility] st Contact Info) Description 07/24/2024 2:30 PM EST Clinical Support [facility] MED & PEDS [address] [place] [address] Anastasiia Ocampo RN [address] [place] [address] 09/10/2024 11:30 AM EDT Office Visit [facility] MED & PEDS [address] [place] [address] Rosalina Mathews MD [address] [place] [address] documented as of this encounter Visit Diagnoses Not on filedocumented in this encounter Additional Health Concerns Assessment Noted Time PHQ-9 Depression Total Score: 22 025 10:04 AM EST documented as of this encounter Care Teams Conveyor Feeder Offbearer Relationship Specialty Start Date End Date Ibeth Lassiter MD [address] [place] [address] PCP - General Family Medicine 12/16/21 documented as of this encounter
--- OUTSIDE RECORDS SUMMARY | 2024-07-16 13:55 | XMS_ITS | Encounter Summary ---
Author Organization [employer] Address 75 [facility] 7t [place] [address] Care Team Providers Care Line Service Technician Name Role Phone Ibeth Lassiter MD Primary Care Provider [phone] Reason for Visit * Reason Comments Transition Of Care (Tcm) Encounter Details Date Type Department Care Team ([facility] st Contact Info) Description 07/16/2024 Patient Outreach [facility] MED & PEDS [address] [place] [address] Ibeth Lassiter MD [address] [place] [address] Transition Of Care (Tcm) Social History Tobacco [...] as of this encounter Progress Notes * Coco Hedrick RN - 07/16/2024 10:50 AM EST Transition of Care Note Deepit Aguilar is going through a recent transition of care. documented in this encounter Plan of Treatment Upcoming Encounters Date Type Department Care Team (Late st Contact Info) Description 07/24/2024 2:30 PM EST Clinical Support [facility] MED & PEDS [address] [place] [address] Anastasiia Ocampo RN [address] [place] [address] 09/10/2024 11:30 AM EDT Office Visit [facility] MED & PEDS [address] [place] [address] Rosalina Mathews MD [address] [place] [address] documented as of this encounter Visit Diagnoses Not on filedocumented in this encounter Additional Health Concerns Assessment Noted Time PHQ-9 Depression Total Score: 22 025 10:04 AM EST documented as of this encounter Care Teams Line Service Technician Relationship Specialty Start Date End Date Ibeth Lassiter MD [address] [place] [address] PCP - General Family Medicine 12/16/21 documented as of this encounter
--- OUTSIDE RECORDS SUMMARY | 2024-07-16 13:55 | XMS_ITS | Encounter Summary ---
Author Organization [employer] Address 75 [facility] 7t [place] [address] Care Team Providers Care Fleet Maintenance Manager Name Role Phone Ibeth Lassiter MD Primary Care Provider [phone] Reason for Visit * Reason Comments Transition Of Care (Tcm) Encounter Details Date Type Department Care Team ([facility] st Contact Info) Description 07/14/2024 Patient Outreach [facility] MED & PEDS [address] [place] [address] Ibeth Lassiter MD [address] [place] [address] Transition Of Care (Tcm) Social History Tobacco [...] as of this encounter Progress Notes * Nancy Aguilar RN - 07/14/2024 9:18 AM EST Transition of Care Note Deepti Aguilar is going through a recent transition of care. * Kandis Martínez RN - 07/14/2024 9:18 AM EST Transition of Care Note Deepti is going through a recent transition of care. Hospital Discharges and Admission for [facility] Type of Visit: Emergency Department Date of Admission/Visit: 07/12/24 Date of Discharge: 07/13/24 Facility: [facility] Diagnosis: Unspecified abdominal pain (R10.9) - A Acute pancreatitis without necrosis or infection,unspecified (K85.90) - F Unspecified abdominal pain (R10.9) - F Insomnia, unspecified (G47.00) - W Disposition: Discharged Home Follow-Up Actions Follow-Up Needed: Provider appointment Follow-Up Outcome: Spoke to Patient Initial Contact Date: 07/08/24 Patient was seen by provider for ED visit. The full discharge summary is available as a Scanned Document. Recent Visits Date Type Provider Dept 07/11/24 Office Visit Rosalina Mathews MD [facility] Med & [facility] 06/19/24 Office Visit Solis Lennon MD [facility] 06/02/24 Office Visit Ibeth Lassiter MD [facility] 02/29/24 Office Visit Ibeth Lassiter MD [facility] 02/14/24 Office Visit Ibeth Lassiter MD [facility]eds 11/08/23 Office Visit Ibeth Lassiter MD [facility] Med & Peds 10/25/23 Office Visit Ibeth Lassiter MD [facility] Med & Peds 09/24/23 Office Visit Ibeth Lassiter MD [facility] Med & Peds 09/18/23 Office Visit Zara Ng MD [facility] Med & Peds 03/30/23 Office Visit Ibeth Lassiter MD [facility] Med & Peds Showing recent visits within past 540 days with a meds authorizing provider and meeting all other requirements Future Appointments No visits were found meeting these conditions. Showing future appointments within next 150 days with a meds authorizing provider and meeting all other requirements documented in this encounter Plan of Treatment Upcoming Encounters Date Type Department Care Team (Late st Contact Info) Description 07/24/2024 2:30 PM EST Clinical Support [facility] MED & PEDS [address] [place] [address] Anastasiia Ocampo RN [address] [place] [address] 09/10/2024 11:30 AM EDT Office Visit [facility] MED & PEDS [address] [place] [address] Rosalina Mathews MD [address] [place] [address] documented as of this encounter Visit Diagnoses Not on filedocumented in this encounter Additional Health Concerns Assessment Noted Time PHQ-9 Depression Total Score: 22 025 10:04 AM EST documented as of this encounter Care Teams Fleet Maintenance Manager Relationship Specialty Start Date End Date Ibeth Lassiter MD [address] [place] [address] PCP - General Family Medicine 12/16/21 documented as of this encounter
--- OUTSIDE RECORDS SUMMARY | 2024-07-16 13:55 | XMS_ITS | Encounter Summary ---
Author Organization [employer] Address 75 [facility] 7t [place] [address] Care Team Providers Care Plant Accountant Name Role Phone Ibeth Lassiter MD Primary Care Provider [phone] Encounter Details Date Type Department Care Team ([facility] st Contact Info) Description 06/19/2024 11:30 AM EST Office Visit [facility] MED & PEDS [address] [place] [address] Solis Taylor MD 505 [place] [address] Chronic abdominal pain (Primary Dx); Alcohol-induced chronic pancreatitis (CMS/HCC) Social History Tobacco [...] PM EST documented as of this encounter Last Filed Vital Signs Vital Sign Reading Time Taken Comments Blood Pressure 133/82 06/19/2024 11:37 AM EST Pulse 84 06/19/2024 11:37 AM EST Temperature 36.1 ??C (97 ??F) 06/19/2024 11:37 AM EST Respiratory Rate 20 06/19/2024 11:37 AM EST Oxygen Saturation 98% 06/19/2024 11:37 AM EST Inhaled Oxygen Concentration - - Weight 55.8 kg (123 lb) 06/19/2024 11:37 AM EST Height 167.6 cm (5' 6 ) 06/19/2024 11:37 AM EST Body Mass Index 19.85 06/19/2024 11:37 AM EST documented in this encounter Progress Notes * Solis Lennon MD - 06/19/2024 11:30 AM EST Subjective Patient ID: Deepti Aguilar is a 28 y.o. female who presents for No chief complaint on file.. Abdominal Pain This is a chronic problem. The problem occurs constantly. The pain is located in the epigastric region. Pertinent negatives include no constipation, diarrhea, hematochezia or weight loss. Review of Systems Constitutional: Negative for weight loss. Gastrointestinal: Positive for abdominal pain. Negative for constipation, diarrhea and hematochezia. Objective Physical Exam Constitutional: Appearance: Normal appearance. Abdominal: General: Abdomen is flat. There is no distension. Tenderness: There is abdominal tenderness. There is no guarding or rebound. Neurological: General: No focal deficit present. Mental Status: She is alert and oriented to person, place, and time. Psychiatric: Mood and Affect: Mood normal. Behavior: Behavior normal. Assessment/Plan Problem List Items Addressed This Visit Chronic pancreatitis (CMS/HCC) Relevant Medications morphine (MSIR) 15 MG tablet Other Visit Diagnoses Chronic abdominal pain - Primary Chronic pancreatitis/abdominal pain, denied alcohol intake since September, followed by GI, will renew morhine, no fever/chills, abdominal distention documented in this encounter Plan of Treatment Upcoming Encounters Date Type Department Care Team (Late st Contact Info) Description 07/24/2024 2:30 PM EST Clinical Support [facility] MED & PEDS [address] [place] [address] Anastasiia Ocampo RN [address] [place] [address] 09/10/2024 11:30 AM EDT Office Visit [facility] MED & PEDS [address] [place] [address] Rosalina Mathews MD [address] [place] [address] documented as of this encounter Visit Diagnoses Diagnosis Chronic abdominal pain- Primary Abdominal pain, unspecified site Alcohol-induced chronic pancreatitis (CMS/HCC) Chronic pancreatitis documented in this encounter Additional Health Concerns Assessment Noted Time PHQ-9 Depression Total Score: 22 025 10:04 AM EST documented as of this encounter Care Teams Plant Accountant Relationship Specialty Start Date End Date Ibeth Lassiter MD [address] [place] [address] PCP - General Family Medicine 12/16/21 documented as of this encounter
--- OUTSIDE RECORDS SUMMARY | 2024-07-16 13:55 | XMS_ITS | Encounter Summary ---
Author Organization [employer] Address 75 [facility] 7t [place] [address] Care Team Providers Care Food Packer Name Role Phone Ibeth Lassiter MD Primary Care Provider [phone] Reason for Visit * Reason Comments Transition Of Care (Tcm) HDF scheduled Encounter Details Date Type Department Care Team ([facility] st Contact Info) Description 07/08/2024 Patient Outreach [facility] MEDICINE [address] [place] [address] Ibeth Lassiter MD [address] [place] [address] Transition Of Care (Tcm) (HDF scheduled) Social History Tobacco Use Types Packs/Day Years [...] as of this encounter Miscellaneous Notes * Significant Event - Aida Wright - 07/08/2024 10:24 AM EST 07/08/24 1023 Hospital Discharges and Admission for [facility] Type of Visit Hospital Admission Date of Admission/Visit 06/03/24 Date of Discharge 07/06/24 Facility [facility] Diagnosis chronic pancreatittis Disposition Discharged Home Follow-Up Actions Follow-Up Needed Provider appointment Follow-Up Outcome Spoke to Patient Initial Contact Date 07/08/24 GISELA Parra placed outbound call to patient for HDF outreach. CC placing call to offer patient with an HDF appointment with provider. Patient's name and were confirmed. Patient was educated on the importance of following up with provider following an inpatient admission. Patient offered an HDF appt. Patient is agreeable to an appointment and has been scheduled for 07/11/2024 at 9:15 am with Reid, insurance verified prior to scheduling. Patient advised to bring to appointment a photo id and insurance card. Biggest concerns at appointment at this time is --- Patient provided with education on contacting the Health Center with any questions or concerns prior to the scheduled appointment. Patient educated on extended clinic hours on Mondays and Wednesdays, and Walk-In Urgent Care Located in [facility]. Patient provided with after-hours line for [facility], , which offer night time triage service and option to transfer to salesperson sheet music provider if needed. [facility] discharge summary has been scanned into patient chart for review documented in this encounter Plan of Treatment Upcoming Encounters Date Type Department Care Team (Late st Contact Info) Description 07/24/2024 2:30 PM EST Clinical Support [facility] MED & PEDS [address] [place] [address] Anastasiia Ocampo, EL [address] [place] [address] 09/10/2024 11:30 AM EDT Office Visit [facility] MED & PEDS [address] [place], [place] [phone] Rosalina Mathews MD [address] [place] [address] documented as of this encounter Visit Diagnoses Not on filedocumented in this encounter Additional Health Concerns Assessment Noted Time PHQ-9 Depression Total Score: 22 025 10:04 AM EST documented as of this encounter Care Teams Food Packer Relationship Specialty Start Date End Date Ibeth Lassiter MD [address] [place] [address] PCP - General Family Medicine 12/16/21 documented as of this encounter
--- OUTSIDE RECORDS SUMMARY | 2024-07-16 13:55 | XMS_ITS | Encounter Summary ---
Author Organization [employer] Address 75 [facility] 7t [place] [address] Care Team Providers Care Sales Representative Door To Door Name Role Phone Ibeth Lassiter MD Primary Care Provider [phone] Reason for Visit * Reason Onset Date Comments Appointment Request 05/08/2024 Encounter Details Date Type Department Care Team ([facility] st Contact Info) Description 05/08/2024 Telephone [facility] MEDICINE [address] [place] [address] Ibeth Lassiter MD [address] [place] [address] Appointment Request Social History Tobacco Use Types [...] encounter Miscellaneous Notes * Telephone Encounter - Bernabe Brand - 05/08/2024 12:41 PM EST Tc from pt requesting to reschedule ORTHOTICS ASSISTANT visit from 05/15 due to having a different appt at the sametime. Please contact pt at [phone]. documented in this encounter Plan of Treatment Upcoming Encounters Date Type Department Care Team ([facility] st Contact Info) Description 07/24/2024 2:30 PM EST Clinical Support [facility] MED & PEDS [address] [place] [address] Anastasiia Ocampo RN [address] [place] [address] 09/10/2024 11:30 AM EDT Office Visit [facility] MED & PEDS [address] [place] [address] Rosalina Mathews MD [address] [place] [address] documented as of this encounter Visit Diagnoses Not on filedocumented in this encounter Additional Health Concerns Assessment Noted Time PHQ-9 Depression Total Score: 24 024 3:55 PM EDT documented as of this encounter Care Teams Sales Representative Door To Door Relationship Specialty Start Date End Date Ibeth Lassiter MD [address] [place] [address] PCP - General Family Medicine 12/16/21 documented as of this encounter
--- OUTSIDE RECORDS SUMMARY | 2024-07-16 13:55 | XMS_ITS | Encounter Summary ---
Author Organization [employer] Address 75 [facility] 7t [place] [address] Care Team Providers Care Paper Cone Grader Name Role Phone Ibeth Lassiter MD Primary Care Provider [phone] Reason for Referral * Imaging (Routine) - Closed Specialty Diagnoses / Procedures Referred By Contfrancy t Referred To Contact Radiology Diagnoses Mastodynia of left breast Procedures BI Mammogram Diagnostic Bilateral Bailee Lewis MD [address] [place] [address] Phone: tel: fax: [address] Phone: tel: fax: Referral ID Status Reason Start Date Expiration Date Visits Re quested Visits Authorized [id number] Closed 12/22/2022 12/22/2023 1 1 Encounter Details Date Type Department Care Team (Late st Contact Info) Description 12/22/2022 Orders Only [facility] MEDICINE [address] [place], [place] [phone] Bailee Lewis MD [address] [place], [place] [phone] Mastodynia of left breast (Primary Dx) Social History Tobacco Use Types Packs/Day Years Used Date Smoking Tobacco: Never Passive Smoke Exposure: Never Smokeless Tobacco: Never Alcohol Use Standard Drinks/Week Comments Never 0 (1 standard drink = 0.6 oz pur e alcohol) Comments No Sex and Gender Information Value Date Recorded Sex Assigned at Female 04/03/2022 10:40 AM EDT Legal Sex Female 10:40 AM EDT Gender Identity Female 04/03/2022 10:40 AM EDT Sexual Orientation Bisexual 06/30/2022 4: 50 PM EST Sexual Orientation Straight 06/30/2022 4: 50 PM EST COVID-19 Exposure Response Date Recorded In the last 10 days, have yo u been in contact with someone who was confirmed or suspected to have Coronavirus/COVID-19? No / Unsure 11/28/2022 1:01 PM EDT documented as of this encounter Plan of Treatment Upcoming Encounters Date Type Department Care Team (Late st Contact Info) Description 07/24/2024 2:30 PM EST Clinical Support [facility] MED & PEDS [address] [place] [address] Anastasiia Ocampo RN [address] [place] [address] 09/10/2024 11:30 AM EDT Office Visit [facility] MED & PEDS [address] [place] [address] Rosalina Mathews MD [address] [place] [address] Scheduled Orders Name Type Priority Associated Diagnoses Orde r Schedule BI Mammogram Diagnostic Bilateral Imaging Routine Mastodynia of left breast Expected: 12/22/2022, Expires: 02/23/2024 documented as of this encounter Procedures Procedure Name Priority Date/Time Associated Diagnosis Comments BI US BREAST LIMITED LEFT Routine 01/16/2023 3:00 PM EDT documented in this encounter Results * BI US Breast Limited Left (01/16/2023 3:00 PM EDT) Anatomical Region Laterality Modality Breast Left Ultrasound 01/16/2023 3:00 PM EDT Narrative 01/16/2023 3:34 PM EDT ? [facility] ? [address] ?[place] [address] ? Ultrasound Report ? Signed ? Patient: Aguilar,Deepti ?MR#: [id number] ?? 5 ? : 1995 ?Acct:[id number] ? Age/Sex: 27 / F ?ADM Date: 01/16/23 ? Loc: HO.MAMMO ? Attending Dr: Yuly Guzman CNM ? Ordering Physician: YULY GUZMAN CNM ?? Date of Service: 01/16/23 ?? Procedure(s): US breast LT limited mamm only ?? Accession Number(s): [id number] ? cc: YULY GUZMAN CNM ? EXAMINATION: ?? US DIAGNOSTIC ULTRASOUND BREAST, LEFT ? CLINICAL INFORMATION: ? Patient complaining of left breast pain lower quadrant 4:00-8:00 axis. ? COMPARISON: ?? None available. ? TECHNIQUE: ?? Ultrasound of the left breast is performed in the area indicated by the ?? patient with real-time ashraf scale imaging and color Doppler. ? FINDINGS: ?? There is no focal suspicious finding. ??There is no solid mass, ?? architectural abnormality, duct ectasia, or edema in the soft tissue ?? planes. No cystic abnormalities. Only normal fibroglandular breast ?? parenchyma is identified. ? Results were discussed with the patient at time of visit. ? US/US breast LT limited mamm only ?? IMPRESSION: ?? No findings suspicious for malignancy. Negative exam. No sonographic ?? correlate to the region of breast pain left breast lower quadrant. ? Recommend clinical management. ? ASSESSMENT: ? BI-RADS 1: Negative ? RECOMMENDATION: ?? Clinical management. ? Dictated By: ?Rodrigo Corley MD ? Signed By: ?<Electronically signed by Rodrigo Corley MD in OV> ?01/16/23 1531 ? DD/ 1500 ? TD/TT: ? Senior Project Coordinator: ? Procedure Note Edmund, Image - 01/16/2023 [facility] [address] [place] [address] [place] [address] Ultrasound Report Signed Patient: Tori Aguilar#: [id number] 5 : 1995Acct:[id number] Age/Sex: 27 / FADM Date: 01/16/23 Loc: HO.MAMMO Attending Dr: Yuly Guzman CNM Ordering Physician: YULY GUZMAN CNM Date of Service: 01/16/23 Procedure(s): US breast LT limited mamm only Accession Number(s): [id number] cc: YULY GUZMAN CNM EXAMINATION: US DIAGNOSTIC ULTRASOUND BREAST, LEFT CLINICAL INFORMATION: Patient complaining of left breast pain lower quadrant 4:00-8:00 axis. COMPARISON: None available. TECHNIQUE: Ultrasound of the left breast is performed in the area indicated by the patient with real-time ashraf scale imaging and color Doppler. FINDINGS: There is no focal suspicious finding. There is no solid mass, architectural abnormality, duct ectasia, or edema in the soft tissue planes. No cystic abnormalities. Only normal fibroglandular breast parenchyma is identified. Results were discussed with the patient at time of visit. US/US breast LT limited mamm only IMPRESSION: No findings suspicious for malignancy. Negative exam. No sonographic correlate to the region of breast pain left breast lower quadrant. Recommend clinical management. ASSESSMENT: BI-RADS 1: Negative RECOMMENDATION: Clinical management. Dictated By: Rodrigo Corley MD Signed By: <Electronically signed by Rodrigo Corley MD in OV> 01/16/23 1531 DD/ 1500 TD/TT: Senior Project Coordinator: Yuly Guzman CNM IMG US PROCEDURES Final R esult documented in this encounter Visit Diagnoses Diagnosis Mastodynia of left breast- Primary documented in this encounter Additional Health Concerns Assessment Noted Time PHQ-9 Depression Total Score: 8 06/29/19 23 2:00 PM EST documented as of this encounter Care Teams Paper Cone Grader Relationship Specialty Start Date End Date Ibeth Lassiter MD [address] [place] [address] PCP - General Family Medicine 12/16/21 documented as of this encounter
--- OUTSIDE RECORDS SUMMARY | 2024-07-16 13:55 | XMS_ITS | Encounter Summary ---
Author Organization [employer] Address [address] [facility] [address] 7[address] [place] [address] Care Team Providers Care Structural Shop Helper Name Role Phone Ibeth Lassiter MD Primary Care Provider [phone] Encounter Details Date Type Department Care Team (Latest Contact Info) Description 06/19/2024 Travel Social History Tobacco Use Types Packs/Day [...] 2:30 PM EST Clinical Support [facility] MED & PEDS [address] [place] [address] Anastasiia Ocampo RN [address] [place] [address] 09/10/2024 11:30 AM EDT Office Visit [facility] MED & PEDS [address] [place] [address] Rosalina Mathews MD [address] [place] [address] documented as of this encounter Visit Diagnoses Not on filedocumented in this encounter Additional Health Concerns Assessment Noted Time PHQ-9 Depression Total Score: 22 025 10:04 AM EST documented as of this encounter Care Teams Structural Shop Helper Relationship Specialty Start Date End Date Ibeth Lassiter MD [address] [place] [address] PCP - General Family Medicine 12/16/21 documented as of this encounter
--- OUTSIDE RECORDS SUMMARY | 2024-07-16 13:55 | XMS_ITS | Encounter Summary ---
Author Organization [employer] Address 75 [facility] 7 [place] [address] Care Team Providers Care Cobol Engineer Name Role Phone Ibeth Lassiter MD Primary Care Provider [phone] Reason for Visit * Reason Onset Date Comments Med Refill 07/16/2024 Encounter Details Date Type Department Care Team ([facility] st Contact Info) Description 07/16/2024 Refill [facility] MED & PEDS [address] [place] [address] Solis Taylor MD [address] [place] [address] Alcohol-induced chronic pancreatitis (CMS/HCC) Social History Tobacco [...] 07/24/2024 2:30 PM EST Clinical Support [facility] MED & PEDS [address] [place] [address] Anastasiia Ocampo RN 505 [place] [address] 09/10/2024 11:30 AM EDT Office Visit [facility] MED & PEDS [address] [place] [address] Rosalina Mathews MD [address] [place] [address] documented as of this encounter Visit Diagnoses Diagnosis Alcohol-induced chronic pancreatitis (CMS/HCC) Chronic pancreatitis documented in this encounter Additional Health Concerns Assessment Noted Time PHQ-9 Depression Total Score: 22 025 10:04 AM EST documented as of this encounter Care Teams Cobol Engineer Relationship Specialty Start Date End Date Ibeth Lassiter MD [address] [place] [address] PCP - General Family Medicine 12/16/21 documented as of this encounter
--- OUTSIDE RECORDS SUMMARY | 2024-07-16 13:55 | XMS_ITS | Encounter Summary ---
Author Organization [employer] Address [address] [facility] [address] [place] [address] Care Team Providers Care Equipment Sterilizer Name Role Phone Ibeth Lassiter MD Primary Care Provider [phone] Reason for Visit * Reason Comments Follow-up HDF - chronic pancre atitis Encounter Details Date Type Department Care Team ([facility] st Contact Info) Description 07/11/2024 9:30 AM EST Office Visit [facility] MED & PEDS [address] [place], [place] [id number] Rosalina Mathews MD [address] [place] [address] Chronic pancreatitis, unspecified pancreatitis type (CMS/HCC) (Primary Dx) Social History Tobacco Use Types [...] Sign Reading Time Taken Comments Blood Pressure 116/75 07/11/2024 9:29 AM EST Pulse 86 07/11/2024 9:29 AM EST Temperature 36.8 ??C (98.2 ??F) 07/11/2024 9:29 AM ES T Respiratory Rate 16 07/11/2024 9:29 AM EST Oxygen Saturation 98% 07/11/2024 9:29 AM EST Inhaled Oxygen Concentration - - Weight 59.9 kg (132 lb) 07/11/2024 9:29 AM EST Height 167.6 cm (5' 6 ) 07/11/2024 9:29 AM EST Body Mass Index 21.31 07/11/2024 9:29 AM EST documented in this encounter Progress Notes * Rosalina Mathews MD - 07/11/2024 9:30 AM EST Images from the original note were not included. Subjective Patient ID: Deepti Aguilar is a 28 y.o. female who presents for Follow-up (HDF - chronic pancreatitis ). She was seen and treated for pancreatitis this morning She states she feels pain but improved Labs done this morning Review of Systems Constitutional: Negative. Respiratory: Negative. Negative for shortness of breath. Cardiovascular: Negative for chest pain and palpitations. Gastrointestinal: Negative. Genitourinary: Negative. Musculoskeletal: Negative for neck pain. Neurological: Negative for headaches. Objective Physical Exam Constitutional: Appearance: Normal appearance. Cardiovascular: Rate and Rhythm: Normal rate and regular rhythm. Pulses: Normal pulses. Heart sounds: Normal heart sounds. Pulmonary: Effort: Pulmonary effort is normal. Abdominal: General: Abdomen is flat. Tenderness: There is abdominal tenderness. Neurological: Mental Status: She is alert. Assessment/Plan Diagnoses and all orders for this visit: Chronic pancreatitis, unspecified pancreatitis type (CMS/HCC) Comments: Follows with GI Started on Meloxicam as needed Advised hydration and abstinence from alcohol Other orders - meloxicam (Mobic) 15 MG tablet; Take 1 tablet (15 mg) by mouth Once per day. documented in this encounter Plan of Treatment Upcoming Encounters Date Type Department Care Team (Late st Contact Info) Description 07/24/2024 2:30 PM EST Clinical Support [facility] MED & PEDS [address] [place] [address] Anastasiia Ocampo RN [address] [place] [address] 09/10/2024 11:30 AM EDT Office Visit [facility] MED & PEDS [address] [place] [address] Rosalina Mathews MD [address] [place] [address] documented as of this encounter Visit Diagnoses Diagnosis Chronic pancreatitis, unspecified pancreatitis type (CMS/HCC)- Primary documented in this encounter Additional Health Concerns Assessment Noted Time PHQ-9 Depression Total Score: 22 025 10:04 AM EST documented as of this encounter Care Teams Equipment Sterilizer Relationship Specialty Start Date End Date Ibeth Lassiter MD [address] [place] [id number] PCP - General Family Medicine 12/16/21 documented as of this encounter
--- OUTSIDE RECORDS SUMMARY | 2024-07-16 13:56 | XMS_ITS | Encounter Summary ---
Author Organization [employer] Address [address] [facility] [address] [place] [address] Care Team Providers Care Claim Administrator Name Role Phone Ibeth Lassiter MD Primary Care Provider [phone] Reason for Visit * Reason Comments Med Refill Encounter Details Date Type Department Care Team ([facility] st Contact Info) Description 12/14/[address] [facility] MED & PEDS [address] [place] [address] Ibeth Lassiter MD [address] [place] [address] Mood disorder (CMS/HCC) Social History Tobacco Use Types Packs/Day [...] Description 07/24/2024 2:30 PM EST Clinical Support [facility] MED & PEDS [address] [place] [address] Anastasiia Ocampo RN [address] [place] [address] 09/10/2024 11:30 AM EDT Office Visit [facility] MED & PEDS [address] [place] [address] Rosalina Mathews MD [address] [place] [address] documented as of this encounter Visit Diagnoses Diagnosis Mood disorder (CMS/HCC) Unspecified episodic mood disorder documented in this encounter Additional Health Concerns Assessment Noted Time PHQ-9 Depression Total Score: 24 024 3:55 PM EDT documented as of this encounter Care Teams Claim Administrator Relationship Specialty Start Date End Date Ibeth Lassiter MD [address] [place] [address] PCP - General Family Medicine 12/16/21 documented as of this encounter
--- OUTSIDE RECORDS SUMMARY | 2024-07-16 13:56 | XMS_ITS | Clinical Summary ---
Author Organization [employer] Address [address] [place] [address] Care Team Providers Care Home Improvement Advisor Name Role Phone Ibeth Lassiter MD Primary Care Provider [phone] Allergies No known active allergies Medications * This document contains information received from the source organization and may not represent a complete record from that organization. albuterol 108 (90 Base) MCG/ACT inhalerIndication s:Exercise-induce d asthma Inhale 2 puffs every 6 (six) hours if needed for shortness of breath. 18 g 5 023 Active polyethylene glycol, PEG, 3350 (MiraLax) 17 GM/SCOOP powder Take 17 g by mouth Once per day. 527 g 3 024 Active senna-docusate sodium (Senokot-S) 8.6-50 MG tablet Take 2 tablets by mouth Once per day. 180 tablet 1 024 Active naloxone (Narcan) 4 mg/0.1 mL nasal spray Administer 1 spray (4 mg) into affected nostril(s) if needed for opioid reversal. May repeat every 2-3 minutes if needed, alternating nostrils, until medical assistance becomes available. 2 each 024 2024 Active hydrOXYzine pamoate (Vistaril) 50 MG capsuleIndication s:Anxiety TAKE 1 CAPSULE BY MOUTH EVERY 6 HOURS NEEDED FOR ANXIETY 120 capsule 1 024 Active Creon 00139-137280 units capsule delayed-release particles capsule TAKE 1 CAPSULE BY MOUTH THREE TIMES DAILY TAKE WITH MEAL AND SNACK 024 Active OLANZapine zydis (ZyPREXA ZYDIS) 20 MG disintegrating tablet TAKE 1 TABLET BY MOUTH AT BEDTIME 30 tablet 2 Active pantoprazole (Protonix) 40 MG EC tablet Take 1 tablet (40 mg) by mouth 2 times daily. Do not crush, chew, or split. 180 tablet 1 Active mirtazapine (Remeron) 15 MG tablet Take 1 tablet (15 mg) by mouth at bedtime. 90 tablet 1 024 Active morphine (MSIR) 15 MG tabletIndications :Alcohol-induced chronic pancreatitis (CMS/HCC) Take 1.5 tablets (22.5 mg) by mouth every 12 (twelve) hours for 28 days. Take 2 tablets BID (decr qty to 100 tablets) 100 tablet 025 2024 Active pregabalin (Lyrica) 100 MG capsule Take 1 capsule by mouth 2 times daily. Active meloxicam (Mobic) 15 MG tablet Take 1 tablet (15 mg) by mouth Once per day. 30 tablet 11 025 2025 Active triamcinolone (Kenalog) 0.1 % creamIndications: Erythema ab igne Apply topically if needed in the morning and at bedtime (pain and swelling). 80 g 3 023 2024 Discontinued(M ed list cleanup (will not trigger notification to Pharmacy)) FLUoxetine (PROzac) 10 MG capsule Take 1 capsule (10 mg) by mouth in the morning. 30 capsule 2 023 2024 Discontinued(M ed list cleanup (will not trigger notification to Pharmacy)) methocarbamol (Robaxin) 500 MG tablet Take 2 tablets (1,000 mg) by mouth if needed in the morning, at noon, in the evening, and at bedtime for muscle spasms. 240 tablet 1 024 2024 Discontinued(M ed list cleanup (will not trigger notification to Pharmacy)) meloxicam (Mobic) 7.5 MG tablet Take 7.5 mg by mouth Once per day. 024 2024 Discontinued(M ed list cleanup (will not trigger notification to Pharmacy)) metoclopramide (Reglan) 10 MG tablet Take 1 tablet (10 mg) by mouth 4 times daily. 120 tablet 1 024 2024 Discontinued(M ed list cleanup (will not trigger notification to Pharmacy)) ferrous gluconate (Fergon) 324 (38 Fe) MG tabletIndications :Iron deficiency anemia, unspecified iron deficiency anemia type Take 1 tablet (324 mg) by mouth every other day. 90 tablet 4 024 2024 Discontinued(M ed list cleanup (will not trigger notification to Pharmacy)) apixaban (Eliquis) 5 MG tablet Take 1 tablet (5 mg) by mouth 2 times daily. 60 tablet 2 024 2024 Discontinued(M ed list cleanup (will not trigger notification to Pharmacy)) hydrocortisone (Anusol-HC) 2.5 % rectal cream Insert into the rectum 2 times daily. 90 g 024 2024 Discontinued(M ed list cleanup (will not trigger notification to Pharmacy)) morphine (MSIR) 15 MG tabletIndications :Alcohol-induced chronic pancreatitis (CMS/HCC) Take 1.5 tablets (22.5 mg) by mouth every 12 (twelve) hours for 28 days. Take 2 tablets BID (decr qty to 100 tablets) 100 tablet 024 2024 Discontinued(R eorder (will not trigger notification to Pharmacy)) cefuroxime (Ceftin) 250 MG tablet Take 1 tablet by mouth 2 times daily. 025 2024 Active Problems Problem Noted Date Diagnosed Date Hematemesis 06/02/2024 Assessment & Plan (06/02/2024 1:46 PM EST): Prescribed Protonix 40 MG BID. Follow up in 4 months. Relevant Medications Pantoprazole (Protonix) 40 MG EC tablet History of cholecystectomy 06/02/2024 Pelvic pain 02/29/2024 Hemorrhoids, external, thrombosed 02/29/2024 Assessment & Plan (02/29/2024 11:22 AM EDT): Advised pt to consider Sitz baths in order to relieve pain and swelling. Relevant Orders: Hydrocortisone (Anusol-HC) 2.5 % rectal cream Polyethylene glycol, PEG, 3350 (MiraLax) 17 GM/SCOOP powder Senna-docusate sodium (Senokot-S) 8.6-50 MG tablet Headache 02/19/2024 Other chronic pain 12/03/2023 Chronic pancreatitis 11/30/2023 Assessment & Plan (03/19/2024 10:02 AM EDT): Patient reports has appt with GI today, aware she can't take tramadol if she is on morphine, if continues will need to wean off rapidly her opiates due to inappropriate use. Will cont current dose and cont decrease next month of 10%. History of pancreatitis 10/25/2023 Acute epigastric pain 10/25/2023 Failure to thrive in adult 10/25/2023 Assessment & Plan (11/08/2023 4:21 PM EDT): Pt has lost two more pounds. -Prescribed: Mirtazapine (Remeron) 7.5 MG tablet to aid in mood and increasing appetite Pt would like to start the process to be approved for Ensure/ Meal replacement shakes through insurance. Assessment & Plan (10/30/2023 10:10 AM EDT): Patient has lost significant amount of weight given severe infection, she declined rx for nutritional supplementation for the moment. Recommend small reintroduction of liquid meals for nutrition. History of substance abuse 09/24/2023 Overview (09/24/2023): ER visit 06/24/2011 Abdominal pain 09/24/2023 Alcohol use, unspecified, in remission Assessment & Plan (09/18/2023 1:20 PM EDT): During IBH Consult Deepti presenting with spending a lot of time getting/using/recovering from use , recurrent use resulting in failure to fulfill major obligations at work/home/school , continued use, even when it causes interpersonal problems, continued use even when hazardous or dangerous , continued use despite physical or psychological problem (potentially related or made worse by use) , in regard to Alcohol; for a period of 0-6 mo, for all symptoms in the context of illness or family illness. Deepti has been struggling with anxiety on and off for the last years, takes medication to decrease anxiety sxs. About one month and a half, per patient's report, Deepti started misusing alcohol leading to medical complications (chronic pancreatitis). Pt reports not abusing alcohol for about two weeks now. PLAN: (check all that apply) New/Additional Services needed On-site non-integrated services Off-site services for Behavioral Health Integration Plan Internal Warm handoff Recovery Coaching External OP therapy referral Patient Self Plan Patient to utilize skills provided in intervention , Patient to reach out to [facility] team as needed, Comply with medication , Patient to engage in OP therapy , and Patient to reach out to [facility] as needed. Referral for Cq Developer will be placed. Acute hemorrhagic pancreatitis 09/18/2023 PVT (portal vein thrombosis) 09/18/2023 Overview (09/24/2023): Treat patient for PVT from 3-6 months, repeat imaging 3-6 months and every 6 months thereafter to assess thrombosis improvement, stability, progression if patient develops symptoms suggesting re-thrombosis, assess with CT or MRI consider magnetic resonance cholangiopathy at 9-12 months if anticoagulant therapy does not achieve recanalization, to assess potential complication of portal cholangiopathy Assessment & Plan (09/24/2023 9:22 PM EDT): Will cont treatment for 3-6 months, needs reimaging in 3-6 months sp. Cont w/ eliquis for now. Will refer to hematology to assist with management. Hyperglycemia 09/18/2023 Assessment & Plan (09/24/2023 4:41 PM EDT): Ordering blood glucose machine for at home monitoring while on medications and recovery of pancreatitis. 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 Recommended to f.u with Surgeon and Pain management. -Referral to General Surgery Assessment & Plan (02/19/2024 10:34 AM EDT): Patient will be started to wean off by 10% every month, recommend to f.up with surgeon and pain management. Assessment & Plan (12/26/2023 11:11 AM EDT): Will continue monitoring and following up to wean off. Pending appt with pain management, as she continues to require high dose of narcotics to control her pain. Assessment & Plan (12/03/2023 1:51 PM EDT): Patient continues with extreme pain, couldn't proceed to wean off, will schedule f/up in 1 week. Will send to pain management. She has not picked up Zyprexa that was rx'ed last week. Assessment & Plan (10/30/2023 10:09 AM EDT): Patient has a drainage and currently on opiates for chronic pain. Will need to continue treatment and titrate as able. Reviewed discharge summary statement, she needs to continue with drain until she release less then 10 ml per day for 3 days in a row, she was provided with number for IR who placed tube. Assessment & Plan (09/24/2023 9:32 PM EDT): Will add muscle relaxer and cont lyrica for pain control management to assist with pain control w/o opiates. Did incr temporary dose of morphine 45 mg q4hrs, will f/up in 5 days, she is significantly elevated dose of morphine. Rx narcan, consider reducing dose to 30 mg or decr frequency to q6hrs. Physical exam 03/19/2023 Assessment & Plan (03/05/2024 1:54 PM EDT): 28 y.o. who was seen today for annual physical examination Vaccines reviewed Assessment & Plan (03/19/2023 6:06 PM EDT): 27 y.o. female here for CPE Pap smear UTD Declined influenza and COVID 19 vaccination Not a smoker Counseled on healty diet and physical activity Hx of Anxiety, medications adjusted. Atypical chest pain 11/03/2022 Assessment & Plan (11/06/2022 9:25 AM EDT): Will refer to global expansion sales director for further evaluation. 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 KENZIE (generalized anxiety disorder) 06/29/2022 Assessment & Plan (09/18/2023 1:20 PM EDT): During IBH Consult Deepti presenting with spending a lot of time getting/using/recovering from use , recurrent use resulting in failure to fulfill major obligations at work/home/school , continued use, even when it causes interpersonal problems, continued use even when hazardous or dangerous , continued use despite physical or psychological problem (potentially related or made worse by use) , in regard to Alcohol; for a period of 0-6 mo, for all symptoms in the context of illness or family illness. Deepti has been struggling with anxiety on and off for the last years, takes medication to decrease anxiety sxs. About one month and a half, per patient's report, Deepti started misusing alcohol leading to medical complications (chronic pancreatitis). Pt reports not abusing alcohol for about two weeks now. PLAN: (check all that apply) New/Additional Services needed On-site non-integrated services Off-site services for Behavioral Health Integration Plan Internal Warm handoff Recovery Coaching External OP therapy referral Patient Self Plan Patient to utilize skills provided in intervention , Patient to reach out to [facility] team as needed, Comply with medication , Patient to engage in OP therapy , and Patient to reach out to [facility] as needed. Referral for Cq Developer will be placed. Assessment & Plan (03/30/2023 11:56 AM EDT): Patient that presented visit with complaints of anxiety with have a discontinue of Sertraline and will start on Fluoxetine. Recommended patient to see a psychiatrist: patient declined. Message to pharmacotherapy for options in regards of further assisting patient with concern. Follow up in 6 months. Assessment & Plan (02/28/2023 11:07 AM EDT): Patient with complaints of anxiety will be given Zoloft. Assessment & Plan (09/14/2022 3:53 PM EDT): Refill anxiety mediaction. Increase effexor dose to 150mg, and discontinue seraquel. Follow up in 4-6 weeks. Assessment & Plan (06/29/2022 5:14 PM EST): Reports needing hydroxyzine more frequent then TID, using QID. RX sent. Continue Effexor, spoke with N about helping with getting a therapist for this patient Anemia 01/25/2022 Assessment & Plan (11/08/2023 4:27 PM EDT): Prescribed: Ferrous gluconate (Fergon) 324 (38 Fe) MG tablet -Pt was advised that if she is unable to tolerate taking med everyday due to upset stomach, to take it at least every 2 weeks. Assessment & Plan (11/06/2022 9:24 AM EDT): Will start on Fergon 324 mg tablet and send for hemoglobin electrophoresis. Will also schedule appointment with [facility] mangle feeder for AUB. Assessment & Plan (10/23/2022 4:36 PM EDT): Will send labs to recheck levels. Assessment & Plan (06/29/2022 5:12 PM EST): Will check levels, if improved discontinue iron supplementation depression 10/02/2020 Overview (06/28/2022): Last Assessment & Plan: Her post- depression has been persistent and complicated into mild MDD. She feels that she has a good therapeutic relationship with the in-home therapist who has been assigned by [facility] to her child for bipolar disorder and ADHD, so patient declines a referral to psychotherapy specifically for the patient. She did agree to start sertraline. I advised her about common side effects of nausea, diarrhea, and weight gain. In fact, the latter effect would be therapeutic as her BMI is now slightly below 18.5. I also advised her that it may be 4-6 weeks after starting sertraline before she notices improvement in her depression. -Start sertraline 50 mg daily -Follow up in 4 weeks Delivery of by section 2019 Overview (06/28/2022): Last Assessment & Plan: Will recheck CBC given her low H/H throughout . Discussed pelvic rest for 2 wks to allow additional time to heal given her current sx, and will re-eval at her next appt. Return precautions discussed. MDD (major depressive disorder), recurrent episo de, severe 04/15/2018 Overview (06/28/2022): Last Assessment & Plan: We'll start Seroquel today. We'll try extended release 200 mg. Plan to follow-up in about 2 weeks. We may increase dose at that time if necessary. Return precautions discussed. Assessment & Plan (06/02/2024 1:44 PM EST): Advised pt to call to schedule an appt with psychiatrist. Discussed medications and refills as needed. Relevant Medication Mirtazapine (Remeron) 15 mg tablet Alopecia 03/27/2016 Exercise-induced asthma 04/30/2013 Assessment & Plan (06/29/2022 5:12 PM EST): Patient w/ chest wall tightness and short of breathing, having to use her inhaler frequently, could have an exacerbation in the setting of likely recent viral infection. Will send steroid and refilled albuterol. Classic migraine with aura 04/30/2013 Encounters * This document contains information received from the source organization and may not represent a complete record from that organization. Date Type Department Care Team Description 07/16/2024 Patient Outreach [facility] [address] [place] [address] Ibeth Lassiter MD Transition Of Care (Tcm) 07/16/2024 Orders Only GENERIC EXTERNAL DATA DEPARTMENT Provider, Generic External Data 07/16/2024 Refill [facility] [address] [place] [address] Solis Taylor MD Alcohol-induced chronic pancreatitis (CMS/HCC) 07/14/2024 Patient Outreach [facility] [address] [place] [address] Ibeth Lassiter MD Transition Of Care (Tcm) 07/11/2024 9:30 AM EST Office Visit [facility] [address] [place] [address] Rosalina Mathews MD Chronic pancreatitis, unspecified pancreatitis type (CMS/HCC) (Primary Dx) 07/11/2024 Patient Outreach [facility] [address] [place] [address] Ibeth Lassiter MD Care Coordination (Outreach) 07/11/2024 Travel 07/11/2024 Patient Outreach [address] [address] Ibeth Lassiter MD Transition Of Care (Tcm) 07/08/2024 Patient Outreach [address] [address] Ibeth Lassiter MD Transition Of Care (Tcm) (HDF scheduled) 07/08/2024 Telephone [facility] [address] [place] [address] Ibeth Lassiter MD Hospital Follow-up; Care Coordination ([facility] program graduation.) 07/05/2024 Orders Only [facility] External Provider, [facility] 07/02/2024 Patient Outreach [facility] [address] [place] [address] Ibeth Lassiter MD Care Coordination (Outreach) 06/30/2024 Travel 06/30/2024 Telephone [facility] [address] [place] [address] Anastasiia Ocampo RN 06/30/2024 Telephone [facility] [address] [place] [address] Anastasiia Ocampo RN 06/27/[address] [address] Ibeth Lassiter MD Appointment Request 06/19/2024 11:30 AM EST Office Visit [facility] [address] [place] [address] Solis Taylor MD Chronic abdominal pain (Primary Dx); Alcohol-induced chronic pancreatitis (CMS/HCC) 06/19/[address] [address] Ibeth Lassiter MD Alcohol-induced chronic pancreatitis (CMS/HCC) 06/19/2024 Travel 06/18/2024 Telephone [facility] [address] [place] [address] Ibeth Lassiter MD Chart Prep 06/17/2024 Patient Outreach [facility] [address] [place] [address] Ibeth Lassiter MD Care Coordination (Outreach) 06/16/2024 Patient Outreach [address] [address] Ibeth Lassiter MD Transition Of Care (Tcm) 06/16/2024 Orders Only [facility] External Provider, [facility] 06/15/2024 Orders Only GENERIC EXTERNAL DATA DEPARTMENT Provider, Generic External Data 06/13/2024 Patient Outreach [address] [address] Ibeth Lassiter MD Transition Of Care (Tcm) 06/11/2024 Telephone [facility] [address] [place] [address] Ibeth Lassiter MD Appointment Request 06/09/2024 Patient Outreach [facility] [address] [place] [address] Ibeth Lassiter MD Care Coordination (Outreach) 06/09/2024 Patient Outreach [facility] [address] [place] [address] Ibeth Lassiter MD Transition Of Care (Tcm) 06/06/2024 Orders Only GENERIC EXTERNAL DATA DEPARTMENT Provider, Generic External Data 06/02/2024 1:15 PM EST Office Visit [facility] [address] [place] [address] Ibeth Lassiter MD History of cholecystectomy (Primary Dx); Hematemesis, unspecified whether nausea present; Major depressive disorder, remission status unspecified, unspecified whether recurrent 06/02/2024 Travel 05/30/2024 Telephone [facility] [address] [place] [address] Ibeth Lassiter MD chart prep 05/29/2024 Travel 05/29/2024 Telephone [facility] [address] [place] [address] Ibeth Lassiter MD Appointment Request 05/26/2024 Patient Outreach [facility] [address] [place] [address] Ibeth Lassiter MD Transition Of Care (Tcm) (HDF- Scheduled ) 05/22/2024 Patient Outreach [facility] [address] [place] [address] Ibeth Lassiter MD Transition Of Care (Tcm) (HDF- Unscheduled SECOND LVM) 05/21/2024 Refill [facility] [address] [place] [address] Ibteh Lassiter MD 05/20/2024 Patient Outreach [facility] [address] [place] [address] Ibeth Lassiter MD Care Coordination (Outreach) 05/19/2024 Refill [facility] [address] [place], [place] [phone] Ibeth Lassiter MD Alcohol-induced chronic pancreatitis (CMS/HCC) 05/16/2024 Telephone [facility] [address] [place], [place] [phone] Ibeth Lassiter MD Medication Question 05/16/2024 Patient Outreach [facility] [address] [place] [address] Ibeth Lassiter MD Pre-visit Planning (HDF- Unscheduled LVM) 05/15/2024 Telephone [facility] [address] [place] [address] Ibeth Lassiter MD 05/15/2024 Refill [facility] [address] [place] [address] Ibeth Lassiter MD Alcohol-induced chronic pancreatitis (CMS/HCC) 05/09/2024 Patient Outreach [facility] [address] [place] [address] Ibeth Lassiter MD Transition Of Care (Tcm) 05/09/2024 Orders Only GENERIC EXTERNAL DATA DEPARTMENT Provider, Generic External Data 05/08/2024 Telephone [facility] [address] [place] [address] Ibeth Lassiter MD Appointment Request 05/06/2024 Patient Outreach [facility] [address] [place] [address] Ibeth Lassiter MD Care Coordination (Outreach) 04/29/2024 Patient Outreach [facility] [address] [place] [address] Ibeth Lassiter MD Care Coordination (Outreach) 04/23/2024 Refill [facility] [address] [place] [address] Rosalina Mathews MD 04/17/2024 Telephone [facility] [address] [place] [address] Ibeth Lassiter MD Call back/[place] [facility] 04/17/2024 Patient Outreach [facility] [address] [place] [address] Ibeth Lassiter MD Care Coordination (Outreach) 04/17/2024 Orders Only GENERIC EXTERNAL DATA DEPARTMENT Provider, Generic External Data 04/17/2024 Refill [facility] [address] [place] [address] Ibeth Lassiter MD Alcohol-induced chronic pancreatitis (CMS/HCC) from Last 3 Months Immunizations Name Administration Dates Next Due DTaP, 5 pertussis antigens 12/24/2000,,02/12/1996,12/12,1995 HPV, Quadrivalent 01/10/2008,10/07/2007,02/07/20 07 Hep B, Adolescent or Pediatric 02/12/1996,1995,1995 Hib (HbOC) 01/27/1997, 6,1995,11/24 IPV 12/24/2000, 6,1995,10/24 Influenza, Recombinant, inje ctable, preservative free 07/23/2009 Influenza, live, intranasal 04/04/2011 Influenza, seasonal, injecta ble, preservative free 07/05/2024,05/15/2014 MMR 09/08/1999,01/27/1997 Meningococcal MPSV4 07/08/2008 Novel [id number], all formulations 07/23/2009 Rho(D)-IG IM 05/22/2020,03/20/2020,11/16/2019 Tdap 03/31/2020, 9,04/09/2017,05/15,02/06/2007 Varicella 07/08/2008,08/04/1996 Social History Tobacco Use Types Packs/Day Years Used Date Smoking Tobacco: Never Passive Smoke Exposure: Never Smokeless Tobacco: Never Tobacco Cessation:Counseling Given: Not Answered Alcohol Use Standard Drinks/Week Comments Never 0 [...] Orientation Straight 06/30/2022 4: 50 PM EST Last Filed Vital Signs Vital Sign Reading [...] Mass Index 21.31 07/11/2024 9:29 AM EST Plan of Treatment Upcoming Encounters Date Type Department Care Team (Late st Contact Info) Description 07/24/2024 2:30 PM EST Clinical Support [facility] [address] [place] [address] Anastasiia Ocampo, RN [address] [place] [address] 09/10/2024 11:30 AM EDT Office Visit [facility] [address] [facility] [place] [address] Rosalina Mathews MD [address] [place] [address] Health Maintenance Due Date Last Done Comments Family Planning (PISQ) 2010 COVID-19 Vaccine ( season) 2024 Diabetes: Hemoglobin A1C 05/30/2024 02/29/2024, 09/02 Alcohol/Substance Use Screening 09/17/2024 09/18/2023 Depression Monitoring (PHQ-9) 12/04/2024 06/06/2024, 06/06/2024 Hepatitis A Vaccines (1 of 2 - Risk 2-dose series) 02/28/2025 Postponed from 2014 (Patient Refused) Lipid Panel 02/28/2025 02/29/2024 Pneumococcal Vaccine: Pediatrics (0 to 5 Years) and At-Risk Patients (6 to 49) Years) (1 of 2 - PCV) 02/28/2025 Postponed from 2014 (Patient Refused) SDOH Screening 04/07/2025 04/07/2024 Tobacco Screening 06/02/2025 06/02/2024 Depression Screening 06/06/2025 06/06/2024, 06/06/19 25 Pap Smear 11/28/2025 11/28/2022 DTaP/Tdap/Td Vaccines (11 - Td or Tdap) 03/31/2030 03/31/2020, 11/19/2018, 04/09/2017, Additional history exists Zoster Vaccines (1 of 2) 2045 RSV Patients and Patients Aged 60 years or older (1 - 1-dose 75+ series) 2070 Hepatitis B Vaccines Completed 02/12/1996, 1995, 1995 HIB Vaccines Completed 01/27/1997, 02/02, 1995, Additional history exists IPV Vaccines Completed 12/24/2000, 02/02, 1995, Additional history exists HPV Vaccines Completed 01/10/2008, 10/2007, 02/06/2007 Meningococcal Vaccine Aged Out 07/08/2008 No tammie tony eligible based on patient's age to complete this topic HIV Screening Completed 01/25/2022 Hepatitis C Screening Completed 10/26/2022 Influenza Vaccine Completed 07/05/2024, , 04/04/2011, Additional history exists Diabetes: Foot Exam Discontinued Diabetes: Urine Protein Screening Discontinued Eye Exam Discontinued RSV under 20 months Aged Out No longe r eligible based on patient's age to complete this topic Rotavirus Vaccines Aged Out No longer eligible based on patient's age to complete this topic Procedures Procedure Name Priority Date/Time Associated Diagnosis Comments LIPASE Routine 07/16/2024 7:07 AM EST COMPREHENSIVE METABOLIC PANEL Routine 07/16/2024 7:07 AM EST CBC WITH AUTO DIFFERENTIAL Routine 07/16/2024 7:07 AM EST MR ABDOMEN W AND WO CONTRAST Routine 07/06/2024 11:[address] ABDOMEN PELVIS W CONTRAST Routine 07/05/2024 2:[address] ABDOMEN PELVIS W CONTRAST Routine 06/16/2024 4:18 AM EST LIPASE Routine 06/15/2024 11:43 PM EST HEPATIC FUNCTION PANEL Routine 11:43 PM EST COMPREHENSIVE METABOLIC PANEL Routine 06/15/2024 11:43 PM EST CBC WITH AUTO DIFFERENTIAL Routine 06/15/2024 11:43 PM EST HCG, QL, URINE Routine 06/15/2024 11:43 PM EST URINALYSIS WITH REFLEX MICROSCOPIC Routine 06/15/2024 11:42 PM EST URINALYSIS, COMPLETE, WITH REFLEX TO CULTURE Routine 06/06/2024 12:13 PM EST HCG, TOTAL, QN Routine 06/06/2024 12:12 PM EST LIPASE Routine 06/06/2024 12:12 PM EST MAGNESIUM Routine 06/06/2024 12:12 PM EST COMPREHENSIVE METABOLIC PANEL Routine 06/06/2024 12:12 PM EST ETHANOL Routine 06/06/2024 12:12 PM EST AMYLASE Routine 06/06/2024 12:12 PM EST PROTHROMBIN TIME-INR Routine 06/06/2024 12:12 PM EST CBC WITH AUTO DIFFERENTIAL Routine 06/06/2024 12:12 PM EST SARS COV2/INFLUENZA A/B AND RSV RNA QL NAAT Routine 06/06/2024 12:12 PM EST DRUG MONITOR, PANEL 1, SCREEN, URINE Routine 05/09/2024 3:48 AM EST URINALYSIS WITH REFLEX MICROSCOPIC Routine 05/09/2024 3:48 AM EST LACTIC ACID LAB USE ONLY Routine 05/09/2024 2:[address] ABDOMEN PELVIS W CONTRAST Routine 05/09/2024 12:00 AM EST DRUG MONITOR, PANEL 1, SCREEN, URINE Routine 04/17/2024 7:51 AM EST HCG, QL, URINE Routine 04/17/2024 7:51 AM EST URINALYSIS WITH REFLEX MICROSCOPIC Routine 04/17/2024 7:51 AM EST CBC WITH AUTO DIFFERENTIAL Routine 04/17/2024 7:33 AM EST HEMOGLOBIN A1C Routine 02/29/2024 10:45 AM EDT 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) LIPID PANEL, STANDARD Routine 02/29/2024 10:45 AM EDT 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 White Blood Count 6.7 4.8 - 10.8 X10*3/uL [facility] Red Blood Count 5.05 4.20 - 5.50 X10*6/uL [facility] Hemoglobin 12.5 12.0 - 16.0 g/dl [facility] Hematocrit 38.9 37.0 - 47.0 % [facility] Mean Corpuscular Volume 77.0(L) 80.0 - 98.0 fL [facility] Mean Corpuscular Hemoglobin 24.8(L) 27.0 - 33.0 pg [facility] Mean Corpuscular HGB Conc 32.1 31.0 - 35.0 g/dl [facility] Red Cell Distribution Width 14.8 11.0 - 16.0 % [facility] Platelet Count 309 160 - 400 X10*3/uL [facility] Mean Platelet Volume 10.2 9.4 - 12.3 fL [facility] Neutrophils Percent Auto 64.9 45 - 73 % [facility] Imm Gran Pct Auto 0.1 0.0 - 0.4 % [facility] Lymphocytes Percent Auto 28.2 20 - 40 % [facility] Monocytes Percent Auto 5.5 2 - 11 % [facility] Eosinophils Percent Auto 0.7 0 - 4 % [facility] Basophils Percent Auto 0.6 0 - 2 % [facility] NRBC Pct Auto 0.0 0.0 - 0.2 /100WBC [facility] Neutrophils Absolute Auto 4.3 2.0 - 8.3 x10*3/uL [facility] Imm Gran Abs Auto 0.01 0.00 - 0.03 X10*3/uL [facility] Lymphocytes Absolute Auto 1.9 1.2 - 4.9 X10*3/uL [facility] Monocytes Absolute Auto 0.4 0.1 - 1.2 X10*3/uL [facility] Eosinophils Absolute Auto 0.1 0.0 - 0.4 X10*3/uL [facility] Basophils Absolute Auto 0.0 0.0 - 0.2 X10*3/uL [facility] NRBC Abs Auto 0.000 0.0 - 0.012 X10*3/uL [facility] 07/16/2024 7:07 AM EST 07/16/2024 7:12 AM EST us Generic External Data Provider LAB BLOOD ORDERAB LES Final Result [facility] [address] [place] [phone] * (ABNORMAL) Lipase (07/16/2024 7:07 AM EST) Only the most recent of3 resultswithin the time period is included. Lipase 6(L) 8 - 78 U/L [facility] 07/16/2024 7:07 AM EST 07/16/2024 7:12 AM EST us Generic External Data Provider LAB BLOOD ORDERAB LES Final Result [facility] [address] [place] [phone] * (ABNORMAL) Comprehensive Metabolic Panel (07/16/2024 7:07 AM EST) Only the most recent of3 resultswithin the time period is included. Sodium 140 135 - 145 mmol/L [facility] Potassium 3.8 3.3 - 5.1 mmol/L [facility] Chloride 112(H) 96 - 108 mmol/L [facility] Carbon Dioxide 20(L) 22 - 29 mmol/L [facility] Anion Gap 12 12 - 20 [facility] Urea Nitrogen (BUN) 9 9 - 16 mg/dL [facility] Creatinine, Serum 0.68 0.5 - 1.4 mg/dL [facility] Creatinine Clr Calc Pharmacy 106.3 [facility] Comment:Provided height and weight: 162.56 cm,56.1 kg.eGFR (calculated from the MDRD study equation) and eCrCl(calculated from the Cockcroft-Gault equation) are based ondifferent parameters and may not yield comparable results.If eCrCl result is absurd, please check patient'sheight/weight. Estimated Glomerular Filt Rate >60 [facility] Comment:Chronic Kidney Disea se: Estimated GFR < 60 mL/min/1.30g0Ndbbxk Kidney Disease: Estimated GFR < 15 mL/min/1.73m2 Glucose 135(H) 60 - 115 mg/dL [facility] Calcium 8.8 8.4 - 10.2 mg/dL [facility] Bilirubin, Total 0.2 0.0 - 1.0 mg/dL [facility] Aspartate Amino Transferase 21 5 - 31 U/L [facility] Alanine Aminotransferase 26 0 - 31 U/L [facility] Total Protein 7.6 6.5 - 8.0 g/dL [facility] Albumin Level 4.4 3.5 - 5.0 g/dL [facility] Alkaline Phosphatase 159(H) 39 - 117 U/L [facility] 07/16/2024 7:07 AM EST 07/16/2024 7:12 AM EST us Generic External Data Provider LAB BLOOD ORDERAB LES Final Result [facility] [address] [place] [phone] * MR Abdomen w/ and w/o Contrast (07/06/2024 11:32 AM EST) Anatomical Region Laterality Modality Abdomen Magnetic Resonan ce 07/06/2024 11:3 2 AM EST Narrative 07/06/2024 11:34 AM EST ? [facility] ?[address] ?[place] [address] ? Magnetic Resonance Report ? Signed ? Patient: Aguilar,Deepti ?MR#: [id number] ?? 5 ? : 1995 ?Acct:[id number] ? Age/Sex: 28 / F ?ADM Date: 07/05/24 ? Loc: HO.S3 ?372-1 ? Attending Dr: Alexandro Garza MD ? Ordering Physician: Chris Chandler MD ?? Date of Service: 07/06/24 ?? Procedure(s): MR abdomen wo/w con ?? Accession Number(s): [id number] ? cc: Ibeth Lassiter MD; Chris Chandler MD ? CLINICAL HISTORY: Chronic pancreatitis, abnormal CT of pancreas ? MR abdomen with and without gadolinium ? Comparison: None ? Findings: ? The pancreas appears chronically deformed with poorly seen pancreatic neck ?? and absent pancreatic tail. There is a block of remaining pancreatic ?? tissue in the body corresponding to the suspected mass noted on the prior ?? CT report. ?? There is no significant pancreatic ductal dilatation. ?? The patient is status post cholecystectomy with associated mild ?? intrahepatic and extrahepatic biliary ductal dilatation. There is no ?? evidence of choledocholithiasis. ?? The liver is otherwise unremarkable. The rest of the solid organs are ?? within normal limits. ?? No ascites. ?? The visualized bowel is unremarkable. The bones and soft tissues are ?? within normal limits. ?? The lung bases unremarkable. ? IMPRESSION: ?? No definite pancreatic mass. The enhancing area in question on the prior ?? CT represents residual pancreatic tissue in a significantly deformed ?? pancreas either related to necrosis, resection or atrophy in the setting ?? of chronic pancreatitis. The pancreatic tail is absent. ? This document has been electronically signed by: Castro Gomez MD on ?? 07/06/2024 11:32:23 ? Dictated By: ?Castro Gomez MD ? Signed By: ?<Electronically signed by Castro Gomez MD in OV> ? 07/06/24 1133 ? DD/ 1132 ? TD/TT: 07/06/24 1132 ? Business Solution Analyst: ? Procedure Note Donbrendanter, Image - 07/06/2024 [place] [address] Magnetic Resonance Report Signed Patient: Tori Aguilar#: [id number] 5 : 1995Acct:[id number] Age/Sex: 28 / FADM Date: 07/05/24 Loc: .S3 372-[address]: Alexandro Garza MD Ordering Physician: Chris Chandler MD Date of Service: 07/06/24 Procedure(s): MR abdomen wo/w con Accession Number(s): [id number] cc: Ibeth Lassiter MD; Chris Chandler MD CLINICAL HISTORY: Chronic pancreatitis, abnormal CT of pancreas MR abdomen with and without gadolinium Comparison: None Findings: The pancreas appears chronically deformed with poorly seen pancreatic neck and absent pancreatic tail. There is a block of remaining pancreatic tissue in the body corresponding to the suspected mass noted on the prior CT report. There is no significant pancreatic ductal dilatation. The patient is status post cholecystectomy with associated mild intrahepatic and extrahepatic biliary ductal dilatation. There is no evidence of choledocholithiasis. The liver is otherwise unremarkable. The rest of the solid organs are within normal limits. No ascites. The visualized bowel is unremarkable. The bones and soft tissues are within normal limits. The lung bases unremarkable. IMPRESSION: No definite pancreatic mass. The enhancing area in question on the prior CT represents residual pancreatic tissue in a significantly deformed pancreas either related to necrosis, resection or atrophy in the setting of chronic pancreatitis. The pancreatic tail is absent. This document has been electronically signed by: Castro Gomez MD on 07/06/2024 11:32:23 Dictated By: Castro Gomez MD Signed By: <Electronically signed by Castro Gomez MD in OV> 07/06/24 1133 DD/ 1132 TD/TT: 07/06/24 1132 Business Solution Analyst: us [facility] External Provider IMG MRI PROCEDURES Final Result * CT Abdomen Pelvis w/ Contrast (07/05/2024 2:58 AM EST) Only the most recent of3 resultswithin the time period is included. Anatomical Region Laterality Modality Body, Pelvis, Abdomen Computed T omography 07/05/2024 2:58 AM EST Narrative 07/05/2024 2:59 AM EST ? [facility] ?[address] ?[place] [address] ? CT Scan Report ? Signed ? Patient: Aguilar,Deepti ?MR#: [id number] ?? 5 ? : 1995 ?Acct:[id number] ? Age/Sex: 28 / F ?ADM Date: 07/05/24 ? Loc: HO.ED ? Attending Dr: ? Ordering Physician: Katarzyna Hui ?? Date of Service: 07/05/24 ?? Procedure(s): CT abdomen pelvis w IV con ?? Accession Number(s): [id number] ? cc: Katarzyna Hui; Ibeth Lassiter MD ? Report Number: ?? [id number]: Total DLP = ??413.00 mGy-cm ? CLINICAL HISTORY: pain, hx nec. pancreatitis ? CT Abdomen and Pelvis W Contrast ? COMPARISON: CT - CT ABDOMEN PELVIS W IV CON - 07/05/24 01:43 EST ? FINDINGS: ?? Normal liver. ?? Normal spleen. ?? Normal kidneys. ?? Normal adrenal glands. ?? 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 Enhancing mass in the pancreatic body ?? measuring 2.3 x 1.7 cm (series 4, image 167). No evidence of acute ?? pancreatitis. ?? Status post cholecystectomy. No abnormal biliary dilation. ? Air-fluid levels in nondistended small bowel. No mucosal thickening. No ?? evidence of obstruction. ?? Normal appendix. ?? Mild diffuse bladder wall thickening. ?? Unremarkable uterus. ?? No ascites. No pneumoperitoneum. ?? No lymphadenopathy. ?? No acute fracture. ?? No abdominal aortic aneurysm. ? IMPRESSION: ?? Mass in the pancreatic body. Malignancy cannot be excluded. Consider ?? nonemergent enhanced pancreatic MRI if not worked up in the past. ?? Air-fluid levels in nondistended small bowel, which could be due to ?? enteritis or dysmotility. ?? Possible cystitis. ? This document has been electronically signed by: Sacha Mckeon MD on ?? 07/05/2024 02:58:11 ? Dictated By: ?Sacha Mckeon MD ? Signed By: ?<Electronically signed by Sacha Mckeon MD in OV> ?07/05/24 0259 ? DD/ 7 ? TD/TT: 07/05/24257 ? Business Solution Analyst: ? Procedure Note Edmund, Image - 07/05/[address] [place] [address] [address] Scan Report Signed Patient: Tori Aguilar#: [id number] 5 : 1995Acct:[id number] Age/Sex: 28 / FADM Date: 07/05/24 Loc: HO.ED Attending Dr: Ordering Physician: Katarzyna Hui Date of Service: 07/05/24 Procedure(s): CT abdomen pelvis w IV con Accession Number(s): [id number] cc: Katarzyna Hui; Ibeth Lassiter MD Report Number: [id number]: Total DLP = 413.00 mGy-cm CLINICAL HISTORY: pain, hx nec. pancreatitis CT Abdomen and Pelvis W Contrast COMPARISON: CT - CT ABDOMEN PELVIS W IV CON - 07/05/24 01:43 EST FINDINGS: Normal liver. Normal spleen. Normal kidneys. Normal adrenal glands. 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 Enhancing mass in the pancreatic body measuring 2.3 x 1.7 cm (series 4, image 167). No evidence of acute pancreatitis. Status post cholecystectomy. No abnormal biliary dilation. Air-fluid levels in nondistended small bowel. No mucosal thickening. No evidence of obstruction. Normal appendix. Mild diffuse bladder wall thickening. Unremarkable uterus. No ascites. No pneumoperitoneum. No lymphadenopathy. No acute fracture. No abdominal aortic aneurysm. IMPRESSION: Mass in the pancreatic body. Malignancy cannot be excluded. Consider nonemergent enhanced pancreatic MRI if not worked up in the past. Air-fluid levels in nondistended small bowel, which could be due to enteritis or dysmotility. Possible cystitis. This document has been electronically signed by: Sacha Mckeon MD on 07/05/2024 02:58:11 Dictated By: Sacha Mckeon MD Signed By: <Electronically signed by Sacha Mckeon MD in OV> 07/05/24258 DD/ 7 TD/TT: 07/05/24257 Business Solution Analyst: [facility] External Provider IMG CT PROCEDURES Final Result * HCG, Qualitative, Urine (06/15/2024 11:43 PM EST) Only the most recent of2 resultswithin the time period is included. Urine NEGATIVE NEGATIVE [facility] Comment:This test was develo ped to detect early . Falsenegative results may occur after the 5th - 7th week ofpregnancy when using this test method. If clinicallyindicated, consider a serum hCG. 06/15/2024 11:4 3 PM EST 06/15/2024 11:48 PM EST Generic External Data Provider LAB URINE ORDERAB LES Final Result Performing Organization Address [facility] Co de Phone Number [facility] [address] [place] [phone] * Hepatic Function Panel (06/15/2024 11:43 PM EST) Bilirubin, Direct <0.2 0.0 - 0.5 mg/dL [facility] 06/15/2024 11:4 3 PM EST 06/15/2024 11:48 PM EST Generic External Data Provider LAB BLOOD ORDERAB LES Final Result Performing Organization Address [facility] Co de Phone Number [facility] [address] [place] [phone] * (ABNORMAL) Urinalysis w/reflex microscopic (06/15/2024 11:42 PM EST) Only the most recent of3 resultswithin the time period is included. Color Urine Yellow [facility] Appearance Urine Clear [facility] PH 6.5 5.0 - 9.0 [facility] Glucose Urine UA Negative Negative mg/dL [facility] Urine Blood Negative Negative [facility] Specific [place] - Urine >=1.030(H) 1.005 - 1.025 [facility] Urine Protein Negative Neg-Trace mg/dL [facility] Urine Ketones Negative Negative mg/dL [facility] Nitrite Urine Negative Negative [facility] Leukocyte Esterase Urine Negative Negative [facility] 06/15/2024 11:4 2 PM EST 06/15/2024 11:48 PM EST Narrative [facility] - 06/15/2024 11:56 PM EST [id number], Clean Catch us Generic External Data Provider LAB URINE ORDERAB LES Final Result [facility] [address] [place] [phone] * (ABNORMAL) Urinalysis, Complete, with Reflex to Culture (06/06/2024 12:13 PM EST) Color Urine [facility] Appearance Urine Clear [facility] PH 6.0 5.0 - 9.0 [facility] Glucose Urine UA Negative Negative mg/dL [facility] Urine Blood Negative Negative [facility] Specific [place] - Urine >=1.030(H) 1.005 - 1.025 [facility] Urine Protein Trace Neg-Trace mg/dL [facility] Urine Ketones Trace Negative mg/dL [facility] Nitrite Urine Negative Negative [facility] Leukocyte Esterase Urine Trace(A) Negative [facility] RBC Urine 0-2 0 - 2 /HPF [facility] Urine WBC 0-5 0 - 5 /HPF [facility] Urine Squamous Epithelial Cell 3-5 0 - 2 /HPF [facility] CALCIUM OXALATE CRYSTAL, UR Present [facility] Urine Bacteria None Seen None Seen [facility] Hyaline Casts, Urine 0-2 0 - 2 /LPF [facility] 06/06/2024 12:1 3 PM EST 06/06/2024 12:19 PM EST Narrative [facility] - 06/06/2024 12:32 PM EST [id number], Clean Catch Generic External Data Provider LAB URINE ORDERAB LES Final Result Performing Organization Address [facility]/ZIP Co de Phone Number [facility] [address] [place] [phone] * Ethanol (06/06/2024 12:12 PM EST) Pathologist [facility] ETHANOL (MG/DL) IN SER/PLAS <10 mg/dL [facility] Comment:Serum/plasma ethanol results are to be used formedical/treatment purposes only. 06/06/2024 12:1 2 PM EST 06/06/2024 12:19 PM EST Generic External Data Provider LAB BLOOD ORDERAB LES Final Result Performing Organization Address [facility]/ZIP Co de Phone Number [facility] [address] [place] [phone] * (ABNORMAL) SARS-CoV-2 RNA, Influenza A/B, and RSV RNA, Ql NAAT (06/06/2024 12:12 PM EST) Pathologist [facility] Influenza A PCR NEGATIVE Negative [facility] Influenza B PCR NEGATIVE Negative [facility] Resp Syncy Virus RNA Qual PCR NEGATIVE Negative [facility] SARS COV2 PCR POSITIVE(A) Negative [facility] Comment:All test results mus t be correlated with clinical findings.Negative results do not preclude SARS-CoV2, influenza Avirus, influenza B virus and/or RSV infectionand should not be used as the sole basis for treatment orother patient management decisions. Negative results must becombined with clinical observations, patient history, andepidemiological information.This test has not been evaluated for monitoring treatment ofinfection.This test has been authorized by the FDA under an EmergencyUse Authorization (EUA) for use by authorized laboratories.Testing performed on the [employer] GeneXpert utilizingreal-time RT-PCR.All SARS CoV2 and positive influenza A/B results arereported to [facility]. 06/06/2024 12:1 2 PM EST 06/06/2024 12:19 PM EST Generic External Data Provider LAB MICROBIOLOGY - GENERAL ORDERABLES Final Result Performing Organization Address [facility] de Phone Number [facility] [address] [place] [phone] * Prothrombin Time-INR (06/06/2024 12:12 PM EST) Prothrombin Time 11.6 10.9 - 12.4 SEC [facility] [facility] INTERNATIONAL NORM RATIO 1.0 0.9 - 1.1 [facility] Comment:INTERNATIONAL NORMAL IZED RATIO (INR) REFERENCE RANGES Reference RangeFor patients not on anticoagulant therapy: 0.9 - 1.1INR ranges for oral anticoagulanttherapy:For prevention and treatment of venous thrombosis and pulmonary embolism: 2.0 - 3.0For acute myocardial infarction with aspirin therapy: 2.0 - 3.0For acute myocardial infarction without aspirin therapy: 3.0 - 4.0For patients with mechanical prosthetic heart valves: 2.5 - 3.5 06/06/2024 12:1 2 PM EST 06/06/2024 12:19 PM EST Generic External Data Provider LAB BLOOD ORDERAB LES Final Result Performing Organization Address [facility] de Phone Number [facility] [address] [place] [phone] * hCG, Total, Quantitative (06/06/2024 12:12 PM EST) HCG Quantitative <2 mIU/mL [facility] Comment:Weeks post LMP Appro ximate hCG(Last Menstrual Period) Range (mIU/ml)3 - 4 weeks 9 - 1304 - 5 weeks 75 - 2,6005 - 6 weeks 850 - 20,8006 - 7 weeks 4000 - 100,2007 - 12 weeks 11,500 - 289,68616 - 16 weeks 18,300 - 137,22779 - 29 weeks (2nd trimester) 1,400 - 53,38772 - 41 weeks (3rd trimester) 940 - 60,000The Nunez B- hCG assay is used for the early detection ofpregnancy; it cannot be used to diagnose any conditionunrelated to . If a B-hCG level is not supportedby the clinical evidence, results should be confirmed by analternative method (qualitative urine hCG, for example). 06/06/2024 12:1 2 PM EST 06/06/2024 12:19 PM EST Generic External Data Provider LAB BLOOD ORDERAB LES Final Result Performing Organization Address City/[facility]/ZIP Co de Phone Number [facility] [address] [place] [phone] * Magnesium (06/06/2024 12:12 PM EST) Magnesium 2.0 1.6 - 2.6 mg/dL [facility] 06/06/2024 12:1 2 PM EST 06/06/2024 12:19 PM EST Generic External Data Provider LAB BLOOD ORDERAB LES Final Result Performing Organization Address [facility]/ZIP Co de Phone Number [facility] [address] [place] [phone] * Amylase (06/06/2024 12:12 PM EST) Amylase 73 28 - 100 U/L [facility] 06/06/2024 12:1 2 PM EST 06/06/2024 12:19 PM EST us Generic External Data Provider LAB BLOOD ORDERAB LES Final Result [facility] [address] [place] [phone] * (ABNORMAL) Drug Monitoring, Panel 1, Screen, Urine (05/09/2024 3:48 AM EST) Only the most recent of2 resultswithin the time period is included. Opiate Screen Urine POSITIVE(A) Not Detect [facility] Comment:Opiate cut-off is 30 0 ng/mL.Positive results are unconfirmed and should not be used fornon-medical purposes. Barbiturates, Urine Not Detected Not Detect [facility] Comment:Barbiturate cut-off is 200 ng/mL.Positive results are unconfirmed and should not be used fornon-medical purposes. Phencyclidine Screen Urine Not Detected Not Detect [facility] Comment:Phencyclidine cut-of f is 25 ng/mL.Positive results are unconfirmed and should not be used fornon-medical purposes. Amphetamine Screen Urine Not Detected Not Detect [facility] Comment:Amphetamine cut-off is 1000 ng/mL.Positive results are unconfirmed and should not be used fornon-medical purposes. Benzodiazepines Screen Urine Not Detected Not Detect [facility] Comment:Benzodiazepine cut-o ff is 200 ng/mL.Positive results are unconfirmed and should not be used fornon-medical purposes. Cocaine Screen Urine Not Detected Not Detect [facility] Comment:Cocaine cut-off is 3 00 ng/mL.Positive results are unconfirmed and should not be used fornon-medical purposes. Cannabinoid Screen Urine POSITIVE(A) Not Detect [facility] Comment:Cannabinoid cut-off is 50 ng/mL.Positive results are unconfirmed and should not be used fornon-medical purposes. Methadone Screen, Urine Not Detected Not Detect ng/mL [facility] Comment:Methadone cut-off is 300 ng/mL.Positive results are unconfirmed and should not be used fornon-medical purposes. FENTANYL URINE Not Detected Not Detect [facility] Comment:Fentanyl cut-off is 1 ng/mL.Positive results are unconfirmed and should not be used fornon-medical purposes. Oxycodone Urine Screen Not Detected Not Detect ng/mL [facility] Comment:Oxycodone cut-off is 100 ng/mL.Positive results are unconfirmed and should not be used fornon-medical purposes. Buprenorphine Screen Not Detected Not Detect ng/mL [facility] Comment:Buprenorphine cut-of f is 5 ng/mL.Positive results are unconfirmed and should not be used fornon-medical purposes. 05/09/2024 3:48 AM EST 05/09/2024 3:53 AM EST Generic External Data Provider LAB URINE ORDERAB LES Final Result Performing Organization Address [facility] de Phone Number [facility] [address] [place] [phone] * (ABNORMAL) Lactic Acid (05/09/2024 2:42 AM EST) Lactic Acid 2.1(HH) 0.5 - 2.0 mmol/L [facility] Comment:Critical value for t est(s): LACTIC ACID Results called toand read back by: SHARIF Person calling:FERMINate:05/09/24 Time:0310 05/09/2024 2:42 AM EST 05/09/2024 2:46 AM EST Generic External Data Provider LAB BLOOD ORDERAB LES Final Result Performing Organization Address [facility] Co de Phone Number [facility] [address] [place] [phone] * Hemoglobin A1c (02/29/2024 10:45 AM EDT) Hemoglobin A1c 5.3 <6.0 % [facility] Comment:Hemoglobin A1C Refer ence Range Adults: 4.8 - 6.0 % Non diabetic: < 6.0 % Goal: < 7.0 %Additional Action Suggested: > 8.0 %Note: Hemoglobin A1c results are invalid for patients with abnormal amounts of HbF. Blood transfusions may impact the HbA1c concentration in the patient sample. Estimated Average Glucose 105 mg/dL [facility] Comment:eAG = Estimated ave rage glucose which is %A1C expressed asaverage glucose, using the formula of the K8S-PshylmmXcbaotg Glucose study (ADAG), Diabetes Care, Vol.31,#8,Jan. 2007 Blood Venous blood specimen / Unknown 02/29/2024 10:45 AM EDT 02/29/2024 2:07 PM EDT us Ibeth Lassiter MD LAB BLOOD ORDERABLES Final Re sult [facility] [address] [place] [phone] * (ABNORMAL) Lipid Panel, Standard (02/29/2024 10:45 AM EDT) Triglycerides 94 <150 mg/dL [facility] Comment:Desirable Triglyceri de: less than 150 mg/dLBorderline High Triglyceride 150-199 mg/dLHigh Triglyceride: 200-499 mg/dLVery High Triglyceride: greater than or equal to 5OO mg/dL Cholesterol 112 <200 mg/dL [facility] Comment:Desirable Cholestero l: less than 200 mg/dLBorderline High Cholesterol: 200-239 mg/dLHigh Cholesterol: greater than 239 mg/dL LDL Cholesterol Calculated 54 <100 mg/dL [facility] Comment:Desirable LDL: less than 100 mg/dLNear Optimal/Above Optimal LDL: 110- 129 mg/dLBorderline High LDL: 130-159 mg/dLHigh LDL: 160-189 mg/dLVery High LDL: greater than or equal to 190 mg/dL HDL Cholesterol 40(L) >40 mg/dL [facility] Comment:Desirable HDL: great er than 40 mg/dL Note: This HDL assay may give artificially low results in patients with liver disease. Blood Venous blood specimen / Unknown 02/29/2024 10:45 AM EDT 02/29/2024 2:07 PM EDT Ibeth Lassiter MD LAB BLOOD ORDERABLES Final Re sult [facility] [address] [place] [phone] * Image-Guided Pap with Age-Based Screening??with CT/NG,??Trichomonas (11/28/2022 1:22 PM EDT) Comment JoinMe@ Comment: This order for age-based cervical cancer and STI screening follows ACOG guidelines(PB 168, 140, ONA241). See individual assays for performing site location. Clinical Information: None given [facility] LMP: NONE GIVEN [employer] Prev. PAP: NONE GIVEN [employer] Prev. BX: NONE GIVEN [facility] SOURCE: None given [employer] Statement Of Adequacy: [employer] Comment: Satisfactory for evaluation. Endocervical/transformation zone component present. Interpretation/Re sult: Negative for intraepithelial lesion or malignancy. [employer] COMMENT: This Pap test has been evaluated with computer assisted technology. [employer] Electrician Manager: Harvinder [employer] Comment: SXA, CT(ASCP) CT screening location: [address] ??[address] PATHOLOGIST: [employer] Comment: Brady Ortiz M.D. Direct , Board Certified in Anatomic and Clinical Pathology and Cytopathology (electronic signature) Consulting Pathologist [facility] Pathology [address] [place] [address] (Always Message) Que 3D Data Comment: EXPLANATORY NOTE: The Pap is a screening test for cervical cancer. It is not a diagnostic test and is subject to false negative and false positive results. It is most reliable when a satisfactory sample, regularly obtained, is submitted with relevant clinical findings and history, and when the Pap result is evaluated along with historic and current clinical information. Chlamydia trachomatis RNA, TMA, Urogenital NOT DETECTED NOT DETECTED [employer]Me@ Neisseria gonorrhoeae RNA, TMA, Urogenital NOT DETECTED NOT DETECTED [facility] [employer] (Always Message) Que st Diagnostics Green A Comment: The analytical performance characteristics of this assay, when used to test SurePath(TM) specimens have been determined by [employer]. The modifications have not been cleared or approved by the FDA. This assay has been validated pursuant to the CLIA regulations and is used for clinical purposes. For additional information, please refer to https://Levlr.ClassBadges/faq/WFU021 (This link is being provided for information/ educational purposes only.) Trichomonas vaginalis, QL, TMA, PAP Vial NOT DETECTED NOT DETECTED [employer]@ Comment: The analytical performance characteristics of this assay have been determined by [employer]. The modifications have not been cleared or approved by the FDA. This assay has been validated pursuant to the CLIA regulations and is used for clinical purposes. For additional information, please refer to http://Levlr.ClassBadges/ faq/Trichomonastma (This link is being provided for information/ educational purposes only.) Pap Vial 11/28/2022 1:22 PM EDT 11/29/2022 3:01 AM EDT Yuly BARRAGAN LAB CYTOLOGY ORDERABLES F inal Result [facility] [address] [facility], [place] [address] [facility] [place] [employer] [address] [place] [address] * Hepatitis C Antibody with Reflex to HCV, RNA, Quantitative, Real-Time PCR (10/26/2022 9:56 AM EDT) Hepatitis C Antibody NON-REACT CASEY NON-REACT CASEY [employer]@ Index 0.11 <1.00 [employer]@ Comment: HCV antibody was non-reactive. There is no laboratory evidence of HCV infection. In most cases, no further action is required. However, if recent HCV exposure is suspected, a test for HCV RNA (test code 34279) is suggested. For additional information please refer to http://Levlr.ClassBadges/faq/YDS17m9 (This link is being provided for informational/ educational purposes only.) Blood Venous blood specimen / Unknown 10/26/2022 9:56 AM EDT 10/26/2022 9:58 AM EDT Narrative [facility] - 11/02/2022 2:12 PM EDT SPECIALIZED COLLECTION. PATIENT REFERRED TO ALTERNATE SITE. us Ibeth Lassiter MD LAB BLOOD ORDERABLES Final Re sult [facility] [address], [place] [address] [facility] [address] [place] [address] * HIV 1/2 ANTIGEN/ANTIBODY,FOURTH GENERATION W/RFL (01/25/2022 12:04 PM EDT) [facility] HIV-1/2 ANTIGEN AND ANTIBODIES, 4TH GENERATION W/ REFLEX NON-REACT CASEY NON-REACT CASEY [facility] Comment: HIV-1 antigen and HIV-1/HIV-2 antibodies were not detected. There is no laboratory evidence of HIV infection. ?? PLEASE NOTE: This information has been disclosed to you from records whose confidentiality may be protected by state law. ??If your state requires such protection, then the state law prohibits you from making any further disclosure of the information without the specific written consent of the person to whom it pertains, or as otherwise permitted by law. A general authorization for the release of medical or other information is NOT sufficient for this purpose. ? For additional information please refer to http://Levlr.ClassBadges/faq/YGJ036 (This link is being provided for informational/ educational purposes only.) ? The performance of this assay has not been clinically validated in patients less than 2 years old. ?? 01/25/2022 12:0 4 PM EDT us Ibeth Lassiter MD LAB BLOOD ORDERABLES Final Re sult [facility] [address] from Last 3 Months or Most Recently Relevant to Health Maintenance Insurance [employer] C3 Care Teams Home Improvement Advisor Relationship Specialty Start Date End Date Ibeth Lassiter MD [address] [place] [phone] PCP - General Family Medicine 12/16/21
--- OUTSIDE RECORDS SUMMARY | 2024-07-16 13:56 | XMS_ITS | Continuity of Care Document ---
Author Organization [facility] Address [address] [place], [place] [address]i ve [address] [place] [address]- Support Name Relationship Address Phone PETE ACOSTA domestic partner Unknown Unavaila ble OC SANCHEZ Other Unknown Unavailable Encounter [facility] Date(s): 05/14/24 - 06/22/[address] [place], [place] [address] Attending Physician: John Colon DO Encounter Type: Pre Office Visit Allergies, Adverse Reactions, Alerts No Known Allergies [...] EST, 05/25/24 1:58:00 PM EST, REC Powder, [id number], Partial fill upon patientrequest if the prescription [...] Team Personnel Name: Charmaine Miguel RN Position: [facility] RN Member Role: Primary Care Nurse Name: Briseyda Ramsey RN Position: [facility] RN Member Role: Primary Care Nurse Name: Fifi Dickson Position: [facility] RN Member Role: Primary Care Nurse Name: Briseyda Melton RN Position: [facility] RN Member Role: Primary Care Nurse Name: Iam Noble RN Position: [facility] RN Member Role: Primary Care Nurse Name: Ena Obrien RN Position: [facility] ED RN W/OE and Tasks Member Role: Primary Care Nurse Name: Tammie Zamudio RN Position: [facility] RN Member Role: Primary Care Nurse Name: Dai Pham RN Position: [facility] RN Member Role: Primary Care Nurse Name: Yumiko Ontiveros RN Position: [facility] RN Member Role: Primary Care Nurse Name: Alyssa Abdi RN Position: [facility] RN Member Role: Primary Care Nurse Name: Vinicio Carr RN Position: [facility] RN Member Role: Primary Care Nurse Name: Earle Coyne RN Position: [facility] RN Member Role: Primary Care Nurse Name: Saritha Prado RN Position: [facility] RN Member Role: Primary Care Nurse Name: Micaela Abad RN Position: [facility] RN Member Role: Primary Care Nurse Name: Sofia LOPEZ, Sudha Position: [facility] RN Member Role: Primary Care Nurse Name: Mary Fernandes RN Position: [facility] RN Member Role: Primary Care Nurse Name: Marlon Michelle RN Position: [facility] RN Member Role: Primary Care Nurse Name: Noelle Gill RN Position: [facility] RN Member Role: Primary Care Nurse Name: Tiana Galicia RN Position: [facility] RN Member Role: Primary Care Nurse Name: Divya Aguilar RN Position: [facility] RN Member Role: Primary Care Nurse Name: Doreen Doe LPN Position: [facility] RN Member Role: Primary Care Nurse Name: Rosa Rahman RN Position: [facility] RN Member Role: Primary Care Nurse Name: Nelda Martin LPN Position: [facility] RN Member Role: Primary Care Nurse Name: Cory Parker RN Position: [facility] RN Member Role: Primary Care Nurse Care Team Related Persons Name: DANIELOC Name: PETE ACOSTA Insurance Providers Guarantor name: [facility] Health [facility] Information #: 1 Payer: [facility] Member Number: [id number] Policy Number: NA Group Number: NA Health Plan Information #: 2 Payer: RAFITA GARZA Member Number: NA Policy Number: JESUS Group Number: NA
--- OUTSIDE RECORDS SUMMARY | 2024-07-16 13:56 | XMS_ITS | Encounter Summary ---
Author Organization [employer] Address [address] [facility] [address] [place] [address] Care Team Providers Care Keyboard Action Assembler Name Role Phone Ibeth Lassiter MD Primary Care Provider [phone] Reason for Visit * Reason Onset Date Comments Med Refill 11/05/2023 Encounter Details Date Type Department Care Team ([facility] st Contact Info) Description 11/05/2023 Telephone [facility] [address] [place] [address] Ibeth Lassiter MD [address] [place] [address] Med Refill Social History Tobacco Use Types Packs/Day Years [...] encounter Miscellaneous Notes * Telephone Encounter - Nelda Segal LPN - 11/05/2023 11:41 AM EDT Medication pended to PCP. * Telephone Encounter - José Manuel Mckenna - 11/05/2023 11:36 AM EDT TC from pt requesting medication refill. Medications needing refill : hydrOXYzine pamoate (Vistaril) 50 MG capsule To be sent to: [id number] [place] [place] [facility] [address] [place] [address] [facility] documented in this encounter Plan of Treatment Upcoming Encounters Date Type Department Care Team ([facility] st Contact Info) Description 07/24/2024 2:30 PM EST Clinical Support [facility] [address] [place] [address] Anastasiia Ocampo, RN [address] [place] [address] 09/10/2024 11:30 AM EDT Office Visit [facility] [address] [place] [address] Rosalina Mathews MD [address] [place] [address] documented as of this encounter Visit Diagnoses Not on filedocumented in this encounter Additional Health Concerns Assessment Noted Time PHQ-9 Depression Total Score: 14 023 10:26 AM EDT documented as of this encounter Care Teams Keyboard Action Assembler Relationship Specialty Start Date End Date Ibeth Lassiter MD [address] [place] [address] PCP - General Family Medicine 12/16/21 documented as of this encounter
--- OUTSIDE RECORDS SUMMARY | 2024-07-16 13:56 | XMS_ITS | Continuity of Care Document ---
Author Organization [facility] ter Address [address] [place] [id number] Support Name Relationship Address Phone PETE ACOSTA domestic partner Unknown Unavaila OC Camacho Other Unknown Unavailable Encounter [facility] Date(s): 07/12/24 - 07/13/[address] [address]- Encounter Diagnosis Abdominal pain(Final) - 07/12/24 Pancreatitis(Final) - 07/12/24 Discharge Disposition: A-D/C Home Attending Physician: Gregory Schwartz MD Admitting Physician: Fabio Mcdonnell MD Referring Physician: Not on Staff, Referring MD Encounter Type: Disch Obv Allergies, Adverse Reactions, Alerts No Known Allergies Medications bismuth subsalicylate 262 mg oral tablet, chewable 2 tablet = 524 mg, Chew, 4 times a day, PRN for dyspepsia, # 12 tablet, 0 Refills, Maintenance, 07/12/24 2:21:00 PM EST, Chew Tablet, Partial fill upon patient request if the prescription is for a schedule II opioid drug. Start Date: 07/12/24 Status: Ordered Quantity: 12.0 Unit: tablet Repeat number: 1 Creon 36,000 [...] Date: 04/08/24 Status: Ordered Repeat number: 1 mirtazapine 15 mg oral tablet 1 tablet = 15 mg, By Mouth, Daily at bedtime, # 30 tablet, 0 Refills, Maintenance, 07/12/24 2:19:00 PM EST, Tablet, Partial fill upon patient request if the prescription is for a schedule II opioid drug. Start Date: 07/12/24 Status: Ordered Quantity: 30.0 Unit: tablet Repeat number: 1 morphine 15 mg oral tablet, immediate release 1.5 tablet = 22.5 mg, By Mouth, Every 12 hours, 0 Refills Start Date: 05/22/24 Status: Ordered Repeat number: 1 MorPHINE Inj 6 mg, Injection, IV Push Slowly, Every 8 hours, PRN for Pain , Severe, Routine, 07/12/24 3:48:00 PM EST Start Date: 07/12/24 Stop Date: 07/14/24 Status: Discontinued Repeat number: 1 olanzapine 20 mg oral tablet, disintegrating 1 tablet = 20 mg, Sublingual, Daily at bedtime, allow tablet to dissolve on tongue Start Date: 05/12/24 Status: Ordered Repeat number: 1 ondansetron 4 mg oral tablet, disintegrating 1 tablet = 4 mg, By Mouth, Every 8 hours, PRN as needed for nausea/vomiting, 0 Refills, Maintenance, 07/12/24 2:21:00 PM EST, DIS Tablet, Partial fill upon patient request if the prescription is for a schedule II opioid drug. Start Date: 07/12/24 Status: Ordered Repeat number: 1 pantoprazole 40 mg oral delayed release tablet 1 tablet = 40 mg, By Mouth, Daily, # 30 tablet, 0 Refills, Maintenance, 07/13/24 11:46:00 AM EST, EC Tablet, 163, cm, 07/13/24 10:36:00 EST, Height, 52.5, kg, 07/12/24 15:49:00 EST, Dry Weight Start Date: 07/13/24 Status: Ordered Quantity: 30.0 Unit: tablet Repeat number: 1 polyethylene glycol 3350 oral powder for reconstitution = 17 Gm, By Mouth, Daily, dissolve in 4 to 8 oz of beverage, # 238 Gm, 0 Refills, Maintenance, 07/12/24 2:22:00 PM EST, REC Powder, Partial fill upon patient request if the prescription is for a schedule II opioid drug. Start Date: 07/12/24 Status: Ordered Quantity: 238.0 Unit: g Repeat number: 1 pregabalin 100 mg oral capsule 1 capsule [...] Mouth, Every 6 hours, PRN for pain, for 3 days, # 12 tablet, 0 Refills, Acute 07/16/24 11:46:00 AM EST, 07/13/24 11:46:00 AM EST, Tablet, [facility], Partial fill uponpatient request if the prescription is for a schedule II opioid drug., 163, cm, 07/13/24 10:36:00 EST, Height, 52.5, kg, 07/12/24 15:49:00 EST, Dry Weight Start Date: 07/13/24 Stop Date: 07/16/24 Status: Ordered Quantity: 12.0 Unit: tablet Repeat number: 1 Problem List Condition Confirmation Course Effective Dates Status Health St atus Informant Abdominal pain Confirmed Active Hematemesis Confirmed Active Hypokalemia Confirmed Active Results Radiology Reports * Exam Date Time Procedure Performing Provider Status 07/12/24 6:[address] Abd/Pelvis W/ IV Contrast Only Cece Gaspar; Auth (Verified) Notes: (CT Abd/Pelvis W/ IV Contrast Only) Reason For Exam: epigastric pain; hx necrotizing pancreatitis;Other: RESULT: CT Abd/Pelvis W/ IV Contrast Only CT Abd/Pelvis W/ IV Contrast Only INDICATION: Upper abdominal pain with nausea. Patient has history of necrotizing pancreatitis. TECHNIQUE: Spiral CT through the abdomen and pelvis with IV contrast formatted in 3 planes. 100 cc of Isovue 300 was administered intravenously. This study was performed without oral contrast. Weight-based protocol using automatic tube modulation was used to optimize exposure parameters. CTDIvol Body: 11.90 mGy, DLP Body: 648 mGy*cm. COMPARISON: 05/21/2024. FINDINGS: Supervisor Pressing Department View Findings, Lines and Tubes: None. Visualized Chest: Lung bases are clear. No pleural effusion. The heart is normal in size. No pericardial effusion. Diaphragm: Normal. Liver: Diffuse low-attenuation throughout the liver parenchyma consistent with hepatic steatosis. No evidence of mass. Gallbladder: Absent consistent with prior cholecystectomy. Bile ducts: No biliary ductal dilation. Spleen: Normal. Pancreas: Decrease in size in the 0.9 x 0.9 cm cystic lesion at the pancreatic head, now measuring approximately 0.7 x 0.6 cm (image 38 series 201, likely involuting pseudocyst. Adrenal glands: Normal. Kidneys and ureters: No hydronephrosis, stones, or suspicious masses. Bladder: Normal. Reproductive organs: Unremarkable. Stomach, small bowel, and large bowel: Mild edematous wall thickening of the stomach. Mild fluid throughout the proximal small bowel. Colonic diverticulosis with no evidence of acute diverticulitis. Appendix: Normal. Peritoneum and retroperitoneum: No ascites or pneumoperitoneum. No omental or mesenteric lesions. Lymph nodes: No enlarged lymph nodes. Blood vessels: Normal. No aneurysm. No evidence of venous thrombosis. Abdominal and pelvic wall: Unremarkable. Bones: No acute abnormality. IMPRESSION: Mild edematous wall thickening of the stomach as well as mild fluid throughout the proximal small bowel. Findings can be seen in infectious/inflammatory processes such as gastritis and/or enteritis. Correlation with clinical symptoms is recommended. Decrease in size in the previously seen pancreatic head pseudocyst. I have personally reviewed the images and I agree with this report. WSN: [id number] Ordering Physician: Kymberly Knox Dictated By: Lui Shipley MD Dictated Date/Time: 07/12/24 7:40 am Reviewed By: Rashid Rubin MD Signed By: Rashid Rubin MD Signed Date/Time: 07/12/24 7:45 am Transcribed By: MIKI Transcribed Date/Time: 07/12/24 7:39 am Vital Signs Most recent to oldest [Reference Range]: 1 2 3 Height 163 cm (07/13/24 10:36 AM) 163 cm (07/13/24 6:35 AM) 163 cm (07/13/24 3:19 AM) Weight 52.5 kg (07/12/24 3:49 PM) Oxygen Saturation [94-100 %] 99 % (07/13/24 10:36 AM) 100 % (07/13/24 6:35 AM) 100 % (07/13/24 3:19 AM) Pulse Rate [55-90 bpm] 85 bpm (07/13/24 10:36 AM) 77 bpm (07/13/24 6:35 AM) 66 bpm (07/13/24 3:19 AM) Body Mass Index [18.5-24.99 kg/m2] 19.76 kg/m2 (07/12/24 3:49 PM) Blood Pressure [90-138/55-84 mm Hg] 106/65mm Hg (07/13/24 10:36 AM) 119/65mm Hg (07/13/24 6:35 AM) 114/70mm Hg (07/13/24 3:19 AM) Respiratory Rate [16-30 br/min] 17 br/min (07/13/24 10:36 AM) 18 br/min (07/13/24 7:00 AM) 18 br/min (07/13/24 6:48 AM) Temperature [96.8-100.4 DegF] 98.0 DegF (07/13/24 10:36 AM) 97.5 DegF (07/13/24 6:35 AM) 97.4 DegF (07/13/24 3:19 AM) Mode of Delivery (Oxygen) Room air (07/13/24 10:36 AM) Room air (07/13/24 6:35 AM) Room air (07/13/24 3:19 AM) Blood pressure sites Arm, left (07/13/24 10:36 AM) Arm, right (07/13/24 6:35 AM) Arm, right (07/13/24 3:19 AM) Temperature Route Oral (07/13/24 10:36 AM) Oral (07/13/24 6:35 AM) Oral (07/13/24 3:19 AM) Dry Weight 52.5 kg (07/12/24 3:49 PM) Social History Social History Type Response Smoking Status Never (less than 100 in lifetime) entered on: 09/25/23 Sex Sex Representation Female (finding) Admission evaluation note * Malcolm Benitez DO: BORIS Busby MD, Rashid: MODIFY Event Display: Admission Note Authored Date: Patient: ??HILL, CORRINE ? Age:??28 Years?Sex:??Female?:??1995?? Chief Complaint/Reason for Consultation hx pancreatitis. 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 Patient states thatshe??does not drink alcohol frequently following her??pancreatitis and subsequent complications, however last night she did drink??a single shot??of coffee flavored??liquor.?? Soon after??ingestion of this shot,??the patient??began to have??epigastric pain??with??slight radiation into the left upper quadrant.?? Patient took morphine, which she is prescribed??for chronic pancreatitis pain, howeverthis did not help the pain, and so the patient presented to [facility]??emergency depart ment??for further evaluation. ??At [facility], she did not undergo??any radiological studies,??and was??discharged??after being given a dose of morphine.?? She subsequently went home, butthe pains??persisted, and at 4 AM she decided to present to [facility] for further eval uation.? Emergency department course: In the emergency department??the patient was given a total of??12 mg IV morphine, 6 mg ketamine??IV,??and??50 mg fentanyl IV with??adequate??pain control and reduction in pain from??9 out of 10 to 7 out of 10.?? The patient's initial laboratory work was??significant for??elevated alkaline phosphatase of??0.59, which was downtrending??in comparison to??laboratory work??from??earlier??in June.??Additionally, the patient underwent CT??of the abdomen which demonstrated mild edematous wall thickening of the stomach as well as mild fluid throughout the proximal small bowel.?[facility]??crackers and drink fluids without nausea or vomiting the radiology team??read this as a possible??concern for??gastritis/enteritis.?? At time of evaluation,??patient states that??she is not??having nausea, vomiting,??subjective sensation of fever. ??She does e ndorse??chills/rigors.?? She did have a bowel movement this morning, and denies blood in the bowel movement, denies recent??bloody emesis, denies urinary pain,??changes in??urine color,??cough, shortness of breath, chest??pain.?? At time of evaluation she rates her??pain??a 7 out of 10, and??describes that it is located primarily in the epigastric radiation with??mild??radiation to the left upperquadrant. Review of Systems A focused review of systems was completed and is otherwise negative except as mentioned above. Objective Measurements?? Height: 163 cm (07/12/24) Weight: 52.5 kg (07/12/24) Dry Weight: 52.5 kg (07/12/24) Body Mass Index: 19.76 kg/m2 (07/12/24) ? Vital Signs?? Temperature: 97.8 DegF (07/12/24 15:49:00) Temperature Route: Oral (07/12/24 15:49:00) Pulse Rate: 65 bpm (07/12/24 15:49:00) Respiratory Rate: 18 br/min (07/12/24 15:57:00) Systolic Blood Pressure: 102 mm Hg (07/12/24 15:49:00) Diastolic Blood Pressure: 66 mm Hg (07/12/24 15:49:00) Blood pressure sites: Arm, right (07/12/24 15:49:00) Mean Arterial Pressure: 78 mm Hg (07/12/24 15:49:00) Pulse Pressure: 36 mm Hg (07/12/24 15:49:00) Oxygen Saturation: 99 % (07/12/24 15:49:00) Mode of Delivery (Oxygen): Room air (07/12/24 15:49:00) Early Warning Score: 2 (07/12/24 15:57:53) ? Physical Exam Constitutional: Alert, in no distress. Mental Status: Oriented to person, place and time. Head:??Normocephalic. Eyes: Pupils are equal, round Extraocular muscles intact. Ear, Nose and Throat: mucous membranes moist. Respiratory:??Normal breath sounds, no wheezing or rhonchi Cardiovascular: S1 S2 regular. No murmurs, rubs or gallops. No edema. No JVD.?? Grossly euvolemic. Gastrointestinal: Prominent tenderness in the epigastric region,??mild tenderness in the left upperquadrant. ??Abdomen is soft,??nondistended, compressible, with no pain in the??lower quadrants. Neurologic: Cranial nerves II-XII grossly intact. No focal neurological deficits. Musculoskeletal: No cyanosis or clubbing. No gross deformities. Normal range of motion. Psychiatric: Normal mood and affect?? Assessment/Plan Diagnoses Abdominal pain ??(R10.9) Insomnia ??(G47.00) Pancreatitis ??(K85.90) ?? Assessment:??28-year-old female with past medical history of??ethanol use??with ethanol associated??pancreatitis, necrotizing pancreatitis??requiring??IR drainage of pseudocyst,??pancreatitis??associated with ERCP, who??takes??morphine??22.5 mg twice daily??for control of pain related to chronic pancreatitis.??She presented??to the emergency department after??ingesting??a shot of coffee liquor??with epigastric??abdominal pain.??She is admitted to the observation unit for pain control,??and at this time is tolerating food and fluids??without issue. ?? Acute flare of chronic alcoholic pancreatitis (K86.0) Abdominal pain (R10.9) -CT read??suggestive of possible??gastritis versus enteritis, however??clinically??in the setting of??alcohol ingestion, and character of her pain??being consistent with prior episodes of pancreatitis,??and acute flare of chronic alcoholic pancreatitis is most likely.?Do not feel that patient's e ndorsement of alternating??diarrhea and constipation??fits picture of gastroenteritis. -Patient takes??morphine??22.5 mg twice daily??for pain related to chronic??alcoholic pancreatitis. -At this time??patient is euvolemic on examination, no concerns for third spacing -Patient able to tolerate??intake of food and fluids. ?? Plan: -Morphine??6 mg IV??every 4 hours as needed for severe pain -Continue pregabalin??100 mg twice daily??(home medication for chronic pain) -Zofran 4 mg IV every 6 hours as needed for nausea and vomiting -Pancrelipase capsule 2000 units 3 times a day with meals -Encourage oral hydration,??if patient unable to tolerate??adequate fluid intake,??initiate??intravenous??hydration ?? Chronic/stable medical conditions: ?? Anxiety (F41.9) -Continue??Vistaril 50mg every 6 hours as need for anxiety ?? Insomnia (G47.00) -Continue olanzapine 20 mg??nightly -Continue??mirtazapine??15 mg nightly ?? VTE Prophylaxis:??Patient without significant comorbidities,??active.?Prior VTE prophylaxis advisor??VTE prophylaxis is not??indicated. Diet:??regular diet Code status:??Full Code ?? Patient care discussed with Dr. Shashank Benitez, DO PGY1 ? Attending Attestation: I saw and examined independently and reviewed the chart on the day of service. ??I have discussed the case and its management??with the resident as documented in the resident note on the day of service.??I agree with the resident's note and plan as documented. Rashid Bsuby MD. ? Medications Home Medications Bismuth Subsalicylate (bismuth subsalicylate 262 mg oral tablet, chewable)??2 tab(s) 524 Milligram Chew 4 times a day as needed for dyspepsia HydrOXYzine (hydrOXYzine pamoate 50 mg oral capsule)??1 capsule 50 Milligram By Mouth Every 6 hoursas needed as needed for anxiety Mirtazapine (mirtazapine 15 mg oral tablet)??1 tab(s) 15 Milligram By Mouth Daily at bedtime Morphine (morphine 15 mg oral tablet, immediate release)??1.5 tab(s) 22.5 Milligram By Mouth Every 12 hours Olanzapine (olanzapine 20 mg oral tablet, disintegrating)??1 tab(s) 20 Milligram Sublingual Daily at bedtime allow tablet to dissolve on tongue Ondansetron (ondansetron 4 mg oral tablet, disintegrating)??1 tab(s) 4 Milligram By Mouth Every 8 hours as needed as needed for nausea/vomiting Pancrelipase (Creon 36,000 units oral delayed release capsule)??1 capsule By Mouth 3 times a day swallow whole or sprinkle contents over a teaspoonful of applesauce Polyethylene Glycol 3350 (polyethylene glycol 3350 oral powder for reconstitution)??17 gram By Mouth Daily dissolve in 4 to 8 oz of beverage Pregabalin (pregabalin 100 mg oral capsule)??1 capsule 100 Milligram By Mouth 2 times a day Tramadol (traMADol 50 mg oral tablet)??1 tab(s) 50 Milligram By Mouth Every 6 hours as needed for pain ? Inpatient Medications Medications (16) Active SCHEDULED: (5) Mirtazapine 15 mg Tablet (mirtazapine 15 mg oral tablet) ??15 mg, By Mouth, Daily at bedtime NaCl 0.9% Flush 3ml (NaCL 0.9% Flush) ??3 mL, IV Push, Every 8 hours Olanzapine 10 mg OD Tablet (olanzapine 10 mg oral tablet, disintegrating) ??20 mg, Sublingual, Daily at bedtime Pancrelipase 20,000 unit Capsule (Pancrelipase Capsule) ??20,000 units 1 capsule, By Mouth, 3 timesa day with meals Pregabalin 50 mg Capsule (pregabalin 50 mg oral capsule) ??100 mg, By Mouth, 2 times a day CONTINUOUS: (0) PRN: (11) Acetaminophen 325 mg Tablet (Acetaminophen Tablet) ??650 mg, By Mouth, Every 4 hours Dextromethorphan-Guaifenesin 20 mg-200 mg/10 mL Liqu UD (Robitussin DM Liquid) ??10 mL, By Mouth, Every 4 hours Docusate Sodium 100 mg Capsule (Docusate Sodium Capsule) ??100 mg 1 capsule, By Mouth, 2 times a day HydrOXYzine Pamoate 25mg Capsule (hydrOXYzine pamoate 25 mg oral capsule) ??50 mg, By Mouth, Every 6 hours Melatonin 3 mg Tablet (Melatonin Tablet) ??3 mg, By Mouth, Daily at bedtime MorPHINE 2 mg Inj Syringe (MorPHINE Inj) ??6 mg, IV Push Slowly, Every 4 hours NaCl 0.9% Flush 3ml (NaCL 0.9% Flush) ??3 mL, IV Push, Every 8 hours Ondansetron 2mg/mL Inj (2mL Vial) (Zofran Inj) ??4 mg, IV Push, Once Polyethylene Glycol 17 Gm Powder (MiraLax Powder) ??17 Gm 1 pack/packet, By Mouth, Daily Senna Tablet ??8.6 mg 1 tablet, By Mouth, 2 times a day Simethicone 80 mg Chewable Tablet (Simethicone Tablet) ??80 mg, Chew, 3 times a day ? Results Abnormal Labs ?? BLOOD COUNT & DIFF Abs. Imm Gran?0.0 k/mm3 ()?07/12/2024 04:50 Abs. Dubois?0.3 k/mm3 (Low)?07/12/2024 04:50 Abs. NRBC?0.0 k/mm3 ()?07/12/2024 04:50 Hct?34.1 % (Low)?07/12/2024 04:50 Hgb?10.8 Gm/dL (Low)?07/12/2024 04:50 Imm Gran?0.2 % ()?07/12/2024 04:50 MCH?24.6 pg (Low)?07/12/2024 04:50 MCHC?31.7 Gm/dL (Low)?07/12/2024 04:50 MCV?77.7 femtoliters (Low)?07/12/2024 04:50 Nucleated RBC (Automated)?0.0 #/100 WBC'S ()?07/12/2024 04:50 RDW-SD?40.9 femtoliters ()?07/12/2024 04:50 ?? CHEM GENERAL AG Ratio?1.5 ()?07/12/2024 04:50 Alkaline Phosphatase?159 units/L (High)?07/12/2024 04:50 Bicarbonate Level?19 mmol/L (Low)?07/12/2024 04:50 Chloride?111 mmol/L (High)?07/12/2024 04:50 Creatinine-Blood?0.48 mg/dL (Low)?07/12/2024 04:50 Estimated GFR Creatinine?132 ML/MIN/1.73 M2 ()?07/12/2024 04:50 Glucose Level?107 mg/dL (High)?07/12/2024 04:50 Lipase, Serum/Plasma?10 units/L (Low)?07/12/2024 04:50 ?? ENDOCRINE/TUMOR MARKER Blood ?<1 mIU/mL ()?07/12/2024 04:50 ?? HEME OTHER Hold Blue Top?SPECIMEN DISCARDED AFTER 4 HOURS. ()?07/12/2024 04:50 ?? VIROLOGY COVID-19 PCR Result?NEGATIVE ()?07/12/2024 07:55 COVID-19 PCR Specimen Source?[facility] () ?07/12/2024 07:55 Influenza A PCR?NEGATIVE ()?07/12/2024 07:55 Influenza B PCR?NEGATIVE ()?07/12/2024 07:55 RSV PCR?NEGATIVE ()?07/12/2024 07:55 ?? Note: Critical results are displayed in red. ? Urinalysis Est Creatinine Clearance: 144.62 mL/min (15:52) ? EKG study * Event Display: ECG 12-Lead Authored Date: Please click on pdf link to open report * Event Display: ECG 12-Lead Authored Date: Ventricular Rate: 91 BPM Atrial Rate: 91 BPM P-R Interval: 144 ms QRS Duration: 82 ms Q-T Interval: 374 ms QTC Calculation(Bazett): 460 ms P [place]: 71 degrees R [place]: 72 degrees T [place]: 27 degrees Normal sinus rhythm Normal ECG When compared with ECG of 11-May-2024 22:51, Non-specific change in ST segment in Inferior leads T wave inversion less evident in Inferior leads T wave inversion no longer evident in Anterior leads Confirmed by ALEJANDRO REN [facility] ([id number]) on 07/12/2024 10:10:17 AM [place]: [facility] Progress note * Yasemin Baez RN: PERFORM, SIGN, VERIFY Event Display: [facility] Authored Date: Patient: CORRINE [facility]: [id number] Age: 28 years Sex: Female : 1995 Associated Diagnoses: None Author: Sasha GALLEGOS, Yasemin Findings Evaluation Patient AxOx4; denies any dizziness, SOB, cough, or paresthesia in extremities. Patient endorses mild headache at 3/10 and severe epigastric pain at 10/10, radiating to back; and moderate nausea. Pain and headache managed with scheduled Lyrica 100 mg, PRN Tylenol 650 mg, and PRN IV Morphine 6 mg admin at 1935, with some effect. Skin intact; extremities warm and dry; no edema noted. Palpable radial and pedal pulses, bilaterally. Patient afebrile; normotensive. Lung sounds clear; oxygen sats 97% on RA. Abdomen soft; tender to palpation in all quadrants (upper quadrants > vs lower) and in epigastric area; + BS. LBM today (07/12/24). Nausea managed with PRN IV Zofran 4 mg admin at 1935, effects pending. Patient able to tolerate PO fluid and food intake at this point. Patient ambulating independently; voiding in the bathroom. Call [place]atham and personal items in reach. For full assessment details, see CIS. Plan: pain and nausea management; encourage PO intake. Will continue monitoring the patient. . Note * Doreen Doe LPN: PERFORM Event Display: Discharge/Transfer Note Hospital Authored Date: [id number] Nursing Discharge Note Entered On: 07/13/2024 12:11 EST Performed On: 07/13/2024 12:08 EST by Doreen Doe LPN Nursing Discharge Note 2 Discharge Time : 07/13/2024 12:08 EST Discharge Level of Care at Discharge : Home/Chcf/Foster Care Patient Left Unit Via : Wheelchair Patient Accompanied Off Unit with : Responsible adult DC Instructions Provided & Signed by Pt : Yes Patient Understands D/C Instructions : Yes Patient Instructions Discharge Signed : Yes Did Pt have Specialty Bed or Wound Vac : No Doreen Doe LPN - 07/13/2024 12:11 EST * Lana REN, Gregory: PERFORM Event Display: Discharge/Transfer Note Hospital Authored Date: [id number] Patient: ??HILL, CORRINE ? Age:??28 Years?Sex:??Female?:??1995?? Patient Information Discharge Location: [facility] Primary Care Physician:?? Admit Date/Time: 07/12/2024 04:37 Discharge Disposition Discharge Disposition: Home: No Services Discharge Diagnosis Abdominal pain (R10.9) Pancreatitis (K85.90) Abdominal pain (R10.9) Insomnia (G47.00) _ Discharge Medications Bismuth Subsalicylate (bismuth subsalicylate 262 mg oral tablet, chewable)??2 tab(s) 524 Milligram Chew 4 times a day as needed for dyspepsia HydrOXYzine (hydrOXYzine pamoate 50 mg oral capsule)??1 capsule 50 Milligram By Mouth Every 6 hoursas needed as needed for anxiety Mirtazapine (mirtazapine 15 mg oral tablet)??1 tab(s) 15 Milligram By Mouth Daily at bedtime Morphine (morphine 15 mg oral tablet, immediate release)??1.5 tab(s) 22.5 Milligram By Mouth Every 12 hours Olanzapine (olanzapine 20 mg oral tablet, disintegrating)??1 tab(s) 20 Milligram Sublingual Daily at bedtime allow tablet to dissolve on tongue Ondansetron (ondansetron 4 mg oral tablet, disintegrating)??1 tab(s) 4 Milligram By Mouth Every 8 hours as needed as needed for nausea/vomiting Pancrelipase (Creon 36,000 units oral delayed release capsule)??1 capsule By Mouth 3 times a day swallow whole or sprinkle contents over a teaspoonful of applesauce Pantoprazole (pantoprazole 40 mg oral delayed release tablet)??1 tab(s) 40 Milligram By Mouth Daily Polyethylene Glycol 3350 (polyethylene glycol 3350 oral powder for reconstitution)??17 gram By Mouth Daily dissolve in 4 to 8 oz of beverage Pregabalin (pregabalin 100 mg oral capsule)??1 capsule 100 Milligram By Mouth 2 times a day Tramadol (traMADol 50 mg oral tablet)??1 tab(s) 50 Milligram By Mouth Every 6 hours as needed for pain for 3 Days ? Medications Started Tramadol Pantoprazole Allergies Allergies ?(Active and Proposed Allergies Only) NKA? (Severity: Unknown severity, Onset: Unknown) ? PCP Follow-Up/Heads-Up Please follow-up for??gastritis in the setting of alcohol use Future Appointments Sunday 10:45 AM EST ?? With: Kevin Scherer DO Where: [facility] [place] [address]- Status: Pending Objective Assessment and Plan 28-year-old female with past medical history of??ethanol use??with ethanol associated??pancreatitis, necrotizing pancreatitis??requiring??IR drainage of pseudocyst,??pancreatitis??associated with ERCP, who??takes??morphine??22.5 mg twice daily??for control of pain related to chronic pancreatitis.??She presented??to the emergency department after??ingesting??a shot of coffee liquor??with epigastric??abdominal pain.??She is admitted to the observation unit for pain control,??and at this time is tolerating food and fluids??without issue. ?? Chronic pancreatitis (K86.0) Abdominal pain (R10.9) -CT read??suggestive of possible??gastritis versus enteritis, however??clinically??in the setting of??alcohol ingestion, this is likely alcoholic gastritis.?She does not have elevation in lipase or CT findings to make the diagnosis of acute pancreatitis -Patient takes??morphine??22.5 mg twice daily??for pain related to chronic??alcoholic pancreatitis. -At this time??patient is euvolemic on examination, no concerns for third spacing -Patient able to tolerate??intake of food and fluids. ?? Plan: -Started??on pantoprazole 40 mg daily given she??endorses daily GERD symptoms, advised dietary modifications -Pain controlled, transitioned to home regimen, also added tramadol prn for??a few days -PCP and GI follow up after discharge. ?? Chronic/stable medical conditions: ?? Anxiety (F41.9) -Continue??Vistaril 50mg every 6 hours as need for anxiety ?? Insomnia (G47.00) -Continue olanzapine 20 mg??nightly -Continue??mirtazapine??15 mg nightly ? Vital Signs?? Temperature: 98 DegF (07/13/24 10:36:00) Temperature Route: Oral (07/13/24 10:36:00) Pulse Rate: 85 bpm (07/13/24 10:36:00) Respiratory Rate: 17 br/min (07/13/24 10:36:00) Systolic Blood Pressure: 106 mm Hg (07/13/24 10:36:00) Diastolic Blood Pressure: 65 mm Hg (07/13/24 10:36:00) Blood pressure sites: Arm, left (07/13/24 10:36:00) Mean Arterial Pressure: 79 mm Hg (07/13/24 10:36:00) Pulse Pressure: 41 mm Hg (07/13/24 10:36:00) Oxygen Saturation: 99 % (07/13/24 10:36:00) Mode of Delivery (Oxygen): Room air (07/13/24 10:36:00) Early Warning Score: 0 (07/13/24 10:36:31) ? Mobility & Ambulation Level Mobility & Ambulation Level?? No qualifying data available. ?? Therapeutic Activity Therapeutic Activities/Mobility/Balance?? No qualifying data available. ?? . Physical Exam Constitutional: Alert, in no distress. Mental Status: Oriented to person, place and time. Head: Normocephalic. Eyes: Pupils are equal, round and reactive to light. Extraocular muscles intact. Ear, Nose and Throat: Oropharynx clear, mucous membranes moist. Ears and nose without masses, lesions or deformities. Trachea midline. Neck: Supple, Full range of motion. Respiratory: Clear to auscultation. No wheezing, rales or rhonchi. Cardiovascular: S1 S2 regular. No murmurs, rubs or gallops. Gastrointestinal: Abdomen soft, epigastric tenderness, non-distended. Normal bowel sounds. No rebound or guarding. No pulsatile mass. No hepatosplenomegaly. Genitourinary: No costovertebral angle tenderness. Neurologic: Cranial nerves II-XII grossly intact. No focal neurological deficits. Flexor plantar response. Moves all extremities spontaneously. Sensation intact bilaterally. Skin: No rashes or lesions. No petechiae or purpura.?? Musculoskeletal: No cyanosis or clubbing. No gross deformities. Normal range of motion. Heme/Lymphatics/Immun: Palpation of neck reveals no swelling or tenderness of neck nodes. Palpationof groin reveals no swelling or tenderness of groin nodes. Psychiatric: Normal mood and affect Pending Results Add On Lab Order ordered on 07/12/2024 Beta HCG Serum (Females Only) ordered on 07/12/2024 Patient Instructions Make an appointment to follow-up with your primary care physician after discharge Take pantoprazole as prescribed Follow-up with your bow maker machine tender as already scheduled Take pain medication as prescribed Post Discharge Care Discharge ?07/13/24 11:47:00 EST ?Order Comment:?? Discharge Prescriptions ?ePrescribed, 07/13/24 11:47:00 EST ?Order Comment:?? Home Health Face to Face ^HomeHealthFTF Results Discharge Labs BLOOD COUNT & DIFF WBC 4.2 k/mm3 ()?? 07/13/2024 01:42 RBC 4.20 m/mm3 ()?? 07/13/2024 01:42 Hgb 10.3 Gm/dL (Low)?? 07/13/2024 01:42 Hct 32.9 % (Low)?? 07/13/2024 01:42 MCV 78.3 femtoliters (Low)?? 07/13/2024 01:42 MCH 24.5 pg (Low)?? 07/13/2024 01:42 MCHC 31.3 Gm/dL (Low)?? 07/13/2024 01:42 Platelet Count 196 k/mm3 ()?? 07/13/2024 01:42 RDW-SD 42.3 femtoliters ()?? 07/13/2024 01:42 MPV 11.0 femtoliters ()?? 07/13/2024 01:42 Nucleated RBC (Automated) 0.0 #/100 WBC'S ()?? 07/13/2024 01:42 Abs. NRBC 0.0 k/mm3 ()?? 07/13/2024 01:42 Abs. Neut 2.8 k/mm3 ()?? 07/12/2024 04:50 Abs. Lymph 1.6 k/mm3 ()?? 07/12/2024 04:50 Abs. Dubois 0.3 k/mm3 (Low)?? 07/12/2024 04:50 Abs. Eo 0.0 k/mm3 ()?? 07/12/2024 04:50 Abs. Baso 0.0 k/mm3 ()?? 07/12/2024 04:50 Neut % 58.2 % ()?? 07/12/2024 04:50 Lymph % 34.7 % ()?? 07/12/2024 04:50 Dubois % 5.5 % ()?? 07/12/2024 04:50 Eos % 0.8 % ()?? 07/12/2024 04:50 Baso % 0.6 % ()?? 07/12/2024 04:50 Imm Gran 0.2 % ()?? 07/12/2024 04:50 Abs. Imm Gran 0.0 k/mm3 ()?? 07/12/2024 04:50 ?? CHEM GENERAL Sodium 138 mmol/L ()?? 07/13/2024 01:42 Potassium 3.9 mmol/L ()?? 07/13/2024 01:42 Chloride 109 mmol/L (High)?? 07/13/2024 01:42 Bicarbonate Level 20 mmol/L (Low)?? 07/13/2024 01:42 Anion Gap 9 mmol/L ()?? 07/13/2024 01:42 Glucose Level 86 mg/dL ()?? 07/13/2024 01:42 BUN 8 mg/dL ()?? 07/13/2024 01:42 Creatinine-Blood 0.54 mg/dL ()?? 07/13/2024 01:42 Estimated GFR Creatinine 129 ML/MIN/1.73 M2 ()?? 07/13/2024 01:42 Calcium 8.3 mg/dL (Low)?? 07/13/2024 01:42 Protein, Total 6.0 Gm/dL (Low)?? 07/13/2024 01:42 Albumin 3.7 Gm/dL ()?? 07/13/2024 01:42 AG Ratio 1.6 ()?? 07/13/2024 01:42 Alkaline Phosphatase 143 units/L (High)?? 07/13/2024 01:42 Lipase, Serum/Plasma 10 units/L (Low)?? 07/12/2024 04:50 AST (SGOT) 18 units/L ()?? 07/13/2024 01:42 ALT (SGPT) 24 units/L ()?? 07/13/2024 01:42 Bilirubin, Total 0.2 mg/dL ()?? 07/13/2024 01:42 Lactate 1.3 mmol/L ()?? 07/12/2024 04:50 ? ENDOCRINE/TUMOR MARKER Blood <1 mIU/mL ()?? 07/12/2024 04:50 ? HEME OTHER Hold Blue Top SPECIMEN DISCARDED AFTER 4 HOURS. ()?? 07/12/2024 04:50 ? URINE OTHER Est Creatinine Clearance 128.55 mL/min ()?? 07/13/2024 03:13 ? VIROLOGY Influenza A PCR NEGATIVE ()?? 07/12/2024 07:55 Influenza B PCR NEGATIVE ()?? 07/12/2024 07:55 RSV PCR NEGATIVE ()?? 07/12/2024 07:55 COVID-19 PCR Specimen Source NASAL ()?? 07/12/2024 07:55 COVID-19 PCR Result NEGATIVE ()?? 07/12/2024 07:55 ? Blood Glucose Trend Glucose Level: 86 mg/dL (07/13/24 01:42:00) ? Microbiology ?? COVID-19, RSV, and Flu A/B, Rapid PCR?? Completed?? Source: Nasal Body Site: Nose Collected Dt/Tm: 07/12/2024 07:55 Last Updated Dt/Tm: 07/12/2024 09:24 ? 40 minutes spent on discharge * Doreen Doe LPN: PERFORM Event Display: Patient Education/Instruction Authored Date: [id number] Inpatient Adult Discharge Instructions. [address] [address] Name: CORRINE HILL : 1995?? Visit: 07/12/2024 04:37?? Current Date: 07/13/2024 11:56 ?? Account: [id number]?? Inpatient Adult Discharge Instructions We would like [...] and their families. Surveys are administered by [employer] ?? If further treatment with your primary care physician or another doctor is recommended, it is important for you to keep the appointment. Call your primary care physician or return to the Emergency Department immediately if your condition worsens, fails to improve, or new symptoms develop. If you need to find a doctor, you can call [facility] [employer] for a referral at [phone] or toll free at [phone]) or log in to [email or web address].. ?? [facility], in keeping with [facility] guidance, no longer requires face masks [...] a health care rafa of your choosing. [employer] is a website that allows you to securely view your medical information including your hospital discharge summary, office visit summaries, medications and follow-up visits. You can also request appointments, renew medications, and request access to your medical information using a health care rafa of your choosing, or just ask a question. You can enroll at [email or web address] or register during your next office visit. You have been discharged from [facility], Patient Care Unit: D3B??. If you have any questions regarding these instructions, including results of studies pending, afteryou leave, please call us and we will be happy to assist you 25/12. [facility] Your Care Team Attending Physician Gregory Schwartz MD?? Consulting Providers Gregory Schwartz MD?? Discharging Providers Gregory Schwartz MD Reason for Your Visit hx pancreatitis. upper abd pain, +nausea, denies v/d?? Your Diagnosis Abdominal pain Insomnia Tests Performed Below is a partial list of the tests performed during your hospitalization. You may have had other tests and procedures not included in this list. Please discuss all test results with your provider. CBC CBC w/ Differential Comprehensive Metabolic Panel COVID-19, RSV, and Flu A/B, Rapid PCR Hold Blue Top Tube Lactic Acid Level Lipase BLOOD QUANTITATIVE CT Abd/Pelvis W/ IV Contrast Only Add On Lab Order?? Beta HCG Serum (Females Only) ( BLOOD QUANTITATIVE)?? CBC?? CBC w/ Differential?? COVID-19, RSV, and Flu A/B, Rapid PCR?? CT Abd/Pelvis W/ IV Contrast Only?? Comprehensive Metabolic Panel?? Hold Blue Top Tube?? Lactic Acid Level?? Lipase?? Primary Care Provider [id number]?? Advance Directive Health Care Proxy on File Yes - Health Care Proxy Discharge Vitals Temperature: 98 DegF Height: 163 cm Pulse Rate: 85 bpm Weight: 52.5 kg Respiratory Rate: 17 br/min Body Mass Index: 19.76 kg/m2 Systolic Blood Pressure: 106 mm Hg Body surface area: 1.54 Diastolic Blood Pressure: 65 mm Hg ?? Oxygen Saturation: 99 % ?? Studies Pending All studies ordered during this hospital stay have been completed unless listed below. Please discuss all pending results with your provider listed above in these instructions. ?? Add On Lab Order?? Beta HCG Serum (Females Only) ( Serum Quantitative)?? What to do next Instructions From Your Doctor Make an appointment to follow-up with your primary care physician after discharge Take pantoprazole as prescribed Follow-up with your bow maker machine tender as already scheduled Take pain medication as prescribed ?? Orders? 07/13/24 11:47:00 EST?? Prescriptions??, ??07/13/24 11:47:00 EST?? Scheduled Follow-Up Appointments Valdemar Mar. 7, 2025 10:45 AM EST ?? With: Kevin Scherer DO Where: [facility] [address] [place] [address]- Status: Pending Discharge Medications CORRINE HILL :1995 Visit Date:07/12/2024 Medications: Please continue your medications until treatment is completed or stopped by your provider. Medications not listed below should be discontinued. Discuss any questions related to medications with your provider. What How Much When Instructions Next Dose Changed Pantoprazole (pantoprazole 40 mg oral delayed release tablet) 1 tab(s) Oral Daily Pickup at [facility] 3 Changed Tramadol (traMADol 50 mg oral tablet) 1 tab(s) Oral Every 6 hours as needed for for pain Duration: 3 Days Pickup at [facility] 3 follow as prescribe Unchanged Bismuth Subsalicylate (bismuth subsalicylate 262 mg oral tablet, chewable) 2 tab(s) Chew 4 times a day as needed for for dyspepsia as needed follow as prescribe Unchanged HydrOXYzine (hydrOXYzine pamoate 50 mg oral capsule) 1 capsule Oral Every 6 hours as needed for as needed for anxiety as needed follow as prescribe Unchanged Mirtazapine (mirtazapine 15 mg oral tablet) 1 tab(s) Oral Daily at Bedtime 07/13/24 bedtime Unchanged Morphine (morphine 15 mg oral tablet, immediate release) 1.5 tab(s) Oral Every 12 hours follow as prescribe Unchanged Olanzapine (olanzapine 20 mg oral tablet, disintegrating) 1 tab(s) Sublingual Daily at Bedtime allow tablet to dissolve on tongue ?? 07/13/24 bedtime Unchanged Ondansetron (ondansetron 4 mg oral tablet, disintegrating) 1 tab(s) Oral Every 8 hours as needed for as needed for nausea/vomiting as needed follow as prescribe Unchanged Pancrelipase (Creon 36,000 units oral delayed release capsule) 1 capsule Oral 3 times a day swallow whole or sprinkle contents over a teaspoonful of applesauce ?? 07/13/24 follow as prescribe Unchanged Polyethylene Glycol 3350 (polyethylene glycol 3350 oral powder for reconstitution) 17 gram Oral Daily dissolve in 4 to 8 oz of beverage ?? 07/14/24 Unchanged Pregabalin (pregabalin 100 mg oral capsule) 1 capsule Oral Twice a day 07/13/24 follow as prescribe Pharmacy Information [facility] 3: [address], [place] [id number] [phone] Prescription Given During Visit Pantoprazole (pantoprazole 40 mg oral delayed release tablet) - 1 tablet = 40 mg, By Mouth, Daily, # 30 tablet, 0 Refills, [facility], [address] [place] [phone]?? Tramadol (traMADol 50 mg oral tablet) - 1 tablet = 50 mg, By Mouth, Every 6 hours, # 12 tablet, 0 Refills, [facility], [address] [place] [address] [phone]?? Laboratory Results Below is a partial list of the most recent Laboratory test results done prior to this discharge. You may have had other tests and procedures not included in this list. Please discuss all test resultswith your provider. Est Creatinine Clearance - 128.55 mL/min (07/13/2024) CBC (07/13/2024) ???WBC - 4.2 k/mm3???RBC - 4.20 m/mm3???Hgb - 10.3 Gm/dL???Hct - 32.9 %???MCV - 78.3 femtoliters???MCH - 24.5 pg???MCHC - 31.3 Gm/dL???Platelet Count - 196 k/mm3???RDW-SD - 42.3 femtoliters???MPV - 11.0 femtoliters???Nucleated RBC (Automated) - 0.0 #/100 WBC'S???Abs. NRBC - 0.0 k/mm3 CBC w/ Differential (07/12/2024) ???WBC - 4.7 k/mm3???RBC - 4.39 m/mm3???Hgb - 10.8 Gm/dL???Hct - 34.1 %???MCV - 77.7 femtoliters???MCH - 24.6 pg???MCHC - 31.7 Gm/dL???Platelet Count - 219 k/mm3???RDW-SD - 40.9 femtoliters???MPV - 10.6 femtoliters???Nucleated RBC (Automated) - 0.0 #/100 WBC'S???Abs. NRBC - 0.0 k/mm3???Abs. Neut - 2.8 k/mm3???Abs. Lymph - 1.6 k/mm3???Abs. Dubois - 0.3 k/mm3???Abs. Eo - 0.0 k/mm3???Abs. Baso - 0.0 k/mm3???Neut % - 58.2 %???Lymph % - 34.7 %???Dubois % - 5.5 %???Eos % - 0.8 %???Baso % - 0.6 %???Imm Gran - 0.2 %???Abs. Imm Gran - 0.0 k/mm3 Comprehensive Metabolic Panel (07/13/2024) ???Sodium - 138 mmol/L???Potassium - 3.9 mmol/L???Chloride - 109 mmol/L???Bicarbonate Level - 20 mmol/L???Anion Gap - 9 mmol/L???Glucose Level - 86 mg/dL???BUN - 8 mg/dL???Creatinine-Blood - 0.54 mg/dL???Estimated GFR Creatinine - 129 ML/MIN/1.73 M2???Calcium - 8.3 mg/dL???Protein, Total - 6.0 Gm/dL???Albumin - 3.7 Gm/dL???AG Ratio - 1.6???Alkaline Phosphatase - 143 units/L???AST (SGOT) - 18 units/L???ALT (SGPT) - 24 units/L???Bilirubin, Total - 0.2 mg/dL COVID-19, RSV, and Flu A/B, Rapid PCR (07/12/2024) ???Influenza A PCR - NEGATIVE???Influenza B PCR - NEGATIVE???RSV PCR - NEGATIVE???COVID-19 PCR Specimen Source - NASAL???COVID-19 PCR Result - NEGATIVE Hold Blue Top Tube (07/12/2024) ???Hold Blue Top - SPECIMEN DISCARDED AFTER 4 HOURS. Lactic Acid Level (07/12/2024) ???Lactate - 1.3 mmol/L Lipase (07/12/2024) ???Lipase, Serum/Plasma - 10 units/L BLOOD QUANTITATIVE (07/12/2024) ? ?Blood - <1 mIU/mL You will be contacted within 72 hours with your results. Allergies (NKA means No Known Allergies) NKA Problems Active Problems??(3) Abdominal pain?? Hematemesis?? Hypokalemia?? Education Materials Below is the list of Educational Leaflet Providered with your Discharge Instructions. Valuables and Belongings I fully understand and agree that [facility] accepts no responsibility for all my [...] to send valuables and belongings home. ?? No Valuables/Belongings: No valuables/belongings present Review of Valuable and Belonging List: With patient Date for Pt to Sign Valuables/Belongings: 07/12/24 12:49:00 ?? Other Discharge Information ? Pulmonary Rehab [...] are strongly encouraged to quit. Please call [facility] [employer] Link at [phone] or [phone] ([phone]) or log in to [email or web address] for referrals to smoking cessation programs. ?? 780 Suicide & Crisis Lifeline is available 25/12 if you or someone you know needs to find a reason to keep living. By calling 496 you'll be connected to a skilled, trained counselor at a crisis center in your area. INPATIENT DISCHARGE INSTRUCTIONS SIGNATURE PAGE CORRINE HILL Location:[facility] Registration Date and Time:07/12/2024 04:37 EST Attending Physician: Lana REN, Juarezbetty, I CORRINE HILL, have received the above patient education materials/instructions and have verbalized understanding. If ambulance or transport services are being used I further acknowledge being given a choice of service. ?? If you need to contact me, please call me at this number: . Patient/Fleet Administrative Assistant Name: Patient/Fleet Administrative Assistant Signature: Relationship to Patient: Witness Name/Signature: Date: [...] Care Nurse Name: Iam Noble RN Position: S RN Member Role: Primary Care Nurse Name: Ena Obrien RN Position: [facility] RAFITA RN W/OE and Tasks Member Role: Primary Care Nurse Name: Tammie Zamudio RN Position: [facility] RN Member Role: Primary Care Nurse Name: Dai Pham RN Position: [facility] RN Member Role: Primary Care Nurse Name: Yumiko Ontiveros RN Position: [facility] RN Member Role: Primary Care Nurse Name: Alyssa Abdi RN Position: [facility] RN Member Role: Primary Care Nurse Name: Vinicio Carr RN Position: [facility] RN Member Role: Primary Care Nurse Name: Earle Coyne RN Position: S RN Member Role: Primary Care Nurse Name: Saritha Prado RN Position: [facility] RN Member Role: Primary Care Nurse Name: Micaela Abad RN Position: S RN Member Role: Primary Care Nurse Name: Sudha Black LPN Position: S RN Member Role: Primary Care Nurse Name: Mary Fernandes RN Position: [facility] RN Member Role: Primary Care Nurse Name: Marlon Michelle RN Position: [facility] RN Member Role: Primary Care Nurse Name: Noelle Gill RN Position: [facility] RN Member Role: Primary Care Nurse Name: Tiana Galicia RN Position: S RN Member Role: Primary Care Nurse Name: Divya Aguilar RN Position: [facility] RN Member Role: Primary Care Nurse Name: Doreen Doe LPN Position: [facility] RN Member Role: Primary Care Nurse Name: Rosa Rahman RN Position: [facility] RN Member Role: Primary Care Nurse Name: Nelda Martin LPN Position: [facility] RN Member Role: Primary Care Nurse Name: Cory Parker RN Position: [facility] RN Member Role: Primary Care Nurse Care Team Related Persons Name: OC SANCHEZ Name: PETE ACOSTA Insurance Providers Guarantor name: [employer] Information #: 1 Payer: [employer] Member Number: [id number] Policy Number: NA Group Number: NA Health Plan Information #: 2 Payer: [employer] Member Number: [id number] Policy Number: NA Group Number: NA
--- OUTSIDE RECORDS SUMMARY | 2024-07-16 13:56 | XMS_ITS | Encounter Summary ---
Author Organization [employer] Address [address] [place] [address] Care Team Providers Care Hr Leader Name Role Phone Ibeth Lassiter MD Primary Care Provider [phone] Reason for Visit * Reason Comments Transition Of Care (Tcm) Encounter Details Date Type Department Care Team ([facility] st Contact Info) Description 06/13/2024 Patient Outreach [facility] [address] [place] [address] Ibeth Lassiter MD [address] [place] [address] Transition Of Care (Tcm) Social History Tobacco [...] Progress Notes * Danis Forte RN - 06/13/2024 9:28 AM EST 06/13/24 0930 Hospital Discharges and Admission for [facility] Type of Visit Emergency Department Date of Admission/Visit 06/12/24 (3:10 pm) Date of Discharge 06/12/24 (3:42 pm) Facility [facility] Diagnosis Abd pain Disposition Left Without Being Seen * Kandis Martínez RN - 06/13/2024 9:28 AM EST Transition of Care Note Deepti is going through a recent transition of care. Hospital Discharges and Admission for [facility] Type of Visit: Emergency Department Date of Admission/Visit: 06/12/24 (3:10 pm) Date of Discharge: 06/12/24 (3:42 pm) Facility: [facility] Diagnosis: Abd pain Disposition: Left Without Being Seen Follow-Up Actions Follow-Up Needed: Provider appointment Follow-Up Outcome: Spoke to Patient Initial Contact Date: 06/16/24 The full discharge summary is in progress via Medical Records request. Recent Visits Date Type Provider Dept 06/02/24 Office Visit Ibeth Lassiter MD [facility] 02/29/24 Office Visit Ibeth Lassiter MD [facility] 02/14/24 Office Visit Ibeth Lassiter MD [facility] 11/08/23 Office Visit Ibeth Lassiter MD [facility] 10/25/23 Office Visit Ibeth Lassiter MD [facility] 09/24/23 Office Visit Ibeht Lassiter MD [facility] 09/18/23 Office Visit Zara Ng MD [facility] 03/30/23 Office Visit Ibeth Lassiter MD [facility] 02/28/23 Office Visit Ibeth Lassiter MD [facility] Showing recent visits within past 540 days with a meds authorizing provider and meeting all other requirements Future Appointments Date Type Provider Dept 06/19/24 Appointment Solis Lennon MD [facility] Showing future appointments within next 150 days with a meds authorizing provider and meeting all other requirements documented in this encounter Miscellaneous Notes * Significant Event - Danis Forte RN - 06/13/2024 9:31 AM EST 06/13/24 0930 Hospital Discharges and Admission for [facility] Type of Visit Emergency Department Date of Admission/Visit 06/12/24 (3:10 pm) Date of Discharge 06/12/24 (3:42 pm) Facility [facility] Diagnosis Abd pain Disposition Left Without Being Seen documented in this encounter Plan of Treatment Upcoming Encounters Date Type Department Care Team (Late st Contact Info) Description 07/24/2024 2:30 PM EST Clinical Support [facility] [address] [place] [address] Anastasiia Ocampo, RN [address] [place] [address] 09/10/2024 11:30 AM EDT Office Visit [facility] [address] [place] [address] Rosalina Mathews MD [address] [place] [address] documented as of this encounter Visit Diagnoses Not on filedocumented in this encounter Additional Health Concerns Assessment Noted Time PHQ-9 Depression Total Score: 025 10:04 AM EST documented as of this encounter Care Teams Hr Leader Relationship Specialty Start Date End Date Ibeth Lassiter MD [address] [place] [id number] PCP - General Family Medicine 12/16/21 documented as of this encounter
--- OUTSIDE RECORDS SUMMARY | 2024-07-16 13:56 | XMS_ITS | Continuity of Care Document ---
Author Organization [facility] Address [address] [place] [address]- Support Name Relationship Address Phone PETE ACOSTA domestic partner Unknown Unavaila OC Camacho Other Unknown Unavailable Encounter [facility] Date(s): 05/23/24 - 06/22/24 [facility] [address] [place] [id number]- Encounter Type: Triage Allergies, Adverse Reactions, Alerts [...] EST, 05/25/24 1:58:00 PM EST, REC Powder, [id number], Partial fill upon patientrequest if the prescription [...] Team Personnel Name: Charmaine Miguel RN Position: [facility] RN Member Role: Primary Care Nurse Name: Briseyda Ramsey RN Position: S RN Member Role: Primary Care Nurse Name: Fifi Dickson Position: S RN Member Role: Primary Care Nurse Name: Briseyda Melton RN Position: [facility] RN Member Role: Primary Care Nurse Name: Aide RNIam Position: [facility] RN Member Role: Primary Care Nurse Name: Ena Obrien RN Position: [facility] ED RN W/OE and Tasks Member Role: Primary Care Nurse Name: Tammie Zamudio RN Position: [facility] RN Member Role: Primary Care Nurse Name: Dai Pham RN Position: [facility] RN Member Role: Primary Care Nurse Name: Yumiko Ontiveros RN Position: [facility] RN Member Role: Primary Care Nurse Name: Alyssa Abdi RN Position: [facility] RN Member Role: Primary Care Nurse Name: Vinicio Carr RN Position: [facility] RN Member Role: Primary Care Nurse Name: Earle Coyne RN Position: [facility] RN Member Role: Primary Care Nurse Name: Sartiha Prado RN Position: [facility] RN Member Role: Primary Care Nurse Name: Micaela Abad RN Position: [facility] RN Member Role: Primary Care Nurse Name: Sofia LOPEZ, Sudha Position: [facility] RN Member Role: Primary Care Nurse Name: Mary Fernandes RN Position: [facility] RN Member Role: Primary Care Nurse Name: Marlon Michelle RN Position: [facility] RN Member Role: Primary Care Nurse Name: Noelle Gill RN Position: [facility] RN Member Role: Primary Care Nurse Name: Tiana Galicia RN Position: [facility] RN Member Role: Primary Care Nurse Name: Divya Aguilar RN Position: [facility] RN Member Role: Primary Care Nurse Name: Doreen Doe LPN Position: [facility] RN Member Role: Primary Care Nurse Name: Rosa Rahman RN Position: [facility] RN Member Role: Primary Care Nurse Name: Nelda Martin LPN Position: [facility] RN Member Role: Primary Care Nurse Name: Cory Parker RN Position: [facility] RN Member Role: Primary Care Nurse Care Team Related Persons Name: OC SANCHEZ Name: PETE ACOSTA Insurance Providers Guarantor name: [facility] Information #: 1 Payer: [employer] Member Number: NA Policy Number: NA Group Number: NA
--- OUTSIDE RECORDS SUMMARY | 2024-07-16 13:56 | XMS_ITS | Encounter Summary ---
Author Organization [employer] Address [address] [facility] [address] [place] [address] Care Team Providers Care Senior Software Analyst Name Role Phone Ibeth Lassiter MD Primary Care Provider [phone] Reason for Visit * Reason Onset Date Comments Med Refill 12/14/2023 Encounter Details Date Type Department Care Team (Late st Contact Info) Description 12/14/[address] [facility] PEDS [address] [place] [address] Ibeth Lassiter MD [address] [place] [address] Acute necrotizing pancreatitis Social History Tobacco Use Types Packs/Day Years [...] 2:30 PM EST Clinical Support [facility] MED & PEDS [address] [place] [address] Anastasiia Ocampo RN [address] [place] [address] 09/10/2024 11:30 AM EDT Office Visit [facility] MED & PEDS [address] [place] [address] Rosalina Mathews MD [address] [place] [address] documented as of this encounter Visit Diagnoses Diagnosis Acute necrotizing pancreatitis Acute pancreatitis documented in this encounter Additional Health Concerns Assessment Noted Time PHQ-9 Depression Total Score: 24 024 3:55 PM EDT documented as of this encounter Care Teams Senior Software Analyst Relationship Specialty Start Date End Date Ibeth Lassiter MD [address] [place] [address] PCP - General Family Medicine 12/16/21 documented as of this encounter
--- OUTSIDE RECORDS SUMMARY | 2024-07-16 13:56 | XMS_ITS | Encounter Summary ---
Author Organization [employer] Address [address] [facility] [address]t [place] [address] Care Team Providers Care Cork Floor Installer Name Role Phone Ibeth Lassiter MD Primary Care Provider [phone] Reason for Visit * Reason Onset Date Comments Med Refill 11/02/2023 Encounter Details Date Type Department Care Team (Late st Contact Info) Description 11/02/2023 Refill [facility]EDS [address] [place] [address] Ibeth Lassiter MD [address] [place] [address] Acute necrotizing pancreatitis Social History Tobacco Use Types Packs/Day Years Used Date Smoking Tobacco: Never Passive Smoke Exposure: Never Smokeless Tobacco: Never Alcohol Use Standard Drinks/Week Comments Never 0 (1 standard drink = 0.6 oz pur e alcohol) Depression Answer Date Recorded Patient Health Questionnaire-9 Score 14 02/28/2023 Housing Stability Answer Date Recorded What is [...] Answer Date Recorded Patient Health Questionnaire-2 Score 2 02/28/2023 Comments No Sex and Gender Information Value [...] Clinical Support [facility] MED & PEDS [address] [place] [address] Anastasiia Ocampo RN [address] [place] [address] 09/10/2024 11:30 AM EDT Office Visit [facility] MED & PEDS [address] [place] [address] Rosalina Mathews MD [address] [place] [address] documented as of this encounter Visit Diagnoses Diagnosis Acute necrotizing pancreatitis Acute pancreatitis documented in this encounter Additional Health Concerns Assessment Noted Time PHQ-9 Depression Total Score: 14 023 10:26 AM EDT documented as of this encounter Care Teams Cork Floor Installer Relationship Specialty Start Date End Date Ibeth Lassiter MD [address] [place] [address] PCP - General Family Medicine 12/16/21 documented as of this encounter
--- OUTSIDE RECORDS SUMMARY | 2024-07-16 13:56 | XMS_ITS | Encounter Summary ---
Author Organization [employer] Address [address] [facility] [address] [place] [address] Care Team Providers Care Suction Drum Drier Operator Name Role Phone Ibeth Lassiter MD Primary Care Provider [phone] Reason for Visit * Reason Onset Date Comments Med Refill 10/22/2023 Encounter Details Date Type Department Care Team (Late st Contact Info) Description 10/22/2023 Refill [facility] MED & PEDS [address] [place] [address] Solis Taylor MD [address] [place] [address] Acute necrotizing pancreatitis Social History Tobacco Use Types Packs/Day Years Used Date Smoking Tobacco: Never Passive Smoke Exposure: Never Smokeless Tobacco: Never Alcohol Use Standard Drinks/Week Comments Never 0 (1 standard drink = 0.6 oz pur e alcohol) Depression Answer Date Recorded Patient Health Questionnaire-9 Score 14 02/28/2023 Housing Stability Answer Date Recorded What is your housing situation today? I do not have housing (Staying with others, in a hotel, in a prison, living outside on the street, on a beach, in a car, or in a park 03/12/[address] you li ve. Do you have problems with any of the following? None of the above 03/12/2023 Food Insecurity Answer Date Recorded Within the past 12 months, y ou worried that your food would run out before you got money to buy more: Often true 03/19/2023 Within the past 12 months,th e food you bought just didn't last and you didn't have enough money to get more: Often true Transportation Answer Date Recorded In the past 12 months, has l ack of transportation kept you from medical appts, meetings, work or from getting things needed for daily living? Yes, it has kept me from medical appointments or getting medications. 03/12/2023 Utilities Answer Date Recorded In the past 12 months, has t he electric, gas, oil or water company threatened to shut off services in your home? Yes 03/12/2023 Depression Answer Date Recorded Patient Health Questionnaire-2 [...] Description 07/24/2024 2:30 PM EST Clinical Support [facility] MED & PEDS [address] [place] [address] Anastasiia Ocampo RN [address] [place] [address] 09/10/2024 11:30 AM EDT Office Visit [facility] MED & PEDS [address] [place] [address] Rosalina Mathews MD [address] [place] [address] documented as of this encounter Visit Diagnoses Diagnosis Acute necrotizing pancreatitis Acute pancreatitis documented in this encounter Additional Health Concerns Assessment Noted Time PHQ-9 Depression Total Score: 14 023 10:26 AM EDT documented as of this encounter Care Teams Suction Drum Drier Operator Relationship Specialty Start Date End Date Ibeth Lassiter MD [address] [place] [address] PCP - General Family Medicine 12/16/21 documented as of this encounter
--- OUTSIDE RECORDS SUMMARY | 2024-07-16 13:56 | XMS_ITS | Encounter Summary ---
Author Organization [employer] Address [address] [facility] [address] [place] [address] Care Team Providers Care Family Practice Nurse Practitioner Name Role Phone Ibeth Lassiter MD Primary Care Provider [phone] Encounter Details Date Type Department Care Team (Latest Contact Info) Description 06/30/2024 Travel Social History Tobacco Use Types Packs/Day [...] Description 07/24/2024 2:30 PM EST Clinical Support [facility] MED & PEDS [address] [place] [address] Anastasiia Ocampo RN [address] [place] [address] 09/10/2024 11:30 AM EDT Office Visit [facility] MED & PEDS [address] [place] [address] Rosalina Mathews MD [address] [place] [address] documented as of this encounter Visit Diagnoses Not on filedocumented in this encounter Additional Health Concerns Assessment Noted Time PHQ-9 Depression Total Score: 22 025 10:04 AM EST documented as of this encounter Care Teams Family Practice Nurse Practitioner Relationship Specialty Start Date End Date Ibeth Lassiter MD [address] [place] [id number] PCP - General Family Medicine 12/16/21 documented as of this encounter
--- OUTSIDE RECORDS SUMMARY | 2024-07-16 13:56 | XMS_ITS | Encounter Summary ---
Author Organization [employer] Address [address] [facility] [address] [place] [address] Care Team Providers Care Public Relations Professional Name Role Phone Ibeth Lassiter MD Primary Care Provider [phone] Reason for Visit * Reason Onset Date Comments Med Refill 11/05/2023 Encounter Details Date Type Department Care Team (Late st Contact Info) Description 11/05/2023 Refill [facility] MED & PEDS [address] [place] [address] Ibeth Lassiter MD [address] [place] [address] Anxiety Social History Tobacco Use Types Packs/Day Years [...] Description 07/24/2024 2:30 PM EST Clinical Support [facility] MED & PEDS [address] [place] [address] Anastasiia Ocampo RN [address] [place] [address] 09/10/2024 11:30 AM EDT Office Visit [facility] MED & PEDS [address] [place] [address] Rosalina Mathews MD [address] [place] [address] documented as of this encounter Visit Diagnoses Diagnosis Anxiety Anxiety state, unspecified documented in this encounter Additional Health Concerns Assessment Noted Time PHQ-9 Depression Total Score: 14 023 10:26 AM EDT documented as of this encounter Care Teams Public Relations Professional Relationship Specialty Start Date End Date Ibeth Lassiter MD [address] [place] [address] PCP - General Family Medicine 12/16/21 documented as of this encounter
--- OUTSIDE RECORDS SUMMARY | 2024-07-16 13:56 | XMS_ITS | Encounter Summary ---
Author Organization [employer] Address [address] [facility] [address] [place] [address] Care Team Providers Care Pipe Fitter Fire Sprinkler Systems Name Role Phone Ibeth Lassiter MD Primary Care Provider [phone] Encounter Details Date Type Department Care Team (Late st Contact Info) Description 06/15/2024 Orders Only GENERIC EXTERNAL DATA DEPARTMENT [...] Upcoming Encounters Date Type Department Care Team ([facility] st Contact Info) Description 07/24/2024 2:30 PM EST Clinical Support [facility] MED & PEDS [address] [place] [address] Anastasiia Ocampo RN [address] [place] [address] 09/10/2024 11:30 AM EDT Office Visit [facility] MED & PEDS [address] [place] [address] Rosalina Mathews MD [address] [place] [address] documented as of this encounter Procedures Procedure Name Priority Date/Time Associated Diagnosis Comments CBC WITH AUTO DIFFERENTIAL Routine 06/15/2024 11:43 PM EST HCG, QL, URINE Routine 06/15/2024 11:43 PM EST LIPASE Routine 06/15/2024 11:43 PM EST HEPATIC FUNCTION PANEL Routine 11:43 PM EST COMPREHENSIVE METABOLIC PANEL Routine 06/15/2024 11:43 PM EST URINALYSIS WITH REFLEX MICROSCOPIC Routine 06/15/2024 11:42 PM EST documented in this encounter Results * Lipase (06/15/2024 11:43 PM EST) Lipase 9 8 - 78 U/L [facility] 06/15/2024 11:4 3 PM EST 06/15/2024 11:48 PM EST Generic External Data Provider LAB BLOOD ORDERAB LES Final Result Performing Organization Address [facility]/ZIP Co de Phone Number [facility] [address] [place] [phone] * Hepatic Function Panel (06/15/2024 11:43 PM EST) Pathologist [facility] Bilirubin, Direct <0.2 0.0 - 0.5 mg/dL [facility] 06/15/2024 11:4 3 PM EST 06/15/2024 11:48 PM EST ZAPR External Data Provider LAB BLOOD ORDERAB LES Final Result Performing Organization Address [facility] Co de Phone Number [facility] [address] [place] [phone] * (ABNORMAL) Comprehensive Metabolic Panel (06/15/2024 11:43 PM EST) [facility] Sodium 139 135 - 145 mmol/L [facility] Potassium 3.7 3.3 - 5.1 mmol/L [facility] Comment:Slight Hemolysis.Int erpret result with caution. Chloride 111(H) 96 - 108 mmol/L [facility] Carbon Dioxide 21(L) 22 - 29 mmol/L [facility] Anion Gap 11(L) 12 - 20 [facility] Urea Nitrogen (BUN) 12 9 - 16 mg/dL [facility] Creatinine, Serum 0.78 0.5 - 1.4 mg/dL [facility] Creatinine Clr Calc Pharmacy 92.7 [facility] Comment:Provided height and weight: 162.56 cm,57.606 kg.eGFR (calculated from the MDRD study equation) and eCrCl(calculated from the Cockcroft-Gault equation) are based ondifferent parameters and may not yield comparable results.If eCrCl result is absurd, please check patient'sheight/weight. Estimated Glomerular Filt Rate >60 [facility] Comment:Chronic Kidney Disea se: Estimated GFR < 60 mL/min/1.92w7Pdhkle Kidney Disease: Estimated GFR < 15 mL/min/1.73m2 Glucose 113 60 - 115 mg/dL [facility] Calcium 8.9 8.4 - 10.2 mg/dL [facility] Bilirubin, Total 0.2 0.0 - 1.0 mg/dL [facility] Aspartate Amino Transferase 31 5 - 31 U/L [facility] Comment:Slight Hemolysis.Int erpret result with caution. Alanine Aminotransferase 38(H) 0 - 31 U/L [facility] Total Protein 7.6 6.5 - 8.0 g/dL [facility] Albumin Level 4.4 3.5 - 5.0 g/dL [facility] Alkaline Phosphatase 168(H) 39 - 117 U/L [facility] 06/15/2024 11:4 3 PM EST 06/15/2024 11:48 PM EST us Generic External Data Provider LAB BLOOD ORDERAB LES Final Result [facility] [address] [place] [phone] * (ABNORMAL) CBC auto differential (06/15/2024 11:43 PM EST) White Blood Count 8.3 4.8 - 10.8 X10*3/uL [facility] Red Blood Count 4.93 4.20 - 5.50 X10*6/uL [facility] Hemoglobin 12.4 12.0 - 16.0 g/dl [facility] Hematocrit 38.8 37.0 - 47.0 % [facility] Mean Corpuscular Volume 78.7(L) 80.0 - 98.0 fL [facility] Mean Corpuscular Hemoglobin 25.2(L) 27.0 - 33.0 pg [facility] Mean Corpuscular HGB Conc 32.0 31.0 - 35.0 g/dl [facility] Red Cell Distribution Width 14.2 11.0 - 16.0 % [facility] Platelet Count 322 160 - 400 X10*3/uL [facility] Mean Platelet Volume 10.5 9.4 - 12.3 fL [facility] Neutrophils Percent Auto 54.8 45 - 73 % [facility] Imm Gran Pct Auto 0.4 0.0 - 0.4 % [facility] Lymphocytes Percent Auto 37.2 20 - 40 % [facility] Monocytes Percent Auto 5.5 2 - 11 % [facility] Eosinophils Percent Auto 1.6 0 - 4 % [facility] Basophils Percent Auto 0.5 0 - 2 % [facility] NRBC Pct Auto 0.0 0.0 - 0.2 /100WBC [facility] Neutrophils Absolute Auto 4.5 2.0 - 8.3 x10*3/uL [facility] Imm Gran Abs Auto 0.03 0.00 - 0.03 X10*3/uL [facility] Lymphocytes Absolute Auto 3.1 1.2 - 4.9 X10*3/uL [facility] Monocytes Absolute Auto 0.5 0.1 - 1.2 X10*3/uL [facility] Eosinophils Absolute Auto 0.1 0.0 - 0.4 X10*3/uL [facility] Basophils Absolute Auto 0.0 0.0 - 0.2 X10*3/uL [facility] NRBC Abs Auto 0.000 0.0 - 0.012 X10*3/uL [facility] 06/15/2024 11:4 3 PM EST 06/15/2024 11:48 PM EST us Generic External Data Provider LAB BLOOD ORDERAB LES Final Result [facility] [address] [place] [phone] [phone] * HCG, Qualitative, Urine (06/15/2024 11:43 PM EST) Urine NEGATIVE NEGATIVE [facility] Comment:This test was develo ped to detect early . Falsenegative results may occur after the 5th - 7th week ofpregnancy when using this test method. If clinicallyindicated, consider a serum hCG. 06/15/2024 11:4 3 PM EST 06/15/2024 11:48 PM EST us Generic External Data Provider LAB URINE ORDERAB LES Final Result Performing Organization Address [facility]/ZIP Co de Phone Number [facility] [address] [place] [phone] * (ABNORMAL) Urinalysis w/reflex microscopic (06/15/2024 11:42 PM EST) Color Urine Yellow [facility] Appearance Urine Clear [facility] PH 6.5 5.0 - 9.0 [facility] Glucose Urine UA Negative Negative mg/dL [facility] Urine Blood Negative Negative [facility] Specific [place] - Urine >=1.030(H) 1.005 - 1.025 [facility] Urine Protein Negative Neg-Trace mg/dL [facility] Urine Ketones Negative Negative mg/dL [facility] Nitrite Urine Negative Negative [facility] Leukocyte Esterase Urine Negative Negative [facility] 06/15/2024 11:4 2 PM EST 06/15/2024 11:48 PM EST Narrative [facility] - 06/15/2024 11:56 PM EST [id number], Clean Catch us Generic External Data Provider LAB URINE ORDERAB LES Final Result Performing Organization Address [facility]/ZIP Co de Phone Number [facility] [address] [place] [phone] documented in this encounter Visit Diagnoses Not on filedocumented in this encounter Additional Health Concerns Assessment Noted Time PHQ-9 Depression Total Score: 22 025 10:04 AM EST documented as of this encounter Care Teams Pipe Fitter Fire Sprinkler Systems Relationship Specialty Start Date End Date Ibeth Lassiter MD [address] [place] [address] PCP - General Family Medicine 12/16/21 documented as of this encounter
--- OUTSIDE RECORDS SUMMARY | 2024-07-16 13:56 | XMS_ITS | Encounter Summary ---
Author Organization [employer] Address [address] [facility] [place] [address] Care Team Providers Care Canine Service Instructor Trainer Name Role Phone Ibeth Lassiter MD Primary Care Provider [phone] Encounter Details Date Type Department Care Team (Late st Contact Info) Description 07/05/2024 Orders Only [facility] External Provider, [facility] Social History Tobacco Use Types Packs/Day Years [...] Upcoming Encounters Date Type Department Care Team ([facility] st Contact Info) Description 07/24/2024 2:30 PM EST Clinical Support [facility] [address] [place] [address] Anastasiia Ocampo RN [address] [place] [address] 09/10/2024 11:30 AM EDT Office Visit [facility] [address] [place] [address] Rosalina Mathews MD [address] [place] [address] documented as of this encounter Procedures Procedure Name Priority Date/Time Associated Diagnosis Comments MR ABDOMEN W AND WO CONTRAST Routine 07/06/2024 11:[address] ABDOMEN PELVIS W CONTRAST Routine 07/05/2024 2:58 AM EST documented in this encounter Results * MR Abdomen w/ and w/o Contrast (07/06/2024 11:32 AM EST) Anatomical Region Laterality Modality Abdomen Magnetic Resonan ce 07/06/2024 11:3 2 AM EST Narrative 07/06/2024 11:34 AM EST ? [facility] ?[address] ?[place] [address] ? Magnetic Resonance Report ? Signed ? Patient: Aguilar,Deepti ?MR#: [id number] ?? 5 ? : 1995 ?Acct:[id number] ? Age/Sex: 28 / F ?ADM Date: 07/05/24 ? Loc: HO.S3 ?372-1 ? Attending Dr: Alexandro Garza MD ? Ordering Physician: Chris Chandler MD ?? Date of Service: 07/06/24 ?? Procedure(s): MR abdomen wo/w con ?? Accession Number(s): [id number] ? cc: Ibeth Lassiter MD; Chris Chandler [...] by Castro Gomez MD in OV> ? 07/06/241132 ? DD/ 31 ? TD/TT: 07/06/241131 ? Nutritional Assistant: ? Procedure Note Yumiko Shaffer - 07/06/[address] [address] Magnetic Resonance Report Signed Patient: Tori Aguilar#: [id number] 5 : 1995Acct:[id number] Age/Sex: 28 / FADM Date: 07/05/24 Loc: HO.S3 372-[address]: Alexandro Garza MD Ordering Physician: Chris Chandler MD Date of Service: 07/06/24 Procedure(s): MR abdomen wo/w con Accession Number(s): [id number] cc: Ibeth Lassiter MD; Chris Chandler MD [...] 07/06/24 1133 DD/ 1132 TD/TT: 07/06/24 1132 Nutritional Assistant: [facility] External Provider IMG MRI PROCEDURES Final Result * CT Abdomen Pelvis w/ Contrast (07/05/2024 2:58 AM EST) Anatomical Region Laterality Modality Body, Pelvis, Abdomen Computed T omography 07/05/2024 2:58 AM EST Narrative 07/05/2024 2:59 AM EST ? [facility] ?[address] ?[place] [address] ? CT Scan Report ? Signed ? Patient: Aguilar,Deepti ?MR#: [id number] ?? 5 ? : 1995 ?Acct:[id number] ? Age/Sex: 28 / F ?ADM Date: 07/05/ ? Loc: HO.ED ? Attending Dr: ? Ordering Physician: Katarzyna Hui ?? Date of Service: 07/05/24 ?? Procedure(s): CT abdomen pelvis w IV con ?? Accession Number(s): [id number] ? cc: Katarzyna Hui; Ibeth Lassiter MD ? Report Number: ?? [id number]: Total DLP = ??413.00 mGy-cm ? CLINICAL [...] MD in OV> ?07/05/24 0259 ? DD/ 0258 ? TD/TT: 07/05/24 0258 ? Nutritional Assistant: ? Procedure Note Yumiko Shaffer - 07/05/[address] [address] [address] Scan Report Signed Patient: Deepti Aguilar#: [id number] 5 : 1995Acct:[id number] Age/Sex: 28 / FADM Date: 07/05/24 Loc: HO.ED Attending Dr: Ordering Physician: Katarzyna Hui Date of Service: 07/05/24 Procedure(s): CT abdomen pelvis w IV con Accession Number(s): [id number] cc: Katarzyna Hui; Ibeth Lassiter MD Report Number: [id number]: Total DLP = 413.00 mGy-cm CLINICAL HISTORY: [...] signed by Sacha Mckeon MD in OV> 07/05/24 025 DD/ 7 TD/TT: 07/05/24257 Nutritional Assistant: [facility] External Provider IMG CT PROCEDURES Final Result documented in this encounter Visit Diagnoses Not on filedocumented in this encounter Additional Health Concerns Assessment Noted Time PHQ-9 Depression Total Score: 22 025 10:04 AM EST documented as of this encounter Care Teams Canine Service Instructor Trainer Relationship Specialty Start Date End Date Ibeth Lassiter MD [address] [place] [id number] PCP - General Family Medicine 12/16/21 documented as of this encounter
--- OUTSIDE RECORDS SUMMARY | 2024-07-16 13:56 | XMS_ITS | Encounter Summary ---
Author Organization [employer] Address [address] [facility] [address] [place] [address] Care Team Providers Care Traffic Operations Engineer Name Role Phone Ibeth Lassiter MD Primary Care Provider [phone] Reason for Visit * Reason Onset Date Comments Med Refill 01/01/2024 Encounter Details Date Type Department Care Team ([facility] st Contact Info) Description 01/01/2024 Telephone [facility] [address] [place] [address] Ibeth Lassiter MD [address] [place] [address] Med Refill Social History Tobacco Use Types [...] encounter Miscellaneous Notes * Telephone Encounter - Jil Reno RN - 01/14/2024 10:07 AM EDT Triage call regarding Pt. portal message below. Pt reports headache for last week. Pain is an aching pain in the top of back of head. Pt reports some blurry vision at times. Pt has tried ice to the forehead, motrin but, reports the only thing that helps is morphine which has been prescribed for severe pain prn. Pt is only drinking 3 glasses of liquid daily. Pt is encouraged to increase liquids to6-8 glasses daily, juices, water, decaf tea. Pt agrees. Pt is asking about request for refill of MS. Advised that request is noted, present prescription in place till 01/15/24 and nurse apt is scheduled for 01/22/24. Pt reports is aware of this information. Pt is advised to come to [facility] in [facility] today or tomorrow if needed. Hours open till 800pm. Pt agrees with disposition and home care. Insurance is verified as active. Protocol Used: Headache (Adult) Protocol-Based Disposition: See in Office or Video Visit Today or Tomorrow Video visit not offered Positive Triage Question: * Unexplained headache that is present > 24 hours * All higher-acuity triage questions were negative Care Advice Discussed: * Pain Medicines * Pain Medicines - Extra Notes and Warnings * Pain Medicine for Migraine * Rest for Headache * Cold Pack for Headache * Stretching * Reasons To Call Back - Severe headache persists over 2 hours after pain medicine - Headache lasts over 24 hours despite using a pain medicine - You become worse From: Aguilar Deepti Sent: 01/12/2024 9:34 PM EDT To: [facility] Front Office Subject: Appointment Request Appointment Request From: Deepti Aguilar With Provider: Ibeth Lassiter MD [[facility]] Preferred Date Range: 01/13/2024 - 01/18/2024 Preferred Times: Any Time Reason for visit: New Problem Visit Comments: I???ve been having pain still luckily the morphine helps but I???ve had really bad headaches too * Telephone Encounter - Windy Lowe - 01/01/2024 9:28 AM EDT TC from pt requesting medication refill. Medications needing refill : morphine (MSIR) 30 MG tablet To be sent to: [facility] [address] [place] [address] documented in this encounter Plan of Treatment Upcoming Encounters Date Type Department Care Team (Late st Contact Info) Description 07/24/2024 2:30 PM EST Clinical Support [facility] [address] [place] [address] Anastasiia Ocampo, EL [address] [place] [address] 09/10/2024 11:30 AM EDT Office Visit [facility] [address] [place] [address] Rosalina Mathews MD [address] [place] [address] documented as of this encounter Visit Diagnoses Not on filedocumented in this encounter Additional Health Concerns Assessment Noted Time PHQ-9 Depression Total Score: 24 024 3:55 PM EDT documented as of this encounter Care Teams Traffic Operations Engineer Relationship Specialty Start Date End Date Ibeth Lassiter MD [address] [place] [address] PCP - General Family Medicine 12/16/21 documented as of this encounter
--- OUTSIDE RECORDS SUMMARY | 2024-07-16 13:56 | XMS_ITS | Data Portability ---
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 Plan of Treatment Reminders Order Date Submit Date Provider Last Modified By Organization Details Last Modified Time Details Appointments None recorded. Lab None recorded. Referral None recorded. Procedures None recorded. Surgeries None recorded. Imaging None recorded. Medication Orders valacyclov ir 1 gram tablet 2018 019 INTERFACE [id number], [address] [place], [address], 9 16:29:52 ranitidine 150 mg tablet 2018 019 INTERFACE [id number], [address] [place], [address], 9 16:29:52 Patient TargetsNo targets recorded. Patient InstructionsNo instructions recorded. Reason for Referral None Reported. Results Created Date Observation Date Name Description Value Unit Range Abnormal Flag Note LastModifiedBy Organization Detail LastModifiedTime 11/06/1911/05/2018 drug scree n, urine ds amphetamines NEGATI VE normal Not Available [facility] [address] [place], [address], 11/05/2018 14:54:55 11/06/19 19 11/05/2018 drug scree n, urine ds barbituates NEGATI VE normal Not Available [facility] [address] [place], [address], 11/05/2018 14:54:55 11/06/1911/05/2018 drug scree n, urine ds benzodiazepi NEGATI VE normal Not Available [facility] [address] [place], [address], 11/05/2018 14:54:55 11/06/1911/05/2018 drug scree n, urine ds cannabinoid NEGATI VE normal Not Available [facility] [address] [place] [address], [address], 11/05/2018 14:54:55 11/06/1911/05/2018 drug scree n, urine ds cocaine NEGATI VE normal Not Available [facility] [address] [place] [address], [address], 11/05/2018 14:54:55 11/06/1911/05/2018 drug scree n, urine ds methadone NEGATI VE normal Not Available [facility] [address] [place] [address], [address], 11/05/2018 14:54:55 11/06/1911/05/2018 drug scree n, urine ds opiates NEGATI VE normal Not Available [facility] [address] [place], [address], 11/05/2018 14:54:55 11/06/1911/05/2018 drug scree n, urine ds oxycodone NEGATI VE normal Not Available [facility] [address] [place] [address], [address], 11/05/2018 14:54:55 11/06/1911/05/2018 drug scree n, urine ds phencyclidin NEGATI VE normal Not Available [facility] [address] [place], [address], 11/05/2018 14:54:55 11/06/1911/05/2018 drug scree n, urine ds propoxphene NEGATI VE normal Not Available [facility] [address] [place] [address], [address], 11/05/2018 14:54:55 11/10/1911/09/2018 urina lysis , dipst ick color YELLOW yellow normal Not Available [facility] [address] [place], [place] [address] [place], [address], 11/09/2018 01:50:05 11/10/1911/09/2018 urina lysis , dipst ick appearance CLEAR clear normal Not Available [facility] [address] [place], [place] [address], [place], [address], 11/09/2018 01:50:05 11/10/1911/09/2018 urina lysis , dipst ick specific gravit 1.020 1.001- 1.035 normal Not Available [facility] [address] [place], [place] [address], [place], [address], 11/09/2018 01:50:05 11/10/1911/09/2018 urina lysis , dipst ick urine glucose TRACE neg high Not Available [facility] [address] [place] [address], [address], 11/09/2018 01:50:05 11/10/1911/09/2018 urina lysis , dipst ick urine bilirubin NEGATI VE neg normal Not Available [facility] [address] [place], [place] [address], [place], [address], 11/09/2018 01:50:05 11/10/1911/09/2018 urina lysis , dipst ick urine ketone NEGATI VE neg normal Not Available [facility] [address] [place] [address], [address], 11/09/2018 01:50:05 11/10/1911/09/2018 urina lysis , dipst ick urine HGB 2+ neg high Not Available [facility] [address] [place], [place] [address], [place], [address], 11/09/2018 01:50:05 11/10/1911/09/2018 urina lysis , dipst ick urine pH 7.0 5.0-8. 0 normal Not Available [facility] [address] [place], [place] [address], [place], [address], 11/09/2018 01:50:05 11/10/1911/09/2018 urina lysis , dipst ick urine protein TRACE( LOW) mg/dL neg normal Not Available [facility] [address] [place], [address], 11/09/2018 01:50:05 11/10/1911/09/2018 urina lysis , dipst ick urobilinogen 1.0 erlic h 0.2-1. 0 normal Not Available [facility] [address] [place], [address], 11/09/2018 01:50:05 11/10/1911/09/2018 urina lysis , dipst ick nitrite NEGATI VE neg normal Not Available [facility] [address] [place] [address], [address], 11/09/2018 01:50:05 11/10/1911/09/2018 urina lysis , dipst ick leukocyte beny NEGATI VE neg normal Not Available [facility] [address] [place] [address], [address], 11/09/2018 01:50:05 11/10/1911/09/2018 urina lysis , compl ete micro exam high 2+ MUCOU S 1+ BACTE DK FEW SQUAM OUS EPITH EL 0-4 WBC 15-25 RBC Not Available [facility] [address] [place] [address], [address], 11/09/2018 01:50:16 11/10/1911/09/2018 drug scree n, urine ds amphetamines POSITI VE normal THIS IS A SCREE ESME METHO D ONLY. THIS SPECI MEN WILL NOT BE AUTOM [facility] TO A REFER ENCE LABOR ATORY FOR CONFI RMATI ON TESTI NG. IF THE PROVI ZINA NEEDS CONFI RMATI ON TESTI NG PLEAS E CALL THE LABOR ATORY WITHI N [address] [facility] TESTI NG. Not Available [facility] [address] [place] [address], [address], 11/09/2018 01:52:53 11/10/1911/09/2018 drug scree n, urine ds barbituates NEGATI VE normal Not Available [facility] [address] [place] [address], [address], 11/09/2018 01:52:53 11/10/1911/09/2018 drug scree n, urine ds benzodiazepi NEGATI VE normal Not Available [facility] [address] [place] [address], [address], 11/09/2018 01:52:53 11/10/1911/09/2018 drug scree n, urine ds cannabinoid NEGATI VE normal Not Available [facility] [address] [place] [address], [address], 11/09/2018 01:52:53 11/10/1911/09/2018 drug scree n, urine ds cocaine NEGATI VE normal Not Available [facility] [address] [place] [address], [address], 11/09/2018 01:52:53 11/10/1911/09/2018 drug scree n, urine ds methadone NEGATI VE normal Not Available [facility] [address] [place] [address], [address], 11/09/2018 01:52:53 11/10/1911/09/2018 drug scree n, urine ds opiates NEGATI VE normal Not Available [facility] [address] [place] [address], [address], 11/09/2018 01:52:53 11/10/1911/09/2018 drug scree n, urine ds oxycodone NEGATI VE normal Not Available [facility] [address] [place] [address], [address], 11/09/2018 01:52:53 11/10/1911/09/2018 drug scree n, urine ds phencyclidin NEGATI VE normal Not Available [facility] [address] [place] [address], [address], 11/09/2018 01:52:53 11/10/1911/09/2018 drug scree n, urine ds propoxphene NEGATI VE normal Not Available [facility] [address] [place] [address], [address], 11/09/2018 01:52:53 01/10/2001/09/2019 drug scree n, urine ds amphetamines POSITI VE normal THIS IS A SCREE ESME METHO D ONLY. THIS SPECI MEN WILL NOT BE AUTOM [facility] TO A REFER ENCE LABOR ATORY FOR CONFI RMATI ON TESTI NG. IF THE PROVI ZINA NEEDS CONFI RMATI ON TESTI NG PLEAS E CALL THE LABOR ATORY WITHI N 24 HOURS TO REQUE [facility] TESTI NG. Not Available [facility] [address] [place] [address], [address], 01/09/2019 09:13:52 01/10/2001/09/2019 drug scree n, urine ds barbituates NEGATI VE normal Not Available [facility] [address] [place], [address], 01/09/2019 09:13:52 01/10/2001/09/2019 drug scree n, urine ds benzodiazepi NEGATI VE normal Not Available [facility] [address] [place] [address], [address], 01/09/2019 09:13:52 01/10/2001/09/2019 drug scree n, urine ds cannabinoid NEGATI VE normal Not Available [facility] [address] [place], [address], 01/09/2019 09:13:52 01/10/2001/09/2019 drug scree n, urine ds cocaine NEGATI VE normal Not Available [facility] [address] [place], [address], 01/09/2019 09:13:52 01/10/2001/09/2019 drug scree n, urine ds methadone NEGATI VE normal Not Available [facility] [address] [place], [address], 01/09/2019 09:13:52 01/10/2001/09/2019 drug scree n, urine ds opiates NEGATI VE normal Not Available [facility] [address] [place] [address], 01/09/2019 09:13:52 01/10/2001/09/2019 drug scree n, urine ds oxycodone NEGATI VE normal Not Available [facility] [address] [place], [address], 01/09/2019 09:13:52 01/10/2001/09/2019 drug scree n, urine ds phencyclidin NEGATI VE normal Not Available [facility] [address] [place], [address], 01/09/2019 09:13:52 01/10/2001/09/2019 drug scree n, urine ds propoxphene NEGATI VE normal Not Available [facility] [address] [place], [address], 01/09/2019 09:13:52 01/10/2001/09/2019 CBC w/ auto diff WBC 9.0 10*3/ uL 3.5-11 .0 normal Not Available [facility] [address] [place], [address], 01/09/2019 09:50:14 01/10/2001/09/2019 CBC w/ auto diff RBC 3.78 10*6/ uL 3.60-4 .80 normal Not Available [facility] [address] [place], [address], 01/09/2019 09:50:14 01/10/2001/09/2019 CBC w/ auto diff HGB 7.7 g/dL 12.0-1 6.0 low Not Available [facility] [address] [place], [address], 01/09/2019 09:50:14 01/10/2001/09/2019 CBC w/ auto diff HCT 26.3 % 36-48 low Not Available [facility] [address] [place] [address], [address], 01/09/2019 09:50:14 01/10/2001/09/2019 CBC w/ auto diff MCV 69.6 fL 79-98 low Not Available [facility] [address] [place] [address], [address], 01/09/2019 09:50:14 01/10/2001/09/2019 CBC w/ auto diff MCH 20.4 pg 25.4-3 4.6 low Not Available [facility] [address] [place] [address], [address], 01/09/2019 09:50:14 01/10/2001/09/2019 CBC w/ auto diff MCHC 29.3 g/dL 30-36 low Not Available [facility] [address] [place] [address], [address], 01/09/2019 09:50:14 01/10/20 19 01/09/2019 CBC w/ auto diff RDW 19.2 % 11.5-1 4.5 high Not Available [facility] [address] [place] [address], [address], 01/09/2019 09:50:14 01/10/2001/09/2019 CBC w/ auto diff plt 283 10*3/ uL 150-40 0 normal Not Available [facility] [address] [place] [address], [address], 01/09/2019 09:50:14 01/10/2001/09/2019 CBC w/ auto diff abs neut count 5.9 10*3/ uL 1.5-7. 5 normal Cauti on: Inter preta tion of ANC resul ts witho ut inclu clark of the WBC diffe renti al resul ts may lead to cresencio eous diagn osis; for examp [facility] proli ferat casey, OR lymph oprol ifera tive disor ders Not Available [facility] [address] [place] [address], [place], [address], 01/09/2019 09:50:14 01/10/2001/09/2019 CBC w/ auto diff abs lymph count 2.5 10*3/ uL 0.8-4. 8 normal Not Available [facility] [address] [place], [address], 01/09/2019 09:50:14 01/10/2001/09/2019 CBC w/ auto diff abs mono count 0.5 10*3/ uL 0.4-1. 3 normal Not Available [facility] [address] [place], [address], 01/09/2019 09:50:14 01/10/2001/09/2019 CBC w/ auto diff abs eo count 0.1 10*3/ uL 0.0-0. 8 normal Not Available [facility] [address] [place] [address] [place], [address], 01/09/2019 09:50:14 01/10/2001/09/2019 CBC w/ auto diff abs baso count 0.0 10*3/ uL 0.0-0. 6 normal Not Available [facility] [address] [place] [address] [place], [address], 01/09/2019 09:50:14 01/10/2001/09/2019 CBC w/ auto diff abs imm gran CT 0.0 10*3/ uL 0.0-0. 6 normal Not Available [facility] [address] [facility] [place], [address], 01/09/2019 09:50:14 01/10/2001/09/2019 CBC w/ auto diff neut% 66.1 % 35-66 high Not Available [facility] [address] [place], [address], 01/09/2019 09:50:14 01/10/2001/09/2019 CBC w/ auto diff imm gran % 0.2 % 0-2.0 normal Not Available [facility] [address] [place], [address], 01/09/2019 09:50:14 01/10/2001/09/2019 CBC w/ auto diff lymph% 27.6 % 25-45 normal Not Available [facility] [address] [place], [place] [address], [address], 01/09/2019 09:50:14 01/10/2001/09/2019 CBC w/ auto diff mono% 5.1 % 0-13 normal Not Available [facility] [address] [place], [address], 01/09/2019 09:50:14 01/10/2001/09/2019 CBC w/ auto diff eo% 0.6 % 0-8 normal Not Available [facility] [address] [place], [place] [address], [place], [address], 01/09/2019 09:50:14 01/10/2001/09/2019 CBC w/ auto diff ba% 0.4 % 0-1 normal Not Available [facility] [address] [place], [place] [address], [address], 01/09/2019 09:50:14 01/10/2001/09/2019 CBC w/ auto diff RBC morph normal MODER ATE ANISO SLIGH T MICRO CYTOS IS SLIGH T HYPOC HROMI A Not Available [facility] [address] [place], [place] [address], [address], 01/09/2019 09:50:14 01/10/2001/09/2019 type + scree n, serum blood type A NEGATI VE normal Not Available [facility] [address] [place] [address] [place], [address], 01/09/2019 10:22:11 01/10/2001/09/2019 type + scree n, serum antibody screen NEGATI VE normal Not Available [facility] [address] [place], [address], 01/09/2019 10:22:11 01/10/2001/09/2019 lab resul t results Not Available [facility] [address] [place], [address], 01/12/2019 23:59:35 01/10/2001/11/2019 amphe tamin e (GC/M S), urine amphetamines Negati ve cutoff =500 normal Not Available [facility] [address] [place], [address], 01/13/2019 17:04:24 01/10/20 19 01/11/2019 amphe tamin e (GC/M S), urine please note: Commen t . normal Drug- test resul ts shoul d be inter prete d in the vinnie xt of clini liudmila infor matbarb n. Patie nt metab olic varia bles, speci fic drug chemi stry, and speci men marisol cteri stics can affec t test outco me. Techn ical consu ltati on is avail able if a test resul t is incon siste nt with an expec bita outco me. ([email or web address] or call toll- free [phone]) Drug brand s, if liste d herei n, are trade singh of their respe ctive oncology rep s. Perfo rmed at: [facility] [place] [facility] [address], [place] [address] Lab Direc tor: Denny Peck MD, Phone : [phone] Not Available [facility] [address] [place], [address], 01/13/2019 17:04:24 01/12/20 19 01/11/2019 hemog lobin + hemat ocrit , blood HGB 5.6 g/dL 12.0-1 6.0 panic low CRITI LIUDMILA REPOR T KENNEDY D [place] [facility] 0753 REPOR T AND PATIE NT IDENT IFICA TION READ BACK TO CONFI RM ACCUR ACY Not Available [facility] [address] [place], [address], 01/11/2019 07:55:53 01/12/2001/11/2019 hemog lobin + hemat ocrit , blood HCT 19.8 % 36-48 panic low Not Available [facility] [address] [place] [address], [address], 01/11/2019 07:55:53 01/12/20 19 01/11/2019 abo group + rh type, blood blood type A NEGATI VE normal Not Available [facility] [address] [place] [address], [address], 01/11/2019 09:31:11 01/12/20 19 01/11/2019 antib donn scree n, serum or plasm a antibody screen NEGATI VE normal Not Available [facility] [address] [place] [address], [address], 01/11/2019 09:31:14 01/12/20 19 01/11/2019 cell scree n, blood scrn res. POSITI VE negati ve high THIS POSIT CASEY SCREE N WILL BE SENT TO [facility], FOR QUANT ITATI ON BY THE [facility] MAMIE- BETKE TEST. THE PROPE R DOSE OF RHOGA M FOR THIS PATIE NT WILL BE CALCU LATED FROM THE KLE MAMIE- BETKE RESUL T. Not Available [facility] [address] [place] [address], [address], 01/11/2019 09:31:17 01/12/20 19 01/11/2019 Rh immun e globu yonathan scree esme rhogam TRANSF USED PRODUC T: RH IMMUNE GLOBUL IN COUNT: 2 Not Available [facility] [address] [place] [address], [address], 01/11/2019 17:05:17 01/12/20 19 01/12/2019 hemog lobin F (hbf) , blood kleihauer betke SENT [facility] normal RESUL TS FROM [facility] IAL: 3 CELLS /1000 RBC'S ESTIM ATED BLEED = 15 ML Not Available [facility] [address] [place] [address], [address], 01/12/2019 07:04:50 Result Notes None recorded. Problems Name Problem SNOMED Code Status Onset Date Resolution Date Notes Provider Name and Address Organization Details Recorded Time Abdomina l pain 16639761 Completed 12/10/2018 EL Simms, [facility] 9 11:17:23 Cyst of ovary 03892421 Completed 12/10/2018 h/o ov cysts EL Simms, [facility] 9 11:17:54 Herpes simplex 72594627 Active Not Available [facility] 3 03:06:51 Vaginiti s and vulvovag initis Completed 12/10/2018 EL Simms, [facility] 9 11:17:20 Threaten ed miscarri age 79824979 Completed 12/10/2018 EL Simms, [facility] 9 11:17:48 Cyst of ovary 71813928 Completed h/o ov cysts [facility] 9 13:12:24 Teenage pregnanc y 280903743 Completed Enrolled in Healthy Families Corina Pamelavalerie [facility] 9 13:12:24 Depressi ve disorder 77199409 Completed h/o suicidal ideation s Corina Pamelavalerie [facility] 9 13:12:24 History of substanc e abuse 830693792 Completed ER visit 2 Corina laughlin [facility] 9 13:12:24 History of RhD negative 684620453 Completed A neg Corina Pamelavalerie [facility] 9 13:12:24 Herpesvi bahman infectio n 22317835 Completed Prophyla xis 36 wks Corinapaula laughlin [facility] 9 13:12:24 Gastroes ophageal reflux disease 505381537 Active Corinapaula laughlin [facility] 9 13:12:24 Gastroes ophageal reflux disease 972243765 Completed Corina laughlin [facility] 9 13:12:24 Proteinu dk 84507570 Active Corina laughlin, [facility] 9 13:12:24 Proteinu dk 84338614 Completed Corina laughlin [facility] 9 13:12:24 Anemia 162319036 Active Corina laughlin, [facility] 9 13:12:24 Anemia 822309197 Completed Corina laughlin [facility] 9 13:12:24 Abnormal vaginal bleeding 411826941 Completed 12/10/2018 EL Simms, [facility] 9 11:17:45 Pregnanc y 69369632 Completed 201801/13/2019 Melbajono Villagran truman [facility] 9 08:52:02 Hypereme sis gravidar um 28643417 Com[facility] 2018 [facility] 08:[facility] Genital herpes simplex 78575122 Completed 2018 2012- only had initial outbreak Melba Tyshawn truman [facility] 9 08:51:56 Postpart um hemorrha ge 96783690 Completed 2018 2014- states she required blood transfus ion. Melba Villagran truman, [facility] 9 08:51:56 Asthma 034599307 Completed 2018 Melba Villagran truman [facility] 9 08:51:56 RhD negative 375878464 Completed 2018 received rhogam 07/04/18/ will need at 28 weeks as well. Melba laughlin 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 Melba Villagran truman [facility] 9 08:51:56 History of depressi on 590318597 Completed 2018 Melba laughlin [facility] 9 08:51:56 History of anxiety state 804043963 Completed 2018 Melba laughlin [facility] 9 08:51:56 Screenin g for drug of abuse in urine specimen positive 716887072 Completed 2018 cannabin oid - 51-A filed Melba laughlin [facility] 9 08:51:56 Problem Notes None recorded. Procedures Surgical History Date Name Laterality Status Provider Name and Address Organization Details Recorded Time 9 Date of Last Pap Smear completed Lin buckley [facility] 2018 07:52:28 5 Nexplanon / Implanon Removal completed Tomi Mckinnon MD [address] [place], [place] [address], [address], [facility] 08/21/2014 12:48:49 5 Nexplanon Insertion completed Tomi Mckinnon MD [address] [place], [place] [address], [address], [facility] 07/16/2014 09:42:00 4 established patient counseling (15-24 minutes) completed Alejandro Gomez MD [address] [place] [address] [place], [address], [facility] 09/16/2013 08:15:58 3 established patient counseling (15-24 minutes) completed Alejandro Gomez MD [address] [place], [place] [address], [address], [facility] 10/21/2012 14:53:03 3 established patient counseling (15-24 minutes) completed Alejandro Gomez MD [address] [place] [address] [place], [address], [facility] 08/19/2012 15:31:26 03/07/201 3 established patient counseling (15-24 minutes) completed Alejandro Gomez MD [address] [place], [address], [facility] 08/12/2012 09:27:40 2 established patient counseling (15-24 minutes) completed Alejandro Gomez MD [address] [place] [address], [address], [facility] 09/06/2011 16:24:40 1 established patient counseling (15-24 minutes) completed Alejandro Gomez MD [address] [place] [address], [address], [facility] 05/08/2011 15:36:26 none completed Candida Mcdaniel [facility] 07/29/2012 14:46:50 Imaging Results None recorded. Procedure Notes None recorded. Medical Equipment None Reported. Allergies Allergen ID Allergen Name Allergen Category Reaction Reaction Severity Criticality Documentation Date Start Date Code Code System Note Provider Name and Address Organization Details Recorded Time 190704 oxycodone medicatio n respirato ry distress Not available Not available 09/22/2013 7804 RxNorm dizzy Ethel Castro LPN [facility] 4 09:23:47 37555 codeine medicatio n respirato ry distress Not available Not available 03/06/2011 2670 RxNorm dizzy Not Available [facility] 1 06:32:06 09910 Product containin g penicilli n and antibioti c (product) medicatio n respirato ry distress Not available Not available 08/30/2011 63396 05 [facility] 15:[facility]23 Medications Name Sig Start Date Stop Date Status Note LastModified by Organization Details LastModified Time cyclobenzap rine 10 mg tablet 06/28 completed Not Available Not Available Not Available Colace 100 mg capsule Take 1 capsule twice a day by oral route for 30 days. 2018 active Not Available Not Available Not Avai lable doxycycline hyclate 100 mg capsule 06/28 completed Not Available Not Available Not Available clindamycin HCl 300 mg capsule Take 1 capsule every 6 hours by oral route for 7 days. 10/08 completed Not Available Not Available Not Available azithromyci n 250 mg tablet 06/28 completed Not Available Not Available Not Available ibuprofen 800 mg tablet 06/28 completed Not Available Not Available Not Available valacyclovi r 1 gram tablet TAKE 1 TABLET(S) EVERY DAY BY ORAL ROUTE UNTIL DELIVERY. 2018 active Not Available Not Available Not Avai lable cephalexin 250 mg capsule 06/28 completed Not Available Not Available Not Available hydrocodone 5 mg-acetamin ophen 325 mg tablet 06/28 completed Not Available Not Available Not Available ondansetron HCl 4 mg tablet TAKE 1 TABLET BY MOUTH EVERY 8 HOURS NEEDED 2018 active Not Available Not Available Not Avai lable prednisone 20 mg tablet 06/28 completed Not Available Not Available Not Available melatonin 3 mg tablet active Not Available Not Available No t Available sulfamethox azole 800 mg-trimetho prim 160 mg tablet 06/28 completed Not Available Not Available Not Available triamcinolo ne acetonide 0.1 % topical cream active Not Available Not Available Not Available ketorolac 10 mg tablet 06/28 completed Not Available Not Available Not Available Macrobid 100 mg capsule Take 1 capsule every 12 hours by oral route for 7 days. 03/11 completed Not Available Not Available Not Available citalopram 20 mg tablet 06/28 completed Not Available Not Available Not Available famotidine 20 mg tablet TAKE 1 TABLET BY MOUTH TWICE A DAY 2018 active Not Available Not Available Not Avai lable ranitidine 150 mg tablet TAKE 1 TABLET BY MOUTH TWICE A DAY 2018 active Not Available Not Available Not Avai lable sertraline 25 mg tablet active Not Available Not Available Not Available omeprazole 20 mg capsule,del ayed release 06/28 completed Not Available Not Available Not Available hydroxyzine HCl 25 mg tablet 06/28 completed Not Available Not Available Not Available ibuprofen 600 mg tablet TAKE 1 TABLET BY MOUTH EVERY 6 HOURS NEEDED FOR MILD CRAMPING PAIN (1-5) 2018 active Not Available Not Available Not Avai lable Vitamin C 250 mg tablet 06/28 completed Not Available Not Available Not Available ferrous sulfate 325 mg (65 mg iron) tablet,johnny yed release 06/28 completed Not Available Not Available Not Available ondansetron 4 mg disintegrat ing tablet 06/28 completed Not Available Not Available Not Available sertraline 50 mg tablet active Not Available Not Available Not Available medroxyprog esterone 150 mg/mL intramuscul ar suspension 06/28 completed Not Available Not Available Not Available Ventolin HFA 90 mcg/actuati on aerosol inhaler 06/28 completed Not Available Not Available Not Available 1 po q day active Not Available Not Available No t Available HyperRHO S/D 1,500 unit (300 mcg) intramuscul ar syringe Inject 1 syringe by intramusc ular route. 2018 active Not Available Not Available Not Avai lable Beyaz (28) 3 mg-0.02 mg-0.451 mg (24)/0.451 mg (4) tablet Take 1 tablet every day by oral route as directed. 2010 active Not Available Not Available Not Avai lable Pain and Fever 325 mg tablet 06/28 completed Not Available Not Available Not Available Nexplanon 68 mg subdermal implant Inject by subcutane ous route. 06/28 completed Not Available Not Available Not Available Banophen 50 mg capsule active Not Available Not Available N ot Available Xulane 150 mcg-35 mcg/24 hr transdermal patch Apply 1 patch every week by transderm al route before meals for 21 days. 06/28 completed Not Available Not Available Not Available Bonjesta 20 mg-20 mg tablet,imme diate and delay release active Not Available Not Available Not Available Vitals Date Recorded Body weight Provider Name an d Address Organization Details Last Updated DateTime 12/03/2018 [id number] jeremías Junior MD [place] [facility] 12/03/2018 14:46:40 Date Recorded Systolic blood pressure Diastolic blood pressure Provider Name and Address Organization Details Last Updated DateTime 12/03/2018 110 mm[Hg] 60 mm[Hg] Not Available [facility] Record 12/03/2018 14:34:59 Date Recorded Body weight Provider Name an d Address Organization Details Last Updated DateTime 12/17/2018 [id number] jeremías Junior MD [facility] 12/31/2018 14:18:46 Date Recorded Systolic blood pressure Diastolic blood pressure Provider Name and Address Organization Details Last Updated DateTime 12/17/2018 110 mm[Hg] 68 mm[Hg] Not Available [facility] [place] 12/17/2018 16:09:08 Date Recorded Body weight Provider Name an d Address Organization Details Last Updated DateTime 12/24/2018 [id number] jeremías Junior MD [facility] 12/31/2018 14:18:47 Date Recorded Systolic blood pressure Diastolic blood pressure Provider Name and Address Organization Details Last Updated DateTime 12/24/2018 116 mm[Hg] 60 mm[Hg] Not Available [facility] [place] 12/24/2018 15:34:53 Date Recorded Body weight Provider Name an d Address Organization Details Last Updated DateTime 12/31/2018 72243.35788 g Tao Junior MD [facility] 12/31/2018 14:18:47 Date Recorded Systolic blood pressure Diastolic blood pressure Provider Name and Address Organization Details Last Updated DateTime 12/31/2018 102 mm[Hg] 68 mm[Hg] Not Available [facility] [place] 12/31/2018 13:53:02 Date Recorded Body weight Provider Name an d Address Organization Details Last Updated DateTime 01/07/2019 [id number] jeremías Junior MD [facility] 01/07/2019 14:10:01 Date Recorded Systolic blood pressure Diastolic blood pressure Provider Name and Address Organization Details Last Updated DateTime 01/07/2019 124 mm[Hg] 80 mm[Hg] Not Available [facility] [place] 01/07/2019 13:48:46 Social History Question Answer Notes LastModified by Organizat ion Details LastModified Time Tobacco Smoking Status Current Every Day Smoker quit Not Available [facility] 04/06/2020 03:15:48 What Is Your Level Of Alcohol Consumption? None [id number] Information not available 04/06/2020 Are You A Past Or Present Victim Of Abuse? No 16 Information not available 04/19/2011 Illicit Drugs No H/o MJ Use, None Recently Information not available 04/19/2011 Marital Status Single Steady Partner- Stationed In [place] At The Moment [email or web address] Information not available 09/22/2013 What Was The Date Of Your Most Recent Tobacco Screening? 06/28/2018 [id number] Information not available 04/06/2020 Are You Sexually Active? No Not Currently [id number] Information not available 04/06/2020 At What Age Did You Start Smoking Tobacco? 15 [id number] Information not available 04/06/2020 How Much Tobacco Do You Smoke? No [id number] Information not available 04/06/2020 How Many Years Have You Smoked Tobacco? 3 [id number] Information not available 04/06/2020 Sex: Unknown Functional Status None recorded. Mental Status None recorded. Family History Relationship Description Onset Age of this Age Resolved Age Notes LastModified by Organization Details LastModified Time Maternal Grandmother Diabetes mellitus adamour Not available 2013 00:03:59 Maternal Grandmother Malignant neoplastic disease liver adamour Not available 2013 00:03:59 Maternal Grandfather Malignant neoplastic disease liver adamour Not available 2013 00:03:59 Sister Diabetes mellitus x 2 Twin sister s - diag age 5 adamour Not available 10/02/2013 00:03:59 Medical History Condition Response cancer N osteopenia/osteoprosis N anemia or bleeding problems N heart problems, murmurs N defects or inherited disease N infertility N bladder / kidney infection(s) N lung disease Y varicosities N endometriosis N high blood pressure N GERD / reflux N other Y hepatitis N anxiety disorder Y thyroid disease or other endocrine probl ems N frequent headaches/migraines Y breast problem Y psychiatric illness Y Gynecological History Statement/Question Response Date of LMP 04/19/2018 Living children 1 History of abnormal pap yes Ovarian Cysts Y Abortions none Genital Herpes Y Breast Biopsy N Para 1 Perform self breast exam Y D & C N Duration of Flow (days) 4 Last Tdap Vaccine Last bone density 1 Contraception None Frequency of Cycle (Q days) 28 Fibroids N Gonorrhea/Chlamydia N Date of Last Pap Smear 07/12/2018 Obstetrics History GPAL:G 2 P 1 0 0 1 Type Value Full Term 1 Living 1 Total 2 Immunizations Vaccine Type Date Status Note Provider Nam e and Address Organization Details Recorded Time Tdap 11/19/2018 completed Not Available [facility] 06/21/2019 02:20:57 Past Encounters Encounter ID Performer Location Encounter Start Date Encounter Closed Date Diagnosis/Indication Diagnosis SNOMED-CT Code Diagnosis ICD10 Code Diagnosis Note [id number] [facility] [address] [place] [address] 03/06/2011 13:47:52 03/06/2011 15:00:58 [id number] [facility] [place] [address] [place] [id number] 05/08/2011 14:05:17 05/08/2011 15:43:23 [id number] Ethel Castro LPN [facility] [address] [place] [address] 08/30/2011 15:18:10 08/30/2011 16:14:53 [id number] [facility] [place] [address] [place] [id number] 09/06/2011 15:28:53 09/06/2011 16:30:26 [id number] Alejandro Gomez MD [facility] [address] [place] [address] [place] [address] 07/29/2012 14:14:28 08/01/2012 08:20:02 [id number] Alejandro Gomez MD [facility] [place] [address] [place] [id number] 08/08/2012 15:05:41 08/12/2012 10:06:18 [id number] Alejandro Gomez MD [facility] [place] [address] [place] [address] 08/19/2012 15:06:29 08/19/2012 16:30:58 [id number] Alejandro Gomez MD [facility] [address] [place] [address] [place] [address] 10/21/2012 14:38:06 10/21/2012 15:02:32 [id number] Candida Mcdaniel MA [facility] [address] [place] [address] [place] [address] 09/05/2013 13:48:05 09/05/2013 15:08:50 Routine care [id number] Threatened miscarriage [id number] [facility] [address] [place] [address] [place] [address] 09/11/2013 15:11:22 09/16/2013 08:54:20 [id number] Threatened miscarriage [id number] Tita Mayer [facility] [address] [place] [address] [place] [address] 09/22/2013 08:56:23 09/23/2013 08:33:01 [facility] [id number] * reviewed packet from OB * discuss nutrition & exercise * seatbelt use * obtain medical & ob history * order initial/op tional labs * discuss genetic testing * discuss/ad car unloader helper flue vaccine - prn * refer to nutrition - prn * refer to health families - prn * refer to WIC - prn * complete & send insurance precert - prn ([facility], [facility], [facility]) * order early u/s - prn * refer to SS - prn (options) * refer to OBS (early class) [id number] Ethel Castro LPN [facility] [address] [place], [place] [address] [address] 10/01/2013 11:07:06 10/01/2013 13:07:23 [facility] [id number] Specialize d medical examination [id number] [facility] [id number] Tita Mayer [facility] [address] [place], [place] [address] [address] 10/29/2013 11:19:36 10/29/2013 11:54:59 [facility] [id number] [facility] [address] [place], [place] [address] [address] 11/13/2013 14:22:09 11/13/2013 14:30:30 [id number] Candida Mcdaniel [facility] [address] [place] [address] [place] [address] 11/26/2013 10:41:34 11/26/2013 13:02:48 [facility] [id number] [facility] [address] [place] [address] [place] [address] 12/24/2013 10:32:37 12/24/2013 13:39:55 [facility] [id number] Holly Jose Angel [facility] [address] [place] [id number] 7 01/22/2014 14:44:06 01/22/2014 15:52:56 [facility] [id number] * reviewed packet from OB * discuss nutrition & exercise * seatbelt use * obtain medical & ob history * order initial/op tional labs * discuss genetic testing * discuss/ad car unloader helper flue vaccine - prn * refer to nutrition - prn * refer to health families - prn * refer to WIC - prn * complete & send insurance precert - prn ([place], [facility], [facility]) * order early u/s - prn * refer to SS - prn (options) * refer to OBS (early class) Routine an tenatal care [id number] Vesta Lopez [facility] [address] [place] [address] 7 02/12/2014 13:44:59 02/12/2014 14:37:26 Routine care [id number] Tita Mayer CMA [facility] [address] [place] [address] 7 02/16/2014 13:15:11 02/16/2014 15:00:56 Pain in pelvis 86332201 [facility] isoimmunization with problem [id number] [id number] Sarahi Perez [facility] [address] [place] [address] 7 02/26/2014 14:05:38 02/27/2014 09:49:35 [facility] [id number] Routine an tenatal care 566986417 Gastroesop hageal reflux disease [id number] Zamzam Calix NP [facility] [address] [place] [address] 7 03/09/2014 14:14:11 03/09/2014 14:48:50 [facility] [id number] Confirm classesCon firm pediatrici anCircumci clark informatio n [id number] Melba Pierson'Brien [facility] [address] [place], [place] [address], [place] [address] 03/23/2014 14:23:28 03/24/2014 08:48:15 [facility] [id number] [facility] [address] [place] [address] [place] [address] 04/06/2014 15:14:35 04/08/2014 09:34:26 [facility] 133442249 GBS informatio n given Contracept ion discussed and informatio n given Review signs of labor [id number] [facility] [address] [place], [place] [address], [place] [address] 04/13/2014 11:21:11 04/13/2014 13:38:55 [facility] [id number] Confirm classesCon firm pediatrici anCircumci clark informatio n [id number] [facility] [address] [address] 04/20/2014 13:36:12 04/20/2014 15:15:12 [facility] 182075510 GBS informatio n given Contracept ion discussed and informatio n given Review signs of labor [id number] [facility] [address] [place] [address] 7 04/27/2014 13:55:22 04/28/2014 09:23:06 [facility] [id number] Laurita [facility] [address] [place] [address] 7 05/04/2014 13:54:43 05/04/2014 16:20:58 [facility] 732847050 GBS informatio n given Contracept ion discussed and informatio n given Review signs of labor Routine an tenatal care [id number] Tomi Mckinnon MD [facility] [address] [place], [place] [address], [place] [address] 05/12/2014 14:04:25 05/12/2014 14:49:10 [facility] [id number] [facility] [address] [place] [address] 7 07/08/2014 13:07:33 07/08/2014 14:23:39 care [id number] [facility] [address] [place] [address] [place] [id number] 07/16/2014 08:58:36 07/22/2014 09:48:23 Insertion of subcutaneous contraceptive [id number] [id number] Carito Wiley [facility] [address] [place] [address] [place] [address] 08/21/2014 11:27:48 08/24/2014 08:13:23 Subcutaneous contraceptive implant present 269230334 Uses trans dermal contraception [id number] Ligia Gay RN [facility] [address] [place] [address] [place] [address] 01/15/2015 14:57:18 01/19/2015 14:26:46 Abnormal vaginal bleeding 071360026 [id number] Tao Junior MD [facility] [address] [place] [address] [place] [address] 06/28/2018 12:52:25 07/09/2018 11:49:46 Routine care 410109851 Z34.81 * reviewed packet from OB * discuss nutrition & exercise * seatbelt use * obtain medical & ob history * order initial/op tional labs * discuss genetic testing * discuss/ad car unloader helper flu vaccine - prn * refer to nutrition - prn * refer to health families - prn * refer to WIC - prn * complete & send insurance precert - prn ([facility], [facility]) * order early u/s - prn * refer to SS - prn (options) * refer to OBS (early class) Hyperemesi s gravidarum 37515385 O21.0 [id number] Tao Junior MD [facility] [address] [place] [address] [place] [address] 07/12/2018 14:03:12 07/12/2018 15:27:48 Routine care 168672565 Z34.81 * reviewed packet from OB * discuss nutrition & exercise * seatbelt use * obtain medical & ob history * order initial/op tional labs * discuss genetic testing * discuss/ad car unloader helper flu vaccine - prn * refer to nutrition - prn * refer to health families - prn * refer to WIC - prn * complete & send insurance precert - prn ([facility], [facility], [facility]) * order early u/s - prn * refer to SS - prn (options) * refer to OBS (early class) Screening for malignant neoplasm of cervix 577331576 Z12.4 Specialize d medical examination 39013994 Z11.8 Gestation period, 12 weeks 29311015 Z3A.12 hear t rate not observed 432492011 O76 [id number] Tomi Mckinnon MD [facility] [address] [place] [id number] 7 08/09/2018 14:07:19 08/09/2018 15:28:23 Routine care 407233410 Z34.82 Gestation period, 17 weeks 34431449 Z3A.17 Gestation period, 18 weeks 29617496 Z3A.18 [id number] Daniel Soto MD [facility] [address] [place] [address] 7 08/23/2018 08:17:01 08/23/2018 11:38:39 Routine care 475200129 Z34.82 Gestation period, 19 weeks 72100544 Z3A.19 [id number] Tomi Mckinnon MD [facility] [address] [place] [address] 7 09/10/2018 14:58:12 09/11/2018 11:55:57 Routine care 926528830 Z34.82 Gestation period, 21 weeks 36487307 Z3A.21 [id number] Alejandro Gomez MD [facility] [address] [place] [address] 7 10/08/2018 14:56:26 10/08/2018 15:50:04 Gestation period, 26 weeks 31074228 Z3A.26 Routine an tenatal care 796316111 Z34.82 Gestation period, 25 weeks 22078346 Z3A.25 [id number] Tomi Mckinnon MD [facility] [address] [address] 10/29/2018 11:03:01 10/29/2018 15:56:02 Blood group B Rh(D) negative 608920704 Z67.21 RhD negative 175230746 Z 01.83 Routine an tenatal care 447447294 Z34.83 Gestation period, 28 weeks 57157307 Z3A.28 [id number] Tomi Mckinnon MD [facility] [address] [place] [address] [place] [address] 10/29/2018 11:55:42 10/29/2018 15:25:19 Vaginal discharge 400799762 N89.8 see Nurse visit same day for orders [id number] Alejandro Gomez MD [facility] [address] [place], [place] [address] [address] 11/05/2018 13:41:34 11/05/2018 16:40:05 Screening for drug of abuse in urine specimen positive 120253484 R82.5 Gestation period, 29 weeks 60719790 Z3A.29 [id number] Tomi Mckinnon MD [facility] [address] [place] [address] 7 11/19/2018 13:58:33 11/19/2018 14:48:09 Routine care 116534413 Z34.83 Gestation period, 31 weeks 42237227 Z3A.31 Administra tion of diphtheria, pertussis, and tetanus vaccine 164578863 Z23 [id number] Tao Junior MD [facility] [address] [place], [place] [address], [place] [address] 12/03/2018 14:21:42 12/03/2018 15:13:37 Gestation period, 33 weeks 27428175 Z3A.33 [id number] Tomi Mckinnon MD [facility] [address] [place], [place] [address], [place] [address] 12/17/2018 15:58:04 12/17/2018 16:34:37 Routine care 131370368 Z34.83 Gestation period, 35 weeks 71523622 Z3A.35 Genital he rpes simplex 43425911 O98.313 Gastroesop hageal reflux disease 518852803 K21.9 [id number] Tomi Mckinnon MD [facility] [address] [place] [address] 12/24/2018 15:23:03 12/24/2018 16:23:43 Routine care 284063861 Z34.83 Gestation period, 36 weeks 66901179 Z3A.36 [id number] Tao Junior MD [facility] [address] [place] [address] 7 12/31/2018 13:45:54 12/31/2018 14:24:28 Routine care 213608869 Z34.83 Gestation period, 37 weeks 02078190 Z3A.37 [id number] Tao Junior MD [facility] [address] [place] [address] 7 01/07/2019 13:42:18 01/07/2019 14:15:12 Routine care 132551221 Z34.83 Gestation period, 38 weeks 06842313 Z3A.38 Health Concerns Section Related Observation LastModified by Organization Detai ls LastModified Time None Recorded Concern Status LastModified by Organization Details LastModified Time None Recorded Advance Directives Directive None Recorded Payers Encounter Date Sequence Insurance Name Policy Number Policy Kirk[place] Covered Member ID [place] Member ID Guarantor Name 12/03/2018 1 [place] Deepti Aguilar [id number] Deepti Aguilar 12/17/2018 1 [place] Deepti Aguilar [id number] Deepti Aguilar 12/24/2018 1 [place] Deepti Aguilar [id number] Deepti Aguilar 12/31/2018 1 [place] Deepti Aguilar [id number] Deepti Aguilar 01/07/2019 1 [place] Deepti Aguilar [id number] Deepti Aguilar OBGyn Episode Ob Episode Information Episode Created Date Number of Fetuses Patient Bloodtype Patient rh Status Prepregnancy Weight lbs Domestic Partner Domestic Partner Phone Father Name Aml Analyst Status 09/23/19 14 1 A Negative 96 Mayur Manzano CLOSED Fetus Data First Name Last Name Admitted to NICU Weight (g) Sex Living Outcome Pediatric Complications Fetus ID Race Codes Race Delivery Type Adalyn n 3543.68 75 F Full Term [id number] Vaginal ([id number]) Problems Problem Notes Pt had flu vax 03/2013 Problem Name Start Date End Date Resolution Snomed Code Not e Cyst of ovary 48762986 h/o ov cysts Teenage 573953617 En rolled in [employer] Depressive disorder 55405920 h/o suicidal ideations History of substance abuse 812458412 ER visit 012 Herpesvirus infection 26878764 Prophylaxis 36 wks History of RhD negative 564132 004 A neg Gastroesophageal reflux disease 404183461 Anemia 050361993 Proteinuria 24108748 Adams Calculation Initial Adams Date Initial Exam Date Initial Exam Provider Initial Ultrasound Date Last Menstrual Period Date Ultra Sound Weeks Gestation 05/07/2014 09/22/2013 09/11/2013 2013 6 Eighteen To Twenty Week Adams Update Ultra Sound Date Fundal Height At Umbil Quickening Date Ultra Sound Latest Weeks Gestation Final Adams Confirmed By Final Adams Confirmed Date Final Adams Date Ultra Sound Latest Days Gestation 0 [email or web address] 09/22/2013 05/07/20 14 0 Pre- Flowsheet Flowsheet Date 09/22/2013 Marquez Score Blood Edema Fundus Height Fundus Units Glucose Ketones Leukocytes Nitrite Labor Signs Protein Cervic Dilation Cervic Effacement Cervic Station neg none none none Negative Other (see comments ) neg Type Weight in lbs Pre/Post Dialysis Refused 99.1854044563054 BP Diastolic BP Location Tested BP Systolic BP Type 56 90 Fetus Heart Rate Present Fetus Movement A No Comments Unplanned, unprevented preg, FOB not involved. Pt does not want him here for visits. Pt lives with her Mom & Dad & siblings. She plans to raise this child with their help. Her father is present for intake & very supportive. Pt with N&V, which has been improving with Zofran use. Pt quit smoking with preg knowledge. Discussed Nutrition referral, pt will consider & advise. Pt is already enrolled in [email or web address], (her HS referred her). Pt has appt in place @ [facility]. Discussed CF & ERA testing, pt will review & advise. Pt with past h/o MJ use. Reports no recent use. 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 No seizures since. Pt with h/o anxiety & depression, but does have good support system in place. 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 No outbreaks other than initial one. Lab slip given to complete OB labs. Discussed Tdap, info given, recommended later in preg. BD Flowsheet Date 10/01/2013 Marquez Score Blood Edema Fundus Height Fundus Units Glucose Ketones Leukocytes Nitrite Labor Signs Protein Cervic Dilation Cervic Effacement Cervic Station none none Other (see comments ) neg Type Weight in lbs Pre/Post Dialysis Refused 99.0989948431202 BP Diastolic BP Location Tested BP Systolic BP Type 70 100 Fetus Heart Rate Present A Present Fetus Movement A No Comments +pnv , nausea still some abd ominal pain , stopped smoking Does want nutrition referal Flowsheet Date 10/29/2013 Marquez Score Blood Edema Fundus Height Fundus Units Glucose Ketones Leukocytes Nitrite Labor Signs Protein Cervic Dilation Cervic Effacement Cervic Station none 13 wks none Other (see comments ) neg Type Weight in lbs Pre/Post Dialysis Refused 96.1996156549536 BP Diastolic BP Location Tested BP Systolic BP Type 70 110 Fetus Heart Rate Present A Present Fetus Movement A Yes Comments some abdominal pain , no vb accepts CF and Quad// Unable to take gummies PNV- advised Flinestone chewables BID. Discussed genetic tests. US to be done at 20 week visit. Flowsheet Date 11/13/2013 Marquez Score Blood Edema Fundus Height Fundus Units Glucose Ketones Leukocytes Nitrite Labor Signs Protein Cervic Dilation Cervic Effacement Cervic Station Type Weight in lbs Pre/Post Dialysis Refused BP Diastolic BP Location Tested BP Systolic BP Type Fetus Heart Rate Present A Present Fetus Movement Comments FH check s/p t/c of this mor esme. FHT's appreciated easily. No bleeding. Pain is better. Pt agrees to call prn w/ any concerns or symptoms. Otherwise, next visit as scheduled. Flowsheet Date 11/26/2013 Marquez Score Blood Edema Fundus Height Fundus Units Glucose Ketones Leukocytes Nitrite Labor Signs Protein Cervic Dilation Cervic Effacement Cervic Station none none Other (see comments ) neg Type Weight in lbs Pre/Post Dialysis Refused 98.8363123268037 BP Diastolic BP Location Tested BP Systolic BP Type 60 110 Fetus Heart Rate Present A Present Fetus Movement A Yes Comments pain, cramping , sore no vb Flowsheet Date 12/24/2013 Marquez Score Blood Edema Fundus Height Fundus Units Glucose Ketones Leukocytes Nitrite Labor Signs Protein Cervic Dilation Cervic Effacement Cervic Station none 21 cm none Cramping neg Type Weight in lbs Pre/Post Dialysis Refused 101.939783257675 BP Diastolic BP Location Tested BP Systolic BP Type 58 R arm 102 sitting Fetus Heart Rate Present A Present Fetus Movement A Yes Comments Pt. had u/s done on 12/08/13 , pt. states baby is a girl. c/o cramping, no vb. Pt. is Rh negative will need Rhogam appt. booked at 28 weeks. Flowsheet Date 01/22/2014 Marquez Score Blood Edema Fundus Height Fundus Units Glucose Ketones Leukocytes Nitrite Labor Signs Protein Cervic Dilation Cervic Effacement Cervic Station none 25 cm none none Negative Other (see comments ) neg Type Weight in lbs Pre/Post Dialysis Refused 105.407114805700 BP Diastolic BP Location Tested BP Systolic BP Type 64 116 Fetus Heart Rate Present A Present Fetus Movement A Yes Comments Lab slip given for 28 week l abs. Pt will need Rhogam 02/12/2014. Pt reports B&B ok, some cramping at times. BD Flowsheet Date 02/12/2014 Marquez Score Blood Edema Fundus Height Fundus Units Glucose Ketones Leukocytes Nitrite Labor Signs Protein Cervic Dilation Cervic Effacement Cervic Station none 28 cm none Cramping neg Type Weight in lbs Pre/Post Dialysis Refused 106.70016983177 BP Diastolic BP Location Tested BP Systolic BP Type 60 L arm 94 sitting Fetus Heart Rate Present A Present Fetus Movement A Yes Comments JASON. Cannot do rhogam today as pt has not done labs. Pt agrees to be drawn tomorrow and r/s shot for Sunday.//EK// Advised of importance of labs. Encouraged weight gain. Flowsheet Date 02/16/2014 Marquez Score Blood Edema Fundus Height Fundus Units Glucose Ketones Leukocytes Nitrite Labor Signs Protein Cervic Dilation Cervic Effacement Cervic Station Type Weight in lbs Pre/Post Dialysis Refused BP Diastolic BP Location Tested BP Systolic BP Type Fetus Heart Rate Present Fetus Movement Comments Labs wnl informed her to add FE supplement into her daily routine c/o pressure no vb some cramps urine ccms obt Flowsheet Date 02/26/2014 Marquez Score Blood Edema Fundus Height Fundus Units Glucose Ketones Leukocytes Nitrite Labor Signs Protein Cervic Dilation Cervic Effacement Cervic Station none 30 cm none Cramping trace 0cm 10% -2 Type Weight in lbs Pre/Post Dialysis Refused 108.371564409367 BP Diastolic BP Location Tested BP Systolic BP Type 60 L arm 100 sitting Fetus Heart Rate Present A Present Fetus Movement A Yes Comments JASON. Reminded of tdap thru p cp. Discussed flu vaccine, pt will consider it, but not today.HF Collab person is with her today because they are going to tour maternity after the jason appt. States she has been rxd for uti. Cramping x 2 days, possibly ctx in past 2 weeks occurring 2 in a day. Mucous discharge in past 2-5 days.//EK//GERD: Zantac. PTL precautions. Flowsheet Date 03/09/2014 Marquez Score Blood Edema Fundus Height Fundus Units Glucose Ketones Leukocytes Nitrite Labor Signs Protein Cervic Dilation Cervic Effacement Cervic Station none 31 cm none Cramping 1+ Type Weight in lbs Pre/Post Dialysis Refused 109.843345668859 BP Diastolic BP Location Tested BP Systolic BP Type 60 R arm 120 sitting Fetus Heart Rate Present A Present Fetus Movement A Yes Comments PT presents for return OB vi sit-no issues or concerns at this time- VLB// Pt missing a lot of school due to pain and continued nausea. She is requesting to go out of school and have a home high school science tutor so she can keep up with her school work. Flowsheet Date 03/23/2014 Marquez Score Blood Edema Fundus Height Fundus Units Glucose Ketones Leukocytes Nitrite Labor Signs Protein Cervic Dilation Cervic Effacement Cervic Station none 33 cm Uterine Contract ions Type Weight in lbs Pre/Post Dialysis Refused 112.064512284322 BP Diastolic BP Location Tested BP Systolic BP Type 70 110 Fetus Heart Rate Present A Present Fetus Movement A Yes Comments backpain was in for labor ch david last night//EDC discussed based on 1st trim US. Dates are correct for May 07. Flowsheet Date 04/06/2014 Marquez Score Blood Edema Fundus Height Fundus Units Glucose Ketones Leukocytes Nitrite Labor Signs Protein Cervic Dilation Cervic Effacement Cervic Station none 34 cm none Bleeding trace Type Weight in lbs Pre/Post Dialysis Refused 117.484589309695 BP Diastolic BP Location Tested BP Systolic BP Type 72 R arm 112 sitting Fetus Heart Rate Present A Present Fetus Movement A Yes Comments Pt presents for return OB vi sit-some spotting last night, possible bloody show, no other issues or concerns-; GBS next visit-CBC lab slip given for repeat HGB; -VLB Flowsheet Date 04/13/2014 Marquez Score Blood Edema Fundus Height Fundus Units Glucose Ketones Leukocytes Nitrite Labor Signs Protein Cervic Dilation Cervic Effacement Cervic Station none 35 cm none Other (see comments ) neg 1cm 60% -2 Type Weight in lbs Pre/Post Dialysis Refused 118.652936150479 BP Diastolic BP Location Tested BP Systolic BP Type 70 116 Fetus Heart Rate Present A Present Fetus Movement A Yes Comments some pain and ctx last night with pressure has been in for labor checks , she did test psitive for gbs but a C&S wasnt done she does have a PCN allergy Flowsheet Date 04/20/2014 Marquez Score Blood Edema Fundus Height Fundus Units Glucose Ketones Leukocytes Nitrite Labor Signs Protein Cervic Dilation Cervic Effacement Cervic Station none 36 cm none Cramping 1+ Type Weight in lbs Pre/Post Dialysis Refused 119.017885780986 BP Diastolic BP Location Tested BP Systolic BP Type 68 R arm 118 sitting Fetus Heart Rate Present A Present Fetus Movement A Yes Comments Pt presents for return OB vi sit- states she is very uncomfortable- lots of cramping-baby very active, lots of ctx , nothing timeable- VLB Flowsheet Date 04/27/2014 Marquez Score Blood Edema Fundus Height Fundus Units Glucose Ketones Leukocytes Nitrite Labor Signs Protein Cervic Dilation Cervic Effacement Cervic Station none 36 cm none Uterine Contract ions neg 1cm 50% -2 Type Weight in lbs Pre/Post Dialysis Refused 121.624219354958 BP Diastolic BP Location Tested BP Systolic BP Type 60 118 Fetus Heart Rate Present A Present Fetus Movement A Yes Comments was in for labor check yeste rday//GBS sensitivity today (was not done). Allergy to PCN angioedema Flowsheet Date 05/04/2014 Marquez Score Blood Edema Fundus Height Fundus Units Glucose Ketones Leukocytes Nitrite Labor Signs Protein Cervic Dilation Cervic Effacement Cervic Station none 38 cm none Uterine Contract ions neg 1cm 50% -2 Type Weight in lbs Pre/Post Dialysis Refused 124.548883237436 BP Diastolic BP Location Tested BP Systolic BP Type 70 130 Fetus Heart Rate Present A Present Fetus Movement A Yes Comments Pt reports ctx 5 to 10 minut es apart today. Freq ctx yesterday as well. No VB. No swelling. Pt reports freq migraines & seeing spots in her vision. Protein neg. Labor precautions reviewed. Pt not sure what she will do for PP BC, info given. PPD discussed, info given. Exam today. Sister present. BD Flowsheet Date 05/12/2014 Marquez Score Blood Edema Fundus Height Fundus Units Glucose Ketones Leukocytes Nitrite Labor Signs Protein Cervic Dilation Cervic Effacement Cervic Station trace none Uterine Contract ions 4+ 3cm 70% -1 Type Weight in lbs Pre/Post Dialysis Refused 125.280914477001 BP Diastolic BP Location Tested BP Systolic BP Type 70 110 Fetus Heart Rate Present A Present Fetus Movement A Yes Comments edema feet , ctx and back pa in// NST reactive today. BPP 8/8, efw 7-14. Proteinuria noted- IOL discussed- plan for 05/13, pitocin. Note- 3 GBS cultures done- last 2 were negative. No HSV prophylaxis. Flowsheet Date 06/28/2018 Marquez Score Blood Edema Fundus Height Fundus Units Glucose Ketones Leukocytes Nitrite Labor Signs Protein Cervic Dilation Cervic Effacement Cervic Station Type Weight in lbs Pre/Post Dialysis Refused Weight 103.997564932893 BP Diastolic BP Location Tested BP Systolic BP Type 64 R arm 96 sitting Fetus Heart Rate Present Fetus Movement Comments Menstrual History Last Menstrual Date Menses Monthly On Bcp Conception Prior Menses Frequency Hcg Plus Date Menarche Onset Age 0207/31/2013 Genetic Screening And Infection History Question Response Note Father of baby will be 50 ye ars or older at estimated date of deliery false Cleft lip/palate false Consanguinity false Cerebral Palsy false Patient's age will be 35 yea rs or older at estimated date of delivery false Pt is hyspanic Thalassemia A or B false Neural tube defect false Congenital anomalies false Down's Syndrome false Kendrick-Sachs disease false Sickle Cell Disease Or Trait false Hemophilia false Muscular Dystrophy false Cystic Fibrosis false [place] false Mental Retardation false Test for Fragile X? false Other inherited genetic or chromosomal disorder false Any other genetic history false Other infection history false Congenital heart disease false FOB - Nationality true cauc FOB - Age true 17 Delivery Information Delivery Date Delivery Type Labor Anesthesia Weeks Gestation Incision Type Labor Labor Length Hrs Delivered By Post Complications Tubal Sterilization Discharge Date Comments 4 Regional-Ep idural 41 Hemorrhage Discharge Information Feeding Method Contraceptive Method Maternal HG B and HCT Levels Ob Episode Information Episode Created Date Number of Fetuses Patient Bloodtype Patient rh Status Prepregnancy Weight lbs Domestic Partner Domestic Partner Phone Father Name Aml Analyst Status 06/28/19 19 1 A Negative 107 Domestic Partner Elder Geronimo CLOSED Fetus Data First Name Last Name Admitted to NICU Weight (g) Sex Living Outcome Pediatric Complications Fetus ID Race Codes Race Delivery Type M [id number] Vaginal ([id number]) Problems Problem Notes Received flu vaccine this se ason. EPDS screen 15- patient states this is related to her hyperemesis symptoms, not depression.On Zantac- UDS positive for amphetamines- prob false positive Problem Name Start Date End Date Resolution Snomed Code Not e Hyperemesis gravidarum 06/28/2018 [id number] Group B Streptococcus carrier [id number] in urine - no culture needed at 36wks. Screening for drug of abuse in urine specimen positive 06/28/2018 [id number] cannabinoi d - 51-A filed hemorrhage 06/28/2018 [id number] 1 2013- states she required blood transfusion. Asthma 06/28/2018 [id number] RhD negative 06/28/2018 [id number] receiv ed rhogam 07/04/18/ will need at 28 weeks as well. History of depression 07/30/2018 [id number] 08 History of anxiety state 07/30/2018 [id number] Genital herpes simplex 06/28/2018 [id number] 2011- only had initial outbreak Adams Calculation Initial Adams Date Initial Exam Date Initial Exam Provider Initial Ultrasound Date Last Menstrual Period Date Ultra Sound Weeks Gestation 01/16/2019 06/28/2018 05/27/2018 04/19/2018 6 Eighteen To Twenty Week Adams Update Ultra Sound Date Fundal Height At Umbil Quickening Date Ultra Sound Latest Weeks Gestation Final Adams Confirmed By Final Adams Confirmed Date Final Adams Date Ultra Sound Latest Days Gestation 08/15/19 19 18 [email or web address] 07/12/2018 01/17/20 19 1 Pre- Flowsheet Flowsheet Date 06/28/2018 Marquez Score Blood Edema Fundus Height Fundus Units Glucose Ketones Leukocytes Nitrite Labor Signs Protein Cervic Dilation Cervic Effacement Cervic Station none Cramping Type Weight in lbs Pre/Post Dialysis Refused BP Diastolic BP Location Tested BP Systolic BP Type Fetus Heart Rate Present Fetus Movement A No Comments PNT: Patent's daughter and F OB's mother present- unplanned, unprevented, wanted . 1st for couple, patient's daughter from previous relationship; shares custody with him. FOB in [employer], stationed in [place]. Nutrition and expected weight gain discussed. Patient stating she is not able to keep any food/liquid down, has been to ER multiple times for hydration. Has tried samples for Bonjesta x1 week with no results. Patient consented to all routine labs. Zika virus reviewed, no plans for either to travel. Genetic testing discussed, patient interested in [id number] and Quad screen for NTD. Advised patient to review information and check insurance coverage, will have set up at [facility] if still interested. TD Flowsheet Date 07/12/2018 Marquez Score Blood Edema Fundus Height Fundus Units Glucose Ketones Leukocytes Nitrite Labor Signs Protein Cervic Dilation Cervic Effacement Cervic Station trace 13 wks 0cm 0% -3 Type Weight in lbs Pre/Post Dialysis Refused Weight 102.634034732948 BP Diastolic BP Location Tested BP Systolic BP Type 62 102 Fetus Heart Rate Present A Absent Fetus Movement A Yes Comments NOB. GC/Pap today. Pt did no t want to state any complaints, gave me the ROS when I asked if she had any. Pt is interested in genetic testing, has some questions about it. YLPatient with no complaints currently. No N/V. Does not want to have Ino deliver her baby or be seen by Ino throughout her . Patient told that there is a 25% chance that Dr. Mckinnon will be the provider production material handler when she delivers and there will be no other options. She said, well I'll just leave then. The patient was told that she could transfer her care to another practice if she did not want care from Dr. Mckinnon. The patient reports that she will think about it. She did not give any reason as to why she did not want to see Dr. Mckinnon. She would like to do [facility] genetics testing. Will order at next visit. Unable to hear FH. Will order US. No VB, pelvic pain, or other issues. Reviewed positive MJ UDS. Patient reports that she has quit and will no longer partake this . GBS pos urine treated. No urinary symptoms. Precautions reviewed. EDC by 6 week and 10 week US, not consistent with LMP // LGI Flowsheet Date 08/09/2018 Marquez Score Blood Edema Fundus Height Fundus Units Glucose Ketones Leukocytes Nitrite Labor Signs Protein Cervic Dilation Cervic Effacement Cervic Station none none neg Type Weight in lbs Pre/Post Dialysis Refused Weight 106.43993747165 BP Diastolic BP Location Tested BP Systolic BP Type 70 100 Fetus Heart Rate Present Fetus Movement A Yes Comments Pt is asking about amnio, I explained we usually do not order by itself slip for Quad given// Pt has minor msk pain, no major concerns. US for anatomy at 18 weeks. Flowsheet Date 08/23/2018 Marquez Score Blood Edema Fundus Height Fundus Units Glucose Ketones Leukocytes Nitrite Labor Signs Protein Cervic Dilation Cervic Effacement Cervic Station none Type Weight in lbs Pre/Post Dialysis Refused BP Diastolic BP Location Tested BP Systolic BP Type 70 100 Fetus Heart Rate Present A 140 Fetus Movement A Yes Comments C/o pain lower abdominal sta bbing, no vb doesn't feel well, nausea but no diarrhea or fever, feels weak hasn't eaten yet today encouraged her to eat regularly. Pt denies ctx or VB, no LOF, starting to feel FM. No acute sx on exam, no dysuria. Pain has not changed since prior to . Separation of amniotic/chorionic membranes noted on US, f/u booked. Flowsheet Date 09/10/2018 Marquez Score Blood Edema Fundus Height Fundus Units Glucose Ketones Leukocytes Nitrite Labor Signs Protein Cervic Dilation Cervic Effacement Cervic Station none 22 cm none neg Type Weight in lbs Pre/Post Dialysis Refused Weight 108.834772798252 BP Diastolic BP Location Tested BP Systolic BP Type 68 110 Fetus Heart Rate Present A Present Fetus Movement A Yes Comments c/o lower pelvic pain some c tx discussed labs coming up// called c/o UCs - resolved on own. Discussed MSK pain, relievers. Flowsheet Date 10/08/2018 Marquez Score Blood Edema Fundus Height Fundus Units Glucose Ketones Leukocytes Nitrite Labor Signs Protein Cervic Dilation Cervic Effacement Cervic Station neg none 26 cm none negative Negative neg Type Weight in lbs Pre/Post Dialysis Refused Weight 113.306500220872 BP Diastolic BP Location Tested BP Systolic BP Type 54 102 Fetus Heart Rate Present A Present Fetus Movement A Yes Comments CBC, glucola, AB screen orde r given with instr. ACOG PTL pamphlet given - precautions reviewed Pt. c/o right pelvic pain that radiates into her lower back and thigh, onset 2 weeks ago - some relief with postion change and heat..Denies marijuana use. Wants to do repeat UDS at next visit. - SW Flowsheet Date 10/29/2018 Marquez Score Blood Edema Fundus Height Fundus Units Glucose Ketones Leukocytes Nitrite Labor Signs Protein Cervic Dilation Cervic Effacement Cervic Station none 28 cm 0cm 0% Type Weight in lbs Pre/Post Dialysis Refused Weight 117.352177213440 BP Diastolic BP Location Tested BP Systolic BP Type 52 100 Fetus Heart Rate Present A Present Fetus Movement A Yes Comments Patient presents today for R hogam injection, administered in R buttock. States for the past week she has been getting very strong irregular ctx, bad menstrual cramping and pressure. States she has been leaking fluid for the past week as well and the pain is just worsening even with bed rest. Denies VB.// Pt c/o LBP, not timing UCs. Reports weeks of leakage . Optical Brightener Maker Helper declined. Amnisure collected. Perineum dry, no pooling. Pt reassured. Doubt PROM, PTL. Collected FFN and GBS but will send GBS only if amnisure positive. Flowsheet Date 10/29/2018 Marquez Score Blood Edema Fundus Height Fundus Units Glucose Ketones Leukocytes Nitrite Labor Signs Protein Cervic Dilation Cervic Effacement Cervic Station Type Weight in lbs Pre/Post Dialysis Refused BP Diastolic BP Location Tested BP Systolic BP Type Fetus Heart Rate Present Fetus Movement Comments Flowsheet Date 11/05/2018 Marquez Score Blood Edema Fundus Height Fundus Units Glucose Ketones Leukocytes Nitrite Labor Signs Protein Cervic Dilation Cervic Effacement Cervic Station trace 29 cm Type Weight in lbs Pre/Post Dialysis Refused Weight 118.982511175986 BP Diastolic BP Location Tested BP Systolic BP Type 60 100 Fetus Heart Rate Present A Present Fetus Movement A Yes Comments has been vomiting again , lo wer back pain and pain with walking , will consider tdap , DCF has asked for a Drug Screen Flowsheet Date 11/19/2018 Marquez Score Blood Edema Fundus Height Fundus Units Glucose Ketones Leukocytes Nitrite Labor Signs Protein Cervic Dilation Cervic Effacement Cervic Station none 32 cm Type Weight in lbs Pre/Post Dialysis Refused Weight 118.893629000238 BP Diastolic BP Location Tested BP Systolic BP Type 60 100 Fetus Heart Rate Present A Present Fetus Movement A Yes Comments pain and pressure , ctx last night few minutes apart stomach tight and pressure declines exam// Tdap today. Discussed UDS- on Zantac, pt denies any use amphetamine- reassured likely false positive. Flowsheet Date 12/03/2018 Marquez Score Blood Edema Fundus Height Fundus Units Glucose Ketones Leukocytes Nitrite Labor Signs Protein Cervic Dilation Cervic Effacement Cervic Station trace 34 cm Type Weight in lbs Pre/Post Dialysis Refused Weight 119.003995341521 BP Diastolic BP Location Tested BP Systolic BP Type 60 110 Fetus Heart Rate Present A Present Fetus Movement A Yes Comments Pt reports some swelling of feet yesterday. Bowels & bladder OK. GBS info given for culture @ 36 weeks. Still dealing with migraines, Seeing spots at times. Unable to leave urine for dip. H/O HSV, please discuss. Plans to use depo for PP B/C, Plans to breastfeed. BDH/O HSV. Will start prophylaxis at 36 weeks GA. Does not want to discuss with family in the room. Still having migraine headaches at times. No evidence of preeclampsia. continue tylenol. Precautions reviewed // LGI Flowsheet Date 12/17/2018 Marquez Score Blood Edema Fundus Height Fundus Units Glucose Ketones Leukocytes Nitrite Labor Signs Protein Cervic Dilation Cervic Effacement Cervic Station trace 35 cm none neg 1cm 60% -2 Type Weight in lbs Pre/Post Dialysis Refused Weight 123.302935528473 BP Diastolic BP Location Tested BP Systolic BP Type 68 110 Fetus Heart Rate Present A Present Fetus Movement A Yes Comments pain with walking , few ctx here and there , still having migraines , wants cx checked asking for RX zantac refill she had +GBS in UC// HSV prophylaxis discussed privately. Rx sent. Pt has tenderness R groin- head easily palpable in area. Flowsheet Date 12/24/2018 Marquez Score Blood Edema Fundus Height Fundus Units Glucose Ketones Leukocytes Nitrite Labor Signs Protein Cervic Dilation Cervic Effacement Cervic Station trace 36 cm none neg Type Weight in lbs Pre/Post Dialysis Refused Weight 123.952103539313 BP Diastolic BP Location Tested BP Systolic BP Type 60 116 Fetus Heart Rate Present A Present Fetus Movement A Yes Comments JASON, pt reports in constant pain, lower abd & across lower back, Not sleeping, staying awake crying from pain. Not new but worse than she had with previous preg. PPD discussed. BD// Taking HSV prophylaxis. Pain mainly RLQ- encouraged use of warmth/cool compresses, body pillow. Could consider IOL after 01/09. Flowsheet Date 12/31/2018 Marquez Score Blood Edema Fundus Height Fundus Units Glucose Ketones Leukocytes Nitrite Labor Signs Protein Cervic Dilation Cervic Effacement Cervic Station trace 37 cm none neg 1cm 60% -2 Type Weight in lbs Pre/Post Dialysis Refused Weight 123.321051440241 BP Diastolic BP Location Tested BP Systolic BP Type 68 102 Fetus Heart Rate Present A Present Fetus Movement A Yes Comments JASON. Pt states lower abd and back pain continues to get worse. Pt would like a cervix check. YLPatient with worsening RLQ pain. MSK in nature but very bothersome. Had reviewed possible induction with Dr. Mckinnon last visit. Will schedule for 39 weeks GA. Precautions reviewed // LGI Flowsheet Date 01/07/2019 Marquez Score Blood Edema Fundus Height Fundus Units Glucose Ketones Leukocytes Nitrite Labor Signs Protein Cervic Dilation Cervic Effacement Cervic Station none 39 cm none neg 1cm 60% -2 Type Weight in lbs Pre/Post Dialysis Refused Weight 123.752498046918 BP Diastolic BP Location Tested BP Systolic BP Type 80 124 Fetus Heart Rate Present A Present Fetus Movement A Yes Comments JASON. No complaints. Pt accep ts cervix check YLScheduled for IOL on 01/09/19. Membranes stripped. Precautions reviewed // LGI Menstrual History Last Menstrual Date Menses Monthly On Bcp Conception Prior Menses Frequency Hcg Plus Date Menarche Onset Age 1104/19/2018 true false 28 9 14 Genetic Screening And Infection History Question Response Note Father of baby will be 50 ye ars or older at estimated date of deliery false Cleft lip/palate false Consanguinity false Cerebral Palsy false Patient's age will be 35 yea rs or older at estimated date of delivery false [place], Thalassemia A or B false Neural tube defect true FOB's Uncle Congenital anomalies false Down's Syndrome true FOB's Uncle Kendrick-Sachs disease false Sickle Cell Disease Or Trait false Hemophilia false Muscular Dystrophy false Cystic Fibrosis false [place]'s [place] false Mental Retardation false Test for Fragile X? 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 Headache or dizziness true Dizzy, hea daches Hyperemesis true Febrile episode false Rubella or varicella false Encephalitis false Radiation false Substance abuse: Alcohol false Non-prescribed drugs true PNV Prescribed drugs true [address] drugs false Change in vision false Urinary complaint false Rash with viral illness false Complications: Vag inal bleeding: true Was seen in ER Physical trauma or surgery false Other exposure to: false Occupational chemicals false Tuberculosis false Plans and Education First Trimester Discussed Date Discussion Item Discussion Note Discuss ed By 06/28/2018 Anticipated course of care td06/28/2018 Alcohol 06/28/2018 Intimate partner violence td uguay2 06/28/2018 Environmental/work hazards t leonagu06/28/2018 Screening for aneuploidy tdu guay06/28/2018 Nutrition counseling ; special diet; dietary precautions (mercury, listeriosis) 06/28/2018 Childbirth classes/hospital facilities td06/28/2018 HIV and other routine tests 06/28/2018 Risk factors identif ied by history tdugu06/28/2018 Weight gain counseling tdugu ay06/28/2018 Exercise td06/28/2018 Teratogens 06/28/2018 Use of any medicatio ns (including supplements, vitamins, herbs, or OTC drugs) td06/28/2018 06/28/2018 Sexual activity 06/28/2018 Tobacco/smoking cess ation counseling (ask, advise, assess, assist, and arrange) 06/28/2018 Illicit/recreational drugs t mauroay2 06/28/2018 Dental care tduguay06/28/2018 Travel td06/28/2018 Seat belt use 06/28/2018 Indications for ultrasonography 06/28/2018 Avoidance of saunas or hot tubs 06/28/2018 Toxoplasmosis precautions (cats/raw meat) Second Trimester Discussed Date Discussion Item Discussion Note Discuss ed By Third Trimester Discussed Date Discussion Item Discussion Note Discuss ed By Delivery Information Delivery Date Delivery Type Labor Anesthesia Weeks Gestation Incision Type Labor Labor Length Hrs Delivered By Post Complications Tubal Sterilization Discharge Date Comments 9 39.1 IRISARI Discharge Information Feeding Method Contraceptive Method Maternal HG B and HCT Levels
--- OUTSIDE RECORDS SUMMARY | 2024-07-16 13:56 | XMS_ITS | Encounter Summary ---
Author Organization [employer] Address [address] [facility] [address] [place] [address] Care Team Providers Care Lipstick Molder Name Role Phone Ibeth Lassiter MD Primary Care Provider [phone] Reason for Visit * Reason Onset Date Comments Appointment Request 05/29/2024 Encounter Details Date Type Department Care Team ([facility] st Contact Info) Description 05/29/2024 Telephone [facility] MEDICINE [address] [place] [address] Ibeth Lassiter MD [address] [place] [address] Appointment Request Social History Tobacco Use Types Packs/Day Years Used Date Smoking Tobacco: Never Passive Smoke Exposure: Never Smokeless Tobacco: Never Alcohol Use Standard Drinks/Week Comments Never 0 (1 standard drink = 0.6 oz pur e alcohol) Depression Answer Date Recorded Patient Health Questionnaire-9 Score 21 06/02/2024 Patient Health Questionnaire-9 Score 21 06/02/2024 Last PHQ-9: Questionnaire Data Not on file 1 Housing Stability Answer Date Recorded What is [...] Date Recorded Patient Health Questionnaire-2 Score 6 06/02/2024 Internet Access Answer Date Recorded Internet Access [...] encounter Miscellaneous Notes * Telephone Encounter - Leana Thomas - 05/29/2024 8:38 AM EST Tc from pt requesting reschedule for 05/29 appt. documented in this encounter Plan of Treatment Upcoming Encounters Date Type Department Care Team (Late st Contact Info) Description 07/24/2024 2:30 PM EST Clinical Support [facility] MED & PEDS [address] [place] [address] Anastasiia Ocampo RN [address] [place] [address] 09/10/2024 11:30 AM EDT Office Visit [facility] MED & PEDS [address] [place] [address] Rosalina Mathews MD [address] [place] [address] documented as of this encounter Visit Diagnoses Not on filedocumented in this encounter Additional Health Concerns Assessment Noted Time PHQ-9 Depression Total Score: 24 024 3:55 PM EDT documented as of this encounter Care Teams Lipstick Molder Relationship Specialty Start Date End Date Ibeth Lassiter MD [address] [place] [address] PCP - General Family Medicine 12/16/21 documented as of this encounter
--- OUTSIDE RECORDS SUMMARY | 2024-07-16 13:56 | XMS_ITS | Clinical Summary ---
Author Organization [facility] Address [address] [place] [address] Care Team Providers Care Authorization Representative Name Role Phone Ibeth Lassiter MD Primary Care Provider [phone] Allergies Active Allergy Reactions Criticality Noted Date Comments Codeine Anaphylaxis High 09/07/2023 Oxycodone Anaphylaxis High 09/07/2023 Penicillins Anaphylaxis High 09/07/2023 Medications Medication Sig Dispensed Refills Start Date End Date Status morphine (MSIR) 30 MG tabletIndications:N ecrotizing pancreatitis,Acute abdominal pain Take 0.5-1 tablets (15-30 mg total) by mouth 4 times daily (every 6 hours) as needed for severe pain. 24 tablet 09/14/2023 Active pregabalin (LYRICA) 100 MG capsuleIndications: Necrotizing pancreatitis,Acute abdominal pain Take 1 capsule (100 mg total) by mouth 3 (three) times a day. 30 capsule 09/14/2023 Active methocarbamol (ROBAXIN) 500 MG tabletIndications:N ecrotizing pancreatitis,Acute abdominal pain Take 2 tablets (1,000 mg total) by mouth 4 (four) times a day as needed for muscle spasms. 60 tablet 09/14/2023 Active apixaban (ELIQUIS) 5 MG tabletIndications:N ecrotizing pancreatitis Take 1 tablet (5 mg total) by mouth 2 (two) times a day. 60 tablet 09/14/2023 Active folic acid (FOLVITE) 1 MG tabletIndications:N ecrotizing pancreatitis Take 1 tablet (1 mg total) by mouth daily. 30 tablet 09/15/2023 Active multivitamin with minerals Tab tabletIndications:N ecrotizing pancreatitis Take 1 tablet by mouth daily. 30 tablet 09/15/2023 Active polyethylene glycol (miraLAx) 17 g packetIndications:N ecrotizing pancreatitis Take 1 packet (17 g total) by mouth daily as needed for constipation. 30 packet 09/14/2023 Active senna-docusate (SENNA-S) 8.6-50 MGIndications:Necro tizing pancreatitis Take 2 tablets by mouth nightly as needed for constipation. 60 tablet 09/14/2023 Active thiamine mononitrate (VITAMIN B-1) 100 MG tabletIndications:N ecrotizing pancreatitis Take 2 tablets (200 mg total) by mouth daily. 60 tablet 09/15/2023 Active calcium carbonate (TUMS) 500 MG chewable tabletIndications:N ecrotizing pancreatitis Chew 1 tablet (500 mg total) 4 (four) times a day as needed for indigestion or heartburn. 09/15/2023 Active Active Problems Problem Noted Date Diagnosed Date Alcohol use disorder 09/11/2023 Acute thrombosis of splenic vein 09/11/2023 Acute pancreatitis with infected necrosis, unspe cified 09/08/2023 Social History Tobacco Use Types Packs/Day Years Used Date Smoking Tobacco: Former Cigarettes Smokeless Tobacco: Never Tobacco Cessation:Counseling Given: Not Answered Alcohol Use Standard Drinks/Week Comments Yes 0 (1 standard drink = 0.6 oz pur e alcohol) 10-12 nips per day [facility] Utilities Answer Date Recorded In the past 12 months has [place], gas, oil, or water [employer] threatened to shut off services in your home? No 09/08/2023 AUDIT-C Answer Date Recorded Q1: How often do you have a drink containing alcohol? 4 or more times a week 09/08/2023 Q2: How many drinks containi ng alcohol do you have on a typical day when you are drinking? 10 or more Q3: How often do you have si x or more drinks on one occasion? Daily or almost daily 09/08/2023 Overall Financial Resource Strain (CARDIA) Answe r Date Recorded How hard is it for you to pa y for the very basics like food, housing, medical care, and heating? Not very hard 09/08/2023 Hunger Vital Sign Answer Date Recorded Within the past 12 months, y ou worried that your food would run out before you got the money to buy more. Never true 09/08/19 24 Within the past 12 months, t he food you bought just didn't last and you didn't have money to get more. Never true 09/08/2023 PRAPARE - Transportation Answer Date Re corded In the past 12 months, has l ack of transportation kept you from medical appointments or from getting medications? No 11/2023 In the past 12 months, has l ack of transportation kept you from meetings, work, or from getting things needed for daily living? No 09/08/2023 Housing Stability Vital Sign Answer Mauricio e Recorded In the last 12 months, was t here a time when you were not able to pay the mortgage or rent on time? No 09/08/2023 In the last 12 months, how many places have you lived? 1 09/08/2023 In the last 12 months, was t here a time when you did not have a steady place to sleep or slept in a half-way (including now)? No 09/08/2023 Sex and Gender Information Value Date Recorded Sex Assigned at Female 09/07/2023 11:13 PM EDT Gender Identity Female 09/07/2023 11:13 PM EDT Sexual Orientation Heterosexual (straight) 09/06 11:13 PM EDT Last Filed Vital Signs Vital Sign Reading Time Taken Comments Blood Pressure 124/74 09/15/2023 8:03 AM EDT Pulse 101 09/15/2023 8:03 AM EDT Temperature 36.6 ??C (97.9 ??F) 09/15/2023 8:03 AM ED T Respiratory Rate 18 09/15/2023 8:03 AM EDT Oxygen Saturation 100% 09/15/2023 8:03 AM EDT Inhaled Oxygen Concentration - - Weight 71.2 kg (156 lb 15.5 oz) 09/10/2023 5:00 AM EDT Height 162.6 cm (5' 4 ) 09/08/2023 4:00 AM EDT Body Mass Index 26.94 09/08/2023 4:00 AM EDT Plan of Treatment Health Maintenance Due Date Last Done Comments Hepatitis C Virus Screening 1995 HIV Screening 2008 DTaP/Tdap/Td Vaccines (1 - Tdap) 2014 Hepatitis B Vaccines (1 of 3 - 19+ 3-dose series) 2014 Pneumococcal Vaccine: Pediat jaskaran (0-5 Years) and At-Risk Patients (6 to 49 Years) (1 of 2 - PCV) 2014 Pap Smear (Ages 21-65) 2016 Influenza Vaccine 01/03/2024 04/04/2011 COVID-19 Vaccine (1 - 2023-2 5 season) 2024 HPV Vaccines Aged Out No longer eligi ble based on patient's age to complete this topic Advance Directives * Full Code (Latest Code Status on File) Date Activated Date Inactivated Comments 09/08/2023 12:13 AM Care Teams Authorization Representative Relationship Specialty Start Date End Date Ibeth Lassiter MD [address] [place] [address] PCP - General Family Medicine 09/07/23
--- OUTSIDE RECORDS SUMMARY | 2024-07-16 13:56 | XMS_ITS | Encounter Summary ---
Author Organization [employer] Address [address] [place] [address] Care Team Providers Care Lapeler Name Role Phone Ibeth Lassiter MD Primary Care Provider [phone] Encounter Details Date Type Department Care Team ([facility] st Contact Info) Description 06/30/2024 Telephone [facility] MED & PEDS [address] [place] [address] Anastasiia Ocampo, EL [address] [place], [place] Social History Tobacco Use Types Packs/Day [...] encounter Miscellaneous Notes * Telephone Encounter - Anastasiia Ocampo RN - 06/30/2024 4:14 PM EST TC back to pt. [facility] appt scheduled for 07/24/24 @ 2:30pm. documented in this encounter Plan of Treatment Upcoming Encounters Date Type Department Care Team (Late st Contact Info) Description 07/24/2024 2:30 PM EST Clinical Support [facility] MED & PEDS [address] [place] [address] Anastasiia Ocampo RN [address] [place] [address] 09/10/2024 11:30 AM EDT Office Visit [facility] MED & PEDS [address] [place] [address] Rosalina Mathews MD [address] [place] [address] documented as of this encounter Visit Diagnoses Not on filedocumented in this encounter Additional Health Concerns Assessment Noted Time PHQ-9 Depression Total Score: 22 025 10:04 AM EST documented as of this encounter Care Teams Lapeler Relationship Specialty Start Date End Date Ibeth Lassiter MD [address] [place] [address] PCP - General Family Medicine 12/16/21 documented as of this encounter
--- OUTSIDE RECORDS SUMMARY | 2024-07-16 13:56 | XMS_ITS | Continuity of Care Document ---
Author Organization [facility] Address [address] [place] [address]- Support Name Relationship Address Phone PETE ACOSTA domestic partner Unknown Unavaila OC Camacho Other Unknown Unavailable Encounter [facility] Date(s): 05/21/24 - 07/11/[address] [address] Attending Physician: James Iyer MD Admitting Physician: James Iyer MD Referring Physician: James Iyer MD Encounter Type: Pre-Outpt Allergies, Adverse Reactions, Alerts No Known Allergies [...] Team Personnel Name: Charmaine Miguel RN Position: [facility] RN Member Role: Primary Care Nurse Name: Briseyda Ramsey RN Position: [facility] RN Member Role: Primary Care Nurse Name: Fifi Dickson Position: [facility] RN Member Role: Primary Care Nurse Name: Briseyda Melton RN Position: [facility] RN Member Role: Primary Care Nurse Name: Iam Noble RN Position: [facility] RN Member Role: Primary Care Nurse Name: Ena Obrien RN Position: [facility] ED RN W/OE and Tasks Member Role: Primary Care Nurse Name: Tammie Zamudio RN Position: S RN Member Role: Primary Care Nurse Name: Dai Pham RN Position: [facility] RN Member Role: Primary Care Nurse Name: Yumiko Ontiveros RN Position: [facility] RN Member Role: Primary Care Nurse Name: Alyssa Abdi RN Position: [facility] RN Member Role: Primary Care Nurse Name: Vinicio Carr RN Position: [facility] RN Member Role: Primary Care Nurse Name: Earle Coyne RN Position: [facility] RN Member Role: Primary Care Nurse Name: Saritha Prado RN Position: [facility] RN Member Role: Primary Care Nurse Name: Micaela Abad RN Position: [facility] RN Member Role: Primary Care Nurse Name: Sudha Black LPN Position: [facility] RN Member Role: Primary Care Nurse Name: Mary Fernandes RN Position: [facility] RN Member Role: Primary Care Nurse Name: Marlon Michelle RN Position: [facility] RN Member Role: Primary Care Nurse Name: Noelle Gill RN Position: [facility] RN Member Role: Primary Care Nurse Name: Tiana Galicia RN Position: [facility] RN Member Role: Primary Care Nurse Name: Divya Aguilar RN Position: [facility] RN Member Role: Primary Care Nurse Name: Doreen Doe LPN Position: [facility] RN Member Role: Primary Care Nurse Name: Rosa Rahman RN Position: [facility] RN Member Role: Primary Care Nurse Name: Nelda Martin LPN Position: [facility] RN Member Role: Primary Care Nurse Name: Cory Parker RN Position: [facility] RN Member Role: Primary Care Nurse Care Team Related Persons Name: OC SANCHEZ Name: PETE ACOSTA Insurance Providers Guarantor name: CORRINE HILL Health Plan Information #: 1 Payer: [employer] Member Number: [id number] Policy Number: NA Group Number: NA Health Plan Information #: 2 Payer: [employer] Member Number: NA Policy Number: NA Group Number: NA
--- OUTSIDE RECORDS SUMMARY | 2024-07-16 13:56 | XMS_ITS | Continuity of Care Document ---
Author Organization [facility] [place] [address] [facility] [address] [place] [address]- Support Name Relationship Address Phone PETE ACOSTA domestic partner Unknown Unavaila ble OC SANCHEZ Other Unknown Unavailable Encounter [facility] Date(s): 05/23/24 - 06/22/[address] [place], [place] [address] Attending Physician: Moody Buck Admitting Physician: Moody Buck Referring Physician: Admtr ArTerrence Encounter Type: Triage Allergies, Adverse Reactions, Alerts [...] EST, 05/25/24 1:58:00 PM EST, REC Powder, [id number], Partial fill upon patientrequest if the prescription [...] Care Nurse Name: Briseyda Ramsey RN Position: [facility] RN Member Role: Primary Care Nurse Name: Fifi Dickson Position: [facility] RN Member Role: Primary Care Nurse Name: Briseyda Melton RN Position: [facility] RN Member Role: Primary Care Nurse Name: Iam Noble RN Position: [facility] RN Member Role: Primary Care Nurse Name: Ena Obrien RN Position: [facility] ED RN W/OE and Tasks Member Role: Primary Care Nurse Name: Tammie Zamudio RN Position: [facility] RN Member Role: Primary Care Nurse Name: Dai Pham RN Position: [facility] RN Member Role: Primary Care Nurse Name: Yumiko Ontiveros RN Position: [facility] RN Member Role: Primary Care Nurse Name: Alyssa Abdi RN Position: [facility] RN Member Role: Primary Care Nurse Name: Vinicio Carr RN Position: [facility] RN Member Role: Primary Care Nurse Name: Earle Coyne RN Position: [facility] RN Member Role: Primary Care Nurse Name: Saritha Prado RN Position: [facility] RN Member Role: Primary Care Nurse Name: Micaela Abad RN Position: [facility] RN Member Role: Primary Care Nurse Name: Sudha Black LPN Position: [facility] RN Member Role: Primary Care Nurse Name: Mary Fernandes RN Position: [facility] RN Member Role: Primary Care Nurse Name: Marlon Michelle RN Position: [facility] RN Member Role: Primary Care Nurse Name: Noelle Gill RN Position: [facility] RN Member Role: Primary Care Nurse Name: Tiana Galicia RN Position: [facility] RN Member Role: Primary Care Nurse Name: Divya Aguilar RN Position: [facility] RN Member Role: Primary Care Nurse Name: Doreen Doe LPN Position: [facility] RN Member Role: Primary Care Nurse Name: Rosa Rahman RN Position: [facility] RN Member Role: Primary Care Nurse Name: Nelda Martin LPN Position: [facility] RN Member Role: Primary Care Nurse Name: Cory Parker RN Position: [facility] RN Member Role: Primary Care Nurse Care Team Related Persons Name: OC SANCHEZ Name: PETE ACOSTA Insurance Providers Guarantor name: [facility] Information #: 1 Payer: [employer] Member Number: NA Policy Number: NA Group Number: NA
--- OUTSIDE RECORDS SUMMARY | 2024-07-16 13:56 | XMS_ITS | Encounter Summary ---
Author Organization [employer] Address [address] [facility] 7t [place] [address] Care Team Providers Care Air Conditioning Coil Assembler Name Role Phone Ibeth Lassiter MD Primary Care Provider [phone] Reason for Visit * Reason Onset Date Comments Call Back Request 11/06/2023 Encounter Details Date Type Department Care Team ([facility] st Contact Info) Description 11/06/2023 Telephone [facility] CHC MED & PEDS [address] [place], [place] [id number] Ibeth Lassiter MD [address] [place] [address] Call Back Request Social History Tobacco Use Types Packs/Day [...] encounter Miscellaneous Notes * Telephone Encounter - Wing Francisco Javier RN - 11/07/2023 10:52 AM EDT Tc to pt regarding message below. Pt understands that she will get in contact with surgeon office to get the tube removed. Has appt tomorrow with PCP to check. Also scheduled Uber for pt to get to and from visit. Confirmed pt's phone number and address. Pt verbalized understanding and agreement with plan. * Telephone Encounter - Jayla Kauffman - 11/06/2023 12:43 PM EDT Tc from pt requesting to speak with a nurse in regards to tube removal for a pancreatic cyst. States was advised to contact PCP or surgeons office to discuss removal. Please contact pt at [phone] documented in this encounter Plan of Treatment Upcoming Encounters Date Type Department Care Team (Late st Contact Info) Description 07/24/2024 2:30 PM EST Clinical Support [facility] MED & PEDS [address] [place] [address] Anastasiia Ocampo, RN [address] [place] [address] 09/10/2024 11:30 AM EDT Office Visit [facility] CHC MED & PEDS [address] [place] [address] Rosalina Matehws MD [address] [place] [address] documented as of this encounter Visit Diagnoses Not on filedocumented in this encounter Additional Health Concerns Assessment Noted Time PHQ-9 Depression Total Score: 14 023 10:26 AM EDT documented as of this encounter Care Teams Air Conditioning Coil Assembler Relationship Specialty Start Date End Date Ibeth Lassiter MD [address] [place] [address] PCP - General Family Medicine 12/16/21 documented as of this encounter
--- OUTSIDE RECORDS SUMMARY | 2024-07-16 13:57 | XMS_ITS | Encounter Summary ---
Author Organization [employer] Address [address] [facility] 7t [place] [address] Care Team Providers Care Beauty Director Name Role Phone Ibeth Lassiter MD Primary Care Provider [phone] Reason for Visit * Reason Onset Date Comments Med Refill 02/07/2024 Encounter Details Date Type Department Care Team (Late st Contact Info) Description 02/07/2024 Refill [facility] MED & PEDS [address] [place] [address] Ibeth Lassiter MD [address] [place] [address] Acute necrotizing pancreatitis Social History Tobacco Use [...] [facility] MED & PEDS [address] [place] [address] Anastasiia Ocampo RN [address] [place] [address] 09/10/2024 11:30 AM EDT Office Visit [facility] MED & PEDS [address] [place] [address] Rosalina Mathews MD [address] [place] [address] documented as of this encounter Visit Diagnoses Diagnosis Acute necrotizing pancreatitis Acute pancreatitis documented in this encounter Additional Health Concerns Assessment Noted Time PHQ-9 Depression Total Score: 24 024 3:55 PM EDT documented as of this encounter Care Teams Beauty Director Relationship Specialty Start Date End Date Ibeth Lassiter MD [address] [place] [address] PCP - General Family Medicine 12/16/21 documented as of this encounter
--- OUTSIDE RECORDS SUMMARY | 2024-07-16 13:57 | XMS_ITS | Encounter Summary ---
Author Organization [employer] Address [address] [facility] 7t [place] [address] Care Team Providers Care Medium Cycle Salesperson Name Role Phone Ibeth Lassiter MD Primary Care Provider [phone] Reason for Visit * Reason Onset Date Comments Med Refill 02/15/2024 Encounter Details Date Type Department Care Team (Late st Contact Info) Description 02/15/2024 Refill [facility] MED & PEDS [address] [place] [address] Ibeth Lassiter MD [address] [place] [address] Acute necrotizing pancreatitis Social History Tobacco Use [...] encounter Miscellaneous Notes * Telephone Encounter - Ibeth Lassiter MD - 02/25/2024 3:42 PM EDT Patient was sent precription 1 hr ago * Telephone Encounter - Anastasiia Ocampo RN - 02/25/2024 3:10 PM EDT TC back to pt. PT requesting a refill. State she;ll discuss the taper with PCP at the appt on 02/29/24. documented in this encounter Plan of Treatment Upcoming Encounters Date Type Department Care Team (Late st Contact Info) Description 07/24/2024 2:30 PM EST Clinical Support [facility] MED & PEDS [address] [place] [address] Anastasiia Ocampo RN [address] [place] [address] 09/10/2024 11:30 AM EDT Office Visit [facility] MED & PEDS [address] [place] [address] Rosalina Mathews MD [address] [place] [address] documented as of this encounter Visit Diagnoses Diagnosis Acute necrotizing pancreatitis Acute pancreatitis documented in this encounter Additional Health Concerns Assessment Noted Time PHQ-9 Depression Total Score: 24 024 3:55 PM EDT documented as of this encounter Care Teams Medium Cycle Salesperson Relationship Specialty Start Date End Date Ibeth Lassiter MD [address] [place] [address] PCP - General Family Medicine 12/16/21 documented as of this encounter
[2024-07-16 14:29] VITALS: BP 100/68; PULSE 82; RESP 16; TEMP 36.6; O2SAT 97
[2024-07-16] MEDS: Morphine Sulfate 4 MG/ML CARTRIDGE IVPUSH ×2 (14:33→16:15)
[2024-07-16 14:57] LABS: HCG Quantitative < 2 mIU/mL
[2024-07-16] MEDS: 0.9 % Sodium Chloride 1,000 ML 999 ML IV (16:15)
[2024-07-16] MEDS: HYDROmorphone HCl 1 MG/ML SYRINGE IVPUSH (17:39)
--- NOTE | 2024-07-16 18:50 | P.HPHOSP_ITS ---
History of Present Illness Date of Service: 07/16/24 Chief Complaint: abd pain 28F PMH alcohol dependence now sober since 09/21/2022, chronic alcoholic pancreatitis, splenic/portal vein thrombosis, history of necrotizing pancreatitis requiring IR percutaneous drainage, complicated by disconnected pancreatic duct syndrome, presented with epigastric pain. Patient was recently discharged 07/06/2024 for similar presentation due to chronic pancreatitis. Was also treated for urinary tract infection at that time. Presented again to ED 07/11/2024 and discharged home. And now coming again as symptoms have not resolved. Patient reports severe pain not improved by MS Contin 45 daily and Creon. No significant lab abnormalities, no fever or chills, denies dysuria Review of Systems 2 Review of Systems: Yes all other systems are reviewed and are negative [facility] Medical History Alcohol abuse Necrotizing pancreatitis Benign tumor of breast Alcohol abuse Asthma Anxiety Surgical History No history of previous surgery Social History Household Members: Family Housing: House Do you presently have visiting nurse or other home services: No Alcohol intake: former Patient Tobacco Use Status: Never used Tobacco Substance Use Type: Marijuana Advance Directives: No Advance Directives Information Provided: Yes Do you have a plan to hurt others: No Plan service: No Meds Allergies Allergy/AdvReac Type Severity Reaction Status Date / Time No Known Allergies Allergy Verified 07/16/24 06:40 Active Medications: Current Medications Hydromorphone HCl (Hydromorphone Hcl 1 Mg/Ml Syringe) 1 mg IVPUSH Q3H PRN; Protocol PRN Reason: Pain, Severe (Pain Scale 7-10) Hydroxyzine HCl (Hydroxyzine Hcl 50 Mg Tablet) 50 mg PO Q6H PRN PRN Reason: Anxiety Morphine Sulfate (Morphine Sulfate Er 30 Mg Tablet.Er) 30 mg PO Q12H [facility] Olanzapine (Olanzapine 10 Mg Tablet) 20 mg PO BEDTIME [facility] Home Medications ?Medication ?Instructions ?Recorded ?Confirmed ?Last Taken ?Type bismuth subsalicylate 262 mg 2 tab PO QID 07/05/24 07/05/24 Unknown History chewable tablet hydroxyzine pamoate 50 mg capsule 50 mg PO Q6H PRN anxiety 07/05/24 07/05/24 Unknown History ibuprofen 800 mg tablet 800 mg PO Q8H PRN Pain 07/05/24 07/05/24 Unknown History metronidazole 500 mg tablet 500 mg PO Q8H 07/05/24 07/05/24 Unknown History mirtazapine 15 mg tablet 15 mg PO BEDTIME 07/05/24 07/05/24 Unknown History morphine 15 mg immediate release 22.5 mg PO Q12H 07/05/24 07/05/24 07/04/24 History tablet olanzapine 20 mg disintegrating 20 mg PO BEDTIME 07/05/24 07/05/24 Unknown History tablet pantoprazole 40 mg tablet,delayed 40 mg PO BID PRN Heartburn 07/05/24 07/05/24 Unknown History release pregabalin 100 mg capsule 100 mg PO BID 07/05/24 07/05/24 07/04/24 History tetracycline 500 mg capsule 500 mg PO Q6H 07/05/24 07/05/24 Unknown History tramadol 50 mg tablet 50 mg PO Q6H PRN pain 07/05/24 07/05/24 Unknown History meloxicam 15 mg tablet 15 mg DAILY 07/16/24 Unknown History Physical Exam 2 Vital Signs and Narrative: Vital Signs: Last Vital Signs Temp 97.9 F 07/16/24 14:29 Pulse 82 07/16/24 14:29 Resp 16 07/16/24 14:29 BP 100/68 07/16/24 14:29 Pulse Ox 97 07/16/24 14:29 O2 Del Method Room Air 07/16/24 14:29 BMI result Body Mass Index 21.2 General: AO X 3, no acute distress Resp: CTA bilateral, no accessory muscles used CVS: S1,S2,RRR GI: soft, epigastrum tender, non distended Neuro: motor grossly intact, alert Psych: appropriate affect, appropriate insight Results Labs 07/16/24 07:07 07/16/24 07:07 Labs: Laboratory Results - last 24 hr 07/16/24 07:07 MCV 77.0 L MCH 24.8 L MCHC 32.1 RDW 14.8 Plt Count 309 MPV 10.2 Immature Gran % (Auto) 0.1 Neut % (Auto) 64.9 Lymph % (Auto) 28.2 [place] % (Auto) 5.5 Eos % (Auto) 0.7 Baso % (Auto) 0.6 Lymph # (Auto) 1.9 [place] # (Auto) 0.4 Eos # (Auto) 0.1 Baso # (Auto) 0.0 Abs Immat Gran (auto) 0.01 Absolute Neuts (auto) 4.3 Absolute Nucleated RBC 0.000 Nucleated RBC % (auto) 0.0 Anion Gap 12 Estim Creat Clear Calc 106.3 Estimated GFR > 60 Random Glucose 135 H Calcium 8.8 Total Bilirubin 0.2 AST 21 ALT 26 Alkaline Phosphatase 159 H Total Protein 7.6 Albumin 4.4 Lipase 6 L Beta HCG, Quant < 2 Imaging Radiologist's Impressions: Impressions Abdomen Ultrasound 07/16/24 15:02 IMPRESSION: Status post cholecystectomy. No hydronephrosis in either kidney. No ascites. Up to normal limits spleen size. Normal liver. Inadequate evaluation of the pancreas. Electronically signed by: Ryan Wilkins MD 07/16/2024 03:28 PM [facility] Assessment and Plan (1) Chronic pancreatitis: Status: Acute Plan 28F PMH alcohol dependence now sober since 09/21/2022, chronic alcoholic pancreatitis, splenic/portal vein thrombosis, history of necrotizing pancreatitis requiring IR percutaneous drainage, complicated by disconnected pancreatic duct syndrome, presented with epigastric pain Chronic alcoholic pancreatitis Titrate pain meds Advance diet as tolerated Appears to be hydrating well we will hold off on IV fluids continue creon DVT prophylaxis Lovenox Full Code Quality Stroke Does the patient have a stroke diagnosis?: No VTE Prior VTE?: No VTE Risk Level:: Medical - moderate - high VTE Device Contraindication: Treatment Not Indicated VTE Drug Contraindication: N/A - Med Ordered
--- NOTE | 2024-07-16 19:13 | PHA.MEDREC ---
Addendum entered by Lazarus Colón 07/16/24 19:16: reviewed Original Note: Pharmacy Consult ? Medication Reconciliation Pharmacy has completed the medication reconciliation. Spoke with patient and she confirmed her medications. Patient confirmed she is no longer taking any of the Antibiotics recently prescribed to her. She also confirmed the Morphine 15mg tabs and confirmed she is taking 1 1/2 tab (22.5mg) every 12 hours. She confirmed she took her medications last yesterday.
[2024-07-16] MEDS: Morphine Sulfate ER 30 MG TABLET.ER PO (20:48)
[2024-07-16] MEDS: OLANZapine 10 MG TABLET 20 MG PO (20:48)
[2024-07-16] MEDS: Mirtazapine 15 MG TABLET PO (20:48)
[2024-07-16] MEDS: Pregabalin 100 MG CAPSULE PO (20:48)
[2024-07-16 22:00] VITALS: BP 112/82; PULSE 89; RESP 16; TEMP 36.7; O2SAT 98
[2024-07-17] VITALS (8 sets, daily range): BP systolic 98–116; BP diastolic 60–66; PULSE 73–96; RESP 16–18; TEMP 36.2–36.9; O2SAT 94–100
[2024-07-17] MEDS: HYDROmorphone HCl 1 MG/ML SYRINGE IVPUSH ×5 (03:24→19:22)
[2024-07-17 06:01] LABS: Anion Gap 11 (12-20); Blood Urea Nitrogen 8 mg/dL (9-16); Calcium 8.6 mg/dL (8.4-10.2); Carbon Dioxide 23 mmol/L (22-29); Chloride 112 mmol/L (96-108); Creatinine Clr Calc Pharmacy 107.9; Estimated Glomerular Filt Rate > 60; Glucose Random 138 mg/dL (60-115); Potassium 3.7 mmol/L (3.3-5.1); Sodium 142 mmol/L (135-145)
[2024-07-17 06:19] LABS: Hematocrit 36.2 % (37.0-47.0); Hemoglobin 11.5 g/dl (12.0-16.0); Mean Corpuscular HGB Conc 31.8 g/dl (31.0-35.0); Mean Corpuscular Volume 78.7 fL (80.0-98.0); Mean Platelet Volume 11.3 fL (9.4-12.3); Platelet Count 248 X10*3/uL (160-400); White Blood Count 4.9 X10*3/uL (4.8-10.8)
[2024-07-17] MEDS: Omeprazole 40 MG CAPSULE.DR PO ×2 (06:37→16:02)
[2024-07-17] MEDS: Morphine Sulfate ER 30 MG TABLET.ER PO ×2 (06:38→18:43)
[2024-07-17] MEDS: Pregabalin 100 MG CAPSULE PO ×2 (08:44→20:16)
[2024-07-17] MEDS: Lipase/Prot/Amylase 24/76/120K 1 CAP CAPSULE.DR PO ×3 (08:44→16:02)
[2024-07-17] MEDS: Enoxaparin Sodium 40 MG/0.4 ML SYRINGE SUBCUT (08:45)
[2024-07-17] MEDS: 0.9 % Sodium Chloride Flush 3 ML SYRINGE IVFLUSH ×2 (08:45→14:23)
--- NOTE | 2024-07-17 09:18 | HO.PM.IMPN ---
Subjective Subjective Date of Service: 07/17/24 Interval History: still with pain Physical Exam Vital Signs: Vital Signs: Last Vital Signs Temp 97.8 F 07/17/24 06:36 Pulse 76 07/17/24 06:36 Resp 16 07/17/24 06:36 BP 98/61 07/17/24 06:36 Pulse Ox 100 07/17/24 06:36 O2 Del Method Room Air 07/17/24 06:36 BMI result Body Mass Index 21.2 General: AO X 3, no acute distress Resp: CTA bilateral, no accessory muscles used CVS: S1,S2,RRR GI: soft, tender, non distended Neuro: motor grossly intact, alert Psych: appropriate affect, appropriate insight Objective Data Active Medications Acetaminophen (Acetaminophen 325 Mg Tablet) 650 mg PO Q6H PRN PRN Reason: Pain, Mild 1-3,fever,headache Lipase/Protease/Amylase (Lipase/Prot/Amylase 24/76/120k 1 Cap Capsule.Dr) 1 cap PO TIDWM [facility] Last Admin: 07/17/24 08:44 Dose: 1 cap Documented By: ELIJAH Calcium Carbonate (Calcium Carbonate 750 Mg Tab.Chew) 750 mg PO Q4H PRN PRN Reason: Heartburn Enoxaparin Sodium (Enoxaparin Sodium 40 Mg/0.4 Ml Syringe) 40 mg SUBCUT Q24H [facility] Last Admin: 07/17/24 08:45 Dose: 40 mg Documented By: ELIJAH Hydromorphone HCl (Hydromorphone Hcl 1 Mg/Ml Syringe) 1 mg IVPUSH Q3H PRN; Protocol PRN Reason: Pain, Severe (Pain Scale 7-10) Last Admin: 07/17/24 08:45 Dose: 1 mg Documented By: ELIJAH Hydroxyzine HCl (Hydroxyzine Hcl 50 Mg Tablet) 50 mg PO Q6H PRN PRN Reason: Anxiety Magnesium Hydroxide (Milk Of Magnesia 30 Ml Oral.Susp) 30 ml PO DAILY PRN PRN Reason: Constipation Melatonin (Melatonin 3 Mg Tablet) 6 mg PO BEDTIME PRN PRN Reason: Insomnia Mirtazapine (Mirtazapine 15 Mg Tablet) 15 mg PO BEDTIME [facility] Last Admin: 07/16/24 20:48 Dose: 15 mg Documented By: HAI Morphine Sulfate (Morphine Sulfate Er 30 Mg Tablet.Er) 30 mg PO Q12H [facility] Last Admin: 07/17/24 06:38 Dose: 30 mg Documented By: MARCIALOPEShaina Olanzapine (Olanzapine 10 Mg Tablet) 20 mg PO BEDTIME [facility] Last Admin: 07/16/24 20:48 Dose: 20 mg Documented By: HAI Omeprazole (Omeprazole 40 Mg Capsule.Dr) 40 mg PO BID@0630,1630 [facility] Last Admin: 07/17/24 06:37 Dose: 40 mg Documented By: MARCIALOPEB Pregabalin (Pregabalin 100 Mg Capsule) 100 mg PO BID [facility] Last Admin: 07/17/24 08:44 Dose: 100 mg Documented By: ELIJAH Sodium Chloride (0.9 % Sodium Chloride Flush 3 Ml Syringe) 3 ml IVFLUSH QSHIFT [facility] Last Admin: 07/17/24 08:45 Dose: 3 ml Documented By: ELIJAH Labs 07/17/24 05:08 07/17/24 05:08 Labs: Laboratory Results - last 24 hr 07/16/24 07/17/24 07:07 05:08 MCV 78.7 L MCH 25.0 L MCHC 31.8 RDW 15.0 Plt Count 248 MPV 11.3 Absolute Nucleated RBC 0.000 Nucleated RBC % (auto) 0.0 Anion Gap 11 L Estim Creat Clear Calc 107.9 Estimated GFR > 60 Random Glucose 138 H Calcium 8.6 Beta HCG, Quant < 2 Assessment and Plan (1) Chronic pancreatitis: Status: Acute Plan 28F H alcohol dependence now sober since 09/21/2022, chronic alcoholic pancreatitis, splenic/portal vein thrombosis, history of necrotizing pancreatitis requiring IR percutaneous drainage, complicated by disconnected pancreatic duct syndrome, presented with epigastric pain Chronic alcoholic pancreatitis Titrate pain meds continue creon DVT prophylaxis Lovenox Full Code reason for continued hospitalization:still with pain Quality Stroke Does the patient have a stroke diagnosis?: No VTE Prior VTE?: No VTE Risk Level:: Medical - moderate - high VTE Device Contraindication: Treatment Not Indicated VTE Drug Contraindication: N/A - Med Ordered
--- NOTE | 2024-07-17 16:12 | MHC.CM.PN ---
PT REPORTS SHE LIVES WITH HER [place] AND 3 CHILDREN SHE IS INDEPENDENT WITH CARE AND HAS NO DME OR SERVICES PT IS NOT INTERESTED IN COMPLETING A HCP PCP: ARIC [facility]Y OBSERVATION NOTICE DELIVERED DCP: HOME NO SERVICES VIA PRIVATE TRANSPORT
[2024-07-17] MEDS: OLANZapine 10 MG TABLET 20 MG PO (20:16)
[2024-07-17] MEDS: Mirtazapine 15 MG TABLET PO (20:16)
[2024-07-18 03:24] VITALS: BP 113/77; PULSE 79; RESP 18; TEMP 36.3; O2SAT 98
[2024-07-18] MEDS: Omeprazole 40 MG CAPSULE.DR PO (06:39)
[2024-07-18 06:42] VITALS: BP 93/61; PULSE 73
[2024-07-18 07:28] VITALS: BP 102/58; PULSE 78; RESP 18; TEMP 36.7; O2SAT 98
[2024-07-18] MEDS: Morphine Sulfate ER 30 MG TABLET.ER PO (07:56)
[2024-07-18] MEDS: Pregabalin 100 MG CAPSULE PO (07:57)
[2024-07-18] MEDS: 0.9 % Sodium Chloride Flush 3 ML SYRINGE IVFLUSH ×2 (07:57)
[2024-07-18] MEDS: Enoxaparin Sodium 40 MG/0.4 ML SYRINGE SUBCUT (07:58)
[2024-07-18] MEDS: Lipase/Prot/Amylase 24/76/120K 1 CAP CAPSULE.DR PO (07:58)
--- NOTE | 2024-07-18 09:00 | PM.DS ---
DS: Providers Provider Date of Service: 07/18/24 Date of admission: 07/16/24 18:49 Date of discharge: 07/18/24 Primary care physician: Ibeth Lassiter MD DS: Diagnosis Discharge Diagnosis (1) Chronic pancreatitis: Status: Acute DS: Summary Hospital Course Hospital Course: from initial hpi: 28F PMH alcohol dependence now sober since 09/21/2022, chronic alcoholic pancreatitis, splenic/portal vein thrombosis, history of necrotizing pancreatitis requiring IR percutaneous drainage, complicated by disconnected pancreatic duct syndrome, presented with epigastric pain. Patient was recently discharged 07/06/2024 for similar presentation due to chronic pancreatitis. Was also treated for urinary tract infection at that time. Presented again to ED 07/11/2024 and discharged home. And now coming again as symptoms have not resolved. Patient reports severe pain not improved by MS Contin 45 daily and Creon. No significant lab abnormalities, no fever or chills, denies dysuria hospital course: Patient was admitted for chronic alcoholic pancreatitis with intractable pain. She was restarted on her MS Contin and given Dilaudid for breakthrough. As well as continued on Creon. Symptoms improved and will be discharged home. Time Attestation Discharge Coordination Time (in mins): 35 Quality: Safe Use of Opioids Does Pt have an Active Cancer Diagnosis on the Problem List?: No Quality: Stroke Does the patient have a stroke diagnosis?: No Physical Exam Vital Signs: Vital Signs: Last Vital Signs Temp 98.1 F 07/18/24 07:28 Pulse 78 07/18/24 07:28 Resp 18 07/18/24 07:28 BP 102/58 L 07/18/24 07:28 Pulse Ox 98 07/18/24 07:28 O2 Del Method Room Air 07/18/24 07:28 BMI result Body Mass Index 8.4 General: AO X 3, no acute distress Resp: CTA bilateral, no accessory muscles used CVS: S1,S2,RRR GI: soft, non tender, non distended Neuro: motor grossly intact, alert Psych: appropriate affect, appropriate insight DS: Data Data Completed and Pending Completed studies during hospitalization [Text1]: Procedures Detoxification Services for Substance Abuse Treatment (09/04/23) Discharge Plan Discharge Anticipated Discharge Date/Time: 07/18/24 08:54 Patient Disposition: Home, Self-Care Discharge Diagnosis: Chronic pancreatitis Referrals: Ibeth Lassiter MD [Primary Care Provider] - 1 Week Discharge Medications: [place] 24,000-76,000 -120,000 unit Capsule,Delayed Release(Dr/Ec) 1 cap PO TIDWM Qty: 270 0RF oxycodone 5 mg tablet 5 mg PO Q8H PRN (Reason: pain (scale score 7-10)) Qty: 14 0RF Rx Instructions: Partial Fill upon patient request. Continued hydroxyzine pamoate 50 mg capsule 50 mg PO Q6H PRN (Reason: anxiety) tramadol 50 mg tablet 50 mg PO Q6H PRN (Reason: pain) olanzapine 20 mg tablet,disintegrating 20 mg PO BEDTIME mirtazapine 15 mg tablet 15 mg PO BEDTIME pregabalin 100 mg capsule 100 mg PO BID morphine 15 mg tablet 22.5 mg PO Q12H Qty: 90 0RF ondansetron 4 mg tablet,disintegrating 4 mg PO Q8H PRN (Reason: nausea and vomiting) Qty: 7 0RF Changed pantoprazole 40 mg tablet,delayed release (DR/EC) 40 mg PO DAILY Qty: 30 0RF Discontinued ibuprofen 800 mg tablet 800 mg PO Q8H PRN (Reason: Pain) meloxicam 15 mg tablet 15 mg DAILY Discharge Orders: Discharge Order (Routine); Ordered 07/18/24 Ordered By: Oscar Murillo Diet: Advance to usual diet Activity on Discharge: As tolerated Stand Alone Forms: Patient Portal Discharge page Print Language: Croatian Care Plan Goals: manage chronic pancreatitis Health Concerns: chronic pancreatitis Plan of Treatment: take meds as prescribed, avoid nsaids Assessment: see above
[2024-07-18] MEDS: HYDROmorphone HCl 1 MG/ML SYRINGE IVPUSH (09:38)
[2024-07-18 10:20] VITALS: BP 128/62; PULSE 73; RESP 18; TEMP 36.6; O2SAT 97
--- NOTE | 2024-07-18 10:33 | MHC.CM.PN ---
Patient medically cleared for dc home self care via [employer].
== END 2024-07-18 11:56 | disposition home or self-care (01) ==
LOC: HO.ED 18:31 → HO.EDOVER 18:53 → HO.S3 07-17 12:41
PROVIDERS: Physician Assistant Medical; Admitting Provider Internal Medicine; Emergency Provider Emergency Medicine; PCP Family Medicine; Visit Provider Internal Medicine
DX: K86.1 Other chronic pancreatitis (principal); R10.13 Epigastric pain; R10.12 Left upper quadrant pain; R19.7 Diarrhea, unspecified; R11.0 Nausea; J45.909 Unspecified asthma, uncomplicated; F41.9 Anxiety disorder, unspecified; Z79.899 Other long term (current) drug therapy
CPT/HCPCS: 36415; 76700; 80048; 80053; 83690; 84702; 85025; 85027; 96361; 96372; 96374; 96375; 96376; 99221; 99285; J1171; J1650; J2270

== ENCOUNTER → 2024-07-16 14:24 | Outpatient (BNV) | payer MEDICAID, SELFPAY | PROVIDERS: Emergency Provider Emergency Medicine; PCP Family Medicine; Visit Provider Radiology Diagnostic Radiology | DX: R10.12 Left upper quadrant pain (principal) | CPT/HCPCS: 76700 ==

== ENCOUNTER → 2024-07-16 18:49 | Outpatient (BNV) | payer MEDICAID, SELFPAY | PROVIDERS: Admitting Provider Internal Medicine; Emergency Provider Emergency Medicine; PCP Family Medicine; Visit Provider Internal Medicine | DX: K86.1 Other chronic pancreatitis (principal) | CPT/HCPCS: 99222; 99232 ==

== ENCOUNTER 2024-07-30 19:53 | Inpatient (IN) | payer MEDICAID, SELFPAY ==
--- NOTE | ~2024-07-30 | CT_ITS ---
CLINICAL HISTORY: pain, pancreatitis CT abdomen and pelvis with contrast Comparison: MR - MR ABDOMEN WO/W CON - 07/06/24 09:42 EST Findings: No consolidation or effusion. Absent pancreatic tail. No peripancreatic inflammatory changes or pancreatic ductal dilatation. Cholecystectomy. No abnormal biliary ductal dilatation. Normal liver, spleen, adrenal glands, and kidneys. No urinary tract calculus, obstruction, or inflammation. Normal stomach, small bowel, and colon. No free fluid or free air. Normal uterus and ovaries. Bones intact. IMPRESSION: No findings of acute pancreatitis. No acute abnormality otherwise. This document has been electronically signed by: Jessee Eng MD on 07/31/2024 01:34:17
[2024-07-30 20:11] VITALS: BP 126/72; PULSE 79; RESP 19; TEMP 36.6; O2SAT 98; BMI 22.3
--- NOTE | 2024-07-30 20:13 | ECG_ITS ---
Test Reason : ABD PAIN Blood Pressure : */* mmHG Vent. Rate : 77 BPM Atrial Rate : 77 BPM P-R Int : 134 ms QRS Dur : 80 ms QT Int : 384 ms P-R-T Axes : 67 67 -11 degrees QTcB Int : 434 ms Normal sinus rhythm Nonspecific T wave abnormality Abnormal ECG When compared with ECG of 29-Dec-2023 09:35, T wave inversion less evident in Anterior leads Referred By: Gentry Gamboa Electronically Signed By: Ilia Monte
--- NOTE | 2024-07-30 20:14 | ED_ITS ---
HPI - General Adult General Chief complaint: Abdominal Pain Stated complaint: pancreatic issue Time Seen by Provider: 07/31/24 00:34 Source: patient Limitations: no limitations History of Present Illness ED Provider: Katarzyna Hui PA-C HPI narrative: 49-year-old female with a history of prior alcohol dependence now sober since 09/21/2022, chronic alcoholic pancreatitis, splenic/portal vein thrombosis, history of necrotizing pancreatitis requiring IR percutaneous drainage, complicated by disconnected pancreatic duct syndrome, presented with epigastric pain. Associated nausea vomiting diarrhea with the oily stools. Patient was not been able to tolerate her home medications. Denies fever. Related Data Home Medications ?Medication ?Instructions ?Recorded ?Confirmed hydroxyzine pamoate 50 mg capsule 50 mg PO Q6H PRN anxiety 07/05/24 07/16/24 mirtazapine 15 mg tablet 15 mg PO BEDTIME 07/05/24 07/16/24 olanzapine 20 mg disintegrating 20 mg PO BEDTIME 07/05/24 07/16/24 tablet pregabalin 100 mg capsule 100 mg PO BID 07/05/24 07/16/24 tramadol 50 mg tablet 50 mg PO Q6H PRN pain 07/05/24 07/16/24 Previous Rx's ?Medication ?Instructions ?Recorded ondansetron 4 mg disintegrating 4 mg PO Q8H PRN nausea and 06/06/24 tablet vomiting #7 tabs [id number] 1 cap PO TIDWM #270 caps 07/18/24 24,000-76,000-120,000 unit capsule,delayed rel (Creon) morphine 15 mg immediate release 22.5 mg (1.5 x 15 mg) PO Q12H #90 07/18/24 tablet tabs oxycodone 5 mg tablet 5 mg PO Q8H PRN pain (scale score 07/18/24 7-10) #14 tabs pantoprazole 40 mg tablet,delayed 40 mg PO DAILY Heartburn #30 tabs 07/18/24 release Allergies Allergy/AdvReac Type Severity Reaction Status Date / Time No Known Allergies Allergy Verified 07/30/24 20:14 Review of Systems 2 Review of Systems: Yes all other systems are reviewed and are negative Constitutional: Constitutional: Denies fatigue and Denies fever(s) Gastrointestinal: Gastrointestinal: Reports abdominal pain, Reports change in stool character, Reports diarrhea, Reports nausea and Reports vomiting Endocrine: Endocrine: Denies fatigue PMFSH Past Medical History Attestation statement: The following information was validated with the patient. Medical History Alcohol abuse Necrotizing pancreatitis Benign tumor of breast Alcohol abuse Asthma Anxiety Surgical History No history of previous surgery Social History Social History Household Members: Significant Other and Children Housing: House Do you presently have visiting nurse or other home services: No Alcohol intake: former Patient Tobacco Use Status: Never used Tobacco Smoked in Last 30 Days: No Use of substances other than those prescribed or required for medical reasons: No Substance Use Type: Marijuana Advance Directives: No Advance Directives Information Provided: Yes Do you have a plan to hurt others: No Plan Patient : No service: No Physical Exam ED Vital Signs: Vital Signs - 24 hr 07/30/24 20:11 07/31/24 00:16 07/31/24 00:53 Temperature 97.8 F 98.0 F Pulse Rate 79 77 Respiratory Rate 19 16 17 Blood Pressure 126/72 105/66 Pulse Oximetry 98 99 Oxygen Delivery Method Room Air Room Air 07/31/24 02:29 07/31/24 03:31 07/31/24 03:32 Temperature 97.9 F Pulse Rate 68 Respiratory Rate 17 16 15 Blood Pressure 95/56 L Pulse Oximetry 97 Oxygen Delivery Method Room Air BMI result Body Mass Index 22.3 Const Other: Alert ill-appearing Orientation/consciousness: patient oriented x3 Resp Effort & Inspection: normal respiratory effort Cardio Other: Normal peripheral perfusion GI Other: Abdomen is soft, guarding with a minimal palpation across entire upper abdomen Skin Other: Warm dry no rash Neuro General: patient oriented x3, no focal motor deficits and CN's II-XI intact bilaterally Psych Other: Cooperative, appears distraught Course Course Course Narrative: RME, this is a rapid medical exam performed by Keaton Gamboa please refer to primary provider for complete H&P- 28-year-old female presents for evaluation of upper abdominal pain. Has a history of chronic pancreatitis and reports this feels similar. She was prescribed morphine and feels as though this is not helping the pain adequately. Plan for labs, will defer any advanced imaging. Reevaluation(s) Reevaluation #1: Morphine not effective we will escalate to a Dilaudid Consultations Consultation #1: I reached out to Dr. Chandler per the hospitalist's request, to verify that the patient's admission was warranted, he is allowing for the admission Time: 04:30 Medications Administered Discontinued Medications Generic Name Dose Route Start Last Admin Trade Name Freq PRN Reason Stop Dose Admin Hydromorphone HCl 1 mg 07/31/24 02:11 07/31/24 02:29 Hydromorphone Hcl 1 Mg/Ml Syringe IVPUSH 07/31/24 02:12 1 mg ONCE ONE Administration Protocol Hydromorphone HCl 1 mg 07/31/24 03:21 07/31/24 03:32 Hydromorphone Hcl 1 Mg/Ml Syringe IVPUSH 07/31/24 03:22 1 mg ONCE ONE Administration Protocol Lactated Ringer's 1,000 mls @ 999 mls/hr 07/31/24 00:45 07/31/24 03:22 Lr IV 07/31/24 01:45 Infused .Q1H1M TRUONG Infusion Iohexol 85 ml 07/31/24 00:49 07/31/24 00:50 Iohexol 350 Mg/Ml 100 Ml Infus..Btl IV 07/31/24 00:50 85 ml ONCE ONE Administration Morphine Sulfate 10 mg 07/31/24 00:35 07/31/24 00:53 Morphine Sulfate 10 Mg/Ml Cartridge IVPUSH 07/31/24 00:36 10 mg ONCE ONE Administration Protocol Ondansetron HCl 4 mg 07/31/24 00:35 07/31/24 00:53 Ondansetron Hcl 4 Mg/2 Ml Vial IVPUSH 07/31/24 00:36 4 mg ONCE ONE Administration Medical Decision Making Medical Decision Making MDM Narrative: 49-year-old female with a history of prior alcohol dependence now sober since 09/21/2022, chronic alcoholic pancreatitis, splenic/portal vein thrombosis, history of necrotizing pancreatitis requiring IR percutaneous drainage, complicated by disconnected pancreatic duct syndrome, presented with epigastric pain. Associated nausea vomiting diarrhea with the oily stools. Patient was not been able to tolerate her home medications. Denies fever. Problem: Chronic pancreatitis with a prior necrotizing pancreatitis History: Per patient I have considered the following differential diagnoses, recurrence of pancreatitis Plan: We will be obtaining a CT scan, per her labs, her lipase is always negative, her LFTs are newly elevated. We will be giving antiemetic, high-dose morphine and IV fluid. I have independently reviewed the following tests: Labs: No leukocytosis, not anemic, no electrolyte abnormality, not , LFTs are elevated from her baseline when I trend back from the beginning of July. Findings: No consolidation or effusion. Absent pancreatic tail. No peripancreatic inflammatory changes or pancreatic ductal dilatation. Cholecystectomy. No abnormal biliary ductal dilatation. Normal liver, spleen, adrenal glands, and kidneys. No urinary tract calculus, obstruction, or inflammation. Normal stomach, small bowel, and colon. No free fluid or free air. Normal uterus and ovaries. Bones intact. IMPRESSION: No findings of acute pancreatitis. No acute abnormality otherwise. This document has been electronically signed by: Jessee Eng MD on 07/31/2024 01:34:17 Lab Data 07/30/24 20:54 07/30/24 20:54 Labs: Lab Results 07/30/24 Range/Units 20:54 WBC 6.5 (4.8-10.8) X10*3/uL RBC 4.76 (4.20-5.50) X10*6/uL Hgb 11.8 L (12.0-16.0) g/dl Hct 36.5 L (37.0-47.0) % MCV 76.7 L (80.0-98.0) fL MCH 24.8 L (27.0-33.0) pg MCHC 32.3 (31.0-35.0) g/dl RDW 15.3 (11.0-16.0) % Plt Count 274 (160-400) X10*3/uL MPV 10.6 (9.4-12.3) fL Immature Gran % (Auto) 0.2 (0.0-0.4) % Neut % (Auto) 47.4 (45-73) % Lymph % (Auto) 41.7 H (20-40) % [place] % (Auto) 7.4 (2-11) % Eos % (Auto) 2.5 (0-4) % Baso % (Auto) 0.8 (0-2) % Lymph # (Auto) 2.7 (1.2-4.9) X10*3/uL [place] # (Auto) 0.5 (0.1-1.2) X10*3/uL Eos # (Auto) 0.2 (0.0-0.4) X10*3/uL Baso # (Auto) 0.1 (0.0-0.2) X10*3/uL Abs Immat Gran (auto) 0.01 (0.00-0.03) X10*3/uL Absolute Neuts (auto) 3.1 (2.0-8.3) x10*3/uL Absolute Nucleated RBC 0.000 (0.0-0.012) X10*3/uL Nucleated RBC % (auto) 0.0 (0.0-0.2) /100WBC Sodium 138 (135-145) mmol/L Potassium 3.6 (3.3-5.1) mmol/L Chloride 111 H (96-108) mmol/L Carbon Dioxide 19 L (22-29) mmol/L Anion Gap 12 (12-20) BUN 5 L (9-16) mg/dL Creatinine 0.64 (0.5-1.4) mg/dL Estim Creat Clear Calc 113.0 Estimated GFR > 60 Random Glucose 92 (60-115) mg/dL Calcium 8.9 (8.4-10.2) mg/dL Total Bilirubin 0.3 (0.0-1.0) mg/dL AST 80 H (5-31) U/L ALT 169 H (0-31) U/L Alkaline Phosphatase 219 H (39-117) U/L Total Protein 7.2 (6.5-8.0) g/dL Albumin 4.2 (3.5-5.0) g/dL Lipase < 4 L (8-78) U/L Beta HCG, Quant < 2 mIU/mL Urine Color Yellow Urine Appearance Clear Urine pH 6.0 (5.0-9.0) Ur Specific [place] 1.025 (1.005-1.025) Urine Protein Trace (Neg-Trace) mg/dL Urine Glucose (UA) Negative (Negative) mg/dL Urine Ketones Trace (Negative) mg/dL Urine Blood Negative (Negative) Urine Nitrite Negative (Negative) Ur Leukocyte Esterase Negative (Negative) Urine RBC 0-2 (0-2) /HPF Urine WBC 0-5 (0-5) /HPF Ur Squamous Epith Cells 6-10 (0-2) /HPF Urine Bacteria None Seen (None Seen) Hyaline Casts 0-2 (0-2) /LPF Ethyl Alcohol < 10 mg/dL Discharge Plan Discharge Clinical Impression: Abdominal pain, Transaminitis, Nausea & vomiting, Pancreatic steatorrhea Patient Disposition: Admitted As Inpatient Print Language: Northern Irish
[2024-07-30 20:58] LABS: MANUAL DIFF FLAG NO
[2024-07-30 21:01] LABS: Basophils Absolute Auto 0.1 X10*3/uL (0.0-0.2); Basophils Percent Auto 0.8 % (0-2); Eosinophils Absolute Auto 0.2 X10*3/uL (0.0-0.4); Eosinophils Percent Auto 2.5 % (0-4); Hematocrit 36.5 % (37.0-47.0); Hemoglobin 11.8 g/dl (12.0-16.0); Imm Gran Abs Auto 0.01 X10*3/uL (0.00-0.03); Imm Gran Pct Auto 0.2 % (0.0-0.4); Lymphocytes Absolute Auto 2.7 X10*3/uL (1.2-4.9); Lymphocytes Percent Auto 41.7 % (20-40); Mean Corpuscular HGB Conc 32.3 g/dl (31.0-35.0); Mean Corpuscular Hemoglobin 24.8 pg (27.0-33.0); Mean Corpuscular Volume 76.7 fL (80.0-98.0); Mean Platelet Volume 10.6 fL (9.4-12.3); Monocytes Absolute Auto 0.5 X10*3/uL (0.1-1.2); Monocytes Percent Auto 7.4 % (2-11); Neutrophils Absolute Auto 3.1 x10*3/uL (2.0-8.3); Neutrophils Percent Auto 47.4 % (45-73); Platelet Count 274 X10*3/uL (160-400); Red Blood Count 4.76 X10*6/uL (4.20-5.50); Red Cell Distribution Width 15.3 % (11.0-16.0); White Blood Count 6.5 X10*3/uL (4.8-10.8)
[2024-07-30 21:12] LABS: Appearance Urine Clear; Color Urine Yellow; Glucose Urine UA Negative (Negative); Leukocyte Esterase Urine Negative (Negative); Nitrite Urine Negative (Negative); Specific Gravity - Urine 1.025 (1.005-1.025); Urine Blood Negative (Negative); Urine Ketones Trace mg/dL (Negative); Urine Protein Trace mg/dL (Neg-Trace)
[2024-07-30 21:18] LABS: Bacteria Urine None Seen (None Seen); Hyaline Casts Urine 0-2 /LPF (0-2); RBC Urine 0-2 /HPF (0-2); WBC Urine 0-5 /HPF (0-5)
[2024-07-30 21:29] LABS: Alanine Aminotransferase 169 U/L (0-31); Albumin Level 4.2 g/dL (3.5-5.0); Alkaline Phosphatase 219 U/L (39-117); Anion Gap 12 (12-20); Aspartate Amino Transferase 80 U/L (5-31); Bilirubin Total 0.3 mg/dL (0.0-1.0); Blood Urea Nitrogen 5 mg/dL (9-16); Calcium 8.9 mg/dL (8.4-10.2); Carbon Dioxide 19 mmol/L (22-29); Chloride 111 mmol/L (96-108); Estimated Glomerular Filt Rate > 60; Ethanol < 10 mg/dL; Glucose Random 92 mg/dL (60-115); HCG Quantitative < 2 mIU/mL; Lipase < 4 U/L (8-78); Potassium 3.6 mmol/L (3.3-5.1); Sodium 138 mmol/L (135-145); Total Protein 7.2 g/dL (6.5-8.0)
[2024-07-31] VITALS (12 sets, daily range): BP systolic 90–105; BP diastolic 45–66; PULSE 63–77; RESP 15–18; TEMP 36.6–36.8; O2SAT 96–100
[2024-07-31] MEDS: iohexoL 350 MG/ML 100 ML INFUS..BTL 85 ML IV (00:50)
[2024-07-31] MEDS: ondansetron HCL 4 MG/2 ML VIAL IVPUSH (00:53)
[2024-07-31] MEDS: Lactated Ringers 1,000 ML 999 ML IV (00:53)
[2024-07-31] MEDS: Morphine Sulfate 10 MG/ML CARTRIDGE IVPUSH (00:53)
--- NOTE | 2024-07-31 01:07 | PC.NURSE ---
pt a&ox4, respirations even and unlabored. pt reporting n/v/d and lower abdominal pain. pt reports she has morphine at home but does not want to take large doses. pt reports she has hx of pancreatitis and reports following with her pcp and having no help. 20G placed in left ac, pt medicated per aug.
[2024-07-31] MEDS: HYDROmorphone HCl 1 MG/ML SYRINGE IVPUSH ×3 (02:29→14:46)
--- NOTE | 2024-07-31 06:09 | P.HPHOSP_ITS ---
History of Present Illness Date of Service: 07/31/24 Chief Complaint: abd pain This is a 29-year-old female with pertinent history of alcohol use disorder who is now sober since 2022, chronic alcoholic pancreatitis, splenic/portal vein thrombosis, history of necrotizing pancreatitis status post percutaneous drainage, complicated by disconnected pancreatic duct syndrome, mood disorder who presents to the emergency department for evaluation of abdominal pain. Patient states her symptoms started 2 days prior to presentation. Patient was recently admitted with and discharged on 07/18. She has been having epigastric pain which was initially intermittent. Difficulty tolerating p.o. intake due to associated nausea and vomiting. Pain not relieved with morphine at home. No fever, chills, chest pain, palpitations, shortness of breath, changes in urinary habits In the emergency department, liver enzymes found to be elevated and Gastroenterology was consulted who requested admission. CT abdomen without any acute abnormality. Review of Systems 2 Constitutional: Constitutional: Reports fatigue, Reports malaise and Reports poor appetite Cardiovascular: Cardiovascular: Reports no additional cardiovascular complaints Respiratory: Respiratory: Reports no additional respiratory complaints Gastrointestinal: Gastrointestinal: Reports abdominal pain, Reports nausea and Reports vomiting Genitourinary: Genitourinary: Reports no additional female genitourinary complaints Endocrine: Endocrine: Reports fatigue [facility] Medical History Alcohol abuse Necrotizing pancreatitis Benign tumor of breast Alcohol abuse Asthma Anxiety Pertinent family history: No family history of early CAD Surgical History No history of previous surgery Social History Household Members: Significant Other and Children Housing: House Do you presently have visiting nurse or other home services: No Alcohol intake: former Patient Tobacco Use Status: Never used Tobacco Smoked in Last 30 Days: No Use of substances other than those prescribed or required for medical reasons: No Substance Use Type: Marijuana Advance Directives: No Advance Directives Information Provided: Yes Do you have a plan to hurt others: No Plan Patient : No service: No Meds Allergies Allergy/AdvReac Type Severity Reaction Status Date / Time No Known Allergies Allergy Verified 07/30/24 20:14 Home Medications ?Medication ?Instructions ?Recorded ?Confirmed ?Last Taken ?Type hydroxyzine pamoate 50 mg capsule 50 mg PO Q6H PRN anxiety 07/05/24 07/16/24 Unknown History mirtazapine 15 mg tablet 15 mg PO BEDTIME 07/05/24 07/16/24 07/15/24 History olanzapine 20 mg disintegrating 20 mg PO BEDTIME 07/05/24 07/16/24 07/15/24 History tablet pregabalin 100 mg capsule 100 mg PO BID 07/05/24 07/16/24 07/15/24 History tramadol 50 mg tablet 50 mg PO Q6H PRN pain 07/05/24 07/16/24 Unknown History Physical Exam 2 Vital Signs and Narrative: Vital Signs: Last Vital Signs Temp 97.9 F 07/31/24 03:31 Pulse 68 07/31/24 03:31 Resp 15 07/31/24 03:32 BP 95/56 L 07/31/24 03:31 Pulse Ox 97 07/31/24 03:31 O2 Del Method Room Air 07/31/24 03:31 BMI result Body Mass Index 22.3 Middle-aged female lying in bed in no distress Neck supple, no JVD Regular rate and rhythm, S1-S2 heard Regular breath sounds bilaterally, no wheezing or crackles appreciated Abdomen with epigastric tenderness, no rigidity Patient is awake, alert and oriented to self, place, time and person ; no focal motor deficit Psych: Normal mood No pedal edema Results Labs 07/30/24 20:54 07/30/24 20:54 Labs: Laboratory Results - last 24 hr 07/30/24 20:54 MCV 76.7 L MCH 24.8 L MCHC 32.3 RDW 15.3 Plt Count 274 MPV 10.6 Immature Gran % (Auto) 0.2 Neut % (Auto) 47.4 Lymph % (Auto) 41.7 H [place] % (Auto) 7.4 Eos % (Auto) 2.5 Baso % (Auto) 0.8 Lymph # (Auto) 2.7 [place] # (Auto) 0.5 Eos # (Auto) 0.2 Baso # (Auto) 0.1 Abs Immat Gran (auto) 0.01 Absolute Neuts (auto) 3.1 Absolute Nucleated RBC 0.000 Nucleated RBC % (auto) 0.0 Anion Gap 12 Estim Creat Clear Calc 113.0 Estimated GFR > 60 Random Glucose 92 Calcium 8.9 Total Bilirubin 0.3 AST 80 H ALT 169 H Alkaline Phosphatase 219 H Total Protein 7.2 Albumin 4.2 Lipase < 4 L Beta HCG, Quant < 2 Urine Color Yellow Urine Appearance Clear Urine pH 6.0 Ur Specific [place] 1.025 Urine Protein Trace Urine Glucose (UA) Negative Urine Ketones Trace Urine Blood Negative Urine Nitrite Negative Ur Leukocyte Esterase Negative Urine RBC 0-2 Urine WBC 0-5 Ur Squamous Epith Cells 6-10 Urine Bacteria None Seen Hyaline Casts 0-2 Ethyl Alcohol < 10 Assessment and Plan (1) Chronic pancreatitis: Status: Acute Plan This is a 29-year-old female with pertinent history of alcohol use disorder who is now sober since 2022, chronic alcoholic pancreatitis, splenic/portal vein thrombosis, history of necrotizing pancreatitis status post percutaneous drainage, complicated by disconnected pancreatic duct syndrome, mood disorder who presents to the emergency department for evaluation of abdominal pain. #. Intractable abdominal pain in a patient with chronic alcoholic pancreatitis: Will admit patient with IV opiates p.r.n. for analgesia. Advance diet as tolerated. Continue Creon. Noted elevation of AST/ALT and alk-phos. Gastroenterology consulted from the ER, appreciate assistance #. Mood disorder: Continue home mood stabilizers #. Gastroesophageal reflux disease: On PPI Med rec pending DVT prophylaxis: Lovenox Full code Quality Stroke Does the patient have a stroke diagnosis?: No VTE Prior VTE?: No VTE Risk Level:: Medical - moderate - high VTE Device Contraindication: Treatment Not Indicated VTE Drug Contraindication: N/A - Med Ordered
[2024-07-31] MEDS: Morphine Sulfate 4 MG/ML CARTRIDGE IVPUSH ×2 (06:29→12:23)
--- NOTE | 2024-07-31 06:31 | PC.NURSE ---
pt medicated per aug for 8/10 abdominal pain, pt sitting up and eating at this time.
[2024-07-31] MEDS: Morphine Sulfate Immed Release 15 MG TABLET 30 MG PO (08:31)
[2024-07-31] MEDS: Enoxaparin Sodium 40 MG/0.4 ML SYRINGE SUBCUT (08:31)
[2024-07-31] MEDS: 0.9 % Sodium Chloride Flush 3 ML SYRINGE IVFLUSH (08:32)
[2024-07-31 09:41] LABS: INTERNATIONAL NORM RATIO 1.2 (0.9-1.1); Prothrombin Time 14.4 SEC (10.9-12.4)
[2024-07-31 09:45] LABS: Alanine Aminotransferase 119 U/L (0-31); Albumin Level 3.5 g/dL (3.5-5.0); Alkaline Phosphatase 178 U/L (39-117); Aspartate Amino Transferase 53 U/L (5-31); Bilirubin Direct 0.2 mg/dL (0.0-0.5); Bilirubin Total 0.3 mg/dL (0.0-1.0); Total Protein 5.8 g/dL (6.5-8.0)
--- NOTE | 2024-07-31 09:50 | PHA.MEDREC ---
Addendum entered by Michael Adams [facility] 07/31/24 10:52: MEDREC CHECKED BY [facility] Original Note: Pharmacy Consult ? Medication Reconciliation Pharmacy has completed the medication reconciliation. Spoke with patient and she confirmed her medications. She stated her Psychologist discontinued the Olanzapine 20mg tab about 2 weeks ago. I asked her if she finished the metronidazole and tetracycline regimens since I called her pharmacy and they were picked up 06/18 for a 14 day supply and the patient was confused and did not remember taking any antibiotics in the last week or 2. She confirmed she took all her medications yesterday.
--- NOTE | 2024-07-31 11:35 | P.PNIM_ITS ---
Subjective Subjective Date of Service: 07/31/24 Interval History: still with pain Physical Exam 2 Vital Signs: Vital Signs: Last Vital Signs Temp 98.2 F 07/31/24 09:26 Pulse 63 07/31/24 09:26 Resp 18 07/31/24 09:26 BP 97/45 L 07/31/24 09:35 Pulse Ox 96 07/31/24 09:26 O2 Del Method Room Air 07/31/24 09:26 BMI result Body Mass Index 22.3 General: AO X 3, no acute distress Resp: CTA bilateral, no accessory muscles used CVS: S1,S2,RRR GI: soft, non tender, non distended Neuro: motor grossly intact, alert Psych: appropriate affect, appropriate insight Objective Data Active Medications Acetaminophen (Acetaminophen 325 Mg Tablet) 650 mg PO Q6H PRN PRN Reason: Pain, Mild 1-3,fever,headache Lipase/Protease/Amylase (Lipase/Prot/Amylase 24/76/120k 1 Cap Capsule.Dr) 1 cap PO TIDWM [facility] Calcium Carbonate (Calcium Carbonate 750 Mg Tab.Chew) 750 mg PO Q4H PRN PRN Reason: Heartburn Enoxaparin Sodium (Enoxaparin Sodium 40 Mg/0.4 Ml Syringe) 40 mg SUBCUT Q24H [facility] Last Admin: 07/31/24 08:31 Dose: 40 mg Documented By: PRIYANKA Hydroxyzine HCl (Hydroxyzine Hcl 50 Mg Tablet) 50 mg PO Q6H PRN PRN Reason: anxiety Magnesium Hydroxide (Milk Of Magnesia 30 Ml Oral.Susp) 30 ml PO DAILY PRN PRN Reason: Constipation Melatonin (Melatonin 3 Mg Tablet) 6 mg PO BEDTIME PRN PRN Reason: Insomnia Mirtazapine (Mirtazapine 7.5 Mg Tablet) 7.5 mg PO DAILY [facility] Morphine Sulfate (Morphine Sulfate 4 Mg/Ml Cartridge) 4 mg IVPUSH Q4H PRN; Protocol PRN Reason: Pain, Severe (Pain Scale 7-10) Last Admin: 07/31/24 06:29 Dose: 4 mg Documented By: YARI Morphine Sulfate (Morphine Sulfate Immed Release 15 Mg Tablet) 30 mg PO BID [facility] Last Admin: 07/31/24 08:31 Dose: 30 mg Documented By: PRIYANKA Ondansetron HCl (Ondansetron Hcl 4 Mg/2 Ml Vial) 4 mg IVPUSH Q8H PRN PRN Reason: Nausea and Vomiting Pregabalin (Pregabalin 100 Mg Capsule) 100 mg PO BID TRUONG Sertraline HCl (Sertraline Hcl 50 Mg Tablet) 50 mg PO DAILY [facility] Sodium Chloride (0.9 % Sodium Chloride Flush 3 Ml Syringe) 3 ml IVFLUSH QSHIFT TRUONG Last Admin: 07/31/24 08:32 Dose: 3 ml Documented By: PRIYANKA Labs 07/30/24 20:54 07/30/24 20:54 Labs: Laboratory Results - last 24 hr 07/30/24 07/31/24 20:54 09:08 MCV 76.7 L MCH 24.8 L MCHC 32.3 RDW 15.3 Plt Count 274 MPV 10.6 Immature Gran % (Auto) 0.2 Neut % (Auto) 47.4 Lymph % (Auto) 41.7 H [place] % (Auto) 7.4 Eos % (Auto) 2.5 Baso % (Auto) 0.8 Lymph # (Auto) 2.7 [place] # (Auto) 0.5 Eos # (Auto) 0.2 Baso # (Auto) 0.1 Abs Immat Gran (auto) 0.01 Absolute Neuts (auto) 3.1 Absolute Nucleated RBC 0.000 Nucleated RBC % (auto) 0.0 PT 14.4 H D INR 1.2 H Anion Gap 12 Estim Creat Clear Calc 113.0 Estimated GFR > 60 Random Glucose 92 Calcium 8.9 Total Bilirubin 0.3 0.3 Direct Bilirubin 0.2 AST 80 H 53 H ALT 169 H 119 H Alkaline Phosphatase 219 H 178 H Total Protein 7.2 5.8 L Albumin 4.2 3.5 Lipase < 4 L Beta HCG, Quant < 2 Urine Color Yellow Urine Appearance Clear Urine pH 6.0 Ur Specific [place] 1.025 Urine Protein Trace Urine Glucose (UA) Negative Urine Ketones Trace Urine Blood Negative Urine Nitrite Negative Ur Leukocyte Esterase Negative Urine RBC 0-2 Urine WBC 0-5 Ur Squamous Epith Cells 6-10 Urine Bacteria None Seen Hyaline Casts 0-2 Ethyl Alcohol < 10 Assessment and Plan (1) Nausea & vomiting: Status: Acute Plan 29F PMH etoh dependence currently sober, chronic etoh pancreatitis, spleni/portal vein thrombosis, necortizing pancreatitis, disconected pancreatic duct sydnrome, mood disorder presented with epigastric pain Intractable abdominal pain recurrent, due to chronic alcoholic pancreatitis Pain meds, will advance to solids, monitor LFTs, GI eval, continue Creon DVT prophylaxis Lovenox Full Code reason for continued hospitalization: pain Quality Stroke Does the patient have a stroke diagnosis?: No VTE Prior VTE?: No VTE Risk Level:: Medical - moderate - high VTE Device Contraindication: Treatment Not Indicated VTE Drug Contraindication: N/A - Med Ordered
--- OUTSIDE RECORDS SUMMARY | 2024-07-31 13:52 | XMS_ITS | Encounter Summary ---
Author Organization [employer] Address [address] [place] [address] Care Team Providers Care Shader And Toner Name Role Phone Ibeth Lassiter MD Primary Care Provider [phone] Reason for Visit * Reason Comments Follow-up HDF - chronic pancre atitis Encounter Details Date Type Department Care Team ([facility] st Contact Info) Description 07/11/2024 9:30 AM EST Office Visit [facility] [address], [place] [id number] Rosalina Mathews MD [address] [place] [address] Chronic pancreatitis, unspecified pancreatitis type (CMS/HCC) (Primary [...] Care Team (Late st Contact Info) Description 09/04/2024 2:00 PM EDT Clinical Support [facility] [address] [place] [address] Anastasiia Ocampo RN [address] [place] [address] 09/10/2024 11:30 AM EDT Office Visit [facility] [address] [place] [address] Rosalina Mathews MD [address] [place] [address] documented as of this encounter Visit Diagnoses Diagnosis Chronic pancreatitis, unspecified pancreatitis type (CMS/HCC)- Primary documented in this encounter Additional Health Concerns Assessment Noted Time PHQ-9 Depression Total Score: 22 025 10:04 AM EST documented as of this encounter Care Teams Shader And Toner Relationship Specialty Start Date End Date Ibeth Lassiter MD [address] [place] [address] PCP - General Family Medicine 12/16/21 documented as of this encounter
--- OUTSIDE RECORDS SUMMARY | 2024-07-31 13:52 | XMS_ITS | Clinical Summary ---
Author Organization [facility] Address [address] [place] [address] Care Team Providers Care Master [employer] Parachutist Name Role Phone Ibeth Lassiter MD Primary Care Provider [phone] Allergies Active Allergy Reactions Criticality Noted Date [...] pur e alcohol) 10-[address]ips [address] [facility] Utilities Answer Date Recorded In the past 12 months has [employer], gas, oil, or water [employer] threatened to shut off services in your [...] place to sleep or slept in a nursing home (including now)? No 09/08/2023 Sex and Gender [...] of 3 - 19+ 3-dose series) 2014 Pap Smear (Ages 21-65) 2016 Influenza Vaccine 01/03/2024 04/04/2011 COVID-19 Vaccine (2023-2 5 season) 2024 HPV Vaccines Aged Out No longer eligi ble based on patient's age to complete this topic Pneumococcal Vaccine: Pediat jaskaran (0-5 Years) and At-Risk Patients (6 to 49 Years) Aged Out No longer eligible b ased on patient's age to complete this topic Advance Directives * Full Code (Latest Code Status on File) Date Activated Date Inactivated Comments 09/08/2023 12:13 AM Care Teams Master [employer] Parach[employer]ist Relationship Specialty Start Date End Date Ibeth Lassiter MD [address] [place] [address] PCP - General Family Medicine 09/07/23
--- OUTSIDE RECORDS SUMMARY | 2024-07-31 13:52 | XMS_ITS | Encounter Summary ---
Author Organization [employer] Address 75 [facility] 7t [place] [address] Care Team Providers Care Small Brake Form Operator Name Role Phone Ibeth Lassiter MD Primary Care Provider [phone] Reason for Visit * Reason Onset Date Comments Results 03/27/2024 Care Coordination 03/27/2024 C3 initial a ssessment/ enrollment Encounter Details Date Type Department Care Team ([facility] Contact Info) Description 03/27/2024 Telephone [facility] CHC MED & PEDS [address] [place] [address] Ibeth Lassiter MD [address] [place] [address] Results; Care Coordination ([facility] initial assessment/ enrollment) Social History Tobacco Use [...] was hospitalized about 2 days ago at [facility] for epigastric pain. Pt states she triesto avoid spicy food which triggers the pain. t states she is supposed to wear eyeglasses due to difficulty with her vision but hasn't seen the running specialist in a very long time. CM will mail a list of running specialist to pt's address on file and [...] understanding, and able to repeat back to telegraphic typewriter mechanic. A follow up call will be placed within 10 days, patient agrees with plan. * Telephone Encounter - Nancy Aguilar RN - 04/02/2024 3:[address] was ordered by outside provider. Upon pt chart review, pt is currently admitted at [facility] for Abd pain after biliary stent placement. Pt to f/u once discharged. * Telephone Encounter - Catieadam Moreau - 03/27/2024 2:17 PM EDT TC from pt requesting call back regarding Results. Type of results: Ultrasound Date when done: 2 weeks ago Facility: [facility] Contact pt at [phone] documented in this encounter Plan of Treatment Upcoming Encounters Date Type Department Care Team (Late st Contact Info) Description 09/04/2024 2:00 PM EDT Clinical Support [facility] MED & PEDS [address] [place] [address] Anastasiia Ocampo RN 505 [place] [address] 09/10/2024 11:30 AM EDT Office Visit [facility] MED & PEDS [address] [place] [address] Rosalina Mathews MD [address] [place] [address] documented as of this encounter Visit Diagnoses Not on filedocumented in this encounter Additional Health Concerns Assessment Noted Time PHQ-9 Depression Total Score: 24 024 3:55 PM EDT documented as of this encounter Care Teams Small Brake Form Operator Relationship Specialty Start Date End Date Ibeth Lassiter MD [address] [place] [address] PCP - General Family Medicine 12/16/21 documented as of this encounter
--- OUTSIDE RECORDS SUMMARY | 2024-07-31 13:52 | XMS_ITS | Encounter Summary ---
Author Organization [employer] Address 75 [facility] 7t [place] [address] Care Team Providers Care Pantry Chef Name Role Phone Ibeth Lassiter MD Primary Care Provider [phone] Reason for Visit * Reason Comments Transition Of Care (Tcm) Encounter Details Date Type Department Care Team ([facility] st Contact Info) Description 07/11/2024 Patient Outreach [facility] MEDICINE [address] [place] [address] Ibeth Lassiter MD [address] [place] [address] Transition Of Care (Tcm) Social History Tobacco [...] Description 09/04/2024 2:00 PM EDT Clinical Support [facility] MED & PEDS 505 [place] [address] Anastasiia Ocampo RN 505 [place] [address] 09/10/2024 11:30 AM EDT Office Visit [facility] MED & PEDS [address] [place] [address] Rosalina Mathews MD [address] [place] [address] documented as of this encounter Visit Diagnoses Not on filedocumented in this encounter Additional Health Concerns Assessment Noted Time PHQ-9 Depression Total Score: 22 025 10:04 AM EST documented as of this encounter Care Teams Pantry Chef Relationship Specialty Start Date End Date Ibeth Lassiter MD [address] [place] [address] PCP - General Family Medicine 12/16/21 documented as of this encounter
--- OUTSIDE RECORDS SUMMARY | 2024-07-31 13:52 | XMS_ITS | Encounter Summary ---
Author Organization [employer] Address 75 [facility] 7t [place] [address] Care Team Providers Care Digital Artist Name Role Phone Ibeth Lassiter MD Primary Care Provider [phone] Reason for Visit * Reason Comments controlled substance treatment Encounter Details Date Type Department Care Team (Latest Contact Info) Description 07/24/2024 2:30 PM EST Clinical Support [facility] CHC MED & PEDS [address] [place] [address] Anastasiia Ocamop, RN [address] [place] [address] Chronic pancreatitis, unspecified pancreatitis type (CMS/HCC) Social History Tobacco Use Types Packs/Day [...] as of this encounter Progress Notes * Anastasiia Ocampo RN - 07/24/2024 2:30 PM EST S: RECREATION LEADER [place]. Prescribed Morphine 15mg 1.5tab bid PRN for pancreatitis. Patient states has been takingmedication as prescribed. Discussed at the last PCP visit on 03/19/24 that med will be tapered off by 10% a month. Patient denies any adverse side effects. Patient was given Morphine 15mg qty 90 at [facility] on 07/19/24 qty 90, notes in patient's chart. Pt denies nicotine/ street drug. States uses Marijuana pen. States quit drinking ETOH in when was diagnosed with pancreatitis, (was abusing it before, notes in pt's chart). Currently rates pain a 9/10 and states medication is usually 60% effective at alleviating pain. No other questions/ concerns at this time. O: GAS STATION CASHIER verified today. Rx last filled 07/19/24 (rx from [facility], see above), Pill count performed, patient has 75 pills left, 73 pills expected. Utox performed, positive for MOP, THC, negative for all other tested substances. A: RECREATION LEADER Contract Revisit: Opioid dependence related to chronic pain. P: Patient to continue taking medication only as prescribed; Next RECREATION LEADER RV appointment scheduled for 09/04/24 @ 2pm. F/U sooner PRN. Patient verbalized understanding and agreed to plan. documented in this encounter Plan of Treatment Upcoming Encounters Date Type Department Care Team ([facility] st Contact Info) Description 09/04/2024 2:00 PM EDT Clinical Support [facility] MED & PEDS [address] [place] [address] Anastasiia Ocampo RN [address] [place] [address] 09/10/2024 11:30 AM EDT Office Visit [facility] MED & PEDS [address] [place], [place] [id number] Rosalina Mathews MD 505 [place], [place] [phone] documented as of this encounter Procedures Procedure Name Priority Date/Time Associated Diagnosis Comments POCT ANGE-14 URINE DRUG SCREEN Routine 07/24/2024 2:24 PM EST Chronic pancreatitis, unspecified pancreatitis type (CMS/HCC) documented in this encounter Results * POCT ANGE-14 Urine Drug Screen (07/24/2024 2:24 PM EST) THC Positive Opiate Screen, Urine Positive Urine Urine specimen obtained by clean catch procedure / Unknown 07/24/2024 2:24 PM EST Narrative Anastasiia Ocampo RN - 07/24/2024 2:24 PM EST Lot# [id number] Exp: 01-21-26 Ibeth Lassiter MD POINT OF CARE TEST ENTER/EDIT ORDERABLES Final Result documented in this encounter Visit Diagnoses Diagnosis Chronic pancreatitis, unspecified pancreatitis type (CMS/HCC) documented in this encounter Additional Health Concerns Assessment Noted Time PHQ-9 Depression Total Score: 22 025 10:04 AM EST documented as of this encounter Care Teams Digital Artist Relationship Specialty Start Date End Date Ibeth Lassiter MD [address] [place] [address] PCP - General Family Medicine 12/16/21 documented as of this encounter
--- OUTSIDE RECORDS SUMMARY | 2024-07-31 13:52 | XMS_ITS | Encounter Summary ---
Author Organization [employer] Address 75 [facility] 7t [place] [address] Care Team Providers Care Early Learning Teacher Name Role Phone Ibeth Lassiter MD Primary Care Provider [phone] Reason for Visit * Reason Onset Date Comments Med Refill 11/05/2023 Encounter Details Date Type Department Care Team ([facility] st Contact Info) Description 11/05/2023 Telephone [facility] MEDICINE [address] [place] [address] Ibeth Lassiter MD [address] [place] [address] Med Refill Social History Tobacco Use Types [...] 50 MG capsule To be sent to: [id number] [place], [place] - [address] [place] [address] AT [facility] documented in this encounter Plan of Treatment Upcoming Encounters Date Type Department Care Team ([facility] st Contact Info) Description 09/04/2024 2:00 PM EDT Clinical Support [facility] MED & PEDS [address] [place] [address] Anastasiia Ocampo, RN [address] [place] [address] 09/10/2024 11:30 AM EDT Office Visit [facility] MED & PEDS 505 [facility] [place] [address] Rosalina Mathews MD [address] [place] [address] documented as of this encounter Visit Diagnoses Not on filedocumented in this encounter Additional Health Concerns Assessment Noted Time PHQ-9 Depression Total Score: 14 023 10:26 AM EDT documented as of this encounter Care Teams Early Learning Teacher Relationship Specialty Start Date End Date Ibeth Lassiter MD [address] [place] [address] PCP - General Family Medicine 12/16/21 documented as of this encounter
--- OUTSIDE RECORDS SUMMARY | 2024-07-31 13:52 | XMS_ITS | Encounter Summary ---
Author Organization [employer] Address 75 [facility] 7t [place] [address] Care Team Providers Care Financial Institution Manager Name Role Phone Ibeth Lassiter MD Primary Care Provider [phone] Reason for Visit * Reason Onset Date Comments Hospital Follow-up 07/08/2024 Care Coordination 07/08/2024 C3 program g raduation. Encounter Details Date Type Department Care Team ([facility] Contact Info) Description 07/08/2024 Telephone [facility] CHC MED & PEDS [address] [place] [address] Ibeth Lassiter MD [address] [place] [address] Hospital Follow-up; Care Coordination (C3 program graduation.) [...] provided on [facility]. Patient provided with after-hours line for [facility], , which offer night time triage service and option to transfer to weight and balance control agent provider if needed. CM discussed with the [...] - 07/08/2024 9:51 AM EST Tc from [facility] day care attendant with [employer] requesting a HDF appt. [facility] [facility] Date of admission: 07/04/24 Discharge date: 07/06/24 Diagnosed: Abdominal [ain Contact pt at [phone] documented in this encounter Plan of Treatment Upcoming Encounters Date Type Department Care Team (Late st Contact Info) Description 09/04/2024 2:00 PM EDT Clinical Support [facility] MED & PEDS [address] [place] [address] Anastasiia Ocampo RN [address] [place] [address] 09/10/2024 11:30 AM EDT Office Visit [facility] MED & PEDS [address] [place] [address] Rosalina Mathews MD [address] [place] [address] documented as of this encounter Visit Diagnoses Not on filedocumented in this encounter Additional Health Concerns Assessment Noted Time PHQ-9 Depression Total Score: 22 025 10:04 AM EST documented as of this encounter Care Teams Financial Institution Manager Relationship Specialty Start Date End Date Ibeth Lassiter MD [address] [place] [address] PCP - General Family Medicine 12/16/21 documented as of this encounter
--- OUTSIDE RECORDS SUMMARY | 2024-07-31 13:52 | XMS_ITS | Encounter Summary ---
Author Organization [employer] Address [address] [facility] [address] 7t [place] [address] Care Team Providers Care Youth Career Specialist Name Role Phone Ibeth Lassiter MD Primary Care Provider [phone] Reason for Visit * Reason Onset Date Comments Medication Question 07/18/2024 Encounter Details Date Type Department Care Team ([facility] st Contact Info) Description 07/18/2024 Telephone [facility] MEDICINE [address] [place] [address] Ibeth Lassiter MD [address] [place] [address] Medication Question Social History Tobacco Use Types [...] Telephone Encounter - Ghazala Hussein RN - 07/22/2024 10:10 AM EST Spoke with pharmacist at [facility]. She stated Melvinan[facility]karlo filled the Morphine 15mg from [facility] and did not fill the Morphine [address] Dickerson. This message was sent as a FYI. * Telephone Encounter - Leana Thomas - 07/18/2024 3:55 PM EST Tc from [facility] stating lucero received two prescript this morning from [facility] for OxyCodone 15 MG andMorphine 15 MG, but in the afternoon received another prescription for morphine 15 MG from [facility]. Pharmacy requested a call back to clarify which script they are going to use. [phone] documented in this encounter Plan of Treatment Upcoming Encounters Date Type Department Care Team (Late st Contact Info) Description 09/04/2024 2:00 PM EDT Clinical Support [facility] MED & PEDS [address] [place] [address] Anastasiia Ocampo RN [address] [place] [address] 09/10/2024 11:30 AM EDT Office Visit [facility] MED & PEDS [address] [place] [address] Rosalina Mathews MD [address] [place] [address] documented as of this encounter Visit Diagnoses Not on filedocumented in this encounter Additional Health Concerns Assessment Noted Time PHQ-9 Depression Total Score: 22 025 10:04 AM EST documented as of this encounter Care Teams Youth Career Specialist Relationship Specialty Start Date End Date Ibeth Lassiter MD [address] [place] [address] PCP - General Family Medicine 12/16/21 documented as of this encounter
--- OUTSIDE RECORDS SUMMARY | 2024-07-31 13:52 | XMS_ITS | Encounter Summary ---
Author Organization [employer] Address 75 [facility] 7 [place] [address] Care Team Providers Care Transmission Technician Name Role Phone Ibeth Lassiter MD Primary Care Provider [phone] Reason for Visit * Reason Onset Date Comments Med Refill 07/16/2024 Encounter Details Date Type Department Care Team ([facility] st Contact Info) Description 07/16/2024 Refill [facility] CHC MED & PEDS [address] [place] [address] Solis Taylor MD [address] [place] [address] Alcohol-induced chronic pancreatitis (CMS/HCC) Social History Tobacco [...] Description 09/04/2024 2:00 PM EDT Clinical Support [facility] MED & PEDS [address] [place] [address] Anastasiia Ocampo RN [address] [place] [address] 09/10/2024 11:30 AM EDT Office Visit [facility] MED & PEDS [address] [place] [address] Rosalina Mathews MD [address] [place] [address] documented as of this encounter Visit Diagnoses Diagnosis Alcohol-induced chronic pancreatitis (CMS/HCC) Chronic pancreatitis documented in this encounter Additional Health Concerns Assessment Noted Time PHQ-9 Depression Total Score: 22 025 10:04 AM EST documented as of this encounter Care Teams Transmission Technician Relationship Specialty Start Date End Date Ibeth Lassiter MD [address] [place] [address] PCP - General Family Medicine 12/16/21 documented as of this encounter
--- OUTSIDE RECORDS SUMMARY | 2024-07-31 13:52 | XMS_ITS | Encounter Summary ---
Author Organization [employer] Address [address] [facility] [address] 7[address] [place] [address] Care Team Providers Care Milieu Technician Name Role Phone Ibeth Lassiter MD Primary Care Provider [phone] Reason for Visit * Reason Onset Date Comments Appointment Request 05/29/2024 Encounter Details Date Type Department Care Team ([facility] st Contact Info) Description 05/29/2024 Telephone [facility] MEDICINE [address] [place] [address] Ibeth Lassiter MD [address] [place] [address] Appointment Request Social History Tobacco Use Types [...] Description 09/04/2024 2:00 PM EDT Clinical Support [facility] MED & PEDS [address] [place] [address] Anastasiia Ocampo RN [address] [place] [address] 09/10/2024 11:30 AM EDT Office Visit [facility] MED & PEDS [address] [place] [address] Rosalina Mathews MD [address] [place] [address] documented as of this encounter Visit Diagnoses Not on filedocumented in this encounter Additional Health Concerns Assessment Noted Time PHQ-9 Depression Total Score: 24 024 3:55 PM EDT documented as of this encounter Care Teams Milieu Technician Relationship Specialty Start Date End Date Ibeth Lassiter MD [address] [place] [address] PCP - General Family Medicine 12/16/21 documented as of this encounter
--- OUTSIDE RECORDS SUMMARY | 2024-07-31 13:52 | XMS_ITS | Encounter Summary ---
Author Organization [employer] Address 75 [facility] 7t [place] [address] Care Team Providers Care Pulmonary Care Nurse Name Role Phone Ibeth Lassiter MD Primary Care Provider [phone] Reason for Visit * Reason Onset Date Comments Appointment Request 05/08/2024 Encounter Details Date Type Department Care Team ([facility] st Contact Info) Description 05/08/2024 Telephone [facility] MEDICINE [address] [place] [address] Ibeth Lassiter MD [address] [place] [address] Appointment Request Social History Tobacco Use Types [...] EST Tc from pt requesting to reschedule DERMATOLOGIST AND DERMATOPATHOLOGIST visit from 05/15 due to having a different appt at the sametime. Please contact pt at [phone]. documented in this encounter Plan of Treatment Upcoming Encounters Date Type Department Care Team ([facility] st Contact Info) Description 09/04/2024 2:00 PM EDT Clinical Support [facility] MED & PEDS [address] [place] [address] Anastasiia Ocampo RN [address] [place] [address] 09/10/2024 11:30 AM EDT Office Visit [facility] MED & PEDS [address] [place] [address] Rosalina Mathews MD [address] [place] [address] documented as of this encounter Visit Diagnoses Not on filedocumented in this encounter Additional Health Concerns Assessment Noted Time PHQ-9 Depression Total Score: 24 024 3:55 PM EDT documented as of this encounter Care Teams Pulmonary Care Nurse Relationship Specialty Start Date End Date Ibeth Lassiter MD [address] [place] [address] PCP - General Family Medicine 12/16/21 documented as of this encounter
--- OUTSIDE RECORDS SUMMARY | 2024-07-31 13:52 | XMS_ITS | Encounter Summary ---
Author Organization [employer] Address 75 [facility] 7t [place] [address] Care Team Providers Care Rn Chronic Name Role Phone Ibeth Lassiter MD Primary Care Provider [phone] Reason for Visit * Reason Onset Date Comments Med Refill 11/02/2023 Encounter Details Date Type Department Care Team (Late st Contact Info) Description 11/02/2023 Refill [facility] CHC MED & PEDS [address] [place] [address] Ibeth Lassiter MD [address] [place] [address] Acute necrotizing pancreatitis Social History Tobacco Use [...] Description 09/04/2024 2:00 PM EDT Clinical Support [facility] MED & PEDS 505 [place] [address] Anastasiia Ocampo, EL [address] [place] [address] 09/10/2024 11:30 AM EDT Office Visit [facility] MED & PEDS [address] [place] [address] Rosalina Mathews MD [address] [place] [address] documented as of this encounter Visit Diagnoses Diagnosis Acute necrotizing pancreatitis Acute pancreatitis documented in this encounter Additional Health Concerns Assessment Noted Time PHQ-9 Depression Total Score: 14 023 10:26 AM EDT documented as of this encounter Care Teams Rn Chronic Relationship Specialty Start Date End Date Ibeth Lassiter MD [address] [place] [address] PCP - General Family Medicine 12/16/21 documented as of this encounter
--- OUTSIDE RECORDS SUMMARY | 2024-07-31 13:52 | XMS_ITS | Encounter Summary ---
Author Organization [employer] Address 75 [facility] 7t [place] [address] Care Team Providers Care Supervisor Tree Trimming Name Role Phone Ibeth Lassiter MD Primary Care Provider [phone] Reason for Visit * Reason Onset Date Comments Med Refill 11/05/2023 Encounter Details Date Type Department Care Team (Late st Contact Info) Description 11/05/2023 Refill [facility] CHC MED & PEDS [address] [place] [address] Ibeth Lassiter MD [address] [place] [address] Anxiety Social History Tobacco Use Types Packs/Day [...] [facility] MED & PEDS [address] [place] [address] Anastasiia Ocampo RN [address] [place] [address] 09/10/2024 11:30 AM EDT Office Visit [facility] MED & PEDS [address] [place] [address] Rosalina Mathews MD [address] [place] [address] documented as of this encounter Visit Diagnoses Diagnosis Anxiety Anxiety state, unspecified documented in this encounter Additional Health Concerns Assessment Noted Time PHQ-9 Depression Total Score: 14 023 10:26 AM EDT documented as of this encounter Care Teams Supervisor Tree Trimming Relationship Specialty Start Date End Date Ibeth Lassiter MD [address] [place] [address] PCP - General Family Medicine 12/16/21 documented as of this encounter
--- OUTSIDE RECORDS SUMMARY | 2024-07-31 13:52 | XMS_ITS | Encounter Summary ---
Author Organization [employer] Address [address] [facility] [address] 7t [place] [address] Care Team Providers Care Raspberry Checker Name Role Phone Ibeth Lassiter MD Primary Care Provider [phone] Encounter Details Date Type Department Care Team [...] 09/04/2024 2:00 PM EDT Clinical Support [facility] MED & PEDS [address] [place] [address] Anastasiia Ocampo RN 505 [place] [address] 09/10/2024 11:30 AM EDT Office Visit [facility] MED & PEDS [address] [place] [address] Rosalina Mathews MD [address] [place] [address] documented as of this encounter Visit Diagnoses Not on filedocumented in this encounter Additional Health Concerns Assessment Noted Time PHQ-9 Depression Total Score: 22 025 10:04 AM EST documented as of this encounter Care Teams Raspberry Checker Relationship Specialty Start Date End Date Ibeth Lassiter MD [address] [place] [address] PCP - General Family Medicine 12/16/21 documented as of this encounter
--- OUTSIDE RECORDS SUMMARY | 2024-07-31 13:52 | XMS_ITS | Encounter Summary ---
Author Organization [employer] Address [address] [facility] 7t [place] [address] Care Team Providers Care Lap Machine Tender Name Role Phone Ibeth Lassiter MD Primary Care Provider [phone] Reason for Referral * Imaging (Routine) - Closed Specialty Diagnoses / Procedures Referred By Contfrancy t Referred To Contact Radiology Diagnoses Mastodynia of left breast Procedures BI Mammogram Diagnostic Bilateral Bailee Lewis MD [address] [place] [address] Phone: tel: fax: [address] Phone: tel: fax: Referral ID Status Reason Start Date Expiration Date Visits Re quested Visits Authorized [id number] Closed 12/22/2022 12/22/2023 1 1 Encounter Details Date Type Department Care Team (Late st Contact Info) Description 12/22/2022 Orders Only [facility] MEDICINE [address] [place], [place] [phone] Bailee Lewis MD [address] [place], [place] [phone] Mastodynia of left breast (Primary Dx) Social [...] [facility] MED & PEDS [address] [place] [address] Anastasiia Ocampo RN 505 [place] [address] 09/10/2024 11:30 AM EDT Office Visit [facility] MED & PEDS [address] [place] [address] Rosalina Mathews MD [address] [place] [address] Scheduled Orders Name Type Priority Associated Diagnoses [...] EDT Narrative 01/16/2023 3:34 PM EDT ? [facility] ? [address] ?[place] [address] ? Ultrasound Report ? Signed ? Patient: Aguilar,Deepti ?MR#: [id number] ?? 5 ? : 1995 ?Acct:[id number] ? Age/Sex: 27 / F ?ADM Date: 01/16/23 ? Loc: HO.MAMMO ? Attending Dr: Yuly Guzman CNM ? Ordering Physician: YULY GUZMAN CNM ?? Date of Service: 01/16/23 ?? Procedure(s): US breast LT limited mamm only ?? Accession Number(s): [id number] ? cc: YULY GUZMAN CNM ? EXAMINATION: [...] 1531 ? DD/ 1500 ? TD/TT: ? Dump Grader: ? Procedure Note Edmund, Image - 01/16/2023 [facility] [address] [place] [address] [place] [address] Ultrasound Report Signed Patient: Tori Aguilar#: [id number] 5 : 1995Acct:[id number] Age/Sex: 27 / FADM Date: 01/16/23 Loc: HO.MAMMO Attending Dr: Yuly Guzman CNM Ordering Physician: YULY GUZMAN CNM Date of Service: 01/16/23 Procedure(s): US breast LT limited mamm only Accession Number(s): [id number] cc: YULY GUZMAN CNM EXAMINATION: US DIAGNOSTIC [...] in OV> 01/16/23 1531 DD/ 1500 TD/TT: Dump Grader: Yuly Guzman CNM IMG US PROCEDURES Final R esult documented in this encounter Visit Diagnoses Diagnosis Mastodynia of left breast- Primary documented in this encounter Additional Health Concerns Assessment Noted Time PHQ-9 Depression Total Score: 8 06/29/19 23 2:00 PM EST documented as of this encounter Care Teams Lap Machine Tender Relationship Specialty Start Date End Date Ibeth Lassiter MD [address] [place] [address] PCP - General Family Medicine 12/16/21 documented as of this encounter
--- OUTSIDE RECORDS SUMMARY | 2024-07-31 13:52 | XMS_ITS | Encounter Summary ---
Author Organization [employer] Address [address] [facility] [facility] [address] 7[address] [place] [address] Care Team Providers Care Mounter Brass Wind Instruments Name Role Phone Ibeth Lassiter MD Primary Care Provider [phone] Reason for Visit * Reason Comments Med Refill Encounter Details Date Type Department Care Team ([facility] st Contact Info) Description 06/19/2024 Refill [facility] MEDICINE [address] [place] [address] Ibeth Lassiter MD [address] [place], [place] [phone] Alcohol-induced chronic pancreatitis (CMS/HCC) Social History Tobacco [...] Description 09/04/2024 2:00 PM EDT Clinical Support [facility] MED & PEDS [address] [place] [address] Anastasiia Ocampo RN [address] [place] [address] 09/10/2024 11:30 AM EDT Office Visit [facility] MED & PEDS [address] [place] [address] Rosalina Mathews MD [address] [place] [address] documented as of this encounter Visit Diagnoses Diagnosis Alcohol-induced chronic pancreatitis (CMS/HCC) Chronic pancreatitis documented in this encounter Additional Health Concerns Assessment Noted Time PHQ-9 Depression Total Score: 22 025 10:04 AM EST documented as of this encounter Care Teams Mounter Brass Wind Instruments Relationship Specialty Start Date End Date Ibeth Lassiter MD [address] [place] [address] PCP - General Family Medicine 12/16/21 documented as of this encounter
--- OUTSIDE RECORDS SUMMARY | 2024-07-31 13:52 | XMS_ITS | Encounter Summary ---
Author Organization [employer] Address [address] [facility] 7t [place] [address] Care Team Providers Care Still Worker Helper Name Role Phone Ibeth Lassiter MD Primary Care Provider [phone] Reason for Visit * Reason Comments Transition Of Care (Tcm) HDF scheduled Encounter Details Date Type Department Care Team ([facility] st Contact Info) Description 07/08/2024 Patient Outreach [facility] MEDICINE [address] [place] [address] Ibeth Lassiter MD [address] [place] [address] Transition Of Care (Tcm) (HDF scheduled) Social [...] Admission/Visit 06/03/24 Date of Discharge 07/06/24 Facility [facility] Diagnosis chronic pancreatittis Disposition Discharged Home Follow-Up [...] Wednesdays, and Walk-In Urgent Care Located in [facility]. Patient provided with after-hours line for [facility], , which offer night time triage service and option to transfer to manual control auger press operator provider if needed. [facility] discharge summary has been scanned into patient chart for review documented in this encounter Plan of Treatment Upcoming Encounters Date Type Department Care Team (Late st Contact Info) Description 09/04/2024 2:00 PM EDT Clinical Support [facility] MED & PEDS [address] [place] [address] Anastasiia Ocampo, EL [address] [place] [address] 09/10/2024 11:30 AM EDT Office Visit [facility] MED & PEDS [address] [place], [place] [phone] Rosalina Mathews MD 505 [place] [address] documented as of this encounter Visit Diagnoses Not on filedocumented in this encounter Additional Health Concerns Assessment Noted Time PHQ-9 Depression Total Score: 22 025 10:04 AM EST documented as of this encounter Care Teams Still Worker Helper Relationship Specialty Start Date End Date Ibeth Lassiter MD [address] [place] [address] PCP - General Family Medicine 12/16/21 documented as of this encounter
--- OUTSIDE RECORDS SUMMARY | 2024-07-31 13:52 | XMS_ITS | Encounter Summary ---
Author Organization [employer] Address [address] [facility] 7t [place] [address] Care Team Providers Care Assistant Professor Of Geography Name Role Phone Ibeth Lassiter MD Primary Care Provider [phone] Reason for Visit * Reason Comments Care Coordination Outreach Encounter Details Date Type Department Care Team (Latest Contact Info) Description 07/02/2024 Patient Outreach [facility] MED & PEDS [address] [place] [address] Ibeth Lassiter MD [address] [place] [address] Care Coordination (Outreach) Social History Tobacco Use [...] Wednesdays, and Walk-In Urgent Care Located in [facility]. Patient provided with after-hours line for [facility], , which offer night time triage service and option to transfer to special weapons unit officer provider if needed. Patient verbalizes understanding, and able to repeat back to loan underwriter. A follow up call willbe placed within 10 days, patient agrees with plan. documented in this encounter Plan of Treatment Upcoming Encounters Date Type Department Care Team ([facility] st Contact Info) Description 09/04/2024 2:00 PM EDT Clinical Support [facility] MED & PEDS [address] [place] [address] Anastasiia Ocampo, RN [address] [place] [address] 09/10/2024 11:30 AM EDT Office Visit [facility] MED & PEDS [address] [place] [address] Rosalina Mathews MD [address] [place] [address] documented as of this encounter Visit Diagnoses Not on filedocumented in this encounter Additional Health Concerns Assessment Noted Time PHQ-9 Depression Total Score: 22 025 10:04 AM EST documented as of this encounter Care Teams Assistant Professor Of Geography Relationship Specialty Start Date End Date Ibeth Lassiter MD [address] [place] [address] PCP - General Family Medicine 12/16/21 documented as of this encounter
--- OUTSIDE RECORDS SUMMARY | 2024-07-31 13:52 | XMS_ITS | Encounter Summary ---
Author Organization [employer] Address [address] [facility] 7t [place] [address] Care Team Providers Care Loan Servicing Specialist Name Role Phone Ibeth Lassiter MD Primary Care Provider [phone] Reason for Visit * Reason Comments Transition Of Care (Tcm) Encounter Details Date Type Department Care Team ([facility] st Contact Info) Description 07/16/2024 Patient Outreach [facility] MED & PEDS [address] [place] [address] Ibeth Lassiter MD [address] [place] [address] Transition Of Care (Tcm) Social History Tobacco [...] 10:50 AM EST Transition of Care Note Deepti Aguilar is going through a recent transition of care. * Gayle Garcia RN - 07/16/2024 10:50 AM EST TC placed to pt and LVM to call back the office documented in this encounter Plan of Treatment Upcoming Encounters Date Type Department Care Team (Late st Contact Info) Description 09/04/2024 2:00 PM EDT Clinical Support [facility] MED & PEDS [address] [place] [address] Anastasiia Ocampo RN [address] [place] [address] 09/10/2024 11:30 AM EDT Office Visit [facility] MED & PEDS [address] [place] [address] Rosalina Mathews MD [address] [place] [address] documented as of this encounter Visit Diagnoses Not on filedocumented in this encounter Additional Health Concerns Assessment Noted Time PHQ-9 Depression Total Score: 22 025 10:04 AM EST documented as of this encounter Care Teams Loan Servicing Specialist Relationship Specialty Start Date End Date Ibeth Lassiter MD [address] [place] [address] PCP - General Family Medicine 12/16/21 documented as of this encounter
--- OUTSIDE RECORDS SUMMARY | 2024-07-31 13:52 | XMS_ITS | Encounter Summary ---
Author Organization [employer] Address [address] [facility] 7t [place] [address] Care Team Providers Care Kiln Fireman Name Role Phone Ibeth Lassiter MD Primary Care Provider [phone] Reason for Visit * Reason Comments Care Coordination Outreach Encounter Details Date Type Department Care Team (Latest Contact Info) Description 07/11/2024 Patient Outreach [facility] MED & PEDS [address] [place] [address] Ibeth Lassiter MD [address] [place] [address] Care Coordination (Outreach) Social History Tobacco Use [...] and Walk-In Urgent Care Located in [facility] of [facility]. Patient provided with after-hours line for [facility], , which offer night time triage service and option to transfer to television mechanic provider if needed. CHW discussed with the [...] Upcoming Encounters Date Type Department Care Team ([facility] st Contact Info) Description 09/04/2024 2:00 PM EDT Clinical Support [facility] MED & PEDS [address] [place] [address] Anastasiia Ocampo EL [address] [place] [address] 09/10/2024 11:30 AM EDT Office Visit [facility] MED & PEDS [address] [place] [address] Rosalina Mathews MD [address] [place] [address] documented as of this encounter Visit Diagnoses Not on filedocumented in this encounter Additional Health Concerns Assessment Noted Time PHQ-9 Depression Total Score: 22 025 10:04 AM EST documented as of this encounter Care Teams Kiln Fireman Relationship Specialty Start Date End Date Ibeth Lassiter MD [address] [place] [address] PCP - General Family Medicine 12/16/21 documented as of this encounter
--- OUTSIDE RECORDS SUMMARY | 2024-07-31 13:52 | XMS_ITS | Encounter Summary ---
Author Organization [employer] Address [address] [facility] [address] [place] [address] Care Team Providers Care Fur Buyer Name Role Phone Ibeth Lassiter MD Primary Care Provider [phone] Encounter Details Date Type Department Care Team (Late st Contact Info) Description 07/05/2024 Orders Only [facility] External Provider, [facility] Social History Tobacco Use Types Packs/Day Years [...] 2:00 PM EDT Clinical Support [facility] MED & PEDS 505 [place] [address] Anastasiia Ocampo RN [address] [place] [address] 09/10/2024 11:30 AM EDT Office Visit [facility] MED & PEDS [address] [place] [address] Rosalina Mathews MD [address] [place] [address] documented as of this encounter Procedures Procedure [...] EST Narrative 07/06/2024 11:34 AM EST ? [place] [facility] ?[address] ?[place] [address] ? Magnetic Resonance Report ? Signed ? Patient: Aguilar,Deepti ?MR#: [id number] ?? 5 ? : 1995 ?Acct:[id number] ? Age/Sex: 28 / F ?ADM Date: 07/05/24 ? Loc: HO.S3 ?372-1 ? Attending Dr: Alexandro Garza MD ? Ordering Physician: Chris Chandler MD ?? Date of Service: 07/06/24 ?? Procedure(s): MR abdomen wo/w con ?? Accession Number(s): [id number] ? cc: Ibeth Lassiter MD; Chris Chandler [...] by Castro Gomez MD in OV> ? 07/06/243 ? DD/ 31 ? TD/TT: 07/06/241131 ? Chapter Relations Administrator: ? Procedure Note Yumiko Shaffer - 07/06/[address] [address] Magnetic Resonance Report Signed Patient: Tori Aguilar#: [id number] 5 : 1995Acct:[id number] Age/Sex: 28 / FADM Date: 07/05/24 Loc: HO.S3 372-[address]: Alexandro Garza MD Ordering Physician: Chris Chandler MD Date of Service: 07/06/24 Procedure(s): MR abdomen wo/w con Accession Number(s): [id number] cc: Ibeth Lassiter MD; Chris Chandler MD [...] 07/06/24 1133 DD/ 1132 TD/TT: 07/06/24 1132 Chapter Relations Administrator: [facility] External Provider IMG MRI PROCEDURES Final Result * CT Abdomen Pelvis w/ Contrast (07/05/2024 2:58 AM EST) Anatomical Region Laterality Modality Body, Pelvis, Abdomen Computed T omography 07/05/2024 2:58 AM EST Narrative 07/05/2024 2:59 AM EST ? [facility] ?[address] ?[place] [address] ? CT Scan Report ? Signed ? Patient: Aguilar,Deepti ?MR#: [id number] ?? 5 ? : 1995 ?Acct:[id number] ? Age/Sex: 28 / F ?ADM Date: 07/05/25 ? Loc: HO.ED ? Attending Dr: ? Ordering Physician: Katarzyna Hui ?? Date of Service: 07/05/24 ?? Procedure(s): CT abdomen pelvis w IV con ?? Accession Number(s): [id number] ? cc: Katarzyna Hui; Ibeth Lassiter MD ? Report Number: ?? [id number]: Total DLP = ??413.00 mGy-cm ? CLINICAL [...] DD/ 0258 ? TD/TT: 07/05/24 0258 ? Chapter Relations Administrator: ? Procedure Note Yumiko Shaffer - 07/05/2024 [place] [address] [facility] [place] [address] CT Scan Report Signed Patient: Deepti Aguilar#: [id number] 5 : 1995Acct:[id number] Age/Sex: 28 / FADM Date: 07/05/24 Loc: HO.ED Attending Dr: Ordering Physician: Katarzyna Hui Date of Service: 07/05/24 Procedure(s): CT abdomen pelvis w IV con Accession Number(s): [id number] cc: Katarzyna Hui; Ibeth Lassiter MD Report Number: [id number]: Total DLP = 413.00 mGy-cm CLINICAL HISTORY: [...] by Sacha Mckeon MD in OV> 07/05/24 0259 DD/ 7 TD/TT: 07/05/24257 Chapter Relations Administrator: [facility] External Provider IMG CT PROCEDURES Final Result documented in this encounter Visit Diagnoses Not on filedocumented in this encounter Additional Health Concerns Assessment Noted Time PHQ-9 Depression Total Score: 22 025 10:04 AM EST documented as of this encounter Care Teams Fur Buyer Relationship Specialty Start Date End Date Ibeth Lassiter MD [address] [place] [address] PCP - General Family Medicine 12/16/21 documented as of this encounter
--- OUTSIDE RECORDS SUMMARY | 2024-07-31 13:52 | XMS_ITS | Encounter Summary ---
Author Organization [employer] Address [address] [facility] [address] 7t [place] [address] Care Team Providers Care Technical Advisor Name Role Phone Ibeth Lassiter MD Primary Care Provider [phone] Reason for Visit * Reason Onset Date Comments Appointment Request 06/27/2024 Encounter Details Date Type Department Care Team ([facility] st Contact Info) Description 06/27/2024 Telephone [facility] MEDICINE [address] [place] [address] Ibeth Lassiter MD [address] [place] [address] Appointment Request Social History Tobacco Use Types [...] R/s appt from 06/12. Contact pt at [phone] documented in this encounter Plan of Treatment Upcoming Encounters Date Type Department Care Team ([facility] st Contact Info) Description 09/04/2024 2:00 PM EDT Clinical Support [facility] MED & PEDS [address] [place] [address] Anastasiia Ocampo RN [address] [place] [address] 09/10/2024 11:30 AM EDT Office Visit [facility] MED & PEDS [address] [place] [address] Rosalina Mathews MD [address] [place] [address] documented as of this encounter Visit Diagnoses Not on filedocumented in this encounter Additional Health Concerns Assessment Noted Time PHQ-9 Depression Total Score: 22 025 10:04 AM EST documented as of this encounter Care Teams Technical Advisor Relationship Specialty Start Date End Date Ibeth Lassiter MD [address] [place] [address] PCP - General Family Medicine 12/16/21 documented as of this encounter
--- OUTSIDE RECORDS SUMMARY | 2024-07-31 13:52 | XMS_ITS | Clinical Summary ---
Author Organization [employer] Address [address] [facility] [address] [place] [address] Care Team Providers Care Interventional Neuroradiologist Name Role Phone Ibeth Lassiter MD Primary Care Provider [phone] Allergies No known active allergies Medications * [...] becomes available. 2 each 024 2024 Active Creon 33127-122153 units capsule delayed-release particles capsule TAKE 1 CAPSULE BY MOUTH THREE TIMES DAILY TAKE WITH MEAL AND SNACK 024 Active OLANZapine zydis (ZyPREXA ZYDIS) 20 MG disintegrating tablet TAKE 1 TABLET BY MOUTH AT BEDTIME 30 tablet 2 024 Active pantoprazole (Protonix) 40 MG EC tablet Take 1 tablet (40 mg) by mouth 2 times daily. Do not crush, chew, or split. 180 tablet 1 024 Active pregabalin (Lyrica) 100 MG capsule Take 1 capsule by mouth 2 times daily. 025 Active meloxicam (Mobic) 15 MG tablet Take 1 tablet (15 mg) by mouth Once per day. 30 tablet 11 025 2025 Active morphine (MSIR) 15 MG tabletIndications :Alcohol-induced chronic pancreatitis (CMS/HCC) Take 1.5 tablets (22.5 mg) by mouth every 12 (twelve) hours for 28 days. Take 2 tablets BID (decr qty to 100 tablets) 100 tablet 025 2024 Active hydrOXYzine pamoate (Vistaril) 50 MG capsuleIndication s:Anxiety Take 1 capsule (50 mg) by mouth if needed in the morning and at bedtime for anxiety. 60 capsule 025 2024 Active sertraline (Zoloft) 50 MG tabletIndications :Severe episode of recurrent major depressive disorder, without psychotic features (CMS/HCC) Take 1 tablet (50 mg) by mouth in the morning. Take 1/2 tab (25 mg) by mouth in am for 7 days then take 1 tab (50 mg) by mouth in am. 30 tablet 025 2024 Active mirtazapine (Remeron) 7.5 MG tabletIndications :Severe episode of recurrent major depressive disorder, without psychotic features (CMS/HCC) Take 1 tablet (7.5 mg) by mouth at bedtime. 30 tablet 025 2024 Active triamcinolone (Kenalog) 0.1 % creamIndications: Erythema [...] cleanup (will not trigger notification to Pharmacy)) hydrOXYzine pamoate (Vistaril) 50 MG capsuleIndication s:Anxiety TAKE 1 CAPSULE BY MOUTH EVERY 6 HOURS NEEDED FOR ANXIETY 120 capsule 1 024 2024 Discontinued(R eorder (will not trigger notification to Pharmacy)) mirtazapine (Remeron) 15 MG tablet Take 1 tablet (15 mg) by mouth at bedtime. 90 tablet 1 024 2024 Discontinued(R eorder (will not trigger notification to Pharmacy)) morphine (MSIR) 15 MG tabletIndications :Alcohol-induced chronic pancreatitis (CMS/HCC) Take 1.5 tablets (22.5 mg) by mouth every 12 (twelve) hours for 28 days. Take 2 tablets BID (decr qty to 100 tablets) 100 tablet 025 2024 Discontinued(R eorder (will not trigger notification [...] intervention , Patient to reach out to [facility] team as needed, Comply with medication , Patient to engage in OP therapy , and Patient to reach out to [facility] as needed. Referral for Casing Cooker will be placed. Acute hemorrhagic pancreatitis 09/18/2023 [...] (11/06/2022 9:25 AM EDT): Will refer to steel tester for further evaluation. Reproduced by examination, likely [...] intervention , Patient to reach out to [facility] team as needed, Comply with medication , Patient to engage in OP therapy , and Patient to reach out to [facility] as needed. Referral for Casing Cooker will be placed. Assessment & Plan (03/30/2023 [...] hemoglobin electrophoresis. 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 Assessment & Plan (10/23/2022 4:36 [...] in-home therapist who has been assigned by [facility] to her child for bipolar disorder and [...] organization. Date Type Department Care Team Description 07/30/2024 Orders Only GENERIC EXTERNAL DATA DEPARTMENT Provider, Generic External Data 07/24/2024 2:30 PM EST Clinical Support [facility] [address] [place] [address] Anastasiia Ocampo RN Chronic pancreatitis, unspecified pancreatitis type (CMS/HCC) 07/24/2024 Travel 07/18/2024 Telephone [facility] [address] [place] [address] Ibeth Lassiter MD Medication Question 07/16/2024 Patient Outreach [facility] [address] [place] [address] Ibeth Lassiter MD Transition Of Care (Tcm) 07/16/2024 Orders Only GENERIC EXTERNAL DATA DEPARTMENT Provider, Generic External Data 07/16/2024 Refill [facility] [address] [place] [address] Solis Taylor MD Alcohol-induced chronic pancreatitis (CMS/HCC) 07/14/2024 Patient Outreach [facility] [address] [place] [address] Ibeth Lassiter MD Transition Of Care (Tcm) 07/11/2024 9:30 AM EST Office Visit [facility] [address] [place] [address] Rosalina Mathews MD Chronic pancreatitis, unspecified pancreatitis type (CMS/HCC) (Primary Dx) 07/11/2024 Patient Outreach [facility] [address] [place] [address] Ibeth Lassiter MD Care Coordination (Outreach) 07/11/2024 Travel 07/11/2024 Patient Outreach [address] [address] Ibeth Lassiter MD Transition Of Care (Tcm) 07/08/2024 Patient Outreach [address] [address] Ibeth Lassiter MD Transition Of Care (Tcm) (HDF scheduled) 07/08/2024 Telephone [facility] [address] [place] [address] Ibeth Lassiter MD Hospital Follow-up; Care Coordination ([facility] program graduation.) 07/05/2024 Orders Only [facility] External Provider, [facility] 07/02/2024 Patient Outreach [facility] [address] [place] [address] Ibeth Lassiter MD Care Coordination (Outreach) 06/30/2024 Travel 06/30/2024 Telephone [facility] [address] [place] [address] Anastasiia Ocampo, EL 06/30/2024 Telephone [facility] [address] [place] [address] Anastasiia Ocampo, RN 06/27/[address] [address] Ibeth Lassiter MD Appointment Request 06/19/2024 11:30 AM EST Office Visit [facility] [address] [place] [address] Solis Taylor MD Chronic abdominal pain (Primary Dx); Alcohol-induced chronic pancreatitis ([facility]/HCC) 06/19/2024 Refill [facility] [address] [place] [phone] Ibeth Lassiter MD Alcohol-induced chronic pancreatitis (CMS/HCC) 06/19/2024 Travel 06/18/2024 Telephone [facility] [address] [place] [address] Ibeth Lassiter MD Chart Prep 06/17/2024 Patient Outreach [facility] [address] [place] [address] Ibeth Lassiter MD Care Coordination (Outreach) 06/16/2024 Patient Outreach [address] [address] Ibeth Lassiter MD Transition Of Care (Tcm) 06/16/2024 Orders Only [facility] External Provider, [facility] 06/15/2024 Orders Only GENERIC EXTERNAL DATA DEPARTMENT Provider, Generic External Data 06/13/2024 Patient Outreach [address] [address] Ibeth Lassiter MD Transition Of Care (Tcm) 06/11/2024 Telephone [facility] [address] [place] [address] Ibeth Lassiter MD Appointment Request 06/09/2024 Patient Outreach [facility] [address] [place] [address] Ibeth Lassiter MD Care Coordination (Outreach) 06/09/2024 Patient Outreach [facility] [address] [place] [address] Ibeth Lassiter MD Transition Of Care (Tcm) 06/06/2024 Orders Only GENERIC EXTERNAL DATA DEPARTMENT Provider, Generic External Data 06/02/2024 1:15 PM EST Office Visit [facility] [address] [place] [address] Ibeth Lassiter MD History of cholecystectomy (Primary Dx); Hematemesis, unspecified whether nausea present; Major depressive disorder, remission status unspecified, unspecified whether recurrent 06/02/2024 Travel 05/30/2024 Telephone [facility] [address] [place] [address] Ibeth Lassiter MD chart prep 05/29/2024 Travel 05/29/2024 Telephone [facility] [address] [place] [address] Ibeth Lassiter MD Appointment Request 05/26/2024 Patient Outreach [facility] [address] [place] [address] Ibeth Lassiter MD Transition Of Care (Tcm) (HDF- Scheduled ) 05/22/2024 Patient Outreach [facility] [address] [place] [address] Ibeth Lassiter MD Transition Of Care (Tcm) (HDF- Unscheduled SECOND LVM) 05/21/2024 Refill [facility] [address] [place] [address] Ibeth Lassiter MD 05/20/2024 Patient Outreach [facility] [address] [place] [address] Ibeth Lassiter MD Care Coordination (Outreach) 05/19/2024 Refill [facility] [address] [place] [address] Ibeth Lassiter MD Alcohol-induced chronic pancreatitis (CMS/HCC) 05/16/2024 Telephone [facility] [address] [place] [address] Ibeth Lassiter MD Medication Question 05/16/2024 Patient Outreach [facility] [address] [place] [address] Ibeth Lassiter MD Pre-visit Planning (HDF- Unscheduled LVM) 05/15/2024 Telephone [facility] [address] [place] [address] Ibeth Lassiter MD 05/15/2024 Refill [facility] [address] [place] [address] Ibeth Lassiter MD Alcohol-induced chronic pancreatitis (CMS/HCC) 05/09/2024 Patient Outreach [facility] [address] [place] [address] Ibeth Lassiter MD Transition Of Care (Tcm) 05/09/2024 Orders Only GENERIC EXTERNAL DATA DEPARTMENT Provider, Generic External Data 05/08/2024 Telephone [facility] [address] [place], [place] [phone] Ibeth Lassiter MD Appointment Request 05/06/2024 Patient Outreach [facility] [address] [place] [address] Ibeth Lassiter MD Care Coordination (Outreach) from Last 3 Months Immunizations Name Administration Dates Next Due DTaP, 5 pertussis antigens 12/24/2000,,02/12/1996,12/12,1995 HPV, Quadrivalent 01/10/2008,10/07/2007,02/07/20 07 Hep B, Adolescent or Pediatric 02/12/1996,1995,1995 Hib ([facility]) 01/27/1997, 6,1995,11/24 IPV 12/24/2000, 6,1995,10/24 Influenza, Recombinant, inje ctable, preservative free 07/23/2009 Influenza, live, intranasal 04/04/2011 Influenza, seasonal, injecta ble, preservative free 07/05/2024,05/15/2014 MMR 09/08/1999,01/27/1997 Meningococcal MPSV4 07/08/2008 Novel [id number], all formulations 07/23/2009 Rho(D)-IG IM 05/22/2020,03/20/2020,11/16/2019 Tdap [...] 09/04/2024 2:00 PM EDT Clinical Support [facility] [address] [place] [address] Anastasiia Ocampo RN [address] [place] [address] 09/10/2024 11:30 AM EDT Office Visit [facility] [address] [place] [address] Rosalina Mathews MD [address] [place] [address] Health Maintenance Due Date Last Done Comments [...] 2014 (Patient Refused) SDOH Screening 04/07/2025 04/07/2024 Depression Screening 06/06/2025 06/06/2024, 06/06/19 Tobacco Screening 07/23/2025 07/23/2024 Pap Smear 11/28/2025 11/28/2022 DTaP/Tdap/Td Vaccines (11 [...] Comments CT ABDOMEN PELVIS W CONTRAST Routine 2024 1:34 AM EST URINALYSIS, COMPLETE, WITH REFLEX TO CULTURE Routine 07/30/2024 8:54 PM EST ETHANOL Routine 07/30/2024 8:54 PM EST HCG, TOTAL, QN Routine 07/30/2024 8:54 PM EST LIPASE Routine 07/30/2024 8:54 PM EST COMPREHENSIVE METABOLIC PANEL Routine 07/30/2024 8:54 PM EST CBC WITH AUTO DIFFERENTIAL Routine 07/30/2024 8:54 PM EST POCT ANGE-14 URINE DRUG SCREEN Routine 07/24/2024 2:24 PM EST Chronic pancreatitis, unspecified pancreatitis type (CMS/HCC) US ABDOMEN COMPLETE Routine 07/16/2024 3 :02 PM EST LIPASE Routine 07/16/2024 7:07 AM EST [...] 11:43 PM EST HEPATIC FUNCTION PANEL Routine 06/15/2024 11:43 PM EST COMPREHENSIVE METABOLIC PANEL Routine [...] W CONTRAST Routine 05/09/2024 12:00 AM EST HEMOGLOBIN A1C Routine 02/29/2024 10:45 [...] Recently Relevant to Health Maintenance Results * CT Abdomen Pelvis w/ Contrast (2024 1:34 AM EST) Only the most recent of4 resultswithin the time period is included. Anatomical Region Laterality Modality Body, Pelvis, Abdomen Computed T omography 2024 1:34 AM EST Narrative 2024 1:36 AM EST ? [facility] ?[address] ?[place] [address] ? CT Scan Report ? Signed ? Patient: Aguilar,Deepti ?MR#: [id number] ?? 5 ? : 1995 ?Acct:[id number] ? Age/Sex: 29 / F ?ADM Date: 07/30/24 ? Loc: HO.ED ? Attending Dr: ? Ordering Physician: Katarzyna Hui ?? Date of Service: 07/31/24 ?? Procedure(s): CT abdomen pelvis w IV con ?? Accession Number(s): [id number] ? cc: Katarzyna Hui; Ibeth Lassiter MD ? Report Number: ?? [id number]: Total DLP = ??431.00 mGy-cm ? CLINICAL HISTORY: pain, pancreatitis ? CT abdomen and pelvis with contrast ? Comparison: MR - MR ABDOMEN WO/W CON - 07/06/24 09:42 EST ? Findings: ?? No consolidation or effusion. ?? Absent pancreatic tail. No peripancreatic inflammatory changes or ?? pancreatic ductal dilatation. ?? Cholecystectomy. No abnormal biliary ductal dilatation. ?? Normal liver, spleen, adrenal glands, and kidneys. ?? No urinary tract calculus, obstruction, or inflammation. ?? Normal stomach, small bowel, and colon. ?? No free fluid or free air. ?? Normal uterus and ovaries. ?? Bones intact. ? IMPRESSION: ?? No findings of acute pancreatitis. No acute abnormality otherwise. ? This document has been electronically signed by: Jessee Eng MD on ?? 2024 01:34:17 ? Dictated By: ?Jessee Eng MD ? Signed By: ?<Electronically signed by Jessee Eng MD in OV> ? 07/31/24134 ? DD/ 0134 ? TD/TT: 07/31/24133 ? Wooden Box Maker: ? Procedure Note Edmund, Image - [address] [address] [address] Scan Report Signed Patient: Tori Aguilar#: [id number] 5 : 1995Acct:[id number] Age/Sex: 29 / FADM Date: 07/30/24 Loc: HO.ED Attending Dr: Ordering Physician: Katarzyna Hui Date of Service: 07/31/24 Procedure(s): CT abdomen pelvis w IV con Accession Number(s): [id number] cc: Katarzyna Hui; Ibeth Lassiter MD Report Number: [id number]: Total DLP = 431.00 mGy-cm CLINICAL HISTORY: pain, pancreatitis CT abdomen and pelvis with contrast Comparison: MR - MR ABDOMEN WO/W CON - 07/06/24 09:42 EST Findings: No consolidation or effusion. Absent pancreatic tail. No peripancreatic inflammatory changes or pancreatic ductal dilatation. Cholecystectomy. No abnormal biliary ductal dilatation. Normal liver, spleen, adrenal glands, and kidneys. No urinary tract calculus, obstruction, or inflammation. Normal stomach, small bowel, and colon. No free fluid or free air. Normal uterus and ovaries. Bones intact. IMPRESSION: No findings of acute pancreatitis. No acute abnormality otherwise. This document has been electronically signed by: Jessee Eng MD on 2024 01:34:17 Dictated By: Jessee Eng MD Signed By: <Electronically signed by Jessee Eng MD in OV> 07/31/24134 DD/ 3 TD/TT: 07/31/24133 Wooden Box Maker: us [facility] External Provider IMG CT PROCEDURES Edited Result - Final * Ethanol (07/30/2024 8:54 PM EST) Only the most recent of2 resultswithin the time period is included. ETHANOL (MG/DL) IN SER/PLAS <10 mg/dL [facility] Comment:Serum/plasma ethanol results are to be used formedical/treatment purposes only. 07/30/2024 8:54 PM EST 07/30/2024 8:57 PM EST us Generic External Data Provider LAB BLOOD ORDERAB LES Final Result Performing Organization Address [facility] Co de Phone Number [facility] [address] [place] [phone] * Urinalysis, Complete, with Reflex to Culture (07/30/2024 8:54 PM EST) Only the most recent of2 resultswithin the time period is included. Color Urine Yellow [facility] Appearance Urine Clear [facility] PH 6.0 5.0 - 9.0 [facility] Glucose Urine UA Negative Negative mg/dL [facility] Urine Blood Negative Negative [facility] Specific [place] - Urine 1.025 1.005 - 1.025 [facility] Urine Protein Trace Neg-Trace mg/dL [facility] Urine Ketones Trace Negative mg/dL [facility] Nitrite Urine Negative Negative [facility] Leukocyte Esterase Urine Negative Negative [facility] RBC Urine 0-2 0 - 2 /HPF [facility] Urine WBC 0-5 0 - 5 /HPF [facility] Urine Squamous Epithelial Cell 6-10 0 - 2 /HPF [facility] Urine Bacteria None Seen None Seen [facility] Hyaline Casts, Urine 0-2 0 - 2 /LPF [facility] 07/30/2024 8:54 PM EST 07/30/2024 8:57 PM EST Narrative [facility] - 07/30/2024 9:31 PM EST [id number], Clean Catch Generic External Data Provider LAB URINE ORDERAB LES Final Result Performing Organization Address [facility] Co de Phone Number [facility] [address] [place] [phone] * (ABNORMAL) CBC auto differential (07/30/2024 8:54 PM EST) Only the most recent of4 resultswithin the time period is included. White Blood Count 6.5 4.8 - 10.8 X10*3/uL [facility] Red Blood Count 4.76 4.20 - 5.50 X10*6/uL [facility] Hemoglobin 11.8(L) 12.0 - 16.0 g/dl [facility] Hematocrit 36.5(L) 37.0 - 47.0 % [facility] Mean Corpuscular Volume 76.7(L) 80.0 - 98.0 fL [facility] Mean Corpuscular Hemoglobin 24.8(L) 27.0 - 33.0 pg [facility] Mean Corpuscular HGB Conc 32.3 31.0 - 35.0 g/dl [facility] Red Cell Distribution Width 15.3 11.0 - 16.0 % [facility] Platelet Count 274 160 - 400 X10*3/uL [facility] Mean Platelet Volume 10.6 9.4 - 12.3 fL [facility] Neutrophils Percent Auto 47.4 45 - 73 % [facility] Imm Gran Pct Auto 0.2 0.0 - 0.4 % [facility] Lymphocytes Percent Auto 41.7(H) 20 - 40 % [facility] Monocytes Percent Auto 7.4 2 - 11 % [facility] Eosinophils Percent Auto 2.5 0 - 4 % [facility] Basophils Percent Auto 0.8 0 - 2 % [facility] NRBC Pct Auto 0.0 0.0 - 0.2 /100WBC [facility] Neutrophils Absolute Auto 3.1 2.0 - 8.3 x10*3/uL [facility] Imm Gran Abs Auto 0.01 0.00 - 0.03 X10*3/uL [facility] Lymphocytes Absolute Auto 2.7 1.2 - 4.9 X10*3/uL [facility] Monocytes Absolute Auto 0.5 0.1 - 1.2 X10*3/uL [facility] Eosinophils Absolute Auto 0.2 0.0 - 0.4 X10*3/uL [facility] Basophils Absolute Auto 0.1 0.0 - 0.2 X10*3/uL [facility] NRBC Abs Auto 0.000 0.0 - 0.012 X10*3/uL [facility] 07/30/2024 8:54 PM EST 07/30/2024 8:57 PM EST Generic External Data Provider LAB BLOOD ORDERAB LES Final Result Performing Organization Address [facility] Co de Phone Number [facility] [address] [place] [phone] * hCG, Total, Quantitative (07/30/2024 8:54 PM EST) Only the most recent of2 resultswithin the time period is included. HCG Quantitative <2 mIU/mL [facility] Comment:Weeks post LMP Appro ximate hCG(Last Menstrual Period) Range (mIU/ml)3 - 4 weeks 9 - 1304 - 5 weeks 75 - 2,6005 - 6 weeks 850 - 20,8006 - 7 weeks 4000 - 100,2007 - 12 weeks 11,500 - 289,87198 - 16 weeks 18,300 - 137,25637 - 29 weeks (2nd trimester) 1,400 - 53,45050 - 41 weeks (3rd trimester) 940 - 60,000The Nunez B- hCG assay is used for the early detection ofpregnancy; it cannot be used to diagnose any conditionunrelated to . If a B-hCG level is not supportedby the clinical evidence, results should be confirmed by analternative method (qualitative urine hCG, for example). 07/30/2024 8:54 PM EST 07/30/2024 8:57 PM EST Generic External Data Provider LAB BLOOD ORDERAB LES Final Result Performing Organization Address [facility] Co de Phone Number [facility] [address] [place] [phone] * (ABNORMAL) Lipase (07/30/2024 8:54 PM EST) Only the most recent of4 resultswithin the time period is included. Lipase <4(L) 8 - 78 U/L [facility] 07/30/2024 8:54 PM EST 07/30/2024 8:57 PM EST us Generic External Data Provider LAB BLOOD ORDERAB LES Final Result [facility] [address] [place] [phone] * (ABNORMAL) Comprehensive Metabolic Panel (07/30/2024 8:54 PM EST) Only the most recent of4 resultswithin the time period is included. Sodium 138 135 - 145 mmol/L [facility] Potassium 3.6 3.3 - 5.1 mmol/L [facility] Chloride 111(H) 96 - 108 mmol/L [facility] Carbon Dioxide 19(L) 22 - 29 mmol/L [facility] Anion Gap 12 12 - 20 [facility] Urea Nitrogen (BUN) 5(L) 9 - 16 mg/dL [facility] Creatinine, Serum 0.64 0.5 - 1.4 mg/dL [facility] Creatinine Clr Calc Pharmacy 113.0 [facility] Comment:Provided height and weight: 162.56 cm,58.9 kg.eGFR (calculated from the MDRD study equation) and eCrCl(calculated from the Cockcroft-Gault equation) are based ondifferent parameters and may not yield comparable results.If eCrCl result is absurd, please check patient'sheight/weight. Estimated Glomerular Filt Rate >60 [facility] Comment:Chronic Kidney Disea se: Estimated GFR < 60 mL/min/1.27f1Sxagbe Kidney Disease: Estimated GFR < 15 mL/min/1.73m2 Glucose 92 60 - 115 mg/dL [facility] Calcium 8.9 8.4 - 10.2 mg/dL [facility] Bilirubin, Total 0.3 0.0 - 1.0 mg/dL [facility] Aspartate Amino Transferase 80(H) 5 - 31 U/L [facility] Alanine Aminotransferase 169(H) 0 - 31 U/L [facility] Total Protein 7.2 6.5 - 8.0 g/dL [facility] Albumin Level 4.2 3.5 - 5.0 g/dL [facility] Alkaline Phosphatase 219(H) 39 - 117 U/L [facility] 07/30/2024 8:54 PM EST 07/30/2024 8:57 PM EST us Generic External Data Provider LAB BLOOD ORDERAB LES Final Result [facility] [address] [place] [phone] [phone] * POCT ANGE-14 Urine Drug Screen (07/24/2024 2:24 PM EST) THC Positive Opiate Screen, Urine Positive Urine Urine specimen obtained by clean catch procedure / Unknown 07/24/2024 2:24 PM EST Narrative Anastasiia Ocampo RN - 07/24/2024 2:24 PM EST Lot# [id number] Exp: 01-21-26 us Ibeth Lassiter MD POINT OF CARE TEST ENTER/EDIT ORDERABLES Final Result * US Abdomen Complete (07/16/2024 3:02 PM EST) Anatomical Region Laterality Modality Abdomen Ultrasound 07/16/2024 3:02 PM EST Narrative 07/16/2024 3:31 PM EST ? [facility] ?[address] ?[place] [address] ? Ultrasound Report ? Signed ? Patient: Aguilar,Deepti ?MR#: [id number] ?? 5 ? : 1995 ?Acct:[id number] ? Age/Sex: 28 / F ?ADM Date: 02/12/25 ? Loc: HO.ED ? Attending Dr: ? Ordering Physician: Dai Torrez ?? Date of Service: 07/16/24 ?? Procedure(s): US abdomen complete ?? Accession Number(s): [id number] ? cc: Dai Torrez; Ibeth Lassiter MD ? EXAMINATION: ?? US ABDOMEN COMPLETE ? CLINICAL INFORMATION: ?? . Left upper quadrant pain. History of pancreatitis.. ? COMPARISON: ?? Correlated to MRI dated July 06, [address] dated July 05, 2024. ? TECHNIQUE: ?? Real-time imaging of the abdominal viscera using grayscale and color ?? Doppler technique. ? FINDINGS: ? PANCREAS: No peripancreatic fluid collections. Inadequate evaluation of ?? the entirety. ? ABDOMINAL AORTA: The proximal, mid, and distal segments are normal in ?? caliber. ? INFERIOR VENA CAVA: Visualized portions are normal. ? LIVER: Liver measures 15 cm. No nodular contour. No solid or cystic ?? lesion. Normal echotexture. No intrahepatic biliary ductal dilatation. ? GALLBLADDER: Status post cholecystectomy. ? COMMON BILE DUCT: 6 mm in diameter.. ? RIGHT KIDNEY: 10 cm. Normal echotexture. Normal renal cortical ?? thickness. No hydronephrosis. No solid or cystic lesion. Normal flow on ?? color Doppler interrogation of the renal hilum. ? LEFT KIDNEY: 11 cm. Normal echotexture. Normal renal cortical ?? thickness. No hydronephrosis. No solid or cystic lesion. Normal flow on ?? color Doppler interrogation of the renal hilum. ? SPLEEN: 12 cm.. ? FREE FLUID: None. ? US/US abdomen complete ?? IMPRESSION: ?? Status post cholecystectomy. ?? No hydronephrosis in either kidney. ?? No ascites. ?? Up to normal limits spleen size. ?? Normal liver. ?? Inadequate evaluation of the pancreas. ? Electronically signed by: ??Ryan Wilkins MD ??07/16/2024 03:28 PM ?? EST RP ? Dictated By: ?Ryan Savage MD ? Signed By: ?<Electronically signed by Ryan Samuels MD in OV> ? 07/16/24 1528 ? DD/ 1502 ? TD/TT: 07/16/24 1516 ? Wooden Box Maker: ? Procedure Note Edmund Image - 07/16/2024 [place] [address] Ultrasound Report Signed Patient: Tori Aguilar#: [id number] 5 : 1995Acct:[id number] Age/Sex: 28 / FADM Date: 07/16/24 Loc: HO.ED Attending Dr: Ordering Physician: Dai Torrez Date of Service: 07/16/24 Procedure(s): US abdomen complete Accession Number(s): [id number] cc: Dai Torrez; Ibeth Lassiter MD EXAMINATION: US ABDOMEN COMPLETE CLINICAL INFORMATION: . Left upper quadrant pain. History of pancreatitis.. COMPARISON: Correlated to MRI dated July 06, [address] dated July 05, 2024. TECHNIQUE: Real-time imaging of the abdominal viscera using grayscale and color Doppler technique. FINDINGS: PANCREAS: No peripancreatic fluid collections. Inadequate evaluation of the entirety. ABDOMINAL AORTA: The proximal, mid, and distal segments are normal in caliber. INFERIOR VENA CAVA: Visualized portions are normal. LIVER: Liver measures 15 cm. No nodular contour. No solid or cystic lesion. Normal echotexture. No intrahepatic biliary ductal dilatation. GALLBLADDER: Status post cholecystectomy. COMMON BILE DUCT: 6 mm in diameter.. RIGHT KIDNEY: 10 cm. Normal echotexture. Normal renal cortical thickness. No hydronephrosis. No solid or cystic lesion. Normal flow on color Doppler interrogation of the renal hilum. LEFT KIDNEY: 11 cm. Normal echotexture. Normal renal cortical thickness. No hydronephrosis. No solid or cystic lesion. Normal flow on color Doppler interrogation of the renal hilum. SPLEEN: 12 cm.. FREE FLUID: None. US/US abdomen complete IMPRESSION: Status post cholecystectomy. No hydronephrosis in either kidney. No ascites. Up to normal limits spleen size. Normal liver. Inadequate evaluation of the pancreas. Electronically signed by: Ryan Wilkins MD 07/16/2024 03:28 PM [facility] [place] Dictated By: Ryan Savage MD Signed By: <Electronically signed by Cher Wagner OV> 07/16/24 1528 DD/ 1502 TD/TT: 07/16/24 1516 Wooden Box Maker: [facility] External Provider IMG US PROCEDURES Final Result * MR Abdomen w/ and w/o Contrast (07/06/2024 11:32 AM EST) Anatomical Region Laterality Modality Abdomen Magnetic Resonan ce 07/06/2024 11:3 2 AM EST Narrative 07/06/2024 11:34 AM EST ? [facility] ?[address] ?[place] [address] ? Magnetic Resonance Report ? Signed ? Patient: Aguilar,Deepti ?MR#: [id number] ?? 5 ? : 1995 ?Acct:[id number] ? Age/Sex: 28 / F ?ADM Date: 07/05/24 ? Loc: HO.S3 ?372-1 ? Attending Dr: Alexandro Garza MD ? Ordering Physician: Chris Chandler MD ?? Date of Service: 07/06/24 ?? Procedure(s): MR abdomen wo/w con ?? Accession Number(s): [id number] ? cc: Ibeth Lassiter MD; Chris Chandler [...] ? 07/06/241132 ? DD/ 31 ? TD/TT: 07/06/24 1132 ? Wooden Box Maker: ? Procedure Note Donotuseinterpreter, Image - 07/06/2024 [place] [address] Magnetic Resonance Report Signed Patient: Tori Aguilar#: [id number] 5 : 1995Acct:[id number] Age/Sex: Date: 07/05/24 Loc: .S3 372-[address]: Alexandro Garza MD Ordering Physician: Chris Chandler MD Date of Service: 07/06/24 Procedure(s): MR abdomen wo/w con Accession Number(s): [id number] cc: Ibeth Lassiter MD; Chris Chandler MD [...] 07/06/24 1133 DD/ 1132 TD/TT: 07/06/24 1132 Wooden Box Maker: [facility] External Provider IMG MRI PROCEDURES Final Result * HCG, Qualitative, Urine (06/15/2024 11:43 PM EST) Urine NEGATIVE NEGATIVE [facility] Comment:This test was develo ped to detect early . Falsenegative results may occur after the 5th - 7th week ofpregnancy when using this test method. If clinicallyindicated, consider a serum hCG. 06/15/2024 11:4 3 PM EST 06/15/2024 11:48 PM EST Generic External Data Provider LAB URINE ORDERAB LES Final Result Performing Organization Address City/[facility]/ZIP Co de Phone Number [facility] [address] [place] [phone] * Hepatic Function Panel (06/15/2024 11:43 PM EST) Bilirubin, Direct <0.2 0.0 - 0.5 mg/dL [facility] 06/15/2024 11:4 3 PM EST 06/15/2024 11:48 PM EST Generic External Data Provider LAB BLOOD ORDERAB LES Final Result Performing Organization Address City/[facility]/ZIP Co de Phone Number [facility] [address] [place] [phone] * (ABNORMAL) Urinalysis w/reflex microscopic (06/15/2024 11:42 PM EST) Only the most recent of2 resultswithin the time period is included. Color Urine Yellow [facility] Appearance Urine Clear [facility] PH 6.5 5.0 - 9.0 [facility] Glucose Urine UA Negative Negative mg/dL [facility] Urine Blood Negative Negative [facility] Specific [place] - Urine >=1.030(H) 1.005 - 1.025 [facility] Urine Protein Negative Neg-Trace mg/dL [facility] Urine Ketones Negative Negative mg/dL [facility] Nitrite Urine Negative Negative [facility] Leukocyte Esterase Urine Negative Negative [facility] 06/15/2024 11:4 2 PM EST 06/15/2024 11:48 PM EST Narrative [facility] - 06/15/2024 11:56 PM EST [id number], Clean Catch Generic External Data Provider LAB URINE ORDERAB LES Final Result Performing Organization Address City/[facility]/ZIP Co de Phone Number [facility] [address] [place] [phone] * (ABNORMAL) SARS-CoV-2 RNA, Influenza A/B, and RSV RNA, Ql NAAT (06/06/2024 12:12 PM EST) Influenza A PCR NEGATIVE Negative [facility] Influenza B PCR NEGATIVE Negative [facility] Resp Syncy Virus RNA Qual PCR NEGATIVE Negative [facility] SARS COV2 PCR POSITIVE(A) Negative [facility] Comment:All test results mus t [...] use by authorized laboratories.Testing performed on the [email or web address] GeneXpert utilizingreal-time RT-PCR.All SARS CoV2 and positive influenza A/B results arereported to [facility]. 06/06/2024 12:1 2 PM EST 06/06/2024 12:19 PM EST us Generic External Data Provider LAB MICROBIOLOGY - GENERAL ORDERABLES Final Result [facility] [address] [place] [phone] * Prothrombin Time-INR (06/06/2024 12:12 PM EST) Prothrombin Time 11.6 10.9 - 12.4 SEC [facility] INTERNATIONAL NORM RATIO 1.0 0.9 - 1.1 [facility] Comment:INTERNATIONAL NORMAL IZED RATIO (INR) REFERENCE [...] ORDERAB LES Final Result Performing Organization Address City/[facility] Co de Phone Number [facility] [address] [place] [phone] * Magnesium (06/06/2024 12:12 PM EST) Magnesium 2.0 1.6 - 2.6 mg/dL [facility] 06/06/2024 12:1 2 PM EST 06/06/2024 12:19 PM EST Generic External Data Provider LAB BLOOD ORDERAB LES Final Result Performing Organization Address City/[facility] Co de Phone Number [facility] [address] [place] [phone] * Amylase (06/06/2024 12:12 PM EST) Amylase 73 28 - 100 U/L [facility] 06/06/2024 12:1 2 PM EST 06/06/2024 12:19 PM EST us Generic External Data Provider LAB BLOOD ORDERAB LES Final Result [facility] [address] [place] [phone] * (ABNORMAL) Drug Monitoring, Panel 1, Screen, Urine (05/09/2024 3:48 AM EST) Pathologist [facility] Opiate Screen Urine POSITIVE(A) Not Detect [facility] Comment:Opiate cut-off is 30 0 ng/mL.Positive results are unconfirmed and should not be used fornon-medical purposes. Barbiturates, Urine Not Detected Not Detect [facility] Comment:Barbiturate cut-off is 200 ng/mL.Positive results are unconfirmed and should not be used fornon-medical purposes. Phencyclidine Screen Urine Not Detected Not Detect [facility] Comment:Phencyclidine cut-of f is 25 ng/mL.Positive results are unconfirmed and should not be used fornon-medical purposes. Amphetamine Screen Urine Not Detected Not Detect [facility] Comment:Amphetamine cut-off is 1000 ng/mL.Positive results are unconfirmed and should not be used fornon-medical purposes. Benzodiazepines Screen Urine Not Detected Not Detect [facility] Comment:Benzodiazepine cut-o ff is 200 ng/mL.Positive results are unconfirmed and should not be used fornon-medical purposes. Cocaine Screen Urine Not Detected Not Detect [facility] Comment:Cocaine cut-off is 3 00 ng/mL.Positive results are unconfirmed and should not be used fornon-medical purposes. Cannabinoid Screen Urine POSITIVE(A) Not Detect [facility] Comment:Cannabinoid cut-off is 50 ng/mL.Positive results are unconfirmed and should not be used fornon-medical purposes. Methadone Screen, Urine Not Detected Not Detect ng/mL [facility] Comment:Methadone cut-off is 300 ng/mL.Positive results are unconfirmed and should not be used fornon-medical purposes. FENTANYL URINE Not Detected Not Detect [facility] Comment:Fentanyl cut-off is 1 ng/mL.Positive results are unconfirmed and should not be used fornon-medical purposes. Oxycodone Urine Screen Not Detected Not Detect ng/mL [facility] Comment:Oxycodone cut-off is 100 ng/mL.Positive results are unconfirmed and should not be used fornon-medical purposes. Buprenorphine Screen Not Detected Not Detect ng/mL [facility] Comment:Buprenorphine cut-of f is 5 ng/mL.Positive results are unconfirmed and should not be used fornon-medical purposes. 05/09/2024 3:48 AM EST 05/09/2024 3:53 AM EST Generic External Data Provider LAB URINE ORDERAB LES Final Result Performing Organization Address [facility] de Phone Number [facility] [address] [place] [phone] * (ABNORMAL) Lactic Acid (05/09/2024 2:42 AM EST) Lactic Acid 2.1(HH) 0.5 - 2.0 mmol/L [facility] Comment:Critical value for t est(s): LACTIC ACID Results called toand read back by: SHARIF Person calling:FERMINate:05/09/24 Time:0310 05/09/2024 2:42 AM EST 05/09/2024 2:46 AM EST Generic External Data Provider LAB BLOOD ORDERAB LES Final Result Performing Organization Address [facility] Co de Phone Number [facility] [address] [place] [phone] * Hemoglobin A1c (02/29/2024 10:45 AM EDT) Hemoglobin A1c 5.3 <6.0 % [facility] Comment:Hemoglobin A1C Refer ence Range Adults: 4.8 - 6.0 % Non diabetic: < 6.0 % Goal: < 7.0 %Additional Action Suggested: > 8.0 %Note: Hemoglobin A1c results are invalid for patients with abnormal amounts of HbF. Blood transfusions may impact the HbA1c concentration in the patient sample. Estimated Average Glucose 105 mg/dL [facility] Comment:eAG = Estimated ave rage glucose which is %A1C expressed asaverage glucose, using the formula of the Q3J-UwofrzmWujbfiu Glucose study (ADAG), Diabetes Care, Vol.31,#8,Jan. 2007 Blood Venous blood specimen / Unknown 02/29/2024 10:45 AM EDT 02/29/2024 2:07 PM EDT us Ibeth Lassiter MD LAB BLOOD ORDERABLES Final Re sult [facility] [address] [place] [phone] * (ABNORMAL) Lipid Panel, Standard (02/29/2024 10:45 AM EDT) Triglycerides 94 <150 mg/dL [facility] Comment:Desirable Triglyceri de: less than 150 mg/dLBorderline High Triglyceride 150-199 mg/dLHigh Triglyceride: 200-499 mg/dLVery High Triglyceride: greater than or equal to 5OO mg/dL Cholesterol 112 <200 mg/dL [facility] Comment:Desirable Cholestero l: less than 200 mg/dLBorderline High Cholesterol: 200-239 mg/dLHigh Cholesterol: greater than 239 mg/dL LDL Cholesterol Calculated 54 <100 mg/dL [facility] Comment:Desirable LDL: less than 100 mg/dLNear Optimal/Above Optimal LDL: 110- 129 mg/dLBorderline High LDL: 130-159 mg/dLHigh LDL: 160-189 mg/dLVery High LDL: greater than or equal to 190 mg/dL HDL Cholesterol 40(L) >40 mg/dL [facility] Comment:Desirable HDL: great er than 40 mg/dL Note: This HDL assay may give artificially low results in patients with liver disease. Blood Venous blood specimen / Unknown 02/29/2024 10:45 AM EDT 02/29/2024 2:07 PM EDT us Ibeth Lassiter MD LAB BLOOD ORDERABLES Final Re sult [facility] [address] [place] [phone] * Image-Guided Pap with Age-Based Screening??with CT/NG,??Trichomonas (11/28/2022 1:22 PM EDT) Comment [facility] Comment: This order for age-based cervical cancer and STI screening follows ACOG guidelines(PB 168, 140, OMN411). See individual assays for performing site location. Clinical Information: None given [facility] LMP: NONE GIVEN [email or web address] Prev. PAP: NONE GIVEN [facility] Prev. BX: NONE GIVEN [facility] SOURCE: None given [facility] Statement Of Adequacy: [employer] Comment: Satisfactory for evaluation. Endocervical/transformation zone component present. Interpretation/Re sult: Negative for intraepithelial lesion or malignancy. [facility] COMMENT: This Pap test has been evaluated with computer assisted technology. [employer] Weight Clerk: Harvinder [employer] Comment: SXA, CT(ASCP) CT screening location: [address] ??[address] PATHOLOGIST: [facility] Comment: Brady Ortiz M.D. Direct , Board Certified in Anatomic and Clinical Pathology and Cytopathology (electronic signature) Consulting Pathologist [facility] [address] [place] [phone] (Always Message) Que Dotted Block Comment: EXPLANATORY NOTE: The Pap is a [...] RNA, TMA, Urogenital NOT DETECTED NOT DETECTED [facility] [place] [facility] Neisseria gonorrhoeae RNA, TMA, Urogenital NOT DETECTED NOT DETECTED [facility] [place] [facility] (Always Message) Que [employer] [place] [facility] Comment: The analytical performance characteristics of this assay, when used to test SurePath(TM) specimens have been determined by [facility]. The modifications have not been cleared or approved by the FDA. This assay has been validated pursuant to the CLIA regulations and is used for clinical purposes. For additional information, please refer to https://[employer].com.[employer]/faq/LPF766 (This link is being provided for information/ educational purposes only.) Trichomonas vaginalis, QL, TMA, PAP Vial NOT DETECTED NOT DETECTED [employer] Comment: The analytical performance characteristics of this assay have been determined by [facility]. The modifications have not been cleared or approved by the FDA. This assay has been validated pursuant to the CLIA regulations and is used for clinical purposes. For additional information, please refer to [email or web address].[employer]/ faq/Trichomonastma (This link is being provided for information/ educational purposes only.) Pap Vial 11/28/2022 1:22 PM EDT 11/29/2022 3:01 AM EDT Yuly Lopez [facility] ORDERABLES F inal Result [facility] [address], [place] [phone] [facility] [place] [facility] [address] [place] [phone] * Hepatitis C Antibody with Reflex to HCV, RNA, Quantitative, Real-Time PCR (10/26/2022 9:56 AM EDT) Hepatitis C Antibody NON-REACT CASEY NON-REACT CASEY [facility] [place] [facility] Index 0.11 <1.00 [facility] [place] [facility] Comment: HCV antibody was non-reactive. There is no laboratory evidence of HCV infection. In most cases, no further action is required. However, if recent HCV exposure is suspected, a test for HCV RNA (test code 16334) is suggested. For additional information please refer to http://[employer].com.[employer]/faq/LDM27f7 (This link is being provided for informational/ educational purposes only.) Blood Venous blood specimen / Unknown 10/26/2022 9:56 AM EDT 10/26/2022 9:58 AM EDT Narrative [facility] - 11/02/2022 2:12 PM EDT SPECIALIZED COLLECTION. PATIENT REFERRED TO ALTERNATE SITE. Ibeth Lassiter MD LAB BLOOD ORDERABLES Final Re sult [facility] [address], [place] [address] [facility] [address] [place] [address] * HIV 1/2 ANTIGEN/ANTIBODY,FOURTH GENERATION W/RFL (01/25/2022 12:04 PM EDT) [facility] HIV-1/2 ANTIGEN AND ANTIBODIES, 4TH GENERATION W/ REFLEX NON-REACT CASEY NON-REACT CASEY [facility] Comment: HIV-1 antigen and HIV-1/HIV-2 [...] ? For additional information please refer to http://[employer].com.[employer]/faq/DAZ407 (This link is being provided for informational/ educational purposes only.) ? The performance of this assay has not been clinically validated in patients less than 2 years old. ?? 01/25/2022 12:0 4 PM EDT Ibeth Lassiter MD LAB BLOOD ORDERABLES Final Re sult [facility] [address] from Last 3 Months or Most Recently Relevant to Health Maintenance Insurance Care Teams Interventional Neuroradiologist Relationship Specialty Start Date End Date Ibeth Lassiter MD [address] [place] [phone] PCP - General Family Medicine 12/16/21
--- OUTSIDE RECORDS SUMMARY | 2024-07-31 13:52 | XMS_ITS | Encounter Summary ---
Author Organization [employer] Address [address] [facility] 7[address] [place] [address] Care Team Providers Care Director Of Business Operations Name Role Phone Ibeth Lassiter MD Primary Care Provider [phone] Encounter Details Date Type Department Care Team [...] ([facility] st Contact Info) Description 09/04/2024 2:00 PM EDT Clinical Support [facility] [address] [place] [address] Anastasiia Ocampo RN [address] [place] [address] 09/10/2024 11:30 AM EDT Office Visit [facility] [address] [place] [address] Rosalina Mathews MD [address] [place] [address] documented as of this encounter Procedures Procedure Name Priority Date/Time Associated Diagnosis Comments US ABDOMEN COMPLETE Routine 07/16/2024 3 :02 PM EST CBC WITH AUTO DIFFERENTIAL Routine 07/16/2024 7:07 AM EST LIPASE Routine 07/16/2024 7:07 AM EST COMPREHENSIVE METABOLIC PANEL Routine 07/16/2024 7:07 AM EST documented in this encounter Results * US Abdomen Complete (07/16/2024 3:02 PM EST) Anatomical Region Laterality Modality Abdomen Ultrasound 07/16/2024 3:02 PM EST Narrative 07/16/2024 3:31 PM EST ? [facility] ?[address] ?[place] [address] ? Ultrasound Report ? Signed ? Patient: Aguilar,Deepti ?MR#: [id number] ?? 5 ? : 1995 ?Acct:[id number] ? Age/Sex: 28 / F ?ADM Date: 07/16/24 ? Loc: HO.ED ? Attending Dr: ? Ordering Physician: Dai Torrez ?? Date of Service: 07/16/24 ?? Procedure(s): US abdomen complete ?? Accession Number(s): [id number] ? cc: Dai Torrez; Ibeth Lassiter MD [...] DD/ 1502 ? TD/TT: 07/16/24 1516 ? Hr Payroll Coordinator: ? Procedure Note Edmund, Yumiko - 07/16/[address] [address] Ultrasound Report Signed Patient: Deepti AguilarMR#: [id number] 5 : 1995Acct:[id number] Age/Sex: 28 / FADM Date: 07/16/24 Loc: HO.ED Attending Dr: Ordering Physician: Dai Torrez Date of Service: 07/16/24 Procedure(s): US abdomen complete Accession Number(s): [id number] cc: Dai Torrez; Ibeth Lassiter MD EXAMINATION: [...] by: Ryan Wilkins MD 07/16/2024 03:28 PM EST RP Dictated By: Ryan Savage MD Signed By: <Electronically signed by Ryan Samuels MDin OV> 07/16/24 1528 DD/ 1502 TD/TT: 07/16/24 1516 Hr Payroll Coordinator: [facility] External Provider IMG US PROCEDURES Final Result * (ABNORMAL) Lipase (07/16/2024 7:07 AM EST) Pathologist [facility] Lipase 6(L) 8 - 78 U/L [facility] 07/16/2024 7:07 AM EST 07/16/2024 7:12 AM EST Generic External Data Provider LAB BLOOD ORDERAB LES Final Result [facility] [address] [place] [phone] * (ABNORMAL) Comprehensive Metabolic Panel (07/16/2024 7:07 AM EST) Sodium 140 135 - 145 mmol/L [facility] Potassium 3.8 3.3 - 5.1 mmol/L [facility] Chloride 112(H) 96 - 108 mmol/L [facility] Carbon Dioxide 20(L) 22 - 29 mmol/L [facility] Anion Gap 12 12 - 20 [facility] Urea Nitrogen (BUN) 9 9 - 16 mg/dL [facility] Creatinine, Serum 0.68 0.5 - 1.4 mg/dL [facility] Creatinine Clr Calc Pharmacy 106.3 [facility] Comment:Provided height and weight: 162.56 cm,56.1 kg.eGFR (calculated from the MDRD study equation) and eCrCl(calculated from the Cockcroft-Gault equation) are based ondifferent parameters and may not yield comparable results.If eCrCl result is absurd, please check patient'sheight/weight. Estimated Glomerular Filt Rate >60 [facility] Comment:Chronic Kidney Disea se: Estimated GFR < 60 mL/min/[id number] Kidney Disease: Estimated GFR < 15 mL/min/1.73m2 Glucose 135(H) 60 - 115 mg/dL [facility] Calcium 8.8 8.4 - 10.2 mg/dL [facility] Bilirubin, Total 0.2 0.0 - 1.0 mg/dL [facility] Aspartate Amino Transferase 21 5 - 31 U/L [facility] Alanine Aminotransferase 26 0 - 31 U/L [facility] Total Protein 7.6 6.5 - 8.0 g/dL [facility] Albumin Level 4.4 3.5 - 5.0 g/dL [facility] Alkaline Phosphatase 159(H) 39 - 117 U/L [facility] 07/16/2024 7:07 AM EST 07/16/2024 7:12 AM EST us Generic External Data Provider LAB BLOOD ORDERAB LES Final Result [facility] [address] [place] [phone] * (ABNORMAL) CBC auto differential (07/16/2024 7:07 AM EST) White Blood Count 6.7 4.8 - 10.8 X10*3/uL [facility] Red Blood Count 5.05 4.20 - 5.50 X10*6/uL [facility] Hemoglobin 12.5 12.0 - 16.0 g/dl [facility] Hematocrit 38.9 37.0 - 47.0 % [facility] Mean Corpuscular Volume 77.0(L) 80.0 - 98.0 fL [facility] Mean Corpuscular Hemoglobin 24.8(L) 27.0 - 33.0 pg [facility] Mean Corpuscular HGB Conc 32.1 31.0 - 35.0 g/dl [facility] Red Cell Distribution Width 14.8 11.0 - 16.0 % [facility] Platelet Count 309 160 - 400 X10*3/uL [facility] Mean Platelet Volume 10.2 9.4 - 12.3 fL [facility] Neutrophils Percent Auto 64.9 45 - 73 % [facility] Imm Gran Pct Auto 0.1 0.0 - 0.4 % [facility] Lymphocytes Percent Auto 28.2 20 - 40 % [facility] Monocytes Percent Auto 5.5 2 - 11 % [facility] Eosinophils Percent Auto 0.7 0 - 4 % [facility] Basophils Percent Auto 0.6 0 - 2 % [facility] NRBC Pct Auto 0.0 0.0 - 0.2 /100WBC [facility] Neutrophils Absolute Auto 4.3 2.0 - 8.3 x10*3/uL [facility] Imm Gran Abs Auto 0.01 0.00 - 0.03 X10*3/uL [facility] Lymphocytes Absolute Auto 1.9 1.2 - 4.9 X10*3/uL [facility] Monocytes Absolute Auto 0.4 0.1 - 1.2 X10*3/uL [facility] Eosinophils Absolute Auto 0.1 0.0 - 0.4 X10*3/uL [facility] Basophils Absolute Auto 0.0 0.0 - 0.2 X10*3/uL [facility] NRBC Abs Auto 0.000 0.0 - 0.012 X10*3/uL [facility] 07/16/2024 7:07 AM EST 07/16/2024 7:12 AM EST us Generic External Data Provider LAB BLOOD ORDERAB LES Final Result [facility] [address] [place], [place] [phone] documented in this encounter Visit Diagnoses Not on filedocumented in this encounter Additional Health Concerns Assessment Noted Time PHQ-9 Depression Total Score: 025 10:04 AM EST documented as of this encounter Care Teams Director Of Business Operations Relationship Specialty Start Date End Date Ibeth Lassiter MD [address] [place] [address] PCP - General Family Medicine 12/16/21 documented as of this encounter
--- OUTSIDE RECORDS SUMMARY | 2024-07-31 13:52 | XMS_ITS | Encounter Summary ---
Author Organization [employer] Address [address] [facility] [address] [place] [address] Care Team Providers Care Waiter Waitress Name Role Phone Ibeth Lassiter MD Primary Care Provider [phone] Reason for Visit * Reason Onset Date Comments Medication Question 05/16/2024 Encounter Details Date Type Department Care Team ([facility] st Contact Info) Description 05/16/2024 Telephone [facility] MEDICINE [address] [place] [address] Ibeth Lassiter MD [address] [place] [address] Medication Question Social History Tobacco Use Types [...] AM left message to return call to [facility] * Telephone Encounter - Ibeth Lassiter MD [...] around don't have it. Contact pt at [phone] documented in this encounter Plan of Treatment Upcoming Encounters Date Type Department Care Team ([facility] st Contact Info) Description 09/04/2024 2:00 PM EDT Clinical Support [facility] [address] [place] [address] Anastasiia Ocampo, EL [address] [place] [address] 09/10/2024 11:30 AM EDT Office Visit [facility] [address] [place] [address] Rosalina Mathews MD [address] [place] [address] documented as of this encounter Visit Diagnoses Not on filedocumented in this encounter Additional Health Concerns Assessment Noted Time PHQ-9 Depression Total Score: 24 024 3:55 PM EDT documented as of this encounter Care Teams Waiter Waitress Relationship Specialty Start Date End Date Ibeth Lassiter MD [address] [place] [address] PCP - General Family Medicine 12/16/21 documented as of this encounter
--- OUTSIDE RECORDS SUMMARY | 2024-07-31 13:52 | XMS_ITS | Encounter Summary ---
Author Organization [employer] Address [address] [facility] [address] [place] [address] Care Team Providers Care Music Agent Name Role Phone Ibeth Lassiter MD Primary Care Provider [phone] Reason for Visit * Reason Comments Transition Of Care (Tcm) Encounter Details Date Type Department Care Team ([facility] st Contact Info) Description 07/14/2024 Patient Outreach [facility] MED & PEDS [address] [place] [address] Ibeth Lassiter MD [address] [place] [address] Transition Of Care (Tcm) Social History Tobacco [...] of care. Hospital Discharges and Admission for [facility] Type of Visit: Emergency Department Date of Admission/Visit: 07/12/24 Date of Discharge: 07/13/24 Facility: [facility] Diagnosis: Unspecified abdominal pain (R10.9) - [...] Dept 07/11/24 Office Visit Rosalina Mathews MD [facility] Med & Peds 06/19/24 Office Visit Solis Lennon MD [facility] Med [facility] Peds 06/02/24 Office Visit Ibeth Lassiter MD [facility] P[facility] 02/29/24 Office Visit Ibeth Lassiter MD [facility] Med & Peds 02/14/24 Office Visit Ibeth Lassiter MD [facility] P[facility] 11/08/23 Office Visit Ibeth Lassiter MD [facility] Med & Peds 10/25/23 Office Visit Ibeth Lassiter MD [facility] & Peds 09/24/23 Office Visit Ibeth Lassiter MD [facility] Med & Peds 09/18/23 Office Visit Zara Ng MD [facility] Med & Peds 03/30/23 Office Visit Ibeth Lassiter MD [facility] Med & Peds Showing recent visits within [...] [facility] MED & PEDS [address] [place] [address] Anastasiia Ocampo, EL [address] [place] [address] 09/10/2024 11:30 AM EDT Office Visit [facility] [address] [place] [address] Rosalina Mathews MD [address] [place] [address] documented as of this encounter Visit Diagnoses Not on filedocumented in this encounter Additional Health Concerns Assessment Noted Time PHQ-9 Depression Total Score: 22 025 10:04 AM EST documented as of this encounter Care Teams Music Agent Relationship Specialty Start Date End Date Ibeth Lassiter MD [address] [place] [address] PCP - General Family Medicine 12/16/21 documented as of this encounter
--- OUTSIDE RECORDS SUMMARY | 2024-07-31 13:52 | XMS_ITS | Encounter Summary ---
Author Organization [employer] Address [address] [facility] 7 [place] [address] Care Team Providers Care Long Winder Tender Name Role Phone Ibeth Lassiter MD Primary Care Provider [phone] Reason for Visit * Reason Onset Date Comments Med Refill 10/22/2023 Encounter Details Date Type Department Care Team (Late st Contact Info) Description 10/22/2023 Refill [facility]EDS [address] [place] [address] Solis Taylor MD [address] [place] [address] Acute necrotizing pancreatitis Social History Tobacco Use [...] with others, in a hotel, in a retirement, living outside on the street, on a [...] Description 09/04/2024 2:00 PM EDT Clinical Support [facility] MED & PEDS [address] [place] [address] Anastasiia Ocampo RN [address] [place] [address] 09/10/2024 11:30 AM EDT Office Visit [facility] MED [facility] PEDS [address] [place] [address] Rosalina Mathews MD [address] [place] [address] documented as of this encounter Visit Diagnoses Diagnosis Acute necrotizing pancreatitis Acute pancreatitis documented in this encounter Additional Health Concerns Assessment Noted Time PHQ-9 Depression Total Score: 14 023 10:26 AM EDT documented as of this encounter Care Teams Long Winder Tender Relationship Specialty Start Date End Date Ibeth Lassiter MD [address] [place] [address] PCP - General Family Medicine 12/16/21 documented as of this encounter
--- OUTSIDE RECORDS SUMMARY | 2024-07-31 13:53 | XMS_ITS | Encounter Summary ---
Author Organization [employer] Address [address] [facility] [address]t [place] [address] Care Team Providers Care Credit Operations Specialist Name Role Phone Ibeth Lassiter MD Primary Care Provider Reason for Visit * Reason Onset Date Comments Med Refill 12/14/2023 Encounter Details Date Type Department Care Team (Late st Contact Info) Description 12/14/2023 Refill [facility] MED & PEDS [address] [place] [address] Ibeth Lassiter MD [address] [place] [address] Acute necrotizing pancreatitis Social History Tobacco Use [...] 09/04/2024 2:00 PM EDT Clinical Support [facility] MED [facility] PEDS [address] [place] [address] Anastasiia Ocampo, EL [address] [place] [address] 09/10/2024 11:30 AM EDT Office Visit [facility]ED[facility] [address] [place] [address] Rosalina Mathews MD [address] [place] [address] documented as of this encounter Visit Diagnoses Diagnosis Acute necrotizing pancreatitis Acute pancreatitis documented in this encounter Additional Health Concerns Assessment Noted Time PHQ-9 Depression Total Score: 24 024 3:55 PM EDT documented as of this encounter Care Teams Credit Operations Specialist Relationship Specialty Start Date End Date Ibeth Lassiter MD [address] [place] [address] PCP - General Family Medicine 12/16/21 documented as of this encounter
--- OUTSIDE RECORDS SUMMARY | 2024-07-31 13:53 | XMS_ITS | Encounter Summary ---
Author Organization [employer] Address [address] [facility] 7t [place] [address] Care Team Providers Care Marble Cutter Name Role Phone Ibeth aLssiter MD Primary Care Provider [phone] Reason for Visit * Reason Onset Date Comments Med Refill 01/01/2024 Encounter Details Date Type Department Care Team ([facility] st Contact Info) Description 01/01/2024 Telephone [facility] MEDICINE [address] [place] [address] Ibeth Lassiter MD [address] [place] [address] Med Refill Social History Tobacco Use Types [...] information. Pt is advised to come to [facility] in [facility] today or tomorrow if needed. Hours open [...] Deepti Sent: 01/12/2024 9:34 PM EDT To: [facility] Front Office Subject: Appointment Request Appointment Request From: Deepti Aguilar With Provider: Ibeth Lassiter MD [[facility] MED [facility]] Preferred Date Range: 01/13/2024 [...] 30 MG tablet To be sent to: [facility] [address] [place] [address] documented in this encounter Plan of Treatment Upcoming Encounters Date Type Department Care Team (Late st Contact Info) Description 09/04/2024 2:00 PM EDT Clinical Support [facility] [address] [place] [address] Anastasiai Ocampo, EL [address] [place] [address] 09/10/2024 11:30 AM EDT Office Visit [facility] [address] [place] [address] Rosalina Mathews MD [address] [place] [address] documented as of this encounter Visit Diagnoses Not on filedocumented in this encounter Additional Health Concerns Assessment Noted Time PHQ-9 Depression Total Score: 24 024 3:55 PM EDT documented as of this encounter Care Teams Marble Cutter Relationship Specialty Start Date End Date Ibeth Lassiter MD [address] [place] [address] PCP - General Family Medicine 12/16/21 documented as of this encounter
--- OUTSIDE RECORDS SUMMARY | 2024-07-31 13:53 | XMS_ITS | Continuity of Care Document ---
Author Organization [facility] Address [address] [place] [address]- Support Name Relationship Address Phone PETE ACOSTA domestic partner Unknown Unavaila OC Camacho Other Unknown Unavailable Encounter [facility] Date(s): 07/16/24 - 07/16/[address] [address]- Discharge Disposition: A-D/C Walkout Attending Physician: Not on Staff, Attending MD Admitting Physician: Not on Staff, Admitting MD Referring Physician: Not on Staff, Referring MD Encounter Type: Disch ES Allergies, Adverse Reactions, Alerts No Known Allergies Medications bismuth subsalicylate 262 mg oral tablet 2 tablet = 524 mg, Chew, 4 times a day, for 14 days, # 112 tablet, 0 Refills, Acute 07/29/24 1:16:00PM EST, 07/15/24 1:16:00 PM EST, Tablet, [id number], Partial fill upon patient request if the prescription is for a schedule II opioid drug., 163, cm, 07/13/24 10:36:00 EST, Height, 52.5, kg, 07/12/24 15:49:00 EST, Dry Weight Start Date: 07/15/24 Stop Date: 07/29/24 Status: Ordered Quantity: 112.0 Unit: tablet Repeat number: 1 bismuth subsalicylate 262 mg oral tablet, chewable [...] 1 tablet = 500 mg, By Mouth, 3 times a day, for 14 days, # 42 tablet, 0 Refills, Acute 07/29/24 1:16:00 PM EST, 07/15/24 1:16:00 PM EST, Tablet, [facility] #[id number], Partial fill upon patient request if the prescription is for a schedule II opioid drug., 163, cm, 07/13/24 10:36:00 EST, Height, 52.5, kg, 07/12/24 15:49:00 EST, Dry Weight Start Date: 07/15/24 Stop Date: 07/29/24 Status: Ordered Quantity: 42.0 Unit: tablet Repeat number: 1 mirtazapine 15 mg oral [...] Quantity: 30.0 Unit: tablet Repeat number: 1 pantoprazole 40 mg oral delayed release tablet 1 tablet = 40 mg, By Mouth, 2 times a day, # 28 tablet, 0 Refills, Maintenance, 07/15/24 1:16:00 PM EST, EC Tablet, 163, cm, 07/13/24 10:36:00 EST, Height, 52.5, kg, 07/12/24 15:49:00 EST, Dry Weight Start Date: 07/15/24 Stop Date: 07/29/24 Status: Ordered Quantity: 28.0 Unit: tablet Repeat number: 1 polyethylene glycol [...] 1 capsule = 500 mg, By Mouth, 4 times a day, for 14 days, # 56 capsule, 0 Refills, Acute 07/29/24 1:16:00 PM EST, 07/15/24 1:16:00 PM EST, Capsule, [facility] #[id number], Partial fill upon patient request if the prescription is for a schedule II opioid drug., 163, cm, 07/13/24 10:36:00 EST, Height, 52.5, kg, 07/12/24 15:49:00 EST, Dry Weight Start Date: 07/15/24 Stop Date: 07/29/24 Status: Ordered Quantity: 56.0 Unit: capsule Repeat number: 1 Problem List Condition Confirmation Course Effective Dates Status Health St atus Informant Abdominal pain Confirmed Active Hematemesis Confirmed Active Hypokalemia Confirmed Active Vital Signs Most recent to oldest [Reference Range]: 1 Height 163 cm (07/16/24 12:37 AM) Weight 59.5 kg (07/16/24 12:37 AM) Oxygen Saturation [94-100 %] 100 % (07/16/24 12:37 AM) Pulse Rate [55-90 bpm] 102 bpm *H* (07/16/24 12:37 AM) Body Mass Index [18.5-24.99 kg/m2] 22.39 kg/m2 (07/16/24 12:37 AM) Blood Pressure [90-138/55-84 mm Hg] 101/ 56mm Hg (07/16/24 12:37 AM) Respiratory Rate [16-30 br/min] 17 br/mi n (07/16/24 12:37 AM) Temperature [96.8-100.4 DegF] 97.9 DegF (07/16/24 12:37 AM) Mode of Delivery (Oxygen) Room air (07/16/24 12:37 AM) Blood pressure sites Arm, left (07/16/24 12:37 AM) Temperature Route Oral (07/16/24 12:37 AM) Dry Weight 59.5 kg (07/16/24 12:37 AM) Weight Obtained Via Standing scale (07/16/24 12:37 AM) Dry Weight Obtained Via Standing scale (07/16/24 12:37 AM) Social History Social History Type Response Smoking Status Never (less than 100 in lifetime) entered on: 09/25/23 Sex Sex Representation Female (finding) Patient Care team information Care Team Personnel Name: Charmaine Miguel RN Position: [facility] RN Member Role: Primary Care Nurse Name: Briseyda Ramsey RN Position: [facility] RN Member Role: Primary Care Nurse Name: Fifi Dickson Position: [facility] RN Member Role: Primary Care Nurse Name: Briseyda Melton RN Position: [facility] RN Member Role: Primary Care Nurse Name: Iam Noble RN Position: [facility] RN Member Role: Primary Care Nurse Name: Ena Obrien RN Position: [facility] ED RN W/OE and Tasks Member Role: Primary Care Nurse Name: Tammie Zamudio RN Position: [facility] RN Member Role: Primary Care Nurse Name: Dai Pham RN Position: [facility] RN Member Role: Primary Care Nurse Name: Yumiko Ontiveros RN Position: [facility] RN Member Role: Primary Care Nurse Name: Alyssa Abdi RN Position: [facility] RN Member Role: Primary Care Nurse Name: Vinicio Carr RN Position: [facility] RN Member Role: Primary Care Nurse Name: Earle Coyne RN Position: [facility] RN Member Role: Primary Care Nurse Name: Saritha Prado RN Position: [facility] RN Member Role: Primary Care Nurse Name: Micaela Abad RN Position: [facility] RN Member Role: Primary Care Nurse Name: Sofia LOPEZ, Sudha Position: [facility] RN Member Role: Primary Care Nurse Name: Mary Fernandes RN Position: [facility] RN Member Role: Primary Care Nurse Name: Marlon Michelle RN Position: [facility] RN Member Role: Primary Care Nurse Name: Noelle Gill RN Position: [facility] RN Member Role: Primary Care Nurse Name: Tiana Galicia RN Position: [facility] RN Member Role: Primary Care Nurse Name: Divya Aguilar RN Position: [facility] RN Member Role: Primary Care Nurse Name: Doreen Doe LPN Position: [facility] RN Member Role: Primary Care Nurse Name: Rosa Rahman RN Position: [facility] RN Member Role: Primary Care Nurse Name: Nelda Maritn LPN Position: [facility] RN Member Role: Primary Care Nurse Name: Cory Parker RN Position: [facility] RN Member Role: Primary Care Nurse Care Team Related Persons Name: DANIELZAKIA Name: PETE ACOSTA Insurance Providers Guarantor name: [facility] Information #: 1 [facility] Member Number: [id number] Policy Number: JESUS Group Number: [employer] Plan Information #: 2 Payer: [employer] Member Number: [id number] Policy Number: JESUS Group Number: [id number]
--- OUTSIDE RECORDS SUMMARY | 2024-07-31 13:53 | XMS_ITS | Encounter Summary ---
Author Organization [employer] Address [address] [facility] [address] [place] [address] Care Team Providers Care Control Panel Assembler Name Role Phone Ibeth Lassiter MD Primary Care Provider [phone] Encounter Details Date Type Department Care Team (Late st Contact Info) Description 07/30/2024 Orders Only GENERIC EXTERNAL DATA [...] Upcoming Encounters Date Type Department Care Team ([facility] st Contact Info) Description 09/04/2024 2:00 PM EDT Clinical Support [facility] [address] [place] [address] Anastasiia Ocampo RN [address] [place] [address] 09/10/2024 11:30 AM EDT Office Visit [facility] [address] [place] [address] Rosalina Mathews MD [address] [place] [address] documented as of this encounter Procedures Procedure Name Priority Date/Time Associated Diagnosis Comments CT ABDOMEN PELVIS W CONTRAST Routine 2024 1:34 AM EST ETHANOL Routine 07/30/2024 8:54 PM EST URINALYSIS, COMPLETE, WITH REFLEX TO CULTURE Routine 07/30/2024 8:54 PM EST CBC WITH AUTO DIFFERENTIAL Routine 07/30/2024 8:54 PM EST HCG, TOTAL, QN Routine 07/30/2024 8:54 PM EST LIPASE Routine 07/30/2024 8:54 PM EST COMPREHENSIVE METABOLIC PANEL Routine 07/30/2024 8:54 PM EST documented in this encounter Results * CT Abdomen Pelvis w/ Contrast (2024 1:34 AM EST) Anatomical Region Laterality Modality Body, Pelvis, Abdomen Computed T omography 2024 1:34 AM EST Narrative 2024 1:36 AM EST ? [facility] ?[address] ?[place] [address] ? CT Scan Report ? Signed ? Patient: Aguilar,Deepti ?MR#: [id number] ?? 5 ? : 1995 ?Acct:[id number] ? Age/Sex: 29 / F ?ADM Date: 07/30/24 ? Loc: HO.ED ? Attending Dr: ? Ordering Physician: Katarzyna Hui ?? Date of Service: 07/31/24 ?? Procedure(s): CT abdomen pelvis w IV con ?? Accession Number(s): [id number] ? cc: Katarzyna Hui; Ibeth Lassiter MD ? Report Number: ?? [id number]: Total DLP = ??431.00 mGy-cm ? CLINICAL [...] by Jessee Eng MD in OV> ? 07/31/24 0135 ? DD/ 0134 ? TD/TT: 07/31/24 0134 ? Assistant Boys Track Coach: ? Procedure Note Donotuseinterpreter, Image - [address] [address] [address] Scan Report Signed Patient: Tori Aguilar#: [id number] 5 : 1995Acct:[id number] Age/Sex: 29 / FADM Date: 07/30/24 Loc: HO.ED Attending Dr: Ordering Physician: Ktaarzyna Hui Date of Service: 07/31/24 Procedure(s): CT abdomen pelvis w IV con Accession Number(s): [id number] cc: Katarzyna Hui; Ibeth Lassiter MD Report Number: [id number]: Total DLP = 431.00 mGy-cm CLINICAL HISTORY: [...] in OV> 07/31/24134 DD/ 3 TD/TT: 07/31/24133 Assistant Boys Track Coach: us [facility] External Provider IMG CT PROCEDURES Edited Result - Final * Urinalysis, Complete, with Reflex to Culture (07/30/2024 8:54 PM EST) Color Urine Yellow [facility] Appearance Urine Clear [facility] PH 6.0 5.0 - 9.0 [facility] Glucose Urine UA Negative Negative mg/dL [facility] Urine Blood Negative Negative [facility] Specific [place] - Urine 1.025 1.005 - 1.025 [facility] Urine Protein Trace Neg-Trace mg/dL [facility] Urine Ketones Trace Negative mg/dL [facility] Nitrite Urine Negative Negative [facility] Leukocyte Esterase Urine Negative Negative [facility] RBC Urine 0-2 0 - 2 /HPF [facility] Urine WBC 0-5 0 - 5 /HPF [facility] Urine Squamous Epithelial Cell 6-10 0 - 2 /HPF [facility] Urine Bacteria None Seen None Seen [facility] Hyaline Casts, Urine 0-2 0 - 2 /LPF [facility] 07/30/2024 8:54 PM EST 07/30/2024 8:57 PM EST Narrative [facility] - 07/30/2024 9:31 PM EST [id number], Clean Catch Generic External Data Provider LAB URINE ORDERAB LES Final Result Performing Organization Address City/[facility]/ZIP Co de Phone Number [facility] [address] [place] [phone] * Ethanol (07/30/2024 8:54 PM EST) ETHANOL (MG/DL) IN SER/PLAS <10 mg/dL [facility] Comment:Serum/plasma ethanol results are to be used formedical/treatment purposes only. 07/30/2024 8:54 PM EST 07/30/2024 8:57 PM EST us Generic External Data Provider LAB BLOOD ORDERAB LES Final Result Performing Organization Address [facility] Co de Phone Number [facility] [address] [place] [phone] * hCG, Total, Quantitative (07/30/2024 8:54 PM EST) HCG Quantitative <2 mIU/mL [facility] Comment:Weeks post LMP Appro ximate hCG(Last Menstrual Period) Range (mIU/ml)3 - 4 weeks 9 - 1304 - 5 weeks 75 - 2,6005 - 6 weeks 850 - 20,8006 - 7 weeks 4000 - 100,2007 - 12 weeks 11,500 - 289,02116 - 16 weeks 18,300 - 137,43690 - 29 weeks (2nd trimester) 1,400 - 53,68299 - 41 weeks (3rd trimester) 940 - [...] ORDERAB LES Final Result Performing Organization Address [facility] Co de Phone Number [facility] [address] [place] [phone] * (ABNORMAL) Lipase (07/30/2024 8:54 PM EST) Pathologist [facility] Lipase <4(L) 8 - 78 U/L [facility] 07/30/2024 8:54 PM EST 07/30/2024 8:57 PM EST Generic External Data Provider LAB BLOOD ORDERAB LES Final Result Performing Organization Address [facility] de Phone Number [facility] [address] [place] [phone] * (ABNORMAL) Comprehensive Metabolic Panel (07/30/2024 8:54 PM EST) Pathologist [facility] Sodium 138 135 - 145 mmol/L [facility] Potassium 3.6 3.3 - 5.1 mmol/L [facility] Chloride 111(H) 96 - 108 mmol/L [facility] Carbon Dioxide 19(L) 22 - 29 mmol/L [facility] Anion Gap 12 12 - 20 [facility] Urea Nitrogen (BUN) 5(L) 9 - 16 mg/dL [facility] Creatinine, Serum 0.64 0.5 - 1.4 mg/dL [facility] Creatinine Clr Calc Pharmacy 113.0 [facility] Comment:Provided height and weight: 162.56 cm,58.9 kg.eGFR (calculated from the MDRD study equation) and eCrCl(calculated from the Cockcroft-Gault equation) are based ondifferent parameters and may not yield comparable results.If eCrCl result is absurd, please check patient'sheight/weight. Estimated Glomerular Filt Rate >60 [facility] Comment:Chronic Kidney Disea se: Estimated GFR < 60 mL/min/1.55i2Bjqvtd Kidney Disease: Estimated GFR < 15 mL/min/1.73m2 Glucose 92 60 - 115 mg/dL [facility] Calcium 8.9 8.4 - 10.2 mg/dL [facility] Bilirubin, Total 0.3 0.0 - 1.0 mg/dL [facility] Aspartate Amino Transferase 80(H) 5 - 31 U/L [facility] Alanine Aminotransferase 169(H) 0 - 31 U/L [facility] Total Protein 7.2 6.5 - 8.0 g/dL [facility] Albumin Level 4.2 3.5 - 5.0 g/dL [facility] Alkaline Phosphatase 219(H) 39 - 117 U/L [facility] 07/30/2024 8:54 PM EST 07/30/2024 8:57 PM EST us Generic External Data Provider LAB BLOOD ORDERAB LES Final Result [facility] [address] [place] [phone] * (ABNORMAL) CBC auto differential (07/30/2024 8:54 PM EST) White Blood Count 6.5 4.8 - 10.8 X10*3/uL [facility] Red Blood Count 4.76 4.20 - 5.50 X10*6/uL [facility] Hemoglobin 11.8(L) 12.0 - 16.0 g/dl [facility] Hematocrit 36.5(L) 37.0 - 47.0 % [facility] Mean Corpuscular Volume 76.7(L) 80.0 - 98.0 fL [facility] Mean Corpuscular Hemoglobin 24.8(L) 27.0 - 33.0 pg [facility] Mean Corpuscular HGB Conc 32.3 31.0 - 35.0 g/dl [facility] Red Cell Distribution Width 15.3 11.0 - 16.0 % [facility] Platelet Count 274 160 - 400 X10*3/uL [facility] Mean Platelet Volume 10.6 9.4 - 12.3 fL [facility] Neutrophils Percent Auto 47.4 45 - 73 % [facility] Imm Gran Pct Auto 0.2 0.0 - 0.4 % [facility] Lymphocytes Percent Auto 41.7(H) 20 - 40 % [facility] Monocytes Percent Auto 7.4 2 - 11 % [facility] Eosinophils Percent Auto 2.5 0 - 4 % [facility] Basophils Percent Auto 0.8 0 - 2 % [facility] NRBC Pct Auto 0.0 0.0 - 0.2 /100WBC [facility] Neutrophils Absolute Auto 3.1 2.0 - 8.3 x10*3/uL [facility] Imm Gran Abs Auto 0.01 0.00 - 0.03 X10*3/uL [facility] Lymphocytes Absolute Auto 2.7 1.2 - 4.9 X10*3/uL [facility] Monocytes Absolute Auto 0.5 0.1 - 1.2 X10*3/uL [facility] Eosinophils Absolute Auto 0.2 0.0 - 0.4 X10*3/uL [facility] Basophils Absolute Auto 0.1 0.0 - 0.2 X10*3/uL [facility] NRBC Abs Auto 0.000 0.0 - 0.012 X10*3/uL [facility] 07/30/2024 8:54 PM EST 07/30/2024 8:57 PM EST us Generic External Data Provider LAB BLOOD ORDERAB LES Final Result [facility] [address] [place] [phone] [phone] documented in this encounter Visit Diagnoses Not on filedocumented in this encounter Additional Health Concerns Assessment Noted Time PHQ-9 Depression Total Score: 22 025 10:04 AM EST documented as of this encounter Care Teams Control Panel Assembler Relationship Specialty Start Date End Date Ibeth Lassiter MD [address] [place] [address] PCP - General Family Medicine 12/16/21 documented as of this encounter
--- OUTSIDE RECORDS SUMMARY | 2024-07-31 13:53 | XMS_ITS | Data Portability ---
Author Organization [facility] Address [address] [place] [address] Care Team Providers Care Safe And Vault Installer Name Role Phone RHONDA GASTON Primary Care Provider [phone] Assessment No assessment recorded. Plan of Treatment Reminders Order Date Submit Date Provider Last Modified By Organization Details Last Modified Time Details Appointments None recorded. Lab None recorded. Referral None recorded. Procedures None recorded. Surgeries None recorded. Imaging None recorded. Medication Orders valacyclov ir 1 gram tablet 2018 019 INTERFACE [id number], [address] [place], [address], 9 16:29:52 ranitidine 150 mg tablet 2018 019 INTERFACE [id number], [address] [place], [address], 9 16:29:52 Patient TargetsNo targets recorded. Patient InstructionsNo instructions recorded. Reason for Referral None Reported. Results Created Date Observation Date Name Description Value Unit Range Abnormal Flag Note LastModifiedBy Organization Detail LastModifiedTime 11/06/1911/05/2018 drug scree n, urine ds amphetamines NEGATI VE normal Not Available [facility] [address] [place], [address], 11/05/2018 14:54:55 11/06/19 19 11/05/2018 drug scree n, urine ds barbituates NEGATI VE normal Not Available [facility] [address] [place], [address], 11/05/2018 14:54:55 11/06/1911/05/2018 drug scree n, urine ds benzodiazepi NEGATI VE normal Not Available [facility] [address] [place], [address], 11/05/2018 14:54:55 11/06/1911/05/2018 drug scree n, urine ds cannabinoid NEGATI VE normal Not Available [facility] [address] [place] [address], [address], 11/05/2018 14:54:55 11/06/1911/05/2018 drug scree n, urine ds cocaine NEGATI VE normal Not Available [facility] [address] [place] [address], [address], 11/05/2018 14:54:55 11/06/1911/05/2018 drug scree n, urine ds methadone NEGATI VE normal Not Available [facility] [address] [place] [address], [address], 11/05/2018 14:54:55 11/06/1911/05/2018 drug scree n, urine ds opiates NEGATI VE normal Not Available [facility] [address] [place], [address], 11/05/2018 14:54:55 11/06/1911/05/2018 drug scree n, urine ds oxycodone NEGATI VE normal Not Available [facility] [address] [place] [address], [address], 11/05/2018 14:54:55 11/06/1911/05/2018 drug scree n, urine ds phencyclidin NEGATI VE normal Not Available [facility] [address] [place], [address], 11/05/2018 14:54:55 11/06/1911/05/2018 drug scree n, urine ds propoxphene NEGATI VE normal Not Available [facility] [address] [place] [address], [address], 11/05/2018 14:54:55 11/10/1911/09/2018 urina lysis , dipst ick color YELLOW yellow normal Not Available [facility] [address] [place], [place] [address] [place], [address], 11/09/2018 01:50:05 11/10/1911/09/2018 urina lysis , dipst ick appearance CLEAR clear normal Not Available [facility] [address] [place] [address], [address], 11/09/2018 01:50:05 11/10/1911/09/2018 urina lysis , dipst ick specific gravit 1.020 1.001- 1.035 normal Not Available [facility] [address] [place], [place] [address], [address], 11/09/2018 01:50:05 11/10/1911/09/2018 urina lysis , dipst ick urine glucose TRACE neg high Not Available [facility] [address] [place] [address], [address], 11/09/2018 01:50:05 11/10/1911/09/2018 urina lysis , dipst ick urine bilirubin NEGATI VE neg normal Not Available [facility] [address] [place], [place] [address], [address], 11/09/2018 01:50:05 11/10/1911/09/2018 urina lysis , dipst ick urine ketone NEGATI VE neg normal Not Available [facility] [address] [place] [address], [address], 11/09/2018 01:50:05 11/10/1911/09/2018 urina lysis , dipst ick urine HGB 2+ neg high Not Available [facility] [address] [place], [place] [address], [address], 11/09/2018 01:50:05 11/10/1911/09/2018 urina lysis , dipst ick urine pH 7.0 5.0-8. 0 normal Not Available [facility] [address] [place], [place] [address], [address], 11/09/2018 01:50:05 11/10/1911/09/2018 urina lysis , dipst ick urine protein TRACE( LOW) mg/dL neg normal Not Available [facility] [address] [place], [address], 11/09/2018 01:50:05 11/10/1911/09/2018 urina lysis , dipst ick urobilinogen 1.0 erlic h 0.2-1. 0 normal Not Available [facility] [address] [place], [address], 11/09/2018 01:50:05 11/10/1911/09/2018 urina lysis , dipst ick nitrite NEGATI VE neg normal Not Available [facility] [address] [place] [address], [address], 11/09/2018 01:50:05 11/10/1911/09/2018 urina lysis , dipst ick leukocyte beny NEGATI VE neg normal Not Available [facility] [address] [place] [address], [address], 11/09/2018 01:50:05 11/10/1911/09/2018 urina lysis , compl ete micro exam high 2+ MUCOU S 1+ BACTE DK FEW SQUAM OUS EPITH EL 0-4 WBC 15-25 RBC Not Available [facility] [address] [place] [address], [address], 11/09/2018 01:50:16 11/10/1911/09/2018 drug scree n, urine ds amphetamines POSITI VE normal THIS IS A SCREE ESME METHO D ONLY. THIS SPECI MEN WILL NOT BE [facility] SENT TO A REFER ENCE LABOR ATORY FOR CONFI RMATI ON TESTI NG. IF THE PROVI ZINA NEEDS CONFI RMATI ON TESTI NG PLEAS E CALL THE LABOR ATORY WITHI N [address] [facility] TESTI NG. Not Available [facility] [address] [place] [address], [address], 11/09/2018 01:52:53 11/10/1911/09/2018 drug scree n, urine ds barbituates NEGATI VE normal Not Available [facility] [address] [place] [address], [address], 11/09/2018 01:52:53 11/10/1911/09/2018 drug scree n, urine ds benzodiazepi NEGATI VE normal Not Available [facility] [address] [place] [address], [address], 11/09/2018 01:52:53 11/10/1911/09/2018 drug scree n, urine ds cannabinoid NEGATI VE normal Not Available [facility] [address] [place] [address], [address], 11/09/2018 01:52:53 11/10/1911/09/2018 drug scree n, urine ds cocaine NEGATI VE normal Not Available [facility] [address] [place] [address], [address], 11/09/2018 01:52:53 11/10/1911/09/2018 drug scree n, urine ds methadone NEGATI VE normal Not Available [facility] [address] [place] [address], [address], 11/09/2018 01:52:53 11/10/1911/09/2018 drug scree n, urine ds opiates NEGATI VE normal Not Available [facility] [address] [place] [address], [address], 11/09/2018 01:52:53 11/10/1911/09/2018 drug scree n, urine ds oxycodone NEGATI VE normal Not Available [facility] [address] [place] [address], [address], 11/09/2018 01:52:53 11/10/1911/09/2018 drug scree n, urine ds phencyclidin NEGATI VE normal Not Available [facility] [address] [place] [address], [address], 11/09/2018 01:52:53 11/10/1911/09/2018 drug scree n, urine ds propoxphene NEGATI VE normal Not Available [facility] [address] [place] [address], [address], 11/09/2018 01:52:53 01/10/2001/09/2019 drug scree n, urine ds amphetamines POSITI VE normal THIS IS A SCREE ESME METHO D ONLY. THIS SPECI MEN WILL NOT BE [facility] L[facility] SENT TO A REFER ENCE LABOR ATORY FOR CONFI RMATI ON TESTI NG. IF THE PROVI ZINA NEEDS CONFI RMATI ON TESTI NG PLEAS E CALL THE LABOR ATORY WITHI N 24 HOURS TO REQUE [facility] TESTI NG. Not Available [facility] [address] [place] [address], [address], 01/09/2019 09:13:52 01/10/2001/09/2019 drug scree n, urine ds barbituates NEGATI VE normal Not Available [facility] [address] [place], [address], 01/09/2019 09:13:52 01/10/2001/09/2019 drug scree n, urine ds benzodiazepi NEGATI VE normal Not Available [facility] [address] [place] [address], [address], 01/09/2019 09:13:52 01/10/2001/09/2019 drug scree n, urine ds cannabinoid NEGATI VE normal Not Available [facility] [address] [place], [address], 01/09/2019 09:13:52 01/10/2001/09/2019 drug scree n, urine ds cocaine NEGATI VE normal Not Available [facility] [address] [place], [address], 01/09/2019 09:13:52 01/10/2001/09/2019 drug scree n, urine ds methadone NEGATI VE normal Not Available [facility] [address] [place], [address], 01/09/2019 09:13:52 01/10/2001/09/2019 drug scree n, urine ds opiates NEGATI VE normal Not Available [facility] [address] [place] [address], 01/09/2019 09:13:52 01/10/2001/09/2019 drug scree n, urine ds oxycodone NEGATI VE normal Not Available [facility] [address] [facility] [place], [address], 01/09/2019 09:13:52 01/10/2001/09/2019 drug scree n, urine ds phencyclidin NEGATI VE normal Not Available [facility] [address] [place], [address], 01/09/2019 09:13:52 01/10/2001/09/2019 drug scree n, urine ds propoxphene NEGATI VE normal Not Available [facility] [address] [place], [address], 01/09/2019 09:13:52 01/10/2001/09/2019 CBC w/ auto diff WBC 9.0 10*3/ uL 3.5-11 .0 normal Not Available [facility] [address] [place], [address], 01/09/2019 09:50:14 01/10/2001/09/2019 CBC w/ auto diff RBC 3.78 10*6/ uL 3.60-4 .80 normal Not Available [facility] [address] [place], [address], 01/09/2019 09:50:14 01/10/2001/09/2019 CBC w/ auto diff HGB 7.7 g/dL 12.0-1 6.0 low Not Available [facility] [address] [place], [address], 01/09/2019 09:50:14 01/10/2001/09/2019 CBC w/ auto diff HCT 26.3 % 36-48 low Not Available [facility] [address] [place] [address], [address], 01/09/2019 09:50:14 01/10/2001/09/2019 CBC w/ auto diff MCV 69.6 fL 79-98 low Not Available [facility] [address] [place] [address], [address], 01/09/2019 09:50:14 01/10/2001/09/2019 CBC w/ auto diff MCH 20.4 pg 25.4-3 4.6 low Not Available [facility] [address] [place] [address], [address], 01/09/2019 09:50:14 01/10/2001/09/2019 CBC w/ auto diff MCHC 29.3 g/dL 30-36 low Not Available [facility] [address] [place] [address], [address], 01/09/2019 09:50:14 01/10/20 19 01/09/2019 CBC w/ auto diff RDW 19.2 % 11.5-1 4.5 high Not Available [facility] [address] [place] [address], [address], 01/09/2019 09:50:14 01/10/2001/09/2019 CBC w/ auto diff plt 283 10*3/ uL 150-40 0 normal Not Available [facility] [address] [place] [address], [address], 01/09/2019 09:50:14 01/10/2001/09/2019 CBC w/ auto diff abs neut count 5.9 10*3/ uL 1.5-7. 5 normal Cauti on: Inter preta tion of ANC resul ts witho ut inclu clark of the WBC diffe renti al resul ts may lead to cresencio eous diagn osis; for examp le [facility] ng myelo proli ferat casey, OR lymph oprol ifera tive disor ders Not Available [facility] [address] [place] [address], [place], [address], 01/09/2019 09:50:14 01/10/2001/09/2019 CBC w/ auto diff abs lymph count 2.5 10*3/ uL 0.8-4. 8 normal Not Available [facility] [address] [place], [address], 01/09/2019 09:50:14 01/10/2001/09/2019 CBC w/ auto diff abs mono count 0.5 10*3/ uL 0.4-1. 3 normal Not Available [facility] [address] [place], [address], 01/09/2019 09:50:14 01/10/2001/09/2019 CBC w/ auto diff abs eo count 0.1 10*3/ uL 0.0-0. 8 normal Not Available [facility] [address] [place] [address] [place], [address], 01/09/2019 09:50:14 01/10/2001/09/2019 CBC w/ auto diff abs baso count 0.0 10*3/ uL 0.0-0. 6 normal Not Available [facility] [address] [place] [address] [place], [address], 01/09/2019 09:50:14 01/10/2001/09/2019 CBC w/ auto diff abs imm gran CT 0.0 10*3/ uL 0.0-0. 6 normal Not Available [facility] [address] [facility] [place], [address], 01/09/2019 09:50:14 01/10/2001/09/2019 CBC w/ auto diff neut% 66.1 % 35-66 high Not Available [facility] [address] [place], [address], 01/09/2019 09:50:14 01/10/2001/09/2019 CBC w/ auto diff imm gran % 0.2 % 0-2.0 normal Not Available [facility] [address] [place], [address], 01/09/2019 09:50:14 01/10/2001/09/2019 CBC w/ auto diff lymph% 27.6 % 25-45 normal Not Available [facility] [address] [place], [place] [address], [address], 01/09/2019 09:50:14 01/10/2001/09/2019 CBC w/ auto diff mono% 5.1 % 0-13 normal Not Available [facility] [address] [place], [address], 01/09/2019 09:50:14 01/10/2001/09/2019 CBC w/ auto diff eo% 0.6 % 0-8 normal Not Available [facility] [address] [place], [place] [address], [address], 01/09/2019 09:50:14 01/10/2001/09/2019 CBC w/ auto diff ba% 0.4 % 0-1 normal Not Available [facility] [address] [place], [place] [address], [address], 01/09/2019 09:50:14 01/10/2001/09/2019 CBC w/ auto diff RBC morph normal MODER ATE ANISO SLIGH T MICRO CYTOS IS SLIGH T HYPOC HROMI A Not Available [facility] [address] [place], [place] [address], [address], 01/09/2019 09:50:14 01/10/2001/09/2019 type + scree n, serum blood type A NEGATI VE normal Not Available [facility] [address] [place] [address] [place], [address], 01/09/2019 10:22:11 01/10/2001/09/2019 type + scree n, serum antibody screen NEGATI VE normal Not Available [facility] [address] [place], [address], 01/09/2019 10:22:11 01/10/2001/09/2019 lab resul t results Not Available [facility] [address] [place], [address], 01/12/2019 23:59:35 01/10/2001/11/2019 amphe tamin e (GC/M S), urine amphetamines Negati ve cutoff =500 normal Not Available [facility] [address] [place], [address], 01/13/2019 17:04:24 01/10/20 19 01/11/2019 amphe tamin [...] expec bita outco me. ([email or web address] or call toll- free [phone]) Drug brand s, if liste d herei n, are trade singh of their respe ctive club director s. Perfo rmed at: [facility] [place] [facility] [address], [place] [address] Lab Direc tor: Denny Peck MD, Phone : [phone] Not Available [facility] [address] [place], [address], 01/13/2019 17:04:24 01/12/20 19 01/11/2019 hemog lobin + hemat ocrit , blood HGB 5.6 g/dL 12.0-1 6.0 panic low CRITI LIUDMILA REPOR T [place]EDY D [place] [facility] [place]11 TIME 0753 REPOR T AND PATIE NT IDENT IFICA TION READ BACK TO CONFI RM ACCUR ACY Not Available [facility] [address] [place], [address], 01/11/2019 07:55:53 01/12/2001/11/2019 hemog lobin + hemat ocrit , blood HCT 19.8 % 36-48 panic low Not Available [facility] [address] [place] [address], [address], 01/11/2019 07:55:53 01/12/20 19 01/11/2019 abo group + rh type, blood blood type A NEGATI VE normal Not Available [facility] [address] [place] [address], [address], 01/11/2019 09:31:11 01/12/20 19 01/11/2019 antib donn scree n, serum or plasm a antibody screen NEGATI VE normal Not Available [facility] [address] [place] [address], [address], 01/11/2019 09:31:14 01/12/20 19 01/11/2019 cell scree n, blood scrn res. POSITI VE negati ve high THIS POSIT CASEY SCREE N [facility], FOR QUANT ITATI ON BY [facility] TEST. THE PROPE R DOSE OF RHOGA M FOR THIS PATIE NT WILL BE CALCU LATED FROM THE [facility]- [facility] RESUL T. Not Available [facility] [address] [place] [address], [address], 01/11/2019 09:31:17 01/12/20 19 01/11/2019 Rh immun e globu yonathan scree esme rhogam TRANSF USED PRODUC T: RH IMMUNE GLOBUL IN COUNT: 2 Not Available [facility] [address] [place] [address], [address], 01/11/2019 17:05:17 01/12/20 19 01/12/2019 hemog lobin F (hbf) , blood kleihauer betke SENT [facility] normal RESUL TS FROM [facility] IAL: 3 CELLS /1000 RBC'S ESTIM ATED BLEED = 15 ML Not Available [facility] [address] [place] [address], [address], 01/12/2019 07:04:50 Result Notes None recorded. Problems Name Problem SNOMED Code Status Onset Date Resolution Date Notes Provider Name and Address Organization Details Recorded Time Abdomina l pain 74450979 Completed 12/10/2018 EL Simms, [facility] 9 11:17:23 Cyst of ovary 28764383 Completed 12/10/2018 h/o ov cysts EL Simms, [facility] 9 11:17:54 Herpes simplex 76118542 Active Not Available [facility] 3 03:06:51 Vaginiti s and vulvovag initis Completed 12/10/2018 EL Simms, [facility] 9 11:17:20 Threaten ed miscarri age 50864465 Completed 12/10/2018 EL Simms, [facility] 9 11:17:48 Cyst of ovary 46286871 Completed h/o ov cysts Corina Pamelavalerie [facility] 9 13:12:24 Teenage pregnanc y 304858919 Completed Enrolled in Healthy Families Corina Pamelavalerie [facility] 9 13:12:24 Depressi ve disorder 78826984 Completed h/o suicidal ideation s Corina Pamelavalerie [facility] 9 13:12:24 History of substanc e abuse 684930947 Completed ER visit 2 Corina laughlin [facility] 9 13:12:24 History of RhD negative 747877361 Completed A neg Corina Pamelavalerie [facility] 9 13:12:24 Herpesvi bahman infectio n 71715592 Completed Prophyla xis 36 wks Corinapaula alughlin [facility] 9 13:12:24 Gastroes ophageal reflux disease 765144400 Active Corinapaula laughlin [facility] 9 13:12:24 Gastroes ophageal reflux disease 575352629 Completed Corina laughlin [facility] 9 13:12:24 Proteinu dk 99100187 Active Corina laughlin, [facility] 9 13:12:24 Proteinu dk 27761987 Completed Corina laughlin [facility] 9 13:12:24 Anemia 065630682 Active Corina laughlin, [facility] 9 13:12:24 Anemia 875421883 Completed Corina laughlin [facility] 9 13:12:24 Abnormal vaginal bleeding 926954330 Completed 12/10/2018 EL Simms, [facility] 9 11:17:45 Pregnanc y 63420371 Completed 201801/13/2019 Melbajono Villagran truman [facility] 9 08:52:02 Hypereme sis gravidar um 53336313 Com[facility] 2018 [facility] 08:[facility] Genital herpes simplex 87729418 Completed 2018 2012- only had initial outbreak Melba Tyshawn truman [facility] 9 08:51:56 Postpart um hemorrha ge 90636913 Completed 2018 2014- states she required blood transfus ion. Melba Villagran truman, [facility] 9 08:51:56 Asthma 732690112 Completed 2018 Melba Villagran truman [facility] 9 08:51:56 RhD negative 606000952 Completed 2018 received rhogam 07/04/18/ will need at 28 weeks as well. 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 Melba Villagran truman [facility] 9 08:51:56 History of depressi on 825556285 Completed 2018 Melba laughlin [facility] 9 08:51:56 History of anxiety state 373504499 Completed 2018 Melba laughlin [facility] 9 08:51:56 Screenin g for drug of abuse in urine specimen positive 083148422 Completed 2018 cannabin oid - 51-A filed Melba laughlin [facility] 9 08:51:56 Problem Notes None recorded. Procedures Surgical History Date Name Laterality Status Provider Name and Address Organization Details Recorded Time 9 Date of Last Pap Smear completed Lin buckley [facility] 2018 07:52:28 5 Nexplanon / Implanon Removal completed Tomi Mckinnon MD [address] [place], [place] [address], [address], [facility] 08/21/2014 12:48:49 5 Nexplanon Insertion completed Tomi Mckinnon MD [address] [place], [place] [address], [address], [facility] 07/16/2014 09:42:00 4 established patient counseling (15-24 minutes) completed Alejandro Gomez MD [address] [place] [address] [place], [address], [facility] 09/16/2013 08:15:58 3 established patient counseling (15-24 minutes) completed Alejandro Gomez MD [address] [place], [place] [address], [address], [facility] 10/21/2012 14:53:03 3 established patient counseling (15-24 minutes) completed Alejandro Gomez MD [address] [place] [address] [place], [address], [facility] 08/19/2012 15:31:26 03/07/201 3 established patient counseling (15-24 minutes) completed Alejandro Gomez MD [address] [place], [address], [facility] 08/12/2012 09:27:40 2 established patient counseling (15-24 minutes) completed Alejandro Gomez MD [address] [place], [address], [facility] 09/06/2011 16:24:40 1 established patient counseling (15-24 minutes) completed Alejandro Gomez MD [address] [place] [address], [address], [facility] 05/08/2011 15:36:26 none completed Candida Mcdaniel [facility] 07/29/2012 14:46:50 Imaging Results None recorded. Procedure Notes None recorded. Medical Equipment None Reported. Allergies Allergen ID Allergen Name Allergen Category Reaction Reaction Severity Criticality Documentation Date Start Date Code Code System Note Provider Name and Address Organization Details Recorded Time 923336 oxycodone medicatio n respirato ry distress Not available Not available 09/22/2013 7804 RxNorm dizzy Ethel Castro LPN [facility] 4 09:23:47 21202 codeine medicatio n respirato ry distress Not available Not available 03/06/2011 2670 RxNorm dizzy Not Available [facility] 1 06:32:06 76512 Product containin g penicilli n (product) medicatio n respirato ry distress Not available Not available 08/30/2011 21538 8001 SNOMED dizzy Ligia Gay RN [facility] 2 15:28:23 Medications Name Sig Start [...] Address Organization Details Last Updated DateTime 12/03/2018 13926.29349 g Tao Junior MD [place] - [facility] 12/03/2018 14:46:40 Date Recorded Systolic blood pressure Diastolic blood pressure Provider Name and Address Organization Details Last Updated DateTime 12/03/2018 110 mm[Hg] 60 mm[Hg] Not Available [facility] Record 12/03/2018 14:34:59 Date Recorded Body weight Provider Name an d Address Organization Details Last Updated DateTime 12/17/2018 47426.63707 g Liezl Irisari, MD [facility] 12/31/2018 14:18:46 Date Recorded Systolic blood pressure Diastolic blood pressure Provider Name and Address Organization Details Last Updated DateTime 12/17/2018 110 mm[Hg] 68 mm[Hg] Not Available [facility] 12/17/2018 16:09:08 Date Recorded Body weight Provider Name an d Address Organization Details Last Updated DateTime 12/24/2018 [id number] jeremías Junior MD [facility] 12/31/2018 14:18:47 Date Recorded Systolic blood pressure Diastolic blood pressure Provider Name and Address Organization Details Last Updated DateTime 12/24/2018 116 mm[Hg] 60 mm[Hg] Not Available [facility] 12/24/2018 15:34:53 Date Recorded Body weight Provider Name an d Address Organization Details Last Updated DateTime 12/31/2018 06303.35945 jeremías Junior MD [facility] 12/31/2018 14:18:47 Date Recorded Systolic blood pressure Diastolic blood pressure Provider Name and Address Organization Details Last Updated DateTime 12/31/2018 102 mm[Hg] 68 mm[Hg] Not Available [facility] [place] 12/31/2018 13:53:02 Date Recorded Body weight Provider Name an d Address Organization Details Last Updated DateTime 01/07/2019 [id number] jeremías Junior MD [facility] 01/07/2019 14:10:01 Date Recorded Systolic blood pressure Diastolic blood pressure Provider Name and Address Organization Details Last Updated DateTime 01/07/2019 124 mm[Hg] 80 mm[Hg] Not Available [facility] [place] 01/07/2019 13:48:46 Social History Question Answer Notes LastModified by Organizat ion Details LastModified Time Tobacco Smoking Status Current Every Day Smoker quit Not [facility] 04/06/2020 03:15:48 What Is Your Level Of Alcohol Consumption? None [id number] Information not available 04/06/2020 Are You A Past Or Present Victim Of Abuse? No Information not available 04/19/2011 Illicit Drugs No H/o MJ Use, None Recently Information not available 04/19/2011 Marital Status Single Steady Partner- Stationed In [place] At The Moment [email or web address] Information not available 09/22/2013 What Was The Date Of Your Most Recent Tobacco Screening? 06/28/2018 [id number] Information not available 04/06/2020 Are You Sexually Active? No Not Currently [id number] Information not available 04/06/2020 At What Age Did You Start Smoking Tobacco? 15 [id number] Information not available 04/06/2020 How Much Tobacco Do You Smoke? No [id number] Information not available 04/06/2020 How Many Years Have You Smoked Tobacco? 3 [id number] Information not available 04/06/2020 Sex: Unknown Functional [...] Recorded Time Tdap 11/19/2018 completed Not Available [facility] 06/21/2019 02:20:57 Past Encounters Encounter ID Performer Location Encounter Start Date Encounter Closed Date Diagnosis/Indication Diagnosis SNOMED-CT Code Diagnosis ICD10 Code Diagnosis Note [id number] [facility] [address] [place] [address] 03/06/2011 13:47:52 03/06/2011 15:00:58 [id number] [facility] [place] [address] [place] [address] 05/08/2011 14:05:17 05/08/2011 15:43:23 [id number] Ethel Castro LPN [facility] [address] [place] [address] 08/30/2011 15:18:10 08/30/2011 16:14:53 [id number] [facility] [place] [address] [place] [address] 7 09/06/2011 15:28:53 09/06/2011 16:30:26 [id number] Alejandro Gomez MD [facility] [place] [address] [place] [address] 07/29/2012 14:14:28 08/01/2012 08:20:02 [id number] Alejandro Gomez MD [facility] [place] [address] [place] [address] 08/08/2012 15:05:41 08/12/2012 10:06:18 [id number] Alejandro Gomez MD [facility] [place] [address] [place] [address] 7 08/19/2012 15:06:29 08/19/2012 16:30:58 [id number] Alejandro Gomez MD [facility] [place] [address] [place] [address] 10/21/2012 14:38:06 10/21/2012 15:02:32 [id number] Candida Mcdaniel MA [facility] [address] [place] [address] 09/05/2013 13:48:05 09/05/2013 15:08:50 Routine care [id number] Threatened miscarriage [id number] [facility] [address] [place] [address] [place] [address] 09/11/2013 15:11:22 09/16/2013 08:54:20 [id number] Threatened miscarriage [id number] Tita Mayer [facility] [address] [place] [address] [place] [address] 7 09/22/2013 08:56:23 09/23/2013 08:33:01 Primigravida [id number] * reviewed packet from OB * discuss nutrition & exercise * seatbelt use * obtain medical & ob history * order initial/op tional labs * discuss genetic testing * discuss/ad freight team associate flue vaccine - prn * refer to nutrition - prn * refer to health families - prn * refer to WIC - prn * complete & send insurance precert - prn ([facility], [facility], [facility]) * order early u/s - prn * refer to SS - prn (options) * refer to OBS (early class) [id number] Ethel Castro LPN [facility] [address] [place] [address] [place] [address] 10/01/2013 11:07:06 10/01/2013 13:07:23 Primigravida [id number] Specialize d medical examination [id number] [facility] [id number] [facility] [address] [place] [address] [place] [address] 10/29/2013 11:19:36 10/29/2013 11:54:59 Primigravida [id number] [facility] [address] [place] [address] [place] [address] 11/13/2013 14:22:09 11/13/2013 14:30:30 [id number] Candida Mcdaniel [facility] [address] [place] [address] [place] [address] 7 11/26/2013 10:41:34 11/26/2013 13:02:48 Primigravida [id number] [facility] [address] [place] [address] [place] [address] 7 12/24/2013 10:32:37 12/24/2013 13:39:55 Primigravida [id number] Holly Jose Angel [facility] [address] [place] [address] 7 01/22/2014 14:44:06 01/22/2014 15:52:56 Primigravida [id number] * reviewed packet from OB * discuss nutrition & exercise * seatbelt use * obtain medical & ob history * order initial/op tional labs * discuss genetic testing * discuss/ad freight team associate flue vaccine - prn * refer to nutrition - prn * refer to health families - prn * refer to WIC - prn * complete & send insurance precert - prn ([facility], [facility]) * order early u/s - prn * refer to SS - prn (options) * refer to OBS (early class) Routine an tenatal care [id number] Vesta Lopez [facility] [address] [place] [address] 7 02/12/2014 13:44:59 02/12/2014 14:37:26 Routine care [id number] Tita Mayer CMA [facility] [address] [place] [address] 7 02/16/2014 13:15:11 02/16/2014 15:00:56 Pain in pelvis 53503270 Rhesus isoimmunization with problem 108612244 [id number] Sarahi Perez [facility] [address] [place] [address] 7 02/26/2014 14:05:38 02/27/2014 09:49:35 Primigravida [id number] Routine an tenatal care 460703743 Gastroesop hageal reflux disease 153307645 [id number] Zamzam Calix, ALISA [facility] [address] [place] [address] 7 03/09/2014 14:14:11 03/09/2014 14:48:50 Primigravida [id number] Confirm classesCon firm pediatrici anCircumci clark informatio n [id number] Melba Pierson'Brien [facility] [address] [place] [address] [place] [address] 03/23/2014 14:23:28 03/24/2014 08:48:15 Primigravida [id number] [facility] [address] [place] [address] [place] [address] 04/06/2014 15:14:35 04/08/2014 09:34:26 Primigravida 563859435 GBS informatio n given Contracept ion discussed and informatio n given Review signs of labor [id number] [facility] [address] [place] [address] [address] 04/13/2014 11:21:11 04/13/2014 13:38:55 Primigravida [id number] Confirm classesCon firm pediatrici anCircumci clark informatio n [id number] [facility] [address] [place] [address] 04/20/2014 13:36:12 04/20/2014 15:15:12 Primigravida [id number] GBS informatio n given Contracept ion discussed and informatio n given Review signs of labor [id number] [facility] [address] [place], [place] [address] [address] 04/27/2014 13:55:22 04/28/2014 09:23:06 Primigravida [id number] Laurita [facility] [address] [place] [address] [address] 05/04/2014 13:54:43 05/04/2014 16:20:58 Primigravida [id number] GBS informatio n given Contracept ion discussed and informatio n given Review signs of labor Routine an tenatal care [id number] Tomi Mckinnon MD [facility] [address] [place], [place] [address] [address] 05/12/2014 14:04:25 05/12/2014 14:49:10 Primigravida [id number] [facility] [address] [place], [place] [address] [address] 07/08/2014 13:07:33 07/08/2014 14:23:39 care [id number] [facility] [address] [place] [address] [place] [address] 07/16/2014 08:58:36 07/22/2014 09:48:23 Insertion of subcutaneous contraceptive 601524893 [id number] Carito Wiley [facility] [address] [place] [address] [place] [address] 7 08/21/2014 11:27:48 08/24/2014 08:13:23 Subcutaneous contraceptive implant present 679535101 Uses trans dermal contraception 858896514 [id number] Ligia Gay RN [facility] [address] [place] [address] [place] [address] 01/15/2015 14:57:18 01/19/2015 14:26:46 Abnormal vaginal bleeding 894623077 [id number] Tao Junior MD [facility] [address] [place] [address] [place] [address] 06/28/2018 12:52:25 07/09/2018 11:49:46 Routine care 244579580 Z34.81 * reviewed packet from OB * discuss nutrition & exercise * seatbelt use * obtain medical & ob history * order initial/op tional labs * discuss genetic testing * discuss/ad freight team associate flu vaccine - prn * refer to nutrition - prn * refer to health families - prn * refer to WIC - prn * complete & send insurance precert - prn ([facility], [facility]) * order early u/s - prn * refer to SS - prn (options) * refer to OBS (early class) Hyperemesi s gravidarum 88308937 O21.0 [id number] Tao Junior MD [facility] [address] [place] [address] [place] [address] 07/12/2018 14:03:12 07/12/2018 15:27:48 Routine care 290986313 Z34.81 * reviewed packet from OB * discuss nutrition & exercise * seatbelt use * obtain medical & ob history * order initial/op tional labs * discuss genetic testing * discuss/ad freight team associate flu vaccine - prn * refer to nutrition - prn * refer to health families - prn * refer to WIC - prn * complete & send insurance precert - prn ([facility], [facility]) * order early u/s - prn * refer to SS - prn (options) * refer to OBS (early class) Screening for malignant neoplasm of cervix 616076283 Z12.4 Specialize d medical examination 57018755 Z11.8 Gestation period, 12 weeks 15737558 Z3A.12 hear t rate not observed 812691865 O76 [id number] Tomi Mckinnon MD [facility] [address] [place] [address] 7 08/09/2018 14:07:19 08/09/2018 15:28:23 Routine care 224217164 Z34.82 Gestation period, 17 weeks 56358273 Z3A.17 Gestation period, 18 weeks 17783031 Z3A.18 [id number] Daniel Soto MD [facility] [address] [address] 08/23/2018 08:17:01 08/23/2018 11:38:39 Routine care 982292670 Z34.82 Gestation period, 19 weeks 61053411 Z3A.19 [id number] Tomi Mckinnon MD [facility] [address] [address] 09/10/2018 14:58:12 09/11/2018 11:55:57 Routine care 191505122 Z34.82 Gestation period, 21 weeks 88723566 Z3A.21 [id number] Alejandro Gomez MD [facility] [address] [place] [address] 7 10/08/2018 14:56:26 10/08/2018 15:50:04 Gestation period, 26 weeks 16874323 Z3A.26 Routine an tenatal care 579791910 Z34.82 Gestation period, 25 weeks 75999678 Z3A.25 [id number] Tomi Mckinnon MD [facility] [address] [address] 10/29/2018 11:03:01 10/29/2018 15:56:02 Blood group B Rh(D) negative 410632515 Z67.21 RhD negative 219591396 Z 01.83 Routine an tenatal care 095792052 Z34.83 Gestation period, 28 weeks 17013476 Z3A.28 [id number] Tomi Mckinnon MD [facility] [address] [place] [address] [address] 10/29/2018 11:55:42 10/29/2018 15:25:19 Vaginal discharge 093085097 N89.8 see Nurse visit same day for orders [id number] Alejandro Gomez MD [facility] [address] [place] [address] 7 11/05/2018 13:41:34 11/05/2018 16:40:05 Screening for drug of abuse in urine specimen positive 568965128 R82.5 Gestation period, 29 weeks 43734969 Z3A.29 [id number] Tomi Mckinnon MD [facility] [address] [place] [address] 7 11/19/2018 13:58:33 11/19/2018 14:48:09 Routine care 045152726 Z34.83 Gestation period, 31 weeks 51128663 Z3A.31 Administra tion of diphtheria, pertussis, and tetanus vaccine 552807852 Z23 [id number] Tao Junior MD [facility] [address] [place] [address] [address] 12/03/2018 14:21:42 12/03/2018 15:13:37 Gestation period, 33 weeks 91411653 Z3A.33 [id number] Tomi Mckinnon MD [facility] [address] [place] [address] 7 12/17/2018 15:58:04 12/17/2018 16:34:37 Routine care 130906675 Z34.83 Gestation period, 35 weeks 07583277 Z3A.35 Genital he rpes simplex 95916994 O98.313 Gastroesop hageal reflux disease 577908962 K21.9 [id number] Tomi Mckinnon MD [facility] [address] [place] [address] 12/24/2018 15:23:03 12/24/2018 16:23:43 Routine care 116948555 Z34.83 Gestation period, 36 weeks 01076987 Z3A.36 [id number] Tao Junior MD [facility] [address] [place] [address] 7 12/31/2018 13:45:54 12/31/2018 14:24:28 Routine care 599392269 Z34.83 Gestation period, 37 weeks 20376758 Z3A.37 [id number] Tao Junior MD [facility] [address] [place] [address] 7 01/07/2019 13:42:18 01/07/2019 14:15:12 Routine care 176558099 Z34.83 Gestation period, 38 weeks 71478180 Z3A.38 Health Concerns Section Related Observation LastModified by Organization Detai ls LastModified Time None Recorded Concern Status LastModified by Organization Details LastModified Time None Recorded Advance Directives Directive None Recorded Payers Encounter Date Sequence Insurance Name Policy Number Policy Kirkland Covered Member ID [place] Member ID Guarantor Name 12/03/2018 1 [place] Deepti Aguilar [id number] Deepti Aguialr 12/17/2018 1 [place] Deept[place] Aguilar [id number] Deepti Aguilar 12/24/2018 1 [place] Deepti Aguilar [id number] Deepti Aguilar 12/31/2018 1 [place] Deepti Aguilar [id number] Deepti Aguilar 01/07/2019 1 [place] Deepti Aguilar [id number] Deepti Aguilar OBGyn Episode Ob Episode Information Episode Created Date Number of Fetuses Patient Bloodtype Patient rh Status Prepregnancy Weight lbs Domestic Partner Domestic Partner Phone Father Name Lab Clerk Status 09/23/19 14 1 A Negative 96 Mayur Manzano CLOSED Fetus Data First Name Last Name Admitted to NICU Weight (g) Sex Living Outcome Pediatric Complications Fetus ID Race Codes Race Delivery Type Adalyn n 3543.68 75 F Full Term 14968 Vaginal (14994) Problems Problem Notes Pt had flu vax 03/2013 Problem Name Start Date End Date Resolution Snomed Code Not e Cyst of ovary 27080226 h/o ov cysts Teenage 085542149 En rolled in [employer] Depressive disorder 28140956 h/o suicidal ideations History of substance abuse 929992302 ER visit 012 Herpesvirus infection 77596038 Prophylaxis 36 wks History of RhD negative 221856 004 A neg Gastroesophageal reflux disease 310363240 Anemia 087355613 Proteinuria 24709726 Adams Calculation Initial Adams Date Initial Exam [...] Type Weight in lbs Pre/Post Dialysis Refused 99.7839909471244 BP Diastolic BP Location Tested BP Systolic [...] & advise. Pt is already enrolled in [employer], (her HS referred her). Pt has appt in [facility] @ [facility]. Discussed CF & ERA testing, pt will [...] Type Weight in lbs Pre/Post Dialysis Refused 99.1197291745412 BP Diastolic BP Location Tested BP Systolic [...] Type Weight in lbs Pre/Post Dialysis Refused 96.2605911589298 BP Diastolic BP Location Tested BP Systolic [...] Type Weight in lbs Pre/Post Dialysis Refused 98.0914996844941 BP Diastolic BP Location Tested BP Systolic [...] Type Weight in lbs Pre/Post Dialysis Refused 101.436366526353 BP Diastolic BP Location Tested BP Systolic [...] Type Weight in lbs Pre/Post Dialysis Refused 105.045367131570 BP Diastolic BP Location Tested BP Systolic [...] Type Weight in lbs Pre/Post Dialysis Refused 106.03209751913 BP Diastolic BP Location Tested BP Systolic [...] Type Weight in lbs Pre/Post Dialysis Refused 108.772544272802 BP Diastolic BP Location Tested BP Systolic [...] Type Weight in lbs Pre/Post Dialysis Refused 109.317920260483 BP Diastolic BP Location Tested BP Systolic BP Type 60 R arm 120 sitting Fetus Heart Rate Present A Present Fetus Movement A Yes Comments PT presents for return OB vi sit-no issues or concerns at this time- VLB// Pt missing a lot of school due to pain and continued nausea. 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 Flowsheet Date 03/23/2014 Marquez Score Blood Edema Fundus Height Fundus Units Glucose Ketones Leukocytes Nitrite Labor Signs Protein Cervic Dilation Cervic Effacement Cervic Station none 33 cm Uterine Contract ions Type Weight in lbs Pre/Post Dialysis Refused 112.728440459312 BP Diastolic BP Location Tested BP Systolic [...] Type Weight in lbs Pre/Post Dialysis Refused 117.974499413926 BP Diastolic BP Location Tested BP Systolic [...] Type Weight in lbs Pre/Post Dialysis Refused 118.937854310168 BP Diastolic BP Location Tested BP Systolic [...] Type Weight in lbs Pre/Post Dialysis Refused 119.069539744791 BP Diastolic BP Location Tested BP Systolic [...] Type Weight in lbs Pre/Post Dialysis Refused 121.983667683213 BP Diastolic BP Location Tested BP Systolic [...] Type Weight in lbs Pre/Post Dialysis Refused 124.633823764903 BP Diastolic BP Location Tested BP Systolic [...] Type Weight in lbs Pre/Post Dialysis Refused 125.560694194008 BP Diastolic BP Location Tested BP Systolic [...] Weight in lbs Pre/Post Dialysis Refused Weight 103.805068773076 BP Diastolic BP Location Tested BP Systolic [...] Post Complications Tubal Sterilization Discharge Date Comments 12/11/201 4 Regional-Ep idural 41 Hemorrhage Discharge Information Feeding Method Contraceptive Method Maternal HG B and HCT Levels Ob Episode Information Episode Created Date Number of Fetuses Patient Bloodtype Patient rh Status Prepregnancy Weight lbs Domestic Partner Domestic Partner Phone Father Name Lab Clerk Status 06/28/19 19 1 A Negative 107 Domestic Partner Elder Geronimo CLOSED Fetus Data First Name Last Name Admitted to NICU Weight (g) Sex Living Outcome Pediatric Complications Fetus ID Race Codes Race Delivery Type M 13063 Vaginal (89454) Problems Problem Notes Received flu vaccine this se ason. EPDS screen 15- patient states this is related to her hyperemesis symptoms, not depression.On Zantac- UDS positive for amphetamines- prob false positive Problem Name Start Date End Date Resolution Snomed Code Not e Hyperemesis gravidarum 06/28/2018 51644432 Group B Streptococcus carrier 1378234219306 in urine - no culture needed at 36wks. Screening for drug of abuse in urine specimen positive 06/28/2018 439587881 cannabinoi d - 51-A filed hemorrhage 06/28/2018 9248378 1 2013- states she required blood transfusion. Asthma 06/28/2018 195600563 RhD negative 06/28/2018 396068244 receiv ed rhogam 07/04/18/ will need at 28 weeks as well. History of depression 07/30/2018 3054325 08 History of anxiety state 07/30/2018 107784153 Genital herpes simplex 06/28/2018 86137624 2011- only had initial outbreak Adams Calculation [...] relationship; shares custody with him. FOB in [employer], stationed in [place]. Nutrition and expected weight gain discussed. Patient stating she is not able to keep any food/liquid down, has been to ER multiple times for hydration. Has tried samples for Bonjesta x1 week with no results. Patient consented to all routine labs. Zika virus reviewed, no plans for either to travel. Genetic testing discussed, patient interested in [id number] and Quad screen for NTD. Advised patient to review information and check insurance coverage, will have set up at [facility] if still interested. 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 Mckinnon. She would like to do [facility] genetics testing. Will order at [...] Weight in lbs Pre/Post Dialysis Refused Weight 106.59665084355 BP Diastolic BP Location Tested BP Systolic [...] Weight in lbs Pre/Post Dialysis Refused Weight 108.041153102851 BP Diastolic BP Location Tested BP Systolic [...] Weight in lbs Pre/Post Dialysis Refused Weight 113.808672606454 BP Diastolic BP Location Tested BP Systolic [...] Weight in lbs Pre/Post Dialysis Refused Weight 117.030861623892 BP Diastolic BP Location Tested BP Systolic [...] timing UCs. Reports weeks of leakage . 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 Amnisure collected. Perineum dry, no pooling. [...] Weight in lbs Pre/Post Dialysis Refused Weight 118.224032336957 BP Diastolic BP Location Tested BP Systolic [...] Weight in lbs Pre/Post Dialysis Refused Weight 118.836795453608 BP Diastolic BP Location Tested BP Systolic [...] Weight in lbs Pre/Post Dialysis Refused Weight 119.909868614479 BP Diastolic BP Location Tested BP Systolic [...] Weight in lbs Pre/Post Dialysis Refused Weight 123.867994131664 BP Diastolic BP Location Tested BP Systolic [...] Weight in lbs Pre/Post Dialysis Refused Weight 123.981525759321 BP Diastolic BP Location Tested BP Systolic [...] Weight in lbs Pre/Post Dialysis Refused Weight 123.420740531288 BP Diastolic BP Location Tested BP Systolic [...] Weight in lbs Pre/Post Dialysis Refused Weight 123.234418894868 BP Diastolic BP Location Tested BP Systolic [...] older at estimated date of delivery false Namibian, Thalassemia A or B false Neural tube defect true FOB's Uncle Congenital anomalies false Down's Syndrome true FOB's Uncle Kendrick-Sachs disease false Sickle Cell Disease Or Trait false Hemophilia false Muscular Dystrophy false Cystic Fibrosis false [place]'s Chorea false Mental Retardation false Test for Fragile X? false Other inherited genetic or c hromosomal disorder false Any other genetic history false Other infection history false Congenital heart disease false FOB - Nationality false Cauc: [place]cuadorean C anadian, [place], Icelandic FOB - Age false 21 PKU false Toxoplasmosis false Tobacco false Abdominal or epigastric pain true Lead Performance Support Analyst mping Headache or dizziness true Dizzy, hea [...] violence td [email or web address] 06/28/2018 Environmental/work hazards t gu06/28/2018 Screening for aneuploidy tdu guay06/28/2018 Nutrition counseling ; special diet; dietary precautions (mercury, listeriosis) 06/28/2018 Childbirth classes/hospital facilities 06/28/2018 HIV and other routine tests 06/28/2018 Risk factors identif ied by history td06/28/2018 Weight gain counseling tdugu ay06/28/2018 Exercise td06/28/2018 Teratogens 06/28/2018 Use of any medicatio ns (including supplements, vitamins, herbs, or OTC drugs) td06/28/2018 td06/28/2018 Sexual activity 06/28/2018 Tobacco/smoking cess ation counseling (ask, advise, assess, assist, and arrange) 06/28/2018 Illicit/recreational drugs t [place]06/28/2018 Dental care tduguay06/28/2018 Travel td06/28/2018 Seat belt [...]
--- OUTSIDE RECORDS SUMMARY | 2024-07-31 13:53 | XMS_ITS | Encounter Summary ---
Author Organization [employer] Address [address] [facility] 7t [place] [address] Care Team Providers Care Snout Puller Name Role Phone Ibeth Lassiter MD Primary Care Provider [phone] Reason for Visit * Reason Onset Date Comments Call Back Request 11/06/2023 Encounter Details Date Type Department Care Team ([facility] st Contact Info) Description 11/06/2023 Telephone [facility] CHC MED & PEDS [address] [place], [place] [id number] Ibeth Lassiter MD [address] [place] [address] Call Back Request Social History Tobacco Use [...] to discuss removal. Please contact pt at [phone] documented in this encounter Plan of Treatment Upcoming Encounters Date Type Department Care Team (Late st Contact Info) Description 09/04/2024 2:00 PM EDT Clinical Support [facility] MED & PEDS [address] [place] [address] Anastasiia Ocampo, RN [address] [place] [address] 09/10/2024 11:30 AM EDT Office Visit [facility] CHC MED & PEDS [address] [place] [address] Rosalina Mathews MD [address] [place] [address] documented as of this encounter Visit Diagnoses Not on filedocumented in this encounter Additional Health Concerns Assessment Noted Time PHQ-9 Depression Total Score: 14 023 10:26 AM EDT documented as of this encounter Care Teams Snout Puller Relationship Specialty Start Date End Date Ibeth Lassiter MD [address] [place] [address] PCP - General Family Medicine 12/16/21 documented as of this encounter
--- OUTSIDE RECORDS SUMMARY | 2024-07-31 13:53 | XMS_ITS | Encounter Summary ---
Author Organization [employer] Address [address] [facility] 7[address] [place] [address] Care Team Providers Care Greenhouse Manager Name Role Phone Ibeth Lassiter MD Primary Care Provider [phone] Reason for Visit * Reason Comments Med Refill Encounter Details Date Type Department Care Team ([facility] st Contact Info) Description 12/14/2023 Refill [facility] CHC MED & PEDS [address] [place] [address] Ibeth Lassiter MD [address] [place] [address] Mood disorder (CMS/HCC) Social History Tobacco Use [...] [facility] [address] [place] [address] Anastasiia Ocampo RN [address] [place] [address] 09/10/2024 11:30 AM EDT Office Visit [facility] MED & PEDS [address] [place] [address] Rosalina Mathews MD [address] [place] [address] documented as of this encounter Visit Diagnoses Diagnosis Mood disorder (CMS/HCC) Unspecified episodic mood disorder documented in this encounter Additional Health Concerns Assessment Noted Time PHQ-9 Depression Total Score: 24 024 3:55 PM EDT documented as of this encounter Care Teams Greenhouse Manager Relationship Specialty Start Date End Date Ibeth Lassiter MD [address] [place] [address] PCP - General Family Medicine 12/16/21 documented as of this encounter
--- OUTSIDE RECORDS SUMMARY | 2024-07-31 13:53 | XMS_ITS | Encounter Summary ---
Author Organization [employer] Address [address] [facility] [address] [place] [address] Care Team Providers Care Charge Coordinator Name Role Phone Ibeth Lassiter MD Primary Care Provider [phone] Encounter Details Date Type Department Care Team (Latest Contact Info) Description 07/24/2024 Travel Social History Tobacco Use Types Packs/Day [...] [facility] MED & PEDS [address] [place] [address] Anastasiia Ocampo RN [address] [place] [address] 09/10/2024 11:30 AM EDT Office Visit [facility] MED & PEDS [address] [place] [address] Rosalina Mathews MD [address] [place] [address] documented as of this encounter Visit Diagnoses Not on filedocumented in this encounter Additional Health Concerns Assessment Noted Time PHQ-9 Depression Total Score: 22 025 10:04 AM EST documented as of this encounter Care Teams Charge Coordinator Relationship Specialty Start Date End Date Ibeth Lassiter MD [address] [place] [address] PCP - General Family Medicine 12/16/21 documented as of this encounter
--- OUTSIDE RECORDS SUMMARY | 2024-07-31 13:54 | XMS_ITS | Encounter Summary ---
Author Organization [employer] Address [address] [facility] [address] [place] [address] Care Team Providers Care Balloon Tester Name Role Phone Ibeth Lassiter MD Primary Care Provider [phone] Reason for Visit * Reason Onset Date Comments Med Refill 02/15/2024 Encounter Details Date Type Department Care Team (Late st Contact Info) Description 02/15/2024 Refill [facility] CHC MED & PEDS [address] [place] [address] Ibeth Lassiter MD [address] [place] [address] Acute necrotizing pancreatitis Social History Tobacco Use [...] 09/04/2024 2:00 PM EDT Clinical Support [facility] MED & PEDS [address] [place] [address] Anastasiia Ocampo RN [address] [place] [address] 09/10/2024 11:30 AM EDT Office Visit [facility] MED & PEDS [address] [place] [address] Rosalina Mathews MD [address] [place] [address] documented as of this encounter Visit Diagnoses Diagnosis Acute necrotizing pancreatitis Acute pancreatitis documented in this encounter Additional Health Concerns Assessment Noted Time PHQ-9 Depression Total Score: 24 024 3:55 PM EDT documented as of this encounter Care Teams Balloon Tester Relationship Specialty Start Date End Date Ibeth Lassiter MD [address] [place] [address] PCP - General Family Medicine 12/16/21 documented as of this encounter
--- OUTSIDE RECORDS SUMMARY | 2024-07-31 13:54 | XMS_ITS | Encounter Summary ---
Author Organization [employer] Address [address] [facility] 7[address] [place] [address] Care Team Providers Care Data Migration Lead Name Role Phone Ibeth Lassiter MD Primary Care Provider [phone] Reason for Visit * Reason Onset Date Comments Med Refill 02/07/2024 Encounter Details Date Type Department Care Team (Late st Contact Info) Description 02/07/2024 Refill [facility] CHC MED & PEDS [address] [place] [address] Ibeth Lassiter MD [address] [place] [address] Acute necrotizing pancreatitis Social History Tobacco Use [...] Description 09/04/2024 2:00 PM EDT Clinical Support [facility] MED & PEDS [address] [place] [address] Anastasiia Ocampo, EL [address] [place] [address] 09/10/2024 11:30 AM EDT Office Visit [facility] MED & PEDS [address] [place] [address] Rosalina Mathews MD [address] [place] [address] documented as of this encounter Visit Diagnoses Diagnosis Acute necrotizing pancreatitis Acute pancreatitis documented in this encounter Additional Health Concerns Assessment Noted Time PHQ-9 Depression Total Score: 24 024 3:55 PM EDT documented as of this encounter Care Teams Data Migration Lead Relationship Specialty Start Date End Date Ibeth Lassiter MD [address] [place] [address] PCP - General Family Medicine 12/16/21 documented as of this encounter
[2024-07-31] MEDS: Lipase/Prot/Amylase 24/76/120K 1 CAP CAPSULE.DR PO (14:07)
--- NOTE | 2024-07-31 14:51 | MHC.CM.PN ---
PT REPORTS SHE LIVES WITH HER S/O AND CHILDREN SHE IS INDEPENDENT WITH CARE AND HAS NO DME DECLINES HCP PCP: ARIC KAY OBSERVATION NOTICE DELIVERED DCP: HOME NO SERVICES VIA PRIVATE TRANSPORT
--- NOTE | 2024-07-31 15:35 | PC.NURSE ---
pt denies chest pain.
--- NOTE | 2024-07-31 16:09 | PM.DS ---
DS: Providers Provider Date of Service: 07/31/24 Date of admission: 07/31/24 06:07 Date of discharge: 07/31/24 Primary care physician: Ibeth Lassiter MD Consults: 07/31/24 06:33 Consult to Gastroenterology Routine Consulting Provider: Chris Chandler Reason for consultation: Chronic pancreatitis DS: Diagnosis Discharge Diagnosis (1) Nausea & vomiting: Status: Acute DS: Summary Hospital Course Hospital Course: from initial hpi: 29-year-old female with pertinent history of alcohol use disorder who is now sober since 2022, chronic alcoholic pancreatitis, splenic/portal vein thrombosis, history of necrotizing pancreatitis status post percutaneous drainage, complicated by disconnected pancreatic duct syndrome, mood disorder who presents to the emergency department for evaluation of abdominal pain. Patient states her symptoms started 2 days prior to presentation. Patient was recently admitted with and discharged on 07/18. She has been having epigastric pain which was initially intermittent. Difficulty tolerating p.o. intake due to associated nausea and vomiting. Pain not relieved with morphine at home. No fever, chills, chest pain, palpitations, shortness of breath, changes in urinary habits In the emergency department, liver enzymes found to be elevated and Gastroenterology was consulted who requested admission. CT abdomen without any acute abnormality. hospital course: Patient was admitted for intractable abdominal pain recurrent due to chronic alcoholic pancreatitis was treated with pain meds, Creon, was seen by GI who felt no further workup needed at this time. Tolerate solids and will be discharged home. Time Attestation Discharge Coordination Time (in mins): 34 Quality: Safe Use of Opioids Does Pt have an Active Cancer Diagnosis on the Problem List?: No Quality: Stroke Does the patient have a stroke diagnosis?: No Physical Exam Vital Signs: Vital Signs: Last Vital Signs Temp 98.2 F 07/31/24 09:26 Pulse 65 07/31/24 12:19 Resp 16 07/31/24 12:19 BP 97/57 L 07/31/24 12:19 Pulse Ox 100 07/31/24 12:19 O2 Del Method Room Air 07/31/24 12:19 BMI result Body Mass Index 22.3 General: AO X 3, no acute distress Resp: CTA bilateral, no accessory muscles used CVS: S1,S2,RRR GI: soft, non tender, non distended Neuro: motor grossly intact, alert Psych: appropriate affect, appropriate insight DS: Data Data Completed and Pending Completed studies during hospitalization [Text1]: Procedures Detoxification Services for Substance Abuse Treatment (09/04/23) Labs on day of discharge: Laboratory Results - last 24 hr 07/30/24 07/31/24 20:54 09:08 WBC 6.5 RBC 4.76 Hgb 11.8 L Hct 36.5 L MCV 76.7 L MCH 24.8 L MCHC 32.3 RDW 15.3 Plt Count 274 MPV 10.6 Immature Gran % (Auto) 0.2 Neut % (Auto) 47.4 Lymph % (Auto) 41.7 H [place] % (Auto) 7.4 Eos % (Auto) 2.5 Baso % (Auto) 0.8 Lymph # (Auto) 2.7 [place] # (Auto) 0.5 Eos # (Auto) 0.2 Baso # (Auto) 0.1 Abs Immat Gran (auto) 0.01 Absolute Neuts (auto) 3.1 Absolute Nucleated RBC 0.000 Nucleated RBC % (auto) 0.0 PT 14.4 H D INR 1.2 H Sodium 138 Potassium 3.6 Chloride 111 H Carbon Dioxide 19 L Anion Gap 12 BUN 5 L Creatinine 0.64 Estim Creat Clear Calc 113.0 Estimated GFR > 60 Random Glucose 92 Calcium 8.9 Total Bilirubin 0.3 0.3 Direct Bilirubin 0.2 AST 80 H 53 H ALT 169 H 119 H Alkaline Phosphatase 219 H 178 H Total Protein 7.2 5.8 L Albumin 4.2 3.5 Lipase < 4 L Beta HCG, Quant < 2 Urine Color Yellow Urine Appearance Clear Urine pH 6.0 Ur Specific [place] 1.025 Urine Protein Trace Urine Glucose (UA) Negative Urine Ketones Trace Urine Blood Negative Urine Nitrite Negative Ur Leukocyte Esterase Negative Urine RBC 0-2 Urine WBC 0-5 Ur Squamous Epith Cells 6-10 Urine Bacteria None Seen Hyaline Casts 0-2 Ethyl Alcohol < 10 Discharge Plan Discharge Anticipated Discharge Date/Time: 07/31/24 16:07 Patient Disposition: Home, Self-Care Discharge Diagnosis: chronic pancreatitis Referrals: Ibeth Lassiter MD [Primary Care Provider] - 1 Week Discharge Medications: Continued hydroxyzine pamoate 50 mg capsule 50 mg PO Q6H PRN (Reason: anxiety) pregabalin 100 mg capsule 100 mg PO BID Creon 24,000-76,000 -120,000 unit Capsule,Delayed Release(Dr/Ec) 1 cap PO TIDWM Qty: 270 0RF morphine 15 mg tablet 22.5 mg PO Q12H Qty: 90 0RF ondansetron 4 mg tablet,disintegrating 4 mg PO Q8H PRN (Reason: nausea and vomiting) Qty: 7 0RF meloxicam 15 mg tablet 15 mg DAILY sertraline 50 mg tablet 50 mg PO DAILY mirtazapine 7.5 mg tablet 7.5 mg PO DAILY pantoprazole 40 mg tablet,delayed release (DR/EC) 40 mg PO DAILY@0630 Discharge Orders: Discharge Order (Routine); Ordered 07/31/24 Ordered By: Oscar Murillo Diet: Advance to usual diet Activity on Discharge: As tolerated Stand Alone Forms: Patient Portal Discharge page Print Language: Surinamese Care Plan Goals: recovery Health Concerns: chronic pancreatitis Plan of Treatment: pain cotnrol Assessment: see above
--- NOTE | 2024-07-31 16:37 | PM.EVENT ---
Event Note Date of Service: 07/31/24 Event Note: GI Consult-Full note dictated. History from patient and EMR. Imp: 29 yo female with chronic abdominal pain and pancreatic insufficiency due to chronic pancreatitis from previous EtOH abuse. She presented with more than her usual baseline pain and vomiting, as well as some mildly elevated LFT's of unclear etiology. Her workup was negative for any signs of acute biliary disease or pancreatitis. There was no sign of bleeding. She is presently feeling back to her baseline and has tolerated some food. Her LFT's are improved as well. She is asking about going home already. Rec: I would agree with discharge if she remains stable this afternoon. She will follow up with Dr. Scherer at [facility] next week. I did advise her to continue to use her Creon with each meal and to continue her > 1 year of sobriety. She was comfortable with this plan. Thanks Time Spent With Patient Time: Total time managing care of this patient today ____ minutes.
--- NOTE | 2024-07-31 23:38 | CONS_ITS ---
DATE OF SERVICE: 07/31/2024 REASON FOR CONSULTATION: Abdominal pain, elevated LFTs, and chronic pancreatitis. HISTORY OF PRESENT ILLNESS: Patient is a 29-year-old female, known to me from a hospitalization at the beginning of this month in regard to her underlying history of chronic pancreatitis. I met her on July 06. She receives primary GI care from Dr. Scherer at [facility] GI Department. She has a previous history of alcohol abuse, but with sobriety for over 1 year now. During the time of active drinking, she developed severe pancreatitis with associated necrosis requiring hospitalization at [facility] with at least 1 percutaneous drainage of the pancreas. She has had numerous ER visits subsequent to that for abdominal pain. She is followed by Dr. Scherer at [facility] and describes having undergone procedures with him including endoscopic ultrasounds and possible ERCPs. She had undergone a cholecystectomy at [facility] in May and had a biliary stent placed according to a previous CT scan report. The stent was subsequently removed. She was hospitalized here in beginning of this month due to some abdominal pain and a CT scan raising a suspicion of a pancreatic mass, which ultimately turned out not to be the case on a followup MRI study the following day. There was no sign of any acute pancreatitis on the imaging studies nor by her laboratories when she was here earlier this month. The patient does describe having a baseline abdominal pain of a 5/10. She does take morphine p.r.n. at home. She is also on Creon pancreatic enzyme replacement. She has remained sober from alcohol for over 1 year now. She developed increasing pain yesterday with associated vomiting. She also describes oily stools. She does report that she is not always compliant with her Creon before meals. There was some vomiting yesterday. There was no sign of any GI bleeding. She denies any jaundice. She was not using any acetaminophen nor NSAIDs. Due to the increasing pain, she came to the ER. A CT scan was negative for any sign of acute pancreatitis or biliary disease. She did have some slight elevation of her liver enzymes and was admitted. Today, she is feeling somewhat better and back to her baseline of about a 5/10 pain. She did tolerate some mashed potatoes earlier today. She has had no further vomiting. Her LFTs are slightly improved today. She is asking about going home. MEDICATIONS: At home, morphine, Creon, mirtazapine, pregabalin, sertraline, Zofran. Her medications here in the hospital included acetaminophen, Lovenox, Dilaudid p.r.n., hydroxyzine, Creon, melatonin, Remeron, morphine, Lyrica, Zofran, and sertraline. PAST MEDICAL HISTORY: Pancreatitis as above with associated complication of necrosis and need for IR drainage at [facility]. Alcohol abuse with sobriety since 2023. She is followed by Dr. Scherer at [facility] GI. Asthma. Cholecystectomy. She denies any history of heart disease, diabetes, stroke, nor kidney disease. SOCIAL HISTORY: She has 3 children. She currently does not use any alcohol at all. FAMILY HISTORY: Noncontributory. REVIEW OF SYSTEMS: CONSTITUTIONAL: She has chronic abdominal pain at baseline. CARDIAC: No chest pain. PULMONARY: No coughing or hemoptysis. GI: As above. URINARY: No dysuria. No hematuria. NEUROLOGIC: No headache or seizures. PHYSICAL EXAMINATION: GENERAL: The patient is a pleasant, alert, comfortable-appearing female, lying in bed. SKIN: Warm and dry. Nonjaundiced. ABDOMEN: Soft, nondistended. There is some mild epigastric tenderness to palpation, but without mass. There is no rebound or guarding. EXTREMITIES: Without edema. NEUROLOGICAL: She is alert and oriented. She answers questions appropriately. LABORATORY DATA: White count 6.5, hemoglobin 11.8, platelets 274,000. PT 14.4 with INR 1.2. Normal electrolytes, BUN and creatinine. Initial AST was 80, but repeat was 53. ALT was 169 and repeat was 119. Alkaline phosphatase was 219 and repeat was 178. Albumin was 3.5. Total bilirubin was normal at 0.3. Lipase was less than 4. Her CT scan of the abdomen was negative for any sign of acute inflammatory changes around the pancreas. There was no sign of any biliary dilatation. The liver and spleen appeared normal. There was no sign of any intraabdominal fluid. IMPRESSION: Given the patient's clinical history, it does appear that she did have some increasing abdominal pain, although without any definitive evidence of pancreatitis. She does describe some noncompliance with her Creon and perhaps that caused some increasing pancreatic-type pain. There was no sign of any biliary disease and given a negative MRCP in that regard several weeks ago, I do not think that would be worthwhile to repeat. At this point, she appears to be back to baseline. She does seem eager to go home and I would agree with discharge if she continues to remain stable. She does advise me that she has an appointment next week with Dr. Scherer at [facility], and I did advise her to be sure to keep that. I did advise her to obtain a followup liver profile to be sure things are continuing to improve. I did advise her to certainly remain compliant with her Creon with each meal and to obviously continue her over 1 year now of sobriety. She was comfortable with this plan. Thank you for the consultation. MD BINTA Vick/DERECK / [phone]
== END 2024-07-31 17:19 | disposition home or self-care (01) | DRG 282 ==
LOC: HO.ED 07-31 02:58 → HO.EDOVER 07-31 07:07
PROVIDERS: Internal Medicine; Physician Assistant; Admitting Provider Student in an Organized Health Care Education/Training Program; Emergency Provider Emergency Medicine; PCP Family Medicine; Visit Provider Internal Medicine
DX: K86.0 Alcohol-induced chronic pancreatitis (principal); F10.21 Alcohol dependence, in remission; F39 Unspecified mood [affective] disorder; K21.9 Gastro-esophageal reflux disease without esophagitis; Z91.148 Patient's other noncompliance with medication regimen for other reason; Z79.899 Other long term (current) drug therapy
CPT/HCPCS: 36415; 74177; 80053; 80076; 80307; 81001; 83690; 84702; 85025; 85610; 93005; 99285; J1171; J1650; J2270; J2405; J7120; Q9967

== ENCOUNTER → 2024-07-30 20:13 | Outpatient (BNV) | payer MEDICAID, SELFPAY | PROVIDERS: Admitting Provider Student in an Organized Health Care Education/Training Program; Emergency Provider Emergency Medicine; PCP Family Medicine; Visit Provider Internal Medicine Cardiovascular Disease | DX: R94.31 Abnormal electrocardiogram [ECG] [EKG] (principal); R10.9 Unspecified abdominal pain | CPT/HCPCS: 93010 ==

== ENCOUNTER → 2024-07-31 00:35 | Outpatient (BNV) | payer MEDICAID, SELFPAY | PROVIDERS: Emergency Provider Emergency Medicine; PCP Family Medicine; Visit Provider Radiology Diagnostic Radiology | DX: R10.9 Unspecified abdominal pain (principal) | CPT/HCPCS: 74177 ==

== ENCOUNTER → 2024-07-31 06:07 | Outpatient (BNV) | payer MEDICAID, SELFPAY | PROVIDERS: Admitting Provider Student in an Organized Health Care Education/Training Program; Emergency Provider Emergency Medicine; PCP Family Medicine; Visit Provider Student in an Organized Health Care Education/Training Program | DX: K86.1 Other chronic pancreatitis (principal); R11.2 Nausea with vomiting, unspecified | CPT/HCPCS: 99235; 99499 ==

== ENCOUNTER 2024-08-03 19:20 | Emergency (ER) | payer MEDICAID, SELFPAY ==
[2024-08-03 19:21] VITALS: BP 116/63; PULSE 94; RESP 16; TEMP 36.7; O2SAT 99; BMI 22.3
--- NOTE | 2024-08-03 19:25 | ED.GENADULT ---
HPI - General Adult General Chief complaint: Abdominal Pain Stated complaint: pancreas? Time Seen by Provider: 08/03/24 21:45 Source: patient, RN notes reviewed and old records reviewed Mode of arrival: ambulatory Limitations: no limitations History of Present Illness ED Provider: Bee MOROCHO narrative: 29-year-old female with past medical history significant for alcohol dependence, sober for the last 2 years approximately, chronic pancreatitis presents for evaluation of upper abdominal pain. The patient has chronic pancreatic deformities related to previous episodes of acute alcoholic pancreatitis that was previously requiring percutaneous drainage due to necrotizing pancreatitis she was previously admitted here on 07/31/2024 and discharged later that day after being treated for chronic pancreatitis with IV narcotics. The patient was seen in consultation who felt the patient was stable for discharge after she was feeling better with continuing her Creon and following up with Dr. Scherer at [facility] the patient reports continued pain on denies any fevers or chills. She reports that she has remained sober for approximately 2 years Related Data Home Medications ?Medication ?Instructions ?Recorded ?Confirmed hydroxyzine pamoate 50 mg capsule 50 mg PO Q6H PRN anxiety 07/05/24 07/31/24 pregabalin 100 mg capsule 100 mg PO BID 07/05/24 07/31/24 meloxicam 15 mg tablet 15 mg DAILY 07/31/24 07/31/24 mirtazapine 7.5 mg tablet 7.5 mg PO DAILY 07/31/24 07/31/24 pantoprazole 40 mg tablet,delayed 40 mg PO DAILY@0630 Heartburn 07/31/24 07/31/24 release sertraline 50 mg tablet 50 mg PO DAILY 07/31/24 07/31/24 Previous Rx's ?Medication ?Instructions ?Recorded ondansetron 4 mg disintegrating 4 mg PO Q8H PRN nausea and 06/06/24 tablet vomiting #7 tabs [id number]-jvhnbocx-hazmvsa 1 cap PO TIDWM #270 caps 07/18/24 24,000-76,000-120,000 unit capsule,delayed rel (Creon) morphine 15 mg immediate release 22.5 mg (1.5 x 15 mg) PO Q12H #90 07/18/24 tablet tabs Allergies Allergy/AdvReac Type Severity Reaction Status Date / Time No Known Allergies Allergy Verified 08/03/24 19:23 Review of Systems Constitutional: Constitutional: Denies body ache(s), Denies chills, Denies fever(s) and Denies headache(s) Eyes: Eyes: Denies blurry vision ENT: Denies vertigo, Denies dizziness and Denies headache(s) Cardiovascular: Cardiovascular: Denies chest pain and Denies dyspnea Respiratory: Respiratory: Denies cough and Denies dyspnea Gastrointestinal: Gastrointestinal: Reports abdominal pain, Reports nausea and Reports vomiting Musculoskeletal: Musculoskeletal: Denies back pain Integumentary/Breasts: Skin/Breast: Denies rash Neurologic: Denies vertigo, Denies dizziness and Denies headache(s) [facility] Past Medical History Medical History Alcohol abuse Necrotizing pancreatitis Benign tumor of breast Alcohol abuse Asthma Anxiety Surgical History No history of previous surgery Social History Social History Household Members: Significant Other and Children Housing: House Do you presently have visiting nurse or other home services: No Alcohol intake: former Patient Tobacco Use Status: Never used Tobacco Smoked in Last 30 Days: No Use of substances other than those prescribed or required for medical reasons: No Substance Use Type: Marijuana Advance Directives: No Advance Directives Information Provided: No Do you have a plan to hurt others: No Plan Patient : No service: No Physical Exam ED Vital Signs: Vital Signs - 24 hr 08/03/24 21:18 08/04/24 00:00 08/04/24 02:28 Temperature 98.7 F 98.5 F 98.5 F Pulse Rate 83 74 78 Respiratory Rate 14 16 18 Blood Pressure 113/71 99/58 L 126/78 Pulse Oximetry 96 98 97 Oxygen Delivery Method Room Air Room Air Room Air BMI result Body Mass Index 22.3 Const General: healthy appearing, comfortable, no acute distress, alert and awake Nutritional Appearance: well nourished Orientation/consciousness: patient oriented x3 HENMT Head: Yes normocephalic and Yes atraumatic Eyes Eyelids: Yes eyelids normal Conjunctivae: conjunctivae normal Sclerae: sclerae normal Corneas: corneas normal Pupils: Equal, round and reactive pupils present EOM: EOMs intact bilaterally Neck Neck: Yes full ROM Resp Effort & Inspection: normal respiratory effort, able to speak in complete sentences and not labored Cardio Rate: regular rate Rhythm: regular rhythm GI Inspection: No distended Palpation (GI): Soft to palpation, not firm, Tenderness to palpation present (GI) in the epigastrum, no guarding and not rigid Skin General skin exam: elasticity normal Neuro General: patient oriented x3 Cranial nerves: Yes Equal, round and reactive pupils present and Yes Bilaterally intact EOM present Cognition (Neuro): normal cognition Extrem Other: Moving all extremities well without any obvious deformities Course Reevaluation(s) Reevaluation #1: The patient was continuing to complain of abdominal pain after receiving morphine. She previously reported that she did not like the hydromorphone that she was treated with on her last visit. I attempted Haldol 2.5mg IV, as the patient's last er tox screen was positive for cannabis hyperemesis syndrome. She reported that the medication made her warm and tingly all over. She had no evidence of urticaria or edema. I ordered benadryl for extrapyramidal symptoms and ordered morphine at her request for continued pain Time: 01:15 Reevaluation #2: patient is still has some discomfort, but her pain is well controlled. Discussed discharge the patient and she was comfortable with discharge. She will call her GI doctor tomorrow morning to see if her appointment can be expedited. She reports that she has analgesia at home. Time: 01:57 Medications Administered Discontinued Medications Generic Name Dose Route Start Last Admin Trade Name Nahun PRN Reason Stop Dose Admin Diphenhydramine HCl 12.5 mg 08/04/24 01:11 08/04/24 01:30 Diphenhydramine Hcl 50 Mg/Ml Vial IVPUSH 08/04/24 01:12 12.5 mg ONCE ONE Administration Haloperidol Lactate 2.5 mg 08/04/24 00:41 08/04/24 00:49 Haloperidol Lactate 5 Mg/Ml Vial IVPUSH 08/04/24 00:42 2.5 mg STAT STA Administration Sodium Chloride 1,000 mls @ 999 mls/hr 08/03/24 22:00 08/03/24 23:58 Ns IV 08/03/24 23:00 Infused .Q1H1M TRUONG Infusion Morphine Sulfate 4 mg 08/03/24 21:57 08/03/24 22:19 Morphine Sulfate 4 Mg/Ml Cartridge IVPUSH 08/03/24 21:58 4 mg ONCE ONE Administration Protocol Morphine Sulfate 4 mg 08/04/24 01:11 08/04/24 01:30 Morphine Sulfate 4 Mg/Ml Cartridge IVPUSH 08/04/24 01:12 4 mg ONCE ONE Administration Protocol Ondansetron HCl 4 mg 08/03/24 21:57 08/03/24 22:19 Ondansetron Hcl 4 Mg/2 Ml Vial IVPUSH 08/03/24 21:58 4 mg ONCE ONE Administration Medical Decision Making Medical Decision Making [facility] Narrative: RME: 29-year-old female history of necrotizing pancreatitis presents to ED for epigastric pain radiating to the back. Patient states she were to. Pancreas exacerbation. Labs ordered 29-year-old female with a history of chronic pancreatitis presents for evaluation of upper abdominal pain with nausea and vomiting. She was just discharged 3 days ago for similar complaints. She has no leukocytosis or left shift. She does have a chronic microcytic anemia which is consistent with her baseline. chemistries are significant for a slightly elevated chloride to 109 which could be related to some degree of vomiting and dehydration, carbon dioxide level of 20 which is also likely due to vomiting Or tachypnea due to pain is normal at 0.4 but she has a chronic transaminitis which is consistent with a baseline. Lipase is within normal limits. The patient is not . vital signs are stable, she appears well. I did not see any indication for repeating emergent imaging at this time. We will try to control the patient's pain Differential Diagnosis Differential Diagnoses: The differential diagnosis associated with the presentation includes chronic pancreatitis Gastritis Alcoholic gastritis Peptic ulcer disease Cholecystitis Cholelithiasis Admission/Observation Consideration of admission/observation: Escalation of care including admission/observation considered Lab Data [facility] Lab Attestation statement: I reviewed the patient's lab results. as above 08/03/24 19:35 08/03/24 19:35 Labs: Lab Results 08/03/24 08/03/24 Range/Units 19:35 21:40 WBC 5.6 (4.8-10.8) X10*3/uL RBC 4.79 (4.20-5.50) X10*6/uL Hgb 11.9 L (12.0-16.0) g/dl Hct 36.5 L (37.0-47.0) % MCV 76.2 L (80.0-98.0) fL MCH 24.8 L (27.0-33.0) pg MCHC 32.6 (31.0-35.0) g/dl RDW 15.4 (11.0-16.0) % Plt Count 243 (160-400) X10*3/uL MPV 10.8 (9.4-12.3) fL Immature Gran % (Auto) 0.2 (0.0-0.4) % Neut % (Auto) 63.1 (45-73) % Lymph % (Auto) 28.9 (20-40) % Edmunds % (Auto) 6.6 (2-11) % Eos % (Auto) 0.7 (0-4) % Baso % (Auto) 0.5 (0-2) % Lymph # (Auto) 1.6 (1.2-4.9) X10*3/uL Edmunds # (Auto) 0.4 (0.1-1.2) X10*3/uL Eos # (Auto) 0.0 (0.0-0.4) X10*3/uL Baso # (Auto) 0.0 (0.0-0.2) X10*3/uL Abs Immat Gran (auto) 0.01 (0.00-0.03) X10*3/uL Absolute Neuts (auto) 3.5 (2.0-8.3) x10*3/uL Absolute Nucleated RBC 0.000 (0.0-0.012) X10*3/uL Nucleated RBC % (auto) 0.0 (0.0-0.2) /100WBC Sodium 138 (135-145) mmol/L Potassium 3.7 (3.3-5.1) mmol/L Chloride 109 H (96-108) mmol/L Carbon Dioxide 20 L (22-29) mmol/L Anion Gap 13 (12-20) BUN 5 L (9-16) mg/dL Creatinine 0.70 (0.5-1.4) mg/dL Estim Creat Clear Calc 102.3 Estimated GFR > 60 Random Glucose 122 H (60-115) mg/dL Calcium 9.0 (8.4-10.2) mg/dL Total Bilirubin 0.4 (0.0-1.0) mg/dL AST 84 H (5-31) U/L ALT 190 H (0-31) U/L Alkaline Phosphatase 254 H (39-117) U/L Total Protein 7.5 (6.5-8.0) g/dL Albumin 4.3 (3.5-5.0) g/dL Lipase 4 L (8-78) U/L Beta HCG, Quant < 2 mIU/mL Urine Color Yellow Urine Appearance Clear Urine pH 7.0 (5.0-9.0) Ur Specific [place] 1.010 (1.005-1.025) Urine Protein Negative (Neg-Trace) mg/dL Urine Glucose (UA) Negative (Negative) mg/dL Urine Ketones Negative (Negative) mg/dL Urine Blood Negative (Negative) Urine Nitrite Negative (Negative) Ur Leukocyte Esterase Negative (Negative) Urine Test NEGATIVE (NEGATIVE) Ethyl Alcohol < 10 mg/dL Discharge Plan Discharge Clinical Impression: Chronic pancreatitis Patient Disposition: Home, Self-Care Instructions: Pancreatitis (ED) Additional Instructions: Your workup in the ER today was reassuring. Your liver enzymes were slightly elevated but your lipase she was a marker of acute pancreatitis was not elevated follow-up with your GI doctor, call tomorrow morning to schedule an appointment Prescriptions: No Action hydroxyzine pamoate 50 mg capsule 50 mg PO Q6H PRN (Reason: anxiety) pregabalin 100 mg capsule 100 mg PO BID Creon 24,000-76,000 -120,000 unit Capsule,Delayed Release(Dr/Ec) 1 cap PO TIDWM Qty: 270 0RF morphine 15 mg tablet 22.5 mg PO Q12H Qty: 90 0RF ondansetron 4 mg tablet,disintegrating 4 mg PO Q8H PRN (Reason: nausea and vomiting) Qty: 7 0RF meloxicam 15 mg tablet 15 mg DAILY sertraline 50 mg tablet 50 mg PO DAILY mirtazapine 7.5 mg tablet 7.5 mg PO DAILY pantoprazole 40 mg tablet,delayed release (DR/EC) 40 mg PO DAILY@0630 Interventions: ED Discharge Assessment Last Done: 08/04/24 02:28 Discharge Date/Time: 08/04/24 02:29 Print Language: Bruneian
[2024-08-03 19:39] LABS: MANUAL DIFF FLAG NO
[2024-08-03 19:40] LABS: Basophils Percent Auto 0.5 % (0-2); Eosinophils Percent Auto 0.7 % (0-4); Hematocrit 36.5 % (37.0-47.0); Hemoglobin 11.9 g/dl (12.0-16.0); Imm Gran Abs Auto 0.01 X10*3/uL (0.00-0.03); Imm Gran Pct Auto 0.2 % (0.0-0.4); Lymphocytes Absolute Auto 1.6 X10*3/uL (1.2-4.9); Lymphocytes Percent Auto 28.9 % (20-40); Mean Corpuscular HGB Conc 32.6 g/dl (31.0-35.0); Mean Corpuscular Hemoglobin 24.8 pg (27.0-33.0); Mean Corpuscular Volume 76.2 fL (80.0-98.0); Mean Platelet Volume 10.8 fL (9.4-12.3); Monocytes Absolute Auto 0.4 X10*3/uL (0.1-1.2); Monocytes Percent Auto 6.6 % (2-11); Neutrophils Absolute Auto 3.5 x10*3/uL (2.0-8.3); Neutrophils Percent Auto 63.1 % (45-73); Platelet Count 243 X10*3/uL (160-400); Red Blood Count 4.79 X10*6/uL (4.20-5.50); Red Cell Distribution Width 15.4 % (11.0-16.0); White Blood Count 5.6 X10*3/uL (4.8-10.8)
[2024-08-03 20:00] LABS: Alanine Aminotransferase 190 U/L (0-31); Albumin Level 4.3 g/dL (3.5-5.0); Alkaline Phosphatase 254 U/L (39-117); Anion Gap 13 (12-20); Aspartate Amino Transferase 84 U/L (5-31); Bilirubin Total 0.4 mg/dL (0.0-1.0); Blood Urea Nitrogen 5 mg/dL (9-16); Carbon Dioxide 20 mmol/L (22-29); Chloride 109 mmol/L (96-108); Creatinine Clr Calc Pharmacy 102.3; Estimated Glomerular Filt Rate > 60; Glucose Random 122 mg/dL (60-115); HCG Quantitative < 2 mIU/mL; Lipase 4 U/L (8-78); Potassium 3.7 mmol/L (3.3-5.1); Sodium 138 mmol/L (135-145); Total Protein 7.5 g/dL (6.5-8.0)
[2024-08-03 21:18] VITALS: BP 113/71; PULSE 83; RESP 14; TEMP 37.1; O2SAT 96
[2024-08-03 21:54] LABS: Appearance Urine Clear; Color Urine Yellow; Glucose Urine UA Negative (Negative); Leukocyte Esterase Urine Negative (Negative); Nitrite Urine Negative (Negative); Urine Blood Negative (Negative); Urine Ketones Negative (Negative); Urine Protein Negative (Neg-Trace)
[2024-08-03 21:58] LABS: UPreg QC Valid YES; Urine Pregnancy NEGATIVE (NEGATIVE)
[2024-08-03] MEDS: ondansetron HCL 4 MG/2 ML VIAL IVPUSH (22:19)
[2024-08-03] MEDS: Morphine Sulfate 4 MG/ML CARTRIDGE IVPUSH (22:19)
[2024-08-03] MEDS: 0.9 % Sodium Chloride 1,000 ML 999 ML IV (22:19)
[2024-08-04] VITALS: BP 99/58; PULSE 74; RESP 16; TEMP 36.9; O2SAT 98
[2024-08-04] MEDS: Haloperidol Lactate 5 MG/ML VIAL 2.5 MG IVPUSH (00:49)
[2024-08-04] MEDS: Morphine Sulfate 4 MG/ML CARTRIDGE IVPUSH (01:30)
[2024-08-04] MEDS: diphenhydrAMINE HCL 50 MG/ML VIAL 12.5 MG IVPUSH (01:30)
[2024-08-04 01:53] LABS: Ethanol < 10 mg/dL
[2024-08-04 02:28] VITALS: BP 126/78; PULSE 78; RESP 18; TEMP 36.9; O2SAT 97
== END 2024-08-04 02:29 | disposition home or self-care (01) ==
PROVIDERS: Physician Assistant; Emergency Provider Emergency Medicine; PCP Family Medicine
DX: K86.1 Other chronic pancreatitis (principal); R11.2 Nausea with vomiting, unspecified; Z51.81 Encounter for therapeutic drug level monitoring; Z79.899 Other long term (current) drug therapy
CPT/HCPCS: 36415; 80053; 80307; 81003; 81025; 83690; 84702; 85025; 96361; 96374; 96375; 96376; 99284; 99285; J1200; J1630; J2270; J2405

== ENCOUNTER 2024-08-12 22:38 | Emergency (ER) | payer MEDICAID, SELFPAY ==
--- NOTE | ~2024-08-12 | CT_ITS ---
CLINICAL HISTORY: reocurrent pancreatitis CT abdomen and pelvis with contrast Comparison: CT - CT ABDOMEN PELVIS W IV CON - 08/13/24 01:29 EDT Findings: No consolidation or effusion. Pancreatic duct is distended up to 4 mm at the pancreatic tail. There is likely a distal pancreatic body ductal stricture. The pancreatic duct is not distended at the pancreatic head and body. No peripancreatic inflammatory changes. Hypodense liver. Gallbladder absent. Abdominal solid organs are otherwise unremarkable. No urolithiasis. No bowel obstruction, pneumoperitoneum, or pneumatosis. Mesenteric vessels patent. The appendix is not clearly identified. Uterus and ovaries unremarkable. No ascites or hernia. The bones are intact. IMPRESSION: 1. There is likely a distal pancreatic body stricture with dilatation of the pancreatic duct at the pancreatic tail. No inflammatory changes or fluid collections are seen. 2. Fatty liver. This document has been electronically signed by: Christian Villafana MD on 08/13/2024 02:43:46
[2024-08-12 23:01] LABS: Basophils Percent Auto 0.6 % (0-2); Eosinophils Absolute Auto 0.1 X10*3/uL (0.0-0.4); Eosinophils Percent Auto 1.3 % (0-4); Hematocrit 39.1 % (37.0-47.0); Hemoglobin 12.5 g/dl (12.0-16.0); Imm Gran Abs Auto 0.01 X10*3/uL (0.00-0.03); Imm Gran Pct Auto 0.1 % (0.0-0.4); Lymphocytes Absolute Auto 2.1 X10*3/uL (1.2-4.9); Lymphocytes Percent Auto 31.1 % (20-40); MANUAL DIFF FLAG NO; Mean Corpuscular Hemoglobin 24.2 pg (27.0-33.0); Mean Corpuscular Volume 75.8 fL (80.0-98.0); Mean Platelet Volume 10.6 fL (9.4-12.3); Monocytes Absolute Auto 0.4 X10*3/uL (0.1-1.2); Monocytes Percent Auto 5.2 % (2-11); Neutrophils Absolute Auto 4.3 x10*3/uL (2.0-8.3); Neutrophils Percent Auto 61.7 % (45-73); Platelet Count 251 X10*3/uL (160-400); Red Blood Count 5.16 X10*6/uL (4.20-5.50); Red Cell Distribution Width 15.5 % (11.0-16.0); White Blood Count 6.9 X10*3/uL (4.8-10.8)
[2024-08-12 23:10] VITALS: BP 104/64; BP 106/64; PULSE 76; PULSE 99; RESP 16; TEMP 36.3; O2SAT 98; O2SAT 99; BMI 21.8
[2024-08-12 23:15] LABS: Appearance Urine Clear; Color Urine Yellow; Glucose Urine UA Negative (Negative); Leukocyte Esterase Urine Negative (Negative); Nitrite Urine Negative (Negative); Specific Gravity - Urine 1.025 (1.005-1.025); Urine Blood Negative (Negative); Urine Ketones Negative (Negative); Urine Protein Trace mg/dL (Neg-Trace)
[2024-08-12 23:18] LABS: Bacteria Urine None Seen (None Seen); Hyaline Casts Urine 0-2 /LPF (0-2); RBC Urine 0-2 /HPF (0-2); WBC Urine 0-5 /HPF (0-5)
[2024-08-12 23:19] LABS: Alanine Aminotransferase 76 U/L (0-31); Albumin Level 4.6 g/dL (3.5-5.0); Alkaline Phosphatase 193 U/L (39-117); Anion Gap 12 (12-20); Aspartate Amino Transferase 49 U/L (5-31); Bilirubin Direct 0.1 mg/dL (0.0-0.5); Bilirubin Total 0.3 mg/dL (0.0-1.0); Blood Urea Nitrogen 7 mg/dL (9-16); Calcium 9.2 mg/dL (8.4-10.2); Carbon Dioxide 21 mmol/L (22-29); Chloride 112 mmol/L (96-108); Creatinine Clr Calc Pharmacy 105.4; Estimated Glomerular Filt Rate > 60; Glucose Random 132 mg/dL (60-115); Potassium 3.6 mmol/L (3.3-5.1); Sodium 141 mmol/L (135-145); Total Protein 7.7 g/dL (6.5-8.0)
[2024-08-12 23:59] VITALS: BP 103/70; PULSE 76; RESP 16; TEMP 36.8; O2SAT 100
--- NOTE | 2024-08-13 | MHC.EDTECH ---
This pct assumed care of Patient ,vitals taken ,Patient resting quietly in bed .
[2024-08-13 01:07] LABS: Lipase 8 U/L (8-78)
--- NOTE | 2024-08-13 01:20 | PC.NURSE ---
Provider into discuss plan of care.
--- NOTE | 2024-08-13 01:21 | ED_ITS ---
HPI - General Adult General Chief complaint: General Medical Stated complaint: chronic pancreatitis flare up Time Seen by Provider: 08/13/24 00:42 Source: patient Mode of arrival: ambulatory Limitations: no limitations History of Present Illness ED Provider: Dr. Nadia Abad HPI narrative: patient comes to the emergency room complaining of acute on chronic abdominal pain. Patient known to have chronic pancreatitis. Patient states that she did not take her p.o. medication today because she did not Eat anything. patient reports nausea with no vomiting. Related Data Home Medications ?Medication ?Instructions ?Recorded ?Confirmed hydroxyzine pamoate 50 mg capsule 50 mg PO Q6H PRN anxiety 07/05/24 07/31/24 pregabalin 100 mg capsule 100 mg PO BID 07/05/24 07/31/24 meloxicam 15 mg tablet 15 mg DAILY 07/31/24 07/31/24 mirtazapine 7.5 mg tablet 7.5 mg PO DAILY 07/31/24 07/31/24 pantoprazole 40 mg tablet,delayed 40 mg PO DAILY@0630 Heartburn 07/31/24 07/31/24 release sertraline 50 mg tablet 50 mg PO DAILY 07/31/24 07/31/24 Previous Rx's ?Medication ?Instructions ?Recorded ondansetron 4 mg disintegrating 4 mg PO Q8H PRN nausea and 06/06/24 tablet vomiting #7 tabs gwcdqj-fagnmbzi-nqkchos 1 cap PO TIDWM #270 caps 07/18/24 24,000-76,000-120,000 unit capsule,delayed rel (Creon) morphine 15 mg immediate release 22.5 mg (1.5 x 15 mg) PO Q12H #90 07/18/24 tablet tabs Allergies Allergy/AdvReac Type Severity Reaction Status Date / Time No Known Allergies Allergy Verified 08/12/24 23:14 Review of Systems 2 Review of Systems: Constitutional : No Weight loss, No Fever, No Chills, No Night Sweats, No Fatigue, No Malaise ENT/Mouth : No Hearing loss, No Ear Pain, No Nasal Congestion, No Sinus Pain, No Hoarseness, No sore throat, No Rhinorrhea, No Swallowing Difficulty Eyes: No Eye Pain, No Swelling, No Redness, No Foreign Body, No Discharge, No Vision Changes Cardiovascular : No Chest Pain, No SOB, No Dyspnea on Exertion, No Orthopnea, No Edema, No Palpitations Respiratory : No Cough, No Sputum, No Wheezing, No Smoke Exposure, No Dyspnea Gastrointestinal : complaining of Nausea, No Vomiting, No Diarrhea, No Constipation, complaining of chronic abdominal pain Genitourinary : no irregular bleeding, No Dysuria, No Urinary Frequency, No Hematuria, No Urinary Incontinence, No Urgency, No Flank Pain, No Urinary Flow Changes, No Hesitancy Musculoskeletal : No joint pain, No Myalgias, No Joint Swelling Skin : No Skin Lesions, No rash Neuro : No Weakness, No Numbness, No Paresthesias, No Loss of Consciousness, No Dizziness, No Headache Psych : No Anxiety/Panic, No Depression, No SI/HI/AH/VH, No Social Issues, Heme/Lymph: No Bruising, No Bleeding,No Lymphadenopathy Endocrine : No Polyuria, No Polydipsia, No Temperature Intolerance [facility] Past Medical History Medical History Alcohol abuse Necrotizing pancreatitis Benign tumor of breast Alcohol abuse Asthma Anxiety Surgical History No history of previous surgery Social History Social History Household Members: Significant Other and Children Housing: House Do you presently have visiting nurse or other home services: No Alcohol intake: former Patient Tobacco Use Status: Never used Tobacco Smoked in Last 30 Days: No Use of substances other than those prescribed or required for medical reasons: No Substance Use Type: Marijuana Advance Directives: No Do you have a plan to hurt others: No Plan service: No Physical Exam ED Vital Signs: Vital Signs - 24 hr 08/12/24 23:10 08/12/24 23:59 08/13/24 01:31 Temperature 97.4 F 98.3 F 98.1 F Pulse Rate 76 76 70 Respiratory Rate 16 16 16 Blood Pressure 106/64 103/70 120/78 Pulse Oximetry 98 100 97 Oxygen Delivery Method Room Air Room Air Room Air BMI result Body Mass Index 21.8 Const Other: Appearance: Alert. Oriented X3. No acute distress. patient looks comfortable Eyes: Pupils equal, round and reactive to light. ENT: Pharynx normal. Neck: Normal inspection. Neck supple. No lymph nodes noted. No crepitus CVS: Normal heart rate and rhythm. Pulses normal. Normal S1 and S2 Respiratory: No respiratory distress. Breath sounds normal. No Wheezing. No rales Abdomen: Soft, states she has tenderness to palpation. No rigidity. No distention. Skin: Skin warm and dry. Normal skin color. Normal skin turgor. Extremities: No lower extremity edema. No Lacerations. No Rash Neuro: Oriented X 3. No motor deficit. No sensory deficit. Moving all extremities. No slurred speech. CN 2 through 12 grossly intact Psych: calm, cooperative, normal affect Course Course Course Narrative: Patient receiving IV ketorolac. Medications Administered Discontinued Medications Generic Name Dose Route Start Last Admin Trade Name Catrachoq PRN Reason Stop Dose Admin Iohexol 85 ml 08/13/24 01:34 08/13/24 01:35 Iohexol 350 Mg/Ml 100 Ml Infus..Btl IV 08/13/24 01:35 85 ml ONCE ONE Administration Ketorolac Tromethamine 15 mg 08/13/24 01:20 08/13/24 01:28 Ketorolac Tromethamine 15 Mg/Ml Vial IVPUSH 08/13/24 01:21 15 mg ONCE ONE Administration Medical Decision Making Medical Decision Making [facility] Narrative: My interpretation of labs: Normal hematology, white blood cell count 6.9, hemoglobin 12.5, hematocrit 39.1, platelets 251. chemistry within normal limits. Chemistry: No significant abnormality, hCG negative, LFTs normal. I reviewed patient's CAT scan of previous time that she was here in the emergency room, patient did not have any signs of pancreatitis in the lipase was normal. Day, patient comes complaining again abdominal pain. However, the lipase once again is normal. We will do [address] scan to rule out any pancreatic issues since she does have history of necrotizing pancreatitis. CT scan does not show any acute abnormalities. Patient was given 1 dose of IV ketorolac. Patient states that she has not tried taking her p.o. morphine because she has not eaten anything. I reviewed patient's medical record. Patient complaining chronically abdominal pain. Patient has a bale piler. No acute findings today. Patient requesting IV morphine. I discussed with the patient that we will start with IV ketorolac. patient disappointed that she is not getting morphine IV Differential Diagnosis Differential Diagnoses: The differential diagnosis associated with the presentation includes ( chronic pancreatitis, acute pancreatitis, GERD, medication seeking) Lab Data MDM Lab Attestation statement: I reviewed the patient's lab results. 08/12/24 22:56 08/12/24 22:56 Labs: Lab Results 08/12/24 08/12/24 Range/Units 22:56 23:09 WBC 6.9 (4.8-10.8) X10*3/uL RBC 5.16 (4.20-5.50) X10*6/uL Hgb 12.5 (12.0-16.0) g/dl Hct 39.1 (37.0-47.0) % MCV 75.8 L (80.0-98.0) fL MCH 24.2 L (27.0-33.0) pg MCHC 32.0 (31.0-35.0) g/dl RDW 15.5 (11.0-16.0) % Plt Count 251 (160-400) X10*3/uL MPV 10.6 (9.4-12.3) fL Immature Gran % (Auto) 0.1 (0.0-0.4) % Neut % (Auto) 61.7 (45-73) % Lymph % (Auto) 31.1 (20-40) % Holt % (Auto) 5.2 (2-11) % Eos % (Auto) 1.3 (0-4) % Baso % (Auto) 0.6 (0-2) % Lymph # (Auto) 2.1 (1.2-4.9) X10*3/uL Holt # (Auto) 0.4 (0.1-1.2) X10*3/uL Eos # (Auto) 0.1 (0.0-0.4) X10*3/uL Baso # (Auto) 0.0 (0.0-0.2) X10*3/uL Abs Immat Gran (auto) 0.01 (0.00-0.03) X10*3/uL Absolute Neuts (auto) 4.3 (2.0-8.3) x10*3/uL Absolute Nucleated RBC 0.000 (0.0-0.012) X10*3/uL Nucleated RBC % (auto) 0.0 (0.0-0.2) /100WBC Sodium 141 (135-145) mmol/L Potassium 3.6 (3.3-5.1) mmol/L Chloride 112 H (96-108) mmol/L Carbon Dioxide 21 L (22-29) mmol/L Anion Gap 12 (12-20) BUN 7 L (9-16) mg/dL Creatinine 0.68 (0.5-1.4) mg/dL Estim Creat Clear Calc 105.4 Estimated GFR > 60 Random Glucose 132 H (60-115) mg/dL Calcium 9.2 (8.4-10.2) mg/dL Total Bilirubin 0.3 (0.0-1.0) mg/dL Direct Bilirubin 0.1 (0.0-0.5) mg/dL AST 49 H (5-31) U/L ALT 76 H (0-31) U/L Alkaline Phosphatase 193 H (39-117) U/L Total Protein 7.7 (6.5-8.0) g/dL Albumin 4.6 (3.5-5.0) g/dL Lipase 8 (8-78) U/L Beta HCG, Quant < 2 mIU/mL Urine Color Yellow Urine Appearance Clear Urine pH 7.0 (5.0-9.0) Ur Specific [place] 1.025 (1.005-1.025) Urine Protein Trace (Neg-Trace) mg/dL Urine Glucose (UA) Negative (Negative) mg/dL Urine Ketones Negative (Negative) mg/dL Urine Blood Negative (Negative) Urine Nitrite Negative (Negative) Ur Leukocyte Esterase Negative (Negative) Urine RBC 0-2 (0-2) /HPF Urine WBC 0-5 (0-5) /HPF Ur Squamous Epith Cells 3-5 (0-2) /HPF Urine Bacteria None Seen (None Seen) Hyaline Casts 0-2 (0-2) /LPF Ethyl Alcohol < 10 mg/dL Independent Interpretation I performed an independent interpretation of an: CT Scan Radiology Impression Discussion of test interpretation with radiology: I have reviewed the radiologist's reading. Radiologist Impression: Pancreatic duct is distended up to 4 mm at the pancreatic tail. There is likely a distal pancreatic body ductal stricture. The pancreatic duct is not distended at the pancreatic head and body. No peripancreatic inflammatory changes. Hypodense liver. Gallbladder absent. Abdominal solid organs are otherwise unremarkable. No urolithiasis. No bowel obstruction, pneumoperitoneum, or pneumatosis. Mesenteric vessels patent. The appendix is not clearly identified. Uterus and ovaries unremarkable. No ascites or hernia. The bones are intact. IMPRESSION: 1. There is likely a distal pancreatic body stricture with dilatation of the pancreatic duct at the pancreatic tail. No inflammatory changes or fluid collections are seen. 2. Fatty liver. Discharge Plan Discharge Clinical Impression: Abdominal pain Patient Disposition: Home, Self-Care Instructions: Abdominal Pain (ED) Additional Instructions: Please follow-up with your primary care physician tomorrow. If you have any worsening or new symptoms, please return to the emergency room or call 911 Prescriptions: No Action hydroxyzine pamoate 50 mg capsule 50 mg PO Q6H PRN (Reason: anxiety) pregabalin 100 mg capsule 100 mg PO BID Creon 24,000-76,000 -120,000 unit Capsule,Delayed Release(Dr/Ec) 1 cap PO TIDWM Qty: 270 0RF morphine 15 mg tablet 22.5 mg PO Q12H Qty: 90 0RF ondansetron 4 mg tablet,disintegrating 4 mg PO Q8H PRN (Reason: nausea and vomiting) Qty: 7 0RF meloxicam 15 mg tablet 15 mg DAILY sertraline 50 mg tablet 50 mg PO DAILY mirtazapine 7.5 mg tablet 7.5 mg PO DAILY pantoprazole 40 mg tablet,delayed release (DR/EC) 40 mg PO DAILY@0630 Print Language: Hebrew
[2024-08-13 01:22] LABS: HCG Quantitative < 2 mIU/mL
[2024-08-13] MEDS: Ketorolac Tromethamine 15 MG/ML VIAL IVPUSH (01:28)
--- NOTE | 2024-08-13 01:29 | PC.NURSE ---
medicated per mar.
[2024-08-13 01:31] VITALS: BP 120/78; PULSE 70; RESP 16; TEMP 36.7; O2SAT 97
[2024-08-13 01:33] LABS: Ethanol < 10 mg/dL
[2024-08-13] MEDS: iohexoL 350 MG/ML 100 ML INFUS..BTL 85 ML IV (01:35)
--- NOTE | 2024-08-13 01:43 | PC.NURSE ---
pt back from CT scan, awaiting results
[2024-08-13 03:25] VITALS: BP 120/78; PULSE 70; RESP 16; TEMP 36.7; O2SAT 97
== END 2024-08-13 03:26 | disposition home or self-care (01) ==
PROVIDERS: Physician Assistant Medical; Emergency Provider Emergency Medicine; PCP Family Medicine
DX: K86.1 Other chronic pancreatitis (principal); R11.0 Nausea; R10.2 Pelvic and perineal pain; K76.0 Fatty (change of) liver, not elsewhere classified; Z79.899 Other long term (current) drug therapy; Z51.81 Encounter for therapeutic drug level monitoring
CPT/HCPCS: 36415; 74177; 80053; 80307; 81001; 82248; 83690; 84702; 85025; 96374; 99284; J1885; Q9967

== ENCOUNTER → 2024-08-13 00:44 | Outpatient (BNV) | payer MEDICAID, SELFPAY | PROVIDERS: Emergency Provider Emergency Medicine; PCP Family Medicine; Visit Provider Radiology Diagnostic Radiology | DX: K76.0 Fatty (change of) liver, not elsewhere classified (principal) | CPT/HCPCS: 74177 ==

== ENCOUNTER 2024-09-26 14:25 | Outpatient (REF) | payer MEDICAID, SELFPAY ==
--- OUTSIDE RECORDS SUMMARY | 2024-09-26 15:05 | XMS_ITS | Encounter Summary ---
Author Organization [employer] Address [address] [facility] 7t [place] [address] Care Team Providers Care Assemblies And Installations Inspector Name Role Phone Ibeth Lassiter MD Primary Care Provider [phone] Reason for Referral * Imaging (Routine) - Closed Specialty Diagnoses / Procedures Referred By Contfrancy t Referred To Contact Radiology Diagnoses Mastodynia of left breast Procedures BI Mammogram Diagnostic Bilateral Bailee Lewis MD [address] [place] [address] Phone: tel: fax: [address] Phone: tel: fax: Referral ID Status Reason Start Date Expiration Date Visits Re quested Visits Authorized [id number] Closed 12/22/2022 12/22/2023 1 1 Encounter Details Date Type Department Care Team (Late st Contact Info) Description 12/22/2022 Orders Only [facility] MEDICINE [address] [place], [place] [phone] Bailee Lewis MD [address] [place], [place] [phone] Mastodynia of left breast (Primary Dx) Social [...] Upcoming Encounters Date Type Department Care Team ([facility] st Contact Info) Description 10/13/2024 11:00 AM EDT Office Visit [facility] CHC MED & PEDS [address] [place] [address] Ibeth Lassiter MD [address] [place] [address] Scheduled Orders Name Type Priority Associated Diagnoses [...] EDT Narrative 01/16/2023 3:34 PM EDT ? [facility] ? [address] ?[place] [address] ? Ultrasound Report ? Signed ? Patient: Aguilar,Deepti ?MR#: [id number] ?? 5 ? : 1995 ?Acct:[id number] ? Age/Sex: 27 / F ?ADM Date: 08/15/23 ? Loc: HO.MAMMO ? Attending Dr: Yuly Guzman CNM ? Ordering Physician: YULY GUZMAN CNM ?? Date of Service: 01/16/23 ?? Procedure(s): US breast LT limited mamm only ?? Accession Number(s): [id number] ? cc: YULY GUZMAN CNM ? EXAMINATION: [...] 1531 ? DD/ 1500 ? TD/TT: ? Intelligence Operations: ? Procedure Note Edmund, Image - 01/16/2023 [facility] [address] [place] [address] Ultrasound Report Signed Patient: Tori Aguilar#: [id number] 5 : 1995Acct:[id number] Age/Sex: FADM Date: 01/16/23 Loc: SOL Attending Dr: Yuly Guzman CNM Ordering Physician: YULY GUZMAN CNM Date of Service: 01/16/23 Procedure(s): US breast LT limited mamm only Accession Number(s): [id number] cc: YULY GUZMAN CNM EXAMINATION: US DIAGNOSTIC [...] in OV> 01/16/23 1531 DD/ 1500 TD/TT: Intelligence Operations: us Yuly Guzman CNM IMG US PROCEDURES Final R esult documented in this encounter Visit Diagnoses Diagnosis Mastodynia of left breast- Primary documented in this encounter Additional Health Concerns Assessment Noted Time PHQ-9 Depression Total Score: 8 06/29/19 23 2:00 PM EST documented as of this encounter Care Teams Assemblies And Installations Inspector Relationship Specialty Start Date End Date Ibeth Lassiter MD [address] [place] [address] PCP - General Family Medicine 12/16/21 documented as of this encounter
--- OUTSIDE RECORDS SUMMARY | 2024-09-26 15:05 | XMS_ITS | Encounter Summary ---
Author Organization [employer] Address [address] [facility] 7t [place] [address] Care Team Providers Care Analysis Consultant Name Role Phone Ibeth Lassiter MD Primary Care Provider Reason for Visit * Reason Onset Date Comments Results 03/27/2024 Care Coordination 03/27/2024 C3 initial a ssessment/ enrollment Encounter Details Date Type Department Care Team ([facility] Contact Info) Description 03/27/2024 Telephone [facility] CHC MED & PEDS [address] [place] [address] Ibeth Lassiter MD [address] [place] [address] Results; Care Coordination ([facility] initial assessment/ enrollment) Social History Tobacco [...] was hospitalized about 2 days ago at [facility] for epigastric pain. Pt states she triesto avoid spicy food which triggers the pain. t states she is supposed to wear eyeglasses due to difficulty with her vision but hasn't seen the plant specialist in a very long time. CM will mail a list of plant specialist to pt's address on file and [...] understanding, and able to repeat back to science writer. A follow up call will be placed within 10 days, patient agrees with plan. * Telephone Encounter - Nancy Aguilar RN - 04/02/2024 3:[address] was ordered by outside provider. Upon pt chart review, pt is currently admitted at [facility] for Abd pain after biliary stent placement. Pt to f/u once discharged. * Telephone Encounter - Catie Moreau - 03/27/2024 2:17 PM EDT TC from pt requesting call back regarding Results. Type of results: Ultrasound Date when done: 2 weeks ago Facility: [facility] Contact pt at [phone] documented in this encounter Plan of Treatment Upcoming Encounters Date Type Department Care Team (Late st Contact Info) Description 10/13/2024 11:00 AM EDT Office Visit [facility] MED & PEDS [address] [place] [address] Ibeth Lassiter MD [address] [place] [address] documented as of this encounter Visit Diagnoses Not on filedocumented in this encounter Additional Health Concerns Assessment Noted Time PHQ-9 Depression Total Score: 24 024 3:55 PM EDT documented as of this encounter Care Teams Analysis Consultant Relationship Specialty Start Date End Date Ibeth Lassiter MD [address] [place] [address] PCP - General Family Medicine 12/16/21 documented as of this encounter
--- OUTSIDE RECORDS SUMMARY | 2024-09-26 15:05 | XMS_ITS | Encounter Summary ---
Author Organization [employer] Address [address] [facility] [address] 7[address] [place] [address] Care Team Providers Care Acquisition Marketing Manager Name Role Phone Ibeth Lassiter MD Primary Care Provider [phone] Encounter Details Date Type Department Care Team (Late st Contact Info) Description 09/19/2024 Orders Only [facility] MEDICINE [address] [place], [place] [phone] Yunior Lopez, PharmD [address] [place] [address] Social History Tobacco Use Types Packs/Day Years [...] Description 10/13/2024 11:00 AM EDT Office Visit [facility] MED & PEDS [address] [place] [address] Ibeth Lassiter MD [address] [place] [address] documented as of this encounter Visit Diagnoses Not on filedocumented in this encounter Additional Health Concerns Assessment Noted Time PHQ-9 Depression Total Score: 22 025 10:04 AM EST documented as of this encounter Care Teams Acquisition Marketing Manager Relationship Specialty Start Date End Date Ibeth Lassiter MD [address] [place] [address] PCP - General Family Medicine 12/16/21 documented as of this encounter
--- OUTSIDE RECORDS SUMMARY | 2024-09-26 15:05 | XMS_ITS | Encounter Summary ---
Author Organization [employer] Address [address] [facility] [address] [place] [address] Care Team Providers Care Manager Sharepoint Name Role Phone Ibeth Lassiter MD Primary Care Provider [phone] Reason for Visit * Reason Onset Date Comments Medication Question 09/23/2024 Encounter Details Date Type Department Care Team ([facility] st Contact Info) Description 09/23/2024 Telephone [facility] MEDICINE [address] [place] [address] Ibeth Lassiter MD [address] [place] [address] Medication Question Social History Tobacco Use Types [...] encounter Miscellaneous Notes * Telephone Encounter - Magda Ely RN - 09/26/2024 1:19 PM EDT Tc to [facility] requesting clarification on rx Morphine that was sent to pharmacy from PCP on 09/19/24 and 09/23/24. Pharmacist reports they received a phone call from a nurse fransisco radha that pt is supposed to be on both medications but not signs of telephone call documented in chart. Informed them we'll send a message to PCP to confirm. Meassage forwarded to PCP for review. * Telephone Encounter - Tiffany Brown - 09/23/2024 11:51 AM EDT Tc from Pharmacy requesting clarifications on rx that was sent to pharmacy same medication one rx from PCP and second rx from ER. Med name (morphine) Please return call to [facility] [phone] documented in this encounter Plan of Treatment Upcoming Encounters Date Type Department Care Team (Late st Contact Info) Description 10/13/2024 11:00 AM EDT Office Visit [facility] MED & PEDS [address] [place] [address] Ibeth Lassiter MD [address] [place] [address] documented as of this encounter Visit Diagnoses Not on filedocumented in this encounter Additional Health Concerns Assessment Noted Time PHQ-9 Depression Total Score: 22 025 10:04 AM EST documented as of this encounter Care Teams Manager Sharepoint Relationship Specialty Start Date End Date Ibeth Lassiter MD [address] [place] [address] PCP - General Family Medicine 12/16/21 documented as of this encounter
--- OUTSIDE RECORDS SUMMARY | 2024-09-26 15:05 | XMS_ITS | Encounter Summary ---
Author Organization [employer] Address [address] [facility] [address] [place] [address] Care Team Providers Care Science Teacher Name Role Phone Ibeth Lassiter MD Primary Care Provider [phone] Reason for Visit * Reason Onset Date Comments Appointment Request 05/29/2024 Encounter Details Date Type Department Care Team ([facility] st Contact Info) Description 05/29/2024 Telephone [facility] MEDICINE [address] [place] [address] Ibeth Lassiter MD [address] [place] [address] Appointment Request Social History Tobacco Use Types [...] Upcoming Encounters Date Type Department Care Team ([facility] st Contact Info) Description 10/13/2024 11:00 AM EDT Office Visit [facility] MED & PEDS [address] [place] [address] Ibeth Lassiter MD [address] [place] [address] documented as of this encounter Visit Diagnoses Not on filedocumented in this encounter Additional Health Concerns Assessment Noted Time PHQ-9 Depression Total Score: 24 024 3:55 PM EDT documented as of this encounter Care Teams Science Teacher Relationship Specialty Start Date End Date Ibeth Lassiter MD [address] [place] [address] PCP - General Family Medicine 12/16/21 documented as of this encounter
--- OUTSIDE RECORDS SUMMARY | 2024-09-26 15:05 | XMS_ITS | Encounter Summary ---
Author Organization [employer] Address [address] [facility] 7t [place] [address] Care Team Providers Care Pipeline Systems Operator Name Role Phone Ibeth Lassiter MD Primary Care Provider [phone] Reason for Visit * Reason Onset Date Comments Appointment Request 05/08/2024 Encounter Details Date Type Department Care Team ([facility] st Contact Info) Description 05/08/2024 Telephone [facility] MEDICINE [address] [place] [address] Ibeth Lassiter MD [address] [place] [address] Appointment Request Social History Tobacco Use Types [...] EST Tc from pt requesting to reschedule [employer] visit from 05/15 due to having a different appt at the sametime. Please contact pt at [phone]. documented in this encounter Plan of Treatment Upcoming Encounters Date Type Department Care Team ([facility] st Contact Info) Description 10/13/2024 11:00 AM EDT Office Visit [facility] CHC MED & PEDS [address] [place] [address] Ibeth Lassiter MD [address] [place] [address] documented as of this encounter Visit Diagnoses Not on filedocumented in this encounter Additional Health Concerns Assessment Noted Time PHQ-9 Depression Total Score: 24 024 3:55 PM EDT documented as of this encounter Care Teams Pipeline Systems Operator Relationship Specialty Start Date End Date Ibeth Lassiter MD [address] [place] [address] PCP - General Family Medicine 12/16/21 documented as of this encounter
--- OUTSIDE RECORDS SUMMARY | 2024-09-26 15:05 | XMS_ITS | Encounter Summary ---
Author Organization [employer] Address [address] [facility] [address] 7[address] [place] [address] Care Team Providers Care Nursing Resident Name Role Phone Ibeth Lassiter MD Primary Care Provider Reason for Visit * Reason Comments Med Refill Encounter Details Date Type Department Care Team ([facility] st Contact Info) Description 06/19/2024 Refill [facility] MEDICINE [address] [place] [address] Ibeth Lassiter MD [address] [place], [place] [phone] Alcohol-induced chronic pancreatitis (CMS/HCC) Social History Tobacco [...] 10/13/2024 11:00 AM EDT Office Visit [facility] MED & PEDS [address] [place] [address] Ibeth Lassiter MD [address] [place] [address] documented as of this encounter Visit Diagnoses Diagnosis Alcohol-induced chronic pancreatitis (CMS/HCC) Chronic pancreatitis documented in this encounter Additional Health Concerns Assessment Noted Time PHQ-9 Depression Total Score: 22 025 10:04 AM EST documented as of this encounter Care Teams Nursing Resident Relationship Specialty Start Date End Date Ibeth Lassiter MD [address] [place] [address] PCP - General Family Medicine 12/16/21 documented as of this encounter
--- OUTSIDE RECORDS SUMMARY | 2024-09-26 15:05 | XMS_ITS | Encounter Summary ---
Author Organization [employer] Address [address] [facility] [address] 7[address] [place] [address] Care Team Providers Care Field Operations Farm Manager Name Role Phone Ibeth Lassiter MD Primary Care Provider Encounter Details Date Type Department Care Team ([facility] st Contact Info) Description 09/26/2024 Patient Outreach [facility] CHC MED & PEDS [address] [place] [address] Ibeth Lassiter MD [address] [place] [address] Social History Tobacco Use Types Packs/Day Years [...] as of this encounter Progress Notes * Doreen Johnston RN - 09/26/2024 9:46 AM EDT Pt has an upcoming initial assessment scheduled with CM documented in this encounter Plan of Treatment Upcoming Encounters Date Type Department Care Team (Late st Contact Info) Description 10/13/2024 11:00 AM EDT Office Visit [facility] MED & PEDS [address] [place] [address] Ibeth Lassiter MD [address] [place] [address] documented as of this encounter Visit Diagnoses Not on filedocumented in this encounter Additional Health Concerns Assessment Noted Time PHQ-9 Depression Total Score: 22 025 10:04 AM EST documented as of this encounter Care Teams Field Operations Farm Manager Relationship Specialty Start Date End Date Ibeth Lassiter MD [address] [place] [address] PCP - General Family Medicine 12/16/21 documented as of this encounter
--- OUTSIDE RECORDS SUMMARY | 2024-09-26 15:05 | XMS_ITS | Clinical Summary ---
Author Organization [email or web address] Address [address] [facility] [address] [place] [address] Care Team Providers Care Tank Builder And Erector Name Role Phone Ibeth Lassiter MD Primary Care Provider [phone] Allergies No known active allergies Medications * [...] becomes available. 2 each 024 2024 Active OLANZapine zydis (ZyPREXA ZYDIS) 20 MG disintegrating tablet TAKE 1 TABLET BY MOUTH AT BEDTIME 30 tablet 2 024 Active Additional Information Patient not taking.Reported on 08/04/2024 pregabalin (Lyrica) 100 MG capsule Take 1 capsule by mouth 2 times daily. 025 Active Creon 95941-31138 units capsule Take 1 capsule by mouth with breakfast, with lunch, and with evening meal. Active pantoprazole (ProtoNix) 40 MG EC tablet Take 1 tablet by mouth before breakfast. Do not crush, chew, or split. Active ibuprofen 800 MG tabletIndications :Pain of upper abdomen 800 mg once a day as needed 60 tablet Active hydrOXYzine pamoate (Vistaril) 50 MG capsuleIndication s:Anxiety Take 2 capsules (100 mg) by mouth if needed in the morning and at bedtime for anxiety. 120 capsule 025 2024 Active mirtazapine (Remeron) 7.5 MG tabletIndications :Severe episode of recurrent major depressive disorder, without psychotic features (CMS/HCC) Take 1 tablet (7.5 mg) by mouth at bedtime. 30 tablet 1 025 2024 Active sertraline (Zoloft) 50 MG tabletIndications :Severe episode of recurrent major depressive disorder, without psychotic features (CMS/HCC) Take 1 tablet (50 mg) by mouth in the morning. 30 tablet 1 025 2024 Active lansoprazole (Prevacid) [address] capsule Take 2 capsules by mouth 2 times daily. Do not crush or chew. Active morphine CR (MS Contin) 15 MG 12 hr tabletIndications :Chronic abdominal pain,Alcohol-ej anita chronic pancreatitis (CMS/HCC) Take 1 tablet (15 mg) by mouth 2 times daily for 7 days. Do not crush, chew, or split. 14 tablet 025 2024 Active morphine (MSIR) 15 MG tabletIndications :Alcohol-induced chronic pancreatitis (CMS/HCC) Take 1 tablet (15 mg) by mouth every 8 (eight) hours if needed for severe pain for up to 7 days. 21 tablet 025 2024 Active morphine (MSIR) 15 MG tabletIndications :Alcohol-induced chronic pancreatitis (CMS/HCC) Take 1.5 tablets (22.5 mg) by mouth every 12 (twelve) hours for 28 days. Take 2 tablets BID (decr qty to 100 tablets) Do not start before August 16, 2024. 100 tablet 025 2024 sertraline (Zoloft) 50 MG tabletIndications :Severe episode of recurrent major depressive disorder, without psychotic features (CMS/HCC) Take 1 tablet (50 mg) by mouth in the morning. Take 1/2 tab (25 mg) by mouth in am for 7 days then take 1 tab (50 mg) by mouth in am. 30 tablet 1 025 2024 Discontinued amoxicillin (Amoxil) 500 MG capsule Take 2 capsules by mouth 3 times daily. 025 2024 rifabutin (Mycobutin) 150 MG capsule Take 150 mg by mouth 2 times daily. 025 2024 morphine (MSIR) 15 MG tablet Take 1 tablet by mouth every 6 (six) hours if needed for severe pain. 2024 Discontinued Active Problems Problem Noted Date Diagnosed Date H. pylori infection 09/22/2024 Hematemesis 06/02/2024 Assessment & Plan (06/02/2024 1:46 [...] abuse 09/24/2023 Overview (09/24/2023): ER visit 06/24/2011 Chronic abdominal pain 09/24/2023 Alcohol use, unspecified, in remission [...] Patient to reach out to [facility] team as needed, Comply with medication , Patient to engage in OP therapy , and Patient to reach out to [facility] as needed. Referral for [employer] [employer] will be placed. Acute hemorrhagic pancreatitis 09/18/2023 [...] (11/06/2022 9:25 AM EDT): Will refer to addiction treatment counselor for further evaluation. Reproduced by examination, likely [...] , [facility] as needed, Comply with medication , Patient to engage in OP therapy , and Patient to reach out to [facility] as needed. Referral for [employer] [employer] will be placed. Assessment & Plan (03/30/2023 [...] QID. RX sent. Continue Effexor, spoke with KAYLEIGH about helping with getting a therapist for [...] hemoglobin electrophoresis. Will also schedule appointment with [facility] hspt tutor for AUB. Assessment & Plan (10/23/2022 4:36 [...] therapist who has been assigned by [facility] to her child for bipolar disorder and [...] organization. Date Type Department Care Team Description 09/26/2024 1:30 PM EDT Office Visit [facility] [address] [place] [phone] Amber Marie FNP Arrived 09/26/2024 Travel 09/26/2024 Patient Outreach [facility] [address] [place] [address] Doreen Johnston RN 09/26/2024 Patient Outreach [facility] [address] [place], [place] [phone] Ibeth Lsasiter MD 09/25/[address] [address] Treasure Solorio MA chartprep 09/23/[address] [address] Ibeth Lassiter MD Medication Question; Call request 09/23/[address] [address] Ibeth Lassiter MD Medication Question 09/19/2024 2:00 PM EDT Office Visit [address] [address] Amber Marie FNP Alcohol-induced chronic pancreatitis (CMS/HCC) (Primary Dx); Chronic abdominal pain; H. pylori infection 09/19/2024 Orders Only [address] [address] Yunior Lopez, PharmD 09/19/2024 Patient Outreach [address] [address] Ibeth Lassiter MD 09/19/2024 Patient Outreach [address] [address] Ibeth Lassiter MD 09/19/[address] [address] Ibeth Lassiter MD Med Refill 09/19/2024 Travel 09/18/2024 Patient Outreach [address] [address] Ibeth Lassiter MD Pre-visit Planning (HDF scheduled) 09/17/2024 Patient Outreach [address] [address] Ibeth Lassiter MD Care Coordination ([facility] YIFAN Obrien initial assessment scheduled ) 09/15/[address] [address] Ibeth Lassiter MD Appointment Request 09/15/2024 Telephone [facility] [address] [place] [phone] Luciano Flores MD Medication Question 09/12/2024 Patient Outreach [address] [address] Ibeth Lassiter MD Care Coordination ([facility]/YIFAN Rizvi #2 initial outreach_lvm) 09/10/[address] [address] Zahira Sandoval, Riley 09/10/2024 Patient Outreach [address] [address] Ibeth Lassiter MD 09/10/2024 Patient Outreach [address] [address] Ibeth Lassiter MD 09/10/2024 Patient Outreach [address] [address] Ibeth Lassiter MD 09/09/2024 Telephone [facility] [address] [place] [phone] Ibeth Lassiter MD Chart Prep 09/09/2024 Patient Outreach [address] [address] Ibeth Lassiter MD Care Coordination ([facility]/YIFAN Rizvi initial outreach_lvm ) 09/09/2024 Patient Outreach [address] [address] Ibeth Lassiter MD Care Coordination ([facility]/RUTH Kauffman, Chart review ) 09/09/2024 Patient Outreach [facility] [address] [place] [phone] Ibeth Lassiter MD Care Coordination ([facility] chart review) 09/09/2024 Patient Outreach [address] [address] Ibeth Lassiter MD 09/08/2024 Patient Outreach [facility] [address] [place] [address] Ibeth Lassiter MD Transition Of Care (Tcm) (F - scheduled. ) 08/19/2024 1:00 PM EDT Office Visit [facility] [address] [place] [address] Luciano Flores MD Pain of upper abdomen (Primary Dx); Alcohol-induced chronic pancreatitis (CMS/HCC) 08/19/2024 Travel 08/15/2024 Population Health Risk Score [facility] (C3) Department [address] [place] [phone] Provider, [facility] Generic 08/12/2024 Orders Only [facility] External Provider, [facility] 08/12/2024 Telephone [facility] [address] [place] [address] Ibeth Lassiter MD Hospital Follow-up 08/12/2024 Refill [facility] [address] [place] [address] Solis Taylor MD Alcohol-induced chronic pancreatitis (CMS/HCC) 08/11/2024 Refill [facility] [address] [place] [address] Ibeth Lassiter MD 08/07/2024 Patient Outreach [facility] [address] [place] [address] Ibeth Lassiter MD Transition Of Care (Tcm) 08/06/2024 Patient Outreach [facility] [address] [place] [address] Ibeth Lassiter MD Care Coordination ([facility] outreach for SDOH PT-1 and food needs-referral completed /) 08/06/2024 Telephone [facility] [address] [place] [address] Ibeth Lassiter MD PT-1 08/04/2024 Telephone [facility] [address] [place] [phone] Magda Ely, RN 08/04/2024 Telephone [facility] [address] [place] [address] Ibeth Lassiter MD Chart Prep 08/04/2024 Patient Outreach [facility] [address] [place] [address] Ibeth Lassiter MD Transition Of Care (Tcm) 08/03/2024 Orders Only GENERIC EXTERNAL DATA DEPARTMENT Provider, Generic External Data 08/01/2024 Patient Outreach [facility] [address] [place] [address] Ibeth Lassiter MD Transition Of Care (Tcm) (HDF scheduled. ) 07/30/2024 Orders Only GENERIC EXTERNAL DATA DEPARTMENT Provider, Generic External Data 07/24/2024 2:30 PM EST Clinical Support [facility] [address] [place] [address] Anastasiia Ocampo, charrer pancreatitis, unspecified pancreatitis type (CMS/HCC) 07/24/2024 Travel 07/18/[address] [address] Ibeth Lassiter MD Medication Question 07/16/2024 Patient Outreach [facility] [address] [place] [address] Ibeth Lassiter MD Transition Of Care (Tcm) 07/16/2024 Orders Only GENERIC EXTERNAL DATA DEPARTMENT Provider, Generic External Data 07/16/2024 Refill [facility] [address] [place] [address] Solis Taylor MD Alcohol-induced chronic pancreatitis (CMS/HCC) 07/14/2024 Patient Outreach [facility] [address] [place] [address] Ibeth Lassiter MD Transition Of Care (Tcm) 07/11/2024 9:30 AM EST Office Visit [facility] [address] [place] [address] Rosalina Mathews MD Chronic pancreatitis, unspecified pancreatitis type (CMS/HCC) (Primary Dx) 07/11/2024 Patient Outreach [facility] [address] [place] [address] Ibeth Lassiter MD Care Coordination (Outreach) 07/11/2024 Travel 07/11/2024 Patient Outreach [address] [phone] Ibeth Lassiter MD Transition Of Care (Tcm) 07/08/2024 Patient Outreach [facility] [address] [place], [place] [phone] Ibeth Lassiter MD Transition Of Care (Tcm) (HDF scheduled) 07/08/2024 Telephone [facility] [address] [place], [place] [phone] Ibeth Lassiter MD Hospital Follow-up; Care Coordination ([facility] program graduation.) 07/05/2024 Orders Only [facility] External Provider, [facility] 07/02/2024 Patient Outreach [facility] [address] [place], [place] [phone] Ibeth Lassiter MD Care Coordination (Outreach) 06/30/2024 Travel 06/30/2024 Telephone [facility] [address] [place], [place] [phone] Anastasiia Ocampo, EL 06/30/2024 Telephone [facility] [address] [place], [place] [phone] Anastasiia Ocampo, EL from Last 3 Months Immunizations Name Administration Dates Next Due DTaP, 5 pertussis antigens 12/24/2000,,02/12/1996,12/12,1995 HPV, Quadrivalent 01/10/2008,10/07/2007,02/07/20 07 Hep B, Adolescent or Pediatric 02/12/1996,1995,1995 Hib (HbOC) 01/27/1997, 6,1995,11/24 IPV 12/24/2000,199 6,1995,10/24 Influenza, Recombinant, inje ctable, preservative free 07/23/2009 Influenza, live, intranasal 04/04/2011 Influenza, seasonal, injecta ble, preservative free 07/05/2024,05/15/2014 MMR 09/08/1999,01/27/1997 Meningococcal MPSV4 07/08/2008 Novel [id number]-[id number], all formulations 07/23/2009 Rho(D)-IG IM 05/22/2020,03/20/2020,11/16/2019 Tdap [...] Sign Reading Time Taken Comments Blood Pressure 117/77 09/26/2024 1:30 PM EDT Pulse 88 09/26/2024 1:30 PM EDT Temperature 36.7 ??C (98.1 ??F) 09/26/2024 1:30 PM ED T Respiratory Rate 16 09/26/2024 1:30 PM EDT Oxygen Saturation 98% 09/19/2024 2:09 PM EDT Inhaled Oxygen Concentration - - Weight 61.7 kg (136 lb 2 oz) 09/26/2024 1:30 PM EDT Height 167.6 cm (5' 6 ) 09/26/2024 1:30 PM EDT Body Mass Index 21.97 09/26/2024 1:30 PM EDT Plan of Treatment Upcoming Encounters Date Type Department Care Team (Late st Contact Info) Description 10/13/2024 11:00 AM EDT Office Visit [facility] [address] [place] [address] Ibeth Lassiter MD [address] [place] [address] Health Maintenance Due Date Last Done Comments Family Planning (PISQ) 2010 COVID-19 Vaccine ( season) 2024 Diabetes: Hemoglobin A1C 02/19/2025 025, 02/29/2024, 09/18/2023 Lipid Panel 02/28/2025 02/29/2024 Pneumococcal Vaccine: Pediatrics (0 to 5 Years) and At-Risk Patients (6 to 49) Years) (1 of 2 - PCV) 02/28/2025 Postponed from 2014 (Patient Refused) SDOH Screening 04/07/2025 04/07/2024 Depression Screening 06/06/2025 06/06/2024, 06/06/19 25 Alcohol/Substance Use Screening 09/26/2025 09/26/2024 Tobacco Screening 09/26/2025 09/26/2024 Pap Smear 11/28/2025 11/28/2022 DTaP/Tdap/Td Vaccines (11 [...] Urine Protein Screening Discontinued Eye Exam Discontinued Hepatitis A Vaccines Aged Out No long er eligible based on patient's age to complete this topic RSV under 20 months Aged Out No longe r eligible based on patient's age to complete this topic Rotavirus Vaccines Aged Out No longer eligible based on patient's age to complete this topic Procedures Procedure Name Priority Date/Time Associated Diagnosis Comments POCT GLUCOSE Routine 08/19/2024 1:35 PM EDT Alcohol-induced chronic pancreatitis (CMS/HCC) POCT GLYCATED HEMOGLOBIN, TOTAL Routine 08/19/2024 1:34 PM EDT Alcohol-induced chronic pancreatitis (CMS/HCC) CT ABDOMEN PELVIS W CONTRAST Routine 08/13/2024 2:43 AM EDT HCG, QL, URINE Routine 08/03/2024 9:40 PM EST URINALYSIS WITH REFLEX MICROSCOPIC Routine 08/03/2024 9:40 PM EST ETHANOL Routine 08/03/2024 7:35 PM EST HCG, TOTAL, QN Routine 08/03/2024 7:35 PM EST LIPASE Routine 08/03/2024 7:35 PM EST COMPREHENSIVE METABOLIC PANEL Routine 08/03/2024 7:35 PM EST CBC WITH AUTO DIFFERENTIAL Routine 08/03/2024 7:[address] ABDOMEN PELVIS W CONTRAST Routine 2024 [...] W CONTRAST Routine 07/05/2024 2:58 AM EST LIPID PANEL, STANDARD Routine 02/29/2024 10:45 AM [...] Recently Relevant to Health Maintenance Results * POCT Glucose (08/19/2024 1:35 PM EDT) Glucose Blood, POC 144 60 - 200 mg/dL QC Media Lot # [id number] Lot# Expiration Date 826,025 Comment:random Blood Capillary blood specimen / Unknown 08/19/2024 1:35 PM EDT Luciano Flores MD POINT OF CARE TEST ENTER/ED IT ORDERABLES Final Result * POCT HGB A1C (08/19/2024 1:34 PM EDT) Hemoglobin A1C 5.7 4.0 - 6.0 % QC Media Lot # [id number] Lot# Expiration Date [id number] Blood 08/19/2024 1:34 PM EDT us Luciano Flores MD POINT OF CARE TEST ENTER/ED IT ORDERABLES Final Result * CT Abdomen Pelvis w/ Contrast (08/13/2024 2:43 AM EDT) Only the most recent of3 resultswithin the time period is included. Anatomical Region Laterality Modality Body, Pelvis, Abdomen Computed T omography 08/13/2024 2:43 AM EDT Narrative 08/13/2024 2:46 AM EDT ? [facility] ?[address] ?[place] [address] ? CT Scan Report ? Signed ? Patient: Aguilar,Deepti ?MR#: [id number] ?? 5 ? : 1995 ?Acct:[id number] ? Age/Sex: 29 / F ?ADM Date: 08/12/24 ? Loc: HO.ED ? Attending Dr: ? Ordering Physician: Nadia Abad MD ?? Date of Service: 08/13/24 ?? Procedure(s): CT abdomen pelvis w IV con ?? Accession Number(s): [id number] ? cc: Nadia Abad MD; Ibeth Lassiter MD ? Report Number: ?? [id number]: Total DLP = ??434.00 mGy-cm ? CLINICAL HISTORY: reocurrent pancreatitis ? CT abdomen and pelvis with contrast ? Comparison: CT - CT ABDOMEN PELVIS W IV CON - 08/13/24 01:29 EDT ? Findings: ?? No consolidation or effusion. ? Pancreatic duct is distended up to 4 mm at the pancreatic tail. There is ?? likely a distal pancreatic body ductal stricture. The pancreatic duct is ?? not distended at the pancreatic head and body. ?? No peripancreatic inflammatory changes. ?? Hypodense liver. ?? Gallbladder absent. Abdominal solid organs are otherwise unremarkable. No ?? urolithiasis. ?? No bowel obstruction, pneumoperitoneum, or pneumatosis. ?? Mesenteric vessels patent. ? The appendix is not clearly identified. ?? Uterus and ovaries unremarkable. ?? No ascites or hernia. ?? The bones are intact. ? IMPRESSION: ?? 1. There is likely a distal pancreatic body stricture with dilatation of ?? the pancreatic duct at the pancreatic tail. No inflammatory changes or ?? fluid collections are seen. ?? 2. Fatty liver. ? This document has been electronically signed by: Christian Villafana, ?? on 08/13/2024 02:43:46 ? Dictated By: ?Christian Villafana MD ? Signed By: ?<Electronically signed by Christian Villafana MD in OV> ?08/13/24244 ? DD/ 2 ? TD/TT: 08/13/24242 ? Activity Aid: ? Procedure Note Donotuseinterpreter, Image - 08/13/[address] [place] [address] [address] Scan Report Signed Patient: Tori Aguilar#: [id number] 5 : 1995Acct:[id number] Age/Sex: 29 / FADM Date: 08/12/24 Loc: HO.ED Attending Dr: Ordering Physician: Nadia Abad MD Date of Service: 08/13/24 Procedure(s): CT abdomen pelvis w IV con Accession Number(s): [id number] cc: Nadia Abad MD; Ibeth Lassiter MD Report Number: [id number]: Total DLP = 434.00 mGy-cm CLINICAL HISTORY: reocurrent pancreatitis CT abdomen and pelvis with contrast Comparison: CT - CT ABDOMEN PELVIS W IV CON - 08/13/24 01:29 EDT Findings: No consolidation or effusion. Pancreatic duct is distended up to 4 mm at the pancreatic tail. There is likely a distal pancreatic body ductal stricture. The pancreatic duct is not distended at the pancreatic head and body. No peripancreatic inflammatory changes. Hypodense liver. Gallbladder absent. Abdominal solid organs are otherwise unremarkable. No urolithiasis. No bowel obstruction, pneumoperitoneum, or pneumatosis. Mesenteric vessels patent. The appendix is not clearly identified. Uterus and ovaries unremarkable. No ascites or hernia. The bones are intact. IMPRESSION: 1. There is likely a distal pancreatic body stricture with dilatation of the pancreatic duct at the pancreatic tail. No inflammatory changes or fluid collections are seen. 2. Fatty liver. This document has been electronically signed by: Christian Villafana MD on 08/13/2024 02:43:46 Dictated By: Christian Villafana MD Signed By: <Electronically signed by Christian Villafana MD in OV> 08/13/24244 DD/ 2 TD/TT: 08/13/24242 Activity Aid: [facility] External Provider IMG CT PROCEDURES Final Result * HCG, Qualitative, Urine (08/03/2024 9:40 PM EST) Urine NEGATIVE NEGATIVE [facility] Comment:This test was develo ped to detect early . Falsenegative results may occur after the 5th - 7th week ofpregnancy when using this test method. If clinicallyindicated, consider a serum hCG. 08/03/2024 9:40 PM EST 08/03/2024 9:42 PM EST Generic External Data Provider LAB URINE ORDERAB LES Final Result Performing Organization Address City/[facility]/ZIP Co de Phone Number [facility] [address] [place] [address] [phone] * Urinalysis w/reflex microscopic (08/03/2024 9:40 PM EST) Color Urine Yellow [facility] Appearance Urine Clear [facility] PH 7.0 5.0 - 9.0 [facility] Glucose Urine UA Negative Negative mg/dL [facility] Urine Blood Negative Negative [facility] Specific Leota - Urine 1.010 1.005 - 1.025 [facility] Urine Protein Negative Neg-Trace mg/dL [facility] Urine Ketones Negative Negative mg/dL [facility] Nitrite Urine Negative Negative [facility] Leukocyte Esterase Urine Negative Negative [facility] 08/03/2024 9:40 PM EST 08/03/2024 9:42 PM EST Narrative [facility] - 08/03/2024 9:54 PM EST Urine, Clean Catch Generic External Data Provider LAB URINE ORDERAB LES Final Result Performing Organization Address [facility] Co de Phone Number [facility] [address] [place] [address] [phone] * Ethanol (08/03/2024 7:35 PM EST) Only the most recent of2 resultswithin the time period is included. ETHANOL (MG/DL) IN SER/PLAS <10 mg/dL [facility] Comment:Serum/plasma ethanol results are to be used formedical/treatment purposes only. 08/03/2024 7:35 PM EST 08/03/2024 7:38 PM EST us Generic External Data Provider LAB BLOOD ORDERAB LES Final Result [facility] [address] [place] [address] [phone] * (ABNORMAL) CBC auto differential (08/03/2024 7:35 PM EST) Only the most recent of3 resultswithin the time period is included. White Blood Count 5.6 4.8 - 10.8 X10*3/uL [facility] Red Blood Count 4.79 4.20 - 5.50 X10*6/uL [facility] Hemoglobin 11.9(L) 12.0 - 16.0 g/dl [facility] Hematocrit 36.5(L) 37.0 - 47.0 % [facility] Mean Corpuscular Volume 76.2(L) 80.0 - 98.0 fL [facility] Mean Corpuscular Hemoglobin 24.8(L) 27.0 - 33.0 pg [facility] Mean Corpuscular HGB Conc 32.6 31.0 - 35.0 g/dl [facility] Red Cell Distribution Width 15.4 11.0 - 16.0 % [facility] Platelet Count 243 160 - 400 X10*3/uL [facility] Mean Platelet Volume 10.8 9.4 - 12.3 fL [facility] Neutrophils Percent Auto 63.1 45 - 73 % [facility] Imm Gran Pct Auto 0.2 0.0 - 0.4 % [facility] Lymphocytes Percent Auto 28.9 20 - 40 % [facility] Monocytes Percent Auto 6.6 2 - 11 % [facility] Eosinophils Percent Auto 0.7 0 - 4 % [facility] Basophils Percent Auto 0.5 0 - 2 % [facility] NRBC Pct Auto 0.0 0.0 - 0.2 /100WBC [facility] Neutrophils Absolute Auto 3.5 2.0 - 8.3 x10*3/uL [facility] Imm Gran Abs Auto 0.01 0.00 - 0.03 X10*3/uL [facility] Lymphocytes Absolute Auto 1.6 1.2 - 4.9 X10*3/uL [facility] Monocytes Absolute Auto 0.4 0.1 - 1.2 X10*3/uL [facility] Eosinophils Absolute Auto 0.0 0.0 - 0.4 X10*3/uL [facility] Basophils Absolute Auto 0.0 0.0 - 0.2 X10*3/uL [facility] NRBC Abs Auto 0.000 0.0 - 0.012 X10*3/uL [facility] 08/03/2024 7:35 PM EST 08/03/2024 7:38 PM EST us Generic External Data Provider LAB BLOOD ORDERAB LES Final Result [facility] [address] [place] [address] [phone] * hCG, Total, Quantitative (08/03/2024 7:35 PM EST) Only the most recent of2 resultswithin the time period is included. HCG Quantitative <2 mIU/mL [facility] Comment:Weeks post LMP Appro ximate hCG(Last Menstrual Period) Range (mIU/ml)3 - 4 weeks 9 - 1304 - 5 weeks 75 - 2,6005 - 6 weeks 850 - 20,8006 - 7 weeks 4000 - 100,2007 - 12 weeks 11,500 - 289,08143 - 16 weeks 18,300 - 137,04697 - 29 weeks (2nd trimester) 1,400 - 53,95764 - 41 weeks (3rd trimester) 940 - 60,000The Nunez B- hCG assay is used for the early detection ofpregnancy; it cannot be used to diagnose any conditionunrelated to . If a B-hCG level is not supportedby the clinical evidence, results should be confirmed by analternative method (qualitative urine hCG, for example). 08/03/2024 7:35 PM EST 08/03/2024 7:38 PM EST Generic External Data Provider LAB BLOOD ORDERAB LES Final Result Performing Organization Address [facility] Co de Phone Number [facility] [address] [place] [phone] * (ABNORMAL) Lipase (08/03/2024 7:35 PM EST) Only the most recent of3 resultswithin the time period is included. Lipase 4(L) 8 - 78 U/L [facility] 08/03/2024 7:35 PM EST 08/03/2024 7:38 PM EST Generic External Data Provider LAB BLOOD ORDERAB LES Final Result Performing Organization Address [facility] de Phone Number [facility] [address] [place] [phone] * (ABNORMAL) Comprehensive Metabolic Panel (08/03/2024 7:35 PM EST) Only the most recent of3 resultswithin the time period is included. Sodium 138 135 - 145 mmol/L [facility] Potassium 3.7 3.3 - 5.1 mmol/L [facility] Chloride 109(H) 96 - 108 mmol/L [facility] Carbon Dioxide 20(L) 22 - 29 mmol/L [facility] Anion Gap 13 12 - 20 [facility] Urea Nitrogen (BUN) 5(L) 9 - 16 mg/dL [facility] Creatinine, Serum 0.70 0.5 - 1.4 mg/dL [facility] Creatinine Clr Calc Pharmacy 102.3 [facility] Comment:Provided height and weight: 162.56 cm,58.967 kg.eGFR (calculated from the MDRD study equation) and eCrCl(calculated from the Cockcroft-Gault equation) are based ondifferent parameters and may not yield comparable results.If eCrCl result is absurd, please check patient'sheight/weight. Estimated Glomerular Filt Rate >60 [facility] Comment:Chronic Kidney Disea se: Estimated GFR < 60 mL/min/1.42s6Dsieim Kidney Disease: Estimated GFR < 15 mL/min/1.73m2 Glucose 122(H) 60 - 115 mg/dL [facility] Calcium 9.0 8.4 - 10.2 mg/dL [facility] Bilirubin, Total 0.4 0.0 - 1.0 mg/dL [facility] Aspartate Amino Transferase 84(H) 5 - 31 U/L [facility] Alanine Aminotransferase 190(H) 0 - 31 U/L [facility] Total Protein 7.5 6.5 - 8.0 g/dL [facility] Albumin Level 4.3 3.5 - 5.0 g/dL [facility] Alkaline Phosphatase 254(H) 39 - 117 U/L [facility] 08/03/2024 7:35 PM EST 08/03/2024 7:38 PM EST us Generic External Data Provider LAB BLOOD ORDERAB LES Final Result [facility] [address] [place] [phone] * Urinalysis, Complete, with Reflex to Culture (07/30/2024 8:54 PM EST) Color Urine Yellow [facility] Appearance Urine Clear [facility] PH 6.0 5.0 - 9.0 [facility] Glucose Urine UA Negative Negative mg/dL [facility] Urine Blood Negative Negative [facility] Specific Leota - Urine 1.025 1.005 - 1.025 [facility] Urine Protein Trace Neg-Trace mg/dL [facility] Urine Ketones Trace Negative mg/dL [facility] Nitrite Urine Negative Negative [facility] Leukocyte Esterase Urine Negative Negative [facility] RBC Urine 0-2 0 - 2 /HPF [facility] Urine WBC 0-5 0 - 5 /HPF [facility] Urine Squamous Epithelial Cell 6-10 0 - 2 /HPF [facility] Urine Bacteria None Seen None Seen [facility] Hyaline Casts, Urine 0-2 0 - 2 /LPF [facility] 07/30/2024 8:54 PM EST 07/30/2024 8:57 PM EST Narrative [facility] - 07/30/2024 9:31 PM EST [id number], Clean Catch us Generic External Data Provider LAB URINE ORDERAB LES Final Result [facility] [address] [place] [phone] * POCT ANGE-14 Urine Drug Screen (07/24/2024 2:24 PM EST) THC Positive Opiate Screen, Urine Positive Urine Urine specimen obtained by clean catch procedure / Unknown 07/24/2024 2:24 PM EST Narrative Anastasiia Ocampo RN - 07/24/2024 2:24 PM EST Lot# [id number] Exp: 01-21-26 us Ibeth Lassiter MD POINT OF CARE TEST ENTER/EDIT ORDERABLES Final Result * US Abdomen Complete (07/16/2024 3:02 PM EST) Anatomical Region Laterality Modality Abdomen Ultrasound 07/16/2024 3:02 PM EST Narrative 07/16/2024 3:31 PM EST ? [facility] ?[address] ?[place] [address] ? Ultrasound Report ? Signed ? Patient: Aguilar,Deepti ?MR#: [id number] ?? 5 ? : 1995 ?Acct:[id number] ? Age/Sex: 28 / F ?ADM Date: 07/16/ ? Loc: HO.ED ? Attending Dr: ? Ordering Physician: Dai Torrez ?? Date of Service: 07/16/24 ?? Procedure(s): US abdomen complete ?? Accession Number(s): [id number] ? cc: Dai Torrez; Ibeth Lassiter MD [...] DD/ 1502 ? TD/TT: 07/16/24 1516 ? Activity Aid: ? Procedure Note Donotuseinterpreter, Image - 07/16/[address] [address] Ultrasound Report Signed Patient: Deepti AguilarMR#: [id number] 5 : 1995Acct:[id number] Age/Sex: 28 / FADM Date: 07/16/24 Loc: HO.ED Attending Dr: Ordering Physician: Dai Torrez Date of Service: 07/16/24 Procedure(s): US abdomen complete Accession Number(s): [id number] cc: Dai Torrez; Ibeth Lassiter MD EXAMINATION: [...] 07/16/24 1528 DD/ 1502 TD/TT: 07/16/24 1516 Activity Aid: us [facility] External Provider IMG US PROCEDURES Final Result * MR Abdomen w/ and w/o Contrast (07/06/2024 11:32 AM EST) Anatomical Region Laterality Modality Abdomen Magnetic Resonan ce 07/06/2024 11:3 2 AM EST Narrative 07/06/2024 11:34 AM EST ? [facility] ?[address] ?[place] [address] ? Magnetic Resonance Report ? Signed ? Patient: Aguilar,Deepti ?MR#: [id number] ?? 5 ? : 1995 ?Acct:[id number] ? Age/Sex: 28 / F ?ADM Date: 07/05/24 ? Loc: HO.S3 ?372-1 ? Attending Dr: Alexandro Garza MD ? Ordering Physician: Chris Chandler MD ?? Date of Service: 07/06/24 ?? Procedure(s): MR abdomen wo/w con ?? Accession Number(s): [id number] ? cc: Ibeth Lassiter MD; Chris Chandler [...] MD in OV> ? 07/06/243 ? DD/ 1132 ? TD/TT: 07/06/24 1132 ? Activity Aid: ? Procedure Note Donbrendanter, Image - 07/06/[address] [address] Magnetic Resonance Report Signed Patient: Tori Aguilar#: [id number] 5 : 1995Acct:[id number] Age/Sex: 28 / FADM Date: 07/05/24 Loc: .S3 372-[address]: Alexandro Garza MD Ordering Physician: Chris Chandler MD Date of Service: 07/06/24 Procedure(s): MR abdomen wo/w con Accession Number(s): [id number] cc: Ibeth Lassiter MD; Chris Chandler MD [...] 07/06/24 1133 DD/ 1132 TD/TT: 07/06/24 1132 Activity Aid: [facility] External Provider IMG MRI PROCEDURES Final Result * (ABNORMAL) Lipid Panel, Standard (02/29/2024 10:45 AM EDT) Triglycerides 94 <150 mg/dL [facility] Comment:Desirable Triglyceri de: less than 150 mg/dLBorderline High Triglyceride 150-199 mg/dLHigh Triglyceride: 200-499 mg/dLVery High Triglyceride: greater than or equal to 5OO mg/dL Cholesterol 112 <200 mg/dL [facility] Comment:Desirable Cholestero l: less than 200 mg/dLBorderline High Cholesterol: 200-239 mg/dLHigh Cholesterol: greater than 239 mg/dL LDL Cholesterol Calculated 54 <100 mg/dL [facility] Comment:Desirable LDL: less than 100 mg/dLNear Optimal/Above Optimal LDL: 110- 129 mg/dLBorderline High LDL: 130-159 mg/dLHigh LDL: 160-189 mg/dLVery High LDL: greater than or equal to 190 mg/dL HDL Cholesterol 40(L) >40 mg/dL [facility] Comment:Desirable HDL: great er than 40 mg/dL Note: This HDL assay may give artificially low results in patients with liver disease. Blood Venous blood specimen / Unknown 02/29/2024 10:45 AM EDT 02/29/2024 2:07 PM EDT Ibeth Lassiter MD LAB BLOOD ORDERABLES Final Re sult [facility] [address] [place] [phone] [phone] * Image-Guided Pap with Age-Based Screening??with CT/NG,??Trichomonas (11/28/2022 1:22 PM EDT) Comment [facility] [facility] Comment: This order for age-based cervical cancer and STI screening follows ACOG guidelines(PB 168, 140, HTY566). See individual assays for performing site location. Clinical Information: None given [employer] LMP: NONE GIVEN [facility] Prev. PAP: NONE GIVEN [employer] [facility] Prev. BX: NONE GIVEN [employer] SOURCE: None given [employer] Statement Of Adequacy: [employer] Comment: Satisfactory for evaluation. Endocervical/transformation zone component present. Interpretation/Re sult: Negative for intraepithelial lesion or malignancy. [employer] COMMENT: This Pap test has been evaluated with computer assisted technology. [facility] [place] [facility] Fan Mail Clerk: Harv[employer] [place] [facility] Comment: SXA, CT(ASCP) CT screening location: [address] ??[address] PATHOLOGIST: [facility] [place] [facility] Comment: Brady Ortiz M.D. Direct , Board Certified in Anatomic and Clinical Pathology and Cytopathology (electronic signature) Consulting Pathologist [facility] [address] [place] [address] (Always Message) [employer] Comment: EXPLANATORY NOTE: The Pap is a [...] RNA, TMA, Urogenital NOT DETECTED NOT DETECTED [employer] Neisseria gonorrhoeae RNA, TMA, Urogenital NOT DETECTED NOT DETECTED [employer] (Always Message) [employer] Comment: The analytical performance characteristics of this assay, when used to test SurePath(TM) specimens have been determined by [facility]. The modifications have not been cleared or approved by the FDA. This assay has been validated pursuant to the CLIA regulations and is used for clinical purposes. For additional information, please refer to https://education.[employer]faq/VBT842 (This link is being provided for information/ educational purposes only.) Trichomonas vaginalis, QL, TMA, PAP Vial NOT DETECTED NOT DETECTED [employer] Comment: The analytical performance characteristics of this assay have been determined by [facility]. The modifications have not been cleared or approved by the FDA. This assay has been validated pursuant to the CLIA regulations and is used for clinical purposes. For additional information, please refer to http://scrible.[employer] faq/Trichomonastma (This link is being provided for information/ educational purposes only.) Pap Vial 11/28/2022 1:22 PM EDT 11/29/2022 3:01 AM EDT Yuly Lopez [facility]TOLOGY ORDERABLES F inal Result [facility] [address], [place] [address] [facility] [place] [facility] [address] [place] [address] * Hepatitis C Antibody with Reflex to HCV, RNA, Quantitative, Real-Time PCR (10/26/2022 9:56 AM EDT) Hepatitis C Antibody NON-REACT CASEY NON-REACT CASEY [facility] [place] [facility] Index 0.11 <1.00 [facility] [place] [facility] Comment: HCV antibody was non-reactive. There is no laboratory evidence of HCV infection. In most cases, no further action is required. However, if recent HCV exposure is suspected, a test for HCV RNA (test code 96101) is suggested. For additional information please refer to http://scrible.[employer]faq/UQA55k4 (This link is being provided for informational/ educational purposes only.) Blood Venous blood specimen / Unknown 10/26/2022 9:56 AM EDT 10/26/2022 9:58 AM EDT Narrative [facility] - 11/02/2022 2:12 PM EDT SPECIALIZED COLLECTION. PATIENT REFERRED TO ALTERNATE SITE. us Ibeth Lassiter MD LAB BLOOD ORDERABLES Final Re sult [facility] [address] [facility], [place] [address] [facility] [address] [place] [address] * HIV 1/2 ANTIGEN/ANTIBODY,FOURTH GENERATION W/RFL (01/25/2022 12:04 PM EDT) Pathologist [facility] HIV-1/2 ANTIGEN AND ANTIBODIES, 4TH GENERATION W/ REFLEX NON-REACT CASEY NON-REACT CASEY [facility] Comment: HIV-1 antigen and HIV-1/HIV-2 [...] ? For additional information please refer to http://education.[employer]/faq/RVB057 (This link is being provided for informational/ educational purposes only.) ? The performance of this assay has not been clinically validated in patients less than 2 years old. ?? 01/25/2022 12:0 4 PM EDT Ibeth Lassiter MD LAB BLOOD ORDERABLES Final Re sult [facility] [address] from Last 3 Months or Most Recently Relevant to Health Maintenance Insurance [facility] C3 Care Teams Tank Builder And Erector Relationship Specialty Start Date End Date Ibeth Lassiter MD [address] [place] [address] PCP - General Family Medicine 12/16/21
--- OUTSIDE RECORDS SUMMARY | 2024-09-26 15:05 | XMS_ITS | Encounter Summary ---
Author Organization [employer] Address [address] [address] 7t [place] [address] Care Team Providers Care Band Tacker Name Role Phone Ibeth Lassiter MD Primary Care Provider [phone] Reason for Visit * Reason Onset Date Comments chartprep 09/25/2024 Encounter Details Date Type Department Care Team (Late st Contact Info) Description 09/25/2024 Telephone [facility] [address] [place] [address] Treasure Solorio MA chartprep Social History Tobacco Use Types Packs/Day Years [...] encounter Miscellaneous Notes * Telephone Encounter - Treasure Solorio MA - 09/25/2024 9:49 AM EDT Chart Prep Labs: done except 09/23/24 lab order Images: done Referrals: complete Vaccines due: yes covid Screenings: not applicable Overdue care gaps: SBIRT and Disability screen documented in this encounter Plan of Treatment Upcoming Encounters Date Type Department Care Team ([facility] st Contact Info) Description 10/13/2024 11:00 AM EDT Office Visit [facility] [address] [place] [address] Ibeth Lassiter MD [address] [place] [address] documented as of this encounter Visit Diagnoses Not on filedocumented in this encounter Additional Health Concerns Assessment Noted Time PHQ-9 Depression Total Score: 22 025 10:04 AM EST documented as of this encounter Care Teams Band Tacker Relationship Specialty Start Date End Date Ibeth Lassiter MD [address] [place] [address] PCP - General Family Medicine 12/16/21 documented as of this encounter
--- OUTSIDE RECORDS SUMMARY | 2024-09-26 15:05 | XMS_ITS | Encounter Summary ---
Author Organization [employer] Address [address] [facility] 7t [place] [address] Care Team Providers Care Data Security Analyst Name Role Phone Ibeth Lassiter MD Primary Care Provider [phone] Reason for Visit * Reason Onset Date Comments Med Refill 09/19/2024 Encounter Details Date Type Department Care Team ([facility] st Contact Info) Description 09/19/2024 Telephone [facility] [address] [place] [address] Ibeth Lassiter MD [address] [place] [address] Med Refill Social History Tobacco Use Types [...] encounter Miscellaneous Notes * Telephone Encounter - Abbie Edmonds - 09/19/2024 2:57 PM EDT TC from pt requesting medication refill. Medications needing refill : morphine (MSIR) 15 MG tablet To be sent to: [id number] [facility] documented in this encounter Plan of Treatment Upcoming Encounters Date Type Department Care Team ([facility] Contact Info) Description 10/13/2024 11:00 AM EDT Office Visit [facility] MED & PEDS [address] [place] [address] Ibeth Lassiter MD [address] [place] [address] documented as of this encounter Visit Diagnoses Not on filedocumented in this encounter Additional Health Concerns Assessment Noted Time PHQ-9 Depression Total Score: 22 025 10:04 AM EST documented as of this encounter Care Teams Data Security Analyst Relationship Specialty Start Date End Date Ibeth Lassiter MD [address] [place] [address] PCP - General Family Medicine 12/16/21 documented as of this encounter
--- OUTSIDE RECORDS SUMMARY | 2024-09-26 15:05 | XMS_ITS | Encounter Summary ---
Author Organization [employer] Address 75 [facility] 7t [place] [address] Care Team Providers Care High School Professional Name Role Phone Ibeth Lassiter MD Primary Care Provider [phone] Reason for Visit * Reason Onset Date Comments Medication Question 09/23/2024 Call request 09/23/2024 Encounter Details Date Type Department Care Team ([facility] st Contact Info) Description 09/23/2024 Telephone [facility] MED[facility]INE [address] [place] [address] Ibeth Lassiter MD [address] [place], [place] [phone] Medication Question; Call request Social History Tobacco Use Types Packs/Day Years [...] Telephone Encounter - Magda Ely RN - 09/23/2024 2:22 PM EDT Tc to pt to let them know per PCP Can you please inform Deepti of blood work for Sunday09/26/2024 a repeat of CBC and CMP. Also she needs to the lab for repeat of H.pylori stool test in 2 weeks for cure . All orders are sent to the lab. Thank you . Pt also reports they picked up their medication on 09/19/24 and reports that the morphine would help for a little bit but but the pain is still persistent. * Telephone Encounter - Abbie Edmonds - 09/23/2024 12:42 PM EDT Tc from pt requesting a call from elaine, regarding some medication questions Contact at [phone] documented in this encounter Plan of Treatment Upcoming Encounters Date Type Department Care Team (Late st Contact Info) Description 10/13/2024 11:00 AM EDT Office Visit [facility]EDS [address] [place] [address] Ibeth Lassiter MD [address] [place] [address] documented as of this encounter Visit Diagnoses Not on filedocumented in this encounter Additional Health Concerns Assessment Noted Time PHQ-9 Depression Total Score: 22 025 10:04 AM EST documented as of this encounter Care Teams High School Professional Relationship Specialty Start Date End Date Ibeth Lassiter MD [address] [place] [address] PCP - General Family Medicine 12/16/21 documented as of this encounter
--- OUTSIDE RECORDS SUMMARY | 2024-09-26 15:05 | XMS_ITS | Encounter Summary ---
Author Organization [employer] Address [address] [facility] [address] [place] [address] Care Team Providers Care Pmo Project Manager Name Role Phone Ibeth Lassiter MD Primary Care Provider [phone] Encounter Details Date Type Department Care Team ([facility] st Contact Info) Description 09/26/2024 Patient Outreach [facility] MED & PEDS [address] [place] [address] Doreen Johnston RN [address] [place] [address] Social History Tobacco Use Types Packs/Day Years [...] Description 10/13/2024 11:00 AM EDT Office Visit [facility] MED [facility] PEDS [address] [place] [address] Ibeth Lassiter MD [address] [place] [address] documented as of this encounter Visit Diagnoses Not on filedocumented in this encounter Additional Health Concerns Assessment Noted Time PHQ-9 Depression Total Score: 22 025 10:04 AM EST documented as of this encounter Care Teams Pmo Project Manager Relationship Specialty Start Date End Date Ibeth Lassiter MD [address] [place] [address] PCP - General Family Medicine 12/16/21 documented as of this encounter
--- OUTSIDE RECORDS SUMMARY | 2024-09-26 15:05 | XMS_ITS | Encounter Summary ---
Author Organization [employer] Address [address] [facility] 7t [place] [address] Care Team Providers Care Calciminer Name Role Phone Ibeth Lassiter MD Primary Care Provider [phone] Reason for Visit * Reason Onset Date Comments Appointment Request 06/27/2024 Encounter Details Date Type Department Care Team ([facility] st Contact Info) Description 06/27/2024 Telephone [facility] [address] [place] [address] Ibeth Lassiter MD [address] [place] [address] Appointment Request Social History Tobacco Use Types [...] R/s appt from 06/12. Contact pt at [phone] documented in this encounter Plan of Treatment Upcoming Encounters Date Type Department Care Team ([facility] st Contact Info) Description 10/13/2024 11:00 AM EDT Office Visit [facility] [address] [place] [address] Ibeth Lassiter MD [address] [place] [address] documented as of this encounter Visit Diagnoses Not on filedocumented in this encounter Additional Health Concerns Assessment Noted Time PHQ-9 Depression Total Score: 22 025 10:04 AM EST documented as of this encounter Care Teams Calciminer Relationship Specialty Start Date End Date Ibeth Lassiter MD [address] [place] [address] PCP - General Family Medicine 12/16/21 documented as of this encounter
--- OUTSIDE RECORDS SUMMARY | 2024-09-26 15:05 | XMS_ITS | Encounter Summary ---
Author Organization [employer] Address [address] [facility] [address] [place] [address] Care Team Providers Care Alteration Workroom Supervisor Name Role Phone Ibeth Lassiter MD Primary Care Provider [phone] Encounter Details Date Type Department Care Team (Late st Contact Info) Description 09/26/2024 1:30 PM EDT Office Visit [facility] [address] [place] [address] Amber Marie FNP [address] [place] [address] Arrived Social History Tobacco Use Types Packs/Day Years [...] 16 09/26/2024 1:30 PM EDT Oxygen Saturation - - Inhaled Oxygen Concentration - - Weight 61.7 kg (136 lb 2 oz) 09/26/2024 1:30 PM EDT Height 167.6 cm (5' 6 ) 09/26/2024 1:30 PM EDT Body Mass Index 21.97 09/26/2024 1:30 PM EDT documented in this encounter Plan of Treatment Upcoming Encounters Date Type Department Care Team (Late st Contact Info) Description 10/13/2024 11:00 AM EDT [facility] [address] [place] [address] Ibeth Lassiter MD [address] [place] [address] documented as of this encounter Visit Diagnoses Not on filedocumented in this encounter Additional Health Concerns Assessment Noted Time PHQ-9 Depression Total Score: 22 025 10:04 AM EST documented as of this encounter Care Teams Alteration Workroom Supervisor Relationship Specialty Start Date End Date Ibeth Lassiter MD [address] [place] [address] PCP - General Family Medicine 12/16/21 documented as of this encounter
--- OUTSIDE RECORDS SUMMARY | 2024-09-26 15:05 | XMS_ITS | Encounter Summary ---
Author Organization [employer] Address [address] [facility] [facility] [address] [place] [address] Care Team Providers Care Group Leader Semiconductor Processing Name Role Phone Ibeth Lassiter MD Primary Care Provider [phone] Reason for Visit * Reason Onset Date Comments Medication Question 05/16/2024 Encounter Details Date Type Department Care Team ([facility] st Contact Info) Description 05/16/2024 Telephone [facility] [address] [place] [address] Ibeth Lassiter MD [address] [place] [address] Medication Question Social History Tobacco Use Types [...] AM left message to return call to [facility] * Telephone Encounter - Ibeth Lassiter [...] around don't have it. Contact pt at [phone] documented in this encounter Plan of Treatment Upcoming Encounters Date Type Department Care Team ([facility] st Contact Info) Description 10/13/2024 11:00 AM EDT Office Visit [facility] PEDS [address] [place] [address] Ibeth Lassiter MD [address] [place] [address] documented as of this encounter Visit Diagnoses Not on filedocumented in this encounter Additional Health Concerns Assessment Noted Time PHQ-9 Depression Total Score: 24 024 3:55 PM EDT documented as of this encounter Care Teams Group Leader Semiconductor Processing Relationship Specialty Start Date End Date Ibeth Lassiter MD [address] [place] [address] PCP - General Family Medicine 12/16/21 documented as of this encounter
--- OUTSIDE RECORDS SUMMARY | 2024-09-26 15:06 | XMS_ITS | Encounter Summary ---
Author Organization [employer] Address [address] [facility] 7t [place] [address] Care Team Providers Care District Resource Officer Name Role Phone Ibeth Lassiter MD Primary Care Provider [phone] Reason for Visit * Reason Onset Date Comments PT-1 08/06/2024 Encounter Details Date Type Department Care Team ([facility] st Contact Info) Description 08/06/2024 Telephone [facility] MEDICINE [address] [place] [address] Ibeth Lassiter MD [address] [place] [address] PT-1 Social History Tobacco Use Types Packs/Day Years [...] * Telephone Encounter - Damon Hoover - 08/06/2024 9:40 AM EST Patient calling requesting PT1 Home Address verified: Y/N: Yes Provider name or facility name: [facility] [place] [address] Escort needed: Y/N: No Do you have a wheelchair: Y/N: No If yes- Manual or electric: Visits: (2 x Monthly) Pt has Apt on 08/08/24. Patient calling requesting PT1 Home Address verified: Y/N: Yes Provider name or facility name: [address] [facility] Escort needed: Y/N: No Do you have a wheelchair: Y/N: No If yes- Manual or electric: Visits: (3 x Monthly) documented in this encounter Plan of Treatment Upcoming Encounters Date Type Department Care Team ([facility] st Contact Info) Description 10/13/2024 11:00 AM EDT Office Visit [facility] MED & PEDS [address] [place] [address] Ibeth Lassiter MD 505 [place] [address] documented as of this encounter Visit Diagnoses Not on filedocumented in this encounter Additional Health Concerns Assessment Noted Time PHQ-9 Depression Total Score: 025 10:04 AM EST documented as of this encounter Care Teams District Resource Officer Relationship Specialty Start Date End Date Ibeth Lassiter MD [address] [place] [address] PCP - General Family Medicine 12/16/21 documented as of this encounter
--- OUTSIDE RECORDS SUMMARY | 2024-09-26 15:06 | XMS_ITS | Encounter Summary ---
Author Organization [employer] Address 75 [facility] 7t [place] [address] Care Team Providers Care Circular Tank Cooper Name Role Phone Ibeth Lassiter MD Primary Care Provider [phone] Reason for Visit * Reason Onset Date Comments Med Refill 11/02/2023 Encounter Details Date Type Department Care Team (Late st Contact Info) Description 11/02/2023 Refill [facility] CHC MED & PEDS [address] [place] [address] Ibeth Lassiter MD [address] [place] [address] Acute necrotizing pancreatitis Social History Tobacco Use [...] 10/13/2024 11:00 AM EDT Office Visit [facility] MED & PEDS [address] [place] [address] Ibeth Lassiter MD [address] [place] [address] documented as of this encounter Visit Diagnoses Diagnosis Acute necrotizing pancreatitis Acute pancreatitis documented in this encounter Additional Health Concerns Assessment Noted Time PHQ-9 Depression Total Score: 14 023 10:26 AM EDT documented as of this encounter Care Teams Circular Tank Cooper Relationship Specialty Start Date End Date Ibeth Lassiter MD [address] [place] [address] PCP - General Family Medicine 12/16/21 documented as of this encounter
--- OUTSIDE RECORDS SUMMARY | 2024-09-26 15:06 | XMS_ITS | Encounter Summary ---
Author Organization [employer] Address [address] [facility] 7t [place] [address] Care Team Providers Care Conductor Pullman Name Role Phone Ibeth Lassiter MD Primary Care Provider [phone] Reason for Visit * Reason Onset Date Comments Med Refill 11/05/2023 Encounter Details Date Type Department Care Team (Late st Contact Info) Description 11/05/2023 Refill [facility] CHC MED & PEDS [address] [place] [address] Ibeth Lassiter MD [address] [place] [address] Anxiety Social History Tobacco Use Types Packs/Day [...] Description 10/13/2024 11:00 AM EDT Office Visit [facility] MED & PEDS [address] [place] [address] Ibeth Lassiter MD [address] [place] [address] documented as of this encounter Visit Diagnoses Diagnosis Anxiety Anxiety state, unspecified documented in this encounter Additional Health Concerns Assessment Noted Time PHQ-9 Depression Total Score: 14 023 10:26 AM EDT documented as of this encounter Care Teams Conductor Pullman Relationship Specialty Start Date End Date Ibeth Lassiter MD [address] [place] [address] PCP - General Family Medicine 12/16/21 documented as of this encounter
--- OUTSIDE RECORDS SUMMARY | 2024-09-26 15:06 | XMS_ITS | Encounter Summary ---
Author Organization [employer] Address 75 [facility] 7 [place] [address] Care Team Providers Care Corporate Safety Manager Name Role Phone Ibeth Lassiter MD Primary Care Provider [phone] Reason for Visit * Reason Onset Date Comments Med Refill 10/22/2023 Encounter Details Date Type Department Care Team (Late st Contact Info) Description 10/22/2023 Refill [facility] CHC MED & PEDS [address] [place] [address] Solis Taylor MD [address] [place] [address] Acute necrotizing pancreatitis Social History Tobacco Use [...] with others, in a hotel, in a penitentiary, living outside on the street, on a [...] Description 10/13/2024 11:00 AM EDT Office Visit [facility] CH[facility] MED & PEDS [address] [place] [address] Ibeth Lassiter MD [address] [place] [address] documented as of this encounter Visit Diagnoses Diagnosis Acute necrotizing pancreatitis Acute pancreatitis documented in this encounter Additional Health Concerns Assessment Noted Time PHQ-9 Depression Total Score: 14 023 10:26 AM EDT documented as of this encounter Care Teams Corporate Safety Manager Relationship Specialty Start Date End Date Ibeth Lassiter MD [address] [place] [address] PCP - General Family Medicine 12/16/21 documented as of this encounter
--- OUTSIDE RECORDS SUMMARY | 2024-09-26 15:06 | XMS_ITS | Clinical Summary ---
Author Organization [facility] Address [address] [place] [address] Care Team Providers Care Cost Manager Name Role Phone Ibeth Lassiter MD Primary Care Provider [phone] Allergies Active Allergy Reactions Criticality Noted Date Comments Codeine Anaphylaxis High 09/07/2023 Oxycodone Anaphylaxis High 09/07/2023 Penicillins Anaphylaxis High 09/07/2023 Medications morphine (MSIR) 30 MG tabletIndication s:Necrotizing pancreatitis,Acu te abdominal pain Take 0.5-1 tablets (15-30 mg total) by mouth 4 times daily (every 6 hours) as needed for severe pain. 24 tablet 4 Active pregabalin (LYRICA) 100 MG capsuleIndicatio ns:Necrotizing pancreatitis,Acu te abdominal pain Take 1 capsule (100 mg total) by mouth 3 (three) times a day. 30 capsule 4 Active methocarbamol (ROBAXIN) 500 MG tabletIndication s:Necrotizing pancreatitis,Acu te abdominal pain Take 2 tablets (1,000 mg total) by mouth 4 (four) times a day as needed for muscle spasms. 60 tablet 4 Active apixaban (ELIQUIS) 5 MG tabletIndication s:Necrotizing pancreatitis Take 1 tablet (5 mg total) by mouth 2 (two) times a day. 60 tablet 4 Active folic acid (FOLVITE) 1 MG tabletIndication s:Necrotizing pancreatitis Take 1 tablet (1 mg total) by mouth daily. 30 tablet 4 Active multivitamin with minerals Tab tabletIndication s:Necrotizing pancreatitis Take 1 tablet by mouth daily. 30 tablet 4 Active polyethylene glycol (miraLAx) 17 g packetIndication s:Necrotizing pancreatitis Take 1 packet (17 g total) by mouth daily as needed for constipation. 30 packet 4 Active senna-docusate (SENNA-S) 8.6-50 MGIndications:Ne crotizing pancreatitis Take 2 tablets by mouth nightly as needed for constipation. 60 tablet 4 Active thiamine mononitrate (VITAMIN B-1) 100 MG tabletIndication s:Necrotizing pancreatitis Take 2 tablets (200 mg total) by mouth daily. 60 tablet 4 Active calcium carbonate (TUMS) 500 MG chewable tabletIndication s:Necrotizing pancreatitis Chew 1 tablet (500 mg total) 4 (four) times a day as needed for indigestion or heartburn. 4 Active Active Problems Problem Noted Date Diagnosed [...] pur e alcohol) 10-12 nips per day [facility] Utilities Answer Date Recorded In the past 12 months has [employer], gas, oil, or water [employer] threatened to shut off services in your [...] place to sleep or slept in a usp (including now)? No 09/08/2023 Comments Unknown Sex and Gender Information Value Date Recorded Sex Assigned at Female 09/07/2023 11:13 PM EDT Legal Sex Female 6:30 PM EDT Gender Identity Female 09/07/2023 11:13 [...] on patient's age to complete this topic Insurance HEALTH HE[employer] Advance Directives * Full Code (Latest Code Status on File) Date Activated Date Inactivated Comments 09/08/2023 12:13 AM Care Teams Cost Manager Relationship Specialty Start Date End Date Ibeth Lassiter MD [address] [place] [address] PCP - General Family Medicine 09/07/23
--- OUTSIDE RECORDS SUMMARY | 2024-09-26 15:06 | XMS_ITS | Encounter Summary ---
Author Organization [employer] Address 75 [facility] 7t [place] [address] Care Team Providers Care Drawbridge Operator Name Role Phone Ibeth Lassiter MD Primary Care Provider [phone] Reason for Visit * Reason Onset Date Comments Med Refill 02/07/2024 Encounter Details Date Type Department Care Team (Late st Contact Info) Description 02/07/2024 Refill [facility] CHC MED & PEDS [address] [place] [address] Ibeth Lassiter MD [address] [place] [address] Acute necrotizing pancreatitis Social History Tobacco Use [...] Description 10/13/2024 11:00 AM EDT Office Visit [facility] MED & PEDS [address] [place] [address] Ibeth Lassiter MD [address] [place] [address] documented as of this encounter Visit Diagnoses Diagnosis Acute necrotizing pancreatitis Acute pancreatitis documented in this encounter Additional Health Concerns Assessment Noted Time PHQ-9 Depression Total Score: 24 024 3:55 PM EDT documented as of this encounter Care Teams Drawbridge Operator Relationship Specialty Start Date End Date Ibeth Lassiter MD [address] [place] [address] PCP - General Family Medicine 12/16/21 documented as of this encounter
--- OUTSIDE RECORDS SUMMARY | 2024-09-26 15:06 | XMS_ITS | Encounter Summary ---
Author Organization [employer] Address 75 [facility] 7t [place] [address] Care Team Providers Care Senior Physical Therapist Name Role Phone Ibeth Lassiter MD Primary Care Provider Reason for Visit * Reason Onset Date Comments Med Refill 11/05/2023 Encounter Details Date Type Department Care Team ([facility] st Contact Info) Description 11/05/2023 Telephone [facility] MEDICINE [address] [place] [address] Ibeth Lassiter MD [address] [place] [address] Med Refill Social History Tobacco Use Types [...] 50 MG capsule To be sent to: [id number] [place], [place] - [address] [place] [address] [facility] documented in this encounter Plan of Treatment Upcoming Encounters Date Type Department Care Team ([facility] st Contact Info) Description 10/13/2024 11:00 AM EDT Office Visit [facility] CHC MED & PEDS [address] [place] [address] Ibeth Lassiter MD [address] [place] [address] documented as of this encounter Visit Diagnoses Not on filedocumented in this encounter Additional Health Concerns Assessment Noted Time PHQ-9 Depression Total Score: 14 023 10:26 AM EDT documented as of this encounter Care Teams Senior Physical Therapist Relationship Specialty Start Date End Date Ibeth Lassiter MD [address] [place] [address] PCP - General Family Medicine 12/16/21 documented as of this encounter
--- OUTSIDE RECORDS SUMMARY | 2024-09-26 15:06 | XMS_ITS | Encounter Summary ---
Author Organization [employer] Address [address] [facility] 7t [place] [address] Care Team Providers Care Recruitment Specialist Name Role Phone Ibeth Lassiter MD Primary Care Provider [phone] Reason for Visit * Reason Comments Med Refill Encounter Details Date Type Department Care Team ([facility] st Contact Info) Description 08/11/2024 Refill [facility] CHC MED & PEDS [address] [place] [address] Ibeth Lassiter MD [address] [place] [address] Social History Tobacco Use Types Packs/Day Years [...] Description 10/13/2024 11:00 AM EDT Office Visit [facility] CHC MED & PEDS [address] [place] [address] Ibeth Lassiter MD [address] [place] [address] documented as of this encounter Visit Diagnoses Not on filedocumented in this encounter Additional Health Concerns Assessment Noted Time PHQ-9 Depression Total Score: 22 025 10:04 AM EST documented as of this encounter Care Teams Recruitment Specialist Relationship Specialty Start Date End Date Ibeth Lassiter MD [address] [place] [address] PCP - General Family Medicine 12/16/21 documented as of this encounter
--- OUTSIDE RECORDS SUMMARY | 2024-09-26 15:06 | XMS_ITS | Encounter Summary ---
Author Organization [employer] Address 75 [facility] 7t [place] [address] Care Team Providers Care Skid Adzer Name Role Phone Ibeth Lassiter MD Primary Care Provider [phone] Reason for Visit * Reason Onset Date Comments Med Refill 12/14/2023 Encounter Details Date Type Department Care Team (Late st Contact Info) Description 12/14/2023 Refill [facility] CH[facility] MED & PEDS [address] [place] [address] Ibeth Lassiter MD [address] [place] [address] Acute necrotizing pancreatitis Social History Tobacco Use [...] Description 10/13/2024 11:00 AM EDT Office Visit [facility] MED & PEDS [address] [place] [address] Ibeth Lassiter MD [address] [place] [address] documented as of this encounter Visit Diagnoses Diagnosis Acute necrotizing pancreatitis Acute pancreatitis documented in this encounter Additional Health Concerns Assessment Noted Time PHQ-9 Depression Total Score: 24 024 3:55 PM EDT documented as of this encounter Care Teams Skid Adzer Relationship Specialty Start Date End Date Ibeth Lassiter MD [address] [place] [address] PCP - General Family Medicine 12/16/21 documented as of this encounter
--- OUTSIDE RECORDS SUMMARY | 2024-09-26 15:06 | XMS_ITS | Encounter Summary ---
Author Organization [employer] Address 75 [facility] 7t [place] [address] Care Team Providers Care Surgery Consultant Name Role Phone Ibeth Lassiter MD Primary Care Provider [phone] Reason for Visit * Reason Onset Date Comments Call Back Request 11/06/2023 Encounter Details Date Type Department Care Team ([facility] st Contact Info) Description 11/06/2023 Telephone [facility] CHC MED & PEDS [address] [place], [place] [address] Ibeth Lassiter MD [address] [place] [address] Call Back Request Social History Tobacco Use [...] to discuss removal. Please contact pt at [phone] documented in this encounter Plan of Treatment Upcoming Encounters Date Type Department Care Team (Late st Contact Info) Description 10/13/2024 11:00 AM EDT Office Visit [facility] MED & PEDS [address] [place] [address] Ibeth Lassiter MD [address] [place] [address] documented as of this encounter Visit Diagnoses Not on filedocumented in this encounter Additional Health Concerns Assessment Noted Time PHQ-9 Depression Total Score: 14 023 10:26 AM EDT documented as of this encounter Care Teams Surgery Consultant Relationship Specialty Start Date End Date Ibeth Lassiter MD [address] [place] [address] PCP - General Family Medicine 12/16/21 documented as of this encounter
--- OUTSIDE RECORDS SUMMARY | 2024-09-26 15:06 | XMS_ITS ---
Author Name [facility] Organization Unknown Encounters Encounter Type Encounter Reason Primary Diagnosis Location Date Inpatient Acute pancreatitis with uninfected necrosis, unspecified Acute pancreatitis with uninfected necrosis, unspecified [facility] 09/07/2023 Ambulatory [facility] 09/07/2023 Ambulatory [place] [facility] 09/07/2023 Care Team Organization Name Specialty Phone Email Start Date End Da [facility] Primary Care 09/08/2023 [facility] 09/08/2023 08/20/2024 [facility] 09/08/2023
--- OUTSIDE RECORDS SUMMARY | 2024-09-26 15:06 | XMS_ITS | Encounter Summary ---
Author Organization [employer] Address 75 [facility] 7t [place] [address] Care Team Providers Care Warp Drawer Name Role Phone Ibeth Lassiter MD Primary Care Provider [phone] Reason for Visit * Reason Onset Date Comments Med Refill 02/15/2024 Encounter Details Date Type Department Care Team (Late st Contact Info) Description 02/15/2024 Refill [facility] CHC MED & PEDS [address] [place] [address] Ibeth Lassiter MD [address] [place] [address] Acute necrotizing pancreatitis Social History Tobacco Use [...] Description 10/13/2024 11:00 AM EDT Office Visit [facility] PEDS [address] [place] [address] Ibeth Lassiter MD [address] [place] [address] documented as of this encounter Visit Diagnoses Diagnosis Acute necrotizing pancreatitis Acute pancreatitis documented in this encounter Additional Health Concerns Assessment Noted Time PHQ-9 Depression Total Score: 24 024 3:55 PM EDT documented as of this encounter Care Teams Warp Drawer Relationship Specialty Start Date End Date Ibeth Lassiter MD [address] [place] [address] PCP - General Family Medicine 12/16/21 documented as of this encounter
--- OUTSIDE RECORDS SUMMARY | 2024-09-26 15:06 | XMS_ITS | Encounter Summary ---
Author Organization [employer] Address [address] [facility] [address] 7t [place] [address] Care Team Providers Care Banquet Line Cook Name Role Phone Ibeth Lassiter MD Primary Care Provider [phone] Encounter Details Date Type Department Care Team (Latest Contact Info) Description 09/26/2024 Travel Social History Tobacco Use Types Packs/Day [...] 10/13/2024 11:00 AM EDT Office Visit [facility] CHC MED & PEDS [address] [place] [address] Ibeth Lassiter MD [address] [place] [address] documented as of this encounter Visit Diagnoses Not on filedocumented in this encounter Additional Health Concerns Assessment Noted Time PHQ-9 Depression Total Score: 22 025 10:04 AM EST documented as of this encounter Care Teams Banquet Line Cook Relationship Specialty Start Date End Date Ibeth Lassiter MD [address] [place] [address] PCP - General Family Medicine 12/16/21 documented as of this encounter
--- OUTSIDE RECORDS SUMMARY | 2024-09-26 15:06 | XMS_ITS ---
Author Organization [employer] Address [address] [place] [address] 7 [place] [address] Care Team Providers Care Asp Net Software Developer Name Role Phone Ibeth Lassiter MD Primary Care Provider [phone] CM Complex Status:Outreach In Progress (Enrolling) Start date:09/09/2024 Enrollment reason:ADT Feed Overview ED- Pt went to [facility] ED on 09/08/24. Case Team Name Relationship Phone Doreen Johnston RN Registered Nurse(Responsible S taff) Continued Care and Services Coordination
--- OUTSIDE RECORDS SUMMARY | 2024-09-26 15:06 | XMS_ITS ---
Author Organization [employer] Address [address] [place] [address] Care Team Providers Care Stitch Bonding Machine Operator Name Role Phone Ibeth Lassiter MD Primary Care Provider [phone] CHW Complex Status:Outreach In Progress (Enrolling) Start date:09/09/2024 Enrollment reason:ADT Feed Overview ED- Pt went to [facility] ED on 09/08/24. Case Team Name Relationship Phone Rain Kauffman (Responsible Staff) Continued Care and Services Coordination
--- OUTSIDE RECORDS SUMMARY | 2024-09-26 15:06 | XMS_ITS | Data Portability ---
Author Organization [facility] Address [address] [place] [address] Care Team Providers Care Classified Advertising Supervisor Name Role Phone RHONDA GASTON Primary Care Provider Assessment No assessment recorded. Plan of Treatment Reminders Order Date Submit Date Provider Last Modified By Organization Details Last Modified Time Details Appointments None recorded. Lab None recorded. Referral None recorded. Procedures None recorded. Surgeries None recorded. Imaging None recorded. Medication Orders valacyclov ir 1 gram tablet 2018 019 INTERFACE [id number], [address] [place], [address], 9 16:29:52 ranitidine 150 mg tablet 2018 019 INTERFACE [id number], [address] [place], [address], 9 16:29:52 Patient TargetsNo targets recorded. Patient InstructionsNo instructions recorded. Reason for Referral None Reported. Results Created Date Observation Date Name Description Value Unit Range Abnormal Flag Note LastModifiedBy Organization Detail LastModifiedTime 11/06/1911/05/2018 drug scree n, urine ds amphetamines NEGATI VE normal Not Available [facility] [address] [place], [address], 11/05/2018 14:54:55 11/06/19 19 11/05/2018 drug scree n, urine ds barbituates NEGATI VE normal Not Available [facility] [address] [place], [address], 11/05/2018 14:54:55 11/06/1911/05/2018 drug scree n, urine ds benzodiazepi NEGATI VE normal Not Available [facility] [address] [place], [address], 11/05/2018 14:54:55 11/06/1911/05/2018 drug scree n, urine ds cannabinoid NEGATI VE normal Not Available [facility] [address] [place] [address], [address], 11/05/2018 14:54:55 11/06/1911/05/2018 drug scree n, urine ds cocaine NEGATI VE normal Not Available [facility] [address] [place] [address], [address], 11/05/2018 14:54:55 11/06/1911/05/2018 drug scree n, urine ds methadone NEGATI VE normal Not Available [facility] [address] [place] [address], [address], 11/05/2018 14:54:55 11/06/1911/05/2018 drug scree n, urine ds opiates NEGATI VE normal Not Available [facility] [address] [place], [address], 11/05/2018 14:54:55 11/06/1911/05/2018 drug scree n, urine ds oxycodone NEGATI VE normal Not Available [facility] [address] [place] [address], [address], 11/05/2018 14:54:55 11/06/1911/05/2018 drug scree n, urine ds phencyclidin NEGATI VE normal Not Available [facility] [address] [place], [address], 11/05/2018 14:54:55 11/06/1911/05/2018 drug scree n, urine ds propoxphene NEGATI VE normal Not Available [facility] [address] [place] [address], [address], 11/05/2018 14:54:55 11/10/1911/09/2018 urina lysis , dipst ick color YELLOW yellow normal Not Available [facility] [address] [place], [place] [address], [address], 11/09/2018 01:50:05 11/10/1911/09/2018 urina lysis , dipst ick appearance CLEAR clear normal Not Available [facility] [address] [place] [address], [address], 11/09/2018 01:50:05 11/10/1911/09/2018 urina lysis , dipst ick specific gravit 1.020 1.001- 1.035 normal Not Available [facility] [address] [place] [address], [address], 11/09/2018 01:50:05 11/10/1911/09/2018 urina lysis , dipst ick urine glucose TRACE neg high Not Available [facility] [address] [place] [address], [address], 11/09/2018 01:50:05 11/10/1911/09/2018 urina lysis , dipst ick urine bilirubin NEGATI VE neg normal Not Available [facility] [address] [place], [place] [address], [address], 11/09/2018 01:50:05 11/10/1911/09/2018 urina lysis , dipst ick urine ketone NEGATI VE neg normal Not Available [facility] [address] [place] [address], [address], 11/09/2018 01:50:05 11/10/1911/09/2018 urina lysis , dipst ick urine HGB 2+ neg high Not Available [facility] [address] [place] [address], [address], 11/09/2018 01:50:05 11/10/1911/09/2018 urina lysis , dipst ick urine pH 7.0 5.0-8. 0 normal Not Available [facility] [address] [place], [place] [address], [address], 11/09/2018 01:50:05 11/10/1911/09/2018 urina lysis , dipst ick urine protein TRACE( LOW) mg/dL neg normal Not Available [facility] [address] [place], [address], 11/09/2018 01:50:05 11/10/1911/09/2018 urina lysis , dipst ick urobilinogen 1.0 erlic h 0.2-1. 0 normal Not Available [facility] [address] [place], [address], 11/09/2018 01:50:05 11/10/1911/09/2018 urina lysis , dipst ick nitrite NEGATI VE neg normal Not Available [facility] [address] [place] [address], [address], 11/09/2018 01:50:05 11/10/1911/09/2018 urina lysis , dipst ick leukocyte beny NEGATI VE neg normal Not Available [facility] [address] [place] [address], [address], 11/09/2018 01:50:05 11/10/1911/09/2018 urina lysis , compl ete micro exam high 2+ MUCOU S 1+ BACTE DK FEW SQUAM OUS EPITH EL 0-4 WBC 15-25 RBC Not Available [facility] [address] [place] [address], [address], 11/09/2018 01:50:16 11/10/1911/09/2018 drug scree n, urine ds amphetamines POSITI VE normal THIS IS A SCREE ESME METHO D ONLY. THIS SPECI M[facility] TO A REFER ENCE LABOR ATORY FOR CONFI RMATI ON TESTI NG. IF THE PROVI ZINA NEEDS CONFI RMATI ON TESTI NG PLEAS E CALL THE LABOR ATORY WITHI N [address] [facility] TESTI NG. Not Available [facility] [address] [place] [address], [address], 11/09/2018 01:52:53 11/10/1911/09/2018 drug scree n, urine ds barbituates NEGATI VE normal Not Available [facility] [address] [place] [address], [address], 11/09/2018 01:52:53 11/10/1911/09/2018 drug scree n, urine ds benzodiazepi NEGATI VE normal Not Available [facility] [address] [place] [address], [address], 11/09/2018 01:52:53 11/10/1911/09/2018 drug scree n, urine ds cannabinoid NEGATI VE normal Not Available [facility] [address] [place] [address], [address], 11/09/2018 01:52:53 11/10/1911/09/2018 drug scree n, urine ds cocaine NEGATI VE normal Not Available [facility] [address] [place] [address], [address], 11/09/2018 01:52:53 11/10/1911/09/2018 drug scree n, urine ds methadone NEGATI VE normal Not Available [facility] [address] [place] [address], [address], 11/09/2018 01:52:53 11/10/1911/09/2018 drug scree n, urine ds opiates NEGATI VE normal Not Available [facility] [address] [place] [address], [address], 11/09/2018 01:52:53 11/10/1911/09/2018 drug scree n, urine ds oxycodone NEGATI VE normal Not Available [facility] [address] [place] [address], [address], 11/09/2018 01:52:53 11/10/1911/09/2018 drug scree n, urine ds phencyclidin NEGATI VE normal Not Available [facility] [address] [place] [address], [address], 11/09/2018 01:52:53 11/10/1911/09/2018 drug scree n, urine ds propoxphene NEGATI VE normal Not Available [facility] [address] [place] [address], [address], 11/09/2018 01:52:53 01/10/2001/09/2019 drug scree n, urine ds amphetamines POSITI VE normal THIS IS A SCREE ESME METHO D ONLY. THIS SPECI MEN WILL NOT BE [facility] A REFER ENCE LABOR ATORY FOR CONFI RMATI ON TESTI NG. IF THE PROVI ZINA NEEDS CONFI RMATI ON TESTI NG PLEAS E CALL THE LABOR ATORY WITHI N 24 HOURS TO REQUE [facility] TESTI NG. Not Available [facility] [address] [place] [address], [address], 01/09/2019 09:13:52 01/10/2001/09/2019 drug scree n, urine ds barbituates NEGATI VE normal Not Available [facility] [address] [place], [address], 01/09/2019 09:13:52 01/10/2001/09/2019 drug scree n, urine ds benzodiazepi NEGATI VE normal Not Available [facility] [address] [place] [address], [address], 01/09/2019 09:13:52 01/10/2001/09/2019 drug scree n, urine ds cannabinoid NEGATI VE normal Not Available [facility] [address] [place], [address], 01/09/2019 09:13:52 01/10/2001/09/2019 drug scree n, urine ds cocaine NEGATI VE normal Not Available [facility] [address] [place], [address], 01/09/2019 09:13:52 01/10/2001/09/2019 drug scree n, urine ds methadone NEGATI VE normal Not Available [facility] [address] [place], [address], 01/09/2019 09:13:52 01/10/2001/09/2019 drug scree n, urine ds opiates NEGATI VE normal Not Available [facility] [address] [place], [address], 01/09/2019 09:13:52 01/10/2001/09/2019 drug scree n, urine ds oxycodone NEGATI VE normal Not Available [facility] [address] [facility] [place], [address], 01/09/2019 09:13:52 01/10/2001/09/2019 drug scree n, urine ds phencyclidin NEGATI VE normal Not Available [facility] [address] [place], [address], 01/09/2019 09:13:52 01/10/2001/09/2019 drug scree n, urine ds propoxphene NEGATI VE normal Not Available [facility] [address] [place], [address], 01/09/2019 09:13:52 01/10/2001/09/2019 CBC w/ auto diff WBC 9.0 10*3/ uL 3.5-11 .0 normal Not Available [facility] [address] [place], [address], 01/09/2019 09:50:14 01/10/2001/09/2019 CBC w/ auto diff RBC 3.78 10*6/ uL 3.60-4 .80 normal Not Available [facility] [address] [place], [address], 01/09/2019 09:50:14 01/10/2001/09/2019 CBC w/ auto diff HGB 7.7 g/dL 12.0-1 6.0 low Not Available [facility] [address] [place], [address], 01/09/2019 09:50:14 01/10/2001/09/2019 CBC w/ auto diff HCT 26.3 % 36-48 low Not Available [facility] [address] [place] [address], [address], 01/09/2019 09:50:14 01/10/2001/09/2019 CBC w/ auto diff MCV 69.6 fL 79-98 low Not Available [facility] [address] [place] [address], [address], 01/09/2019 09:50:14 01/10/2001/09/2019 CBC w/ auto diff MCH 20.4 pg 25.4-3 4.6 low Not Available [facility] [address] [place] [address], [address], 01/09/2019 09:50:14 01/10/2001/09/2019 CBC w/ auto diff MCHC 29.3 g/dL 30-36 low Not Available [facility] [address] [place] [address], [address], 01/09/2019 09:50:14 01/10/20 19 01/09/2019 CBC w/ auto diff RDW 19.2 % 11.5-1 4.5 high Not Available [facility] [address] [place] [address], [address], 01/09/2019 09:50:14 01/10/2001/09/2019 CBC w/ auto diff plt 283 10*3/ uL 150-40 0 normal Not Available [facility] [address] [place] [address], [address], 01/09/2019 09:50:14 01/10/2001/09/2019 CBC w/ auto diff abs neut count 5.9 10*3/ uL 1.5-7. 5 normal Cauti on: Inter preta tion of ANC resul ts witho ut inclu clark of the WBC diffe renti al resul ts may lead to cresencio eous diagn osis; for examp le [facility] ng myelo proli ferat casey, OR lymph oprol ifera tive disor ders Not Available [facility] [address] [place] [address], [place], [address], 01/09/2019 09:50:14 01/10/2001/09/2019 CBC w/ auto diff abs lymph count 2.5 10*3/ uL 0.8-4. 8 normal Not Available [facility] [address] [place], [address], 01/09/2019 09:50:14 01/10/2001/09/2019 CBC w/ auto diff abs mono count 0.5 10*3/ uL 0.4-1. 3 normal Not Available [facility] [address] [place], [address], 01/09/2019 09:50:14 01/10/2001/09/2019 CBC w/ auto diff abs eo count 0.1 10*3/ uL 0.0-0. 8 normal Not Available [facility] [address] [place] [address] [place], [address], 01/09/2019 09:50:14 01/10/2001/09/2019 CBC w/ auto diff abs baso count 0.0 10*3/ uL 0.0-0. 6 normal Not Available [facility] [address] [place] [address] [place], [address], 01/09/2019 09:50:14 01/10/2001/09/2019 CBC w/ auto diff abs imm gran CT 0.0 10*3/ uL 0.0-0. 6 normal Not Available [facility] [address] [facility] [place], [address], 01/09/2019 09:50:14 01/10/2001/09/2019 CBC w/ auto diff neut% 66.1 % 35-66 high Not Available [facility] [address] [place], [address], 01/09/2019 09:50:14 01/10/2001/09/2019 CBC w/ auto diff imm gran % 0.2 % 0-2.0 normal Not Available [facility] [address] [place], [address], 01/09/2019 09:50:14 01/10/2001/09/2019 CBC w/ auto diff lymph% 27.6 % 25-45 normal Not Available [facility] [address] [place], [place] [address], [address], 01/09/2019 09:50:14 01/10/2001/09/2019 CBC w/ auto diff mono% 5.1 % 0-13 normal Not Available [facility] [address] [place], [address], 01/09/2019 09:50:14 01/10/2001/09/2019 CBC w/ auto diff eo% 0.6 % 0-8 normal Not Available [facility] [address] [place], [place] [address], [address], 01/09/2019 09:50:14 01/10/2001/09/2019 CBC w/ auto diff ba% 0.4 % 0-1 normal Not Available [facility] [address] [place], [place] [address], [address], 01/09/2019 09:50:14 01/10/2001/09/2019 CBC w/ auto diff RBC morph normal MODER ATE ANISO SLIGH T MICRO CYTOS IS SLIGH T HYPOC HROMI A Not Available [facility] [address] [place], [place] [address], [address], 01/09/2019 09:50:14 01/10/2001/09/2019 type + scree n, serum blood type A NEGATI VE normal Not Available [facility] [address] [place] [address] [place], [address], 01/09/2019 10:22:11 01/10/2001/09/2019 type + scree n, serum antibody screen NEGATI VE normal Not Available [facility] [address] [place], [address], 01/09/2019 10:22:11 01/10/2001/09/2019 lab resul t results Not Available [facility] [address] [place], [address], 01/12/2019 23:59:35 01/10/2001/11/2019 amphe tamin e (GC/M S), urine amphetamines Negati ve cutoff =500 normal Not Available [facility] [address] [place], [address], 01/13/2019 17:04:24 01/10/20 19 01/11/2019 amphe tamin [...] expec bita outco me. ([email or web address] or call toll- free [phone]) Drug brand s, if liste d herei n, are trade singh of their respe ctive sports instructor s. Perfo rmed at: [facility] [place] [facility] [address], [place] [address] Lab Direc tor: Denny Peck MD, Phone : [phone] Not Available [facility] [address] [place], [address], 01/13/2019 17:04:24 01/12/20 19 01/11/2019 hemog lobin + hemat ocrit , blood HGB 5.6 g/dL 12.0-1 6.0 panic low CRITI LIUDMILA REPOR T [place]Y D TO LARA Teague BY [facility] DATE 01/11 TIME 0753 REPOR T AND PATIE NT IDENT IFICA TION READ BACK TO CONFI RM ACCUR ACY Not Available [facility] [address] [place], [address], 01/11/2019 07:55:53 01/12/2001/11/2019 hemog lobin + hemat ocrit , blood HCT 19.8 % 36-48 panic low Not Available [facility] [address] [place] [address], [address], 01/11/2019 07:55:53 01/12/20 19 01/11/2019 abo group + rh type, blood blood type A NEGATI VE normal Not Available [facility] [address] [place] [address], [address], 01/11/2019 09:31:11 01/12/20 19 01/11/2019 antib donn scree n, serum or plasm a antibody screen NEGATI VE normal Not Available [facility] [address] [place] [address], [address], 01/11/2019 09:31:14 01/12/20 19 01/11/2019 cell scree n, blood scrn res. POSITI VE negati ve high THIS POSIT CASEY SCREE N WILL BE S[facility], FOR QUANT ITATI ON BY [facility] MAMIE- BETKE TEST. THE PROPE R DOSE OF RHOGA M FOR THIS PATIE NT WILL BE CALCU LATED FROM THE KLE MAMIE- BETKE RESUL T. Not Available [facility] [address] [place] [address], [address], 01/11/2019 09:31:17 01/12/20 19 01/11/2019 Rh immun e globu yonathan scree esme rhogam TRANSF USED PRODUC T: RH IMMUNE GLOBUL IN COUNT: 2 Not Available [facility] [address] [place] [address], [address], 01/11/2019 17:05:17 01/12/20 19 01/12/2019 hemog lobin F (hbf) , blood kleihauer betke SENT TO [facility] normal RESUL TS FROM [facility] IAL: 3 CELLS /1000 RBC'S ESTIM ATED BLEED = 15 ML Not Available [facility] [address] [place] [address], [address], 01/12/2019 07:04:50 Result Notes None recorded. Problems Name Problem SNOMED Code Status Onset Date Resolution Date Notes Provider Name and Address Organization Details Recorded Time Abdomina l pain 91408535 Completed 12/10/2018 EL Simms, [facility] 9 11:17:23 Cyst of ovary 59468405 Completed 12/10/2018 h/o ov cysts EL Simms, [facility] 9 11:17:54 Herpes simplex 55634439 Active Not Available [facility] 3 03:06:51 Vaginiti s and vulvovag initis Completed 12/10/2018 EL Simms, [facility] 9 11:17:20 Threaten ed miscarri age 53480506 Completed 12/10/2018 EL Simms, [facility] 9 11:17:48 Cyst of ovary 71746360 Completed h/o ov cysts Corina Pamelavalerie [facility] 9 13:12:24 Teenage pregnanc y 424417926 Completed Enrolled in [employer] Corina Pamelavalerie [facility] 9 13:12:24 Depressi ve disorder 00488874 Completed h/o suicidal ideation s Corina Pamelavalerie [facility] 9 13:12:24 History of substanc e abuse 293229853 Completed ER visit 2 Corina laughlin [facility] 9 13:12:24 History of RhD negative 255664559 Completed A neg Corina Pamelavalerie [facility] 9 13:12:24 Herpesvi bahman infectio n 41348030 Completed Prophyla xis 36 wks Corinapaula laughlin [facility] 9 13:12:24 Gastroes ophageal reflux disease 359366225 Active Corinapaula laughlin [facility] 9 13:12:24 Gastroes ophageal reflux disease 634879187 Completed Corina laughlin [facility] 9 13:12:24 Proteinu dk 25633410 Active Corina laughlin, [facility] 9 13:12:24 Proteinu dk 31524521 Completed Corina laughlin [facility] 9 13:12:24 Anemia 880716081 Active Corina laughlin, [facility] 9 13:12:24 Anemia 560377908 Completed Corina laughlin [facility] 9 13:12:24 Abnormal vaginal bleeding 049093730 Completed 12/10/2018 EL Simms, [facility] 9 11:17:45 Pregnanc y 27343533 Completed 201801/13/2019 Melbajono Villagran truman [facility] 9 08:52:02 Hypereme sis gravidar um 93734319 Completed 2018 [facility] 08:[facility] Genital herpes simplex 90474391 Completed 2018 2012- only had initial outbreak Melba Tyshawn truman [facility] 9 08:51:56 Postpart um hemorrha ge 85479763 Completed 2018 2014- states she required blood transfus ion. Melba Villagran truman, [facility] 9 08:51:56 Asthma 598721945 Completed 2018 Melba Villagran truman [facility] 9 08:51:56 RhD negative 991276952 Completed 2018 received rhogam 07/04/18/ will need at 28 weeks as well. Melba laughlin [facility] 9 08:51:56 Group B Streptoc occus carrier [id number] 03 Completed in urine - no culture needed at 36wks. Melba Villagran truman [facility] 9 08:51:56 History of depressi on 708640939 Completed 2018 Melba laughlin [facility] 9 08:51:56 History of anxiety state 531303269 Completed 2018 Melba laughlin [facility] 9 08:51:56 Screenin g for drug of abuse in urine specimen positive 184770329 Completed 2018 cannabin oid - 51-A filed Melba laughlin [facility] 9 08:51:56 Problem Notes None recorded. Procedures Surgical History Date Name Laterality Status Provider Name and Address Organization Details Recorded Time 9 Date of Last Pap Smear completed Lin buckley [facility] 2018 07:52:28 5 Nexplanon / Implanon Removal completed Tomi Mckinnon MD [address] [place], [place] [address], [address], [facility] 08/21/2014 12:48:49 5 Nexplanon Insertion completed Tomi Mckinnon MD [address] [place], [place] [address], [address], [facility] 07/16/2014 09:42:00 4 established patient counseling (15-24 minutes) completed Alejandro Gomez MD [address] [place] [address] [place], [address], [facility] 09/16/2013 08:15:58 3 established patient counseling (15-24 minutes) completed Alejandro Gomez MD [address] [place], [place] [address], [address], [facility] 10/21/2012 14:53:03 3 established patient counseling (15-24 minutes) completed Alejandro Gomez MD [address] [place] [address] [place], [phone], [facility] 08/19/2012 15:31:26 03/07/201 3 established patient counseling (15-24 minutes) completed Alejandro Gomez MD [address] [place], [address], [facility] 08/12/2012 09:27:40 2 established patient counseling (15-24 minutes) completed Alejandro Gomez MD [address] [place], [address], [facility] 09/06/2011 16:24:40 1 established patient counseling (15-24 minutes) completed Alejandro Gomez MD [address] [place] [address], [phone], [facility] 05/08/2011 15:36:26 none completed Candida Mcdaniel [facility] 07/29/2012 14:46:50 Imaging Results None recorded. Procedure Notes None recorded. Medical Equipment None Reported. Allergies Allergen ID Allergen Name Allergen Category Reaction Reaction Severity Criticality Documentation Date Start Date Code Code System Note Provider Name and Address Organization Details Recorded Time 324713 oxycodone medicatio n respirato ry distress Not available Not available 09/22/2013 7804 RxNorm dizzy Ethel Castro LPN [facility] 4 09:23:47 36136 codeine medicatio n respirato ry distress Not available Not available 03/06/2011 2670 RxNorm dizzy Not Available [facility] 06:32:06 80046 Product containin g penicilli n (product) medicatio n respirato ry distress Not available Not available 08/30/2011 90106 8001 SNOMED dizzy Ligia Gay RN [facility] 2 15:28:23 Medications Name Sig Start Date [...] Address Organization Details Last Updated DateTime 12/03/2018 56871.01987 g Tao Junior MD [place] - [facility] 12/03/2018 14:46:40 Date Recorded Systolic blood pressure Diastolic blood pressure Provider Name and Address Organization Details Last Updated DateTime 12/03/2018 110 mm[Hg] 60 mm[Hg] Not Available [facility] Record 12/03/2018 14:34:59 Date Recorded Body weight Provider Name an d Address Organization Details Last Updated DateTime 12/17/2018 93540.83332 g Liezl Irisari, [facility] 12/31/2018 14:18:46 Date Recorded Systolic blood pressure Diastolic blood pressure Provider Name and Address Organization Details Last Updated DateTime 12/17/2018 110 mm[Hg] 68 mm[Hg] Not Available [facility] [place] 12/17/2018 16:09:08 Date Recorded Body weight Provider Name an d Address Organization Details Last Updated DateTime 12/24/2018 [id number] jeremías Junior MD [facility] 12/31/2018 14:18:47 Date Recorded Systolic blood pressure Diastolic blood pressure Provider Name and Address Organization Details Last Updated DateTime 12/24/2018 116 mm[Hg] 60 mm[Hg] Not Available [facility] 12/24/2018 15:34:53 Date Recorded Body weight Provider Name an d Address Organization Details Last Updated DateTime 12/31/2018 [id number] jeremías [facility] 12/31/2018 14:18:47 Date Recorded Systolic blood pressure Diastolic blood pressure Provider Name and Address Organization Details Last Updated DateTime 12/31/2018 102 mm[Hg] 68 mm[Hg] Not Available [facility] 12/31/2018 13:53:02 Date Recorded Body weight Provider Name an d Address Organization Details Last Updated DateTime 01/07/2019 [id number] jeremías [facility] 01/07/2019 14:10:01 Date Recorded Systolic blood pressure Diastolic blood pressure Provider Name and Address Organization Details Last Updated DateTime 01/07/2019 124 mm[Hg] 80 mm[Hg] Not Available [facility] Record 01/07/2019 13:48:46 Social History Question Answer Notes LastModified by Organizat ion Details LastModified Time Tobacco Smoking Status Current Every Day Smoker quit [facility] 04/06/2020 03:15:48 What Is Your Level Of Alcohol Consumption? None [id number] Information not available 04/06/2020 Are You A Past Or Present Victim Of Abuse? No Information not available 04/19/2011 Illicit Drugs No H/o MJ Use, None Recently Information not available 04/19/2011 Marital Status Single Steady Partner- Stationed In [place] At The Moment [email or web address] Information not available 09/22/2013 What Was The Date Of Your Most Recent Tobacco Screening? 06/28/2018 [id number] Information not available 04/06/2020 Are You Sexually Active? No Not Currently [id number] Information not available 04/06/2020 At What Age Did You Start Smoking Tobacco? 15 [id number] Information not available 04/06/2020 How Much Tobacco Do You Smoke? No [id number] Information not available 04/06/2020 How Many Years Have You Smoked Tobacco? 3 [id number] Information not available 04/06/2020 Sex: Unknown Functional [...] available 10/02/2013 00:03:59 Medical History Condition Response bladder / kidney infection(s) N varicosities N GERD / reflux N frequent headaches/migraines Y heart problems, murmurs N other Y anxiety disorder Y thyroid disease or other endocrine probl ems N cancer N high blood pressure N breast problem Y psychiatric illness Y osteopenia/osteoprosis N anemia or bleeding problems N defects or inherited disease N infertility N lung disease Y endometriosis N hepatitis N Gynecological History Statement/Question Response Date of LMP [...] SNOMED-CT Code Diagnosis ICD10 Code Diagnosis Note [id number] [facility] [address] [place] [address] 03/06/2011 13:47:52 03/06/2011 15:00:[id number] [facility] [place] [address] [place] [address] 05/08/2011 14:05:17 05/08/2011 15:43:[id number] [facility] [address] [place] [address] 08/30/2011 15:18:10 08/30/2011 16:14:[id number] [facility] [place] [address] [place] [address] 09/06/2011 15:28:53 09/06/2011 16:30:26 [id number] Gomez MD [facility] [place] [address] [place] [address] 07/29/2012 14:14:28 08/01/2012 08:20:02 [id number] Gomez MD [facility] [place] [address] [place] [id number] 08/08/2012 15:05:41 08/12/2012 10:06:18 [id number] Gomez MD [facility] [place] [address] [place] [address] 08/19/2012 15:06:29 08/19/2012 16:30:58 [id number] Gomez MD [facility] [place] [address] [place] [address] 10/21/2012 14:38:06 10/21/2012 15:02:32 [id number] MA [facility] [address] [place] [address] 09/05/2013 13:48:05 09/05/2013 15:08:50 Routine care [id number] Threatened miscarriage [id number] [facility] [address] [place] [address] [place] [address] 09/11/2013 15:11:22 09/16/2013 08:54:20 [id number] Threatened miscarriage [id number] Tita Mayer [facility] [address] [place] [address] [place] [address] 09/22/2013 08:56:23 09/23/2013 08:33:01 Primigravida [id number] * reviewed packet from OB * discuss nutrition & exercise * seatbelt use * obtain medical & ob history * order initial/op tional labs * discuss genetic testing * discuss/ad neurologist flue vaccine - prn * refer to nutrition - prn * refer to health families - prn * refer to WIC - prn * complete & send insurance precert - prn ([facility], [facility], [facility]) * order early u/s - prn * refer to SS - prn (options) * refer to OBS (early class) [id number] Ethel Castro LPN [facility] [address] [place] [address] [place] [id number] 10/01/2013 11:07:06 10/01/2013 13:07:23 Primigravida [id number] Specialize d medical examination [id number] [facility] [id number] Tita Mayer [facility] [address] [place] [address] [place] [address] 10/29/2013 11:19:36 10/29/2013 11:54:[id number] [facility] [address] [place] [address] [place] [id number] 11/13/2013 14:22:09 11/13/2013 14:30:30 [id number] Candida Mcdaniel [facility] [address] [place] [address] [place] [address] 11/26/2013 10:41:34 11/26/2013 13:02:[id number] [facility] [address] [place] [address] [place] [address] 12/24/2013 10:32:37 12/24/2013 13:39:55 Primigravida [id number] Holly Jose Angel [facility] [address] [place] [address] 01/22/2014 14:44:06 01/22/2014 15:52:56 Primigravida [id number] * reviewed packet from OB * discuss nutrition & exercise * seatbelt use * obtain medical & ob history * order initial/op tional labs * discuss genetic testing * discuss/ad neurologist flue vaccine - prn * refer to nutrition - prn * refer to health families - prn * refer to WIC - prn * complete & send insurance precert - prn ([facility], [facility]) * order early u/s - prn * refer to SS - prn (options) * refer to OBS (early class) Routine an tenatal care [id number] Vesta Lopez [facility] [address] [place] [address] 02/12/2014 13:44:59 02/12/2014 14:37:26 Routine care [id number] [address]ita Mayer CMA [facility] [address] [place] [address] 02/16/2014 13:15:11 02/16/2014 15:00:56 Pain in pelvis 45592871 Rhesus isoimmunization with problem [id number] Sarahi Perez [facility] [address] [place] [address] 02/26/2014 14:05:38 02/27/2014 09:49:35 Primigravida [id number] Routine an tenatal care 887148540 Gastroesop hageal reflux disease [id number] Zamzam Calix, ALISA [facility] [address] [place] [address] 7 03/09/2014 14:14:11 03/09/2014 14:48:50 Primigravida [id number] Confirm classesCon firm pediatrici anCircumci clark informatio n [id number] Melba Pierson'Brien [facility] [address] [place] [address] [place] [address] 03/23/2014 14:23:28 03/24/2014 08:48:[id number] [facility] [address] [place] [address] [place] [address] 04/06/2014 15:14:35 04/08/2014 09:34:26 Primigravida [id number] GBS informatio n given Contracept ion discussed and informatio n given Review signs of labor [id number] [facility] [address] [place] [address] [address] 04/13/2014 11:21:11 04/13/2014 13:38:55 Primigravida [id number] Confirm classesCon firm pediatrici anCircumci clark informatio n [id number] [facility] [address] [place] [address] 04/20/2014 13:36:12 04/20/2014 15:15:12 Primigravida [id number] GBS informatio n given Contracept ion discussed and informatio n given Review signs of labor [id number] [facility] [address] [place], [place] [address] [address] 04/27/2014 13:55:22 04/28/2014 09:23:06 Primigravida [id number] Laurita [facility] [address] [place], [place] [address] [address] 05/04/2014 13:54:43 05/04/2014 16:20:58 Primigravida 487473873 GBS informatio n given Contracept ion discussed and informatio n given Review signs of labor Routine an tenatal care [id number] Tomi Mckinnon MD [facility] [address] [place], [place] [address] [address] 05/12/2014 14:04:25 05/12/2014 14:49:10 Primigravida [id number] [facility] [address] [place], [place] [address] [address] 07/08/2014 13:07:33 07/08/2014 14:23:[id number] [facility] [address] [place] [address] [place] [id number] 07/16/2014 08:58:36 07/22/2014 09:48:23 Insertion of subcutaneous contraceptive 639449047 [id number] Carito Wiley [facility] [address] [place] [address] [place] [address] 08/21/2014 11:27:48 08/24/2014 08:13:23 Subcutaneous contraceptive implant present 758835733 Uses trans dermal contraception 068832604 [id number] Ligia Gay RN [facility] [address] [place] [address] [place] [id number] 01/15/2015 14:57:18 01/19/2015 14:26:46 Abnormal vaginal bleeding 440533976 [id number] Tao Junior MD [facility] [address] [place] [address] [place] [address] 06/28/2018 12:52:25 07/09/2018 11:49:46 Routine care 564974278 Z34.81 * reviewed packet from OB * discuss nutrition & exercise * seatbelt use * obtain medical & ob history * order initial/op tional labs * discuss genetic testing * discuss/ad neurologist flu vaccine - prn * refer to nutrition - prn * refer to health families - prn * refer to WIC - prn * complete & send insurance precert - prn ([facility], [facility]) * order early u/s - prn * refer to SS - prn (options) * refer to OBS (early class) Hyperemesi s gravidarum 49415884 O21.[id number] Junior MD [facility] [address] [place] [address] [place] [address] 07/12/2018 14:03:12 07/12/2018 15:27:48 Routine care 938346883 Z34.81 * reviewed packet from OB * discuss nutrition & exercise * seatbelt use * obtain medical & ob history * order initial/op tional labs * discuss genetic testing * discuss/ad neurologist flu vaccine - prn * refer to nutrition - prn * refer to health families - prn * refer to WIC - prn * complete & send insurance precert - prn ([facility], [facility]) * order early u/s - prn * refer to SS - prn (options) * refer to OBS (early class) Screening for malignant neoplasm of cervix 744754994 Z12.4 Specialize d medical examination 26658095 Z11.8 Gestation period, 12 weeks 72533397 Z3A.12 hear t rate not observed 524387808 O76 [id number] Tomi Mckinnon MD [facility] [address] [place] [address] 08/09/2018 14:07:19 08/09/2018 15:28:23 Routine care 316346194 Z34.82 Gestation period, 17 weeks 21814244 Z3A.17 Gestation period, 18 weeks 93453377 Z3A.18 [id number] Soto MD [facility] [address] [address] 08/23/2018 08:17:01 08/23/2018 11:38:39 Routine care 711844189 Z34.82 Gestation period, 19 weeks 02897415 Z3A.19 [id number] [address] Mckinnon MD [facility] [address] [address] 09/10/2018 14:58:12 09/11/2018 11:55:57 Routine care 892420788 Z34.82 Gestation period, 21 weeks 31482220 Z3A.21 [id number] Alejandro Gomez MD [facility] [address] [place] [address] 10/08/2018 14:56:26 10/08/2018 15:50:04 Gestation period, 26 weeks 90833809 Z3A.26 Routine an tenatal care 122617221 Z34.82 Gestation period, 25 weeks 81874687 Z3A.25 [id number] Tomi Mckinnon MD [facility] [address] [address] 10/29/2018 11:03:01 10/29/2018 15:56:02 Blood group B Rh(D) negative 549759291 Z67.21 RhD negative 955332959 Z 01.83 Routine an tenatal care 198542326 Z34.83 Gestation period, 28 weeks 98018930 Z3A.28 [id number] Tomi Mckinnon MD [facility] [address] [place] [address] [address] 10/29/2018 11:55:42 10/29/2018 15:25:19 Vaginal discharge 965305730 N89.8 see Nurse visit same day for orders [id number] Alejandro Gomez MD [facility] [address] [place] [address] 11/05/2018 13:41:34 11/05/2018 16:40:05 Screening for drug of abuse in urine specimen positive 275178485 R82.5 Gestation period, 29 weeks 39536935 Z3A.29 [id number] Tomi Mckinnon MD [facility] [address] [place] [address] 7 11/19/2018 13:58:33 11/19/2018 14:48:09 Routine care 053493984 Z34.83 Gestation period, 31 weeks 00373737 Z3A.31 Administra tion of diphtheria, pertussis, and tetanus vaccine 235127341 Z23 [id number] Tao Junior MD [facility] [address] [place] [address] [address] 12/03/2018 14:21:42 12/03/2018 15:13:37 Gestation period, 33 weeks 49047832 Z3A.33 [id number] Tomi Mckinnon MD [facility] [address] [place] [address] 7 12/17/2018 15:58:04 12/17/2018 16:34:37 Routine care 129499329 Z34.83 Gestation period, 35 weeks 85068458 Z3A.35 Genital he rpes simplex 93474195 O98.313 Gastroesop hageal reflux disease 193806343 K21.9 [id number] [address]on MD [facility] [address] [place] [address] 12/24/2018 15:23:03 12/24/2018 16:23:43 Routine care 779033953 Z34.83 Gestation period, 36 weeks 01339957 Z3A.[id number] Junior MD [facility] [address] [place] [address] 7 12/31/2018 13:45:54 12/31/2018 14:24:28 Routine care 328567519 Z34.83 Gestation period, 37 weeks 87312698 Z3A.37 [id number] Junior MD [facility] [address] [place] [address] 01/07/2019 13:42:18 01/07/2019 14:15:12 Routine care 409261301 Z34.83 Gestation period, 38 weeks 54789948 Z3A.38 Health Concerns Section Related Observation LastModified by Organization Detai ls LastModified Time None Recorded Concern Status LastModified by Organization Details LastModified Time None Recorded Advance Directives Directive None Recorded Payers Encounter Date Sequence Insurance Name Policy Number Policy Kirkland Covered Member ID [place] Member ID Guarantor Name 12/03/2018 1 [place] Deepti Aguilar [id number] Deepti Aguilar 12/17/2018 1 [place] Deepti Aguilar [id number] Deepti Aguilar 12/24/2018 1 [place] Deepti Aguilar [id number] Deepti Aguilar 12/31/2018 1 [place] Deepti Aguilar [id number] Deepti Aguilar 01/07/2019 1 [place] Deepti Aguilar [id number] Deepti Aguilar OBGyn Episode Ob Episode Information Episode Created Date Number of Fetuses Patient Bloodtype Patient rh Status Prepregnancy Weight lbs Domestic Partner Domestic Partner Phone Father Name Chemistry Quality Control Analyst Status 09/23/19 14 1 A Negative 96 Mayur Jose Juan CLOSED Fetus Data First Name Last Name Admitted to NICU Weight (g) Sex Living Outcome Pediatric Complications Fetus ID Race Codes Race Delivery Type Adalyn n 3543.68 75 F Full Term 25374 Vaginal (18981) Problems Problem Notes Pt had flu vax 03/2013 Problem Name Start Date End Date Resolution Snomed Code Not e Cyst of ovary 46334268 h/o ov cysts Teenage 521429231 En rolled in [employer] Depressive disorder 17492395 h/o suicidal ideations History of substance abuse 310374624 ER visit 012 Herpesvirus infection 19936414 Prophylaxis 36 wks History of RhD negative 816636 004 A neg Gastroesophageal reflux disease 006761708 Anemia 158957741 Proteinuria 49606628 Adams Calculation Initial Adams Date Initial Exam [...] Type Weight in lbs Pre/Post Dialysis Refused 99.3410797373581 BP Diastolic BP Location Tested BP Systolic [...] & advise. Pt is already enrolled in [employer], (her HS referred her). Pt has appt in place @ [facility]. Discussed CF & ERA testing, pt will [...] Type Weight in lbs Pre/Post Dialysis Refused 99.3486892869246 BP Diastolic BP Location Tested BP Systolic [...] Type Weight in lbs Pre/Post Dialysis Refused 96.2853730965527 BP Diastolic BP Location Tested BP Systolic [...] Type Weight in lbs Pre/Post Dialysis Refused 98.7292237158997 BP Diastolic BP Location Tested BP Systolic [...] Type Weight in lbs Pre/Post Dialysis Refused 101.767477715485 BP Diastolic BP Location Tested BP Systolic [...] Type Weight in lbs Pre/Post Dialysis Refused 105.029442483401 BP Diastolic BP Location Tested BP Systolic [...] Type Weight in lbs Pre/Post Dialysis Refused 106.37490339494 BP Diastolic BP Location Tested BP Systolic [...] Type Weight in lbs Pre/Post Dialysis Refused 108.945930290396 BP Diastolic BP Location Tested BP Systolic [...] Type Weight in lbs Pre/Post Dialysis Refused 109.413172263110 BP Diastolic BP Location Tested BP Systolic BP Type 60 R arm 120 sitting Fetus Heart Rate Present A Present Fetus Movement A Yes Comments PT presents for return OB vi sit-no issues or concerns at this time- VLB// Pt missing a lot of school due to pain and continued nausea. She is requesting to go out of school and have a home grades 9 12 tutor so she can keep up with her school work. Flowsheet Date 03/23/2014 Marquez Score Blood Edema Fundus Height Fundus Units Glucose Ketones Leukocytes Nitrite Labor Signs Protein Cervic Dilation Cervic Effacement Cervic Station none 33 cm Uterine Contract ions Type Weight in lbs Pre/Post Dialysis Refused 112.513719838099 BP Diastolic BP Location Tested BP Systolic [...] Type Weight in lbs Pre/Post Dialysis Refused 117.640358673699 BP Diastolic BP Location Tested BP Systolic [...] Type Weight in lbs Pre/Post Dialysis Refused 118.182814269168 BP Diastolic BP Location Tested BP Systolic [...] Type Weight in lbs Pre/Post Dialysis Refused 119.200346071865 BP Diastolic BP Location Tested BP Systolic [...] Type Weight in lbs Pre/Post Dialysis Refused 121.264135429821 BP Diastolic BP Location Tested BP Systolic [...] Type Weight in lbs Pre/Post Dialysis Refused 124.083808550563 BP Diastolic BP Location Tested BP Systolic [...] Type Weight in lbs Pre/Post Dialysis Refused 125.373924056111 BP Diastolic BP Location Tested BP Systolic [...] Weight in lbs Pre/Post Dialysis Refused Weight 103.425352377706 BP Diastolic BP Location Tested BP Systolic [...] Domestic Partner Domestic Partner Phone Father Name Chemistry Quality Control Analyst Status 06/28/19 19 1 A Negative 107 Domestic Partner Elder Geronimo CLOSED Fetus Data First Name Last Name Admitted to NICU Weight (g) Sex Living Outcome Pediatric Complications Fetus ID Race Codes Race Delivery Type M 99513 Vaginal (32705) Problems Problem Notes Received flu vaccine this se ason. EPDS screen 15- patient states this is related to her hyperemesis symptoms, not depression.On Zantac- UDS positive for amphetamines- prob false positive Problem Name Start Date End Date Resolution Snomed Code Not e Hyperemesis gravidarum 06/28/2018 65911871 Group B Streptococcus carrier [id number] in urine - no culture needed at 36wks. Screening for drug of abuse in urine specimen positive 06/28/2018 765186258 cannabinoi d - 51-A filed hemorrhage 06/28/2018 2994359 1 2013- states she required blood transfusion. Asthma 06/28/2018 260677619 RhD negative 06/28/2018 146585127 receiv ed rhogam 07/04/18/ will need at 28 weeks as well. History of depression 07/30/2018 4531147 08 History of anxiety state 07/30/2018 594023585 Genital herpes simplex 06/28/2018 83030158 2011- only had initial outbreak Adams Calculation [...] relationship; shares custody with him. FOB in , stationed in [place]. Nutrition and expected weight gain discussed. Patient stating she is not able to keep any food/liquid down, has been to ER multiple times for hydration. Has tried samples for Bonjesta x1 week with no results. Patient consented to all routine labs. Zika virus reviewed, no plans for either to travel. Genetic testing discussed, patient interested in [id number] and Quad screen for NTD. Advised patient to review information and check insurance coverage, will have set up at [facility] if still interested. 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 Mckinnon. She would like to do [facility] genetics testing. Will order at next visit. [...] Weight in lbs Pre/Post Dialysis Refused Weight 106.89815785909 BP Diastolic BP Location Tested BP Systolic [...] Weight in lbs Pre/Post Dialysis Refused Weight 108.614429702897 BP Diastolic BP Location Tested BP Systolic [...] Weight in lbs Pre/Post Dialysis Refused Weight 113.913159361880 BP Diastolic BP Location Tested BP Systolic [...] Weight in lbs Pre/Post Dialysis Refused Weight 117.582820545150 BP Diastolic BP Location Tested BP Systolic [...] timing UCs. Reports weeks of leakage . Bolt Man declined. Amnisure collected. Perineum dry, no pooling. [...] Weight in lbs Pre/Post Dialysis Refused Weight 118.645649162821 BP Diastolic BP Location Tested BP Systolic [...] Weight in lbs Pre/Post Dialysis Refused Weight 118.590918588184 BP Diastolic BP Location Tested BP Systolic [...] Weight in lbs Pre/Post Dialysis Refused Weight 119.006201255602 BP Diastolic BP Location Tested BP Systolic [...] Weight in lbs Pre/Post Dialysis Refused Weight 123.041706414780 BP Diastolic BP Location Tested BP Systolic [...] Weight in lbs Pre/Post Dialysis Refused Weight 123.196315497960 BP Diastolic BP Location Tested BP Systolic [...] Weight in lbs Pre/Post Dialysis Refused Weight 123.576079452366 BP Diastolic BP Location Tested BP Systolic [...] Weight in lbs Pre/Post Dialysis Refused Weight 123.826543979464 BP Diastolic BP Location Tested BP Systolic BP Type 80 124 Fetus Heart Rate Present A Present Fetus Movement A Yes Comments JASON. No complaints. Pt accep ts cervix check YLScheduled for IOL on 01/09/19. Membranes stripped. Precautions reviewed // LGI Menstrual History Last Menstrual Date Menses Monthly On Bcp Conception Prior Menses Frequency Hcg Plus Date Menarche Onset Age 1104/19/2018 true false 9 14 Genetic Screening And Infection History Question Response Note Father of baby will be 50 ye ars or older at estimated date of deliery false Cleft lip/palate false Consanguinity false Cerebral Palsy false Patient's age will be 35 yea rs or older at estimated date of delivery false Cuban, Thalassemia A or B false Neural tube defect true FOB's Uncle Congenital anomalies false Down's Syndrome true FOB's Uncle Kendrick-Sachs disease false Sickle Cell Disease Or Trait false Hemophilia false Muscular Dystrophy false Cystic Fibrosis false Unicoi's Chorea false Mental Retardation false Test for Fragile X? false Other inherited genetic or c hromosomal disorder false Any other genetic history false Other infection history false Congenital heart disease false FOB - Nationality false Cauc: Bulgarian C anadian, Cameroonian, Citizen Of [place] FOB - Age false 21 PKU false Toxoplasmosis false Tobacco false Abdominal or epigastric pain true Supervisor Statement Clerks mping Headache or dizziness true Dizzy, hea [...] 06/28/2018 Anticipated course of care td06/28/2018 Alcohol td06/28/2018 Intimate partner violence td [id number] 06/28/2018 Environmental/work hazards t 06/28/2018 Screening for aneuploidy tdu guay2 06/28/2018 Nutrition counseling ; special diet; dietary precautions (mercury, listeriosis) 06/28/2018 Childbirth classes/hospital facilities td06/28/2018 HIV and other routine tests 06/28/2018 Risk factors identif ied by history 06/28/2018 Weight gain counseling tdugu ay06/28/2018 Exercise td06/28/2018 Teratogens 06/28/2018 Use of any medicatio ns (including supplements, vitamins, herbs, or OTC drugs) 06/28/2018 06/28/2018 Sexual activity 06/28/2018 Tobacco/smoking cess ation counseling (ask, advise, assess, assist, and arrange) 06/28/2018 Illicit/recreational drugs t [id number] 06/28/2018 Dental care tdugu06/28/2018 Travel 06/28/2018 Seat belt use 06/28/2018 Indications for ultrasonography [...]
--- OUTSIDE RECORDS SUMMARY | 2024-09-26 15:06 | XMS_ITS | Encounter Summary ---
Author Organization [employer] Address [address] [facility] 7t [place] [address] Care Team Providers Care Feather Shaper Name Role Phone Ibeth Lassiter MD Primary Care Provider [phone] Reason for Visit * Reason Comments Med Refill Encounter Details Date Type Department Care Team ([facility] st Contact Info) Description 12/14/2023 Refill [facility] MED & PEDS [address] [place] [address] Ibeth Lassiter MD [address] [place] [address] Mood disorder (CMS/HCC) Social History Tobacco Use [...] Upcoming Encounters Date Type Department Care Team ([facility] st Contact Info) Description 10/13/2024 11:00 AM EDT Office Visit [facility] MED & PEDS [address] [place] [address] Ibeth Lassiter MD [address] [place] [address] documented as of this encounter Visit Diagnoses Diagnosis Mood disorder (CMS/HCC) Unspecified episodic mood disorder documented in this encounter Additional Health Concerns Assessment Noted Time PHQ-9 Depression Total Score: 24 024 3:55 PM EDT documented as of this encounter Care Teams Feather Shaper Relationship Specialty Start Date End Date Ibeth Lassiter MD [address] [place] [address] PCP - General Family Medicine 12/16/21 documented as of this encounter
--- OUTSIDE RECORDS SUMMARY | 2024-09-26 15:06 | XMS_ITS | Encounter Summary ---
Author Organization [employer] Address [address] [facility] 7t [place] [address] Care Team Providers Care Electrologist Name Role Phone Ibeth Lassiter MD Primary Care Provider Reason for Visit * Reason Onset Date Comments Med Refill 01/01/2024 Encounter Details Date Type Department Care Team ([facility] st Contact Info) Description 01/01/2024 Telephone [facility] MEDICINE [address] [place] [address] Ibeth Lassiter MD [address] [place] [address] Med Refill Social History Tobacco Use Types [...] information. Pt is advised to come to [facility] in [facility] today or tomorrow if needed. Hours open [...] pain medicine - You become worse From: Jeff Deepti Sent: 01/12/2024 9:34 PM EDT To: [facility] Front Office Subject: Appointment Request Appointment Request From: Deepti Aguilar With Provider: Ibeth Lassiter MD [[facility]] Preferred Date Range: 01/13/2024 [...] 30 MG tablet To be sent to: [facility] [address] [place] [address] documented in this encounter Plan of Treatment Upcoming Encounters Date Type Department Care Team (Late st Contact Info) Description 10/13/2024 11:00 AM EDT Office Visit [facility] MED & PEDS [address] [place] [address] Ibeth Lassiter MD [address] [place] [address] documented as of this encounter Visit Diagnoses Not on filedocumented in this encounter Additional Health Concerns Assessment Noted Time PHQ-9 Depression Total Score: 24 024 3:55 PM EDT documented as of this encounter Care Teams Electrologist Relationship Specialty Start Date End Date Ibeth Lassiter MD [address] [place] [address] PCP - General Family Medicine 12/16/21 documented as of this encounter
[2024-09-26 16:11] LABS: MANUAL DIFF FLAG NO
[2024-09-26 16:19] LABS: Basophils Percent Auto 0.5 % (0-2); Eosinophils Percent Auto 0.5 % (0-4); Hematocrit 37.1 % (37.0-47.0); Hemoglobin 11.7 g/dl (12.0-16.0); Imm Gran Abs Auto 0.03 X10*3/uL (0.00-0.03); Imm Gran Pct Auto 0.4 % (0.0-0.4); Lymphocytes Absolute Auto 1.8 X10*3/uL (1.2-4.9); Lymphocytes Percent Auto 23.6 % (20-40); Mean Corpuscular HGB Conc 31.5 g/dl (31.0-35.0); Mean Corpuscular Hemoglobin 24.5 pg (27.0-33.0); Mean Corpuscular Volume 77.6 fL (80.0-98.0); Mean Platelet Volume 11.4 fL (9.4-12.3); Monocytes Absolute Auto 0.4 X10*3/uL (0.1-1.2); Monocytes Percent Auto 5.1 % (2-11); Neutrophils Absolute Auto 5.4 x10*3/uL (2.0-8.3); Neutrophils Percent Auto 69.9 % (45-73); Platelet Count 400 X10*3/uL (160-400); Red Blood Count 4.78 X10*6/uL (4.20-5.50); Red Cell Distribution Width 17.3 % (11.0-16.0); White Blood Count 7.8 X10*3/uL (4.8-10.8)
[2024-09-26 16:30] LABS: Alanine Aminotransferase 35 U/L (0-31); Albumin Level 4.5 g/dL (3.5-5.0); Alkaline Phosphatase 184 U/L (39-117); Anion Gap 11 (12-20); Aspartate Amino Transferase 25 U/L (5-31); Bilirubin Total 0.5 mg/dL (0.0-1.0); Blood Urea Nitrogen 8 mg/dL (9-16); Calcium 9.2 mg/dL (8.4-10.2); Carbon Dioxide 22 mmol/L (22-29); Chloride 108 mmol/L (96-108); Estimated Glomerular Filt Rate > 60; Glucose Random 115 mg/dL (60-115); Sodium 137 mmol/L (135-145); Total Protein 7.4 g/dL (6.5-8.0)
== END 2024-09-26 14:26 | disposition home or self-care (01) ==
LOC: HO.HHCL 14:25
PROVIDERS: Visit Provider Nurse Practitioner Family
DX: K86.0 Alcohol-induced chronic pancreatitis (principal)
CPT/HCPCS: 36415; 80053; 85025

== ENCOUNTER 2024-10-02 00:28 | Emergency (ER) | payer MEDICAID, SELFPAY ==
[2024-10-02 00:34] VITALS: BP 116/76; PULSE 90; O2SAT 98
[2024-10-02 00:57] VITALS: BP 121/62; PULSE 94; RESP 16; TEMP 36.8; O2SAT 97; BMI 23.3
[2024-10-02 01:18] LABS: Basophils Absolute Auto 0.1 X10*3/uL (0.0-0.2); Basophils Percent Auto 0.7 % (0-2); Eosinophils Percent Auto 0.5 % (0-4); Hemoglobin 11.6 g/dl (12.0-16.0); Imm Gran Abs Auto 0.01 X10*3/uL (0.00-0.03); Imm Gran Pct Auto 0.1 % (0.0-0.4); Lymphocytes Absolute Auto 2.1 X10*3/uL (1.2-4.9); MANUAL DIFF FLAG NO; Mean Corpuscular HGB Conc 32.2 g/dl (31.0-35.0); Mean Corpuscular Hemoglobin 24.8 pg (27.0-33.0); Mean Corpuscular Volume 77.1 fL (80.0-98.0); Mean Platelet Volume 10.4 fL (9.4-12.3); Monocytes Absolute Auto 0.3 X10*3/uL (0.1-1.2); Monocytes Percent Auto 4.5 % (2-11); Neutrophils Absolute Auto 4.8 x10*3/uL (2.0-8.3); Neutrophils Percent Auto 65.2 % (45-73); Platelet Count 274 X10*3/uL (160-400); Red Blood Count 4.67 X10*6/uL (4.20-5.50); White Blood Count 7.3 X10*3/uL (4.8-10.8)
[2024-10-02 01:27] LABS: Appearance Urine Clear; Color Urine Yellow; Glucose Urine UA Negative (Negative); Leukocyte Esterase Urine Negative (Negative); Nitrite Urine Negative (Negative); PH 7.5 (5.0-9.0); Specific Gravity - Urine <= 1.005 (1.005-1.025); Urine Blood Negative (Negative); Urine Ketones Negative (Negative); Urine Protein Negative (Neg-Trace)
[2024-10-02 01:28] LABS: UPreg QC Valid YES; Urine Pregnancy NEGATIVE (NEGATIVE)
[2024-10-02 01:30] LABS: Bacteria Urine None Seen (None Seen); Hyaline Casts Urine 0-2 /LPF (0-2); RBC Urine 0-2 /HPF (0-2); Squamous Epithelial Cell Urine 0-2 /HPF (0-2); WBC Urine 0-5 /HPF (0-5)
[2024-10-02 01:41] LABS: Alanine Aminotransferase 40 U/L (0-31); Albumin Level 4.3 g/dL (3.5-5.0); Anion Gap 14 (12-20); Aspartate Amino Transferase 38 U/L (5-31); Bilirubin Total 0.2 mg/dL (0.0-1.0); Blood Urea Nitrogen 6 mg/dL (9-16); Calcium 9.2 mg/dL (8.4-10.2); Carbon Dioxide 23 mmol/L (22-29); Chloride 112 mmol/L (96-108); Creatinine Clr Calc Pharmacy 117.5; Estimated Glomerular Filt Rate > 60; Glucose Random 93 mg/dL (60-115); Lipase 6 U/L (8-78); Potassium 3.5 mmol/L (3.3-5.1); Sodium 145 mmol/L (135-145)
[2024-10-02 01:50] LABS: Alkaline Phosphatase 186 U/L (39-117)
[2024-10-02 02:13] VITALS: BP 110/66; PULSE 80; RESP 16; TEMP 37.1; O2SAT 97
--- NOTE | 2024-10-02 02:39 | PC.NURSE ---
pt seen leaving the ED, did not alert staff. LWBS. no IV in place
== END 2024-10-02 02:41 | disposition left against medical advice (07) ==
PROVIDERS: Emergency Provider Emergency Medicine
DX: R10.2 Pelvic and perineal pain (principal)
CPT/HCPCS: 36415; 80053; 81001; 81025; 83690; 85025; 99281; 99284

== ENCOUNTER 2024-12-23 19:04 | Inpatient (IN) | payer MEDICAID, SELFPAY ==
[2024-12-23 19:21] VITALS: BP 109/71; PULSE 85; RESP 16; TEMP 36.8; O2SAT 98; BMI 23.3
--- NOTE | 2024-12-23 19:26 | ED.GENADULT ---
HPI - General Adult General Chief complaint: Abdominal Pain Stated complaint: Pancreatitis Time Seen by Provider: 12/23/24 20:45 History of Present Illness ED Provider: Lui Rodrigues MD HPI narrative: This is a 29-year-old female with chronic abdominal pain/chronic pancreatitis. She has treated by gastroenterology with pregabalin, follows pain management and PCP who provides long-acting morphine. She checked him with a pain management physician yesterday due to slightly increasing epigastric pain consistent in character but increasing in severity. No GI bleeding. No vomiting. She is able to eat and drink. Plan was to present to the ED if pain worsened. Related Data Home Medications ?Medication ?Instructions ?Recorded ?Confirmed hydroxyzine pamoate 50 mg capsule 50 mg PO Q6H PRN anxiety 07/05/24 12/24/24 morphine 15 mg tablet,extended 15 mg PO BID 12/24/24 12/24/24 release oxycodone 10 mg tablet 10 mg PO Q8H 12/24/24 12/24/24 pregabalin 300 mg capsule 300 mg PO BID 12/24/24 12/24/24 sertraline 100 mg tablet 100 mg PO DAILY 12/24/24 12/24/24 Previous Rx's ?Medication ?Instructions ?Recorded rajbqq-cltzeqeg-nphakgy 1 cap PO TIDWM #270 caps 07/18/24 24,000-76,000-120,000 unit capsule,delayed rel (Creon) Allergies Allergy/AdvReac Type Severity Reaction Status Date / Time No Known Allergies Allergy Verified 12/23/24 19:23 [facility] Past Medical History Medical History Alcohol abuse Necrotizing pancreatitis Benign tumor of breast Alcohol abuse Asthma Anxiety Surgical History No history of previous surgery Social History Social History Household Members: Family Housing: House Do you presently have visiting nurse or other home services: No Alcohol intake: former Patient Tobacco Use Status: Never used Tobacco Substance Use Type: Prescription Drugs service: No Physical Exam ED Exam Exam: EXAM: Gen: Alert, awake, well appearing, well hydrated. Head: Atraumatic Eyes: Anicteric, Normal conjunctiva. ENT: Moist mucosa, no pallor. ? Neck: Supple. Skin: ?No observable rash or bruising on exposed or examined skin Respiratory: Breathing comfortably, No distress.Clear to auscultation bilaterally, symmetric chest expansion, No wheeze, rales, ronchi. Cardiovascular: Regular rate and rhythm. No murmurs or rub. Well perfused periphery, warm extremities. No edema. ? Abdominal: Moderate epigastric tenderness even on light palpation. Moderate suprapubic tenderness. . Soft, no objective distension. No palpable masses or obvious organomegaly. ?No guarding, no rebound tenderness or other peritoneal findings. : No flank tenderness. Neuro: Alert. Gross movement of all extremities intact. ? Psych: Calm. Cooperative. MSK: No grossly visible deformity. Vital signs: See flowsheet Vital Signs: Vital Signs - 24 hr 12/23/24 19:21 12/23/24 20:11 12/23/24 22:48 Temperature 98.3 F 98.0 F Pulse Rate 85 85 79 Respiratory Rate 16 16 16 Blood Pressure 109/71 113/72 111/70 Pulse Oximetry 98 98 97 Oxygen Delivery Method Room Air Room Air Room Air BMI result Body Mass Index 23.3 Course Course Course Narrative: RME: 29-year-old female presents to the ED 20 the abdominal pain pancreatitis flare-up. Patient states diagnosed with pancreatitis since September 2023. Patient denies any recent alcohol use. Patient states no relief with regular pain meds. Labs ordered Medications Administered Generic Name Dose Route Start Last Admin Trade Name Freq PRN Reason Stop Dose Admin Acetaminophen 650 mg 12/24/24 00:56 12/24/24 18:27 Acetaminophen 325 Mg Tablet PO 650 mg Q6H PRN Administration Pain, Mild 1-3,fever,headache Lipase/Protease/Amylase 1 cap 12/24/24 08:45 12/25/24 17:36 Lipase/Prot/Amylase 24/76/120k 1 Cap Capsule.Dr PO 1 cap TIDWM TRUONG Administration Enoxaparin Sodium 40 mg 12/24/24 01:00 12/25/24 23:46 Enoxaparin Sodium 40 Mg/0.4 Ml Syringe SUBCUT 40 mg Q24H TRUONG Administration Hydromorphone HCl 1.5 mg 12/24/24 00:56 12/25/24 23:47 Hydromorphone Hcl 1 Mg/Ml Syringe IVPUSH 1.5 mg Q4H PRN Administration Pain, Severe (Pain Scale 7-10) Protocol Oxycodone HCl 10 mg 12/25/24 16:08 12/25/24 17:36 Oxycodone Hcl Immed Release 5 Mg Tablet PO 10 mg Q4H PRN Administration Pain, Moderate(Pain Scale 4-6) Pregabalin 300 mg 12/24/24 09:00 12/25/24 19:49 Pregabalin 150 Mg Capsule PO 300 mg BID TRUONG Administration Sertraline HCl 100 mg 12/24/24 09:00 12/25/24 07:25 Sertraline Hcl 100 Mg Tablet PO 100 mg DAILY TRUONG Administration Sodium Chloride 3 ml 12/24/24 08:00 12/25/24 19:49 0.9 % Sodium Chloride Flush 3 Ml Syringe IVFLUSH 3 ml QSHIFT TRUONG Administration Discontinued Medications Generic Name Dose Route Start Last Admin Trade Name Freq PRN Reason Stop Dose Admin Hydromorphone HCl 1.5 mg 12/23/24 22:19 12/23/24 22:45 Hydromorphone Hcl 2 Mg/Ml Vial IVPUSH 12/23/24 22:20 1.5 mg ONCE ONE Administration Protocol Medical Decision Making Medical Decision Making MDM Narrative: Medical Decision Makin-year-old female with chronic pancreatitis, chronic pain. More severe but similar character. No GI bleeding. Hemodynamic stable. Very tender in the epigastrium though the patient is young and has been imaged multiple times doubt an acute surgical complication. No indication for emergent imaging. Preliminary Favored Differential Diagnosis: Acute on chronic pancreatitis, PUD, gastritis, GERD, among additional considered etiologies Testing Interpreted Independently: Not Applicable Radiology or Lab testing Results Reviewed: No actionable lab findings Consults: Not Applicable Independent Historians/External Chart Reviews: Not Applicable Social Determinants of Health Impacting MDM/Planning: Not Applicable Lab Data 12/24/24 04:20 12/24/24 04:20 Labs: Lab Results 12/23/24 12/23/24 Range/Units 19:47 22:49 WBC 5.2 (4.8-10.8) X10*3/uL RBC 4.64 (4.20-5.50) X10*6/uL Hgb 11.4 L (12.0-16.0) g/dl Hct 35.5 L (37.0-47.0) % MCV 76.5 L (80.0-98.0) fL MCH 24.6 L (27.0-33.0) pg MCHC 32.1 (31.0-35.0) g/dl RDW 16.0 (11.0-16.0) % Plt Count 236 (160-400) X10*3/uL MPV 11.5 (9.4-12.3) fL Immature Gran % (Auto) 0.2 (0.0-0.4) % Neut % (Auto) 56.0 (45-73) % Lymph % (Auto) 33.8 (20-40) % Ross % (Auto) 6.9 (2-11) % Eos % (Auto) 2.5 (0-4) % Baso % (Auto) 0.6 (0-2) % Lymph # (Auto) 1.8 (1.2-4.9) X10*3/uL Ross # (Auto) 0.4 (0.1-1.2) X10*3/uL Eos # (Auto) 0.1 (0.0-0.4) X10*3/uL Baso # (Auto) 0.0 (0.0-0.2) X10*3/uL Abs Immat Gran (auto) 0.01 (0.00-0.03) X10*3/uL Absolute Neuts (auto) 2.9 (2.0-8.3) x10*3/uL Absolute Nucleated RBC 0.000 (0.0-0.012) X10*3/uL Nucleated RBC % (auto) 0.0 (0.0-0.2) /100WBC Sodium 140 (135-145) mmol/L Potassium 3.9 (3.3-5.1) mmol/L Chloride 109 H (96-108) mmol/L Carbon Dioxide 22 (22-29) mmol/L Anion Gap 13 (12-20) BUN 5 L (9-16) mg/dL Creatinine 0.69 (0.5-1.4) mg/dL Estim Creat Clear Calc 108.2 Estimated GFR > 60 Random Glucose 119 H (60-115) mg/dL Calcium 8.3 L D (8.4-10.2) mg/dL Total Bilirubin 0.3 (0.0-1.0) mg/dL AST 38 H (5-31) U/L ALT 41 H (0-31) U/L Alkaline Phosphatase 167 H (39-117) U/L Total Protein 6.6 (6.5-8.0) g/dL Albumin 4.3 (3.5-5.0) g/dL Lipase < 4 L (8-78) U/L Beta HCG, Quant < 2 mIU/mL Urine Color Yellow Urine Appearance Clear Urine pH 6.0 (5.0-9.0) Ur Specific [place] 1.020 (1.005-1.025) Urine Protein Negative (Neg-Trace) mg/dL Urine Glucose (UA) Negative (Negative) mg/dL Urine Ketones Negative (Negative) mg/dL Urine Blood Negative (Negative) Urine Nitrite Negative (Negative) Ur Leukocyte Esterase Negative (Negative) Discharge Plan Discharge Clinical Impression: Acute pancreatitis Patient Disposition: Admitted As Inpatient Interventions: Admission Worksheet (ED) Last Done: 12/24/24 08:13 Discharge Date/Time: 12/24/24 19:40
[2024-12-23 19:51] LABS: MANUAL DIFF FLAG NO
[2024-12-23 19:58] LABS: Hematocrit 35.5 % (37.0-47.0); Hemoglobin 11.4 g/dl (12.0-16.0); Imm Gran Abs Auto 0.01 X10*3/uL (0.00-0.03); Imm Gran Pct Auto 0.2 % (0.0-0.4); Lymphocytes Absolute Auto 1.8 X10*3/uL (1.2-4.9); Mean Corpuscular HGB Conc 32.1 g/dl (31.0-35.0); Mean Corpuscular Hemoglobin 24.6 pg (27.0-33.0); Mean Corpuscular Volume 76.5 fL (80.0-98.0); NRBC Abs Auto 0.000 X10*3/uL (0.0-0.012); NRBC Pct Auto 0.0 /100WBC (0.0-0.2); Platelet Count 236 X10*3/uL (160-400); Red Blood Count 4.64 X10*6/uL (4.20-5.50); White Blood Count 5.2 X10*3/uL (4.8-10.8)
[2024-12-23 20:11] VITALS: BP 113/72; PULSE 85; RESP 16; TEMP 36.7; O2SAT 98
[2024-12-23 20:12] LABS: Alanine Aminotransferase 41 U/L (0-31); Albumin Level 4.3 g/dL (3.5-5.0); Alkaline Phosphatase 167 U/L (39-117); Anion Gap 13 (12-20); Aspartate Amino Transferase 38 U/L (5-31); Blood Urea Nitrogen 5 mg/dL (9-16); Calcium 8.3 mg/dL (8.4-10.2); Carbon Dioxide 22 mmol/L (22-29); Chloride 109 mmol/L (96-108); Creatinine Clr Calc Pharmacy 108.2; Estimated Glomerular Filt Rate > 60; Lipase < 4 U/L (8-78); Potassium 3.9 mmol/L (3.3-5.1); Sodium 140 mmol/L (135-145); Total Protein 6.6 g/dL (6.5-8.0)
--- OUTSIDE RECORDS SUMMARY | 2024-12-23 20:32 | XMS_ITS | Encounter Summary ---
Author Organization [facility] Address [address] [place] [address] Care Team Providers Care Second Hand Name Role Phone Valeria Tao MD Primary Care Provider + Encounter Details Date Type Department Care Team (Late st Contact Info) Description 01/11/2019 Lab Requisition [facility] [address] [place] [address] Cooper Cardenas Encounter for screening Social History Tobacco Use Types Packs/Day Years Used Date Smoking Tobacco: Former Smokeless Tobacco: Never Alcohol Use Standard Drinks/Week Comments Not Currently 0 (1 standard drink = 0.6 oz pur e alcohol) Comments No Sex and Gender Information Value Date Recorded Sex Assigned at Female 04/20/2020 8:43 AM EST Legal Sex Female 7:46 AM EDT Gender Identity Female 04/20/2020 8:43 AM EST Sexual Orientation Straight 04/20/2020 8: 43 AM EST documented as of this encounter Plan of Treatment Not on file documented as of this encounter Procedures * Due to [place] [employer] law, this organization might not be sharing negative HIV tests. Procedure Name Priority Date/Time Associated Diagnosis Comments KLEIHAUER-BETKE STAIN Routine 01/11/2019 6:40 AM EDT Encounter for screening documented in this encounter Results * Due to [place] [employer] law, this organization might not be sharing negative HIV tests. * Kleihauer-Betke Stain (01/11/2019 6:40 AM EDT) Number of Cells 3 cells/1000 RBCs [facility] MANUAL 01/11/2019 2:28 PM EDT [facility] Estimated Bleed 15 mL [facility] MANUAL 01/11/2019 2:28 PM EDT [facility] Comment:% of Cells X 5 0 (idealized maternal HCT) = Estimated mLs of -maternal bleed. The formula used has inherent inaccuracies (gross overestimation). It is intended for use only in cases of Rh incompatibility and Rho (D) immune globulin administration. Blood specimen (specimen) Structure of peripheral vein / Unknown 01/11/2019 6:40 AM EDT 01/11/2019 1:10 PM EDT [facility] BLOOD ORDERABLES Final Resul t [facility] [address] [place] [address], documented in this encounter Visit Diagnoses Diagnosis Encounter for screening documented in this encounter Additional Health Concerns Infection Onset Date Last Indicated Resolved Time COVID-19 - Suspected infection 10/15/2019 10/15/2019 10/16/2019 7:05 AM EDT documented as of this encounter Care Teams Second Hand Relationship Specialty Start Date End Date Valeria Tao MD [address] [place] [address] PCP - General 12/01/24 documented as of this encounter
--- OUTSIDE RECORDS SUMMARY | 2024-12-23 20:32 | XMS_ITS | Encounter Summary ---
Author Organization [employer] Address [address] [place] [address] 7 [place] [address] Care Team Providers Care Ccie Name Role Phone Ibeth Lassiter MD Primary Care Provider [phone] Amber Marie Primary Care Provider [phone] Bailee Lewis MD Primary Care Provider [phone] Ibeth Lassiter MD Primary Care Provider [phone] Bailee Lewis MD Primary Care Provider [phone] Reason for Visit * Reason Onset Date Comments Results 03/27/2024 Care Coordination 03/27/2024 [facility] initial a ssessment/ enrollment Encounter Details Date Type Department Care Team ([facility] Contact Info) Description 03/27/2024 Telephone [facility] MED & PEDS [address] [place], [place] [phone] Ibeth Lassiter MD [address] [place], [place] [phone] Results; Care Coordination ([facility] initial assessment/ enrollment) Social History Tobacco [...] Johnston RN - 04/10/2024 9:46 AM EST CM Doreen Johnston RN placed outbound call to patient [...] was hospitalized about 2 days ago at [facility] for epigastric pain. Pt states she triesto avoid spicy food which triggers the pain. t states she is supposed to wear eyeglasses due to difficulty with her vision but hasn't seen the academic guidance specialist in a very long time. CM will mail a list of academic guidance specialist to pt's address on file and [...] understanding, and able to repeat back to underwriter. A follow up call will be placed within 10 days, patient agrees with plan. * Telephone Encounter - Nancy Aguilar RN - 04/02/2024 3:[address] was ordered by outside provider. Upon pt chart review, pt is currently admitted at [facility] for Abd pain after biliary stent placement. Pt to f/u once discharged. * Telephone Encounter - Catie Moreau - 03/27/2024 2:17 PM EDT TC from pt requesting call back regarding Results. Type of results: Ultrasound Date when done: 2 weeks ago Facility: [facility] Contact pt at [phone] documented in this encounter Plan of Treatment Upcoming Encounters Date Type Department Care Team (Late st Contact Info) Description 12/30/2024 1:15 PM EDT Office Visit [facility] MEDICINE [address] [place] [address] Claudia Ansari MD [address] [place] [address] 01/07/2025 11:30 AM EDT Clinical Support [facility]ICINE [address] [place] [address] Ena Grant RN documented as of this encounter Visit Diagnoses Not on filedocumented in this encounter Additional Health Concerns Assessment Noted Time PHQ-9 Depression Total Score: 24 024 3:55 PM EDT documented as of this encounter Care Teams Ccie Relationship Specialty Start Date End Date Ibeth Lassiter MD [address] [place] [address] PCP - General Family Medicine 12/16/21 10/01/24 Amber Marie FNP [address] [place] [address] PCP - General Family Medicine 10/02/24 10/08/24 Bailee Lewis MD [address] [place] [address] PCP - General Family Medicine 10/09/24 10/12/24 Ibeth Lassiter MD [address] [place] [address] PCP - General Family Medicine 10/13/24 11/13/24 Bailee Lewis MD [address] [place] [address] PCP - General Family Medicine 11/14/24 documented as of this encounter
--- OUTSIDE RECORDS SUMMARY | 2024-12-23 20:32 | XMS_ITS | Clinical Summary ---
Author Organization [facility] Address [address] [place] [address] Care Team Providers Care Circus Performer Name Role Phone Ibeth Lassiter MD Primary Care Provider [phone] Allergies Active Allergy Reactions Criticality Noted Date [...] pur e alcohol) 10-[address] [facility] Utilities Answer Date Recorded In the past 12 months has [employer], gas, oil, or water [employer]) threatened to shut off services in your [...] place to sleep or slept in a assisted (including now)? No 09/08/2023 Comments Unknown Sex [...] 101 09/15/2023 8:03 AM EDT Temperature 36.6 C (97.9 F) 09/15/2023 8:03 AM EDT Respiratory Rate 18 09/15/2023 8:03 AM EDT [...] series) 2014 Pap Smear (Ages 21-65) 2016 COVID-19 Vaccine (2023-2 5 season) 2024 Influenza Vaccine 01/02/2025 04/04/2011 HPV Vaccines Aged Out No longer eligi ble based on patient's age to complete this topic Pneumococcal Vaccine: Pediat jaskaran (0-5 Years) and At-Risk Patients (6 to 49 Years) Aged Out No longer eligible b ased on patient's age to complete this topic Insurance [employer] Advance Directives * Full Code (Latest Code Status on File) Date Activated Date Inactivated Comments 09/08/2023 12:13 AM Care Teams Circus Performer Relationship Specialty Start Date End Date Ibeth Lassiter MD [address] [place] [phone] PCP - General Family Medicine 09/07/23
--- OUTSIDE RECORDS SUMMARY | 2024-12-23 20:32 | XMS_ITS | Clinical Summary ---
Author Organization [facility] Address [address] [address] Phone Care Team Providers Care Auto Electrician Name Role Phone Ibeth Lassiter MD Primary Care Provider [phone] Medications acetaminophen (TYLENOL) 325 mg tablet Take 650 mg by mouth. 5 Active CREON 24,000-76,000 -120,000 unit CpDR Take 1 capsule by mouth. 5 Active ondansetron (ZOFRAN-ODT) 4 MG disintegrating tablet Take 4 mg by mouth. 5 Active pantoprazole (PROTONIX) 40 MG tablet Take 1 tablet by mouth. Active pregabalin (LYRICA) 300 MG capsule Take 1 capsule (300 mg total) by mouth 2 (two) times a day. 60 capsule 3 5 Active Encounters Date Type Department Care Team Description 11/26/2024 Telephone [facility] [address] [facility] [place] [address] Arturo Gayle MD, PhD Nalini / schedule coord 10/31/2024 3:00 PM EDT Office Visit [facility] at [address] [address] Arturo Gayle MD, PhD Necrotizing pancreatitis (Primary Dx) from Last 3 Months Social History Tobacco Use Types Packs/Day Years Used Date Smoking Tobacco: Never Assessed Education Answer Date Recorded Are you interested in more education? Not on ray e 08/15/2024 Are you concerned about learning? Not on file 08/15/2024 No 08/15/2024 No 08/15/2024 Digital Access Answer Date Recorded No 08/15/2024 No 08/15/2024 Reliable internet access at home? Not on file 08/15/2024 Device with a working camera? Not on file Comments Unknown Sex and Gender Information Value Date Recorded Sex Assigned at Female 08/15/2024 3:28 PM EDT Legal Sex Female 3:25 PM EDT Gender Identity Female 08/15/2024 3:28 PM EDT Sexual Orientation Bisexual 08/15/2024 3: 28 PM EDT Last Filed Vital Signs Vital Sign Reading Time Taken Comments Blood Pressure 112/59 10/31/2024 2:55 PM EDT Pulse 78 10/31/2024 2:55 PM EDT Temperature - - Respiratory Rate - - Oxygen Saturation 98% 10/31/2024 2:55 PM EDT Inhaled Oxygen Concentration - - Weight 64.4 kg (141 lb 14.4 oz) 10/31/2024 2:55 PM EDT Height - - Body Mass Index - - Plan of Treatment Upcoming Encounters Date Type Department Care Team (Late st Contact Info) Description 03/06/2025 10:20 AM EDT Telemedicine [facility] Specialties at [address] [address] Arturo Gayle MD, PhD [address] [place] [phone] [email or web address] Health Maintenance Due Date Last Done Comments SMOKING Hx and SMOKELESS TOBACCO SCREENING 2008 HIV ONE-TIME SCREENING (18-65 YEARS) 2013 PAP SMEAR 2016 COVID-19 VACCINE ( season) 2024 DEPRESSION SCREENING 10/24/2025 10/24/2024 Adult Td,Tdap Booster 03/31/2030 03/31/2020 , 11/19/2018, 04/09/2017, Additional history exists MENINGOCOCCAL VACCINES (ACWY) Aged Out 07/08/2008 No longer eligible based on patient's age to complete this topic HEPATITIS C SCREENING Completed 12/16/2020, 020 HEPATITIS A VACCINES Aged Out No long er eligible based on patient's age to complete this topic HIB VACCINES Aged Out No longer eligi ble based on patient's age to complete this topic MENINGOCOCCAL VACCINES (B) Aged Out N o longer eligible based on patient's age to complete this topic PNEUMOCOCCAL VACCINES (0-49 years) Aged Out No longer eligible based on patient's age to complete this topic Medical Devices Not on file Insurance [employer] [facility] C3 ACO [employer] [place] [address] [place] [address] [place] [address] [place] [address] [place] [address] [place] [address] C[employer] Care Teams Auto Electrician Relationship Specialty Start Date End Date Ibeth Lassiter MD [address] [place] [address] PCP - General Family Medicine 08/15/24 Additional Source Comments The information contained in this document represents components of the legal health record. It is not the complete legal health record.[facility]
--- OUTSIDE RECORDS SUMMARY | 2024-12-23 20:33 | XMS_ITS | Data Portability ---
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 Plan of Treatment Reminders Order Date Submit Date Provider Last Modified By Organization Details Last Modified Time Details Appointments None recorded. Lab None recorded. Referral None recorded. Procedures None recorded. Surgeries None recorded. Imaging None recorded. Medication Orders valacyclov ir 1 gram tablet 2018 019 INTERFACE [id number], [address] [place], [address], 9 16:29:52 ranitidine 150 mg tablet 2018 019 INTERFACE [id number], [address] [place], [address], 9 16:29:52 Patient TargetsNo targets recorded. Patient InstructionsNo instructions recorded. Reason for Referral None Reported. Results Created Date Observation Date Name Description Value Unit Range Abnormal Flag Note LastModifiedBy Organization Detail LastModifiedTime 11/06/1911/05/2018 drug scree n, urine ds amphetamines NEGATI VE normal Not Available [facility] [address] [place], [address], 11/05/2018 14:54:55 11/06/19 19 11/05/2018 drug scree n, urine ds barbituates NEGATI VE normal Not Available [facility] [address] [place], [address], 11/05/2018 14:54:55 11/06/1911/05/2018 drug scree n, urine ds benzodiazepi NEGATI VE normal Not Available [facility] [address] [place] [address], [address], 11/05/2018 14:54:55 11/06/19 19 11/05/2018 drug scree n, urine ds cannabinoid NEGATI VE normal Not Available [facility] [address] [place] [address], [address], 11/05/2018 14:54:55 11/06/1911/05/2018 drug scree n, urine ds cocaine NEGATI VE normal Not Available [facility] [address] [place] [address], [address], 11/05/2018 14:54:55 11/06/1911/05/2018 drug scree n, urine ds methadone NEGATI VE normal Not Available [facility] [address] [place] [address], [address], 11/05/2018 14:54:55 11/06/1911/05/2018 drug scree n, urine ds opiates NEGATI VE normal Not Available [facility] [address] [place] [address], [address], 11/05/2018 14:54:55 11/06/1911/05/2018 drug scree n, urine ds oxycodone NEGATI VE normal Not Available [facility] [address] [place] [address], [address], 11/05/2018 14:54:55 11/06/1911/05/2018 drug scree n, urine ds phencyclidin NEGATI VE normal Not Available [facility] [address] [place] [address], [address], 11/05/2018 14:54:55 11/06/1911/05/2018 drug scree n, urine ds propoxphene NEGATI VE normal Not Available [facility] [address] [place] [address], [address], 11/05/2018 14:54:55 11/10/1911/09/2018 urina lysis , dipst ick color YELLOW yellow normal Not Available [facility] [address] [place], [place] [address], [address], 11/09/2018 01:50:05 11/10/1911/09/2018 urina lysis , dipst ick appearance CLEAR clear normal Not Available [facility] [address] [place] [address], [address], 11/09/2018 01:50:05 11/10/1911/09/2018 urina lysis , dipst ick specific gravit 1.020 1.001- 1.035 normal Not Available [facility] [address] [place], [place] [address], [place], [address], 11/09/2018 01:50:05 11/10/1911/09/2018 urina lysis , dipst ick urine glucose TRACE neg high Not Available [facility] [address] [place] [address], [address], 11/09/2018 01:50:05 11/10/1911/09/2018 urina lysis , dipst ick urine bilirubin NEGATI VE neg normal Not Available [facility] [address] [place] [address], [address], 11/09/2018 01:50:05 11/10/1911/09/2018 urina lysis , dipst ick urine ketone NEGATI VE neg normal Not Available [facility] [address] [place] [address], [address], 11/09/2018 01:50:05 11/10/1911/09/2018 urina lysis , dipst ick urine HGB 2+ neg high Not Available [facility] [address] [place] [address], [address], 11/09/2018 01:50:05 11/10/1911/09/2018 urina lysis , dipst ick urine pH 7.0 5.0-8. 0 normal Not Available [facility] [address] [place] [address], [address], 11/09/2018 01:50:05 11/10/1911/09/2018 urina lysis , dipst ick urine protein TRACE( LOW) mg/dL neg normal Not Available [facility] [address] [place], [address], 11/09/2018 01:50:05 11/10/1911/09/2018 urina lysis , dipst ick urobilinogen 1.0 erlic h 0.2-1. 0 normal Not Available [facility] [address] [place], [address], 11/09/2018 01:50:05 11/10/1911/09/2018 urina lysis , dipst ick nitrite NEGATI VE neg normal Not Available [facility] [address] [place] [address], [address], 11/09/2018 01:50:05 11/10/1911/09/2018 urina lysis , dipst ick leukocyte beny NEGATI VE neg normal Not Available [facility] [address] [place] [address], [address], 11/09/2018 01:50:05 11/10/1911/09/2018 urina lysis , compl ete micro exam high 2+ MUCOU S 1+ BACTE DK FEW SQUAM OUS EPITH EL 0-4 WBC 15-25 RBC Not Available [facility] [address] [place] [address], [address], 11/09/2018 01:50:16 11/10/1911/09/2018 drug scree n, urine ds amphetamines POSITI VE normal THIS IS A SCREE ESME METHO D ONLY. THIS SPECI MEN WILL NOT BE [facility] S[facility] TO A REFER ENCE LABOR ATORY FOR CONFI RMATI ON TESTI NG. IF THE PROVI ZINA NEEDS CONFI RMATI ON TESTI NG PLEAS E CALL THE LABOR ATORY WITHI N [address] [facility] ER TESTI NG. Not Available [facility] [address] [place], [address], 11/09/2018 01:52:53 11/10/1911/09/2018 drug scree n, urine ds barbituates NEGATI VE normal Not Available [facility] [address] [place] [address], [address], 11/09/2018 01:52:53 11/10/1911/09/2018 drug scree n, urine ds benzodiazepi NEGATI VE normal Not Available [facility] [address] [place] [address], [address], 11/09/2018 01:52:53 11/10/1911/09/2018 drug scree n, urine ds cannabinoid NEGATI VE normal Not Available [facility] [address] [place] [address], [address], 11/09/2018 01:52:53 11/10/1911/09/2018 drug scree n, urine ds cocaine NEGATI VE normal Not Available [facility] [address] [place] [address], [address], 11/09/2018 01:52:53 11/10/1911/09/2018 drug scree n, urine ds methadone NEGATI VE normal Not Available [facility] [address] [place] [address], [address], 11/09/2018 01:52:53 11/10/1911/09/2018 drug scree n, urine ds opiates NEGATI VE normal Not Available [facility] [address] [place] [address], [address], 11/09/2018 01:52:53 11/10/1911/09/2018 drug scree n, urine ds oxycodone NEGATI VE normal Not Available [facility] [address] [place] [address], [address], 11/09/2018 01:52:53 11/10/1911/09/2018 drug scree n, urine ds phencyclidin NEGATI VE normal Not Available [facility] [address] [place] [address], [address], 11/09/2018 01:52:53 11/10/1911/09/2018 drug scree n, urine ds propoxphene NEGATI VE normal Not Available [facility] [address] [place] [address], [address], 11/09/2018 01:52:53 01/10/2001/09/2019 drug scree n, urine ds amphetamines POSITI VE normal THIS IS A SCREE ESME METHO D ONLY. THIS SPECI MEN WILL NOT BE [facility] TO A REFER ENCE LABOR ATORY FOR CONFI RMATI ON TESTI NG. IF THE PROVI ZINA NEEDS CONFI RMATI ON TESTI NG PLEAS E CALL THE LABOR ATORY WITHI N 24 HOURS TO REQUE [facility] ER TESTI NG. Not Available [facility] [address] [place] [address], [address], 01/09/2019 09:13:52 01/10/2001/09/2019 drug scree n, urine ds barbituates NEGATI VE normal Not Available [facility] [address] [place] [address], [address], 01/09/2019 09:13:52 01/10/2001/09/2019 drug scree n, urine ds benzodiazepi NEGATI VE normal Not Available [facility] [address] [place] [address], [address], 01/09/2019 09:13:52 01/10/2001/09/2019 drug scree n, urine ds cannabinoid NEGATI VE normal Not Available [facility] [address] [place], [address], 01/09/2019 09:13:52 01/10/2001/09/2019 drug scree n, urine ds cocaine NEGATI VE normal Not Available [facility] [address] [place] [address], [address], 01/09/2019 09:13:52 01/10/2001/09/2019 drug scree n, urine ds methadone NEGATI VE normal Not Available [facility] [address] [place], [address], 01/09/2019 09:13:52 01/10/2001/09/2019 drug scree n, urine ds opiates NEGATI VE normal Not Available [facility] [address] [place], [address], 01/09/2019 09:13:52 01/10/2001/09/2019 drug scree n, urine ds oxycodone NEGATI VE normal Not Available [facility] [address] [place], [address], 01/09/2019 09:13:52 01/10/2001/09/2019 drug scree n, urine ds phencyclidin NEGATI VE normal Not Available [facility] [address] [place], [address], 01/09/2019 09:13:52 01/10/2001/09/2019 drug scree n, urine ds propoxphene NEGATI VE normal Not Available [facility] [address] [place], [address], 01/09/2019 09:13:52 01/10/2001/09/2019 CBC w/ auto diff WBC 9.0 10*3/ uL 3.5-11 .0 normal Not Available [facility] [address] [place], [address], 01/09/2019 09:50:14 01/10/2001/09/2019 CBC w/ auto diff RBC 3.78 10*6/ uL 3.60-4 .80 normal Not Available [facility] [address] [place], [address], 01/09/2019 09:50:14 01/10/2001/09/2019 CBC w/ auto diff HGB 7.7 g/dL 12.0-1 6.0 low Not Available [facility] [address] [place], [address], 01/09/2019 09:50:14 01/10/2001/09/2019 CBC w/ auto diff HCT 26.3 % 36-48 low Not Available [facility] [address] [place], [address], 01/09/2019 09:50:14 01/10/2001/09/2019 CBC w/ auto diff MCV 69.6 fL 79-98 low Not Available [facility] [address] [place], [address], 01/09/2019 09:50:14 01/10/2001/09/2019 CBC w/ auto diff MCH 20.4 pg 25.4-3 4.6 low Not Available [facility] [address] [place], [address], 01/09/2019 09:50:14 01/10/2001/09/2019 CBC w/ auto diff MCHC 29.3 g/dL 30-36 low Not Available [facility] [address] [place], [address], 01/09/2019 09:50:14 01/10/2001/09/2019 CBC w/ auto diff RDW 19.2 % 11.5-1 4.5 high Not Available [facility] [address] [place], [address], 01/09/2019 09:50:14 01/10/2001/09/2019 CBC w/ auto diff plt 283 10*3/ uL 150-40 0 normal Not Available [facility] [address] [place] [address], [address], 01/09/2019 09:50:14 01/10/2001/09/2019 CBC w/ auto diff abs neut count 5.9 10*3/ uL 1.5-7. 5 normal Cauti on: Inter preta tion of ANC resul ts witho ut inclu clark of the WBC diffe renti al resul ts may lead to cresencio eous diagn osis; for examp le [facility] ng myelo proli ferat casey, [place] lymph oprol ifera tive disor ders Not Available [facility] [address] [place], [address], 01/09/2019 09:50:14 01/10/2001/09/2019 CBC w/ auto diff abs lymph count 2.5 10*3/ uL 0.8-4. 8 normal Not Available [facility] [address] [place], [address], 01/09/2019 09:50:14 01/10/2001/09/2019 CBC w/ auto diff abs mono count 0.5 10*3/ uL 0.4-1. 3 normal Not Available [facility] [address] [place], [address], 01/09/2019 09:50:14 01/10/2001/09/2019 CBC w/ auto diff abs eo count 0.1 10*3/ uL 0.0-0. 8 normal Not Available [facility] [address] [place], [address], 01/09/2019 09:50:14 01/10/2001/09/2019 CBC w/ auto diff abs baso count 0.0 10*3/ uL 0.0-0. 6 normal Not Available [facility] [address] [place], [address], 01/09/2019 09:50:14 01/10/2001/09/2019 CBC w/ auto diff abs imm gran CT 0.0 10*3/ uL 0.0-0. 6 normal Not Available [facility] [address] [place], [address], 01/09/2019 09:50:14 01/10/2001/09/2019 CBC w/ auto diff neut% 66.1 % 35-66 high Not Available [facility] [address] [place], [address], 01/09/2019 09:50:14 01/10/2001/09/2019 CBC w/ auto diff imm gran % 0.2 % 0-2.0 normal Not Available [facility] [address] [place], [address], 01/09/2019 09:50:14 01/10/2001/09/2019 CBC w/ auto diff lymph% 27.6 % 25-45 normal Not Available [facility] [address] [place], [address], 01/09/2019 09:50:14 01/10/2001/09/2019 CBC w/ auto diff mono% 5.1 % 0-13 normal Not Available [facility] [address] [place], [address], 01/09/2019 09:50:14 01/10/2001/09/2019 CBC w/ auto diff eo% 0.6 % 0-8 normal Not Available [facility] [address] [place], [address], 01/09/2019 09:50:14 01/10/2001/09/2019 CBC w/ auto diff ba% 0.4 % 0-1 normal Not Available [facility] [address] [place], [address], 01/09/2019 09:50:14 01/10/2001/09/2019 CBC w/ auto diff RBC morph normal MODER ATE ANISO SLIGH T MICRO CYTOS IS SLIGH T HYPOC HROMI A Not Available [facility] [address] [place] [address] [place], [address], 01/09/2019 09:50:14 01/10/2001/09/2019 type + scree n, serum blood type A NEGATI VE normal Not Available [facility] [address] [place], [address], 01/09/2019 10:22:11 01/10/2001/09/2019 type + scree n, serum antibody screen NEGATI VE normal Not Available [facility] [address] [place], [address], 01/09/2019 10:22:11 01/10/2001/09/2019 lab resul t results Not Available [facility] [address] [place], [address], 01/12/2019 23:59:35 01/10/2001/11/2019 amphe tamin e (GC/M S), urine amphetamines Negati ve cutoff =500 normal Not Available [facility] [address] [place], [address], 01/13/2019 17:04:24 01/10/20 19 01/11/2019 amphe tamin [...] with an expec bita outco me. ([email or web address] or call toll- free [phone]) Drug brand s, if liste d herei n, are trade singh of their respe ctive termite control servicer s. Perfo rmed at: [facility] [place] [facility] [address], [place] [address] Lab Direc tor: Denny Peck MD, Phone : [phone] Not Available [facility] [address] [place], [address], 01/13/2019 17:04:24 01/12/20 19 01/11/2019 hemog lobin + hemat ocrit , blood HGB 5.6 g/dL 12.0-1 6.0 panic low CRITI LIUDMILA REPOR T KENNEDY D TO LARA Teague BY [facility] DATE 01/11 TIME 0753 REPOR T AND PATIE NT IDENT IFICA TION READ BACK TO CONFI RM ACCUR ACY Not Available [facility] [address] [place], [address], 01/11/2019 07:55:53 01/12/2001/11/2019 hemog lobin + hemat ocrit , blood HCT 19.8 % 36-48 panic low Not Available [facility] [address] [place], [address], 01/11/2019 07:55:53 01/12/2001/11/2019 abo group + rh type, blood blood type A NEGATI VE normal Not Available [facility] [address] [place], [address], 01/11/2019 09:31:11 01/12/2001/11/2019 antib donn scree n, serum or plasm a antibody screen NEGATI VE normal Not Available [facility] [address] [place] [address], [address], 01/11/2019 09:31:14 01/12/20 19 01/11/2019 cell scree n, blood scrn res. POSITI VE negati ve high THIS POSIT CASEY SCREE N WILL BE SENT TO [facility], FOR QUANT ITATI ON BY THE [facility] MAMIE- BETKE TEST. THE PROPE R DOSE OF RHOGA M FOR THIS PATIE NT WILL BE CALCU LATED FROM THE KLE MAMIE- BETKE RESUL T. Not Available [facility] [address] [place] [address], [address], 01/11/2019 09:31:17 01/12/2001/11/2019 Rh immun e globu yonathan scree esme rhogam TRANSF USED PRODUC T: RH IMMUNE GLOBUL IN COUNT: 2 Not Available [facility] [address] [place], [address], 01/11/2019 17:05:17 01/12/2001/12/2019 hemog lobin F (hbf) , blood kleihauer betke SENT [facility] normal RESUL TS FROM [facility] IAL: 3 CELLS /1000 RBC'S ESTIM ATED BLEED = 15 ML Not Available [facility] [address] [place], [address], 01/12/2019 07:04:50 Result Notes None recorded. Problems Name Problem SNOMED Code Status Onset Date Resolution Date Notes Provider Name and Address Organization Details Recorded Time Abdomina l pain 91900848 Completed 12/10/2018 EL Simms, [facility] 9 11:17:23 Cyst of ovary 64605837 Completed 12/10/2018 h/o ov cysts EL Simms, [facility] 9 11:17:54 Herpes simplex 84884383 Active Not Available [facility] 3 03:06:51 Vaginiti s and vulvovag initis Completed 12/10/2018 EL Simms, [facility] 9 11:17:20 Threaten ed miscarri age 12805845 Completed 12/10/2018 EL Simms, [facility] 9 11:17:48 Cyst of ovary 79005874 Completed h/o ov cysts Corina laughlin [facility] 9 13:12:24 Teenage pregnanc y 156827102 Completed Enrolled in Healthy Families Corina laughlin [facility] 9 13:12:24 Depressi ve disorder 17296459 Completed h/o suicidal ideation s Corinapaula Kebede [facility] 9 13:12:24 History of substanc e abuse 007585380 Completed ER visit 2 Corina laughlin [facility] 9 13:12:24 History of RhD negative 056602866 Completed A neg Corina laughlin [facility] 9 13:12:24 Herpesvi bahman infectio n 38091303 Completed Prophyla xis 36 wks Corina laughlin [facility] 9 13:12:24 Gastroes ophageal reflux disease 068738363 Active Corina laughlin [facility] 9 13:12:24 Gastroes ophageal reflux disease 030453000 Completed Corina laughlin, [facility] 9 13:12:24 Proteinu dk 30643853 Active Corina laughlin, [facility] 9 13:12:24 Proteinu dk 56921504 Completed Corina laughlin, [facility] 9 13:12:24 Anemia 670563634 Active Corina laughlin, [facility] 9 13:12:24 Anemia 914133241 Completed Corinapaula laughlin, [facility] 9 13:12:24 Abnormal vaginal bleeding 259524857 Completed 12/10/2018 Ligia Gay RN truman, [facility] 9 11:17:45 Group B Streptoc occus carrier [id number] 03 Completed in urine - no culture needed at 36wks. Melba Villagran truman [facility] 9 08:51:56 Pregnanc y 14176503 Completed 201801/13/2019 Melba Villagran truman [facility] 9 08:52:02 Hypereme sis gravidar um 29955322 Completed 2018 Melba Villagran truman [facility] 9 08:51:56 Genital herpes simplex 59406901 Completed 2018- only had initial outbreak Melba Villagran truman [facility] 9 08:51:56 Postpart um hemorrha ge 74706208 Completed 2018 2014- states she required blood transfus ion. Melba Villagran truman [facility] 9 08:51:56 Asthma 958402789 Completed 2018 Melba laughlin [facility] 9 08:51:56 RhD negative 376594048 Completed 2018 received rhogam 07/04/18/ will need at 28 weeks as well. Melba laughlin [facility] 9 08:51:56 Screenin g for drug of abuse in urine specimen positive 192157486 Completed 2018 cannabin oid - 51-A filed Melba laughlin [facility] 9 08:51:56 History of depressi on 631294589 Completed 2018 Melba laughlin [facility] 9 08:51:56 History of anxiety state 045441573 Completed 2018 Melba laughlin [facility] 9 08:51:56 Problem Notes None recorded. Procedures Surgical History Date Name Laterality Status Provider Name and Address Organization Details Recorded Time 9 Date of Last Pap Smear completed Lin buckley [facility] 2018 07:52:28 5 Nexplanon / Implanon Removal completed Tomi Mckinnon MD [address] [place] [address], [phone], [facility] 08/21/2014 12:48:49 5 Nexplanon Insertion completed Tomi Mckinnon MD [address] [place] [address], [phone], [facility] 07/16/2014 09:42:00 4 established patient counseling (15-24 minutes) completed Alejandro Gomez MD [address] [place] [address] [place], [address], [facility] 09/16/2013 08:15:58 3 established patient counseling (15-24 minutes) completed Alejandro Gomez MD [address] [place], [place] [address], [address], [facility] 10/21/2012 14:53:03 3 established patient counseling (15-24 minutes) completed Alejandro Gomez MD [address] [place] [address] [place], [address], [facility] 08/19/2012 15:31:26 3 established patient counseling (15-24 minutes) completed Alejandro Gomez MD [address] [place], [address], [facility] 08/12/2012 09:27:40 2 established patient counseling (15-24 minutes) completed Alejandro Gomez MD [address] [place] [address], [address], [facility] 09/06/2011 16:24:40 1 established patient counseling (15-24 minutes) completed Alejandro Gomez MD [address] [place] [address], [phone], [facility] 05/08/2011 15:36:26 none completed Candida Mcdaniel [facility] 07/29/2012 14:46:50 Imaging Results None recorded. Procedure Notes None recorded. Medical Equipment None Reported. Allergies Allergen ID Allergen Name Allergen Category Reaction Reaction Severity Criticality Documentation Date Start Date Code Code System Note Provider Name and Address Organization Details Recorded Time 544441 oxycodone medicatio n respirato ry distress Not available Not available 09/22/2013 7804 Rx[facility] 09:23:47 79625 codeine medicatio n respirato ry distress Not available Not available 03/06/2011 2670 RxNorm dizzy Not Available [facility] 1 06:32:06 61975 Product containin g penicilli n (product) medicatio n respirato ry distress Not available Not available 08/30/2011 09167 8001 SNOMED dizzy EL Simsm [facility] 2 15:28:23 Medications Name Sig Start Date [...] Address Organization Details Last Updated DateTime 12/03/2018 59165.40267 g Tao Junior MD [place] - [facility] 12/03/2018 14:46:40 Date Recorded Systolic And Diastolic Provider Name and Address Organization Details Last Updated DateTime 12/03/2018 110/60 mm[Hg] Not Available Shawn Killian Record 12/03/2018 14:34:59 Date Recorded Body weight Provider Name an d Address Organization Details Last Updated DateTime 12/17/[id number] jeremías Junior MD [facility] 12/31/2018 14:18:46 Date Recorded Systolic And Diastolic Provider Name and Address Organization Details Last Updated DateTime 12/17/2018 110/68 mm[Hg] Not Available [facility] Record 12/17/2018 16:09:08 Date Recorded Body weight Provider Name an d Address Organization Details Last Updated DateTime 12/24/2018 [id number] jeremías Junior MD [facility] 12/31/2018 14:18:47 Date Recorded Systolic And Diastolic Provider Name and Address Organization Details Last Updated DateTime 12/24/2018 116/60 mm[Hg] Not Available [facility] Record 12/24/2018 15:34:53 Date Recorded Body weight Provider Name an d Address Organization Details Last Updated DateTime 12/31/2018 [id number] jeremías Junior MD [facility] 12/31/2018 14:18:47 Date Recorded Systolic And Diastolic Provider Name and Address Organization Details Last Updated DateTime 12/31/2018 102/68 mm[Hg] Not Available [facility] Record 12/31/2018 13:53:02 Date Recorded Body weight Provider Name an d Address Organization Details Last Updated DateTime 01/07/2019 [id number] jeremías Junior MD [facility] 01/07/2019 14:10:01 Date Recorded Systolic And Diastolic Provider Name and Address Organization Details Last Updated DateTime 01/07/2019 124/80 mm[Hg] Not Available [facility] G Record 01/07/2019 13:48:46 Social History Question Answer Notes LastModified by Organizat ion Details LastModified Time Tobacco Smoking Status Current Every Day Smoker quit Not Available [employer] 04/06/2020 03:15:48 Are You A Past Or Present Victim Of Abuse? No Information not available 04/19/2011 Illicit Drugs No H/o MJ Use, None Recently Information not available 04/19/2011 Marital Status Single Steady Partner- Stationed In [place] At The Moment [email or web address] Information not available 09/22/2013 What Was The Date Of Your Most Recent Tobacco Screening? 06/28/2018 [id number] Information not available 04/06/2020 Are You Sexually Active? No Not Currently [id number] Information not available 04/06/2020 At What Age Did You Start Smoking Tobacco? 15 [id number] Information not available 04/06/2020 How Much Tobacco Do You Smoke? No [id number] Information not available 04/06/2020 How Many Years Have You Smoked Tobacco? 3 [id number] Information not available 04/06/2020 Sex: Unknown Functional Status Question Answer Note LastModified by Organization D etails LastModified Time What is your level of alcohol consumption? None [id number] Information not available 04/06/2020 Mental Status None recorded. Family History Relationship [...] available 10/02/2013 00:03:59 Medical History Condition Response osteopenia/osteoprosis N anemia or bleeding problems N cancer N bladder / kidney infection(s) N defects or inherited disease N heart problems, murmurs N infertility N lung disease Y varicosities N endometriosis N high blood pressure N GERD / reflux N other Y hepatitis N anxiety disorder Y thyroid disease or other endocrine probl ems N frequent headaches/migraines Y psychiatric illness Y breast problem Y Gynecological History Statement/Question Response Date of [...] SNOMED-CT Code Diagnosis ICD10 Code Diagnosis Note [id number] Alejandro Gomez MD [facility] [address] [place] [address] 03/06/2011 13:47:52 03/06/2011 15:00:58 [id number] Alejandro Gomez MD [facility] [address] [place] [address] 05/08/2011 14:05:17 05/08/2011 15:43:23 [id number] Alejandro Gomez MD [facility] [address] [place] [address] 08/30/2011 15:18:10 08/30/2011 16:14:53 [id number] Alejandro Gomez MD [facility] [address] [place] [address] 09/06/2011 15:28:53 09/06/2011 16:30:26 [id number] Alejandro Gomez MD [facility] [place] [address] [place] [address] 07/29/2012 14:14:28 08/01/2012 08:20:02 [id number] Alejandro Gomez MD [facility] [address] [place] [address] 08/08/2012 15:05:41 08/12/2012 10:06:18 [id number] Alejandro Gomez MD [facility] [address] [place] [address] 08/19/2012 15:06:29 08/19/2012 16:30:58 [id number] Alejandro Gomez MD [facility] [address] [place] [address] 10/21/2012 14:38:06 10/21/2012 15:02:32 [id number] Alejandro Gomez MD [facility] [address] [place] [address] [place] [address] 09/05/2013 13:48:05 09/05/2013 15:08:50 Routine care [id number] Threatened miscarriage [id number] Alejandro Gomez MD [facility] [address] [place], [place] [address] [address] 09/11/2013 15:11:22 09/16/2013 08:54:20 [id number] Threatened miscarriage [id number] Alejandro Gomez MD [facility] [address] [place] [address] [place] [address] 09/22/2013 08:56:23 09/23/2013 08:33:01 Primigravida [id number] * reviewed packet from OB * discuss nutrition & exercise * seatbelt use * obtain medical & ob history * order initial/op tional labs * discuss genetic testing * discuss/ad video engineer flue vaccine - prn * refer to nutrition - prn * refer to health families - prn * refer to WIC - prn * complete & send insurance precert - prn ([facility], [facility], [facility]) * order early u/s - prn * refer to SS - prn (options) * refer to OBS (early class) [id number] Zamzam Calix NP [facility] [address] [place] [address] 10/01/2013 11:07:06 10/01/2013 13:07:23 Primigravida [id number] Specialize d medical examination [id number] [facility] [id number] Tomi Mckinnon MD [facility] [address] [place] [address] 7 10/29/2013 11:19:36 10/29/2013 11:54:59 Primigravida [id number] Alejandro Gomez MD [facility] [address] [place] [address] 7 11/13/2013 14:22:09 11/13/2013 14:30:30 [id number] Zamzam Calix NP [facility] [address] [place] [address] 7 11/26/2013 10:41:34 11/26/2013 13:02:48 Primigravida [id number] Zamzam Calix NP [facility] [address] [place] [address] 7 12/24/2013 10:32:37 12/24/2013 13:39:55 Primigravida [id number] Alejandro Gomez MD [facility] [address] [place] [address] 7 01/22/2014 14:44:06 01/22/2014 15:52:56 Primigravida [id number] * reviewed packet from OB * discuss nutrition & exercise * seatbelt use * obtain medical & ob history * order initial/op tional labs * discuss genetic testing * discuss/ad video engineer flue vaccine - prn * refer to nutrition - prn * refer to health families - prn * refer to WIC - prn * complete & send insurance precert - prn ([facility], [facility]) * order early u/s - prn * refer to SS - prn (options) * refer to OBS (early class) Routine an tenatal care [id number] Tomi Mckinnon MD [facility] [address] [place] [address] 7 02/12/2014 13:44:59 02/12/2014 14:37:26 Routine care [id number] Alejandro Gomez MD [facility] [address] [place] [address] 7 02/16/2014 13:15:11 02/16/2014 15:00:56 Pain in pelvis 50797885 Rhesus isoimmunization with problem 540508023 [id number] Tricia Braxton MD [facility] [address] [place] [address] 7 02/26/2014 14:05:38 02/27/2014 09:49:35 Primigravida [id number] Routine an tenatal care 654719533 Gastroesop hageal reflux disease 639348098 [id number] Zamzam Calix NP [facility] [address] [address] 03/09/2014 14:14:11 03/09/2014 14:48:50 Primigravida [id number] Confirm classesCon firm pediatrici anCircumci clark informatio n [id number] Tricia Braxton MD [facility] [address] [place] [address] 7 03/23/2014 14:23:28 03/24/2014 08:48:15 Primigravida [id number] Alejandro Gomez MD [facility] [address] [place] [address] 7 04/06/2014 15:14:35 04/08/2014 09:34:26 Primigravida 227233753 GBS informatio n given Contracept ion discussed and informatio n given Review signs of labor [id number] Zamzam Calix NP [facility] [address] [address] 7 04/13/2014 11:21:11 04/13/2014 13:38:55 Primigravida [id number] Confirm classesCon firm pediatrici anCircumci clark informatio n [id number] Alejandro Gomez MD [facility] [address] [place] [address] 7 04/20/2014 13:36:12 04/20/2014 15:15:12 Primigravida 282215744 GBS informatio n given Contracept ion discussed and informatio n given Review signs of labor [id number] Tricia Braxton MD [facility] [address] [place] [address] 7 04/27/2014 13:55:22 04/28/2014 09:23:06 Primigravida [id number] Alejandro Gomez MD [facility] [address] [place] [address] 7 05/04/2014 13:54:43 05/04/2014 16:20:58 Primigravida 796510921 GBS informatio n given Contracept ion discussed and informatio n given Review signs of labor Routine an tenatal care 136670054 [id number] Tomi Mckinnon MD [facility] [address] [address] 05/12/2014 14:04:25 05/12/2014 14:49:10 Primigravida 449247963 [id number] Tomi Mckinnon MD [facility] [address] [place] [address] [place] [address] 07/08/2014 13:07:33 07/08/2014 14:23:39 care [id number] Tomi Mckinnon MD [facility] [address] [place] [address] [place] [address] 7 07/16/2014 08:58:36 07/22/2014 09:48:23 Implantation of subcutaneous contraceptive 854776583 [id number] Tomi Mckinnon MD [facility] [address] [place] [address] [place] [address] 08/21/2014 11:27:48 08/24/2014 08:13:23 Subcutaneous contraceptive implant present 315661484 Uses trans dermal contraception 329862370 [id number] Tomi Mckinnon MD [facility] [address] [place] [address] [place] [address] 01/15/2015 14:57:18 01/19/2015 14:26:46 Abnormal vaginal bleeding 085836122 [id number] Tao Junior MD [facility] [address] [place], [place] [address] [address] 06/28/2018 12:52:25 07/09/2018 11:49:46 Routine care 228096531 Z34.81 * reviewed packet from OB * discuss nutrition & exercise * seatbelt use * obtain medical & ob history * order initial/op tional labs * discuss genetic testing * discuss/ad video engineer flu vaccine - prn * refer to nutrition - prn * refer to health families - prn * refer to WIC - prn * complete & send insurance precert - prn ([facility], [facility]) * order early u/s - prn * refer to SS - prn (options) * refer to OBS (early class) Hyperemesi s gravidarum 55249142 O21.0 [id number] Tao Junior MD [facility] [address] [place] [address] [place] [address] 07/12/2018 14:03:12 07/12/2018 15:27:48 Routine care 862307924 Z34.81 * reviewed packet from OB * discuss nutrition & exercise * seatbelt use * obtain medical & ob history * order initial/op tional labs * discuss genetic testing * discuss/ad video engineer flu vaccine - prn * refer to nutrition - prn * refer to health families - prn * refer to WIC - prn * complete & send insurance precert - prn ([facility], [facility], [facility]) * order early u/s - prn * refer to SS - prn (options) * refer to OBS (early class) Screening for malignant neoplasm of cervix 516000268 Z12.4 Specialize d medical examination 18228099 Z11.8 Gestation period, 12 weeks 58692129 Z3A.12 hear t rate not observed 984770692 O76 [id number] Tomi Mckinnon MD [facility] [address] [place] [address] 7 08/09/2018 14:07:19 08/09/2018 15:28:23 Routine care 398096757 Z34.82 Gestation period, 17 weeks 03223406 Z3A.17 Gestation period, 18 weeks 74376990 Z3A.18 [id number] Daniel Soto MD [facility] [address] [place] [address] 7 08/23/2018 08:17:01 08/23/2018 11:38:39 Routine care 983820395 Z34.82 Gestation period, 19 weeks 71822410 Z3A.19 [id number] Tomi Mckinnon MD [facility] [address] [place] [address] 7 09/10/2018 14:58:12 09/11/2018 11:55:57 Routine care 427633907 Z34.82 Gestation period, 21 weeks 39707613 Z3A.21 [id number] Alejandro Gomez MD [facility] [address] [place] [address] 7 10/08/2018 14:56:26 10/08/2018 15:50:04 Gestation period, 26 weeks 96087215 Z3A.26 Routine an tenatal care 491286122 Z34.82 Gestation period, 25 weeks 93169126 Z3A.25 [id number] Tomi Mckinnon MD [facility] [address] [place] [address] [place] [address] 10/29/2018 11:03:01 10/29/2018 15:56:02 Blood group B Rh(D) negative 015835500 Z67.21 RhD negative 212333764 Z 01.83 Routine an tenatal care 834400335 Z34.83 Gestation period, 28 weeks 03950808 Z3A.28 [id number] Tomi Mckinnon MD [facility] [address] [place] [address] [place] [address] 10/29/2018 11:55:42 10/29/2018 15:25:19 Vaginal discharge 609677068 N89.8 see Nurse visit same day for orders [id number] Alejandro Gomez MD [facility] [address] [place] [address] [place] [address] 11/05/2018 13:41:34 11/05/2018 16:40:05 Screening for drug of abuse in urine specimen positive 525966552 R82.5 Gestation period, 29 weeks 42145280 Z3A.29 [id number] Tomi Mckinnon MD [facility] [address] [place] [address] [place] [address] 11/19/2018 13:58:33 11/19/2018 14:48:09 Routine care 498250909 Z34.83 Gestation period, 31 weeks 70443641 Z3A.31 Administra tion of diphtheria, pertussis, and tetanus vaccine 934389242 Z23 [id number] Tao Junior MD [facility] [address] [place] [address] [place] [address] 12/03/2018 14:21:42 12/03/2018 15:13:37 Gestation period, 33 weeks 67081978 Z3A.33 [id number] Tomi Mckinnon MD [facility] [address] [place] [address] [place] [address] 7 12/17/2018 15:58:04 12/17/2018 16:34:37 Routine care 590536861 Z34.83 Gestation period, 35 weeks 16512091 Z3A.35 Genital he rpes simplex 57418287 O98.313 Gastroesop hageal reflux disease 395022877 K21.9 [id number] Tomi Mckinnon MD [facility] [address] [place] [address] 7 12/24/2018 15:23:03 12/24/2018 16:23:43 Routine care 625159472 Z34.83 Gestation period, 36 weeks 07380198 Z3A.36 [id number] Tao Junior MD [facility] [address] [place] [address] 7 12/31/2018 13:45:54 12/31/2018 14:24:28 Routine care 647992085 Z34.83 Gestation period, 37 weeks 39256390 Z3A.37 [id number] Tao Junior MD [facility] [address] [place] [address] 7 01/07/2019 13:42:18 01/07/2019 14:15:12 Routine care 484533091 Z34.83 Gestation period, 38 weeks 87128765 Z3A.38 Health Concerns Section Related Observation LastModified by Organization Detai ls LastModified Time None Recorded Concern Status LastModified by Organization Details LastModified Time None Recorded Advance Directives Directive None Recorded Payers Insurance Date Sequence Insurance Name Policy Number Policy Kirkland Covered Member ID [place] Member ID Guarantor Name 06/16/2020 1 [facility] itembase - TOGETHER (MEDICAID HMO) Deepti Aguilar [id number] Deepti Aguilar 06/16/2020 1 [place] Deepti Aguilar [id number] Deepti Aguilar 06/16/2020 1 [facility] [employer] - TOGETHER (MEDICAID HMO) Deetpi Aguilar [id number] Deepti Aguilar OBGyn Episode Ob Episode Information Episode Created Date Number of Fetuses Patient Bloodtype Patient rh Status Prepregnancy Weight lbs Domestic Partner Domestic Partner Phone Father Name Leaf Blender Status 09/23/19 14 1 A Negative 96 Mayur Manzano CLOSED Fetus Data First Name Last Name Admitted to NICU Weight (g) Sex Living Outcome Pediatric Complications Fetus ID Race Codes Race Delivery Type Adalyn n 3543.68 75 F Full Term 69535 Vaginal (08258) Problems Problem Notes Pt had flu vax 03/2013 Problem Name Start Date End Date Resolution Snomed Code Not e Cyst of ovary 79310580 h/o ov cysts Teenage 378224426 En rolled in [facility] [employer] Depressive disorder 88464958 h/o suicidal ideations History of substance abuse 467526664 ER visit 012 Herpesvirus infection 32173464 Prophylaxis 36 wks History of RhD negative 572385 004 A neg Gastroesophageal reflux disease 541381469 Anemia 687975427 Proteinuria 25940511 Adams Calculation Initial Adams Date Initial Exam [...] Gestation 0 [email or web address] 09/22/2013 05/07/20 14 0 Pre-elmer Flowsheet Flowsheet Date 09/22/2013 Marquez Score Blood Edema Fundus Height Fundus Units Glucose Ketones Leukocytes Nitrite Labor Signs Protein Cervic Dilation Cervic Effacement Cervic Station neg none none none Negative Other (see comments ) neg Type Weight in lbs Pre/Post Dialysis Refused 99.8359135182330 BP Diastolic BP Location Tested BP Systolic [...] & advise. Pt is already enrolled in [employer], (her HS referred her). Pt has appt in place @ [place]. Discussed CF & ERA testing, pt will [...] Type Weight in lbs Pre/Post Dialysis Refused 99.1945852641677 BP Diastolic BP Location Tested BP Systolic [...] Type Weight in lbs Pre/Post Dialysis Refused 96.1290809962725 BP Diastolic BP Location Tested BP Systolic [...] Type Weight in lbs Pre/Post Dialysis Refused 98.4278743700122 BP Diastolic BP Location Tested BP Systolic [...] Type Weight in lbs Pre/Post Dialysis Refused 101.414175241509 BP Diastolic BP Location Tested BP Systolic [...] Type Weight in lbs Pre/Post Dialysis Refused 105.855894007650 BP Diastolic BP Location Tested BP Systolic [...] Type Weight in lbs Pre/Post Dialysis Refused 106.95495472314 BP Diastolic BP Location Tested BP Systolic [...] Type Weight in lbs Pre/Post Dialysis Refused 108.786167193953 BP Diastolic BP Location Tested BP Systolic [...] Type Weight in lbs Pre/Post Dialysis Refused 109.771395491576 BP Diastolic BP Location Tested BP Systolic BP Type 60 R arm 120 sitting Fetus Heart Rate Present A Present Fetus Movement A Yes Comments PT presents for return OB vi sit-no issues or concerns at this time- VLB// Pt missing a lot of school due to pain and continued nausea. She is requesting to go out of school and have a home kindergarten tutor so she can keep up with her school work. Flowsheet Date 03/23/2014 Marquez Score Blood Edema Fundus Height Fundus Units Glucose Ketones Leukocytes Nitrite Labor Signs Protein Cervic Dilation Cervic Effacement Cervic Station none 33 cm Uterine Contract ions Type Weight in lbs Pre/Post Dialysis Refused 112.813702073048 BP Diastolic BP Location Tested BP Systolic [...] Type Weight in lbs Pre/Post Dialysis Refused 117.556125781078 BP Diastolic BP Location Tested BP Systolic [...] Type Weight in lbs Pre/Post Dialysis Refused 118.202962965477 BP Diastolic BP Location Tested BP Systolic [...] Type Weight in lbs Pre/Post Dialysis Refused 119.565800224693 BP Diastolic BP Location Tested BP Systolic [...] Type Weight in lbs Pre/Post Dialysis Refused 121.512833035971 BP Diastolic BP Location Tested BP Systolic [...] Type Weight in lbs Pre/Post Dialysis Refused 124.800134049219 BP Diastolic BP Location Tested BP Systolic [...] Type Weight in lbs Pre/Post Dialysis Refused 125.721209880703 BP Diastolic BP Location Tested BP Systolic [...] Weight in lbs Pre/Post Dialysis Refused Weight 103.216083744066 BP Diastolic BP Location Tested BP Systolic [...] false Muscular Dystrophy false Cystic Fibrosis false [place] false Mental Retardation false Test for [...] Domestic Partner Domestic Partner Phone Father Name Leaf Blender Status 06/28/19 19 1 A Negative 107 Domestic Partner Elder Geronimo CLOSED Fetus Data First Name Last Name Admitted to NICU Weight (g) Sex Living Outcome Pediatric Complications Fetus ID Race Codes Race Delivery Type M 77009 Vaginal (02307) Problems Problem Notes Received flu vaccine this se ason. EPDS screen 15- patient states this is related to her hyperemesis symptoms, not depression.On Zantac- UDS positive for amphetamines- prob false positive Problem Name Start Date End Date Resolution Snomed Code Not e Hyperemesis gravidarum 06/28/2018 74122122 Group B Streptococcus carrier [id number] in urine - no culture needed at 36wks. Screening for drug of abuse in urine specimen positive 06/28/2018 196338142 cannabinoi d - 51-A filed hemorrhage 06/28/2018 9887967 1 2013- states she required blood transfusion. Asthma 06/28/2018 679148612 RhD negative 06/28/2018 571377622 receiv ed rhogam 07/04/18/ will need at 28 weeks as well. History of depression 07/30/2018 2240778 08 History of anxiety state 07/30/2018 654072863 Genital herpes simplex 06/28/2018 99031381 2011- only had initial outbreak Adams Calculation [...] relationship; shares custody with him. FOB in [place], stationed in [place]. Nutrition and expected weight gain discussed. Patient stating she is not able to keep any food/liquid down, has been to ER multiple times for hydration. Has tried samples for Bonjesta x1 week with no results. Patient consented to all routine labs. Zika virus reviewed, no plans for either to travel. Genetic testing discussed, patient interested in [id number] and Quad screen for NTD. Advised patient to review information and check insurance coverage, will have set up at [facility] if still interested. 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 Mckinnon. She would like to do [facility] genetics testing. Will order at next [...] Weight in lbs Pre/Post Dialysis Refused Weight 106.09777494745 BP Diastolic BP Location Tested BP Systolic [...] Weight in lbs Pre/Post Dialysis Refused Weight 108.031759742173 BP Diastolic BP Location Tested BP Systolic [...] Weight in lbs Pre/Post Dialysis Refused Weight 113.659264768096 BP Diastolic BP Location Tested BP Systolic [...] Weight in lbs Pre/Post Dialysis Refused Weight 117.202875209169 BP Diastolic BP Location Tested BP Systolic [...] timing UCs. Reports weeks of leakage . Asl Interpreter declined. Amnisure collected. Perineum dry, no pooling. [...] Weight in lbs Pre/Post Dialysis Refused Weight 118.535759350651 BP Diastolic BP Location Tested BP Systolic [...] Weight in lbs Pre/Post Dialysis Refused Weight 118.004264636272 BP Diastolic BP Location Tested BP Systolic [...] Weight in lbs Pre/Post Dialysis Refused Weight 119.950087677771 BP Diastolic BP Location Tested BP Systolic [...] Weight in lbs Pre/Post Dialysis Refused Weight 123.822293933558 BP Diastolic BP Location Tested BP Systolic [...] Weight in lbs Pre/Post Dialysis Refused Weight 123.347736667354 BP Diastolic BP Location Tested BP Systolic [...] Weight in lbs Pre/Post Dialysis Refused Weight 123.350808554267 BP Diastolic BP Location Tested BP Systolic [...] Weight in lbs Pre/Post Dialysis Refused Weight 123.638801799982 BP Diastolic BP Location Tested BP Systolic [...] older at estimated date of delivery false Indian, Thalassemia A or B false Neural tube defect true FOB's Uncle Congenital anomalies false Down's Syndrome true FOB's Uncle Kendrick-Sachs disease false Sickle Cell Disease Or Trait false Hemophilia false Muscular Dystrophy false Cystic Fibrosis false [place]'s Ch[place] false Mental Retardation false Test for Fragile X? 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
--- OUTSIDE RECORDS SUMMARY | 2024-12-23 20:33 | XMS_ITS ---
Author Name [facility] Organization Unknown Encounters Encounter Type Encounter Reason Primary Diagnosis Location Date Inpatient Acute pancreatitis with uninfected necrosis, unspecified Acute pancreatitis with uninfected necrosis, unspecified [employer] 09/07/2023 Ambulatory [place] [facility] 09/07/2023 Ambulatory [place] [facility] 09/07/2023 Care Team Organization Name Specialty Phone Email Start Date End Da te [employer] [employer] [facility] 09/08/2023 [employer] 09/08/2023 08/20/2024 [employer] 09/08/2023
[2024-12-23 22:48] VITALS: BP 111/70; PULSE 79; RESP 16; O2SAT 97
[2024-12-23 22:57] LABS: Appearance Urine Clear; Glucose Urine UA Negative (Negative); PH 6.0 (5.0-9.0); Specific Gravity - Urine 1.020 (1.005-1.025)
--- NOTE | 2024-12-23 23:48 | PM.IMHP ---
History of Present Illness Date of Service: 12/24/24 Chief Complaint: abd pain This is a 29-year-old female with pertinent history of alcohol use disorder, chronic alcoholic pancreatitis, splenic/portal vein thrombosis, history of necrotizing pancreatitis status post percutaneous drainage, complicated by disconnected pancreatic duct syndrome, mood disorder who presents to the emergency department for evaluation of abdominal pain. Patient states her symptoms started on the day of presentation. Patient was recently admitted at [facility] with intractable abdominal pain. Patient states recent CAT scan at [facility] was without any acute abnormality. She prefers not to have repeat imaging as she has had multiple abdominal CAT scans in the past. She has been having epigastric pain which is constant and radiates to the back. Minimal nausea but no vomiting and is able to tolerate p.o. intake. Pain not relieved with morphine at home. No fever, chills, chest pain, palpitations, shortness of breath, changes in urinary habits. Patient saw pain management recently who advised the patient to come to the ER for IV opiates if pain does not subside In the emergency department, patient with ongoing pain despite IV opiates Review of Systems Constitutional: Constitutional: Reports no additional constitutional complaints Cardiovascular: Cardiovascular: Reports no additional cardiovascular complaints Respiratory: Respiratory: Reports no additional respiratory complaints Gastrointestinal: Gastrointestinal: Reports abdominal pain Genitourinary: Genitourinary: Reports no additional female genitourinary complaints [facility] Medical History Alcohol abuse Necrotizing pancreatitis Benign tumor of breast Alcohol abuse Asthma Anxiety Surgical History No history of previous surgery Social History Household Members: Significant Other and Children Housing: House Do you presently have visiting nurse or other home services: No Alcohol intake: former Patient Tobacco Use Status: Never used Tobacco Smoked in Last 30 Days: Yes Use of substances other than those prescribed or required for medical reasons: Yes Substance Use Type: Prescription Drugs Substance Use Frequency: Daily Advance Directives: No Advance Directives Information Provided: No Do you have a plan to hurt others: No Plan Patient : No service: No Meds Allergies Allergy/AdvReac Type Severity Reaction Status Date / Time No Known Allergies Allergy Verified 12/23/24 19:23 Home Medications ?Medication ?Instructions ?Recorded ?Confirmed ?Last Taken ?Type hydroxyzine pamoate 50 mg capsule 50 mg PO Q6H PRN anxiety 07/05/24 07/31/24 Unknown History pregabalin 100 mg capsule 100 mg PO BID 07/05/24 07/31/24 07/30/24 History meloxicam 15 mg tablet 15 mg DAILY 07/31/24 07/31/24 07/30/24 History mirtazapine 7.5 mg tablet 7.5 mg PO DAILY 07/31/24 07/31/24 07/30/24 History pantoprazole 40 mg tablet,delayed 40 mg PO DAILY@0630 Heartburn 07/31/24 07/31/24 07/30/24 History release sertraline 50 mg tablet 50 mg PO DAILY 07/31/24 07/31/24 07/30/24 History Physical Exam Vital Signs and Narrative: Vital Signs: Last Vital Signs Temp 98.0 F 12/23/24 20:11 Pulse 79 12/23/24 22:48 Resp 16 12/23/24 22:48 BP 111/70 12/23/24 22:48 Pulse Ox 97 12/23/24 22:48 O2 Del Method Room Air 12/23/24 22:48 BMI result Body Mass Index 23.3 Middle-aged female lying in bed in no distress Neck supple, no JVD Regular rate and rhythm, S1-S2 heard Regular breath sounds bilaterally, no wheezing or crackles appreciated Abdomen with epigastric tenderness, no rigidity Patient is awake, alert and oriented to self, place, time and person ; no focal motor deficit Psych: Normal mood No pedal edema Results Labs 12/23/24 19:47 12/23/24 19:47 Labs: Laboratory Results - last 24 hr 12/23/24 12/23/24 19:47 22:49 MCV 76.5 L MCH 24.6 L MCHC 32.1 RDW 16.0 Plt Count 236 MPV 11.5 Immature Gran % (Auto) 0.2 Neut % (Auto) 56.0 Lymph % (Auto) 33.8 [place] % (Auto) 6.9 Eos % (Auto) 2.5 Baso % (Auto) 0.6 Lymph # (Auto) 1.8 [place] # (Auto) 0.4 Eos # (Auto) 0.1 Baso # (Auto) 0.0 Abs Immat Gran (auto) 0.01 Absolute Neuts (auto) 2.9 Absolute Nucleated RBC 0.000 Nucleated RBC % (auto) 0.0 Anion Gap 13 Estim Creat Clear Calc 108.2 Estimated GFR > 60 Random Glucose 119 H Calcium 8.3 L D Total Bilirubin 0.3 AST 38 H ALT 41 H Alkaline Phosphatase 167 H Total Protein 6.6 Albumin 4.3 Lipase < 4 L Beta HCG, Quant < 2 Urine Color Yellow Urine Appearance Clear Urine pH 6.0 Ur Specific [place] 1.020 Urine Protein Negative Urine Glucose (UA) Negative Urine Ketones Negative Urine Blood Negative Urine Nitrite Negative Ur Leukocyte Esterase Negative Assessment and Plan (1) Abdominal pain: Status: Acute (2) Chronic pancreatitis: Status: Acute Plan This is a 29-year-old female with pertinent history of alcohol use disorder, chronic alcoholic pancreatitis, splenic/portal vein thrombosis, history of necrotizing pancreatitis status post percutaneous drainage, complicated by disconnected pancreatic duct syndrome, mood disorder who presents to the emergency department for evaluation of abdominal pain. #. Intractable abdominal pain, recurrent in a patient with chronic alcoholic pancreatitis: Will admit patient with IV opiates p.r.n. for analgesia. Continue Creon and pregabalin. Outpatient follow-up with pain management. Consider abdominal imaging if symptoms did not improve #. Mood disorder: Continue home mood stabilizers #. Gastroesophageal reflux disease: On PPI Med rec pending DVT prophylaxis: Lovenox Full code Admit as inpatient and will require two night minimum hospital stay for IV opiates (as above), which is not possible in a lesser acute setting. Quality Stroke Does the patient have a stroke diagnosis?: No VTE Prior VTE?: No VTE Risk Level:: Medical - moderate - high VTE Device Contraindication: Treatment Not Indicated VTE Drug Contraindication: N/A - Med Ordered
[2024-12-24] VITALS (10 sets, daily range): BP systolic 104–121; BP diastolic 58–69; PULSE 70–82; RESP 14–25; TEMP 36.1–36.7; O2SAT 97–98; BMI 23.6
[2024-12-24 04:28] LABS: MANUAL DIFF FLAG NO
[2024-12-24 04:29] LABS: Hematocrit 36.7 % (37.0-47.0); Hemoglobin 11.3 g/dl (12.0-16.0); Imm Gran Abs Auto 0.02 X10*3/uL (0.00-0.03); Imm Gran Pct Auto 0.3 % (0.0-0.4); Lymphocytes Absolute Auto 2.8 X10*3/uL (1.2-4.9); Mean Corpuscular HGB Conc 30.8 g/dl (31.0-35.0); Mean Corpuscular Hemoglobin 24.1 pg (27.0-33.0); Mean Corpuscular Volume 78.3 fL (80.0-98.0); NRBC Abs Auto 0.000 X10*3/uL (0.0-0.012); NRBC Pct Auto 0.0 /100WBC (0.0-0.2); Platelet Count 217 X10*3/uL (160-400); Red Blood Count 4.69 X10*6/uL (4.20-5.50); White Blood Count 5.9 X10*3/uL (4.8-10.8)
[2024-12-24 04:49] LABS: Anion Gap 12 (12-20); Blood Urea Nitrogen 6 mg/dL (9-16); Calcium 8.8 mg/dL (8.4-10.2); Carbon Dioxide 25 mmol/L (22-29); Chloride 107 mmol/L (96-108); Creatinine Clr Calc Pharmacy 98.3; Estimated Glomerular Filt Rate > 60; Potassium 3.7 mmol/L (3.3-5.1); Sodium 140 mmol/L (135-145)
--- NOTE | 2024-12-24 08:23 | PHA.MEDREC ---
Addendum entered by Lazarus Colón PharmD 12/24/24 08:29: reviewed Original Note: Pharmacy Consult ? Medication Reconciliation Pharmacy has completed the medication reconciliation. Spoke to patient to confirm med list. Patient states she is no longer taking Meloxicam 15 mg, Mirtazapine 7.5 mg, Zofran 4 mg, and Pantoprazole 40 mg. Patient confirmed she is still taking Creon 24,000 , how ever last fill date was 10/22/24 for 30 days, Morphine 15 mg BID and Oxycodone 10 mg Q8H.
[2024-12-24] MEDS: 0.9 % Sodium Chloride Flush 3 ML SYRINGE IVFLUSH ×3 (09:18→21:18)
--- NOTE | 2024-12-24 09:51 | PC.NURSE ---
Pt refused Lyrica and Creon morning medication. Pt educated on need for both medications by this RN- pt continues to decline medications. MD Rodriguez
--- NOTE | 2024-12-24 12:46 | MHC.CM.PN ---
Pt. lives with her family, she does not use home health services or DEM, PCP confirmed: Bailee Lewis, HCP discussed, pt. declined to complete at this time. Family to transport her home at DC, DCP: home, self care, CM to follow for DC needs.
[2024-12-24] MEDS: Lipase/Prot/Amylase 24/76/120K 1 CAP CAPSULE.DR PO ×2 (13:09→18:26)
--- NOTE | 2024-12-24 16:23 | P.PNIM_ITS ---
Subjective Subjective Date of Service: 12/24/24 Physical Exam 2 Vital Signs: Vital Signs: Last Vital Signs Temp 98.1 F 12/24/24 00:57 Pulse 78 12/24/24 04:00 Resp 20 12/24/24 13:10 BP 110/69 12/24/24 04:00 Pulse Ox 98 12/24/24 04:00 O2 Del Method Room Air 12/24/24 04:00 BMI result Body Mass Index 23.3 Objective Data Active Medications Acetaminophen (Acetaminophen 325 Mg Tablet) 650 mg PO Q6H PRN PRN Reason: Pain, Mild 1-3,fever,headache Lipase/Protease/Amylase (Lipase/Prot/Amylase 24/76/120k 1 Cap Capsule.Dr) 1 cap PO TIDWM [facility] Last Admin: 12/24/24 13:09 Dose: 1 cap Documented By: MARCELA Calcium Carbonate (Calcium Carbonate 750 Mg Tab.Chew) 750 mg PO Q4H PRN PRN Reason: Heartburn Enoxaparin Sodium (Enoxaparin Sodium 40 Mg/0.4 Ml Syringe) 40 mg SUBCUT Q24H [facility] Last Admin: 12/24/24 01:11 Dose: 40 mg Documented By: SERA Hydromorphone HCl (Hydromorphone Hcl 1 Mg/Ml Syringe) 1.5 mg IVPUSH Q4H PRN; Protocol PRN Reason: Pain, Severe (Pain Scale 7-10) Last Admin: 12/24/24 13:10 Dose: 1.5 mg Documented By: MARCELA Hydroxyzine HCl (Hydroxyzine Hcl 50 Mg Tablet) 50 mg PO Q6H PRN PRN Reason: Anxiety Magnesium Hydroxide (Milk Of Magnesia 30 Ml Oral.Susp) 30 ml PO DAILY PRN PRN Reason: Constipation Melatonin (Melatonin 3 Mg Tablet) 6 mg PO BEDTIME PRN PRN Reason: Insomnia Ondansetron HCl (Ondansetron Hcl 4 Mg/2 Ml Vial) 4 mg IVPUSH Q8H PRN PRN Reason: Nausea and Vomiting Pregabalin (Pregabalin 150 Mg Capsule) 300 mg PO BID [facility] Last Admin: 12/24/24 09:51 Dose: Not Given Documented By: MARCELA Non-Admin Reason: Patient Refused Sertraline HCl (Sertraline Hcl 100 Mg Tablet) 100 mg PO DAILY [facility] Last Admin: 12/24/24 13:10 Dose: 100 mg Documented By: MARCELA Sodium Chloride (0.9 % Sodium Chloride Flush 3 Ml Syringe) 3 ml IVFLUSH QSHIFT [facility] Last Admin: 12/24/24 09:18 Dose: 3 ml Documented By: MARCELA Labs 12/24/24 04:20 12/24/24 04:20 Labs: Laboratory Results - last 24 hr 12/23/24 12/23/24 12/24/24 19:47 22:49 04:20 MCV 76.5 L 78.3 L MCH 24.6 L 24.1 L MCHC 32.1 30.8 L RDW 16.0 15.9 Plt Count 236 217 MPV 11.5 11.7 Immature Gran % (Auto) 0.2 0.3 Neut % (Auto) 56.0 42.8 L Lymph % (Auto) 33.8 47.3 H [place] % (Auto) 6.9 6.5 Eos % (Auto) 2.5 2.4 Baso % (Auto) 0.6 0.7 Lymph # (Auto) 1.8 2.8 [place] # (Auto) 0.4 0.4 Eos # (Auto) 0.1 0.1 Baso # (Auto) 0.0 0.0 Abs Immat Gran (auto) 0.01 0.02 Absolute Neuts (auto) 2.9 2.5 Absolute Nucleated RBC 0.000 0.000 Nucleated RBC % (auto) 0.0 0.0 Anion Gap 13 12 Estim Creat Clear Calc 108.2 98.3 Estimated GFR > 60 > 60 Random Glucose 119 H 118 H Calcium 8.3 L D 8.8 D Total Bilirubin 0.3 AST 38 H ALT 41 H Alkaline Phosphatase 167 H Total Protein 6.6 Albumin 4.3 Lipase < 4 L Beta HCG, Quant < 2 Urine Color Yellow Urine Appearance Clear Urine pH 6.0 Ur Specific [place] 1.020 Urine Protein Negative Urine Glucose (UA) Negative Urine Ketones Negative Urine Blood Negative Urine Nitrite Negative Ur Leukocyte Esterase Negative Assessment and Plan (1) Pancreatic steatorrhea: Status: Acute (2) Nausea & vomiting: Status: Acute Plan 29-year-old female with pertinent history of alcohol use disorder, chronic alcoholic pancreatitis, splenic/portal vein thrombosis, history of necrotizing pancreatitis status post percutaneous drainage, complicated by disconnected pancreatic duct syndrome, mood disorder who presents to the emergency department for evaluation of abdominal pain. Intractable abdominal pain, recurrent in a patient with chronic alcoholic pancreatitis pain conrol with diilaudid advance diet continue creon ivf if not eating Mood disorder: Continue home mood stabilizers Gastroesophageal reflux disease: On PPI DVT prophylaxis: Lovenox Full code Admit as inpatient and will require two night minimum hospital stay for IV opiates (as above), which is not possible in a lesser acute setting. Quality Stroke Does the patient have a stroke diagnosis?: No VTE Prior VTE?: No VTE Risk Level:: Medical - moderate - high VTE Device Contraindication: Treatment Not Indicated VTE Drug Contraindication: N/A - Med Ordered
--- NOTE | 2024-12-24 17:34 | PC.NURSE ---
Pt expressed to this RN her PRN pain medications are not effective and she wishes to increase the dose or take q3hr instead of q4hr. This RN reached out to MD Garza about situation. Per MD- pt to become NPO d/t increasing pain and will reassess pain administration. Pt updated on plan of care- NPO diet order placed. Pt medicated per AUG for pain. Call [facility] within reach, all needs met at this time.
[2024-12-25 01:18] VITALS: RESP 16
[2024-12-25 01:48] VITALS: RESP 16
[2024-12-25 03:38] VITALS: BP 102/61; PULSE 69; RESP 18; TEMP 36.6; O2SAT 96
[2024-12-25 07:15] VITALS: BP 110/68; PULSE 79; RESP 14; TEMP 36.3; O2SAT 96
[2024-12-25] MEDS: Lipase/Prot/Amylase 24/76/120K 1 CAP CAPSULE.DR PO ×2 (07:26→17:36)
[2024-12-25] MEDS: 0.9 % Sodium Chloride Flush 3 ML SYRINGE IVFLUSH ×3 (07:27→19:49)
--- NOTE | 2024-12-25 09:57 | HO.PM.IMPN ---
Subjective Subjective Date of Service: 12/26/24 Interval History: still reporting significant pain and not eating Physical Exam Vital Signs: Vital Signs: Last Vital Signs Temp 97.3 F 12/25/24 07:15 Pulse 79 12/25/24 07:15 Resp 14 12/25/24 07:15 BP 110/68 12/25/24 07:15 Pulse Ox 96 12/25/24 07:15 O2 Del Method Room Air 12/25/24 07:15 BMI result Body Mass Index 23.6 General: AO X 3, no acute distress Resp: CTA bilateral, no accessory muscles used CVS: S1,S2,RRR GI: soft, mild tenderness, non distended Neuro: motor grossly intact, alert Psych: appropriate affect, appropriate insight Objective Data Active Medications Acetaminophen (Acetaminophen 325 Mg Tablet) 650 mg PO Q6H PRN PRN Reason: Pain, Mild 1-3,fever,headache Last Admin: 12/24/24 18:27 Dose: 650 mg Documented By: MARCELA Lipase/Protease/Amylase (Lipase/Prot/Amylase /120k 1 Cap Capsule.Dr) 1 cap PO TIDWM [facility] Last Admin: 12/25/24 07:26 Dose: 1 cap Documented By: CHENTE Calcium Carbonate (Calcium Carbonate 750 Mg Tab.Chew) 750 mg PO Q4H PRN PRN Reason: Heartburn Enoxaparin Sodium (Enoxaparin Sodium 40 Mg/0.4 Ml Syringe) 40 mg SUBCUT Q24H [facility] Last Admin: 12/25/24 01:18 Dose: 40 mg Documented By: BEAU Hydromorphone HCl (Hydromorphone Hcl 1 Mg/Ml Syringe) 1.5 mg IVPUSH Q4H PRN; Protocol PRN Reason: Pain, Severe (Pain Scale 7-10) Last Admin: 12/25/24 07:23 Dose: 1.5 mg Documented By: CHENTE Hydroxyzine HCl (Hydroxyzine Hcl 50 Mg Tablet) 50 mg PO Q6H PRN PRN Reason: Anxiety Magnesium Hydroxide (Milk Of Magnesia 30 Ml Oral.Susp) 30 ml PO DAILY PRN PRN Reason: Constipation Melatonin (Melatonin 3 Mg Tablet) 6 mg PO BEDTIME PRN PRN Reason: Insomnia Ondansetron HCl (Ondansetron Hcl 4 Mg/2 Ml Vial) 4 mg IVPUSH Q8H PRN PRN Reason: Nausea and Vomiting Pregabalin (Pregabalin 150 Mg Capsule) 300 mg PO BID [facility] Last Admin: 12/25/24 07:24 Dose: 300 mg Documented By: CHENTE Sertraline HCl (Sertraline Hcl 100 Mg Tablet) 100 mg PO DAILY [facility] Last Admin: 12/25/24 07:25 Dose: 100 mg Documented By: CHENTE Sodium Chloride (0.9 % Sodium Chloride Flush 3 Ml Syringe) 3 ml IVFLUSH QSHIFT [facility] Last Admin: 12/25/24 07:27 Dose: 3 ml Documented By: CHENTE Labs 12/24/24 04:20 12/24/24 04:20 Labs: Laboratory Results - last 24 hr 12/23/24 12/23/24 12/24/24 19:47 22:49 04:20 MCV 76.5 L 78.3 L MCH 24.6 L 24.1 L MCHC 32.1 30.8 L RDW 16.0 15.9 Plt Count 236 217 MPV 11.5 11.7 Immature Gran % (Auto) 0.2 0.3 Neut % (Auto) 56.0 42.8 L Lymph % (Auto) 33.8 47.3 H [place] % (Auto) 6.9 6.5 Eos % (Auto) 2.5 2.4 Baso % (Auto) 0.6 0.7 Lymph # (Auto) 1.8 2.8 [place] # (Auto) 0.4 0.4 Eos # (Auto) 0.1 0.1 Baso # (Auto) 0.0 0.0 Abs Immat Gran (auto) 0.01 0.02 Absolute Neuts (auto) 2.9 2.5 Absolute Nucleated RBC 0.000 0.000 Nucleated RBC % (auto) 0.0 0.0 Anion Gap 13 12 Estim Creat Clear Calc 108.2 98.3 Estimated GFR > 60 > 60 Random Glucose 119 H 118 H Calcium 8.3 L D 8.8 D Total Bilirubin 0.3 AST 38 H ALT 41 H Alkaline Phosphatase 167 H Total Protein 6.6 Albumin 4.3 Lipase < 4 L Beta HCG, Quant < 2 Urine Color Yellow Urine Appearance Clear Urine pH 6.0 Ur Specific [place] 1.020 Urine Protein Negative Urine Glucose (UA) Negative Urine Ketones Negative Urine Blood Negative Urine Nitrite Negative Ur Leukocyte Esterase Negative Assessment and Plan (1) Pancreatic steatorrhea: Status: Acute (2) Nausea & vomiting: Status: Acute Plan 29-year-old female with pertinent history of alcohol use disorder, chronic alcoholic pancreatitis, splenic/portal vein thrombosis, history of necrotizing pancreatitis status post percutaneous drainage, complicated by disconnected pancreatic duct syndrome, mood disorder who presents to the emergency department for evaluation of abdominal pain. Intractable abdominal pain, recurrent in a patient with chronic alcoholic pancreatitis pain conrol with dilaudid advance diet continue creon ivf if not eating Mood disorder: Continue home mood stabilizers Gastroesophageal reflux disease: On PPI DVT prophylaxis: Lovenox Full code Admit as inpatient and will require two night minimum hospital stay for IV opiates (as above), which is not possible in a lesser acute setting. Quality Stroke Does the patient have a stroke diagnosis?: No VTE Prior VTE?: No VTE Risk Level:: Medical - moderate - high VTE Device Contraindication: Treatment Not Indicated VTE Drug Contraindication: N/A - Med Ordered
[2024-12-25 15:18] VITALS: BP 106/63; PULSE 70; RESP 18; TEMP 36.3; O2SAT 97
[2024-12-25] MEDS: oxyCODONE HCl Immed Release 5 MG TABLET 10 MG PO (17:36)
[2024-12-25 19:10] VITALS: BP 108/53; PULSE 71; RESP 18; TEMP 36.7; O2SAT 94
[2024-12-26 03:35] VITALS: BP 109/66; PULSE 90; RESP 18; TEMP 36.3; O2SAT 97
[2024-12-26 07:33] VITALS: BP 101/67; PULSE 65; RESP 16; TEMP 36.7; O2SAT 99
[2024-12-26] MEDS: Lipase/Prot/Amylase 24/76/120K 1 CAP CAPSULE.DR PO ×3 (08:38→17:16)
[2024-12-26] MEDS: 0.9 % Sodium Chloride Flush 3 ML SYRINGE IVFLUSH ×2 (08:39→21:29)
[2024-12-26] MEDS: oxyCODONE HCl Immed Release 5 MG TABLET 10 MG PO (09:35)
--- NOTE | 2024-12-26 11:18 | MHC.CM.PN ---
Per MD rounds patient not medically cleared for dc. No change to dc plan. CM will continue to follow.
--- NOTE | 2024-12-26 11:25 | P.PNIM_ITS ---
Subjective Subjective Date of Service: 12/26/24 Interval History: Still has pain but tolerating clear liquid diet Physical Exam 2 Vital Signs: Vital Signs: Last Vital Signs Temp 98.0 F 12/26/24 07:33 Pulse 65 12/26/24 07:33 Resp 16 12/26/24 07:33 BP 101/67 12/26/24 07:33 Pulse Ox 99 12/26/24 07:33 O2 Del Method Room Air 12/26/24 07:33 BMI result Body Mass Index 23.6 General: AO X 3, no acute distress Abd soft, Non specific tenderness Objective Data Active Medications Acetaminophen (Acetaminophen 325 Mg Tablet) 650 mg PO Q6H PRN PRN Reason: Pain, Mild 1-3,fever,headache Last Admin: 12/24/24 18:27 Dose: 650 mg Documented By: MARCELA Lipase/Protease/Amylase (Lipase/Prot/Amylase /120k 1 Cap Capsule.Dr) 1 cap PO TIDWM [facility] Last Admin: 12/26/24 08:38 Dose: 1 cap Documented By: CHENTE Calcium Carbonate (Calcium Carbonate 750 Mg Tab.Chew) 750 mg PO Q4H PRN PRN Reason: Heartburn Enoxaparin Sodium (Enoxaparin Sodium 40 Mg/0.4 Ml Syringe) 40 mg SUBCUT Q24H [facility] Last Admin: 12/25/24 23:46 Dose: 40 mg Documented By: PORSCHE Hydromorphone HCl (Hydromorphone Hcl 1 Mg/Ml Syringe) 1.5 mg IVPUSH Q4H PRN; Protocol PRN Reason: Pain, Severe (Pain Scale 7-10) Last Admin: 12/26/24 08:39 Dose: 1.5 mg Documented By: CHENTE Hydroxyzine HCl (Hydroxyzine Hcl 50 Mg Tablet) 50 mg PO Q6H PRN PRN Reason: Anxiety Magnesium Hydroxide (Milk Of Magnesia 30 Ml Oral.Susp) 30 ml PO DAILY PRN PRN Reason: Constipation Melatonin (Melatonin 3 Mg Tablet) 6 mg PO BEDTIME PRN PRN Reason: Insomnia Ondansetron HCl (Ondansetron Hcl 4 Mg/2 Ml Vial) 4 mg IVPUSH Q8H PRN PRN Reason: Nausea and Vomiting Oxycodone HCl (Oxycodone Hcl Immed Release 5 Mg Tablet) 10 mg PO Q4H PRN PRN Reason: Pain, Moderate(Pain Scale 4-6) Last Admin: 12/26/24 09:35 Dose: 10 mg Documented By: EDUARDO Pregabalin (Pregabalin 150 Mg Capsule) 300 mg PO BID [facility] Last Admin: 12/26/24 08:38 Dose: 300 mg Documented By: CHENTE Sertraline HCl (Sertraline Hcl 100 Mg Tablet) 100 mg PO DAILY [facility] Last Admin: 12/26/24 08:38 Dose: 100 mg Documented By: CHENTE Sodium Chloride (0.9 % Sodium Chloride Flush 3 Ml Syringe) 3 ml IVFLUSH QSHIFT [facility] Last Admin: 12/26/24 08:39 Dose: 3 ml Documented By: CHENTE Labs 12/24/24 04:20 12/24/24 04:20 Labs: Laboratory Results - last 24 hr 12/23/24 12/23/24 12/24/24 19:47 22:49 04:20 MCV 76.5 L 78.3 L MCH 24.6 L 24.1 L MCHC 32.1 30.8 L RDW 16.0 15.9 Plt Count 236 217 MPV 11.5 11.7 Immature Gran % (Auto) 0.2 0.3 Neut % (Auto) 56.0 42.8 L Lymph % (Auto) 33.8 47.3 H [place] % (Auto) 6.9 6.5 Eos % (Auto) 2.5 2.4 Baso % (Auto) 0.6 0.7 Lymph # (Auto) 1.8 2.8 [place] # (Auto) 0.4 0.4 Eos # (Auto) 0.1 0.1 Baso # (Auto) 0.0 0.0 Abs Immat Gran (auto) 0.01 0.02 Absolute Neuts (auto) 2.9 2.5 Absolute Nucleated RBC 0.000 0.000 Nucleated RBC % (auto) 0.0 0.0 Anion Gap 13 12 Estim Creat Clear Calc 108.2 98.3 Estimated GFR > 60 > 60 Random Glucose 119 H 118 H Calcium 8.3 L D 8.8 D Total Bilirubin 0.3 AST 38 H ALT 41 H Alkaline Phosphatase 167 H Total Protein 6.6 Albumin 4.3 Lipase < 4 L Beta HCG, Quant < 2 Urine Color Yellow Urine Appearance Clear Urine pH 6.0 Ur Specific [place] 1.020 Urine Protein Negative Urine Glucose (UA) Negative Urine Ketones Negative Urine Blood Negative Urine Nitrite Negative Ur Leukocyte Esterase Negative Assessment and Plan (1) Pancreatic steatorrhea: Status: Acute (2) Nausea & vomiting: Status: Acute Plan 29-year-old female with pertinent history of alcohol use disorder, chronic alcoholic pancreatitis, splenic/portal vein thrombosis, history of necrotizing pancreatitis status post percutaneous drainage, complicated by disconnected pancreatic duct syndrome, mood disorder who presents to the emergency department for evaluation of abdominal pain. Intractable abdominal pain, recurrent in a patient with chronic alcoholic pancreatitis pain conrol with dilaudid and oxycodone advance diet continue creon ivf if not eating Mood disorder: Continue home mood stabilizers Gastroesophageal reflux disease: On PPI DVT prophylaxis: Lovenox Full code Admit as inpatient and will require two night minimum hospital stay for IV opiates (as above), which is not possible in a lesser acute setting. Quality Stroke Does the patient have a stroke diagnosis?: No VTE Prior VTE?: No VTE Risk Level:: Medical - moderate - high VTE Device Contraindication: Treatment Not Indicated VTE Drug Contraindication: N/A - Med Ordered
[2024-12-26 12:47] LABS: Anion Gap 11 (12-20); Blood Urea Nitrogen 8 mg/dL (9-16); Calcium 8.6 mg/dL (8.4-10.2); Carbon Dioxide 24 mmol/L (22-29); Chloride 106 mmol/L (96-108); Creatinine Clr Calc Pharmacy 120.4; Estimated Glomerular Filt Rate > 60; Lipase < 4 U/L (8-78); Potassium 3.8 mmol/L (3.3-5.1); Sodium 137 mmol/L (135-145)
[2024-12-26 15:20] VITALS: BP 103/66; PULSE 75; RESP 18; TEMP 36.3; O2SAT 96
[2024-12-26 19:52] VITALS: BP 108/66; PULSE 80; RESP 18; TEMP 36.8; O2SAT 97
[2024-12-27 04:00] VITALS: BP 118/76; PULSE 67; RESP 20; TEMP 36.3; O2SAT 100
[2024-12-27 07:40] VITALS: BP 108/60; PULSE 67; RESP 18; TEMP 36.3; O2SAT 98
[2024-12-27] MEDS: Lipase/Prot/Amylase 24/76/120K 1 CAP CAPSULE.DR PO ×3 (09:09→16:14)
[2024-12-27] MEDS: 0.9 % Sodium Chloride Flush 3 ML SYRINGE IVFLUSH ×3 (09:16→19:33)
--- NOTE | 2024-12-27 09:59 | P.PNIM_ITS ---
Subjective Subjective Date of Service: 12/27/24 Interval History: Still c/o pain, lipase normal. Physical Exam 2 Vital Signs: Vital Signs: Last Vital Signs Temp 97.4 F 12/27/24 07:40 Pulse 67 12/27/24 07:40 Resp 18 12/27/24 07:40 BP 108/60 12/27/24 07:40 Pulse Ox 98 12/27/24 07:40 O2 Del Method Room Air 12/27/24 07:40 BMI result Body Mass Index 23.6 General: AO X 3, no acute distress Abd soft, Non specific tenderness Objective Data Active Medications Acetaminophen (Acetaminophen 325 Mg Tablet) 650 mg PO Q6H PRN PRN Reason: Pain, Mild 1-3,fever,headache Last Admin: 12/24/24 18:27 Dose: 650 mg Documented By: MARCELA Lipase/Protease/Amylase (Lipase/Prot/Amylase //120k 1 Cap Capsule.Dr) 1 cap PO TIDWM [facility] Last Admin: 12/27/24 09:09 Dose: 1 cap Documented By: STEPHANIE Calcium Carbonate (Calcium Carbonate 750 Mg Tab.Chew) 750 mg PO Q4H PRN PRN Reason: Heartburn Enoxaparin Sodium (Enoxaparin Sodium 40 Mg/0.4 Ml Syringe) 40 mg SUBCUT Q24H [facility] Last Admin: 12/27/24 01:21 Dose: 40 mg Documented By: PORSCHE Hydromorphone HCl (Hydromorphone Hcl 1 Mg/Ml Syringe) 1.5 mg IVPUSH Q4H PRN; Protocol PRN Reason: Pain, Severe (Pain Scale 7-10) Last Admin: 12/27/24 09:10 Dose: 1.5 mg Documented By: STEPHANIE Hydroxyzine HCl (Hydroxyzine Hcl 50 Mg Tablet) 50 mg PO Q6H PRN PRN Reason: Anxiety Magnesium Hydroxide (Milk Of Magnesia 30 Ml Oral.Susp) 30 ml PO DAILY PRN PRN Reason: Constipation Melatonin (Melatonin 3 Mg Tablet) 6 mg PO BEDTIME PRN PRN Reason: Insomnia Ondansetron HCl (Ondansetron Hcl 4 Mg/2 Ml Vial) 4 mg IVPUSH Q8H PRN PRN Reason: Nausea and Vomiting Oxycodone HCl (Oxycodone Hcl Immed Release 5 Mg Tablet) 10 mg PO Q4H PRN PRN Reason: Pain, Moderate(Pain Scale 4-6) Last Admin: 12/26/24 09:35 Dose: 10 mg Documented By: EDUARDO Pregabalin (Pregabalin 150 Mg Capsule) 300 mg PO BID [facility] Last Admin: 12/27/24 09:09 Dose: 300 mg Documented By: STEPHANIE Sertraline HCl (Sertraline Hcl 100 Mg Tablet) 100 mg PO DAILY [facility] Last Admin: 12/27/24 09:09 Dose: 100 mg Documented By: STEPHANIE Sodium Chloride (0.9 % Sodium Chloride Flush 3 Ml Syringe) 3 ml IVFLUSH QSHIFT [facility] Last Admin: 12/27/24 09:16 Dose: 3 ml Documented By: STEPHANIE Labs 12/24/24 04:20 12/26/24 12:17 Labs: Laboratory Results - last 24 hr 12/26/24 12:17 Anion Gap 11 L Estim Creat Clear Calc 120.4 Estimated GFR > 60 Random Glucose 102 Calcium 8.6 Lipase < 4 L Assessment and Plan (1) Pancreatic steatorrhea: Status: Acute (2) Nausea & vomiting: Status: Acute Plan 29-year-old female with pertinent history of alcohol use disorder, chronic alcoholic pancreatitis, splenic/portal vein thrombosis, history of necrotizing pancreatitis status post percutaneous drainage, complicated by disconnected pancreatic duct syndrome, mood disorder who presents to the emergency department for evaluation of abdominal pain. Intractable abdominal pain, recurrent in a patient with chronic alcoholic pancreatitis IV Pain med to PO only advance diet to regular continue creon ivf if not eating Mood disorder: Continue home mood stabilizers Gastroesophageal reflux disease: On PPI DVT prophylaxis: Lovenox Full code Admit as inpatient and will require two night minimum hospital stay for IV opiates (as above), which is not possible in a lesser acute setting. home later today if doing better Quality Stroke Does the patient have a stroke diagnosis?: No VTE Prior VTE?: No VTE Risk Level:: Medical - moderate - high VTE Device Contraindication: Treatment Not Indicated VTE Drug Contraindication: N/A - Med Ordered
[2024-12-27 15:34] VITALS: BP 107/63; PULSE 88; RESP 18; TEMP 36.5; O2SAT 96
[2024-12-27] MEDS: oxyCODONE HCl Immed Release 5 MG TABLET 10 MG PO ×2 (17:02→21:22)
[2024-12-27 19:59] VITALS: BP 106/57; PULSE 72; RESP 18; TEMP 36.6; O2SAT 97
[2024-12-28 07:51] VITALS: BP 101/60; PULSE 74; RESP 18; TEMP 36; O2SAT 98
[2024-12-28] MEDS: oxyCODONE HCl Immed Release 5 MG TABLET 10 MG PO (08:22)
[2024-12-28] MEDS: Lipase/Prot/Amylase 24/76/120K 1 CAP CAPSULE.DR PO ×2 (08:22→13:09)
[2024-12-28] MEDS: 0.9 % Sodium Chloride Flush 3 ML SYRINGE IVFLUSH (08:22)
--- NOTE | 2024-12-28 09:28 | PM.DS ---
DS: Providers Provider Date of Service: 12/28/24 Date of admission: 12/23/24 23:45 Date of discharge: 12/28/24 Primary care physician: Bailee Lewis MD DS: Diagnosis Discharge Diagnosis (1) Pancreatic steatorrhea: Status: Acute (2) Nausea & vomiting: Status: Acute DS: Summary Hospital Course Hospital Course: Chief Complaint: abd pain This is a 29-year-old female with pertinent history of alcohol use disorder, chronic alcoholic pancreatitis, splenic/portal vein thrombosis, history of necrotizing pancreatitis status post percutaneous drainage, complicated by disconnected pancreatic duct syndrome, mood disorder who presents to the emergency department for evaluation of abdominal pain. Patient states her symptoms started on the day of presentation. Patient was recently admitted at [facility] with intractable abdominal pain. Patient states recent CAT scan at [facility] was without any acute abnormality. She prefers not to have repeat imaging as she has had multiple abdominal CAT scans in the past. She has been having epigastric pain which is constant and radiates to the back. Minimal nausea but no vomiting and is able to tolerate p.o. intake. Pain not relieved with morphine at home. No fever, chills, chest pain, palpitations, shortness of breath, changes in urinary habits. Patient saw pain management recently who advised the patient to come to the ER for IV opiates if pain does not subside In the emergency department, patient with ongoing pain despite IV opiates.. Addendum by me: Of note this patient was admitted to [facility] from 12/09 to for similar presenation with the following A/P: 29 y/o female with history of chronic pancreatitis secondary ETOH, chronic abdominal pain (per patient on?MS contin 15mg BID, morphine 15mg TID PRN, and lyrica 300mg BID), splenic and portal vein thrombosis, h/o necrotizing pancreatitis with history of IR percutaneous drainage admitted for epigastric abdominal pain with unknown eitology. CT?Abdomen and Pelvis show no acute finding.? Discharge?Recommendations for PCP: Patient is currently on narcotic contract with her PCP.?Recommended patient to see?primary care physician after discharge?for pain medication prescription. Patient is not following?PCP recommendations ?for morphine IR. She was prescribed to take morphine IR 15mg Q8hrs PRN. She?reports that she takes? Morphine IR 45mg (3 tablets)?at once because Morphine IR 15mg is not controlling her pain.?She also?reports she sometimes takes more than recommended dosage per day due to uncontrolled pain. 1. Consider increasing MS contin from 15mg Q12hr to?MS contin 15 mg?TID or MS contin 20mg TID in order to better manage her chronic pain through out the day 2. Continue Morphine 15mg IR Q8hr PRN Hospital course: Patient was admitted for pain management of abdominal pain that she related it has been going on for more than a year attributed to chronic pancreatitis. A CT of the abdomen and pelvis was recommended but she stated that a recent CT at [facility] was unremarkable and did not want another CT done (a Juy 8 CT at [facility] show No acute intra-abdominal abnormality. Interval resolution of previous anterior pancreatic pseudocyst. ) Llipase level was within normal in spite of this the patient was treated with IV pain medication IV fluid and ultimately her diet was advanced she is tolerating regular diet again I discussed with her and appearing has been ongoing for nearly a year and no change in nature at this point she is prescribed oxycodone on outpatient basis. She follow-up with a GI doctor in the [place] area she is advised to follow up with the GI doctor and given the chronicity of the pain she may need to be referred to a pain clinic for better pain control this has been discussed with her. Her abdominal exam is fairly benign. Again was offered CT of abdomen but said there is a plan for an outpatient MRI of abdoemen Time Attestation Discharge Coordination Time (in mins): 45 Quality: Safe Use of Opioids Does Pt have an Active Cancer Diagnosis on the Problem List?: No Quality: Stroke Does the patient have a stroke diagnosis?: No Physical Exam Vital Signs: Vital Signs: Last Vital Signs Temp 96.8 F 12/28/24 07:51 Pulse 74 12/28/24 07:51 Resp 18 12/28/24 07:51 BP 101/60 12/28/24 07:51 Pulse Ox 98 12/28/24 07:51 O2 Del Method Room Air 12/28/24 07:51 BMI result Body Mass Index 23.6 DS: Data Data Completed and Pending Completed studies during hospitalization [Text1]: Procedures Detoxification Services for Substance Abuse Treatment (09/04/23) Discharge Plan Discharge Anticipated Discharge Date/Time: 12/28/24 09:28 Patient Disposition: Home, Self-Care Discharge Diagnosis: Acute on chronic abdominal pain Referrals: Bailee Lewis MD [Primary Care Provider, Internal Medicine] - 1 Week Discharge Medications: Continued hydroxyzine pamoate 50 mg capsule 50 mg PO Q6H PRN (Reason: anxiety) Creon 24,000-76,000 -120,000 unit Capsule,Delayed Release(Dr/Ec) 1 cap PO TIDWM Qty: 270 0RF sertraline 100 mg tablet 100 mg PO DAILY pregabalin 300 mg capsule 300 mg PO BID oxycodone 10 mg tablet 10 mg PO Q8H morphine 15 mg tablet extended release 15 mg PO BID Discharge Orders: Discharge Order (Routine); Ordered 12/28/24 Ordered By: Alexandro Garza Diet: Advance to usual diet Activity on Discharge: As tolerated Stand Alone Forms: Patient Portal Discharge page Print Language: Greenlandic Care Plan Goals: Abdominal pain control Health Concerns: Chronic abdominal pain, chronic pancreatitis Plan of Treatment: Take Oxycodone as directed and follow up with your GI doctor and Primary care physician You may need to be refer to pain clinic for better pain control for now continue oxycodone as previously prescribed Assessment: see above
--- NOTE | 2024-12-28 10:46 | MHC.CM.PN ---
Addendum entered by Tonie Castro 12/28/24 13:55: PT UNABLE TO ARRANGE TRANSPORT ASHLI BOOKED Original Note: PT TO DISCHARGE HOME TODAY VIA FAMILY TRANSPORT
[2024-12-28 13:34] VITALS: BP 101/62; PULSE 70; RESP 16; TEMP 36.4; O2SAT 99
== END 2024-12-28 13:35 | disposition home or self-care (01) | DRG 282 ==
LOC: HO.ED 20:45 → HO.EDOVER 12-24 00:20 → HO.S3 12-24 19:20
PROVIDERS: Physician Assistant; Admitting Provider Student in an Organized Health Care Education/Training Program; Emergency Provider Emergency Medicine; PCP General Practice; Visit Provider Internal Medicine
DX: K86.0 Alcohol-induced chronic pancreatitis (principal); F10.11 Alcohol abuse, in remission; F39 Unspecified mood [affective] disorder; K21.9 Gastro-esophageal reflux disease without esophagitis; Z79.899 Other long term (current) drug therapy
CPT/HCPCS: 36415; 80048; 80053; 81003; 83690; 84702; 85025; 99285; J1171; J1650

== ENCOUNTER → 2024-12-23 23:45 | Outpatient (BNV) | payer MEDICAID, SELFPAY | PROVIDERS: Admitting Provider Student in an Organized Health Care Education/Training Program; Emergency Provider Emergency Medicine; PCP General Practice; Visit Provider Student in an Organized Health Care Education/Training Program | DX: R10.9 Unspecified abdominal pain (principal); K86.1 Other chronic pancreatitis; K90.3 Pancreatic steatorrhea; R11.2 Nausea with vomiting, unspecified | CPT/HCPCS: 99222; 99232 ==

== ENCOUNTER → 2025-01-07 10:28 | Outpatient (BNV) | payer MEDICAID, SELFPAY | PROVIDERS: PCP General Practice; Visit Provider Radiology Diagnostic Radiology | DX: K85.92 Acute pancreatitis with infected necrosis, unspecified (principal); K76.0 Fatty (change of) liver, not elsewhere classified | CPT/HCPCS: 74183 ==

== ENCOUNTER 2025-01-07 11:14 | Outpatient (REF) | payer MEDICAID, SELFPAY ==
--- NOTE | ~2025-01-07 | MR_ITS ---
EXAMINATION: MR ABDOMEN WITHOUT THEN WITH IV CONTRAST HISTORY: NECROTIZING PANCREATITIS COMPARISON: Comparison is made with the prior examination dated 07/06/2024. TECHNIQUE: Axial in and out of phase T1-weighted gradient echo, axial diffusion weighted, and axial and coronal HASTE T2 with fat saturation images were obtained through the abdomen. Subsequently, fat suppressed axial and coronal T1-weighted images were obtained after the intravenous administration of 6.5 mL Gadavist. FINDINGS: Liver: There is diffuse loss of signal intensity in the liver on opposed phase imaging, consistent with steatosis. There is no enhancing liver mass. The hepatic and portal veins are patent. There is no intrahepatic biliary dilatation. Gallbladder/biliary tree: The patient is status post cholecystectomy. The common bile duct is normal in caliber. No intraluminal filling defects are identified to suggest choledocholithiasis. Spleen: The spleen is unremarkable. Pancreas: Again seen is absence of the pancreatic tail and portions of the pancreatic neck. This is likely due to prior necrotic pancreatitis. The pancreatic tissue in the body and head enhances normally. There is mild prominence of the pancreatic duct in the body without change. No enhancing pancreatic mass is identified. Adrenals: The adrenal glands are unremarkable. Kidneys: The kidneys are unremarkable. There is no hydronephrosis. Lymph nodes: There is no retroperitoneal lymphadenopathy in the upper abdomen. Fluid: There is no ascites in the upper abdomen. Visualized bowel: The visualized small and large bowel loops are unremarkable in appearance. Visualized bones: The visualized bones demonstrate normal marrow signal intensity. MR/MR abdomen wo/w con IMPRESSION: 1. 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 Mild prominence of the pancreatic duct in the body without change. 2. Hepatic steatosis. Electronically signed by: Chris Eagle MD 01/07/2025 01:27 PM EDT
--- OUTSIDE RECORDS SUMMARY | 2025-01-07 12:02 | XMS_ITS | Clinical Summary ---
Author Organization [facility] Address [address] [place] [address] Care Team Providers Care Gold Letterer Name Role Phone Ibeth Lassiter MD Primary Care Provider [phone] Allergies Active Allergy Reactions Criticality Noted Date [...] pur e alcohol) 10-12 nips per day [facility] Utilities Answer Date Recorded In the past 12 months has [employer], gas, oil, or water [employer] threatened to shut off services in your [...] place to sleep or slept in a alf (including now)? No 09/08/2023 Comments Unknown Sex [...] series) 2014 Pap Smear (Ages 21-65) 2016 HPV Vaccines (1 - 3-dose SCD M series) 2022 COVID-19 Vaccine (2023-2 5 season) 2024 Influenza Vaccine 01/02/2025 04/04/2011 Pneumococcal Vaccine: Pediat jaskaran (0-5 Years) and At-Risk Patients (6 to 49 Years) Aged Out No longer eligible b ased on patient's age to complete this topic Insurance [employer] [facility] Advance Directives * Full Code (Latest Code Status on File) Date Activated Date Inactivated Comments 09/08/2023 12:13 AM Care Teams Gold Letterer Relationship Specialty Start Date End Date Ibeth Lassiter MD [address] [place] [address] [phone] PCP - General Family Medicine 09/07/23
--- OUTSIDE RECORDS SUMMARY | 2025-01-07 12:02 | XMS_ITS | Clinical Summary ---
Author Organization [facility] Address [address] [address] Phone Care Team Providers Care Vehicle Fuel Systems Converter Name Role Phone Ibeth Lassiter MD Primary Care Provider [phone] Medications acetaminophen (TYLENOL) 325 mg tablet Take [...] Type Department Care Team Description 11/26/2024 Telephone [facility] [address] [facility] [place] [address] Arturo Gayle MD, PhD Nalini / schedule coord 10/31/2024 3:00 PM EDT Office Visit [facility] at [address] [address] Arturo Gayle MD, PhD Necrotizing pancreatitis (Primary [...] Info) Description 03/06/2025 10:20 AM EDT Telemedicine [facility] at [address] [address] Arturo Gayle MD, PhD [address] [place] [id number] [email or web address] Maintenance Due Date Last Done Comments [...] Devices Not on file Insurance C3 ACO [facility] C3 ACO [employer] [place] [address] [place] [address] [place] [address] [place] [address] [place] [address] C[employer] A[employer] Care Teams Vehicle Fuel Systems Converter Relationship Specialty Start Date End Date Ibeth Lassiter MD [address] [place] [phone] PCP - General Family Medicine 08/15/24 Additional Source Comments The information contained in this document represents components of the legal health record. It is not the complete legal health record.[facility]
--- OUTSIDE RECORDS SUMMARY | 2025-01-07 12:02 | XMS_ITS | Encounter Summary ---
Author Organization [employer] Address [address] [place] [address] [address] [place] [address] Care Team Providers Care Research Leader Name Role Phone Ibeth Lassiter MD Primary Care Provider [phone] Amber Marie Primary Care Provider [phone] Bailee Lewis MD Primary Care Provider [phone] Ibeth Lassiter MD Primary Care Provider [phone] Bailee Lewis MD Primary Care Provider [phone] Reason for Visit * Reason Onset Date Comments Results 03/27/2024 Care Coordination 03/27/2024 [facility] initial a ssessment/ enrollment Encounter Details Date Type Department Care Team ([facility] Contact Info) Description 03/27/2024 Telephone [facility] [address] [place], [place] [phone] Ibeth Lassiter MD [address] [place], [place] [phone] Results; Care Coordination ([facility] was hospitalized about 2 days ago at [facility] for epigastric pain. Pt states she triesto avoid spicy food which triggers the pain. t states she is supposed to wear eyeglasses due to difficulty with her vision but hasn't seen the clinical support specialist in a very long time. CM will mail a list of clinical support specialist to pt's address on file and [...] understanding, and able to repeat back to contract writer. A follow up call will be placed within 10 days, patient agrees with plan. * Telephone Encounter - Nancy Aguilar RN - 04/02/2024 3:[address] was ordered by outside provider. Upon pt chart review, pt is currently admitted at [facility] for Abd pain after biliary stent placement. Pt to f/u once discharged. * Telephone Encounter - Catie Moreau - 03/27/2024 2:17 PM EDT TC from pt requesting call back regarding Results. Type of results: Ultrasound Date when done: 2 weeks ago Facility: [facility] Contact pt at [phone] documented in this encounter Plan of Treatment Upcoming Encounters Date Type Department Care Team (Late st Contact Info) Description 01/14/2025 11:00 AM EDT Clinical Support [address] [address] Ena Grant, EL 01/21/2025 10:00 AM EDT Clinical Support [address] [address] Ena Grant, EL 01/28/2025 11:30 AM EDT Clinical Support [address] [address] Ena Grant, RN 02/04/2025 9:30 AM EDT Clinical Support [address] [address] Ena Grant, RN documented as of this encounter Visit Diagnoses Not on filedocumented in this encounter Additional Health Concerns Assessment Noted Time PHQ-9 Depression Total Score: 24 024 3:55 PM EDT documented as of this encounter Care Teams Research Leader Relationship Specialty Start Date End Date Ibeth Lassiter MD [address] [place] [phone] PCP - General Family Medicine 12/16/21 10/01/24 Amber Marie FNP [address] [place] [phone] PCP - General Family Medicine 10/02/24 10/08/24 Bailee Lewis MD [address] [place] [address] PCP - General Family Medicine 10/09/24 10/12/24 Ibeth Lassiter MD [address] [place] [phone] PCP - General Family Medicine 10/13/24 11/13/24 Bailee Lewis MD [address] [place] [address] PCP - General Family Medicine 11/14/24 documented as of this encounter
--- OUTSIDE RECORDS SUMMARY | 2025-01-07 12:02 | XMS_ITS | Encounter Summary ---
Author Organization [facility] Address [address] [place] [address] Care Team Providers Care Automotive Consultant Name Role Phone Valeria Tao MD Primary Care Provider + Encounter Details Date Type Department Care Team (Late st Contact Info) Description 01/11/2019 Lab Requisition [facility] [address] [place] [address] Cooper Cardenas Encounter for screening Social History [...] of this encounter Procedures * Due to [place] [employer] law, this organization might not be sharing negative HIV tests. Procedure Name Priority Date/Time Associated Diagnosis Comments KLEIHAUER-BETKE STAIN Routine 01/11/2019 6:40 AM EDT Encounter for screening documented in this encounter Results * Due to [place] [employer] law, this organization might not be sharing negative HIV tests. * Kleihauer-Betke Stain (01/11/2019 6:40 AM EDT) Number of Cells 3 cells/1000 RBCs [facility] 01/11/2019 2:28 PM EDT [facility] Estimated Bleed 15 mL [facility] 01/11/2019 2:28 PM EDT [facility] Comment:% of Cells X 5 0 (idealized [...] [facility] BLOOD ORDERABLES Final Resul t [facility] [address] [place] [address], documented in this encounter Visit Diagnoses Diagnosis Encounter for screening documented in this encounter Additional Health Concerns Infection Onset Date Last Indicated Resolved Time COVID-19 - Suspected infection 10/15/2019 10/15/2019 10/16/2019 7:05 AM EDT documented as of this encounter Care Teams Automotive Consultant Relationship Specialty Start Date End Date Valeria Tao MD [address] [place] [id number] PCP - General 12/01/24 documented as of this encounter
== END 2025-01-07 11:15 | disposition home or self-care (01) ==
LOC: HO.MRI 11:14
PROVIDERS: PCP General Practice; Visit Provider Internal Medicine
DX: K85.91 Acute pancreatitis with uninfected necrosis, unspecified (principal)
CPT/HCPCS: 74183; A9585

== ENCOUNTER 2025-01-11 01:45 | Emergency (ER) | payer MEDICAID, SELFPAY ==
[2025-01-11] VITALS (7 sets, daily range): BP systolic 101–122; BP diastolic 57–90; PULSE 67–97; RESP 14–20; TEMP -17.7–37.1; O2SAT 97–100; BMI 23.3
--- NOTE | ~2025-01-11 | CT_ITS ---
CLINICAL HISTORY: Epigastric Pain CT abdomen and pelvis with contrast Comparison: MR/SR - MR ABDOMEN WITHOUT THEN WITH IV CONTRAST - 01/07/25 11:[address]/SR - CT ABDOMEN PELVIS W IV CON - 08/13/24 01:32 EDT Findings: The lung bases are clear. There has been prior cholecystectomy. The pancreatic tail is absent. The liver, spleen, bilateral adrenal glands, and bilateral kidneys appear within normal limits. There is no evidence of bowel obstruction. The appendix appears within normal limits. There is no pneumoperitoneum or ascites. The urinary bladder is partially distended. There is no adenopathy. 1.3 cm and 1.2 cm right ovarian cysts are present. The bones are intact. IMPRESSION: No acute findings. This document has been electronically signed by: Gerry Lewis on 01/11/2025 07:18:05
--- NOTE | 2025-01-11 02:00 | ED_ITS ---
HPI - Abdominal Pain General Chief Complaint: Abdominal Pain Stated Complaint: ABD Pain HX Pancreatitis Time Seen by Provider: 01/11/25 01:57 Source: patient Mode of arrival: ambulatory Limitations: no limitations History of Present Illness ED Provider: Rodrigo WELLS HPI narrative: The patient is a 29-year-old female with a history of chronic pancreatitis presenting to the ED for evaluation of worsening epigastric abdominal pain which is not being controlled currently by her morphine or oxycodone. 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 The patient was discharged after 4 days in the hospital, patient reports she followed up with her PCP and painter and paperhanger apprentice, was sent for a abdomina MRI on 01/07, which was negative for acute changes of the pancreas. The patient reports pain tonight is not controlled by her p.o. morphine and oxycodone. Patient denies associated nausea or vomiting, denies associated fever/chills, chest pain, shortness of breath or recent trauma. The patient does advise that between her most recent admission at this facility and tonight's visit, she was inpatient at [facility] for chronic pancreatitis. The patient advises starting next week she is scheduled to see her PCP and painter and paperhanger apprentice on a weekly basis to develop and trial a new pain management care plan. Related Data Home Medications ?Medication ?Instructions ?Recorded ?Confirmed hydroxyzine pamoate 50 mg capsule 50 mg PO Q6H PRN anx iety 07/05/24 01/11/25 morphine 15 mg tablet,extended 15 mg PO BID 12/24/24 0 01/11/25 release oxycodone 10 mg tablet 10 mg PO Q8H 12/24/24 pregabalin 300 mg capsule 300 mg PO BID 12/24/2401/11 sertraline 100 mg tablet 100 mg PO DAILY 12/24/2403/28 Previous Rx's ?Medication ?Instructions ?Recorded [id number] 1 cap PO TIDWM #270 caps 24,000-76,000-120,000 unit capsule,delayed rel (Creon) Allergies Allergy/AdvReac Type Severity Reaction Status Date / Time No Known Allergies Allergy Verified 01/11/25 01:57 Review of Systems Review of Systems Yes all other systems are reviewed and are negative [facility] Past Medical History Medical History Alcohol abuse Necrotizing pancreatitis Benign tumor of breast Alcohol abuse Asthma Anxiety Surgical History No history of previous surgery Social History Social History Household Members: Family Housing: House Do you presently have visiting nurse or other home services: No Alcohol intake: former Patient Tobacco Use Status: Never used Tobacco Substance Use Type: Prescription Drugs Advance Directives: No Advance Directives Information Provided: Yes Patient : No service: No Physical Exam ED Vital Signs: Vital Signs - 24 hr 01/11/25 01:53 01/11/25 04:23 01/11/25 07:58 Temperature 98.7 F 97.6 F Pulse Rate 93 97 79 Respiratory Rate 17 14 Blood Pressure 107/75 110/71 107/67 Pulse Oximetry 98 99 100 Oxygen Delivery Method Room Air Room Air Room Air BMI result Body Mass Index 23.3 CONSTITUTIONAL: The patient appears non-toxic, well nourished and in no acute distress. Vital signs as documented. HEAD: Atraumatic, normocephalic. EYES: EOMs grossly intact, pupils equal, conjunctiva clear, no exudate. ENT: Nares patent, no discharge. Airway patent, no audible stridor, visible mucosa is pink and moist without noted lesions. NECK: Trachea is midline, no obvious masses or gross abnormalities. CHEST: Symmetric movement, normal appearance. LUNGS: LS present and CTAB, no w/r/r. Non-labored work of breathing. CARDIAC: Regular Rhythm, S1/S2 appreciated, no murmurs, rubs or gallops. ABDOMEN: Abdomen soft x4 quadrants, positive tenderness to palpation of the epigastrium and right upper quadrant, no palpable masses or organomegaly. : Deferred. EXTREMITIES: Normal tone, moves all extremities spontaneously without reported pain. No obvious acute injury or deformity noted. NEURO: Alert and oriented x3, CN II-XII appear grossly intact. Cerebellar Functioning grossly intact. No obvious sensory or motor deficits. Speech clear and appropriate. PSYCH: normal affect, appropriate eye contact, fluid speech, with appropriate response to questioning. No reported suicidality or homicidality. SKIN: Warm, dry, color appropriate, normal turgor. No rashes noted. Course Reevaluation(s) Reevaluation #1: Patient was signed out to me at 07:[address] Noriegas, patient is pending CT result of the CT is negative at this time. Labs are normal I think she can be discharged home she will follow-up with the primary care physician Time: 08:26 Medical Decision Making Medical Decision Making MDM Narrative: 3:00 AM 01/11/2025 (Jonathan WELLS): Patient is a 29-year-old female presenting to the ED for evaluation of worsening epigastric abdominal pain consistent with her chronic pancreatitis which is not currently controlled by her morphine or oxycodone. The patient is scheduled to follow up with her painter and paperhanger apprentice next week for a new pain management regimen, however presents to the ED reporting increased severity but unchanged character of her pain. The patient denies associated fever/chills, nausea, vomiting or other systemic complaint. The patient appears in no acute distress but abdominal exam is exquisitely tender in the epigastrium. Patient will be treated with Toradol, Dilaudid, and IV fluid hydration. We will reassess laboratory evaluation and consider need for admission versus discharge. Patient had abdominal MRI on 01/07 which is in our records and shows no acute abnormalities or changes. No indication for repeat imaging at this time. 3:59 AM 01/11/2025 (Jonathan WELLS): Patient reports persistent pain despite interventions, we will treat with an additional 1.5 mg of Dilaudid. The patient's laboratory evaluation has resulted and shows no leukocytosis, significant anemia, electrolyte abnormality, or KIAN. The patient's LFTs are similar to previous, AST 34, ALT 41, alkaline phosphatase 176. The patient's lipase is normal at 6. Patient's vital signs remained stable, no tachycardia or hypertension. The patient's case will be signed out to Dr. Abad for re- evaluation of pain after additional dose of Dilaudid, if pain is intractable patient will be admitted for recurrent chronic pancreatitis. 4:29 AM 01/11/2025 (Jonathan WELLS): The patient's case was discussed with Dr. Glover from the hospitalist service, at this time we will obtain CT imaging prior to admitting the patient. Patient's case signed out to Dr. Abad with Dr. Glover following. 06:57 (Holli Abad MD): I received sign-out from my colleague PRISCILLA Triana, we are waiting for the CT scan of the abdomen to rule out any new pancreatic abnormality. At this time, the CT scan has not been read yet. I spoke with our radiology techs, seems that the radiology department is having a large volume of CT scans that still need to be read. -report from our hospitalist team, seems that patient tends to seek narcotics, specifically Dilaudid -sign-out was given to my colleague Dr. Dr. Jacome Admission/Observation Consideration of admission/observation: Escalation of care including admission/observation considered Lab Data MDM Lab Attestation statement: I reviewed the patient's lab results. 01/11/25 02:44 01/11/25 02:44 Labs: Lab Results 01/11/25 Range/Units 02:44 WBC 5.6 (4.8-10.8) X10*3/uL RBC 4.28 (4.20-5.50) X10*6/uL Hgb 10.3 L (12.0-16.0) g/dl Hct 32.7 L (37.0-47.0) % MCV 76.4 L (80.0-98.0) fL MCH 24.1 L (27.0-33.0) pg MCHC 31.5 (31.0-35.0) g/dl RDW 16.2 H (11.0-16.0) % Plt Count 214 (160-400) X10*3/uL MPV 11.0 (9.4-12.3) fL Immature Gran % (Auto) 0.2 (0.0-0.4) % Neut % (Auto) 63.1 (45-73) % Lymph % (Auto) 29.1 (20-40) % [place] % (Auto) 6.7 (2-11) % Eos % (Auto) 0.4 (0-4) % Baso % (Auto) 0.5 (0-2) % Lymph # (Auto) 1.6 (1.2-4.9) X10*3/uL [place] # (Auto) 0.4 (0.1-1.2) X10*3/uL Eos # (Auto) 0.0 (0.0-0.4) X10*3/uL Baso # (Auto) 0.0 (0.0-0.2) X10*3/uL Abs Immat Gran (auto) 0.01 (0.00-0.03) X10*3/uL Absolute Neuts (auto) 3.6 (2.0-8.3) x10*3/uL Absolute Nucleated RBC 0.000 (0.0-0.012) X10*3/uL Nucleated RBC % (auto) 0.0 (0.0-0.2) /100WBC ESR 2 (0-20) MM/HR Sodium 143 (135-145) mmol/L Potassium 3.6 (3.3-5.1) mmol/L Chloride 111 H (96-108) mmol/L Carbon Dioxide 22 (22-29) mmol/L Anion Gap 14 (12-20) BUN 8 L (9-16) mg/dL Creatinine 0.75 (0.5-1.4) mg/dL Estim Creat Clear Calc 99.5 Estimated GFR > 60 Random Glucose 90 (60-115) mg/dL Calcium 9.0 (8.4-10.2) mg/dL Total Bilirubin 0.1 (0.0-1.0) mg/dL AST 34 H (5-31) U/L ALT 41 H (0-31) U/L Alkaline Phosphatase 176 H (39-117) U/L C-Reactive Protein < 0.10 (< or = 0.50) mg/dL Total Protein 7.8 (6.5-8.0) g/dL Albumin 5.0 (3.5-5.0) g/dL Lipase 6 L (8-78) U/L Beta HCG, Quant < 2 mIU/mL External Record Review External record reviewed: Outpatient record Medications Administered Discontinued Medications Generic Name Dose Route Start Last Admin Trade Name Freq PRN Reason Stop Dose Admin Hydromorphone HCl 1 mg 01/11/25 02:28 01/11/25 02:40 Hydromorphone Hcl 1 Mg/Ml Syringe IVPUSH 01/11/25 02:29 1 mg ONCE ONE Administration Protocol Hydromorphone HCl 1.5 mg 01/11/25 03:55 01/11/25 04:05 Hydromorphone Hcl 2 Mg/Ml Vial IVPUSH 01/11/25 03:56 1.5 mg ONCE ONE Administration Protocol Sodium Chloride 1,000 mls @ 999 mls/hr 01/11/25 02:30 01/11/25 04:02 Ns IV 01/11/25 03:30 Infused .Q1H1M TRUONG Infusion Iohexol 85 ml 01/11/25 05:27 01/11/25 05:27 Iohexol 350 Mg/Ml 100 Ml Infus..Btl IV 01/11/25 05:28 85 ml ONCE ONE Administration Ketorolac Tromethamine 15 mg 01/11/25 02:28 01/11/25 02:40 Ketorolac Tromethamine 15 Mg/Ml Vial IVPUSH 01/11/25 02:29 15 mg ONCE ONE Administration Discharge Plan Discharge Clinical Impression: Pancreatitis Patient Disposition: Admitted As Inpatient Print Language: Romanian
[2025-01-11 02:48] LABS: MANUAL DIFF FLAG NO
[2025-01-11 02:51] LABS: Hematocrit 32.7 % (37.0-47.0); Hemoglobin 10.3 g/dl (12.0-16.0); Imm Gran Abs Auto 0.01 X10*3/uL (0.00-0.03); Imm Gran Pct Auto 0.2 % (0.0-0.4); Lymphocytes Absolute Auto 1.6 X10*3/uL (1.2-4.9); Mean Corpuscular HGB Conc 31.5 g/dl (31.0-35.0); Mean Corpuscular Hemoglobin 24.1 pg (27.0-33.0); Mean Corpuscular Volume 76.4 fL (80.0-98.0); NRBC Abs Auto 0.000 X10*3/uL (0.0-0.012); NRBC Pct Auto 0.0 /100WBC (0.0-0.2); Platelet Count 214 X10*3/uL (160-400); Red Blood Count 4.28 X10*6/uL (4.20-5.50); White Blood Count 5.6 X10*3/uL (4.8-10.8)
[2025-01-11 03:19] LABS: Alanine Aminotransferase 41 U/L (0-31); Albumin Level 5.0 g/dL (3.5-5.0); Alkaline Phosphatase 176 U/L (39-117); Anion Gap 14 (12-20); Aspartate Amino Transferase 34 U/L (5-31); Blood Urea Nitrogen 8 mg/dL (9-16); Calcium 9.0 mg/dL (8.4-10.2); Carbon Dioxide 22 mmol/L (22-29); Chloride 111 mmol/L (96-108); Creatinine Clr Calc Pharmacy 99.5; Estimated Glomerular Filt Rate > 60; Lipase 6 U/L (8-78); Potassium 3.6 mmol/L (3.3-5.1); Sodium 143 mmol/L (135-145); Total Protein 7.8 g/dL (6.5-8.0)
[2025-01-11] MEDS: iohexoL 350 MG/ML 100 ML INFUS..BTL 85 ML IV (05:27)
--- NOTE | 2025-01-11 07:23 | PHA.MEDREC ---
Pharmacy Consult ? Medication Reconciliation Pharmacy has completed the medication reconciliation. Patient was discharged on 12/28/24, used pharmacy claims and med record to verify. Discharge prescriptions match fill history.
== END 2025-01-11 10:00 | disposition home or self-care (01) ==
PROVIDERS: Emergency Medicine; Physician Assistant; Emergency Provider Emergency Medicine
DX: K85.90 Acute pancreatitis without necrosis or infection, unspecified (principal); R10.2 Pelvic and perineal pain; R10.13 Epigastric pain; R11.0 Nausea; Z79.899 Other long term (current) drug therapy
CPT/HCPCS: 36415; 74177; 80053; 83690; 84702; 85025; 85652; 86140; 96361; 96374; 96375; 96376; 99284; 99285; J1171; J1885; Q9967

== ENCOUNTER → 2025-01-11 04:29 | Outpatient (BNV) | payer MEDICAID, SELFPAY | PROVIDERS: Emergency Provider Emergency Medicine; Visit Provider Radiology Vascular & Interventional Radiology | DX: N83.201 Unspecified ovarian cyst, right side (principal) | CPT/HCPCS: 74177 ==

== ENCOUNTER 2025-01-13 21:16 | Emergency (ER) | payer MEDICAID, SELFPAY ==
[2025-01-13 21:30] VITALS: BP 104/68; PULSE 81; RESP 16; TEMP 36.7; O2SAT 98; BMI 23.3
[2025-01-13 21:43] LABS: MANUAL DIFF FLAG NO
[2025-01-13 21:44] LABS: Hematocrit 34.9 % (37.0-47.0); Hemoglobin 11.3 g/dl (12.0-16.0); Imm Gran Abs Auto 0.02 X10*3/uL (0.00-0.03); Imm Gran Pct Auto 0.3 % (0.0-0.4); Lymphocytes Absolute Auto 1.8 X10*3/uL (1.2-4.9); Mean Corpuscular HGB Conc 32.4 g/dl (31.0-35.0); Mean Corpuscular Hemoglobin 24.5 pg (27.0-33.0); Mean Corpuscular Volume 75.7 fL (80.0-98.0); NRBC Abs Auto 0.000 X10*3/uL (0.0-0.012); NRBC Pct Auto 0.0 /100WBC (0.0-0.2); Platelet Count 228 X10*3/uL (160-400); Red Blood Count 4.61 X10*6/uL (4.20-5.50); White Blood Count 6.8 X10*3/uL (4.8-10.8)
[2025-01-13 22:12] LABS: Alanine Aminotransferase 32 U/L (0-31); Albumin Level 4.5 g/dL (3.5-5.0); Alkaline Phosphatase 162 U/L (39-117); Anion Gap 12 (12-20); Aspartate Amino Transferase 30 U/L (5-31); Blood Urea Nitrogen 6 mg/dL (9-16); Calcium 8.8 mg/dL (8.4-10.2); Carbon Dioxide 22 mmol/L (22-29); Chloride 109 mmol/L (96-108); Creatinine Clr Calc Pharmacy 131.0; Estimated Glomerular Filt Rate > 60; Lipase 4 U/L (8-78); Potassium 3.6 mmol/L (3.3-5.1); Sodium 139 mmol/L (135-145); Total Protein 7.1 g/dL (6.5-8.0)
--- NOTE | 2025-01-13 22:56 | ED.GENADULT ---
HPI - General Adult General Chief complaint: General Medical Stated complaint: pancreatitis/meds changed but not helping Time Seen by Provider: 01/13/25 22:49 Source: patient Mode of arrival: ambulatory Limitations: no limitations History of Present Illness ED Provider: HPI narrative: Patient's history of necrotizing pancreatitis diagnose 05/27 been having chronic abdominal pain been here multiple times was seen here on 01/11 CT scan showed no acute findings was at [facility] yesterday for the pain seen her pain specialist who prescribed her Duragesic patch starting tomorrow patient is taking hydrocodone at home without much relief no nausea no vomiting Related Data Home Medications ?Medication ?Instructions ?Recorded ?Confirmed hydroxyzine pamoate 50 mg capsule 50 mg PO Q6H PRN anxiety 07/05/24 01/11/25 morphine 15 mg tablet,extended 15 mg PO BID 12/24/24 01/11/25 release oxycodone 10 mg tablet 10 mg PO Q8H 12/24/24 01/11/25 pregabalin 300 mg capsule 300 mg PO BID 12/24/24 01/11/25 sertraline 100 mg tablet 100 mg PO DAILY 12/24/24 01/11/25 Previous Rx's ?Medication ?Instructions ?Recorded [id number] 1 cap PO TIDWM #270 caps 07/18/24 24,000-76,000-120,000 unit capsule,delayed rel (Creon) Allergies Allergy/AdvReac Type Severity Reaction Status Date / Time No Known Allergies Allergy Verified 01/13/25 21:32 Review of Systems Review of Systems: Yes all other systems are reviewed and are negative PMFSH Past Medical History Medical History Chronic pancreatitis Alcohol abuse Necrotizing pancreatitis Benign tumor of breast Alcohol abuse Asthma Anxiety Surgical History No history of previous surgery Social History Social History Household Members: Family Housing: House Do you presently have visiting nurse or other home services: No Alcohol intake: former Patient Tobacco Use Status: Never used Tobacco Substance Use Type: Prescription Drugs Advance Directives: No Advance Directives Information Provided: No Do you have a plan to hurt others: No Plan service: No Physical Exam ED Vital Signs: Vital Signs - 24 hr 01/13/25 21:30 Temperature 98.0 F Pulse Rate 81 Respiratory Rate 16 Blood Pressure 104/68 Pulse Oximetry 98 Oxygen Delivery Method Room Air BMI result Body Mass Index 23.3 Appearance: Alert. Oriented X3. No acute distress. Eyes: PERRLA, No Nystagmus ENT: Pharynx normal. Oral Mucosa moist Neck: Normal inspection. Neck supple. CVS: Normal heart rate and rhythm. Pulses normal. Respiratory: No respiratory distress. Equal air entry bilateral, no wheezing/rales/rhonchi Abdomen: Soft and deep tenderness mid abdomen no rebound tenderness or guarding. Bowel sounds are present, no mass palpable, no CVA tenderness Skin: Skin warm and dry. Normal skin color. Normal skin turgor. Extremities: No lower extremity edema. No calf tenderness Neuro: Oriented X 3. No motor deficit. No sensory deficit.No cerebellar signs , cranial nerves II-XII intact Medical Decision Making Medical Decision Making [facility] Narrative: Patient has chronic abdominal pain from necrotizing pancreatitis followed by pain clinic comes here for similar pain was just recently seen 2 days ago for same CT scan was negative for acute findings labs were stable will discharge patient home advised to follow up with pain clinic Lab Data [facility] Lab Attestation statement: I reviewed the patient's lab results. 01/13/25 21:37 01/13/25 21:37 Labs: Lab Results 01/13/25 Range/Units 21:37 WBC 6.8 (4.8-10.8) X10*3/uL RBC 4.61 (4.20-5.50) X10*6/uL Hgb 11.3 L (12.0-16.0) g/dl Hct 34.9 L (37.0-47.0) % MCV 75.7 L (80.0-98.0) fL MCH 24.5 L (27.0-33.0) pg MCHC 32.4 (31.0-35.0) g/dl RDW 15.9 (11.0-16.0) % Plt Count 228 (160-400) X10*3/uL MPV 11.3 (9.4-12.3) fL Immature Gran % (Auto) 0.3 (0.0-0.4) % Neut % (Auto) 67.9 (45-73) % Lymph % (Auto) 25.6 (20-40) % [place] % (Auto) 5.0 (2-11) % Eos % (Auto) 0.6 (0-4) % Baso % (Auto) 0.6 (0-2) % Lymph # (Auto) 1.8 (1.2-4.9) X10*3/uL [place] # (Auto) 0.3 (0.1-1.2) X10*3/uL Eos # (Auto) 0.0 (0.0-0.4) X10*3/uL Baso # (Auto) 0.0 (0.0-0.2) X10*3/uL Abs Immat Gran (auto) 0.02 (0.00-0.03) X10*3/uL Absolute Neuts (auto) 4.7 (2.0-8.3) x10*3/uL Absolute Nucleated RBC 0.000 (0.0-0.012) X10*3/uL Nucleated RBC % (auto) 0.0 (0.0-0.2) /100WBC Sodium 139 (135-145) mmol/L Potassium 3.6 (3.3-5.1) mmol/L Chloride 109 H (96-108) mmol/L Carbon Dioxide 22 (22-29) mmol/L Anion Gap 12 (12-20) BUN 6 L (9-16) mg/dL Creatinine 0.57 (0.5-1.4) mg/dL Estim Creat Clear Calc 131.0 Estimated GFR > 60 Random Glucose 117 H (60-115) mg/dL Calcium 8.8 (8.4-10.2) mg/dL Total Bilirubin 0.5 (0.0-1.0) mg/dL AST 30 (5-31) U/L ALT 32 H (0-31) U/L Alkaline Phosphatase 162 H (39-117) U/L Total Protein 7.1 (6.5-8.0) g/dL Albumin 4.5 (3.5-5.0) g/dL Lipase 4 L (8-78) U/L Discharge Plan Discharge Clinical Impression: Chronic pain Patient Disposition: Home, Self-Care Instructions: Chronic Pain (ED) Additional Instructions: Take your pain medication as prescribed by your pain clinic Follow up with your PCP Prescriptions: No Action hydroxyzine pamoate 50 mg capsule 50 mg PO Q6H PRN (Reason: anxiety) Creon 24,000-76,000 -120,000 unit Capsule,Delayed Release(Dr/Ec) 1 cap PO TIDWM Qty: 270 0RF sertraline 100 mg tablet 100 mg PO DAILY pregabalin 300 mg capsule 300 mg PO BID oxycodone 10 mg tablet 10 mg PO Q8H morphine 15 mg tablet extended release 15 mg PO BID Print Language: Macedonian
--- NOTE | 2025-01-13 23:23 | PC.NURSE ---
medicated per mar, reviewed discharge instructions, pt verbalized understanding, no sign of distress. pt had a steady gait upon discharge.
[2025-01-13 23:24] VITALS: BP 104/68; PULSE 81; RESP 16; TEMP 36.7; O2SAT 98
== END 2025-01-13 23:35 | disposition home or self-care (01) ==
PROVIDERS: Emergency Provider Internal Medicine; PCP General Practice
DX: G89.29 Other chronic pain (principal); R10.9 Unspecified abdominal pain; K90.3 Pancreatic steatorrhea; Z79.899 Other long term (current) drug therapy
CPT/HCPCS: 36415; 80053; 83690; 85025; 99283; 99284

== ENCOUNTER 2025-01-24 20:24 | Emergency (ER) | payer MEDICAID, SELFPAY ==
--- NOTE | ~2025-01-24 | CT_ITS ---
CLINICAL HISTORY: pancreatitis? CT abdomen and pelvis with contrast Comparison: CT/REG/SR - CT ABDOMEN PELVIS W IV CON - 01/11/25 05:09 EDT Findings: The lung bases are clear. Pancreatic tail is absent. Pancreatic head and body are unremarkable. No peripancreatic fluid. Diffuse fatty infiltration of the liver. Spleen, adrenal glands, kidneys are unremarkable. Appendix not visualized. No inflammatory change in the region of the cecum. Small bowel loops are normal caliber. Large amount of fecal loading within the colon. No bowel wall thickening. No evidence of bowel obstruction. No free air. No ascites. There is a cystic lesion within the right adnexa measuring 2.0 cm. Left adnexa and uterus are unremarkable. No acute fracture. IMPRESSION: No acute findings. No abnormalities of the pancreas seen. Diffuse fatty infiltration of the liver. This document has been electronically signed by: Niles Henderson MD on 01/24/2025 23:21:45
[2025-01-24 20:28] VITALS: BP 120/60; PULSE 106; RESP 20; TEMP 36.3; O2SAT 96; BMI 25.8
--- NOTE | 2025-01-24 20:28 | ED.GENADULT ---
HPI - General Adult General Chief complaint: Abdominal Pain Stated complaint: pancreatitis? Time Seen by Provider: 01/24/25 20:33 Source: patient Limitations: no limitations History of Present Illness ED Provider: Katarzyna Hui PA-C HPI narrative: 29-year-old female with a history of alcohol use disorder, chronic alcoholic pancreatitis, splenic/portal vein thrombosis, history of necrotizing pancreatitis status post percutaneous drainage, complicated by disconnected pancreatic duct syndrome, mood disorder presents with the abdominal pain x2 days. Associated generalized abdominal pain with the abdominal distention, patient states that her home medications have not offer relief from her symptoms. Associated nausea vomiting at times. Denies inability to pass flatus or constipation. Related Data Home Medications ?Medication ?Instructions ?Recorded ?Confirmed hydroxyzine pamoate 50 mg capsule 50 mg PO Q6H PRN anxiety 07/05/24 01/11/25 morphine 15 mg tablet,extended 15 mg PO BID 12/24/24 01/11/25 release oxycodone 10 mg tablet 10 mg PO Q8H 12/24/24 01/11/25 pregabalin 300 mg capsule 300 mg PO BID 12/24/24 01/11/25 sertraline 100 mg tablet 100 mg PO DAILY 12/24/24 01/11/25 Previous Rx's ?Medication ?Instructions ?Recorded [id number] 1 cap PO TIDWM #270 caps 07/18/24 24,000-76,000-120,000 unit capsule,delayed rel (Creon) Allergies Allergy/AdvReac Type Severity Reaction Status Date / Time No Known Allergies Allergy Verified 01/24/25 20:30 [facility] Past Medical History Medical History Chronic pancreatitis Alcohol abuse Necrotizing pancreatitis Benign tumor of breast Alcohol abuse Asthma Anxiety Surgical History No history of previous surgery Social History Social History Household Members: Family Housing: House Do you presently have visiting nurse or other home services: No Alcohol intake: former Patient Tobacco Use Status: Never used Tobacco Smoked in Last 30 Days: No Use of substances other than those prescribed or required for medical reasons: No Substance Use Type: Prescription Drugs Advance Directives: No Advance Directives Information Provided: No Patient : No service: No Physical Exam ED Vital Signs: Vital Signs - 24 hr 01/24/25 20:28 01/24/25 20:47 01/24/25 22:16 Temperature 97.3 F 97.3 F 98.6 F Pulse Rate 106 H 106 H 109 H Respiratory Rate 20 20 18 Blood Pressure 120/60 120/60 120/73 Pulse Oximetry 96 96 97 Oxygen Delivery Method Room Air Room Air Room Air 01/24/25 23:04 Temperature Pulse Rate 101 H Respiratory Rate 18 Blood Pressure 115/57 L Pulse Oximetry 98 Oxygen Delivery Method Room Air BMI result Body Mass Index 25.8 Course Course Course Narrative: This is a Rapid Medical Examination (RME) performed by Jonathan Gallegos PA-C in triage. Full HPI, ROS, assessment and treatment plan per primary provider in the Main ED. Hx: 29 yo F here for eval epigastric abd pain/swelling. currently taking vicodin and butrans patch - no relief. no N/V/D. PE/vitals: well appearing. Plan: labs Medications Administered Discontinued Medications Generic Name Dose Route Start Last Admin Trade Name Freq PRN Reason Stop Dose Admin Hydromorphone HCl 1 mg 01/24/25 21:01 01/24/25 22:07 Hydromorphone Hcl 1 Mg/Ml Syringe IVPUSH 01/24/25 21:02 1 mg ONCE ONE Administration Protocol Hydromorphone HCl 1.5 mg 01/24/25 22:26 01/24/25 23:06 Hydromorphone Hcl 2 Mg/Ml Vial IVPUSH 01/24/25 22:27 1.5 mg ONCE ONE Administration Protocol Sodium Chloride 1,000 mls @ 999 mls/hr 01/24/25 21:15 01/24/25 23:24 Ns IV 01/24/25 22:15 Infused .Q1H1M TRUONG Infusion Iohexol 85 ml 01/24/25 21:59 01/24/25 22:01 Iohexol 350 Mg/Ml 100 Ml Infus..Btl IV 01/24/25 22:00 85 ml ONCE ONE Administration Ondansetron HCl 4 mg 01/24/25 21:01 01/24/25 22:07 Ondansetron Hcl 4 Mg/2 Ml Vial IVPUSH 01/24/25 21:02 4 mg ONCE ONE Administration Medical Decision Making Medical Decision Making [facility] Narrative: 29-year-old female with a history of alcohol use disorder, chronic alcoholic pancreatitis, splenic/portal vein thrombosis, history of necrotizing pancreatitis status post percutaneous drainage, complicated by disconnected pancreatic duct syndrome, mood disorder presents with the abdominal pain x2 days. Associated generalized abdominal pain with the abdominal distention, patient states that her home medications have not offer relief from her symptoms. Associated nausea vomiting at times. Denies inability to pass flatus or constipation. Problem: Alcohol use disorder, pancreatitis, splenic portal vein thrombosis, mood disorder History: Per patient I have considered the following differential diagnoses: Recurrent pancreatitis, liver failure/ascites, bowel obstruction, constipation, narcotic bowel syndrome Plan: We will be obtaining a CT scan of the abdomen, the patient frequently has pancreatitis in the absence of an elevated lipase. Given distention, perhaps she has developed new onset liver failure with the ascites. Thought about bowel obstruction, however she does not have complete obstructive symptoms at this time. The patient could also be developing narcotic bowel syndrome, she is on chronic opiates, although this would not explain the distention. We will objectively treat her pain, she has received Dilaudid in the past, giving Zofran and fluid. I have independently reviewed the following tests: Labs: No leukocytosis, stable anemia, no electrolyte abnormality, LFTs are at baseline, lipase not elevated, blood sugar 194, not In regard to the anemia, the patient states she has had anemia in the past, she denies having her period right, having heavy periods, no bright red blood per rectum, no melena. CT abd: Findings: The lung bases are clear. Pancreatic tail is absent. Pancreatic head and body are unremarkable. No peripancreatic fluid. Diffuse fatty infiltration of the liver. Spleen, adrenal glands, kidneys are unremarkable. Appendix not visualized. No inflammatory change in the region of the cecum. Small bowel loops are normal caliber. Large amount of fecal loading within the colon. No bowel wall thickening. No evidence of bowel obstruction. No free air. No ascites. There is a cystic lesion within the right adnexa measuring 2.0 cm. Left adnexa and uterus are unremarkable. No acute fracture. IMPRESSION: No acute findings. No abnormalities of the pancreas seen. Diffuse fatty infiltration of the liver. Differential Diagnosis Differential Diagnoses: The differential diagnosis associated with the presentation includes See [facility] Admission/Observation Consideration of admission/observation: Escalation of care including admission/observation considered Not applicable today Lab Data MDM Lab Attestation statement: I reviewed the patient's lab results. 01/24/25 20:35 01/24/25 20:35 Labs: Lab Results 01/24/25 Range/Units 20:35 WBC 6.5 (4.8-10.8) X10*3/uL RBC 3.75 L (4.20-5.50) X10*6/uL Hgb 9.0 L D (12.0-16.0) g/dl Hct 28.6 L (37.0-47.0) % MCV 76.3 L (80.0-98.0) fL MCH 24.0 L (27.0-33.0) pg MCHC 31.5 (31.0-35.0) g/dl RDW 16.3 H (11.0-16.0) % Plt Count 216 (160-400) X10*3/uL MPV 11.0 (9.4-12.3) fL Immature Gran % (Auto) 0.3 (0.0-0.4) % Neut % (Auto) 67.7 (45-73) % Lymph % (Auto) 21.4 (20-40) % Montgomery % (Auto) 8.7 (2-11) % Eos % (Auto) 1.4 (0-4) % Baso % (Auto) 0.5 (0-2) % Lymph # (Auto) 1.4 (1.2-4.9) X10*3/uL Montgomery # (Auto) 0.6 (0.1-1.2) X10*3/uL Eos # (Auto) 0.1 (0.0-0.4) X10*3/uL Baso # (Auto) 0.0 (0.0-0.2) X10*3/uL Abs Immat Gran (auto) 0.02 (0.00-0.03) X10*3/uL Absolute Neuts (auto) 4.4 (2.0-8.3) x10*3/uL Absolute Nucleated RBC 0.000 (0.0-0.012) X10*3/uL Nucleated RBC % (auto) 0.0 (0.0-0.2) /100WBC Sodium 139 (135-145) mmol/L Potassium 3.6 (3.3-5.1) mmol/L Chloride 112 H (96-108) mmol/L Carbon Dioxide 19 L (22-29) mmol/L Anion Gap 12 (12-20) BUN 9 (9-16) mg/dL Creatinine 0.76 (0.5-1.4) mg/dL Estim Creat Clear Calc 107.4 Estimated GFR > 60 Random Glucose 194 H (60-115) mg/dL Calcium 8.4 (8.4-10.2) mg/dL Magnesium 1.9 (1.6-2.6) mg/dL Total Bilirubin 0.4 (0.0-1.0) mg/dL AST 82 H (5-31) U/L ALT 74 H (0-31) U/L Alkaline Phosphatase 146 H (39-117) U/L Total Protein 6.7 (6.5-8.0) g/dL Albumin 4.0 (3.5-5.0) g/dL Lipase 5 L (8-78) U/L Beta HCG, Quant < 2 mIU/mL Ethyl Alcohol < 10 mg/dL Radiology Impression Discussion of test interpretation with radiology: I have reviewed the radiologist's reading. Discharge Plan Discharge Clinical Impression: Abdominal pain, Constipation, Anemia Patient Disposition: Home, Self-Care Instructions: Constipation (ED), Abdominal Pain (ED), Anemia (ED) Additional Instructions: The CT scan of the abdomen and pelvis was negative for acute process. However you are constipated. Given your chronic opiate therapy for your pain, constipation is an unfortunate consequence. You need to stay on a bowel regimen to help prevent further constipation. This could also be the reasoning for your pain. Use [id number]-[id number] Colace, twice a day. Use jloi-ttf-nigphre MiraLax, 4 to 5 times a day until you begin having multiple large volume bowel movements. Once you clear your current stool burden, stay on the Colace daily in the MiraLax daily, again, to help prevent symptoms. People can also develop chronic abdominal pain from being on chronic opiate therapy. You should really speak with the person who prescribes these pain medications to you to seek an alternative regimen to manage your discomfort. You were also found to be anemic, it appears you likely have iron deficiency anemia, you should speak with your doctor about reinitiating iron supplementation. Prescriptions: No Action hydroxyzine pamoate 50 mg capsule 50 mg PO Q6H PRN (Reason: anxiety) Creon 24,000-76,000 -120,000 unit Capsule,Delayed Release(Dr/Ec) 1 cap PO TIDWM Qty: 270 0RF sertraline 100 mg tablet 100 mg PO DAILY pregabalin 300 mg capsule 300 mg PO BID oxycodone 10 mg tablet 10 mg PO Q8H morphine 15 mg tablet extended release 15 mg PO BID Print Language: Ugandan
--- OUTSIDE RECORDS SUMMARY | 2025-01-24 20:35 | XMS_ITS | Clinical Summary ---
Author Organization [facility] Address [address] [address] Phone Care Team Providers Care Vehicle Maintenance Technician Name Role Phone Ibeth Lassiter MD Primary Care Provider [phone] Medications acetaminophen (TYLENOL) 325 mg tablet Take [...] Type Department Care Team Description 11/26/2024 Telephone [facility] [address] [facility] [place] [address] Arturo Gayle MD, PhD Nalini / schedule coord 10/31/2024 3:00 PM EDT Office Visit [facility] at [address] [address] Arturo Gayle MD, PhD Necrotizing pancreatitis (Primary [...] Info) Description 03/06/2025 10:20 AM EDT Telemedicine [facility] at [address] [address] Arturo Gayle MD, PhD [address] [place] [phone] [email or web address] Maintenance Due Date Last Done [...] this topic Medical Devices Not on file Procedures Procedure Name Priority Date/Time Associated Diagnosis Comments OUTSIDE LAB 01/23/2025 OUTSIDE PROCEDURE 01/23/2025 OUTSIDE PROCEDURE 01/23/2025 OUTSIDE IMAGING 01/08/2025 from Last 3 Months Results * Outside Procedure (01/23/2025) us Scanning Interface Provider PROCEDURE/MINOR SURG ICAL PERFORMABLES Final Result * Outside Procedure (01/23/2025) us Scanning Interface Provider PROCEDURE/MINOR SURG ICAL PERFORMABLES Final Result * Outside Lab (01/23/2025) us Scanning Interface Provider LAB BLOOD ORDERABLES Final Result * Outside Imaging Report Only (01/08/2025) us Scanning Interface Provider IMG XR CHEST Claire l Result from Last 3 Months Insurance [facility] C[employer] [place] [id number] C3 ACO [facility] C3 ACO [facility] C3 ACO Care Teams Vehicle Maintenance Technician Relationship Specialty Start Date End Date Ibeth Lassiter MD [address] [place], [place] [address] [address] PCP - General Family Medicine 08/15/24 Additional Source Comments The information contained in this document represents components of the legal health record. It is not the complete legal health record.[facility]
--- OUTSIDE RECORDS SUMMARY | 2025-01-24 20:35 | XMS_ITS | Clinical Summary ---
Author Organization [facility] Address [address] [place] [address] Care Team Providers Care Recovery Coordinator Name Role Phone Ibeth Lassiter MD Primary Care Provider [phone] Allergies Active Allergy Reactions Criticality Noted Date [...] e alcohol) 10-12 nips per day [facility] Utilities Answer Date Recorded In the past 12 months has [employer] gas, oil, or water [employer] threatened to shut off services in your [...] a nursing home (including now)? No 09/08/2023 Comments Unknown Sex [...] patient's age to complete this topic Insurance [employer] Advance Directives * Full Code (Latest Code Status on File) Date Activated Date Inactivated Comments 09/08/2023 12:13 AM Care Teams Recovery Coordinator Relationship Specialty Start Date End Date Ibeth Lassiter MD [address] [place] [id number] PCP - General Family Medicine 09/07/23
--- OUTSIDE RECORDS SUMMARY | 2025-01-24 20:35 | XMS_ITS | Clinical Summary ---
Author Organization [facility] Address [address] [place] [address] Care Team Providers Care Partition Assembly Machine Operator Name Role Phone Unavailable Primary Care Provider Unavailabl e Source Comments PLEASE NOTE, if this patient is a minor, it may be UNLAWFUL to discuss sensitive information that is contained in these records (such as FAMILY PLANNING, MENTAL HEALTH or SUBSTANCE ABUSE) with the minor patient's parent or other person without the patient's specific authorization.[facility] Social History Tobacco Use Types Packs/Day Years Used Date Smoking Tobacco: Never Assessed Comments Unknown Sex and Gender Information Value Date Recorded Sex Assigned at Female 12/25/2024 7:47 AM PDT Legal Sex Female 7:47 AM PDT Gender Identity Female 12/25/2024 7:47 AM PDT Sexual Orientation Not on file Plan of Treatment Upcoming Encounters Date Type Department Care Team ([facility] st Contact Info) Description 02/24/2025 10:00 AM EDT Behavioral Health Visit [facility] [address] [place] [address] BRENT BERMUDEZ [phone] Tomi Dinh, HNP [address] [place] [id number] Health Maintenance Due Date Last Done Comments Anxiety Screening 1995 HPV Screening 1995 Hepatitis C Screening 1995 Pap + HPV 1995 Tobacco Screening 1995 Relationship Safety Screening/Counseling 2010 Hypertension Screening (#1) 2013 Cervical Cancer Screening 2016 Pap Smear 2016 [id number] ( season) 2024 Alcohol and Drug Screen 06/04/2024 Depression Annual Screen 06/04/2024 Imm-Influenza (#1) 2025 07/05/2024, 1 07/16/2013, 04/04/2011, Additional history exists Imm-DTaP/Tdap/Td (11 - Td or Tdap) 03/31/2030 03/31/2020, 11/19/2018, 04/09/2017, Additional history exists Imm-Hepatitis B Completed 02/12/1996, 08/1995, 1995 HIV Screening Completed 01/25/2022 Cervical Ablation/Cold-Knife Conization Discontinued Cervical Cryotherapy Discontinued Colposcopy Discontinued Endometrial Biopsy Discontinued Excision/Leep Discontinued HPV Genotyping Discontinued Vaginal Pap Discontinued Vulvoscopy Discontinued
--- OUTSIDE RECORDS SUMMARY | 2025-01-24 20:35 | XMS_ITS | Encounter Summary ---
Author Organization [facility] Address [address] [place] [address] Care Team Providers Care Road Roller Engineer Name Role Phone Valeria Tao MD Primary Care Provider + Encounter Details Date Type Department Care Team (Late st Contact Info) Description 01/11/2019 Lab Requisition [facility] [address] [place] [address] Cooper Cardenas Encounter for screening Social History [...] of this encounter Procedures * Due to [place] [employer] law, this organization might not be sharing negative HIV tests. Procedure Name Priority Date/Time Associated Diagnosis Comments KLEIHAUER-BETKE STAIN Routine 01/11/2019 6:40 AM EDT Encounter for screening documented in this encounter Results * Due to [place] [employer] law, this organization might not be sharing negative HIV tests. * Kleihauer-Betke Stain (01/11/2019 6:40 AM EDT) Number of Cells 3 cells/1000 RBCs [facility] 01/11/2019 2:28 PM EDT [facility] Estimated Bleed 15 mL [facility]UAL 01/11/2019 2:28 PM EDT [facility] Comment:% of Cells X 5 0 (idealized [...] [facility] BLOOD ORDERABLES Final Resul t [facility] [address] [place] [address], documented in this encounter Visit Diagnoses Diagnosis Encounter for screening documented in this encounter Additional Health Concerns Infection Onset Date Last Indicated Resolved Time COVID-19 - Suspected infection 10/15/2019 10/15/2019 10/16/2019 7:05 AM EDT documented as of this encounter Care Teams Road Roller Engineer Relationship Specialty Start Date End Date Valeria Tao MD [address] [place] [address] PCP - General 12/01/24 documented as of this encounter
[2025-01-24 20:41] LABS: MANUAL DIFF FLAG NO
[2025-01-24 20:42] LABS: Hematocrit 28.6 % (37.0-47.0); Hemoglobin 9.0 g/dl (12.0-16.0); Imm Gran Abs Auto 0.02 X10*3/uL (0.00-0.03); Imm Gran Pct Auto 0.3 % (0.0-0.4); Lymphocytes Absolute Auto 1.4 X10*3/uL (1.2-4.9); Mean Corpuscular HGB Conc 31.5 g/dl (31.0-35.0); Mean Corpuscular Hemoglobin 24.0 pg (27.0-33.0); Mean Corpuscular Volume 76.3 fL (80.0-98.0); NRBC Abs Auto 0.000 X10*3/uL (0.0-0.012); NRBC Pct Auto 0.0 /100WBC (0.0-0.2); Platelet Count 216 X10*3/uL (160-400); Red Blood Count 3.75 X10*6/uL (4.20-5.50); White Blood Count 6.5 X10*3/uL (4.8-10.8)
[2025-01-24 20:47] VITALS: BP 120/60; PULSE 106; RESP 20; TEMP 36.3; O2SAT 96
[2025-01-24 21:06] LABS: Alanine Aminotransferase 74 U/L (0-31); Albumin Level 4.0 g/dL (3.5-5.0); Alkaline Phosphatase 146 U/L (39-117); Anion Gap 12 (12-20); Aspartate Amino Transferase 82 U/L (5-31); Blood Urea Nitrogen 9 mg/dL (9-16); Calcium 8.4 mg/dL (8.4-10.2); Carbon Dioxide 19 mmol/L (22-29); Chloride 112 mmol/L (96-108); Creatinine Clr Calc Pharmacy 107.4; Estimated Glomerular Filt Rate > 60; Lipase 5 U/L (8-78); Magnesium 1.9 mg/dL (1.6-2.6); Potassium 3.6 mmol/L (3.3-5.1); Sodium 139 mmol/L (135-145); Total Protein 6.7 g/dL (6.5-8.0)
[2025-01-24] MEDS: iohexoL 350 MG/ML 100 ML INFUS..BTL 85 ML IV (22:01)
[2025-01-24 22:16] VITALS: BP 120/73; PULSE 109; RESP 18; TEMP 37; O2SAT 97
[2025-01-24 23:04] VITALS: BP 115/57; PULSE 101; RESP 18; O2SAT 98
[2025-01-24 23:57] VITALS: BP 115/57; PULSE 101; RESP 18; TEMP 36.6; O2SAT 98
== END 2025-01-25 00:12 | disposition home or self-care (01) ==
PROVIDERS: Physician Assistant Medical; Emergency Provider Emergency Medicine; PCP General Practice
DX: K59.00 Constipation, unspecified (principal); R10.2 Pelvic and perineal pain; D64.9 Anemia, unspecified; R11.0 Nausea; Z79.899 Other long term (current) drug therapy
CPT/HCPCS: 36415; 74177; 80053; 80307; 83690; 83735; 84702; 85025; 96361; 96374; 96375; 96376; 99284; J1171; J2405; Q9967

== ENCOUNTER → 2025-01-24 21:02 | Outpatient (BNV) | payer MEDICAID, SELFPAY | PROVIDERS: Emergency Provider Emergency Medicine; PCP General Practice; Visit Provider Radiology Diagnostic Radiology | DX: K76.0 Fatty (change of) liver, not elsewhere classified (principal) | CPT/HCPCS: 74177 ==

== ENCOUNTER 2025-01-26 14:38 | Emergency (ER) | payer MEDICAID, SELFPAY ==
--- OUTSIDE RECORDS SUMMARY | 2025-01-21 10:00 | XMS_ITS | Encounter Summary ---
Author Organization [facility] Address [address] [facility] [address] [place] [address] Care Team Providers Care Slope Runner Name Role Phone Bailee Lewis MD Primary Care Provider [phone] Reason for Visit * Reason Comments BOLT HEADER Renewal Encounter Details Date Type Department Care Team (Latest Contact Info) Description 01/21/2025 10:00 AM EDT Clinical Support [address] [address] Ena Grant RN Long-term current use of opiate analgesic (Primary Dx) Social History Tobacco Use Types Packs/Day Years Used Date Smoking Tobacco: Never Passive Smoke Exposure: Never Smokeless Tobacco: Never Alcohol Use Standard Drinks/Week Comments Never 0 (1 standard drink = 0.6 oz pur e alcohol) Alcohol Answer Date Recorded How often do you have a drink containing alcohol ? 0 11/16/2024 How many drinks containing a lcohol do you have on a typical day when you are drinking? 0 11/16/2024 How often do you have six or more drinks on one occasion? 0 11/16/2024 Depression Answer Date Recorded Patient Health Questionnaire-9 Score 17 12/24/2024 Patient Health Questionnaire-9 Score 17 12/24/2024 Last PHQ-9: Questionnaire Data Not on file 0 12/24/2024 Housing Stability Answer Date Recorded What is your housing situation today? I do not have housing (Staying with others, in a hotel, in a alf, living outside on the street, on a beach, in a car, or in a park 11/25/[address] you li ve. Do you have problems with any of the following? None of the above 11/25/2024 Food Insecurity Answer Date Recorded Within the [...] things needed for daily living? No 11/01/2023 Intimate Partner Violence Answer Date R ecorded Within the last year, have y ou been afraid of your partner or ex-partner? 2 11/16/2024 Within the last year, have y ou been humiliated or emotionally abused in other ways by your partner or ex-partner? 2 Within the last year, have y ou been kicked, hit, slapped, or otherwise physically hurt by your partner or ex-partner? 2 11/16/2024 Within the last year, have y ou been raped or forced to have any kind of sexual activity by your partner or ex-partner? 2 11/16/2024 Utilities Answer Date Recorded In the past 12 months, has t he electric, gas, oil or water company threatened to shut off services in your home? No 11/01/2023 Depression Answer Date Recorded Patient Health Questionnaire-2 Score 6 12/24/2024 Internet Access Answer Date Recorded Internet Access [...] as of this encounter Progress Notes * Ean Grant RN - 01/21/2025 10:00 AM EDT SUBJECTIVE: Deepti Aguilar is a 29 y.o. year old female who presents for BOLT HEADER Renewal Preferred language for medical information: Fijian Deepti Aguilar does report adherence to Butrans patches (Buprenorphine) 5 mcg, apply 2 patches every7 days, last refilled 01/13/25 The patient last changed her Butrans patches (Buprenorphine) on: 01/20/2025 Pt reports that her pain relief has improved with the increase in her Butrans dosing. Deepti Aguilar does report adherence to Hydrocodone (Vicodin/Hokah) 5 mg, take 2 tablet every 6 hours PRN, last refilled 01/20/2025. The patient last took Hydrocodone (Vicodin/Hokah) on: 01/21/2025 Medication is: 50% % effective at alleviating pain. She said she takes between 6-8 hydrocodone a day, depending on her pain level. . She reports she has not had any ER visits for pain since her last BOLT HEADER appt 01/14/25. Pt started on Butrans 5mcg patch - change q week, on 01/13/25. On 01/14/25, PCP increased Butrans dose to 10mcg - change q week. Pt cancelled chronic pain group appt . OBJECTIVE: PSYCHIATRIC THERAPIST checked: 01/21/2025 Patch count completed for Butrans patches (Buprenorphine) , count today is 0 , anticipated count should be 0, this is as expected. Pill count completed for Hydrocodone (Vicodin/Hokah) , count today is 55 , anticipated count shouldbe 46, this is as expected. Vital Signs Pain Score: 8 Pain Loc: Abdomen Pain Education: Yes Last PCP visit: 01/12/2025 BPI completed on: 01/21/2025 , pain severity score: 8, activity interference score: 8 BPI completed on: 02/06/2024 , pain severity score: 8, activity interference score: 7 Controlled substance agreement signed: Controlled Substance Agreement 01/21/2025 Controlled substance agreement: signed and up to date BOLT HEADER Tier: 1 Current Medications[1] Smoking status: Denies ETOH use: Denies, said she has stopped all ETOH use Illicit substances: Denies Marijuana use: No Lab Results Component Value Date POCTHC Negative 01/21/2025 POCCOCAINEUR Negative 01/21/2025 POCOPIATEUR Positive 01/21/2025 DOAUR Negative 01/21/2025 POCAMPHETAMI Negative 01/21/2025 POCBENZODIUR Negative 01/21/2025 POCBARBSCRN Negative 01/21/2025 POCMETHADOUR Negative 01/21/2025 POCBUPSCRN Positive 01/21/2025 POCTCAUR Negative 01/21/2025 POCMDMAUR Negative 01/21/2025 POCOXYCODONE Negative 01/21/2025 POCPHENCYCUR Negative 01/21/2025 PROPOXUR Negative 01/21/2025 FENTANYLURIN Negative 01/21/2025 ASSESSMENT: Encounter Diagnosis Name Primary? Long-term current use of opiate analgesic Yes PLAN: Information on pain group given: Yes Information on acupuncture given: Yes Narcan education provided: Yes Narcan prescription: active Will update PCP with BPI scoring and request Butrans refill. Controlled substance agreement reviewed and signed. A copy was given to the patient. Deepti Aguilar will continue taking medications as prescribed and has verbalized understanding of care plan. Future Appointments Date Time Provider Department Center 01/28/2025 11:30 AM Ena Grant RN [facility]ICINE [facility] 02/04/2025 9:30 AM Ena Grant RN [facility]ICINE [facility] Ena Grant RN [1] Current Outpatient Medications: buprenorphine (Butrans) 5 MCG/HR, Place 1 patch on the skin 1 (one) time per week., Disp: 4 patch, Rfl: 5 HYDROcodone-acetaminophen (Hokah) 5-325 MG tablet, Take 2 tablets by mouth every 6 (six) hours if needed for severe pain for up to 7 days., Disp: 56 tablet, Rfl: 0 naloxone (Narcan) 4 mg/0.1 mL nasal spray, Administer 1 spray (4 mg) into affected nostril(s) if needed for opioid reversal. May repeat every 2-3 minutes if needed, alternating nostrils, until medical assistance becomes available., Disp: 2 each, Rfl: 0 albuterol 108 (90 Base) MCG/ACT inhaler, Inhale 2 puffs every 6 (six) hours if needed for shortnessof breath., Disp: 18 g, Rfl: 5 Creon 11306-08176 units capsule, Take 1 capsule by mouth with breakfast, with lunch, and with evening meal., Disp: 270 capsule, Rfl: 3 ibuprofen 800 MG tablet, TAKE 1 TABLET BY MOUTH ONCE A DAY NEEDED, Disp: 60 tablet, Rfl: 1 OLANZapine zydis (ZyPREXA ZYDIS) 20 MG disintegrating tablet, TAKE 1 TABLET BY MOUTH AT BEDTIME, Disp: 30 tablet, Rfl: 2 ondansetron (Zofran) 4 MG tablet, Take 1 tablet (4 mg) by mouth every 8 (eight) hours if needed fornausea or vomiting., Disp: 10 tablet, Rfl: 0 pantoprazole (ProtoNix) 40 MG EC tablet, Take 1 tablet (40 mg) by mouth before breakfast. Do not crush, chew, or split., Disp: 90 tablet, Rfl: 3 polyethylene glycol, PEG, 3350 (MiraLax) 17 GM/SCOOP powder, Take 17 g by mouth Once per day., Disp: 527 g, Rfl: 3 pregabalin (Lyrica) 300 MG capsule, Take 1 capsule (300 mg) by mouth 2 times daily., Disp: 60 capsule, Rfl: 1 senna-docusate sodium (Senokot-S) 8.6-50 MG tablet, Take 2 tablets by mouth Once per day., Disp: 180 tablet, Rfl: 1 sertraline (Zoloft) 100 MG tablet, Take 1 tablet (100 mg) by mouth Once per day., Disp: 90 tablet, Rfl: 3 documented in this encounter Plan of Treatment Upcoming Encounters Date Type Department Care Team (Late st Contact Info) Description 02/11/2025 2:30 PM EDT Clinical Support [address] [address] Ena Grant RN 02/16/2025 11:00 AM EDT Office Visit [address] [address] documented as of this encounter Procedures Procedure Name Priority Date/Time Associated Diagnosis Comments POCT ANGE-14 URINE DRUG SCREEN Routine 01/21/2025 12:24 PM EDT Long-term current use of opiate analgesic documented in this encounter Results * POCT ANGE-14 Urine Drug Screen (01/21/2025 12:24 PM EDT) THC Negative Negative Cocaine Screen, Urine Negative Negative Opiate Screen, Urine Positive Negative Methamphetamine Screen Urine Negative Negative Amphetamine Screen, Urine Negative Negative Benzodiazepines Screen, Urine Negative Negative Barbiturate Screen, Urine Negative Negative Methadone Screen, Urine Negative Negative Buprenophine Screen, Urine Positive Negative TCA, Urine Negative Negative MDMA Urine Negative Negative ng/mL Oxycodone Screen, Urine Negative Negative Phencyclidine (PCP), Urine Negative Negative Propoxyphene, Urine Negative Negative Fentanyl, Urine Negative Negative Urine Urine specimen obtained by clean catch procedure / Unknown 01/21/2025 12:24 PM EDT Ena Saxena, EL - 01/21/2025 12:24 PM EDT UTOX cup Lot#[id number] Exp. 03/10/26 Internal Pass Control Bailee Lewis MD POINT OF CARE TEST ENTER/EDIT ORDERABLES Final Result documented in this encounter Visit Diagnoses Diagnosis Long-term current use of opiate analgesic- Primary Encounter for long-term (current) use of other medications documented in this encounter Additional Health Concerns Assessment Noted Time PHQ-9 Depression Total Score: 17 025 8:35 AM EDT documented as of this encounter Care Teams Slope Runner Relationship Specialty Start Date End Date Bailee Lewis MD [address] [place] [id number] PCP - General Family Medicine 11/14/24 documented as of this encounter
--- OUTSIDE RECORDS SUMMARY | 2025-01-26 11:00 | XMS_ITS | Encounter Summary ---
Author Organization [employer] Address [address] [facility] 7t [place] [address] Care Team Providers Care Surface Plate Finisher Name Role Phone Bailee Lewis MD Primary Care Provider [phone] Encounter Details Date Type Department Care Team ([facility] st Contact Info) Description 01/26/2025 11:00 AM EDT Office Visit [facility] [address] [place] [address] Arrived Social History Tobacco Use Types Packs/Day [...] with others, in a hotel, in a mcc, living outside on the street, on a [...] the past 12 months, has t he [employer], gas, oil or water company threatened to [...] Description 02/11/2025 2:30 PM EDT Clinical Support [facility] [address] [place] [address] Ena Grant RN 02/16/2025 11:00 AM EDT Office Visit [facility] [address] [place] [address] documented as of this encounter Visit Diagnoses Not on filedocumented in this encounter Additional Health Concerns Assessment Noted Time PHQ-9 Depression Total Score: 17 025 8:35 AM EDT documented as of this encounter Care Teams Surface Plate Finisher Relationship Specialty Start Date End Date Bailee Lewis MD [address] [place] [address] PCP - General Family Medicine 11/14/24 documented as of this encounter
[2025-01-26 14:47] VITALS: BP 118/74; PULSE 96; RESP 18; TEMP 36.3; O2SAT 98; BMI 25.7
--- NOTE | 2025-01-26 14:51 | ED_ITS ---
HPI - General Adult General Chief complaint: Abdominal Pain Stated complaint: pancreatitis Time Seen by Provider: 01/26/25 18:20 Source: patient Mode of arrival: ambulatory Limitations: no limitations History of Present Illness ED Provider: HPI narrative: Patient states she was seeing her PCP was reporting increased abdominal pain and she was hyperglycemic, and was sent to the ER, patient has chronic pancreatitis she endorses that, she is on a pain contract. She reports increased abdominal pain. Related Data Home Medications ?Medication ?Instructions ?Recorded ?Confirmed hydroxyzine pamoate 50 mg capsule 50 mg PO Q6H PRN anx iety 07/05/24 01/11/25 morphine 15 mg tablet,extended 15 mg PO BID 12/24/24 0 01/11/25 release oxycodone 10 mg tablet 10 mg PO Q8H 12/24/24 pregabalin 300 mg capsule 300 mg PO BID 12/24/2401/11 sertraline 100 mg tablet 100 mg PO DAILY 12/24/2403/28 Previous Rx's ?Medication ?Instructions ?Recorded [id number] 1 cap PO TIDWM #270 caps 24,000-76,000-120,000 unit capsule,delayed rel (Creon) Allergies Allergy/AdvReac Type Severity Reaction Status Date / Time No Known Allergies Allergy Verified 01/26/25 14:50 PMFSH Past Medical History Medical History Chronic pancreatitis Alcohol abuse Necrotizing pancreatitis Benign tumor of breast Alcohol abuse Asthma Anxiety Surgical History No history of previous surgery Social History Social History Household Members: Family Housing: House Do you presently have visiting nurse or other home services: No Alcohol intake: former Patient Tobacco Use Status: Never used Tobacco Substance Use Type: Prescription Drugs Advance Directives: No Advance Directives Information Provided: No Do you have a plan to hurt others: No Plan service: No Physical Exam ED Vital Signs: Vital Signs - 24 hr 01/26/25 14:47 01/26/25 18:00 Temperature 97.4 F Pulse Rate 96 99 Respiratory Rate 18 18 Blood Pressure 118/74 139/66 Pulse Oximetry 98 98 Oxygen Delivery Method Room Air Room Air BMI result Body Mass Index 25.7 Const Other: * Gen: ?Appears comfortable * Resp: ?No wheezing rales rhonchi no stridor moving air well * Abd: ?Bowel sounds are present, no tenderness no rebound no rigidity * MSK: FROM, strength 5/5 all extremities * Skin: Warm, dry, intact, * Neuro: ?Alert and oriented x3, moving upper and lower extremities symmetrically, no obvious facial asymmetry noted Course Course Course Narrative: Rapid medical examination performed in triage by Vianey Toscano PA-C. Patient is a 29 year old assigned female at presenting to the emergency department with abdominal pain, nausea, and vomiting. Detailed physical exam and review of systems are deferred to the team primary care physician. Labs ordered. Patient placed back in the waiting room pending room availability and results. Medical Decision Making Medical Decision Making [facility] Narrative: I spoke with the patient, I reviewed her records and she has had 5 visits to the ED on the , , , , and today makes 6th visit to the ER ( [facility] ), she has had a total of 3 CTs ( this month ) on the , , and between [facility] and [facility], and had abdominal MRI on January 07. All of these images were negative. I did not count how many CAT scans patient had in the past few years, I am not sure if her PCP has referred her, but I have also communicated to her PCP re- multiple ER visits and sent an e- mail to my director to communicate my concerns regarding frequent ER visits, frequent imaging as well as intravenous narcotic use while in the ER. We are clearly placing patient at an increased risk on multiple fronts, she told me that she is only doing what doctors tell her to do , and I believe we can do better if that is the case. With that said, she has no fevers suspect underlying infectious etiology, blood work reassuring with stable transaminitis, no elevation of lipase though I understand lipase levels can be low and chronic pancreatitis as well, she has functional gut, and epigastric tenderness, she appeared quite comfortable, as far as hyperglycemia there was no indication that she is in DKA, and her glucose here was only marginally elevated. Differential Diagnosis Differential Diagnoses: The differential diagnosis associated with the presentation includes (Chronic pancreatitis, SBO, constipation, opiate dependence, gastritis) Lab Data MDM Lab Attestation statement: I reviewed the patient's lab results. 01/26/25 16:32 01/26/25 16:32 Labs: Lab Results 01/26/25 Range/Units 16:32 WBC 9.3 (4.8-10.8) X10*3/uL RBC 3.95 L (4.20-5.50) X10*6/uL Hgb 9.4 L (12.0-16.0) g/dl Hct 30.0 L (37.0-47.0) % MCV 75.9 L (80.0-98.0) fL MCH 23.8 L (27.0-33.0) pg MCHC 31.3 (31.0-35.0) g/dl RDW 16.7 H (11.0-16.0) % Plt Count 224 (160-400) X10*3/uL MPV 10.6 (9.4-12.3) fL Immature Gran % (Auto) 0.3 (0.0-0.4) % Neut % (Auto) 71.6 (45-73) % Lymph % (Auto) 19.5 L (20-40) % [place] % (Auto) 7.1 (2-11) % Eos % (Auto) 1.1 (0-4) % Baso % (Auto) 0.4 (0-2) % Lymph # (Auto) 1.8 (1.2-4.9) X10*3/uL [place] # (Auto) 0.7 (0.1-1.2) X10*3/uL Eos # (Auto) 0.1 (0.0-0.4) X10*3/uL Baso # (Auto) 0.0 (0.0-0.2) X10*3/uL Abs Immat Gran (auto) 0.03 (0.00-0.03) X10*3/uL Absolute Neuts (auto) 6.7 (2.0-8.3) x10*3/uL Absolute Nucleated RBC 0.000 (0.0-0.012) X10*3/uL Nucleated RBC % (auto) 0.0 (0.0-0.2) /100WBC Sodium 139 (135-145) mmol/L Potassium 3.8 (3.3-5.1) mmol/L Chloride 111 H (96-108) mmol/L Carbon Dioxide 20 L (22-29) mmol/L Anion Gap 12 (12-20) BUN 6 L (9-16) mg/dL Creatinine 0.63 (0.5-1.4) mg/dL Estim Creat Clear Calc 129.4 Estimated GFR > 60 Random Glucose 116 H (60-115) mg/dL Calcium 8.4 (8.4-10.2) mg/dL Magnesium 1.8 (1.6-2.6) mg/dL Total Bilirubin 0.3 (0.0-1.0) mg/dL AST 63 H (5-31) U/L ALT 81 H (0-31) U/L Alkaline Phosphatase 137 H (39-117) U/L Total Protein 6.6 (6.5-8.0) g/dL Albumin 4.1 (3.5-5.0) g/dL Lipase 6 L (8-78) U/L External Record Review External record reviewed: Inpatient record, Outpatient record, Prior outpatient labs and Prior outpatient radiology Tests considered The following testing was considered but not selected: CT abdomen and pelvis Prescription Management I considered prescription management with: Pain Medication Chronic Conditions Patient?s care impacted by: Other (Chronic pancreatitis, opiate dependence) Discharge Plan Discharge Clinical Impression: Abdominal pain, chronic, epigastric Additional Instructions: Your blood work is reassuring, your glucose was 116 on our blood drawer, no new changes in your lipase or your LFTs, I have discussed with the you my concerns regarding chronic pain management with frequent ER visits that usually result in IV narcotics which increase your tolerance and likely leads to worsening pain symptoms. I am communicating this with the your PCP as well. You are always welcome to come back to the ER for any worsening issues or concerns. Overall I am reassured by the vital signs, your workup today and in the past month and a half. Prescriptions: No Action hydroxyzine pamoate 50 mg capsule 50 mg PO Q6H PRN (Reason: anxiety) Creon 24,000-76,000 -120,000 unit Capsule,Delayed Release(Dr/Ec) 1 cap PO TIDWM Qty: 270 0RF sertraline 100 mg tablet 100 mg PO DAILY pregabalin 300 mg capsule 300 mg PO BID oxycodone 10 mg tablet 10 mg PO Q8H morphine 15 mg tablet extended release 15 mg PO BID Referrals: Bailee Lewis MD [Primary Care Provider, Internal Medicine] - 1 week Referral Note: Patient had 5 ER visits within the past 1 month, 3 CTs and MRI, she is on a pain contract Clinical Impression: Abdominal pain, chronic, epigastric Print Language: Finnish
[2025-01-26 16:43] LABS: MANUAL DIFF FLAG NO
[2025-01-26 16:47] LABS: Hematocrit 30.0 % (37.0-47.0); Hemoglobin 9.4 g/dl (12.0-16.0); Imm Gran Abs Auto 0.03 X10*3/uL (0.00-0.03); Imm Gran Pct Auto 0.3 % (0.0-0.4); Lymphocytes Absolute Auto 1.8 X10*3/uL (1.2-4.9); Mean Corpuscular HGB Conc 31.3 g/dl (31.0-35.0); Mean Corpuscular Hemoglobin 23.8 pg (27.0-33.0); Mean Corpuscular Volume 75.9 fL (80.0-98.0); NRBC Abs Auto 0.000 X10*3/uL (0.0-0.012); NRBC Pct Auto 0.0 /100WBC (0.0-0.2); Platelet Count 224 X10*3/uL (160-400); Red Blood Count 3.95 X10*6/uL (4.20-5.50); White Blood Count 9.3 X10*3/uL (4.8-10.8)
[2025-01-26 17:00] LABS: Alanine Aminotransferase 81 U/L (0-31); Albumin Level 4.1 g/dL (3.5-5.0); Alkaline Phosphatase 137 U/L (39-117); Anion Gap 12 (12-20); Aspartate Amino Transferase 63 U/L (5-31); Blood Urea Nitrogen 6 mg/dL (9-16); Calcium 8.4 mg/dL (8.4-10.2); Carbon Dioxide 20 mmol/L (22-29); Chloride 111 mmol/L (96-108); Creatinine Clr Calc Pharmacy 129.4; Estimated Glomerular Filt Rate > 60; Lipase 6 U/L (8-78); Magnesium 1.8 mg/dL (1.6-2.6); Potassium 3.8 mmol/L (3.3-5.1); Sodium 139 mmol/L (135-145); Total Protein 6.6 g/dL (6.5-8.0)
[2025-01-26 18:00] VITALS: BP 139/66; PULSE 99; RESP 18; O2SAT 98
--- OUTSIDE RECORDS SUMMARY | 2025-01-26 18:22 | XMS_ITS | Clinical Summary ---
Author Organization [facility] Address [address] [place] [address] Phone Care Team Providers Care Nurse School Name Role Phone Ibeth Lassiter MD Primary Care Provider [phone] Medications acetaminophen (TYLENOL) 325 mg tablet Take [...] Encounters Date Type Department Care Team Description 01/26/2025 Ancillary Orders [facility] [address] [place] [address] Arturo Gayle MD, PhD 01/26/2025 Ancillary Orders [facility] [address] [place] [address] Arturo Gayle MD, PhD 01/26/2025 Ancillary Orders [facility] [address] [place] [address] Arturo Gayle MD, PhD 01/12/2025 Ancillary Procedure [facility] [address] [place] [address] Arturo Gayle MD, PhD Arrived 12/09/2024 Ancillary Procedure [facility] [address] [place] [address] Arturo Gayle MD, PhD Arrived 11/26/2024 Telephone [facility] [address] [facility] [address] [place] [address] Arturo Gayle MD, PhD Nalini / schedule coord 10/31/2024 3:00 PM EDT Office Visit [facility] [place] [id number] [place] [address] Arturo Gayle MD, PhD Necrotizing pancreatitis (Primary [...] Info) Description 03/06/2025 10:20 AM EDT Telemedicine [facility] at [place] [address] [place] [address] Arturo Gayle MD, PhD [address] [place] [address] [email or web address] Health Maintenance Due Date Last Done Comments SMOKING Hx and SMOKELESS TOBACCO SCREENING 2008 HIV ONE-TIME SCREENING (18-65 YEARS) 2013 PAP SMEAR 2016 COVID-19 VACCINE ( season) 2024 INFLUENZA VACCINE (#1) 2025 07/05/2024, 2013 DEPRESSION SCREENING 10/24/2025 10/24/2024 Adult Td,Tdap Booster [...] 01/23/2025 OUTSIDE PROCEDURE 01/23/2025 OUTSIDE PROCEDURE 01/23/2025 CT ABDOMEN/PELVIS OUTSIDE (NO INTERPRETATION) Routine 01/12/2025 12:00 AM EDT OUTSIDE IMAGING 01/08/2025 CT ABDOMEN OUTSIDE (NO INTERPRETATION) Routine 12/09/2024 12:00 AM EDT from Last 3 Months Results * Outside Procedure (01/23/2025) us Scanning Interface Provider PROCEDURE/MINOR SURG ICAL PERFORMABLES Final Result * Outside Procedure (01/23/2025) us Scanning Interface Provider PROCEDURE/MINOR SURG ICAL PERFORMABLES Final Result * Outside Lab (01/23/2025) us Scanning Interface Provider LAB BLOOD ORDERABLES Final Result * CT Abdomen/Pelvis Outside (No Interpretation) (01/12/2025 12:00 AM EDT) Narrative [facility] - 01/26/2025 9:27 AM EDT This study is for PACS storage only and not for interpretation. us Arturo Gayle MD, PhD IMG OU TSIDE IMAGING W/OUT INTERPRETATION Final Result Performing Organization Address [facility]/ZIP Co de Phone Number [facility] * Outside Imaging Report Only (01/08/2025) us Scanning Interface Provider IMG XR CHEST Claire l Result * CT Abdomen Outside (No Interpretation) (12/09/2024 12:00 AM EDT) Narrative [facility] - 01/26/2025 9:27 AM EDT This study is for PACS storage only and not for interpretation. us Arturo Gayle MD, PhD IMG OU TSIDE IMAGING W/OUT INTERPRETATION Final Result [facility] from Last 3 Months Insurance [facility] [address] [place] [address] [place] [address] C3 [employer] [facility] C3 [facility] C3 ACO Care Teams Nurse School Relationship Specialty Start Date End Date Ibeth Lassiter MD [address] [place] [address] [facility] [place] [address] PCP - General Family Medicine 08/15/24 Additional Source Comments The information contained in this document represents components of the legal health record. It is not the complete legal health record.[facility]
--- OUTSIDE RECORDS SUMMARY | 2025-01-26 18:22 | XMS_ITS | Encounter Summary ---
Author Organization [employer] Address [address] [place] [address] 7[address] [place] [address] Care Team Providers Care Loading Unit Operator Crimping Name Role Phone Bailee Lewis MD Primary Care Provider Reason for Visit * Reason Onset Date Comments Appointment Request 01/05/2025 Weekly DIRECTOR OF PHYSIOTHERAPY SERVICES Visits Wed's @ 12p 01/05/2025 Weekly pain medication refill after DIRECTOR OF PHYSIOTHERAPY SERVICES visit Encounter Details Date Type Department Care Team (Late st Contact Info) Description 01/05/2025 Telephone [facility] [address] [place] [address] Bailee Lewis MD [address] [place] [address] Appointment Request; Weekly DIRECTOR OF PHYSIOTHERAPY SERVICES Visits Wed's @ 12p; Weekly pain medication refill after DIRECTOR OF PHYSIOTHERAPY SERVICES visit Social History Tobacco Use Types Packs/Day Years [...] with others, in a hotel, in a fci, living outside on the street, on a [...] encounter Miscellaneous Notes * Telephone Encounter - Ena Grant RN - 01/08/2025 1:08 PM EDT Received the following message from PCP today: Her MRI did not show any new or concerning findings about her pancreas. Why don't we check-in withher tomorrow after her court date? She should come to chronic pain clinic on Sunday and we can restart her opioid pain medications on the same time, even though it will be early to restart them then.In the meantime she should take her medications as directed and we can add Gabapentin and other nerve modulators to help with her pain, when we talk tomorrow 01/08/25. TC to patient, patient stated she was given IV Dilaudid X3 yesterday while @ [facility] yesterday. She stated they wanted to admit her but she refused d/t court today. She reports court did not go well today. After court this morning she went back to [facility] ER again d/t increased pain, but left because it was too busy. Pt stated she has tried gabapentin before and it did not help with her pain symptoms at all. Pt scheduled to see PCP on Sunday at chronic pain group. * Telephone Encounter - Ena Grant RN - 01/07/2025 2:40 PM EDT TC to patient. Pt completed her MRI, results are already uploaded to her chart. Pt stated she's currently in ER d/t unbearable pain. She stated she wont be staying at d/t she has court tomorrowmorning and she has to attend so even if they want to admit her she wont stay. MS contin last picked up 12/15/24 pt reports having 1 tablet remaining, anticipated she would have 9. Oxycodone last picked up 12/19/24 pt reports having 10 tablets remaining, anticipated she would have26. * Telephone Encounter - Ena Grant RN - 01/07/2025 11:05 AM EDT Return TC to patient, PCP Dr Lewis also present for call. Discussed with patient a plan for safely monitoring patient and helping pt with her pain issues. Patient to come to see DIRECTOR OF PHYSIOTHERAPY SERVICES weekly on Wednesdays @ 12p and after DIRECTOR OF PHYSIOTHERAPY SERVICES visit pt will be given 7 day refill of pain medication. Pt also reminded she can attend chronic pain appt every Sunday @ 11am as well. Pt on her way currently for her MRI scan. Will call patient this afternoon for her pain medication pill count. * Telephone Encounter - Vitaly See - 01/05/2025 10:41 AM EDT Tc from pt requesting to reschedule pain management apt scheduled for today 01/05 , pt states she is not feeling well . Contact pt at [phone] documented in this encounter Plan of Treatment Upcoming Encounters Date Type Department Care Team (Late st Contact Info) Description 02/11/2025 2:30 PM EDT Clinical Support [address] [address] Ena Grant RN 02/16/2025 11:00 AM EDT Office Visit [address] [address] documented as of this encounter Visit Diagnoses Not on filedocumented in this encounter Additional Health Concerns Assessment Noted Time PHQ-9 Depression Total Score: 17 025 8:35 AM EDT documented as of this encounter Care Teams Loading Unit Operator Crimping Relationship Specialty Start Date End Date Bailee Lewis MD [address] [place] [address] PCP - General Family Medicine 11/14/24 documented as of this encounter
--- OUTSIDE RECORDS SUMMARY | 2025-01-26 18:22 | XMS_ITS | Encounter Summary ---
Author Organization [employer] Address [address] [facility] 7t [place] [address] Care Team Providers Care Director Of Midwifery/Staff Midwife Name Role Phone Bailee Lewis MD Primary Care Provider [phone] Encounter Details Date Type Department Care Team ([facility] st Contact Info) Description 01/07/2025 Orders Only [facility] [address] [place], [place] [phone] Bailee Lewis MD [address] [place], [place] [phone] Alcohol-induced chronic pancreatitis (CMS/HCC) (Primary Dx) Social History Tobacco Use [...] with others, in a hotel, in a group home, living outside on the street, on a [...] Description 02/11/2025 2:30 PM EDT Clinical Support [address] [address] Ena Grant RN 02/16/2025 11:00 AM EDT Office Visit [facility] [address] [place] [address] documented as of this encounter Visit Diagnoses Diagnosis Alcohol-induced chronic pancreatitis (CMS/HCC)- Primary Chronic pancreatitis documented in this encounter Additional Health Concerns Assessment Noted Time PHQ-9 Depression Total Score: 17 025 8:35 AM EDT documented as of this encounter Care Teams Director Of Midwifery/Staff Midwife Relationship Specialty Start Date End Date Bailee Lewis MD [address] [place] [address] PCP - General Family Medicine 11/14/24 documented as of this encounter
--- OUTSIDE RECORDS SUMMARY | 2025-01-26 18:22 | XMS_ITS | Encounter Summary ---
Author Organization [facility] Address [address] [place] [address] Care Team Providers Care Dental Receptionist Name Role Phone Valeria Tao MD Primary Care Provider + Encounter Details Date Type Department Care Team (Late st Contact Info) Description 01/11/2019 Lab Requisition [facility] [address] [place] [address] Cooper Cardenas Encounter for screening Social History [...] of this encounter Procedures * Due to [place] [employer] law, this organization might not be sharing negative HIV tests. Procedure Name Priority Date/Time Associated Diagnosis Comments KLEIHAUER-BETKE STAIN Routine 01/11/2019 6:40 AM EDT Encounter for screening documented in this encounter Results * Due to [place] [facility] law, this organization might not be sharing negative HIV tests. * Kleihauer-Betke Stain (01/11/2019 6:40 AM EDT) Number of Cells 3 cells/1000 RBCs [facility] 01/11/2019 2:28 PM EDT [facility] Estimated Bleed 15 mL [facility] 01/11/2019 2:28 PM EDT [facility] Comment:% of Cells X 5 0 [...] [facility] BLOOD ORDERABLES Final Resul t [facility] [address] [place] [address], documented in this encounter Visit Diagnoses Diagnosis Encounter for screening documented in this encounter Additional Health Concerns Infection Onset Date Last Indicated Resolved Time COVID-19 - Suspected infection 10/15/2019 10/15/2019 10/16/2019 7:05 AM EDT documented as of this encounter Care Teams Dental Receptionist Relationship Specialty Start Date End Date Valeria Tao MD [address] [place] [address] PCP - General 12/01/24 documented as of this encounter
--- OUTSIDE RECORDS SUMMARY | 2025-01-26 18:22 | XMS_ITS | Encounter Summary ---
Author Organization [employer] Address [address] [place] [address] 7 [place] [address] Care Team Providers Care Credentialing Assistant Name Role Phone Ibeth Lassiter MD Primary Care Provider [phone] Amber Marie Primary Care Provider [phone] Bailee Lewis MD Primary Care Provider [phone] Ibeth Lassiter MD Primary Care Provider [phone] Bailee Lewis MD Primary Care Provider [phone] Reason for Visit * Reason Onset Date Comments Results 03/27/2024 Care Coordination 03/27/2024 [facility] initial a ssessment/ enrollment Encounter Details Date Type Department Care Team ([facility] Contact Info) Description 03/27/2024 Telephone [facility] CHC MED & PEDS [address] [place], [place] [phone] Ibeth Lassiter MD [address] [place], [place] [phone] Results; Care Coordination ([facility] initial assessment/ enrollment) Social History [...] was hospitalized about 2 days ago at [facility] for epigastric pain. Pt states she triesto avoid spicy food which triggers the pain. t states she is supposed to wear eyeglasses due to difficulty with her vision but hasn't seen the hook and eye sewing machine operator in a very long time. CM will mail a list of hook and eye sewing machine operator to pt's address on file and pt [...] understanding, and able to repeat back to writer producer. A follow up call will be placed within 10 days, patient agrees with plan. * Telephone Encounter - Nancy Aguilar RN - 04/02/2024 3:[address] was ordered by outside provider. Upon pt chart review, pt is currently admitted at [facility] for Abd pain after biliary stent placement. Pt to f/u once discharged. * Telephone Encounter - Catie Moreau - 03/27/2024 2:17 PM EDT TC from pt requesting call back regarding Results. Type of results: Ultrasound Date when done: 2 weeks ago Facility: [facility] Contact pt at [phone] documented in this encounter Plan of Treatment Upcoming Encounters Date Type Department Care Team (Late st Contact Info) Description 02/11/2025 2:30 PM EDT Clinical Support [facility] MEDICINE [address] [place] [address] Ena Grant RN 02/16/2025 11:00 AM EDT Office Visit [facility] MED[facility]INE [address] [place] [address] documented as of this encounter Visit Diagnoses Not on filedocumented in this encounter Additional Health Concerns Assessment Noted Time PHQ-9 Depression Total Score: 24 024 3:55 PM EDT documented as of this encounter Care Teams Credentialing Assistant Relationship Specialty Start Date End Date Ibeth Lassiter MD [address] [place] [address] PCP - General Family Medicine 12/16/21 10/01/24 Amber Marie FNP [address] [place] [address] PCP - General Family Medicine 10/02/24 10/08/24 Bailee Lewis MD [address] [place] [address] PCP - General Family Medicine 10/09/24 10/12/24 Ibeth Lassiter MD [address] [place] [address] PCP - General Family Medicine 10/13/24 11/13/24 Bailee Lewis MD [address] [place] [address] PCP - General Family Medicine 11/14/24 documented as of this encounter
--- OUTSIDE RECORDS SUMMARY | 2025-01-26 18:22 | XMS_ITS | Encounter Summary ---
Author Organization [employer] Address [address] [facility] 7t [place] [address] Care Team Providers Care Photography Assistant Name Role Phone Ibeth Lassiter MD Primary Care Provider [phone] Amber Marie Primary Care Provider [phone] Bailee Lewis MD Primary Care Provider [phone] Ibeth Lassiter MD Primary Care Provider [phone] Bailee Lewis MD Primary Care Provider [phone] Reason for Visit * Reason Onset Date Comments Medication Question 05/16/2024 Encounter Details Date Type Department Care Team (Late st Contact Info) Description 05/16/2024 Telephone [facility] MEDICINE [address] [place] [address] Ibeth Lassiter MD [address] [place], [place] [phone] Medication Question Social History Tobacco Use Types [...] the past 12 months, has t he [employer], gas, oil or water company threatened to [...] AM left message to return call to [facility] * Telephone Encounter - Ibeth Lassiter [...] around don't have it. Contact pt at [phone] documented in this encounter Plan of Treatment Upcoming Encounters Date Type Department Care Team (Late st Contact Info) Description 02/11/2025 2:30 PM EDT Clinical Support [address] [address] Ena Grant RN 02/16/2025 11:00 AM EDT Office Visit [address] [address] documented as of this encounter Visit Diagnoses Not on filedocumented in this encounter Additional Health Concerns Assessment Noted Time PHQ-9 Depression Total Score: 24 024 3:55 PM EDT documented as of this encounter Care Teams Photography Assistant Relationship Specialty Start Date End Date Ibeth Lassiter MD [address] [place] [address] PCP - General Family Medicine 12/16/21 10/01/24 Amber Marie FNP [address] [place] [address] PCP - General Family Medicine 10/02/24 10/08/24 Bailee Lewis MD [address] [place] [address] PCP - General Family Medicine 10/09/24 10/12/24 Ibeth Lassiter MD [address] [place] [address] PCP - General Family Medicine 10/13/24 11/13/24 Bailee Lewis MD [address] [place] [address] PCP - General Family Medicine 11/14/24 documented as of this encounter
--- OUTSIDE RECORDS SUMMARY | 2025-01-26 18:22 | XMS_ITS | Encounter Summary ---
Author Organization [employer] Address [address] [place] [address] 7 [place] [address] Care Team Providers Care Shift Production Associate Name Role Phone Ibeth Lassiter MD Primary Care Provider [phone] Amber Marie Primary Care Provider [phone] Bailee Lewis MD Primary Care Provider [phone] Ibeth Lassiter MD Primary Care Provider [phone] Bailee Lewis MD Primary Care Provider [phone] Reason for Referral * Imaging (Routine) - Closed Specialty Diagnoses / Procedures Referred By Contfrancy t Referred To Contact Radiology Diagnoses Mastodynia of left breast Procedures BI Mammogram Diagnostic Bilateral Bailee Lewis MD [address] [place] [address] Phone: tel: fax: [address] Phone: tel: fax: Referral ID Status Reason Start Date Expiration Date Visits Re quested Visits Authorized [id number] Closed 12/22/2022 12/22/2023 1 1 Encounter Details Date Type Department Care Team (Late st Contact Info) Description 12/22/2022 Orders Only [facility] MEDICINE [address] [place], [place] [phone] Bailee Lewis MD [address] [place], [place] [phone] Mastodynia of left breast (Primary Dx) Social [...] Description 02/11/2025 2:30 PM EDT Clinical Support [facility]ICINE [address] [place] [address] Ena Grant RN 02/16/2025 11:00 AM EDT Office Visit [address] [address] Scheduled Orders Name Type Priority Associated Diagnoses [...] PM EDT Narrative 01/16/2023 3:34 PM EDT [facility] [address] [place] [address] Ultrasound Report Signed Patient: Deepti Aguilar MR#: [id number] 5 : 1995 Acct:[id number] Age/Sex: 27 / F ADM Date: 01/16/23 Loc: MAMMO Attending Dr: Yuly Guzman CNM Ordering Physician: YULY GUZMAN CNM Date of Service: 01/16/23 Procedure(s): US breast LT limited mamm only Accession Number(s): [id number] cc: YULY GUZMAN CNM EXAMINATION: US DIAGNOSTIC [...] in OV> 01/16/23 1531 DD/ 1500 TD/TT: On Awake Counselor: Procedure Note Donotuseinterpreter, Image - [facility]16/[facility] [address] [place] [address] Ultrasound Report Signed Patient: Deepti Aguilar#: [id number] 5 : 1995Acct:[id number] Age/Sex: 27 / FADM Date: 01/16/23 Loc: MAMMO Attending Dr: Yuly Guzman CNM Ordering Physician: YULY GUZMAN CNM Date of Service: 01/16/23 Procedure(s): US breast LT limited mamm only Accession Number(s): [id number] cc: YULY GUZMAN CNM EXAMINATION: US DIAGNOSTIC [...] in OV> 01/16/23 1531 DD/ 1500 TD/TT: On Awake Counselor: us Yuly BARRAGAN IMG US PROCEDURES Final R esult documented in this encounter Visit Diagnoses Diagnosis Mastodynia of left breast- Primary documented in this encounter Additional Health Concerns Assessment Noted Time PHQ-9 Depression Total Score: 8 06/29/19 23 2:00 PM EST documented as of this encounter Care Teams Shift Production Associate Relationship Specialty Start Date End Date Ibeth Lassiter MD [address] [place] [address] PCP - General Family Medicine 12/16/21 10/01/24 Amber Marie FNP [address] [place] [address] PCP - General Family Medicine 10/02/24 10/08/24 Bailee Lewis MD [address] [place] [address] PCP - General Family Medicine 10/09/24 10/12/24 Ibeth Lassiter MD [address] [place] [address] [place] [address] PCP - General Family Medicine 10/13/24 11/13/24 Bailee Lewis MD [address] [place] [address] PCP - General Family Medicine 11/14/24 documented as of this encounter
--- OUTSIDE RECORDS SUMMARY | 2025-01-26 18:22 | XMS_ITS | Encounter Summary ---
Author Organization [employer] Address [address] [facility] 7t [place] [address] Care Team Providers Care Regional Marketing Director Name Role Phone Ibeth Lassiter MD Primary Care Provider [phone] Amber Marie Primary Care Provider [phone] Bailee Lewis MD Primary Care Provider [phone] Ibeth Lassiter MD Primary Care Provider [phone] Bailee Lewis MD Primary Care Provider [phone] Reason for Visit * Reason Onset Date Comments Appointment Request 05/08/2024 Encounter Details Date Type Department Care Team (Late st Contact Info) Description 05/08/2024 Telephone [facility] MEDICINE [address] [place] [address] Ibeth Lassiter MD [address] [place], [place] [phone] Appointment Request Social History Tobacco Use Types [...] EST Tc from pt requesting to reschedule DESIGN ENGINEERING SPECIALIST visit from 05/15 due to having a different appt at the sametime. Please contact pt at [phone]. documented in this encounter Plan of Treatment Upcoming Encounters Date Type Department Care Team (Late st Contact Info) Description 02/11/2025 2:30 PM EDT Clinical Support [facility] MEDICINE [address] [place] [address] Ena Grant RN 02/16/2025 11:00 AM EDT Office Visit [facility] MEDICINE [address] [place] [address] documented as of this encounter Visit Diagnoses Not on filedocumented in this encounter Additional Health Concerns Assessment Noted Time PHQ-9 Depression Total Score: 24 024 3:55 PM EDT documented as of this encounter Care Teams Regional Marketing Director Relationship Specialty Start Date End Date Ibeth Lassiter MD [address] [place] [address] PCP - General Family Medicine 12/16/21 10/01/24 Amber Marie FNP [address] [place] [address] PCP - General Family Medicine 10/02/24 10/08/24 Bailee Lewis MD [address] [place] [address] PCP - General Family Medicine 10/09/24 10/12/24 Ibeth Lassiter MD [address] [place] [address] PCP - General Family Medicine 10/13/24 11/13/24 Bailee Lewis MD [address] [place] [address] PCP - General Family Medicine 11/14/24 documented as of this encounter
--- OUTSIDE RECORDS SUMMARY | 2025-01-26 18:22 | XMS_ITS | Encounter Summary ---
Author Organization [employer] Address [address] [facility] 7t [place] [address] Care Team Providers Care Manager Of Digital Name Role Phone Bailee Lewis MD Primary Care Provider [phone] Reason for Visit * Reason Onset Date Comments Med Refill 01/11/2025 Encounter Details Date Type Department Care Team (Late st Contact Info) Description 01/11/[address] [facility] MEDICINE [address] [place], [place] [phone] Katt Woods MD [address] [place], [place] [phone] Chronic abdominal pain Social History Tobacco Use Types Packs/Day Years [...] Description 02/11/2025 2:30 PM EDT Clinical Support [address] [address] Ena Grant RN 02/16/2025 11:00 AM EDT Office Visit [facility] MEDICINE [address] [place] [address] documented as of this encounter Visit Diagnoses Diagnosis Chronic abdominal pain Abdominal pain, unspecified site documented in this encounter Additional Health Concerns Assessment Noted Time PHQ-9 Depression Total Score: 17 025 8:35 AM EDT documented as of this encounter Care Teams Manager Of Digital Relationship Specialty Start Date End Date Bailee Lewis MD [address] [place] [address] PCP - General Family Medicine 11/14/24 documented as of this encounter
--- OUTSIDE RECORDS SUMMARY | 2025-01-26 18:22 | XMS_ITS | Encounter Summary ---
Author Organization [facility] Address [address] [place] [address] [place] [address] Phone Care Team Providers Care Mailroom Manager Name Role Phone Ibeth Lassiter MD Primary Care Provider [phone] Reason for Visit * Reason Onset Date Comments Nalini / nick coord 11/26/2024 Encounter Details Date Type Department Care Team (Late st Contact Info) Description 11/26/2024 Telephone [facility] Medical Specialties [address] [place] [address] Arturo Gayle MD, PhD [address] [place] [address] [email or web address] Nalini / schedule coord Social History Tobacco Use Types Packs/Day Years [...] Orientation Bisexual 08/15/2024 3: 28 PM EDT documented as of this encounter Progress Notes * Edinson Moore - 11/26/2024 4:10 PM EDT Pt rescheduled virtual appt set for 11/27 because her MRI had to be rescheduled to a later date in December. Booked pt for 03/06 in-person appt, as Dr Gayle does not have virtual appts on his template. Pt requesting to switch 03/06 appt from in-person to virtual, as she lives in [place] and it is verydifficult for her to arrange transportation. # [phone] Thank you! 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, Access Center documented in this encounter Plan of Treatment Upcoming Encounters Date Type Department Care Team (Late st Contact Info) Description 03/06/2025 10:20 AM EDT Telemedicine [facility] at [address] [address] Arturo Gayle MD, PhD [address] [place] [address] [email or web address] documented as of this encounter Visit Diagnoses Not on filedocumented in this encounter Care Teams Mailroom Manager Relationship Specialty Start Date End Date Ibeth Lassiter MD [address] [place] [address] PCP - General Family Medicine 08/15/24 documented as of this encounter Additional Source Comments The information contained in this document represents components of the legal health record. It is not the complete legal health record.[facility]
--- OUTSIDE RECORDS SUMMARY | 2025-01-26 18:23 | XMS_ITS | Encounter Summary ---
Author Organization [email or web address] Address [address] [place] [address] 7t [place] [address] Care Team Providers Care Public Finance Specialist Name Role Phone Ibeth Lassiter MD Primary Care Provider [phone] Amber Marie Primary Care Provider [phone] Bailee Lewis MD Primary Care Provider [phone] Ibeth Lassiter MD Primary Care Provider [phone] Bailee Lewis MD Primary Care Provider [phone] Reason for Visit * Reason Onset Date Comments Med Refill 12/14/2023 Encounter Details Date Type Department Care Team (Late st Contact Info) Description 12/14/2023 Refill [facility] CHC MED & PEDS [address] [place], [place] [phone] Ibeth Lassiter MD [address] [place], [place] [phone] Acute necrotizing pancreatitis Social History Tobacco Use [...] the past 12 months, has t he [employer], gas, oil or water company threatened to [...] Description 02/11/2025 2:30 PM EDT Clinical Support [facility] MEDICINE [address] [place] [address] Ena Grant RN 02/16/2025 11:00 AM EDT Office Visit [facility] MEDICINE [address] [place] [address] documented as of this encounter Visit Diagnoses Diagnosis Acute necrotizing pancreatitis Acute pancreatitis documented in this encounter Additional Health Concerns Assessment Noted Time PHQ-9 Depression Total Score: 24 024 3:55 PM EDT documented as of this encounter Care Teams Public Finance Specialist Relationship Specialty Start Date End Date Ibeth Lassiter MD [address] [place] [address] PCP - General Family Medicine 12/16/21 10/01/24 Amber Marie FNP [address] [place] [address] PCP - General Family Medicine 10/02/24 10/08/24 Bailee Lewis MD [address] [place] [address] PCP - General Family Medicine 10/09/24 10/12/24 Ibeth Lassiter MD [address] [place] [address] PCP - General Family Medicine 10/13/24 11/13/24 Bailee Lewis MD [address] [place] [address] PCP - General Family Medicine 11/14/24 documented as of this encounter
--- OUTSIDE RECORDS SUMMARY | 2025-01-26 18:23 | XMS_ITS | Encounter Summary ---
Author Organization [employer] Address [address] [place] [address] 7 [place] [address] Care Team Providers Care Cup Trimming Machine Operator Name Role Phone Bailee Lewis MD Primary Care Provider [phone] Reason for Visit * Reason Onset Date Comments Med Refill 12/04/2024 Encounter Details Date Type Department Care Team (Late st Contact Info) Description 12/04/2024 Telephone [facility] MEDICINE [address] [place], [place] [phone] Bailee Lewis MD [address] [place], [place] [phone] Med Refill Social History Tobacco Use Types [...] Answer Date Recorded Patient Health Questionnaire-9 Score 16 11/14/2024 Patient Health Questionnaire-9 Score 16 11/14/2024 Last PHQ-9: Questionnaire Data Not on file 0 11/14/2024 Housing Stability Answer Date Recorded What is your housing situation today? 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 Medications needing refill : pregabalin (Lyrica) 300 MG capsule To be sent to: [id number] - [place], [place] - [address] [facility] documented in this encounter Plan of Treatment Upcoming Encounters Date Type Department Care Team ([facility] st Contact Info) Description 02/11/2025 2:30 PM EDT Clinical Support [address] [address] Ena Grant RN 02/16/2025 11:00 AM EDT Office Visit [facility] MEDICINE [address] [place] [address] documented as of this encounter Visit Diagnoses Not on filedocumented in this encounter Additional Health Concerns Assessment Noted Time PHQ-9 Depression Total Score: 16 025 9:43 AM EDT documented as of this encounter Care Teams Cup Trimming Machine Operator Relationship Specialty Start Date End Date Bailee Lewis MD [address] [place] [address] PCP - General Family Medicine 11/14/24 documented as of this encounter
--- OUTSIDE RECORDS SUMMARY | 2025-01-26 18:23 | XMS_ITS | Encounter Summary ---
Author Organization [employer] Address [address] [place] [address] 7 [place] [address] Care Team Providers Care Manufacturing Executive Name Role Phone Ibeth Lassiter MD Primary Care Provider [phone] Amber Marie Primary Care Provider [phone] Bailee Lewis MD Primary Care Provider [phone] Ibeth Lassiter MD Primary Care Provider [phone] Bailee Lewis MD Primary Care Provider [phone] Reason for Visit * Reason Comments Med Refill Encounter Details Date Type Department Care Team ([facility] st Contact Info) Description 12/14/2023 Refill [facility] CHC MED & PEDS [address] [place], [place] [phone] Ibeth Lassiter MD [address] [place], [place] [phone] Mood disorder (CMS/HCC) Social History Tobacco Use [...] the past 12 months, has t he [employer], gas, oil or water company threatened to [...] Description 02/11/2025 2:30 PM EDT Clinical Support [facility] MEDICINE [address] [place] [address] Ena Grant RN 02/16/2025 11:00 AM EDT Office Visit [facility] MEDICINE [address] [place] [address] documented as of this encounter Visit Diagnoses Diagnosis Mood disorder (CMS/HCC) Unspecified episodic mood disorder documented in this encounter Additional Health Concerns Assessment Noted Time PHQ-9 Depression Total Score: 24 024 3:55 PM EDT documented as of this encounter Care Teams Manufacturing Executive Relationship Specialty Start Date End Date Ibeth Lassiter MD [address] [place] [address] PCP - General Family Medicine 12/16/21 10/01/24 Amber Marie FNP [address] [place] [address] PCP - General Family Medicine 10/02/24 10/08/24 Bailee Lewis MD [address] [place] [address] PCP - General Family Medicine 10/09/24 10/12/24 Ibeth Lassiter MD [address] [place] [address] PCP - General Family Medicine 10/13/24 11/13/24 Bailee Lewis MD [address] [place] [address] PCP - General Family Medicine 11/14/24 documented as of this encounter
--- OUTSIDE RECORDS SUMMARY | 2025-01-26 18:23 | XMS_ITS | Encounter Summary ---
Author Organization [employer] Address [address] [place] [address] 7 [place] [address] Care Team Providers Care Hair And Makeup Designer Name Role Phone Ibeth Lassiter MD Primary Care Provider [phone] Amber Marie Primary Care Provider [phone] Bailee Lewis MD Primary Care Provider [phone] Ibeth Lassiter MD Primary Care Provider [phone] Bailee Lewis MD Primary Care Provider [phone] Reason for Visit * Reason Onset Date Comments Call Back Request 11/06/2023 Encounter Details Date Type Department Care Team ([facility] st Contact Info) Description 11/06/2023 Telephone [facility] CHC MED & PEDS [address] [place], [place] [phone] Ibeth Lassiter MD 505 [place], [place] [phone] Call Back Request Social History Tobacco Use [...] the past 12 months, has t he [employer], gas, oil or water [employer] threatened to shut off services in your [...] PM EST documented as of this encounter Functional Status * Over the past 2 weeks, how often have you been bothered by any of the following problems? Question Answer Date of Assessment Author Patient Health Questionnaire -2 Score 6 11/08/2023 3:55 PM RAFITAT Ibeth Lassiter MD * Over the past 2 weeks, how often have you been bothered by any of the following problems? Question Answer Date of Assessment Author Little interest or pleasure in doing things Nearly every day 11/08/2023 3:55 PM Ibeth Coello MD Feeling down, depressed, or hopeless Nearly every day 11/08/2023 3:55 PM Ibeth Coello MD Trouble falling or staying asleep, or sleeping too much Nearly every day 11/08/2023 3:55 PM Ibeth Coello MD Feeling tired or having little energy Nearly every day 11/08/2023 3:55 PM Ibeth Coello MD Poor appetite or overeating Nearly every day 11/08/2023 3:55 PM Ibeth Coello MD Feeling bad about yourself - or that you are a failure or have let yourself or your family down Nearly every day 11/08/2023 3:55 PM EDT Ibeth Lassiter MD Trouble concentrating on things, such as reading the newspaper or watching television Nearly every day 11/08/2023 3:55 PM EDT Ibeth Lassiter MD Moving or speaking so slowly that other people could have noticed? Or the opposite - being so fidgety or restless that you have been moving around a lot more than usual. Nearly every day 11/08/2023 3:55 PM EDT Ibeth Lassiter MD Thoughts that you would be better off or hurting yourself in some way Not at all 11/08/2023 3:55 PM EDT Ibeth Lassiter MD Patient Health Questionnaire-9 Score 24 11/08/2023 3:55 PM EDT Josselyn Lassiter MD documented as of this encounter Miscellaneous Notes [...] to discuss removal. Please contact pt at [phone] documented in this encounter Plan of Treatment Upcoming Encounters Date Type Department Care Team (Late st Contact Info) Description 02/11/2025 2:30 PM EDT Clinical Support [address] [address] Ena Grant RN 02/16/2025 11:00 AM EDT Office Visit [facility] MEDICINE [address] [place] [address] documented as of this encounter Visit Diagnoses Not on filedocumented in this encounter Additional Health Concerns Assessment Noted Time PHQ-9 Depression Total Score: 14 023 10:26 AM EDT documented as of this encounter Care Teams Hair And Makeup Designer Relationship Specialty Start Date End Date Ibeth Lassiter MD 230 [place] [address] PCP - General Family Medicine 12/16/21 10/01/24 Amber Marie FNP [address] [place] [address] PCP - General Family Medicine 10/02/24 10/08/24 Bailee Lewis MD [address] [place] [address] PCP - General Family Medicine 10/09/24 10/12/24 Ibeth Lassiter MD [address] [place] [address] PCP - General Family Medicine 10/13/24 11/13/24 Bailee Lewis MD [address] [place] [address] PCP - General Family Medicine 11/14/24 documented as of this encounter
--- OUTSIDE RECORDS SUMMARY | 2025-01-26 18:23 | XMS_ITS | Encounter Summary ---
Author Organization [employer] Address [address] [place] [address] 7 [place] [address] Care Team Providers Care Senior Software Test Engineer Name Role Phone Ibeth Lassiter MD Primary Care Provider [phone] Amber Marie Primary Care Provider [phone] Bailee Lewis MD Primary Care Provider [phone] Ibeth Lassiter MD Primary Care Provider [phone] Bailee Lewis MD Primary Care Provider [phone] Reason for Visit * Reason Onset Date Comments Med Refill 10/22/2023 Encounter Details Date Type Department Care Team (Late st Contact Info) Description 10/22/2023 Refill [facility] CHC MED & PEDS 505 [place], [place] [phone] Solis Taylor MD 505 [place], [place] [phone] Acute necrotizing pancreatitis Social History Tobacco Use [...] with others, in a hotel, in a long term, living outside on the street, on a [...] Description 02/11/2025 2:30 PM EDT Clinical Support [facility] MEDICINE [address] [place] [address] Ena Grant RN 02/16/2025 11:00 AM EDT Office Visit [facility] [address] [place] [address] documented as of this encounter Visit Diagnoses Diagnosis Acute necrotizing pancreatitis Acute pancreatitis documented in this encounter Additional Health Concerns Assessment Noted Time PHQ-9 Depression Total Score: 14 023 10:26 AM EDT documented as of this encounter Care Teams Senior Software Test Engineer Relationship Specialty Start Date End Date Ibeth Lassiter MD [address] [place] [address] PCP - General Family Medicine 12/16/21 10/01/24 Amber Marie FNP [address] [place] [address] PCP - General Family Medicine 10/02/24 10/08/24 Bailee Lewis MD [address] [place] [address] PCP - General Family Medicine 10/09/24 10/12/24 Ibeth Lassiter MD [address] [place] [address] PCP - General Family Medicine 10/13/24 11/13/24 Bailee Lewis MD [address] [place] [address] PCP - General Family Medicine 11/14/24 documented as of this encounter
--- OUTSIDE RECORDS SUMMARY | 2025-01-26 18:23 | XMS_ITS | Encounter Summary ---
Author Organization [employer] Address 75 [facility] 7t [place] [address] Care Team Providers Care Furnace Builder Name Role Phone Bailee Lewis MD Primary Care Provider [phone] Encounter Details Date Type Department Care Team (Late st Contact Info) Description 12/04/2024 Orders Only [facility] MEDICINE 230 [place], [place] [phone] Katt Woods MD 230 [place], [place] [phone] Chronic abdominal pain Social History Tobacco Use [...] with others, in a hotel, in a jail, living outside on the street, on a [...] Description 02/11/2025 2:30 PM EDT Clinical Support [facility] MEDICINE [address] [place] [address] Ena Grant RN 02/16/2025 11:00 AM EDT Office Visit [facility]INE [address] [place] [address] documented as of this encounter Visit Diagnoses Diagnosis Chronic abdominal pain Abdominal pain, unspecified site documented in this encounter Additional Health Concerns Assessment Noted Time PHQ-9 Depression Total Score: 16 025 9:43 AM EDT documented as of this encounter Care Teams Furnace Builder Relationship Specialty Start Date End Date Bailee Lewis MD 230 [place] [address] PCP - General Family Medicine 11/14/24 documented as of this encounter
--- OUTSIDE RECORDS SUMMARY | 2025-01-26 18:23 | XMS_ITS | Encounter Summary ---
Author Organization [employer] Address 75 [facility] 7 [place] [address] Care Team Providers Care Employee Relation Manager Name Role Phone Ibeth Lassiter MD Primary Care Provider [phone] Amber Marie Primary Care Provider [phone] Bailee Lewis MD Primary Care Provider [phone] Ibeth Lassiter MD Primary Care Provider [phone] Bailee Lewis MD Primary Care Provider [phone] Reason for Visit * Reason Onset Date Comments Med Refill 11/05/2023 Encounter Details Date Type Department Care Team (Late st Contact Info) Description 11/05/2023 Telephone [facility] MEDICINE 230 [place] [address] Ibeth Lassiter MD [address] [place], [place] [phone] Med Refill Social History Tobacco Use Types [...] the past 12 months, has t he [employer], gas, oil or water [employer] threatened to shut off services in your [...] 50 MG capsule To be sent to: [id number] - [place] [address] AT [facility] documented in this encounter Plan of Treatment Upcoming Encounters Date Type Department Care Team ([facility] st Contact Info) Description 02/11/2025 2:30 PM EDT Clinical Support [address] [address] Ena Grant RN 02/16/2025 11:00 AM EDT Office Visit [facility] MED[facility]INE [address] [place] [address] documented as of this encounter Visit Diagnoses Not on filedocumented in this encounter Additional Health Concerns Assessment Noted Time PHQ-9 Depression Total Score: 14 023 10:26 AM EDT documented as of this encounter Care Teams Employee Relation Manager Relationship Specialty Start Date End Date Ibeth Lassiter MD 230 [place] [address] PCP - General Family Medicine 12/16/21 10/01/24 Amber Marie FNP [address] [place] [address] PCP - General Family Medicine 10/02/24 10/08/24 Bailee Lewis MD 230 [place] [address] PCP - General Family Medicine 10/09/24 10/12/24 Ibeth Lassiter MD [address] [place] [address] PCP - General Family Medicine 10/13/24 11/13/24 Bailee Lewis MD 230 [place] [address] PCP - General Family Medicine 11/14/24 documented as of this encounter
--- OUTSIDE RECORDS SUMMARY | 2025-01-26 18:23 | XMS_ITS | Encounter Summary ---
Author Organization [employer] Address [address] [place] [address] 7t [place] [address] Care Team Providers Care Floral Manager Name Role Phone Bailee Lewis MD Primary Care Provider [phone] Reason for Visit * Reason Onset Date Comments Med Refill 01/21/2025 SMT MACHINE OPERATOR Agreement renewed today 01/21/2025 Encounter Details Date Type Department Care Team (Late st Contact Info) Description 01/21/2025 Refill [facility] MEDICINE 230 [place] [address] Ena Grant RN Chronic pancreatitis, unspecified pancreatitis type (CMS/HCC) (Primary [...] with others, in a hotel, in a intermediate, living outside on the street, on a [...] Telephone Encounter - Ena Grant RN - 01/21/2025 12:28 PM EDT Pt had SMT MACHINE OPERATOR Renewal appt today Reports pain is better controlled with the increase in Butrans patch dosing- last changed 01/20/25. She's using between 6-8 Hydrocodone a day, count today was 55, expected 46. She reports she has had no ER visits for pain since last SMT MACHINE OPERATOR appt on 01/14/25. BPI completed on: 01/21/2025 , pain severity score: 8, activity interference score: 8 BPI completed on: 02/06/2024 , pain severity score: 8, activity interference score: 7 documented in this encounter Plan of Treatment Upcoming Encounters Date Type Department Care Team (Late st Contact Info) Description 02/11/2025 2:30 PM EDT Clinical Support [address] [address] Ena Grant RN 02/16/2025 11:00 AM EDT Office Visit [address] [address] documented as of this encounter Visit Diagnoses Diagnosis Chronic pancreatitis, unspecified pancreatitis type (CMS/HCC)- Primary documented in this encounter Additional Health Concerns Assessment Noted Time PHQ-9 Depression Total Score: 17 025 8:35 AM EDT documented as of this encounter Care Teams Floral Manager Relationship Specialty Start Date End Date Bailee Lewis MD [address] [place] [address] PCP - General Family Medicine 11/14/24 documented as of this encounter
--- OUTSIDE RECORDS SUMMARY | 2025-01-26 18:23 | XMS_ITS | Encounter Summary ---
Author Organization [employer] Address [address] [place] [address] 7 [place] [address] Care Team Providers Care Director Medical Safety Name Role Phone Bailee Lewis MD Primary Care Provider [phone] Reason for Visit * Reason Onset Date Comments Med Refill 01/23/2025 Encounter Details Date Type Department Care Team (Late st Contact Info) Description 01/23/2025 Refill [facility] MEDICINE 230 [place], [place] [phone] Bailee Lewis MD 230 [place], [place] [phone] Alcohol-induced chronic pancreatitis (CMS/HCC) Social History Tobacco [...] Telephone Encounter - Ena Grant RN - 01/23/2025 12:06 PM EDT TC to patient, reviewed with patient plan for patient to come to either Sunday chronic pain group or her weekly appt with FURRIER APPRENTICE for her refills. Pt requested to be scheduled for chronic pain group 01/26/25 @ 11am. documented in this encounter Plan of Treatment Upcoming Encounters Date Type Department Care Team (Late st Contact Info) Description 02/11/2025 2:30 PM EDT Clinical Support [address] [address] Ena Grant RN 02/16/2025 11:00 AM EDT Office Visit [address] [address] documented as of this encounter Visit Diagnoses Diagnosis Alcohol-induced chronic pancreatitis (CMS/HCC) Chronic pancreatitis documented in this encounter Additional Health Concerns Assessment Noted Time PHQ-9 Depression Total Score: 17 025 8:35 AM EDT documented as of this encounter Care Teams Director Medical Safety Relationship Specialty Start Date End Date Bailee Lewis MD [address] [place] [address] PCP - General Family Medicine 11/14/24 documented as of this encounter
--- OUTSIDE RECORDS SUMMARY | 2025-01-26 18:23 | XMS_ITS | Encounter Summary ---
Author Organization [employer] Address 75 [facility] 7t [place] [address] Care Team Providers Care Draftsperson Name Role Phone Bailee Lewis MD Primary Care Provider [phone] Encounter Details Date Type Department Care Team (Latest Contact Info) Description 01/21/2025 Travel Social History Tobacco Use Types Packs/Day [...] with others, in a hotel, in a [place] [facility], living outside on the street, on a [...] Description 02/11/2025 2:30 PM EDT Clinical Support [facility] MEDICINE 230 [place] [address] Ena Grant RN 02/16/2025 11:00 AM EDT Office Visit [facility] MEDICINE 230 [place] [address] documented as of this encounter Visit Diagnoses Not on filedocumented in this encounter Additional Health Concerns Assessment Noted Time PHQ-9 Depression Total Score: 17 025 8:35 AM EDT documented as of this encounter Care Teams Draftsperson Relationship Specialty Start Date End Date Bailee Lewis MD 230 [place] [address] PCP - General Family Medicine 11/14/24 documented as of this encounter
--- OUTSIDE RECORDS SUMMARY | 2025-01-26 18:23 | XMS_ITS | Encounter Summary ---
Author Organization [employer] Address 75 [facility] 7 [place] [address] Care Team Providers Care Newspaper Clipper Name Role Phone Ibeth Lassiter MD Primary Care Provider [phone] Amber Marie Primary Care Provider [phone] Bailee Lewis MD Primary Care Provider [phone] Ibeth Lassiter MD Primary Care Provider [phone] Bailee Lewsi MD Primary Care Provider [phone] Reason for Visit * Reason Onset Date Comments PT-1 08/06/2024 Encounter Details Date Type Department Care Team (Late st Contact Info) Description 08/06/2024 Telephone [facility] MEDICINE 230 [place] [address] Ibeth Lassiter MD [address] [place], [place] [phone] PT-1 Social History Tobacco Use Types Packs/Day [...] Y/N: Yes Provider name or facility name: [address] [place] [address] Escort needed: Y/N: No Do you have a wheelchair: Y/N: No If yes- Manual or electric: Visits: (2 x Monthly) Pt has Apt on 08/08/24. Patient calling requesting PT1 Home Address verified: Y/N: Yes Provider name or facility name: [address] [place] [address] Escort needed: Y/N: No Do you have a wheelchair: Y/N: No If yes- Manual or electric: Visits: (3 x Monthly) documented in this encounter Plan of Treatment Upcoming Encounters Date Type Department Care Team ([facility] st Contact Info) Description 02/11/2025 2:30 PM EDT Clinical Support [address] [address] Ena Grant RN 02/16/2025 11:00 AM EDT Office Visit [address] [address] documented as of this encounter Visit Diagnoses Not on filedocumented in this encounter Additional Health Concerns Assessment Noted Time PHQ-9 Depression Total Score: 22 025 10:04 AM EST documented as of this encounter Care Teams Newspaper Clipper Relationship Specialty Start Date End Date Ibeth Lassiter MD 230 [place] [address] PCP - General Family Medicine 12/16/21 10/01/24 Amber Marie FNP [address] [place] [address] PCP - General Family Medicine 10/02/24 10/08/24 Bailee Lewis MD 230 [place] [address] PCP - General Family Medicine 10/09/24 10/12/24 Ibeth Lassiter MD [address] [place] [address] PCP - General Family Medicine 10/13/24 11/13/24 Bailee Lewis MD [address] [place] [address] PCP - General Family Medicine 11/14/24 documented as of this encounter
--- OUTSIDE RECORDS SUMMARY | 2025-01-26 18:23 | XMS_ITS | Clinical Summary ---
Author Organization [facility] Address [address] [place] [address] Care Team Providers Care Cloth Folder Machine Name Role Phone Unavailable Primary Care Provider [...] Care Team (Late st Contact Info) Description 02/24/2025 10:00 AM EDT Behavioral Health Visit [facility] [address] [place] [address] BRENT BERMUDEZ [phone] Tomi Dinh, HNP [address] [place] [phone] Health Maintenance Due Date Last Done Comments Anxiety Screening 1995 HPV Screening 1995 Hepatitis C Screening 1995 Pap + HPV 1995 Tobacco Screening 1995 Relationship Safety Screening/Counseling 2010 Hypertension Screening (#1) 2013 Cervical Cancer Screening 2016 Pap Smear 2016 [id number] ( season) 2024 Alcohol and Drug Screen [...]
--- OUTSIDE RECORDS SUMMARY | 2025-01-26 18:23 | XMS_ITS | Encounter Summary ---
Author Organization [facility] Address [address] [place] [address] Phone Care Team Providers Care Technical Support Professional Name Role Phone Ibeth Lassiter MD Primary Care Provider [phone] Encounter Details Date Type Department Care Team (Late st Contact Info) Description 01/26/2025 Ancillary Orders [facility] [address] [place] [address] Arturo Gayle MD, PhD [address] [place] [address] [email or web address] Social History Tobacco Use Types Packs/Day Years [...] Info) Description 03/06/2025 10:20 AM EDT Telemedicine [facility] [place] [address] [place] [address] Arturo Gayle MD, PhD [address] [place] [address] [email or web address] documented as of this encounter Results * CT Abdomen Outside (No Interpretation) (12/09/2024 12:00 AM EDT) Narrative [place] - 01/26/2025 9:27 AM EDT This study is for PACS storage only and not for interpretation. us Arturo Gayle MD, PhD IMG OU TSIDE IMAGING W/OUT INTERPRETATION Final Result [facility] documented in this encounter Visit Diagnoses Not on filedocumented in this encounter Care Teams Technical Support Professional Relationship Specialty Start Date End Date Ibeth Lassiter MD [address] [place] [address] PCP - General Family Medicine 08/15/24 documented as of this encounter Additional Source Comments The information contained in this document represents components of the legal health record. It is not the complete legal health record.[facility]
--- OUTSIDE RECORDS SUMMARY | 2025-01-26 18:23 | XMS_ITS | Encounter Summary ---
Author Organization [employer] Address [address] [place] [address] 7t [place] [address] Care Team Providers Care Cake Press Operator Name Role Phone Ibeth Lassiter MD Primary Care Provider [phone] Amber Marie Primary Care Provider [phone] Bailee Lewis MD Primary Care Provider [phone] Ibeth Lassiter MD Primary Care Provider [phone] Bailee Lewis MD Primary Care Provider [phone] Reason for Visit * Reason Onset Date Comments Med Refill 11/02/2023 Encounter Details Date Type Department Care Team (Late st Contact Info) Description 11/02/2023 Refill [facility] CHC MED & PEDS 505 [place], [place] [phone] Ibeth Lassiter MD 505 [place], [place] [phone] Acute necrotizing pancreatitis Social History Tobacco Use [...] Description 02/11/2025 2:30 PM EDT Clinical Support [address] [address] Ena Grant RN 02/16/2025 11:00 AM EDT Office Visit [address] [address] documented as of this encounter Visit Diagnoses Diagnosis Acute necrotizing pancreatitis Acute pancreatitis documented in this encounter Additional Health Concerns Assessment Noted Time PHQ-9 Depression Total Score: 14 023 10:26 AM EDT documented as of this encounter Care Teams Cake Press Operator Relationship Specialty Start Date End Date Ibeth Lassiter MD [address] [place] [address] PCP - General Family Medicine 12/16/21 10/01/24 Amber Marie FNP [address] [place] [address] PCP - General Family Medicine 10/02/24 10/08/24 Bailee Lewis MD 230 [place] [address] PCP - General Family Medicine 10/09/24 10/12/24 Ibeth Lassiter MD [address] [place] [address] PCP - General Family Medicine 10/13/24 11/13/24 Bailee Lewis MD [address] [place] [address] PCP - General Family Medicine 11/14/24 documented as of this encounter
--- OUTSIDE RECORDS SUMMARY | 2025-01-26 18:23 | XMS_ITS | Encounter Summary ---
Author Organization [employer] Address [address] [place] [address] 7t [place] [address] Care Team Providers Care Back End Developer Name Role Phone Ibeht Lassiter MD Primary Care Provider [phone] Amber Marie Primary Care Provider [phone] Bailee Lewis MD Primary Care Provider [phone] Ibeth Lassiter MD Primary Care Provider [phone] Bailee Lewis MD Primary Care Provider [phone] Reason for Visit * Reason Onset Date Comments Med Refill 02/15/2024 Encounter Details Date Type Department Care Team (Late st Contact Info) Description 02/15/2024 Refill [facility] MED & PEDS 505 [place], [place] [phone] Ibeth Lassiter MD 505 [place], [place] [phone] Acute necrotizing pancreatitis Social History Tobacco Use [...] t he electric, gas, oil or water [employer] threatened to shut off services in your [...] Description 02/11/2025 2:30 PM EDT Clinical Support [address] [address] Ena Grant RN 02/16/2025 11:00 AM EDT Office Visit [facility] 230 [place] [address] documented as of this encounter Visit Diagnoses Diagnosis Acute necrotizing pancreatitis Acute pancreatitis documented in this encounter Additional Health Concerns Assessment Noted Time PHQ-9 Depression Total Score: 24 024 3:55 PM EDT documented as of this encounter Care Teams Back End Developer Relationship Specialty Start Date End Date Ibeth Lassiter MD 230 [place] [address] PCP - General Family Medicine 12/16/21 10/01/24 Amber Marie FNP [address] [place] [address] PCP - General Family Medicine 10/02/24 10/08/24 Bailee Lewis MD 230 [place] [address] PCP - General Family Medicine 10/09/24 10/12/24 Ibeth Lassiter MD [address] [place] [address] PCP - General Family Medicine 10/13/24 11/13/24 Bailee Lewis MD [address] [place] [address] PCP - General Family Medicine 11/14/24 documented as of this encounter
--- OUTSIDE RECORDS SUMMARY | 2025-01-26 18:23 | XMS_ITS | Clinical Summary ---
Author Organization [facility] Address [address] [place] [address] Care Team Providers Care Non Garment Sewing Machine Operator Name Role Phone Ibeth Lassiter MD Primary Care Provider [phone] Allergies Active Allergy Reactions Criticality Noted Date [...] pur e alcohol) 10-12 nips per day [facility] Utilities Answer Date Recorded In the past 12 months has [employer], gas, oil, or water [employer] threatened to shut off services in your [...] place to sleep or slept in a prison (including now)? No 09/08/2023 Comments Unknown Sex [...] patient's age to complete this topic Insurance [employer] Advance Directives * Full Code (Latest Code Status on File) Date Activated Date Inactivated Comments 09/08/2023 12:13 AM Care Teams Non Garment Sewing Machine Operator Relationship Specialty Start Date End Date Ibeth Lassiter MD [address] [place] [address] [phone] PCP - General Family Medicine 09/07/23
--- OUTSIDE RECORDS SUMMARY | 2025-01-26 18:23 | XMS_ITS | Encounter Summary ---
Author Organization [employer] Address [address] [place] [address] 7 [place] [address] Care Team Providers Care Night Baker Name Role Phone Bailee Lewis MD Primary Care Provider [phone] Reason for Visit * Reason Onset Date Comments P/U date of Butrans patches 01/14/2025 Encounter Details Date Type Department Care Team (Latest Contact Info) Description 01/14/2025 Results Follow-Up [facility] MEDICINE [address] [place], [place] [phone] Bailee Lewis MD 230 [place] [address] CBC auto differential, Comprehensive Metabolic Panel, Lipase Social History Tobacco Use Types Packs/Day Years [...] with others, in a hotel, in a senior living, living outside on the street, on a [...] Telephone Encounter - Ena Grant RN - 01/14/2025 9:38 AM EDT TC to [facility], spoke with Shobha, confirmed that patient did olive picker Butrans patches - quantity of 4 on 01/13/25. RX was not listed in [facility]. * Result Encounter Note - Bailee Lewis MD - 01/14/2025 6:36 AM EDT Please call and see if she is coming to her appointment today documented in this encounter Plan of Treatment Upcoming Encounters Date Type Department Care Team (Late st Contact Info) Description 02/11/2025 2:30 PM EDT Clinical Support [address] [address] Ena Grant RN 02/16/2025 11:00 AM EDT Office Visit [address] [address] documented as of this encounter Visit Diagnoses Not on filedocumented in this encounter Additional Health Concerns Assessment Noted Time PHQ-9 Depression Total Score: 17 025 8:35 AM EDT documented as of this encounter Care Teams Night Baker Relationship Specialty Start Date End Date Bailee Lewis MD [address] [place] [address] PCP - General Family Medicine 11/14/24 documented as of this encounter
--- OUTSIDE RECORDS SUMMARY | 2025-01-26 18:23 | XMS_ITS | Encounter Summary ---
Author Organization [employer] Address [address] [facility] 7 [place] [address] Care Team Providers Care Punch Machine Operator Name Role Phone Ibeth Lassiter MD Primary Care Provider [phone] Amber Marie Primary Care Provider [phone] Bailee Lewis MD Primary Care Provider [phone] Ibeth Lassiter MD Primary Care Provider [phone] Bailee Lewis MD Primary Care Provider [phone] Reason for Visit * Reason Onset Date Comments Med Refill 01/01/2024 Encounter Details Date Type Department Care Team (Late st Contact Info) Description 01/01/2024 Telephone [facility] MEDICINE [address] [place] [address] Ibeth Lassiter MD [address] [place], [place] [phone] Med Refill Social History Tobacco Use Types [...] the past 12 months, has t he [employer], gas, oil or water company threatened to [...] information. Pt is advised to come to [facility] in [facility] today or tomorrow if needed. Hours [...] pain medicine - You become worse From: Deepti Aguilar Sent: 01/12/2024 9:34 PM EDT To: [facility] Subject: Appointment Request Appointment Request From: Deepti Aguilar With Provider: Ibeth Lassiter MD [[facility] CHC MED & PEDS] Preferred Date Range: [...] 30 MG tablet To be sent to: [facility] [address] [place] [address] documented in this encounter Plan of Treatment Upcoming Encounters Date Type Department Care Team (Late st Contact Info) Description 02/11/2025 2:30 PM EDT Clinical Support [facility] MEDICINE [address] [place] [address] Ena Grant RN 02/16/2025 11:00 AM EDT Office Visit [address] [address] documented as of this encounter Visit Diagnoses Not on filedocumented in this encounter Additional Health Concerns Assessment Noted Time PHQ-9 Depression Total Score: 24 024 3:55 PM EDT documented as of this encounter Care Teams Punch Machine Operator Relationship Specialty Start Date End Date Ibeth Lassiter MD 230 [place] [address] PCP - General Family Medicine 12/16/21 10/01/24 Amber Marie FNP 230 [place] [address] PCP - General Family Medicine 10/02/24 10/08/24 Bailee Lewis MD [address] [place] [address] PCP - General Family Medicine 10/09/24 10/12/24 Ibeth Lassiter MD [address] [place] [address] PCP - General Family Medicine 10/13/24 11/13/24 Bailee Lewis MD [address] [place] [address] PCP - General Family Medicine 11/14/24 documented as of this encounter
--- OUTSIDE RECORDS SUMMARY | 2025-01-26 18:23 | XMS_ITS | Encounter Summary ---
Author Organization [employer] Address [address] [place] [address] 7 [place] [address] Care Team Providers Care Caisson Worker Name Role Phone Ibeth Lassiter MD Primary Care Provider [phone] Amber Marie Primary Care Provider [phone] Bailee Lewis MD Primary Care Provider [phone] Ibeth Lassiter MD Primary Care Provider [phone] Bailee Lewis MD Primary Care Provider [phone] Reason for Visit * Reason Comments Med Refill Encounter Details Date Type Department Care Team ([facility] st Contact Info) Description 08/11/2024 Refill [facility] CHC MED & PEDS [address] [place], [place] [phone] Ibeth Lassiter MD 505 [place], [place] [phone] Social History Tobacco Use Types Packs/Day Years [...] Description 02/11/2025 2:30 PM EDT Clinical Support [facility] MEDICINE [address] [place] [address] Ena Grant RN 02/16/2025 11:00 AM EDT Office Visit [facility] MEDICINE [address] [place] [address] documented as of this encounter Visit Diagnoses Not on filedocumented in this encounter Additional Health Concerns Assessment Noted Time PHQ-9 Depression Total Score: 22 025 10:04 AM EST documented as of this encounter Care Teams Caisson Worker Relationship Specialty Start Date End Date Ibeth Lassiter MD [address] [place] [address] PCP - General Family Medicine 12/16/21 10/01/24 Amber Marie FNP [address] [place] [address] [place] [address] PCP - General Family Medicine 10/02/24 10/08/24 Bailee Lewis MD 230 [place] [address] PCP - General Family Medicine 10/09/24 10/12/24 Ibeth Lassiter MD [address] [place] [address] PCP - General Family Medicine 10/13/24 11/13/24 Bailee Lewis MD [address] [place] [address] PCP - General Family Medicine 11/14/24 documented as of this encounter
--- OUTSIDE RECORDS SUMMARY | 2025-01-26 18:23 | XMS_ITS | Encounter Summary ---
Author Organization [employer] Address [address] [place] [address] 7t [place] [address] Care Team Providers Care Diabetes Trainer Name Role Phone Ibeth Lassiter MD Primary Care Provider [phone] Amber Marie Primary Care Provider [phone] Bailee Lewis MD Primary Care Provider [phone] Ibeth Lassiter MD Primary Care Provider [phone] Bailee Lewis MD Primary Care Provider [phone] Reason for Visit * Reason Onset Date Comments Med Refill 11/05/2023 Encounter Details Date Type Department Care Team (Late st Contact Info) Description 11/05/2023 Refill [facility] CHC MED & PEDS [address] [place], [place] [phone] Ibeth Lassiter MD 505 [place], [place] [phone] Anxiety Social History Tobacco Use Types Packs/Day [...] the past 12 months, has t he [facility], gas, oil or water company threatened to [...] Lassiter MD documented as of this encounter Plan of Treatment Upcoming Encounters Date Type Department Care Team (Late [facility]) Description 02/11/2025 2:30 PM EDT Clinical Support [address] [address] Ena Grant RN 02/16/2025 11:00 AM EDT Office Visit [address] [address] documented as of this encounter Visit Diagnoses Diagnosis Anxiety Anxiety state, unspecified documented in this encounter Additional Health Concerns Assessment Noted Time PHQ-9 Depression Total Score: 14 023 10:26 AM EDT documented as of this encounter Care Teams Diabetes Trainer Relationship Specialty Start Date End Date Ibeth Lassiter MD [address] [place] [address] PCP - General Family Medicine 12/16/21 10/01/24 Amber Marie FNP [address] [place] [address] PCP - General Family Medicine 10/02/24 10/08/24 Bailee Lewis MD [address] [place] [address] PCP - General Family Medicine 10/09/24 10/12/24 Ibeth Lassiter MD [address] [place] [address] PCP - General Family Medicine 10/13/24 11/13/24 Bailee Lewis MD 230 [place] [address] PCP - General Family Medicine 11/14/24 documented as of this encounter
--- OUTSIDE RECORDS SUMMARY | 2025-01-26 18:24 | XMS_ITS | Encounter Summary ---
Author Organization [facility] Address [address] [place] [address] Phone Care Team Providers Care Prune Washer Name Role Phone Ibeth Lassiter MD Primary Care Provider [phone] Encounter Details Date Type Department Care Team (Late st Contact Info) Description 01/26/2025 Ancillary Orders [facility] [address] [place] [address] Arturo Gayle MD, PhD [address] [place] [phone] [email or web address] Social History Tobacco Use Types [...] Info) Description 03/06/2025 10:20 AM EDT Telemedicine [facility] [place] [address] [place] [address] Arturo Gayle MD, PhD [address] [place] [address] [email or web address] documented as of this encounter Results * MRI Abdomen Outside (No Interpretation) (02/11/2024 12:00 AM EDT) Narrative [place] - 01/26/2025 9:27 AM EDT This study is for PACS storage only and not for interpretation. us Arturo Gayle MD, PhD IMG OU TSIDE IMAGING W/OUT INTERPRETATION Final Result [facility] documented in this encounter Visit Diagnoses Not on filedocumented in this encounter Care Teams Prune Washer Relationship Specialty Start Date End Date Ibeth Lassiter MD [address] [place] [address] PCP - General Family Medicine 08/15/24 documented as of this encounter Additional Source Comments The information contained in this document represents components of the legal health record. It is not the complete legal health record.[facility]
--- OUTSIDE RECORDS SUMMARY | 2025-01-26 18:24 | XMS_ITS | Encounter Summary ---
Author Organization [employer] Address [address] [place] [address] 7t [place] [address] Care Team Providers Care Auditor/Quality Name Role Phone Ibeth Lassiter MD Primary Care Provider [phone] Amber Marie Primary Care Provider [phone] Bailee Lewis MD Primary Care Provider [phone] Ibeth Lassiter MD Primary Care Provider [phone] Bailee Lewis MD Primary Care Provider [phone] Reason for Visit * Reason Onset Date Comments Med Refill 02/07/2024 Encounter Details Date Type Department Care Team (Late st Contact Info) Description 02/07/2024 Refill [facility] CHC MED & PEDS [address] [place], [place] [phone] Ibeth Lassiter MD [address] [place], [place] [phone] Acute necrotizing pancreatitis Social History Tobacco Use [...] the past 12 months, has t he [employer], gas, oil or water company threatened to [...] Description 02/11/2025 2:30 PM EDT Clinical Support [facility] MEDICINE [address] [place] [address] Ena Grant RN 02/16/2025 11:00 AM EDT Office Visit [facility] [address] [place] [address] documented as of this encounter Visit Diagnoses Diagnosis Acute necrotizing pancreatitis Acute pancreatitis documented in this encounter Additional Health Concerns Assessment Noted Time PHQ-9 Depression Total Score: 24 024 3:55 PM EDT documented as of this encounter Care Teams Auditor/Quality Relationship Specialty Start Date End Date Ibeth Lassiter MD [address] [place] [address] PCP - General Family Medicine 12/16/21 10/01/24 Amber Marie FNP [address] [place] [address] PCP - General Family Medicine 10/02/24 10/08/24 Bailee Lewis MD [address] [place] [address] PCP - General Family Medicine 10/09/24 10/12/24 Ibeth Lassiter MD [address] [place] [address] PCP - General Family Medicine 10/13/24 11/13/24 Bailee Lewis MD [address] [place] [address] PCP - General Family Medicine 11/14/24 documented as of this encounter
--- OUTSIDE RECORDS SUMMARY | 2025-01-26 18:24 | XMS_ITS | Encounter Summary ---
Author Organization [employer] Address [address] [facility] 7t [place] [address] Care Team Providers Care Ship/Rec/Doc Control Name Role Phone Ibeth Lassiter MD Primary Care Provider [phone] Bailee Lewis MD Primary Care Provider [phone] Reason for Visit * Reason Onset Date Comments Med Refill 10/22/2024 Encounter Details Date Type Department Care Team ([facility] st Contact Info) Description 10/22/2024 Telephone [facility] MEDICINE 230 [place] [address] Ibeth Lassiter MD 505 [place], [place] [phone] Med Refill Social History Tobacco Use Types Packs/Day Years Used Date Smoking Tobacco: Never Passive Smoke Exposure: Never Smokeless Tobacco: Never Alcohol Use Standard Drinks/Week Comments Never 0 (1 standard drink = 0.6 oz pur e alcohol) Depression Answer Date Recorded Patient Health Questionnaire-9 Score 6 10/09/2024 Patient Health Questionnaire-9 Score 6 10/09/2024 Last PHQ-9: Questionnaire Data Not on file 0 10/09/2024 Housing Stability Answer Date Recorded What is [...] Date Recorded Patient Health Questionnaire-2 Score 2 10/09/2024 Internet Access Answer Date Recorded Internet Access [...] * Telephone Encounter - Abbie Edmonds - 10/22/2024 10:40 AM EDT TC from pt requesting medication refill. Medications needing refill : morphine (MSIR) 15 MG tablet To be sent to: [id number] - [address] [facility] documented in this encounter Plan of Treatment Upcoming Encounters Date Type Department Care Team ([facility] st Contact Info) Description 02/11/2025 2:30 PM EDT Clinical Support [facility] MEDICINE [address] [place] [address] [phone] Ena Grant RN 02/16/2025 11:00 AM EDT Office Visit [facility] [address] [place] [address] documented as of this encounter Visit Diagnoses Not on filedocumented in this encounter Additional Health Concerns Assessment Noted Time PHQ-9 Depression Total Score: 6 10/10/19 25 10:57 AM EDT documented as of this encounter Care Teams Ship/Rec/Doc Control Relationship Specialty Start Date End Date Ibeth Lassiter MD 505 [place] [address] PCP - General Family Medicine 10/13/24 11/13/24 Bailee Lewis MD 230 [place] [address] PCP - General Family Medicine 11/14/24 documented as of this encounter
--- OUTSIDE RECORDS SUMMARY | 2025-01-26 18:24 | XMS_ITS | Encounter Summary ---
Author Organization [employer] Address [address] [place] [address] 7 [place] [address] Care Team Providers Care Manager Image Name Role Phone Bailee Lewis MD Primary Care Provider [phone] Reason for Visit * Reason Onset Date Comments Med Refill 01/25/2025 Encounter Details Date Type Department Care Team (Late st Contact Info) Description 01/25/2025 Refill [facility] MEDICINE 230 [place], [place] [phone] Bailee Lewis MD 230 [place], [place] [phone] Alcohol-induced chronic pancreatitis (CMS/HCC) Social History Tobacco [...] Description 02/11/2025 2:30 PM EDT Clinical Support [address] [address] Ena Grant RN 02/16/2025 11:00 AM EDT Office Visit [facility] MEDICINE [address] [place] [address] documented as of this encounter Visit Diagnoses Diagnosis Alcohol-induced chronic pancreatitis (CMS/HCC) Chronic pancreatitis documented in this encounter Additional Health Concerns Assessment Noted Time PHQ-9 Depression Total Score: 17 025 8:35 AM EDT documented as of this encounter Care Teams Manager Image Relationship Specialty Start Date End Date Bailee Lewis MD [address] [place] [address] PCP - General Family Medicine 11/14/24 documented as of this encounter
--- OUTSIDE RECORDS SUMMARY | 2025-01-26 18:24 | XMS_ITS | Encounter Summary ---
Author Organization [employer] Address [address] [facility] 7 [place] [address] Care Team Providers Care Spectrograph Operator Name Role Phone Ibeth Lassiter MD Primary Care Provider [phone] Amber Marie Primary Care Provider [phone] Bailee Lewis MD Primary Care Provider [phone] Ibeth Lassiter MD Primary Care Provider [phone] Bailee Lewis MD Primary Care Provider [phone] Reason for Visit * Reason Onset Date Comments Med Refill 09/19/2024 Encounter Details Date Type Department Care Team (Late st Contact Info) Description 09/19/2024 Telephone [facility] MEDICINE 230 [place] [address] Ibeth Lassiter MD [address] [place], [place] [phone] Med Refill Social History Tobacco Use Types [...] 15 MG tablet [id number] - [place] [address] [facility] documented in this encounter Plan of Treatment Upcoming Encounters Date Type Department Care Team ([facility] st Contact Info) Description 02/11/2025 2:30 PM EDT Clinical Support [facility] MEDICINE [address] [place] [address] Ena Grant RN 02/16/2025 11:00 AM EDT Office Visit [facility] MEDICINE [address] [place] [address] documented as of this encounter Visit Diagnoses Not on filedocumented in this encounter Additional Health Concerns Assessment Noted Time PHQ-9 Depression Total Score: 22 025 10:04 AM EST documented as of this encounter Care Teams Spectrograph Operator Relationship Specialty Start Date End Date Ibeth Lassiter MD 230 [place] [address] PCP - General Family Medicine 12/16/21 10/01/24 Amber Marie FNP [address] [place] [address] PCP - General Family Medicine 10/02/24 10/08/24 Bailee Lewis MD [address] [place] [address] PCP - General Family Medicine 10/09/24 10/12/24 Ibeth Lassiter MD [address] [place] [address] PCP - General Family Medicine 10/13/24 11/13/24 Bailee Lewis MD [address] [place] [address] PCP - General Family Medicine 11/14/24 documented as of this encounter
--- OUTSIDE RECORDS SUMMARY | 2025-01-26 18:24 | XMS_ITS | Encounter Summary ---
Author Organization [employer] Address [address] [place] [address] 7 [place] [address] Care Team Providers Care Lean Manufacturing Coordinator Name Role Phone Katelyn Mariee JIMENEZ Primary Care Provider [phone] Bailee Lewis MD Primary Care Provider [phone] Ibeth Lassiter MD Primary Care Provider [phone] Bailee Lewis MD Primary Care Provider [phone] Reason for Visit * Reason Onset Date Comments Med Refill 10/07/2024 Encounter Details Date Type Department Care Team (Late st Contact Info) Description 10/07/2024 Refill [facility] MED [facility] PEDS [address] [place], [place] [phone] Ibteh Lassiter MD [address] [place], [place] [phone] Alcohol-induced chronic pancreatitis (CMS/HCC) Social History Tobacco [...] Assessment Author Patient Health Questionnaire -2 Score 2 10/09/2024 10:57 AM Doreen Graves RN * Little interest or pleasure in doing things Answer Date of Assessment Author Several days 10/09/2024 10:57 AM Eros Graves RN * Feeling down, depressed, or hopeless Answer Date of Assessment Author Several days 10/09/2024 10:57 AM Eros Graves RN * Trouble falling or staying asleep, or sleeping too much Answer Date of Assessment Author Not at all 10/09/2024 10:57 AM Eros Graves RN * Feeling tired or having little energy Answer Date of Assessment Author Several days 10/09/2024 10:57 AM Eros Graves RN * Poor appetite or overeating Answer Date of Assessment Author Several days 10/09/2024 10:57 AM Eros Graves RN * Feeling bad about yourself - or that you are a failure or have let yourself or your family down Answer Date of Assessment Author Not at all 10/09/2024 10:57 AM Eros Graves RN * Trouble concentrating on things, such as reading the newspaper or watching television Answer Date of Assessment Author Several days 10/09/2024 10:57 AM Eros Graves RN * Moving or speaking so slowly that other people could have noticed? Or the opposite - being so fidgety or restless that you have been moving around a lot more than usual. Answer Date of Assessment Author Several days 10/09/2024 10:57 AM Eros Graves RN * Thoughts that you would be better off or hurting yourself in some way Answer Date of Assessment Author Not at all 10/09/2024 10:57 AM Eros Graves RN * Patient Health Questionnaire-9 Score Answer Date of Assessment Author 6 10/09/2024 10:57 AM Eros Graves RN * How difficult have these problems made it for you to do your work, take care of things at home, or get along with other people? Answer Date of Assessment Author Somewhat difficult 10/09/2024 10:57 AM Doreen Graves RN * Over the last 2 weeks, how often have you been bothered by any of the following problems? Question Answer Date of Assessment Author Feeling nervous, anxious, or on edge 1 10/09/2024 10:57 AM Doreen Graves RN Not being able to stop or co ntrol worrying 1 10/09/2024 10:57 AM Doreen Graves RN Worrying too much about diff erent things 1 10/09/2024 10:57 AM Doreen Graves RN Trouble relaxing 0 10/09/2024 10:57 AM Doreen Graves RN Being so restless that it is hard to sit still 0 10/09/2024 10:57 AM EDT Doreen Johnston RN Becoming easily annoyed or irritable 1 10/09/2024 10:57 AM EDT Doreen Johnston RN Feeling afraid as if somethi ng awful might happen 1 10/09/2024 10:57 AM EDT Doreen Johnston RN KENZIE-7 Total Score 5 10/09/2024 10:57 AM EDT Doreen Johnston RN documented as of this encounter Plan of Treatment Upcoming Encounters Date Type Department Care Team (Late st Contact Info) Description 02/11/2025 2:30 PM EDT Clinical Support [address] [address] Ena Grant RN 02/16/2025 11:00 AM EDT Office Visit [address] [address] documented as of this encounter Visit Diagnoses Diagnosis Alcohol-induced chronic pancreatitis (CMS/HCC) Chronic pancreatitis documented in this encounter Additional Health Concerns Assessment Noted Time PHQ-9 Depression Total Score: 22 025 10:04 AM EST documented as of this encounter Care Teams Lean Manufacturing Coordinator Relationship Specialty Start Date End Date Amber Marie FNP [address] [place] [address] PCP - General Family Medicine 10/02/24 10/08/24 Bailee Lewis MD [address] [place] [address] PCP - General Family Medicine 10/09/24 10/12/24 Ibeth Lassiter MD [address] [place] [address] PCP - General Family Medicine 10/13/24 11/13/24 Bailee Lewis MD [address] [place] [address] PCP - General Family Medicine 11/14/24 documented as of this encounter
--- OUTSIDE RECORDS SUMMARY | 2025-01-26 18:24 | XMS_ITS | Encounter Summary ---
Author Organization [employer] Address [address] [facility] 7t [place] [address] Care Team Providers Care Buyer Renter Name Role Phone Ibeth Lassiter MD Primary Care Provider [phone] Bailee Lewis MD Primary Care Provider [phone] Reason for Visit * Reason Onset Date Comments Medication Question 11/12/2024 Encounter Details Date Type Department Care Team ([facility] st Contact Info) Description 11/12/2024 Telephone [facility] MEDICINE [address] [place] [address] Ibeth Lassiter MD [address] [place], [place] [phone] Medication Question Social History Tobacco Use Types [...] Answer Date of Assessment Author Patient Health Questionnaire-2 Score 5 11/14/2024 9:43 AM EDT Edith Muse MA * Little interest or pleasure in doing things Answer Date of Assessment Author Nearly every day 11/14/2024 9:43 AM EDT Edith Muse MA * Feeling down, depressed, or hopeless Answer Date of Assessment Author More than half the days 11/14/2024 9:43 AM EDT Edith Aguilera MA * Trouble falling or staying asleep, or sleeping too much Answer Date of Assessment Author More than half the days 11/14/2024 9:43 AM EDT Edith Aguilera MA * Feeling tired or having little energy Answer Date of Assessment Author Nearly every day 11/14/2024 9:43 AM EDT Edith Muse MA * Poor appetite or overeating Answer Date of Assessment Author Several days 11/14/2024 9:43 AM RAFITAT Edith Muse MA * Feeling bad about yourself - or that you are a failure or have let yourself or your family down Answer Date of Assessment Author Nearly every day 11/14/2024 9:43 AM EDT Edith Muse MA * Trouble concentrating on things, such as reading the newspaper or watching television Answer Date of Assessment Author More than half the days 11/14/2024 9:43 AM EDT Edith Aguilera MA * Moving or speaking so slowly that other people could have noticed? Or the opposite - being so fidgety or restless that you have been moving around a lot more than usual. Answer Date of Assessment Author Not at all 11/14/2024 9:43 AM Edith Anton MA * Thoughts that you would be better off or hurting yourself in some way Answer Date of Assessment Author Not at all 11/14/2024 9:43 AM RAFITAT Edith Muse MA * Patient Health Questionnaire-9 Score Answer Date of Assessment Author 16 11/14/2024 9:43 AM Edith Anton MA * How difficult have these problems made it for you to do your work, take care of things at home, or get along with other people? Answer Date of Assessment Author Somewhat difficult 11/14/2024 9:43 AM EDT Edith Boucher MA * Over the last 2 weeks, how often have you been bothered by any of the following problems? Question Answer Date of Assessment Author Feeling nervous, anxious, or on edge 1 11/14/2024 9:45 AM EDT Edith Muse MA Not being able to stop or control worrying 2 11/14/2024 9:45 AM EDT Edith Muse MA Worrying too much about different things 3 11/14/2024 9:45 AM EDT Edith Muse MA Trouble relaxing 2 11/14/2024 9:45 AM EDT Edith Aguilera MA Being so restless that it is hard to sit still 2 11/14/2024 9:45 AM EDT Edith Muse MA Becoming easily annoyed or irritable 2 11/14/2024 9:45 AM EDT Edith Muse MA Feeling afraid as if something awful might happen 3 11/14/2024 9:45 AM EDT Edith Muse MA KENZIE-7 Total Score 15 11/14/2024 9:45 AM EDT Edith Muse MA documented as of this encounter Miscellaneous Notes * Telephone Encounter - Bernabe Brand - 11/12/2024 3:59 PM EDT Tc from pt requesting call back stating she was informed that she would received a short script of Morphine for these next two days until her upcoming TP. Please contact pt at [phone]. documented in this encounter Plan of Treatment Upcoming Encounters Date Type Department Care Team (Late st Contact Info) Description 02/11/2025 2:30 PM EDT Clinical Support [facility] MEDICINE [address] [place] [address] Ena Grant RN 02/16/2025 11:00 AM EDT Office Visit [facility] [address] [place] [address] documented as of this encounter Visit Diagnoses Not on filedocumented in this encounter Additional Health Concerns Assessment Noted Time PHQ-9 Depression Total Score: 6 10/10/19 25 10:57 AM EDT documented as of this encounter Care Teams Buyer Renter Relationship Specialty Start Date End Date Ibeth Lassiter MD [address] [place] [address] PCP - General Family Medicine 10/13/24 11/13/24 Bailee Lewis MD [address] [place] [address] PCP - General Family Medicine 11/14/24 documented as of this encounter
--- OUTSIDE RECORDS SUMMARY | 2025-01-26 18:24 | XMS_ITS | Encounter Summary ---
Author Organization [employer] Address [address] [facility] 7 [place] [address] Care Team Providers Care Stock Blender Name Role Phone Ibeth Lassiter MD Primary Care Provider [phone] Amber Marie Primary Care Provider [phone] Bailee Lewis MD Primary Care Provider [phone] Ibeth Lassiter MD Primary Care Provider [phone] Bailee Lewis MD Primary Care Provider [phone] Reason for Visit * Reason Onset Date Comments Appointment Request 06/27/2024 Encounter Details Date Type Department Care Team (Late st Contact Info) Description 06/27/2024 Telephone [facility] MEDICINE [address] [place] [address] Ibeth Lassiter MD [address] [place], [place] [phone] Appointment Request Social History Tobacco Use Types [...] R/s appt from 06/12. Contact pt at [phone] documented in this encounter Plan of Treatment Upcoming Encounters Date Type Department Care Team (Late st Contact Info) Description 02/11/2025 2:30 PM EDT Clinical Support [facility] [address] [place] [address] Ena Grant RN 02/16/2025 11:00 AM EDT Office Visit [facility] [address] [place] [address] documented as of this encounter Visit Diagnoses Not on filedocumented in this encounter Additional Health Concerns Assessment Noted Time PHQ-9 Depression Total Score: 22 025 10:04 AM EST documented as of this encounter Care Teams Stock Blender Relationship Specialty Start Date End Date Ibeth Lassiter MD [address] [place] [address] PCP - General Family Medicine 12/16/21 10/01/24 Amber Marie FNP [address] [place] [address] PCP - General Family Medicine 10/02/24 10/08/24 Bailee Lewis MD [address] [place] [address] PCP - General Family Medicine 10/09/24 10/12/24 Ibeth Lassiter MD [address] [place] [address] PCP - General Family Medicine 10/13/24 11/13/24 Bailee Lewis MD [address] [place] [address] PCP - General Family Medicine 11/14/24 documented as of this encounter
--- OUTSIDE RECORDS SUMMARY | 2025-01-26 18:24 | XMS_ITS | Encounter Summary ---
Author Organization [employer] Address [address] [place] [address] 7 [place] [address] Care Team Providers Care Child Psychometrist Name Role Phone Bailee Lewis MD Primary Care Provider [phone] Reason for Visit * Reason Comments Care Coordination [facility]/Rolf junior, Program graduation Encounter Details Date Type Department Care Team (Latest Contact Info) Description 01/26/2025 Patient Outreach [facility] MEDICINE [address] [place] [address] Bailee Lewis MD [address] [place] [address] Care Coordination (JANINE/RUTH Kauffman, Program graduation) Social History Tobacco Use Types Packs/Day Years [...] with others, in a hotel, in a usp, living outside on the street, on a [...] as of this encounter Progress Notes * Rain Kauffman - 01/26/2025 3:14 PM EDT CHW Rain Kauffman placed an outbound call to the patient for follow-up on SDOH needs. Patient???s name, , and address were confirmed. Patient reports doing well. CHW reviewed the patient???s progress in the CHW Program. Patient was provided with the [employer] low-income housing application and stated she is currently on a waitlist for another low-income apartment. Patient will continue applying to open low-income housing opportunities until stable housing is secured. Due to limited income, patient is unable to afford full market rent. Patient was informed ofgraduation from the Care Management-CHW Program. Education was provided on how to access SDOH services in the future. Patient verbalized agreement with the plan and will contact the program if additional needs arise. No further questions or concerns were noted. CHW reinforced direct contact information at for additional questions or concerns, and reminded patient of extended clinic hours on Mondays and Wednesdays, as well as the Walk-In Urgent Care located in the [facility]. Patient was also provided the after-hours line for [facility], , which offers nighttime triage services and the option to connect with the on-call provider if needed. documented in this encounter Plan of Treatment Upcoming Encounters Date Type Department Care Team (Late st Contact Info) Description 02/11/2025 2:30 PM EDT Clinical Support [address] [address] Ena Grant RN 02/16/2025 11:00 AM EDT Office Visit [facility] MEDICINE [address] [place] [address] documented as of this encounter Visit Diagnoses Not on filedocumented in this encounter Additional Health Concerns Assessment Noted Time PHQ-9 Depression Total Score: 17 12/24/ 025 8:35 AM EDT documented as of this encounter Care Teams Child Psychometrist Relationship Specialty Start Date End Date Bailee Lewis MD [address] [place] [address] PCP - General Family Medicine 11/14/24 documented as of this encounter
--- OUTSIDE RECORDS SUMMARY | 2025-01-26 18:24 | XMS_ITS | Encounter Summary ---
Author Organization [employer] Address [address] [facility] 7t [place] [address] Care Team Providers Care Supervisor Press Room Name Role Phone Ibeth Lassiter MD Primary Care Provider [phone] Bailee Lewis MD Primary Care Provider [phone] Reason for Visit * Reason Onset Date Comments Medication Question 10/22/2024 Encounter Details Date Type Department Care Team ([facility] st Contact Info) Description 10/22/2024 Telephone [facility] MEDICINE [address] [place] [address] Ibeth Lassiter MD [address] [place], [place] [phone] Medication Question Social History Tobacco Use Types [...] Telephone Encounter - Abbie Edmonds - 10/22/2024 10:30 AM EDT Tc from pt stating that she been in hospital and medication was change Hospital: [facility] Date of admission: 10/12/24 Discharge date: 10/14/24 Medication that was change in the visit -morphine (MSIR) 15 MG tablet Contact Pt at [phone] documented in this encounter Plan of Treatment Upcoming Encounters Date Type Department Care Team (Late st Contact Info) Description 02/11/2025 2:30 PM EDT Clinical Support [facility] MEDICINE [address] [place] [address] Ena Grant RN 02/16/2025 11:00 AM EDT Office Visit [facility] MEDICINE [address] [place] [address] documented as of this encounter Visit Diagnoses Not on filedocumented in this encounter Additional Health Concerns Assessment Noted Time PHQ-9 Depression Total Score: 6 10/10/19 10:57 AM EDT documented as of this encounter Care Teams Supervisor Press Room Relationship Specialty Start Date End Date Ibeth Lassiter MD [address] [place] [address] PCP - General Family Medicine 10/13/24 11/13/24 Bailee Lewis MD [address] [place] [address] PCP - General Family Medicine 11/14/24 documented as of this encounter
--- OUTSIDE RECORDS SUMMARY | 2025-01-26 18:24 | XMS_ITS | Encounter Summary ---
Author Organization [employer] Address [address] [facility] 7t [place] [address] Care Team Providers Care Stonecutter Name Role Phone Ibeth Lassiter MD Primary Care Provider [phone] Bailee Lewis MD Primary Care Provider [phone] Reason for Visit * Reason Onset Date Comments Med Refill 10/30/2024 Encounter Details Date Type Department Care Team ([facility] st Contact Info) Description 10/30/2024 Refill [facility] CH[facility] MED & PEDS [address] [place] [address] Luciano Flores MD [address] [place] [address] Pain of upper abdomen Social History Tobacco Use Types Packs/Day Years [...] Description 02/11/2025 2:30 PM EDT Clinical Support [address] [address] Ena Grant RN 02/16/2025 11:00 AM EDT Office Visit [address] [address] documented as of this encounter Visit Diagnoses Diagnosis Pain of upper abdomen documented in this encounter Additional Health Concerns Assessment Noted Time PHQ-9 Depression Total Score: 6 10/10/19 10:57 AM EDT documented as of this encounter Care Teams Stonecutter Relationship Specialty Start Date End Date Ibeth Lassiter MD [address] [place] [address] PCP - General Family Medicine 10/13/24 11/13/24 Bailee Lewis MD [address] [place] [address] PCP - General Family Medicine 11/14/24 documented as of this encounter
--- OUTSIDE RECORDS SUMMARY | 2025-01-26 18:24 | XMS_ITS | Encounter Summary ---
Author Organization [employer] Address 75 [facility] 7t [place] [address] Care Team Providers Care Toe Trimmer Name Role Phone Bailee Lewis MD Primary Care Provider [phone] Encounter Details Date Type Department Care Team (Late st Contact Info) Description 01/24/2025 Orders Only GENERIC EXTERNAL DATA DEPARTMENT Provider, [...] with others, in a hotel, in a long-term, living outside on the street, on a [...] Description 02/11/2025 2:30 PM EDT Clinical Support [facility] [address] [place] [address] 18[address] Ena Grant RN 02/16/2025 11:00 AM EDT Office Visit [facility] [address] [place] [address] documented as of this encounter Procedures Procedure Name Priority Date/Time Associated Diagnosis Comments CT ABDOMEN PELVIS W CONTRAST Routine 01/24/2025 11:21 PM EDT ETHANOL Routine 01/24/2025 8:35 PM EDT CBC WITH AUTO DIFFERENTIAL Routine 01/24/2025 8:35 PM EDT HCG, TOTAL, QN Routine 01/24/2025 8:35 PM EDT MAGNESIUM Routine 01/24/2025 8:35 PM EDT LIPASE Routine 01/24/2025 8:35 PM EDT COMPREHENSIVE METABOLIC PANEL Routine 01/24/2025 8:35 PM EDT documented in this encounter Results * CT Abdomen Pelvis w/ Contrast (01/24/2025 11:21 PM EDT) Anatomical Region Laterality Modality Body, Pelvis, Abdomen Computed T omography 01/24/2025 11:2 1 PM EDT Narrative 01/24/2025 11:23 PM EDT [place] [id number] CT Scan Report Signed Patient: Deepti Aguilar MR#: [id number] 5 : 1995 Acct:[id number] Age/Sex: 29 / F ADM Date: 01/24/25 Loc: .ED Attending Dr: Ordering Physician: Katarzyna Hui Date of Service: 01/24/25 Procedure(s): CT abdomen pelvis w IV con Accession Number(s): [id number] cc: Katarzyna Hui; Bailee Lewis Report Number: [id number]: Total DLP = 567.00 mGy-cm CLINICAL HISTORY: pancreatitis? CT abdomen and pelvis with contrast Comparison: CT/REG/SR - CT ABDOMEN PELVIS W IV CON - 01/11/25 05:09 EDT Findings: The lung bases are clear. Pancreatic tail is absent. Pancreatic head and body are unremarkable. No peripancreatic fluid. Diffuse fatty infiltration of the liver. Spleen, adrenal glands, kidneys are unremarkable. Appendix not visualized. No inflammatory change in the region of the cecum. Small bowel loops are normal caliber. Large amount of fecal loading within the colon. No bowel wall thickening. No evidence of bowel obstruction. No free air. No ascites. There is a cystic lesion within the right adnexa measuring 2.0 cm. Left adnexa and uterus are unremarkable. No acute fracture. IMPRESSION: No acute findings. No abnormalities of the pancreas seen. Diffuse fatty infiltration of the liver. This document has been electronically signed by: Niles Henderson MD on 01/24/2025 23:21:45 Dictated By: Niles Henderson MD Signed By: <Electronically signed by Niles Henderson MD in OV> 01/24/252321 DD/ 20 TD/TT: 01/24/252320 Coal Getter: Procedure Note Donotuseinterpreter, Image - 01/24/[address] [place] [address] [address] Scan Report Signed Patient: Tori Aguilar#: [id number] 5 : 1995Acct:[id number] Age/Sex: 29 / FADM Date: 01/24/25 Loc: HO.ED Attending Dr: Ordering Physician: Katarzyna Hui Date of Service: 01/24/25 Procedure(s): CT abdomen pelvis w IV con Accession Number(s): [id number] cc: Katarzyna Hui; Bailee Lewis Report Number: [id number]: Total DLP = 567.00 mGy-cm CLINICAL HISTORY: pancreatitis? CT abdomen and pelvis with contrast Comparison: CT/REG/SR - CT ABDOMEN PELVIS W IV CON - 01/11/25 05:09 EDT Findings: The lung bases are clear. Pancreatic tail is absent. Pancreatic head and body are unremarkable. No peripancreatic fluid. Diffuse fatty infiltration of the liver. Spleen, adrenal glands, kidneys are unremarkable. Appendix not visualized. No inflammatory change in the region of thececum. Small bowel loops are normal caliber. Large amount of fecal loading within the colon. No bowel wall thickening. No evidence of bowel obstruction. No free air. No ascites. There is a cystic lesion within the right adnexa measuring 2.0 cm. Left adnexa and uterus are unremarkable. No acute fracture. IMPRESSION: No acute findings. No abnormalities of the pancreas seen. Diffuse fatty infiltration of the liver. This document has been electronically signed by: Niles Henderson MD on 01/24/2025 23:21:45 Dictated By: Niles Henderson MD Signed By: <Electronically signed by Niles Henderson MD in OV> 01/24/252321 DD/ 20 TD/TT: 01/24/252320 Coal Getter: [facility] External Provider IMG CT PROCEDURES Edited Result - Final * Ethanol (01/24/2025 8:35 PM EDT) ETHANOL (MG/DL) IN SER/PLAS <10 mg/dL [facility] Comment:Serum/plasma ethanol results are to be used formedical/treatment purposes only. 01/24/2025 8:35 PM EDT 01/24/2025 8:38 PM EDT Generic External Data Provider LAB BLOOD ORDERAB LES Final Result [facility] [address] [place] [phone] * hCG, Total, Quantitative (01/24/2025 8:35 PM EDT) HCG Quantitative <2 mIU/mL [facility] Comment:Weeks post LMP Appro ximate hCG(Last Menstrual Period) Range (mIU/ml)3 - 4 weeks 9 - 1304 - 5 weeks 75 - 2,6005 - 6 weeks 850 - 20,8006 - 7 weeks 4000 - 100,2007 - 12 weeks 11,500 - 289,03820 - 16 weeks 18,300 - 137,75520 - 29 weeks (2nd trimester) 1,400 - 53,65638 - 41 weeks (3rd trimester) 940 - 60,000The Nunez B- hCG assay is used for the early detection ofpregnancy; it cannot be used to diagnose any conditionunrelated to . If a B-hCG level is not supportedby the clinical evidence, results should be confirmed by analternative method (qualitative urine hCG, for example). 01/24/2025 8:35 PM EDT 01/24/2025 8:38 PM EDT Generic External Data Provider LAB BLOOD ORDERAB LES Final Result Performing Organization Address [facility] Co de Phone Number [facility] [address] [place] [phone] * (ABNORMAL) Lipase (01/24/2025 8:35 PM EDT) Pathologist [facility] Lipase 5(L) 8 - 78 U/L [facility] 01/24/2025 8:35 PM EDT 01/24/2025 8:38 PM EDT Generic External Data Provider LAB BLOOD ORDERAB LES Final Result Performing Organization Address [facility] de Phone Number [facility] [address] [place] [phone] * Magnesium (01/24/2025 8:35 PM EDT) Pathologist [facility] Magnesium 1.9 1.6 - 2.6 mg/dL [facility] 01/24/2025 8:35 PM EDT 01/24/2025 8:38 PM EDT Generic External Data Provider LAB BLOOD ORDERAB LES Final Result Performing Organization Address [facility] de Phone Number [facility] [address] [place] [address] [phone] * (ABNORMAL) Comprehensive Metabolic Panel (01/24/2025 8:35 PM EDT) Sodium 139 135 - 145 mmol/L [facility] Potassium 3.6 3.3 - 5.1 mmol/L [facility] Chloride 112(H) 96 - 108 mmol/L [facility] Carbon Dioxide 19(L) 22 - 29 mmol/L [facility] Anion Gap 12 12 - 20 [facility] Urea Nitrogen (BUN) 9 9 - 16 mg/dL [facility] Creatinine, Serum 0.76 0.5 - 1.4 mg/dL [facility] Creatinine Clr Calc Pharmacy 107.4 [facility] Comment:Provided height and weight: 165.1 cm,70.307 kg.eGFR (calculated from the MDRD study equation) and eCrCl(calculated from the Cockcroft-Gault equation) are based ondifferent parameters and may not yield comparable results.If eCrCl result is absurd, please check patient'sheight/weight. Estimated Glomerular Filt Rate >60 [facility] Comment:Chronic Kidney Disea se: Estimated GFR < 60 mL/min/1.45e8Xjgpsd Kidney Disease: Estimated GFR < 15 mL/min/1.73m2 Glucose 194(H) 60 - 115 mg/dL [facility] Calcium 8.4 8.4 - 10.2 mg/dL [facility] Bilirubin, Total 0.4 0.0 - 1.0 mg/dL [facility] Aspartate Amino Transferase 82(H) 5 - 31 U/L [facility] Alanine Aminotransferase 74(H) 0 - 31 U/L [facility] Total Protein 6.7 6.5 - 8.0 g/dL [facility] Albumin Level 4.0 3.5 - 5.0 g/dL [facility] Alkaline Phosphatase 146(H) 39 - 117 U/L [facility] 01/24/2025 8:35 PM EDT 01/24/2025 8:38 PM EDT us Generic External Data Provider LAB BLOOD ORDERAB LES Final Result [facility] [address] [place] [address] [phone] * (ABNORMAL) CBC auto differential (01/24/2025 8:35 PM EDT) White Blood Count 6.5 4.8 - 10.8 X10*3/uL [facility] Red Blood Count 3.75(L) 4.20 - 5.50 X10*6/uL [facility] Hemoglobin 9.0(L) 12.0 - 16.0 g/dl [facility] Hematocrit 28.6(L) 37.0 - 47.0 % [facility] Mean Corpuscular Volume 76.3(L) 80.0 - 98.0 fL [facility] Mean Corpuscular Hemoglobin 24.0(L) 27.0 - 33.0 pg [facility] Mean Corpuscular HGB Conc 31.5 31.0 - 35.0 g/dl [facility] Red Cell Distribution Width 16.3(H) 11.0 - 16.0 % [facility] Platelet Count 216 160 - 400 X10*3/uL [facility] Mean Platelet Volume 11.0 9.4 - 12.3 fL [facility] Neutrophils Percent Auto 67.7 45 - 73 % [facility] Imm Gran Pct Auto 0.3 0.0 - 0.4 % [facility] Lymphocytes Percent Auto 21.4 20 - 40 % [facility] Monocytes Percent Auto 8.7 2 - 11 % [facility] Eosinophils Percent Auto 1.4 0 - 4 % [facility] Basophils Percent Auto 0.5 0 - 2 % [facility] NRBC Pct Auto 0.0 0.0 - 0.2 /100WBC [facility] Neutrophils Absolute Auto 4.4 2.0 - 8.3 x10*3/uL [facility] Imm Gran Abs Auto 0.02 0.00 - 0.03 X10*3/uL [facility] Lymphocytes Absolute Auto 1.4 1.2 - 4.9 X10*3/uL [facility] Monocytes Absolute Auto 0.6 0.1 - 1.2 X10*3/uL [facility] Eosinophils Absolute Auto 0.1 0.0 - 0.4 X10*3/uL [facility] Basophils Absolute Auto 0.0 0.0 - 0.2 X10*3/uL [facility] NRBC Abs Auto 0.000 0.0 - 0.012 X10*3/uL [facility] 01/24/2025 8:35 PM EDT 01/24/2025 8:38 PM EDT us Generic External Data Provider LAB BLOOD ORDERAB LES Final Result [facility] [address] [place] [phone] [phone] documented in this encounter Visit Diagnoses Not on filedocumented in this encounter Additional Health Concerns Assessment Noted Time PHQ-9 Depression Total Score: 17 12/24/ 025 8:35 AM EDT documented as of this encounter Care Teams Toe Trimmer Relationship Specialty Start Date End Date Bailee Lewis MD [address] [place] [address] PCP - General Family Medicine 11/14/24 documented as of this encounter
--- OUTSIDE RECORDS SUMMARY | 2025-01-26 18:24 | XMS_ITS | Encounter Summary ---
Author Organization [employer] Address 75 [facility] 7t [place] [address] Care Team Providers Care Second Rigger Name Role Phone Bailee Lewis MD Primary Care Provider Encounter Details Date Type Department Care Team (Late st Contact Info) Description 01/26/2025 Orders Only GENERIC EXTERNAL DATA DEPARTMENT Provider, [...] 02/11/2025 2:30 PM EDT Clinical Support [facility] [address] [place] [phone] Ena Grant RN 02/16/2025 11:00 AM EDT Office Visit [facility] [address] [place] [address] documented as of this encounter Procedures Procedure Name Priority Date/Time Associated Diagnosis Comments CBC WITH AUTO DIFFERENTIAL Routine 01/26/2025 4:32 PM EDT MAGNESIUM Routine 01/26/2025 4:32 PM EDT LIPASE Routine 01/26/2025 4:32 PM EDT COMPREHENSIVE METABOLIC PANEL Routine 01/26/2025 4:32 PM EDT documented in this encounter Results * (ABNORMAL) Lipase (01/26/2025 4:32 PM EDT) Pathologist [facility] Lipase 6(L) 8 - 78 U/L [facility] 01/26/2025 4:32 PM EDT 01/26/2025 4:42 PM EDT us Generic External Data Provider LAB BLOOD ORDERAB LES Final Result Performing Organization Address [facility]/ZIP Co de Phone Number [facility] [address] [place] [phone] * Magnesium (01/26/2025 4:32 PM EDT) [facility] Magnesium 1.8 1.6 - 2.6 mg/dL [facility] 01/26/2025 4:32 PM EDT 01/26/2025 4:42 PM EDT Generic External Data Provider LAB BLOOD ORDERAB LES Final Result Performing Organization Address [facility]/ZIP Co de Phone Number [facility] [address] [place] [phone] * (ABNORMAL) Comprehensive Metabolic Panel (01/26/2025 4:32 PM EDT) [facility] Sodium 139 135 - 145 mmol/L [facility] Potassium 3.8 3.3 - 5.1 mmol/L [facility] Chloride 111(H) 96 - 108 mmol/L [facility] Carbon Dioxide 20(L) 22 - 29 mmol/L [facility] Anion Gap 12 12 - 20 [facility] Urea Nitrogen (BUN) 6(L) 9 - 16 mg/dL [facility] Creatinine, Serum 0.63 0.5 - 1.4 mg/dL [facility] Creatinine Clr Calc Pharmacy 129.4 [facility] Comment:Provided height and weight: 165.1 cm,70 kg.eGFR (calculated from the MDRD study equation) and eCrCl(calculated from the Cockcroft-Gault equation) are based ondifferent parameters and may not yield comparable results.If eCrCl result is absurd, please check patient'sheight/weight. Estimated Glomerular Filt Rate >60 [facility] Comment:Chronic Kidney Disea se: Estimated GFR < 60 mL/min/1.02b4Slefrd Kidney Disease: Estimated GFR < 15 mL/min/1.73m2 Glucose 116(H) 60 - 115 mg/dL [facility] Calcium 8.4 8.4 - 10.2 mg/dL [facility] Bilirubin, Total 0.3 0.0 - 1.0 mg/dL [facility] Aspartate Amino Transferase 63(H) 5 - 31 U/L [facility] Alanine Aminotransferase 81(H) 0 - 31 U/L [facility] Total Protein 6.6 6.5 - 8.0 g/dL [facility] Albumin Level 4.1 3.5 - 5.0 g/dL [facility] Alkaline Phosphatase 137(H) 39 - 117 U/L [facility] 01/26/2025 4:32 PM EDT 01/26/2025 4:42 PM EDT us Generic External Data Provider LAB BLOOD ORDERAB LES Final Result [facility] [address] [place] [phone] * (ABNORMAL) CBC auto differential (01/26/2025 4:32 PM EDT) White Blood Count 9.3 4.8 - 10.8 X10*3/uL [facility] Red Blood Count 3.95(L) 4.20 - 5.50 X10*6/uL [facility] Hemoglobin 9.4(L) 12.0 - 16.0 g/dl [facility] Hematocrit 30.0(L) 37.0 - 47.0 % [facility] Mean Corpuscular Volume 75.9(L) 80.0 - 98.0 fL [facility] Mean Corpuscular Hemoglobin 23.8(L) 27.0 - 33.0 pg [facility] Mean Corpuscular HGB Conc 31.3 31.0 - 35.0 g/dl [facility] Red Cell Distribution Width 16.7(H) 11.0 - 16.0 % [facility] Platelet Count 224 160 - 400 X10*3/uL [facility] Mean Platelet Volume 10.6 9.4 - 12.3 fL [facility] Neutrophils Percent Auto 71.6 45 - 73 % [facility] Imm Gran Pct Auto 0.3 0.0 - 0.4 % [facility] Lymphocytes Percent Auto 19.5(L) 20 - 40 % [facility] Monocytes Percent Auto 7.1 2 - 11 % [facility] Eosinophils Percent Auto 1.1 0 - 4 % [facility] Basophils Percent Auto 0.4 0 - 2 % [facility] NRBC Pct Auto 0.0 0.0 - 0.2 /100WBC [facility] Neutrophils Absolute Auto 6.7 2.0 - 8.3 x10*3/uL [facility] Imm Gran Abs Auto 0.03 0.00 - 0.03 X10*3/uL [facility] Lymphocytes Absolute Auto 1.8 1.2 - 4.9 X10*3/uL [facility] Monocytes Absolute Auto 0.7 0.1 - 1.2 X10*3/uL [facility] Eosinophils Absolute Auto 0.1 0.0 - 0.4 X10*3/uL [facility] Basophils Absolute Auto 0.0 0.0 - 0.2 X10*3/uL [facility] NRBC Abs Auto 0.000 0.0 - 0.012 X10*3/uL [facility] 01/26/2025 4:32 PM EDT 01/26/2025 4:42 PM EDT us Generic External Data Provider LAB BLOOD ORDERAB LES Final Result [facility] [address] [place] [phone] documented in this encounter Visit Diagnoses Not on filedocumented in this encounter Additional Health Concerns Assessment Noted Time PHQ-9 Depression Total Score: 17 025 8:35 AM EDT documented as of this encounter Care Teams Second Rigger Relationship Specialty Start Date End Date Bailee Lewis MD [address] [place] [address] PCP - General Family Medicine 11/14/24 documented as of this encounter
--- OUTSIDE RECORDS SUMMARY | 2025-01-26 18:24 | XMS_ITS | Encounter Summary ---
Author Organization [facility] Address [address] [place] [phone] Phone Care Team Providers Care Director Of Teaching And Learning Name Role Phone Ibeth Lassiter MD Primary Care Provider [phone] Encounter Details Date Type Department Care Team (Late st Contact Info) Description 01/26/2025 Ancillary Orders [facility] [address] [place] [phone] Arturo Gayle MD, PhD [address] [place] [phone] [email or web address] Social History Tobacco Use Types Packs/Day Years [...] Info) Description 03/06/2025 10:[address] [facility] [address] [place] [address] Arturo Gayle MD, PhD [address] [place] [address] [email or web address] documented as of this encounter Results * CT Abdomen/Pelvis Outside (No Interpretation) (01/12/2025 12:00 AM EDT) Narrative DANIELA - 01/26/2025 9:27 AM EDT This study is for PACS storage only and not for interpretation. us Arturo Gayle MD, PhD IMG OU TSIDE IMAGING W/OUT INTERPRETATION Final Result [facility] documented in this encounter Visit Diagnoses Not on filedocumented in this encounter Care Teams Director Of Teaching And Learning Relationship Specialty Start Date End Date Ibeth Lassiter MD [address] [place] [phone] PCP - General Family Medicine 08/15/24 documented as of this encounter Additional Source Comments The information contained in this document represents components of the legal health record. It is not the complete legal health record.[facility]
--- OUTSIDE RECORDS SUMMARY | 2025-01-26 18:24 | XMS_ITS | Encounter Summary ---
Author Organization [employer] Address [address] [facility] 7t [place] [address] Care Team Providers Care Research Center Director Name Role Phone Ibeth Lassiter MD Primary Care Provider [phone] Amber Marie Primary Care Provider [phone] Bailee Lewis MD Primary Care Provider [phone] Ibeth Lassiter MD Primary Care Provider [phone] Bailee Lewis MD Primary Care Provider [phone] Encounter Details Date Type Department Care Team (Late st Contact Info) Description 09/29/2024 Orders Only [facility] [address] [place] [address] Alyssia Jorgensen FNP [address] [place], [place] [phone] Long-term current use of opiate analgesic (Primary [...] the past 12 months, has t he [employer] gas, oil or water company threatened to [...] Description 02/11/2025 2:30 PM EDT Clinical Support [facility] [address] [place] [address] Ena Grant RN 02/16/2025 11:00 AM EDT Office Visit [facility] [address] [place] [phone] documented as of this encounter Visit Diagnoses Diagnosis Long-term current use of opiate analgesic- Primary Encounter for long-term (current) use of other medications documented in this encounter Additional Health Concerns Assessment Noted Time PHQ-9 Depression Total Score: 22 025 10:04 AM EST documented as of this encounter Care Teams Research Center Director Relationship Specialty Start Date End Date Ibeth Lassiter MD [address] [place] [phone] PCP - General Family Medicine 12/16/21 10/01/24 Amber Marie FNP [address] [place] [address] PCP - General Family Medicine 10/02/24 10/08/24 Bailee Lewis MD [address] [place] [address] PCP - General Family Medicine 10/09/24 10/12/24 Ibeth Lassiter MD [address] [place] [address] PCP - General Family Medicine 10/13/24 11/13/24 Bailee Leiws MD [address] [place] [address] PCP - General Family Medicine 11/14/24 documented as of this encounter
--- OUTSIDE RECORDS SUMMARY | 2025-01-26 18:24 | XMS_ITS | Encounter Summary ---
Author Organization [employer] Address 75 [facility] 7 [place] [address] Care Team Providers Care Arboreal Scientist Name Role Phone Ibeth Lassiter MD Primary Care Provider [phone] Amber Marie Primary Care Provider [phone] Bailee Lewis MD Primary Care Provider [phone] Ibeth Lassiter MD Primary Care Provider [phone] Bailee Lewis MD Primary Care Provider [phone] Reason for Visit * Reason Comments Med Refill Encounter Details Date Type Department Care Team (Late st Contact Info) Description 06/19/2024 Refill [facility] [address] [place] [address] Ibeth Lassiter MD [address] [place], [place] [phone] Alcohol-induced chronic pancreatitis (CMS/HCC) Social History Tobacco [...] Clinical Support [facility] [address] [place] [phone] Ena Grant RN 02/16/2025 11:00 AM EDT Office Visit [facility] [address] [place] [phone] documented as of this encounter Visit Diagnoses Diagnosis Alcohol-induced chronic pancreatitis (CMS/HCC) Chronic pancreatitis documented in this encounter Additional Health Concerns Assessment Noted Time PHQ-9 Depression Total Score: 22 025 10:04 AM EST documented as of this encounter Care Teams Arboreal Scientist Relationship Specialty Start Date End Date Ibeth Lassiter MD [address] [place] [phone] PCP - General Family Medicine 12/16/21 10/01/24 Amber Marie FNP [address] [place] [address] PCP - General Family Medicine 10/02/24 10/08/24 Bailee Lewis MD [address] [place] [address] PCP - General Family Medicine 10/09/24 10/12/24 Ibeth Lassiter MD [address] [place] [address] PCP - General Family Medicine 10/13/24 11/13/24 Bailee Lewis MD [address] [place] [address] PCP - General Family Medicine 11/14/24 documented as of this encounter
--- OUTSIDE RECORDS SUMMARY | 2025-01-26 18:24 | XMS_ITS | Encounter Summary ---
Author Organization [employer] Address [address] [place] [address] 7 [place] [address] Care Team Providers Care Domestic Freight Forwarder Name Role Phone Katelyn Mariee JIMENEZ Primary Care Provider [phone] Bailee Lewis MD Primary Care Provider [phone] Ibeth Lassiter MD Primary Care Provider [phone] Bailee Lewis MD Primary Care Provider [phone] Reason for Visit * Reason Onset Date Comments Med Refill 10/05/2024 Encounter Details Date Type Department Care Team (Late st Contact Info) Description 10/05/2024 Refill [facility] [address] [place], [place] [phone] Ibeth Lassiter MD [address] [place], [place] [phone] Alcohol-induced chronic pancreatitis (CMS/HCC) Social History Tobacco [...] Description 02/11/2025 2:30 PM EDT Clinical Support [facility] [address] [place] [id number] Ena Grant RN 02/16/2025 11:00 AM EDT Office Visit [facility] [address] [place] [phone] documented as of this encounter Visit Diagnoses Diagnosis Alcohol-induced chronic pancreatitis (CMS/HCC) Chronic pancreatitis documented in this encounter Additional Health Concerns Assessment Noted Time PHQ-9 Depression Total Score: 22 025 10:04 AM EST documented as of this encounter Care Teams Domestic Freight Forwarder Relationship Specialty Start Date End Date Amber Marie FNP [address] [place] [address] PCP - General Family Medicine 10/02/24 10/08/24 Bailee Lewis MD [address] [place] [address] PCP - General Family Medicine 10/09/24 10/12/24 Ibeth Lassiter MD [address] [place] [address] PCP - General Family Medicine 10/13/24 11/13/24 Bailee Lewis MD [address] [place] [address] PCP - General Family Medicine 11/14/24 documented as of this encounter
--- OUTSIDE RECORDS SUMMARY | 2025-01-26 18:24 | XMS_ITS | Encounter Summary ---
Author Organization [employer] Address [address] [facility] [address] [place] [address] Care Team Providers Care Microfilm Camera Operator Name Role Phone Ibeth Lassiter MD Primary Care Provider [phone] Amber Marie Primary Care Provider [phone] Bailee Lewis MD Primary Care Provider [phone] Ibeth Lassiter MD Primary Care Provider [phone] Bailee Lewis MD Primary Care Provider [phone] Reason for Visit * Reason Onset Date Comments Medication Question 09/23/2024 Encounter Details Date Type Department Care Team (Late st Contact Info) Description 09/23/2024 Telephone [facility] [address] [place] [address] Ibeth Lassiter MD [address] [place], [place] [phone] Medication Question Social History Tobacco Use Types [...] is your housing situation today? I have osbeida montes 11/01/[address] you [...] the past 12 months, has t he [employer], gas, oil or water company threatened to [...] a phone call from a nurse fransisco dunnailynguillermo that pt is supposed to be on [...] Med name (morphine) Please return call to [facility] [phone] documented in this encounter Plan of Treatment Upcoming Encounters Date Type Department Care Team (Late st Contact Info) Description 02/11/2025 2:30 PM EDT Clinical Support [address] [address] Ena Grant, RN 02/16/2025 11:00 AM EDT Office Visit [address] [address] documented as of this encounter Visit Diagnoses Not on filedocumented in this encounter Additional Health Concerns Assessment Noted Time PHQ-9 Depression Total Score: 025 10:04 AM EST documented as of this encounter Care Teams Microfilm Camera Operator Relationship Specialty Start Date End Date Ibeth Lassiter MD [address] [place] [address] PCP - General Family Medicine 12/16/21 10/01/24 Amber Marie FNP [address] [place] [address] PCP - General Family Medicine 10/02/24 10/08/24 Bailee Lewis MD [address] [place] [address] PCP - General Family Medicine 10/09/24 10/12/24 Ibeth Lassiter MD [address] [place] [address] PCP - General Family Medicine 10/13/24 11/13/24 Bailee Lewis MD [address] [place] [address] PCP - General Family Medicine 11/14/24 documented as of this encounter
--- OUTSIDE RECORDS SUMMARY | 2025-01-26 18:24 | XMS_ITS | Encounter Summary ---
Author Organization [employer] Address [address] [facility] [address] [place] [address] Care Team Providers Care Climatology Teacher Name Role Phone Bailee Lewis MD Primary Care Provider [phone] Encounter Details Date Type Department Care Team (Latest Contact Info) Description 01/26/2025 Travel Social History Tobacco Use Types Packs/Day [...] with others, in a hotel, in a halfway, living outside on the street, on a [...] Description 02/11/2025 2:30 PM EDT Clinical Support [facility] [address] [place] [address] Ena Grant RN 02/16/2025 11:00 AM EDT Office Visit [facility] [address] [place] [address] documented as of this encounter Visit Diagnoses Not on filedocumented in this encounter Additional Health Concerns Assessment Noted Time PHQ-9 Depression Total Score: 17 025 8:35 AM EDT documented as of this encounter Care Teams Climatology Teacher Relationship Specialty Start Date End Date Bailee Lewis MD [address] [place] [address] PCP - General Family Medicine 11/14/24 documented as of this encounter
--- OUTSIDE RECORDS SUMMARY | 2025-01-26 18:25 | XMS_ITS | Clinical Summary ---
Author Organization [employer] Address [address] [place] [address] Care Team Providers Care Gas Adjuster Name Role Phone Bailee Lewis MD Primary Care Provider [phone] Allergies Active Allergy Reactions Criticality Noted Date Comments Penicillins Hives,Shortness of breath High 12/20/2021 Product containing penicillin (product) Medications * This document contains information received [...] becomes available. 2 each 024 2024 Active ondansetron (Zofran) 4 MG tablet Take 1 tablet (4 mg) by mouth every 8 (eight) hours if needed for nausea or vomiting. 10 tablet 025 Active pregabalin (Lyrica) 300 MG capsuleIndication s:Chronic abdominal pain Take 1 capsule (300 mg) by mouth 2 times daily. 60 capsule 1 Active Creon 32242-79583 units capsuleIndication s:Alcohol-induced chronic pancreatitis (CMS/HCC) Take 1 capsule by mouth with breakfast, with lunch, and with evening meal. 270 capsule 3 Active ibuprofen 800 MG tabletIndications :Alcohol-induced chronic pancreatitis (CMS/HCC) TAKE 1 TABLET BY MOUTH ONCE A DAY NEEDED 60 tablet 1 Active sertraline (Zoloft) 100 MG tabletIndications :Severe episode of recurrent major depressive disorder, without psychotic features (CMS/HCC),Anxiety Take 1 tablet (100 mg) by mouth Once per day. 90 tablet 3 025 2025 Active OLANZapine zydis (ZyPREXA ZYDIS) 20 MG disintegrating tablet TAKE 1 TABLET BY MOUTH AT BEDTIME 30 tablet 2 Active pantoprazole (ProtoNix) 40 MG EC tabletIndications :Alcohol-induced chronic pancreatitis (CMS/HCC) Take 1 tablet (40 mg) by mouth before breakfast. Do not crush, chew, or split. 90 tablet 3 Active buprenorphine (Butrans) 10 MCG/HRIndications :Chronic pancreatitis, unspecified pancreatitis type (CMS/HCC) Place 1 patch on the skin 1 (one) time per week for 28 days. Do not start before January 27, 2025. 4 patch 025 2024 Active HYDROcodone-aceta minophen (Shannon) 5-325 MG tabletIndications :Alcohol-induced chronic pancreatitis (CMS/HCC) Take 2 tablets by mouth every 6 (six) hours if needed for severe pain for up to 7 days. 56 tablet 025 2024 Active docusate sodium (Colace) 100 MG capsule Take 1 capsule (100 mg) by mouth 2 times daily for 10 days. 20 capsule 025 2024 Active Iron, Ferrous Sulfate, 325 (65 Fe) MG tablet Take 1 tablet by mouth Once per day. 90 tablet 3 Active OLANZapine zydis (ZyPREXA ZYDIS) 20 MG disintegrating tablet TAKE 1 TABLET BY MOUTH AT BEDTIME 30 tablet 2 024 2024 Discontinued(R eorder (will not trigger notification to Pharmacy)) pantoprazole (ProtoNix) 40 MG EC tablet Take 1 tablet by mouth before breakfast. Do not crush, chew, or split. 2024 Discontinued(R eorder (will not trigger notification to Pharmacy)) Creon 10577-73258 units capsule Take 1 capsule by mouth with breakfast, with lunch, and with evening meal. 270 capsule 025 2024 Discontinued(R eorder (will not trigger notification to Pharmacy)) ibuprofen 800 MG tabletIndications :Pain of upper abdomen TAKE 1 TABLET BY MOUTH ONCE A DAY NEEDED 60 tablet 2024 Discontinued(R eorder (will not trigger notification to Pharmacy)) hydrOXYzine pamoate (Vistaril) 50 MG capsuleIndication s:Anxiety Take 2 capsules (100 mg) by mouth if needed in the morning and at bedtime for anxiety. 120 capsule 2 2024 Discontinued(T herapy completed) sertraline (Zoloft) 100 MG tabletIndications :Severe episode of recurrent major depressive disorder, without psychotic features (CMS/HCC),Anxiety Take 1 tablet (100 mg) by mouth Once per day. 90 tablet 3 2024 Discontinued(R eorder (will not trigger notification to Pharmacy)) morphine CR (MS Contin) 15 MG 12 hr tabletIndications :Chronic abdominal pain,History of pancreatitis,Alco hol-induced chronic pancreatitis (CMS/HCC),Long-te rm current use of opiate analgesic Take 1 tablet (15 mg) by mouth 2 times daily. 56 tablet 025 2024 Discontinued(I neffective) oxyCODONE (Roxicodone) 10 MG immediate release tabletIndications :Alcohol-induced chronic pancreatitis (CMS/HCC) Take 1 tablet (10 mg) by mouth every 8 (eight) hours if needed for severe pain for up to 28 days. Replacing MS IR 84 tablet 025 2024 Discontinued(T herapy completed) pantoprazole (ProtoNix) 40 MG EC tabletIndications :Alcohol-induced chronic pancreatitis (CMS/HCC) Take 1 tablet (40 mg) by mouth before breakfast. Do not crush, chew, or split. 90 tablet 025 2024 Discontinued(R eorder (will not trigger notification to Pharmacy)) buprenorphine (Butrans) 5 MCG/HRIndications :Alcohol-induced chronic pancreatitis (CMS/HCC) Place 1 patch on the skin 1 (one) time per week. 4 patch 5 025 2024 Discontinued(D ose adjustment) HYDROcodone-aceta minophen (Shannon) 5-325 MG tabletIndications :Alcohol-induced chronic pancreatitis (CMS/HCC) Take 2 tablets by mouth every 6 (six) hours if needed for severe pain for up to 7 days. 56 tablet 025 2024 Discontinued(R eorder (will not trigger notification to Pharmacy)) HYDROcodone-aceta minophen (Shannon) 5-325 MG tabletIndications :Alcohol-induced chronic pancreatitis (CMS/HCC) Take 2 tablets by mouth every 6 (six) hours if needed for severe pain for up to 7 days. 56 tablet 025 2024 Discontinued(R eorder (will not trigger notification to Pharmacy)) Active Problems Problem Noted Date Diagnosed Date Anxiety 01/14/2025 Chronic GERD 11/14/2024 Pancreatic steatorrhea 11/14/2024 Transaminitis 11/14/2024 Long-term current use of opiate analgesic 2024 Overview (11/16/2024): Medication: MSIR 15mg Q8H PRN, MS Contin 15mg BID Indication: chronic pancreatitis Last ACID PUMPER Agreement: 09/2024, needs to switch to Dr Lewis Other factors: multiple ER visits and hospitalizations in 2024 for same H. pylori infection 09/22/2024 Hematemesis 06/02/2024 Assessment [...] powder Senna-docusate sodium (Senokot-S) 8.6-50 MG tablet Other chronic pain 12/03/2023 Chronic pancreatitis 11/30/2023 Assessment & Plan (01/14/2025 7:15 AM EDT): Pain regimen not working and patient not taking as prescribed due to pain Also missing adjuvants of mood stabilization with Zyprexa and Zoloft After long discussion of possibilities, will trial Butrans patch with Vicodin for breakthrough Stressed importance of working closely with Ena and me to find a regimen that she takes regularly Also stressed importance of self management, complete alcohol abstinence, taking Creon due to pancreatic insufficiency, and reporting symptoms to me Assessment & Plan (11/16/2024 7:05 PM EDT): Continue bland diet, heavy hydration Complete abstinence from alcohol F/u with [facility] for [place] imaging review and potential surgical intervention if pancreatic duct stricture is present Assessment & Plan (03/19/2024 10:02 AM EDT): Patient reports has appt with GI today, aware she can't take tramadol if she is on morphine, if continues will need to wean off rapidly her opiates due to inappropriate use. Will cont current dose and cont decrease next month of 10%. History of pancreatitis 10/25/2023 History of substance abuse 09/24/2023 Overview (09/24/2023): [...] intervention , Patient to reach out to [facility] team as needed, Comply with medication , Patient to engage in OP therapy , and Patient to reach out to [facility] as needed. Referral for Tight Cooper will be placed. PVT (portal vein thrombosis) 09/18/2023 Overview (09/24/2023): [...] refer to hematology to assist with management. 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 Reproduced by examination, likely MSK Livedo reticularis 09/14/2022 Anemia 01/25/2022 Assessment & Plan (11/08/2023 4:27 [...] hemoglobin electrophoresis. Will also schedule appointment with [facility] licensed direct entry midwife for AUB. Assessment & Plan (10/23/2022 4:36 PM EDT): Will send labs to recheck levels. Assessment & Plan (06/29/2022 5:12 PM EST): Will check levels, if improved discontinue iron supplementation Delivery of by section 2019 Overview (06/28/2022): Last Assessment & Plan: Will recheck CBC given her low H/H throughout . Discussed pelvic rest for 2 wks to allow additional time to heal given her current sx, and will re-eval at her next appt. Return precautions discussed. MDD (major depressive disorder), recurrent episo de, severe 04/15/2018 Assessment & Plan (12/24/2024 8:56 AM EDT): During IBH Consult Deepti presenting with depressed mood, Tearful, crying spells , hopelessness, irritable mood, loss of interests/pleasure , sense of isolation/loneliness , isolating, change in appetite or weight reduce appetite, changes in sleep difficulty falling asleep and difficulty staying asleep , fatigue/loss of energy, worthlessness, inappropriate/excessive guilt , difficulty concentrating, indecisiveness; for a period of 18+ mo, for most or all symptoms in the context of family issues and illness or family illness. Pt reports going through a lot of changes. She has chronic medical conditions that require several ER visits. Patient also associates her sxs with family altercations. Her sense of otto and spirituality is strong and identify as main strength for sxs. Currently living with in laws due to the severity of her medical health. Assessment & Plan (11/16/2024 7:05 PM EDT): Restart Zoloft 100mg daily Pt would like [facility] to be called to her Assessment & Plan (06/02/2024 1:44 PM EST): [...] refilled albuterol. 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 She was admitted from 10/12-10/14. CT scan deferred due to numerous CT scans in the past. Pain control was resumed during hospitalization. Discharged home to follow up with GI. Patient to continue current pain management, renewed creon. Elevated liver transaminase level 09/28/2024 11/16/2024 Headache 02/19/2024 01/07/2025 Acute epigastric pain 10/25/20232024 Failure to thrive in adult 10/25/2023 0 11/16/2024 Assessment & Plan (11/08/2023 4:21 PM EDT): [...] small reintroduction of liquid meals for nutrition. Acute hemorrhagic pancreatitis 09/18/2023 11/16/2024 Hyperglycemia 09/18/2023 11/16/2024 Assessment & Plan (09/24/2023 4:41 PM EDT): Ordering blood glucose machine for at home monitoring while on medications and recovery of pancreatitis. Alcohol use disorder 09/18/2023 025 Acute necrotizing pancreatitis 09/03/2023 11/16/2024 Assessment & Plan (02/29/2024 11:33 AM EDT): [...] decr frequency to q6hrs. Physical exam 03/19/2023 11/16/2024 Assessment & Plan (03/05/2024 1:54 PM EDT): 28 y.o. who was seen today for annual physical examination Vaccines reviewed Assessment & Plan (03/19/2023 6:06 PM EDT): 27 y.o. female here for CPE Pap smear UTD Declined influenza and COVID 19 vaccination Not a smoker Counseled on healty diet and physical activity Hx of Anxiety, medications adjusted. Costochondritis 06/29/2022 11/16/2024 Assessment & Plan (06/29/2022 5:12 PM EST): Likely etiology of chest wall pain, will send indomethacin and f/up if no improvement of symptoms, Will send CXR. KENZIE (generalized anxiety disorder) 06/29/2022 01/14/2025 Assessment & Plan (09/18/2023 1:20 PM EDT): [...] intervention , Patient to reach out to [facility] team as needed, Comply with medication , Patient to engage in OP therapy , and Patient to reach out to [facility] as needed. Referral for Tight Cooper will be placed. Assessment & Plan (03/30/2023 [...] QID. RX sent. Continue Effexor, spoke with [facility] about helping with getting a therapist for this patient depression 10/02/20202024 Overview (06/28/2022): Last Assessment & Plan: Her post- depression has been persistent and complicated into mild MDD. She feels that she has a good therapeutic relationship with the in-home therapist who has been assigned by [facility] to her child for bipolar disorder [...] mg daily -Follow up in 4 weeks Encounters * This document contains information received from the source organization and may not represent a complete record from that organization. Date Type Department Care Team Description 01/26/2025 11:00 AM EDT Office Visit [facility] [place] [address] Arrived 01/26/2025 Orders Only GENERIC EXTERNAL DATA DEPARTMENT Provider, Generic External Data 01/26/2025 Patient Outreach [facility] [place] [address] Bailee Lewis MD Care Coordination ([facility] Rain Kauffman, Program graduation) 01/26/2025 Travel 01/25/[address] [facility] [place] [address] Bailee Lewis MD Alcohol-induced chronic pancreatitis (CMS/HCC) 01/24/2025 Orders Only GENERIC EXTERNAL DATA DEPARTMENT Provider, Generic External Data 01/23/[address] [facility] [place] [address] Bailee Lewis MD Alcohol-induced chronic pancreatitis (CMS/HCC) 01/21/2025 10:00 AM EDT Clinical Support [facility] [place] [address] Ena Grant, RN Long-term current use of opiate analgesic (Primary Dx) 01/21/[address] [facility] [place] [address] Ena Grant, sales professional pancreatitis, unspecified pancreatitis type (CMS/HCC) (Primary Dx) 01/21/2025 Travel 01/19/2025 Travel 01/18/[address] [facility] [place] [address] Bailee Lewis MD Alcohol-induced chronic pancreatitis (CMS/HCC) 01/15/2025 Telephone [facility] [place] [address] Bailee Lewis MD Nurse Triage 01/14/2025 11:00 AM EDT Clinical Support [facility] [place] [address] Ena Grant RN Long-term current use of opiate analgesic (Primary Dx) 01/14/2025 Travel 01/14/2025 Results Follow-Up [facility] [place] [address] Bailee Lewis MD CBC auto differential, Comprehensive Metabolic Panel, Lipase 01/13/2025 Orders Only GENERIC EXTERNAL DATA DEPARTMENT Provider, Generic External Data 01/13/2025 Patient Outreach [facility] [place] [address] Bailee Lewis MD 01/12/2025 11:00 AM EDT Office Visit [facility] [place] [place] [address] Bailee Lewis MD Severe episode of recurrent major depressive disorder, without psychotic features (CMS/HCC); Anxiety; Alcohol-induced chronic pancreatitis (CMS/HCC) 01/12/2025 Telephone [facility] [place] [place] [address] Bailee Lewis MD Medication Question 01/12/2025 Travel 01/11/2025 Refill [facility] [place] [address] Katt Woods MD Chronic abdominal pain 01/07/2025 Orders Only [address] [address] Bailee Lewis MD Alcohol-induced chronic pancreatitis (CMS/HCC) (Primary Dx) 01/07/2025 Orders Only [facility] External Provider, [facility] 01/05/2025 Telephone [facility] [place] [address] Bailee Lewis MD Appointment Request; Weekly ACID PUMPER Visits Wed's @ 12p; Weekly pain medication refill after ACID PUMPER visit 12/30/[address] [address] Bailee Lewis MD Medication Question 12/30/[address] [address] Bailee Lewis MD Chart Prep 12/29/[address] [address] Bailee Lewis MD Insurance 12/24/2024 Patient Outreach [address] [address] Bailee Lewis MD 12/23/2024 Orders Only GENERIC EXTERNAL DATA DEPARTMENT Provider, Generic External Data 12/22/2024 1:30 PM EDT Clinical Support [address] [address] Ena Grant, EL Long-term current use of opiate analgesic (Primary Dx) 12/22/[address] [address] Ena Grant, RN MS COntin & Oxy count discrep 12/22/2024 Travel 12/22/2024 Patient Outreach [address] [address] Bailee Lewis MD Care Coordination ([facility]/W Lyle Obrien f/u call) 12/22/2024 Patient Outreach [facility] [address] [place] [address] Bailee Lewis MD Care Coordination ([facility] f/u call/ program graduation) 12/19/2024 Orders Only [address] [address] Bailee Lewis MD Alcohol-induced chronic pancreatitis (CMS/HCC) (Primary Dx) 12/18/[address] [address] Bailee Lewis MD Alcohol-induced chronic pancreatitis (CMS/HCC) (Primary Dx) 12/15/[address] [address] Ena Grant, sales professional abdominal pain; History of pancreatitis; Alcohol-induced chronic pancreatitis (CMS/HCC); Long-term current use of opiate analgesic 12/15/2024 Patient Outreach [facility] [address] [place] [address] Bailee Lewis MD 12/15/2024 Patient Outreach [address] [address] Bailee Lewis MD Transition Of Care (Tcm) (HDF scheduled and SDOH screening completed on 11/25/24) 12/10/[address] [address] Bailee Lewis MD Chronic abdominal pain; History of pancreatitis; Alcohol-induced chronic pancreatitis (CMS/HCC); Long-term current use of opiate analgesic 12/09/2024 Patient Outreach [address] [address] Bailee Lewis MD Care Coordination ([facility]W Jacob Obrienoh f/u call) 12/09/2024 Patient Outreach [facility] [address] [place] [address] Bailee Lewis MD Care Coordination (C3CM f/u call) 12/08/2024 Patient Outreach [facility] [address] [place] [address] Bailee Lewis MD 12/04/2024 Patient Outreach [address] [address] Bailee Lewis MD 12/04/2024 Orders Only [address] [address] Katt Woods MD Chronic abdominal pain 12/04/[address] [address] Bailee Lewis MD Med Refill 12/04/[address] [address] Ena Grant, EL Pt NCNS for ACID PUMPER RV appt this morning 11/25/2024 Patient Outreach [address] [address] Bailee Lewis MD Care Coordination ([facility]/W YIFAN Obrien SDOH assessment completed) 11/24/2024 Patient Outreach [address] [address] Bailee Lewis MD Care Coordination ([facility]3/CHW YIFAN Obrien to complete SDOH assessment_lvm ) 11/24/2024 Patient Outreach [facility] [address] [place] [address] Bailee Lewis MD Care Coordination (C3 f/u call) 11/21/2024 Patient Outreach [facility] [address] [place] [address] Bailee Lewis MD 11/17/[address] [address] Merline Samuels RN ER Follow-up 11/14/2024 9:00 AM EDT Office Visit [address] [address] Bailee Lewis MD Alcohol-induced chronic pancreatitis (CMS/HCC) (Primary Dx); Exercise-induced asthma; Alcohol use, unspecified, in remission; Severe episode of recurrent major depressive disorder, without psychotic features (CMS/HCC); Chronic abdominal pain; History of pancreatitis; Anxiety; Long-term current use of opiate analgesic 11/14/2024 Travel 11/13/[address] [address] Ibeth Lassiter MD Requesting call back; Schedule ACID PUMPER RV appt 11/13/[address] [address] Ibeth Lassiter MD chart prep 11/12/[address] [address] Ibeth Lassiter MD Medication Question 11/11/2024 Refill [facility] [address] [place] [address] Ibeth Lassiter MD Alcohol-induced chronic pancreatitis (CMS/HCC) 11/10/[address] [address] Ibeth Lassiter MD Medication Question 11/07/2024 Patient Outreach [facility] [address] [place] [address] Ibeth Lassiter MD Care Coordination (C3CM f/u call) 11/06/[address] [address] Ibeth Lassiter MD ED status check 11/05/2024 Patient Outreach [address] [address] Ibeth Lassiter MD Pre-visit Planning ([facility] screening completed on 10/15/2024) 11/05/2024 Telephone [facility] [address] [place] [address] Ibeth Lassiter MD Med Refill 11/05/2024 Refill [facility] [address] [place] [address] Solis Taylor MD Alcohol-induced chronic pancreatitis (CMS/HCC) 11/03/2024 Patient Outreach [facility] [address] [place] [address] Ibeth Lassiter MD 10/30/2024 2:00 PM EDT Clinical Support [facility] [address] [place] [address] Anastasiia Ocampo RN Chronic pancreatitis, unspecified pancreatitis type (CMS/HCC) 10/30/[address] [address] Ibeth Lassiter MD Nurse Triage 10/30/2024 Travel 10/30/2024 Refill [facility] [address] [place] [address] Luciano Flores MD Pain of upper abdomen 10/30/2024 Refill [facility] [address] [place] [address] Ibeth Lassiter MD Alcohol-induced chronic pancreatitis (CMS/HCC); Pain of upper abdomen from Last 3 Months Immunizations Immunization Administration Dates Next Due DTaP, 5 pertussis antigens 12/24/2000,,02/12/1996,12/12,1995 HPV, Quadrivalent 01/10/2008,10/07/2007,02/07/20 07 Hep B, Adolescent or Pediatric 02/12/1996,1995,1995 Hib (HbOC) 01/27/1997, 6,1995,11/24 IPV 12/24/2000, 6,1995,10/24 Influenza, Recombinant, inje ctable, preservative free 07/23/2009 Influenza, live, intranasal 04/04/2011 Influenza, seasonal, injecta ble, preservative free 07/05/2024,05/15/2014 MMR 09/08/1999,01/27/1997 Meningococcal MPSV4 07/08/2008 Novel [id number], all formulations 07/23/2009 Rho(D)-IG IM 05/22/2020,03/20/2020,11/16/2019 Tdap [...] with others, in a hotel, in a nursing home, living outside on the street, on [...] Sign Reading Time Taken Comments Blood Pressure 110/60 11/14/2024 9:14 AM EDT Pulse 84 11/14/2024 9:14 AM EDT Temperature 36.3 C (97.3 F) 11/14/2024 9:14 AM EDT Respiratory Rate 18 11/14/2024 9:14 AM EDT Oxygen Saturation 98% 10/22/2024 10:06 AM EDT Inhaled Oxygen Concentration - - Weight 65.3 kg (144 lb) 11/14/2024 9:14 AM EDT Height 165.1 cm (5' 5 ) 11/14/2024 9:14 AM EDT Body Mass Index 23.96 11/14/2024 9:14 AM EDT Plan of Treatment Upcoming Encounters Date Type Department Care Team (Late st Contact Info) Description 02/11/2025 2:30 PM EDT Clinical Support [facility] [address] [place], [place] [id number] Ena Grant RN 02/16/2025 11:00 AM EDT Office Visit [facility] [address] [place] [address] Health Maintenance Due Date Last Done Comments Family Planning (PISQ) 2010 COVID-19 Vaccine ( season) 2024 Influenza Vaccine (#1) 2025 , 05/15/2014, 04/04/2011, Additional history exists Diabetes: Hemoglobin A1C 02/19/2025 025, 02/29/2024, 09/18/2023 Lipid Panel 02/28/2025 02/29/2024 Pneumococcal Vaccine: Pediatrics (0 to 5 Years) and At-Risk Patients (6 to 49) Years (1 of 2 - PCV) 02/28/2025 Postponed from 2014 (Patient Refused) Depression Monitoring 06/26/2025 12/24/2024, 025 Alcohol/Substance Use Screening 09/26/2025 09/26/2024 Disability Screening 09/26/2025 09/26/2024 SDOH Screening 11/25/2025 11/25/2024 Pap Smear 11/28/2025 11/28/2022 Tobacco Screening 01/12/2026 01/12/2025 DTaP/Tdap/Td Vaccines (11 - Td or Tdap) [...] Completed 01/25/2022 Hepatitis C Screening Completed 10/26/2022 Diabetes: Foot Exam Discontinued Diabetes: Urine Protein Screening Discontinued Eye Exam Discontinued Hepatitis A Vaccines Aged Out No long er eligible based on patient's age to complete this topic Meningococcal B Vaccine Aged Out No l onger eligible based on patient's age to complete this topic RSV under 20 months Aged Out No longe r eligible based on patient's age to complete this topic Rotavirus Vaccines Aged Out No longer eligible based on patient's age to complete this topic Procedures Procedure Name Priority Date/Time Associated Diagnosis Comments LIPASE Routine 01/26/2025 4:32 PM EDT MAGNESIUM Routine 01/26/2025 4:32 PM EDT COMPREHENSIVE METABOLIC PANEL Routine 01/26/2025 4:32 PM EDT CBC WITH AUTO DIFFERENTIAL Routine 01/26/2025 4:[address] ABDOMEN PELVIS W CONTRAST Routine 01/24/2025 11:21 PM EDT ETHANOL Routine 01/24/2025 8:35 PM EDT HCG, TOTAL, QN Routine 01/24/2025 8:35 PM EDT LIPASE Routine 01/24/2025 8:35 PM EDT MAGNESIUM Routine 01/24/2025 8:35 PM EDT COMPREHENSIVE METABOLIC PANEL Routine 01/24/2025 8:35 PM EDT CBC WITH AUTO DIFFERENTIAL Routine 01/24/2025 8:35 PM EDT POCT ANGE-14 URINE DRUG SCREEN Routine 01/21/2025 12:24 PM EDT Long-term current use of opiate analgesic POCT ANGE-14 URINE DRUG SCREEN Routine 01/14/2025 12:32 PM EDT Long-term current use of opiate analgesic LIPASE Routine 01/13/2025 9:37 PM EDT COMPREHENSIVE METABOLIC PANEL Routine 01/13/2025 9:37 PM EDT CBC WITH AUTO DIFFERENTIAL Routine 01/13/2025 9:37 PM EDT MR ABDOMEN W AND WO CONTRAST Routine 01/07/2025 10:28 AM EDT URINALYSIS WITH REFLEX MICROSCOPIC Routine 12/23/2024 10:49 PM EDT HCG, TOTAL, QN Routine 12/23/2024 7:47 PM EDT LIPASE Routine 12/23/2024 7:47 PM EDT COMPREHENSIVE METABOLIC PANEL Routine 12/23/2024 7:47 PM EDT CBC WITH AUTO DIFFERENTIAL Routine 12/23/2024 7:47 PM EDT POCT ANGE-14 URINE DRUG SCREEN Routine 12/22/2024 1:53 PM EDT Long-term current use of opiate analgesic POCT ANGE-14 URINE DRUG SCREEN Routine 10/30/2024 2:11 PM EDT Chronic pancreatitis, unspecified pancreatitis type (CMS/HCC) POCT GLYCATED HEMOGLOBIN, TOTAL Routine 08/19/2024 1:34 PM EDT Alcohol-induced chronic pancreatitis (CMS/HCC) LIPID PANEL, STANDARD Routine 02/29/2024 10:45 [...] Maintenance Results * (ABNORMAL) CBC auto differential (01/26/2025 4:32 PM EDT) Only the most recent of4 resultswithin the time period is included. White Blood Count 9.3 4.8 - 10.8 X10*3/uL [facility] Red Blood Count 3.95(L) 4.20 - 5.50 X10*6/uL [facility] Hemoglobin 9.4(L) 12.0 - 16.0 g/dl [facility] Hematocrit 30.0(L) 37.0 - 47.0 % [facility] Mean Corpuscular Volume 75.9(L) 80.0 - 98.0 fL [facility] Mean Corpuscular Hemoglobin 23.8(L) 27.0 - 33.0 pg [facility] Mean Corpuscular HGB Conc 31.3 31.0 - 35.0 g/dl [facility] Red Cell Distribution Width 16.7(H) 11.0 - 16.0 % [facility] Platelet Count 224 160 - 400 X10*3/uL [facility] Mean Platelet Volume 10.6 9.4 - 12.3 fL [facility] Neutrophils Percent Auto 71.6 45 - 73 % [facility] Imm Gran Pct Auto 0.3 0.0 - 0.4 % [facility] Lymphocytes Percent Auto 19.5(L) 20 - 40 % [facility] Monocytes Percent Auto 7.1 2 - 11 % [facility] Eosinophils Percent Auto 1.1 0 - 4 % [facility] Basophils Percent Auto 0.4 0 - 2 % [facility] NRBC Pct Auto 0.0 0.0 - 0.2 /100WBC [facility] Neutrophils Absolute Auto 6.7 2.0 - 8.3 x10*3/uL [facility] Imm Gran Abs Auto 0.03 0.00 - 0.03 X10*3/uL [facility] Lymphocytes Absolute Auto 1.8 1.2 - 4.9 X10*3/uL [facility] Monocytes Absolute Auto 0.7 0.1 - 1.2 X10*3/uL [facility] Eosinophils Absolute Auto 0.1 0.0 - 0.4 X10*3/uL [facility] Basophils Absolute Auto 0.0 0.0 - 0.2 X10*3/uL [facility] NRBC Abs Auto 0.000 0.0 - 0.012 X10*3/uL [facility] 01/26/2025 4:32 PM EDT 01/26/2025 4:42 PM EDT us Generic External Data Provider LAB BLOOD ORDERAB LES Final Result [facility] [address] [place] [phone] * Magnesium (01/26/2025 4:32 PM EDT) Only the most recent of2 resultswithin the time period is included. Magnesium 1.8 1.6 - 2.6 mg/dL [facility] 01/26/2025 4:32 PM EDT 01/26/2025 4:42 PM EDT Generic External Data Provider LAB BLOOD ORDERAB LES Final Result Performing Organization Address City/[facility]/ZIP Co de Phone Number [facility] [address] [place] [phone] * (ABNORMAL) Lipase (01/26/2025 4:32 PM EDT) Only the most recent of4 resultswithin the time period is included. Pathologist [facility] Lipase 6(L) 8 - 78 U/L [facility] 01/26/2025 4:32 PM EDT 01/26/2025 4:42 PM EDT Generic External Data Provider LAB BLOOD ORDERAB LES Final Result Performing Organization Address [facility] de Phone Number [facility] [address] [place] [phone] * (ABNORMAL) Comprehensive Metabolic Panel (01/26/2025 4:32 PM EDT) Only the most recent of4 resultswithin the time period is included. Pathologist [facility] Sodium 139 135 - 145 mmol/L [facility] Potassium 3.8 3.3 - 5.1 mmol/L [facility] Chloride 111(H) 96 - 108 mmol/L [facility] Carbon Dioxide 20(L) 22 - 29 mmol/L [facility] Anion Gap 12 12 - 20 [facility] Urea Nitrogen (BUN) 6(L) 9 - 16 mg/dL [facility] Creatinine, Serum 0.63 0.5 - 1.4 mg/dL [facility] Creatinine Clr Calc Pharmacy 129.4 [facility] Comment:Provided height and weight: 165.1 cm,70 kg.eGFR (calculated from the MDRD study equation) and eCrCl(calculated from the Cockcroft-Gault equation) are based ondifferent parameters and may not yield comparable results.If eCrCl result is absurd, please check patient'sheight/weight. Estimated Glomerular Filt Rate >60 [facility] Comment:Chronic Kidney Disea se: Estimated GFR < 60 mL/min/1.92s7Pwxdbn Kidney Disease: Estimated GFR < 15 mL/min/1.73m2 Glucose 116(H) 60 - 115 mg/dL [facility] Calcium 8.4 8.4 - 10.2 mg/dL [facility] Bilirubin, Total 0.3 0.0 - 1.0 mg/dL [facility] Aspartate Amino Transferase 63(H) 5 - 31 U/L [facility] Alanine Aminotransferase 81(H) 0 - 31 U/L [facility] Total Protein 6.6 6.5 - 8.0 g/dL [facility] Albumin Level 4.1 3.5 - 5.0 g/dL [facility] Alkaline Phosphatase 137(H) 39 - 117 U/L [facility] 01/26/2025 4:32 PM EDT 01/26/2025 4:42 PM EDT us Generic External Data Provider LAB BLOOD ORDERAB LES Final Result Performing Organization Address City/State/[facility] Co de Phone Number [facility] [address] [place] [phone] * CT Abdomen Pelvis w/ Contrast (01/24/2025 11:21 PM EDT) Anatomical Region Laterality Modality Body, Pelvis, Abdomen Computed T omography 01/24/2025 11:2 1 PM EDT Narrative 01/24/2025 11:23 PM EDT [address] [address] [address] Scan Report Signed Patient: Deepti Aguilar MR#: [id number] 5 : 1995 Acct:[id number] Age/Sex: 29 / F ADM Date: 01/24/25 Loc: HO.ED Attending Dr: Ordering Physician: Katarzyna Hui Date of Service: 01/24/25 Procedure(s): CT abdomen pelvis w IV con Accession Number(s): [id number] cc: Katarzyna Hui; Bailee Lewis Report Number: [id number]: Total DLP = 567.00 mGy-cm CLINICAL HISTORY: [...] in OV> 01/24/252321 DD/ 20 TD/TT: 01/24/252320 Compounding Pharmacy Technician: Procedure Note Donotuseinterpreter, Image - 01/24/[address] [place] [address] [address] Scan Report Signed Patient: Tori Aguilar#: [id number] 5 : 1995Acct:[id number] Age/Sex: 29 / FADM Date: 01/24/25 Loc: .ED Attending Dr: Ordering Physician: Katarzyna Hui Date of Service: 01/24/25 Procedure(s): CT abdomen pelvis w IV con Accession Number(s): [id number] cc: Katarzyna Hui; Bailee Lewis Report Number: [id number]: Total DLP = 567.00 mGy-cm CLINICAL HISTORY: [...] in OV> 01/24/252321 DD/ 20 TD/TT: 01/24/252320 Compounding Pharmacy Technician: [facility] External Provider IMG CT PROCEDURES Edited Result - Final * Ethanol (01/24/2025 8:35 PM EDT) Pathologist [facility] ETHANOL (MG/DL) IN SER/PLAS <10 mg/dL [facility] Comment:Serum/plasma ethanol results are to be used formedical/treatment purposes only. 01/24/2025 8:35 PM EDT 01/24/2025 8:38 PM EDT Generic External Data Provider LAB BLOOD ORDERAB LES Final Result [facility] [address] [place] [phone] * hCG, Total, Quantitative (01/24/2025 8:35 PM EDT) Only the most recent of2 resultswithin the time period is included. Pathologist [facility] HCG Quantitative <2 mIU/mL [facility] Comment:Weeks post LMP Appro ximate hCG(Last Menstrual Period) Range (mIU/ml)3 - 4 weeks 9 - 1304 - 5 weeks 75 - 2,6005 - 6 weeks 850 - 20,8006 - 7 weeks 4000 - 100,2007 - 12 weeks 11,500 - 289,92559 - 16 weeks 18,300 - 137,12040 - 29 weeks (2nd trimester) 1,400 - 53,19907 - 41 weeks (3rd trimester) 940 - [...] Provider LAB BLOOD ORDERAB LES Final Result [facility] [address] [place] [phone] * POCT ANGE-14 Urine Drug Screen (01/21/2025 12:24 PM EDT) Only the most recent of4 resultswithin the time period is included. THC Negative Negative Cocaine Screen, Urine Negative [...] procedure / Unknown 01/21/2025 12:24 PM EDT Narrative Ena Grant RN - 01/21/2025 12:24 PM EDT UTOX cup Lot#[id number] Exp. 03/10/26 Internal Pass Control Bailee Lewis MD POINT OF CARE TEST ENTER/EDIT ORDERABLES Final Result * MR Abdomen w/ and w/o Contrast (01/07/2025 10:28 AM EDT) Anatomical Region Laterality Modality Abdomen Magnetic Resonan ce 01/07/2025 10:2 8 AM EDT Narrative 01/07/2025 1:30 PM EDT [place] [address] Magnetic Resonance Report Signed Patient: Deepti Aguilar MR#: [id number] 5 : 1995 Acct:[id number] Age/Sex: 29 / F ADM Date: 01/07/25 Loc: HO.MRI Attending Dr: Arturo Gayle MD Ordering Physician: Arturo Gayle MD Date of Service: 01/07/25 Procedure(s): MR abdomen wo/w con Accession Number(s): [id number] cc: Bailee Lewis; Arturo Gayle MD EXAMINATION: MR ABDOMEN WITHOUT THEN WITH IV CONTRAST HISTORY: NECROTIZING PANCREATITIS COMPARISON: Comparison is made with the prior examination dated 07/06/2024. TECHNIQUE: Axial in and out of phase T1-weighted gradient echo, axial diffusion weighted, and axial and coronal HASTE T2 with fat saturation images were obtained through the abdomen. Subsequently, fat suppressed axial and coronal T1-weighted images were obtained after the intravenous administration of 6.5 mL Gadavist. FINDINGS: Liver: There is diffuse loss of signal intensity in the liver on opposed phase imaging, consistent with steatosis. There is no enhancing liver mass. The hepatic and portal veins are patent. There is no intrahepatic biliary dilatation. Gallbladder/biliary tree: The patient is status post cholecystectomy. The common bile duct is normal in caliber. No intraluminal filling defects are identified to suggest choledocholithiasis. Spleen: The spleen is unremarkable. Pancreas: Again seen is absence of the pancreatic tail and portions of the pancreatic neck. This is likely due to prior necrotic pancreatitis. The pancreatic tissue in the body and head enhances normally. There is mild prominence of the pancreatic duct in the body without change. No enhancing pancreatic mass is identified. Adrenals: The adrenal glands are unremarkable. Kidneys: The kidneys are unremarkable. There is no hydronephrosis. Lymph nodes: There is no retroperitoneal lymphadenopathy in the upper abdomen. Fluid: There is no ascites in the upper abdomen. Visualized bowel: The visualized small and large bowel loops are unremarkable in appearance. Visualized bones: The visualized bones demonstrate normal marrow signal intensity. MR/MR abdomen wo/w con IMPRESSION: 1. 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 Mild prominence of the pancreatic duct in the body without change. 2. Hepatic steatosis. Electronically signed by: Chris Eagle MD 01/07/2025 01:27 PM EDT RP Dictated By: Chris Eagle MD Signed By: <Electronically signed by Chris Eagle MD in OV> 01/07/25 1327 DD/ 1028 TD/TT: 01/07/25 1158 Compounding Pharmacy Technician: Procedure Note Donotuseinterpreter, Image - 01/07/2025 [place] [address] Magnetic Resonance Report Signed Patient: Deepti Aguilar#: [id number] 5 : 1995Acct:[id number] Age/Sex: 29 / FADM Date: 01/07/25 Loc: HO.MRI Attending Dr: Arturo Gayle MD Ordering Physician: Arturo Gayle MD Date of Service: 01/07/25 Procedure(s): MR abdomen wo/w con Accession Number(s): [id number] cc: Bailee Lewis; Arturo Gayle MD EXAMINATION: MR ABDOMEN WITHOUT THEN WITH IV CONTRAST HISTORY: NECROTIZING PANCREATITIS COMPARISON: Comparison is made with the prior examination dated 07/06/2024. TECHNIQUE: Axial in and out of phase T1-weighted gradient echo, axial diffusion weighted, and axial and coronal HASTE T2 with fat saturation images were obtained through the abdomen. Subsequently, fat suppressed axial and coronal T1-weighted images were obtained after the intravenous administration of 6.5 mL Gadavist. FINDINGS: Liver: There is diffuse loss of signal intensity in the liver on opposed phase imaging, consistent with steatosis. There is no enhancing liver mass. The hepatic and portal veins are patent. There is no intrahepatic biliary dilatation. Gallbladder/biliary tree: The patient is status post cholecystectomy. The common bile duct is normal in caliber. No intraluminal filling defects are identified to suggest choledocholithiasis. Spleen: The spleen is unremarkable. Pancreas: Again seen is absence of the pancreatic tail and portions of the pancreatic neck. This is likely due to prior necrotic pancreatitis. The pancreatic tissue in the body and head enhances normally. There is mild prominence of the pancreatic duct in the body without change. No enhancing pancreatic mass is identified. Adrenals: The adrenal glands are unremarkable. Kidneys: The kidneys are unremarkable. There is no hydronephrosis. Lymph nodes: There is no retroperitoneal lymphadenopathy in the upper abdomen. Fluid: There is no ascites in the upper abdomen. Visualized bowel: The visualized small and large bowel loops are unremarkable in appearance. Visualized bones: The visualized bones demonstrate normal marrow signal intensity. MR/MR abdomen wo/w con IMPRESSION: 1. 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 Mild prominence of the pancreatic duct in the body without change. 2. Hepatic steatosis. Electronically signed by: Chris Eagle MD 01/07/2025 01:27 PM EDT Dictated By: Chris Eagle MD Signed By: <Electronically signed by Chris Eagle MD in OV> 01/07/25 1327 DD/ 1028 TD/TT: 01/07/25 1158 Compounding Pharmacy Technician: [facility] External Provider IMG MRI PROCEDURES Final Result * Urinalysis w/reflex microscopic (12/23/2024 10:49 PM EDT) Color Urine Yellow [facility] Appearance Urine Clear [facility] PH 6.0 5.0 - 9.0 [facility] Glucose Urine UA Negative Negative mg/dL [facility] Urine Blood Negative Negative [facility] Specific [place] - Urine 1.020 1.005 - 1.025 [facility] Urine Protein Negative Neg-Trace mg/dL [facility] Urine Ketones Negative Negative mg/dL [facility] Nitrite Urine Negative Negative [facility] Leukocyte Esterase Urine Negative Negative [facility] 12/23/2024 10:4 9 PM EDT 12/23/2024 10:53 PM EDT Narrative [facility] - 12/23/2024 10:57 PM EDT Urine, Clean Catch us Generic External Data Provider LAB URINE ORDERAB LES Final Result [facility] [address] [place] [phone] * POCT HGB A1C (08/19/2024 1:34 PM EDT) Hemoglobin A1C 5.7 4.0 - 6.0 % QC Media Lot # [id number] Lot# Expiration Date Blood 08/19/2024 1:34 PM EDT us Luciano Flores MD POINT OF CARE TEST ENTER/ED IT ORDERABLES Final Result * (ABNORMAL) Lipid Panel, Standard (02/29/2024 10:45 AM EDT) Triglycerides 94 <150 mg/dL [facility] Comment:Desirable Triglyceri de: less than 150 mg/dLBorderline High Triglyceride 150-199 mg/dLHigh Triglyceride: 200-499 mg/dLVery High Triglyceride: greater than or equal to 5OO mg/dL Cholesterol 112 <200 mg/dL [facility] Comment:Desirable Cholestero l: less than 200 mg/dLBorderline High Cholesterol: 200-239 mg/dLHigh Cholesterol: greater than 239 mg/dL LDL Cholesterol Calculated 54 <100 mg/dL [facility] Comment:Desirable LDL: less than 100 mg/dLNear Optimal/Above Optimal LDL: 110- 129 mg/dLBorderline High LDL: 130-159 mg/dLHigh LDL: 160-189 mg/dLVery High LDL: greater than or equal to 190 mg/dL HDL Cholesterol 40(L) >40 mg/dL [facility] Comment:Desirable HDL: great er than 40 mg/dL Note: This HDL assay may give artificially low results in patients with liver disease. Blood Venous blood specimen / Unknown 02/29/2024 10:45 AM EDT 02/29/2024 2:07 PM EDT us Ibeth Lassiter MD LAB BLOOD ORDERABLES Final Re sult [facility] [address] [place] [phone] * Image-Guided Pap with Age-Based Screening??with CT/NG,??Trichomonas (11/28/2022 1:22 PM EDT) Comment NPM Comment: This order for age-based cervical cancer and STI screening follows ACOG guidelines(PB 168, 140, OKW673). See individual assays for performing site location. Clinical Information: None given [employer] LMP: NONE GIVEN [employer] Prev. PAP: NONE GIVEN [employer] Prev. BX: NONE GIVEN [facility] SOURCE: None given [employer] Statement Of Adequacy: [employer] Comment: Satisfactory for evaluation. Endocervical/transformation zone component present. Interpretation/Re sult: Negative for intraepithelial lesion or malignancy. [employer] COMMENT: This Pap test has been evaluated with computer assisted technology. [employer] Veterinary Radiologist: Harvinder [employer] Comment: SXA, CT(ASCP) CT screening location: [address] [address] PATHOLOGIST: [employer] Comment: Brady Ortiz M.D. Direct , Board Certified in Anatomic and Clinical Pathology and Cytopathology (electronic signature) Consulting Pathologist [facility] [address] [place] [address] (Always Message) [employer] [place] [employer] Comment: EXPLANATORY NOTE: The Pap is a [...] RNA, TMA, Urogenital NOT DETECTED NOT DETECTED [facility] [place] [employer] Neisseria gonorrhoeae RNA, TMA, Urogenital NOT DETECTED NOT DETECTED [facility] [place] [employer] (Always Message) [employer] [place] [employer] Comment: The analytical performance characteristics of this assay, when used to test SurePath(TM) specimens have been determined by [facility]. The modifications have not been cleared or approved by the FDA. This assay has been validated pursuant to the CLIA regulations and is used for clinical purposes. For additional information, please refer to https://[employer]Thinglink.CrowdFeed/faq/ZLD556 (This link is being provided for information/ educational purposes only.) Trichomonas vaginalis, QL, TMA, PAP Vial NOT DETECTED NOT DETECTED [facility] [place] [employer] Comment: The analytical performance characteristics of this assay have been determined by [facility]. The modifications have not been cleared or approved by the FDA. This assay has been validated pursuant to the CLIA regulations and is used for clinical purposes. For additional information, please refer to http://[employer]ing[employer].CrowdFeed/ faq/Trichomonastma (This link is being provided for information/ educational purposes only.) Pap Vial 11/28/2022 1:22 PM EDT 11/29/2022 3:01 AM EDT us Yuly [facility] ORDERABLES F inal Result [facility] [address], [place] [address] [facility] [place] [facility] [address] [place] [address] * Hepatitis C Antibody with Reflex to HCV, RNA, Quantitative, Real-Time PCR (10/26/2022 9:56 AM EDT) Hepatitis C Antibody NON-REACT CASEY NON-REACT CASEY [facility] [place] [employer] Index 0.11 <1.00 [facility] [place] [employer] Comment: HCV antibody was non-reactive. There is no laboratory evidence of HCV infection. In most cases, no further action is required. However, if recent HCV exposure is suspected, a test for HCV RNA (test code 93499) is suggested. For additional information please refer to http://education.Ass[employer]/faq/TPM21u9 (This link is being provided for informational/ educational purposes only.) Blood Venous blood specimen / Unknown 10/26/2022 9:56 AM EDT 10/26/2022 9:58 AM EDT Narrative [facility] - 11/02/2022 2:12 PM EDT SPECIALIZED COLLECTION. PATIENT REFERRED TO ALTERNATE SITE. us Ibeth Lassiter MD LAB BLOOD ORDERABLES Final Re sult [facility] [address] [facility], [place] [phone] [facility] [place] [facility] [address] [place] [phone] * HIV 1/2 ANTIGEN/ANTIBODY,FOURTH GENERATION W/RFL (01/25/2022 12:04 PM EDT) HIV-1/2 ANTIGEN AND ANTIBODIES, 4TH GENERATION W/ REFLEX NON-REACT CASEY NON-REACT [facility] Comment: HIV-1 antigen and HIV-1/HIV-2 antibodies were not detected. There is no laboratory evidence of HIV infection. PLEASE NOTE: This information has been disclosed to you from records whose confidentiality may be protected by state law. If your state requires such protection, then the state law prohibits you from making any further disclosure of the information without the specific written consent of the person to whom it pertains, or as otherwise permitted by law. A general authorization for the release of medical or other information is NOT sufficient for this purpose. For additional information please refer to http://education.[employer]/faq/QIC430 (This link is being provided for informational/ educational purposes only.) The performance of this assay has not been clinically validated in patients less than 2 years old. 01/25/2022 12:0 4 PM EDT us Ibeth Lassiter MD LAB BLOOD ORDERABLES Final Re sult [facility] [address] from Last 3 Months or Most Recently Relevant to Health Maintenance Insurance [address] Care Teams Gas Adjuster Relationship Specialty Start Date End Date Joshua, Bailee, MD [address] [place] [address] PCP - General Family Medicine 11/14/24
--- OUTSIDE RECORDS SUMMARY | 2025-01-26 18:25 | XMS_ITS ---
Author Organization [employer] Address [address] [place] [address] [address] [place] [address] Care Team Providers Care Stove Cleaner Name Role Phone Bailee Lewis MD Primary Care Provider [phone] [phone] Status:Closed (Closed) Start date:09/09/2024 Enrollment date:11/25/2024 Enrollment reason:ADT Feed End date:01/26/2025 Close reason:Goals Partially Met Overview ED- Pt went [facility] [place] 09[facility]08[facility]. Case Team Name Relationship Phone Rain Jamari(Responsible Staff) [phone] Continued Care and Services Coordination
--- OUTSIDE RECORDS SUMMARY | 2025-01-26 18:25 | XMS_ITS | Encounter Summary ---
Author Organization [employer] Address [address] [facility] 7t [place] [address] Care Team Providers Care Catcher Filter Tip Name Role Phone Ibeth Lassiter MD Primary Care Provider [phone] Amber Marie Primary Care Provider [phone] Bailee Lewis MD Primary Care Provider [phone] Ibeth Lassiter MD Primary Care Provider Bailee Lewis MD Primary Care Provider [phone] Reason for Visit * Reason Onset Date Comments Appointment Request 05/29/2024 Encounter Details Date Type Department Care Team (Late st Contact Info) Description 05/29/2024 Telephone [facility] MEDICINE [address] [place] [address] Ibeth Lassiter MD [address] [place], [place] [phone] Appointment Request Social History Tobacco Use Types [...] 2:30 PM EDT Clinical Support [facility] MEDICINE [address] [place], [place] [phone] Ena Grant RN 02/16/2025 11:00 AM EDT Office Visit [facility] MEDICINE [address] [place] [address] documented as of this encounter Visit Diagnoses Not on filedocumented in this encounter Additional Health Concerns Assessment Noted Time PHQ-9 Depression Total Score: 24 024 3:55 PM EDT documented as of this encounter Care Teams Catcher Filter Tip Relationship Specialty Start Date End Date Ibeth Lassiter MD [address] [place] [address] PCP - General Family Medicine 12/16/21 10/01/24 Amber Marie FNP [address] [place] [address] PCP - General Family Medicine 10/02/24 10/08/24 Bailee Lewis MD [address] [place] [address] PCP - General Family Medicine 10/09/24 10/12/24 Ibeth Lassiter MD [address] [place] [address] PCP - General Family Medicine 10/13/24 11/13/24 Bailee Lewis MD [address] [place] [address] PCP - General Family Medicine 11/14/24 documented as of this encounter
--- OUTSIDE RECORDS SUMMARY | 2025-01-26 18:25 | XMS_ITS | Clinical Summary ---
Author Organization [facility] Address [address] [place] [address] Care Team Providers Care Salvage Grinder Name Role Phone Valeria Tao MD Primary Care Provider + Allergies Active Allergy Reactions Criticality Noted Date Comments Codeine Anaphylaxis High 06/25/2017 Oxycodone Syncope High 06/25/2017 Penicillins Anaphylaxis High 06/25/2017 Medications * This document contains information received from the source organization and may not represent a complete record from that organization. albuterol (PROAIR HFA,VENTOLIN HFA) 90 mcg inhalerIndicatio ns:Moderate persistent asthma without complication (HCC) Inhale 1-2 puffs (90-180 mcg total) by mouth every 6 hours as needed for wheezing or shortness of breath. Use with spacer. 8.5 g 2 1 Active Additional Information Patient not taking.Reported on 08/06/2020 acyclovir (ZOVIRAX) 400 mg tablet Take 1 tablet (400 mg total) by mouth 3 times a day. 21 tablet 1 Active ferrous sulfate 325 mg (65 mg iron) tablet Take 1 tablet (325 mg total) by mouth every other day. 30 tablet 2 1 Active Active Problems Patient Care Coordination No te Formatting of this note migh t be different from the original. 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 She feels that she has a good therapeutic relationship with the in-home therapist who has been assigned by [facility] to her child for bipolar [...] mg daily -Follow up in 4 weeks Flank pain 06/14/2020 Assessment & Plan (06/14/2020 8:26 AM EST): Initially thought to be due to nephrolithiasis based on hx and exam, as well as UDip positive only for trace blood. Given her pain level I ordered stat ultrasound, sent additional Rx for norco, and discussed pain management as well as return precautions/precautions to go to ED. Her urine subsequently did grow E.Coli, and with concern for pyelo I sent 7 day course of cipro based on sensitivities and Deepti's allergies. I attempted to call her sister's phone as requested by patient (Deepti's phone currently out of service), and left VM with instructions for Deepti. Delivery of by section 2019 Assessment & Plan (08/09/2020 8:26 AM EST): Will recheck CBC given her low H/H throughout . Discussed pelvic rest for 2 wks to allow additional time to heal given her current sx, and will re-eval at her next appt. Return precautions discussed. History of herpes genitalis 02/10/2020 Major depressive disorder 04/15/2018 Assessment & Plan (12/23/2020 7:11 PM EDT): We'll start Seroquel today. We'll try extended release 200 mg. Plan to follow-up in about 2 weeks. We may increase dose at that time if necessary. Return precautions discussed. Anemia 05/15/2016 Assessment & Plan (04/12/2020 7:29 AM EST): Repeat labs today including H/H and type and screen. We will plan for transfusion of 2U at [facility] once labs return. Repeat H/H on day following transfusion. Alopecia 03/27/2016 Exercise-induced asthma 04/30/2013 Assessment & Plan (06/29/2020 7:08 AM EST): Albuterol refilled. Also started on Flovent. Reviewed instructions for inhaler use and return precautions. Classic migraine with aura 04/30/2013 Resolved Problems Problem Noted Date Diagnosed Date Resolved Date Normal labor 05/21/2020 05/24/2020 H/O shoulder dystocia in samira or , currently 05/21/2020 08/06/2020 H/O shoulder dystocia in samira or , currently , third trimester 05/21/202005/05 Itching 05/21/2020 05/24/2020 Hydronephrosis of right kidney 02/19/2020 05/24/2020 Assessment & Plan (02/23/2020 9:28 AM EDT): Given her macroscopic and microscopic hematuria, persistent nausea, vomiting, and abdominal pain, right hydronephrosis on ultrasound, and 2018 CT scan showing stones at her right kidney and UVJ, she most likely has a stone on the right side of her urinary system. Her hematuria is not likely to be confounded by vaginal bleeding as there is none on speculum exam today. We did not start nifedipine today as her BP is 100/50. -Counseled patient to hydrate copiously, 8 glasses of water daily -Refer to urology Constipation 02/19/2020 05/24/2020 Assessment & Plan (02/19/2020 10:40 PM EDT): I have asked the patient to not take Dulcolax as it can be associated with electrolyte abnormalities if used chronically. -Increase water intake to 8 glasses daily -Add psyllium husk to water -Start MiraLAX daily as needed Group B streptococcal bacteriuria 12/21/2019 05/24/2020 Gastroesophageal reflux in 12/15/2019 05/24/2020 Assessment & Plan (12/15/2019 5:48 PM EDT): Patient has been taking Pepcid at home. Dose is unclear. -Continue famotidine 10 mg p.o. twice daily PRN Vomiting or nausea of 07/04/2018 05/24/2020 Assessment & Plan (04/12/2020 7:27 AM EST): Again I reviewed appropriate use of medications that have already been prescribed. She may alternate between the zofran and reglan and take these scheduled. And advised she take doxylamine nightly if it is making her too sleepy. Assessment & Plan (02/20/2020 3:27 AM EDT): He did not rock picker her doxylamine-pyridoxine after our last clinic visit. I advised her to pick it up today from the pharmacy. She will probably eventually need more antiemetic medications as she also likely has nausea from likely nephrolithiasis with obstruction. -Start doxylamine-pyridoxine DR/EC 10-10 mg; start at 2 tablets nightly and titrate up to 4 tablets total daily dose -BMP, Mg Assessment & Plan (12/15/2019 5:46 PM EDT): Given the lack of clarity with respect to which antiemetic she was actually taking, we will start with first-line treatment and step up from there as needed. -Start pyridoxine 25 mg p.o. 4 times daily 05/22/2018 05/24/2020 Overview (05/10/2020): 24 y.o. at 37w0d with Estimated Date of Delivery: 05/31/20 Continuity Residents: Jared Jara PMHx: Past Medical History: Diagnosis Date Allergic Anemia Asthma Breast fibroadenoma in female, left Chlamydial infection History of Chlamydia 2016-03-23 Depression Genital herpes History of transfusion From first successful; , during labor and delivery. Hydronephrosis of right kidney 02/19/2020 Hypokalemia Hypothyroidism Nephrolithiasis Placenta previa hemorrhage Rh incompatibility Thyroid disorder hypothyroidism OBHx: OB History Para Term AB Living 5 2 2 0 2 2 SAB TAB Ectopic Multiple Live Births 2 # Outcome Date GA Lbr Holger/2nd Weight Sex Delivery Anes PTL Lv 5 Current 4 Term 3 SAB 2 Term 1 SAB VISHAL based on: 2nd-trimester U/S LMP: 08/19/19 Dating U/S: 2nd-trimester, 6 days earlier than LMP Labs Lab Results Component Value Date RHTYPE Negative 04/09/2020 ABYSCREEN Positive 04/09/2020 CHLAMYDIATR NOT DETECTED 04/26/2020 NEISSERIAGO NOT DETECTED 04/26/2020 [id number] Non-Reactive 12/16/2019 SYPHILISABSI Non-Reactive 12/16/2019 VARICELLAZO 349.30 12/16/2019 RUBELLAIGG Reactive 12/16/2019 RUBELLAIGG 35.6 12/16/2019 HCT 32.0 (L) 04/19/2020 PLT 286 04/12/2020 3rd Trim RPR: indicated Genetic testing: cystic fibrosis, Kendrick-Sachs and QuadScreen. All were neg. Imaging 18w6d U/S: R kidney not visualized 22w3d Level II U/S 01/22: possible horseshoe kidney, recommend repeat U/S at 32 wks 34w1d through MFM: again possible horseshoe kidney. No urinary tract dilation. Will plan for imaging, no further monitoring required Vaccinations Flu: indicated TDap: indicated (27-36 weeks) Rhogam: indicated, given in ED Oct 20 Miscellaneous Epidural: Breast/bottle: PP Contraception: tubal ligation Pedi f/u: Next Appointment: 05/10/20 w/ Jared - needs RPR and repeat H/H Concerns for current : Resolved placenta previa Anemia requiring transfusion. Nausea and vomiting of with abdominal pain, noncompliant with meds; Referral to GI Hx of genital herpes. Will need suppressive antiviral Tx from 36w GA onward. Pt requests primary LTCS, for Hx of laceration and ineffective epidural, and BTL. Will need [employer] consult and consent form signed (needs to be at least 30 days old, can be older than that) in 3rd trimester. 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 No further imaging required. Notes/FYI: GBS bacteriuria C/S scheduled 05/25 w/ Misty Assessment & Plan (12/15/2019 6:01 PM EDT): After counseling, patient would like to get a quad screen. The rest of her routine lab work will be ordered at her nursing intake. -Quad screen Pelvic pain 05/22/2018 07/04/2018 Jaw claudication 12/07/2016 04/15/2018 Goiter diffuse 12/07/2016 07/04/2018 Cervical adenopathy 12/07/2016 05/24/20 20 Abnormal thyroid stimulating hormone (TSH) level 05/16/2016 07/04/2018 Overview (02/21/2017): Patient reports being told at the ER in [place] that she has hyperthyroidism, Low TSH and follow up with PCP/endocrine. Patient reports racing heart rate, intolerance to heat, thining/loss of hair, and increased anxiety. Fibroadenoma, left 04/13/2016 0 Contraceptive use 09/20/2014 07/04/2018 Abdominal pain, suprapubic 09/09/2014 1 06/15/2017 Depression with anxiety 04/30/201304/04 Abnormal ultrasonic finding on screening of mother, antepartum 05/24/20 20 Immunizations Immunization Administration Dates Next Due Diphtheria, Tetanus Toxoids and Acellular Pertussis Vaccine, 5 Pertussis Antigens 12/24/2000,01/27/1997,02/12/1996,12/12,1995 H1N1 All Forms 07/23/2009 Haemophilus Influenzae Type B Vaccine, HbOC Conjugate 01/27/1997,02/12/1996,1995,11/24 Hepatitis B Vaccine, Pediatr ic or Pediatric/Adolescent Dosage 02/12/1996,1995,1995 Human Papilloma Virus Vaccin e, Quadrivalent 01/10/2008,10/07/2007,02/06/2007 INFLUENZA, SPLIT VIRUS, TRIVALENT, PF 05/15/2014 Influenza Virus Vaccine, Gail e, Attenuated, for Intranasal Use 04/04/2011 Influenza, Injectable, Quadr ivalent, Preservative Free 05/21/2020(Deferred: Patient Refused) Measles, Mumps, and Rubella Vaccine 09/08/1999,0 01/27/1997 Meningococcal Polysaccharide Vaccine (MPSV4) 07/08/2008 Poliovirus Vaccine, Inactivated 12/25/19,02/12/1996,1995,10/24 Rho (D) Immune Globulin - IM 05/22/2020,03/20/20,11/16/2019 Seasonal, Trivalent, Recombi nant, Injectable Influenza Vaccine, Preservative Free (Flublok) 07/23/2009 Tetanus Toxoid, Reduced Diph theria Toxoid, and Acellular Pertussis Vaccine, Adsorbed 03/31/2020,11/19/2018,04/09/2017,05/15,02/06/2007 Varicella Virus Vaccine 07/08/2008,08/04/1996 Family History Medical History Relation Name Comments Hepatitis Father chronic hep C Liver disease Father Other Maternal Grandfather Materna l grandfather's history of Diabetes Mellitus Other Maternal Grandmother Materna l grandmother's history of Diabetes Mellitus Cirrhosis Mother Hepatitis Mother chronic hep C Diabetes Sister Relation Name Status Comments Father Maternal Grandfather Maternal Grandmother Mother Sister Social History Tobacco Use Types Packs/Day Years Used Date Smoking Tobacco: Former Cigarettes 0.5 5 0 06/04/2012 - 06/04/2017 Smokeless Tobacco: Never Tobacco Cessation:Counseling Given: No Alcohol Use Standard Drinks/Week Comments Not Currently 0 (1 standard drink = 0.6 oz pur e alcohol) Transportation Answer Date Recorded Please david the areas for ich the patient would like information or assistance: None Apply 01/07/2020 Lack of Transportation (Medical) Not on file 01/07/2020 Housing Stability Answer Date Recorded Please david the areas for ich the patient would like information or assistance: None Apply 01/07/2020 Unable to Pay for Housing in the Last Year Not o n file 01/07/2020 Last EPDS Total Score Not on file 01/07/2020 Unstable Housing in the Last Year Not on file 01/07/2020 Comments No Sex and Gender Information Value Date Recorded Sex Assigned at Female 04/20/2020 8:43 AM EST Legal Sex Female 7:46 AM EDT Gender Identity Female 04/20/2020 8:43 AM EST Sexual Orientation Straight 04/20/2020 8: 43 AM EST Last Filed Vital Signs Vital Sign Reading Time Taken Comments Blood Pressure 111/77 06/01/2021 1:29 PM EST Pulse 78 06/01/2021 1:29 PM EST Temperature 36 C (96.8 F) 06/01/2021 1:29 PM EST Respiratory Rate 16 05/24/2020 9:00 AM EST Oxygen Saturation 96% 06/01/2021 1:29 PM EST Inhaled Oxygen Concentration - - Weight 49.5 kg (109 lb 3.2 oz) 06/01/2021 1:29 P M EST Height 165.1 cm (5' 5 ) 08/06/2020 4:15 PM EST Body Mass Index 18.17 08/06/2020 4:15 PM EST Plan of Treatment Health Maintenance Due Date Last Done Comments COVID-19 Vaccine ( season) 2024 Alcohol/Substance Use Screening 06/04/2024 Influenza Vaccine (#1) 2025 4, 04/04/2011, 07/23/2009, Additional history exists DTaP,Tdap,and Td Vaccines (11 - Td or Tdap) 03/31/2030 03/31/2020, 11/19/2018, 04/09/2017, Additional history exists RSV Vaccine (60+ years old and patients) (1 - 1-dose 75+ series) 2070 Hepatitis B Vaccines Completed 02/12/1996, 1995, 1995 Varicella Vaccines Completed 07/08/2008, 08/04/1996 HIV Screening Completed 12/16/2020, 12/02, 04/15/2018 Pneumococcal Vaccine: Pediatric (0-5 Years) and At-Risk Patients (6-50 Years) Aged Out No longer eligible based on patient's age to complete this topic Insurance [facility] Advance Directives Documents on File Type Date Recorded Patient Armored Vehicle Officer Expl [facility] Care Proxy 05/23/2020 11:21 AM * Full Code (Latest Code Status on File) Date Activated Date Inactivated Comments 05/22/2020 3:09 AM 05/24/2020 2:07 PM * Full Code Date Activated Date Inactivated Comments 05/21/2020 4:07 PM 05/22/2020 3:09 AM Care Teams Salvage Grinder Relationship Specialty Start Date End Date Valeria Tao MD [address] [place] [address] PCP - General 12/01/24
[2025-01-26 19:09] VITALS: BP 139/66; PULSE 99; RESP 18; TEMP 36.6; O2SAT 98
== END 2025-01-26 19:10 | disposition home or self-care (01) ==
PROVIDERS: Physician Assistant Medical; Emergency Provider Emergency Medicine; PCP General Practice
DX: R10.13 Epigastric pain (principal); Z79.899 Other long term (current) drug therapy
CPT/HCPCS: 36415; 80053; 83690; 83735; 85025; 99283

== ENCOUNTER 2025-05-02 23:18 | Emergency (ER) | payer MEDICAID, SELFPAY ==
--- NOTE | ~2025-05-02 | US_ITS ---
CLINICAL HISTORY: up abdo pain, higher ast alt alkphos US abdomen limited Comparison: CT/REG/SR - CT ABDOMEN PELVIS W IV CON - 01/24/25 21:57 EDT Findings: The visualized pancreas is unremarkable. The aorta and inferior vena cava are normal caliber. The liver is normal in size with heterogeneously coarsened echotexture. There is no intrahepatic bile duct dilatation. The common duct is 8 mm in diameter. The gallbladder is surgically absent. The main portal vein is antegrade. The right kidney is 10.5 cm in length. No ascites. IMPRESSION: Hepatic steatosis. This document has been electronically signed by: Dontae Car MD on 05/03/2025 06:28:15
[2025-05-02 23:29] VITALS: BP 110/70; BP 113/63; PULSE 100; PULSE 94; RESP 18; TEMP 36.7; O2SAT 100; O2SAT 96; BMI 26.6
--- NOTE | 2025-05-02 23:51 | PC.NURSE ---
pt with dx of pancreatitis having a flair, waiting cosmetics and toiletries salesperson back from [facility] in [place] to discuss surgery. Pt reports 1010 pain, zofran and hydromorphone prescriptions are not working at this time.
--- OUTSIDE RECORDS SUMMARY | 2025-05-03 00:10 | XMS_ITS | Encounter Summary ---
Author Organization [employer] Address [address] [facility] 7t [place] [address] Care Team Providers Care Occupational Therapy Aide Name Role Phone Bailee Lewis MD Primary Care Provider [phone] Simi Kauffman RN Unavailable [phone] Adriana Brand Unavailable Encounter Details Date Type Department Care Team (Late st Contact Info) Description 03/03/2025 Orders Only [facility] MEDICINE [address] [place], [place] [phone] Bailee Lewis MD [address] [place] [address] Alcohol-induced chronic pancreatitis (CMS/HCC) Social History Tobacco [...] others, in a hotel, in a senior care, living outside on the street, on a [...] Upcoming Encounters Date Type Department Care Team ([facility] Contact Info) Description 05/04/2025 11:00 AM EST Office Visit [address] [address] 05/05/2025 9:00 AM EST Clinical Support [address] [address] Ena Grant, EL 05/07/2025 2:00 PM EST Office Visit [address] [address] Claudia Ansari MD [address] [place] [phone] documented as of this encounter Visit Diagnoses Diagnosis Alcohol-induced chronic pancreatitis (CMS/HCC) (HCC) Chronic pancreatitis documented in this encounter Additional Health Concerns Assessment Noted Time PHQ-9 Depression Total Score: 17 025 8:35 AM EDT documented as of this encounter Care Teams Occupational Therapy Aide Relationship Specialty Start Date End Date Bailee Lewis MD [address] [place] [address] PCP - General Family Medicine 11/14/24 Simi Kauffman, EL [address] [place] [address] Registered Nurse Family Medicine 03/06/25 Adriana Brand 03/06/25 documented as of this encounter
--- OUTSIDE RECORDS SUMMARY | 2025-05-03 00:10 | XMS_ITS | Encounter Summary ---
Author Organization [employer] Address [address] [place] [address] 7t [place] [address] Care Team Providers Care Guncotton Packer Name Role Phone Ibeth Lassiter MD Primary Care Provider [phone] Amber Marie Primary Care Provider [phone] Bailee Lewis MD Primary Care Provider [phone] Ibeth Lassiter MD Primary Care Provider [phone] Bailee Lewis MD Primary Care Provider [phone] Simi Kauffman RN Unavailable [phone] Adriana Brand Unavailable Reason for Visit * Reason Onset Date Comments Med Refill 11/05/2023 Encounter Details Date Type Department Care Team ([facility] st Contact Info) Description 11/05/2023 Refill [facility] [address] [place] [address] Ibeth Lassiter MD [address] [place] [address] Anxiety Social History Tobacco Use Types Packs/Day [...] Questionnaire -2 Score 6 11/08/2023 3:55 PM EDT Ibeth Lassiter MD * Over the past 2 weeks, how often have you been bothered by any of the following problems? Question Answer Date of Assessment Author Little interest or pleasure in doing things Nearly every day 11/08/2023 3:55 PM RAFITAT Ibeth Lassiter MD Feeling down, depressed, or hopeless Nearly every day 11/08/2023 3:55 PM Ibeth Coello MD Trouble falling or staying asleep, or sleeping too much Nearly every day 11/08/2023 3:55 PM RAFITAT Ibeth Lassiter MD Feeling tired or having little energy Nearly every day 11/08/2023 3:55 PM RAFITAT Ibeth Lassiter MD Poor appetite or overeating Nearly every day 11/08/2023 3:55 PM EDT Ibeth Lassiter MD Feeling bad about yourself - or [...] Care Team (Late st Contact Info) Description 05/04/2025 11:00 AM EST Office Visit [address] [address] 05/05/2025 9:00 AM EST Clinical Support [address] [address] Ena Grant RN 05/07/2025 2:00 PM EST Office Visit [address] [address] Claudia Ansari MD [address] [place] [address] documented as of this encounter Visit Diagnoses Diagnosis Anxiety Anxiety state, unspecified documented in this encounter Additional Health Concerns Assessment Noted Time PHQ-9 Depression Total Score: 14 023 10:26 AM EDT documented as of this encounter Care Teams Guncotton Packer Relationship Specialty Start Date End Date Ibeth Lassiter MD [address] [place] [address] PCP - General Family Medicine 12/16/21 10/01/24 Amber Marie FNP [address] [place] [address] PCP - General Family Medicine 10/02/24 10/08/24 Bailee Lewis MD [address] [place] [address] PCP - General Family Medicine 10/09/24 10/12/24 Ibeth Lassiter MD [address] [place] [address] PCP - General Family Medicine 10/13/24 11/13/24 Bailee Lewis MD [address] [place] [address] PCP - General Family Medicine 11/14/24 Simi Kauffman, EL [address] [place] [address] Registered Nurse Family Medicine 03/06/25 Adriana Brand 03/06/25 documented as of this encounter
--- OUTSIDE RECORDS SUMMARY | 2025-05-03 00:10 | XMS_ITS | Clinical Summary ---
Author Organization [facility] Address [address] [place] [address] Care Team Providers Care Server Manager Name Role Phone Ibeth Lassiter MD Primary Care Provider [phone] Allergies Active Allergy Reactions Criticality Noted Date [...] pur e alcohol) 10-12 nips per day [facility] Utilities Answer Date Recorded In the past 12 months has [employer], gas, oil, or water [employer] threatened to shut off services in your [...] place to sleep or slept in a chcf (including now)? No 09/08/2023 Comments Unknown Sex [...] Pap Smear (Ages 21-65) 2016 Influenza Vaccine 01/02/2025 04/04/2011 COVID-19 Vaccine (2023-2 5 season) 2025 HPV Vaccines (No Doses Required) Completed Pneumococcal Vaccine: Pediat jaskaran (0-5 Years) and At-Risk Patients (6 to 49 Years) Aged Out No longer eligible b ased on patient's age to complete this topic Insurance [facility] Advance Directives * Full Code (Latest Code Status on File) Date Activated Date Inactivated Comments 09/08/2023 12:13 AM Care Teams Server Manager Relationship Specialty Start Date End Date Ibeth Lassiter MD [address] [place] [address] PCP - General Family Medicine 09/07/23
--- OUTSIDE RECORDS SUMMARY | 2025-05-03 00:10 | XMS_ITS | Encounter Summary ---
Author Organization [employer] Address [address] [facility] 7t [place] [address] Care Team Providers Care Burn Nurse Name Role Phone Bailee Lewis MD Primary Care Provider [phone] Simi Kauffman RN Unavailable [phone] Adriana Brand Unavailable Reason for Visit * Reason Onset Date Comments Med Refill 03/03/2025 Encounter Details Date Type Department Care Team (Late st Contact Info) Description 03/03/2025 Refill [facility] [address] [place], [place] [phone] Bailee Lewis MD [address] [place], [place] [phone] Alcohol-induced chronic pancreatitis (CMS/HCC) Social History Tobacco [...] Description 05/04/2025 11:00 AM EST Office Visit [address] [address] 05/05/2025 9:00 AM EST Clinical Support [address] [address] Ena Grant, EL 05/07/2025 2:00 PM EST Office Visit [address] [address] Claudia Ansari MD [address] [place] [address] documented as of this encounter Visit Diagnoses Diagnosis Alcohol-induced chronic pancreatitis (CMS/HCC) (HCC) Chronic pancreatitis documented in this encounter Additional Health Concerns Assessment Noted Time PHQ-9 Depression Total Score: 17 025 8:35 AM EDT documented as of this encounter Care Teams Burn Nurse Relationship Specialty Start Date End Date Bailee Lewis MD [address] [place] [address] PCP - General Family Medicine 11/14/24 Simi Kauffman RN [address] [place] [address] Registered Nurse Family Medicine 03/06/25 Adriana Brand 03/06/25 documented as of this encounter
--- OUTSIDE RECORDS SUMMARY | 2025-05-03 00:10 | XMS_ITS | Encounter Summary ---
Author Organization [employer] Address [address] [place] [address] 7t [place] [address] Care Team Providers Care Semiconductors Wafer Breaker Name Role Phone Ibeth Lassiter MD Primary Care Provider [phone] Amber Marie Primary Care Provider [phone] Bailee Lewis MD Primary Care Provider [phone] Ibeth Lassiter MD Primary Care Provider [phone] Bailee Lewis MD Primary Care Provider [phone] Simi Kauffman RN Unavailable [phone] Adriana Brand Unavailable Reason for Visit * Reason Onset Date Comments Med Refill 11/02/2023 Encounter Details Date Type Department Care Team ([facility] st Contact Info) Description 11/02/2023 Refill [facility] [address] [place], [place] [phone] Ibeth Lassiter MD 505 [place], [place] [phone] Acute necrotizing pancreatitis Social History Tobacco Use [...] Description 05/04/2025 11:00 AM EST Office Visit [address] [address] 05/05/2025 9:00 AM EST Clinical Support [address] [address] Ena Grant RN 05/07/2025 2:00 PM EST Office Visit [address] [address] Claudia Ansari MD [address] [place] [address] documented as of this encounter Visit Diagnoses Diagnosis Acute necrotizing pancreatitis Acute pancreatitis documented in this encounter Additional Health Concerns Assessment Noted Time PHQ-9 Depression Total Score: 14 023 10:26 AM EDT documented as of this encounter Care Teams Semiconductors Wafer Breaker Relationship Specialty Start Date End Date Ibeth Lassiter MD [address] [place] [address] PCP - General Family Medicine 12/16/21 10/01/24 Amber Marie FNP 230 [place] [address] PCP - General Family Medicine 10/02/24 10/08/24 Bailee Lewis MD 230 [place] [address] PCP - General Family Medicine 10/09/24 10/12/24 Ibeth Lassiter MD 505 [place] [address] PCP - General Family Medicine 10/13/24 11/13/24 Bailee Lewis MD 230 [place] [address] PCP - General Family Medicine 11/14/24 Simi Kauffman RN 505 [place] [address] Registered Nurse Family Medicine 03/06/25 Adriana Brand 03/06/25 documented as of this encounter
--- OUTSIDE RECORDS SUMMARY | 2025-05-03 00:10 | XMS_ITS | Encounter Summary ---
Author Organization [employer] Address [address] [facility] 7t [place] [address] Care Team Providers Care Single Needle Operator Name Role Phone Ibeth Lassiter MD Primary Care Provider [phone] Amber Marie Primary Care Provider [phone] Bailee Lewis MD Primary Care Provider [phone] Ibeth Lassiter MD Primary Care Provider [phone] Bailee Lewis MD Primary Care Provider [phone] Simi Kauffman RN Unavailable Adriana Brand Unavailable Reason for Visit * Reason Onset Date Comments Appointment Request 05/08/2024 Encounter Details Date Type Department Care Team ([facility] st Contact Info) Description 05/08/2024 Telephone [facility] 230 [place] [address] Ibeth Lassiter MD 505 [place], [place] [phone] Appointment Request Social History Tobacco Use Types [...] EST Tc from pt requesting to reschedule CLINICAL TECHNICIAN visit from 05/15 due to having a different appt at the sametime. Please contact pt at [phone]. documented in this encounter Plan of Treatment Upcoming Encounters Date Type Department Care Team ([facility] st Contact Info) Description 05/04/2025 11:00 AM EST Office Visit [facility] [address] [place] [address] 05/05/2025 9:00 AM EST Clinical Support [address] [address] Ena Grant RN 05/07/2025 2:00 PM EST Office Visit [facility] 230 [place] [address] Claudia Ansari MD 230 [place] [address] documented as of this encounter Visit Diagnoses Not on filedocumented in this encounter Additional Health Concerns Assessment Noted Time PHQ-9 Depression Total Score: 24 024 3:55 PM EDT documented as of this encounter Care Teams Single Needle Operator Relationship Specialty Start Date End Date Ibeth Lassiter MD 230 [place] [address] PCP - General Family Medicine 12/16/21 10/01/24 Amber Marie FNP 230 [place] [address] PCP - General Family Medicine 10/02/24 10/08/24 Bailee Lewis MD 230 [place] [address] PCP - General Family Medicine 10/09/24 10/12/24 Ibeth Lassiter MD [address] [place] [address] PCP - General Family Medicine 10/13/24 11/13/24 Bailee Lewis MD 230 [place] [address] PCP - General Family Medicine 11/14/24 Simi Kauffman, EL 505 [place] [address] Registered Nurse Family Medicine 03/06/25 Adriana Brand 03/06/25 documented as of this encounter
--- OUTSIDE RECORDS SUMMARY | 2025-05-03 00:10 | XMS_ITS | Encounter Summary ---
Author Organization [employer] Address [address] [facility] 7t [place] [address] Care Team Providers Care Agribusiness Internship Name Role Phone Ibeth Lassiter MD Primary Care Provider [phone] Amber Marie Primary Care Provider [phone] Bailee Lewis MD Primary Care Provider Ibeth Lassiter MD Primary Care Provider [phone] Bailee Lewis MD Primary Care Provider [phone] Simi Kauffman RN Unavailable [phone] Adriana Brand Unavailable Reason for Visit * Reason Onset Date Comments Medication Question 05/16/2024 Encounter Details Date Type Department Care Team ([facility] st Contact Info) Description 05/16/2024 Telephone [facility] 230 [place] [address] Ibeth Lassiter MD 505 [place], [place] [phone] Medication Question Social History Tobacco Use Types [...] AM left message to return call to [facility] * Telephone Encounter - Ibeth [...] around don't have it. Contact pt at [phone] documented in this encounter Plan of Treatment Upcoming Encounters Date Type Department Care Team (Late st Contact Info) Description 05/04/2025 11:00 AM EST Office Visit [address] [address] 05/05/2025 9:00 AM EST Clinical Support [address] [address] Ena Grant RN 05/07/2025 2:00 PM EST Office Visit [address] [address] Claudia Ansari MD [address] [place] [address] documented as of this encounter Visit Diagnoses Not on filedocumented in this encounter Additional Health Concerns Assessment Noted Time PHQ-9 Depression Total Score: 24 024 3:55 PM EDT documented as of this encounter Care Teams Agribusiness Internship Relationship Specialty Start Date End Date Ibeth Lassiter MD [address] [place] [address] PCP - General Family Medicine 12/16/21 10/01/24 Amber Marie FNP [address] [place] [address] PCP - General Family Medicine 10/02/24 10/08/24 Bailee Lewis MD 230 [place] [address] PCP - General Family Medicine 10/09/24 10/12/24 Ibeth Lassiter MD 505 [place] [address] PCP - General Family Medicine 10/13/24 11/13/24 Bailee Lewis MD 230 [place] [address] PCP - General Family Medicine 11/14/24 Simi Kauffman RN 505 [place] [address] Registered Nurse Family Medicine 03/06/25 Adriana Brand 03/06/25 documented as of this encounter
--- OUTSIDE RECORDS SUMMARY | 2025-05-03 00:10 | XMS_ITS | Encounter Summary ---
Author Organization [employer] Address 75 [facility] 7t [place] [address] Care Team Providers Care Senior Radiation Therapist Name Role Phone Ibeth Lassiter MD Primary Care Provider [phone] Amber Marie Primary Care Provider [phone] Bailee Lewis MD Primary Care Provider [phone] Ibeth Lassiter MD Primary Care Provider [phone] Bailee Lewis MD Primary Care Provider [phone] Simi Kauffman RN Unavailable Adriana Brand Unavailable Reason for Visit * Reason Onset Date Comments Med Refill 11/05/2023 Encounter Details Date Type Department Care Team (Late st Contact Info) Description 11/05/2023 Telephone [facility] 230 [place] [address] Iebth Lassiter MD [address] [place], [place] [phone] Med Refill Social History Tobacco Use Types [...] 50 MG capsule To be sent to: [id number] - [place] - [address] [facility] documented in this encounter Plan of Treatment Upcoming Encounters Date Type Department Care Team ([facility] st Contact Info) Description 05/04/2025 11:00 AM EST Office Visit [address] [address] 05/05/2025 9:00 AM EST Clinical Support [address] [address] Ena Grant RN 05/07/2025 2:00 PM EST Office Visit [address] [address] Claudia Ansari MD 230 [place] [address] documented as of this encounter Visit Diagnoses Not on filedocumented in this encounter Additional Health Concerns Assessment Noted Time PHQ-9 Depression Total Score: 14 023 10:26 AM EDT documented as of this encounter Care Teams Senior Radiation Therapist Relationship Specialty Start Date End Date [place] [address] PCP - General Family Medicine 12/16/21 10/01/24 Amber Marie FNP [address] [place] [address] PCP - General Family Medicine 10/02/24 10/08/24 Bailee Lewis MD [address] [place] [address] PCP - General Family Medicine 10/09/24 10/12/24 Ibeth Lassiter MD 505 [place] [address] PCP - General Family Medicine 10/13/24 11/13/24 Bailee Lewis MD [address] [place] [address] PCP - General Family Medicine 11/14/24 Simi Kauffman RN 505 [place] [address] Registered Nurse Family Medicine 03/06/25 Adriana Brand 03/06/25 documented as of this encounter
--- OUTSIDE RECORDS SUMMARY | 2025-05-03 00:10 | XMS_ITS | Encounter Summary ---
Author Organization [employer] Address 75 [facility] 7t [place] [address] Care Team Providers Care Supportability Engineer Name Role Phone Bailee Lewis MD Primary Care Provider [phone] Simi Kauffman RN Unavailable [phone] Adriana Brand Unavailable Reason for Visit * Reason Onset Date Comments Call Back Request 03/02/2025 Encounter Details Date Type Department Care Team (Late st Contact Info) Description 03/02/[address] [facility] MED[facility]INE 230 [place], [place] [phone] Bailee Lewis MD 230 [place], [place] [phone] Call Back Request Social History Tobacco Use [...] encounter Miscellaneous Notes * Telephone Encounter - Darnell Kaplan - 03/02/2025 12:10 PM EDT TC from pt requesting to speak to Dr Lewis , Pt did not want to disclose further details . documented in this encounter Plan of Treatment Upcoming Encounters Date Type Department Care Team (Late st Contact Info) Description 05/04/2025 11:00 AM EST Office Visit [address] [address] 05/05/2025 9:00 AM EST Clinical Support [address] [address] Ena Grant, EL 05/07/2025 2:00 PM EST Office Visit [address] [address] Claudia Ansari MD [address] [place] [address] documented as of this encounter Visit Diagnoses Not on filedocumented in this encounter Additional Health Concerns Assessment Noted Time PHQ-9 Depression Total Score: 17 025 8:35 AM EDT documented as of this encounter Care Teams Supportability Engineer Relationship Specialty Start Date End Date Bailee Lewis MD [address] [place] [address] PCP - General Family Medicine 11/14/24 Simi Kauffman, RN [address] [place] [address] Registered Nurse Family Medicine 03/06/25 Adriana Brand 03/06/25 documented as of this encounter
--- OUTSIDE RECORDS SUMMARY | 2025-05-03 00:10 | XMS_ITS | Encounter Summary ---
Author Organization [employer] Address [address] [place] [address] 7 [place] [address] Care Team Providers Care Paralegal Specialist Name Role Phone Ibeth Lassiter MD Primary Care Provider [phone] Amber Marie Primary Care Provider [phone] Bailee Lewis MD Primary Care Provider [phone] Ibeth Lassiter MD Primary Care Provider [phone] Bailee Lewis MD Primary Care Provider [phone] Simi Kauffman RN Unavailable [phone] Adriana Brand Unavailable Reason for Visit * Reason Onset Date Comments Med Refill 10/22/2023 Encounter Details Date Type Department Care Team (Late st Contact Info) Description 10/22/2023 Refill [facility] MED & PEDS 505 [place] [address] Solis Taylor MD 505 [place], [place] [phone] Acute necrotizing pancreatitis Social History Tobacco Use [...] Description 05/04/2025 11:00 AM EST Office Visit [address] [address] 05/05/2025 9:00 AM EST Clinical Support [address] [address] Ena Grant RN 05/07/2025 2:00 PM EST Office Visit [address] [address] Claudia Ansari MD [address] [place] [address] documented as of this encounter Visit Diagnoses Diagnosis Acute necrotizing pancreatitis Acute pancreatitis documented in this encounter Additional Health Concerns Assessment Noted Time PHQ-9 Depression Total Score: 14 023 10:26 AM EDT documented as of this encounter Care Teams Paralegal Specialist Relationship Specialty Start Date End Date Ibeth Lassiter MD 230 [place] [address] PCP - General Family Medicine 12/16/21 10/01/24 Amber Marie FNP 230 [place] [address] PCP - General Family Medicine 10/02/24 10/08/24 Bailee Lewis MD 230 [place] [address] PCP - General Family Medicine 10/09/24 10/12/24 Ibeth Lassiter MD 505 [place] [address] PCP - General Family Medicine 10/13/24 11/13/24 Bailee Lewis MD 230 [place] [address] PCP - General Family Medicine 11/14/24 Simi Kauffman RN 505 [place] [address] Registered Nurse Family Medicine 03/06/25 Adriana Brand 03/06/25 documented as of this encounter
--- OUTSIDE RECORDS SUMMARY | 2025-05-03 00:10 | XMS_ITS | Encounter Summary ---
Author Organization [employer] Address [address] [facility] 7t [place] [address] Care Team Providers Care Broadcast Designer Name Role Phone Iebth Lassiter MD Primary Care Provider [phone] Amber Marie Primary Care Provider [phone] Bailee Lewis MD Primary Care Provider [phone] Ibeth Lassiter MD Primary Care Provider [phone] Bailee Lewis MD Primary Care Provider [phone] Simi Kauffman RN Unavailable [phone] Adriana Brand Unavailable Reason for Visit * Reason Comments Med Refill Encounter Details Date Type Department Care Team ([facility] st Contact Info) Description 08/11/2024 Refill [facility] MED & PEDS 505 [place], [place] [phone] Ibeth Lassiter MD 505 [place], [place] [phone] Social History Tobacco Use Types Packs/Day Years [...] Description 05/04/2025 11:00 AM EST Office Visit [address] [address] 05/05/2025 9:00 AM EST Clinical Support [address] [address] Ena Grant RN 05/07/2025 2:00 PM EST Office Visit [address] [address] Claudia Ansari MD [address] [place] [address] documented as of this encounter Visit Diagnoses Not on filedocumented in this encounter Additional Health Concerns Assessment Noted Time PHQ-9 Depression Total Score: 22 025 10:04 AM EST documented as of this encounter Care Teams Broadcast Designer Relationship Specialty Start Date End Date Ibeth Lassiter MD 230 [place] [address] PCP - General Family Medicine 12/16/21 10/01/24 Amber Marie FNP 230 [place] [address] PCP - General Family Medicine 10/02/24 10/08/24 Bailee Lewis MD 230 [place] [address] PCP - General Family Medicine 10/09/24 10/12/24 Ibeth Lassiter MD 505 [place] [address] PCP - General Family Medicine 10/13/24 11/13/24 Bailee Lewis MD 230 [place] [address] PCP - General Family Medicine 11/14/24 Simi Kauffman, EL 505 [place] [address] Registered Nurse Family Medicine 03/06/25 Adriana Brand 03/06/25 documented as of this encounter
--- OUTSIDE RECORDS SUMMARY | 2025-05-03 00:10 | XMS_ITS | Encounter Summary ---
Author Organization [facility] Address [address] [place] [address] Care Team Providers Care Raftsman Name Role Phone Valeria Tao MD Primary Care Provider + Encounter Details Date Type Department Care Team (Late st Contact Info) Description 01/11/2019 Lab Requisition [facility] [address] [place] [address] Cooper Cardenas Encounter for screening Social History [...] of this encounter Procedures * Due to [place] [employer] law, this organization might not be sharing negative HIV tests. Procedure Name Priority Date/Time Associated Diagnosis Comments KLEIHAUER-BETKE STAIN Routine 01/11/2019 6:40 AM EDT Encounter for screening documented in this encounter Results * Due to [place] [employer] law, this organization might not be sharing negative HIV tests. * Kleihauer-Betke Stain (01/11/2019 6:40 AM EDT) Number of Cells 3 cells/1000 RBCs [facility] MAN[facility] 01/11/2019 2:28 PM EDT [facility] Estimated Bleed 15 mL [facility] 01/11/2019 2:28 PM EDT [facility] Comment:% of Cells X 5 [...] [facility] BLOOD ORDERABLES Final Resul t [facility] [address] [place] [address], documented in this encounter Visit Diagnoses Diagnosis Encounter for screening documented in this encounter Additional Health Concerns Infection Onset Date Last Indicated Resolved Time COVID-19 - Suspected infection 10/15/2019 10/15/2019 10/16/2019 7:05 AM EDT documented as of this encounter Care Teams Raftsman Relationship Specialty Start Date End Date Valeria Tao MD [address] [place] [address] PCP - General 12/01/24 documented as of this encounter
--- OUTSIDE RECORDS SUMMARY | 2025-05-03 00:10 | XMS_ITS | Encounter Summary ---
Author Organization [employer] Address [address] [place] [address] 7t [place] [address] Care Team Providers Care Lifter/Driver Name Role Phone Bailee Lewis MD Primary Care Provider [phone] Simi Kauffman RN Unavailable [phone] Adriana Brand Unavailable Reason for Visit * Reason Onset Date Comments Med Refill 01/11/2025 Encounter Details Date Type Department Care Team (Late st Contact Info) Description 01/11/2025 Refill [facility] MEDICINE 230 [place], [place] [phone] Katt Woods MD 230 [place], [place] [phone] Chronic abdominal pain Social History Tobacco Use [...] with others, in a hotel, in a fdc, living outside on the street, on a [...] Description 05/04/2025 11:00 AM EST Office Visit [address] [address] 05/05/2025 9:00 AM EST Clinical Support [address] [address] Ena Grant, EL 05/07/2025 2:00 PM EST Office Visit [address] [address] Claudia Ansari MD [address] [place] [address] documented as of this encounter Visit Diagnoses Diagnosis Chronic abdominal pain Abdominal pain, unspecified site documented in this encounter Additional Health Concerns Assessment Noted Time PHQ-9 Depression Total Score: 17 025 8:35 AM EDT documented as of this encounter Care Teams Lifter/Driver Relationship Specialty Start Date End Date Bailee Lewis MD [address] [place] [address] PCP - General Family Medicine 11/14/24 Simi Kauffman RN [address] [place] [address] Registered Nurse Family Medicine 03/06/25 Adriana Brand 03/06/25 documented as of this encounter
--- OUTSIDE RECORDS SUMMARY | 2025-05-03 00:10 | XMS_ITS | Encounter Summary ---
Author Organization [employer] Address [address] [place] [address] 7t [place] [address] Care Team Providers Care Editor City Name Role Phone Ibeth Lassiter MD Primary Care Provider [phone] Amber Marie Primary Care Provider [phone] Bailee Lewis MD Primary Care Provider [phone] Ibeth Lassiter MD Primary Care Provider [phone] Bailee Lewis MD Primary Care Provider [phone] Simi Kauffman RN Unavailable [phone] Adriana Brand Unavailable Reason for Visit * Reason Onset Date Comments Results 03/27/2024 Care Coordination 03/27/2024 [facility] initial a ssessment/ enrollment Encounter Details Date Type Department Care Team ([facility] Contact Info) Description 03/27/2024 Telephone [facility] 505 [place], [place] [phone] Ibeth Lassiter MD 505 [place], [place] [phone] Results; Care Coordination ([facility] initial assessment/ enrollment) Social History Tobacco [...] was hospitalized about 2 days ago at [facility] for epigastric pain. Pt states she triesto avoid spicy food which triggers the pain. t states she is supposed to wear eyeglasses due to difficulty with her vision but hasn't seen the personal injury law specialist in a very long time. CM will mail a list of personal injury law specialist to pt's address on file and [...] understanding, and able to repeat back to advertising copy writer. A follow up call will be placed within 10 days, patient agrees with plan. * Telephone Encounter - Nancy Aguilar RN - 04/02/2024 3:[address] was ordered by outside provider. Upon pt chart review, pt is currently admitted at [facility] for Abd pain after biliary stent placement. Pt to f/u once discharged. * Telephone Encounter - Catie Moreau - 03/27/2024 2:17 PM EDT TC from pt requesting call back regarding Results. Type of results: Ultrasound Date when done: 2 weeks ago Facility: [facility] Contact pt at [phone] documented in this encounter Plan of Treatment Upcoming Encounters Date Type Department Care Team (Late st Contact Info) Description 05/04/2025 11:00 AM EST Office Visit [address] [address] 05/05/2025 9:00 AM EST Clinical Support [address] [address] Ena Grant RN 05/07/2025 2:00 PM EST Office Visit [address] [address] Claudia Ansari MD [address] [place] [address] documented as of this encounter Visit Diagnoses Not on filedocumented in this encounter Additional Health Concerns Assessment Noted Time PHQ-9 Depression Total Score: 24 024 3:55 PM EDT documented as of this encounter Care Teams Editor City Relationship Specialty Start Date End Date Ibeth Lassiter MD 230 [place] [address] PCP - General Family Medicine 12/16/21 10/01/24 Amber Marie FNP 230 [place] [address] PCP - General Family Medicine 10/02/24 10/08/24 Bailee Lewis MD [address] [place] [address] PCP - General Family Medicine 10/09/24 10/12/24 Ibeth Lassiter MD [address] [place] [address] PCP - General Family Medicine 10/13/24 11/13/24 Bailee Lewis MD 230 [place] [address] PCP - General Family Medicine 11/14/24 Simi Kauffman RN 505 [place] [address] Registered Nurse Family Medicine 03/06/25 Adriana Brand 03/06/25 documented as of this encounter
--- OUTSIDE RECORDS SUMMARY | 2025-05-03 00:10 | XMS_ITS | Encounter Summary ---
Author Organization [employer] Address [address] [place] [address] 7t [place] [address] Care Team Providers Care Operating Room Orderly Name Role Phone Ibeth Lassiter MD Primary Care Provider [phone] Amber Marie Primary Care Provider [phone] Bailee Lewis MD Primary Care Provider [phone] Ibeth Lassiter MD Primary Care Provider [phone] Bailee Lewis MD Primary Care Provider [phone] Simi Kauffman RN Unavailable [phone] Adriana Brand Unavailable Reason for Referral * Imaging (Routine) - Closed Specialty Diagnoses / Procedures Referred By Suman schofield Referred To Contact Radiology Diagnoses Mastodynia of left breast Procedures BI Mammogram Diagnostic Bilateral Bailee Lewis MD [address] [place] [address] Phone: tel: fax: [facility] [address] [place] [phone] Phone: tel: fax: Referral ID Status Reason Start Date Expiration Date Visits Re quested Visits Authorized [id number] Closed 12/22/2022 12/22/2023 1 1 Encounter Details Date Type Department Care Team (Late st Contact Info) Description 12/22/2022 Orders Only [facility] MEDICINE [address] [place], [place] [phone] Bailee Lewis MD [address] [place] [address] Mastodynia of left breast (Primary Dx) Social [...] Description 05/04/2025 11:00 AM EST Office Visit [address] [address] 05/05/2025 9:00 AM EST Clinical Support [address] [address] Ena Grant RN 05/07/2025 2:00 PM EST Office Visit [address] [address] Claudia Ansari MD [address] [place] [address] Scheduled Orders Name Type Priority Associated Diagnoses [...] PM EDT Narrative 01/16/2023 3:34 PM EDT [address] [place] [address] Ultrasound Report Signed Patient: Deepti Aguilar MR#: [id number] 5 : 1995 Acct:[id number] Age/Sex: 27 / F ADM Date: 01/16/23 Loc: HO.MAMMO Attending Dr: Yuly Guzman CNM Ordering Physician: YULY GUZMAN CNM Date of Service: 01/16/23 Procedure(s): US breast LT limited mamm only Accession Number(s): [id number] cc: YULY GUZMAN CNM EXAMINATION: US DIAGNOSTIC [...] in OV> 01/16/23 1531 DD/ 1500 TD/TT: Applications Specialist: Procedure Note Donotuseinterpreter, Image - 01/16/[address] [place] [address] Ultrasound Report Signed Patient: Deepti AguilarMR#: [id number] 5 : 1995Acct:[id number] Age/Sex: / FADM Date: 01/16/23 Loc: HO.MAMMO Attending Dr: Yuly Guzman CNM Ordering Physician: YULY GUZMAN CNM Date of Service: 01/16/23 Procedure(s): US breast LT limited mamm only Accession Number(s): [id number] cc: YULY GUZMAN CNM EXAMINATION: US DIAGNOSTIC [...] in OV> 01/16/23 1531 DD/ 1500 TD/TT: Applications Specialist: us Yuly Guzman CNM IMG US PROCEDURES Final R esult documented in this encounter Visit Diagnoses Diagnosis Mastodynia of left breast- Primary documented in this encounter Additional Health Concerns Assessment Noted Time PHQ-9 Depression Total Score: 8 06/29/19 23 2:00 PM EST documented as of this encounter Care Teams Operating Room Orderly Relationship Specialty Start Date End Date Ibeth Lassiter MD [address] [place] [address] PCP - General Family Medicine 12/16/21 10/01/24 Amber Marie FNP 230 [place] [address] PCP - General Family Medicine 10/02/24 10/08/24 Bailee Lewis MD [address] [place] [address] PCP - General Family Medicine 10/09/24 10/12/24 Ibeth Lassiter MD [address] [place] [address] PCP - General Family Medicine 10/13/24 11/13/24 Bailee Lewis MD [address] [place] [address] PCP - General Family Medicine 11/14/24 Simi Kauffman RN [address] [place] [address] Registered Nurse Family Medicine 03/06/25 Adriana Brand 03/06/25 documented as of this encounter
--- OUTSIDE RECORDS SUMMARY | 2025-05-03 00:10 | XMS_ITS | Encounter Summary ---
Author Organization [employer] Address [address] [place] [address] 7t [place] [address] Care Team Providers Care Oven Drier Tender Name Role Phone Bailee Lewis MD Primary Care Provider [phone] Simi Kauffman RN Unavailable [phone] Adriana Brand Unavailable Encounter Details Date Type Department Care Team (Late st Contact Info) Description 01/07/2025 Orders Only [facility] MEDICINE [address] [place], [place] [phone] Bailee Lewis MD 230 [place] [address] Alcohol-induced chronic pancreatitis (CMS/HCC) (Primary Dx) Social [...] Description 05/04/2025 11:00 AM EST Office Visit [address] [address] 05/05/2025 9:00 AM EST Clinical Support [address] [address] Ena Grant RN 05/07/2025 2:00 PM EST Office Visit [address] [address] Claudia Ansari MD [address] [place] [address] documented as of this encounter Visit Diagnoses Diagnosis Alcohol-induced chronic pancreatitis (CMS/HCC) (HCC)- Primary Chronic pancreatitis documented in this encounter Additional Health Concerns Assessment Noted Time PHQ-9 Depression Total Score: 17 025 8:35 AM EDT documented as of this encounter Care Teams Oven Drier Tender Relationship Specialty Start Date End Date Bailee Lewis MD [address] [place] [address] PCP - General Family Medicine 11/14/24 Simi Kauffman RN [address] [place] [address] Registered Nurse Family Medicine 03/06/25 Adriana Brand 03/06/25 documented as of this encounter
--- OUTSIDE RECORDS SUMMARY | 2025-05-03 00:11 | XMS_ITS | Encounter Summary ---
Author Organization [employer] Address [address] [facility] 7t [place] [address] Care Team Providers Care Rechecker Name Role Phone Ibeth Lassiter MD Primary Care Provider [phone] Amber Marie Primary Care Provider [phone] Bailee Lewis MD Primary Care Provider [phone] Ibeth Lassiter MD Primary Care Provider [phone] Bailee Lewis MD Primary Care Provider [phone] Simi Kauffman RN Unavailable [phone] Adriana Brand Unavailable Reason for Visit * Reason Onset Date Comments PT-1 08/06/2024 Encounter Details Date Type Department Care Team (Late st Contact Info) Description 08/06/2024 Telephone [facility] MEDICINE 230 [place] [address] Ibeth Lsasiter MD [address] [place], [place] [phone] PT-1 Social History Tobacco Use Types Packs/Day [...] Yes Provider name or facility name: [address] [place] [address] Escort needed: Y/N: No Do you have a wheelchair: Y/N: No If yes- Manual or electric: Visits: (2 x Monthly) Pt has Apt on 08/08/24. Patient calling requesting PT1 Home Address verified: Y/N: Yes Provider name or facility name: [address] [place] [address] Escort needed: Y/N: No Do you have a wheelchair: Y/N: No If yes- Manual or electric: Visits: (3 x Monthly) documented in this encounter Plan of Treatment Upcoming Encounters Date Type Department Care Team (Late st Contact Info) Description 05/04/2025 11:00 AM EST Office Visit [address] [address] 05/05/2025 9:00 AM EST Clinical Support [address] [address] Ena Grant RN 05/07/2025 2:00 PM EST Office Visit [address] [address] Claudia Ansari MD [address] [place] [address] documented as of this encounter Visit Diagnoses Not on filedocumented in this encounter Additional Health Concerns Assessment Noted Time PHQ-9 Depression Total Score: 025 10:04 AM EST documented as of this encounter Care Teams Rechecker Relationship Specialty Start Date End Date Ibeth Lassiter MD 230 [place] [address] PCP - General Family Medicine 12/16/21 10/01/24 Amber Marie FNP [address] [place] [address] PCP - General Family Medicine 10/02/24 10/08/24 Bailee Lewis MD [address] [place] [address] PCP - General Family Medicine 10/09/24 10/12/24 Ibeth Lassiter MD [address] [place] [address] PCP - General Family Medicine 10/13/24 11/13/24 Bailee Lewis MD [address] [place] [address] PCP - General Family Medicine 11/14/24 Simi Kauffman RN [address] [place] [address] BRENT Juarez [address] Registered Nurse Family Medicine 03/06/25 Adriana Brand 03/06/25 documented as of this encounter
--- OUTSIDE RECORDS SUMMARY | 2025-05-03 00:11 | XMS_ITS | Encounter Summary ---
Author Organization [employer] Address [address] [facility] 7t [place] [address] Care Team Providers Care Hydraulics Engineer Name Role Phone Ibeth Lassiter MD Primary Care Provider [phone] Amber Marie Primary Care Provider [phone] Bailee Lewis MD Primary Care Provider [phone] Ibeth Lassiter MD Primary Care Provider [phone] Bailee Lewis MD Primary Care Provider [phone] Simi Kauffman RN Unavailable [phone] Adriana Brand Unavailable Reason for Visit * Reason Onset Date Comments Appointment Request 05/29/2024 Encounter Details Date Type Department Care Team ([facility] st Contact Info) Description 05/29/2024 Telephone [facility] MEDICINE 230 [place] [address] Ibeth Lassiter MD [address] [place], [place] [phone] Appointment Request Social History Tobacco Use Types [...] Description 05/04/2025 11:00 AM EST Office Visit [address] [address] 05/05/2025 9:00 AM EST Clinical Support [address] [address] Ena Grant RN 05/07/2025 2:00 PM EST Office Visit [address] [address] Claudia Ansari MD [address] [place] [address] documented as of this encounter Visit Diagnoses Not on filedocumented in this encounter Additional Health Concerns Assessment Noted Time PHQ-9 Depression Total Score: 24 024 3:55 PM EDT documented as of this encounter Care Teams Hydraulics Engineer Relationship Specialty Start Date End Date Ibeth Lassiter MD [address] [place] [address] PCP - General Family Medicine 12/16/21 10/01/24 Amber Marie FNP [address] [place] [address] PCP - General Family Medicine 10/02/24 10/08/24 Bailee Lewis MD [address] [place] [address] PCP - General Family Medicine 10/09/24 10/12/24 Ibeth Lassiter MD [address] [place] [address] PCP - General Family Medicine 10/13/24 11/13/24 Bailee Lewis MD [address] [place] [address] PCP - General Family Medicine 11/14/24 Simi Kauffman RN 505 [place] [address] Registered Nurse Family Medicine 03/06/25 Adriana Brand 03/06/25 documented as of this encounter
--- OUTSIDE RECORDS SUMMARY | 2025-05-03 00:11 | XMS_ITS | Encounter Summary ---
Author Organization [employer] Address [address] [place] [address] 7t [place] [address] Care Team Providers Care Catalyst Manufacturing Operator Name Role Phone Bailee Lewis MD Primary Care Provider [phone] Simi Kauffman RN Unavailable [phone] Adriana Brand Unavailable Encounter Details Date Type Department Care Team (Late st Contact Info) Description 12/04/2024 Orders Only [facility] MEDICINE [address] [place], [place] [phone] Katt Woods MD [address] [place] [address] Chronic abdominal pain Social History Tobacco Use [...] Description 05/04/2025 11:00 AM EST Office Visit [facility] MEDICINE [address] [place] [address] 05/05/2025 9:00 AM EST Clinical Support [address] [address] Ena Grant RN 05/07/2025 2:00 PM EST Office Visit [address] [address] Claudia Ansari MD [address] [place] [address] documented as of this encounter Visit Diagnoses Diagnosis Chronic abdominal pain Abdominal pain, unspecified site documented in this encounter Additional Health Concerns Assessment Noted Time PHQ-9 Depression Total Score: 16 025 9:43 AM EDT documented as of this encounter Care Teams Catalyst Manufacturing Operator Relationship Specialty Start Date End Date Bailee Lewis MD [address] [place] [address] PCP - General Family Medicine 11/14/24 Simi Kauffman, EL [address] [place] [address] Registered Nurse Family Medicine 03/06/25 Adriana Brand 03/06/25 documented as of this encounter
--- OUTSIDE RECORDS SUMMARY | 2025-05-03 00:11 | XMS_ITS | Encounter Summary ---
Author Organization [employer] Address [address] [place] [address] 7t [place] [address] Care Team Providers Care Quality Control Lead Name Role Phone Ibeth Lassiter MD Primary Care Provider [phone] Amber Marie Primary Care Provider [phone] Bailee Lewis MD Primary Care Provider [phone] Ibeth Lassiter MD Primary Care Provider [phone] Bailee Lewis MD Primary Care Provider [phone] Simi Kauffman RN Unavailable [phone] Adriana Brand Unavailable Reason for Visit * Reason Onset Date Comments Med Refill 02/15/2024 Encounter Details Date Type Department Care Team ([facility] st Contact Info) Description 02/15/2024 Refill [facility] MED & PEDS 505 [place] [address] Ibeth Lassiter MD 505 [place] [address] Acute necrotizing pancreatitis Social History Tobacco Use [...] hr ago * Telephone Encounter - Anastasiia Ocamop RN - 02/25/2024 3:10 PM EDT TC back to pt. PT requesting a refill. State she;ll discuss the taper with PCP at the appt on 02/29/24. documented in this encounter Plan of Treatment Upcoming Encounters Date Type Department Care Team (Late st Contact Info) Description 05/04/2025 11:00 AM EST Office Visit [facility] MEDICINE [address] [place] [address] 05/05/2025 9:00 AM EST Clinical Support [address] [address] Ena Grant RN 05/07/2025 2:00 PM EST Office Visit [address] [address] Claudia Ansari MD [address] [place] [address] documented as of this encounter Visit Diagnoses Diagnosis Acute necrotizing pancreatitis Acute pancreatitis documented in this encounter Additional Health Concerns Assessment Noted Time PHQ-9 Depression Total Score: 24 024 3:55 PM EDT documented as of this encounter Care Teams Quality Control Lead Relationship Specialty Start Date End Date Ibeth Lassiter MD [address] [place] [address] PCP - General Family Medicine 12/16/21 10/01/24 Amber Marie FNP [address] [place] [address] PCP - General Family Medicine 10/02/24 10/08/24 Bailee Lewis MD [address] [place] [address] PCP - General Family Medicine 10/09/24 10/12/24 Ibeth Lassiter MD 505 [place] [address] PCP - General Family Medicine 10/13/24 11/13/24 Bailee Lewis MD [address] [place] [address] PCP - General Family Medicine 11/14/24 Simi Kauffman RN 505 [place] [address] Registered Nurse Family Medicine 03/06/25 Adriana Brand 03/06/25 documented as of this encounter
--- OUTSIDE RECORDS SUMMARY | 2025-05-03 00:11 | XMS_ITS | Encounter Summary ---
Author Organization [employer] Address [address] [facility] 7t [place] [address] Care Team Providers Care Hide Or Skin Buffer Name Role Phone Ibeth Lassiter MD Primary Care Provider [phone] Amber Marie Primary Care Provider [phone] Bailee Lewis MD Primary Care Provider [phone] Ibeth Lassiter MD Primary Care Provider [phone] Bailee Lewis MD Primary Care Provider [phone] Simi Kauffman RN Unavailable [phone] Adriana Brand Unavailable Reason for Visit * Reason Onset Date Comments Appointment Request 06/27/2024 Encounter Details Date Type Department Care Team ([facility] st Contact Info) Description 06/27/2024 Telephone [facility] MEDICINE 230 [place] [address] Ibeth Lassiter MD [address] [place], [place] [phone] Appointment Request Social History Tobacco Use Types [...] R/s appt from 06/12. Contact pt at [phone] documented in this encounter Plan of Treatment Upcoming Encounters Date Type Department Care Team (Late st Contact Info) Description 05/04/2025 11:00 AM EST Office Visit [address] [address] 05/05/2025 9:00 AM EST Clinical Support [address] [address] Ena Grant RN 05/07/2025 2:00 PM EST Office Visit [address] [address] Claudia Ansari MD 230 [place] [address] documented as of this encounter Visit Diagnoses Not on filedocumented in this encounter Additional Health Concerns Assessment Noted Time PHQ-9 Depression Total Score: 025 10:04 AM EST documented as of this encounter Care Teams Hide Or Skin Buffer Relationship Specialty Start Date End Date Ibeth Lassiter MD 230 [place] [address] PCP - General Family Medicine 12/16/21 10/01/24 Amber Marie FNP [address] [place] [address] PCP - General Family Medicine 10/02/24 10/08/24 Bailee Lewis MD 230 [place] [address] PCP - General Family Medicine 10/09/24 10/12/24 Ibeth Lassiter MD 505 [place] [address] PCP - General Family Medicine 10/13/24 11/13/24 Bailee Lewis MD [address] [place] [address] PCP - General Family Medicine 11/14/24 Simi Kauffman RN 505 [place] [address] Registered Nurse Family Medicine 03/06/25 Adriana Brand 03/06/25 documented as of this encounter
--- OUTSIDE RECORDS SUMMARY | 2025-05-03 00:11 | XMS_ITS | Encounter Summary ---
Author Organization [employer] Address [address] [place] [address] 7t [place] [address] Care Team Providers Care Senior Software Engineering Manager Name Role Phone Amber Marie Primary Care Provider [phone] Bailee Lewis MD Primary Care Provider [phone] Ibeth Lassiter MD Primary Care Provider [phone] Bailee Lewis MD Primary Care Provider [phone] Simi Kauffman RN Unavailable [phone] Adriana Brand Unavailable Reason for Visit * Reason Onset Date Comments Med Refill 10/05/2024 Encounter Details Date Type Department Care Team (Late st Contact Info) Description 10/05/[address] [facility] MED & PEDS 505 [place], [place] [phone] Ibeth Lassiter MD 505 [place], [place] [phone] Alcohol-induced chronic pancreatitis (CMS/HCC) Social History Tobacco [...] Description 05/04/2025 11:00 AM EST Office Visit [address] [address] 05/05/2025 9:00 AM EST Clinical Support [address] [address] Ena Grant RN 05/07/2025 2:00 PM EST Office Visit [address] [address] Claudia Ansari MD [address] [place] [address] documented as of this encounter Visit Diagnoses Diagnosis Alcohol-induced chronic pancreatitis (CMS/HCC) (HCC) Chronic pancreatitis documented in this encounter Additional Health Concerns Assessment Noted Time PHQ-9 Depression Total Score: 22 025 10:04 AM EST documented as of this encounter Care Teams Senior Software Engineering Manager Relationship Specialty Start Date End Date Amber Marie FNP 230 [place] [address] PCP - General Family Medicine 10/02/24 10/08/24 Bailee Lewis MD 230 [place] [address] PCP - General Family Medicine 10/09/24 10/12/24 Ibeth Lassiter MD 505 [place] [address] PCP - General Family Medicine 10/13/24 11/13/24 Bailee Lewis MD 230 [place] [address] PCP - General Family Medicine 11/14/24 Simi Kauffman RN 505 [place] [address] Registered Nurse Family Medicine 03/06/25 Adriana Brand 03/06/25 documented as of this encounter
--- OUTSIDE RECORDS SUMMARY | 2025-05-03 00:11 | XMS_ITS | Encounter Summary ---
Author Organization [employer] Address [address] [place] [address] 7t [place] [address] Care Team Providers Care Director Software Development Name Role Phone Ibeth Lassiter MD Primary Care Provider [phone] Amber Marie Primary Care Provider [phone] Bailee Lewis MD Primary Care Provider [phone] Ibeth Lassiter MD Primary Care Provider [phone] Bailee Lewis MD Primary Care Provider [phone] Simi Kauffman RN Unavailable [phone] Adriana Brand Unavailable Reason for Visit * Reason Onset Date Comments Med Refill 02/07/2024 Encounter Details Date Type Department Care Team ([facility] st Contact Info) Description 02/07/2024 Refill [facility] MED & PEDS [address] [place] [address] Ibeth Lassiter MD [address] [place], [place] [phone] Acute necrotizing pancreatitis Social History Tobacco Use [...] Description 05/04/2025 11:00 AM EST Office Visit [address] [address] 05/05/2025 9:00 AM EST Clinical Support [address] [address] Ena Grant RN 05/07/2025 2:00 PM EST Office Visit [address] [address] Claudia Ansari MD [address] [place] [address] documented as of this encounter Visit Diagnoses Diagnosis Acute necrotizing pancreatitis Acute pancreatitis documented in this encounter Additional Health Concerns Assessment Noted Time PHQ-9 Depression Total Score: 24 024 3:55 PM EDT documented as of this encounter Care Teams Director Software Development Relationship Specialty Start Date End Date Ibeth Lassiter MD [address] [place] [address] PCP - General Family Medicine 12/16/21 10/01/24 Amber Marie FNP 230 [place] [address] PCP - General Family Medicine 10/02/24 10/08/24 Bailee Lewis MD [address] [place] [address] PCP - General Family Medicine 10/09/24 10/12/24 Ibeth Lassiter MD [address] [place] [address] PCP - General Family Medicine 10/13/24 11/13/24 Bailee Lewis MD [address] [place] [address] PCP - General Family Medicine 11/14/24 Simi Kauffman, EL [address] [place] [address] Registered Nurse Family Medicine 03/06/25 Adriana Brand 03/06/25 documented as of this encounter
--- OUTSIDE RECORDS SUMMARY | 2025-05-03 00:11 | XMS_ITS | Encounter Summary ---
Author Organization [employer] Address [address] [place] [address] 7t [place] [address] Care Team Providers Care Produce Department Supervisor Name Role Phone Ibeth Lassiter MD Primary Care Provider [phone] Bailee Lewis MD Primary Care Provider [phone] Simi Kauffman RN Unavailable [phone] Adriana Brand Unavailable Reason for Visit * Reason Onset Date Comments Med Refill 10/30/2024 Encounter Details Date Type Department Care Team ([facility] st Contact Info) Description 10/30/[address] [facility] MED & PEDS [address] [place], [place] [phone] Luciano Flores MD 505 [place], [place] [phone] Pain of upper abdomen Social History Tobacco [...] 05/04/2025 11:00 AM EST Office Visit [address] [address] 05/05/2025 9:00 AM EST Clinical Support [address] [address] Ena Grant RN 05/07/2025 2:00 PM EST Office Visit [address] [address] Claudia Ansari MD [address] [place] [address] documented as of this encounter Visit Diagnoses Diagnosis Pain of upper abdomen documented in this encounter Additional Health Concerns Assessment Noted Time PHQ-9 Depression Total Score: 6 10/10/19 25 10:57 AM EDT documented as of this encounter Care Teams Produce Department Supervisor Relationship Specialty Start Date End Date Ibeth Lassiter MD 505 [place] [address] PCP - General Family Medicine 10/13/24 11/13/24 Bailee Lewis MD [address] [place] [address] PCP - General Family Medicine 11/14/24 Simi Kauffman RN [address] [place] [address] [place] [address] Registered Nurse Family Medicine 03/06/25 Adriana Brand 03/06/25 documented as of this encounter
--- OUTSIDE RECORDS SUMMARY | 2025-05-03 00:11 | XMS_ITS ---
Author Organization [employer] Address [address] [facility] 7t [place] [address] Care Team Providers Care Resistor Winder Name Role Phone Bailee Lewis MD Primary Care Provider [phone] Simi Kauffman RN Unavailable [phone] Adriana Brand Unavailable [facility] Complex Status:Outreach In Progress (Enrolling) Start date:03/06/2025 Enrollment reason:ADT Feed Overview ED- Pt went [facility] on 03/05/[place]. Please outreach for enrollment. Case Team Name Relationship Phone Adriana Brand(Responsible Staff) [phone] Continued Care and Services Coordination
--- OUTSIDE RECORDS SUMMARY | 2025-05-03 00:11 | XMS_ITS | Encounter Summary ---
Author Organization [employer] Address [address] [place] [address] Care Team Providers Care Reporter Name Role Phone Ibeth Lassiter MD Primary Care Provider [phone] Bailee Lewis MD Primary Care Provider [phone] Simi Kauffman RN Unavailable [phone] Adriana Brand Unavailable Reason for Visit * Reason Onset Date Comments Medication Question 11/12/2024 Encounter Details Date Type Department Care Team (Late st Contact Info) Description 11/12/2024 Telephone [facility] [address] [place] [address] Ibeth Lassiter MD [address] [place], [place] [id number] Medication Question Social History Tobacco Use Types [...] half the days 11/14/2024 9:43 AM EDT B Edith Martinez MA * Trouble falling or staying asleep, or sleeping too much Answer Date of Assessment Author More than half the days 11/14/2024 9:43 AM EDT B Edith Martinez MA * Feeling tired or having little [...] every day 11/14/2024 9:43 AM EDT Edith Whalen MA * Trouble concentrating on things, such [...] 9:43 AM RAFITAT Edith Muse MA * Thoughts that you would be better off or hurting yourself in some way Answer Date of Assessment Author Not at all 11/14/2024 9:43 AM Edith Anton MA * Patient Health Questionnaire-9 Score Answer Date of Assessment Author 16 11/14/2024 9:43 AM RAFITAT Edith Muse MA * How difficult have these problems [...] her upcoming TP. Please contact pt at [phone]. documented in this encounter Plan of Treatment Upcoming Encounters Date Type Department Care Team (Late st Contact Info) Description 05/04/2025 11:00 AM EST Office Visit [address] [address] 05/05/2025 9:00 AM EST Clinical Support [address] [place] [address] Ena Grant, EL 05/07/2025 2:00 PM EST Office Visit [facility] MED[facility]INE [address] [place] [address] Claudia Ansari MD [address] [place] [address] documented as of this encounter Visit Diagnoses Not on filedocumented in this encounter Additional Health Concerns Assessment Noted Time PHQ-9 Depression Total Score: 6 10/10/19 10:57 AM EDT documented as of this encounter Care Teams Reporter Relationship Specialty Start Date End Date Ibeth Lassiter MD [address] [place] [address] PCP - General Family Medicine 10/13/24 11/13/24 Bailee Lewis MD [address] [place] [id number] PCP - General Family Medicine 11/14/24 Simi Kauffman RN [address] [place] [address] Registered Nurse Family Medicine 03/06/25 Adriana Brand 03/06/25 documented as of this encounter
--- OUTSIDE RECORDS SUMMARY | 2025-05-03 00:11 | XMS_ITS ---
Author Organization [employer] Address [address] [facility] [address] [place] [address] Care Team Providers Care Electronic Game Developer Name Role Phone Bailee Lewis MD Primary Care Provider [phone] Simi Kauffman RN Unavailable [phone] Adriana Brand Unavailable CM Complex Status:Outreach In Progress (Enrolling) Start date:03/06/2025 Enrollment reason:ADT Feed Overview ED- Pt went to [facility] Ed on 03/05/25. Case Team Name Relationship Phone Simi Kauffman RN(Responsible Staff) Registered Nurse [phone] Continued Care and Services Coordination
--- OUTSIDE RECORDS SUMMARY | 2025-05-03 00:11 | XMS_ITS | Encounter Summary ---
Author Organization [employer] Address [address] [facility] [address] [place] [address] Care Team Providers Care Mountain Guide Name Role Phone Ibeth Lassiter MD Primary Care Provider [phone] Amber Marie Primary Care Provider [phone] Bailee Lewis MD Primary Care Provider [phone] Ibeth Lassiter MD Primary Care Provider [phone] Bailee Lewis MD Primary Care Provider [phone] Simi Kauffman RN Unavailable [phone] Adriana Brand Unavailable Reason for Visit * Reason Comments Med Refill Encounter Details Date Type Department Care Team ([facility] Contact Info) Description 12/14/2023 Refill [facility] [address] [place], [place] [phone] Ibeth Lassiter MD [address] [place], [place] [phone] Mood disorder (CMS/HCC) Social History Tobacco Use [...] 05/04/2025 11:00 AM EST Office Visit [address] [address] 05/05/2025 9:00 AM EST Clinical Support [address] [address] Ena Grant RN 05/07/2025 2:00 PM EST Office Visit [address] [address] Claudia Ansari MD [address] [place] [phone] documented as of this encounter Visit Diagnoses Diagnosis Mood disorder (CMS/HCC) Unspecified episodic mood disorder documented in this encounter Additional Health Concerns Assessment Noted Time PHQ-9 Depression Total Score: 24 024 3:55 PM EDT documented as of this encounter Care Teams Mountain Guide Relationship Specialty Start Date End Date Ibeth Lassiter MD [address] [place] [address] PCP - General Family Medicine 12/16/21 10/01/24 Amber Marie FNP [address] [place] [address] PCP - General Family Medicine 10/02/24 10/08/24 Bailee Lewis MD [address] [place] [address] PCP - General Family Medicine 10/09/24 10/12/24 Ibeth Lassiter MD [address] [place] [address] PCP - General Family Medicine 10/13/24 11/13/24 Bailee Lewis MD [address] [place] [address] PCP - General Family Medicine 11/14/24 Simi Kauffman, EL [address] [place] [address] Registered Nurse Family Medicine 03/06/25 Adriana Brand 03/06/25 documented as of this encounter
--- OUTSIDE RECORDS SUMMARY | 2025-05-03 00:11 | XMS_ITS | Clinical Summary ---
Author Organization [employer] Address [address] [place] [address] Care Team Providers Care Consumer Affairs Director Name Role Phone Bailee Lewis MD Primary Care Provider [phone] Simi Kauffman RN Unavailable [phone] Adriana Brand Unavailable Allergies Active Allergy Reactions Criticality Noted Date Comments Fish Allergy High 04/13/2025 patient states he throat feels like closing when eating fish Penicillins Hives,Shortness of breath High 12/20/2021 Product containing penicillin (product) Medications * This document contains information received from the source organization and may not represent a complete record from that organization. sertraline (Zoloft) 100 MG tabletIndications :Severe episode of recurrent major depressive disorder, without psychotic features (CMS/HCC) (HCC),Anxiety Take 1 tablet (100 mg) by mouth Once per day. 90 tablet 3 025 2025 Active pantoprazole (ProtoNix) 40 MG EC tabletIndications :Alcohol-induced chronic pancreatitis (CMS/HCC) (HCC) Take 1 tablet (40 mg) by mouth before breakfast. Do not crush, chew, or split. 90 tablet 3 025 Active Iron, Ferrous Sulfate, 325 (65 Fe) MG tablet Take 1 tablet by mouth Once per day. 90 tablet 3 025 Active pregabalin (Lyrica) 300 MG capsuleIndication s:Chronic abdominal pain Take 1 capsule (300 mg) by mouth 2 times daily. 60 capsule 1 025 Active senna-docusate (Peggy-Colace) 4.3-25 mg half tablet Take 2 tablets by mouth. Active QUEtiapine (SEROquel) 100 MG tablet TAKE 1 TO 2 TABLETS(100 TO 200 MG) BY MOUTH AT BEDTIME NEEDED FOR INSOMNIA 60 tablet Active OneLAX 10 MG suppository UNWRAP AND INSERT 1 SUPPOSITORY RECTALLY DAILY NEEDED FOR CONSTIPATION Active bismuth subsalicylate (Pepto Bismol) 262 MG chewable tablet CHEW AND SWALLOW 2 TABLETS BY MOUTH FOUR TIMES DAILY Active albuterol 108 (90 Base) MCG/ACT inhalerIndication s:Exercise-induce d asthma Inhale 2 puffs every 6 (six) hours if needed for shortness of breath. 18 g 5 Active Creon 10587-16851 units capsuleIndication s:Alcohol-induced chronic pancreatitis (CMS/HCC) (HCC) Take 1 capsule by mouth with breakfast, with lunch, and with evening meal. 270 capsule 3 Active ibuprofen 800 MG tabletIndications :Alcohol-induced chronic pancreatitis (CMS/HCC) (HCC) TAKE 1 TABLET BY MOUTH ONCE A DAY NEEDED 60 tablet 1 Active naloxone (Narcan) 4 mg/0.1 mL nasal sprayIndications: Alcohol-induced chronic pancreatitis (CMS/HCC) (HCC),Chronic abdominal pain Administer 1 spray (4 mg) into affected nostril(s) if needed for opioid reversal. 2 each 2 Active ondansetron ODT (Zofran-ODT) 4 MG disintegrating tablet Take 1 tablet (4 mg) by mouth every 8 (eight) hours if needed for nausea or vomiting. 20 tablet 1 Active HYDROmorphone (Dilaudid) 4 MG tabletIndications :Alcohol-induced chronic pancreatitis (CMS/HCC) (HCC) Take 2 tablets (8 mg) by mouth every 8 (eight) hours if needed for severe pain for up to 7 days. 42 tablet 025 2024 Active albuterol 108 (90 Base) MCG/ACT inhalerIndication s:Exercise-induce d asthma Inhale 2 puffs every 6 (six) hours if needed for shortness of breath. 18 g 5 01/26/2 023 2024 Discontinued(R eorder (will not trigger notification to Pharmacy)) senna-docusate sodium (Senokot-S) 8.6-50 MG tablet Take 2 tablets by mouth Once per day. 180 tablet 1 024 2024 Discontinued(T herapy completed) ondansetron (Zofran) 4 MG tablet Take 1 tablet (4 mg) by mouth every 8 (eight) hours if needed for nausea or vomiting. 10 tablet 2024 Discontinued(T herapy completed) Creon 23150-67612 units capsuleIndication s:Alcohol-induced chronic pancreatitis (CMS/HCC) (HCC) Take 1 capsule by mouth with breakfast, with lunch, and with evening meal. 270 capsule 3 2024 Discontinued(R eorder (will not trigger notification to Pharmacy)) ibuprofen 800 MG tabletIndications :Alcohol-induced chronic pancreatitis (CMS/HCC) (HCC) TAKE 1 TABLET BY MOUTH ONCE A DAY NEEDED 60 tablet 1 2024 Discontinued(R eorder (will not trigger notification to Pharmacy)) lactulose (Chronulac) 10 GM/15ML solution Take 15 mL (10 g) by mouth Once per day. 150 mL 3 2024 hydrOXYzine HCl (Atarax) 25 MG tablet Take 1 tablet (25 mg) by mouth if needed at bedtime for anxiety. 90 tablet 2024 Discontinued(R eorder (will not trigger notification to Pharmacy)) ondansetron ODT (Zofran-ODT) 4 MG disintegrating tablet DISSOLVE 1 TABLET ON THE TONGUE EVERY 8 HOURS NEEDED FOR NAUSEA AND VOMITING. 2024 Discontinued(R eorder (will not trigger notification to Pharmacy)) metroNIDAZOLE (Flagyl) 500 MG tablet Take 1 tablet by mouth 2 times daily. 2024 Discontinued(T herapy completed) doxycycline (Vibra-Tabs) 100 MG tablet Take 1 tablet by mouth 2 times daily. 2024 Discontinued(T herapy completed) buprenorphine (Butrans) 15 MCG/HRIndications :Alcohol-induced chronic pancreatitis (CMS/HCC) (HCC) Place 1 patch on the skin 1 (one) time per week. Do not start before March 06, 2025. 4 patch 5 2024 Discontinued(T herapy completed) Buprenorphine HCl-Naloxone HCl (Suboxone) 8-[address] under the tongue. 2024 Discontinued(T herapy completed) HYDROmorphone (Dilaudid) 4 MG tablet Take 2 tablets by mouth every 6 (six) hours if needed for pain. 2024 Discontinued(R eorder (will not trigger notification to Pharmacy)) hydrOXYzine HCl (Atarax) 25 MG tablet Take 1 tablet (25 mg) by mouth if needed at bedtime for anxiety. 90 tablet 2024 Discontinued(T herapy completed) ibuprofen 800 MG tabletIndications :Alcohol-induced chronic pancreatitis (CMS/HCC) (HCC) TAKE 1 TABLET BY MOUTH ONCE A DAY NEEDED 60 tablet 1 2024 Discontinued(R eorder (will not trigger notification to Pharmacy)) ondansetron ODT (Zofran-ODT) 4 MG disintegrating tablet Take 1 tablet (4 mg) by mouth every 8 (eight) hours if needed for nausea or vomiting. 20 tablet 1 2024 Discontinued(R eorder (will not trigger notification to Pharmacy)) naloxone (Narcan) 4 mg/0.1 mL nasal spray Administer 4 mg into affected nostril(s). 2024 Discontinued(R eorder (will not trigger notification to Pharmacy)) naloxone (Narcan) 4 mg/0.1 mL nasal sprayIndications: Alcohol-induced chronic pancreatitis (CMS/HCC) (HCC),Chronic abdominal pain Administer 1 spray (4 mg) into affected nostril(s) if needed for opioid reversal. 2 each 2 2024 Discontinued(R eorder (will not trigger notification to Pharmacy)) HYDROmorphone (Dilaudid) 4 MG tabletIndications :Alcohol-induced chronic pancreatitis (CMS/HCC) (HCC),Chronic abdominal pain Take 4 tablets (16 mg) by mouth every 4 (four) hours if needed for moderate pain or severe pain for up to 3 days. 72 tablet 2024 Discontinued(D ose adjustment) morphine CR (MS Contin) 30 MG 12 hr tablet Take 1 tablet by mouth 2 times daily. 2024 Discontinued(T herapy completed) Prevacid SoluTab 30 MG disintegrating tablet TAKE 2 TABLETS BY MOUTH THIS EVENING 09/17. THEN TAKE 2 TABLETS BY MOUTH TWO TIMES A DAY BEFORE BREAKFAST AND DINNER FOR 5 DAYS 2024 Discontinued(T herapy completed) oxyCODONE (Roxicodone) 5 MG immediate release tablet TAKE 1 TABLET BY MOUTH EVERY 8 HOURS NEEDED FOR PAIN ON A SCALE OF 7-10 2024 Discontinued(I neffective) tetracycline 500 MG capsule TAKE 1 CAPSULE BY MOUTH FOUR TIMES DAILY FOR 14 DAYS 2024 Discontinued(T herapy completed) traMADol (Ultram) 50 MG tablet Take 1 tablet by mouth every 6 (six) hours if needed for pain. 2024 Discontinued(T herapy completed) HYDROmorphone (Dilaudid) 4 MG tabletIndications :Alcohol-induced chronic pancreatitis (CMS/HCC) (HCC) Take 2 tablets (8 mg) by mouth every 6 (six) hours if needed for severe pain for up to 7 days. 56 tablet 2024 Discontinued(D ose adjustment) Active Problems Problem Noted Date Diagnosed Date Hypokalemia 04/09/2025 Anxiety 01/14/2025 Chronic GERD 11/14/2024 Pancreatic steatorrhea 11/14/2024 Transaminitis 11/14/2024 Long-term current use of opiate analgesic 2024 Overview (03/10/2025): Medication: Butrans 15mcg, Vicodin 10/650 for breakthrough Indication: chronic pancreatitis Last [employer] Agreement: 10/2024 Other factors: multiple ER visits and hospitalizations [...] 8.6-50 MG tablet Other chronic pain 12/03/2023 Assessment & Plan (01/28/2025 9:51 AM EDT): Pt attended and participated in chronic pain group today - good engagement with group model of care - continue to use combination of non-pharmacological modalities to address pain - followup in 2-4 weeks Chronic pancreatitis (CMS/HCC) 11/30/2023 Assessment & Plan (04/14/2025 2:50 PM EST): Pt attended and participated in chronic pain group today - good engagement with group model of care - continue to use combination of non-pharmacological modalities to address pain - followup in 2 weeks Assessment & Plan (03/10/2025 4:07 PM EDT): Pt attended and participated in chronic pain group today - good engagement with group model of care - continue to use combination of non-pharmacological modalities to address pain - followup in 2 weeks Assessment & Plan (01/14/2025 7:15 AM EDT): [...] hydration Complete abstinence from alcohol F/u with [facility] for MRI imaging review and potential surgical [...] of pancreatitis 10/25/2023 History of substance abuse (CMS/HCC) 09/24/2023 Overview (09/24/2023): ER visit 06/24/2011 Chronic abdominal pain 09/24/2023 Assessment & Plan (04/26/2025 4:40 PM EST): -CT abdomen pelvis w IV con 01/2025 No acute findings. No abnormalities of the pancreas seen. Diffuse fatty infiltration of the liver. Large amount of fecal loading within the colon. 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 Mild prominence of the pancreatic duct in the body without change. There is no enhancing liver mass. The hepatic and portal veins are patent. There is no intrahepatic biliary dilatation.Hepatic steatosis. -US abdomen complete 07/2024 Status post cholecystectomy. No hydronephrosis in either kidney. No ascites. Up to normal limits spleen size. Normal liver. Inadequate evaluation of the pancreas. Pt describes pain as usual ,currently with no alarming features that requires to have ED evaluation -I discussed w pt informed and I will only prescribe pain med Hydromorphone for 3 days until has f up apt w Surgeon to discuss further plan .Advised pt to take hydromorphone 4 mg tab ( To take 2 tablets for moderate pain and 4 tablets for more severe pain) e 4 hours as per last hospital discharge -Will need close f up for opiod contract and refills -sent message today to opioid contract RN to f pt and PCP updated ,will need to be evaluated if Suboxone will be resumed or not ,currently not on Suboxone -apt w [facility] provider in 05/07/2025 for HFU and 05/04/2025 w chronic pain group Alcohol use, unspecified, in remission Assessment & [...] intervention , Patient to reach out to [facility] team as needed, Comply with medication , Patient to engage in OP therapy , and Patient to reach out to [facility] as needed. Referral for [employer] will be placed. PVT (portal vein thrombosis) [...] (11/06/2022 9:25 AM EDT): Will refer to health clinician for further evaluation. Reproduced by examination, likely [...] hemoglobin electrophoresis. Will also schedule appointment with [facility] second cook and baker for AUB. Assessment & Plan (10/23/2022 4:36 [...] appt. Return precautions discussed. MDD (major depressive disord er), recurrent episode, severe (CMS/HCC) 04/15/2018 Assessment & Plan (12/24/2024 8:56 AM [...] (10/22/2024 12:46 PM EDT): Patient seen at [facility] [place] [place] due to abdominal pain. She was admitted [...] intervention , Patient to reach out to [facility] team as needed, Comply with medication , Patient to engage in OP therapy , and Patient to reach out to [facility] as needed. Referral for [employer] will be placed. Assessment & Plan (03/30/2023 [...] in-home therapist who has been assigned by [facility] to her child for bipolar [...] daily -Follow up in 4 weeks Encounters Date Type Department Care Team Description 05/01/2025 Refill [facility] [address] [place] [address] Bailee Lewis MD Alcohol-induced chronic pancreatitis (CMS/HCC) (HCC) 04/27/2025 Orders Only [facility] [address] [place] [address] Bailee Lewis MD Alcohol-induced chronic pancreatitis (CMS/HCC) ([facility]) (Primary Dx) 04/27/2025 Telephone [facility] [address] [place] [address] Ena Grant RN PA need for Hydromorphone 04/27/2025 Telephone [facility] [address] [place] [address] Bailee Lewis MD Care Coordination (HDF and Walkin center appointment) 04/27/2025 Telephone [facility] [address] [place] [address] Ena Grant RN [employer] Appt needed 04/25/2025 12:00 PM EST Office Visit [facility] [address] [place] [phone] Claudia Le MD Alcohol-induced chronic pancreatitis (CMS/HCC) (HCC) (Primary Dx); Chronic abdominal pain 04/25/2025 Travel 04/24/[address] [address] Bailee Lewis MD hydromorphone 04/22/2025 Patient Outreach [address] [address] Bailee Lewis MD Transition Of Care (Tcm) (HDF- scheduled and SDOH screening completed on 11/25/2024) 04/22/[address] [address] Bailee Lewis MD Hospital Follow-up 04/20/2025 Patient Outreach [address] [address] Bailee Lewis MD 04/17/2025 Patient Outreach [address] [address] Bailee Lewis MD 04/15/2025 Patient Outreach [address] [address] Bailee Lewis MD 04/13/2025 11:00 AM EST Office Visit [address] [address] Bailee Lewis MD Alcohol-induced chronic pancreatitis (CMS/HCC) (HCC) 04/13/2025 Travel 04/13/2025 Patient Outreach [address] [address] Bailee Lewis MD 04/08/[address] [address] Bailee Lewis MD Call Back Request 04/08/2025 Patient Outreach [address] [address] Bailee Lewis MD Care Coordination (CM/CHW outreach) 04/06/[address] [address] Bailee Lewsi MD FYI 04/06/2025 Travel 04/01/[address] [address] Bailee Lewis MD 03/26/[address] [address] Ena Gratn, RN Cancelled [employer] RV's 03/25/2025 Patient Outreach [address] [address] Bailee Lewis MD 03/24/2025 Patient Outreach [address] [address] Bailee Lewis MD Care Management ([facility]- initial assessment/ enrollment. ) 03/23/2025 Patient Outreach [address] [address] Bailee Lewis MD 03/16/2025 Patient Outreach [address] [address] Bailee Lewis MD 03/12/[address] [address] Ena Grant, EL [employer] RV appt today 03/09/2025 11:00 AM EDT Office Visit [address] [address] Bailee Lewis MD Alcohol-induced chronic pancreatitis (CMS/HCC) (HCC) (Primary Dx); Chronic abdominal pain; Long-term current use of opiate analgesic 03/09/2025 Patient Outreach [address] [address] Bailee Lewis MD 03/09/2025 Patient Outreach [address] [address] Bailee Lewis MD Care Coordination (CM/CHW outreach) 03/09/2025 Travel 03/06/2025 Patient Outreach [address] [address] Bailee Lewis MD Care Coordination ([facility] chart review) 03/06/2025 Patient Outreach [address] [address] Bailee Lewis MD Care Management ([facility]- chart review) 03/06/2025 Patient Outreach [facility] [address] Bailee Lewis MD 03/03/2025 Travel 03/03/2025 Orders Only [facility] [address] [place] [address] Bailee Lewis MD Alcohol-induced chronic pancreatitis (CMS/HCC) 03/03/2025 Refill [facility] [address] [place] [address] Bailee Lewis MD Alcohol-induced chronic pancreatitis (CMS/HCC) 03/02/[address] [address] Bailee Lewis MD Call Back Request 02/26/2025 2:30 PM EDT Clinical Support [address] [address] Ena Grant RN Long-term current use of opiate analgesic (Primary Dx) 02/26/2025 Travel 02/25/[address] [address] Ena Grant RN Schedule [employer] RV 02/24/2025 Refill [facility] [address] [place] [address] Bailee Lewis MD Alcohol-induced chronic pancreatitis (CMS/HCC) 02/23/2025 11:00 AM EDT Office Visit [address] [address] Bailee Lewis MD Alcohol-induced chronic pancreatitis ([facility]/HCC) (Primary Dx); History of PCR DNA positive for HSV2; Prediabetes 02/23/2025 Travel 02/17/2025 Refill [facility] [address] [place] [address] Katt Woods MD Chronic abdominal pain 02/17/2025 Refill [facility] [address] [place] [address] Claudia Ansari MD Alcohol-induced chronic pancreatitis (CMS/HCC) 02/12/2025 10:00 AM EDT Clinical Support [facility] [address] [place] [address] Ena Grant RN Long-term current use of opiate analgesic (Primary Dx) 02/12/2025 Travel 02/10/2025 Refill [facility] [address] [place] [address] Claudia Ansari MD Alcohol-induced chronic pancreatitis (CMS/HCC) 02/09/2025 Telephone [facility] [address] [place], [place] [phone] Bailee Lewis MD Medication Question; Butrans 10mcg patches RX 01/27/25 02/01/2025 Refill [facility] [address] [place] [address] Bailee Lewis MD Chronic pancreatitis, unspecified pancreatitis type (CMS/HCC); Alcohol-induced chronic pancreatitis (CMS/HCC) from Last 3 Months Immunizations Immunization Administration Dates Next Due DTaP, 5 pertussis antigens 12/24/2000,,02/12/1996,12/12,1995 HPV, Quadrivalent 01/10/2008,10/07/2007,02/07/20 07 Hep B, Adolescent or Pediatric 02/12/1996,1995,1995 Hib (HbOC) 01/27/1997, 6,1995,11/24 IPV 12/24/2000, 6,1995,10/24 Influenza, Recombinant, inje ctable, preservative free 07/23/2009 Influenza, live, intranasal 04/04/2011 Influenza, seasonal, injecta ble, preservative free 07/05/2024,05/15/2014 MMR 09/08/1999,01/27/1997 Meningococcal MPSV4 07/08/2008 Novel [id number], all formulations 07/23/2009 Rho(D)-IG IM 05/22/2020,03/20/2020,11/16/2019 Tdap [...] Sign Reading Time Taken Comments Blood Pressure 120/74 04/25/2025 11:59 AM EST Pulse 94 04/25/2025 11:59 AM EST Temperature 36.2 C (97.1 F) 04/25/2025 11:59 AM EST Respiratory Rate 20 04/25/2025 11:59 AM EST Oxygen Saturation 97% 04/25/2025 11:59 AM EST Inhaled Oxygen Concentration - - Weight 74.8 kg (165 lb) 04/25/2025 11:59 AM EST Height 165.1 cm (5' 5 ) 04/25/2025 11:59 AM EST Body Mass Index 27.46 04/25/2025 11:59 AM EST Plan of Treatment Upcoming Encounters Date Type Department Care Team (Late st Contact Info) Description 05/04/2025 11:00 AM EST Office Visit [facility] [address] [place] [phone] 05/05/2025 9:00 AM EST Clinical Support [address] [address] Ena Grant RN 05/07/2025 2:00 PM EST Office Visit [address] [address] Claudia Ansari MD [address] [place] [phone] Health Maintenance Due Date Last Done Comments Family Planning (PISQ) 2010 Hepatitis A Vaccines (1 of 2 - Risk 2-dose series) 2014 Pneumococcal Vaccine: Pediatrics (0 to 5 Years) and At-Risk Patients (6 to 49) Years (1 of 2 - PCV) 2014 COVID-19 Vaccine ( - season) 2025 Influenza Vaccine (#1) 2025 , 05/15/2014, 04/04/2011, Additional history exists Depression Monitoring 06/26/2025 12/24/2024, 025 Diabetes: Hemoglobin A1C 08/19/2025 025, 02/29/2024, 09/18/2023 Alcohol/Substance Use Screening 09/26/2025 09/26/2024 Disability Screening 09/26/2025 09/26/2024 SDOH Screening 11/25/2025 11/25/2024 Pap Smear 11/28/2025 11/28/2022 Tobacco Screening 04/27/2026 04/27/2025 Lipid Panel 02/28/2029 02/29/2024 DTaP/Tdap/Td Vaccines (11 - Td or Tdap) [...] Completed 01/25/2022 Hepatitis C Screening Completed 10/26/2022 Meningococcal B Vaccine Aged Out No l [...] Comments POCT ANGE-14 URINE DRUG SCREEN Routine 02/26/2025 12:28 PM EDT Long-term current use of opiate analgesic POCT ANGE-14 URINE DRUG SCREEN Routine 02/12/2025 10:22 AM EDT Long-term current use of opiate analgesic POCT GLYCATED HEMOGLOBIN, TOTAL Routine 08/19/2024 1:34 [...] Relevant to Health Maintenance Results * POCT ANGE-14 Urine Drug Screen (02/26/2025 12:28 PM EDT) Only the most recent of2 resultswithin the time period is included. THC [...] obtained by clean catch procedure / Unknown 02/26/2025 12:28 PM EDT Narrative Ena Grant RN - 02/26/2025 12:28 PM EDT UTO[employer] cup Lot#[id number] Exp. 03/10/26 Internal Pass Control Bailee Lewis MD POINT OF CARE TEST ENTER/EDIT ORDERABLES Final Result * POCT HGB A1C (08/19/2024 1:34 PM EDT) Hemoglobin A1C 5.7 4.0 - 6.0 % [employer] Media Lot # [id number] Lot# Expiration Date Blood 08/19/2024 1:34 PM EDT Luciano Flores MD POINT OF CARE TEST ENTER/ED IT ORDERABLES Final Result * (ABNORMAL) Lipid Panel, Standard (02/29/2024 10:45 AM EDT) Triglycerides 94 <150 mg/dL [facility] Comment:Desirable Triglyceri de: less than 150 mg/dLBorderline High Triglyceride 150-199 mg/dLHigh Triglyceride: 200-499 mg/dLVery High Triglyceride: greater than or equal to 5OO mg/dL Cholesterol 112 <200 mg/dL [facility] Comment:Desirable Cholestero l: less than 200 mg/dLBorderline High Cholesterol: 200-239 mg/dLHigh Cholesterol: greater than 239 mg/dL LDL Cholesterol Calculated 54 <100 mg/dL [facility] Comment:Desirable LDL: less than 100 mg/dLNear Optimal/Above Optimal LDL: 110- 129 mg/dLBorderline High LDL: 130-159 mg/dLHigh LDL: 160-189 mg/dLVery High LDL: greater than or equal to 190 mg/dL HDL Cholesterol 40(L) >40 mg/dL [facility] Comment:Desirable HDL: great er than 40 mg/dL Note: This HDL assay may give artificially low results in patients with liver disease. Blood Venous blood specimen / Unknown 02/29/2024 10:45 AM EDT 02/29/2024 2:07 PM EDT Ibeth Lassiter MD LAB BLOOD ORDERABLES Final Re sult [facility] [address] [place] [address] [phone] * Image-Guided Pap with Age-Based Screening??with CT/NG,??Trichomonas (11/28/2022 1:22 PM EDT) Comment [employer] Comment: This order for age-based cervical cancer and STI screening follows ACOG guidelines(PB 168, 140, FJS877). See individual assays for performing site location. Clinical Information: None given [employer] LMP: NONE GIVEN [employer] Prev. PAP: NONE GIVEN [employer] Prev. BX: NONE GIVEN [employer] SOURCE: None given [employer] Statement Of Adequacy: [employer] Comment: Satisfactory for evaluation. Endocervical/transformation zone component present. Interpretation/Re sult: Negative for intraepithelial lesion or malignancy. [employer] COMMENT: This Pap test has been evaluated with computer assisted technology. [employer] [place] [employer] [place] [employer] Paper Tester: Harv[employer] Comment: SXA, CT(ASCP) CT screening location: [address] [address] PATHOLOGIST: [employer] Comment: Brady Ortiz M.D. Direct , Board Certified in Anatomic and Clinical Pathology and Cytopathology (electronic signature) Consulting Pathologist [facility] [address] [place] [address] [phone] (Always Message) [employer] Comment: EXPLANATORY NOTE: The Pap is a [...] RNA, TMA, Urogenital NOT DETECTED NOT DETECTED [employer] [place] [employer] Neisseria gonorrhoeae RNA, TMA, Urogenital NOT DETECTED NOT DETECTED [employer] Comment [employer] Comment: The analytical performance characteristics of this assay, when used to test SurePath(TM) specimens have been determined by [employer]. The modifications have not been cleared or approved by the FDA. This assay has been validated pursuant to the CLIA regulations and is used for clinical purposes. For additional information, please refer to [email or web address] (This link is being provided for information/ educational purposes only.) Trichomonas vaginalis, QL, TMA, PAP Vial NOT DETECTED NOT DETECTED [employer] Comment: The analytical performance characteristics of this assay have been determined by [employer]. The modifications have not been cleared or approved by the FDA. This assay has been validated pursuant to the CLIA regulations and is used for clinical purposes. For additional information, please refer to [email or web address] CK.Easyclass.com/ faq/Trichomonastma (This link is being provided for information/ educational purposes only.) Pap Vial 11/28/2022 1:22 PM EDT 11/29/2022 3:01 AM EDT Yuly Lopez [facility] LAB CYTOLOGY ORDERABLES F inal Result [facility] [address], [place] [address] [employer] [place] [employer] [address] [place] [address] * Hepatitis C Antibody with Reflex to HCV, RNA, Quantitative, Real-Time PCR (10/26/2022 9:56 AM EDT) Hepatitis C Antibody NON-REACT CASEY NON-REACT CASEY [employer] [place] [facility] Index 0.11 <1.00 [employer] [place] [facility] Comment: HCV antibody was non-reactive. There is no laboratory evidence of HCV infection. In most cases, no further action is required. However, if recent HCV exposure is suspected, a test for HCV RNA (test code 26526) is suggested. For additional information please refer to http://Disrupt CK.Easyclass.com/faq/UIG18g8 (This link is being provided for informational/ educational purposes only.) Blood Venous blood specimen / Unknown 10/26/2022 9:56 AM EDT 10/26/2022 9:58 AM EDT Narrative [facility] - 11/02/2022 2:12 PM EDT SPECIALIZED COLLECTION. PATIENT REFERRED TO ALTERNATE SITE. us Ibeth Lassiter MD LAB BLOOD ORDERABLES Final Re sult [facility] [address], [place] [address] [employer] [place] [facility] [address] [place] [address] * HIV 1/2 ANTIGEN/ANTIBODY,FOURTH GENERATION W/RFL (01/25/2022 12:04 PM EDT) [facility] HIV-1/2 ANTIGEN AND ANTIBODIES, 4TH GENERATION W/ REFLEX NON-REACT CASEY NON-REACT CASEY [facility] Comment: HIV-1 antigen and HIV-1/HIV-2 [...] purpose. For additional information please refer to http://Disrupt CK.Easyclass.com/faq/BCF611 (This link is being provided for informational/ educational purposes only.) The performance of this assay has not been clinically validated in patients less than 2 years old. 01/25/2022 12:0 4 PM EDT us Ibeth Lassiter MD LAB BLOOD ORDERABLES Final Re sult [facility] [address] from Last 3 Months or Most Recently Relevant to Health Maintenance Insurance [facility] C3 Care Teams Consumer Affairs Director Relationship Specialty Start Date End Date Bailee Lewis MD [address] [place] [address] PCP - General Family Medicine 11/14/24 Simi Kauffman RN [address] [place] [address] [place] [address] Registered Nurse Family Medicine 03/06/25 Adriana Brand 03/06/25
--- OUTSIDE RECORDS SUMMARY | 2025-05-03 00:11 | XMS_ITS | Encounter Summary ---
Author Organization [employer] Address 75 [facility] 7t [place] [address] Care Team Providers Care Customer Service Officer Name Role Phone Ibeth Lassiter MD Primary Care Provider [phone] Amber Marie Primary Care Provider [phone] Bailee Lewis MD Primary Care Provider [phone] Ibeth Lassiter MD Primary Care Provider [phone] Bailee Lewis MD Primary Care Provider [phone] Simi Kauffman RN Unavailable [phone] Adriana Brand Unavailable Reason for Visit * Reason Onset Date Comments Medication Question 09/23/2024 Encounter Details Date Type Department Care Team (Late st Contact Info) Description 09/23/2024 Telephone [facility] MEDICINE 230 [place] [address] Ibeth Lassiter MD [address] [place], [place] [phone] Medication Question Social History Tobacco Use Types [...] - 09/26/2024 1:19 PM EDT Tc to [facility] requesting clarification on rx Morphine that was [...] Med name (morphine) Please return call to [employer]'s [phone] documented in this encounter Plan of Treatment Upcoming Encounters Date Type Department Care Team (Late st Contact Info) Description 05/04/2025 11:00 AM EST Office Visit [address] [address] 05/05/2025 9:00 AM EST Clinical Support [address] [address] Ena Grant RN 05/07/2025 2:00 PM EST Office Visit [address] [address] Claudia Ansari MD [address] [place] [address] documented as of this encounter Visit Diagnoses Not on filedocumented in this encounter Additional Health Concerns Assessment Noted Time PHQ-9 Depression Total Score: 025 10:04 AM EST documented as of this encounter Care Teams Customer Service Officer Relationship Specialty Start Date End Date Ibeth Lassiter MD [address] [place] [address] PCP - General Family Medicine 12/16/21 10/01/24 Amber Marie FNP [address] [place] [address] PCP - General Family Medicine 10/02/24 10/08/24 Bailee Lewis MD [address] [place] [address] PCP - General Family Medicine 10/09/24 10/12/24 Ibeth Lassiter MD [address] [place] [address] PCP - General Family Medicine 10/13/24 11/13/24 Bailee Lewis MD 230 [place] [address] PCP - General Family Medicine 11/14/24 Simi Kauffman RN [address] [place] [address] Registered Nurse Family Medicine 03/06/25 Adriana Brand 03/06/25 documented as of this encounter
--- OUTSIDE RECORDS SUMMARY | 2025-05-03 00:11 | XMS_ITS | Encounter Summary ---
Author Organization [employer] Address 75 [facility] 7t [place] [address] Care Team Providers Care Bill Sorter Name Role Phone Ibeth Lassiter MD Primary Care Provider [phone] Amber Marie Primary Care Provider [phone] Bailee Lewis MD Primary Care Provider [phone] Ibeth Lassiter MD Primary Care Provider [phone] Bailee Lewis MD Primary Care Provider [phone] Simi Kauffman RN Unavailable [phone] Adriana Brand Unavailable Reason for Visit * Reason Onset Date Comments Med Refill 01/01/2024 Encounter Details Date Type Department Care Team (Late st Contact Info) Description 01/01/2024 Telephone [facility] MEDICINE 230 [place] [address] Ibeth Lassiter MD [address] [place], [place] [phone] Med Refill Social History Tobacco Use Types [...] information. Pt is advised to come to [facility] in [facility] today or tomorrow if needed. [...] Aguilar Sent: 01/12/2024 9:34 PM EDT To: [facility] Front Office Subject: Appointment Request Appointment Request From: Deepti Aguilar With Provider: Ibeth Lassiter MD [[facility] MED & PEDS] Preferred Date Range: [...] 30 MG tablet To be sent to: [facility] [address] [place] [address] documented in this encounter Plan of Treatment Upcoming Encounters Date Type Department Care Team (Late st Contact Info) Description 05/04/2025 11:00 AM EST Office Visit [address] [address] 05/05/2025 9:00 AM EST Clinical Support [address] [address] Ena Grant RN 05/07/2025 2:00 PM EST Office Visit [address] [address] Claudia Ansari MD 230 [place] [address] documented as of this encounter Visit Diagnoses Not on filedocumented in this encounter Additional Health Concerns Assessment Noted Time PHQ-9 Depression Total Score: 24 024 3:55 PM EDT documented as of this encounter Care Teams Bill Sorter Relationship Specialty Start Date End Date Ibeth Lassiter MD 230 [place] [address] PCP - General Family Medicine 12/16/21 10/01/24 Amber Marie FNP 230 [place] [address] PCP - General Family Medicine 10/02/24 10/08/24 Bailee Lewis MD 230 [place] [address] PCP - General Family Medicine 10/09/24 10/12/24 Ibeth Lassiter MD 505 [place] [address] PCP - General Family Medicine 10/13/24 11/13/24 Bailee Lewis MD 230 [place] [address] PCP - General Family Medicine 11/14/24 Simi Kauffman, EL 505 [place] [address] Registered Nurse Family Medicine 03/06/25 Adriana Brand 03/06/25 documented as of this encounter
--- OUTSIDE RECORDS SUMMARY | 2025-05-03 00:11 | XMS_ITS | Encounter Summary ---
Author Organization [employer] Address [address] [place] [address] 7t [place] [address] Care Team Providers Care Global Logistics Manager Name Role Phone Amber Marie Primary Care Provider [phone] Bailee Lewis MD Primary Care Provider [phone] Ibeth Lassiter MD Primary Care Provider [phone] Bailee Lewis MD Primary Care Provider [phone] Simi Kauffman RN Unavailable [phone] Adriana Brand Unavailable Reason for Visit * Reason Onset Date Comments Med Refill 10/07/2024 Encounter Details Date Type Department Care Team (Late st Contact Info) Description 10/07/2024 Refill [facility] MED & PEDS 505 [place], [place] [phone] bIeth Lassiter MD 505 [place], [place] [phone] Alcohol-induced chronic pancreatitis (CMS/HCC) Social History Tobacco [...] to sit still 0 10/09/2024 10:57 AM Doreen Graves RN Becoming easily annoyed or irritable 1 10/09/2024 10:57 AM Doreen Graves RN Feeling afraid as if somethi ng awful might happen 1 10/09/2024 10:57 AM Doreen Graves RN KENZIE-7 Total Score 5 10/09/2024 10:57 AM Doreen Graves RN documented as of this encounter Plan of Treatment Upcoming Encounters Date Type Department Care Team (Late st Contact Info) Description 05/04/2025 11:00 AM EST Office Visit [address] [address] 05/05/2025 9:00 AM EST Clinical Support [address] [address] Ena Grant RN 05/07/2025 2:00 PM EST Office Visit [address] [address] Claudia Ansari MD [address] [place] [address] documented as of this encounter Visit Diagnoses Diagnosis Alcohol-induced chronic pancreatitis (CMS/HCC) (HCC) Chronic pancreatitis documented in this encounter Additional Health Concerns Assessment Noted Time PHQ-9 Depression Total Score: 22 025 10:04 AM EST documented as of this encounter Care Teams Global Logistics Manager Relationship Specialty Start Date End Date Amber Marie FNP [address] [place] [address] PCP - General Family Medicine 10/02/24 10/08/24 Bailee Lewis MD [address] [place] [address] PCP - General Family Medicine 10/09/24 10/12/24 Ibeth Lassiter MD 505 [place] [address] PCP - General Family Medicine 10/13/24 11/13/24 Bailee Lewis MD [address] [place] [address] PCP - General Family Medicine 11/14/24 Simi Kauffman RN 505 [place] [address] Registered Nurse Family Medicine 03/06/25 Adriana Brand 03/06/25 documented as of this encounter
--- OUTSIDE RECORDS SUMMARY | 2025-05-03 00:11 | XMS_ITS | Encounter Summary ---
Author Organization [employer] Address 75 [facility] 7t [place] [address] Care Team Providers Care Government Professor Name Role Phone Ibeth Lassiter MD Primary Care Provider [phone] Amber Marie Primary Care Provider [phone] Bailee Lewis MD Primary Care Provider Ibeth Lassiter MD Primary Care Provider Bailee Lewis MD Primary Care Provider Simi Kauffman RN Unavailable [phone] Adriana Brand Unavailable Encounter Details Date Type Department Care Team (Late st Contact Info) Description 09/29/2024 Orders Only [facility] MEDICINE 230 [place] [address] Alyssia Jorgensen FNP [address] [place], [place] [phone] Long-term current use of opiate analgesic (Primary [...] Description 05/04/2025 11:00 AM EST Office Visit [address] [address] 05/05/2025 9:00 AM EST Clinical Support [address] [address] Ena Grant RN 05/07/2025 2:00 PM EST Office Visit [address] [address] Claudia Ansari MD [address] [place] [address] documented as of this encounter Visit Diagnoses Diagnosis Long-term current use of opiate analgesic- Primary Encounter for long-term (current) use of other medications documented in this encounter Additional Health Concerns Assessment Noted Time PHQ-9 Depression Total Score: 025 10:04 AM EST documented as of this encounter Care Teams Government Professor Relationship Specialty Start Date End Date Ibeth Lassiter MD 230 [place] [address] PCP - General Family Medicine 12/16/21 10/01/24 Amber Marie FNP 230 [place] [address] PCP - General Family Medicine 10/02/24 10/08/24 Bailee Lewis MD 230 [place] [address] PCP - General Family Medicine 10/09/24 10/12/24 Ibeth Lassiter MD 505 [place] [address] PCP - General Family Medicine 10/13/24 11/13/24 Bailee Lewis MD 230 [place] [address] PCP - General Family Medicine 11/14/24 Simi Kauffman, EL 505 [place] [address] Registered Nurse Family Medicine 03/06/25 Adriana Brand 03/06/25 documented as of this encounter
--- OUTSIDE RECORDS SUMMARY | 2025-05-03 00:11 | XMS_ITS | Encounter Summary ---
Author Organization [employer] Address 75 [facility] 7t [place] [address] Care Team Providers Care Sheet Metal Technician Name Role Phone Bailee Lewis MD Primary Care Provider [phone] Simi Kauffman RN Unavailable [phone] Adriana Brand Unavailable Reason for Visit * Reason Onset Date Comments Med Refill 12/04/2024 Encounter Details Date Type Department Care Team (Late st Contact Info) Description 12/04/2024 Telephone [facility] MEDICINE 230 [place], [place] [phone] Bailee Lewis MD 230 [place], [place] [phone] Med Refill Social History Tobacco Use Types [...] with others, in a hotel, in a correction, living outside on the street, on a [...] encounter Miscellaneous Notes * Telephone Encounter - Jeaneth Pacheco LPN - 12/04/2024 11:42 AM EDT Please review medication is not pended [facility] 7.3.25 and last filled 6.4.25 and ordered by Arturo Gayle [facility] * Telephone Encounter - Omsan García - 12/04/2024 11:35 AM EDT TC from pt requesting medication refill. Medications needing refill : pregabalin (Lyrica) 300 MG capsule To be sent to: [id number] - [place], [place] - [address] [facility] documented in this encounter Plan of Treatment Upcoming Encounters Date Type Department Care Team (Late st Contact Info) Description 05/04/2025 11:00 AM EST Office Visit [address] [address] 05/05/2025 9:00 AM EST Clinical Support [address] [address] Ena Grant RN 05/07/2025 2:00 PM EST Office Visit [address] [address] Claudia Ansari MD [address] [place] [address] documented as of this encounter Visit Diagnoses Not on filedocumented in this encounter Additional Health Concerns Assessment Noted Time PHQ-9 Depression Total Score: 16 025 9:43 AM EDT documented as of this encounter Care Teams Sheet Metal Technician Relationship Specialty Start Date End Date Bailee Lewis MD [address] [place] [address] PCP - General Family Medicine 11/14/24 Simi Kauffman RN [address] [place] [address] Registered Nurse Family Medicine 03/06/25 Adriana Brand 03/06/25 documented as of this encounter
--- OUTSIDE RECORDS SUMMARY | 2025-05-03 00:11 | XMS_ITS | Encounter Summary ---
Author Organization [employer] Address [address] [place] [address] 7t [place] [address] Care Team Providers Care Hospice Spiritual Care Coordinator Name Role Phone Ibeth Lassiter MD Primary Care Provider [phone] Amber Marie Primary Care Provider [phone] Bailee Lewis MD Primary Care Provider [phone] Ibeth Lassiter MD Primary Care Provider [phone] Bailee Lewis MD Primary Care Provider [phone] Simi Kauffman RN Unavailable Adriana Brand Unavailable Reason for Visit * Reason Onset Date Comments Call Back Request 11/06/2023 Encounter Details Date Type Department Care Team ([facility] Contact Info) Description 11/06/2023 Telephone [facility] MED & PEDS 505 [place], [place] [phone] Ibeth Lassiter MD 505 [place], [place] [phone] Call Back Request Social History Tobacco Use [...] down Nearly every day 11/08/2023 3:55 PM RAFITAT Ibeth Lassiter MD Trouble concentrating on things, [...] way Not at all 11/08/2023 3:55 PM RAFITAT Ibeth Lassiter MD Patient Health Questionnaire-9 Score [...] to discuss removal. Please contact pt at [phone] documented in this encounter Plan of Treatment Upcoming Encounters Date Type Department Care Team (Late st Contact Info) Description 05/04/2025 11:00 AM EST Office Visit [address] [address] 05/05/2025 9:00 AM EST Clinical Support [address] [address] Ena Grant RN 05/07/2025 2:00 PM EST Office Visit [address] [address] Claudia Ansari MD [address] [place] [address] documented as of this encounter Visit Diagnoses Not on filedocumented in this encounter Additional Health Concerns Assessment Noted Time PHQ-9 Depression Total Score: 14 023 10:26 AM EDT documented as of this encounter Care Teams Hospice Spiritual Care Coordinator Relationship Specialty Start Date End Date Ibeth Lassiter MD [address] [place] [address] PCP - General Family Medicine 12/16/21 10/01/24 Amber Marie FNP 230 [place] [address] PCP - General Family Medicine 10/02/24 10/08/24 Bailee Lewis MD 230 [place] [address] PCP - General Family Medicine 10/09/24 10/12/24 Ibeth Lassiter MD [address] [place] [address] PCP - General Family Medicine 10/13/24 11/13/24 Bailee Lewis MD [address] [place] [address] PCP - General Family Medicine 11/14/24 Simi Kauffman RN [address] [place] [address] [place] [address] Registered Nurse Family Medicine 03/06/25 Adriana Brand 03/06/25 documented as of this encounter
--- OUTSIDE RECORDS SUMMARY | 2025-05-03 00:11 | XMS_ITS | Encounter Summary ---
Author Organization [employer] Address 75 [facility] 7t [place] [address] Care Team Providers Care Immigration Case Manager Name Role Phone Bailee Lewis MD Primary Care Provider [phone] Simi Kauffman RN Unavailable [phone] Adriana Brand Unavailable Encounter Details Date Type Department Care Team (Late st Contact Info) Description 04/27/2025 Orders Only [facility] MEDICINE 230 [place], [place] [phone] Bailee Lewis MD 230 [place] [address] Alcohol-induced chronic pancreatitis (CMS/HCC) (HCC) (Primary Dx) Social History Tobacco Use Types [...] Description 05/04/2025 11:00 AM EST Office Visit [address] [address] 05/05/2025 9:00 AM EST Clinical Support [address] [address] Ena Grant, EL 05/07/2025 2:00 PM EST Office Visit [address] [address] Claudia Ansari MD [address] [place] [address] documented as of this encounter Visit Diagnoses Diagnosis Alcohol-induced chronic pancreatitis (CMS/HCC) (HCC)- Primary Chronic pancreatitis documented in this encounter Additional Health Concerns Assessment Noted Time PHQ-9 Depression Total Score: 17 025 8:35 AM EDT documented as of this encounter Care Teams Immigration Case Manager Relationship Specialty Start Date End Date Bailee Lewis MD [address] [place] [address] PCP - General Family Medicine 11/14/24 Simi Kauffman RN [address] [place] [address] Registered Nurse Family Medicine 03/06/25 Adriana Brand 03/06/25 documented as of this encounter
--- OUTSIDE RECORDS SUMMARY | 2025-05-03 00:11 | XMS_ITS | Encounter Summary ---
Author Organization [employer] Address 75 [facility] 7t [place] [address] Care Team Providers Care Interpreter Translator Name Role Phone Bailee Lewis MD Primary Care Provider [phone] Simi Kauffman RN Unavailable [phone] Adriana Brand Unavailable Reason for Visit * Reason Onset Date Comments Med Refill 05/01/2025 Encounter Details Date Type Department Care Team (Late st Contact Info) Description 05/01/2025 Refill [facility] MEDICINE 230 [place], [place] [phone] Bailee Lewis MD 230 [place] [address] Alcohol-induced chronic pancreatitis (CMS/HCC) (HCC) Social History Tobacco Use Types Packs/Day Years [...] with others, in a hotel, in a residential, living outside on the street, on a [...] Description 05/04/2025 11:00 AM EST Office Visit [address] [address] 05/05/2025 9:00 AM EST Clinical Support [address] [address] Ena Grant RN 05/07/2025 2:00 PM EST Office Visit [address] [phone] Claudia Ansari MD [address] [place] [address] documented as of this encounter Visit Diagnoses Diagnosis Alcohol-induced chronic pancreatitis (CMS/HCC) (HCC) Chronic pancreatitis documented in this encounter Additional Health Concerns Assessment Noted Time PHQ-9 Depression Total Score: 17 025 8:35 AM EDT documented as of this encounter Care Teams Interpreter Translator Relationship Specialty Start Date End Date Bailee Lewis MD 230 [place] [address] PCP - General Family Medicine 11/14/24 Simi Kauffman RN [address] [place] [address] Registered Nurse Family Medicine 03/06/25 Adriana Brand 03/06/25 documented as of this encounter
--- OUTSIDE RECORDS SUMMARY | 2025-05-03 00:11 | XMS_ITS | Encounter Summary ---
Author Organization [employer] Address [address] [place] [address] 7t [place] [address] Care Team Providers Care Manager Of Operations Name Role Phone Ibeth Lassiter MD Primary Care Provider [phone] Amber Marie Primary Care Provider [phone] Bailee Lewis MD Primary Care Provider [phone] Ibeth Lassiter MD Primary Care Provider [phone] Bailee Lewis MD Primary Care Provider [phone] Simi Kauffman RN Unavailable [phone] Adriana Brand Unavailable Reason for Visit * Reason Onset Date Comments Med Refill 12/14/2023 Encounter Details Date Type Department Care Team ([facility] st Contact Info) Description 12/14/2023 Refill [facility] MED & PEDS [address] [place] [address] Ibeth Lassiter MD 505 [place], [place] [phone] Acute necrotizing pancreatitis Social History Tobacco Use [...] Description 05/04/2025 11:00 AM EST Office Visit [address] [address] 05/05/2025 9:00 AM EST Clinical Support [address] [address] Ena Grant RN 05/07/2025 2:00 PM EST Office Visit [address] [address] Claudia Ansari MD [address] [place] [address] documented as of this encounter Visit Diagnoses Diagnosis Acute necrotizing pancreatitis Acute pancreatitis documented in this encounter Additional Health Concerns Assessment Noted Time PHQ-9 Depression Total Score: 24 024 3:55 PM EDT documented as of this encounter Care Teams Manager Of Operations Relationship Specialty Start Date End Date Ibeth Lassiter MD 230 [place] [address] PCP - General Family Medicine 12/16/21 10/01/24 Amber Marie FNP 230 [place] [address] PCP - General Family Medicine 10/02/24 10/08/24 Bailee Lewis MD [address] [place] [address] PCP - General Family Medicine 10/09/24 10/12/24 Ibeth Lassiter MD 505 [place] [address] PCP - General Family Medicine 10/13/24 11/13/24 Bailee Lewis MD [address] [place] [address] PCP - General Family Medicine 11/14/24 Simi Kauffman, EL 505 [place] [address] Registered Nurse Family Medicine 03/06/25 Adriana Brand 03/06/25 documented as of this encounter
--- OUTSIDE RECORDS SUMMARY | 2025-05-03 00:11 | XMS_ITS | Encounter Summary ---
Author Organization [employer] Address [address] [facility] 7t [place] [address] Care Team Providers Care Director Of Patient Financial Services Name Role Phone Ibeth Lassiter MD Primary Care Provider Amber Marie Primary Care Provider Bailee Lewis MD Primary Care Provider [phone] Ibeth Lassiter MD Primary Care Provider [phone] Bailee Lewis MD Primary Care Provider Simi Kauffman RN Unavailable [phone] Adriana Brand Unavailable Reason for Visit * Reason Comments Med Refill Encounter Details Date Type Department Care Team (Late st Contact Info) Description 06/19/2024 Refill [facility] MEDICINE [address] [place] [address] Ibeth Lassiter MD [address] [place], [place] [phone] Alcohol-induced chronic pancreatitis (CMS/HCC) Social History Tobacco [...] Description 05/04/2025 11:00 AM EST Office Visit [address] [address] 05/05/2025 9:00 AM EST Clinical Support [address] [address] Ena Grant RN 05/07/2025 2:00 PM EST Office Visit [address] [address] Claudia Ansari MD [address] [place] [address] documented as of this encounter Visit Diagnoses Diagnosis Alcohol-induced chronic pancreatitis (CMS/HCC) (HCC) Chronic pancreatitis documented in this encounter Additional Health Concerns Assessment Noted Time PHQ-9 Depression Total Score: 025 10:04 AM EST documented as of this encounter Care Teams Director Of Patient Financial Services Relationship Specialty Start Date End Date Ibeth Lassiter MD [address] [place] [address] PCP - General Family Medicine 12/16/21 10/01/24 Amber Marie FNP [address] [place] [address] PCP - General Family Medicine 10/02/24 10/08/24 Bailee Lewis MD [address] [place] [address] PCP - General Family Medicine 10/09/24 10/12/24 Ibeth Lassiter MD [address] [place] [address] PCP - General Family Medicine 10/13/24 11/13/24 Bailee Lewis MD [address] [place] [address] PCP - General Family Medicine 11/14/24 Simi Kauffman, EL [address] [place] [address] Registered Nurse Family Medicine 03/06/25 Adriana Brand 03/06/25 documented as of this encounter
--- OUTSIDE RECORDS SUMMARY | 2025-05-03 00:12 | XMS_ITS | Encounter Summary ---
Author Organization [employer] Address [address] [place] [address] 7t [place] [address] Care Team Providers Care Low Emission Automobile Designer Name Role Phone Bailee Lewis MD Primary Care Provider [phone] Simi Kauffman RN Unavailable [phone] Adriana Brand Unavailable Reason for Visit * Reason Onset Date Comments Hospital Follow-up 04/22/2025 Encounter Details Date Type Department Care Team (Late st Contact Info) Description 04/22/2025 Telephone [facility] MEDICINE [address] [place], [place] [phone] Bailee Lewis MD [address] [place], [place] [phone] Hospital Follow-up Social History Tobacco Use Types Packs/Day Years [...] with others, in a hotel, in a assisted, living outside on the street, on a [...] encounter Miscellaneous Notes * Telephone Encounter - Osman Ricky - 04/22/2025 8:38 AM EST Tc from pt requesting a HDF appt. Hospital: [facility] Date of admission: 04/13 Discharge date: 04/22 Diagnosed: Chronic pancreatitis *Send message to [place] Clinical Care Coordinators Contact pt at [phone] documented in this encounter Plan of Treatment Upcoming Encounters Date Type Department Care Team (Late st Contact Info) Description 05/04/2025 11:00 AM EST Office Visit [address] [address] 05/05/2025 9:00 AM EST Clinical Support [address] [address] Ena Grant RN 05/07/2025 2:00 PM EST Office Visit [address] [address] Claudia Ansari MD [address] [place] [address] documented as of this encounter Visit Diagnoses Not on filedocumented in this encounter Additional Health Concerns Assessment Noted Time PHQ-9 Depression Total Score: 17 025 8:35 AM EDT documented as of this encounter Care Teams Low Emission Automobile Designer Relationship Specialty Start Date End Date Bailee Lewis MD [address] [place] [address] PCP - General Family Medicine 11/14/24 Simi Kauffman, EL [address] [place] [address] Registered Nurse Family Medicine 03/06/25 Adriana Brand 03/06/25 documented as of this encounter
--- OUTSIDE RECORDS SUMMARY | 2025-05-03 00:12 | XMS_ITS | Encounter Summary ---
Author Organization [employer] Address [address] [facility] 7t [place] [address] Care Team Providers Care Auto Cleaner Name Role Phone Bailee Lewis MD Primary Care Provider [phone] Simi Kauffman RN Unavailable [phone] Adriana Brand Unavailable Reason for Visit * Reason Onset Date Comments Call Back Request 04/08/2025 Encounter Details Date Type Department Care Team (Late st Contact Info) Description 04/08/2025 Telephone [facility] MEDICINE [address] [place], [place] [phone] Bailee Lewis MD [address] [place] [address] Call Back Request Social History Tobacco Use [...] Miscellaneous Notes * Telephone Encounter - Osman García - 04/08/2025 12:06 PM EST Tc from Alex A ACCOUNTS RECEIVABLE COLLECTOR [facility] requesting a call back regarding some medication question after pt being discharge and continuity of care. Contact alex at [phone] Or [phone] documented in this encounter Plan of Treatment Upcoming Encounters Date Type Department Care Team (Late st Contact Info) Description 05/04/2025 11:00 AM EST Office Visit [address] [address] 05/05/2025 9:00 AM EST Clinical Support [address] [address] Ena Grant RN 05/07/2025 2:00 PM EST Office Visit [address] [address] Claudia Ansari MD [address] [place] [address] documented as of this encounter Visit Diagnoses Not on filedocumented in this encounter Additional Health Concerns Assessment Noted Time PHQ-9 Depression Total Score: 17 025 8:35 AM EDT documented as of this encounter Care Teams Auto Cleaner Relationship Specialty Start Date End Date Bailee Lewis MD [address] [place] [address] PCP - General Family Medicine 11/14/24 Simi Kauffman, EL [address] [place] [address] Registered Nurse Family Medicine 03/06/25 Adriana Brand 03/06/25 documented as of this encounter
--- OUTSIDE RECORDS SUMMARY | 2025-05-03 00:12 | XMS_ITS | Clinical Summary ---
Author Organization [facility] Address [address] [place] [address] Care Team Providers Care Greaser Operator Name Role Phone Valeria Tao MD Primary [...] in-home therapist who has been assigned by [facility] to her child for bipolar disorder [...] will plan for transfusion of 2U at [facility] once labs return. Repeat H/H on day [...] (02/20/2020 3:27 AM EDT): He did not flower picker her doxylamine-pyridoxine after our last clinic [...] NOT DETECTED 04/26/2020 NEISSERIAGO NOT DETECTED 04/26/2020 [id number] Non-Reactive 12/16/2019 SYPHILISABSI Non-Reactive 12/16/2019 VARICELLAZO 349.30 [...] and ineffective epidural, and BTL. Will need OB-DRAFTER AUTOMOTIVE DESIGN consult and consent form signed (needs to [...] reports being told at the ER in [place] that she has hyperthyroidism, Low TSH and [...] Health Maintenance Due Date Last Done Comments Pap Smear 1995 Alcohol/Substance Use Screening 06/04/2024 Influenza Vaccine (#1) 2025 4, 04/04/2011, 07/23/2009, Additional history exists COVID-19 Vaccine ( season) 2025 DTaP,Tdap,and Td Vaccines (11 - Td or Tdap) 03/31/2030 03/31/2020, 11/19/2018, 04/09/2017, Additional history exists Hepatitis B Vaccines Completed 02/12/1996, 1995, 1995 Varicella Vaccines Completed 07/08/2008, 08/04/1996 HIV Screening Completed 12/16/2020, 12/02, 04/15/2018 Pneumococcal Vaccine: Pediatric (0-5 Years) and At-Risk Patients (6-50 Years) Aged Out No longer eligible based on patient's age to complete this topic Insurance [facility] Advance Directives Documents on File Type Date Recorded Patient Seafood Specialist Expl [facility] Health Care Proxy 05/23/2020 11:21 AM * Full Code (Latest Code Status on File) Date Activated Date Inactivated Comments 05/22/2020 3:09 AM 05/24/2020 2:07 PM * Full Code Date Activated Date Inactivated Comments 05/21/2020 4:07 PM 05/22/2020 3:09 AM Care Teams Greaser Operator Relationship Specialty Start Date End Date Valeria Tao MD [address] [place] [address] PCP - General 12/01/24
--- NOTE | 2025-05-03 00:59 | PC.NURSE ---
pt threw up, feeling nauseaus. awaiting provider to see her.
--- NOTE | 2025-05-03 01:49 | ED.GENADULT ---
HPI - General Adult General Chief complaint: Abdominal Pain Stated complaint: VOMITING,PT STS PANCREATITIS FLARE PER EMS Time Seen by Provider: 05/03/25 01:49 History of Present Illness ED Provider: Derrell MOROCHO narrative: The patient is a 29-year-old female who states that she has a history of chronic pancreatitis. She says that 3 days ago she started to feel like she could not eat any food. Today she developed epigastric discomfort and began vomiting. She says she has vomited several times today. She ultimately came to the emergency room. The patient has been hospitalized multiple times in the last few months, primarily at [facility]. The patient was hospitalized from February 02 through February 05, and then from March 12 through March 19, and then from March 23 through April 09, and most recently from April 15 through April 22, 11 days ago. At these hospitalizations it seems as though the patient's baseline narcotic use has gone up with increasing doses of oral Dilaudid as an outpatient being prescribed at discharge. Additionally the patient has also been advised to use buprenorphine with hydromorphone, and also pregabalin. The patient says that she has not been taking the buprenorphine however. No fever, sweats, chills. The the patient's local lamp decorator has been Dr. Javan Abraham. The patient has been referred to additional specialty lamp decorator at [facility] in [place] with consideration for possible placement of a pancreatic stent. The patient says that she has been seen in [place] and that there is a plan for her to have a procedure. She says she is waiting to hear from the gastroenterology office in [place] for the date of the procedure. Related Data Home Medications ?Medication ?Instructions ?Recorded ?Confirmed hydroxyzine pamoate 50 mg capsule 50 mg PO Q6H PRN anxiety 07/05/24 01/11/25 morphine 15 mg tablet,extended 15 mg PO BID 12/24/24 01/11/25 release oxycodone 10 mg tablet 10 mg PO Q8H 12/24/24 01/11/25 pregabalin 300 mg capsule 300 mg PO BID 12/24/24 01/11/25 sertraline 100 mg tablet 100 mg PO DAILY 12/24/24 01/11/25 Previous Rx's ?Medication ?Instructions ?Recorded rfwdnm-fxvoktql-odnypp(pork)24,000-76,000-120,000 1 cap PO TIDWM #270 caps 07/18/24 unit capsule,del rel (Creon) Allergies Allergy/AdvReac Type Severity Reaction Status Date / Time No Known Allergies Allergy Verified 05/02/25 23:31 Review of Systems Review of Systems: Yes all other systems are reviewed and are negative [facility] Past Medical History Medical History Chronic pancreatitis Alcohol abuse Necrotizing pancreatitis Benign tumor of breast Alcohol abuse Asthma Anxiety Surgical History No history of previous surgery Social History Social History Household Members: Family Housing: House Do you presently have visiting nurse or other home services: No Alcohol intake: former Patient Tobacco Use Status: Never used Tobacco Substance Use Type: Prescription Drugs service: No Physical Exam ED Vital Signs: Vital Signs - 24 hr 05/02/25 23:29 05/03/25 02:17 05/03/25 04:42 Temperature 98.1 F 98.5 F 97.9 F Pulse Rate 94 93 88 Respiratory Rate 18 16 16 Blood Pressure 113/63 119/78 115/73 Pulse Oximetry 96 97 Oxygen Delivery Method Room Air Room Air Room Air BMI result Body Mass Index 26.6 Const Other: The patient is awake and alert. She has a sad affect but does not seem obviously acutely ill although she says she is in a lot of discomfort. Orientation/consciousness: patient oriented x3 HENMT Other: The face is symmetrical. ?Mucous membranes moist. Eyes Other: Pupils are round equal, conjunctivae are clear, extraocular movements intact Neck Neck: Yes normal visual inspection and Yes full ROM Resp Effort & Inspection: normal respiratory effort Auscultation: clear to auscultation bilaterally Cardio Rate: regular rate Rhythm: regular rhythm Heart sounds: S1 normal heart sound present and S2 normal heart sound present GI Other: The patient reports tenderness in the epigastrium with the palpation. Skin Other: The skin is dry and unremarkable Neuro General: patient oriented x3, tone normal, moves all extremities, no focal motor deficits and CN's II-XI intact bilaterally Extrem Other: There is no calf swelling or tenderness. No asymmetry. No peripheral edema. Medications Administered Generic Name Dose Route Start Last Admin Trade Name Freq PRN Reason Stop Dose Admin Lactated Ringer's 1,000 mls @ 999 mls/hr 05/03/25 07:00 05/03/25 06:50 Lr IV 05/03/25 08:00 999 mls/hr .Q1H1M TRUONG Administration Discontinued Medications Generic Name Dose Route Start Last Admin Trade Name Nahun LANDRYN Reason Stop Dose Admin Diphenhydramine HCl 25 mg 05/03/25 02:19 05/03/25 02:38 Diphenhydramine Hcl 50 Mg/Ml Vial IVPUSH 05/03/25 02:20 25 mg ONCE ONE Administration Droperidol 2.5 mg 05/03/25 02:17 05/03/25 02:38 Droperidol 5 Mg/2 Ml Vial IVPUSH 05/03/25 02:18 2.5 mg ONCE ONE Administration Droperidol 1.25 mg 05/03/25 03:32 05/03/25 03:46 Droperidol 5 Mg/2 Ml Vial IVPUSH 05/03/25 03:33 1.25 mg ONCE ONE Administration Famotidine 20 mg 05/03/25 02:47 05/03/25 02:57 Famotidine/Pf 20 Mg/2 Ml Vial IVPUSH 05/03/25 02:48 20 mg ONCE ONE Administration Hydromorphone HCl 4 mg 05/03/25 02:48 05/03/25 02:57 Hydromorphone Hcl 2 Mg Tablet PO 05/03/25 02:49 4 mg ONCE ONE Administration Hydromorphone HCl 4 mg 05/03/25 03:30 05/03/25 03:46 Hydromorphone Hcl 2 Mg Tablet PO 05/03/25 03:31 4 mg ONCE ONE Administration Hydromorphone HCl 4 mg 05/03/25 06:14 05/03/25 07:04 Hydromorphone Hcl 2 Mg Tablet PO 05/03/25 06:15 4 mg ONCE ONE Administration Sodium Chloride 1,000 mls @ 999 mls/hr 05/03/25 02:00 05/03/25 03:46 Ns IV 05/03/25 03:00 Infused .Q1H1M TRUONG Infusion Lactated Ringer's 1,000 mls @ 999 mls/hr 05/03/25 03:45 05/03/25 05:01 Lr IV 05/03/25 04:45 Infused .Q1H1M TRUONG Infusion Ketorolac Tromethamine 15 mg 05/03/25 02:19 05/03/25 02:44 Ketorolac Tromethamine 15 Mg/Ml Vial IVPUSH 05/03/25 02:20 Not Given ONCE ONE Sucralfate 1 gm 05/03/25 02:47 05/03/25 02:57 Sucralfate 1 Gm Tablet PO 05/03/25 02:48 1 gm ONCE ONE Administration Procedures EJ/Peripheral Line Arm L: Skin Cleansed in Sterile Fashion: Yes Size (gauge): 20 IV Secured and Dressing Applied: Yes Patient Tolerated Procedure: well and no complications Additional Comments: Placed under ultrasound guidance. Placement confirmed by draw back and flush with intravascular flash identified on ultrasound. Medical Decision Making Medical Decision Making [facility] Narrative: The patient is a 29-year-old female who presents with a complaint of upper abdominal pain that she says is typical of her chronic pancreatitis syndrome. She has a history of previous alcoholism. She says she has not time but continues to have problems with chronic pains. She is maintained on high doses of narcotics. She has been hospitalized multiple times at [facility] in the last few months (4 times since February 02 of this year). She has a apparently been referred to a specialist lamp decorator at [facility] in [place] for a possible pancreatic stent or similar procedure. The patient presents saying that she has had multiple episodes of vomiting today and that she has not eaten anything significant for about 3 days. The patient has laboratory evaluation shows that there are no ketones in her urine in her specific gravity is less than 1.005. Additionally the patient has a normal white count at 6.9 with a hemoglobin of 13.4, and a platelet count of 305. Differential shows 75% neutrophils. Metabolic panel shows normal electrolytes and unremarkable renal function. No acidosis. The patient is AST and ALT and alk phos are all elevated but this seems to be chronic for the patient. Bilirubins are normal. Lipase is undetectable. test is negative. Urine tox screen is positive for opiates but nothing else. ETOH level is negative. The patient was treated with IV fluids and droperidol. I ordered ketorolac but the patient refused this, saying the medication was not helpful. The patient was given oral hydromorphone instead. Because of the patient's somewhat higher transaminases his an alk phos today a limited ultrasound of the right upper quadrant was done that shows no significant change. Hepatic steatosis is present. No acute findings otherwise. The patient received a total of three liters of crystalloid. My overall impression is that the patient has complaints seem very chronic. When she left [facility] 11 days ago she has been given a prescription for 16mg of oral hydromorphone every 4 hours. This is an extraordinary dose of hydromorphone. The patient fill this prescription on April 22. The patient subsequently followed up with her PCP who prescribed additional hydromorphone at a lesser dose. The patient received a prescription for 42 tablets of hydromorphone 4 mg each 6 days ago on April 27. This was a 1 week supply, implying that the patient should be taking 4 mg of hydromorphone every 4 hours. This is a significant reduction in dose. Apparently a plan had also been devised for the patient to take buprenorphine simultaneously with hydromorphone. I can't say the understand the rationale for this regimen but the patient tells me she is not taking the buprenorphine. In the emergency room today the patient was given droperidol and diphenhydramine for nausea. I was somewhat surprised that the patient was not significantly sedated with 2.5 mg of droperidol, even after this was repeated. The patient was given oral doses of hydromorphone but no IV hydromorphone. Given the absence of ketones, the absence of an elevated white count or or any vital sign abnormalities I do not see an indication for rehospitalization. The patient has had multiple hospitalizations in the last few months for the same complaint. At this point there seems to be some kind of possible plan for an intervention in [place]. I explained to the patient that given her unremarkable workup in the emergency room today I do not see an indication for another hospitalization. She will be discharged with instructions to follow up with her PCP for ongoing pain management and to follow up with her specialist in [place]. Lab Data 05/03/25 02:35 05/03/25 02:35 Labs: Lab Results 05/03/25 05/03/25 Range/Units 02:35 04:55 WBC 6.9 (4.8-10.8) X10*3/uL RBC 5.22 D (4.20-5.50) X10*6/uL Hgb 13.4 D (12.0-16.0) g/dl Hct 42.2 D (37.0-47.0) % MCV 80.8 (80.0-98.0) fL MCH 25.7 L (27.0-33.0) pg MCHC 31.8 (31.0-35.0) g/dl RDW 15.6 (11.0-16.0) % Plt Count 305 D (160-400) X10*3/uL MPV 10.1 (9.4-12.3) fL Immature Gran % (Auto) 0.3 (0.0-0.4) % Neut % (Auto) 74.7 H (45-73) % Lymph % (Auto) 20.9 (20-40) % [place] % (Auto) 3.3 (2-11) % Eos % (Auto) 0.4 (0-4) % Baso % (Auto) 0.4 (0-2) % Lymph # (Auto) 1.4 (1.2-4.9) X10*3/uL [place] # (Auto) 0.2 (0.1-1.2) X10*3/uL Eos # (Auto) 0.0 (0.0-0.4) X10*3/uL Baso # (Auto) 0.0 (0.0-0.2) X10*3/uL Abs Immat Gran (auto) 0.02 (0.00-0.03) X10*3/uL Absolute Neuts (auto) 5.2 (2.0-8.3) x10*3/uL Absolute Nucleated RBC 0.000 (0.0-0.012) X10*3/uL Nucleated RBC % (auto) 0.0 (0.0-0.2) /100WBC Sodium 142 (135-145) mmol/L Potassium 3.3 (3.3-5.1) mmol/L Chloride 106 (96-108) mmol/L Carbon Dioxide 25 (22-29) mmol/L Anion Gap 14 (12-20) BUN 4 L (9-16) mg/dL Creatinine 0.61 (0.5-1.4) mg/dL Estim Creat Clear Calc 135.8 Estimated GFR > 60 Random Glucose 107 (60-115) mg/dL Calcium 9.4 D (8.4-10.2) mg/dL Magnesium 1.9 (1.6-2.6) mg/dL Total Bilirubin 0.4 (0.0-1.0) mg/dL Direct Bilirubin 0.2 (0.0-0.5) mg/dL AST 195 H (5-31) U/L ALT 187 H (0-31) U/L Alkaline Phosphatase 237 H (39-117) U/L Total Protein 7.6 (6.5-8.0) g/dL Albumin 5.0 (3.5-5.0) g/dL Lipase < 4 L (8-78) U/L Beta HCG, Quant < 2 mIU/mL Urine Color Yellow Urine Appearance Clear Urine pH >= 9.0 (5.0-9.0) Ur Specific [place] <= 1.005 (1.005-1.025) Urine Protein Negative (Neg-Trace) mg/dL Urine Glucose (UA) Negative (Negative) mg/dL Urine Ketones Negative (Negative) mg/dL Urine Blood Negative (Negative) Urine Nitrite Negative (Negative) Ur Leukocyte Esterase Negative (Negative) Urine Opiates Screen POSITIVE H (Not Detect) Ur Buprenorphine Scrn Not Detected (Not Detect) ng/mL Ur Oxycodone Screen Not Detected (Not Detect) ng/mL Urine Methadone Screen Not Detected (Not Detect) ng/mL Urine Fentanyl Screen Not Detected (Not Detect) Ur Barbiturates Screen Not Detected (Not Detect) Ur Phencyclidine Scrn Not Detected (Not Detect) Ur Amphetamines Screen Not Detected (Not Detect) U Benzodiazepines Scrn Not Detected (Not Detect) Urine Cocaine Screen Not Detected (Not Detect) U Marijuana (THC) Screen Not Detected (Not Detect) Ethyl Alcohol < 10 mg/dL Discharge Plan Discharge Clinical Impression: Abdominal pain Patient Disposition: Home, Self-Care Additional Instructions: Please continue your current medications. Follow up with your regular doctor tomorrow. Prescriptions: No Action hydroxyzine pamoate 50 mg capsule 50 mg PO Q6H PRN (Reason: anxiety) Creon 24,000-76,000 -120,000 unit Capsule,Delayed Release(Dr/Ec) 1 cap PO TIDWM Qty: 270 0RF sertraline 100 mg tablet 100 mg PO DAILY pregabalin 300 mg capsule 300 mg PO BID oxycodone 10 mg tablet 10 mg PO Q8H morphine 15 mg tablet extended release 15 mg PO BID Referrals: Bailee Lewis MD [Physician, Internal Medicine] Print Language: Yakut
[2025-05-03 02:17] VITALS: BP 119/78; PULSE 93; RESP 16; TEMP 36.9
[2025-05-03 02:40] LABS: MANUAL DIFF FLAG NO
[2025-05-03 02:41] LABS: Hematocrit 42.2 % (37.0-47.0); Hemoglobin 13.4 g/dl (12.0-16.0); Imm Gran Abs Auto 0.02 X10*3/uL (0.00-0.03); Imm Gran Pct Auto 0.3 % (0.0-0.4); Lymphocytes Absolute Auto 1.4 X10*3/uL (1.2-4.9); Mean Corpuscular HGB Conc 31.8 g/dl (31.0-35.0); Mean Corpuscular Hemoglobin 25.7 pg (27.0-33.0); Mean Corpuscular Volume 80.8 fL (80.0-98.0); NRBC Abs Auto 0.000 X10*3/uL (0.0-0.012); NRBC Pct Auto 0.0 /100WBC (0.0-0.2); Platelet Count 305 X10*3/uL (160-400); Red Blood Count 5.22 X10*6/uL (4.20-5.50); White Blood Count 6.9 X10*3/uL (4.8-10.8)
[2025-05-03 03:07] LABS: Alanine Aminotransferase 187 U/L (0-31); Albumin Level 5.0 g/dL (3.5-5.0); Alkaline Phosphatase 237 U/L (39-117); Anion Gap 14 (12-20); Aspartate Amino Transferase 195 U/L (5-31); Blood Urea Nitrogen 4 mg/dL (9-16); Calcium 9.4 mg/dL (8.4-10.2); Carbon Dioxide 25 mmol/L (22-29); Chloride 106 mmol/L (96-108); Creatinine Clr Calc Pharmacy 135.8; Estimated Glomerular Filt Rate > 60; Lipase < 4 U/L (8-78); Magnesium 1.9 mg/dL (1.6-2.6); Potassium 3.3 mmol/L (3.3-5.1); Sodium 142 mmol/L (135-145); Total Protein 7.6 g/dL (6.5-8.0)
--- NOTE | 2025-05-03 03:33 | PC.NURSE ---
pt reports abdominal pain increasing. Provider advised, awaiting new orders.
[2025-05-03] MEDS: Lactated Ringers 1,000 ML 999 ML IV ×2 (03:46→06:50)
[2025-05-03 04:42] VITALS: BP 115/73; PULSE 88; RESP 16; TEMP 36.6; O2SAT 97
--- NOTE | 2025-05-03 04:59 | PC.NURSE ---
pt reports pain continues, provider advised, awaiting new orders.
[2025-05-03 05:02] LABS: Appearance Urine Clear; Glucose Urine UA Negative (Negative); PH >= 9.0 (5.0-9.0); Specific Gravity - Urine <= 1.005 (1.005-1.025)
--- NOTE | 2025-05-03 06:20 | PC.NURSE ---
new medication order in for pain. Pt advised. pharmacy confirms they are actively filling this medication as we are out in the pyxus.
[2025-05-03 07:22] LABS: Cannabinoid Screen Urine Not Detected (Not Detect)
[2025-05-03 07:48] VITALS: BP 115/73; PULSE 88; RESP 16; TEMP 36.6; O2SAT 97
--- NOTE | 2025-05-03 07:48 | PC.NURSE ---
LR not complete at DC pt states I do not want to wait for it to finish
== END 2025-05-03 07:49 | disposition home or self-care (01) ==
PROVIDERS: Emergency Provider Emergency Medicine
DX: K86.1 Other chronic pancreatitis (principal); R10.13 Epigastric pain; R11.2 Nausea with vomiting, unspecified; Z51.81 Encounter for therapeutic drug level monitoring; Z79.899 Other long term (current) drug therapy
CPT/HCPCS: 36415; 36556; 76705; 80048; 80076; 80307; 81003; 83690; 83735; 84702; 85025; 86140; 96361; 96374; 96375; 96376; 99284; J1200; J1308; J1790; J7120

== ENCOUNTER → 2025-05-03 05:15 | Outpatient (BNV) | payer MEDICAID, SELFPAY | PROVIDERS: Emergency Provider Emergency Medicine; Visit Provider Radiology Vascular & Interventional Radiology | DX: K76.0 Fatty (change of) liver, not elsewhere classified (principal) | CPT/HCPCS: 76705 ==